=== PATIENT | female | born 1965 | race Caucasian/White ===

== ENCOUNTER → 2016-05-09 | Outpatient (CLI) | payer OTHER ==
[~2016-05-09] MED LIST: ALBINS INH; ALBU1AER9 INH; ALBU1NEB10 INH; ALL180 PO; ALUM-30; AMOX500T PO; AMOX875T PO; ATOR10TA88 PO; CALC500T67 PO; CLOT1CRE12 TOP; CLX20 PO; DEXT15LI10 PO; DEXT40GE PO; DOXY100C76 PO; FLUC150T54 PO; FLVHFA110 INH; FURO-85 PO; GFNSR600 PO; GLGKIT IM; IBUP600T44 PO; IMD/2 PO; INSDGI SC; INSPMPNVLG; LEVO150T9 PO; MAGNSUS5 PO; MULTTAB63 PO; OXGN; PRLSR20 PO; PROM12.57 PO; PSEU30TA20 PO; SALM50AE2 INH; SNG10 PO; SODI0.9S; SULF-183 PO; SULF800T23 PO; TYLOTC500 PO; VNTHFA/IN INH; ZINC1CAP PO; [UNRECOGNIZED DRUG - CODE]; [UNRECOGNIZED DRUG - CODE] PO; [UNRECOGNIZED DRUG - CODE] PO; hydrocortisone cream
--- NOTE | 2016-05-09 12:04 | DIAGNOSTIC IMAGING REPORT ---
CHEST 2 VIEWS ROUTINE CLINICAL HISTORY: ASTHMA dyspnea COMPARISON STUDY: 01/13/2016 FINDINGS: Tracheostomy tube in good position. Central catheter in superior vena cava. Subtle bibasilar interstitial prominence considered chronic. No focal infiltrative process. Lateral projection suggests a possible extreme posterior minimal infiltrate. This may be in the left lower lobe distribution. IMPRESSION: Minimal parenchymal infiltrate medial aspect left lower lobe. Electronically signed by: Benjamin Cheung M.D. 05/09/2016 12:02 PM Dictated Date/Time: 05/09/2016 12:01 PM
== END | disposition home or self-care (01) ==
LOC: C.RADBBURG 00:34
PROVIDERS: ATTEND Internal Medicine
DX: J45.909 Unspecified asthma, uncomplicated (principal)

== ENCOUNTER → 2016-05-17 | Outpatient (CLI) | payer OTHER ==
--- NOTE | 2016-05-17 12:10 | DIAGNOSTIC IMAGING REPORT ---
CHEST 2 VIEWS ROUTINE CLINICAL HISTORY: J20.9 Acute bsqckidqtiN82.9 [id number] dyspnea COMPARISON STUDY: 05/09/2016 FINDINGS: Tracheostomy tube in good position. Central catheter ends. Cava. Lungs are clear. Diaphragms smooth. IMPRESSION: No acute process. Chronic and postoperative change. Electronically signed by: Benjamin Cheung M.D. 05/17/2016 12:09 PM Dictated Date/Time: 05/17/2016 12:08 PM
== END | disposition home or self-care (01) ==
LOC: C.RADBBURG 04:04
PROVIDERS: ATTEND Internal Medicine Pulmonary Disease
DX: J18.9 Pneumonia, unspecified organism (principal)

== ENCOUNTER → 2016-07-30 | Outpatient (CLI) | payer OTHER ==
[~2016-07-30] MED LIST changes: +ALBINS/ INH; +ATOR10TA82 PO; -ATOR10TA88 PO; +CALC-211 PO; +CITA40TA12 PO; +CLOT1CRE80 TOP; +DEXT4CHW64 PO; +DOXY1TAB6 PO; +FEXO1TAB46 PO; +GUAI1TAB55 PO; +LEVO1TAB33 PO; +LEVO1TAB35 PO; +MONT1TAB3 PO; +PRD20 PO; +PRED10TA PO; +SRVDIN60 INH; +[UNRECOGNIZED DRUG - CODE]
== END | disposition home or self-care (01) ==
LOC: C.LABSPEC 10:05
PROVIDERS: ATTEND Physician Assistant
DX: R05 Cough (principal)

== ENCOUNTER → 2016-08-04 | Outpatient (CLI) | payer OTHER ==
[~2016-08-04] MED LIST changes: +INSU1INJ23 SQ; +INSU1SOL SQ
--- NOTE | 2016-08-04 13:05 | DIAGNOSTIC IMAGING REPORT ---
CHEST 2 VIEWS ROUTINE CLINICAL HISTORY: R05 Cough cough COMPARISON STUDY: 05/17/2016 FINDINGS: Tracheostomy tube in good position. Central catheters. Vena cava. Mild chronic basilar interstitial change. Potential small superimposed infiltrate left base. Baseline emphysematous changes present. IMPRESSION: Interstitial infiltrate left base superimposed upon chronic change. Electronically signed by: Benjamin Cheung M.D. 08/04/2016 1:04 PM Dictated Date/Time: 08/04/2016 1:03 PM
== END | disposition home or self-care (01) ==
LOC: C.RAD 12:35
PROVIDERS: ATTEND Physician Assistant
DX: R05 Cough (principal); J84.9 Interstitial pulmonary disease, unspecified

== ENCOUNTER → 2016-09-04 | Outpatient (CLI) | payer OTHER ==
--- NOTE | 2016-09-04 16:43 | MAMMOGRAPHY REPORT ---
BILATERAL DIGITAL SCREENING MAMMOGRAM WITH CAD: 09/04/2016 CLINICAL HISTORY: Routine screening. Patient has no complaints. TECHNIQUE: Bilateral CC and MLO views were obtained. Current study was also evaluated with a Compute r Aided Detection (CAD) system. COMPARISON: Comparison is made to exams dated: 09/02/2015 mammogram, 08/31/2014 mammogram, 08/20/2013 ma mmogram, 08/19/2012 mammogram, 08/14/2011 mammogram, and 08/08/2009 mammogram - [facility] ter. BREAST COMPOSITION: The tissue of both breasts is heterogeneously dense, which may obscure small mas ses. FINDINGS: The parenchymal pattern is similar to prior mammograms. There is a benign rim calcificatio n in the right breast. No suspicious mass, architectural distortion or cluster of suspicious microca lcifications is seen. IMPRESSION: ACR BI-RADS CATEGORY 1: NEGATIVE There is no mammographic evidence of malignancy. A 1 year screening mammogram is recommended. The pa tient will receive written notification of the results. Approximately 10% of breast cancers are not detected with mammography. A negative mammographic report should not delay biopsy if a clinically suggestive mass is present. Tiffani Kerns M.D. ay/:09/04/2016 16:04:02 Plumber: Lashanda Galaviz, [facility] letter sent: Normal 1/2 BI-RADS Code: ACR BI-RADS Category 1: Negative
== END | disposition home or self-care (01) ==
LOC: C.MAMM 15:33
PROVIDERS: ATTEND Internal Medicine
DX: Z12.31 Encounter for screening mammogram for malignant neoplasm of breast (principal)

== ENCOUNTER → 2016-09-10 | Outpatient (CLI) | payer OTHER ==
[2016-09-10 16:47] LABS: PROTHROMBIN TIME (PATIENT) 10.4 SECONDS (9.0-12.0)
[2016-09-10 17:10] LABS: BASO % 0.6 %; BASO ABS # 0.03 K/uL (0-0.2); COMPLETE YES; HEMATOCRIT 38.3 % (37-47); IG% 0.2 %; MEAN CELL VOLUME 102.7 fL (80-100); MEAN CORPUSCULAR HEMOGLOBIN 34.3 pg (25-34); MEAN CORPUSCULAR HGB CONC 33.4 g/dl (32-36); MEAN PLATELET VOLUME 10.1 fL (7.4-10.4); MONO % 6.2 %; PLATELET COUNT 222 K/uL (130-400); RED BLOOD COUNT 3.73 M/uL (4.2-5.4); WHITE BLOOD COUNT 4.83 K/uL (4.8-10.8)
[2016-09-10 17:22] LABS: ALT/SGPT 31 U/L (12-78); AST/SGOT 15 U/L (15-37); BLOOD UREA NITROGEN 23 mg/dl (7-18); BUN/CREATININE RATIO 24.8 (10-20); CALCIUM 9.3 mg/dl (8.5-10.1); CARBON DIOXIDE 33 mmol/L (21-32); CHLORIDE 104 mmol/L (98-107); CREATININE 0.92 mg/dl (0.60-1.20); GLUCOSE 231 mg/dl (70-99); POTASSIUM 5.3 mmol/L (3.5-5.1); SODIUM 140 mmol/L (136-145)
[2016-09-10 17:24] LABS: ALB/GLOB RATIO 0.9 (0.9-2); ALKALINE PHOSPHATASE 104 U/L (45-117)
== END | disposition home or self-care (01) ==
LOC: C.LAB 15:57
PROVIDERS: ATTEND Physician Assistant
DX: Z87.09 Personal history of other diseases of the respiratory system (principal)

== ENCOUNTER 2016-09-19 08:44 | Day surgery (SDC) | payer OTHER ==
[2016-09-19] VITALS (14 sets, daily range): BP systolic 92–129; BP diastolic 56–79; PULSE 47–77; TEMP 36.4–36.8; O2SAT 93–100; Ht 144.8 cm; Wt 63.5 kg
[~2016-09-19] VITALS: Ht 144.8 cm; Wt 63.5 kg
[~2016-09-19 08:44] MED LIST changes: -ALBINS/ INH; -AMOX500T PO; -AMOX875T PO; -ATOR10TA82 PO; -CALC-211 PO; -CITA40TA12 PO; -CLOT1CRE80 TOP; -DEXT4CHW64 PO; -DOXY1TAB6 PO; -FEXO1TAB46 PO; -GUAI1TAB55 PO; -INSU1INJ23 SQ; -INSU1SOL SQ; -LEVO1TAB33 PO; -LEVO1TAB35 PO; -MONT1TAB3 PO; -PRD20 PO; -PRED10TA PO; -SODI0.9S; -SRVDIN60 INH; -SULF-183 PO; -SULF800T23 PO; -VNTHFA/IN INH; -[UNRECOGNIZED DRUG - CODE]; -[UNRECOGNIZED DRUG - CODE] PO
[2016-09-19] MEDS ORDERED: FENTANYL CITRATE 100 MCG 2 ML CARP IV ONE (08:45)
[2016-09-19] MEDS ORDERED: LIDOCAINE HCL 2% LOCAL 50ML VIAL INFIL ONE (08:45)
[2016-09-19] MEDS ORDERED: MIDAZOLAM HCL 1 MG/ML 2ML VIAL IV ONE (08:45)
--- NOTE | 2016-09-19 09:35 | History and Physical ---
History & Physical Date Sep 19, 2016. Chief Complaint This is a 51 y/o female with acute on chronic bronchitis/bronchiectasis with difficulty clearing her thick mucus production. History of Present Illness This is a 51 y/o female with acute on chronic bronchitis/bronchiectasis with difficulty clearing her thick mucus production. She has a history of chronic congestion requiring hospitalizations. The team is attempting bronchoscopic intervention to avoid a hospitalization. Previosuly the patient has grown out in her sputum/respiratory tract: E-coli (drug resistant) Active Problems 1. Acute/Chronic bronchitis 2. Micro Sputum: E-coli, Serratia Marcescens, MRSA Urine: E-coli 3. Anemia 4. Bed wetting 5. Cough 6. Depression 7. Diabetes mellitus 8. Diabetic hypoglycemia 9. Esophageal reflux 10. Generalized osteoarthritis of multiple sites 11. Hypothyroidism 12. Mammogram abnormal 13. Menopausal and perimenopausal disorder 14. Morbid obesity 15. Muscle tension 16. Obstructive sleep apnea 17. Patent foramen ovale Past Medical/Surgical History Medical Problems: (1) ASTHMA, UNSPECIFIED (2) CONGESTIVE HEART FAILURE (3) DIAB UVALDO WO COMPL, TYPE I [JUVENILE TYPE], NOT UNCNTRLD (4) DOWN'S SYNDROME (5) SOB (shortness of breath) Additional History Hepatic Disease: No Endocrine Disorder: Yes Kidney Disease: No Hypertension: No Heart Disease: No Bleeding Tendencies: No Infectious Diseases: Yes Allergies Coded Allergies: Cefaclor (Verified Allergy, Unknown, HIVES, 06/08/16) TOLERATED ZOSYN IN PAST ADMISSION AND 05/17/15 Cephalosporins (Verified Allergy, Unknown, unknown, 06/08/16) TOLERATED ZOSYN IN PAST ADMISSION AND 05/17/15 Sertraline (Verified Allergy, Unknown, INTOLERANCE, 06/08/16) Home Medications Scheduled Albuterol (Proair Hfa), 2 PUFF INH QID PRN Albuterol 0.083% Soln (Ventolin 0.083% Soln *), 1 AMP INH TID Albuterol Sulf (Albuterol Sulfate 0.083% For Inh), 3 ML INH TID Alum & Mag Hydrox-Simethicone (Mylanta), 4 TSP UD Calcium Carbonate-Vitamin D (Oyst-Eliceo-D 500), 1 TAB PO TID Citalopram (Celexa *), 40 MG PO QPM Doxycycline Monohydrate (Monodox), 100 MG PO UD Fexofenadine Hcl (Danielle *), 180 MG PO QAM Fluticasone Propionate (Flovent Hfa 110MCG Inhaler *), 2 PUFF INH BID Guaifenesin (Diabetic Tussin), 1 DOSE cough Guaifenesin Ext Rel (Mucinex Ext Rel *), 600 MG PO BID Home O2 Therapy (Oxygen), 4 LITERS NA PRN Insulin Aspart (novoLOG INSULIN PUMP ), 1 EA N/A UD Levothyroxine Sodium (Levothyroxine Sodium), 150 MCG PO QAM Montelukast (Singulair *), 10 MG PO HS Multiple Vitamins W/ Minerals (Therems M), 1 TAB PO QAM Omeprazole (Prilosec), 20 MG PO QAM Salmeterol Xinafoate Inh (Serevent Diskus Inh), 1 PUFF INH BID Sodium Fluoride (Dental) (Phos-Flur), 0.5 OZ PO HS Zinc Sulfate (Zinc Sulfate), 220 MG PO BID Scheduled PRN Acetaminophen (Tylenol), 1,000 MG PO Q6H PRN for Pain Clotrimazole Vaginal (Clotrimazole), 1 APPLN TOP TID PRN for IRRITAION AROUN TUBE Dextrose (Diabetic Use) (Dex4 Glucose), 1 TAB PO DAILY PRN for LOW BLOOD SUGAR Dextrose (Diabetic Use) (Insta-Glucose), 1 TUBE PO DAILY PRN for LOW BLOOD SUGAR Fluconazole (Diflucan), 150 MG PO DIRECTED PRN for UNKN Furosemide (Lasix), 20 MG PO DAILY PRN for WEIGHT GAIN Glucagon (Glucagon Emergency Kit), 1 MG IM for UNRESPONSIVE Ibuprofen (Motrin), 600 MG PO TID PRN for Pain Insulin Glargine (Lantus), 0 SC AMPM PRN for INSULIN PUM MALFUNCTION Loperamide Hcl (Imodium), 2 MG PO UD PRN for Diarrhea Magnesium Hydroxide (Milk Of Magnesia), 30 ML PO Q12 PRN for Constipation Promethazine (Phenergan ), 12.5 MG PO Q8 PRN for Nausea or Vomiting Pseudoephedrine (Sudafed), 30 MG PO Q4H PRN for runny nose [hydrocortisone cream], 1 APPLN UD PRN for rash Physical Examination Skin: warm/dry, no rash Eyes: normal inspection, EOMI, sclerae normal ENT: + pertinent finding (metal Antonio renee traceh in place) Head: normocephalic, atraumatic Neck: supple, no adenopathy, trachea midline Respiratory/Chest: lungs clear, normal breath sounds, no respiratory distress Cardiovascular: regular rate, rhythm, no edema, no murmur Abdomen / GI: normal bowel sounds, non tender Back: normal inspection Extremities: normal inspection, normal range of motion Neurologic/Psych: no motor/sensory deficits, alert, normal reflexes, oriented x 3 ASA Classification: ASA Class III Plan of Treatment Bronchoscopy with BAL
--- NOTE | 2016-09-19 09:41 | History & Physical Bridge Note ---
H&P Re-Evaluation Bridge Note: I have examined the patient, reviewed the History & Physical and in the interval since the performance of the History & Physical I have noted the following changes of clinical significance: No changes noted
--- NOTE | 2016-09-19 09:47 | Procedure Note ---
Pre-Mod Sedation Assessment General Date of Moderate Sedation: Sep 19, 2016. Review Cardiovascular: regular rate, rhythm, no edema, no gallop, no JVD, no murmur Abdomen: normal bowel sounds, non tender, soft, no organomegaly, no pulsatile mass Lungs: chest non-tender, + pertinent finding (decreased BS bilaterally ) Pre-Sedation Airway Assessment Smoking Status: Never Smoker Notes The planned sedation has been discussed with the patient and consent obtained. I have identified the patient, determined the appropriateness of sedation and have assessed the patient immediately prior to the procedure. All medicine(s) and interventions are by my order.
[2016-09-19] MEDS ORDERED: ATOR10TA88 PO (09:53)
[2016-09-19] MEDS ORDERED: SULF800T23 PO (09:57)
[2016-09-19] MEDS ORDERED: AMOX875T PO (09:57)
[2016-09-19] MEDS ORDERED: AMOX500T PO (09:57)
[2016-09-19] MEDS ORDERED: SODIUM CHLORIDE 0.9% 1000ML 1,000 ML IV SCH (10:45)
[2016-09-19] MEDS ORDERED: NURSING VERBAL MED ORDER ONE ×2 (10:45→11:45)
[2016-09-19 10:59] LABS: BUN/CREATININE RATIO 21.7 (10-20); CALCIUM 8.4 mg/dl (8.5-10.1); CREATININE 0.96 mg/dl (0.60-1.20); POTASSIUM 4.9 mmol/L (3.5-5.1)
--- NOTE | 2016-09-19 11:36 | Bronchoscopy Procedure Note ---
Bronchoscopy Procedure Note Procedure: Bronchoscopy, conscious sedation, BAL (HUNTER) Consent: Obtained through the patient placed into the chart Pre-procedural diagnosis: chronic bronchiectasis and proximal tracheal stenosis Post-procedural diagnosis: chronic bronchiectasis and proximal tracheal stenosis Start time: 1107 End time: 1116 Total time: 9 minutes Analgesia: 2% liquid lidocaine: Via nebulizer 4% gel lidocaine: Via right naris 2% liquid lidocaine: Via bronchoscopy Sedation: Versed IV: 2 mg Fentanyl IV: 50 g Procedure: The Olympus video bronchoscope was used for this procedure and passed down through the right naris Right naris/posterior naris/posterior oropharynx: Anatomically within normal limits Glottis: Anatomically within normal limits Vocal cords: Proper abduction and abduction, anatomically within normal limits Subglottis: Anatomically within normal limits Trachea: proximal tracheal at the sight of the ostomy with notable stenosis bilaterally but able to pass the bronchoscope past with the Antonio Prat in place, multiple mucus plugs Anastasiia: Anatomically within normal limits, large mucus plug Right bronchial tree: Right mainstem bronchus: Anatomically within normal limits Right upper lobe: Anatomically within normal limits Bronchus intermedius: Anatomically within normal limits Right middle lobe: Anatomically within normal limits Right lower lobe: Anatomically within normal limits Findings: diffuse mucus plugging especially in the RLL & RML Left bronchial tree: Left mainstem bronchus: Anatomically within normal limits Left upper lobe: external collapse/narrowing at the opening to the HUNTER & Lingula Lingula: external collapse/narrowing at the opening to the HUNTER & Lingula Left lower lobe: external collapse/narrowing at the opening most sever at the take-off to the superior subsegment Findings: diffuse mucus plugging Bronchial alveolar lavage: HUNTER EBL: none Complications: None Follow-up: In the [facility]
--- NOTE | 2016-09-19 11:36 | Procedure Note ---
Post-Moderate Sedation Plan General Date of Moderate Sedation Sep 19, 2016. Vital Signs: Vital Signs Past 12 Hours Date Time Temp Pulse Resp B/P (MAP) Pulse Ox O2 Delivery O2 Flow Rate FiO2 09/19/16 11:25 49 18 118/64 98 Nasal Cannula 6.0 09/19/16 11:20 54 20 117/66 97 Mask 8.0 09/19/16 11:15 77 18 124/62 100 Mask 8.0 09/19/16 11:10 59 21 110/69 100 Mask 8.0 09/19/16 11:05 57 20 129/76 100 Mask 8.0 09/19/16 10:58 51 21 123/64 100 Mask 8.0 09/19/16 10:44 36.6 47 20 94/57 97 Room Air 09/19/16 10:15 36.6 47 20 94/57 (69) 97 Room Air Review - Discharge Plan Post Moderate Sedation Plan: On clinical assessment, the patient appears to have tolerated the conscious sedation without complications. Patient is recovering as anticipated. Patient will continue to be monitored by nursing and may be discharged when conscious sedation discharge criteria are met.
--- NOTE | 2016-09-19 11:39 | Discharge Instructions ---
Discharge Instructions Date of Service Sep 19, 2016. 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 Instructions / Follow-Up Instructions / Follow-Up Follow-Up at the [place] [facility] Diet Patient's current hospital diet: Discharge Diet Recommended Diet: Regular Diet Procedures Procedures Performed: Bronchoscopy with bronchial lavage of the left upper lobe Pending Studies Studies pending at discharge: no Medical Emergencies . Who to Call and When: Medical Emergencies: If at any time you feel your situation is an emergency, please call 911 immediately. . Non-Emergent Contact Non-Emergency issues call your: [employer] Call Non-Emergent contact if: temperature is above 101.5 . . "Provider Documentation" section prepared by Raz Ozuna. . VTE Core Measure Inpt VTE Proph given/why not?: Treatment not indicated
[2016-09-19] MEDS ORDERED: MIDAZOLAM HCL 5 MG/ML 1 ML VIAL IV ONE (12:00)
[2016-09-19] MEDS ORDERED: FENTANYL CITRATE INJ 50 MCG/1 ML 2 ML VIAL IV ONE (12:00)
[2016-11-15] MEDS ORDERED: [UNRECOGNIZED DRUG - CODE] PO (12:21)
[2016-11-15] MEDS ORDERED: SULF-183 PO (12:41)
[2016-11-15] MEDS ORDERED: MULTTAB63 PO (12:41)
[2016-11-15] MEDS ORDERED: SODI0.9S (12:41)
[2016-11-15] MEDS ORDERED: VNTHFA/IN INH (12:41)
== END 2016-09-19 13:32 | disposition home or self-care (01) ==
LOC: C.ACU 08:44
PROVIDERS: ATTEND Internal Medicine Critical Care Medicine
DX: J42 Unspecified chronic bronchitis (principal); J39.8 Other specified diseases of upper respiratory tract; E11.9 Type 2 diabetes mellitus without complications; D64.9 Anemia, unspecified; K21.9 Gastro-esophageal reflux disease without esophagitis; G47.33 Obstructive sleep apnea (adult) (pediatric); E03.9 Hypothyroidism, unspecified; Q21.1 Atrial septal defect; M15.9 Polyosteoarthritis, unspecified; E66.01 Morbid (severe) obesity due to excess calories; I50.9 Heart failure, unspecified; Q90.9 Down syndrome, unspecified; Z79.4 Long term (current) use of insulin; Z79.899 Other long term (current) drug therapy

== ENCOUNTER → 2016-10-25 | Outpatient (CLI) | payer OTHER ==
[~2016-10-25] MED LIST changes: +AMOX875T PO; +ATOR10TA88 PO; +SODI0.9S; +SULF-183 PO; +SULF800T23 PO; +VNTHFA/IN INH; +[UNRECOGNIZED DRUG - CODE] PO
--- NOTE | 2016-10-25 14:54 | DIAGNOSTIC IMAGING REPORT ---
CHEST 2 VIEWS ROUTINE CLINICAL HISTORY: AMBULATORY DYSFUNCTION COMPARISON STUDY: 08/04/2016 FINDINGS: There is a right-sided A-Port catheter. A tracheostomy tube is visualized. The heart is normal in size. There is a suspected right-sided aortic arch. There is a left-sided cardiac apex. There is no focal pulmonary consolidation. There is minor chronic interstitial thickening. There are no pleural effusions. There is no failure.[ IMPRESSION: Right aortic arch. No active disease in the chest. Electronically signed by: Kevon Law M.D. 10/25/2016 2:52 PM Dictated Date/Time: 10/25/2016 2:50 PM
[2016-10-25 15:43] LABS: BASO ABS # 0.05 K/uL (0-0.2); COMPLETE YES; HEMATOCRIT 40.8 % (37-47); IG% 0.2 %; LYMPH % 31.9 %; LYMPH ABS # 1.53 K/uL (1.2-3.4); MEAN CELL VOLUME 104.1 fL (80-100); MEAN CORPUSCULAR HEMOGLOBIN 33.2 pg (25-34); MEAN CORPUSCULAR HGB CONC 31.9 g/dl (32-36); MEAN PLATELET VOLUME 10.1 fL (7.4-10.4); MONO % 6.9 %; PLATELET COUNT 229 K/uL (130-400); RED BLOOD COUNT 3.92 M/uL (4.2-5.4); WHITE BLOOD COUNT 4.79 K/uL (4.8-10.8)
[2016-10-25 16:12] LABS: ALT/SGPT 43 U/L (12-78); AST/SGOT 20 U/L (15-37); BLOOD UREA NITROGEN 24 mg/dl (7-18); BUN/CREATININE RATIO 24.4 (10-20); CALCIUM 8.9 mg/dl (8.5-10.1); CARBON DIOXIDE 32 mmol/L (21-32); CHLORIDE 106 mmol/L (98-107); CHOLESTEROL 142 mg/dl (0-200); CREATININE 0.99 mg/dl (0.60-1.20); GLUCOSE 196 mg/dl (70-99); POTASSIUM 4.5 mmol/L (3.5-5.1); SODIUM 142 mmol/L (136-145); TRIGLYCERIDES 81 mg/dl (0-150); VERY LOW DENSITY LIPOPROT CALC 16 mg/dl
[2016-10-25 16:20] LABS: ALB/GLOB RATIO 0.9 (0.9-2); ALKALINE PHOSPHATASE 102 U/L (45-117); CHOLESTEROL/HDL RATIO 2.1; FERRITIN 92.4 ng/ml (8.0-388.0); HDL CHOLESTEROL 68 mg/dl; LDL CHOLESTEROL CALCULATED 58 mg/dl; TOTAL IRON BINDING CAPACITY 228 mcg/dl (250-450)
== END | disposition home or self-care (01) ==
LOC: C.LAB1850 14:24
PROVIDERS: ATTEND Physician Assistant
DX: D64.9 Anemia, unspecified (principal); E03.9 Hypothyroidism, unspecified; E11.9 Type 2 diabetes mellitus without complications; E87.6 Hypokalemia; R26.2 Difficulty in walking, not elsewhere classified

== ENCOUNTER 2017-02-19 13:04 | Inpatient (IN) | payer OTHER ==
[~2017-02-19] VITALS: Ht 144.8 cm; Wt 63.5 kg
[~2017-02-19 13:04] MED LIST changes: -ALUM-30; +ATOR10TA82 PO; -ATOR10TA88 PO; -IMD/2 PO; -LEVO150T9 PO; -MAGNSUS5 PO; -PRLSR20 PO; -PSEU30TA20 PO; -SULF800T23 PO; -ZINC1CAP PO; -[UNRECOGNIZED DRUG - CODE]; -hydrocortisone cream
[2017-02-19] MEDS ORDERED: METHYLPREDNISOLONE 125 MG VIAL IV STA (13:29)
[2017-02-19] MEDS ORDERED: ALBUT/IPRATROP 3MG/0.5MG NEB 3 ML VIAL INH ONE (13:30)
--- NOTE | 2017-02-19 13:44 | EMERGENCY ROOM VISIT NOTE ---
History First contact with patient: 13:15 Chief Complaint: RESPIRATORY PROBLEMS Stated Complaint: WHEEZING, PULSE OX 90%, ON ATB AND PREDNISONE History of Present Illness The patient is a 51 year old female who presents to the Emergency Room with complaints of wheezing, shortness of breath for approximately 5 days. The patient has a history of Down's syndrome. She is here with a caregiver. According to the caregiver, she has had a productive cough. She has been on a prednisone taper and Levaquin for the last 5 days with no improvement. The patient has a history of a tracheostomy in the . She also has a history of asthma, and has tested positive for MRSA in the past. She is typically on prophylactic antibiotics on a daily basis. These are currently on hold as she is taking Levaquin. The patient has used her nebulizer treatment with no relief. She is on 4 L of oxygen per nasal cannula at night. According to the caregiver, she has been hypoxic in the low 80%'s. No reported fever. Review of Systems 10 system review performed and negative unless noted in HPI or below. This was performed with a caregiver. Past Medical/Surgical History Medical Problems: (1) ASTHMA, UNSPECIFIED (2) CONGESTIVE HEART FAILURE (3) DIAB UVALDO WO COMPL, TYPE I [JUVENILE TYPE], NOT UNCNTRLD (4) DOWN'S SYNDROME (5) Pneumonia (6) SOB (shortness of breath) Family History No pertinent family history Social History Smoking Status: Never Smoker Drug Use: none Housing Status: other Occupation Status: disabled Current/Historical Medications Scheduled Albuterol Sulf (Proventil 0.083% 2.5MG/3ML), 2.5 MG INH TID Atorvastatin (Lipitor), 10 MG PO QPM Calcium Carbonate-Cholecalcife (Oyster Shell Calcium + D), 1 TAB PO TID Citalopram Hydrobromide (Celexa), 40 MG PO DAILY Doxycycline Hyclate (Doxycycline Hyclate), 100 MG PO DAILY Fexofenadine Hcl (Danielle), 180 MG PO HS Fluticasone Propionate (Flovent Hfa), 2 PUFFS INH AMHS Guaifenesin Ext Rel (Mucinex Ext Rel), 600 MG PO Q12 Home O2 Therapy (Oxygen), 4 LITERS NA PRN Insulin Aspart (novoLOG INSULIN PUMP ), 1 EA N/A UD Levofloxacin (Levaquin), 500 MG PO DAILY Levothyroxine Sodium (Levothyroxine Sodium), 150 MCG PO QAM Montelukast Sodium (Singulair), 10 MG PO HS Multiple Vitamins W/ Minerals (Therems M), 1 TAB PO DAILY Omeprazole (Prilosec), 20 MG PO QAM Prednisone Tab (Prednisone), 1 DOSE PO UD Salmeterol Xinafoate (Serevent Diskus), 1 PUFF INH AMPM Sodium Chloride (Gu Irrigant) (Sodium Chloride 0.9%), DAILY Sodium Fluoride (Dental) (Phos-Flur), 0.5 OZ PO HS Zinc Sulfate (Zinc Sulfate), 220 MG PO AMHS Scheduled PRN Acetaminophen (Tylenol), 1,000 MG PO Q6H PRN for GENERAL DISCOMFORT Albuterol Hfa (Ventolin Hfa), 2 PUFFS INH QID PRN for Shortness of Breath Amoxicillin & Pot Clavulanate (Augmentin 875-125 mg), 1 TAB PO Q12 PRN for INCREASED COUGH/SPUTUM Clotrimazole (Topical) (Anti-Fungal), 1 APPLN TOP TID PRN for RASH Dextrose (Diabetic Use) (Insta-Glucose), 1 TUBE PO UD PRN for LOW BLOOD SUGAR EPISODES Fluconazole (Diflucan), 150 MG PO DIRECTED PRN for YEAST INFECTION Furosemide (Lasix), 20 MG PO DAILY PRN for WEIGHT GAIN Glucagon (Glucagon Emergency Kit), 1 MG IM for UNRESPONSIVE Glucose-Vitamin C (Dex4), 1 TAB PO DAILY PRN for LOW BLOOD SUGARS Ibuprofen (Motrin), 600 MG PO TID PRN for Pain Insulin Glargine (Lantus), 0 SC UD PRN for PUMP MALFUNCTION Promethazine (Phenergan ), 12.5 MG PO Q8 PRN for Nausea or Vomiting Physical Exam Vital Signs Date Time Temp Pulse Resp B/P (MAP) Pulse Ox O2 Delivery O2 Flow Rate FiO2 02/19/17 16:00 97 20 110/47 93 Nasal Cannula 5.0 02/19/17 14:25 64 16 92 Nasal Cannula 3.0 02/19/17 14:01 62 20 102/70 94 Nasal Cannula 4.0 02/19/17 13:08 36.4 89 18 95/63 83 Room Air Physical Exam GENERAL: 51-year-old female, in no acute distress, nondiaphoretic, well- developed well-nourished. SKIN: The skin was without rashes, erythema, edema, or bruising. HEAD: Normocephalic atraumatic. MOUTH: Mucous membranes moist. No exudate noted on the tongue. Airway is patent. NECK: Supple without nuchal rigidity. No lymphadenopathy. Cervical spine is nontender. No JVD. HEART: Regular rate and rhythm without murmurs gallops or rubs. LUNGS: Diffuse wheeze noted. Rhonchorous breath sounds. No tachypnea. She is noted to be hypoxic. No crackles at the bases. ABDOMEN: Positive bowel sounds x 4.Soft, MUSCULOSKELETAL: No muscle atrophy, erythema, or edema noted. Strength 5/5 throughout. NEURO: Patient was alert and answering questions appropriately. No focal neurological deficits. Medical Decision & Procedures ER Provider Diagnostic Interpretation: Chest x-ray IMPRESSION: Bibasilar airspace opacities likely represent atelectasis. Correlate clinically for evidence of superimposed pneumonia. Electronically signed by: Saroj Naqvi M.D. 02/19/2017 2:23 PM Dictated Date/Time: 02/19/2017 2:21 PM The status of this report is Signed. Draft = Not yet reviewed or approved by Radiologist. Signed = Reviewed and approved by Radiologist. <AttendingPhy></AttendingPhy> <FamilyPhy>Vladimir Lucio M.D.</FamilyPhy> < PrimaryPhy>Vladimir Lucio M.D.</PrimaryPhy> <UnitNumber>[id number]</UnitNumber > <VisitNumber>[id number]</VisitNumber> <PatientName>YVONNE WASHINGTON</ PatientName> <DateOfBirth>1965</DateOfBirth> <Location>[facility]</Location> < ServiceDate>02/19/17</ServiceDate> <MNE>ESINDI</MNE> <OrderingPhy>Alicia Boateng PA-C</OrderingPhy> <OrderingPhyMNE>f rep ord dr Laboratory Results 02/19/17 13:50 Red Blood Count 3.73, Mean Corpuscular Volume 102.4, Mean Corpuscular Hemoglobin 34.0, Mean Corpuscular Hemoglobin Concent 33.2, Mean Platelet Volume 10.2, Neutrophils (%) (Auto) 91.9, Lymphocytes (%) (Auto) 6.3, Monocytes (%) ( Auto) 1.3, Eosinophils (%) (Auto) 0.0, Basophils (%) (Auto) 0.2, Neutrophils # ( Auto) 10.15, Lymphocytes # (Auto) 0.70, Monocytes # (Auto) 0.14, Eosinophils # ( Auto) 0.00, Basophils # (Auto) 0.02 02/19/17 13:50 Test 02/19/17 13:34 02/19/17 13:50 Influenza Type A (RT-PCR) Neg for Influ A (NEG) Influenza Type B (RT-PCR) Neg for Influ B (NEG) White Blood Count 11.04 K/uL (4.8-10.8) Red Blood Count 3.73 M/uL (4.2-5.4) Hemoglobin 12.7 g/dL (12.0-16.0) Hematocrit 38.2 % (37-47) Mean Corpuscular Volume 102.4 fL (80-100) Mean Corpuscular Hemoglobin 34.0 pg (25-34) Mean Corpuscular Hemoglobin Concent 33.2 g/dl (32-36) Platelet Count 222 K/uL (130-400) Mean Platelet Volume 10.2 fL (7.4-10.4) Neutrophils (%) (Auto) 91.9 % Lymphocytes (%) (Auto) 6.3 % Monocytes (%) (Auto) 1.3 % Eosinophils (%) (Auto) 0.0 % Basophils (%) (Auto) 0.2 % Neutrophils # (Auto) 10.15 K/uL (1.4-6.5) Lymphocytes # (Auto) 0.70 K/uL (1.2-3.4) Monocytes # (Auto) 0.14 K/uL (0.11-0.59) Eosinophils # (Auto) 0.00 K/uL (0-0.5) Basophils # (Auto) 0.02 K/uL (0-0.2) RDW Standard Deviation 50.8 fL (36.4-46.3) RDW Coefficient of Variation 13.6 % (11.5-14.5) Immature Granulocyte % (Auto) 0.3 % Immature Granulocyte # (Auto) 0.03 K/uL (0.00-0.02) Anion Gap 6.0 mmol/L (3-11) Est Creatinine Clear Calc Drug Dose 46.7 ml/min Estimated GFR () 69.9 Estimated GFR (Non- 60.3 BUN/Creatinine Ratio 27.7 (10-20) Calcium Level 9.1 mg/dl (8.5-10.1) Total Bilirubin 0.3 mg/dl (0.2-1) Aspartate Amino Transf (AST/SGOT) 6 U/L (15-37) Alanine Aminotransferase (ALT/SGPT) 23 U/L (12-78) Alkaline Phosphatase 112 U/L (45-117) Pro-B-Type Natriuretic Peptide 150 pg/ml (0-900) Total Protein 7.2 gm/dl (6.4-8.2) Albumin 3.0 gm/dl (3.4-5.0) Globulin 4.2 gm/dl (2.5-4.0) Albumin/Globulin Ratio 0.7 (0.9-2) Beta-Hydroxybutyric Acid 1.25 mg/dL (0.2-2.81) Medications Administered Medications (Trade) Dose Ordered Sig/Rene Route Start Time Stop Time Status Last Admin Dose Admin Methylprednisolone Sodium Succinate (Solu-Medrol IV) 125 mg NOW STAT IV 02/19/17 13:29 02/19/17 13:31 DC 02/19/17 14:01 125 MG Albuterol/ Ipratropium (Duoneb) 12 ml ONE ONCE INH 02/19/17 13:30 02/19/17 13:31 DC 02/19/17 16:04 12 ML Cefepime HCl 2000 mg/Syringe 20 ml @ 5 mls/min NOW STAT IV 02/19/17 15:12 02/19/17 15:15 DC 02/19/17 16:02 5 MLS/MIN Vancomycin HCl 1250 mg/Sodium Chloride 275 ml @ 125 mls/hr NOW STAT IV 02/19/17 15:13 02/19/17 17:24 DC 02/19/17 16:03 125 MLS/HR ECG Indication: chest pain Rate (beats per minute): 62 Rhythm: normal sinus ED Course Patient was seen and examined Vital signs including blood pressure were reviewed medications list was verified with patient Labs were obtained, and a saline lock was established The patient was given Solu-Medrol 125 mg IV. She was given an hour-long DuoNeb. Imaging was performed and reviewed Upon reassessment, the patient was receiving her hour-long DuoNeb. She said her breathing is improved. We discussed the results of her workup. She and her caregiver voiced understanding. The patient was also seen and examined by myself supervising physician, Dr. Fraire The case was discussed with pharmacy. She was ordered 1 dose of vancomycin and cefepime IV The case was then discussed with case management. I also spoke with the [facility] service, who agreed to admit the patient for further workup and treatment. Medical Decision Differential diagnosis: Bronchitis, pneumonia, influenza, asthma exacerbation This patient is a 51-year-old female with a history of Down syndrome status post tracheostomy presents emergency department with cough, shortness of breath and hypoxia. On exam, she did have diffuse wheezing and rhonchi. She was significantly hypoxic. Chest x-rays consistent with possible bibasilar atelectasis versus pneumonia. Given her current symptoms, I think this is likely a bibasilar pneumonia. The patient has had a history of MRSA in the past. She is on chronic prophylaxis. She was covered with vancomycin and cefepime. I do not feel comfortable sending the patient home. She is currently failing outpatient therapy with Levaquin and prednisone. Believe she likely needs to be admitted to the hospital for further treatment. The patient' s caregiver is in agreement with this plan. She will be admitted to the [facility] service. This chart was completed in part utilizing [employer] Speech Voice Recognition software. Attempts were made to minimize the grammatical errors, random word insertions, pronoun errors and incomplete sentences. Any formal questions or concerns about the content, text or information contained within the body of this dictation should be directly addressed to the provider for clarification. Medication Reconcilliation Current Medication List: was personally reviewed by me Blood Pressure Screening Patient's blood pressure: Low blood pressure Consults Consulting Physician: [facility] Impression Primary Impression: Pneumonia Departure Information Referrals Pro,Vladimir Pennington M.D. (PCP) Patient Instructions My [facility]
[2017-02-19 14:09] LABS: BASO % 0.2 %; BASO ABS # 0.02 K/uL (0-0.2); COMPLETE YES; HEMATOCRIT 38.2 % (37-47); IG% 0.3 %; LYMPH % 6.3 %; MEAN CELL VOLUME 102.4 fL (80-100); MEAN CORPUSCULAR HGB CONC 33.2 g/dl (32-36); MEAN PLATELET VOLUME 10.2 fL (7.4-10.4); MONO % 1.3 %; NEUT % 91.9 %; PLATELET COUNT 222 K/uL (130-400); RED BLOOD COUNT 3.73 M/uL (4.2-5.4); WHITE BLOOD COUNT 11.04 K/uL (4.8-10.8)
--- NOTE | 2017-02-19 14:24 | DIAGNOSTIC IMAGING REPORT ---
TWO VIEW CHEST CLINICAL HISTORY: Cough and dyspnea.. FINDINGS: PA and lateral chest radiographs are compared to study dated 10/25/2016 and correlated with chest CT dated 05/20/2015. A tracheostomy tube and a right subclavian central venous infusion port are unchanged in position. The cardiomediastinal silhouette is unremarkable. I basilar airspace opacities are noted. No pleural effusion is identified. There is no pneumothorax. The skeletal structures are osteopenic. There are healed bilateral rib fractures. IMPRESSION: Bibasilar airspace opacities likely represent atelectasis. Correlate clinically for evidence of superimposed pneumonia. Electronically signed by: Saroj Naqvi M.D. 02/19/2017 2:23 PM Dictated Date/Time: 02/19/2017 2:21 PM
[2017-02-19 14:25] VITALS: PULSE 64; O2SAT 92
[2017-02-19 14:38] LABS: ALB/GLOB RATIO 0.7 (0.9-2); BUN/CREATININE RATIO 27.7 (10-20); CALCIUM 9.1 mg/dl (8.5-10.1); CREATININE 1.06 mg/dl (0.60-1.20); POTASSIUM 4.1 mmol/L (3.5-5.1)
[2017-02-19 14:45] LABS: INFLUENZA A PCR Neg for Influ A (NEG); INFLUENZA B PCR Neg for Influ B (NEG)
[2017-02-19 14:56] LABS: BETA-HYDROXYBUTYRATE 1.25 mg/dL (0.2-2.81)
[2017-02-19] MEDS ORDERED: CEFEPIME IV 2,000 MG in SYRINGE 7.5 ML IV STA (15:12)
[2017-02-19] MEDS ORDERED: VANCOMYCIN INJ 1,250 MG in SODIUM CHLORIDE 0.9% 250ML 250 ML IV STA (15:13)
[2017-02-19] MEDS ORDERED: DOXY1TAB6 PO (15:41)
[2017-02-19] MEDS ORDERED: PRED10TA PO (15:41)
[2017-02-19] MEDS ORDERED: FEXO1TAB46 PO (15:41)
[2017-02-19] MEDS ORDERED: CITA40TA12 PO (15:41)
[2017-02-19] MEDS ORDERED: MONT1TAB3 PO (15:41)
[2017-02-19] MEDS ORDERED: CALC-211 PO (15:41)
[2017-02-19] MEDS ORDERED: SRVDIN60 INH (15:41)
[2017-02-19] MEDS ORDERED: INSDGI SC (15:41)
[2017-02-19] MEDS ORDERED: FLVHFA110 INH (15:41)
[2017-02-19] MEDS ORDERED: LEVO1TAB33 PO (15:41)
[2017-02-19] MEDS ORDERED: GUAI1TAB55 PO (15:41)
[2017-02-19] MEDS ORDERED: LEVO150T9 PO (15:41)
[2017-02-19] MEDS ORDERED: PRLSR20 PO (15:41)
[2017-02-19] MEDS ORDERED: ALBINS/ INH (15:41)
[2017-02-19] MEDS ORDERED: CLOT1CRE80 TOP (15:41)
[2017-02-19] MEDS ORDERED: DEXT4CHW64 PO (15:44)
[2017-02-19] MEDS ORDERED: DEXT40GE PO (15:44)
[2017-02-19] MEDS ORDERED: [UNRECOGNIZED DRUG - CODE] (15:45)
[2017-02-19] MEDS ORDERED: GLUCOSE 40% GEL 15 GM TUBE PO PRN (16:30)
[2017-02-19] MEDS ORDERED: ACETAMINOPHEN 325 MG TAB PO PRN (16:30)
[2017-02-19] MEDS ORDERED: ALUMINUM/MAGNESIUM/SIMETH (MAALOX MAX) 30 ML UDC PO PRN (16:30)
[2017-02-19] MEDS ORDERED: DEXTROSE 50% 50 ML SYR IV PRN (16:30)
[2017-02-19] MEDS ORDERED: MAGNESIUM HYDROXIDE SUSP 30 ML UDC PO PRN (16:30)
[2017-02-19] MEDS ORDERED: POLYETHYLENE (MIRALAX) 17 GM PACK PO PRN (16:30)
[2017-02-19] MEDS ORDERED: GLUCOSE 10 TABS/TUBE PO PRN (16:30)
[2017-02-19] MEDS ORDERED: GLUCAGON FOR INJ 1 MG VIAL SQ PRN (16:30)
[2017-02-19] MEDS ORDERED: ONDANSETRON INJ 2 MG/ML 2 ML VIAL IV PRN (16:30)
--- NOTE | 2017-02-19 17:11 | History and Physical ---
History & Physical Date & Time of Service: Feb 19, 2017 at 16:54 Chief Complaint: Wheezing, Pulse Ox 90%, On Atb And Prednisone Primary Care Physician: Vladimir Lucio M.D. History of Present Illness Source: patient, caregiver, clinic records, hospital records This is a 51 y/o female with a history of Down syndrome, asthma, tracheostomy ( circa 1997 or 1998), recurrent respiratory infections, DM I, depression, hypothyroidism, CAMILLA, and GERD who presented to the ED on 02/19 with worsening shortness of breath and wheezing. The patient commonly has recurrent respiratory infections during winter and is on chronic prophylactic antibiotics. She typically alternates doxycycline 100 mg PO qd and Bactrim DS 1 tab qd every other month. Due to worsening shortness of breath, the patient was recently started on Levaquin and a Prednisone taper, which she started 1 week ago. The caregiver reports that the treatment did help to improve the patient's productive cough, but her shortness of breath and wheezing persisted. The patient typically only wears 4L oxygen at nighttime for CAMILLA, but today her saturation drop to 90%, and she was placed on O2 during the day. The patient complains of shortness of breath, wheezing, generalized weakness and fatigue. She currently denies cough. The patient denies fevers, chills, sweats , chest pain, palpitations, claudication, cough, nausea, vomiting, abdominal pain, dysuria, hematuria, urinary retention, paralysis, weakness, numbness and tingling. Past Medical/Surgical History Medical Problems: (1) ASTHMA, UNSPECIFIED Status: Chronic (2) CONGESTIVE HEART FAILURE Status: Chronic (3) DIAB UVALDO WO COMPL, TYPE I [JUVENILE TYPE], NOT UNCNTRLD Status: Chronic (4) DOWN'S SYNDROME Status: Chronic S/p tracheostomy Depression Hypothyroidism CAMILLA GERD Family History Myocardial infarction Social History Smoking Status: Never Smoker Smokeless Tobacco Use: No Alcohol Use: none Drug Use: none Housing status: assisted living (long term with caregivers) Occupational Status: disabled Immunizations History of Influenza Vaccine: N/A Influenza Vaccine Date: Dec 18, 2005 History of Tetanus Vaccine?: Unknown Tetanus Immunization Date: May 22, 2001 History of Pneumococcal: Yes Pneumococcal Date: August 15, 2012 History of Hepatitis B Vaccine: No Multi-Drug Resistant Organisms History of MDRO: Yes Allergies Coded Allergies: Cephalosporins (Verified Allergy, Intermediate, rash per mother, 12/27/16) TOLERATED ZOSYN IN PAST ADMISSION AND 05/17/15 Cefaclor (Verified Allergy, Unknown, HIVES, 02/19/17) TOLERATED ZOSYN IN PAST ADMISSION AND 05/17/15 Sertraline (Verified Allergy, Unknown, INTOLERANCE, 12/27/16) Home Medications Scheduled Albuterol Sulf (Proventil 0.083% 2.5MG/3ML), 2.5 MG INH TID Atorvastatin (Lipitor), 10 MG PO QPM Calcium Carbonate-Cholecalcife (Oyster Shell Calcium + D), 1 TAB PO TID Citalopram Hydrobromide (Celexa), 40 MG PO DAILY Doxycycline Hyclate (Doxycycline Hyclate), 100 MG PO DAILY Fexofenadine Hcl (Danielle), 180 MG PO HS Fluticasone Propionate (Flovent Hfa), 2 PUFFS INH AMHS Guaifenesin Ext Rel (Mucinex Ext Rel), 600 MG PO Q12 Home O2 Therapy (Oxygen), 4 LITERS NA PRN Insulin Aspart (novoLOG INSULIN PUMP ), 1 EA N/A UD Levofloxacin (Levaquin), 500 MG PO DAILY Levothyroxine Sodium (Levothyroxine Sodium), 150 MCG PO QAM Montelukast Sodium (Singulair), 10 MG PO HS Multiple Vitamins W/ Minerals (Therems M), 1 TAB PO DAILY Omeprazole (Prilosec), 20 MG PO QAM Prednisone Tab (Prednisone), 1 DOSE PO UD Salmeterol Xinafoate (Serevent Diskus), 1 PUFF INH AMPM Sodium Chloride (Gu Irrigant) (Sodium Chloride 0.9%), DAILY Sodium Fluoride (Dental) (Phos-Flur), 0.5 OZ PO HS Zinc Sulfate (Zinc Sulfate), 220 MG PO AMHS Scheduled PRN Acetaminophen (Tylenol), 1,000 MG PO Q6H PRN for GENERAL DISCOMFORT Albuterol Hfa (Ventolin Hfa), 2 PUFFS INH QID PRN for Shortness of Breath Amoxicillin & Pot Clavulanate (Augmentin 875-125 mg), 1 TAB PO Q12 PRN for INCREASED COUGH/SPUTUM Clotrimazole (Topical) (Anti-Fungal), 1 APPLN TOP TID PRN for RASH Dextrose (Diabetic Use) (Insta-Glucose), 1 TUBE PO UD PRN for LOW BLOOD SUGAR EPISODES Fluconazole (Diflucan), 150 MG PO DIRECTED PRN for YEAST INFECTION Furosemide (Lasix), 20 MG PO DAILY PRN for WEIGHT GAIN Glucagon (Glucagon Emergency Kit), 1 MG IM for UNRESPONSIVE Glucose-Vitamin C (Dex4), 1 TAB PO DAILY PRN for LOW BLOOD SUGARS Ibuprofen (Motrin), 600 MG PO TID PRN for Pain Insulin Glargine (Lantus), 0 SC UD PRN for PUMP MALFUNCTION Promethazine (Phenergan ), 12.5 MG PO Q8 PRN for Nausea or Vomiting Review of Systems Constitutional: +Generalized weakness, fatigue. No fever, No chills, No sweats Eyes: No worsening of vision, No eye pain, No diplopia ENT: No hearing loss, No nasal symptoms, No trouble swallowing Respiratory: +Wheezing, SOB. No cough Cardiovascular: No chest pain, No claudication, No palpitations Abdomen: No pain, No nausea, No vomiting Musculoskeletal: No joint pain, No muscle pain, No swelling Genitourinary - Female: No dysuria, No urinary retention, No hematuria Neurologic: No paralysis, No weakness, No numbness/tingling Integumentary: No rash, No itch, No color change Physical Exam Vital Signs Date Time Temp Pulse Resp B/P (MAP) Pulse Ox O2 Delivery O2 Flow Rate FiO2 02/19/17 16:00 97 20 110/47 93 Nasal Cannula 5.0 02/19/17 14:25 64 16 92 Nasal Cannula 3.0 02/19/17 14:01 62 20 102/70 94 Nasal Cannula 4.0 02/19/17 13:08 36.4 89 18 95/63 83 Room Air General appearance: Well-developed, well-nourished, no apparent distress Head: Normocephalic, atraumatic Eyes: Normal inspection, PERRL, EOMI ENT: Normal ENT inspection, hearing grossly normal, pharynx normal Neck: Supple, no JVD, trachea midline Respiratory/Chest: +Diminished breath sounds. Lungs clear to auscultation, no respiratory distress Cardiovascular: +Systolic murmur. Regular rate & rhythm, no gallop Abdomen/GI: +Mild diffuse tenderness. Normal bowel sounds, soft Extremities/Musculoskeletal: Normal inspection, no calf tenderness, no pedal edema Neurological/Psych: +Disoriented to year but knew current month. At baseline per caregiver. Alert, normal mood/affect, oriented x 2 Skin: Normal color, warm/dry, no rash Diagnostics Laboratory Results Results Past 24 Hours Test 02/19/17 13:34 02/19/17 13:50 02/19/17 16:29 Range/Units Influenza Type A (RT-PCR) Neg for Influ A NEG Influenza Type B (RT-PCR) Neg for Influ B NEG White Blood Count 11.04 4.8-10.8 K/uL Red Blood Count 3.73 4.2-5.4 M/uL Hemoglobin 12.7 12.0-16.0 g/dL Hematocrit 38.2 37-47 % Mean Corpuscular Volume 102.4 80-100 fL Mean Corpuscular Hemoglobin 34.0 25-34 pg Mean Corpuscular Hemoglobin Concent 33.2 32-36 g/dl Platelet Count 222 130-400 K/uL Mean Platelet Volume 10.2 7.4-10.4 fL Neutrophils (%) (Auto) 91.9 % Lymphocytes (%) (Auto) 6.3 % Monocytes (%) (Auto) 1.3 % Eosinophils (%) (Auto) 0.0 % Basophils (%) (Auto) 0.2 % Neutrophils # (Auto) 10.15 1.4-6.5 K/uL Lymphocytes # (Auto) 0.70 1.2-3.4 K/uL Monocytes # (Auto) 0.14 0.11-0.59 K/uL Eosinophils # (Auto) 0.00 0-0.5 K/uL Basophils # (Auto) 0.02 0-0.2 K/uL RDW Standard Deviation 50.8 36.4-46.3 fL RDW Coefficient of Variation 13.6 11.5-14.5 % Immature Granulocyte % (Auto) 0.3 % Immature Granulocyte # (Auto) 0.03 0.00-0.02 K/uL Sodium Level 137 136-145 mmol/L Potassium Level 4.1 3.5-5.1 mmol/L Chloride Level 99 98-107 mmol/L Carbon Dioxide Level 31 21-32 mmol/L Anion Gap 6.0 3-11 mmol/L Blood Urea Nitrogen 29 7-18 mg/dl Creatinine 1.06 0.60-1.20 mg/dl Est Creatinine Clear Calc Drug Dose 46.7 ml/min Estimated GFR () 69.9 Estimated GFR (Non- 60.3 BUN/Creatinine Ratio 27.7 10-20 Random Glucose 374 70-99 mg/dl Calcium Level 9.1 8.5-10.1 mg/dl Total Bilirubin 0.3 0.2-1 mg/dl Aspartate Amino Transf (AST/SGOT) 6 15-37 U/L Alanine Aminotransferase (ALT/SGPT) 23 12-78 U/L Alkaline Phosphatase 112 45-117 U/L Total Protein 7.2 6.4-8.2 gm/dl Albumin 3.0 3.4-5.0 gm/dl Globulin 4.2 2.5-4.0 gm/dl Albumin/Globulin Ratio 0.7 0.9-2 Beta-Hydroxybutyric Acid 1.25 0.2-2.81 mg/dL Diagnostic Radiology Reviewed the following studies and agree with interpretation as follows: TWO VIEW CHEST CLINICAL HISTORY: Cough and dyspnea.. FINDINGS: PA and lateral chest radiographs are compared to study dated 10/25/2016 and correlated with chest CT dated 05/20/2015. A tracheostomy tube and a right subclavian central venous infusion port are unchanged in position. The cardiomediastinal silhouette is unremarkable. I basilar airspace opacities are noted. No pleural effusion is identified. There is no pneumothorax. The skeletal structures are osteopenic. There are healed bilateral rib fractures. IMPRESSION: Bibasilar airspace opacities likely represent atelectasis. Correlate clinically for evidence of superimposed pneumonia. EKG Reviewed EKG and agree with interpretation as follows: 62 bpm, NSR Impression Assessment and Plan 51 y/o female with a history of Down syndrome, asthma, tracheostomy (circa 1997 or 1998), recurrent respiratory infections, DM I, depression, hypothyroidism, CAMILLA, and GERD who presented to the ED on 02/19 with worsening shortness of breath and wheezing. Pt afebrile but hypoxic on arrival with saturation of 83% on room air. Pt does not typically wear oxygen while awake. Saturations up to mid 90s on 4-5L NC. CXR shows bibasilar opacities, atelectasis vs superimposed PNA. WBC 11.04. BSG 374. Caregiver states sugars had been up to 500 yesterday due to Prednisone. Labs otherwise grossly unremarkable. Pt received vanc and cefepime in ED as well as loading dose of Solu-Medrol. Bilateral pneumonia, hypoxia--pt lives in long term. Pt does have h/o MRSA -Admit to telemetry -O2 by protocol -Continue vancomycin, cefepime 2 gm IV q12h and Levaquin 750 mg IV q48h for renal dosing. Listed ceph allergy but tolerated cefepime in ED -DuoNebs QIDR and q2h prn SOB/wheezing -Solu-Medrol 80 mg IV q8h -Check BNP. Has h/o CHF per EMR however last echo reviewed which showed EF 60- 65%. Right ventricle did have moderate to severe dilation. Pt has prn Lasix for 3 lb weight gain but per caregiver has never needed to use -Hold home Bactrim and doxy Asthma -Continue Danielle, Singulair, Flovent 2 puffs inh BID and Serevent 1 puff inh BID DM I--last HgbA1c in 2016 -Consult pharmacy for glycemic control. Pt uses insulin pump -Check BSGs q ac and qhs -Recheck HgbA1c in am Depression -Continue citalopram 40 mg PO qd Hypothyroidism -Continue Synthroid 150 mcg PO qd GERD -Prilosec converted to Protonix DVT prophylaxis -Enoxaparin 40 mg SC q24h -ARELI Mendoza Code Status -Level I, FULL RESUSCITATION STATUS Level of Care Telemetry Resuscitation Status FULL RESUSCITATION VTE Prophylaxis VTE Risk Assessment Done? Y/N: Yes Risk Level: Moderate Given or contraindicated: Enoxaparin (Lovenox)SQ, T.E.D. Stockings, SCD's
[2017-02-19] MEDS ORDERED: PHARMACY GLYCEMIC MGMT CONSULT PRN (17:42)
[2017-02-19 18:45] VITALS: BP 110/69; PULSE 93; TEMP 36.6; O2SAT 94; BMI 29.1
[2017-02-19] MEDS ORDERED: ZINC1CAP PO (19:13)
[2017-02-19] MEDS ORDERED: ALBUT/IPRATROP 3MG/0.5MG NEB 3 ML VIAL INH PRN (19:30)
[2017-02-19] MEDS: INSULIN ASPART 100 UNITS/ML 3 ML PEN SC SCH ×2 (19:30→21:00)
--- NOTE | 2017-02-19 19:33 | EMERGENCY ROOM VISIT NOTE ---
ED Visit Note First contact with patient: 13:15 I have personally evaluated this patient examined her and reviewed the pertinent labs and data. I have discussed the case with Alicia Boateng, the physician certified surgical first assistant and agree with the plan. Please refer to the PA note. This patient comes in after having continuing cough she's been on antibiotics as an outpatient. She does have a trach and also has diabetes. On my exam, her lungs sound rhonchorous and she was given neb treatments. Chest x-ray shows atelectasis or infiltrates in the bases. We did give her broad-spectrum antibiotics as guided by our ED pharmacist. She was hypoxemic in triage at 83 % and I do think she needs to be admitted for further treatment and evaluation of her pneumonia.
[2017-02-19 20:00] VITALS: O2SAT 94
[2017-02-19] MEDS: ALBUT/IPRATROP 3MG/0.5MG NEB 3 ML VIAL INH SCH (20:36)
[2017-02-19 20:38] VITALS: PULSE 91; O2SAT 90
[2017-02-19 20:59] LABS: BETA-HYDROXYBUTYRATE 37.19 mg/dL (0.2-2.81)
[2017-02-19] MEDS ORDERED: LEVOFLOXACIN / D5W 750 MG in PREMIXED IN D5W 150 ML IV SCH (21:00)
[2017-02-19] MEDS ORDERED: INSULIN GLARGINE SOLOSTAR 100 UNITS/ML 3 ML PEN SC SCH (21:00)
[2017-02-19] MEDS: SALMETEROL XINAFOATE 50MCG 28 BLISTER INH INH SCH (21:05)
[2017-02-19] MEDS: GUAIFENESIN 600 MG TABCR PO SCH (21:06)
[2017-02-19] MEDS: ATORVASTATIN 10 MG TAB PO SCH (21:07)
[2017-02-19] MEDS: MONTELUKAST SOD 10 MG TAB PO SCH (21:08)
[2017-02-19] MEDS: ZINC SULFATE 220 MG CAP PO SCH (21:09)
[2017-02-19] MEDS: FEXOFENADINE HCL 180 MG TAB PO SCH (21:09)
--- NOTE | 2017-02-19 21:09 | Pharmacy Progress Note ---
Pharmacy Abx Initial Consult Date of Service Feb 19, 2017. Pharmacy Dosing Scope Date of Consult: 02/19/17 Consultation requested by: Quirino Penny PA-C Pharmacy is consulted to initiate Vancomycin IV dosing therapy, order appropriate labs and adjust drug dose/frequency. Subjective The patient is a 51 year old female admitted on Feb 19, 2017 at 16:49. Objective Height (Feet): 4 Height (Inches): 9.00 Weight (Kilograms): 61.000 Vital Signs (Past 12Hrs) Vital Signs Past 12 Hours Date Time Temp Pulse Resp B/P (MAP) Pulse Ox O2 Delivery O2 Flow Rate FiO2 02/19/17 20:38 91 16 90 Nasal Cannula 5.0 02/19/17 18:45 36.6 93 20 110/69 94 Nasal Cannula 5.0 02/19/17 18:00 86 20 112/58 91 Room Air 02/19/17 16:00 97 20 110/47 93 Nasal Cannula 5.0 02/19/17 14:25 64 16 92 Nasal Cannula 3.0 02/19/17 14:01 62 20 102/70 94 Nasal Cannula 4.0 02/19/17 13:08 36.4 89 18 95/63 83 Room Air Lab Results (24Hrs) Laboratory Tests (24 Hours) Test 02/19/17 13:50 White Blood Count 11.04 K/uL (4.8-10.8) H Red Blood Count 3.73 M/uL (4.2-5.4) L Hemoglobin 12.7 g/dL (12.0-16.0) Hematocrit 38.2 % (37-47) Mean Corpuscular Volume 102.4 fL (80-100) H Mean Corpuscular Hemoglobin 34.0 pg (25-34) Mean Corpuscular Hemoglobin Concent 33.2 g/dl (32-36) Platelet Count 222 K/uL (130-400) Mean Platelet Volume 10.2 fL (7.4-10.4) Neutrophils (%) (Auto) 91.9 % Lymphocytes (%) (Auto) 6.3 % Monocytes (%) (Auto) 1.3 % Eosinophils (%) (Auto) 0.0 % Basophils (%) (Auto) 0.2 % Neutrophils # (Auto) 10.15 K/uL (1.4-6.5) H Lymphocytes # (Auto) 0.70 K/uL (1.2-3.4) L Monocytes # (Auto) 0.14 K/uL (0.11-0.59) Eosinophils # (Auto) 0.00 K/uL (0-0.5) Basophils # (Auto) 0.02 K/uL (0-0.2) Risk Factors for Resistance * Resident at assisted living, [facility] * History of infection with MRSA * Antimicrobial use within the last 90 days; levaquin, bactrim, doxy Assessment & Plan Assessment 51 yo female with h/o of Down syndrome, asthma, tracheostomy (circa 1997 or 1998 ) and recurrent respiratory infections admitted with b/l pneumonia. * Recently placed on Levaquin + prednisone taper * Pt usually alternates doxycycline daily x 1 month with Bactrim daily x 1 month * of note, pt has h/o of MRSA and E.coli (resistant to FQ and Bactrim) Plan Vancomycin, Cefepime and Levaquin IV for treatment of pneumonia: Vancomycin IV * Loading dose: 1250 mg IV (given in ER) * Maintenance dose: 1000 mg IV (16 mg/kg) every 18 hours * will start maintenance dose 16 hours after loading dose since pt received a 20 mg/kg load * Goal trough level for pnx : 15 to 20 mcg/mL * Trough level ordered for 02/21/17 * Ordered MRSA nasal swab to guide de-escalation Cefepime & Levaquin - not pharm consult Thank you.
[2017-02-19] MEDS ORDERED: INSULIN IV INFUSION PROTOCOL STA (21:12)
[2017-02-19 21:15] LABS: PROTHROMBIN TIME (PATIENT) 10.4 SECONDS (9.0-12.0)
[2017-02-19] MEDS ORDERED: INSULIN PROTOCOL GOAL RANGE ONE (21:15)
[2017-02-19] MEDS ORDERED: INSULIN REGULAR 250 UNITS in SODIUM CHLORIDE 0.9% 250ML 250 ML IV SCH (21:30)
[2017-02-19] MEDS ORDERED: INSULIN HUMAN REGULAR IV BOLUS 2.5 UNIT in SYRINGE 0 ML IV SCH (21:30)
[2017-02-19] MEDS: FLUTICASONE HFA 110MCG INHALER INH SCH (21:39)
[2017-02-19] MEDS: METHYLPREDNISOLONE IV 80 MG in SYRINGE 0 ML IV SCH (22:03)
--- NOTE | 2017-02-19 22:13 | Pharmacy Progress Note ---
Pharmacy Glycemic Short Note 2 Date of Service Feb 19, 2017. OUTPATIENT ANTIDIABETIC REGIMEN: * NovoLog insulin pump * Verified outpatient rates with caregiver Sofia * Basal rates vary every 3 hrs from 0.25 - 0.6 units/hr (total basal insulin dose = 9.6 units/day) * Bolus * SF: 65 during the day and 70 at HS * CR: 1: 15 * Goal range 100 -140 mg/dl ASSESSMENT: * 51yo T1DM with SEVERE hyperglycemia secondary to infection & steroids * Pt with a history of "brittle diabetes" and frequent BSG swings per caregiver * Degree of outpatient control unknown - will order A1c per protocol * Pt does not know how to manage her own pump (caregiver manages pump). Even if pt was able to manage pump, it would likely not be able to treat this degree of hyperglycemia (now + ketones). Aggressive SQ basal bolus + drip needed at this time. * d/w patient's caregiver, nursing, and hospitalist. Will hold outpatient pump and utilize SQ basal bolus insulin regimen. IV insulin infusion needed short term for severe hyperglycemia PLAN FOR INPATIENT GLYCEMIC CONTROL: * Hold outpatient SQ insulin pump * Basal insulin: continue with drip * Lantus 12 units SQ HS * Bolus insulin: used "tightened" outpatient fixed CR instead of CR per insulin calculator * Nutritional / Prandial insulin per carb ratio of 1 unit per 13 grams CHO consumed * IV insulin infusion per protocol to serve as "correctional insulin" for severe hyperglycemia * Goal range 100 - 160 mg/dl * Severe stress * Will d/c IV insulin infusion when BSGs sustained in goal range * HbA1c with AM labs
[2017-02-20] VITALS (15 sets, daily range): BP systolic 82–122; BP diastolic 57–72; PULSE 66–92; TEMP 36.2–37.4; O2SAT 90–96; BMI 30.3
[2017-02-20 00:07] LABS: BETA-HYDROXYBUTYRATE 30.98 mg/dL (0.2-2.81)
[2017-02-20] MEDS ORDERED: CEFEPIME IV 2,000 MG in DEXTROSE 5% 100ML 100 ML IV SCH (04:00)
[2017-02-20] MEDS: CEFEPIME IV 2,000 MG in SYRINGE 7.5 ML IV SCH ×2 (04:26→17:42)
[2017-02-20 06:32] LABS: HEMATOCRIT 36.7 % (37-47); MEAN CELL VOLUME 101.9 fL (80-100); MEAN CORPUSCULAR HEMOGLOBIN 34.7 pg (25-34); MEAN CORPUSCULAR HGB CONC 34.1 g/dl (32-36); PLATELET COUNT 226 K/uL (130-400); WHITE BLOOD COUNT 10.65 K/uL (4.8-10.8)
[2017-02-20] MEDS: METHYLPREDNISOLONE IV 80 MG in SYRINGE 0 ML IV SCH ×3 (06:36→21:04)
[2017-02-20] MEDS: LEVOTHYROXINE 150 MCG TAB PO SCH (06:36)
[2017-02-20 06:55] LABS: ESTIMATED AVERAGE GLUCOSE 246 mg/dl; HA1C FLAG Normal (Normal)
[2017-02-20 07:11] LABS: BUN/CREATININE RATIO 27.3 (10-20); CALCIUM 9.1 mg/dl (8.5-10.1); CREATININE 1.12 mg/dl (0.60-1.20)
[2017-02-20] MEDS: ALBUT/IPRATROP 3MG/0.5MG NEB 3 ML VIAL INH SCH ×4 (07:14→20:08)
--- NOTE | 2017-02-20 07:34 | Family Medicine Progress Note ---
Progress Note Date of Service Feb 20, 2017. Subjective Pt evaluation today including: conversation w/ patient, physical exam, chart review, lab review Pt seen and examined at bedside with mom and nephew in the room. Patient is pleasant and is answering questions. Telemetry showed sinus in the 70s and 80s. Pt is eating well. States she is at her clinical baseline. Her trach is in place. All questions answered. Constitutional: No fever, No chills, No sweats, No weight loss ENT: No hearing loss Respiratory: + cough, No sputum, No wheezing, No shortness of breath, No dyspnea on exertion Cardiovascular: No chest pain Abdomen: No pain, No nausea, No vomiting, No diarrhea Female : No dysuria Objective Physical Exam General Appearance: WD/WN, no apparent distress Eyes: PERRL, EOMI ENT: + pertinent finding (trach in place) Respiratory/Chest: chest non-tender, no respiratory distress, no accessory muscle use, + pertinent finding (coarse lung sounds in [place]) Cardiovascular: regular rate, rhythm, no edema, no gallop, no JVD, no murmur Abdomen: normal bowel sounds, non tender, soft, no organomegaly, no pulsatile mass Extremities: normal range of motion, non-tender, normal inspection, no pedal edema, no calf tenderness Neurologic/Psychiatric: supervisor crack off II-XII nml as tested, no motor/sensory deficits, alert, normal mood/affect, oriented x 3 Skin: no rash Assessment and Plan 51F with a history of Down syndrome, asthma, tracheostomy (circa 1997 or 1998), recurrent respiratory infections, DM I on an insulin pump, depression, hypothyroidism, CAMILLA, and GERD who presented to the ED on 02/19 with worsening shortness of breath and wheezing. Pt afebrile but hypoxic on arrival with saturation of 83% on room air. Pt does not typically wear oxygen while awake. Saturations up to mid 90s on 4-5L NC. CXR shows bibasilar opacities, atelectasis vs superimposed PNA. WBC 11.04. BSG 374. HBA1C was 10.2. Caregiver states sugars had been up to 500 yesterday due to Prednisone. Labs otherwise grossly unremarkable. Pt received vanc and cefepime in ED as well as loading dose of Solu-Medrol. Suspected MRSA pneumonia, pt lives in senior living. 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 -Continue vancomycin, cefepime 2 gm IV q12h and Levaquin 750 mg IV q48h for renal dosing. Listed ceph allergy but tolerated cefepime in ED. Day #1. - c/w DuoNebs QIDR and q2h prn SOB/wheezing -c/w Solu-Medrol 80 mg IV q8h -BNP was 150 so not in CHF. -Hold home Bactrim and doxy Asthma -Continue Danielle, Singulair, Flovent 2 puffs inh BID and Serevent 1 puff inh BID DM I--last HgbA1c in 2016 -Consult pharmacy for glycemic control. Pt uses insulin pump -Check BSGs q ac and qhs -HBA1C was 10.2, placed Diet Tech consult. Depression -Continue citalopram 40 mg PO qd Hypothyroidism -Continue Synthroid 150 mcg PO qd GERD -Prilosec converted to Protonix Congenital Trach stenosis - Keep clean and patent. Chronic Diastolic CHF - Continue to monitor on tele. HLD - c/w Lipitor 10mg daily. DVT prophylaxis -Enoxaparin 40 mg SC q24h -ARELI thomas and SCDs FULL CODE. Resident Physician Supervision Note: I was present with the resident during the history and exam. I discussed the case with the resident and agree with the findings and plan as documented in the note. Documented By: Deon Best Resident Involvement: Resident Care Provided Care Provided: Adult Hospital Medicine
[2017-02-20] MEDS: INSULIN ASPART 100 UNITS/ML 3 ML PEN SC SCH ×4 (08:01→21:00)
[2017-02-20] MEDS: PANTOprazole SOD 40 MG TAB PO SCH (08:02)
[2017-02-20] MEDS: CEROVITE ADV FORMULA TAB PO SCH (08:02)
[2017-02-20] MEDS: FLUTICASONE HFA 110MCG INHALER INH SCH ×2 (08:03→20:59)
[2017-02-20] MEDS: GUAIFENESIN 600 MG TABCR PO SCH ×2 (08:03→21:03)
[2017-02-20] MEDS: SALMETEROL XINAFOATE 50MCG 28 BLISTER INH INH SCH ×2 (08:03→20:59)
[2017-02-20] MEDS: ZINC SULFATE 220 MG CAP PO SCH ×2 (08:03→21:03)
[2017-02-20] MEDS: ENOXAPARIN 40 MG/0.4 ML SYR SC SCH (08:04)
[2017-02-20] MEDS: VANCOMYCIN INJ 1,000 MG in SODIUM CHLORIDE 0.9% 250ML 250 ML IV SCH (08:07)
--- NOTE | 2017-02-20 10:22 | Clinical Documentation Query ---
Dr. HOLLY, IRENE : CLINICAL DOCUMENTATION QUERIES QUERY 1 OF 3 Patient is a 51 year old female with a history of Down syndrome, recurrent respiratory infections, tracheal stenosis, tracheostomy, and history of MRSA, admitted for evaluation and treatment of worsening SOB and wheezing. CXR demonstrated bibasilar opacities, atelectasis vs. superimposed PNA. WBC elevated. In your clinical opinion is this patient being managed for: ( x ) (Possible/Suspected/Likely) Aspiration and/or MRSA pneumonia ( ) Not Agree ( ) Other explanation of clinical findings (Please Explain) ( ) Unable to determine (Please Define) ( ) Need to Discuss The medical record reflects the following clinical findings, treatment, and risk factors. Clinical Indicators: As above Treatment: Vancomycin, Cefepime, Levaquin, Solumedrol, nebs Risk Factors: Down syndrome, history of recurrent respiratory infections, chronic suppressive antibiotics, lives in a half-way, history of MRSA, tracheal stenosis, GERD QUERY 2 OF 3 Historical documentation includes a history of tracheal stenosis with tracheostomy status dating back to 1998. As appropriate, consider inclusion in progress notes as this affects severity of illness and risk of mortality. Thank you. In your clinical opinion is this patient being managed for: (via tracheostomy) ( x) Congenital tracheal stenosis ( ) Not Agree ( ) Other explanation of clinical findings (Please Explain) ( ) Unable to determine (Please Define) ( ) Need to Discuss The medical record reflects the following clinical findings, treatment, and risk factors. Clinical Indicators: As above. Chronic aspiration, trachestomy status Treatment: Trachestomy Risk Factors: Tracheal stenosis QUERY 3 OF 3 Record includes documentation of chronic CHF, not otherwise specified. Echocardiogram from 05/17/15 demonstrated normal biventricular systolic function, RV pressure/volume overload, and a moderately to severely dilated RV. As appropriate, consider documentation as suggested below. Thank you. In your clinical opinion is this patient being managed for: ( x ) Chronic diastolic CHF ( ) Not Agree ( ) Other explanation of clinical findings (Please Explain) ( ) Unable to determine (Please Define) ( ) Need to Discuss The medical record reflects the following clinical findings, treatment, and risk factors. Clinical Indicators: As above Treatment: PRN Lasix, PRN home O2 therapy Risk Factors: Obesity, Down syndrome Please clarify and document your clinical opinion in the progress notes and discharge summary. Terms such as "probable", "suspected", "likely", "questionable", "possible", or "still to be ruled out" are acceptable. IF IN AGREEMENT, YOU MUST DOCUMENT ABOVE DIAGNOSTIC STATEMENT IN DAILY PROGRESS NOTES AND DISCHARGE SUMMARY. This document is not part of the patient's record. Thank You, Adis Card RN [phone]
--- NOTE | 2017-02-20 11:13 | Pharmacy Progress Note ---
Pharmacy Glycemic Short Note 2 Date of Service Feb 20, 2017. OUTPATIENT ANTIDIABETIC REGIMEN: * NovoLog insulin pump * Verified outpatient rates with caregiver Sofia * Basal rates vary every 3 hrs from 0.25 - 0.6 units/hr (total basal insulin dose = 9.6 units/day) * Bolus * SF: 65 during the day and 70 at HS * CR: 1: 15 * Goal range 100 -140 mg/dl ASSESSMENT: * Patient currently on an insulin drip at ~8 units/hr -> significantly higher than outpatient insulin requirements. Of note, nurse noted to me this AM that patient was having additional food in between meals. * Also receiving Lantus 12 units qHS and a set CR of 1 unit per 13 gm CHO as the initial plan was to transition to SQ basal/bolus once BSGs improved * At this point, BSGs are still elevated and patient is requiring significantly more than outpatient needs so I am inclined to keep the drip on in addition to the Lantus and Novolog * I did tighten the set CR with lunch today since it appeared that the CR of 13 was not enough PLAN FOR INPATIENT GLYCEMIC CONTROL: * Continue insulin drip - loosen goal range to 110-180 mg/dL to allow for less titration/accuchecks * Continue Lantus 12 units qHS * Continue set dose of Novolog with meals but tighten to 1 unit per 11 gm CHO consumed
[2017-02-20] MEDS: CITALOPRAM 40 MG TAB PO SCH (11:41)
[2017-02-20] MEDS: INSULIN GLARGINE SOLOSTAR 100 UNITS/ML 3 ML PEN SC SCH (17:47)
[2017-02-20] MEDS ORDERED: DC IV INSULIN INFUSION ONE ×2 (19:45→20:45)
[2017-02-20] MEDS: ATORVASTATIN 10 MG TAB PO SCH (21:03)
[2017-02-20] MEDS: MONTELUKAST SOD 10 MG TAB PO SCH (21:03)
[2017-02-20] MEDS: FEXOFENADINE HCL 180 MG TAB PO SCH (21:03)
[2017-02-21] VITALS (16 sets, daily range): BP systolic 84–113; BP diastolic 58–76; PULSE 69–92; TEMP 36.6–36.8; O2SAT 91–96; Ht 144.8 cm; Wt 63.5 kg
[2017-02-21] MEDS: INSULIN ASPART 100 UNITS/ML 3 ML PEN SC SCH ×5 (00:38→20:05)
[2017-02-21] MEDS ORDERED: INSULIN HUMAN REGULAR PER UNIT 6 UNITS in SYRINGE 5.94 ML IV SCH ×3 (00:45→11:45)
[2017-02-21] MEDS: VANCOMYCIN INJ 1,000 MG in SODIUM CHLORIDE 0.9% 250ML 250 ML IV SCH (02:17)
[2017-02-21] MEDS: CEFEPIME IV 2,000 MG in SYRINGE 7.5 ML IV SCH ×2 (04:22→16:16)
[2017-02-21 05:15] LABS: HEMATOCRIT 35.4 % (37-47); MEAN CELL VOLUME 102.6 fL (80-100); MEAN CORPUSCULAR HEMOGLOBIN 34.2 pg (25-34); MEAN CORPUSCULAR HGB CONC 33.3 g/dl (32-36); MEAN PLATELET VOLUME 10.1 fL (7.4-10.4); PLATELET COUNT 216 K/uL (130-400); RED BLOOD COUNT 3.45 M/uL (4.2-5.4); WHITE BLOOD COUNT 18.61 K/uL (4.8-10.8)
[2017-02-21 05:36] LABS: BUN/CREATININE RATIO 28.7 (10-20); CALCIUM 8.6 mg/dl (8.5-10.1); CREATININE 0.99 mg/dl (0.60-1.20); POTASSIUM 3.7 mmol/L (3.5-5.1)
[2017-02-21] MEDS: METHYLPREDNISOLONE IV 80 MG in SYRINGE 0 ML IV SCH ×3 (06:59→21:44)
[2017-02-21] MEDS: LEVOTHYROXINE 150 MCG TAB PO SCH (06:59)
[2017-02-21] MEDS: ALBUT/IPRATROP 3MG/0.5MG NEB 3 ML VIAL INH SCH ×4 (07:13→20:27)
[2017-02-21] MEDS: SALMETEROL XINAFOATE 50MCG 28 BLISTER INH INH SCH ×2 (08:10→20:25)
[2017-02-21] MEDS: CEROVITE ADV FORMULA TAB PO SCH (08:10)
[2017-02-21] MEDS: PANTOprazole SOD 40 MG TAB PO SCH (08:10)
[2017-02-21] MEDS: FLUTICASONE HFA 110MCG INHALER INH SCH ×2 (08:10→20:24)
[2017-02-21] MEDS: CITALOPRAM 40 MG TAB PO SCH (08:10)
[2017-02-21] MEDS: GUAIFENESIN 600 MG TABCR PO SCH ×2 (08:10→20:27)
[2017-02-21] MEDS: ZINC SULFATE 220 MG CAP PO SCH ×2 (08:10→20:27)
[2017-02-21] MEDS: ENOXAPARIN 40 MG/0.4 ML SYR SC SCH (08:11)
[2017-02-21] MEDS ORDERED: VANCOMYCIN CONSULT ACTIVE PRN (10:45)
--- NOTE | 2017-02-21 11:38 | Pharmacy Progress Note ---
Pharmacy Glycemic Short Note 2 Date of Service Feb 21, 2017. OUTPATIENT ANTIDIABETIC REGIMEN: * NovoLog insulin pump * Verified outpatient rates with caregiver Sofia * Basal rates vary every 3 hrs from 0.25 - 0.6 units/hr (total basal insulin dose = 9.6 units/day) * Bolus * SF: 65 during the day and 70 at HS * CR: 1: 15 * Goal range 100 -140 mg/dl ASSESSMENT: 02/20/17 * Patient currently on an insulin drip at ~8 units/hr -> significantly higher than outpatient insulin requirements. Of note, nurse noted to me this AM that patient was having additional food in between meals. * Also receiving Lantus 12 units qHS and a set CR of 1 unit per 13 gm CHO as the initial plan was to transition to SQ basal/bolus once BSGs improved * At this point, BSGs are still elevated and patient is requiring significantly more than outpatient needs so I am inclined to keep the drip on in addition to the Lantus and Novolog * I did tighten the set CR with lunch today since it appeared that the CR of 13 was not enough 02/21/17 * Ms. Early was taken off the insulin drip last evening when BSGs had improved * Since then, her BSGs have been fairly unstable, although no severe lows as during past admissions * I was happy with the fasting of 226 this AM but she is up to 412 at lunch * Will plan to give another IV dose of Regular insulin and tighten the CR. I'm hesitant to adjust the basal dose since the steroids mainly affect postprandial BSGs. * If BSGs remain uncontrolled, will plan to resume the insulin drip as this will be the easiest way to effectively control her BSGs PLAN FOR INPATIENT GLYCEMIC CONTROL: * Regular insulin IV bolus 6 units x 1 * Continue Lantus 15 units qHS * Continue Novolog ACHS + 00,04 * Goal 110-150 * CF 30 * TIGHTEN CR to 7 * If BSG is sustained above 350 after bolus and SQ dose given with lunch today, will plan to resume insulin drip (moderate stress, goal 110-180) in addition to the Lantus and use a set carb ratio of 1 unit per 7 gm CHO consumed Planning for discharge: * CDE spoke with patient's mother this AM. Apparently BSGs were labile but A1c around 8% until recently. May have been due to recent outpatient steroid courses. Patient was previously following with [facility] but will now be following with [facility] and next appt will be early March. CDE spoke with mother to reinforce calling office if patient has persistent highs or lows. * Discharge plan will be dependent on patient being discharged on steroids or not - please contact glycemic pharmacist to discuss prior to discharge
[2017-02-21] MEDS ORDERED: LEVOFLOXACIN / D5W 750 MG in PREMIXED IN D5W 150 ML IV SCH (16:00)
--- NOTE | 2017-02-21 17:33 | Family Medicine Progress Note ---
Progress Note Date of Service Feb 21, 2017. Subjective Pt evaluation today including: conversation w/ patient, physical exam, chart review, lab review Pt seen and examined at bedside with the nurse Raghavendra in the room. Patient is pleasant and is answering questions. Telemetry showed sinus in the 70s and 80s. Pt is eating well. States she is at her clinical baseline. Her trach is in place. All questions answered. Constitutional: No fever, No chills, No sweats, No weight loss ENT: No hearing loss Respiratory: + cough, No sputum, No wheezing, No shortness of breath, No dyspnea on exertion Cardiovascular: No chest pain Abdomen: No pain, No nausea, No vomiting, No diarrhea Female : No dysuria Objective Physical Exam Notes: General Appearance: WD/WN, no apparent distress Eyes: PERRL, EOMI ENT: + pertinent finding (trach in place) Respiratory/Chest: chest non-tender, no respiratory distress, no accessory muscle use, + pertinent finding (coarse lung sounds in all [place]) Cardiovascular: regular rate, rhythm, no edema, no gallop, no JVD, i did appreciate a systolic ejection murmur. Abdomen: normal bowel sounds, non tender, soft, no organomegaly, no pulsatile mass Extremities: normal range of motion, non-tender, normal inspection, no pedal edema, no calf tenderness Neurologic/Psychiatric: compensation/benefits specialist II-XII nml as tested, no motor/sensory deficits, alert, normal mood/affect, oriented x 3 Skin: no rash Assessment and Plan 51F with a history of Down Syndrome, asthma, tracheostomy (circa 1997 or 1998), recurrent respiratory infections, DM I on an insulin pump, depression, hypothyroidism, CAMILLA, and GERD who presented to the ED on 02/19 with worsening shortness of breath and wheezing. Pt afebrile but hypoxic on arrival with saturation of 83% on room air. Pt does not typically wear oxygen while awake. Saturations up to mid 90s on 4-5L NC. CXR on admission shows bibasilar opacities, atelectasis vs superimposed PNA. WBC 11.04. BSG 374. HBA1C was 10.2. Caregiver states sugars had been up to 500 yesterday due to Prednisone. Labs otherwise grossly unremarkable. Pt received vanc and cefepime in ED as well as loading dose of Solu-Medrol. We will transition to PO Steroids and DC on PO Abx. Suspected MRSA pneumonia, pt lives in [facility]. 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 -Stop vancomycin, c/w cefepime 2 gm IV q12h and Levaquin 750 mg IV q48h for renal dosing. Listed ceph allergy but tolerated cefepime in ED. Day #2. - Will discharge on Levoquin 750mg [id number] starting on 02/22/2017. - c/w DuoNebs QIDR and q2h prn SOB/wheezing - stop Solu-Medrol 80 mg IV q8h, start Prednisone 60mg tomorrow AM, taper to 60mg, 40mg, 40mg, 20mg, 20mg. - Negative Blood Cultures to date. -BNP was 150 so not in CHF. -Hold home Bactrim and doxy Asthma -Continue Danielle, Singulair, Flovent 2 puffs inh BID and Serevent 1 puff inh BID DM I--last HgbA1c in 2015 -Consult pharmacy for glycemic control. Pt uses insulin pump -Check BSGs q ac and qhs -HBA1C was 10.2, placed Ditch Cleaner consult. - Will put in a referral to Dr. Crandall at [facility]. Depression -Continue citalopram 40 mg PO qd Hypothyroidism -Continue Synthroid 150 mcg PO qd GERD - c/w PPI Congenital Trach stenosis - Keep clean and patent. Chronic Diastolic CHF - Continue to monitor on tele. HLD - c/w Lipitor 10mg daily. DVT prophylaxis -Enoxaparin 40 mg SC q24h -ARELI thomas and SCDs Dispo: Lives in a [facility], home on [place]. FULL CODE. Resident Physician Supervision Note: I was present with the resident during the history and exam. I discussed the case with the resident and agree with the findings and plan as documented in the note. Any exceptions or clarifications are listed here: Documented By: Deon Best Resident Involvement: Resident Care Provided Care Provided: Adult Hospital Medicine
[2017-02-21] MEDS ORDERED: INSULIN HUMAN REGULAR IV BOLUS PHA PREPARED IV ONE (17:38)
--- NOTE | 2017-02-21 17:38 | Discharge Instructions ---
Discharge Instructions Date of Service Feb 22, 2017. Admission Reason for Admission: Pneumonia Discharge Discharge Diagnosis / Problem: Asthma Exacerbation / Pneumonia Discharge Goals Goal(s): Decrease discomfort, Improve function, Increase independence, Improve disease control, Improve nutritional status, Learn about illness Activity Recommendations Activity Limitations: per Instructions/Follow-up section . Instructions / Follow-Up Instructions / Follow-Up You are being discharged on an antibiotic called Levofloxacin. Please take one pill of this antibiotic for the next 3 days. Once this antibiotic is complete you may resume your regular Antibiotic schedule. We are also sending you home on Prednisone on a taper. The Prednisone taper is 60mg starting in the morning of 02/23/2017 and daily morning amounts according to the following schedule: 60mg - 02/24/2017 40mg - 02/25/2017 40mg - 02/26/2017 40mg - 02/27/2017 20mg - 02/28/2017 20mg - 03/01/2017 We also also adjusting your insulin dose. When you came into the hospital your sugar level was high. Our pharmacist recommended the following regimen to control your blood sugars. 1. Continue Novolog insulin pump at outpatient settings on discharge * consider adding additional BSG check at 0000 and bolus with insulin pump if needed 2. Recommend the addition of NPH SQ once daily administered in the morning WHILE ON PREDNISONE * Day #1- Prednisone 60 mg -NPH 25 units * Day #2- Prednisone 60 mg- NPH 25 units * Day #3- Prednisone 40 mg- NPH 19 units * Day #4- Prednisone 40 mg- NPH 19 units * Day #5 -Prednisone 20 mg- NPH 13 units * Day #6- Prednisone 20 mg- NPH 13 units * Stop NPH when prednisone is finished 3. Frequent BSG monitoring recommended while on NPH + insulin pump 4. If patient experiences hypoglycemia or severe hyperglycemia while on this regimen, strongly consider arranging follow up with patient's Clay Thrower MONA to have insulin pump settings adjusted. Follow up appointments have been made for you, see below. Please keep these appointments. Please, follow up at Dr. Lucio's office with Kelly Torres PA-C on SaturdayFebruary 27 at 1:00 pm. *If you need to change this appointment you can call their office at . Please, follow up at [facility] with Dr. Crandall. Your appointment was moved up to - SaturdayMarch AT 10:30 AM This appt is approximately 1 1/2 hours long. The one week follow up appointment will be on SaturdayMarch at 1:30 pm. *This office is located in [address] of [facility] - big building next to the hospital. If you have any questions or need to reschedule the appointment you can call the office at [phone]. Current Hospital Diet Patient's current hospital diet: Diabetes Type 1 Diet Discharge Diet Recommended Diet: Diabetes Type 1 Diet Pending Studies Studies pending at discharge: no Laboratory Results Hemoglobin A1c Test 02/20/17 06:11 Range/Units Estimated Average Glucose 246 mg/dl Hemoglobin A1c 10.2 H 4.5-5.6 % Medical Emergencies . Who to Call and When: Medical Emergencies: If at any time you feel your situation is an emergency, please call 911 immediately. . Non-Emergent Contact Non-Emergency issues call your: Primary Care Provider, Specialist ( Clay Thrower) . . "Provider Documentation" section prepared by Benjamin Crowley. . VTE Core Measure Inpt VTE Proph given/why not?: Enoxaparin (Lovenox)Carmel VALDOVINOS, SCD's Resident Involvement: Resident Care Provided Care Provided: Adult Hospital Medicine
[2017-02-21] MEDS: INSULIN REGULAR 250 UNITS in SODIUM CHLORIDE 0.9% 250ML 250 ML IV SCH ×3 (18:07→20:32)
[2017-02-21] MEDS ORDERED: VANCOMYCIN TROUGH ONE (19:30)
[2017-02-21] MEDS: FEXOFENADINE HCL 180 MG TAB PO SCH (20:26)
[2017-02-21] MEDS: ATORVASTATIN 10 MG TAB PO SCH (20:27)
[2017-02-21] MEDS: MONTELUKAST SOD 10 MG TAB PO SCH (20:28)
[2017-02-21] MEDS: INSULIN GLARGINE SOLOSTAR 100 UNITS/ML 3 ML PEN SC SCH (20:30)
[2017-02-22 00:17] LABS: MANUAL MICROSCOPIC REQUIRED? NO; REVIEW REQ? NO; URINE APPEARANCE CLEAR (CLEAR); URINE BILIRUBIN NEG (NEG); URINE COLOR YELLOW; URINE NITRITE NEG (NEG); URINE SPECIFIC GRAVITY 1.044 (1.000-1.030); UROBILINOGEN NEG (NEG); ZZUR CULT IF INDIC CLEAN CATCH NO
[2017-02-22] MEDS: CEFEPIME IV 2,000 MG in SYRINGE 7.5 ML IV SCH (04:00)
[2017-02-22] MEDS: LEVOTHYROXINE 150 MCG TAB PO SCH (05:55)
[2017-02-22 06:24] LABS: HEMATOCRIT 35.6 % (37-47); MEAN CELL VOLUME 102.9 fL (80-100); MEAN CORPUSCULAR HEMOGLOBIN 33.5 pg (25-34); MEAN CORPUSCULAR HGB CONC 32.6 g/dl (32-36); MEAN PLATELET VOLUME 10.2 fL (7.4-10.4); PLATELET COUNT 206 K/uL (130-400); RED BLOOD COUNT 3.46 M/uL (4.2-5.4); WHITE BLOOD COUNT 15.68 K/uL (4.8-10.8)
[2017-02-22 06:57] VITALS: PULSE 50; O2SAT 93
[2017-02-22] MEDS: ALBUT/IPRATROP 3MG/0.5MG NEB 3 ML VIAL INH SCH ×3 (06:57→15:10)
[2017-02-22 07:06] LABS: BUN/CREATININE RATIO 33.5 (10-20); CALCIUM 8.6 mg/dl (8.5-10.1); CREATININE 0.74 mg/dl (0.60-1.20); POTASSIUM 4.1 mmol/L (3.5-5.1)
[2017-02-22] MEDS: INSULIN REGULAR 250 UNITS in SODIUM CHLORIDE 0.9% 250ML 250 ML IV SCH ×4 (07:09→13:06)
[2017-02-22 07:19] VITALS: BP 95/61; PULSE 56; TEMP 36.6; O2SAT 94
[2017-02-22] MEDS: SALMETEROL XINAFOATE 50MCG 28 BLISTER INH INH SCH (08:10)
[2017-02-22] MEDS: CITALOPRAM 40 MG TAB PO SCH (08:11)
[2017-02-22] MEDS: FLUTICASONE HFA 110MCG INHALER INH SCH (08:11)
[2017-02-22] MEDS: GUAIFENESIN 600 MG TABCR PO SCH (08:11)
[2017-02-22] MEDS: PANTOprazole SOD 40 MG TAB PO SCH (08:11)
[2017-02-22] MEDS: CEROVITE ADV FORMULA TAB PO SCH (08:11)
[2017-02-22] MEDS: ZINC SULFATE 220 MG CAP PO SCH (08:11)
[2017-02-22] MEDS: ENOXAPARIN 40 MG/0.4 ML SYR SC SCH (08:12)
[2017-02-22] MEDS: INSULIN ASPART 100 UNITS/ML 3 ML PEN SC SCH (08:21)
[2017-02-22] MEDS ORDERED: INSULIN ASPART 100 UNITS/ML 3 ML PEN SC SCH ×2 (11:00)
[2017-02-22] MEDS ORDERED: PRD20 PO ×3 (11:02→12:43)
[2017-02-22] MEDS ORDERED: LEVO1TAB35 PO ×2 (11:06→11:24)
[2017-02-22 11:10] VITALS: PULSE 61; O2SAT 92
--- NOTE | 2017-02-22 12:22 | Pharmacy Progress Note ---
Glycemic Control Progress Note Date of Service Feb 22, 2017. Scope Glycemic Pharmacist consulted for glycemic control to write orders per [facility] inpatient glycemic control protocol. Objective Accuchecks BSG (last 24hrs): Test 02/21/17 13:07 02/21/17 16:01 02/21/17 19:13 02/21/17 20:17 Bedside Glucose 378 mg/dl (70-90) 398 mg/dl (70-90) 521 mg/dl (70-90) 488 mg/dl (70-90) Test 02/21/17 21:14 02/21/17 22:11 02/21/17 23:14 02/22/17 00:12 Bedside Glucose 425 mg/dl (70-90) 361 mg/dl (70-90) 388 mg/dl (70-90) 266 mg/dl (70-90) Test 02/22/17 01:17 02/22/17 02:12 02/22/17 03:12 02/22/17 03:36 Bedside Glucose 174 mg/dl (70-90) 148 mg/dl (70-90) 102 mg/dl (70-90) 105 mg/dl (70-90) Test 02/22/17 03:45 02/22/17 03:49 02/22/17 04:43 02/22/17 05:31 Bedside Glucose 185 mg/dl (70-90) 112 mg/dl (70-90) 117 mg/dl (70-90) Random Glucose 97 mg/dl (70-99) Test 02/22/17 05:43 02/22/17 06:42 02/22/17 07:02 02/22/17 08:02 Bedside Glucose 96 mg/dl (70-90) 84 mg/dl (70-90) 170 mg/dl (70-90) 165 mg/dl (70-90) Test 02/22/17 08:57 02/22/17 10:02 02/22/17 10:59 Bedside Glucose 212 mg/dl (70-90) 195 mg/dl (70-90) 191 mg/dl (70-90) HbA1c: Test 02/20/17 06:11 Hemoglobin A1c 10.2 % (4.5-5.6) H Recent Pertinent Medications The patient is currently receiving: * Basal insulin: Lantus 15 units every 24 hours (02/20 and 02/21) * IV insulin infusion: Rate: 2.6, 3.7, 5.2, 4.2, 2.5, 1.2 units/hr * Prandial insulin: Per carb ratio of 1 unit per 7 grams CHO consumed Outpatient Anti-Diabetic Meds NovoLog insulin pump * Verified outpatient rates with caregiver Sofia * Basal rates vary every 3 hrs from 0.25 - 0.6 units/hr (total basal insulin dose = 9.6 units/day) * Bolus * SF: 65 during the day and 70 at HS * CR: 1: 15 * Goal range 100 -140 mg/dl Assessment & Plan ASSESSMENT: * See previous progress notes for more background info, in short: * IV insulin infusion resumed last evening due to BSG > 350 mg/dL. Pt also was continued on Lantus 15 units SQ HS. * Patient received 51 units of SQ insulin yesterday + 12 units of IV regular insulin in addition to insulin drip being resumed. * BSGs ranging 209 - 521 mg/dl over the past 24hrs * IV steroids changed to prednisone 60 mg po daily starting today * Discharge planning * Pharmacy unable to provide recommendations to adjust pump settings on discharge * Recommend addition of NPH to cover steroid effect in addition to home novolog pump * Recommend f/u with Processor Helper MONA if pump adjustment is needed PLAN FOR INPATIENT GLYCEMIC CONTROL: * Continue IV insulin infusion per protocol * Goal Range 110 - 180 mg/dl * Will transition to Novolog pump at home settings once pump is available ([facility] to [facility] pump to hospital) * Stop Lantus * Initiate NPH 25 units SQ today * Bolus insulin * Correction Factor: -- (none per pt on drip) * Nutritional / Prandial insulin per carb ratio of 1 unit per 7 grams CHO consumed (RN instructed to use this carb ratio rather than CR calculated by infusion calculator) Once Novolog insulin pump available: * Initiate insulin pump at home settings * correction and carb coverage per pump * Overlap with IV insulin infusion for 1-2 hours RECOMMENDATIONS FOR DISCHARGE: The following insulin doses are based on BSG data available at this time. Today is the first day of Prednisone 60 mg daily, therefore exact needs are very difficult to estimate Discharge Regimen: 1. Recommend continuing Novolog insulin pump at outpatient settings on discharge * consider adding additional BSG check at 0000 and bolus with insulin pump if needed 2. Recommend the addition of NPH SQ once daily administered in the morning WHILE ON PREDNISONE * Day #1- Prednisone 60 mg -NPH 25 units * Day #2- Prednisone 60 mg- NPH 25 units * Day #3- Prednisone 40 mg- NPH 19 units * Day #4- Prednisone 40 mg- NPH 19 units * Day #5 -Prednisone 20 mg- NPH 13 units * Day #6- Prednisone 20 mg- NPH 13 units * Stop NPH when prednisone is finished 3. Frequent BSG monitoring recommended while on NPH + insulin pump 4. If patient experiences hypoglycemia or severe hyperglycemia while on this regimen, strongly consider arranging follow up with patient's Processor Helper MONA to have insulin pump settings adjusted. Thank you.
[2017-02-22] MEDS ORDERED: NovoLIN-N (NPH) PER UNIT CHARGE SQ ONE (12:30)
[2017-02-22] MEDS ORDERED: INSU1SOL SQ (13:31)
[2017-02-22 13:40] VITALS: BP 95/61; PULSE 61; TEMP 36.6; O2SAT 92
--- NOTE | 2017-02-22 13:48 | Discharge Summary ---
Discharge Summary Date of Service Feb 22, 2017. Discharge Summary Admission Date: Feb 19, 2017 at 16:49 Discharge Date: Feb 22, 2017 Discharge Disposition: Personal care Principal Diagnosis: Asthma Exacerbation / Pneumonia Immunizations: Have You Had Influenza Vaccine: N/A Influenza Vaccine Date: Dec 18, 2005 History of Tetanus Vaccine?: Unknown Tetanus Immunization Date: May 22, 2001 History of Pneumococcal: Yes Pneumococcal Date: August 15, 2012 History of Hepatitis B Vaccine: No Procedures: TWO VIEW CHEST XRAY CLINICAL HISTORY: Cough and dyspnea.. FINDINGS: PA and lateral chest radiographs are compared to study dated 10/25/2016 and correlated with chest CT dated 05/20/2015. A tracheostomy tube and a right subclavian central venous infusion port are unchanged in position. The cardiomediastinal silhouette is unremarkable. I basilar airspace opacities are noted. No pleural effusion is identified. There is no pneumothorax. The skeletal structures are osteopenic. There are healed bilateral rib fractures. IMPRESSION: Bibasilar airspace opacities likely represent atelectasis. Correlate clinically for evidence of superimposed pneumonia. Medication Reconciliation New Medications: Insulin Isophane (Human) (Humulin N Kwikpen) 100 Unit/Ml Inj 1 PEN SQ DAILY for 6 Days Day #1- Prednisone 60 mg -NPH 25 units Day #2- Prednisone 60 mg- NPH 25 units Day #3- Prednisone 40 mg- NPH 19 units Day #4- Prednisone 40 mg- NPH 19 units Day #5 -Prednisone 20 mg- NPH 13 units Day #6- Prednisone 20 mg- NPH 13 units Levofloxacin (Levaquin) 750 Mg Tab 750 MG PO DAILY for 3 Days, #3 TAB Prednisone (Prednisone) 20 Mg Tab 60 MG PO QAM for 6 Days, #12 TAB 60mg tomorrow AM, (3 tabs) 60mg next AM, 40mg next AM, 40mg next AM, 20mg next AM, 20mg next AM. END Continued Medications: Acetaminophen (Tylenol) 500 Mg Tab 1000 MG PO Q6H PRN for GENERAL DISCOMFORT MAX 8 TABLETS IN 24 HOURS Albuterol Hfa (Ventolin Hfa) 200 Puffs/46051 Mcg Aers 2 PUFFS INH QID PRN for Shortness of Breath Albuterol Sulf (Proventil 0.083% 2.5MG/3ML) 2.5 Mg/3 Ml Nebu 2.5 MG INH TID TAKE VIA TRACH MASK Atorvastatin (Lipitor) 10 Mg Tab 10 MG PO QPM Calcium Carbonate-Cholecalcife (Oyster Shell Calcium + D) 1 Tab Tab 1 TAB PO TID MORNING, AFTERNOON AND BEDTIME Citalopram Hydrobromide (Celexa) 40 Mg Tab 40 MG PO DAILY, TAB Clotrimazole (Topical) (Anti-Fungal) 1 % Cre 1 APPLN TOP TID PRN for RASH APPLY 3 TIMES DAILY NEEDED FOR RASH AROUND TRACH Dextrose (Diabetic Use) (Insta-Glucose) 77.4 % Gel 1 TUBE PO UD PRN for LOW BLOOD SUGAR EPISODES INSA-GLUCOSE 40% GEL Fexofenadine Hcl (Danielle) 180 Mg Tab 180 MG PO HS, TAB Fluconazole (Diflucan) 150 Mg Tab 150 MG PO DIRECTED PRN for YEAST INFECTION Fluticasone Propionate (Flovent Hfa) 120 Puffs/56258 Mcg Aero 2 PUFFS INH AMHS USE WITH AEROCHAMBER. RINSE MOUTH AFTER USE. * FLOVENT HFA 110 MCG * Furosemide (Lasix) 20 Mg Tab 20 MG PO DAILY PRN for WEIGHT GAIN, TAB GIVE WITH WEIGHT GAIN OF 3 POUNDS OR MORE Glucagon (Glucagon Emergency Kit) 1 Mg Kit 1 MG IM PRN for UNRESPONSIVE PRN FOR LOW BLOOD SUGAR EPISODES Glucose-Vitamin C (Dex4) 1 Chw Chw 1 TAB PO DAILY PRN for LOW BLOOD SUGARS Guaifenesin Ext Rel (Mucinex Ext Rel) 600 Mg Tab 600 MG PO Q12, TAB Home O2 Therapy (Oxygen) Gas 4 LITERS NA PRN 4L/MIN 30% VIA TRACH HS Ibuprofen (Motrin) 600 Mg Tab 600 MG PO TID PRN for Pain, 0 Refills Insulin Aspart (novoLOG INSULIN PUMP ) 1 Ea Inj 1 EA N/A UD, EA Insulin Glargine (Lantus) 100 Unit/Ml Inj 0 SC UD PRN for PUMP MALFUNCTION USE IF NEEDED FOR A PUMP MALFUNCTION Levothyroxine Sodium (Levothyroxine Sodium) 150 Mcg Tab 150 MCG PO QAM for 90 Days, #90 TAB 3 Refills Montelukast Sodium (Singulair) 10 Mg Tab 10 MG PO HS, TAB Multiple Vitamins W/ Minerals (Therems M) 1 Tab Tab 1 TAB PO DAILY Omeprazole (Prilosec) 20 Mg Capcr 20 MG PO QAM, CAP Promethazine (Phenergan ) 12.5 Mg Tab 12.5 MG PO Q8 PRN for Nausea or Vomiting, TAB Salmeterol Xinafoate (Serevent Diskus) 50 Mcg Aerp 1 PUFF INH AMPM Sodium Chloride (Gu Irrigant) (Sodium Chloride 0.9%) 0.9 % Mary Anne DAILY USE TO CLEAN TRACH TUBE DAILY. Sodium Fluoride (Dental) (Phos-Flur) 1.1 % Gel 0.5 OZ PO HS RINSE MOUTH AND EXPECTORATE Zinc Sulfate (Zinc Sulfate) 220 Mg Cap 220 MG PO AMHS Discontinued Medications: Amoxicillin & Pot Clavulanate (Augmentin 875-125 mg) 1 Tab Tab 1 TAB PO Q12 PRN for INCREASED COUGH/SPUTUM WHEN OFFICE IS CLOSED WEEKENDS/HOLIDAYS Doxycycline Hyclate (Doxycycline Hyclate) 100 Mg Tab 100 MG PO DAILY TAKE 1 DAILY IN THE MORNING FOR THE MONTH OF APR, JUNE, AUGUST, OCT, DEC, FEB. Levofloxacin (Levaquin) 500 Mg Tab 500 MG PO DAILY X 10 DAYS Prednisone Tab (Prednisone) 10 Mg Tab 1 DOSE PO UD TAKE 4 TABS DAILYX 2 DAYS, THEN DECREASE BY 1/2 PILL EVERY 2 DAYS UNTIL GONE. Discharge Exam Subjective Pt seen and examined at bedside. Patient is pleasant and is answering questions. No acute events overnight. Not on oxygen when examined. Pt is eating well. Enjoys the food. Is pleasant and answering questions appropriately. All questions answered. Constitutional: No fever, No chills, No sweats, No weight loss ENT: No hearing loss Respiratory: + cough, No sputum, No wheezing, No shortness of breath, No dyspnea on exertion Cardiovascular: No chest pain Abdomen: No pain, No nausea, No vomiting, No diarrhea Female : No dysuria Objective General Appearance: WD/WN, no apparent distress, no on oxygen at rest. Eyes: PERRL, EOMI ENT: + pertinent finding (trach in place) Respiratory/Chest: chest non-tender, no respiratory distress, no accessory muscle use, + pertinent finding (coarse lung sounds at bases - improved from previous day) Cardiovascular: regular rate, rhythm, no edema, no gallop, no JVD, i did appreciate a systolic ejection murmur. 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 Pt afebrile but hypoxic on arrival with saturation of 83% on room air. Pt does not typically wear oxygen while awake. Saturations up to mid 90s on 4-5L NC. CXR on admission shows bibasilar opacities, atelectasis vs superimposed PNA. WBC 11.04. BSG 374. HBA1C was 10.2. Caregiver states sugars had been up to 500 yesterday due to Prednisone. Labs otherwise grossly unremarkable. Pt received vanc and cefepime in ED as well as loading dose of Solu-Medrol. Patient improved on IV Steroids and IV ABx and was transitioned to PO. She was weaned to room air and was discharged on a Prednisone Taper (with an NPH Taper). Follow up with PCP and Dr. Crandall was also arranged. We are also discharging on a three day course of Levofloxacin. After the three days of Levofloxacin she may resume her Antibiotic Prophylaxis course. Hospital labs were significant for a BNP of 150 (within normal limits). The Prednisone Taper is as follows and start on the AM of 02/23/2018. * Day #1- Prednisone 60 mg -NPH 25 units * Day #2- Prednisone 60 mg- NPH 25 units * Day #3- Prednisone 40 mg- NPH 19 units * Day #4- Prednisone 40 mg- NPH 19 units * Day #5 -Prednisone 20 mg- NPH 13 units * Day #6- Prednisone 20 mg- NPH 13 units Resident Physician Supervision Note: I was present with the resident physician during the history and exam. I discussed the case with the resident and agree with the findings and plan as documented in the note. Documented By: Deon Best Total Time Spent: Less than 30 minutes This includes examination of the patient, discharge planning, medication reconciliation, and communication with other providers. Discharge Instructions Please refer to the electronic Patient Visit Report (Discharge Instructions) for additional information. Follow-Up Please, follow up at Dr. Lucio's office with Kelly Torres PA-C on SaturdayFebruary 27 at 1:00 pm. *If you need to change this appointment you can call their office at . Please, follow up at [facility] with Dr. Crandall. Your appointment was moved up to - SaturdayMarch AT 10:30 AM This appt is approximately 1 1/2 hours long. The one week follow up appointment will be on SaturdayMarch at 1:30 pm. *This office is located in [address] of [facility] - big building next to the hospital. If you have any questions or need to reschedule the appointment you can call the office at [phone]. Additional Copies To Vladimir Lucio M.D. Resident Involvement: Resident Care Provided Care Provided: Adult Hospital Medicine
[2017-02-22] MEDS ORDERED: INSULIN ASPART 100 UNITS/ML VIAL SC PRN (14:15)
[2017-02-22] MEDS ORDERED: INSU1INJ23 SQ (14:22)
[2017-02-22 15:12] VITALS: PULSE 82; O2SAT 88
[2017-02-22] MEDS ORDERED: NovoLOG INSULIN PUMP SCH (16:30)
== END 2017-02-22 16:44 | disposition other institution (70) | DRG 178 ==
LOC: C.EDB 13:07 → C.2T 16:49 → ENRESERV 17:58 → EDBEDREQ 02-21 18:11 → ENRESERV 02-21 18:15 → CANRESERV 02-21 18:15 → ENRESERV 02-21 18:50 → C.MS2W 02-21 19:54
PROVIDERS: ADMIT Hospitalist; ATTEND Family Medicine
DX: J15.212 Pneumonia due to Methicillin resistant Staphylococcus aureus (principal); J45.901 Unspecified asthma with (acute) exacerbation; Q32.1 Other congenital malformations of trachea; I50.32 Chronic diastolic (congestive) heart failure; R09.02 Hypoxemia; E10.9 Type 1 diabetes mellitus without complications; Q90.9 Down syndrome, unspecified; K21.9 Gastro-esophageal reflux disease without esophagitis; G47.33 Obstructive sleep apnea (adult) (pediatric); F32.9 Major depressive disorder, single episode, unspecified; E03.9 Hypothyroidism, unspecified; Z51.81 Encounter for therapeutic drug level monitoring; Z79.899 Other long term (current) drug therapy; Z93.0 Tracheostomy status; Z96.41 Presence of insulin pump (external) (internal); Z86.14 Personal history of Methicillin resistant Staphylococcus aureus infection; Z82.49 Family history of ischemic heart disease and other diseases of the circulatory system

== ENCOUNTER → 2017-02-26 | Outpatient (CLI) | payer OTHER ==
[~2017-02-26] MED LIST changes: -ALBINS INH; +ALBINS/ INH; -ALBU1AER9 INH; -ALBU1NEB10 INH; -ALL180 PO; -AMOX875T PO; +CALC-211 PO; -CALC500T67 PO; +CITA40TA12 PO; -CLOT1CRE12 TOP; +CLOT1CRE80 TOP; -CLX20 PO; -DEXT15LI10 PO; +DEXT4CHW64 PO; -DOXY100C76 PO; +FEXO1TAB46 PO; -GFNSR600 PO; +GUAI1TAB55 PO; +INSU1INJ23 SQ; +LEVO150T9 PO; +LEVO1TAB35 PO; +MONT1TAB3 PO; +PRD20 PO; +PRLSR20 PO; -SALM50AE2 INH; -SNG10 PO; -SODI0.9S; +SRVDIN60 INH; -SULF-183 PO; +ZINC1CAP PO; +[UNRECOGNIZED DRUG - CODE]; -[UNRECOGNIZED DRUG - CODE] PO
[2017-02-26 12:27] LABS: BASO % 0.1 %; BASO ABS # 0.02 K/uL (0-0.2); COMPLETE YES; HEMATOCRIT 38.2 % (37-47); IG% 2.7 %; LYMPH ABS # 0.35 K/uL (1.2-3.4); MEAN CORPUSCULAR HEMOGLOBIN 34.2 pg (25-34); MEAN CORPUSCULAR HGB CONC 33.2 g/dl (32-36); MEAN PLATELET VOLUME 10.4 fL (7.4-10.4); MONO % 5.8 %; NEUT % 89.4 %; PLATELET COUNT 201 K/uL (130-400); RED BLOOD COUNT 3.71 M/uL (4.2-5.4); WHITE BLOOD COUNT 17.86 K/uL (4.8-10.8)
[2017-02-26 12:35] LABS: ESTIMATED AVERAGE GLUCOSE 258 mg/dl; HA1C FLAG Normal (Normal)
[2017-02-26 13:08] LABS: ALT/SGPT 68 U/L (12-78); AST/SGOT 10 U/L (15-37); BLOOD UREA NITROGEN 16 mg/dl (7-18); BUN/CREATININE RATIO 19.8 (10-20); CALCIUM 8.9 mg/dl (8.5-10.1); CARBON DIOXIDE 31 mmol/L (21-32); CHLORIDE 100 mmol/L (98-107); CREATININE 0.81 mg/dl (0.60-1.20); GLUCOSE 207 mg/dl (70-99); POTASSIUM 4.2 mmol/L (3.5-5.1); SODIUM 138 mmol/L (136-145)
== END | disposition home or self-care (01) ==
LOC: C.LAB1850 11:18
PROVIDERS: ATTEND Internal Medicine
DX: D64.9 Anemia, unspecified (principal); N28.9 Disorder of kidney and ureter, unspecified; E11.9 Type 2 diabetes mellitus without complications; E87.6 Hypokalemia; E03.9 Hypothyroidism, unspecified

== ENCOUNTER → 2017-02-27 | Outpatient (CLI) | payer OTHER ==
--- NOTE | 2017-02-27 14:40 | DIAGNOSTIC IMAGING REPORT ---
CHEST 2 VIEWS ROUTINE CLINICAL HISTORY: Cough. Shortness of breath. COMPARISON STUDY: Chest radiograph February 19, 2017. FINDINGS: Tracheostomy tube and right subclavian [id number] are in place. Cardiomediastinal silhouette is normal. Bibasilar airspace opacities have developed. A 1.3 cm lucency within the left lower lung airspace opacity could reflect aerated lung or cavitary pneumonia. IMPRESSION: Interval development of bibasilar airspace opacities highly suggestive of pneumonia. A 1.3 cm lucency within the left lower lung airspace opacity could reflect aerated lung or a cavitary pneumonia. Electronically signed by: Manny Gorman M.D. 02/27/2017 2:39 PM Dictated Date/Time: 02/27/2017 2:36 PM
== END | disposition home or self-care (01) ==
LOC: C.RAD1850 14:23
PROVIDERS: ATTEND Physician Assistant
DX: R05 Cough (principal); J98.4 Other disorders of lung

== ENCOUNTER → 2017-03-06 | Outpatient (CLI) | payer OTHER ==
--- NOTE | 2017-03-06 15:19 | DIAGNOSTIC IMAGING REPORT ---
CHEST 2 VIEWS ROUTINE HISTORY: 51 years-old Female R05 Cough acute cough COMPARISON: Chest radiographs 02/27/2017 TECHNIQUE: PA and lateral views of the chest FINDINGS: Cardiac silhouette is within normal limits. Right subclavian [id number]-[id number] catheter is unchanged. Tracheostomy cannula overlies the midline with distal tip the level of the inferior margin clavicular heads. No pneumothorax. Bibasilar subsegmental alveolar opacities are noted with slightly improved aeration of the lateral left lung base from comparison. Previously questioned cavitation of the lateral left lung base is not clearly seen on today's study. Mild dextroscoliosis of the thoracic spine. IMPRESSION: Persistent bibasilar alveolar opacities suggestive of pneumonia. Previously questioned cavitary focus of the lateral left lung base not identified. The above report was generated using voice recognition software. It may contain grammatical, syntax or spelling errors. Electronically signed by: Trung Betts M.D. 03/06/2017 3:18 PM Dictated Date/Time: 03/06/2017 3:15 PM
== END | disposition home or self-care (01) ==
LOC: C.RAD1850 14:58
PROVIDERS: ATTEND Physician Assistant
DX: R05 Cough (principal)

== ENCOUNTER 2017-03-25 10:14 | Inpatient (IN) | payer OTHER ==
[~2017-03-25] VITALS: Ht 144.8 cm; Wt 67.1 kg
--- NOTE | 2017-03-25 11:16 | DIAGNOSTIC IMAGING REPORT ---
CHEST ONE VIEW PORTABLE CLINICAL HISTORY: EVALUATE RESPIRATORY DISTRESS.DYSPNEA dyspnea COMPARISON STUDY: 03/06/2017 FINDINGS: Bibasilar interstitial parenchymal infiltrates stable to slightly improved on the left and essentially unchanged to slightly progressive on the right. And upper lungs are considered clear. Several old left and to a lesser extent right rib fractures. Tracheostomy tube in good position. Central catheter in superior vena cava. IMPRESSION: Bibasilar parenchymal infiltrates slightly variable from the prior exam. Slight progression on the right with slight improvement in the left. The above report was generated using voice recognition software. It may contain grammatical, syntax or spelling errors. Electronically signed by: Benjamin Cheung M.D. 03/25/2017 11:15 AM Dictated Date/Time: 03/25/2017 11:14 AM
[2017-03-25] MEDS ORDERED: SULF800T23 PO (11:37)
[2017-03-25] MEDS ORDERED: PIPERACILLIN/TAZOBACTAM 4.5 GM/100ML D5W IV STA (12:25)
[2017-03-25] MEDS ORDERED: LEVAQUIN 500MG / 100ML D5W IV ONE (12:30)
[2017-03-25 12:43] LABS: BASO % 0.8 %; BASO ABS # 0.03 K/uL (0-0.2); EOS % 1.4 %; EOS ABS # 0.05 K/uL (0-0.5); HEMATOCRIT 33.8 % (37-47); HEMOGLOBIN 11.2 g/dL (12.0-16.0); IG# 0.01 K/uL (0.00-0.02); LYMPH ABS # 1.13 K/uL (1.2-3.4); MEAN CELL VOLUME 102.7 fL (80-100); MEAN CORPUSCULAR HGB CONC 33.1 g/dl (32-36); MEAN PLATELET VOLUME 10.2 fL (7.4-10.4); MONO % 8.5 %; MONO ABS # 0.31 K/uL (0.11-0.59); NEUT ABS # 2.12 K/uL (1.4-6.5); PLATELET COUNT 224 K/uL (130-400); RED CELL DISTRIBUTION WIDTH CV 13.9 % (11.5-14.5); RED CELL DISTRIBUTION WIDTH SD 51.9 fL (36.4-46.3); WHITE BLOOD COUNT 3.65 K/uL (4.8-10.8)
[2017-03-25 13:00] LABS: ALBUMIN 2.8 gm/dl (3.4-5.0); ALT/SGPT 20 U/L (12-78); BLOOD UREA NITROGEN 16 mg/dl (7-18); CALCIUM 8.7 mg/dl (8.5-10.1); CARBON DIOXIDE 29 mmol/L (21-32); GLUCOSE 159 mg/dl (70-99); POTASSIUM 4.7 mmol/L (3.5-5.1); SODIUM 138 mmol/L (136-145)
[2017-03-25 13:05] LABS: ALKALINE PHOSPHATASE 77 U/L (45-117); AST/SGOT 13 U/L (15-37); TOTAL PROTEIN 6.4 gm/dl (6.4-8.2)
[2017-03-25] MEDS ORDERED: MAGNESIUM HYDROXIDE SUSP 30 ML UDC PO PRN (14:15)
[2017-03-25] MEDS ORDERED: ONDANSETRON INJ 2 MG/ML 2 ML VIAL IV PRN (14:15)
[2017-03-25] MEDS ORDERED: ALUMINUM/MAGNESIUM/SIMETH (MAALOX MAX) 30 ML UDC PO PRN (14:15)
[2017-03-25] MEDS ORDERED: ALBUTEROL HFA 8 GM INHALER INH PRN (14:15)
[2017-03-25] MEDS ORDERED: ACETAMINOPHEN 325 MG TAB PO PRN (14:15)
[2017-03-25] MEDS ORDERED: POLYETHYLENE (MIRALAX) 17 GM PACK PO PRN (14:15)
[2017-03-25] MEDS ORDERED: NovoLOG INSULIN PUMP SCH ×2 (14:15→16:00)
--- NOTE | 2017-03-25 14:52 | History and Physical ---
History & Physical Date & Time of Service: Mar 25, 2017 at 14:31 Chief Complaint: Lethargic/Low Spo2 Primary Care Physician: Vladimir Lucio M.D. History of Present Illness Source: patient, caregiver, clinic records, hospital records This is a 51 y/o female with a history of Down syndrome, asthma, tracheal stenosis s/p tracheostomy (1998), recurrent respiratory infections on prophylactic abx, DM I, depression, hypothyroidism, CAMILLA, and GERD who presented to the ED on 03/25 with lethargy, cough, shortness of breath and hypoxia. The patient had recently been admitted to [facility] with bilateral pneumonia on 02/19 where she received antibiotics and steroids. The patient had been doing well back at her [facility], but over the weekend she developed lethargy and change in mental status. Per her caregiver at bedside, the patient had a productive cough this morning and audible wheezing, and she was not acting herself. The caregiver states that currently, the patient is back to her normal self. The patient had followed up with pulmonology last week where she was placed on continuous oxygen, 2L at rest and 4L with exertion. Per caregiver, the patient had just sat down after ambulating on 4L when she became pale and SOB. Her pulse ox was 83% on the 4L even after rest. Outpatient pulmonary records note that the patient may require another bronchoscopy. The patient denies fevers, chills, sweats, chest pain, palpitations, claudication, nausea, vomiting, abdominal pain, dysuria, hematuria, urinary retention, paralysis, weakness, numbness and tingling. Past Medical/Surgical History Medical Problems: (1) ASTHMA, UNSPECIFIED Status: Chronic (2) CONGESTIVE HEART FAILURE Status: Chronic (3) DIAB UVALDO WO COMPL, TYPE I [JUVENILE TYPE], NOT UNCNTRLD Status: Chronic (4) DOWN'S SYNDROME Status: Chronic Tracheal stenosis s/p tracheostomy Depression Hypothyroidism CAMILLA GERD Family History Myocardial infarction Social History Smoking Status: Never Smoker Smokeless Tobacco Use: No Alcohol Use: none Drug Use: none Marital Status: single Housing status: assisted living Occupational Status: disabled Immunizations History of Influenza Vaccine: N/A Influenza Vaccine Date: Dec 18, 2005 History of Tetanus Vaccine?: Unknown Tetanus Immunization Date: May 22, 2001 History of Pneumococcal: Yes Pneumococcal Date: August 15, 2012 History of Hepatitis B Vaccine: No Multi-Drug Resistant Organisms History of MDRO: No Allergies Coded Allergies: Cephalosporins (Verified Allergy, Intermediate, rash per mother, 12/27/16) TOLERATED ZOSYN IN PAST ADMISSION AND 05/17/15 Cefaclor (Verified Allergy, Unknown, HIVES, 02/19/17) TOLERATED ZOSYN IN PAST ADMISSION AND 05/17/15 Sertraline (Verified Allergy, Unknown, INTOLERANCE, 12/27/16) Home Medications Scheduled Albuterol Sulf (Proventil 0.083% 2.5MG/3ML), 2.5 MG INH TID Atorvastatin (Lipitor), 10 MG PO QPM Calcium Carbonate-Cholecalcife (Oyster Shell Calcium + D), 1 TAB PO TID Citalopram Hydrobromide (Celexa), 40 MG PO DAILY Fexofenadine Hcl (Danielle), 180 MG PO HS Fluticasone Propionate (Flovent Hfa), 2 PUFFS INH AMHS Guaifenesin Ext Rel (Mucinex Ext Rel), 600 MG PO Q12 Home O2 Therapy (Oxygen), 4 LITERS NA PRN Insulin Aspart (novoLOG INSULIN PUMP ), 1 EA N/A UD Levothyroxine Sodium (Levothyroxine Sodium), 150 MCG PO QAM Montelukast Sodium (Singulair), 10 MG PO HS Multiple Vitamins W/ Minerals (Therems M), 1 TAB PO DAILY Omeprazole (Prilosec), 20 MG PO QAM Salmeterol Xinafoate (Serevent Diskus), 1 PUFF INH AMPM Sodium Chloride (Gu Irrigant) (Sodium Chloride 0.9%), DAILY Sodium Fluoride (Dental) (Phos-Flur), 0.5 OZ PO HS Sulfa/Trimethoprim (Bactrim Ds 800MG/160MG), 1 TAB PO HS Zinc Sulfate (Zinc Sulfate), 220 MG PO AMHS Scheduled PRN Acetaminophen (Tylenol), 1,000 MG PO Q6H PRN for GENERAL DISCOMFORT Albuterol Hfa (Ventolin Hfa), 2 PUFFS INH QID PRN for Shortness of Breath Clotrimazole (Topical) (Anti-Fungal), 1 APPLN TOP TID PRN for RASH Dextrose (Diabetic Use) (Insta-Glucose), 1 TUBE PO UD PRN for LOW BLOOD SUGAR EPISODES Fluconazole (Diflucan), 150 MG PO DIRECTED PRN for YEAST INFECTION Furosemide (Lasix), 20 MG PO DAILY PRN for WEIGHT GAIN Glucagon (Glucagon Emergency Kit), 1 MG IM for UNRESPONSIVE Glucose-Vitamin C (Dex4), 1 TAB PO DAILY PRN for LOW BLOOD SUGARS Ibuprofen (Motrin), 600 MG PO TID PRN for Pain Insulin Glargine (Lantus), 0 SC UD PRN for PUMP MALFUNCTION Promethazine (Phenergan ), 12.5 MG PO Q8 PRN for Nausea or Vomiting Review of Systems Constitutional: No fever, No chills, No sweats Eyes: No worsening of vision, No eye pain, No diplopia ENT: No hearing loss, No nasal symptoms, No trouble swallowing Respiratory: +Productive cough, wheezing, shortness of breath Cardiovascular: No chest pain, No claudication, No palpitations Abdomen: No pain, No nausea, No vomiting Musculoskeletal: No joint pain, No muscle pain, No swelling Genitourinary - Female: No dysuria, No urinary retention, No hematuria Neurologic: No paralysis, No weakness, No numbness/tingling Integumentary: No rash, No itch, No color change Physical Exam Vital Signs Date Time Temp Pulse Resp B/P (MAP) Pulse Ox O2 Delivery O2 Flow Rate FiO2 03/25/17 12:30 64 03/25/17 12:18 129/72 03/25/17 11:14 97 Trach Collar 8.0 03/25/17 11:13 97 Trach Collar 8.0 03/25/17 10:30 36.3 61 16 129/72 98 Mask 8.0 Trach Collar 03/25/17 10:28 58 General appearance: Well-developed, well-nourished, no apparent distress Head: Normocephalic, atraumatic Eyes: Normal inspection, PERRL, EOMI ENT: Normal ENT inspection, hearing grossly normal, pharynx normal Neck: +Tracheostomy. Supple, no JVD, trachea midline Respiratory/Chest: +Diffuse rhonchi. Normal breath sounds, no respiratory distress Cardiovascular: +Systolic murmur. Regular rate & rhythm, no gallop Abdomen/GI: Normal bowel sounds, non-tender, soft Extremities/Musculoskeletal: Normal inspection, no calf tenderness, no pedal edema Neurological/Psych: +No longer lethargic, change in mental status resolved per caregiver. Alert, normal mood/affect, oriented x 3 Skin: Normal color, warm/dry, no rash Diagnostics Laboratory Results Results Past 24 Hours Test 03/25/17 12:10 Range/Units White Blood Count 3.65 4.8-10.8 K/uL Red Blood Count 3.29 4.2-5.4 M/uL Hemoglobin 11.2 12.0-16.0 g/dL Hematocrit 33.8 37-47 % Mean Corpuscular Volume 102.7 80-100 fL Mean Corpuscular Hemoglobin 34.0 25-34 pg Mean Corpuscular Hemoglobin Concent 33.1 32-36 g/dl Platelet Count 224 130-400 K/uL Mean Platelet Volume 10.2 7.4-10.4 fL Neutrophils (%) (Auto) 58.0 % Lymphocytes (%) (Auto) 31.0 % Monocytes (%) (Auto) 8.5 % Eosinophils (%) (Auto) 1.4 % Basophils (%) (Auto) 0.8 % Neutrophils # (Auto) 2.12 1.4-6.5 K/uL Lymphocytes # (Auto) 1.13 1.2-3.4 K/uL Monocytes # (Auto) 0.31 0.11-0.59 K/uL Eosinophils # (Auto) 0.05 0-0.5 K/uL Basophils # (Auto) 0.03 0-0.2 K/uL RDW Standard Deviation 51.9 36.4-46.3 fL RDW Coefficient of Variation 13.9 11.5-14.5 % Immature Granulocyte % (Auto) 0.3 % Immature Granulocyte # (Auto) 0.01 0.00-0.02 K/uL Prothrombin Time 10.3 9.0-12.0 SECONDS Prothromb Time International Ratio 1.0 0.9-1.1 Activated Partial Thromboplast Time 34.0 21.0-31.0 SECONDS Partial Thromboplastin Ratio 1.3 Sodium Level 138 136-145 mmol/L Potassium Level 4.7 3.5-5.1 mmol/L Chloride Level 103 98-107 mmol/L Carbon Dioxide Level 29 21-32 mmol/L Anion Gap 6.0 3-11 mmol/L Blood Urea Nitrogen 16 7-18 mg/dl Creatinine 0.90 0.60-1.20 mg/dl Est Creatinine Clear Calc Drug Dose 62.4 ml/min Estimated GFR () 85.2 Estimated GFR (Non- 73.5 BUN/Creatinine Ratio 17.8 10-20 Random Glucose 159 70-99 mg/dl Calcium Level 8.7 8.5-10.1 mg/dl Total Bilirubin 0.3 0.2-1 mg/dl Aspartate Amino Transf (AST/SGOT) 13 15-37 U/L Alanine Aminotransferase (ALT/SGPT) 20 12-78 U/L Alkaline Phosphatase 77 45-117 U/L Troponin I < 0.015 0-0.045 ng/ml Total Protein 6.4 6.4-8.2 gm/dl Albumin 2.8 3.4-5.0 gm/dl Globulin 3.6 2.5-4.0 gm/dl Albumin/Globulin Ratio 0.8 0.9-2 Diagnostic Radiology Reviewed the following studies and agree with interpretation as follows: CHEST ONE VIEW PORTABLE CLINICAL HISTORY: EVALUATE RESPIRATORY DISTRESS.DYSPNEA dyspnea COMPARISON STUDY: 03/06/2017 FINDINGS: Bibasilar interstitial parenchymal infiltrates stable to slightly improved on the left and essentially unchanged to slightly progressive on the right. And upper lungs are considered clear. Several old left and to a lesser extent right rib fractures. Tracheostomy tube in good position. Central catheter in superior vena cava. IMPRESSION: Bibasilar parenchymal infiltrates slightly variable from the prior exam. Slight progression on the right with slight improvement in the left. EKG Reviewed EKG and agree with interpretation as follows: 60 bpm, NSR Impression Assessment and Plan 51 y/o female with a history of Down syndrome, asthma, tracheal stenosis s/p tracheostomy (1998), recurrent respiratory infections on prophylactic abx, DM I , depression, hypothyroidism, CAMILLA, and GERD who presented to the ED on 03/25 with lethargy, cough, shortness of breath and hypoxia. Pt received DuoNeb en route to ED from EMS. Pt arrived to ED afebrile, VSS. Originally up to 10L through trach collar, now down to 8L. No leukocytosis, labs grossly unremarkable. Pt received Levaquin and Zosyn in ED. Hypoxia, lethargy, possible bilateral pneumonia--lethargy/AMS resolved, unclear if previous pneumonia never resolved vs new infection vs neither -Admit to telemetry -Will cover for HCAP for now given change in mental status and new hypoxia. IV vancomycin, Zosyn and Levaquin. Hold home prophylactic meds -Solu-Medrol 125 mg IV x 1 now, then 40 mg IV q6h -DuoNebs QIDR and q2h prn SOB/wheezing -O2 by protocol -Pulmonary toilet, chest physiotherapy -Continue home Mucinex 600 mg PO BID -Consult pulmonology, appreciate recs. Pt had seen pulm last week, outpt records note that if relapses, may need bronchoscopy Asthma -Continue Danielle, Singulair, Flovent 2 puffs inh BID and Serevent 1 puff inh BID DM I--last HgbA1c 10.6 on 02/26/17 -Consult pharmacy for glycemic control. Pt uses insulin pump -Check BSGs q ac and qhs Depression -Continue citalopram 40 mg PO qd Hypothyroidism -Continue Synthroid 150 mcg PO qd GERD -Prilosec converted to Protonix DVT prophylaxis -Enoxaparin 40 mg SC q24h -ARELI Pandeys Code Status -Level I, FULL RESUSCITATION STATUS Level of Care Telemetry Resuscitation Status FULL RESUSCITATION VTE Prophylaxis VTE Risk Assessment Done? Y/N: Yes Risk Level: Moderate Given or contraindicated: Enoxaparin (Lovenox)SQ, T.E.D. Stockings, SCD's Note Supervising Note Dr. Johnson I performed a history and physical examination on the patient. I reviewed above note and agree with it. I discussed plan with APC and patient. During my face to face encounter with the patient, I answered all of the patient's questions. Patient's blood pressure has been hovering around 90. Will give a fluid bolus of one liter. Will continue with above treatment as noted by Jess.
[2017-03-25] MEDS ORDERED: PHARMACY GLYCEMIC MGMT CONSULT PRN (14:56)
--- NOTE | 2017-03-25 14:56 | EMERGENCY ROOM VISIT NOTE ---
History Report prepared by Bryce: Tee Michelle Under the Supervision of: Dr. Kane Perez D.O. First contact with patient: 10:50 Chief Complaint: ILLNESS Stated Complaint: LETHARGIC/LOW SPO2 History of Present Illness The patient is a 51 year old female who presents to the Emergency Room with complaints of persistent lethargy and low oxygen saturation starting this morning. The patient's correction nurse states that the patient has had pneumonia three weeks ago and was doing well since then. The patient has a trach tube, and a week ago the patient saw a wind instrument repairer and was put on 2L of oxygen at rest and 4L of oxygen with exertion. This morning she was doing her normal routine, and when she sat down she was still on 4L of oxygen and was pale , not responding normally, confused, and she was 85-88% on 4L nasal cannula. The patient is currently complaining of shortness of breath, chest pain, and a productive cough. The patient has no known previous blood clots, and she is not on any blood thinners. She has a history of asthma. Pt denies headache, abdominal pain, and increased secretion from the trach site. Source of History: patient, family Onset: this morning Position: other (global) Quality: other (lethargy and low oxygen saturation) Timing: other (persistent ) Associated Symptoms: + cough, + chest pain, + SOB, No headache, No abdominal pain Review of Systems See HPI for pertinent positives & negatives. A total of 10 systems reviewed and were otherwise negative. Past Medical & Surgical Medical Problems: (1) ASTHMA, UNSPECIFIED (2) CONGESTIVE HEART FAILURE (3) DIAB UVALDO WO COMPL, TYPE I [JUVENILE TYPE], NOT UNCNTRLD (4) DOWN'S SYNDROME (5) Hypoxia (6) Pneumonia (7) Shortness of breath (8) SOB (shortness of breath) Family History Myocardial infarction Social History Smoking Status: Never Smoker Drug Use: none Housing Status: other Occupation Status: disabled Current/Historical Medications Scheduled Albuterol Sulf (Proventil 0.083% 2.5MG/3ML), 2.5 MG INH TID Atorvastatin (Lipitor), 10 MG PO QPM Calcium Carbonate-Cholecalcife (Oyster Shell Calcium + D), 1 TAB PO TID Citalopram Hydrobromide (Celexa), 40 MG PO DAILY Fexofenadine Hcl (Danielle), 180 MG PO HS Fluticasone Propionate (Flovent Hfa), 2 PUFFS INH AMHS Guaifenesin Ext Rel (Mucinex Ext Rel), 600 MG PO Q12 Home O2 Therapy (Oxygen), 4 LITERS NA PRN Insulin Aspart (novoLOG INSULIN PUMP ), 1 EA N/A UD Levothyroxine Sodium (Levothyroxine Sodium), 150 MCG PO QAM Montelukast Sodium (Singulair), 10 MG PO HS Multiple Vitamins W/ Minerals (Therems M), 1 TAB PO DAILY Omeprazole (Prilosec), 20 MG PO QAM Salmeterol Xinafoate (Serevent Diskus), 1 PUFF INH AMPM Sodium Chloride (Gu Irrigant) (Sodium Chloride 0.9%), DAILY Sodium Fluoride (Dental) (Phos-Flur), 0.5 OZ PO HS Sulfa/Trimethoprim (Bactrim Ds 800MG/160MG), 1 TAB PO HS Zinc Sulfate (Zinc Sulfate), 220 MG PO AMHS Scheduled PRN Acetaminophen (Tylenol), 1,000 MG PO Q6H PRN for GENERAL DISCOMFORT Albuterol Hfa (Ventolin Hfa), 2 PUFFS INH QID PRN for Shortness of Breath Clotrimazole (Topical) (Anti-Fungal), 1 APPLN TOP TID PRN for RASH Dextrose (Diabetic Use) (Insta-Glucose), 1 TUBE PO UD PRN for LOW BLOOD SUGAR EPISODES Fluconazole (Diflucan), 150 MG PO DIRECTED PRN for YEAST INFECTION Furosemide (Lasix), 20 MG PO DAILY PRN for WEIGHT GAIN Glucagon (Glucagon Emergency Kit), 1 MG IM for UNRESPONSIVE Glucose-Vitamin C (Dex4), 1 TAB PO DAILY PRN for LOW BLOOD SUGARS Ibuprofen (Motrin), 600 MG PO TID PRN for Pain Insulin Glargine (Lantus), 0 SC UD PRN for PUMP MALFUNCTION Promethazine (Phenergan ), 12.5 MG PO Q8 PRN for Nausea or Vomiting Allergies Coded Allergies: Cephalosporins (Verified Allergy, Intermediate, rash per mother, 12/27/16) TOLERATED ZOSYN IN PAST ADMISSION AND 05/17/15 Cefaclor (Verified Allergy, Unknown, HIVES, 02/19/17) TOLERATED ZOSYN IN PAST ADMISSION AND 05/17/15 Sertraline (Verified Allergy, Unknown, INTOLERANCE, 12/27/16) Physical Exam Vital Signs Date Time Temp Pulse Resp B/P (MAP) Pulse Ox O2 Delivery O2 Flow Rate FiO2 03/25/17 12:30 64 03/25/17 12:18 129/72 03/25/17 11:14 97 Trach Collar 8.0 03/25/17 11:13 97 Trach Collar 8.0 03/25/17 10:30 36.3 61 16 129/72 98 Mask 8.0 Trach Collar 03/25/17 10:28 58 Physical Exam GENERAL: Sitting up in bed, pleasant, tracking, and interacting appropriately. EYE EXAM: normal conjunctiva. OROPHARYNX: no exudate, no erythema, lips, buccal mucosa, and tongue normal and mucous membranes are moist NECK: Trach in place with a non-rebreather. Supple, no nuchal rigidity, no adenopathy, non-tender LUNGS: Rhonchi bilaterally. Normal chest wall mechanics HEART: no murmurs, S1 normal and S2 normal ABDOMEN: abdomen soft, non-tender, normo-active bowel sounds, no masses, no rebound or guarding. BACK: Back is symmetrical on inspection and there is no deformity, no midline tenderness, no CVA tenderness. SKIN: no rashes and no bruising UPPER EXTREMITIES: upper extremities are grossly normal. LOWER EXTREMITIES: Calves are equal bilaterally. No pitting edema. NEURO EXAM: Alert following commands and answering questions appropriately, cranial nerves II-XII grossly intact, normal speech, no gross weakness of arms , no gross weakness of legs. Gross sensation intact. Medical Decision & Procedures ER Provider Diagnostic Interpretation: Radiology results as stated below per my review and the radiologist's interpretation: CHEST ONE VIEW PORTABLE CLINICAL HISTORY: EVALUATE RESPIRATORY DISTRESS.DYSPNEA dyspnea COMPARISON STUDY: 03/06/2017 FINDINGS: Bibasilar interstitial parenchymal infiltrates stable to slightly improved on the left and essentially unchanged to slightly progressive on the right. And upper lungs are considered clear. Several old left and to a lesser extent right rib fractures. Tracheostomy tube in good position. Central catheter in superior vena cava. IMPRESSION: Bibasilar parenchymal infiltrates slightly variable from the prior exam. Slight progression on the right with slight improvement in the left. The above report was generated using voice recognition software. It may contain grammatical, syntax or spelling errors. Electronically signed by: Benjamin Cheung M.D. 03/25/2017 11:15 AM Dictated Date/Time: 03/25/2017 11:14 AM Laboratory Results 03/25/17 12:10 Red Blood Count 3.29, Mean Corpuscular Volume 102.7, Mean Corpuscular Hemoglobin 34.0, Mean Corpuscular Hemoglobin Concent 33.1, Mean Platelet Volume 10.2, Neutrophils (%) (Auto) 58.0, Lymphocytes (%) (Auto) 31.0, Monocytes (%) ( Auto) 8.5, Eosinophils (%) (Auto) 1.4, Basophils (%) (Auto) 0.8, Neutrophils # ( Auto) 2.12, Lymphocytes # (Auto) 1.13, Monocytes # (Auto) 0.31, Eosinophils # ( Auto) 0.05, Basophils # (Auto) 0.03 03/25/17 12:10 Test 03/25/17 12:10 White Blood Count 3.65 K/uL (4.8-10.8) Red Blood Count 3.29 M/uL (4.2-5.4) Hemoglobin 11.2 g/dL (12.0-16.0) Hematocrit 33.8 % (37-47) Mean Corpuscular Volume 102.7 fL (80-100) Mean Corpuscular Hemoglobin 34.0 pg (25-34) Mean Corpuscular Hemoglobin Concent 33.1 g/dl (32-36) Platelet Count 224 K/uL (130-400) Mean Platelet Volume 10.2 fL (7.4-10.4) Neutrophils (%) (Auto) 58.0 % Lymphocytes (%) (Auto) 31.0 % Monocytes (%) (Auto) 8.5 % Eosinophils (%) (Auto) 1.4 % Basophils (%) (Auto) 0.8 % Neutrophils # (Auto) 2.12 K/uL (1.4-6.5) Lymphocytes # (Auto) 1.13 K/uL (1.2-3.4) Monocytes # (Auto) 0.31 K/uL (0.11-0.59) Eosinophils # (Auto) 0.05 K/uL (0-0.5) Basophils # (Auto) 0.03 K/uL (0-0.2) RDW Standard Deviation 51.9 fL (36.4-46.3) RDW Coefficient of Variation 13.9 % (11.5-14.5) Immature Granulocyte % (Auto) 0.3 % Immature Granulocyte # (Auto) 0.01 K/uL (0.00-0.02) Prothrombin Time 10.3 SECONDS (9.0-12.0) Prothromb Time International Ratio 1.0 (0.9-1.1) Activated Partial Thromboplast Time 34.0 SECONDS (21.0-31.0) Partial Thromboplastin Ratio 1.3 Anion Gap 6.0 mmol/L (3-11) Est Creatinine Clear Calc Drug Dose 62.4 ml/min Estimated GFR () 85.2 Estimated GFR (Non- 73.5 BUN/Creatinine Ratio 17.8 (10-20) Calcium Level 8.7 mg/dl (8.5-10.1) Total Bilirubin 0.3 mg/dl (0.2-1) Aspartate Amino Transf (AST/SGOT) 13 U/L (15-37) Alanine Aminotransferase (ALT/SGPT) 20 U/L (12-78) Alkaline Phosphatase 77 U/L (45-117) Troponin I < 0.015 ng/ml (0-0.045) Total Protein 6.4 gm/dl (6.4-8.2) Albumin 2.8 gm/dl (3.4-5.0) Globulin 3.6 gm/dl (2.5-4.0) Albumin/Globulin Ratio 0.8 (0.9-2) Laboratory results per my review. Medications Administered Medications (Trade) Dose Ordered Sig/Rene Route Start Time Stop Time Status Last Admin Dose Admin Piperacillin Sod/ Tazobactam Sod (Zosyn Iv) 4.5 gm NOW STAT IV 03/25/17 12:25 03/25/17 12:27 DC 03/25/17 13:12 4.5 GM Levofloxacin (Levaquin / D5W) 500 mg NOW ONCE IV 03/25/17 12:30 03/25/17 12:31 DC 03/25/17 13:43 500 MG ECG Indication: SOB/dyspnea Rate (beats per minute): 60 Rhythm: sinus rhythm Findings: nonspecific-ST abn (Inferior), other (normal axis) ED Course ED COURSE: Vital signs were reviewed and showed hypoxia The patients medical record was reviewed The above diagnostic studies were performed and reviewed. ED treatments and interventions as stated above. 1050: The patient was evaluated in room C7. A complete history and physical examination was performed. 1225: Zosyn 4.5gm IV 1226: Upon reevaluation, the patient is doing well.I discussed my findings with the patient and her family and they understand and agree with the treatment plan. Based on the patients age, coexisting illnesses, exam and lab findings the decision to treat as an inpatient was made. The patient remained stable while under my care. The patient will be evaluated for further management. 1230: Levofloxacin 500mg IV 1311: I reviewed the patient's case with Dr. Johnson. He will evaluate the patient for further management. Medical Decision Differential diagnoses includes but is not limited to pneumonia, bronchitis, COPD/Asthma exacerbation, pneumothorax, pulmonary embolism, congestive heart failure, acute coronary syndrome. Patient is a 51-year-old female who was brought in by family as she has had increased O2 requirements at home. Last week she was placed on 2 L nasal cannula. Today she was increased to 8 L via trach collar as she became significantly dyspneic with a pulse ox of 85% at home. Patient has had new and worsening productive cough. No recorded fevers. On exam patient has rhonchi. Chest x-ray supports pneumonia. Labs show a mild leukopenia. BMP, LFTs, bilirubin and troponin was negative. Patient was given fluids and broad- spectrum antibiotics. Patient was admitted to internal medicine with pneumonia and hypoxia. Medication Reconcilliation Current Medication List: was personally reviewed by me Blood Pressure Screening Patient's blood pressure: Normal blood pressure Consults Time Called: [phone] Consulting Physician: Dr. Johnson Returned Call: [phone] I reviewed the patient's case with Dr. Johnson. He will evaluate the patient for further management. Impression Primary Impression: Pneumonia Additional Impression: Hypoxia Scribe Attestation The scribe's documentation has been prepared under my direction and personally reviewed by me in its entirety. I confirm that the note above accurately reflects all work, treatment, procedures, and medical decision making performed by me. Departure Information Dispostion Being Evaluated By Hospitalist Referrals Vladimir Lucio M.D. (PCP) Patient Instructions [facility] Problem Qualifiers Primary Impression: Pneumonia Pneumonia type: due to unspecified organism Laterality: unspecified laterality Lung location: unspecified part of lung Qualified Codes: J18.9 - Pneumonia, unspecified organism
[2017-03-25] MEDS ORDERED: INSULIN ASPART 100 UNITS/ML VIAL SC PRN (15:00)
[2017-03-25] MEDS ORDERED: GLUCOSE 40% GEL 15 GM TUBE PO PRN (15:00)
[2017-03-25] MEDS ORDERED: VANCOMYCIN CONSULT ACTIVE PRN ×2 (15:00→15:15)
[2017-03-25] MEDS ORDERED: PIPERACILL/TAZOBAC CONSULT ACTIVE PRN ×2 (15:00→15:15)
[2017-03-25] MEDS ORDERED: GLUCOSE 10 TABS/TUBE PO PRN (15:00)
[2017-03-25] MEDS ORDERED: GLUCAGON FOR INJ 1 MG VIAL SQ PRN (15:00)
--- NOTE | 2017-03-25 15:25 | Pharmacy Progress Note ---
Pharmacy Glycemic Short Note 2 Date of Service Mar 25, 2017. OUTPATIENT ANTIDIABETIC REGIMEN: * NovoLog insulin pump * Basal rates vary every 3 hrs from 0.25 - 0.6 units/hr (total basal insulin dose = 9.6 units/day) * Bolus * SF: 65 during the day and 70 at HS * CR: 1: 15 * Goal range 100 -140 mg/dl ASSESSMENT: * 51yo T1DM with a history of "brittle diabetes" and frequent BSG swings. Pt known to pharmacy from previous admissions/glycemic consults. Most recently just last month * Recent A1c is elevated at 10.2% * ED RPH interviewed patient, family, caregivers in ED. They agree that insulin pump should be held for admission and SQ basal bolus insulin regimen should be used in its place. * Pt is to be started on high dose IV steroids - likely will cause SEVERE hyperglycemia. Frequent insulin dose adjustments will be needed. * Pt does not know how to manage her own pump (caregiver manages pump). Even if pt was able to manage pump, it would likely not be able to treat severe steroid induced hyperglycemia. * Will hold outpatient pump and utilize SQ basal bolus insulin regimen. IV insulin infusion was needed short term for severe hyperglycemia last admission. Will start slightly more aggressive than last admission to hopefully hold off IV insulin infusion . PLAN FOR INPATIENT GLYCEMIC CONTROL: * Hold outpatient SQ insulin pump * Disconnect/stop pump as soon as SQ insulin doses are given today * Basal insulin: * Lantus 15 units SQ Q24hrs - first dose MONA * Bolus insulin: * NovoLog per scale ACHS * Goal range: 110 - 150mg/dl * Correctional insulin: 20mg/dl/unit * Nutritional / Prandial insulin per carb ratio of 1 unit per 7 grams CHO consumed
[2017-03-25 15:49] VITALS: BP 104/63; PULSE 60; TEMP 37; O2SAT 95; BMI 32.3
[2017-03-25] MEDS ORDERED: METHYLPREDNISOLONE IV 125 MG in SYRINGE 0 ML IV STA (15:50)
[2017-03-25] MEDS ORDERED: VANCOMYCIN INJ 1,750 MG in SODIUM CHLORIDE 0.9% 500ML 500 ML IV ONE (16:00)
--- NOTE | 2017-03-25 16:05 | Pharmacy Progress Note ---
Pharmacy Antibiotic Consult Date of Service: Mar 25, 2017. Pharmacy Dosing Scope Pharmacy is consulted to initiate Vancomycin and zosyn IV dosing therapy, order appropriate labs and adjust drug dose/frequency. Pt is also on Levaquin PO. Subjective The patient is a 51 year old female admitted on Mar 25, 2017 at 14:31. Objective Height (Feet): 5 Height (Inches): 0 Weight (Kilograms): 67.000 Lab Results (24hrs): Test 03/25/17 12:10 White Blood Count 3.65 K/uL (4.8-10.8) Red Blood Count 3.29 M/uL (4.2-5.4) Hemoglobin 11.2 g/dL (12.0-16.0) Hematocrit 33.8 % (37-47) Mean Corpuscular Volume 102.7 fL (80-100) Mean Corpuscular Hemoglobin 34.0 pg (25-34) Mean Corpuscular Hemoglobin Concent 33.1 g/dl (32-36) Platelet Count 224 K/uL (130-400) Mean Platelet Volume 10.2 fL (7.4-10.4) Neutrophils (%) (Auto) 58.0 % Lymphocytes (%) (Auto) 31.0 % Monocytes (%) (Auto) 8.5 % Eosinophils (%) (Auto) 1.4 % Basophils (%) (Auto) 0.8 % Neutrophils # (Auto) 2.12 K/uL (1.4-6.5) Lymphocytes # (Auto) 1.13 K/uL (1.2-3.4) Monocytes # (Auto) 0.31 K/uL (0.11-0.59) Eosinophils # (Auto) 0.05 K/uL (0-0.5) Basophils # (Auto) 0.03 K/uL (0-0.2) RDW Standard Deviation 51.9 fL (36.4-46.3) RDW Coefficient of Variation 13.9 % (11.5-14.5) Immature Granulocyte % (Auto) 0.3 % Immature Granulocyte # (Auto) 0.01 K/uL (0.00-0.02) Prothrombin Time 10.3 SECONDS (9.0-12.0) Prothromb Time International Ratio 1.0 (0.9-1.1) Activated Partial Thromboplast Time 34.0 SECONDS (21.0-31.0) Partial Thromboplastin Ratio 1.3 Sodium Level 138 mmol/L (136-145) Potassium Level 4.7 mmol/L (3.5-5.1) Chloride Level 103 mmol/L (98-107) Carbon Dioxide Level 29 mmol/L (21-32) Anion Gap 6.0 mmol/L (3-11) Blood Urea Nitrogen 16 mg/dl (7-18) Creatinine 0.90 mg/dl (0.60-1.20) Est Creatinine Clear Calc Drug Dose 62.4 ml/min Estimated GFR () 85.2 Estimated GFR (Non- 73.5 BUN/Creatinine Ratio 17.8 (10-20) Random Glucose 159 mg/dl (70-99) Calcium Level 8.7 mg/dl (8.5-10.1) Total Bilirubin 0.3 mg/dl (0.2-1) Aspartate Amino Transf (AST/SGOT) 13 U/L (15-37) Alanine Aminotransferase (ALT/SGPT) 20 U/L (12-78) Alkaline Phosphatase 77 U/L (45-117) Troponin I < 0.015 ng/ml (0-0.045) Total Protein 6.4 gm/dl (6.4-8.2) Albumin 2.8 gm/dl (3.4-5.0) Globulin 3.6 gm/dl (2.5-4.0) Albumin/Globulin Ratio 0.8 (0.9-2) Assessment & Plan Assessment Risk factors for resistance: * Admissions within the past 90 days * Antibiotic use within the past 90 days * Lives in a jail Pt with PMH of down syndrome, asthma, tracheostomy, DM I, GERD, and recurrent respiratory infections on prophylactic abx. She was treated for bilateral pneumonia on 02/19 as an inpatient. Admitted today for hypoxia, SOB and lethargy. Urine culture ordered. Estimated pk parameters: t1/2: 12 hours ke=0.056 Plan Vancomycin * Loading dose: 1750mg (25mg/kg) iv x 1 * Maintenance dose: 1000 mg (15mg/kg) iv q 12 hours * Goal trough for HCAP: 15-20 mcg/mL * Trough level ordered for 03/27 @1930 Zosyn * Pt received 4.5 gm in the ER * 3.375 gm IV q 8 hours Levaquin is dosed at 750mg po daily and is not a consult. Pharmacy will continue to follow and will adjust dose/frequency as necessary. Thank you
[2017-03-25] MEDS: ALBUT/IPRATROP 3MG/0.5MG NEB 3 ML VIAL INH SCH (16:10)
[2017-03-25 16:11] VITALS: PULSE 70; O2SAT 90
[2017-03-25] MEDS: INSULIN ASPART 100 UNITS/ML 3 ML PEN SC SCH ×2 (17:05→20:57)
[2017-03-25] MEDS ORDERED: DC ALL PREVIOUSLY ORDERED DIABETES MEDS ONE (17:15)
[2017-03-25] MEDS ORDERED: INSULIN GLARGINE SOLOSTAR 100 UNITS/ML 3 ML PEN SC SCH (17:15)
--- NOTE | 2017-03-25 18:00 | Pulmonary Consultation ---
History General Date of Service: Mar 25, 2017. Chief Complaint: Shortness of breat Stated Complaint: Hypoxia, Shortness Of Breath HPI The patient is a 51 year old female who presents to [facility] with complaints of Hypoxia, Shortness Of Breath. The patient's primary care provider is Vladimir Lucio M.D.. Mariah has a history of chronic respiratory failure for many years, tracheal stenosis, s/p tracheostomy, not on chronic vent support, h/o high functioning Down syndrome. She has been complaining of cough, shortness fo breath at the [facility], with sputum production, denies fever or chills. In the hospital she requires high FiO2, currently on 100% trach collar. She was treated for pneumonia a month ago, but reportedly has improved. LAst week she was placed on supplemental O2, but the caregiver noticed that the O2 sats kept decreasing Historian: patient Review of Systems Per HPI, all other systems reviewed and negative Past Medical History Past Medical History: Down's syndrome DM chronic respiratory failure, s/p tracheostomy Hypothyroidism Past Medical History: asthma Family History Myocardial infarction Social History Hx Tobacco Use In Past Year?: No Smoking Status: Never Smoker Marital status: single Housing status: assisted living Occupational Status: disabled Immunizations History of Influenza Vaccine: N/A Influenza Vaccine Date: Dec 18, 2005 History of Tetanus Vaccine?: Unknown Tetanus Immunization Date: May 22, 2001 History of Pneumococcal: Yes Pneumococcal Date: August 15, 2012 History of Hepatitis B Vaccine: No History of MDRO History of MDRO: No Allergies Coded Allergies: Cephalosporins (Verified Allergy, Intermediate, rash per mother, 12/27/16) TOLERATED ZOSYN IN PAST ADMISSION AND 05/17/15 Cefaclor (Verified Allergy, Unknown, HIVES, 02/19/17) TOLERATED ZOSYN IN PAST ADMISSION AND 05/17/15 Sertraline (Verified Allergy, Unknown, INTOLERANCE, 12/27/16) Current Medications Reported Home Medications Medications Dose Route/Sig Max Daily Dose Days Date Category Dose Instructions Bactrim Ds 800MG/160MG (Trimethoprim/Sulfamethoxazole) Tab 1 Tab PO HS 03/25/17 Reported ON CONTINUOUSLY PER MATERNAL FETAL PHYSICIAN Sodium Chloride 0.9% (Sodium Chloride (Gu Irrigant)) 0.9 % Mary Anne DAILY 02/19/17 Reported USE TO CLEAN TRACH TUBE DAILY. Dex4 (Glucose-Vitamin C) 1 Chw Chw 1 Tab PO DAILY PRN 02/19/17 Reported Insta-Glucose (Dextrose (Diabetic Use)) 77.4 % Gel 1 Tube PO UD PRN 02/19/17 Reported INSA-GLUCOSE 40% GEL Anti-Fungal (Clotrimazole (Topical)) 1 % Cre 1 Appln TOP TID PRN 02/19/17 Reported APPLY 3 TIMES DAILY NEEDED FOR RASH AROUND TRACH Prilosec (Omeprazole) 20 Mg Capcr 20 Mg PO QAM 02/19/17 Reported Singulair (Montelukast Sodium) 10 Mg Tab 10 Mg PO HS 02/19/17 Reported Levothyroxine Sodium 150 Mcg Tab 150 Mcg PO QAM 90 02/19/17 Reported Danielle (Fexofenadine Hcl) 180 Mg Tab 180 Mg PO HS 02/19/17 Reported Celexa (Citalopram Hydrobromide) 40 Mg Tab 40 Mg PO DAILY 02/19/17 Reported Flovent Hfa (Fluticasone Propionate) 120 Puffs/62863 Mcg Aero 2 Puffs INH AMHS 02/19/17 Reported USE WITH AEROCHAMBER. RINSE MOUTH AFTER USE. * FLOVENT HFA 110 MCG * Oyster Shell Calcium + D (Calcium Carbonate-Cholecalcife) 1 Tab Tab 1 Tab PO TID 02/19/17 Reported MORNING, AFTERNOON AND BEDTIME Serevent Diskus (Salmeterol Xinafoate) 50 Mcg Aerp 1 Puff INH AMPM 02/19/17 Reported Mucinex Ext Rel (Guaifenesin) 600 Mg Tab 600 Mg PO Q12 02/19/17 Reported Proventil 0.083% 2.5MG/3ML (Albuterol Sulf) 2.5 Mg/3 Ml Nebu 2.5 Mg INH TID 02/19/17 Reported TAKE VIA TRACH MASK Lantus (Insulin Glargine) 100 Unit/Ml Inj 0 SC UD PRN 02/19/17 Reported USE IF NEEDED FOR A PUMP MALFUNCTION Ventolin Hfa (Albuterol) 200 Puffs/02052 Mcg Aers 2 Puffs INH QID PRN 11/15/16 Reported Therems M (Multiple Vitamins W/ Minerals) 1 Tab Tab 1 Tab PO DAILY 11/15/16 Reported Lipitor (Atorvastatin Calcium) 10 Mg Tab 10 Mg PO QPM 09/19/16 Reported Phenergan (Promethazine HCl) 12.5 Mg Tab 12.5 Mg PO Q8 PRN 05/16/15 Reported novoLOG INSULIN PUMP (Insulin Aspart) 1 Ea Inj 1 Ea N/A UD 07/28/13 Reported Tylenol (Acetaminophen) 500 Mg Tab 1,000 Mg PO Q6H PRN 07/28/13 Reported MAX 8 TABLETS IN 24 HOURS Diflucan (Fluconazole) 150 Mg Tab 150 Mg PO DIRECTED PRN 07/28/13 Reported Lasix (Furosemide) 20 Mg Tab 20 Mg PO DAILY PRN 12/13/12 Reported GIVE WITH WEIGHT GAIN OF 3 POUNDS OR MORE Glucagon Emergency Kit (Glucagon) 1 Mg Kit 1 Mg IM PRN 08/07/12 Reported PRN FOR LOW BLOOD SUGAR EPISODES Phos-Flur (Sodium Fluoride (Dental)) 1.1 % Gel 0.5 Oz PO HS 08/07/12 Reported RINSE MOUTH AND EXPECTORATE Motrin (Ibuprofen) 600 Mg Tab 600 Mg PO TID PRN 01/15/11 Reported Oxygen Gas 4 Liters NA PRN 01/15/11 Reported 4L/MIN 30% VIA TRACH HS Zinc Sulfate 220 Mg Cap 220 Mg PO AMHS 10/15/06 Reported Physical Physical Exam Vital Signs: Date Time Temp Pulse Resp B/P (MAP) Pulse Ox O2 Delivery O2 Flow Rate FiO2 03/25/17 16:11 70 18 90 Free Flow/Blowby 100 03/25/17 15:49 37.0 60 24 104/63 95 Trach Collar 8.0 03/25/17 14:38 56 18 148/85 98 Room Air 03/25/17 12:30 64 03/25/17 12:18 129/72 03/25/17 11:14 97 Trach Collar 8.0 03/25/17 11:13 97 Trach Collar 8.0 03/25/17 10:30 36.3 61 16 129/72 98 Mask 8.0 Trach Collar 03/25/17 10:28 58 General Appearance: WELL-APPEARING, NO APPARENT DISTRESS Eyes: PERRLA Neck: other (Metallic tracheostomy, no discharge around it, no erythema ) Respiratory: rhonchi (b/l) Cardiovasular: REGULAR RATE/RHYTHM, NORMAL S1S2 Abdomen: NON TENDER, NO REBOUND, NO GUARDING Upper Extremities: NO EDEMA Lower Extremities: edema Neuro: ALERT, ORIENTED x 3, NORMAL MOTOR EXAM Diagnostics Labs Results Past 24 Hours Test 03/25/17 12:10 Range/Units White Blood Count 3.65 4.8-10.8 K/uL Red Blood Count 3.29 4.2-5.4 M/uL Hemoglobin 11.2 12.0-16.0 g/dL Hematocrit 33.8 37-47 % Mean Corpuscular Volume 102.7 80-100 fL Mean Corpuscular Hemoglobin 34.0 25-34 pg Mean Corpuscular Hemoglobin Concent 33.1 32-36 g/dl Platelet Count 224 130-400 K/uL Mean Platelet Volume 10.2 7.4-10.4 fL Neutrophils (%) (Auto) 58.0 % Lymphocytes (%) (Auto) 31.0 % Monocytes (%) (Auto) 8.5 % Eosinophils (%) (Auto) 1.4 % Basophils (%) (Auto) 0.8 % Neutrophils # (Auto) 2.12 1.4-6.5 K/uL Lymphocytes # (Auto) 1.13 1.2-3.4 K/uL Monocytes # (Auto) 0.31 0.11-0.59 K/uL Eosinophils # (Auto) 0.05 0-0.5 K/uL Basophils # (Auto) 0.03 0-0.2 K/uL RDW Standard Deviation 51.9 36.4-46.3 fL RDW Coefficient of Variation 13.9 11.5-14.5 % Immature Granulocyte % (Auto) 0.3 % Immature Granulocyte # (Auto) 0.01 0.00-0.02 K/uL Prothrombin Time 10.3 9.0-12.0 SECONDS Prothromb Time International Ratio 1.0 0.9-1.1 Activated Partial Thromboplast Time 34.0 21.0-31.0 SECONDS Partial Thromboplastin Ratio 1.3 Sodium Level 138 136-145 mmol/L Potassium Level 4.7 3.5-5.1 mmol/L Chloride Level 103 98-107 mmol/L Carbon Dioxide Level 29 21-32 mmol/L Anion Gap 6.0 3-11 mmol/L Blood Urea Nitrogen 16 7-18 mg/dl Creatinine 0.90 0.60-1.20 mg/dl Est Creatinine Clear Calc Drug Dose 62.4 ml/min Estimated GFR () 85.2 Estimated GFR (Non- 73.5 BUN/Creatinine Ratio 17.8 10-20 Random Glucose 159 70-99 mg/dl Calcium Level 8.7 8.5-10.1 mg/dl Total Bilirubin 0.3 0.2-1 mg/dl Aspartate Amino Transf (AST/SGOT) 13 15-37 U/L Alanine Aminotransferase (ALT/SGPT) 20 12-78 U/L Alkaline Phosphatase 77 45-117 U/L Troponin I < 0.015 0-0.045 ng/ml Total Protein 6.4 6.4-8.2 gm/dl Albumin 2.8 3.4-5.0 gm/dl Globulin 3.6 2.5-4.0 gm/dl Albumin/Globulin Ratio 0.8 0.9-2 Radiology Interpretation: other (Bibasilar parenchymal infiltrates slightly variable from the prior exam. Slight progression on the right with slight improvement in the left. ) Impression Assessment and Plan 51 year old female with chronic tracheostomy, Down's syndrome, presents with acute hypoxic respiratory failure secondary to tracheobronchitis. Plan: Agree with Abx, on Zosyn, Levaquin and Vancomycin Pulmonary toilet, frequent suction, chest PT Standing steroids for now Bronchodilators OOB to chair For the time being, no need for bronchoscopy DVT prophylaxis: Lovenox Time spent with the patient, reviewing the chart, greater than 25 minutes
[2017-03-25 18:53] VITALS: BP_SYST 108; BP_SYST 88; BP_DIAS 67; BP_DIAS 69; PULSE 67; TEMP 37.1; O2SAT 93
[2017-03-25] MEDS ORDERED: SODIUM CHLORIDE 0.9% 1000ML 1,000 ML IV STA (19:57)
[2017-03-25] MEDS: METHYLPREDNISOLONE IV 40 MG in SYRINGE 0 ML IV SCH (20:21)
[2017-03-25] MEDS: PIPERACILL/TAZOBAC IV 3.375 GM in DEXTROSE 5% 100ML 100 ML IV SCH (20:21)
[2017-03-25] MEDS: FEXOFENADINE HCL 180 MG TAB PO SCH (20:58)
[2017-03-25] MEDS: ATORVASTATIN 10 MG TAB PO SCH (20:58)
[2017-03-25] MEDS: MONTELUKAST SOD 10 MG TAB PO SCH (20:58)
[2017-03-25] MEDS: SALMETEROL XINAFOATE 50MCG 28 BLISTER INH INH SCH (20:58)
[2017-03-25] MEDS: GUAIFENESIN 600 MG TABCR PO SCH (20:58)
[2017-03-25] MEDS: ZINC SULFATE 220 MG CAP PO SCH (20:58)
[2017-03-25] MEDS: FLUTICASONE HFA 110MCG INHALER INH SCH (20:59)
[2017-03-25] MEDS: ENOXAPARIN 40 MG/0.4 ML SYR SC SCH (20:59)
[2017-03-25] MEDS ORDERED: VANCOMYCIN INJ 1,000 MG in SODIUM CHLORIDE 0.9% 250ML 250 ML IV SCH (21:00)
[2017-03-25 23:38] VITALS: BP 97/65; PULSE 68; TEMP 36.9; O2SAT 88
[2017-03-26] VITALS (11 sets, daily range): BP systolic 102–120; BP diastolic 53–68; PULSE 55–98; TEMP 36.6–36.8; O2SAT 92–98; BMI 29.6
[2017-03-26] MEDS ORDERED: NURSING VERBAL MED ORDER ONE (01:00)
[2017-03-26] MEDS ORDERED: VANCOMYCIN INJ 1,000 MG in SODIUM CHLORIDE 0.9% 250ML 250 ML IV SCH (02:00)
[2017-03-26] MEDS ORDERED: INSULIN ASPART 100 UNITS/ML 3 ML PEN SC SCH ×2 (02:00→13:30)
[2017-03-26] MEDS: METHYLPREDNISOLONE IV 40 MG in SYRINGE 0 ML IV SCH ×4 (02:16→20:16)
[2017-03-26] MEDS: PIPERACILL/TAZOBAC IV 3.375 GM in DEXTROSE 5% 100ML 100 ML IV SCH (04:33)
[2017-03-26] MEDS: LEVOTHYROXINE 150 MCG TAB PO SCH (05:17)
[2017-03-26 05:43] LABS: HEMOGLOBIN 11.5 g/dL (12.0-16.0); MEAN CELL VOLUME 103.2 fL (80-100); MEAN CORPUSCULAR HEMOGLOBIN 33.9 pg (25-34); MEAN CORPUSCULAR HGB CONC 32.9 g/dl (32-36); MEAN PLATELET VOLUME 10.2 fL (7.4-10.4); PLATELET COUNT 219 K/uL (130-400); RED CELL DISTRIBUTION WIDTH CV 13.9 % (11.5-14.5); RED CELL DISTRIBUTION WIDTH SD 52.2 fL (36.4-46.3); WHITE BLOOD COUNT 5.76 K/uL (4.8-10.8)
[2017-03-26 06:06] LABS: CALCIUM 8.3 mg/dl (8.5-10.1); CREATININE 0.9 mg/dl (0.60-1.20); POTASSIUM 4.2 mmol/L (3.5-5.1)
[2017-03-26] MEDS: ALBUT/IPRATROP 3MG/0.5MG NEB 3 ML VIAL INH SCH ×4 (07:09→20:15)
[2017-03-26] MEDS: FLUTICASONE HFA 110MCG INHALER INH SCH ×2 (08:42→20:17)
[2017-03-26] MEDS: SALMETEROL XINAFOATE 50MCG 28 BLISTER INH INH SCH ×2 (08:42→20:18)
[2017-03-26] MEDS: SODIUM CHLORIDE 0.9% IRRIG 1,000 ML PLCT IR SCH (08:42)
--- NOTE | 2017-03-26 08:42 | Clinical Documentation Query ---
CLINICAL DOCUMENTATION QUERY QUERY 1 OF 2 A 51 year old female who presents to the Emergency Room with complaints of persistent lethargy and low oxygen saturation starting this morning. In your clinical opinion is this patient being managed for: ( x) Acute respiratory failure with hypoxia ( ) Not Agree ( ) Other explanation of clinical findings (Please Explain) ( ) Unable to determine (Please Define) ( ) Need to Discuss The medical record reflects the following clinical findings, treatment, and risk factors. Clinical Indicators: Hypoxia, lethargy, altered mental status, pulse ox 88%, O2 8L via trach, resp rate 24, prod cough, wheezing, SOB Treatment: Duonebs, O2, Solu-Medrol IV, telemetry Risk Factors: Down Syndrome, pneumonia, asthma, trach QUERY 2 OF 2 In your clinical opinion is this patient being managed for: ( x) Encephalopathy, resolved ( ) Not Agree ( ) Other explanation of clinical findings (Please Explain) ( ) Unable to determine (Please Define) ( ) Need to Discuss The medical record reflects the following clinical findings, treatment, and risk factors. Clinical Indicators: Lethargic, altered mental status, hypoxia Treatment: O2, IV hydration, IV antibiotics, telemetry, aspiration precautions Risk Factors: Down Syndrome, pneumonia, trach, hypoxia Please clarify and document your clinical opinion in the progress notes and discharge summary. Terms such as "probable", "suspected", "likely", "questionable", "possible", or "still to be ruled out" are acceptable. IF IN AGREEMENT, YOU MUST DOCUMENT ABOVE DIAGNOSTIC STATEMENT IN DAILY PROGRESS NOTES AND DISCHARGE SUMMARY. This document is not part of the patient's record. Thank You, Emely Jorgensen RN [phone]
[2017-03-26] MEDS: CITALOPRAM 40 MG TAB PO SCH (08:43)
[2017-03-26] MEDS: GUAIFENESIN 600 MG TABCR PO SCH ×2 (08:43→20:19)
[2017-03-26] MEDS: CEROVITE ADV FORMULA TAB PO SCH (08:43)
[2017-03-26] MEDS: PANTOprazole SOD 40 MG TAB PO SCH (08:43)
[2017-03-26] MEDS: ZINC SULFATE 220 MG CAP PO SCH ×2 (08:43→20:21)
[2017-03-26] MEDS: INSULIN ASPART 100 UNITS/ML 3 ML PEN SC SCH ×3 (08:50→20:15)
--- NOTE | 2017-03-26 08:59 | Pulmonology Progress Note ---
Pulmonary Progress Note Date of Service Mar 26, 2017. Attending Dr. Lynette Evangelista This is a 51-year-old female with Down syndrome that was admitted yesterday for increasing shortness of breath and concern for hypercapnia. The patient lives in a assisted and the caregiver noticed a change in mentation as well as increased effort for respiration. The patient was brought in and admitted to the telemetry floor. She received aggressive pulmonary toilet overnight and today she reports that she is back to baseline. Currently FiO2 is a 40% with a trach collar. Patient is generating cough and sputum production of yellowish sputum. There is no hemoptysis. Patient states that she has no shortness of breath today. She did have some chest tightness around the xiphoid yesterday which is now resolved. She denies any other chest pain or tightness. She has no abdominal pain. She denies fever. She has no other acute complaints. Objective GENERAL : No acute distress. Pleasant. Talking. Joking EYES: No icterus, gaze conjugate NOSE: No evidence of epistaxis MOUTH: No lesions or candidiasis. NECK: Supple. No stridor LUNGS: Patient has bibasilar coarse rales. Rhonchi has now resolved. She has no expiratory wheezes at this time. HEART: Regular, rate controlled. No evidence of ectopy ABDOMEN: Soft, NT, ND, BS Present EXTREMITIES: No LE edema, pedal pulses intact NEURO: A&O Assessment & Plan Assessment: Bronchiectasis Chronic tracheostomy with Antonio metal trach Hypoxia Down syndrome DMII Plan: ACUTE ON CHRONIC RESPIRATORY FAILURE * Day #2 of levofloxacin, Zosyn, vancomycin - we'll discuss de-escalation of antibiotics * Continue aggressive pulmonary toilet with vibration bed and manual percussion * Continue deep suction of tracheostomy * Continue trach collar for supplemental O2 * Continue fexofenadine and fluticasone * Continue guaifenesin * Out of bed to chair * Ambulate as tolerated * No indication for bronchoscopy today as patient is mobilizing secretions HISTORY OF BRONCHIECTASIS * Bronchoscopy was suggested at last outpatient appointment with pulmonology * At this point patient is moving secretions well with aggressive pulmonary toilet * Will avoid bronchoscopy at this time as long as patient continues to improve DIABETES MELLITUS TYPE 2 * Continue Lantus * Continue NovoLog sliding scale * Fphqh-mp-xosa glucose 202 and 270; random glucose 248 * Anion gap of five * Hemoglobin A1c 12/12/17 was 10.6 * Consider insulin drip during inpatient stay HYPOTHYROIDISM * Continue levothyroxine DVT PROPHYLAXIS * Continue enoxaparin Thank you for including us in the care of this patient. Please refer to Dr. Ojeda's addendum for further recommendations. We will continue to follow this patient with you Physician Supervision Note: I was present with Saroj Charles PA-C during the history and exam. I discussed the case with the resident and agree with the findings and plan as documented in the note. Any exceptions or clarifications are listed here: 1 year old female with chronic tracheostomy, Down's syndrome, presents with acute hypoxic respiratory failure secondary to tracheobronchitis. She improved significantly over 24 hrs Plan: Agree with Abx, on Zosyn, Levaquin and Vancomycin Pulmonary toilet, frequent suction, chest PT Steroid taper Bronchodilators OOB to chair For the time being, no need for bronchoscopy Documented By: Kirk Ojeda MD Data Medications: Current Inpatient Medications Medications (Trade) Dose Ordered Sig/Rene Route Start Time Stop Time Status Last Admin Dose Admin Enoxaparin Sodium (Lovenox Inj) 40 mg Q24H SC 03/25/17 21:00 04/24/17 14:14 03/25/17 20:59 40 MG Acetaminophen (Tylenol Tab) 650 mg Q4H PRN PO 03/25/17 14:15 04/24/17 14:14 Al Hydrox/Mg Hydrox/Simethicone (Maalox Max Susp) 15 ml Q4H PRN PO 03/25/17 14:15 04/24/17 14:14 Magnesium Hydroxide (Milk Of Magnesia Susp) 30 ml Q12H PRN PO 03/25/17 14:15 04/24/17 14:14 Ondansetron HCl (Zofran Inj) 4 mg Q6H PRN IV 03/25/17 14:15 04/24/17 14:14 Polyethylene (Miralax Powder Packet) 17 gm DAILY PRN PO 03/25/17 14:15 04/24/17 14:14 Albuterol (Ventolin Hfa Inhaler) 2 puffs QID PRN INH 03/25/17 14:15 04/24/17 14:14 Atorvastatin Calcium (Lipitor Tab) 10 mg QPM PO 03/25/17 21:00 04/24/17 20:59 03/25/17 20:58 10 MG Citalopram Hydrobromide (celeXA TAB) 40 mg DAILY PO 03/26/17 09:00 04/25/17 08:59 Fexofenadine HCl (Danielle Tab) 180 mg HS PO 03/25/17 21:00 04/24/17 20:59 03/25/17 20:58 180 MG Fluticasone Propionate (Flovent Hfa 110MCG Inhaler) 2 puffs AMHS INH 03/25/17 21:00 04/24/17 20:59 03/25/17 20:59 2 PUFFS Guaifenesin (Mucinex Contr Rel Tab) 600 mg Q12 PO 03/25/17 21:00 04/24/17 20:59 03/25/17 20:58 600 MG Levothyroxine Sodium (Synthroid Tab) 150 mcg DAILYBB PO 03/26/17 06:00 04/25/17 06:59 03/26/17 05:17 150 MCG Montelukast Sodium (Singulair Tab) 10 mg HS PO 03/25/17 21:00 04/24/17 20:59 03/25/17 20:58 10 MG Multivitamins/ Minerals (Multivitamin W/ Minerals Tab) 1 tab DAILY PO 03/26/17 09:00 04/25/17 08:59 Salmeterol Xinafoate (Serevent Diskus Inh) 1 puffs BID INH 03/25/17 21:00 04/24/17 20:59 03/25/17 20:58 1 PUFFS Sodium Chloride (Sodium Chloride 0.9% Irrig) 10 ml DAILY IR 03/26/17 09:00 04/25/17 08:59 Zinc Sulfate (Zinc Sulfate Cap) 220 mg AMHS PO 03/25/17 21:00 04/24/17 20:59 03/25/17 20:58 220 MG Pantoprazole Sodium (Protonix Tab) 40 mg QAM PO 03/26/17 09:00 04/25/17 08:59 Levofloxacin (Levaquin Tab) 750 mg DAILY@11 PO 03/26/17 11:00 04/02/17 10:59 Piperacillin Sod/ Tazobactam Sod 3.375 gm/Dextrose 115 ml @ 28.75 mls/ hr Q8H IV 03/25/17 20:00 04/01/17 19:59 03/26/17 04:33 28.75 MLS/HR Methylprednisolone Sodium Succinate 40 mg/Syringe 0.64 ml @ 1.5 mls/min Q6H IV 03/25/17 20:00 04/24/17 19:59 03/26/17 02:16 1.5 MLS/MIN Albuterol/ Ipratropium (Duoneb) 3 ml QIDR INH 03/25/17 16:00 04/24/17 15:59 03/26/17 07:09 3 ML Miscellaneous Information (Consult Glycemic Management Pharmacy) 1 ea UD PRN N/A 03/25/17 14:56 04/24/17 14:55 Glucose (Glucose 40% Gel) 15-30 GRAMS 15 GRAMS... UD PRN PO 03/25/17 15:00 04/24/17 14:59 Glucose (Glucose Chew Tab) 4-8 Tablets 4 Tabl... UD PRN PO 03/25/17 15:00 04/24/17 14:59 Dextrose (Dextrose 50% 50ML Syringe) 25-50ML OF 50% DW IV FOR... UD PRN IV 03/25/17 15:00 04/24/17 14:59 Glucagon (Glucagon Inj) 1 mg UD PRN SQ 03/25/17 15:00 04/24/17 14:59 Vancomycin HCl (Consult) 1 ea UD PRN N/A 03/25/17 15:00 04/24/17 14:59 Piperacillin Sod/ Tazobactam Sod (Consult) 1 ea UD PRN N/A 03/25/17 15:00 04/24/17 14:59 Vancomycin HCl 1000 mg/Sodium Chloride 270 ml @ 125 mls/hr Q14H IV 03/26/17 02:00 04/01/17 15:59 03/26/17 02:15 125 MLS/HR Insulin Glargine (Lantus Solostar Pen) 15 units Q24H SC 03/25/17 17:15 04/24/17 17:14 03/25/17 17:05 15 UNITS Insulin Aspart (novoLOG ASPART) SLIDING SCALE ACHS SC 03/25/17 16:00 04/24/17 15:59 03/25/17 17:05 8 UNITS Heparin Sodium (Porcine) (Heparin 100 Unit/ml 5ml Flush) 5 ml PRN PRN IV 03/26/17 01:30 04/25/17 01:29 Vital Signs: Date Time Temp Pulse Resp B/P (MAP) Pulse Ox O2 Delivery O2 Flow Rate FiO2 03/26/17 08:00 36.6 76 20 106/68 (81) 98 Trach Collar 03/26/17 07:11 55 18 97 Trach Collar 50 03/26/17 04:00 High Flow Oxygen 8.0 100 03/26/17 03:38 36.6 62 18 102/62 (75) 93 Trach Collar 10.0 03/26/17 00:00 High Flow Oxygen 8.0 100 03/25/17 23:38 36.9 68 20 97/65 (76) 88 Trach Collar 10.0 03/25/17 20:00 High Flow Oxygen 8.0 100 03/25/17 18:53 37.1 67 18 88/67 (74) 93 High Flow Oxygen 108/69 (82) 03/25/17 16:11 70 18 90 Free Flow/Blowby 100 03/25/17 15:49 37.0 60 24 104/63 95 Trach Collar 8.0 03/25/17 14:38 56 18 148/85 98 Room Air 03/25/17 12:30 64 03/25/17 12:18 129/72 03/25/17 11:14 97 Trach Collar 8.0 03/25/17 11:13 97 Trach Collar 8.0 03/25/17 10:30 36.3 61 16 129/72 98 Mask 8.0 Trach Collar 03/25/17 10:28 58 Laboratory Results: Last 24 Hours Test 03/25/17 12:10 03/25/17 16:22 03/25/17 20:09 03/26/17 01:52 White Blood Count 3.65 K/uL Red Blood Count 3.29 M/uL Hemoglobin 11.2 g/dL Hematocrit 33.8 % Mean Corpuscular Volume 102.7 fL Mean Corpuscular Hemoglobin 34.0 pg Mean Corpuscular Hemoglobin Concent 33.1 g/dl Platelet Count 224 K/uL Mean Platelet Volume 10.2 fL Neutrophils (%) (Auto) 58.0 % Lymphocytes (%) (Auto) 31.0 % Monocytes (%) (Auto) 8.5 % Eosinophils (%) (Auto) 1.4 % Basophils (%) (Auto) 0.8 % Neutrophils # (Auto) 2.12 K/uL Lymphocytes # (Auto) 1.13 K/uL Monocytes # (Auto) 0.31 K/uL Eosinophils # (Auto) 0.05 K/uL Basophils # (Auto) 0.03 K/uL RDW Standard Deviation 51.9 fL RDW Coefficient of Variation 13.9 % Immature Granulocyte % (Auto) 0.3 % Immature Granulocyte # (Auto) 0.01 K/uL Prothrombin Time 10.3 SECONDS Prothromb Time International Ratio 1.0 Activated Partial Thromboplast Time 34.0 SECONDS Partial Thromboplastin Ratio 1.3 Sodium Level 138 mmol/L Potassium Level 4.7 mmol/L Chloride Level 103 mmol/L Carbon Dioxide Level 29 mmol/L Anion Gap 6.0 mmol/L Blood Urea Nitrogen 16 mg/dl Creatinine 0.90 mg/dl Est Creatinine Clear Calc Drug Dose 62.4 ml/min Estimated GFR () 85.2 Estimated GFR (Non- 73.5 BUN/Creatinine Ratio 17.8 Random Glucose 159 mg/dl Calcium Level 8.7 mg/dl Total Bilirubin 0.3 mg/dl Aspartate Amino Transf (AST/SGOT) 13 U/L Alanine Aminotransferase (ALT/SGPT) 20 U/L Alkaline Phosphatase 77 U/L Troponin I < 0.015 ng/ml Total Protein 6.4 gm/dl Albumin 2.8 gm/dl Globulin 3.6 gm/dl Albumin/Globulin Ratio 0.8 Bedside Glucose 219 mg/dl 87 mg/dl 202 mg/dl Test 03/26/17 05:16 03/26/17 06:05 03/26/17 06:09 White Blood Count 5.76 K/uL Red Blood Count 3.39 M/uL Hemoglobin 11.5 g/dL Hematocrit 35.0 % Mean Corpuscular Volume 103.2 fL Mean Corpuscular Hemoglobin 33.9 pg Mean Corpuscular Hemoglobin Concent 32.9 g/dl RDW Standard Deviation 52.2 fL RDW Coefficient of Variation 13.9 % Platelet Count 219 K/uL Mean Platelet Volume 10.2 fL Sodium Level 136 mmol/L Potassium Level 4.2 mmol/L Chloride Level 105 mmol/L Carbon Dioxide Level 26 mmol/L Anion Gap 5.0 mmol/L Blood Urea Nitrogen 18 mg/dl Creatinine 0.90 mg/dl Est Creatinine Clear Calc Drug Dose 55.7 ml/min Estimated GFR () 85.2 Estimated GFR (Non- 73.5 BUN/Creatinine Ratio 20.0 Random Glucose 248 mg/dl Calcium Level 8.3 mg/dl Urine Color YELLOW Urine Appearance CLEAR Urine pH 5.0 Urine Specific [place] 1.021 Urine Protein NEG Urine Glucose (UA) TRACE Urine Ketones TRACE Urine Occult Blood NEG Urine Nitrite NEG Urine Bilirubin NEG Urine Urobilinogen NEG Urine Leukocyte Esterase NEG Bedside Glucose 270 mg/dl
[2017-03-26] MEDS ORDERED: INSULIN GLARGINE SOLOSTAR 100 UNITS/ML 3 ML PEN SC ONE ×2 (10:45→11:30)
[2017-03-26] MEDS ORDERED: INSULIN HUMAN REGULAR PER UNIT 7 UNITS in SYRINGE 6.93 ML IV SCH (11:45)
[2017-03-26] MEDS ORDERED: NovoLIN-R INSULIN PER UNIT CHARGE SQ ONE (11:45)
[2017-03-26] MEDS: LEVOFLOXACIN 750 MG TAB PO SCH (11:57)
[2017-03-26] MEDS: INSULIN REGULAR 250 UNITS in SODIUM CHLORIDE 0.9% 250ML 250 ML IV SCH ×10 (13:24→23:21)
--- NOTE | 2017-03-26 13:42 | Pharmacy Progress Note ---
Pharmacy Glycemic Short Note 2 Date of Service Mar 26, 2017. OUTPATIENT ANTIDIABETIC REGIMEN: * NovoLog insulin pump * Basal rates vary every 3 hrs from 0.25 - 0.6 units/hr (total basal insulin dose = 9.6 units/day) * Bolus * SF: 65 during the day and 70 at HS * CR: 1: 15 * Goal range 100 -140 mg/dl Item Value Date Time Bedside Glucose 219 mg/dl H 03/25/17 1622 Bedside Glucose 87 mg/dl 03/25/172008 Bedside Glucose 202 mg/dl H 03/26/17 0152 Bedside Glucose 270 mg/dl H 03/26/17 0609 Bedside Glucose > 600 mg/dl *H 03/26/17 1117 Bedside Glucose 539 mg/dl *H 03/26/17 1257 ASSESSMENT: * 51yo T1DM with a history of "brittle diabetes" and frequent BSG swings. Pt known to pharmacy from previous admissions/glycemic consults. Most recently just last month * Recent A1c is elevated at 10.2% * Pt initiated on IV abx + high dose IV steroids for acute on chronic respiratory failure. * Outpatient basal insulin dose = 9.6 units/day --> started at 15 units/day last evening. This was given immediately after SQ insulin pump was removed. * Started aggressive CF/CR for steroid induced hyperglycemia. Outpatient CF = 65-70, inpatient CF = 20. Outpatient CR = 15, inpatient CR = 7. * Despite aggressive Sq insulin dosing stated yesterday SEVERE steroid induced hyperglycemia resulted. * BSG >600 mg/dl prior to lunch. --> gave 0.1 unit/kg (7 units) IV regular insulin bolus + 7 units SQ regular insulin + 20 units of Lantus * Re-checked BSG in 1 hr --> still critically high at 539, 524 mg/dl. Discussed with nursing and hospitalist - starting IV insulin infusion * Pt does not know how to manage her own pump (caregiver manages pump). Even if pt was able to manage pump, it would likely not be able to treat severe steroid induced hyperglycemia. * Spoke with patient caregiver Alicia today. She will take the pump home. We will resume the pump just prior to d/c * Alicia requested fixed doses of NPH to cover steroid induced hyperglycemia at the time of discharge if pt is to be continued on prednisone taper. PLAN FOR INPATIENT GLYCEMIC CONTROL: * Hold outpatient SQ insulin pump * Will resume just prior to d/c as patient does not know how to manage pump * Start IV insulin infusion protocol per Severe Stress * Will omit bolus since patient just received IV insulin bolus * Goal range 120 - 160 mg/dl * Basal insulin: * Continue basal insulin with IV insulin infusion to facilitate transition off * Lantus 20 units given 03/26/17 @ ~ 1200 * Bolus insulin: * Nutritional / Prandial insulin per carb ratio of 1 unit per 7 grams CHO consumed Looking ahead to discharge: * Since Patient does not know how to manipulate her pump, her caregiver, Alicia , has requested that we formulate a fixed dose of NPH to be given once daily with prednisone dosing if patient is d/c on prednisone taper. She said that this worked well after Feb 2017 admission. Will determine NPH insulin dosing based on dosing of prednisone.
--- NOTE | 2017-03-26 14:30 | Progress Note ---
Subjective Date of Service: Mar 26, 2017. Subjective Pt evaluation today including: conversation w/ patient, physical exam, lab review, conversation w/ bridal sales consultant, review of inpatient medication list Pain: no pain PO Intake: adequate Voiding: no voiding problems breathing much better, she is alert, responsive, laughing, no distress or confusion discussed with Saroj Charles, continue with steroids, percussion, vibration vest, no need for bronchoscopy sugars markedly elevated, d/w pharmacy, started on insulin infusion Problem List Medical Problems: (1) Elevated troponin Status: Acute (2) Leukocytosis Status: Acute (3) Pneumonia Status: Acute (4) Sepsis with organ dysfunction Status: Acute Review of Systems Respiratory: + cough, + shortness of breath, + dyspnea on exertion All Other Systems: Reviewed and Negative Medications Current Inpatient Medications Medications (Trade) Dose Ordered Sig/Rene Route Start Time Stop Time Status Last Admin Dose Admin Enoxaparin Sodium (Lovenox Inj) 40 mg Q24H SC 03/25/17 21:00 04/24/17 14:14 03/25/17 20:59 40 MG Acetaminophen (Tylenol Tab) 650 mg Q4H PRN PO 03/25/17 14:15 04/24/17 14:14 Al Hydrox/Mg Hydrox/Simethicone (Maalox Max Susp) 15 ml Q4H PRN PO 03/25/17 14:15 04/24/17 14:14 Magnesium Hydroxide (Milk Of Magnesia Susp) 30 ml Q12H PRN PO 03/25/17 14:15 04/24/17 14:14 Ondansetron HCl (Zofran Inj) 4 mg Q6H PRN IV 03/25/17 14:15 04/24/17 14:14 Polyethylene (Miralax Powder Packet) 17 gm DAILY PRN PO 03/25/17 14:15 04/24/17 14:14 Albuterol (Ventolin Hfa Inhaler) 2 puffs QID PRN INH 03/25/17 14:15 04/24/17 14:14 Atorvastatin Calcium (Lipitor Tab) 10 mg QPM PO 03/25/17 21:00 04/24/17 20:59 03/25/17 20:58 10 MG Citalopram Hydrobromide (celeXA TAB) 40 mg DAILY PO 03/26/17 09:00 04/25/17 08:59 03/26/17 08:43 40 MG Fexofenadine HCl (Danielle Tab) 180 mg HS PO 03/25/17 21:00 04/24/17 20:59 03/25/17 20:58 180 MG Fluticasone Propionate (Flovent Hfa 110MCG Inhaler) 2 puffs AMHS INH 03/25/17 21:00 04/24/17 20:59 03/26/17 08:42 2 PUFFS Guaifenesin (Mucinex Contr Rel Tab) 600 mg Q12 PO 03/25/17 21:00 04/24/17 20:59 03/26/17 08:43 600 MG Levothyroxine Sodium (Synthroid Tab) 150 mcg DAILYBB PO 03/26/17 06:00 04/25/17 06:59 03/26/17 05:17 150 MCG Montelukast Sodium (Singulair Tab) 10 mg HS PO 03/25/17 21:00 04/24/17 20:59 03/25/17 20:58 10 MG Multivitamins/ Minerals (Multivitamin W/ Minerals Tab) 1 tab DAILY PO 03/26/17 09:00 04/25/17 08:59 03/26/17 08:43 1 TAB Salmeterol Xinafoate (Serevent Diskus Inh) 1 puffs BID INH 03/25/17 21:00 04/24/17 20:59 03/26/17 08:42 1 PUFFS Sodium Chloride (Sodium Chloride 0.9% Irrig) 10 ml DAILY IR 03/26/17 09:00 04/25/17 08:59 03/26/17 08:42 10 ML Zinc Sulfate (Zinc Sulfate Cap) 220 mg AMHS PO 03/25/17 21:00 04/24/17 20:59 03/26/17 08:43 220 MG Pantoprazole Sodium (Protonix Tab) 40 mg QAM PO 03/26/17 09:00 04/25/17 08:59 03/26/17 08:43 40 MG Levofloxacin (Levaquin Tab) 750 mg DAILY@11 PO 03/26/17 11:00 04/02/17 10:59 03/26/17 11:57 750 MG Methylprednisolone Sodium Succinate 40 mg/Syringe 0.64 ml @ 1.5 mls/min Q6H IV 03/25/17 20:00 04/24/17 19:59 03/26/17 13:26 1.5 MLS/MIN Albuterol/ Ipratropium (Duoneb) 3 ml QIDR INH 03/25/17 16:00 04/24/17 15:59 03/26/17 11:26 3 ML Miscellaneous Information (Consult Glycemic Management Pharmacy) 1 ea UD PRN N/A 03/25/17 14:56 04/24/17 14:55 Glucose (Glucose 40% Gel) 15-30 GRAMS 15 GRAMS... UD PRN PO 03/25/17 15:00 04/24/17 14:59 Glucose (Glucose Chew Tab) 4-8 Tablets 4 Tabl... UD PRN PO 03/25/17 15:00 04/24/17 14:59 Dextrose (Dextrose 50% 50ML Syringe) 25-50ML OF 50% DW IV FOR... UD PRN IV 03/25/17 15:00 04/24/17 14:59 Glucagon (Glucagon Inj) 1 mg UD PRN SQ 03/25/17 15:00 04/24/17 14:59 Heparin Sodium (Porcine) (Heparin 100 Unit/ml 5ml Flush) 5 ml PRN PRN IV 03/26/17 01:30 04/25/17 01:29 Insulin Human Regular 250 units/ Sodium Chloride 252.5 ml @ 0 mls/hr Q24H IV 03/26/17 13:30 04/25/17 13:29 03/26/17 13:24 2.3 MLS/HR Insulin Aspart (novoLOG ASPART) SLIDING SCALE PCHS SC 03/26/17 18:00 04/25/17 17:59 Insulin Aspart (novoLOG ASPART) SLIDING SCALE TODAY@1330 SC 03/26/17 13:30 03/26/17 15:00 03/26/17 13:25 7 UNITS Insulin Glargine (Lantus Solostar Pen) 25 units Q24H SC 03/27/17 09:00 04/26/17 08:59 Objective Vital Signs Date Time Temp Pulse Resp B/P (MAP) Pulse Ox O2 Delivery O2 Flow Rate FiO2 03/26/17 11:30 71 18 98 Trach Collar 40 03/26/17 11:28 36.7 98 18 112/67 (82) 92 High Flow Oxygen 10.0 35 03/26/17 10:37 36.6 76 20 98 8.0 03/26/17 08:00 36.6 76 20 106/68 (81) 98 Trach Collar 03/26/17 07:30 Trach Collar 8.0 40 03/26/17 07:11 55 18 97 Trach Collar 50 03/26/17 04:00 High Flow Oxygen 8.0 100 03/26/17 03:38 36.6 62 18 102/62 (75) 93 Trach Collar 10.0 03/26/17 00:00 High Flow Oxygen 8.0 100 03/25/17 23:38 36.9 68 20 97/65 (76) 88 Trach Collar 10.0 03/25/17 20:00 High Flow Oxygen 8.0 100 03/25/17 18:53 37.1 67 18 88/67 (74) 93 High Flow Oxygen 108/69 (82) 03/25/17 16:11 70 18 90 Free Flow/[place] 100 03/25/17 15:49 37.0 60 24 104/63 95 Trach Collar 8.0 03/25/17 14:38 56 18 148/85 98 Room Air Physical Exam General Appearance: WD/WN, no apparent distress Eyes: normal inspection, EOMI, sclerae normal ENT: normal ENT inspection, hearing grossly normal, pharynx normal Neck: supple, no adenopathy, no JVD, trachea midline, + pertinent finding ( tracheostomy in place) Respiratory/Chest: chest non-tender, no respiratory distress, no accessory muscle use, + rhonchi (bilaterally) Cardiovascular: regular rate, rhythm, no edema, no gallop, no JVD, no murmur Abdomen: normal bowel sounds, non tender, soft, no organomegaly Extremities: normal range of motion, non-tender, normal inspection, no pedal edema, no calf tenderness Neurologic/Psychiatric: strategic advisor II-XII nml as tested, no motor/sensory deficits, alert, normal mood/affect, oriented x 3 Skin: normal color, warm/dry, no rash Laboratory Results Last 24 Hours Test 03/25/17 16:22 03/25/17 20:09 03/26/17 01:52 03/26/17 05:16 Bedside Glucose 219 mg/dl 87 mg/dl 202 mg/dl White Blood Count 5.76 K/uL Red Blood Count 3.39 M/uL Hemoglobin 11.5 g/dL Hematocrit 35.0 % Mean Corpuscular Volume 103.2 fL Mean Corpuscular Hemoglobin 33.9 pg Mean Corpuscular Hemoglobin Concent 32.9 g/dl RDW Standard Deviation 52.2 fL RDW Coefficient of Variation 13.9 % Platelet Count 219 K/uL Mean Platelet Volume 10.2 fL Sodium Level 136 mmol/L Potassium Level 4.2 mmol/L Chloride Level 105 mmol/L Carbon Dioxide Level 26 mmol/L Anion Gap 5.0 mmol/L Blood Urea Nitrogen 18 mg/dl Creatinine 0.90 mg/dl Est Creatinine Clear Calc Drug Dose 55.7 ml/min Estimated GFR () 85.2 Estimated GFR (Non- 73.5 BUN/Creatinine Ratio 20.0 Random Glucose 248 mg/dl Calcium Level 8.3 mg/dl Test 03/26/17 06:05 03/26/17 06:09 03/26/17 11:17 03/26/17 11:34 Urine Color YELLOW Urine Appearance CLEAR Urine pH 5.0 Urine Specific [place] 1.021 Urine Protein NEG Urine Glucose (UA) TRACE Urine Ketones TRACE Urine Occult Blood NEG Urine Nitrite NEG Urine Bilirubin NEG Urine Urobilinogen NEG Urine Leukocyte Esterase NEG Bedside Glucose 270 mg/dl > 600 mg/dl Random Glucose 616 mg/dl Beta-Hydroxybutyric Acid 1.90 mg/dL Test 03/26/17 12:57 Bedside Glucose 539 mg/dl Assessment and Plan 51 y/o female with a history of Down syndrome, asthma, tracheal stenosis s/p tracheostomy (1998), recurrent respiratory infections on prophylactic abx, DM I , depression, hypothyroidism, CAMILLA, and GERD who presented to the ED on 03/25 with lethargy, cough, shortness of breath and hypoxia. Pt received DuoNeb en route to ED from EMS. Pt arrived to ED afebrile, VSS. Originally up to 10L through trach collar, now down to 8L. No leukocytosis, labs grossly unremarkable. Pt received Levaquin and Zosyn in ED. Acute hypoxic respiratory failure due to bilateral pneumonia, bronchiectasis responding well to treatment, continue Vanco, Zosyn and Levaquin continue Solu Medrol 40mg q6 (per pulmonary) continue pulmonary toilet, vibration vest, nebulizers pulmonary following, no plans for bronchoscopy Metabolic encephalopathy: due to hypoxia, pneumonia resolved, alert, conversive DM type I, with hyperglycemia secondary to steroids spoke with pharmacy, will start insulin infusion since sugars 500-600 will try to wean Solu Medrol once okay with pulmonary Depression -Continue citalopram 40 mg PO qd Hypothyroidism -Continue Synthroid 150 mcg PO qd GERD -Prilosec converted to Protonix DVT prophylaxis -Enoxaparin 40 mg SC q24h -ARELI Mendoza Code Status -Level I, FULL RESUSCITATION STATUS transfer to medical floor today
[2017-03-26] MEDS: MONTELUKAST SOD 10 MG TAB PO SCH (20:18)
[2017-03-26] MEDS: ATORVASTATIN 10 MG TAB PO SCH (20:19)
[2017-03-26] MEDS: FEXOFENADINE HCL 180 MG TAB PO SCH (20:21)
[2017-03-26] MEDS: ENOXAPARIN 40 MG/0.4 ML SYR SC SCH (20:21)
[2017-03-26] MEDS ORDERED: INSULIN GLARGINE SOLOSTAR 100 UNITS/ML 3 ML PEN SC SCH (21:00)
[2017-03-27] VITALS (8 sets, daily range): BP systolic 109–123; BP diastolic 61–68; PULSE 50–71; TEMP 36.6–37; O2SAT 91–96; BMI 30.3
[2017-03-27] MEDS ORDERED: INSULIN ASPART 100 UNITS/ML 3 ML PEN SC SCH
[2017-03-27] MEDS: INSULIN REGULAR 250 UNITS in SODIUM CHLORIDE 0.9% 250ML 250 ML IV SCH ×18 (00:50→22:49)
[2017-03-27] MEDS: METHYLPREDNISOLONE IV 40 MG in SYRINGE 0 ML IV SCH ×3 (01:45→13:36)
[2017-03-27] MEDS ORDERED: NURSING VERBAL MED ORDER ONE ×2 (02:15→04:15)
[2017-03-27] MEDS: DEXTROSE 50% 50 ML SYR IV PRN ×2 (06:30→15:28)
[2017-03-27] MEDS: LEVOTHYROXINE 150 MCG TAB PO SCH (06:40)
[2017-03-27 06:55] LABS: HEMATOCRIT 32.9 % (37-47); HEMOGLOBIN 10.8 g/dL (12.0-16.0); MEAN CELL VOLUME 102.8 fL (80-100); MEAN CORPUSCULAR HEMOGLOBIN 33.8 pg (25-34); MEAN CORPUSCULAR HGB CONC 32.8 g/dl (32-36); MEAN PLATELET VOLUME 10.2 fL (7.4-10.4); PLATELET COUNT 225 K/uL (130-400); RED CELL DISTRIBUTION WIDTH CV 14.4 % (11.5-14.5); RED CELL DISTRIBUTION WIDTH SD 53.9 fL (36.4-46.3); WHITE BLOOD COUNT 11.62 K/uL (4.8-10.8)
[2017-03-27 07:22] LABS: CALCIUM 8.8 mg/dl (8.5-10.1); CREATININE 0.74 mg/dl (0.60-1.20); POTASSIUM 4.4 mmol/L (3.5-5.1)
[2017-03-27] MEDS: SALMETEROL XINAFOATE 50MCG 28 BLISTER INH INH SCH ×2 (08:45→21:08)
[2017-03-27] MEDS: FLUTICASONE HFA 110MCG INHALER INH SCH ×2 (08:45→21:08)
[2017-03-27] MEDS: CITALOPRAM 40 MG TAB PO SCH (08:46)
[2017-03-27] MEDS: ZINC SULFATE 220 MG CAP PO SCH ×2 (08:46→21:09)
[2017-03-27] MEDS: CEROVITE ADV FORMULA TAB PO SCH (08:46)
[2017-03-27] MEDS: PANTOprazole SOD 40 MG TAB PO SCH (08:46)
[2017-03-27] MEDS: GUAIFENESIN 600 MG TABCR PO SCH ×2 (08:46→21:10)
[2017-03-27] MEDS: INSULIN ASPART 100 UNITS/ML 3 ML PEN SC SCH ×4 (08:51→21:00)
[2017-03-27] MEDS ORDERED: INSULIN GLARGINE SOLOSTAR 100 UNITS/ML 3 ML PEN SC SCH ×2 (09:00)
[2017-03-27] MEDS: SODIUM CHLORIDE 0.9% IRRIG 1,000 ML PLCT IR SCH (11:05)
[2017-03-27] MEDS: ALBUT/IPRATROP 3MG/0.5MG NEB 3 ML VIAL INH SCH ×3 (11:25→20:00)
[2017-03-27] MEDS: LEVOFLOXACIN 750 MG TAB PO SCH (12:49)
--- NOTE | 2017-03-27 15:43 | Hospitalist Progress Note ---
Hospitalist Progress Note Date of Service Mar 27, 2017. (Gloria Ibrahim PA-C) Subjective Pt evaluation today including: conversation w/ patient, conversation w/ family , physical exam, chart review, lab review, review of studies, review of inpatient medication list Patient seen and evaluated. No acute events overnight. Patient is sleeping upon examination but easily opens eyes to verbal/tactile cues, smiles, and quickly falls back asleep. Keeps moving her head in different directions and O2 was not near trach and saturations at 88%. Did replace O2 around trach. She has had labile glucose with extreme highs and extreme lows. Breath sounds continue to be course but no respiratory distress noted. Did re-evaluate this evening and patient is alert and eating dinner. Family at bedside. She appears to be comfortable. Says she feels fine and denies SOB. Still experiencing a harsh cough but appears to be moving secretions. Additional Comments: ROS deferred. Patient opens eyes to verbal/tactile cu (Gloria Ibrahim PA-C) Medications Current Inpatient Medications Medications (Trade) Dose Ordered Sig/Rene Route Start Time Stop Time Status Last Admin Dose Admin Enoxaparin Sodium (Lovenox Inj) 40 mg Q24H SC 03/25/17 21:00 04/24/17 14:14 03/26/17 20:21 40 MG Acetaminophen (Tylenol Tab) 650 mg Q4H PRN PO 03/25/17 14:15 04/24/17 14:14 Al Hydrox/Mg Hydrox/Simethicone (Maalox Max Susp) 15 ml Q4H PRN PO 03/25/17 14:15 04/24/17 14:14 Magnesium Hydroxide (Milk Of Magnesia Susp) 30 ml Q12H PRN PO 03/25/17 14:15 04/24/17 14:14 Ondansetron HCl (Zofran Inj) 4 mg Q6H PRN IV 03/25/17 14:15 04/24/17 14:14 Polyethylene (Miralax Powder Packet) 17 gm DAILY PRN PO 03/25/17 14:15 04/24/17 14:14 Albuterol (Ventolin Hfa Inhaler) 2 puffs QID PRN INH 03/25/17 14:15 04/24/17 14:14 Atorvastatin Calcium (Lipitor Tab) 10 mg QPM PO 03/25/17 21:00 04/24/17 20:59 03/26/17 20:19 10 MG Citalopram Hydrobromide (celeXA TAB) 40 mg DAILY PO 03/26/17 09:00 04/25/17 08:59 03/27/17 08:46 40 MG Fexofenadine HCl (Danielle Tab) 180 mg HS PO 03/25/17 21:00 04/24/17 20:59 03/26/17 20:21 180 MG Fluticasone Propionate (Flovent Hfa 110MCG Inhaler) 2 puffs AMHS INH 03/25/17 21:00 04/24/17 20:59 03/27/17 08:45 2 PUFFS Guaifenesin (Mucinex Contr Rel Tab) 600 mg Q12 PO 03/25/17 21:00 04/24/17 20:59 03/27/17 08:46 600 MG Levothyroxine Sodium (Synthroid Tab) 150 mcg DAILYBB PO 03/26/17 06:00 04/25/17 06:59 03/27/17 06:40 150 MCG Montelukast Sodium (Singulair Tab) 10 mg HS PO 03/25/17 21:00 04/24/17 20:59 03/26/17 20:18 10 MG Multivitamins/ Minerals (Multivitamin W/ Minerals Tab) 1 tab DAILY PO 03/26/17 09:00 04/25/17 08:59 03/27/17 08:46 1 TAB Salmeterol Xinafoate (Serevent Diskus Inh) 1 puffs BID INH 03/25/17 21:00 04/24/17 20:59 03/27/17 08:45 1 PUFFS Sodium Chloride (Sodium Chloride 0.9% Irrig) 10 ml DAILY IR 03/26/17 09:00 04/25/17 08:59 03/27/17 11:05 10 ML Zinc Sulfate (Zinc Sulfate Cap) 220 mg AMHS PO 03/25/17 21:00 04/24/17 20:59 03/27/17 08:46 220 MG Pantoprazole Sodium (Protonix Tab) 40 mg QAM PO 03/26/17 09:00 04/25/17 08:59 03/27/17 08:46 40 MG Levofloxacin (Levaquin Tab) 750 mg DAILY@11 PO 03/26/17 11:00 04/02/17 10:59 03/27/17 12:49 750 MG Albuterol/ Ipratropium (Duoneb) 3 ml QIDR INH 03/25/17 16:00 04/24/17 15:59 03/27/17 14:24 3 ML Miscellaneous Information (Consult Glycemic Management Pharmacy) 1 ea UD PRN N/A 03/25/17 14:56 04/24/17 14:55 Glucose (Glucose 40% Gel) 15-30 GRAMS 15 GRAMS... UD PRN PO 03/25/17 15:00 04/24/17 14:59 Glucose (Glucose Chew Tab) 4-8 Tablets 4 Tabl... UD PRN PO 03/25/17 15:00 04/24/17 14:59 Dextrose (Dextrose 50% 50ML Syringe) 25-50ML OF 50% DW IV FOR... UD PRN IV 03/25/17 15:00 04/24/17 14:59 03/27/17 15:28 25 ML Glucagon (Glucagon Inj) 1 mg UD PRN SQ 03/25/17 15:00 04/24/17 14:59 Heparin Sodium (Porcine) (Heparin 100 Unit/ml 5ml Flush) 5 ml PRN PRN IV 03/26/17 01:30 04/25/17 01:29 Insulin Human Regular 250 units/ Sodium Chloride 252.5 ml @ 0 mls/hr Q24H IV 03/26/17 13:30 04/25/17 13:29 03/27/17 18:19 2.1 MLS/HR Insulin Aspart (novoLOG ASPART) SLIDING SCALE [facility] SC 03/26/17 18:00 04/25/17 17:59 03/27/17 17:36 4 UNITS Insulin Glargine (Lantus Solostar Pen) 15 units Q24H SC 03/27/17 09:00 04/26/17 08:59 03/27/17 08:52 15 UNITS Methylprednisolone Sodium Succinate 40 mg/Syringe 1 ml @ 1.5 mls/min Q12H IV 03/28/17 09:00 04/24/17 19:59 (Gloria Ibrahim, ALBAN) Objective Vital Signs Date Time Temp Pulse Resp B/P (MAP) Pulse Ox O2 Delivery O2 Flow Rate FiO2 03/27/17 14:24 71 18 91 Trach Collar 30 03/27/17 11:25 61 18 96 Trach Collar 30 03/27/17 08:00 94 Trach Collar 10.0 30 03/27/17 06:57 37.0 61 18 109/67 (81) 94 Room Air 03/27/17 04:53 Trach Collar 10.0 03/26/17 23:59 36.8 78 18 120/53 (75) 97 Room Air 03/26/17 20:15 97 18 94 Trach Collar 30 03/26/17 16:00 97 Trach Collar 10.0 30 (Gloria Ibrahim, PA-C) Physical Exam General Appearance: WD/WN, no apparent distress Eyes: sclerae normal Neck: supple, no JVD, trachea midline, + pertinent finding (trach in place without surround erythema) Respiratory/Chest: no respiratory distress, no accessory muscle use, + pertinent finding (course diffusely) Cardiovascular: regular rate, rhythm, no gallop, no murmur Abdomen: normal bowel sounds, non tender, soft Neurologic/Psychiatric: alert Skin: normal color, warm/dry (Gloria Ibrahim, PA-C) Laboratory Results Last 24 Hours Test 03/26/17 15:42 03/26/17 16:26 03/26/17 18:02 03/26/17 18:49 Bedside Glucose 560 mg/dl 430 mg/dl 593 mg/dl 500 mg/dl Test 03/26/17 19:53 03/26/17 21:22 03/26/17 22:17 03/26/17 23:15 Bedside Glucose 502 mg/dl 365 mg/dl 268 mg/dl 211 mg/dl Test 03/27/17 00:12 03/27/17 01:12 03/27/17 01:32 03/27/17 01:50 Bedside Glucose 221 mg/dl 86 mg/dl 76 mg/dl 130 mg/dl Test 03/27/17 03:03 03/27/17 03:55 03/27/17 05:01 03/27/17 05:51 Bedside Glucose 188 mg/dl 127 mg/dl 124 mg/dl White Blood Count 11.62 K/uL Red Blood Count 3.20 M/uL Hemoglobin 10.8 g/dL Hematocrit 32.9 % Mean Corpuscular Volume 102.8 fL Mean Corpuscular Hemoglobin 33.8 pg Mean Corpuscular Hemoglobin Concent 32.8 g/dl RDW Standard Deviation 53.9 fL RDW Coefficient of Variation 14.4 % Platelet Count 225 K/uL Mean Platelet Volume 10.2 fL Sodium Level 140 mmol/L Potassium Level 4.4 mmol/L Chloride Level 109 mmol/L Carbon Dioxide Level 26 mmol/L Anion Gap 5.0 mmol/L Blood Urea Nitrogen 27 mg/dl Creatinine 0.74 mg/dl Est Creatinine Clear Calc Drug Dose 68.2 ml/min Estimated GFR () 108.0 Estimated GFR (Non- 93.1 BUN/Creatinine Ratio 36.0 Random Glucose 98 mg/dl Calcium Level 8.8 mg/dl Test 03/27/17 05:59 03/27/17 06:26 03/27/17 06:50 03/27/17 07:01 Bedside Glucose 97 mg/dl 43 mg/dl 262 mg/dl 231 mg/dl Test 03/27/17 07:30 03/27/17 08:26 03/27/17 09:25 03/27/17 10:35 Bedside Glucose 215 mg/dl 204 mg/dl 342 mg/dl 244 mg/dl Test 03/27/17 11:28 03/27/17 12:30 03/27/17 13:31 03/27/17 14:32 Bedside Glucose 170 mg/dl 123 mg/dl 153 mg/dl 96 mg/dl Test 03/27/17 14:46 03/27/17 14:48 03/27/17 14:50 Bedside Glucose 230 mg/dl 98 mg/dl 94 mg/dl (Gloria Ibrahim, PA-C) Assessment and Plan 51 y/o female with a history of Down syndrome, asthma, tracheal stenosis s/p tracheostomy (1998), recurrent respiratory infections on prophylactic abx, DM I , depression, hypothyroidism, CAMILLA, and GERD who presented to the ED on 03/25 with lethargy, cough, shortness of breath and hypoxia. Pt received DuoNeb en route to ED from EMS. Pt arrived to ED afebrile, VSS. Originally up to 10L through trach collar, now down to 8L. No leukocytosis, labs grossly unremarkable. Pt received Levaquin and Zosyn in ED. Acute Hypoxic Respiratory Failure 2/2 B/L Pneumonia/Bronchiectasis: - Levaquin 750 mg daily - Methylprednisolone 40 mg IV BID - Duonebs RENE and Ventolin PRN; Singulair 10 mg daily; Salmeterol 1 puff BID - Continue aggressive pulmonary toilet and trach suction/care - Pulmonary following - appreciate recommendations - begin tapering of steroids and no indication at this time for bronchoscopy Metabolic Encephalopathy 2/2 Hypoxia/Infection: RESOLVED - Was a little lethargic this AM and was satting at 88% but has improved throughout the day - currently conversant, laughs, and responding appropriately T1DM with Hyperglycemia: - Glucose with extreme highs and lows and hopefully will better stablize as steroids are tapered - Glycemic management - appreciate assistance with insulin infusion and wean Depression: STABLE - Citalopram 40 mg daily Hypothyroidism: - Synthroid 150 mcg daily DVT Prophylaxis: Lovenox 40 mg SC daily Code Status: FULL RESUSCITATION Disposition: - Resident of a fpc - pending clinical improvement - possible D/C next 2- [address] [facility] stay due to: multiple IV medications needed Discharge planning: other (Care Home) (Gloria Ibrahim, PA-C) Attending Attestation: Pt seen/examined, chart reviewed, care plan d/w HILARIO Ibrahim. I agree w/ the tanner components of her documentation. Pt eating during the visit & watching TV. No complaints. No issues per staff. Tolerating trach collar. VSS no fever gen - NAD; dysmorphic Down's features neck - trach in place heart - RRR lungs - course BS b/l with wheeze b/l abd - soft, NT ext - no edema A/P: 1. acute hypoxic resp failure 2nd to bronchiectasis exacerbation & pneumonia - improving. Cont levaquin; wean steroids. 2. chronic trach status 3. down's syndrome 4. T1DM, uncontrolled due to steroids - pharmacy managing mother updated progressing slowly Marcell Sage MD (Marcell Sage MD)
--- NOTE | 2017-03-27 17:13 | Pulmonology Progress Note ---
Pulmonary Progress Note Date of Service Mar 27, 2017. Attending Dr. Ojeda Subjective Patient admitted for hypoxemic respiratory failure. Discussed with mother today and with case management nurse from the correction. Patient was doing well and then became hypoxic and cyanotic. Patient has a history of bronchiectasis and follows with Dr. Salas as an outpatient. Patient is alert and oriented today and pleasant. She denies a shortness of breath. She has had some sputum clearance. She has no acute distress. Objective GENERAL : No acute distress. Pleasant. EYES: No icterus, gaze conjugate NOSE: No evidence of epistaxis MOUTH: No lesions or candidiasis. NECK: Supple. No stridor LUNGS: Patient continues with bibasilar coarse rales but seems to have much better aeration throughout all lung dunham. She has no expiratory wheezes at this time. HEART: Regular, rate controlled. No evidence of ectopy ABDOMEN: Soft, NT, ND, BS Present EXTREMITIES: No LE edema, pedal pulses intact NEURO: A&O Assessment & Plan Assessment: Bronchiectasis Chronic tracheostomy with Antonio metal trach Hypoxia Down syndrome DMII Plan: ACUTE ON CHRONIC RESPIRATORY FAILURE * Day #3 of levofloxacin, * Zosyn, vancomycin de-escalated after day two * Begin to taper steroids * Continue aggressive pulmonary toilet with vibration bed and manual percussion every shift * Continue deep suction of tracheostomy as needed * Continue trach collar for supplemental O2 - currently at 40% * Continue fexofenadine and fluticasone * Continue guaifenesin * Out of bed to chair as tolerated * Ambulate as tolerated * No indication for bronchoscopy as patient is mobilizing secretions and oxygenating well HISTORY OF BRONCHIECTASIS * Bronchoscopy was suggested at last outpatient appointment with pulmonology * At this point patient is moving secretions well with aggressive pulmonary toilet * Will avoid bronchoscopy at this time as long as patient continues to improve * Discussed with patient's mother as patient has Down syndrome and she will follow-up with Dr. Salas as an outpatient DIABETES MELLITUS TYPE 2 * Continue Lantus * Continue NovoLog sliding scale * [id number] glucose continues to be elevated * Hemoglobin A1c 02/26/17 was 10.6 * Glycemic consult placed - pharmacy is managing HYPOTHYROIDISM * Continue levothyroxine DVT PROPHYLAXIS * Continue enoxaparin Thank you for including us in the care of this patient. Please refer to Dr. Ojeda's addendum for further recommendations. I was present with Saroj Charles PA-C during the history and exam. I discussed the case with the resident and agree with the findings and plan as documented in the note. Any exceptions or clarifications are listed here: 51 year old female with chronic tracheostomy, Down's syndrome, presents with acute hypoxic respiratory failure secondary to tracheobronchitis. Much improved today, on room air Plan: Agree with Abx, on Zosyn, Levaquin and Vancomycin Pulmonary toilet, frequent suction, chest PT Steroid taper Bronchodilators OOB to chair For the time being, no need for bronchoscopy Follow up with Dr Salas as outpatient, will sign off for now Documented By: Kirk Ojeda MD Data Medications: Current Inpatient Medications Medications (Trade) Dose Ordered Sig/Rene Route Start Time Stop Time Status Last Admin Dose Admin Enoxaparin Sodium (Lovenox Inj) 40 mg Q24H SC 03/25/17 21:00 04/24/17 14:14 03/26/17 20:21 40 MG Acetaminophen (Tylenol Tab) 650 mg Q4H PRN PO 03/25/17 14:15 04/24/17 14:14 Al Hydrox/Mg Hydrox/Simethicone (Maalox Max Susp) 15 ml Q4H PRN PO 03/25/17 14:15 04/24/17 14:14 Magnesium Hydroxide (Milk Of Magnesia Susp) 30 ml Q12H PRN PO 03/25/17 14:15 04/24/17 14:14 Ondansetron HCl (Zofran Inj) 4 mg Q6H PRN IV 03/25/17 14:15 04/24/17 14:14 Polyethylene (Miralax Powder Packet) 17 gm DAILY PRN PO 03/25/17 14:15 04/24/17 14:14 Albuterol (Ventolin Hfa Inhaler) 2 puffs QID PRN INH 03/25/17 14:15 04/24/17 14:14 Atorvastatin Calcium (Lipitor Tab) 10 mg QPM PO 03/25/17 21:00 04/24/17 20:59 03/26/17 20:19 10 MG Citalopram Hydrobromide (celeXA TAB) 40 mg DAILY PO 03/26/17 09:00 04/25/17 08:59 03/27/17 08:46 40 MG Fexofenadine HCl (Danielle Tab) 180 mg HS PO 03/25/17 21:00 04/24/17 20:59 03/26/17 20:21 180 MG Fluticasone Propionate (Flovent Hfa 110MCG Inhaler) 2 puffs AMHS INH 03/25/17 21:00 04/24/17 20:59 03/27/17 08:45 2 PUFFS Guaifenesin (Mucinex Contr Rel Tab) 600 mg Q12 PO 03/25/17 21:00 04/24/17 20:59 03/27/17 08:46 600 MG Levothyroxine Sodium (Synthroid Tab) 150 mcg DAILYBB PO 03/26/17 06:00 04/25/17 06:59 03/27/17 06:40 150 MCG Montelukast Sodium (Singulair Tab) 10 mg HS PO 03/25/17 21:00 04/24/17 20:59 03/26/17 20:18 10 MG Multivitamins/ Minerals (Multivitamin W/ Minerals Tab) 1 tab DAILY PO 03/26/17 09:00 04/25/17 08:59 03/27/17 08:46 1 TAB Salmeterol Xinafoate (Serevent Diskus Inh) 1 puffs BID INH 03/25/17 21:00 04/24/17 20:59 03/27/17 08:45 1 PUFFS Sodium Chloride (Sodium Chloride 0.9% Irrig) 10 ml DAILY IR 03/26/17 09:00 04/25/17 08:59 03/27/17 11:05 10 ML Zinc Sulfate (Zinc Sulfate Cap) 220 mg AMHS PO 03/25/17 21:00 04/24/17 20:59 03/27/17 08:46 220 MG Pantoprazole Sodium (Protonix Tab) 40 mg QAM PO 03/26/17 09:00 04/25/17 08:59 03/27/17 08:46 40 MG Levofloxacin (Levaquin Tab) 750 mg DAILY@11 PO 03/26/17 11:00 04/02/17 10:59 03/27/17 12:49 750 MG Methylprednisolone Sodium Succinate 40 mg/Syringe 0.64 ml @ 1.5 mls/min Q6H IV 03/25/17 20:00 04/24/17 19:59 03/27/17 13:36 1.5 MLS/MIN Albuterol/ Ipratropium (Duoneb) 3 ml QIDR INH 03/25/17 16:00 04/24/17 15:59 03/27/17 14:24 3 ML Miscellaneous Information (Consult Glycemic Management Pharmacy) 1 ea UD PRN N/A 03/25/17 14:56 04/24/17 14:55 Glucose (Glucose 40% Gel) 15-30 GRAMS 15 GRAMS... UD PRN PO 03/25/17 15:00 04/24/17 14:59 Glucose (Glucose Chew Tab) 4-8 Tablets 4 Tabl... UD PRN PO 03/25/17 15:00 04/24/17 14:59 Dextrose (Dextrose 50% 50ML Syringe) 25-50ML OF 50% DW IV FOR... UD PRN IV 03/25/17 15:00 04/24/17 14:59 03/27/17 15:28 25 ML Glucagon (Glucagon Inj) 1 mg UD PRN SQ 03/25/17 15:00 04/24/17 14:59 Heparin Sodium (Porcine) (Heparin 100 Unit/ml 5ml Flush) 5 ml PRN PRN IV 03/26/17 01:30 04/25/17 01:29 Insulin Human Regular 250 units/ Sodium Chloride 252.5 ml @ 0 mls/hr Q24H IV 03/26/17 13:30 04/25/17 13:29 03/27/17 15:49 2.1 MLS/HR Insulin Aspart (novoLOG ASPART) SLIDING SCALE PCHS SC 03/26/17 18:00 04/25/17 17:59 03/27/17 12:53 6 UNITS Insulin Glargine (Lantus Solostar Pen) 15 units Q24H SC 03/27/17 09:00 04/26/17 08:59 03/27/17 08:52 15 UNITS I & O: 24-Hour Column 03/28/17 08:00 Intake Total 380 ml Output Total 650 ml Balance -270 ml Vital Signs: Date Time Temp Pulse Resp B/P (MAP) Pulse Ox O2 Delivery O2 Flow Rate FiO2 03/27/17 15:33 37.0 58 18 115/68 (84) 91 Trach Collar 9.0 03/27/17 14:24 71 18 91 Trach Collar 30 03/27/17 11:25 61 18 96 Trach Collar 30 03/27/17 08:00 94 Trach Collar 10.0 30 03/27/17 06:57 37.0 61 18 109/67 (81) 94 Room Air 03/27/17 04:53 Trach Collar 10.0 03/26/17 23:59 36.8 78 18 120/53 (75) 97 Room Air 03/26/17 20:15 97 18 94 Trach Collar 30 Laboratory Results: Last 24 Hours Test 03/26/17 18:02 03/26/17 18:49 03/26/17 19:53 03/26/17 21:22 Bedside Glucose 593 mg/dl 500 mg/dl 502 mg/dl 365 mg/dl Test 03/26/17 22:17 03/26/17 23:15 03/27/17 00:12 03/27/17 01:12 Bedside Glucose 268 mg/dl 211 mg/dl 221 mg/dl 86 mg/dl Test 03/27/17 01:32 03/27/17 01:50 03/27/17 03:03 03/27/17 03:55 Bedside Glucose 76 mg/dl 130 mg/dl 188 mg/dl 127 mg/dl Test 03/27/17 05:01 03/27/17 05:51 03/27/17 05:59 03/27/17 06:26 Bedside Glucose 124 mg/dl 97 mg/dl 43 mg/dl White Blood Count 11.62 K/uL Red Blood Count 3.20 M/uL Hemoglobin 10.8 g/dL Hematocrit 32.9 % Mean Corpuscular Volume 102.8 fL Mean Corpuscular Hemoglobin 33.8 pg Mean Corpuscular Hemoglobin Concent 32.8 g/dl RDW Standard Deviation 53.9 fL RDW Coefficient of Variation 14.4 % Platelet Count 225 K/uL Mean Platelet Volume 10.2 fL Sodium Level 140 mmol/L Potassium Level 4.4 mmol/L Chloride Level 109 mmol/L Carbon Dioxide Level 26 mmol/L Anion Gap 5.0 mmol/L Blood Urea Nitrogen 27 mg/dl Creatinine 0.74 mg/dl Est Creatinine Clear Calc Drug Dose 68.2 ml/min Estimated GFR () 108.0 Estimated GFR (Non- 93.1 BUN/Creatinine Ratio 36.0 Random Glucose 98 mg/dl Calcium Level 8.8 mg/dl Test 03/27/17 06:50 03/27/17 07:01 03/27/17 07:30 03/27/17 08:26 Bedside Glucose 262 mg/dl 231 mg/dl 215 mg/dl 204 mg/dl Test 03/27/17 09:25 03/27/17 10:35 03/27/17 11:28 03/27/17 12:30 Bedside Glucose 342 mg/dl 244 mg/dl 170 mg/dl 123 mg/dl Test 03/27/17 13:31 03/27/17 14:32 03/27/17 14:46 03/27/17 14:48 Bedside Glucose 153 mg/dl 96 mg/dl 230 mg/dl 98 mg/dl Test 03/27/17 14:50 03/27/17 15:02 03/27/17 15:19 03/27/17 15:46 Bedside Glucose 94 mg/dl 107 mg/dl 89 mg/dl 146 mg/dl Test 03/27/17 16:46 Bedside Glucose 146 mg/dl
[2017-03-27] MEDS ORDERED: VANCOMYCIN TROUGH ONE (19:30)
[2017-03-27] MEDS: FEXOFENADINE HCL 180 MG TAB PO SCH (21:09)
[2017-03-27] MEDS: ATORVASTATIN 10 MG TAB PO SCH (21:10)
[2017-03-27] MEDS: MONTELUKAST SOD 10 MG TAB PO SCH (21:10)
[2017-03-27] MEDS: ENOXAPARIN 40 MG/0.4 ML SYR SC SCH (21:11)
[2017-03-28] VITALS (9 sets, daily range): BP systolic 107–139; BP diastolic 66–83; PULSE 46–84; TEMP 36.6–37.2; O2SAT 91–96; Ht 144.8 cm; Wt 67.1 kg
[2017-03-28] MEDS: DEXTROSE 50% 50 ML SYR IV PRN (00:51)
[2017-03-28] MEDS: INSULIN REGULAR 250 UNITS in SODIUM CHLORIDE 0.9% 250ML 250 ML IV SCH ×15 (01:08→22:02)
[2017-03-28 05:30] LABS: HEMATOCRIT 32.9 % (37-47); HEMOGLOBIN 10.9 g/dL (12.0-16.0); MEAN CELL VOLUME 103.5 fL (80-100); MEAN CORPUSCULAR HEMOGLOBIN 34.3 pg (25-34); MEAN CORPUSCULAR HGB CONC 33.1 g/dl (32-36); MEAN PLATELET VOLUME 9.7 fL (7.4-10.4); PLATELET COUNT 192 K/uL (130-400); RED CELL DISTRIBUTION WIDTH CV 14.4 % (11.5-14.5); RED CELL DISTRIBUTION WIDTH SD 54.7 fL (36.4-46.3); WHITE BLOOD COUNT 11.08 K/uL (4.8-10.8)
[2017-03-28 05:56] LABS: CALCIUM 8.1 mg/dl (8.5-10.1); CREATININE 0.84 mg/dl (0.60-1.20); POTASSIUM 3.8 mmol/L (3.5-5.1)
[2017-03-28] MEDS: LEVOTHYROXINE 150 MCG TAB PO SCH (06:30)
[2017-03-28] MEDS: ALBUT/IPRATROP 3MG/0.5MG NEB 3 ML VIAL INH SCH ×4 (07:43→19:34)
[2017-03-28] MEDS: CITALOPRAM 40 MG TAB PO SCH (08:27)
[2017-03-28] MEDS: CEROVITE ADV FORMULA TAB PO SCH (08:28)
[2017-03-28] MEDS: GUAIFENESIN 600 MG TABCR PO SCH ×2 (08:29→21:37)
[2017-03-28] MEDS: PANTOprazole SOD 40 MG TAB PO SCH (08:31)
[2017-03-28] MEDS: FLUTICASONE HFA 110MCG INHALER INH SCH ×2 (08:32→21:41)
[2017-03-28] MEDS: ZINC SULFATE 220 MG CAP PO SCH ×2 (08:32→21:40)
[2017-03-28] MEDS: SALMETEROL XINAFOATE 50MCG 28 BLISTER INH INH SCH ×2 (08:32→21:41)
--- NOTE | 2017-03-28 08:45 | Pharmacy Progress Note ---
Pharmacy Glycemic Short Note 2 Date of Service Mar 28, 2017. OUTPATIENT ANTIDIABETIC REGIMEN: * NovoLog insulin pump * Basal rates vary every 3 hrs from 0.25 - 0.6 units/hr (total basal insulin dose = 9.6 units/day) * Bolus * SF: 65 during the day and 70 at HS * CR: 1: 15 * Goal range 100 -140 mg/dl ASSESSMENT: * 51yo T1DM with a history of "brittle diabetes" and frequent BSG swings. Pt known to pharmacy from previous admissions/glycemic consults. Most recently just last month * Recent A1c is elevated at 10.2% * Pt remains on high dose IV solumedrol and insulin drip + Lantus * Pulmonology adjusted steroids this morning from Solumedrol 40 mg IV every 6 hours --> 40 mg IV every 12 hours * BSGs have been dipping below goal range for the last few nights * Continue to reduce basal insulin dose that we are giving in addition to the insulin drip to avoid further hypoglycemia * Pt will not be transitioned off of insulin drip until IV steroids are changed to PO * At that time a plan with pump + NPH will be initiated PLAN FOR INPATIENT GLYCEMIC CONTROL: * Hold outpatient SQ insulin pump * Will resume just prior to d/c as patient does not know how to manage pump * Continue IV insulin drip * Goal range widened to 110-200 mg/dL * Basal insulin: * Continue basal insulin with IV insulin infusion to facilitate transition off * Lantus 20 units given 03/26/17, 15 units 03/27/17 and 10 units to be given this AM * Bolus insulin: * Nutritional / Prandial insulin per carb ratio of 1 unit per 7 grams CHO consumed Looking ahead to discharge: * Since Patient does not know how to manipulate her pump, her caregiver, Alicia , has requested that we formulate a fixed dose of NPH to be given once daily with prednisone dosing if patient is d/c on prednisone taper. She said that this worked well after Feb 2017 admission. Will determine NPH insulin dosing based on dosing of prednisone.
[2017-03-28] MEDS: INSULIN ASPART 100 UNITS/ML 3 ML PEN SC SCH ×4 (08:46→21:39)
[2017-03-28] MEDS: INSULIN GLARGINE SOLOSTAR 100 UNITS/ML 3 ML PEN SC SCH (08:47)
[2017-03-28] MEDS ORDERED: METHYLPREDNISOLONE IV SCH (09:00)
[2017-03-28] MEDS: SODIUM CHLORIDE 0.9% IRRIG 1,000 ML PLCT IR SCH (09:51)
[2017-03-28] MEDS: LEVOFLOXACIN 750 MG TAB PO SCH (11:43)
--- NOTE | 2017-03-28 11:44 | Pulmonology Progress Note ---
Pulmonary Progress Note Date of Service Mar 28, 2017. Attending Dr. Lynette Evangelista This is a 51-year-old female with history of high functioning Down syndrome and Antonio metal trach that was admitted 03/25/17 for acute respiratory distress. The patient has a history of bronchiectasis and has followed with Dr. Salas for many years. She was last seen by Ciara Del Cid and there was suggestion that she may need bronchoscopy for secretion clearing. Patient was seen on the day of admission and has been followed since admission. Pulmonary toileting has included bronchodilators, Mucomyst, and percussion bed. By day two of the patient's admission she was clearing secretions that were yellow and thick. She had no hemoptysis and has shown constant improvement since admission. Today the patient is seen at bedside and she is breathing well with her tracheostomy tube plugged. Oxygenation is adequate. Patient states that she continues to expectorate sputum but it is much less. Patient has no shortness of breath. She has been up and about her room with no dyspnea with exertion. She is continued on antibiotics, steroids, bronchodilators, and percussion bed. The patient denies fever or chills. She is sleeping well at night. She is eating well without aspiration or dysphagia. She has no acute complaints. Objective GENERAL : No acute distress. Pleasant and joking EYES: No icterus, gaze conjugate NOSE: No evidence of epistaxis MOUTH: No lesions or candidiasis. NECK: Supple. No stridor LUNGS: On exam this morning patient is completely clear on the right lung. She has some persistent crackles and few rhonchi on the left lung. She is able to cough forcefully and has no sputum production in the course of my examination. I did take the plug at her Antonio trach and as soon as I left the room she replaced it. She is adamant that she wants a plug-in so that she can talk HEART: Regular, rate controlled. No evidence of ectopy ABDOMEN: Soft, NT, ND, BS Present EXTREMITIES: No LE edema, pedal pulses intact NEURO: A&O Assessment & Plan Assessment: Bronchiectasis Chronic tracheostomy with Antonio metal trach Hypoxia Down syndrome DMII Plan: ACUTE ON CHRONIC RESPIRATORY FAILURE * Day #4 of levofloxacin. Continue for seven days * Zosyn, vancomycin de-escalated after day two * Begin to taper steroids. Prednisone should be tapered for two weeks after discharge. Steroid dosing will be adjusted by Dr. Salas on follow-up * Continue aggressive pulmonary toilet with vibration bed and manual percussion every shift and as tolerated * Continue trach collar for supplemental O2 - currently at 40% - it should be noted the patient continuously plugs trach so that she can talk * Continue fexofenadine and fluticasone * Continue guaifenesin * Out of bed to chair as tolerated * Ambulate as tolerated * No indication for bronchoscopy as patient is mobilizing secretions and oxygenating well HISTORY OF BRONCHIECTASIS * Bronchoscopy was suggested at last outpatient appointment with pulmonology * At this point patient is moving secretions well with aggressive pulmonary toilet * Will avoid bronchoscopy at this time as long as patient continues to improve * Discussed with patient's mother as patient has Down syndrome and she will follow-up with Dr. Salas as an outpatient * An appointment has been made with Dr. Salas for 04/10/17 at 9:00 am and will be listed in the discharge summary DIABETES MELLITUS * Continue to have trouble managing sugars * Continue Lantus * Continue NovoLog sliding scale * [id number] glucose continues to be elevated * Hemoglobin A1c 02/26/17 was 10.6 * Glycemic consult placed - pharmacy is managing * Patient does have an insulin pump. This is managed by her snf RN * Due to steroid dosing on discharge, patient will need sliding scale insulin in addition to the insulin pump. Discussed with pharmacy. They're aware HYPOTHYROIDISM * Continue levothyroxine DVT PROPHYLAXIS * Continue enoxaparin Thank you for including us in the care of this patient. Please refer to Dr. Ojeda's addendum for further recommendations. We will sign off at this time. Please feel free to reconsult as needed Physician Supervision Note: I was present with Saroj Charles PA-C during the history and exam. I discussed the case with the resident and agree with the findings and plan as documented in the note. Any exceptions or clarifications are listed here: 51 year old female with chronic tracheostomy, Down's syndrome, presents with acute hypoxic respiratory failure secondary to tracheobronchitis. Much improved today, on room air Plan: Agree with Abx, on Zosyn, Levaquin and Vancomycin Pulmonary toilet, frequent suction, chest PT Steroid taper Bronchodilators OOB to chair For the time being, no need for bronchoscopy Follow up with Dr Salas as outpatient, will sign off for now Documented By: Kirk Ojeda MD Data Medications: Current Inpatient Medications Medications (Trade) Dose Ordered Sig/Rene Route Start Time Stop Time Status Last Admin Dose Admin Enoxaparin Sodium (Lovenox Inj) 40 mg Q24H SC 03/25/17 21:00 04/24/17 14:14 03/27/17 21:11 40 MG Acetaminophen (Tylenol Tab) 650 mg Q4H PRN PO 03/25/17 14:15 04/24/17 14:14 Al Hydrox/Mg Hydrox/Simethicone (Maalox Max Susp) 15 ml Q4H PRN PO 03/25/17 14:15 04/24/17 14:14 Magnesium Hydroxide (Milk Of Magnesia Susp) 30 ml Q12H PRN PO 03/25/17 14:15 04/24/17 14:14 Ondansetron HCl (Zofran Inj) 4 mg Q6H PRN IV 03/25/17 14:15 04/24/17 14:14 Polyethylene (Miralax Powder Packet) 17 gm DAILY PRN PO 03/25/17 14:15 04/24/17 14:14 Albuterol (Ventolin Hfa Inhaler) 2 puffs QID PRN INH 03/25/17 14:15 04/24/17 14:14 Atorvastatin Calcium (Lipitor Tab) 10 mg QPM PO 03/25/17 21:00 04/24/17 20:59 03/27/17 21:10 10 MG Citalopram Hydrobromide (celeXA TAB) 40 mg DAILY PO 03/26/17 09:00 04/25/17 08:59 03/28/17 08:27 40 MG Fexofenadine HCl (Danielle Tab) 180 mg HS PO 03/25/17 21:00 04/24/17 20:59 03/27/17 21:09 180 MG Fluticasone Propionate (Flovent Hfa 110MCG Inhaler) 2 puffs AMHS INH 03/25/17 21:00 04/24/17 20:59 03/28/17 08:32 2 PUFFS Guaifenesin (Mucinex Contr Rel Tab) 600 mg Q12 PO 03/25/17 21:00 04/24/17 20:59 03/28/17 08:29 600 MG Levothyroxine Sodium (Synthroid Tab) 150 mcg DAILYBB PO 03/26/17 06:00 04/25/17 06:59 03/28/17 06:30 150 MCG Montelukast Sodium (Singulair Tab) 10 mg HS PO 03/25/17 21:00 04/24/17 20:59 03/27/17 21:10 10 MG Multivitamins/ Minerals (Multivitamin W/ Minerals Tab) 1 tab DAILY PO 03/26/17 09:00 04/25/17 08:59 03/28/17 08:28 1 TAB Salmeterol Xinafoate (Serevent Diskus Inh) 1 puffs BID INH 03/25/17 21:00 04/24/17 20:59 03/28/17 08:32 1 PUFFS Sodium Chloride (Sodium Chloride 0.9% Irrig) 10 ml DAILY IR 03/26/17 09:00 04/25/17 08:59 03/28/17 09:51 10 ML Zinc Sulfate (Zinc Sulfate Cap) 220 mg AMHS PO 03/25/17 21:00 04/24/17 20:59 03/28/17 08:32 220 MG Pantoprazole Sodium (Protonix Tab) 40 mg QAM PO 03/26/17 09:00 04/25/17 08:59 03/28/17 08:31 40 MG Levofloxacin (Levaquin Tab) 750 mg DAILY@11 PO 03/26/17 11:00 04/02/17 10:59 03/27/17 12:49 750 MG Albuterol/ Ipratropium (Duoneb) 3 ml QIDR INH 03/25/17 16:00 04/24/17 15:59 03/28/17 11:27 3 ML Miscellaneous Information (Consult Glycemic Management Pharmacy) 1 ea UD PRN N/A 03/25/17 14:56 04/24/17 14:55 Glucose (Glucose 40% Gel) 15-30 GRAMS 15 GRAMS... UD PRN PO 03/25/17 15:00 04/24/17 14:59 Glucose (Glucose Chew Tab) 4-8 Tablets 4 Tabl... UD PRN PO 03/25/17 15:00 04/24/17 14:59 Dextrose (Dextrose 50% 50ML Syringe) 25-50ML OF 50% DW IV FOR... UD PRN IV 03/25/17 15:00 04/24/17 14:59 03/28/17 00:51 25 ML Glucagon (Glucagon Inj) 1 mg UD PRN SQ 03/25/17 15:00 04/24/17 14:59 Heparin Sodium (Porcine) (Heparin 100 Unit/ml 5ml Flush) 5 ml PRN PRN IV 03/26/17 01:30 04/25/17 01:29 Insulin Human Regular 250 units/ Sodium Chloride 252.5 ml @ 0 mls/hr Q24H IV 03/26/17 13:30 04/25/17 13:29 03/28/17 11:13 1.4 MLS/HR Insulin Aspart (novoLOG ASPART) SLIDING SCALE PCHS SC 03/26/17 18:00 04/25/17 17:59 03/28/17 08:46 15 UNITS Methylprednisolone Sodium Succinate 40 mg/Syringe 1 ml @ 1.5 mls/min Q12H IV 03/28/17 09:00 04/24/17 19:59 03/28/17 08:31 1.5 MLS/MIN Insulin Glargine (Lantus Solostar Pen) 10 units Q24H SC 03/28/17 09:00 04/27/17 08:59 03/28/17 08:47 10 UNITS Vital Signs: Date Time Temp Pulse Resp B/P (MAP) Pulse Ox O2 Delivery O2 Flow Rate FiO2 03/28/17 11:29 72 19 92 Trach Collar 30 03/28/17 07:47 46 18 96 Trach Collar 30 03/28/17 07:35 Trach Collar 10.0 03/28/17 07:12 36.6 55 20 107/66 (80) 92 Trach Collar 10.0 03/28/17 00:00 High Flow Oxygen 10.0 30 Trach Collar 03/27/17 23:26 36.6 50 18 123/61 (81) 94 Room Air 03/27/17 20:00 High Flow Oxygen 10.0 30 Trach Collar 03/27/17 20:00 58 18 94 Trach Collar 30 03/27/17 16:00 91 Trach Collar 9.0 03/27/17 15:33 37.0 58 18 115/68 (84) 91 Trach Collar 9.0 03/27/17 14:24 71 18 91 Trach Collar 30 Laboratory Results: Last 24 Hours Test 03/27/17 12:30 03/27/17 13:31 03/27/17 14:32 03/27/17 14:46 Bedside Glucose 123 mg/dl 153 mg/dl 96 mg/dl 230 mg/dl Test 03/27/17 14:48 03/27/17 14:50 03/27/17 15:02 03/27/17 15:19 Bedside Glucose 98 mg/dl 94 mg/dl 107 mg/dl 89 mg/dl Test 03/27/17 15:46 03/27/17 16:46 03/27/17 18:02 03/27/17 18:46 Bedside Glucose 146 mg/dl 146 mg/dl 151 mg/dl 130 mg/dl Test 03/27/17 20:48 03/27/17 22:46 03/28/17 00:42 03/28/17 01:06 Bedside Glucose 172 mg/dl 128 mg/dl 66 mg/dl 119 mg/dl Test 03/28/17 02:01 03/28/17 02:29 03/28/17 02:46 03/28/17 03:09 Bedside Glucose 89 mg/dl 79 mg/dl 99 mg/dl 120 mg/dl Test 03/28/17 04:11 03/28/17 05:13 03/28/17 05:18 03/28/17 06:09 Bedside Glucose 139 mg/dl 132 mg/dl 102 mg/dl White Blood Count 11.08 K/uL Red Blood Count 3.18 M/uL Hemoglobin 10.9 g/dL Hematocrit 32.9 % Mean Corpuscular Volume 103.5 fL Mean Corpuscular Hemoglobin 34.3 pg Mean Corpuscular Hemoglobin Concent 33.1 g/dl RDW Standard Deviation 54.7 fL RDW Coefficient of Variation 14.4 % Platelet Count 192 K/uL Mean Platelet Volume 9.7 fL Sodium Level 141 mmol/L Potassium Level 3.8 mmol/L Chloride Level 108 mmol/L Carbon Dioxide Level 29 mmol/L Anion Gap 4.0 mmol/L Blood Urea Nitrogen 21 mg/dl Creatinine 0.84 mg/dl Est Creatinine Clear Calc Drug Dose 60.1 ml/min Estimated GFR () 92.6 Estimated GFR (Non- 79.9 BUN/Creatinine Ratio 25.2 Random Glucose 127 mg/dl Calcium Level 8.1 mg/dl Test 03/28/17 06:27 03/28/17 06:49 03/28/17 07:07 03/28/17 08:10 Bedside Glucose 98 mg/dl 107 mg/dl 128 mg/dl 150 mg/dl Test 03/28/17 09:07 03/28/17 10:02 03/28/17 11:10 Bedside Glucose 262 mg/dl 360 mg/dl 376 mg/dl
--- NOTE | 2017-03-28 16:54 | Hospitalist Progress Note ---
Hospitalist Progress Note Date of Service Mar 28, 2017. (Gloria Ibrahim PA-C) Subjective Pt evaluation today including: conversation w/ patient, physical exam, chart review, lab review, review of studies, conversation w/ computing consultant (Pulm - Saroj Cahrles), review of inpatient medication list Patient seen and evaluated. No acute events overnight. Discussed and evaluated patient with Saroj Charles Patient had O2 near trach but had plug inserted. This was removed during examination but upon entering her room a few minutes later she already put this back in. Mentation is appropriate and oxygenation is adequate. Still continues to cough and reporting less sputum then previously. Continues with pulmonary toilet. Glucose is labile and will convert to oral daily steroids and hopefully will stabilize. Plan for [address] Salas F/U prior to discontinuation of steroids. Constitutional: No weakness, No fatigue Respiratory: + cough, + sputum, No shortness of breath Abdomen: No pain, No nausea, No vomiting (Gloria Ibrahim, [place]) Medications Current Inpatient Medications Medications (Trade) Dose Ordered Sig/Rene Route Start Time Stop Time Status Last Admin Dose Admin Enoxaparin Sodium (Lovenox Inj) 40 mg Q24H SC 03/25/17 21:00 04/24/17 14:14 03/27/17 21:11 40 MG Acetaminophen (Tylenol Tab) 650 mg Q4H PRN PO 03/25/17 14:15 04/24/17 14:14 Al Hydrox/Mg Hydrox/Simethicone (Maalox Max Susp) 15 ml Q4H PRN PO 03/25/17 14:15 04/24/17 14:14 Magnesium Hydroxide (Milk Of Magnesia Susp) 30 ml Q12H PRN PO 03/25/17 14:15 04/24/17 14:14 Ondansetron HCl (Zofran Inj) 4 mg Q6H PRN IV 03/25/17 14:15 04/24/17 14:14 Polyethylene (Miralax Powder Packet) 17 gm DAILY PRN PO 03/25/17 14:15 04/24/17 14:14 Albuterol (Ventolin Hfa Inhaler) 2 puffs QID PRN INH 03/25/17 14:15 04/24/17 14:14 Atorvastatin Calcium (Lipitor Tab) 10 mg QPM PO 03/25/17 21:00 04/24/17 20:59 03/27/17 21:10 10 MG Citalopram Hydrobromide (celeXA TAB) 40 mg DAILY PO 03/26/17 09:00 04/25/17 08:59 03/28/17 08:27 40 MG Fexofenadine HCl (Danielle Tab) 180 mg HS PO 03/25/17 21:00 04/24/17 20:59 03/27/17 21:09 180 MG Fluticasone Propionate (Flovent Hfa 110MCG Inhaler) 2 puffs AMHS INH 03/25/17 21:00 04/24/17 20:59 03/28/17 08:32 2 PUFFS Guaifenesin (Mucinex Contr Rel Tab) 600 mg Q12 PO 03/25/17 21:00 04/24/17 20:59 03/28/17 08:29 600 MG Levothyroxine Sodium (Synthroid Tab) 150 mcg DAILYBB PO 03/26/17 06:00 04/25/17 06:59 03/28/17 06:30 150 MCG Montelukast Sodium (Singulair Tab) 10 mg HS PO 03/25/17 21:00 04/24/17 20:59 03/27/17 21:10 10 MG Multivitamins/ Minerals (Multivitamin W/ Minerals Tab) 1 tab DAILY PO 03/26/17 09:00 04/25/17 08:59 03/28/17 08:28 1 TAB Salmeterol Xinafoate (Serevent Diskus Inh) 1 puffs BID INH 03/25/17 21:00 04/24/17 20:59 03/28/17 08:32 1 PUFFS Sodium Chloride (Sodium Chloride 0.9% Irrig) 10 ml DAILY IR 03/26/17 09:00 04/25/17 08:59 03/28/17 09:51 10 ML Zinc Sulfate (Zinc Sulfate Cap) 220 mg AMHS PO 03/25/17 21:00 04/24/17 20:59 03/28/17 08:32 220 MG Pantoprazole Sodium (Protonix Tab) 40 mg QAM PO 03/26/17 09:00 04/25/17 08:59 03/28/17 08:31 40 MG Levofloxacin (Levaquin Tab) 750 mg DAILY@11 PO 03/26/17 11:00 04/02/17 10:59 03/28/17 11:43 750 MG Albuterol/ Ipratropium (Duoneb) 3 ml QIDR INH 03/25/17 16:00 04/24/17 15:59 03/28/17 15:39 3 ML Miscellaneous Information (Consult Glycemic Management Pharmacy) 1 ea UD PRN N/A 03/25/17 14:56 04/24/17 14:55 Glucose (Glucose 40% Gel) 15-30 GRAMS 15 GRAMS... UD PRN PO 03/25/17 15:00 04/24/17 14:59 Glucose (Glucose Chew Tab) 4-8 Tablets 4 Tabl... UD PRN PO 03/25/17 15:00 04/24/17 14:59 Dextrose (Dextrose 50% 50ML Syringe) 25-50ML OF 50% DW IV FOR... UD PRN IV 03/25/17 15:00 04/24/17 14:59 03/28/17 00:51 25 ML Glucagon (Glucagon Inj) 1 mg UD PRN SQ 03/25/17 15:00 04/24/17 14:59 Heparin Sodium (Porcine) (Heparin 100 Unit/ml 5ml Flush) 5 ml PRN PRN IV 03/26/17 01:30 04/25/17 01:29 Insulin Human Regular 250 units/ Sodium Chloride 252.5 ml @ 0 mls/hr Q24H IV 03/26/17 13:30 04/25/17 13:29 03/28/17 16:11 5.6 MLS/HR Insulin Aspart (novoLOG ASPART) SLIDING SCALE HS SC 03/26/17 18:00 04/25/17 17:59 03/28/17 13:36 10 UNITS Insulin Glargine (Lantus Solostar Pen) 10 units Q24H SC 03/28/17 09:00 04/27/17 08:59 03/28/17 08:47 10 UNITS Prednisone (PredniSONE TAB) 40 mg DAILY PO 03/29/17 09:00 04/28/17 08:59 (Gloria Ibrahim, [place]) Objective Vital Signs Date Time Temp Pulse Resp B/P (MAP) Pulse Ox O2 Delivery O2 Flow Rate FiO2 03/28/17 15:42 68 18 95 Trach Collar 30 03/28/17 15:37 36.9 75 18 139/83 (101) 94 Room Air 03/28/17 11:29 72 19 92 Trach Collar 30 03/28/17 07:47 46 18 96 Trach Collar 30 03/28/17 07:35 Trach Collar 10.0 03/28/17 07:12 36.6 55 20 107/66 (80) 92 Trach Collar 10.0 03/28/17 00:00 High Flow Oxygen 10.0 30 Trach Collar 03/27/17 23:26 36.6 50 18 123/61 (81) 94 Room Air 03/27/17 20:00 High Flow Oxygen 10.0 30 Trach Collar 03/27/17 20:00 58 18 94 Trach Collar 30 (Gloria Ibrahim, PA-C) Physical Exam General Appearance: WD/WN, no apparent distress Eyes: sclerae normal ENT: hearing grossly normal Neck: supple, no JVD, trachea midline, + pertinent finding (trach midline with plug placed) Respiratory/Chest: no respiratory distress, no accessory muscle use, + rhonchi (L mid-lung) Cardiovascular: regular rate, rhythm Abdomen: normal bowel sounds, non tender, soft Neurologic/Psychiatric: alert Skin: normal color, warm/dry (Gloria Ibrahim, PA-C) Laboratory Results Last 24 Hours Test 03/27/17 18:02 03/27/17 18:46 03/27/17 20:48 03/27/17 22:46 Bedside Glucose 151 mg/dl 130 mg/dl 172 mg/dl 128 mg/dl Test 03/28/17 00:42 03/28/17 01:06 03/28/17 02:01 03/28/17 02:29 Bedside Glucose 66 mg/dl 119 mg/dl 89 mg/dl 79 mg/dl Test 03/28/17 02:46 03/28/17 03:09 03/28/17 04:11 03/28/17 05:13 Bedside Glucose 99 mg/dl 120 mg/dl 139 mg/dl 132 mg/dl Test 03/28/17 05:18 03/28/17 06:09 03/28/17 06:27 03/28/17 06:49 White Blood Count 11.08 K/uL Red Blood Count 3.18 M/uL Hemoglobin 10.9 g/dL Hematocrit 32.9 % Mean Corpuscular Volume 103.5 fL Mean Corpuscular Hemoglobin 34.3 pg Mean Corpuscular Hemoglobin Concent 33.1 g/dl RDW Standard Deviation 54.7 fL RDW Coefficient of Variation 14.4 % Platelet Count 192 K/uL Mean Platelet Volume 9.7 fL Sodium Level 141 mmol/L Potassium Level 3.8 mmol/L Chloride Level 108 mmol/L Carbon Dioxide Level 29 mmol/L Anion Gap 4.0 mmol/L Blood Urea Nitrogen 21 mg/dl Creatinine 0.84 mg/dl Est Creatinine Clear Calc Drug Dose 60.1 ml/min Estimated GFR () 92.6 Estimated GFR (Non- 79.9 BUN/Creatinine Ratio 25.2 Random Glucose 127 mg/dl Calcium Level 8.1 mg/dl Bedside Glucose 102 mg/dl 98 mg/dl 107 mg/dl Test 03/28/17 07:07 03/28/17 08:10 03/28/17 09:07 03/28/17 10:02 Bedside Glucose 128 mg/dl 150 mg/dl 262 mg/dl 360 mg/dl Test 03/28/17 11:10 03/28/17 12:06 03/28/17 12:08 03/28/17 13:07 Bedside Glucose 376 mg/dl 420 mg/dl 389 mg/dl 492 mg/dl Test 03/28/17 13:10 03/28/17 14:10 03/28/17 14:12 03/28/17 15:06 Bedside Glucose 425 mg/dl 487 mg/dl 471 mg/dl 442 mg/dl Test 03/28/17 15:08 03/28/17 16:06 Bedside Glucose 402 mg/dl 338 mg/dl (Gloria Ibrahim, PACiciC) Assessment and Plan 51 y/o female with a history of Down syndrome, asthma, tracheal stenosis s/p tracheostomy (1998), recurrent respiratory infections on prophylactic abx, DM I , depression, hypothyroidism, CAMILLA, and GERD who presented to the ED on 03/25 with lethargy, cough, shortness of breath and hypoxia. Pt received DuoNeb en route to ED from EMS. Pt arrived to ED afebrile, VSS. Originally up to 10L through trach collar, now down to 8L. No leukocytosis, labs grossly unremarkable. Pt received Levaquin and Zosyn in ED. Acute Hypoxic Respiratory Failure 2/2 B/L Pneumonia/Bronchiectasis: - Levaquin 750 mg daily until 03/31 to complete 7 day course - Methylprednisolone 40 mg po daily with plan for taper over 2 weeks - Duonebs RENE and Ventolin PRN; Singulair 10 mg daily; Salmeterol 1 puff BID - Continue aggressive pulmonary toilet and trach suction/care - Pulmonary followed/signed off - discussed with Saroj Charles - plan for 2 week steroid taper and F/U with Dr. Salas on 04/10 Metabolic Encephalopathy 2/2 Hypoxia/Infection: RESOLVED T1DM with Hyperglycemia: LABILE - Glucose with extreme highs and lows and hopefully will better stabilize as steroids are tapered - Glycemic management - appreciate assistance with insulin infusion and wean Depression: STABLE - Citalopram 40 mg daily Hypothyroidism: - Synthroid 150 mcg daily DVT Prophylaxis: Lovenox 40 mg SC daily Code Status: FULL RESUSCITATION Disposition: - Resident of a fpc - pending better glycemic control with implementation of insulin pump and SSI - possible D/C next 1-2 days Continued [facility] stay due to: multiple IV medications needed Discharge planning: home (Gloria Ibrahim, PA-C) Attending Attestation: Pt seen/examined, chart reviewed, care plan d/w HILARIO Ibrahim. I agree w/ the tanner components of her documentation. Pt's mother at bedside; she confirms that Valorie is doing much better Her mother attests to "how brittle her diabetes is" no issues per staff VSS no fever gen - NAD; dysmorphic Down's features neck - trach in place heart - RRR lungs - breath sounds much improved today with minimal wheeze/rhonchi, good airation abd - soft, NT ext - no edema A/P: 1. acute hypoxic resp failure 2nd to bronchiectasis exacerbation & pneumonia - improving/nearly resolved. Cont levaquin; wean steroids to PO in am. Cont supportive care, pulm toilet, etc. 2. chronic trach status 3. down's syndrome 4. T1DM, uncontrolled due to steroids - pharmacy managing and overall control is improving. With weaning of steroids her control should improve. mother updated progressing back to fpc next 48 hrs ? Marcell Sage MD (Marcell Sage MD)
[2017-03-28] MEDS: FEXOFENADINE HCL 180 MG TAB PO SCH (21:36)
[2017-03-28] MEDS: ATORVASTATIN 10 MG TAB PO SCH (21:36)
[2017-03-28] MEDS: MONTELUKAST SOD 10 MG TAB PO SCH (21:37)
[2017-03-28] MEDS: ENOXAPARIN 40 MG/0.4 ML SYR SC SCH (21:41)
[2017-03-29] VITALS (10 sets, daily range): BP systolic 105–121; BP diastolic 67–84; PULSE 66–92; TEMP 36.7–36.8; O2SAT 91–96
[2017-03-29] MEDS: INSULIN REGULAR 250 UNITS in SODIUM CHLORIDE 0.9% 250ML 250 ML IV SCH ×2 (01:14→03:43)
[2017-03-29] MEDS: LEVOTHYROXINE 150 MCG TAB PO SCH (05:47)
[2017-03-29 06:40] LABS: CALCIUM 7.9 mg/dl (8.5-10.1); CREATININE 0.7 mg/dl (0.60-1.20); PHOSPHORUS 2.1 mg/dl (2.5-4.9); POTASSIUM 3.4 mmol/L (3.5-5.1)
[2017-03-29] MEDS: ALBUT/IPRATROP 3MG/0.5MG NEB 3 ML VIAL INH SCH ×4 (07:19→19:05)
[2017-03-29] MEDS: DEXTROSE 50% 50 ML SYR IV PRN (07:30)
[2017-03-29] MEDS: CITALOPRAM 40 MG TAB PO SCH (07:57)
[2017-03-29] MEDS: SALMETEROL XINAFOATE 50MCG 28 BLISTER INH INH SCH ×2 (07:57→20:44)
[2017-03-29] MEDS: FLUTICASONE HFA 110MCG INHALER INH SCH ×2 (07:57→20:44)
[2017-03-29] MEDS: SODIUM CHLORIDE 0.9% IRRIG 1,000 ML PLCT IR SCH (07:57)
[2017-03-29] MEDS: GUAIFENESIN 600 MG TABCR PO SCH ×2 (07:58→20:45)
[2017-03-29] MEDS: CEROVITE ADV FORMULA TAB PO SCH (07:58)
[2017-03-29] MEDS: ZINC SULFATE 220 MG CAP PO SCH ×2 (07:58→20:46)
[2017-03-29] MEDS: PANTOprazole SOD 40 MG TAB PO SCH (07:58)
[2017-03-29] MEDS: INSULIN GLARGINE SOLOSTAR 100 UNITS/ML 3 ML PEN SC SCH (07:59)
[2017-03-29] MEDS: INSULIN ASPART 100 UNITS/ML 3 ML PEN SC SCH ×4 (08:01→20:56)
[2017-03-29] MEDS: INSULIN HUMAN NPH SC SCH (08:53)
--- NOTE | 2017-03-29 10:20 | Pharmacy Progress Note ---
Pharmacy Glycemic Short Note 2 Date of Service Mar 29, 2017. OUTPATIENT ANTIDIABETIC REGIMEN: * NovoLog insulin pump * Basal rates vary every 3 hrs from 0.25 - 0.6 units/hr (total basal insulin dose = 9.6 units/day) * Bolus * SF: 65 during the day and 70 at HS * CR: 1: 15 * Goal range 100 -140 mg/dl ASSESSMENT: * 51yo T1DM with a history of "brittle diabetes" and frequent BSG swings. Pt known to pharmacy from previous admissions/glycemic consults. Most recently just last month * Recent A1c is elevated at 10.2% * Pt initiated on IV abx + high dose IV steroids for acute on chronic respiratory failure. * Outpatient basal insulin dose = 9.6 units/day --> started at 15 units/day and titrated up to 20 units. Pt experienced LOW BSG therefore Lantus was cut back to 10 units/day which is similar to outpatient dosing. * Started aggressive CF/CR for steroid induced hyperglycemia. Outpatient CF = 65-70, inpatient CF = IV insulin infusion. Outpatient CR = 15, inpatient CR = 7. * Steroids have been tapered today to Prednisone 40mg PO daily. Will start the transition process off of the IV insulin infusion in preparation for discharge and loosen SQ insulin parameters with step down in steroid dosing. PLAN FOR INPATIENT GLYCEMIC CONTROL: * Hold outpatient SQ insulin pump * Will resume just prior to d/c as patient does not know how to manage pump * Pt received a dose of lantus 10 units this morning - pump will not need to be resumed until tomorrow morning or tonight bedtime at the minimum * Wean off of IV insulin infusion protocol * Will d/c 2 hrs after administering NPH or when held per calculator - whichever happens sooner * Basal insulin: * Continue basal insulin Lantus 10 units SQ daily until SQ insulin pump resumed * Bolus insulin: * NPH 25 units (0.4units/kg) to cover hyperglycemia secondary to once daily prednisone * Loosen/reduce Correctional insulin per CF = 45mg/dl/unit * Loosen/reduce Nutritional / Prandial insulin per carb ratio of 1 unit per 15 grams CHO consumed Looking ahead to discharge: This plan was discussed with caregivers at the [facility] (Isak Browning RN) and provider (HILARIO Boothe) * If discharged 03/29/17: * Valorie is to only resume insulin pump tonight if BSG > 200 mg/dl at bedtime * If BSG is 200 mg/dl or less at bedtime do not put pump on (patient received Lantus 10 units this morning) * If discharged 03/30/17: * Valorie's caregivers will be at [facility] by 0900 and will bring all pump supplies. [facility] will help facilitate resuming insulin pump at this time. NPH will be given at [facility] with prednisone dose in AM. * NPH insulin dosing based on weight (adm weight of 62kg) and dosing of prednisone. This NPH dosing will be IN ADDITION to Valorie's insulin pump. No changes need made to pump. * 03/29/17 through 03/31/17: Prednisone 40mg/day ==> Administer 25 units of NPH {do not give if prednisone not given} * 04/01/17 through 04/03/17: Prednisone 30mg/day ==> Administer 18 units of NPH {do not give if prednisone not given} * 04/04/17 through 04/06/17: Prednisone 20mg/day ==> Administer 12 units of NPH {do not give if prednisone not given} * 04/07/17 through 04/09/17: Prednisone 10mg/day ==> Administer 6 units of NPH {do not give if prednisone not given}
[2017-03-29] MEDS: LEVOFLOXACIN 750 MG TAB PO SCH (10:59)
[2017-03-29] MEDS ORDERED: DC IV INSULIN INFUSION ONE (11:00)
[2017-03-29] MEDS ORDERED: NVLNI SC ×2 (14:59→16:45)
[2017-03-29] MEDS ORDERED: LVQ750 PO ×2 (14:59→16:45)
[2017-03-29] MEDS ORDERED: PRED10TA PO ×2 (14:59→16:45)
--- NOTE | 2017-03-29 15:42 | Hospitalist Progress Note ---
Hospitalist Progress Note Date of Service Mar 29, 2017. (Gloria Ibrahim PA-C) Subjective Pt evaluation today including: conversation w/ patient, conversation w/ family , physical exam, chart review, lab review, review of studies, conversation w/ applications development consultant (Pharmacy), review of inpatient medication list Patient seen and evaluated. No acute events overnight. Continues to expel secretions. Appears in no distress. Actually had her trach plug out when walking into the room. Plan to bring in insulin pump in AM and get her back on that since she had basal insulin today. Plan for D/C back to her intermediate with pump and NPH sliding scale based on Prednisone. Constitutional: No fever, No chills Respiratory: + cough, + sputum, No shortness of breath Cardiovascular: No chest pain Abdomen: No pain, No nausea, No vomiting (Gloria Ibrahim, [place]) Medications Current Inpatient Medications Medications (Trade) Dose Ordered Sig/Rene Route Start Time Stop Time Status Last Admin Dose Admin Enoxaparin Sodium (Lovenox Inj) 40 mg Q24H SC 03/25/17 21:00 04/24/17 14:14 03/28/17 21:41 40 MG Acetaminophen (Tylenol Tab) 650 mg Q4H PRN PO 03/25/17 14:15 04/24/17 14:14 03/29/17 09:48 650 MG Al Hydrox/Mg Hydrox/Simethicone (Maalox Max Susp) 15 ml Q4H PRN PO 03/25/17 14:15 04/24/17 14:14 Magnesium Hydroxide (Milk Of Magnesia Susp) 30 ml Q12H PRN PO 03/25/17 14:15 04/24/17 14:14 Ondansetron HCl (Zofran Inj) 4 mg Q6H PRN IV 03/25/17 14:15 04/24/17 14:14 Polyethylene (Miralax Powder Packet) 17 gm DAILY PRN PO 03/25/17 14:15 04/24/17 14:14 Albuterol (Ventolin Hfa Inhaler) 2 puffs QID PRN INH 03/25/17 14:15 04/24/17 14:14 Atorvastatin Calcium (Lipitor Tab) 10 mg QPM PO 03/25/17 21:00 04/24/17 20:59 03/28/17 21:36 10 MG Citalopram Hydrobromide (celeXA TAB) 40 mg DAILY PO 03/26/17 09:00 04/25/17 08:59 03/29/17 07:57 40 MG Fexofenadine HCl (Danielle Tab) 180 mg HS PO 03/25/17 21:00 04/24/17 20:59 03/28/17 21:36 180 MG Fluticasone Propionate (Flovent Hfa 110MCG Inhaler) 2 puffs AMHS INH 03/25/17 21:00 04/24/17 20:59 03/29/17 07:57 2 PUFFS Guaifenesin (Mucinex Contr Rel Tab) 600 mg Q12 PO 03/25/17 21:00 04/24/17 20:59 03/29/17 07:58 600 MG Levothyroxine Sodium (Synthroid Tab) 150 mcg DAILYBB PO 03/26/17 06:00 04/25/17 06:59 03/29/17 05:47 150 MCG Montelukast Sodium (Singulair Tab) 10 mg HS PO 03/25/17 21:00 04/24/17 20:59 03/28/17 21:37 10 MG Multivitamins/ Minerals (Multivitamin W/ Minerals Tab) 1 tab DAILY PO 03/26/17 09:00 04/25/17 08:59 03/29/17 07:58 1 TAB Salmeterol Xinafoate (Serevent Diskus Inh) 1 puffs BID INH 03/25/17 21:00 04/24/17 20:59 03/29/17 07:57 1 PUFFS Sodium Chloride (Sodium Chloride 0.9% Irrig) 10 ml DAILY IR 03/26/17 09:00 04/25/17 08:59 03/29/17 07:57 10 ML Zinc Sulfate (Zinc Sulfate Cap) 220 mg AMHS PO 03/25/17 21:00 04/24/17 20:59 03/29/17 07:58 220 MG Pantoprazole Sodium (Protonix Tab) 40 mg QAM PO 03/26/17 09:00 04/25/17 08:59 03/29/17 07:58 40 MG Levofloxacin (Levaquin Tab) 750 mg DAILY@11 PO 03/26/17 11:00 04/02/17 10:59 03/29/17 10:59 750 MG Albuterol/ Ipratropium (Duoneb) 3 ml QIDR INH 03/25/17 16:00 04/24/17 15:59 03/29/17 14:09 3 ML Miscellaneous Information (Consult Glycemic Management Pharmacy) 1 ea UD PRN N/A 03/25/17 14:56 04/24/17 14:55 Glucose (Glucose 40% Gel) 15-30 GRAMS 15 GRAMS... UD PRN PO 03/25/17 15:00 04/24/17 14:59 Glucose (Glucose Chew Tab) 4-8 Tablets 4 Tabl... UD PRN PO 03/25/17 15:00 04/24/17 14:59 Dextrose (Dextrose 50% 50ML Syringe) 25-50ML OF 50% DW IV FOR... UD PRN IV 03/25/17 15:00 04/24/17 14:59 03/29/17 07:30 25 ML Glucagon (Glucagon Inj) 1 mg UD PRN SQ 03/25/17 15:00 04/24/17 14:59 Heparin Sodium (Porcine) (Heparin 100 Unit/ml 5ml Flush) 5 ml PRN PRN IV 03/26/17 01:30 04/25/17 01:29 03/29/17 10:59 5 ML Prednisone (PredniSONE TAB) 40 mg DAILY PO 03/29/17 09:00 04/28/17 08:59 03/29/17 07:58 40 MG Insulin Human NPH (novoLIN-N NPH) 25 units DAILY SC 03/29/17 09:00 04/28/17 08:59 03/29/17 08:53 25 UNITS Insulin Aspart (novoLOG ASPART) SLIDING SCALE If CARB RA... ACHS SC 03/29/17 11:00 04/28/17 10:59 03/29/17 12:33 5 UNITS (Gloria Ibrahim PA-C) Objective Vital Signs Date Time Temp Pulse Resp B/P (MAP) Pulse Ox O2 Delivery O2 Flow Rate FiO2 03/29/17 15:08 36.7 66 16 105/67 (80) 94 Room Air 03/29/17 14:09 88 18 95 Trach Collar 30 03/29/17 11:39 80 18 96 Trach Collar 30 03/29/17 09:50 Trach Collar 10.0 03/29/17 07:50 36.8 88 16 121/84 (96) 92 11.0 03/29/17 07:19 80 18 96 Trach Collar 30 03/29/17 00:00 91 High Flow Oxygen 10.0 30 Trach Collar 03/28/17 23:40 91 Trach Collar 10.0 30 03/28/17 22:44 37.2 84 18 112/72 (85) 03/28/17 19:36 76 16 95 Trach Collar 30 03/28/17 16:10 95 Trach Collar 10.0 30 03/28/17 15:42 68 18 95 Trach Collar 30 03/28/17 15:37 36.9 75 18 139/83 (101) 94 Room Air (Gloria Ibrahim PA-C) Physical Exam General Appearance: WD/WN, no apparent distress Neck: supple, no JVD, trachea midline, + pertinent finding (trach with plug open, no surround erythema) Respiratory/Chest: no respiratory distress, no accessory muscle use, + rhonchi (L base) Cardiovascular: regular rate, rhythm, no gallop, no murmur Abdomen: normal bowel sounds, non tender, soft Skin: normal color, warm/dry (Gloria Ibrahim PA-C) Laboratory Results Last 24 Hours Test 03/28/17 16:06 03/28/17 17:04 03/28/17 18:08 03/28/17 19:08 Bedside Glucose 338 mg/dl 253 mg/dl 248 mg/dl 231 mg/dl Test 03/28/17 20:10 03/28/17 21:17 03/28/17 22:59 03/28/17 23:54 Bedside Glucose 206 mg/dl 125 mg/dl 76 mg/dl 52 mg/dl Test 03/29/17 00:32 03/29/17 01:06 03/29/17 01:59 03/29/17 03:04 Bedside Glucose 96 mg/dl 162 mg/dl 177 mg/dl 124 mg/dl Test 03/29/17 04:50 03/29/17 05:25 03/29/17 05:44 03/29/17 06:44 Bedside Glucose 119 mg/dl 125 mg/dl 74 mg/dl Sodium Level 141 mmol/L Potassium Level 3.4 mmol/L Chloride Level 107 mmol/L Carbon Dioxide Level 30 mmol/L Anion Gap 4.0 mmol/L Blood Urea Nitrogen 20 mg/dl Creatinine 0.70 mg/dl Est Creatinine Clear Calc Drug Dose 71.8 ml/min Estimated GFR () 115.5 Estimated GFR (Non- 99.6 BUN/Creatinine Ratio 29.1 Random Glucose 87 mg/dl Calcium Level 7.9 mg/dl Phosphorus Level 2.1 mg/dl Magnesium Level 1.9 mg/dl Test 03/29/17 07:14 03/29/17 07:52 03/29/17 08:50 03/29/17 09:51 Bedside Glucose 64 mg/dl 187 mg/dl 266 mg/dl 238 mg/dl Test 03/29/17 11:39 Bedside Glucose 72 mg/dl (Gloria Ibrahim, PACiciC) Assessment and Plan 51 y/o female with a history of Down syndrome, asthma, tracheal stenosis s/p tracheostomy (1998), recurrent respiratory infections on prophylactic abx, DM I , depression, hypothyroidism, CAMILLA, and GERD who presented to the ED on 03/25 with lethargy, cough, shortness of breath and hypoxia. Pt received DuoNeb en route to ED from EMS. Pt arrived to ED afebrile, VSS. Originally up to 10L through trach collar, now down to 8L. No leukocytosis, labs grossly unremarkable. Pt received Levaquin and Zosyn in ED. Acute Hypoxic Respiratory Failure 2/2 B/L Pneumonia/Bronchiectasis: - Levaquin 750 mg daily until 03/31 to complete 7 day course - Methylprednisolone 40 mg po daily with plan for taper over 2 weeks - Duonebs RENE and Ventolin PRN; Singulair 10 mg daily; Salmeterol 1 puff BID - Continue aggressive pulmonary toilet and trach suction/care - Pulmonary followed/signed off - discussed with Saroj Charles - plan for 2 week steroid taper and F/U with Dr. Salas on 04/10 Metabolic Encephalopathy 2/2 Hypoxia/Infection: RESOLVED T1DM with Hyperglycemia: LABILE - Glucose with extreme highs and lows and hopefully will better stabilize as steroids are tapered - Glycemic management - discussed with pharmacy - has been removed from insulin gtt and plan to implement insulin pump on 03/30 Depression: STABLE - Citalopram 40 mg daily Hypothyroidism: - Synthroid 150 mcg daily DVT Prophylaxis: Lovenox 40 mg SC daily Code Status: FULL RESUSCITATION Disposition: - Plan for return to intermediate tomorrow Discharge planning: home (intermediate) (Gloria Ibrahim, PACiciC) Attending Attestation: Pt seen/examined, chart reviewed, care plan d/w HILARIO Ibrahim. I agree w/ the tanner components of her documentation. Lantus SC given this am and insulin drip has been weaned off. No events otherwise. Mother mentions that Valorie has chronic abdominal pain. VSS no fever gen - NAD; dysmorphic Down's features neck - trach in place heart - RRR lungs - mild wheeze b/l, no rales, no increased work of breathing abd - soft, NT, minimally distended ext - no edema A/P: 1. acute hypoxic resp failure 2nd to bronchiectasis exacerbation & pneumonia - resolved. Cont levaquin until 03/31; wean steroids over 2 weeks. Cont supportive care, pulm toilet, etc. 2. chronic trach status 3. down's syndrome 4. T1DM, "brittle", uncontrolled due to steroids - appreciate pharmacy assistance. Drip is off, insulin pump to be brought by intermediate, and will place back on patient in AM. 5. chronic abd pain - gastroparesis? consider GI referral after d/c. back to intermediate tomorrow once insulin pump has been reinstituted Marcell Sage MD (Marcell Sage MD)
--- NOTE | 2017-03-29 16:53 | Discharge Instructions ---
Discharge Instructions Date of Service Mar 29, 2017. Admission Reason for Admission: Hypoxia, Shortness Of Breath Discharge Discharge Diagnosis / Problem: Acute Hypoxic Respiratory Failure 2/2 Pneumonia/ Bronchiectasis Discharge Goals Goal(s): Decrease discomfort, Improve function, Increase independence Activity Recommendations Activity Level: Up Ad Sarah . Additional Information Patient informed of condition: Yes Advance Directives: No DNR: No Level of Care: Other (Correction) Communicable Disease: No Prognosis: Improving Instructions / Follow-Up Instructions / Follow-Up Ms. Early is a 51 y/o female with PMHx of Down Syndrome, Asthma, Tracheal Stenosis S/P Tracheostomy, Recurrent Respiratory Infections and Prophylactic Abx , T1DM, Hypothyroidism, CAMILLA, and GERD who presented to the ED on 03/25 with lethargy, cough, SOB, and hypoxia. Acute Hypoxic Respiratory Failure due to Pneumonia/Bronchiectasis: IMPROVING - Levaquin 750 mg daily until 03/31 to complete 7 day course - Prednisone taper as follows -- Prednisone 40 mg daily on 03/31 -- Prednisone 30 mg daily on 04/01- -- Prednisone 20 mg daily on 04/04- -- Prednisone 10 mg daily on 04/07- - Continue home respiratory medication and inhalers/nebs; use oxygen as previously prescribed - Continue aggressive pulmonary toilet and trach suction/care; vibration vests/ manual percussion... - No indication for bronchoscopy in the hospital due to good movement of secretions - Would hold suppressive ABx (Bactrim) while using Levaquin but can continue this after finishing the Levaquin - Follow-up appointment with Dr. Salas is set for 04/10 T1DM with Hyperglycemia: - Will continue her basal insulin through her pump with the original setting previously set and will utilize NPH sliding scale while utilizing steroids. - Give the NPH in the morning around breakfast time. --03/31/17: Prednisone 40mg/day ==> Administer 25 units of NPH in the morning {do not give if prednisone not given} --04/01/17 through 04/03/17: Prednisone 30mg/day ==> Administer 18 units of NPH in the morning {do not give if prednisone not given} --04/04/17 through 04/06/17: Prednisone 20mg/day ==> Administer 12 units of NPH in the morning {do not give if prednisone not given} --04/07/17 through 04/10/17: Prednisone 10mg/day ==> Administer 6 units of NPH in the morning {do not give if prednisone not given} Low potassium: - take potassium supplement 20 milliequivalents by mouth ONE TIME late in the day on 03/30/17 - this potassium was provided to you at time of discharge from [facility] Diet Patient's current hospital diet: Diabetes Type 1 Diet Discharge Diet Recommended Diet: Diabetes Type 1 Diet Pending Studies Studies pending at discharge: no Laboratory Results Hemoglobin A1c Test 02/26/17 11:24 Range/Units Estimated Average Glucose 258 mg/dl Hemoglobin A1c 10.6 H 4.5-5.6 % Medical Emergencies . Who to Call and When: Medical Emergencies: If at any time you feel your situation is an emergency, please call 911 immediately. . Non-Emergent Contact Non-Emergency issues call your: Primary Care Provider Call Non-Emergent contact if: you have a fever, your pain is concerning you, you have any medication questions . . "Provider Documentation" section prepared by Gloria Ibrahim. . Core Measure Problem Core Measures: None
[2017-03-29] MEDS: MONTELUKAST SOD 10 MG TAB PO SCH (20:45)
[2017-03-29] MEDS: ATORVASTATIN 10 MG TAB PO SCH (20:45)
[2017-03-29] MEDS: FEXOFENADINE HCL 180 MG TAB PO SCH (20:46)
[2017-03-29] MEDS: ENOXAPARIN 40 MG/0.4 ML SYR SC SCH (20:47)
[2017-03-30] MEDS: LEVOTHYROXINE 150 MCG TAB PO SCH (05:45)
[2017-03-30 07:35] VITALS: PULSE 60; O2SAT 91
[2017-03-30] MEDS: ALBUT/IPRATROP 3MG/0.5MG NEB 3 ML VIAL INH SCH (07:35)
[2017-03-30] MEDS: INSULIN HUMAN NPH SC SCH (07:52)
[2017-03-30 07:53] VITALS: BP 124/79; PULSE 63; TEMP 36.9; O2SAT 91
[2017-03-30] MEDS: INSULIN ASPART 100 UNITS/ML 3 ML PEN SC SCH ×3 (07:53→12:19)
[2017-03-30] MEDS: FLUTICASONE HFA 110MCG INHALER INH SCH (09:14)
[2017-03-30] MEDS: SALMETEROL XINAFOATE 50MCG 28 BLISTER INH INH SCH (09:14)
[2017-03-30] MEDS: PANTOprazole SOD 40 MG TAB PO SCH (09:15)
[2017-03-30] MEDS: ZINC SULFATE 220 MG CAP PO SCH (09:15)
[2017-03-30] MEDS: CEROVITE ADV FORMULA TAB PO SCH (09:15)
[2017-03-30] MEDS: GUAIFENESIN 600 MG TABCR PO SCH (09:15)
[2017-03-30] MEDS: CITALOPRAM 40 MG TAB PO SCH (09:16)
[2017-03-30] MEDS: SODIUM CHLORIDE 0.9% IRRIG 1,000 ML PLCT IR SCH (09:25)
[2017-03-30] MEDS: NovoLOG INSULIN PUMP SCH ×2 (09:30→12:16)
[2017-03-30] MEDS ORDERED: INSULIN ASPART 100 UNITS/ML VIAL SC PRN (09:30)
[2017-03-30 10:43] LABS: CALCIUM 8.1 mg/dl (8.5-10.1); CREATININE 0.92 mg/dl (0.60-1.20); POTASSIUM 3.2 mmol/L (3.5-5.1)
[2017-03-30] MEDS: LEVOFLOXACIN 750 MG TAB PO SCH (11:04)
[2017-03-30 11:19] VITALS: PULSE 80; O2SAT 92
[2017-03-30] MEDS ORDERED: POTASSIUM CHLORIDE 20 MEQ TABCR PO STA (11:38)
[2017-03-30] MEDS ORDERED: OXGN (12:04)
[2017-03-30] MEDS ORDERED: MCRK20 PO (12:04)
[2017-03-30 12:08] VITALS: BP 124/79; PULSE 80; TEMP 36.9; O2SAT 92
[2017-03-30] MEDS ORDERED: POTASSIUM CHLORIDE 20 MEQ TABCR PO ONE (16:00)
--- NOTE | 2017-03-31 21:58 | Discharge Summary ---
Discharge Summary Date of Service Mar 31, 2017. Discharge Summary Admission Date: Mar 25, 2017 at 14:31 Discharge Date: Mar 30, 2017 Discharge Disposition: Personal care (Residential) Principal Diagnosis: acute/chronic hypoxic respiratory failure Problems/Secondary Diagnoses: 1. asthma / bronchiectasis with exacerbation 2. T1DM 3. Down's syndrome 4. Tracheal stenosis s/p tracheostomy 5. h/o depression 6. hypothyroidism 7. CAMILLA 8. GERD 9. memory loss / suspected mild cognitive impairment 10. chronic abdominal pain - outpatient GI follow-up recommended Immunizations: Have You Had Influenza Vaccine: N/A Influenza Vaccine Date: Dec 18, 2005 History of Tetanus Vaccine?: Unknown Tetanus Immunization Date: May 22, 2001 History of Pneumococcal: Yes Pneumococcal Date: August 15, 2012 History of Hepatitis B Vaccine: No Procedures: chest x-ray Consultations: pulmonary - Kirk Ojeda MD pharmacy glycemic consult Medication Reconciliation New Medications: Home O2 Therapy (Oxygen) Gas 2 LITERS NA DIRECTED, #1 2 liters at rest, 4 liters with activity. Insulin Human NPH (Novolin N) 100 Units/Ml Susp 6-25 UNITS SC DAILY for 12 Days, #2 VIAL Take sliding scale based on Prednisone taper Levofloxacin (Levofloxacin) 750 Mg Tab 750 MG PO DAILY@11 for 1 Day, #1 TAB Take on 03/31 Potassium Chloride (Klor-Con M20) 20 Meq Tabcr 20 MEQ PO ONE, #1 TAB 0 Refills take late in the afternoon on 03/30/17 Prednisone Tab (Prednisone) 10 Mg Tab 10 MG PO DAILY, #23 TAB 40 mg 03/31; 30 mg 04/01-; 20 mg 04/04-; 10 mg 04/07- Continued Medications: Acetaminophen (Tylenol) 500 Mg Tab 1000 MG PO Q6H PRN for GENERAL DISCOMFORT MAX 8 TABLETS IN 24 HOURS Albuterol Hfa (Ventolin Hfa) 200 Puffs/92580 Mcg Aers 2 PUFFS INH QID PRN for Shortness of Breath Albuterol Sulf (Proventil 0.083% 2.5MG/3ML) 2.5 Mg/3 Ml Nebu 2.5 MG INH TID TAKE VIA TRACH MASK Atorvastatin (Lipitor) 10 Mg Tab 10 MG PO QPM Calcium Carbonate-Cholecalcife (Oyster Shell Calcium + D) 1 Tab Tab 1 TAB PO TID MORNING, AFTERNOON AND BEDTIME Citalopram Hydrobromide (Celexa) 40 Mg Tab 40 MG PO DAILY, TAB Clotrimazole (Topical) (Anti-Fungal) 1 % Cre 1 APPLN TOP TID PRN for RASH APPLY 3 TIMES DAILY NEEDED FOR RASH AROUND TRACH Dextrose (Diabetic Use) (Insta-Glucose) 77.4 % Gel 1 TUBE PO UD PRN for LOW BLOOD SUGAR EPISODES INSA-GLUCOSE 40% GEL Fexofenadine Hcl (Danielle) 180 Mg Tab 180 MG PO HS, TAB Fluconazole (Diflucan) 150 Mg Tab 150 MG PO DIRECTED PRN for YEAST INFECTION Fluticasone Propionate (Flovent Hfa) 120 Puffs/62604 Mcg Aero 2 PUFFS INH AMHS USE WITH AEROCHAMBER. RINSE MOUTH AFTER USE. * FLOVENT HFA 110 MCG * Furosemide (Lasix) 20 Mg Tab 20 MG PO DAILY PRN for WEIGHT GAIN, TAB GIVE WITH WEIGHT GAIN OF 3 POUNDS OR MORE Glucagon (Glucagon Emergency Kit) 1 Mg Kit 1 MG IM PRN for UNRESPONSIVE PRN FOR LOW BLOOD SUGAR EPISODES Glucose-Vitamin C (Dex4) 1 Chw Chw 1 TAB PO DAILY PRN for LOW BLOOD SUGARS Guaifenesin Ext Rel (Mucinex Ext Rel) 600 Mg Tab 600 MG PO Q12, TAB Home O2 Therapy (Oxygen) Gas 4 LITERS NA PRN 4L/MIN 30% VIA TRACH HS Ibuprofen (Motrin) 600 Mg Tab 600 MG PO TID PRN for Pain, 0 Refills Insulin Aspart (novoLOG INSULIN PUMP ) 1 Ea Inj 1 EA N/A UD, EA Insulin Glargine (Lantus) 100 Unit/Ml Inj 0 SC UD PRN for PUMP MALFUNCTION USE IF NEEDED FOR A PUMP MALFUNCTION Levothyroxine Sodium (Levothyroxine Sodium) 150 Mcg Tab 150 MCG PO QAM for 90 Days, #90 TAB 3 Refills Montelukast Sodium (Singulair) 10 Mg Tab 10 MG PO HS, TAB Multiple Vitamins W/ Minerals (Therems M) 1 Tab Tab 1 TAB PO DAILY Omeprazole (Prilosec) 20 Mg Capcr 20 MG PO QAM, CAP Promethazine (Phenergan ) 12.5 Mg Tab 12.5 MG PO Q8 PRN for Nausea or Vomiting, TAB Salmeterol Xinafoate (Serevent Diskus) 50 Mcg Aerp 1 PUFF INH AMPM Sodium Chloride (Gu Irrigant) (Sodium Chloride 0.9%) 0.9 % Mary Anne DAILY USE TO CLEAN TRACH TUBE DAILY. Sodium Fluoride (Dental) (Phos-Flur) 1.1 % Gel 0.5 OZ PO HS RINSE MOUTH AND EXPECTORATE Sulfa/Trimethoprim (Bactrim Ds 800MG/160MG) Tab 1 TAB PO HS, TAB ON CONTINUOUSLY PER CAD INTERN Zinc Sulfate (Zinc Sulfate) 220 Mg Cap 220 MG PO AMHS Referrals At Discharge Follow up Referrals: Claim Professional Referral - Within 1-2 Weeks @ [facility] Provider Group with Vladimir SaalsMD Discharge Exam Physical Exam: General Appearance: no apparent distress, + pertinent finding (dysmorphic features of Down's syndrome) ENT: pharynx normal Neck: no JVD, + pertinent finding (metal trach in place, no secretions) Respiratory/Chest: no respiratory distress, no accessory muscle use, + wheezing (mild b/l ) Cardiovascular: regular rate, rhythm, no gallop, normal peripheral pulses, + systolic murmur (2/6 LSB) Abdomen / GI: normal bowel sounds, non tender, soft, no organomegaly Extremities: no pedal edema Neurologic/Psychiatric: alert, + disoriented Skin: no rash Hospital Course HISTORY OF PRESENT ILLNESS: This is a 51 y/o female with a history of Down's syndrome, asthma, tracheal stenosis s/p tracheostomy (1998), recurrent respiratory infections on prophylactic antibiotics, "brittle" T1DM, depression, hypothyroidism, CAMILLA, and GERD who presented to the ED on 03/25/17 with lethargy, cough, shortness of breath and hypoxia. The patient had recently been admitted to [facility] with bilateral pneumonia on 02/19 where she received antibiotics and steroids. The patient had been doing well back at her detention, but over the weekend she developed lethargy and change in mental status. Per her caregiver at bedside, the patient had a productive cough this morning and audible wheezing, and she was not acting herself. The caregiver states that currently, the patient is back to her normal self. The patient had followed up with pulmonology last week where she was placed on continuous oxygen, 2L at rest and 4L with exertion. Per caregiver, the patient had just sat down after ambulating on 4L when she became pale and SOB. Her pulse ox was 83% on the 4L even after rest. Outpatient pulmonary records note that the patient may require another bronchoscopy. The patient denies fevers, chills, sweats, chest pain, palpitations, claudication, nausea, vomiting, abdominal pain, dysuria, hematuria , urinary retention, paralysis, weakness, numbness and tingling. HOSPITAL COURSE: The patient's acute on chronic hypoxic respiratory failure was due to a combination of suspected bilateral pneumonia and asthma/bronchiectasis exacerbation. She required higher amounts of supplemental oxygen, antibiotics, neb treatments , IV steroids, and aggressive pulmonary toilet. With these measures she made gradual improvement in all symptoms and was ultimately able to be weaned back to her normal O2 amount of 2 liters at rest. She will continue to use 4 liters with activity. She remained hemodynamically stable throughout her hospitalization. She was seen in consult by pulmonary who advised a 2-week taper of prednisone following discharge. Her hospitalization was complicated by uncontrolled, exceptionally labile T1DM. She was largely managed by the pharmacy glycemic team. They utilized an insulin drip for much of her stay to maintain as best control as possible. On the AM of discharge the patient was transitioned back to her normal insulin pump. In addition, while on the prednisone taper, she will take daily NPH. The NPH dose will decrease over time as the prednisone is tapered. Once the prednisone course has been completed the NPH will be discontinued. Please see the discharge medication list and discharge instructions for additional details. Lastly, personnel from the detention as well as her mother commented that she frequently complains of abdominal pain. I recommended that she have consultation with GI as an outpatient for additional work-up. She is certainly at risk of gastroparesis, gastritis, and other GI pathology. Total Time Spent: Greater than 30 minutes This includes examination of the patient, discharge planning, medication reconciliation, and communication with other providers. Discharge Instructions Please refer to the electronic Patient Visit Report (Discharge Instructions) for additional information. Follow-Up Dr. Akhil Salas on 04/10/2017 Additional Copies To Vladimir Lucio M.D.; Vladimir Salas M.D.
== END 2017-03-30 14:35 | disposition home or self-care (01) | DRG 193 ==
LOC: EDBD 10:14 → C.EDC 10:15 → C.2E 14:31 → ENRESERV 14:54 → C.MS2W 03-26 11:07
PROVIDERS: ADMIT Internal Medicine Sports Medicine; ATTEND Internal Medicine
DX: J18.9 Pneumonia, unspecified organism (principal); J96.21 Acute and chronic respiratory failure with hypoxia; G93.41 Metabolic encephalopathy; J47.1 Bronchiectasis with (acute) exacerbation; J45.909 Unspecified asthma, uncomplicated; E10.65 Type 1 diabetes mellitus with hyperglycemia; T38.0X5A Adverse effect of glucocorticoids and synthetic analogues, initial encounter; Q90.9 Down syndrome, unspecified; F32.9 Major depressive disorder, single episode, unspecified; E03.9 Hypothyroidism, unspecified; K21.9 Gastro-esophageal reflux disease without esophagitis; G47.33 Obstructive sleep apnea (adult) (pediatric); G31.84 Mild cognitive impairment of uncertain or unknown etiology; Z93.0 Tracheostomy status; Z87.01 Personal history of pneumonia (recurrent); Z87.09 Personal history of other diseases of the respiratory system; Z86.19 Personal history of other infectious and parasitic diseases; Z99.81 Dependence on supplemental oxygen; Z79.2 Long term (current) use of antibiotics; Z79.899 Other long term (current) drug therapy; Z88.1 Allergy status to other antibiotic agents; Z82.49 Family history of ischemic heart disease and other diseases of the circulatory system

== ENCOUNTER → 2017-04-03 | Outpatient (CLI) | payer OTHER ==
[~2017-04-03] MED LIST changes: -INSU1INJ23 SQ; -LEVO1TAB35 PO; +LVQ750 PO; +MCRK20 PO; +NVLNI SC; -PRD20 PO; +PRED10TA PO; +SULF800T23 PO
== END | disposition home or self-care (01) ==
LOC: C.LAB1850 13:47
PROVIDERS: ATTEND Internal Medicine Endocrinology, Diabetes & Metabolism
DX: E11.9 Type 2 diabetes mellitus without complications (principal)

== ENCOUNTER → 2017-04-10 | Outpatient (CLI) | payer OTHER ==
--- NOTE | 2017-04-10 09:18 | DIAGNOSTIC IMAGING REPORT ---
CHEST 2 VIEWS ROUTINE HISTORY: 51 years-old Female R05 [id number] acute cough COMPARISON: Chest radiographs 03/25/2017 TECHNIQUE: PA and lateral views of the chest FINDINGS: Cardiac silhouette is mildly enlarged. Tracheostomy cannula overlies the midline at the level of the mid clavicular heads. Right pectoral Iyuwzy-[id number] catheter is unchanged. Surgical clips project over the mid mediastinum superior to the nicolas. There is no pneumothorax or large pleural effusion. Interstitial opacities of the lung bases are again seen, left greater than right with slightly improved aeration of the right lung base. Degenerative changes are seen within the shoulders and spine. IMPRESSION: Persistent interstitial opacities of the bilateral lung bases, left greater than right with improved aeration on the right. The above report was generated using voice recognition software. It may contain grammatical, syntax or spelling errors. Electronically signed by: Trung Betts M.D. 04/10/2017 9:16 AM Dictated Date/Time: 04/10/2017 9:14 AM
== END | disposition home or self-care (01) ==
LOC: C.RAD1850 09:04
PROVIDERS: ATTEND Physician Assistant
DX: R05 Cough (principal)

== ENCOUNTER → 2017-05-01 | Outpatient (CLI) | payer OTHER ==
[~2017-05-01] MED LIST changes: +AMOX875T PO; +DOXY-300 PO; +ERGO500037 PO; -FLUC150T54 PO; +FLUC150T63 PO; +LVQ/500 PO; +[UNRECOGNIZED DRUG - CODE] PO
--- NOTE | 2017-05-01 12:08 | DIAGNOSTIC IMAGING REPORT ---
CHEST 2 VIEWS ROUTINE HISTORY: Cough. COMPARISON: Chest 04/10/2017. FINDINGS: No pneumothorax. No pleural effusions. The heart is stable in size. Right subclavian Port-A-Cath terminates in the SVC. Tracheostomy tube is unchanged in position. The upper lung zones remain clear. Bibasilar interstitial thickening, unchanged. No new focal lung consolidations. No evidence for pulmonary edema. IMPRESSION: Bibasilar interstitial thickening, unchanged. No new focal lung consolidations. Electronically signed by: Alvaro Alvarado M.D. 05/01/2017 12:06 PM Dictated Date/Time: 05/01/2017 12:04 PM
== END ==
LOC: C.RAD1850 10:55
PROVIDERS: ATTEND Physician Assistant
DX: R05 Cough (principal)

== ENCOUNTER 2017-05-05 08:22 | Inpatient (IN) | payer OTHER ==
[2017-05-05] VITALS (9 sets, daily range): BP systolic 98–126; BP diastolic 56–74; PULSE 71–91; TEMP 36.6–37.6; O2SAT 92–97; BMI 30.9
[~2017-05-05] VITALS: Ht 147.3 cm; Wt 70.4 kg
[~2017-05-05 08:22] MED LIST changes: -AMOX875T PO; -DOXY-300 PO; -ERGO500037 PO; -LVQ/500 PO; -[UNRECOGNIZED DRUG - CODE] PO
[2017-05-05] MEDS ORDERED: ALBUT/IPRATROP 3MG/0.5MG NEB 3 ML VIAL INH ONE (08:30)
--- NOTE | 2017-05-05 08:31 | EMERGENCY ROOM VISIT NOTE ---
History Report prepared by Bryce: Raghavendra Voss Under the Supervision of: Dr. Sal Mcmullen M.D. First contact with patient: 08:25 Chief Complaint: RESPIRATORY PROBLEMS Stated Complaint: BREATHING DIFFICULTY History of Present Illness The patient is a 51 year old female who presents to the Emergency Room [facility] with complaints of persistent breathing difficulties upon waking this morning. She states that she has no other symptoms other than the shortness of breath. The patient was here for respiratory failure in March, and has a trach in place. The patient is pleasant and able to answer most questions. She also had pneumonia in the beginning of March. Source of History: patient, EMS Onset: This morning upon waking Position: other (global - breathing difficulties) Symptom Intensity: no other complaints Quality: other (history of respiratory failure) Timing: other (persistent) Associated Symptoms: + SOB Note: No other associated symptoms noted. Review of Systems See HPI for pertinent positives & negatives. A total of 10 systems reviewed and were otherwise negative. Past Medical & Surgical Medical Problems: (1) ASTHMA, UNSPECIFIED (2) CONGESTIVE HEART FAILURE (3) DIAB UVALDO WO COMPL, TYPE I [JUVENILE TYPE], NOT UNCNTRLD (4) DOWN'S SYNDROME (5) Hypoxia (6) Pneumonia (7) Shortness of breath (8) SOB (shortness of breath) Family History Myocardial infarction Social History Smoking Status: Never Smoker Drug Use: none Marital Status: single Housing Status: other Occupation Status: disabled Current/Historical Medications Scheduled Albuterol Sulf (Proventil 0.083% 2.5MG/3ML), 2.5 MG INH TID Amoxicillin & Pot Clavulanate (Augmentin 875-125 mg), 1 TAB PO BID Atorvastatin (Lipitor), 10 MG PO HS Calcium Carbonate-Cholecalcife (Oyster Shell Calcium + D), 1 TAB PO TID Citalopram Hydrobromide (Celexa), 40 MG PO DAILY Doxycycline (Monohydrate) (Doxycycline), 100 MG PO QAM Ergocalciferol (Vitamin D 63473 Unit), 50,000 UNIT PO WK Fexofenadine Hcl (Danielle), 180 MG PO HS Fluticasone Propionate (Flovent Hfa), 2 PUFFS INH AMHS Guaifenesin Ext Rel (Mucinex Ext Rel), 600 MG PO Q12 Home O2 Therapy (Oxygen), 4 LITERS NA PRN Home O2 Therapy (Oxygen), 2 LITERS NA DIRECTED Insulin Aspart (novoLOG INSULIN PUMP ), N/A UD Levofloxacin (Levofloxacin), 500 MG PO DAILY Levothyroxine Sodium (Levothyroxine Sodium), 150 MCG PO QAM Montelukast Sodium (Singulair), 10 MG PO HS Multiple Vitamins W/ Minerals (Therems M), 1 TAB PO QAM Omeprazole (Prilosec), 20 MG PO QAM Salmeterol Xinafoate (Serevent Diskus), 1 PUFF INH AMPM Sodium Chloride (Gu Irrigant) (Sodium Chloride 0.9%), DAILY Sodium Fluoride (Dental) (Phos-Flur Ortho Defense), 0.5 OZ PO HS Zinc Sulfate (Zinc Sulfate), 220 MG PO AMHS Scheduled PRN Acetaminophen (Tylenol), 1,000 MG PO Q6H PRN for GENERAL DISCOMFORT Albuterol Hfa (Ventolin Hfa), 2 PUFFS INH QID PRN for Shortness of Breath Albuterol Sulf (Proventil 0.083% 2.5MG/3ML), 2.5 MG INH TID PRN for CHEST CONGESTION Clotrimazole (Topical) (Anti-Fungal), 1 APPLN TOP TID PRN for RASH Dextrose (Diabetic Use) (Insta-Glucose), 1 TUBE PO DIRECTED PRN for LOW BLOOD SUGAR Fluconazole (Diflucan), 150 MG PO DIRECTED PRN for YEAST INFECTION Furosemide (Lasix), 20 MG PO DAILY PRN for WEIGHT GAIN Glucagon (Glucagon Emergency Kit), 1 MG IM for UNRESPONSIVE Glucose-Vitamin C (Dex4), 1 TAB PO DAILY PRN for LOW BLOOD SUGARS Ibuprofen (Motrin), 600 MG PO TID PRN for Pain Insulin Glargine (Lantus), 0 SC UD PRN for PUMP MALFUNCTION Promethazine (Phenergan ), 12.5 MG PO Q8 PRN for Nausea or Vomiting Allergies Coded Allergies: Cephalosporins (Verified Allergy, Intermediate, rash per mother, 05/05/17) TOLERATED ZOSYN IN PAST ADMISSION AND 05/17/15 Cefaclor (Verified Allergy, Unknown, HIVES, 05/05/17) TOLERATED ZOSYN IN PAST ADMISSION AND 05/17/15 Sertraline (Verified Allergy, Unknown, INTOLERANCE, 05/05/17) Physical Exam Vital Signs Date Time Temp Pulse Resp B/P (MAP) Pulse Ox O2 Delivery O2 Flow Rate FiO2 05/05/17 11:02 102 20 132/66 93 Nasal Cannula 4.0 05/05/17 10:37 95 Nasal Cannula 4.0 05/05/17 10:14 105 18 117/63 95 Nasal Cannula 4.0 05/05/17 08:54 72 18 107/61 99 Nebulizer 05/05/17 08:50 78 16 97 Nasal Cannula 4.0 05/05/17 08:32 81 05/05/17 08:25 99 Nasal Cannula 4.0 05/05/17 08:25 36.8 84 18 102/63 94 Nasal Cannula 4.0 05/05/17 08:25 99 Nasal Cannula 4.0 05/05/17 08:25 99 Nasal Cannula 4.0 Physical Exam GENERAL: Patient is a healthy-appearing well-nourished 51 year old female. HEAD: Normocephalic atraumatic EYES: Ocular movements intact pupils equal and react to light OROPHARYNX mucous membranes are moist no exudates present no erythema or edema present NECK: Supple no nuchal rigidity CHEST: Good equal expansion LUNGS: Wheezes especially in the left lung field. CARDIAC: Normal S1 and S2 ABDOMEN: Soft nontender no guarding BACK: No CVA tenderness EXTREMITIES: No pain upon palpation normal muscle strength in all groups no clubbing cyanosis or edema NEURO: Patient is following commands and answering questions appropriately. Alert and oriented x3 Cranial Nerves 2-12 grossly intact Medical Decision & Procedures ER Provider Diagnostic Interpretation: X-ray results as stated below per interpretation by me and the radiologist: CHEST ONE VIEW PORTABLE CLINICAL HISTORY: Shortness of breath. COMPARISON STUDY: Chest radiograph May 01, 2017. FINDINGS: Right subclavian [id number] and tracheostomy tube are noted. Moderate right lower lung consolidation has developed since exam of May 01, 2017. Mild left lower lung interstitial thickening is unchanged. Cardiomediastinal silhouette is stable. There is no evidence for pulmonary edema. There are bilateral rib fractures. IMPRESSION: Interval development of right lower lung consolidation consistent with pneumonia. Electronically signed by: Manny Gorman M.D. 05/05/2017 9:06 AM Dictated Date/Time: 05/05/2017 9:05 AM Laboratory Results 05/05/17 08:50 Red Blood Count 3.21, Mean Corpuscular Volume 103.1, Mean Corpuscular Hemoglobin 34.0, Mean Corpuscular Hemoglobin Concent 32.9, Mean Platelet Volume 10.2, Neutrophils (%) (Auto) 89.9, Lymphocytes (%) (Auto) 3.2, Monocytes (%) ( Auto) 6.3, Eosinophils (%) (Auto) 0.0, Basophils (%) (Auto) 0.2, Neutrophils # ( Auto) 20.39, Lymphocytes # (Auto) 0.72, Monocytes # (Auto) 1.44, Eosinophils # ( Auto) 0.01, Basophils # (Auto) 0.04 05/05/17 08:50 Test 05/05/17 08:30 05/05/17 08:50 Influenza Type A Antigen Neg for Influ A (NEG) Influenza Type B Antigen Neg for Influ B (NEG) White Blood Count 22.69 K/uL (4.8-10.8) Red Blood Count 3.21 M/uL (4.2-5.4) Hemoglobin 10.9 g/dL (12.0-16.0) Hematocrit 33.1 % (37-47) Mean Corpuscular Volume 103.1 fL (80-100) Mean Corpuscular Hemoglobin 34.0 pg (25-34) Mean Corpuscular Hemoglobin Concent 32.9 g/dl (32-36) Platelet Count 160 K/uL (130-400) Mean Platelet Volume 10.2 fL (7.4-10.4) Neutrophils (%) (Auto) 89.9 % Lymphocytes (%) (Auto) 3.2 % Monocytes (%) (Auto) 6.3 % Eosinophils (%) (Auto) 0.0 % Basophils (%) (Auto) 0.2 % Neutrophils # (Auto) 20.39 K/uL (1.4-6.5) Lymphocytes # (Auto) 0.72 K/uL (1.2-3.4) Monocytes # (Auto) 1.44 K/uL (0.11-0.59) Eosinophils # (Auto) 0.01 K/uL (0-0.5) Basophils # (Auto) 0.04 K/uL (0-0.2) RDW Standard Deviation 54.1 fL (36.4-46.3) RDW Coefficient of Variation 14.2 % (11.5-14.5) Immature Granulocyte % (Auto) 0.4 % Immature Granulocyte # (Auto) 0.09 K/uL (0.00-0.02) Anion Gap 7.0 mmol/L (3-11) Estimated GFR () 79.8 Estimated GFR (Non- 68.9 BUN/Creatinine Ratio 15.4 (10-20) Calcium Level 8.4 mg/dl (8.5-10.1) Total Bilirubin 0.4 mg/dl (0.2-1) Aspartate Amino Transf (AST/SGOT) 26 U/L (15-37) Alanine Aminotransferase (ALT/SGPT) 39 U/L (12-78) Alkaline Phosphatase 101 U/L (45-117) Total Creatine Kinase 29 U/L (26-192) Creatine Kinase MB < 0.5 ng/ml (0.5-3.6) Creatine Kinase MB Ratio (0-3.0) Troponin I < 0.015 ng/ml (0-0.045) Total Protein 6.1 gm/dl (6.4-8.2) Albumin 2.5 gm/dl (3.4-5.0) Globulin 3.6 gm/dl (2.5-4.0) Albumin/Globulin Ratio 0.7 (0.9-2) Labs reviewed by ED physician. Medications Administered Medications (Trade) Dose Ordered Sig/Rene Route Start Time Stop Time Status Last Admin Dose Admin Albuterol/ Ipratropium (Duoneb) 12 ml ONE ONCE INH 05/05/17 08:30 05/05/17 08:31 DC 05/05/17 08:49 12 ML Piperacillin Sod/ Tazobactam Sod (Zosyn Iv) 4.5 gm NOW STAT IV 05/05/17 09:31 05/05/17 09:33 DC 05/05/17 10:08 4.5 GM Levofloxacin (Levaquin / D5W) 750 mg NOW STAT IV 05/05/17 09:31 05/05/17 09:33 DC 05/05/17 10:57 750 MG Sodium Chloride 1,000 ml @ 999 mls/hr Q1H1M STAT IV 05/05/17 09:34 05/05/17 10:34 DC 2/18/18 09:41 999 MLS/HR Acetaminophen (Tylenol Tab) 1,000 mg NOW STAT PO 05/05/17 11:06 05/05/17 11:07 DC 05/05/17 11:21 1,000 MG ECG Per My Interpretation Indication: SOB/dyspnea Rate (beats per minute): 75 Rhythm: normal sinus Findings: other (normal axis, no ST elevation or depression) ED Course 0824: Past medical records reviewed. The patient was evaluated in room B3B. A complete history and physical examination was performed. 0830: Ordered DuoNeb 12 ml INH. 31: Ordered Vancomycin 1gm/270ml Nss 1 gm IV, Levaquin / D5W 750 mg IV, Zosyn IV 4.5 gm IV, NSS 1000 ml @ 999 mls/hr IV. 0935: Upon reexamination the patient is resting comfortably. I discussed results and treatment plan with the patient. She verbalizes agreement and understanding. The patient will be evaluated for further management. 37: I discussed the patient's case with Dr. Dr. Kelley GILMORE historic sites registrar, she has agreed to evaluate the patient for further management and care. Medical Decision Differential diagnosis: Etiologies such as infections, reactive airway disease, pneumonia, pneumothorax , COPD, CHF, cardiac ischemia, pulmonary embolism, musculoskeletal, gastrointestinal, as well as others were entertained. This is a 51-year-old female who presents emergency department complaining of shortness of breath. The patient appears to have pneumonia on her chest x-ray and in addition she has a very large white blood count cell count. She was given an hour-long breathing treatment here in the emergency department. Blood cultures were obtained patient was started on Zosyn and Levaquin and vancomycin. Repeat examination revealed improvement patient's symptoms. Because of the patient's multiple comorbidities the patient was discussed with the hospitalist service. Medication Reconcilliation Current Medication List: was personally reviewed by me Blood Pressure Screening Patient's blood pressure: Normal blood pressure Consults Time Called: [phone] Consulting Physician: Dr. Kelley GILMORE historic sites registrar Returned Call: [phone] I discussed the patient's case with Dr. Dr. Kelley GILMORE historic sites registrar, she has agreed to evaluate the patient for further management and care. Impression Primary Impression: Pneumonia Scribe Attestation The scribe's documentation has been prepared under my direction and personally reviewed by me in its entirety. I confirm that the note above accurately reflects all work, treatment, procedures, and medical decision making performed by me. Departure Information Dispostion Being Evaluated By Hospitalist Patient Instructions My [facility] Problem Qualifiers Primary Impression: Pneumonia Pneumonia type: due to unspecified organism Laterality: unspecified laterality Lung location: unspecified part of lung Qualified Codes: J18.9 - Pneumonia, unspecified organism
[2017-05-05 09:07] LABS: HEMATOCRIT 33.1 % (37-47); HEMOGLOBIN 10.9 g/dL (12.0-16.0); MEAN CELL VOLUME 103.1 fL (80-100); MEAN CORPUSCULAR HGB CONC 32.9 g/dl (32-36); MEAN PLATELET VOLUME 10.2 fL (7.4-10.4); PLATELET COUNT 160 K/uL (130-400); RED CELL DISTRIBUTION WIDTH CV 14.2 % (11.5-14.5); RED CELL DISTRIBUTION WIDTH SD 54.1 fL (36.4-46.3); WHITE BLOOD COUNT 22.69 K/uL (4.8-10.8)
--- NOTE | 2017-05-05 09:08 | DIAGNOSTIC IMAGING REPORT ---
CHEST ONE VIEW PORTABLE CLINICAL HISTORY: Shortness of breath. COMPARISON STUDY: Chest radiograph May 01, 2017. FINDINGS: Right subclavian [id number] and tracheostomy tube are noted. Moderate right lower lung consolidation has developed since exam of May 01, 2017. Mild left lower lung interstitial thickening is unchanged. Cardiomediastinal silhouette is stable. There is no evidence for pulmonary edema. There are bilateral rib fractures. IMPRESSION: Interval development of right lower lung consolidation consistent with pneumonia. Electronically signed by: Manny Gorman M.D. 05/05/2017 9:06 AM Dictated Date/Time: 05/05/2017 9:05 AM
[2017-05-05 09:26] LABS: ALBUMIN 2.5 gm/dl (3.4-5.0); ALT/SGPT 39 U/L (12-78); BLOOD UREA NITROGEN 15 mg/dl (7-18); CALCIUM 8.4 mg/dl (8.5-10.1); CARBON DIOXIDE 29 mmol/L (21-32); CREATININE 0.95 mg/dl (0.60-1.20); GLUCOSE 213 mg/dl (70-99); SODIUM 140 mmol/L (136-145)
[2017-05-05 09:31] LABS: ALKALINE PHOSPHATASE 101 U/L (45-117); AST/SGOT 26 U/L (15-37); CKMB < 0.5 ng/ml (0.5-3.6); TOTAL PROTEIN 6.1 gm/dl (6.4-8.2)
[2017-05-05] MEDS ORDERED: LEVAQUIN 750MG / 150ML D5W IV STA (09:31)
[2017-05-05] MEDS ORDERED: PIPERACILLIN/TAZOBACTAM 4.5 GM/100ML D5W IV STA (09:31)
[2017-05-05] MEDS ORDERED: VANCOMYCIN 1GM/270ML NSS IV STA (09:31)
[2017-05-05 09:32] LABS: BASO % 0.2 %; BASO ABS # 0.04 K/uL (0-0.2); EOS ABS # 0.01 K/uL (0-0.5); IG# 0.09 K/uL (0.00-0.02); LYMPH % 3.2 %; LYMPH ABS # 0.72 K/uL (1.2-3.4); MONO % 6.3 %; MONO ABS # 1.44 K/uL (0.11-0.59); NEUT % 89.9 %; NEUT ABS # 20.39 K/uL (1.4-6.5)
[2017-05-05] MEDS ORDERED: SODIUM CHLORIDE 0.9% 1000ML 1,000 ML IV STA (09:34)
[2017-05-05] MEDS ORDERED: [UNRECOGNIZED DRUG - CODE] PO (10:15)
[2017-05-05] MEDS ORDERED: ALBINS/ INH (10:15)
[2017-05-05] MEDS ORDERED: MULTTAB63 PO (10:15)
[2017-05-05] MEDS ORDERED: AMOX875T PO (10:15)
[2017-05-05] MEDS ORDERED: DOXY-300 PO (10:15)
[2017-05-05] MEDS ORDERED: DEXT40GE PO (10:15)
[2017-05-05] MEDS ORDERED: LVQ/500 PO (10:15)
[2017-05-05] MEDS ORDERED: INSPMPNVLG (10:15)
[2017-05-05] MEDS ORDERED: ERGO500037 PO (10:15)
[2017-05-05 10:20] LABS: INFLUENZA B ANTIGEN Neg for Influ B (NEG)
[2017-05-05] MEDS ORDERED: CLOTRIMAZOLE 1% CR 15 GM TUBE EXT PRN (11:00)
[2017-05-05] MEDS ORDERED: PROMETHAZINE HCL 25 MG TAB PO PRN (11:00)
[2017-05-05] MEDS ORDERED: ACETAMINOPHEN 500 MG TAB PO STA (11:06)
[2017-05-05] MEDS ORDERED: PHARMACY GLYCEMIC MGMT CONSULT PRN (11:23)
[2017-05-05] MEDS ORDERED: PIPERACILL/TAZOBAC CONSULT ACTIVE PRN (11:30)
[2017-05-05] MEDS ORDERED: VANCOMYCIN CONSULT ACTIVE PRN (11:30)
--- NOTE | 2017-05-05 11:37 | History and Physical ---
History & Physical Date & Time of Service: May 05, 2017 at 10:41 Chief Complaint: Breathing Difficulty Primary Care Physician: No Doctor, Assigned History of Present Illness Source: patient, family, caregiver Ms. Early presents for increased O2 needs due to pneumonia. She was admitted in both February and March for recurrent hypoxic respiratory failure. She was started on levaquin outpatient on 05/[address] Salas's office. She is typically placed on rotating antibiotics of Bactrim/Doxycycline. She has a history of frequent pulmonary infections including haemophilus, serratia, group b strep, MRSA, and e. coli. She had a trach placed in 1998. She typically uses 2L O2 at home but is requiring 4 now. No associated coughing or increased secretions. Temp 99.9 today. Patient states she started getting sick over the night. She wears an insulin pump which is currently on. She also uses as CGM monitoring system for sugars. BSGs have ranged from 100s-300. ROS Constitutional: no chills, aches, sweats or fever Respiratory: see HPI Cardiac: no chest pain, palpitations, edema, orthopnea or lightheadedness GI: no abdominal pain, nausea, vomiting, diarrhea or constipation : no dysuria or hesitancy Extremities: no joint pain or weakness Skin: no rash All other systems reviewed and negative Past Medical/Surgical History Past Medical History: 1. Ambulatory dysfunction 2. Anemia 3. Asthma 4. Bed wetting 5. Depression 6. Diabetic hypoglycemia 7. Diabetic peripheral neuropathy associated with type 1 diabetes mellitus 8. Esophageal reflux 9. Generalized osteoarthritis of multiple sites 10. History of bronchiectasis 11. Hypothyroidism 12. Hypoxia 13. Insulin pump titration 14. Mammogram abnormal 15. Menopausal and perimenopausal disorder 16. Morbid obesity 17. Mucopurulent chronic bronchitis 18. Muscle tension 19. Obstructive sleep apnea 20. Patent foramen ovale 21. Renal insufficiency 22. Skin rash 23. Tracheobronchitis 24. Trisomy 21, Down syndrome 25. Urinary incontinence 26. Vitamin D deficiency 27. Herpes simplex type I infection Past Surgical History: 1. History of Aortic Root Aneurysm Resection 2. History of Bronchoscopy 3. History of Hand Surgery 4. History of Permanent Tracheostomy 5. History of Thoracotomy Family History Myocardial infarction Social History Smoking Status: Never Smoker Drug Use: none Marital Status: single Housing status: assisted living Occupational Status: disabled Immunizations History of Influenza Vaccine: N/A Influenza Vaccine Date: Dec 18, 2005 History of Tetanus Vaccine?: Unknown Tetanus Immunization Date: May 22, 2001 History of Pneumococcal: Yes Pneumococcal Date: August 15, 2012 History of Hepatitis B Vaccine: No Multi-Drug Resistant Organisms History of MDRO: No Type of MDRO: MRSA Allergies Coded Allergies: Cephalosporins (Verified Allergy, Intermediate, rash per mother, 05/05/17) TOLERATED ZOSYN IN PAST ADMISSION AND 05/17/15 Cefaclor (Verified Allergy, Unknown, HIVES, 05/05/17) TOLERATED ZOSYN IN PAST ADMISSION AND 05/17/15 Sertraline (Verified Allergy, Unknown, INTOLERANCE, 05/05/17) Home Medications Scheduled Albuterol Sulf (Proventil 0.083% 2.5MG/3ML), 2.5 MG INH TID Amoxicillin & Pot Clavulanate (Augmentin 875-125 mg), 1 TAB PO BID Atorvastatin (Lipitor), 10 MG PO HS Calcium Carbonate-Cholecalcife (Oyster Shell Calcium + D), 1 TAB PO TID Citalopram Hydrobromide (Celexa), 40 MG PO DAILY Doxycycline (Monohydrate) (Doxycycline), 100 MG PO QAM Ergocalciferol (Vitamin D 51280 Unit), 50,000 UNIT PO WK Fexofenadine Hcl (Danielle), 180 MG PO HS Fluticasone Propionate (Flovent Hfa), 2 PUFFS INH AMHS Guaifenesin Ext Rel (Mucinex Ext Rel), 600 MG PO Q12 Home O2 Therapy (Oxygen), 4 LITERS NA PRN Home O2 Therapy (Oxygen), 2 LITERS NA DIRECTED Insulin Aspart (novoLOG INSULIN PUMP ), N/A UD Levofloxacin (Levofloxacin), 500 MG PO DAILY Levothyroxine Sodium (Levothyroxine Sodium), 150 MCG PO QAM Montelukast Sodium (Singulair), 10 MG PO HS Multiple Vitamins W/ Minerals (Therems M), 1 TAB PO QAM Omeprazole (Prilosec), 20 MG PO QAM Salmeterol Xinafoate (Serevent Diskus), 1 PUFF INH AMPM Sodium Chloride (Gu Irrigant) (Sodium Chloride 0.9%), DAILY Sodium Fluoride (Dental) (Phos-Flur Ortho Defense), 0.5 OZ PO HS Zinc Sulfate (Zinc Sulfate), 220 MG PO AMHS Scheduled PRN Acetaminophen (Tylenol), 1,000 MG PO Q6H PRN for GENERAL DISCOMFORT Albuterol Hfa (Ventolin Hfa), 2 PUFFS INH QID PRN for Shortness of Breath Albuterol Sulf (Proventil 0.083% 2.5MG/3ML), 2.5 MG INH TID PRN for CHEST CONGESTION Clotrimazole (Topical) (Anti-Fungal), 1 APPLN TOP TID PRN for RASH Dextrose (Diabetic Use) (Insta-Glucose), 1 TUBE PO DIRECTED PRN for LOW BLOOD SUGAR Fluconazole (Diflucan), 150 MG PO DIRECTED PRN for YEAST INFECTION Furosemide (Lasix), 20 MG PO DAILY PRN for WEIGHT GAIN Glucagon (Glucagon Emergency Kit), 1 MG IM for UNRESPONSIVE Glucose-Vitamin C (Dex4), 1 TAB PO DAILY PRN for LOW BLOOD SUGARS Ibuprofen (Motrin), 600 MG PO TID PRN for Pain Insulin Glargine (Lantus), 0 SC UD PRN for PUMP MALFUNCTION Promethazine (Phenergan ), 12.5 MG PO Q8 PRN for Nausea or Vomiting Physical Exam Vital Signs Date Time Temp Pulse Resp B/P (MAP) Pulse Ox O2 Delivery O2 Flow Rate FiO2 05/05/17 10:14 105 18 117/63 95 Nasal Cannula 4.0 05/05/17 08:54 72 18 107/61 99 Nebulizer 05/05/17 08:50 78 16 97 Nasal Cannula 4.0 05/05/17 08:32 81 05/05/17 08:25 99 Nasal Cannula 4.0 05/05/17 08:25 36.8 84 18 102/63 94 Nasal Cannula 4.0 05/05/17 08:25 99 Nasal Cannula 4.0 05/05/17 08:25 99 Nasal Cannula 4.0 Diagnostics Laboratory Results Results Past 24 Hours Test 05/05/17 08:30 05/05/17 08:50 Range/Units Influenza Type A Antigen Neg for Influ A NEG Influenza Type B Antigen Neg for Influ B NEG White Blood Count 22.69 4.8-10.8 K/uL Red Blood Count 3.21 4.2-5.4 M/uL Hemoglobin 10.9 12.0-16.0 g/dL Hematocrit 33.1 37-47 % Mean Corpuscular Volume 103.1 80-100 fL Mean Corpuscular Hemoglobin 34.0 25-34 pg Mean Corpuscular Hemoglobin Concent 32.9 32-36 g/dl Platelet Count 160 130-400 K/uL Mean Platelet Volume 10.2 7.4-10.4 fL Neutrophils (%) (Auto) 89.9 % Lymphocytes (%) (Auto) 3.2 % Monocytes (%) (Auto) 6.3 % Eosinophils (%) (Auto) 0.0 % Basophils (%) (Auto) 0.2 % Neutrophils # (Auto) 20.39 1.4-6.5 K/uL Lymphocytes # (Auto) 0.72 1.2-3.4 K/uL Monocytes # (Auto) 1.44 0.11-0.59 K/uL Eosinophils # (Auto) 0.01 0-0.5 K/uL Basophils # (Auto) 0.04 0-0.2 K/uL RDW Standard Deviation 54.1 36.4-46.3 fL RDW Coefficient of Variation 14.2 11.5-14.5 % Immature Granulocyte % (Auto) 0.4 % Immature Granulocyte # (Auto) 0.09 0.00-0.02 K/uL Sodium Level 140 136-145 mmol/L Potassium Level 4.0 3.5-5.1 mmol/L Chloride Level 105 98-107 mmol/L Carbon Dioxide Level 29 21-32 mmol/L Anion Gap 7.0 3-11 mmol/L Blood Urea Nitrogen 15 7-18 mg/dl Creatinine 0.95 0.60-1.20 mg/dl Estimated GFR () 79.8 Estimated GFR (Non- 68.9 BUN/Creatinine Ratio 15.4 10-20 Random Glucose 213 70-99 mg/dl Calcium Level 8.4 8.5-10.1 mg/dl Total Bilirubin 0.4 0.2-1 mg/dl Aspartate Amino Transf (AST/SGOT) 26 15-37 U/L Alanine Aminotransferase (ALT/SGPT) 39 12-78 U/L Alkaline Phosphatase 101 45-117 U/L Total Creatine Kinase 29 26-192 U/L Creatine Kinase MB < 0.5 0.5-3.6 ng/ml Creatine Kinase MB Ratio 0-3.0 Troponin I < 0.015 0-0.045 ng/ml Total Protein 6.1 6.4-8.2 gm/dl Albumin 2.5 3.4-5.0 gm/dl Globulin 3.6 2.5-4.0 gm/dl Albumin/Globulin Ratio 0.7 0.9-2 Microbiology Results 05/05/17 Blood Culture, Received Pending 05/05/17 Blood Culture, Received Pending Diagnostic Radiology CHEST ONE VIEW PORTABLE CLINICAL HISTORY: Shortness of breath. COMPARISON STUDY: Chest radiograph May 01, 2017. FINDINGS: Right subclavian [id number] and tracheostomy tube are noted. Moderate right lower lung consolidation has developed since exam of May 01, 2017. Mild left lower lung interstitial thickening is unchanged. Cardiomediastinal silhouette is stable. There is no evidence for pulmonary edema. There are bilateral rib fractures. IMPRESSION: Interval development of right lower lung consolidation consistent with pneumonia. Normal EKG Impression Assessment and Plan Ms. Early is a 51 year old woman here for hospital associated pneumonia PNA/asthma/chronic trach/Sepsis - admit tele - consult pulmonology - CXR shows RLL consolidation - levaquin, zosyn, vanco, nebs - hold home doxy for now - hold on IV fluids for now as patient is taking po and has history of HF - continue home regimen of vibration vest and mucinex for pulm toilet - continue home inhalers - trach care DMI - consult pharmacy for glycemic management - patient uses pump but will discontinue this for inpatient as she does not manage it herself - SS, lantus per pharmacy input - DMI diet - bsgs ac & hs Hx of CHF - last echo 2015 showed elevated right heart pressures and right ventricular dilation, normal EF and left heart function - uses prn lasix for weight gain of more than three pounds - will hold off on lasix for now Hypothyroidism - continue home levothyroxine Advanced Directives Existing Advance Directive: No Existing Living Will: No Existing Power of Hearing Aid Dispenser: No Existing Health Care Proxy: No Resuscitation Status FULL RESUSCITATION VTE Prophylaxis VTE Risk Assessment Done? Y/N: Yes Risk Level: Moderate Given or contraindicated: Enoxaparin (Lovenox)SQ Reviewed: Pt Seen/Exam by Me History JOHNIE Supervision Note: I interviewed and examined the patient. Discussed with JOHNIE Doherty and agree with findings and plan as documented in the note. Any exceptions or clarifications are listed here: Pt is a 51 yo female with a h/o Down Syndrome, DMI on insulin pump, tracheal stenosis s/p tracheostomy, multiple lung infections/recurrent PNA, Pulm HTN and right sided heart failure/cor pulmonale, hypothyroidism, CAMILLA, PFO, GERD, here with recurrent HCAP with RLL PNA. -antibiotics as above but Pulm recommends stopping Levaquin -plan for bronchoscopy tomorrow for BAL and will get cultures -Pharmacy consult for glycemic control -supplemental O2 as needed Documented By: Monserrat Benson
[2017-05-05] MEDS: ALBUT/IPRATROP 3MG/0.5MG NEB 3 ML VIAL INH SCH ×3 (12:00→19:10)
[2017-05-05] MEDS ORDERED: INSULIN HUMAN REGULAR PER UNIT 5 UNITS in SYRINGE 4.95 ML IV SCH (12:30)
[2017-05-05] MEDS ORDERED: INSULIN GLARGINE SOLOSTAR 100 UNITS/ML 3 ML PEN SQ ONE (13:00)
[2017-05-05] MEDS ORDERED: ALBUT/IPRATROP 3MG/0.5MG NEB 3 ML VIAL INH PRN (13:00)
[2017-05-05] MEDS ORDERED: VANCOMYCIN INJ 1,500 MG in SODIUM CHLORIDE 0.9% 500ML 500 ML IV ONE (13:30)
[2017-05-05] MEDS: CALCIUM 600MG + VIT D 400 IU TAB PO SCH ×2 (13:56→21:12)
[2017-05-05] MEDS: INSULIN ASPART 100 UNITS/ML 3 ML PEN SC SCH ×3 (13:59→21:00)
[2017-05-05] MEDS ORDERED: INSULIN HUMAN REGULAR PER UNIT 5 UNITS in SYRINGE 4.95 ML IV ONE (15:30)
--- NOTE | 2017-05-05 15:44 | Pharmacy Progress Note ---
Glycemic Control Intl Consult Date of Service May 05, 2017. Scope Glycemic Pharmacist consulted by JOHNIE Bergeron on 05/05/17 for glycemic control and to write orders per [facility] inpatient glycemic control protocol Objective Weight (Kilograms): 67.100 Accuchecks BSG (last 24hrs): Test 05/05/17 08:50 05/05/17 12:24 05/05/17 13:25 Random Glucose 213 mg/dl (70-99) Bedside Glucose 363 mg/dl (70-90) 379 mg/dl (70-90) Laboratory Data (last 24hrs) Test 05/05/17 08:50 Anion Gap 7.0 mmol/L BUN/Creatinine Ratio 15.4 Blood Urea Nitrogen 15 mg/dl Creatinine 0.95 mg/dl Potassium Level 4.0 mmol/L Sodium Level 140 mmol/L White Blood Count 22.69 K/uL Red Blood Count 3.21 M/uL Hemoglobin 10.9 g/dL Hematocrit 33.1 % Mean Corpuscular Volume 103.1 fL Mean Corpuscular Hemoglobin 34.0 pg Mean Corpuscular Hemoglobin Concent 32.9 g/dl Platelet Count 160 K/uL Mean Platelet Volume 10.2 fL Neutrophils (%) (Auto) 89.9 % Lymphocytes (%) (Auto) 3.2 % Monocytes (%) (Auto) 6.3 % Eosinophils (%) (Auto) 0.0 % Basophils (%) (Auto) 0.2 % Neutrophils # (Auto) 20.39 K/uL Lymphocytes # (Auto) 0.72 K/uL Monocytes # (Auto) 1.44 K/uL Eosinophils # (Auto) 0.01 K/uL Basophils # (Auto) 0.04 K/uL Recent Pertinent Medications Outpatient Anti-diabetic Regimen: * Novolog pump (settings from recent admissions) * Basal total 9.6 units/day * CF 65,70 * CR 15 * Goal 100-140 and 100-150 * A1c = 10.2 % 02/20/17 Risk Factors for Insulin Resistance: * Infection: pneumonia * Diet: type 1 diabetes diet ordered Assessment & Plan ASSESSMENT: * 51 y/o female, well known to the pharmacy glycemic service, admitted with pneumonia * She is a type 1 diabetic, managed by her caregivers with a Novolog insulin pump as an outpatient * She is typically taken off her insulin pump on admission and switched to either SQ basal/bolus or IV insulin infusion, since she cannot manage her own pump * She is not ordered any steroids but her BSG is currently elevated * Will attempt to utilize IV insulin boluses to correct BSG and use a SQ basal/ bolus regimen similar to her pump settings - slightly tighter for CF/CR since BSGs elevated from stress * I spoke with Polly Doherty and we will try to avoid an insulin drip if possible but can initiate one if BSGs aren't able to be controlled with above plan PLAN FOR INPATIENT GLYCEMIC CONTROL: * Regular insulin 5 unit IV bolus x 1 stat (given ~1330); additional 5 unit bolus @ 1530 for BSG of 338 mg/dL * Basal insulin with LANTUS 10 units SQ daily * D/C insulin pump * Correctional Insulin with NOVOLOG per scale ACHS + 00,04 * Goal Range: Low 110 mg/dL - High 150 mg/dL * Correction Factor: 45 mg/dL/unit * Nutritional / Prandial insulin per carb ratio of 1 unit per 12 grams CHO consumed * Please note that the plan above was derived based on current level of insulin resistance and hospital stress. These recommendations are appropriate for inpatient admission only. Plan of care upon discharge will need to be reassessed to avoid potential outpatient hypo/hyperglycemia. Thank you.
--- NOTE | 2017-05-05 15:47 | Pulmonary Consultation ---
History General Date of Service: May 05, 2017. Stated Complaint: Right lower lobe infiltrate and increased work of breathing HPI The patient is a 51 year old female who presents to [facility] with complaints of Pneumonia. The patient's primary care provider is No Doctor, Assigned. The patient is a very pleasant female with multiple recent admissions for respiratory insufficiency to the [facility] in February and March 20162017. At this time she was treated with antibiotics for pneumonia as well as bronchiectasis. Recently she was having some increased work of breathing and was started as an outpatient by the pulmonary clinic on Levaquin. She has a past medical history significant for recurrent tracheobronchial infections on rotating antibiotics with Bactrim/doxycycline, tracheal stenosis status post tracheostomy March 2018 with previous laser resections, history of MRSA, bibasilar bronchiectasis, tracheal rings/bronchial rings calcification , oxygen dependent, insulin-dependent diabetes, hypothyroidism, reflux disease, trisomy 21 with PFO. She is also had multiple pulmonary infections previously going out Haemophilus, Serratia marcescens, group B Streptococcus, MRSA and E. coli. She was in her normal state of health until she awoke this morning and started noticing increasing dyspnea on exertion. She is denying chest pain, fever, chills, pleurisy, rigors or productive sputum. She and her grandmother at the bedside do describe a history consistent with aspiration. Review of Systems Constitutional: reports: no symptoms Eyes: reports: no symptoms ENT: reports: no symptoms Cardiovascular: reports: no symptoms Respiratory: reports: as stated in HPI Gastrointestinal: reports: as stated in HPI Genitourinary - Female: reports: no symptoms Musculoskeletal: reports: no symptoms Integumentary: reports: no symptoms Neurologic: reports: no symptoms Psychiatric: reports: no symptoms Hematologic / Lymphatic: no symptoms Allergic / Immunologic: no symptoms Past Medical History Past Medical History: 1. Ambulatory dysfunction 2. Anemia 3. Asthma 4. Bed wetting 5. Depression 6. Diabetic hypoglycemia 7. Diabetic peripheral neuropathy associated with type 1 diabetes mellitus 8. Esophageal reflux 9. Generalized osteoarthritis of multiple sites 10. History of bronchiectasis 11. Hypothyroidism 12. Hypoxia 13. Insulin pump titration 14. Mammogram abnormal 15. Menopausal and perimenopausal disorder 16. Morbid obesity 17. Mucopurulent chronic bronchitis 18. Muscle tension 19. Obstructive sleep apnea 20. Patent foramen ovale 21. Renal insufficiency 22. Skin rash 23. Tracheobronchitis 24. Trisomy 21, Down syndrome 25. Urinary incontinence 26. Vitamin D deficiency 27. Herpes simplex type I infection Past Medical History: asthma Past Surgical History: 1. History of Aortic Root Aneurysm Resection 2. History of Bronchoscopy 3. History of Hand Surgery 4. History of Permanent Tracheostomy 5. History of Thoracotomy Family History Myocardial infarction Social History Denied: History of Alcohol Use (History) Marital History - Single Never smoker Physical Disability: Denied: History of Tobacco Use Uses Safety Equipment - Seatbelts Hx Tobacco Use In Past Year?: No Smoking Status: Never Smoker Marital status: single Housing status: assisted living Occupational Status: disabled Immunizations History of Influenza Vaccine: N/A Influenza Vaccine Date: Dec 18, 2005 History of Tetanus Vaccine?: Unknown Tetanus Immunization Date: May 22, 2001 History of Pneumococcal: Yes Pneumococcal Date: August 15, 2012 History of Hepatitis B Vaccine: No History of MDRO History of MDRO: No Allergies Coded Allergies: Cephalosporins (Verified Allergy, Intermediate, rash per mother, 05/05/17) TOLERATED ZOSYN IN PAST ADMISSION AND 05/17/15 Cefaclor (Verified Allergy, Unknown, HIVES, 05/05/17) TOLERATED ZOSYN IN PAST ADMISSION AND 05/17/15 Sertraline (Verified Allergy, Unknown, INTOLERANCE, 05/05/17) Current Medications Reported Home Medications Medications Dose Route/Sig Max Daily Dose Days Date Category Dose Instructions Insta-Glucose (Dextrose (Diabetic Use)) 77.4 % Gel 1 Tube PO DIRECTED PRN 05/05/17 Reported novoLOG INSULIN PUMP (Insulin Aspart) 1 Ea Inj N/A UD 05/05/17 Reported USE IN THE INSULIN PUMP DIRECTED Vitamin D 86554 Unit (Ergocalciferol) 50,000 Unit Cap 50,000 Unit PO WK 05/05/17 Reported ONCE EVERY 7 DAYS (THURSDAYS) Therems M (Multiple Vitamins W/ Minerals) 1 Tab Tab 1 Tab PO QAM 05/05/17 Reported Phos-Flur Ortho Defense (Sodium Fluoride (Dental)) 0.044 % Mary Anne 0.5 Oz PO HS 05/05/17 Reported RINSE WITH 1\2 OUNCE BY MOUTH Doxycycline (Doxycycline (Monohydrate)) 100 Mg Cap 100 Mg PO QAM 05/05/17 Reported TAKE FOR THE MONTHS OF APRIL, JUNE, AUGUST, OCTOBER, DECEMBER, AND FEBRUARY. DO NOT GIVE WITHIN 2 HOURS OF CALCIUM AND MILK OF MAGNESIA Levofloxacin 500 Mg Tab 500 Mg PO DAILY 05/05/17 Reported DO NOT TAKE WITHIN 2 HOURS OF OS-IAIN AND THEREMS-M Proventil 0.083% 2.5MG/3ML (Albuterol Sulf) 2.5 Mg/3 Ml Nebu 2.5 Mg INH TID 05/05/17 Reported USE VIA TRACH MASK Augmentin 875-125 mg (Amoxicillin & Pot Clavulanate) 1 Tab Tab 1 Tab PO BID 05/05/17 Reported Oxygen Gas 2 Liters NA DIRECTED 03/30/17 Rx 2 liters at rest, 4 liters with activity. Sodium Chloride 0.9% (Sodium Chloride (Gu Irrigant)) 0.9 % Mary Anne DAILY 02/19/17 Reported USE TO CLEAN TRACH TUBE DAILY. Dex4 (Glucose-Vitamin C) 1 Chw Chw 1 Tab PO DAILY PRN 02/19/17 Reported Anti-Fungal (Clotrimazole (Topical)) 1 % Cre 1 Appln TOP TID PRN 02/19/17 Reported APPLY 3 TIMES DAILY NEEDED FOR RASH AROUND TRACH Prilosec (Omeprazole) 20 Mg Capcr 20 Mg PO QAM 02/19/17 Reported Singulair (Montelukast Sodium) 10 Mg Tab 10 Mg PO HS 02/19/17 Reported Levothyroxine Sodium 150 Mcg Tab 150 Mcg PO QAM 90 02/19/17 Reported Danielle (Fexofenadine Hcl) 180 Mg Tab 180 Mg PO HS 02/19/17 Reported Celexa (Citalopram Hydrobromide) 40 Mg Tab 40 Mg PO DAILY 02/19/17 Reported Flovent Hfa (Fluticasone Propionate) 120 Puffs/25633 Mcg Aero 2 Puffs INH AMHS 02/19/17 Reported USE WITH AEROCHAMBER. RINSE MOUTH AFTER USE. * FLOVENT HFA 110 MCG * Oyster Shell Calcium + D (Calcium Carbonate-Cholecalcife) 1 Tab Tab 1 Tab PO TID 02/19/17 Reported MORNING, AFTERNOON AND BEDTIME Serevent Diskus (Salmeterol Xinafoate) 50 Mcg Aerp 1 Puff INH AMPM 02/19/17 Reported Mucinex Ext Rel (Guaifenesin) 600 Mg Tab 600 Mg PO Q12 02/19/17 Reported Proventil 0.083% 2.5MG/3ML (Albuterol Sulf) 2.5 Mg/3 Ml Nebu 2.5 Mg INH TID PRN 02/19/17 Reported TAKE VIA TRACH MASK Lantus (Insulin Glargine) 100 Unit/Ml Inj 0 SC UD PRN 02/19/17 Reported USE IF NEEDED FOR A PUMP MALFUNCTION Ventolin Hfa (Albuterol) 200 Puffs/68036 Mcg Aers 2 Puffs INH QID PRN 11/15/16 Reported Lipitor (Atorvastatin Calcium) 10 Mg Tab 10 Mg PO HS 09/19/16 Reported DO NOT TAKE DIFLUCAN WHILE TAKING THIS DRUG. RESUME 2 DAYS AFTER STOP DATE. Phenergan (Promethazine HCl) 12.5 Mg Tab 12.5 Mg PO Q8 PRN 05/16/15 Reported Tylenol (Acetaminophen) 500 Mg Tab 1,000 Mg PO Q6H PRN 07/28/13 Reported MAX 8 TABLETS IN 24 HOURS Diflucan (Fluconazole) 150 Mg Tab 150 Mg PO DIRECTED PRN 07/28/13 Reported MAY REPEAT IN A WEEK IF NEEDED. Lasix (Furosemide) 20 Mg Tab 20 Mg PO DAILY PRN 12/13/12 Reported GIVE WITH WEIGHT GAIN OF 3 LBS IN 24 HOURS AND WITNESS EDEMA\SOB. Glucagon Emergency Kit (Glucagon) 1 Mg Kit 1 Mg IM PRN 08/07/12 Reported PRN FOR LOW BLOOD SUGAR EPISODES Motrin (Ibuprofen) 600 Mg Tab 600 Mg PO TID PRN 01/15/11 Reported Oxygen Gas 4 Liters NA PRN 01/15/11 Reported 4L/MIN 30% VIA TRACH HS Zinc Sulfate 220 Mg Cap 220 Mg PO AMHS 10/15/06 Reported Physical Physical Exam Vital Signs: Date Time Temp Pulse Resp B/P (MAP) Pulse Ox O2 Delivery O2 Flow Rate FiO2 05/05/17 15:13 36.6 91 22 120/74 (89) 92 Nasal Cannula 4.0 05/05/17 14:24 91 16 94 Nasal Cannula 4.0 05/05/17 12:10 37.6 88 20 98/56 (70) 96 Nasal Cannula 2.0 05/05/17 11:42 99 18 125/52 93 Nasal Cannula 4.0 05/05/17 11:02 102 20 132/66 93 Nasal Cannula 4.0 05/05/17 10:37 95 Nasal Cannula 4.0 05/05/17 10:14 105 18 117/63 95 Nasal Cannula 4.0 05/05/17 08:54 72 18 107/61 99 Nebulizer 05/05/17 08:50 78 16 97 Nasal Cannula 4.0 05/05/17 08:32 81 05/05/17 08:25 99 Nasal Cannula 4.0 05/05/17 08:25 36.8 84 18 102/63 94 Nasal Cannula 4.0 05/05/17 08:25 99 Nasal Cannula 4.0 05/05/17 08:25 99 Nasal Cannula 4.0 General Appearance: NO APPARENT DISTRESS Head: NORMOCEPHALIC, ATRAUMATIC Eyes: PERRLA, NO DISCHARGE, EOMI ENT: NORMAL EAR EXAM, NORMAL NASAL EXAM, NORMAL MOUTH EXAM, other Neck: NORMAL RANGE OF MOTION, NO TENDERNESS, other (Antonio tracheostomy in place at this time no signs of ostomy breakdown or infection) Respiratory: other (Some rhonchi appreciated at the bases right greater than left) Cardiovasular: REGULAR RATE/RHYTHM, NORMAL S1S2, other (Unable to appreciate a murmur) Abdomen: NON TENDER, NORMAL BOWEL SOUNDS, NO REBOUND, NO MASSES Genitourinary - Female: EXTERNAL GENITALIA NORMAL Back: NORMAL INSPECTION, NO MIDLINE TENDERNESS, NO CVA TENDERNESS, NO PARAVERTEBRAL TTP Upper Extremities: NO EDEMA, NO DEFORMITY, NORMAL ROM Lower Extremities: edema Edema: Bilateral LE (1+) Pulses: carotid (R) (1+), carotid (L) (1+), posterior tibial (R), posterior tibial (L) (2+) Neuro: ALERT, ORIENTED x 3, NORMAL MOTOR EXAM Reflexes: biceps (R) (2+), bicpes (L) (2+), patellar (R) (2+), patellar (L) (2+ ) Babinski Testing: right (downgoing), left (downgoing) Psychiatric: NORMAL AFFECT Diagnostics Labs Results Past 24 Hours Test 05/05/17 08:30 05/05/17 08:50 05/05/17 12:24 05/05/17 13:25 Range/Units Influenza Type A Antigen Neg for Influ A NEG Influenza Type B Antigen Neg for Influ B NEG White Blood Count 22.69 4.8-10.8 K/uL Red Blood Count 3.21 4.2-5.4 M/uL Hemoglobin 10.9 12.0-16.0 g/dL Hematocrit 33.1 37-47 % Mean Corpuscular Volume 103.1 80-100 fL Mean Corpuscular Hemoglobin 34.0 25-34 pg Mean Corpuscular Hemoglobin Concent 32.9 32-36 g/dl Platelet Count 160 130-400 K/uL Mean Platelet Volume 10.2 7.4-10.4 fL Neutrophils (%) (Auto) 89.9 % Lymphocytes (%) (Auto) 3.2 % Monocytes (%) (Auto) 6.3 % Eosinophils (%) (Auto) 0.0 % Basophils (%) (Auto) 0.2 % Neutrophils # (Auto) 20.39 1.4-6.5 K/uL Lymphocytes # (Auto) 0.72 1.2-3.4 K/uL Monocytes # (Auto) 1.44 0.11-0.59 K/uL Eosinophils # (Auto) 0.01 0-0.5 K/uL Basophils # (Auto) 0.04 0-0.2 K/uL RDW Standard Deviation 54.1 36.4-46.3 fL RDW Coefficient of Variation 14.2 11.5-14.5 % Immature Granulocyte % (Auto) 0.4 % Immature Granulocyte # (Auto) 0.09 0.00-0.02 K/uL Sodium Level 140 136-145 mmol/L Potassium Level 4.0 3.5-5.1 mmol/L Chloride Level 105 98-107 mmol/L Carbon Dioxide Level 29 21-32 mmol/L Anion Gap 7.0 3-11 mmol/L Blood Urea Nitrogen 15 7-18 mg/dl Creatinine 0.95 0.60-1.20 mg/dl Estimated GFR () 79.8 Estimated GFR (Non- 68.9 BUN/Creatinine Ratio 15.4 10-20 Random Glucose 213 70-99 mg/dl Calcium Level 8.4 8.5-10.1 mg/dl Total Bilirubin 0.4 0.2-1 mg/dl Aspartate Amino Transf (AST/SGOT) 26 15-37 U/L Alanine Aminotransferase (ALT/SGPT) 39 12-78 U/L Alkaline Phosphatase 101 45-117 U/L Total Creatine Kinase 29 26-192 U/L Creatine Kinase MB < 0.5 0.5-3.6 ng/ml Creatine Kinase MB Ratio 0-3.0 Troponin I < 0.015 0-0.045 ng/ml Total Protein 6.1 6.4-8.2 gm/dl Albumin 2.5 3.4-5.0 gm/dl Globulin 3.6 2.5-4.0 gm/dl Albumin/Globulin Ratio 0.7 0.9-2 Bedside Glucose 363 379 70-90 mg/dl Microbiology Results 05/05/17 Blood Culture, Received Pending 05/05/17 Blood Culture, Received Pending Diagnostic Radiology Chest x-ray: New right lower lobe infiltrative pattern EKG EKG: Normal sinus rhythm rate 75 Impression Assessment and Plan 51-year-old female admitted with acute on chronic respiratory issues and abnormal chest x-ray: 1. Abnormal chest x-ray: The patient's new chest x-ray does show right lower lobe infiltrative pattern notably different than her one taken in March 2017. She and her grandmother at the bedside also described possibility of aspiration events. She has not had a video swallow/evaluation since 08/04/2012. At this time I do believe we move forward with bronchoscopic evaluation and speech therapy evaluation. 2. Pneumonia: Agree at this time with continuing Zosyn and vancomycin. We will send off for MRSA swab if negative will discontinue vancomycin with the understanding that the patient does have a history of MRSA pneumonia may be colonized. Patient will be covered for hospital associated pneumonia and any other organisms she is previously grown out by bronchoscopy if we continue her on the Zosyn and vancomycin. With this in mind able to discontinue the Levaquin at this time. #3 orders: Set up for bronchoscopy as well as speech evaluation.
--- NOTE | 2017-05-05 16:07 | Pharmacy Progress Note ---
Pharmacy Antibiotic Consult Date of Service: May 05, 2017. Pharmacy Dosing Scope Pharmacy is consulted to initiate vancomycin/zosyn IV dosing therapy, order appropriate labs and adjust drug dose/frequency. Subjective The patient is a 51 year old female admitted on May 05, 2017 at 11:13. Objective Height (Feet): 4 Height (Inches): 10.00 Weight (Kilograms): 67.100 Lab Results (24hrs): Test 05/05/17 08:30 05/05/17 08:50 05/05/17 12:24 05/05/17 13:25 Influenza Type A Antigen Neg for Influ A (NEG) Influenza Type B Antigen Neg for Influ B (NEG) White Blood Count 22.69 K/uL (4.8-10.8) Red Blood Count 3.21 M/uL (4.2-5.4) Hemoglobin 10.9 g/dL (12.0-16.0) Hematocrit 33.1 % (37-47) Mean Corpuscular Volume 103.1 fL (80-100) Mean Corpuscular Hemoglobin 34.0 pg (25-34) Mean Corpuscular Hemoglobin Concent 32.9 g/dl (32-36) Platelet Count 160 K/uL (130-400) Mean Platelet Volume 10.2 fL (7.4-10.4) Neutrophils (%) (Auto) 89.9 % Lymphocytes (%) (Auto) 3.2 % Monocytes (%) (Auto) 6.3 % Eosinophils (%) (Auto) 0.0 % Basophils (%) (Auto) 0.2 % Neutrophils # (Auto) 20.39 K/uL (1.4-6.5) Lymphocytes # (Auto) 0.72 K/uL (1.2-3.4) Monocytes # (Auto) 1.44 K/uL (0.11-0.59) Eosinophils # (Auto) 0.01 K/uL (0-0.5) Basophils # (Auto) 0.04 K/uL (0-0.2) RDW Standard Deviation 54.1 fL (36.4-46.3) RDW Coefficient of Variation 14.2 % (11.5-14.5) Immature Granulocyte % (Auto) 0.4 % Immature Granulocyte # (Auto) 0.09 K/uL (0.00-0.02) Sodium Level 140 mmol/L (136-145) Potassium Level 4.0 mmol/L (3.5-5.1) Chloride Level 105 mmol/L (98-107) Carbon Dioxide Level 29 mmol/L (21-32) Anion Gap 7.0 mmol/L (3-11) Blood Urea Nitrogen 15 mg/dl (7-18) Creatinine 0.95 mg/dl (0.60-1.20) Estimated GFR () 79.8 Estimated GFR (Non- 68.9 BUN/Creatinine Ratio 15.4 (10-20) Random Glucose 213 mg/dl (70-99) Calcium Level 8.4 mg/dl (8.5-10.1) Total Bilirubin 0.4 mg/dl (0.2-1) Aspartate Amino Transf (AST/SGOT) 26 U/L (15-37) Alanine Aminotransferase (ALT/SGPT) 39 U/L (12-78) Alkaline Phosphatase 101 U/L (45-117) Total Creatine Kinase 29 U/L (26-192) Creatine Kinase MB < 0.5 ng/ml (0.5-3.6) Creatine Kinase MB Ratio (0-3.0) Troponin I < 0.015 ng/ml (0-0.045) Total Protein 6.1 gm/dl (6.4-8.2) Albumin 2.5 gm/dl (3.4-5.0) Globulin 3.6 gm/dl (2.5-4.0) Albumin/Globulin Ratio 0.7 (0.9-2) Bedside Glucose 363 mg/dl (70-90) 379 mg/dl (70-90) Assessment & Plan Patient with frequent visits for pulmonary issues/infections placed on broad spectrum antibiotics (vanc, zosyn, levofloxacin) for pneumonia. Loading dose: vancomycin 1500 mg IV X 1 dose (given at 1330) then: vancomycin 1000 mg IV every 18 hours. Goal trough level estimate: between 15 - 20 mcg/mL. Peak and trough or random level has been ordered for: @1930. Zosyn: 3.375 g IV q8h Pharmacy will continue to follow and will adjust dose/frequency as necessary. Thank you
[2017-05-05] MEDS: PIPERACILL/TAZOBAC IV 3.375 GM in DEXTROSE 5% 100ML 100 ML IV SCH (16:25)
[2017-05-05] MEDS: IBUPROFEN 600 MG TAB PO PRN (16:29)
[2017-05-05] MEDS: GUAIFENESIN 600 MG TABCR PO SCH (21:11)
[2017-05-05] MEDS: MONTELUKAST SOD 10 MG TAB PO SCH (21:11)
[2017-05-05] MEDS: FEXOFENADINE HCL 180 MG TAB PO SCH (21:12)
[2017-05-05] MEDS: FLUTICASONE HFA 110MCG INHALER INH SCH (21:12)
[2017-05-05] MEDS: ATORVASTATIN 10 MG TAB PO SCH (21:12)
[2017-05-05] MEDS: ZINC SULFATE 220 MG CAP PO SCH (21:13)
[2017-05-05] MEDS: ENOXAPARIN 40 MG/0.4 ML SYR SC SCH (21:18)
[2017-05-06] VITALS (12 sets, daily range): BP systolic 103–128; BP diastolic 55–70; PULSE 66–80; TEMP 36.6–37.3; O2SAT 85–97; BMI 30.0
[2017-05-06] MEDS: PIPERACILL/TAZOBAC IV 3.375 GM in DEXTROSE 5% 100ML 100 ML IV SCH ×3 (00:16→16:01)
[2017-05-06] MEDS ORDERED: GLUCAGON FOR INJ 1 MG VIAL SQ PRN (00:30)
[2017-05-06] MEDS ORDERED: GLUCOSE 10 TABS/TUBE PO PRN (00:30)
[2017-05-06] MEDS ORDERED: GLUCOSE 40% GEL 15 GM TUBE PO PRN (00:30)
[2017-05-06] MEDS: DEXTROSE 50% 50 ML SYR IV PRN (00:40)
[2017-05-06] MEDS: INSULIN ASPART 100 UNITS/ML 3 ML PEN SC SCH ×6 (04:09→21:08)
[2017-05-06 04:53] LABS: HEMATOCRIT 31.7 % (37-47); HEMOGLOBIN 10.1 g/dL (12.0-16.0); MEAN CELL VOLUME 103.6 fL (80-100); MEAN CORPUSCULAR HGB CONC 31.9 g/dl (32-36); MEAN PLATELET VOLUME 10.5 fL (7.4-10.4); PLATELET COUNT 155 K/uL (130-400); RED CELL DISTRIBUTION WIDTH CV 14.2 % (11.5-14.5); RED CELL DISTRIBUTION WIDTH SD 53.8 fL (36.4-46.3); WHITE BLOOD COUNT 18.37 K/uL (4.8-10.8)
[2017-05-06 05:11] LABS: CALCIUM 8.2 mg/dl (8.5-10.1); CREATININE 0.95 mg/dl (0.60-1.20); POTASSIUM 3.8 mmol/L (3.5-5.1)
[2017-05-06] MEDS: LEVOTHYROXINE 150 MCG TAB PO SCH (06:00)
[2017-05-06] MEDS: ALBUT/IPRATROP 3MG/0.5MG NEB 3 ML VIAL INH SCH ×4 (07:02→19:24)
--- NOTE | 2017-05-06 08:38 | Clinical Documentation Query ---
QUERY 1 OF [address] VITALE, In your clinical opinion is this patient being managed for: ( x ) Chronic respiratory failure with hypoxia ( ) Not Agree ( ) Other explanation of clinical findings (Please Explain) ( ) Unable to determine (Please Define) ( ) Need to Discuss The medical record reflects the following clinical findings, treatment, and risk factors. Clinical Indicators: 51 yo female presenting with pneumonia. Noted to wear chronic home O2 support with increased requirement currently. Treatment:chronic treatment includes O2 support, nebs, recent trach. Risk Factors: asthma, CHF, recurrent pneumonia QUERY 2 OF 3 In your clinical opinion is this patient being managed for: ( x ) Chronic diastolic CHF ( ) Not Agree ( ) Other explanation of clinical findings (Please Explain) ( ) Unable to determine (Please Define) ( ) Need to Discuss The medical record reflects the following clinical findings, treatment, and risk factors. Clinical Indicators: Review of 2016 ECHO showed EF of 60-65% Treatment: prn lasix for wt gain, O2 support Risk Factors: DM, asthma QUERY 3 OF 3 In your clinical opinion is this patient being managed for: ( ) possible/suspected aspiration pneumonia ( ) Not Agree ( ) Other explanation of clinical findings (Please Explain) ( x ) Unable to determine (Please Define) ( ) Need to Discuss The medical record reflects the following clinical findings, treatment, and risk factors. Clinical Indicators:Documentation indicates pt and grandmother describe a history consistent with aspiration. CXR showed RLL consolidation. Treatment: pulmonary consult, video swallow, ST eval, IV vancomycin, IV zosyn Risk Factors: reported history, Down's syndrome, GERD Please clarify and document your clinical opinion in the progress notes and discharge summary. Terms such as "probable", "suspected", "likely", "questionable", "possible", or "still to be ruled out" are acceptable. IF IN AGREEMENT, YOU MUST DOCUMENT ABOVE DIAGNOSTIC STATEMENT IN DAILY PROGRESS NOTES AND DISCHARGE SUMMARY. This document is not part of the patient's record. Thank You, Mar Browning RN [phone]
[2017-05-06] MEDS: VANCOMYCIN INJ 1,000 MG in SODIUM CHLORIDE 0.9% 250ML 250 ML IV SCH (08:51)
[2017-05-06] MEDS: CHOLECALCIFEROL 1000 INTER.UNIT TAB PO SCH (08:52)
[2017-05-06] MEDS: CITALOPRAM 40 MG TAB PO SCH (08:52)
[2017-05-06] MEDS: ZINC SULFATE 220 MG CAP PO SCH ×2 (08:52→21:00)
[2017-05-06] MEDS: GUAIFENESIN 600 MG TABCR PO SCH ×2 (08:52→21:00)
[2017-05-06] MEDS: PANTOprazole SOD 40 MG TAB PO SCH (08:52)
[2017-05-06] MEDS: CEROVITE ADV FORMULA TAB PO SCH (08:52)
[2017-05-06] MEDS: CALCIUM 600MG + VIT D 400 IU TAB PO SCH ×3 (08:52→21:00)
[2017-05-06] MEDS: IBUPROFEN 600 MG TAB PO PRN (08:52)
[2017-05-06] MEDS: FLUTICASONE HFA 110MCG INHALER INH SCH ×2 (08:53→21:00)
[2017-05-06] MEDS: SALMETEROL XINAFOATE 50MCG 28 BLISTER INH INH SCH (08:53)
[2017-05-06] MEDS ORDERED: INSULIN GLARGINE SOLOSTAR 100 UNITS/ML 3 ML PEN SQ SCH (09:00)
[2017-05-06] MEDS ORDERED: DOXYCYCLINE 100 MG PO SCH (09:00)
--- NOTE | 2017-05-06 10:41 | Pulmonology Progress Note ---
Pulmonary Progress Note Date of Service May 06, 2017. Attending Dr. Ozuna Subjective Patient notes she is improved from yesterday but still has dyspnea at rest Objective Patient was comfortable in bes and not using accessory muscle of breathing VS: SaO2: 85-97% FiO2: 40-50% Resp: rhonchi bilaterally with R>>L CARD: S1 S2, RRR ABD: + BS, soft non-tender no rebound PmHx: recurrent tracheobronchial infections on rotating antibiotics with Bactrim /doxycycline, tracheal stenosis status post tracheostomy March 2018 with previous laser resections, history of MRSA, bibasilar bronchiectasis, tracheal rings/bronchial rings calcification, oxygen dependent, insulin-dependent diabetes, hypothyroidism, reflux disease, trisomy 21 with PFO. She is also had multiple pulmonary infections previously going out Haemophilus, Serratia marcescens, group B Streptococcus, MRSA and E. coli. Assessment & Plan 51-year-old female admitted with acute on chronic respiratory issues and abnormal chest x-ray: 1. Abnormal CXR: The patient's new chest x-ray does show right lower lobe infiltrative pattern notably different than her one taken in March 2017. She and her grandmother at the bedside also described possibility of aspiration events. She has not had a video swallow/evaluation since 08/04/2012. At this time I do believe we move forward with bronchoscopic evaluation and speech therapy evaluation. Bronchoscopy set-up for 0800 05/07/17. 2. Pneumonia: Agree at this time with continuing Zosyn and vancomycin. We will send off for MRSA swab if negative will discontinue vancomycin with the understanding that the patient does have a history of MRSA pneumonia may be colonized. Patient will be covered for hospital associated pneumonia and any other organisms she is previously grown out by bronchoscopy if we continue her on the Zosyn and vancomycin. With this in mind able to discontinue the Levaquin at this time. Data Medications: Current Inpatient Medications Medications (Trade) Dose Ordered Sig/Rene Route Start Time Stop Time Status Last Admin Dose Admin Enoxaparin Sodium (Lovenox Inj) 40 mg Q24H SC 05/05/17 21:00 06/04/17 20:59 05/05/17 21:18 40 MG Acetaminophen (Tylenol Tab) 650 mg Q4H PRN PO 05/05/17 11:00 06/04/17 10:59 Atorvastatin Calcium (Lipitor Tab) 10 mg HS PO 05/05/17 21:00 06/04/17 20:59 05/05/17 21:12 10 MG Citalopram Hydrobromide (celeXA TAB) 40 mg DAILY PO 05/06/17 09:00 06/05/17 08:59 05/06/17 08:52 40 MG Clotrimazole (Lotrimin 1% Crm) 1 appln TID PRN EXT 05/05/17 11:00 06/04/17 10:59 Cholecalciferol (Vitamin D Tab) 1,000 inter.unit DAILY PO 05/06/17 09:00 06/05/17 08:59 05/06/17 08:52 1,000 INTER.UNIT Fexofenadine HCl (Danielle Tab) 180 mg HS PO 05/05/17 21:00 06/04/17 20:59 05/05/17 21:12 180 MG Fluticasone Propionate (Flovent Hfa 110MCG Inhaler) 2 puffs AMHS INH 05/05/17 21:00 06/04/17 20:59 05/06/17 08:53 2 PUFFS Guaifenesin (Mucinex Contr Rel Tab) 600 mg Q12 PO 05/05/17 21:00 06/04/17 20:59 05/06/17 08:52 600 MG Ibuprofen (Motrin Tab) 600 mg TID PRN PO 05/05/17 11:00 06/04/17 10:59 05/06/17 08:52 600 MG Levothyroxine Sodium (Synthroid Tab) 150 mcg DAILYBB PO 05/06/17 06:00 06/05/17 05:59 05/06/17 06:00 150 MCG Montelukast Sodium (Singulair Tab) 10 mg HS PO 05/05/17 21:00 06/04/17 20:59 05/05/17 21:11 10 MG Multivitamins/ Minerals (Multivitamin W/ Minerals Tab) 1 tab QAM PO 05/06/17 09:00 06/05/17 08:59 05/06/17 08:52 1 TAB Promethazine HCl (Phenergan Tab) 12.5 mg Q8 PRN PO 05/05/17 11:00 06/04/17 10:59 Salmeterol Xinafoate (Serevent Diskus Inh) 1 puffs DAILY INH 05/06/17 09:00 06/05/17 08:59 05/06/17 08:53 1 PUFFS Zinc Sulfate (Zinc Sulfate Cap) 220 mg AMHS PO 05/05/17 21:00 06/04/17 20:59 05/06/17 08:52 220 MG Calcium/Vitamin D (Caltrate Plus Tab) 1 tab TID PO 05/05/17 14:00 06/04/17 13:59 05/06/17 08:52 1 TAB Pantoprazole Sodium (Protonix Tab) 40 mg QAM PO 05/06/17 09:00 06/05/17 08:59 05/06/17 08:52 40 MG Miscellaneous Information (Order Awaiting Action) 1 ea QS N/A 05/05/17 16:00 06/04/17 15:59 Albuterol/ Ipratropium (Duoneb) 3 ml QIDR INH 05/05/17 12:00 06/04/17 11:59 05/06/17 07:02 3 ML Miscellaneous Information (Consult Glycemic Management Pharmacy) 1 ea UD PRN N/A 05/05/17 11:23 06/04/17 11:22 Piperacillin Sod/ Tazobactam Sod 3.375 gm/Dextrose 115 ml @ 28.75 mls/ hr Q8H IV 05/05/17 16:00 05/12/17 15:59 05/06/17 08:54 28.75 MLS/HR Miscellaneous Information (Consult) 1 ea UD PRN N/A 05/05/17 11:30 06/04/17 11:29 Miscellaneous Information (Consult) 1 ea UD PRN N/A 05/05/17 11:30 06/04/17 11:29 Insulin Glargine (Lantus Solostar Pen) 10 units QAM SQ 05/06/17 09:00 06/05/17 08:59 05/06/17 09:00 10 UNITS Insulin Aspart (novoLOG ASPART) SLIDING SCALE ACHS SC 05/05/17 13:00 06/04/17 12:59 05/06/17 09:00 6 UNITS Albuterol/ Ipratropium (Duoneb) 3 ml Q2H PRN INH 05/05/17 13:00 06/04/17 12:59 05/06/17 02:35 3 ML Insulin Aspart (novoLOG ASPART) SLIDING SCALE 0000,0400 SC 05/06/17 00:00 06/05/17 00:00 05/06/17 04:09 4 UNITS Vancomycin HCl 1000 mg/Sodium Chloride 270 ml @ 125 mls/hr Q18H IV 05/06/17 08:00 05/13/17 07:59 05/06/17 08:51 125 MLS/HR Glucose (Glucose 40% Gel) 15-30 GRAMS 15 GRAMS... UD PRN PO 05/06/17 00:30 06/05/17 00:29 Glucose (Glucose Chew Tab) 4-8 Tablets 4 Tabl... UD PRN PO 05/06/17 00:30 06/05/17 00:29 Dextrose (Dextrose 50% 50ML Syringe) 25-50ML OF 50% DW IV FOR... UD PRN IV 05/06/17 00:30 06/05/17 00:29 05/06/17 00:40 25 ML Glucagon (Glucagon Inj) 1 mg UD PRN SQ 05/06/17 00:30 06/05/17 00:29 Vital Signs: Date Time Temp Pulse Resp B/P (MAP) Pulse Ox O2 Delivery O2 Flow Rate FiO2 05/06/17 08:27 37.3 71 15 114/66 (82) 95 11.0 05/06/17 07:04 71 16 92 Trach Collar 12.0 50 05/06/17 04:00 Trach Collar 12.0 50 05/06/17 03:15 37.0 75 25 128/70 (89) 97 Trach Collar 12.0 05/06/17 03:05 89 Trach Collar 12.0 40 05/06/17 02:35 72 16 85 Trach Collar 12.0 40 05/06/17 00:00 Trach Collar 12.0 40 05/05/17 23:29 37.0 71 26 126/68 (87) 94 Trach Collar 12.0 05/05/17 23:07 20 94 Trach Collar 12.0 40 05/05/17 20:00 Nasal Cannula 4.0 05/05/17 19:43 37.3 79 22 118/62 (80) 95 Nasal Cannula 4.0 05/05/17 19:10 72 16 95 Nasal Cannula 4.0 05/05/17 16:00 Nasal Cannula 4.0 05/05/17 15:13 36.6 91 22 120/74 (89) 92 Nasal Cannula 4.0 05/05/17 14:24 91 16 94 Nasal Cannula 4.0 05/05/17 12:10 37.6 88 20 98/56 (70) 96 Nasal Cannula 2.0 05/05/17 11:42 99 18 125/52 93 Nasal Cannula 4.0 05/05/17 11:02 102 20 132/66 93 Nasal Cannula 4.0 05/05/17 10:37 95 Nasal Cannula 4.0 Laboratory Results: Last 24 Hours Test 05/05/17 12:24 05/05/17 13:25 05/05/17 15:09 05/05/17 16:19 Bedside Glucose 363 mg/dl 379 mg/dl 338 mg/dl 232 mg/dl Test 05/05/17 19:09 05/06/17 00:02 05/06/17 00:22 05/06/17 01:01 Bedside Glucose 93 mg/dl 53 mg/dl 55 mg/dl 204 mg/dl Test 05/06/17 04:03 05/06/17 04:22 05/06/17 07:08 Bedside Glucose 297 mg/dl 225 mg/dl White Blood Count 18.37 K/uL Red Blood Count 3.06 M/uL Hemoglobin 10.1 g/dL Hematocrit 31.7 % Mean Corpuscular Volume 103.6 fL Mean Corpuscular Hemoglobin 33.0 pg Mean Corpuscular Hemoglobin Concent 31.9 g/dl RDW Standard Deviation 53.8 fL RDW Coefficient of Variation 14.2 % Platelet Count 155 K/uL Mean Platelet Volume 10.5 fL Sodium Level 140 mmol/L Potassium Level 3.8 mmol/L Chloride Level 107 mmol/L Carbon Dioxide Level 26 mmol/L Anion Gap 7.0 mmol/L Blood Urea Nitrogen 12 mg/dl Creatinine 0.95 mg/dl Est Creatinine Clear Calc Drug Dose 56.2 ml/min Estimated GFR () 79.8 Estimated GFR (Non- 68.9 BUN/Creatinine Ratio 12.6 Random Glucose 271 mg/dl Calcium Level 8.2 mg/dl
--- NOTE | 2017-05-06 10:56 | Hospitalist Progress Note ---
Hospitalist Progress Note Date of Service May 06, 2017. (Polly Doherty ., JOHNIE) Subjective Pt evaluation today including: conversation w/ patient, physical exam, chart review, lab review, conversation w/ framing consultant Ms. Early is having pain in her tooth on the bottom left. She otherwise is not vocalizing complaints. She is not able to give much of an ROS due to baseline mental status. (Polly Doherty ., JOHNIE) Medications Medications Administered Medications (Trade) Dose Ordered Sig/Rene Route Start Time Stop Time Status Last Admin Dose Admin Albuterol/ Ipratropium (Duoneb) 12 ml ONE ONCE INH 05/05/17 08:30 05/05/17 08:31 DC 05/05/17 08:49 12 ML Piperacillin Sod/ Tazobactam Sod (Zosyn Iv) 4.5 gm NOW STAT IV 05/05/17 09:31 05/05/17 09:33 DC 05/05/17 10:08 4.5 GM Levofloxacin (Levaquin / D5W) 750 mg NOW STAT IV 05/05/17 09:31 05/05/17 15:49 DC 05/05/17 10:57 750 MG Sodium Chloride 1,000 ml @ 999 mls/hr Q1H1M STAT IV 05/05/17 09:34 05/05/17 10:34 DC 05/05/17 09:41 999 MLS/HR Acetaminophen (Tylenol Tab) 1,000 mg NOW STAT PO 05/05/17 11:06 05/05/17 11:07 DC 05/05/17 11:21 1,000 MG Enoxaparin Sodium (Lovenox Inj) 40 mg Q24H SC 05/05/17 21:00 06/04/17 20:59 05/05/17 21:18 40 MG Atorvastatin Calcium (Lipitor Tab) 10 mg HS PO 05/05/17 21:00 06/04/17 20:59 05/05/17 21:12 10 MG Citalopram Hydrobromide (celeXA TAB) 40 mg DAILY PO 05/06/17 09:00 06/05/17 08:59 05/06/17 08:52 40 MG Cholecalciferol (Vitamin D Tab) 1,000 inter.unit DAILY PO 05/06/17 09:00 06/05/17 08:59 05/06/17 08:52 1,000 INTER.UNIT Fexofenadine HCl (Danielle Tab) 180 mg HS PO 05/05/17 21:00 06/04/17 20:59 05/05/17 21:12 180 MG Fluticasone Propionate (Flovent Hfa 110MCG Inhaler) 2 puffs AMHS INH 05/05/17 21:00 06/04/17 20:59 05/06/17 08:53 2 PUFFS Guaifenesin (Mucinex Contr Rel Tab) 600 mg Q12 PO 05/05/17 21:00 06/04/17 20:59 05/06/17 08:52 600 MG Ibuprofen (Motrin Tab) 600 mg TID PRN PO 05/05/17 11:00 06/04/17 10:59 05/06/17 08:52 600 MG Levothyroxine Sodium (Synthroid Tab) 150 mcg DAILYBB PO 05/06/17 06:00 06/05/17 05:59 05/06/17 06:00 150 MCG Montelukast Sodium (Singulair Tab) 10 mg HS PO 05/05/17 21:00 06/04/17 20:59 05/05/17 21:11 10 MG Multivitamins/ Minerals (Multivitamin W/ Minerals Tab) 1 tab QAM PO 05/06/17 09:00 06/05/17 08:59 05/06/17 08:52 1 TAB Salmeterol Xinafoate (Serevent Diskus Inh) 1 puffs DAILY INH 05/06/17 09:00 06/05/17 08:59 05/06/17 08:53 1 PUFFS Zinc Sulfate (Zinc Sulfate Cap) 220 mg AMHS PO 05/05/17 21:00 06/04/17 20:59 05/06/17 08:52 220 MG Calcium/Vitamin D (Caltrate Plus Tab) 1 tab TID PO 05/05/17 14:00 06/04/17 13:59 05/06/17 08:52 1 TAB Pantoprazole Sodium (Protonix Tab) 40 mg QAM PO 05/06/17 09:00 06/05/17 08:59 05/06/17 08:52 40 MG Albuterol/ Ipratropium (Duoneb) 3 ml QIDR INH 05/05/17 12:00 3/20/18 11:59 05/06/17 07:02 3 ML Piperacillin Sod/ Tazobactam Sod 3.375 gm/Dextrose 115 ml @ 28.75 mls/ hr Q8H IV 05/05/17 16:00 05/12/17 15:59 05/06/17 08:54 28.75 MLS/HR Vancomycin HCl 1500 mg/Sodium Chloride 530 ml @ 200 mls/hr NOW ONCE IV 05/05/17 13:30 05/05/17 16:08 DC 05/05/17 13:41 200 MLS/HR Insulin Human Regular 5 units/ Syringe 5 ml @ 30 mls/min 1230 IV 05/05/17 12:30 05/05/17 12:31 DC 05/05/17 12:51 30 MLS/MIN Insulin Glargine (Lantus Solostar Pen) 10 units QAM SQ 05/06/17 09:00 06/05/17 08:59 05/06/17 09:00 10 UNITS Insulin Glargine (Lantus Solostar Pen) 10 units ONE ONCE SQ 05/05/17 13:00 05/05/17 13:01 DC 05/05/17 13:46 10 UNITS Miscellaneous Information (Pending Order) 1 ea ONE ONCE N/A 05/05/17 13:00 05/05/17 13:01 DC 05/05/17 13:00 1 EA Insulin Aspart (novoLOG ASPART) SLIDING SCALE ACHS SC 05/05/17 13:00 06/04/17 12:59 05/06/17 09:00 6 UNITS Albuterol/ Ipratropium (Duoneb) 3 ml Q2H PRN INH 05/05/17 13:00 06/04/17 12:59 05/06/17 02:35 3 ML Insulin Aspart (novoLOG ASPART) SLIDING SCALE 0000,0400 SC 05/06/17 00:00 06/05/17 00:00 05/06/17 04:09 4 UNITS Vancomycin HCl 1000 mg/Sodium Chloride 270 ml @ 125 mls/hr Q18H IV 05/06/17 08:00 05/13/17 07:59 05/06/17 08:51 125 MLS/HR Dextrose (Dextrose 50% 50ML Syringe) 25-50ML OF 50% DW IV FOR... UD PRN IV 05/06/17 00:30 06/05/17 00:29 05/06/17 00:40 25 ML (Polly Doherty CRNP) Objective Vital Signs Date Time Temp Pulse Resp B/P (MAP) Pulse Ox O2 Delivery O2 Flow Rate FiO2 05/06/17 08:27 37.3 71 15 114/66 (82) 95 11.0 05/06/17 07:04 71 16 92 Trach Collar 12.0 50 05/06/17 04:00 Trach Collar 12.0 50 05/06/17 03:15 37.0 75 25 128/70 (89) 97 Trach Collar 12.0 05/06/17 03:05 89 Trach Collar 12.0 40 05/06/17 02:35 72 16 85 Trach Collar 12.0 40 05/06/17 00:00 Trach Collar 12.0 40 05/05/17 23:29 37.0 71 26 126/68 (87) 94 Trach Collar 12.0 05/05/17 23:07 20 94 Trach Collar 12.0 40 05/05/17 20:00 Nasal Cannula 4.0 05/05/17 19:43 37.3 79 22 118/62 (80) 95 Nasal Cannula 4.0 05/05/17 19:10 72 16 95 Nasal Cannula 4.0 05/05/17 16:00 Nasal Cannula 4.0 05/05/17 15:13 36.6 91 22 120/74 (89) 92 Nasal Cannula 4.0 05/05/17 14:24 91 16 94 Nasal Cannula 4.0 05/05/17 12:10 37.6 88 20 98/56 (70) 96 Nasal Cannula 2.0 05/05/17 11:42 99 18 125/52 93 Nasal Cannula 4.0 05/05/17 11:02 102 20 132/66 93 Nasal Cannula 4.0 (Polly Doherty CRNP) Physical Exam Notes: General: no distress Eyes: normal inspection, PERLL Lymph: No cervical lymphadenopathy Respiratory: chest non tender, clear to auscultation, normal breath sounds, no respiratory distress, no accessory muscle use Cardiac: regular rate and rhythm, no rub or gallop, no murmur, no edema, no jvd GI/: active bowel sounds, no abd pain or tenderness, soft, non distended Extremities: normal range of motion, normal strength, non tender Neuro/Psych: alert and oriented to self, normal mood and affect Skin: normal color, dry, did not appreciate and swelling or exudate along teeth where patient is complaining of pain though patient's dentition does appear poor (Polly Doherty CRNP) Laboratory Results Last 24 Hours Test 05/05/17 12:24 05/05/17 13:25 05/05/17 15:09 05/05/17 16:19 Bedside Glucose 363 mg/dl 379 mg/dl 338 mg/dl 232 mg/dl Test 05/05/17 19:09 05/06/17 00:02 05/06/17 00:22 05/06/17 01:01 Bedside Glucose 93 mg/dl 53 mg/dl 55 mg/dl 204 mg/dl Test 05/06/17 04:03 05/06/17 04:22 05/06/17 07:08 Bedside Glucose 297 mg/dl 225 mg/dl White Blood Count 18.37 K/uL Red Blood Count 3.06 M/uL Hemoglobin 10.1 g/dL Hematocrit 31.7 % Mean Corpuscular Volume 103.6 fL Mean Corpuscular Hemoglobin 33.0 pg Mean Corpuscular Hemoglobin Concent 31.9 g/dl RDW Standard Deviation 53.8 fL RDW Coefficient of Variation 14.2 % Platelet Count 155 K/uL Mean Platelet Volume 10.5 fL Sodium Level 140 mmol/L Potassium Level 3.8 mmol/L Chloride Level 107 mmol/L Carbon Dioxide Level 26 mmol/L Anion Gap 7.0 mmol/L Blood Urea Nitrogen 12 mg/dl Creatinine 0.95 mg/dl Est Creatinine Clear Calc Drug Dose 56.2 ml/min Estimated GFR () 79.8 Estimated GFR (Non- 68.9 BUN/Creatinine Ratio 12.6 Random Glucose 271 mg/dl Calcium Level 8.2 mg/dl (Polly Doherty CRNP) Assessment and Plan Ms. Early is a 51 year old woman here for hospital associated pneumonia PNA/asthma/chronic trach/Sepsis/ chronic respiratory failure with hypoxia - consult pulmonology - for bronch tomorrow - CXR shows RLL consolidation - Continue Zosyn and Vanco - may dc vanco if MRSA swab is negative - per pulm rec - hold on IV fluids for now as patient is taking po and has history of HF - continue home regimen of vibration vest and mucinex for pulm toilet - continue home inhalers, supplemental O2 - [facility] DMI - consult pharmacy for glycemic management - patient uses pump but will discontinue this for inpatient as she does not manage it herself - continue SS, lantus per pharmacy input - DMI diet - bsgs ac & hs Hx of CHF - last echo 2015 showed elevated right heart pressures and right ventricular dilation, normal EF and left heart function - uses prn lasix for weight gain of more than three pounds - will hold off on lasix for now Hypothyroidism - continue home levothyroxine (Polly Doherty, JOHNIE) Reviewed: Pt Seen/Exam by Me (Monserrat Benson MD) History EDUCATION COUNSELOR Supervision Note: I interviewed and examined the patient. Discussed with JOHNIE Doherty and agree with findings and plan as documented in the note. Any exceptions or clarifications are listed here: Pt is a 51 yo female with a h/o Down Syndrome, DMI on insulin pump, tracheal stenosis s/p tracheostomy, multiple lung infections/recurrent PNA, Pulm HTN and right sided heart failure/cor pulmonale, hypothyroidism, CAMILLA, PFO, GERD, here with recurrent HCAP with RLL PNA. Video swallow today shows silent aspiration-this is likely recurrent aspiration pneumonia as well. Patient still has complaints of left-sided pain in the cheek and lower jaw. Vitals reviewed Gen: Alert and awake, NAD HEENT: anicteric sclerae, EOMI, inside buccal mucosa and dentition without any sign of ulcer or lesion, there is some swelling of the left cheek, and exquisite tenderness to palpation of the left buccal mucosa and left cheek, poor dentition CV: RRR no mgr nl S1S2 Pulm: Rhonchi scattered and some decreased breath sounds at the bases Abd: +BS soft NT ND no masses or hernias Ext: no edema, 2+ DP pulses Skin: no rashes, warm/dry -Continue Zosyn and vancomycin for aspiration coverage as well as gram-negative pneumonia and MRSA pneumonia coverage -plan for bronchoscopy tomorrow for BAL and will get cultures -Aspiration precautions, speech therapy recommendations appreciated-using nectar thick liquids -Pharmacy consult for glycemic control-with significant hyperglycemia persistent today-increase Lantus to 12 units in the morning and it appears that pharmacy changed the sliding scale for tighter coverage today -supplemental O2 with trach collar at night and nasal cannula during the day -Continue antibiotics which should also help for possible dental infection- discussed with mom at the bedside about getting her dentist appointment within the week after discharge if symptoms persist Documented By: Monserrat Benson (Monserrat Benson MD)
[2017-05-06] MEDS ORDERED: LEVOFLOXACIN / D5W 750 MG in PREMIXED IN D5W 150 ML IV SCH (11:00)
--- NOTE | 2017-05-06 14:07 | DIAGNOSTIC IMAGING REPORT ---
VIDEO SWALLOW HISTORY: Aspiration pneumonia TECHNIQUE: Video fluoroscopic evaluation of swallowing was performed in the AP and lateral projections by the speech pathology staff. The patient is fed nectar-thick and thin liquid barium, honey thick liquid barium, a barium coated wafer, and barium pudding. FLUOROSCOPY TIME: 3.7 minutes. A cine loop submitted. COMPARISON STUDY: None. FINDINGS: Slight delay of epiglottic deflection. This results in multiple episodes of silent aspiration seen throughout the examination with the thin liquid barium, nectar thick liquid barium, and honey thick liquid barium. No significant penetration or aspiration identified. Swallowing function is within normal limits. IMPRESSION: 1. Multiple episodes of silent aspiration seen throughout the examination. 2. Please see the speech pathologist report for detailed findings and recommendations. Electronically signed by: Alvaro Alvarado M.D. 05/06/2017 2:05 PM Dictated Date/Time: 05/06/2017 1:54 PM
[2017-05-06] MEDS: ACETAMINOPHEN 325 MG TAB PO PRN (19:08)
[2017-05-06] MEDS: FEXOFENADINE HCL 180 MG TAB PO SCH (20:59)
[2017-05-06] MEDS: ENOXAPARIN 40 MG/0.4 ML SYR SC SCH (21:00)
[2017-05-06] MEDS: MONTELUKAST SOD 10 MG TAB PO SCH (21:00)
[2017-05-06] MEDS: ATORVASTATIN 10 MG TAB PO SCH (21:00)
[2017-05-07] VITALS (15 sets, daily range): BP systolic 112–130; BP diastolic 62–76; PULSE 62–74; TEMP 37–38.5; O2SAT 90–98; BMI 30.2
[2017-05-07] MEDS: PIPERACILL/TAZOBAC IV 3.375 GM in DEXTROSE 5% 100ML 100 ML IV SCH ×4 (00:14→23:59)
[2017-05-07] MEDS: INSULIN ASPART 100 UNITS/ML 3 ML PEN SC SCH ×5 (00:16→21:00)
[2017-05-07] MEDS: VANCOMYCIN INJ 1,000 MG in SODIUM CHLORIDE 0.9% 250ML 250 ML IV SCH ×2 (02:37→20:06)
[2017-05-07 05:13] LABS: HEMATOCRIT 30.1 % (37-47); HEMOGLOBIN 9.8 g/dL (12.0-16.0); MEAN CELL VOLUME 103.1 fL (80-100); MEAN CORPUSCULAR HEMOGLOBIN 33.6 pg (25-34); MEAN CORPUSCULAR HGB CONC 32.6 g/dl (32-36); MEAN PLATELET VOLUME 10.4 fL (7.4-10.4); PLATELET COUNT 161 K/uL (130-400); RED CELL DISTRIBUTION WIDTH CV 14.1 % (11.5-14.5); RED CELL DISTRIBUTION WIDTH SD 53.4 fL (36.4-46.3); WHITE BLOOD COUNT 12.02 K/uL (4.8-10.8)
[2017-05-07 05:39] LABS: CALCIUM 8.1 mg/dl (8.5-10.1); CREATININE 0.86 mg/dl (0.60-1.20); POTASSIUM 3.5 mmol/L (3.5-5.1)
[2017-05-07] MEDS: LEVOTHYROXINE 150 MCG TAB PO SCH (06:29)
[2017-05-07] MEDS: ALBUT/IPRATROP 3MG/0.5MG NEB 3 ML VIAL INH SCH ×4 (07:12→19:33)
--- NOTE | 2017-05-07 07:42 | Pre Sedation Assessment ---
Pre Sedation Assessment General Date of Sedation: May 07, 2017. Vital Signs Past 12 Hours Date Time Temp Pulse Resp B/P (MAP) Pulse Ox O2 Delivery O2 Flow Rate FiO2 05/07/17 07:12 65 18 96 Trach Collar 12.0 70 05/07/17 04:00 98 Trach Collar 4.0 50 05/07/17 03:47 37.5 63 18 120/70 (87) 93 Trach Collar 12.0 05/07/17 00:00 96 Trach Collar 4.0 50 05/06/17 20:35 36.6 80 22 127/60 (82) 94 Trach Collar 05/06/17 20:01 Nasal Cannula 4.0 Review Cardiovascular: regular rate, rhythm, no edema, no gallop, no JVD, no murmur, normal peripheral pulses Lungs: + rales, + rhonchi, + pertinent finding (increased O2 requirment on) Pre-Sedation Airway Assessment Smoking Status: Never Smoker Hx of Sleep Apnea: No Hx of difficult intubation: No Short Thick Neck: No Thyro-mental Distance: > 3 Finger Breadths Oral Cavity: WNL Mallampati Classification: Class III Procedure Planning Contraindications for Sedation: Contraindicated (patient is increased risk for bornchoscopy as she has intermitent plugs creating episodes of hypoxemia. ) Current Medications Reviewed: Yes Notes The planned sedation has been discussed with the patient. Informed Consent was obtained. I have identified the patient, determined the appropriateness of sedation and have assessed the patient immediately prior to the procedure. All medicine(s) and interventions are by my order.
[2017-05-07] MEDS ORDERED: MIDAZOLAM HCL 5 MG/ML 1 ML VIAL IV ONE (08:47)
[2017-05-07] MEDS ORDERED: LIDOCAINE 4% INH SOLN 4 ML BTL TOP ONE (08:47)
[2017-05-07] MEDS ORDERED: FENTANYL CITRATE INJ 50 MCG/1 ML 2 ML VIAL IV ONE (08:47)
[2017-05-07] MEDS ORDERED: LIDOCAINE HCL 2% LOCAL 50ML VIAL INSTIL ONE (08:47)
[2017-05-07] MEDS ORDERED: MODERATE STRESS LEVEL ONE (09:00)
[2017-05-07] MEDS ORDERED: INSULIN GLARGINE SOLOSTAR 100 UNITS/ML 3 ML PEN SQ SCH (09:00)
[2017-05-07] MEDS ORDERED: INSULIN PROTOCOL GOAL RANGE ONE (09:00)
--- NOTE | 2017-05-07 09:05 | Bronchoscopy Procedure Note ---
Bronchoscopy Procedure Note Procedure: Bronchoscopy, conscious sedation, Bronchial Lavage Consent: Obtained through the patient placed into the chart Pre-procedural diagnosis: aspiration Pna Post-procedural diagnosis: Aspiration pna Start time: 830 End time: 842 Total time: 12minutes Analgesia: 2% liquid lidocaine: Via nebulizer 4% gel lidocaine: Via right naris 2% liquid lidocaine: Via bronchoscopy Sedation: Versed IV: 2mg Fentanyl IV: 50g Procedure: The Olympus video bronchoscope was used for this procedure and passed down through the tracheal ostomy Trachea/Anastasiia: Multiple mucous plugs as well as erythema/cobblestoning of the posterior tracheal wall suggestive of aspiration Right bronchial tree: Right mainstem bronchus: Anatomically within normal limits Right upper lobe: Anatomically within normal limits Bronchus intermedius: Anatomically within normal limits Right middle lobe: Anatomically within normal limits Right lower lobe: Anatomically within normal limits Findings: Significant mucous plugs appreciated coming from the right lower lobe, all it was cleaned Left bronchial tree: Left mainstem bronchus: Anatomically within normal limits Left upper lobe: Anatomically within normal limits Lingula: Anatomically within normal limits Left lower lobe: Anatomically within normal limits Findings: Diffuse poorly appreciated in the left lower lobe Bronchial alveolar lavage: Right EBL: None Complications: None Follow-up: 207
[2017-05-07] MEDS ORDERED: POTASSIUM CHLORIDE 20 MEQ/15 ML UDC PO STA (09:39)
--- NOTE | 2017-05-07 09:59 | Pharmacy Progress Note ---
Pharmacy Glycemic Short Note 2 Date of Service May 07, 2017. OUTPATIENT ANTIDIABETIC REGIMEN: * Novolog insulin pump * HbA1c: 10.6% (02/26/17) ASSESSMENT: * Patient has been significantly hyperglycemic for the past 24+ hours, despite adjustments to SQ insulin regimen. * In the past, BSGs have been shown to be very labile, with small increases in response to hyperglycemia resulting in hypoglycemia. * At this time, it is most appropriate to initiate an IV insulin infusion. If possible, would recommend continuing infusion until patient is able to transition back to her Novolog pump. That is likely the best way to achieve acceptable glycemic control. PLAN FOR INPATIENT GLYCEMIC CONTROL: * Hold patient's Novolog insulin pump * Initiate IV insulin gtt at this time * Moderate Stress Level * Goal range: 110-200 mg/dL PLAN FOR DISCHARGE: * Anticipate that patient will be able to resume home insulin pump on discharge. * Most current A1c (10.6%) indicates sub-optimal glycemic control. Would highly recommend f/u with PCP MONA after discharge to adjust pump settings and work toward optimizing A1c.
[2017-05-07] MEDS: INSULIN IV INFUSION PROTOCOL SCH ×3 (10:00→10:18)
[2017-05-07] MEDS ORDERED: INSULIN HUMAN REGULAR IV BOLUS 1.5 UNIT in SYRINGE 0 ML IV SCH (10:00)
[2017-05-07] MEDS: SODIUM CHLOR 0.45% + 20MEQ KCL 1,000 ML IV SCH (10:01)
[2017-05-07] MEDS: INSULIN REGULAR 250 UNITS in SODIUM CHLORIDE 0.9% 250ML 250 ML IV SCH ×12 (10:03→21:38)
[2017-05-07] MEDS: SALMETEROL XINAFOATE 50MCG 28 BLISTER INH INH SCH (13:17)
[2017-05-07] MEDS: FLUTICASONE HFA 110MCG INHALER INH SCH ×2 (13:17→21:12)
[2017-05-07] MEDS: CALCIUM 600MG + VIT D 400 IU TAB PO SCH ×3 (13:17→21:12)
[2017-05-07] MEDS: CITALOPRAM 40 MG TAB PO SCH (13:18)
[2017-05-07] MEDS: PANTOprazole SOD 40 MG TAB PO SCH (13:18)
[2017-05-07] MEDS: GUAIFENESIN 600 MG TABCR PO SCH ×2 (13:18→21:11)
[2017-05-07] MEDS: CEROVITE ADV FORMULA TAB PO SCH (13:18)
[2017-05-07] MEDS: CHOLECALCIFEROL 1000 INTER.UNIT TAB PO SCH (13:19)
[2017-05-07] MEDS: ZINC SULFATE 220 MG CAP PO SCH ×2 (13:19→21:11)
[2017-05-07] MEDS: ACETAMINOPHEN 325 MG TAB PO PRN (13:43)
[2017-05-07] MEDS ORDERED: ACETAMINOPHEN 325 MG TAB PO ONE (17:00)
[2017-05-07] MEDS ORDERED: NURSING VERBAL MED ORDER ONE (17:00)
[2017-05-07 17:06] LABS: BASO % 0.3 %; BASO ABS # 0.03 K/uL (0-0.2); EOS % 0.3 %; EOS ABS # 0.03 K/uL (0-0.5); HEMATOCRIT 30.1 % (37-47); HEMOGLOBIN 9.9 g/dL (12.0-16.0); IG# 0.12 K/uL (0.00-0.02); LYMPH % 13.4 %; LYMPH ABS # 1.47 K/uL (1.2-3.4); MEAN CORPUSCULAR HEMOGLOBIN 33.6 pg (25-34); MEAN CORPUSCULAR HGB CONC 32.9 g/dl (32-36); MEAN PLATELET VOLUME 10.6 fL (7.4-10.4); MONO % 6.8 %; MONO ABS # 0.75 K/uL (0.11-0.59); NEUT % 78.1 %; NEUT ABS # 8.58 K/uL (1.4-6.5); PLATELET COUNT 176 K/uL (130-400); RED CELL DISTRIBUTION WIDTH CV 14.3 % (11.5-14.5); RED CELL DISTRIBUTION WIDTH SD 53.9 fL (36.4-46.3); WHITE BLOOD COUNT 10.98 K/uL (4.8-10.8)
[2017-05-07] MEDS ORDERED: VANCOMYCIN TROUGH ONE (19:30)
[2017-05-07] MEDS: MONTELUKAST SOD 10 MG TAB PO SCH (21:11)
[2017-05-07] MEDS: ENOXAPARIN 40 MG/0.4 ML SYR SC SCH (21:12)
[2017-05-07] MEDS: ATORVASTATIN 10 MG TAB PO SCH (21:12)
[2017-05-07] MEDS: FEXOFENADINE HCL 180 MG TAB PO SCH (21:12)
--- NOTE | 2017-05-07 21:45 | Pharmacy Progress Note ---
Pharmacy Antibiotic Prog Note Date of Service May 07, 2017. Subjective The patient is currently receiving vancomycin 1000 mg IV every 18 hours. The patient is currently on day # 3 of 7 vancomycin and Zosyn IV therapy for pneumonia. Objective Height (Feet): 4 Height (Inches): 10.00 Weight (Kilograms): 65.600 Levels: Item Value Date Time Vancomycin Level Trough 8.6 mcg/ml 05/07/17 191 Previous dose hung 05/07 @0237. Lab Results (24hrs): Test 05/06/17 21:51 05/07/17 04:48 05/07/17 08:54 05/07/17 16:29 Urine Color YELLOW Urine Appearance CLOUDY (CLEAR) Urine pH 5.0 (4.5-7.5) Urine Specific [place] 1.032 (1.000-1.030) Urine Protein TRACE (NEG) Urine Glucose (UA) 3+ (NEG) Urine Ketones TRACE (NEG) Urine Occult Blood NEG (NEG) Urine Nitrite NEG (NEG) Urine Bilirubin NEG (NEG) Urine Urobilinogen NEG (NEG) Urine Leukocyte Esterase NEG (NEG) Urine WBC (Auto) 5-10 /hpf (0-5) Urine RBC (Auto) 0-4 /hpf (0-4) Urine Hyaline Casts (Auto) 1-5 /lpf (0-5) Urine Epithelial Cells (Auto) >30 /lpf (0-5) Urine Bacteria (Auto) NEG (NEG) Urine Renal Epithelial Cells 10-20 /lpf (0-5) Urine Yeast (Auto) (NONE PRSENT) White Blood Count 12.02 K/uL (4.8-10.8) 10.98 K/uL (4.8-10.8) Red Blood Count 2.92 M/uL (4.2-5.4) 2.95 M/uL (4.2-5.4) Hemoglobin 9.8 g/dL (12.0-16.0) 9.9 g/dL (12.0-16.0) Hematocrit 30.1 % (37-47) 30.1 % (37-47) Mean Corpuscular Volume 103.1 fL (80-100) 102.0 fL (80-100) Mean Corpuscular Hemoglobin 33.6 pg (25-34) 33.6 pg (25-34) Mean Corpuscular Hemoglobin Concent 32.6 g/dl (32-36) 32.9 g/dl (32-36) RDW Standard Deviation 53.4 fL (36.4-46.3) 53.9 fL (36.4-46.3) RDW Coefficient of Variation 14.1 % (11.5-14.5) 14.3 % (11.5-14.5) Platelet Count 161 K/uL (130-400) 176 K/uL (130-400) Mean Platelet Volume 10.4 fL (7.4-10.4) 10.6 fL (7.4-10.4) Sodium Level 143 mmol/L (136-145) Potassium Level 3.5 mmol/L (3.5-5.1) Chloride Level 109 mmol/L (98-107) Carbon Dioxide Level 28 mmol/L (21-32) Anion Gap 6.0 mmol/L (3-11) Blood Urea Nitrogen 11 mg/dl (7-18) Creatinine 0.86 mg/dl (0.60-1.20) Est Creatinine Clear Calc Drug Dose 61.1 ml/min Estimated GFR () 90.0 Estimated GFR (Non- 77.7 BUN/Creatinine Ratio 12.5 (10-20) Random Glucose 177 mg/dl (70-99) Calcium Level 8.1 mg/dl (8.5-10.1) Bedside Urine Test NEG (NEG) Neutrophils (%) (Auto) 78.1 % Lymphocytes (%) (Auto) 13.4 % Monocytes (%) (Auto) 6.8 % Eosinophils (%) (Auto) 0.3 % Basophils (%) (Auto) 0.3 % Neutrophils # (Auto) 8.58 K/uL (1.4-6.5) Lymphocytes # (Auto) 1.47 K/uL (1.2-3.4) Monocytes # (Auto) 0.75 K/uL (0.11-0.59) Eosinophils # (Auto) 0.03 K/uL (0-0.5) Basophils # (Auto) 0.03 K/uL (0-0.2) Immature Granulocyte % (Auto) 1.1 % Immature Granulocyte # (Auto) 0.12 K/uL (0.00-0.02) Test 05/07/17 19:18 05/07/17 19:24 05/07/17 20:25 Vancomycin Level Trough 8.6 mcg/ml (SEE COMMENT) Bedside Glucose 348 mg/dl (70-90) 271 mg/dl (70-90) Renal function slightly improved. Micro Results: 05/05 blood x2 NGTD 05/06 nasal swab (+) MRSA 05/07 blood x2 pending 05/07 bronch washing pending Recent Pertinent Medications Item Value Date Time Vancomycin HCl 270 ml @ 125 mls/hr 05/08/17 0600 1000 mg/Sodium Q12H/IV Chloride Vancomycin HCl 270 ml @ 125 mls/hr 05/06/17 0800 1000 mg/Sodium Q18H/IV 05/07/17 2006 Chloride Piperacillin Sod/ 115 ml @ 28.75 mls/hr 05/05/17 1600 Tazobactam Sod Q8H/IV 05/07/17 1638 3.375 gm/Dextrose Assessment & Plan This drug level is: Subtherapeutic. Will decrease dosing interval. Change to vancomycin 1000 mg IV every 12 hours. Goal trough level estimate: between 15-20 mcg/mL. Trough has been ordered for: 05/09/17 before 0600 dose. Continue Zosyn 3.375 Gm (infused over 4 hr) q8h for CrCl greater than 20 ml/min. Pharmacy will continue to follow and will adjust dose/frequency as necessary. Thank you
[2017-05-07] MEDS: DEXTROSE 50% 50 ML SYR IV PRN (23:11)
[2017-05-08] VITALS (11 sets, daily range): BP systolic 92–123; BP diastolic 51–69; PULSE 72–90; TEMP 36.5–37.9; O2SAT 91–100; Ht 147.3 cm; Wt 70.4 kg
[2017-05-08] MEDS ORDERED: INSULIN HUMAN REGULAR IV BOLUS 4 UNIT in SYRINGE 0 ML IV ONE
--- NOTE | 2017-05-08 01:20 | Hospitalist Progress Note ---
Hospitalist Progress Note Date of Service May 07, 2017. Subjective Pt evaluation today including: conversation w/ patient, conversation w/ family Had bronchoscopy today, spiking some fevers afterwards. Discussed with Pulm who thinks spiking fevers is ok after bronch. There was a lot of mucus impacted in RLL Pt is currently sleepy when I saw her and has a fever, but wakes up and answers questions All Other Systems: Reviewed and Negative Objective Vital Signs Date Time Temp Pulse Resp B/P (MAP) Pulse Ox O2 Delivery O2 Flow Rate FiO2 05/07/17 16:00 Trach Collar 40 05/07/17 15:43 38.5 68 22 130/74 (92) 94 Trach Collar 05/07/17 15:38 70 18 92 Trach Collar 12.0 40 05/07/17 12:09 37.9 05/07/17 12:00 97 Trach Collar 4.0 50 05/07/17 11:21 62 18 96 Trach Collar 12.0 40 05/07/17 11:15 38.0 63 20 127/73 (91) 90 Trach Collar 05/07/17 10:00 Trach Collar 05/07/17 09:25 37.0 64 22 129/76 (93) 94 Trach Collar 30 05/07/17 09:05 69 18 118/77 93 Trach Collar 12 100 05/07/17 09:00 68 18 130/75 93 Trach Collar 12 50 05/07/17 08:55 72 16 128/81 90 Nasal Cannula 5 05/07/17 08:50 68 18 130/75 97 Mask 12 50 05/07/17 08:45 72 18 126/76 97 Mask 12 50 05/07/17 08:40 78 20 120/79 98 Mask 12 100 05/07/17 08:35 82 22 120/79 98 Mask 12 100 05/07/17 08:30 76 20 134/84 97 Mask 12 100 05/07/17 08:25 74 20 126/74 93 Mask 12 50 05/07/17 08:05 74 18 136/82 97 Mask 2 05/07/17 08:00 97 Trach Collar 4.0 50 05/07/17 07:12 65 18 96 Trach Collar 12.0 70 05/07/17 04:00 98 Trach Collar 4.0 50 05/07/17 03:47 37.5 63 18 120/70 (87) 93 Trach Collar 12.0 05/07/17 00:00 96 Trach Collar 4.0 50 05/06/17 20:35 36.6 80 22 127/60 (82) 94 Trach Collar Physical Exam General Appearance: no apparent distress, + thin Eyes: normal inspection, sclerae normal ENT: hearing grossly normal, pharynx normal Neck: trachea midline Respiratory/Chest: no respiratory distress, no accessory muscle use, + pertinent finding (only occasional rhonchi but overall much improved) Cardiovascular: regular rate, rhythm, no edema, no murmur Abdomen: normal bowel sounds, non tender, soft Extremities: normal inspection, no pedal edema, no calf tenderness Neurologic/Psychiatric: no motor/sensory deficits, alert, normal mood/affect Skin: normal color, warm/dry, no rash Laboratory Results Last 24 Hours Test 05/06/17 20:17 05/06/17 21:03 05/06/17 21:51 05/07/17 00:03 Bedside Glucose 359 mg/dl 386 mg/dl 220 mg/dl Urine Color YELLOW Urine Appearance CLOUDY Urine pH 5.0 Urine Specific [place] 1.032 Urine Protein TRACE Urine Glucose (UA) 3+ Urine Ketones TRACE Urine Occult Blood NEG Urine Nitrite NEG Urine Bilirubin NEG Urine Urobilinogen NEG Urine Leukocyte Esterase NEG Urine WBC (Auto) 5-10 /hpf Urine RBC (Auto) 0-4 /hpf Urine Hyaline Casts (Auto) 1-5 /lpf Urine Epithelial Cells (Auto) >30 /lpf Urine Bacteria (Auto) NEG Urine Renal Epithelial Cells 10-20 /lpf Urine Yeast (Auto) Test 05/07/17 03:31 05/07/17 04:48 05/07/17 06:50 05/07/17 08:54 Bedside Glucose 173 mg/dl 252 mg/dl White Blood Count 12.02 K/uL Red Blood Count 2.92 M/uL Hemoglobin 9.8 g/dL Hematocrit 30.1 % Mean Corpuscular Volume 103.1 fL Mean Corpuscular Hemoglobin 33.6 pg Mean Corpuscular Hemoglobin Concent 32.6 g/dl RDW Standard Deviation 53.4 fL RDW Coefficient of Variation 14.1 % Platelet Count 161 K/uL Mean Platelet Volume 10.4 fL Sodium Level 143 mmol/L Potassium Level 3.5 mmol/L Chloride Level 109 mmol/L Carbon Dioxide Level 28 mmol/L Anion Gap 6.0 mmol/L Blood Urea Nitrogen 11 mg/dl Creatinine 0.86 mg/dl Est Creatinine Clear Calc Drug Dose 61.1 ml/min Estimated GFR () 90.0 Estimated GFR (Non- 77.7 BUN/Creatinine Ratio 12.5 Random Glucose 177 mg/dl Calcium Level 8.1 mg/dl Bedside Urine Test NEG Test 05/07/17 09:33 05/07/17 10:57 05/07/17 12:03 05/07/17 13:12 Bedside Glucose 314 mg/dl 388 mg/dl 252 mg/dl 350 mg/dl Test 05/07/17 14:01 05/07/17 16:29 05/07/17 17:27 05/07/17 18:32 Bedside Glucose 379 mg/dl 397 mg/dl 419 mg/dl White Blood Count 10.98 K/uL Red Blood Count 2.95 M/uL Hemoglobin 9.9 g/dL Hematocrit 30.1 % Mean Corpuscular Volume 102.0 fL Mean Corpuscular Hemoglobin 33.6 pg Mean Corpuscular Hemoglobin Concent 32.9 g/dl Platelet Count 176 K/uL Mean Platelet Volume 10.6 fL Neutrophils (%) (Auto) 78.1 % Lymphocytes (%) (Auto) 13.4 % Monocytes (%) (Auto) 6.8 % Eosinophils (%) (Auto) 0.3 % Basophils (%) (Auto) 0.3 % Neutrophils # (Auto) 8.58 K/uL Lymphocytes # (Auto) 1.47 K/uL Monocytes # (Auto) 0.75 K/uL Eosinophils # (Auto) 0.03 K/uL Basophils # (Auto) 0.03 K/uL RDW Standard Deviation 53.9 fL RDW Coefficient of Variation 14.3 % Immature Granulocyte % (Auto) 1.1 % Immature Granulocyte # (Auto) 0.12 K/uL Test 05/07/17 19:18 05/07/17 19:24 Bedside Glucose 348 mg/dl Assessment and Plan Pt is a 51 yo female with a h/o Down Syndrome, DMI on insulin pump, tracheal stenosis s/p tracheostomy, multiple lung infections/recurrent PNA, Pulm HTN and right sided heart failure/cor pulmonale, hypothyroidism, CAMILLA, PFO, GERD, here with recurrent HCAP with RLL PNA. Video swallow shows silent aspiration-this is likely recurrent aspiration pneumonia as well. Patient still has complaints of left-sided pain in the cheek and lower jaw which is likely secondary to a tooth infection Pneumonia RLL-HCAP, gram-negative pneumonia and MRSA pneumonia -Continue Zosyn and vancomycin for aspiration coverage as well as gram-negative pneumonia and MRSA pneumonia coverage-will also cover for dental infection -bronchoscopy performed and will f/u cultures -Aspiration precautions, speech therapy recommendations appreciated-using nectar thick liquids -Pharmacy consult for glycemic control-with significant hyperglycemia persistent today-change to insulin gtt - Mom will get her dentist appointment within the week after discharge if symptoms persist - continue home regimen of vibration vest and mucinex for pulm toilet - continue home inhalers, supplemental O2 - trach care daily DMI on rn long term care insulin, uncontrolled, with hyperglycemia - consult pharmacy for glycemic management - patient uses pump but will discontinue this for inpatient as she does not manage it herself - insulin gtt today for severe hyperglycemia - DMI diet - bsgs ac & hs Hx of CHF - last echo 2015 showed elevated right heart pressures and right ventricular dilation, normal EF and left heart function - uses prn lasix for weight gain of more than three pounds - will hold off on lasix for now Hypothyroidism - continue home levothyroxine Proph-Lovenox Dispo-remain on tele
[2017-05-08 04:38] LABS: HEMATOCRIT 31.5 % (37-47); HEMOGLOBIN 10.2 g/dL (12.0-16.0); MEAN CELL VOLUME 102.6 fL (80-100); MEAN CORPUSCULAR HEMOGLOBIN 33.2 pg (25-34); MEAN CORPUSCULAR HGB CONC 32.4 g/dl (32-36); MEAN PLATELET VOLUME 10.4 fL (7.4-10.4); PLATELET COUNT 187 K/uL (130-400); RED CELL DISTRIBUTION WIDTH CV 14.2 % (11.5-14.5); RED CELL DISTRIBUTION WIDTH SD 53.2 fL (36.4-46.3)
[2017-05-08 05:05] LABS: CALCIUM 8.1 mg/dl (8.5-10.1); CREATININE 0.81 mg/dl (0.60-1.20); POTASSIUM 3.8 mmol/L (3.5-5.1)
[2017-05-08] MEDS: VANCOMYCIN INJ 1,000 MG in SODIUM CHLORIDE 0.9% 250ML 250 ML IV SCH ×2 (05:51→19:39)
[2017-05-08] MEDS: LEVOTHYROXINE 150 MCG TAB PO SCH (05:52)
[2017-05-08] MEDS: ALBUT/IPRATROP 3MG/0.5MG NEB 3 ML VIAL INH SCH ×4 (07:10→19:29)
[2017-05-08] MEDS: PIPERACILL/TAZOBAC IV 3.375 GM in DEXTROSE 5% 100ML 100 ML IV SCH ×2 (09:13→16:37)
[2017-05-08] MEDS: SALMETEROL XINAFOATE 50MCG 28 BLISTER INH INH SCH (09:14)
[2017-05-08] MEDS: FLUTICASONE HFA 110MCG INHALER INH SCH ×2 (09:14→20:59)
[2017-05-08] MEDS: CALCIUM 600MG + VIT D 400 IU TAB PO SCH ×3 (09:15→20:58)
[2017-05-08] MEDS: CITALOPRAM 40 MG TAB PO SCH (09:15)
[2017-05-08] MEDS: GUAIFENESIN 600 MG TABCR PO SCH ×2 (09:15→20:58)
[2017-05-08] MEDS: ZINC SULFATE 220 MG CAP PO SCH ×2 (09:16→20:58)
[2017-05-08] MEDS: CEROVITE ADV FORMULA TAB PO SCH (09:16)
[2017-05-08] MEDS: PANTOprazole SOD 40 MG TAB PO SCH (09:16)
[2017-05-08] MEDS: CHOLECALCIFEROL 1000 INTER.UNIT TAB PO SCH (09:16)
[2017-05-08] MEDS: INSULIN ASPART 100 UNITS/ML 3 ML PEN SC SCH ×4 (09:18→21:00)
[2017-05-08] MEDS: SODIUM CHLOR 0.45% + 20MEQ KCL 1,000 ML IV SCH (10:04)
[2017-05-08] MEDS ORDERED: INSULIN HUMAN REGULAR PER UNIT 5 UNITS in SYRINGE 4.95 ML IV STA (10:45)
--- NOTE | 2017-05-08 11:11 | Pulmonology Progress Note ---
Pulmonary Progress Note Date of Service May 08, 2017. Attending Dr. Ozuna Subjective Patient is without her family today and has no active pulmonary complaints. She states that she is back to her baseline and there is no productive cough this a.m. Objective Patient is sitting up in her chair eating breakfast with no signs of respiratory insufficiency VS: SaO2: 91-97% FiO2: 4 L trach mask Resp: Minimal wheezing appreciated CARD: S1 S2, RRR ABD: + BS, soft non-tender no rebound PmHx: recurrent tracheobronchial infections on rotating antibiotics with Bactrim /doxycycline, tracheal stenosis status post tracheostomy March 2018 with previous laser resections, history of MRSA, bibasilar bronchiectasis, tracheal rings/bronchial rings calcification, oxygen dependent, insulin-dependent diabetes, hypothyroidism, reflux disease, trisomy 21 with PFO. She is also had multiple pulmonary infections previously going out Haemophilus, Serratia marcescens, group B Streptococcus, MRSA and E. coli. Assessment & Plan 51-year-old female admitted with acute on chronic respiratory and newly discovered aspiration 1. Abnormal CXR: The abnormal chest x-ray is most consistent with chronic aspiration base of bronchoscopy, clinical history and swallow evaluation. The patient should continue to adhere to the speech pathologist suggestions/diet plan. 2. Pneumonia: Patient doing well on current antibiotics. It is high likelihood that the patient had aspiration pneumonia. Should know down the antibiotic spectrum after bronchoscopic results return. #3 aspiration: I did speak to the mother, patient and grandmother yesterday about the high likelihood of this recurrence. We spoke about PEG tubes as well as the utility of tracheostomies. The family and patient were not ready to move forward with any intervention. Data Medications: Current Inpatient Medications Medications (Trade) Dose Ordered Sig/Rene Route Start Time Stop Time Status Last Admin Dose Admin Enoxaparin Sodium (Lovenox Inj) 40 mg Q24H SC 05/05/17 21:00 06/04/17 20:59 05/07/17 21:12 40 MG Acetaminophen (Tylenol Tab) 650 mg Q4H PRN PO 05/05/17 11:00 06/04/17 10:59 05/07/17 13:43 650 MG Atorvastatin Calcium (Lipitor Tab) 10 mg HS PO 05/05/17 21:00 06/04/17 20:59 05/07/17 21:12 10 MG Citalopram Hydrobromide (celeXA TAB) 40 mg DAILY PO 05/06/17 09:00 06/05/17 08:59 05/08/17 09:15 40 MG Clotrimazole (Lotrimin 1% Crm) 1 appln TID PRN EXT 05/05/17 11:00 06/04/17 10:59 Cholecalciferol (Vitamin D Tab) 1,000 inter.unit DAILY PO 05/06/17 09:00 06/05/17 08:59 05/08/17 09:16 1,000 INTER.UNIT Fexofenadine HCl (Danielle Tab) 180 mg HS PO 05/05/17 21:00 06/04/17 20:59 05/07/17 21:12 180 MG Fluticasone Propionate (Flovent Hfa 110MCG Inhaler) 2 puffs AMHS INH 05/05/17 21:00 06/04/17 20:59 05/08/17 09:14 2 PUFFS Guaifenesin (Mucinex Contr Rel Tab) 600 mg Q12 PO 05/05/17 21:00 06/04/17 20:59 05/08/17 09:15 600 MG Ibuprofen (Motrin Tab) 600 mg TID PRN PO 05/05/17 11:00 06/04/17 10:59 05/06/17 08:52 600 MG Levothyroxine Sodium (Synthroid Tab) 150 mcg DAILYBB PO 05/06/17 06:00 06/05/17 05:59 05/08/17 05:52 150 MCG Montelukast Sodium (Singulair Tab) 10 mg HS PO 05/05/17 21:00 06/04/17 20:59 05/07/17 21:11 10 MG Multivitamins/ Minerals (Multivitamin W/ Minerals Tab) 1 tab QAM PO 05/06/17 09:00 06/05/17 08:59 05/08/17 09:16 1 TAB Promethazine HCl (Phenergan Tab) 12.5 mg Q8 PRN PO 05/05/17 11:00 06/04/17 10:59 Salmeterol Xinafoate (Serevent Diskus Inh) 1 puffs DAILY INH 05/06/17 09:00 06/05/17 08:59 05/08/17 09:14 1 PUFFS Zinc Sulfate (Zinc Sulfate Cap) 220 mg AMHS PO 05/05/17 21:00 06/04/17 20:59 05/08/17 09:16 220 MG Calcium/Vitamin D (Caltrate Plus Tab) 1 tab TID PO 05/05/17 14:00 06/04/17 13:59 05/08/17 09:15 1 TAB Pantoprazole Sodium (Protonix Tab) 40 mg QAM PO 05/06/17 09:00 06/05/17 08:59 05/08/17 09:16 40 MG Miscellaneous Information (Order Awaiting Action) 1 ea QS N/A 05/05/17 16:00 06/04/17 15:59 Albuterol/ Ipratropium (Duoneb) 3 ml QIDR INH 05/05/17 12:00 06/04/17 11:59 05/08/17 07:10 3 ML Miscellaneous Information (Consult Glycemic Management Pharmacy) 1 ea UD PRN N/A 05/05/17 11:23 06/04/17 11:22 Piperacillin Sod/ Tazobactam Sod 3.375 gm/Dextrose 115 ml @ 28.75 mls/ hr Q8H IV 05/05/17 16:00 05/12/17 15:59 05/08/17 09:13 28.75 MLS/HR Miscellaneous Information (Consult) 1 ea UD PRN N/A 05/05/17 11:30 06/04/17 11:29 Miscellaneous Information (Consult) 1 ea UD PRN N/A 05/05/17 11:30 06/04/17 11:29 Albuterol/ Ipratropium (Duoneb) 3 ml Q2H PRN INH 05/05/17 13:00 06/04/17 12:59 05/06/17 02:35 3 ML Glucose (Glucose 40% Gel) 15-30 GRAMS 15 GRAMS... UD PRN PO 05/06/17 00:30 06/05/17 00:29 Glucose (Glucose Chew Tab) 4-8 Tablets 4 Tabl... UD PRN PO 05/06/17 00:30 06/05/17 00:29 Dextrose (Dextrose 50% 50ML Syringe) 25-50ML OF 50% DW IV FOR... UD PRN IV 05/06/17 00:30 06/05/17 00:29 05/07/17 23:11 50 ML Glucagon (Glucagon Inj) 1 mg UD PRN SQ 05/06/17 00:30 06/05/17 00:29 Insulin Human Regular 250 units/ Sodium Chloride 252.5 ml @ 0 mls/hr Q24H IV 05/07/17 10:00 06/06/17 09:59 05/07/17 21:38 4.8 MLS/HR Insulin Aspart (novoLOG ASPART) SLIDING SCALE PCHS SC 05/07/17 12:00 06/06/17 11:59 05/07/17 13:49 5 UNITS Potassium Chloride/Sodium Chloride 1,000 ml @ 15 mls/hr Q24H IV 05/07/17 10:00 06/06/17 09:59 05/08/17 10:04 15 MLS/HR Vancomycin HCl 1000 mg/Sodium Chloride 270 ml @ 125 mls/hr Q12H IV 05/08/17 06:00 05/12/17 13:00 05/08/17 05:51 125 MLS/HR Vital Signs: Date Time Temp Pulse Resp B/P (MAP) Pulse Ox O2 Delivery O2 Flow Rate FiO2 05/08/17 10:43 37.9 79 20 112/58 (76) 92 Trach Collar 05/08/17 08:00 97 Trach Collar 4.0 40 05/08/17 07:48 37.1 90 22 92/66 (75) 92 Room Air 05/08/17 07:10 72 20 94 Trach Collar 12.0 40 05/08/17 04:00 91 Trach Collar 40 05/08/17 03:39 36.7 79 16 123/69 (87) 91 Trach Collar 05/08/17 00:00 Trach Collar 40 05/07/17 23:42 37.4 72 16 112/66 (81) 96 Trach Collar 05/07/17 20:20 37.1 74 23 116/62 (80) 95 Trach Collar 05/07/17 20:00 Trach Collar 40 05/07/17 19:33 70 18 94 Trach Collar 12.0 40 05/07/17 16:00 Trach Collar 40 05/07/17 15:43 38.5 68 22 130/74 (92) 94 Trach Collar 05/07/17 15:38 70 18 92 Trach Collar 12.0 40 05/07/17 12:09 37.9 05/07/17 12:00 97 Trach Collar 4.0 50 05/07/17 11:21 62 18 96 Trach Collar 12.0 40 05/07/17 11:15 38.0 63 20 127/73 (91) 90 Trach Collar Laboratory Results: Last 24 Hours Test 05/07/17 12:03 05/07/17 13:12 05/07/17 14:01 05/07/17 16:29 Bedside Glucose 252 mg/dl 350 mg/dl 379 mg/dl White Blood Count 10.98 K/uL Red Blood Count 2.95 M/uL Hemoglobin 9.9 g/dL Hematocrit 30.1 % Mean Corpuscular Volume 102.0 fL Mean Corpuscular Hemoglobin 33.6 pg Mean Corpuscular Hemoglobin Concent 32.9 g/dl Platelet Count 176 K/uL Mean Platelet Volume 10.6 fL Neutrophils (%) (Auto) 78.1 % Lymphocytes (%) (Auto) 13.4 % Monocytes (%) (Auto) 6.8 % Eosinophils (%) (Auto) 0.3 % Basophils (%) (Auto) 0.3 % Neutrophils # (Auto) 8.58 K/uL Lymphocytes # (Auto) 1.47 K/uL Monocytes # (Auto) 0.75 K/uL Eosinophils # (Auto) 0.03 K/uL Basophils # (Auto) 0.03 K/uL RDW Standard Deviation 53.9 fL RDW Coefficient of Variation 14.3 % Immature Granulocyte % (Auto) 1.1 % Immature Granulocyte # (Auto) 0.12 K/uL Test 05/07/17 17:27 05/07/17 18:32 05/07/17 19:18 05/07/17 19:24 Bedside Glucose 397 mg/dl 419 mg/dl 348 mg/dl Vancomycin Level Trough 8.6 mcg/ml Test 05/07/17 20:25 05/07/17 21:33 05/07/17 23:02 05/07/17 23:04 Bedside Glucose 271 mg/dl 141 mg/dl 48 mg/dl 49 mg/dl Test 05/07/17 23:29 05/08/17 00:27 05/08/17 00:45 05/08/17 01:03 Bedside Glucose 132 mg/dl 77 mg/dl 78 mg/dl 88 mg/dl Test 05/08/17 01:18 05/08/17 02:16 05/08/17 02:34 05/08/17 03:32 Bedside Glucose 173 mg/dl 104 mg/dl 101 mg/dl 138 mg/dl Test 05/08/17 04:11 05/08/17 04:30 05/08/17 04:42 05/08/17 05:29 White Blood Count 11.90 K/uL Red Blood Count 3.07 M/uL Hemoglobin 10.2 g/dL Hematocrit 31.5 % Mean Corpuscular Volume 102.6 fL Mean Corpuscular Hemoglobin 33.2 pg Mean Corpuscular Hemoglobin Concent 32.4 g/dl RDW Standard Deviation 53.2 fL RDW Coefficient of Variation 14.2 % Platelet Count 187 K/uL Mean Platelet Volume 10.4 fL Sodium Level 142 mmol/L Potassium Level 3.8 mmol/L Chloride Level 107 mmol/L Carbon Dioxide Level 27 mmol/L Anion Gap 8.0 mmol/L Blood Urea Nitrogen 10 mg/dl Creatinine 0.81 mg/dl Est Creatinine Clear Calc Drug Dose 65.1 ml/min Estimated GFR () 96.8 Estimated GFR (Non- 83.5 BUN/Creatinine Ratio 11.8 Random Glucose 210 mg/dl Calcium Level 8.1 mg/dl Urine Color YELLOW Urine Appearance CLEAR Urine pH 5.0 Urine Specific [place] 1.027 Urine Protein NEG Urine Glucose (UA) 2+ Urine Ketones TRACE Urine Occult Blood NEG Urine Nitrite NEG Urine Bilirubin NEG Urine Urobilinogen NEG Urine Leukocyte Esterase TRACE Urine WBC (Auto) 10-30 /hpf Urine RBC (Auto) 0-4 /hpf Urine Hyaline Casts (Auto) 1-5 /lpf Urine Epithelial Cells (Auto) >30 /lpf Urine Bacteria (Auto) NEG Urine Yeast (Auto) Bedside Glucose 219 mg/dl 245 mg/dl Test 05/08/17 06:36 05/08/17 07:36 05/08/17 08:20 05/08/17 09:38 Bedside Glucose 299 mg/dl 274 mg/dl 289 mg/dl 434 mg/dl
--- NOTE | 2017-05-08 12:24 | Pharmacy Progress Note ---
Glycemic Control Progress Note Date of Service May 08, 2017. Scope Glycemic Pharmacist consulted for glycemic control to write orders per [facility] inpatient glycemic control protocol. Objective Accuchecks BSG (last 24hrs): Test 05/07/17 13:12 05/07/17 14:01 05/07/17 17:27 05/07/17 18:32 Bedside Glucose 350 mg/dl (70-90) 379 mg/dl (70-90) 397 mg/dl (70-90) 419 mg/dl (70-90) Test 05/07/17 19:24 05/07/17 20:25 05/07/17 21:33 05/07/17 23:02 Bedside Glucose 348 mg/dl (70-90) 271 mg/dl (70-90) 141 mg/dl (70-90) 48 mg/dl (70-90) Test 05/07/17 23:04 05/07/17 23:29 05/08/17 00:27 05/08/17 00:45 Bedside Glucose 49 mg/dl (70-90) 132 mg/dl (70-90) 77 mg/dl (70-90) 78 mg/dl (70-90) Test 05/08/17 01:03 05/08/17 01:18 05/08/17 02:16 05/08/17 02:34 Bedside Glucose 88 mg/dl (70-90) 173 mg/dl (70-90) 104 mg/dl (70-90) 101 mg/dl (70-90) Test 05/08/17 03:32 05/08/17 04:11 05/08/17 04:42 05/08/17 05:29 Bedside Glucose 138 mg/dl (70-90) 219 mg/dl (70-90) 245 mg/dl (70-90) Random Glucose 210 mg/dl (70-99) Test 05/08/17 06:36 05/08/17 07:36 05/08/17 08:20 05/08/17 09:38 Bedside Glucose 299 mg/dl (70-90) 274 mg/dl (70-90) 289 mg/dl (70-90) 434 mg/dl (70-90) HbA1c: 10.6% 02/26/17 Recent Pertinent Medications The patient is currently receiving: * IV insulin infusion per protocol; goal range 130-200mg/dL * Prandial insulin: Per carb ratio of 1 unit per 8 grams CHO consumed Outpatient Anti-Diabetic Meds Novolog pump (settings from recent admissions) * Basal total 9.6 units/day * CF 65,70 * CR 15 * Goal 100-140 and 100-150 Assessment & Plan ASSESSMENT: 05/08/17 * 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 * She is known to have poor control with SQ basal/bolus regimens and tends to have best control with the use of her pump when managed by her caregivers * The insulin drip intuitively would seem to be the best substitute for her pump as this can be managed w/ our nursing staff. * The current problem with our insulin protocol is that the doses of IV insulin may actually be titrated upwards too rapidly based upon BSGs obtained while she is eating or shortly afterwards. Will trial using the insulin infusion adjustment calculator up to a maximum insulin infusion rate of 3units/hour which should not be exceeded as this is more than 3 x her home basal insulin requirement. For BSG elevations a single bolus of IV insulin may be reasonable to administer to facilitate more rapid decline in BSGs rather than rate increases. PLAN FOR INPATIENT GLYCEMIC CONTROL: * Continue IV insulin infusion protocol * Goal Range 130 - 200 mg/dl * Adjust infusion rates up and down per adjustment calculator however do not increase the rate above 3units/hour max * If BSG > 350 at max rate, call pharmacy for IV insulin bolus 5 units * Continuing carb ratio of 1 unit per 8 grams CHO consumed for time being * Consider adding dextrose to her maintenance IVF's to help reduce BSG variability * If the above plan is unable to provide adequate control, we may need to look into our options for use of her own insulin pump for at least delivery of basal insulin * Please note that the plan above was derived based on current level of insulin resistance and hospital stress. These recommendations are appropriate for inpatient admission only. Plan of care upon discharge will need to be reassessed to avoid potential outpatient hypo/hyperglycemia. Thank you.
[2017-05-08] MEDS: INSULIN REGULAR 250 UNITS in SODIUM CHLORIDE 0.9% 250ML 250 ML IV SCH ×2 (17:30→19:55)
--- NOTE | 2017-05-08 19:37 | Progress Note ---
Subjective Date of Service: May 08, 2017. Subjective Pt evaluation today including: physical exam, chart review, lab review, review of inpatient medication list Pain: left face/jaw PO Intake: fair/good per staff Voiding: incontinence tele stable overnight watching cartoons during my visit ROS quite limited due to Down's syndrome but she offered no significant complaints Problem List Medical Problems: (1) Elevated troponin Status: Acute (2) Leukocytosis Status: Acute (3) Pneumonia Status: Acute (4) Sepsis with organ dysfunction Status: Acute Objective Vital Signs Date Time Temp Pulse Resp B/P (MAP) Pulse Ox O2 Delivery O2 Flow Rate FiO2 05/08/17 16:00 Nasal Cannula 2.0 05/08/17 15:38 36.5 77 16 116/53 (74) 100 Nasal Cannula 2.0 05/08/17 15:34 78 20 100 Nasal Cannula 3.0 05/08/17 12:00 Trach Collar 40 05/08/17 11:21 79 20 93 Trach Collar 12.0 05/08/17 10:43 37.9 79 20 112/58 (76) 92 Trach Collar 05/08/17 08:00 97 Trach Collar 4.0 40 05/08/17 07:48 37.1 90 22 92/66 (75) 92 Room Air 05/08/17 07:10 72 20 94 Trach Collar 12.0 40 05/08/17 04:00 91 Trach Collar 40 05/08/17 03:39 36.7 79 16 123/69 (87) 91 Trach Collar 05/08/17 00:00 Trach Collar 40 05/07/17 23:42 37.4 72 16 112/66 (81) 96 Trach Collar 05/07/17 20:20 37.1 74 23 116/62 (80) 95 Trach Collar 05/07/17 20:00 Trach Collar 40 05/07/17 19:33 70 18 94 Trach Collar 12.0 40 Physical Exam General Appearance: no apparent distress, + pertinent finding (dysmorphic features/Down's features) ENT: + pertinent finding (dental cavity, left mandibular molar) Neck: no JVD, + pertinent finding (metal tracheostomy in place) Respiratory/Chest: no respiratory distress, no accessory muscle use, + decreased breath sounds (right base), + crackles (right base) Cardiovascular: regular rate, rhythm, no gallop, + systolic murmur (2/6 LSB) Abdomen: normal bowel sounds, non tender, soft, no organomegaly Extremities: no pedal edema Neurologic/Psychiatric: alert Laboratory Results Last 24 Hours Test 05/07/17 20:25 05/07/17 21:33 05/07/17 23:02 05/07/17 23:04 Bedside Glucose 271 mg/dl 141 mg/dl 48 mg/dl 49 mg/dl Test 05/07/17 23:29 05/08/17 00:27 05/08/17 00:45 05/08/17 01:03 Bedside Glucose 132 mg/dl 77 mg/dl 78 mg/dl 88 mg/dl Test 05/08/17 01:18 05/08/17 02:16 05/08/17 02:34 05/08/17 03:32 Bedside Glucose 173 mg/dl 104 mg/dl 101 mg/dl 138 mg/dl Test 05/08/17 04:11 05/08/17 04:30 05/08/17 04:42 05/08/17 05:29 White Blood Count 11.90 K/uL Red Blood Count 3.07 M/uL Hemoglobin 10.2 g/dL Hematocrit 31.5 % Mean Corpuscular Volume 102.6 fL Mean Corpuscular Hemoglobin 33.2 pg Mean Corpuscular Hemoglobin Concent 32.4 g/dl RDW Standard Deviation 53.2 fL RDW Coefficient of Variation 14.2 % Platelet Count 187 K/uL Mean Platelet Volume 10.4 fL Sodium Level 142 mmol/L Potassium Level 3.8 mmol/L Chloride Level 107 mmol/L Carbon Dioxide Level 27 mmol/L Anion Gap 8.0 mmol/L Blood Urea Nitrogen 10 mg/dl Creatinine 0.81 mg/dl Est Creatinine Clear Calc Drug Dose 65.1 ml/min Estimated GFR () 96.8 Estimated GFR (Non- 83.5 BUN/Creatinine Ratio 11.8 Random Glucose 210 mg/dl Calcium Level 8.1 mg/dl Urine Color YELLOW Urine Appearance CLEAR Urine pH 5.0 Urine Specific [place] 1.027 Urine Protein NEG Urine Glucose (UA) 2+ Urine Ketones TRACE Urine Occult Blood NEG Urine Nitrite NEG Urine Bilirubin NEG Urine Urobilinogen NEG Urine Leukocyte Esterase TRACE Urine WBC (Auto) 10-30 /hpf Urine RBC (Auto) 0-4 /hpf Urine Hyaline Casts (Auto) 1-5 /lpf Urine Epithelial Cells (Auto) >30 /lpf Urine Bacteria (Auto) NEG Urine Yeast (Auto) Bedside Glucose 219 mg/dl 245 mg/dl Test 05/08/17 06:36 05/08/17 07:36 05/08/17 08:20 05/08/17 09:38 Bedside Glucose 299 mg/dl 274 mg/dl 289 mg/dl 434 mg/dl Test 05/08/17 10:31 05/08/17 11:39 05/08/17 12:32 05/08/17 13:45 Bedside Glucose 457 mg/dl 354 mg/dl 282 mg/dl 339 mg/dl Test 05/08/17 14:33 05/08/17 14:35 05/08/17 14:38 05/08/17 15:30 Bedside Glucose 419 mg/dl 354 mg/dl 380 mg/dl 338 mg/dl Test 05/08/17 16:32 05/08/17 17:31 05/08/17 18:41 Bedside Glucose 378 mg/dl 297 mg/dl 348 mg/dl Assessment and Plan 51yo female with: 1. RLL pneumonia - likely aspiration - growing staph from bronch culture. Continue current IV antibiotic regimen. Continue aspiration precautions. Continue aggressive pulmonary toilet. Patient wears chronic O2 via trach outside the hospital. 2. chronic hypoxic respiratory failure 2nd to pulmonary HTN, tracheal stenosis , and chronic cor pulmonale - stable O2 sats no supplemental O2. 3. dysphagia with silent aspiration - nectar thick liquids recommended by speech. 4. T1DM - uncontrolled in the face of #1. Appreciate pharmacy glycemic consultation. 5. hypothyroidism - TSH compensated; cont synthroid. 6. DVT proph - lovenox. 7. dental elana with probable dental abscess - antibiotics for #1 above likely will suffice. Dentist referral after discharge. 8. tracheal stenosis s/p tracheostomy 9. pulmonary HTN / chronic cor pulmonale - 2nd to congenital heart disease? prior untreated CAMILLA? other? 10. FEN - thickened liquids per speech; diet as tolerated; lytes table. Continued [facility] stay due to: multiple IV medications needed Discharge planning: other (special needs home )
[2017-05-08] MEDS ORDERED: INSULIN HUMAN REGULAR IV BOLUS 5 UNIT in SYRINGE 0 ML IV SCH (20:15)
[2017-05-08] MEDS: MONTELUKAST SOD 10 MG TAB PO SCH (20:58)
[2017-05-08] MEDS: FEXOFENADINE HCL 180 MG TAB PO SCH (20:58)
[2017-05-08] MEDS: ATORVASTATIN 10 MG TAB PO SCH (20:58)
[2017-05-08] MEDS: POLYETHYLENE (MIRALAX) 17 GM PACK PO SCH (20:59)
[2017-05-08] MEDS: ENOXAPARIN 40 MG/0.4 ML SYR SC SCH (20:59)
[2017-05-09] VITALS (14 sets, daily range): BP systolic 100–119; BP diastolic 50–75; PULSE 69–85; TEMP 36.6–37.5; O2SAT 90–99
[2017-05-09] MEDS ORDERED: INSULIN HUMAN REGULAR IV BOLUS 4 UNIT in SYRINGE 0 ML IV ONE
[2017-05-09] MEDS: PIPERACILL/TAZOBAC IV 3.375 GM in DEXTROSE 5% 100ML 100 ML IV SCH ×3 (00:11→15:22)
[2017-05-09] MEDS: DEXTROSE 50% 50 ML SYR IV PRN (03:07)
[2017-05-09] MEDS ORDERED: VANCOMYCIN TROUGH SCH (05:30)
[2017-05-09 05:47] LABS: HEMOGLOBIN 9.6 g/dL (12.0-16.0); MEAN CELL VOLUME 101.8 fL (80-100); MEAN CORPUSCULAR HEMOGLOBIN 33.7 pg (25-34); MEAN CORPUSCULAR HGB CONC 33.1 g/dl (32-36); PLATELET COUNT 164 K/uL (130-400); RED CELL DISTRIBUTION WIDTH SD 52.8 fL (36.4-46.3); WHITE BLOOD COUNT 9.31 K/uL (4.8-10.8)
[2017-05-09] MEDS: VANCOMYCIN INJ 1,000 MG in SODIUM CHLORIDE 0.9% 250ML 250 ML IV SCH (06:33)
[2017-05-09] MEDS: LEVOTHYROXINE 150 MCG TAB PO SCH (06:34)
[2017-05-09 06:43] LABS: CALCIUM 8.2 mg/dl (8.5-10.1); CREATININE 1.65 mg/dl (0.60-1.20); POTASSIUM 4.5 mmol/L (3.5-5.1)
[2017-05-09] MEDS: ALBUT/IPRATROP 3MG/0.5MG NEB 3 ML VIAL INH SCH ×4 (07:13→19:31)
[2017-05-09] MEDS: FLUTICASONE HFA 110MCG INHALER INH SCH ×2 (08:45→22:42)
[2017-05-09] MEDS: SALMETEROL XINAFOATE 50MCG 28 BLISTER INH INH SCH (08:45)
[2017-05-09] MEDS: ZINC SULFATE 220 MG CAP PO SCH ×2 (08:57→22:42)
[2017-05-09] MEDS: PANTOprazole SOD 40 MG TAB PO SCH (08:57)
[2017-05-09] MEDS: CEROVITE ADV FORMULA TAB PO SCH (08:57)
[2017-05-09] MEDS: CHOLECALCIFEROL 1000 INTER.UNIT TAB PO SCH (08:57)
[2017-05-09] MEDS: POLYETHYLENE (MIRALAX) 17 GM PACK PO SCH ×2 (08:57→22:42)
[2017-05-09] MEDS: GUAIFENESIN 600 MG TABCR PO SCH ×2 (08:58→22:42)
[2017-05-09] MEDS: CALCIUM 600MG + VIT D 400 IU TAB PO SCH ×3 (08:58→22:42)
[2017-05-09] MEDS: CITALOPRAM 40 MG TAB PO SCH (08:58)
[2017-05-09] MEDS: SODIUM CHLORIDE 0.9% 1000ML 1,000 ML IV SCH ×2 (09:11→22:43)
[2017-05-09] MEDS: INSULIN ASPART 100 UNITS/ML 3 ML PEN SC SCH ×4 (10:20→23:13)
[2017-05-09] MEDS: INSULIN REGULAR 250 UNITS in SODIUM CHLORIDE 0.9% 250ML 250 ML IV SCH (11:49)
--- NOTE | 2017-05-09 11:54 | Pharmacy Progress Note ---
Pharmacy Abx Dose Short Note Date of Service May 09, 2017. Assessment & Plan Pharmacy has been consulted for: * Glycemic control * Vancomycin IV * Zosyn IV Assessment/Plan Glycemic control: * BSGs poorly controlled yesterday despite insulin drip and prandial SQ Novolog with meals * Most BSGs were in the 300-400's range despite receiving much higher insulin doses than what she requires as outpt * No ketoacidosis noted on today's labs; however SOM present * BSGs did dip down to 80's overnight like due to relatively high insulin infusion rates combined with two IV insulin boluses given near bedtime last night * Today however her BSGs are much better controlled, BSGs in the 180's-200's range on a lower insulin infusion dose * Plan: * Continue the IV insulin infusion per protocol with a goal range of 130-200 * Adjust infusion per rate adjustment calculator however do not exceed a maximum infusion rate of 4 units per hour * Continue to cover Carb consumed with a carb ratio of 1 unit per 8 grams CHO * If BSG's persistently > 300, call pharmacy for IV insulin bolus (would limit max bolus to 5 units IV) * I had entertained the possibility of restarting the patient insulin pump for basal needs only however nursing staff would require special training for pump site care and starting/stopping the pump. Will continue with insulin drip and SQ Novolog w/ meals for now. Vancomycin * Trough level of 28.7 mcg/mL supratherapeutic; level was drawn at the appropriate time; last evening's vancomycin dose was hung ~1.5 hours late however I do not feel that this would fully explain the elevated result. * SOM noted on today's labs. SCr 0.81 -->1.65. IV hydration started today. RN 's stated pt does not urinate much however she also consumes very little fluids during the day. * Vancomycin was hung on schedule this AM however dose was taken down when trough results. I estimate she only received ~260mg this AM. * Given changing renal fxn, will not order a new maintenance dose. Rather will order a random level this PM ~24 hours after her last full dose of vancomycin given. * Will redose vancomycin when level 15-20mcg/mL for pulm infxn * Pt was + MRSA nasal swab Zosyn * eCrCl likely still > 20cc/min therefore cont 3.375gm ext infusion Q 8 hours Pharmacy will continue to follow and will adjust dose/frequency as necessary. Thank you.
[2017-05-09] MEDS ORDERED: INSULIN HUMAN REGULAR PER UNIT 4 UNITS in SYRINGE 3.96 ML IV SCH ×2 (13:30→19:53)
[2017-05-09 16:32] LABS: CALCIUM 7.9 mg/dl (8.5-10.1)
[2017-05-09 16:49] LABS: CREATININE 1.76 mg/dl (0.60-1.20)
[2017-05-09] MEDS: FEXOFENADINE HCL 180 MG TAB PO SCH (22:42)
[2017-05-09] MEDS: ATORVASTATIN 10 MG TAB PO SCH (22:42)
[2017-05-09] MEDS: MONTELUKAST SOD 10 MG TAB PO SCH (22:42)
[2017-05-09] MEDS: ENOXAPARIN 30 MG/0.3 ML SYR SC SCH (22:43)
[2017-05-09] MEDS ORDERED: VANCOMYCIN INJ 1,000 MG in SODIUM CHLORIDE 0.9% 250ML 250 ML IV SCH (23:30)
[2017-05-09] MEDS ORDERED: ALTEPLASE, RECOMBINANT 1 MG/ML 2 ML VIAL IV ONE (23:30)
[2017-05-10] VITALS (10 sets, daily range): BP systolic 110–134; BP diastolic 59–77; PULSE 61–72; TEMP 36.7–37.2; O2SAT 76–99
[2017-05-10] MEDS: PIPERACILL/TAZOBAC IV 3.375 GM in DEXTROSE 5% 100ML 100 ML IV SCH (02:06)
[2017-05-10] MEDS: LEVOTHYROXINE 150 MCG TAB PO SCH (05:54)
--- NOTE | 2017-05-10 06:07 | Progress Note ---
Subjective Date of Service: late entry for visit on May 09, 2017. Subjective Pt evaluation today including: conversation w/ family (mother, sister at bedside), physical exam, chart review, lab review, conversation w/ bi consultant ( pulmonary - Isra Mandujano, Dr. Ozuna), review of inpatient medication list Pain: none PO Intake: eating well Voiding: incontinence tele stable overnight inner cannula of metal trach came out several times during the visit lengthy discussion held with mother/sister during the visit - we discussed a PEG tube in light of her recurrent aspiration pneumonia at this time we will continue thickened liquids rather than pursuing PEG her mother stated "Valorie just loves to eat" and eating brings abner to Valorie POL discussion also held briefly unable to obtain ROS due to patient's mental status Problem List Medical Problems: (1) Elevated troponin Status: Acute (2) Leukocytosis Status: Acute (3) Pneumonia Status: Acute (4) Sepsis with organ dysfunction Status: Acute Objective Vital Signs Date Time Temp Pulse Resp B/P (MAP) Pulse Ox O2 Delivery O2 Flow Rate FiO2 05/10/17 04:40 37.0 69 24 110/59 (76) 97 Nasal Cannula 3.0 05/10/17 04:00 Nasal Cannula 3.0 05/10/17 01:00 Nasal Cannula 3.0 05/09/17 23:49 37.3 69 18 110/62 (78) 98 Nasal Cannula 3.0 05/09/17 21:03 37.1 72 20 115/65 (82) 96 Room Air 05/09/17 20:10 97 Nasal Cannula 3.0 05/09/17 19:39 77 18 95 Nasal Cannula 3.0 05/09/17 16:00 36.9 74 16 100/50 (67) 98 Nasal Cannula 3.0 05/09/17 16:00 Nasal Cannula 3.0 05/09/17 14:38 73 16 97 Nasal Cannula 2.0 05/09/17 12:17 Trach Collar 05/09/17 12:00 Nasal Cannula 3.0 05/09/17 11:58 36.6 74 22 101/56 (71) 95 Trach Collar 10.0 05/09/17 11:10 72 16 99 Nasal Cannula 2.0 05/09/17 08:02 37.2 70 28 101/70 (80) 90 Trach Collar 10.0 05/09/17 08:00 97 Trach Collar 4.0 50 05/09/17 07:45 37.5 72 22 119/75 (90) Trach Collar 10.0 05/09/17 07:13 69 16 90 Trach Collar 12.0 30 Physical Exam General Appearance: no apparent distress, + pertinent finding (Down's syndrome features) ENT: pharynx normal (no thrush) Neck: no JVD, + pertinent finding (trach present) Respiratory/Chest: no respiratory distress, no accessory muscle use, + decreased breath sounds (both bases, worse on right) Cardiovascular: regular rate, rhythm, no gallop, + systolic murmur (2/6 LSB) Abdomen: normal bowel sounds, non tender, soft, no organomegaly Extremities: no pedal edema Neurologic/Psychiatric: alert Laboratory Results Last 24 Hours Test 05/09/17 06:23 05/09/17 07:29 05/09/17 08:29 05/09/17 09:34 Bedside Glucose 210 mg/dl 279 mg/dl 182 mg/dl 186 mg/dl Test 05/09/17 10:24 05/09/17 10:52 05/09/17 11:35 05/09/17 13:08 Bedside Glucose 241 mg/dl 275 mg/dl 317 mg/dl 360 mg/dl Test 05/09/17 14:41 05/09/17 15:35 05/09/17 16:06 05/09/17 16:26 Bedside Glucose 266 mg/dl 380 mg/dl 271 mg/dl Sodium Level 140 mmol/L Potassium Level 4.0 mmol/L Chloride Level 107 mmol/L Carbon Dioxide Level 25 mmol/L Anion Gap 8.0 mmol/L Blood Urea Nitrogen 20 mg/dl Creatinine 1.76 mg/dl Est Creatinine Clear Calc Drug Dose 30.0 ml/min Estimated GFR () 37.9 Estimated GFR (Non- 32.7 BUN/Creatinine Ratio 11.3 Random Glucose 273 mg/dl Calcium Level 7.9 mg/dl Test 05/09/17 17:27 05/09/17 18:32 05/09/17 19:32 05/09/17 20:55 Bedside Glucose 267 mg/dl 323 mg/dl 355 mg/dl Random Vancomycin Level 19.5 mcg/ml Test 05/09/17 20:57 05/09/17 22:25 05/09/17 23:48 05/10/17 01:01 Bedside Glucose 219 mg/dl 196 mg/dl 181 mg/dl 155 mg/dl Test 05/10/17 01:57 05/10/17 02:59 05/10/17 04:11 05/10/17 04:44 Bedside Glucose 140 mg/dl 95 mg/dl 115 mg/dl Test 05/10/17 04:47 Bedside Glucose 172 mg/dl Assessment and Plan 51yo female with: 1. RLL pneumonia - likely aspiration - 2nd to MRSA per bronch culture. d/c zosyn d/c vancomycin change to zyvox 600mg BID - would plan for 10-14 day course of abx for the MRSA today is day # 5 of abx Continue aspiration precautions. Continue aggressive pulmonary toilet. Patient wears chronic O2 . 2. chronic hypoxic respiratory failure 2nd to pulmonary HTN, tracheal stenosis , and chronic cor pulmonale - stable O2 sats at this time. 3. dysphagia with silent aspiration - nectar thick liquids recommended by speech. See HPI for details re: my conversation with her mother today. No PEG at this time. 4. T1DM - uncontrolled but improving on insulin infusion. Appreciate pharmacy glycemic consultation. 5. hypothyroidism - TSH compensated; cont synthroid. 6. DVT proph - lovenox 30mg daily. 7. dental elana with probable dental abscess - antibiotics for #1 above likely will suffice. Dentist referral after discharge. 8. tracheal stenosis s/p tracheostomy 9. pulmonary HTN / chronic cor pulmonale - 2nd to congenital heart disease? prior untreated CAMILLA? other? 10. FEN - thickened liquids per speech; diet as tolerated; lytes table. 11. acute kidney injury - sepsis-associated? due to vanco? other? repeat cr this afternoon slightly worse at 1.7 cont IVF; repeat creatinine in am about 30 min spent speaking with Valorie's mother/sister today another 10 min spent speaking with pulmonary total time 40 min today Continued [facility] stay due to: multiple IV medications needed, other (acute kidney injury) Discharge planning: other (special needs home )
[2017-05-10 06:46] LABS: HEMATOCRIT 29.1 % (37-47); HEMOGLOBIN 9.3 g/dL (12.0-16.0); MEAN CELL VOLUME 102.5 fL (80-100); MEAN CORPUSCULAR HEMOGLOBIN 32.7 pg (25-34); MEAN PLATELET VOLUME 10.8 fL (7.4-10.4); PLATELET COUNT 195 K/uL (130-400); RED CELL DISTRIBUTION WIDTH CV 14.5 % (11.5-14.5); RED CELL DISTRIBUTION WIDTH SD 54.2 fL (36.4-46.3)
[2017-05-10 07:13] LABS: CALCIUM 7.9 mg/dl (8.5-10.1); CREATININE 1.64 mg/dl (0.60-1.20); POTASSIUM 3.9 mmol/L (3.5-5.1)
[2017-05-10] MEDS: ALBUT/IPRATROP 3MG/0.5MG NEB 3 ML VIAL INH SCH ×4 (07:16→20:01)
[2017-05-10] MEDS: POLYETHYLENE (MIRALAX) 17 GM PACK PO SCH ×2 (09:03→20:00)
[2017-05-10] MEDS: ZINC SULFATE 220 MG CAP PO SCH ×2 (09:04→19:59)
[2017-05-10] MEDS: GUAIFENESIN 600 MG TABCR PO SCH ×2 (09:04→20:00)
[2017-05-10] MEDS: LINEZOLID 600 MG TAB PO SCH ×2 (09:04→19:58)
[2017-05-10] MEDS: FLUTICASONE HFA 110MCG INHALER INH SCH ×2 (09:04→19:58)
[2017-05-10] MEDS: CITALOPRAM 40 MG TAB PO SCH (09:05)
[2017-05-10] MEDS: PANTOprazole SOD 40 MG TAB PO SCH (09:05)
[2017-05-10] MEDS: SALMETEROL XINAFOATE 50MCG 28 BLISTER INH INH SCH (09:05)
[2017-05-10] MEDS: CALCIUM 600MG + VIT D 400 IU TAB PO SCH ×3 (09:05→19:59)
[2017-05-10] MEDS: CHOLECALCIFEROL 1000 INTER.UNIT TAB PO SCH (09:05)
[2017-05-10] MEDS: CEROVITE ADV FORMULA TAB PO SCH (09:05)
[2017-05-10] MEDS: INSULIN ASPART 100 UNITS/ML 3 ML PEN SC SCH ×4 (09:46→21:00)
[2017-05-10] MEDS: SODIUM CHLORIDE 0.9% 1000ML 1,000 ML IV SCH (11:23)
[2017-05-10] MEDS: INSULIN REGULAR 250 UNITS in SODIUM CHLORIDE 0.9% 250ML 250 ML IV SCH (11:27)
--- NOTE | 2017-05-10 12:29 | Pulmonology Progress Note ---
Pulmonary Progress Note Date of Service May 10, 2017. Attending Dr. Ozuna Subjective Patient is able to sit up and bed showing no signs of respiratory insufficiency and no active coughing while she was eating her breakfast. Objective Patient doing well showing no signs of accessory muscle use or respiratory insufficiency. She did have a cough which produced green phlegm coming from her tracheostomy. I did remove the inner cannula and clean it out. VS: SaO2: 76-97% FiO2: 3L trach mask Resp: Minimal wheezing appreciated CARD: S1 S2, RRR ABD: + BS, soft non-tender no rebound Tracheostomy: Antonio-Duncan in place no signs of tissue breakdown or active infection at the site. Was notable green phlegm coming from the inner cannula PmHx: recurrent tracheobronchial infections on rotating antibiotics with Bactrim /doxycycline, tracheal stenosis status post tracheostomy March 2018 with previous laser resections, history of MRSA, bibasilar bronchiectasis, tracheal rings/bronchial rings calcification, oxygen dependent, insulin-dependent diabetes, hypothyroidism, reflux disease, trisomy 21 with PFO. She is also had multiple pulmonary infections previously going out Haemophilus, Serratia marcescens, group B Streptococcus, MRSA and E. coli. Assessment & Plan 51-year-old female admitted with acute on chronic respiratory and newly discovered aspiration 1. Chronic Aspiration: Clinical, radiographic, serum, bronchoscopic and video swallow suggest patient has chronic aspiration. Currently the family does not want to move forward with a PEG tube but they are also indecisive on this particular matter. 2. Pneumonia: Most likely combination of chronic MRSA pneumonia possibly even colonization versus aspiration event. Patient currently on linezolid but the patient's MRSA is sensitive to Bactrim. I suggest we switch to Bactrim at this time for a total of a 10 day course. This will not cover anaerobes which could be associated with her chronic aspiration but most aspiration events approximately 90% only chemical pneumonitis is an only 10% associated with infection. The patient will need to be monitored closely with this. #3 Alf Care: This is a difficult case as the patient would most likely benefit from a long-term LTAC but there is no local facility. I suggest at this time the patient be transferred to either her long term or [facility]. I have spoken with family at length informing that this will most likely happen again secondary to the underlying issues noted above. As well as her chronic pulmonary issues. Signoff: The pulmonary team will sign off at this time. I have spoken to the primary care team and asked him to contact us if things change per Data Medications: Current Inpatient Medications Medications (Trade) Dose Ordered Sig/Rene Route Start Time Stop Time Status Last Admin Dose Admin Acetaminophen (Tylenol Tab) 650 mg Q4H PRN PO 05/05/17 11:00 06/04/17 10:59 05/07/17 13:43 650 MG Atorvastatin Calcium (Lipitor Tab) 10 mg HS PO 05/05/17 21:00 06/04/17 20:59 05/09/17 22:42 10 MG Citalopram Hydrobromide (celeXA TAB) 40 mg DAILY PO 05/06/17 09:00 06/05/17 08:59 05/10/17 09:05 40 MG Clotrimazole (Lotrimin 1% Crm) 1 appln TID PRN EXT 05/05/17 11:00 06/04/17 10:59 Cholecalciferol (Vitamin D Tab) 1,000 inter.unit DAILY PO 05/06/17 09:00 06/05/17 08:59 05/10/17 09:05 1,000 INTER.UNIT Fexofenadine HCl (Danielle Tab) 180 mg HS PO 05/05/17 21:00 06/04/17 20:59 05/09/17 22:42 180 MG Fluticasone Propionate (Flovent Hfa 110MCG Inhaler) 2 puffs AMHS INH 05/05/17 21:00 06/04/17 20:59 05/10/17 09:04 2 PUFFS Guaifenesin (Mucinex Contr Rel Tab) 600 mg Q12 PO 05/05/17 21:00 06/04/17 20:59 05/10/17 09:04 600 MG Ibuprofen (Motrin Tab) 600 mg TID PRN PO 05/05/17 11:00 06/04/17 10:59 05/06/17 08:52 600 MG Levothyroxine Sodium (Synthroid Tab) 150 mcg DAILYBB PO 05/06/17 06:00 06/05/17 05:59 05/10/17 05:54 150 MCG Montelukast Sodium (Singulair Tab) 10 mg HS PO 05/05/17 21:00 06/04/17 20:59 05/09/17 22:42 10 MG Multivitamins/ Minerals (Multivitamin W/ Minerals Tab) 1 tab QAM PO 05/06/17 09:00 06/05/17 08:59 05/10/17 09:05 1 TAB Promethazine HCl (Phenergan Tab) 12.5 mg Q8 PRN PO 05/05/17 11:00 06/04/17 10:59 Salmeterol Xinafoate (Serevent Diskus Inh) 1 puffs DAILY INH 05/06/17 09:00 06/05/17 08:59 05/10/17 09:05 1 PUFFS Zinc Sulfate (Zinc Sulfate Cap) 220 mg AMHS PO 05/05/17 21:00 06/04/17 20:59 05/10/17 09:04 220 MG Calcium/Vitamin D (Caltrate Plus Tab) 1 tab TID PO 05/05/17 14:00 06/04/17 13:59 05/10/17 09:05 1 TAB Pantoprazole Sodium (Protonix Tab) 40 mg QAM PO 05/06/17 09:00 06/05/17 08:59 05/10/17 09:05 40 MG Miscellaneous Information (Order Awaiting Action) 1 ea QS N/A 05/05/17 16:00 06/04/17 15:59 05/09/17 08:00 1 EA Albuterol/ Ipratropium (Duoneb) 3 ml QIDR INH 05/05/17 12:00 06/04/17 11:59 05/10/17 11:03 3 ML Miscellaneous Information (Consult Glycemic Management Pharmacy) 1 ea UD PRN N/A 05/05/17 11:23 06/04/17 11:22 Albuterol/ Ipratropium (Duoneb) 3 ml Q2H PRN INH 05/05/17 13:00 06/04/17 12:59 05/06/17 02:35 3 ML Glucose (Glucose 40% Gel) 15-30 GRAMS 15 GRAMS... UD PRN PO 05/06/17 00:30 06/05/17 00:29 Glucose (Glucose Chew Tab) 4-8 Tablets 4 Tabl... UD PRN PO 05/06/17 00:30 06/05/17 00:29 Dextrose (Dextrose 50% 50ML Syringe) 25-50ML OF 50% DW IV FOR... UD PRN IV 05/06/17 00:30 06/05/17 00:29 05/09/17 03:07 25 ML Glucagon (Glucagon Inj) 1 mg UD PRN SQ 05/06/17 00:30 06/05/17 00:29 Insulin Human Regular 250 units/ Sodium Chloride 252.5 ml @ 0 mls/hr Q24H IV 05/07/17 10:00 06/06/17 09:59 05/10/17 11:27 1.7 MLS/HR Insulin Aspart (novoLOG ASPART) SLIDING SCALE PCHS SC 05/07/17 12:00 06/06/17 11:59 05/10/17 09:46 6 UNITS Polyethylene (Miralax Powder Packet) 17 gm BID PO 05/08/17 21:00 06/07/17 20:59 05/10/17 09:03 17 GM Sodium Chloride 1,000 ml @ 75 mls/hr [id number] IV 05/09/17 08:15 06/08/17 08:14 05/10/17 11:23 75 MLS/HR Enoxaparin Sodium (Lovenox Inj) 30 mg Q24H SC 05/09/17 21:00 06/04/17 20:59 05/09/17 22:43 30 MG Linezolid (Zyvox Tab) 600 mg BID PO 05/10/17 09:00 05/17/17 08:59 05/10/17 09:04 600 MG Vital Signs: Date Time Temp Pulse Resp B/P (MAP) Pulse Ox O2 Delivery O2 Flow Rate FiO2 05/10/17 11:50 37.2 71 18 116/74 (88) 89 Trach Collar 05/10/17 11:06 63 18 96 Trach Collar 30 05/10/17 07:58 37.2 71 18 120/72 (88) 90 Room Air 05/10/17 07:16 68 18 76 Room Air 05/10/17 04:40 37.0 69 24 110/59 (76) 97 Nasal Cannula 3.0 05/10/17 04:00 Nasal Cannula 3.0 05/10/17 01:00 Nasal Cannula 3.0 05/09/17 23:49 37.3 69 18 110/62 (78) 98 Nasal Cannula 3.0 05/09/17 21:03 37.1 72 20 115/65 (82) 96 Room Air 05/09/17 20:10 97 Nasal Cannula 3.0 05/09/17 19:39 77 18 95 Nasal Cannula 3.0 05/09/17 16:00 36.9 74 16 100/50 (67) 98 Nasal Cannula 3.0 05/09/17 16:00 Nasal Cannula 3.0 05/09/17 14:38 73 16 97 Nasal Cannula 2.0 Laboratory Results: Last 24 Hours Test 05/09/17 13:08 05/09/17 14:41 05/09/17 15:35 05/09/17 16:06 Bedside Glucose 360 mg/dl 266 mg/dl 380 mg/dl Sodium Level 140 mmol/L Potassium Level 4.0 mmol/L Chloride Level 107 mmol/L Carbon Dioxide Level 25 mmol/L Anion Gap 8.0 mmol/L Blood Urea Nitrogen 20 mg/dl Creatinine 1.76 mg/dl Est Creatinine Clear Calc Drug Dose 30.0 ml/min Estimated GFR () 37.9 Estimated GFR (Non- 32.7 BUN/Creatinine Ratio 11.3 Random Glucose 273 mg/dl Calcium Level 7.9 mg/dl Test 05/09/17 16:26 05/09/17 17:27 05/09/17 18:32 05/09/17 19:32 Bedside Glucose 271 mg/dl 267 mg/dl 323 mg/dl 355 mg/dl Test 05/09/17 20:55 05/09/17 20:57 05/09/17 22:25 05/09/17 23:48 Random Vancomycin Level 19.5 mcg/ml Bedside Glucose 219 mg/dl 196 mg/dl 181 mg/dl Test 05/10/17 01:01 05/10/17 01:57 05/10/17 02:59 05/10/17 04:11 Bedside Glucose 155 mg/dl 140 mg/dl 95 mg/dl 115 mg/dl Test 05/10/17 04:47 05/10/17 06:07 05/10/17 06:19 05/10/17 07:51 Bedside Glucose 172 mg/dl 150 mg/dl 150 mg/dl White Blood Count 7.80 K/uL Red Blood Count 2.84 M/uL Hemoglobin 9.3 g/dL Hematocrit 29.1 % Mean Corpuscular Volume 102.5 fL Mean Corpuscular Hemoglobin 32.7 pg Mean Corpuscular Hemoglobin Concent 32.0 g/dl RDW Standard Deviation 54.2 fL RDW Coefficient of Variation 14.5 % Platelet Count 195 K/uL Mean Platelet Volume 10.8 fL Sodium Level 143 mmol/L Potassium Level 3.9 mmol/L Chloride Level 112 mmol/L Carbon Dioxide Level 23 mmol/L Anion Gap 8.0 mmol/L Blood Urea Nitrogen 17 mg/dl Creatinine 1.64 mg/dl Est Creatinine Clear Calc Drug Dose 33.6 ml/min Estimated GFR () 41.2 Estimated GFR (Non- 35.6 BUN/Creatinine Ratio 10.2 Random Glucose 163 mg/dl Calcium Level 7.9 mg/dl Test 05/10/17 09:06 05/10/17 11:04 Bedside Glucose 164 mg/dl 235 mg/dl
[2017-05-10] MEDS: ENOXAPARIN 30 MG/0.3 ML SYR SC SCH (19:58)
[2017-05-10] MEDS: FEXOFENADINE HCL 180 MG TAB PO SCH (19:59)
[2017-05-10] MEDS: MONTELUKAST SOD 10 MG TAB PO SCH (20:00)
[2017-05-10] MEDS: ATORVASTATIN 10 MG TAB PO SCH (20:00)
[2017-05-11] VITALS (8 sets, daily range): BP systolic 115–138; BP diastolic 66–90; PULSE 57–91; TEMP 36.9–37.5; O2SAT 90–95
[2017-05-11] MEDS: SODIUM CHLORIDE 0.9% 1000ML 1,000 ML IV SCH (00:45)
--- NOTE | 2017-05-11 01:12 | Progress Note ---
Subjective Date of Service: late entry for visit May 10, 2017. Subjective Pt evaluation today including: conversation w/ family (mother at bedside, daughter at bedside), physical exam, chart review, lab review, conversation w/ excellence consultant (pulmonary (twice)), review of inpatient medication list Pain: nothing obvious PO Intake: normal tele stable overnight no issues per staff Director of Valorie's skilled nursing wants to meet w/ the care team this Saturday to discuss her care plan and goals for care mother again voices she does not want PEG for Valorie cannot obtain ROS due to mental status Problem List Medical Problems: (1) Elevated troponin Status: Acute (2) Leukocytosis Status: Acute (3) Pneumonia Status: Acute (4) Sepsis with organ dysfunction Status: Acute Objective Vital Signs Date Time Temp Pulse Resp B/P (MAP) Pulse Ox O2 Delivery O2 Flow Rate FiO2 05/10/17 23:59 Nasal Cannula 3.0 05/10/17 23:35 37.1 72 25 134/75 (94) 92 Trach Collar 30 05/10/17 20:10 66 18 99 Nasal Cannula 3.0 05/10/17 20:00 Nasal Cannula 3.0 05/10/17 19:39 37.1 67 18 117/66 (83) 98 Nasal Cannula 3.0 05/10/17 16:12 36.7 70 18 132/77 (95) 90 Trach Collar 05/10/17 16:00 Trach Collar 05/10/17 15:26 61 18 96 Trach Collar 30 05/10/17 12:00 Trach Collar 30 05/10/17 11:50 37.2 71 18 116/74 (88) 89 Trach Collar 05/10/17 11:06 63 18 96 Trach Collar 30 05/10/17 08:00 Trach Collar 05/10/17 07:58 37.2 71 18 120/72 (88) 90 Room Air 05/10/17 07:16 68 18 76 Room Air 05/10/17 04:40 37.0 69 24 110/59 (76) 97 Nasal Cannula 3.0 05/10/17 04:00 Nasal Cannula 3.0 Physical Exam General Appearance: no apparent distress, + pertinent finding (Down's syndrome features) ENT: + pertinent finding (question thrush on tongue) Neck: no JVD, + pertinent finding (trach in place with purulent secretions ) Respiratory/Chest: no respiratory distress, no accessory muscle use, + decreased breath sounds (bases), + pertinent finding (course BS b/l ) Cardiovascular: regular rate, rhythm, no gallop, + systolic murmur (1/6 LLSB) Abdomen: normal bowel sounds, non tender, soft, no organomegaly Extremities: no pedal edema Neurologic/Psychiatric: alert Laboratory Results Last 24 Hours Test 05/10/17 01:57 05/10/17 02:59 05/10/17 04:11 05/10/17 04:47 Bedside Glucose 140 mg/dl 95 mg/dl 115 mg/dl 172 mg/dl Test 05/10/17 06:07 05/10/17 06:19 05/10/17 07:51 05/10/17 09:06 White Blood Count 7.80 K/uL Red Blood Count 2.84 M/uL Hemoglobin 9.3 g/dL Hematocrit 29.1 % Mean Corpuscular Volume 102.5 fL Mean Corpuscular Hemoglobin 32.7 pg Mean Corpuscular Hemoglobin Concent 32.0 g/dl RDW Standard Deviation 54.2 fL RDW Coefficient of Variation 14.5 % Platelet Count 195 K/uL Mean Platelet Volume 10.8 fL Sodium Level 143 mmol/L Potassium Level 3.9 mmol/L Chloride Level 112 mmol/L Carbon Dioxide Level 23 mmol/L Anion Gap 8.0 mmol/L Blood Urea Nitrogen 17 mg/dl Creatinine 1.64 mg/dl Est Creatinine Clear Calc Drug Dose 33.6 ml/min Estimated GFR () 41.2 Estimated GFR (Non- 35.6 BUN/Creatinine Ratio 10.2 Random Glucose 163 mg/dl Calcium Level 7.9 mg/dl Bedside Glucose 150 mg/dl 150 mg/dl 164 mg/dl Test 05/10/17 11:04 05/10/17 12:27 05/10/17 13:32 05/10/17 14:37 Bedside Glucose 235 mg/dl 167 mg/dl 156 mg/dl 140 mg/dl Test 05/10/17 15:38 05/10/17 17:24 05/10/17 18:34 05/10/17 19:34 Bedside Glucose 133 mg/dl 124 mg/dl 125 mg/dl 153 mg/dl Test 05/10/17 20:43 05/10/17 21:35 Bedside Glucose 155 mg/dl 152 mg/dl Assessment and Plan 51yo female with: 1. RLL pneumonia - likely aspiration - 2nd to MRSA per bronch culture. oral options for Rx - bactrim or zyvox; until renal function improves will use zyvox, then can change to bactrim. plan for 10-14 day course of abx for the MRSA today is day # 6 of abx Continue aspiration precautions. Continue aggressive pulmonary toilet. Patient wears chronic O2 . 2. chronic hypoxic respiratory failure 2nd to pulmonary HTN, tracheal stenosis , and chronic cor pulmonale - stable O2 sats at this time. 3. dysphagia with silent aspiration - nectar thick liquids recommended by speech. No PEG at this time. 4. T1DM - good control w/ insulin drip at this time. Consider transitioning back to insulin pump?? Defer to pharmacy. 5. hypothyroidism - TSH compensated; cont synthroid. 6. DVT proph - lovenox 30mg daily. 7. dental elana with probable dental abscess - antibiotics for #1 above likely will suffice. Dentist referral after discharge. 8. tracheal stenosis s/p tracheostomy 9. pulmonary HTN / chronic cor pulmonale - 2nd to congenital heart disease? prior untreated CAMILLA? other? 10. FEN - thickened liquids per speech; diet as tolerated; lytes table. 11. acute kidney injury - improved; continue IVF; repeat BMP am will have meeting Saturday with skilled nursing director, family, etc Continued [facility] stay due to: multiple IV medications needed, other (acute kidney injury) Discharge planning: other (special needs home vs other )
[2017-05-11] MEDS: LEVOTHYROXINE 150 MCG TAB PO SCH (05:29)
[2017-05-11] MEDS: ALBUT/IPRATROP 3MG/0.5MG NEB 3 ML VIAL INH SCH ×3 (07:12→20:08)
[2017-05-11 07:14] LABS: CALCIUM 7.8 mg/dl (8.5-10.1); CREATININE 1.49 mg/dl (0.60-1.20)
[2017-05-11] MEDS: GUAIFENESIN 600 MG TABCR PO SCH ×2 (08:14→20:23)
[2017-05-11] MEDS: CALCIUM 600MG + VIT D 400 IU TAB PO SCH ×3 (08:14→20:22)
[2017-05-11] MEDS: PANTOprazole SOD 40 MG TAB PO SCH (08:14)
[2017-05-11] MEDS: CEROVITE ADV FORMULA TAB PO SCH (08:14)
[2017-05-11] MEDS: CITALOPRAM 40 MG TAB PO SCH (08:14)
[2017-05-11] MEDS: CHOLECALCIFEROL 1000 INTER.UNIT TAB PO SCH (08:14)
[2017-05-11] MEDS: SALMETEROL XINAFOATE 50MCG 28 BLISTER INH INH SCH (08:15)
[2017-05-11] MEDS: FLUTICASONE HFA 110MCG INHALER INH SCH ×2 (08:15→20:21)
[2017-05-11] MEDS: POLYETHYLENE (MIRALAX) 17 GM PACK PO SCH ×2 (08:15→20:23)
[2017-05-11] MEDS: ZINC SULFATE 220 MG CAP PO SCH ×2 (08:15→20:24)
[2017-05-11] MEDS: LINEZOLID 600 MG TAB PO SCH ×2 (08:15→20:25)
[2017-05-11] MEDS: INSULIN ASPART 100 UNITS/ML 3 ML PEN SC SCH ×4 (08:28→20:44)
--- NOTE | 2017-05-11 11:01 | Pulmonology Progress Note ---
Pulmonary Progress Note Date of Service May 11, 2017. Attending Dr. Jones Subjective Patient currently is not in any respiratory distress. She is sitting up watching cartoons. She has no questions or complaints on exam. I did discuss her with Dr. Sage. She is currently on PO Zyvox. She did have MRSA grow from bronch washing. Objective VS reviewed: Afebrile HR 59 RR 16 BP 137/90 SaO2 92% General: Patient is awake, alert, cooperative, and in no acute distress. Head: Normocephalic, Atraumatic. Neck: Tracheostomy- clean appearing Respiratory: No adventitious sounds heard on exam. Very slight high pitched wheeze throughout. Cardiovascular: Regular rate and rhythm. No murmur appreciate. Normal S1/S2. Abdomen: Normal bowel sounds hear throughout. Back: Normal inspection. Neuro: Alert CN II-XII grossly intact. Psych: Mood and affect are normal. Assessment & Plan Chronic aspiration MRSA Pneumonia verus aspiration [facility] Patient continues to do well. She is currently on PO Zyvox and doing well. He continues to have some mild elevation of her creatinine to 1.49. Therefore, after discussion with Dr. Sage- agree that PO Zyvox is the better option for continued therapy over PO Bactrim. Recommend completing a 10 day course of abx therapy. She otherwise is doing well from a Pulmonary standpoint. Pulmonary will sign off. Data Medications: Current Inpatient Medications Medications (Trade) Dose Ordered Sig/Rene Route Start Time Stop Time Status Last Admin Dose Admin Acetaminophen (Tylenol Tab) 650 mg Q4H PRN PO 05/05/17 11:00 06/04/17 10:59 05/07/17 13:43 650 MG Atorvastatin Calcium (Lipitor Tab) 10 mg HS PO 05/05/17 21:00 06/04/17 20:59 05/10/17 20:00 10 MG Citalopram Hydrobromide (celeXA TAB) 40 mg DAILY PO 05/06/17 09:00 06/05/17 08:59 05/11/17 08:14 40 MG Clotrimazole (Lotrimin 1% Crm) 1 appln TID PRN EXT 05/05/17 11:00 06/04/17 10:59 Cholecalciferol (Vitamin D Tab) 1,000 inter.unit DAILY PO 05/06/17 09:00 06/05/17 08:59 05/11/17 08:14 1,000 INTER.UNIT Fexofenadine HCl (Danielle Tab) 180 mg HS PO 05/05/17 21:00 06/04/17 20:59 05/10/17 19:59 180 MG Fluticasone Propionate (Flovent Hfa 110MCG Inhaler) 2 puffs AMHS INH 05/05/17 21:00 06/04/17 20:59 05/11/17 08:15 2 PUFFS Guaifenesin (Mucinex Contr Rel Tab) 600 mg Q12 PO 05/05/17 21:00 06/04/17 20:59 05/11/17 08:14 600 MG Ibuprofen (Motrin Tab) 600 mg TID PRN PO 05/05/17 11:00 06/04/17 10:59 05/06/17 08:52 600 MG Levothyroxine Sodium (Synthroid Tab) 150 mcg DAILYBB PO 05/06/17 06:00 06/05/17 05:59 05/11/17 05:29 150 MCG Montelukast Sodium (Singulair Tab) 10 mg HS PO 05/05/17 21:00 06/04/17 20:59 05/10/17 20:00 10 MG Multivitamins/ Minerals (Multivitamin W/ Minerals Tab) 1 tab QAM PO 05/06/17 09:00 06/05/17 08:59 05/11/17 08:14 1 TAB Promethazine HCl (Phenergan Tab) 12.5 mg Q8 PRN PO 05/05/17 11:00 06/04/17 10:59 Salmeterol Xinafoate (Serevent Diskus Inh) 1 puffs DAILY INH 05/06/17 09:00 06/05/17 08:59 05/11/17 08:15 1 PUFFS Zinc Sulfate (Zinc Sulfate Cap) 220 mg AMHS PO 05/05/17 21:00 06/04/17 20:59 05/11/17 08:15 220 MG Calcium/Vitamin D (Caltrate Plus Tab) 1 tab TID PO 05/05/17 14:00 06/04/17 13:59 05/11/17 08:14 1 TAB Pantoprazole Sodium (Protonix Tab) 40 mg QAM PO 05/06/17 09:00 06/05/17 08:59 05/11/17 08:14 40 MG Miscellaneous Information (Order Awaiting Action) 1 ea QS N/A 05/05/17 16:00 06/04/17 15:59 05/09/17 08:00 1 EA Albuterol/ Ipratropium (Duoneb) 3 ml QIDR INH 05/05/17 12:00 06/04/17 11:59 05/11/17 07:12 3 ML Miscellaneous Information (Consult Glycemic Management Pharmacy) 1 ea UD PRN N/A 05/05/17 11:23 06/04/17 11:22 Albuterol/ Ipratropium (Duoneb) 3 ml Q2H PRN INH 05/05/17 13:00 06/04/17 12:59 05/06/17 02:35 3 ML Glucose (Glucose 40% Gel) 15-30 GRAMS 15 GRAMS... UD PRN PO 05/06/17 00:30 06/05/17 00:29 Glucose (Glucose Chew Tab) 4-8 Tablets 4 Tabl... UD PRN PO 05/06/17 00:30 06/05/17 00:29 Dextrose (Dextrose 50% 50ML Syringe) 25-50ML OF 50% DW IV FOR... UD PRN IV 05/06/17 00:30 06/05/17 00:29 05/09/17 03:07 25 ML Glucagon (Glucagon Inj) 1 mg UD PRN SQ 05/06/17 00:30 06/05/17 00:29 Insulin Human Regular 250 units/ Sodium Chloride 252.5 ml @ 0 mls/hr Q24H IV 05/07/17 10:00 06/06/17 09:59 05/10/17 11:27 1.7 MLS/HR Insulin Aspart (novoLOG ASPART) SLIDING SCALE PCHS SC 05/07/17 12:00 06/06/17 11:59 05/11/17 08:28 6 UNITS Polyethylene (Miralax Powder Packet) 17 gm BID PO 05/08/17 21:00 06/07/17 20:59 05/11/17 08:15 17 GM Enoxaparin Sodium (Lovenox Inj) 30 mg Q24H SC 05/09/17 21:00 06/04/17 20:59 05/10/17 19:58 30 MG Linezolid (Zyvox Tab) 600 mg BID PO 05/10/17 09:00 05/17/17 08:59 05/11/17 08:15 600 MG Vital Signs: Date Time Temp Pulse Resp B/P (MAP) Pulse Ox O2 Delivery O2 Flow Rate FiO2 05/11/17 07:38 37.1 59 16 137/90 (106) 92 Trach Collar 10.0 05/11/17 07:12 57 18 90 Room Air 05/11/17 04:00 Trach Collar 30 05/11/17 03:43 37.5 65 19 138/79 (98) 94 Trach Collar 30 05/10/17 23:59 Trach Collar 30 05/10/17 23:35 37.1 72 25 134/75 (94) 92 Trach Collar 30 05/10/17 20:10 66 18 99 Nasal Cannula 3.0 05/10/17 20:00 Nasal Cannula 3.0 05/10/17 19:39 37.1 67 18 117/66 (83) 98 Nasal Cannula 3.0 05/10/17 16:12 36.7 70 18 132/77 (95) 90 Trach Collar 05/10/17 16:00 Trach Collar 05/10/17 15:26 61 18 96 Trach Collar 30 05/10/17 12:00 Trach Collar 30 05/10/17 11:50 37.2 71 18 116/74 (88) 89 Trach Collar 05/10/17 11:06 63 18 96 Trach Collar 30 Laboratory Results: Last 24 Hours Test 05/10/17 11:04 05/10/17 12:27 05/10/17 13:32 05/10/17 14:37 Bedside Glucose 235 mg/dl 167 mg/dl 156 mg/dl 140 mg/dl Test 05/10/17 15:38 05/10/17 17:24 05/10/17 18:34 05/10/17 19:34 Bedside Glucose 133 mg/dl 124 mg/dl 125 mg/dl 153 mg/dl Test 05/10/17 20:43 05/10/17 21:35 05/10/17 23:28 05/11/17 01:47 Bedside Glucose 155 mg/dl 152 mg/dl 166 mg/dl 149 mg/dl Test 05/11/17 03:39 05/11/17 05:29 05/11/17 06:09 05/11/17 09:47 Bedside Glucose 165 mg/dl 147 mg/dl 219 mg/dl Sodium Level 145 mmol/L Potassium Level 4.0 mmol/L Chloride Level 113 mmol/L Carbon Dioxide Level 27 mmol/L Anion Gap 5.0 mmol/L Blood Urea Nitrogen 13 mg/dl Creatinine 1.49 mg/dl Est Creatinine Clear Calc Drug Dose 36.9 ml/min Estimated GFR () 46.3 Estimated GFR (Non- 40.0 BUN/Creatinine Ratio 9.0 Random Glucose 149 mg/dl Calcium Level 7.8 mg/dl
[2017-05-11] MEDS: INSULIN REGULAR 250 UNITS in SODIUM CHLORIDE 0.9% 250ML 250 ML IV SCH ×7 (11:18→23:07)
--- NOTE | 2017-05-11 13:22 | Pharmacy Progress Note ---
Pharmacy Glycemic Short Note 2 Date of Service May 11, 2017. OUTPATIENT ANTIDIABETIC REGIMEN: * Novolog insulin pump * HbA1c: 10.6% (02/26/17) ASSESSMENT: * Ms Valorie Early is a 51 y/o F with a PMH of GERD, Down Syndrome, and poorly controlled T1DM who is admitted with respiratory insuffiency and aspiration. She has been here for several days and has been maintained on an insulin infusion since hospital day 2. Without an insulin infusion the patient has unpredictable blood sugars and can range from 48 to 419 mg/dL in one day. Insulin pump cannot be restarted unless a member from the [facility] is here to manage it. * Patient's blood sugars range from 95-235 mg/dL yesterday with the infusion running from 1.1-2.4 units/hr (patient's typical basal rate is 0.5 units via insulin pump). Continue insulin infusion while hospitalized. PLAN FOR INPATIENT GLYCEMIC CONTROL: * Hold patient's Novolog insulin pump * Initiate IV insulin gtt at this time * Moderate Stress Level * Goal range: 110-200 mg/dL PLAN FOR DISCHARGE: * Anticipate that patient will be able to resume home insulin pump on discharge. * Most current A1c (10.6%) indicates sub-optimal glycemic control. Would highly recommend f/u with PCP MONA after discharge to adjust pump settings and work toward optimizing A1c.
[2017-05-11] MEDS ORDERED: MAGIC MOUTHWASH PO SCH (16:30)
[2017-05-11] MEDS: NYSTATIN PO SCH ×10 (17:34→20:33)
[2017-05-11] MEDS: DIPHENHYDRAMINE HCL PO SCH ×10 (17:34→20:33)
[2017-05-11] MEDS: ORA SWEET PO SCH ×10 (17:34→20:33)
[2017-05-11] MEDS: [UNRECOGNIZED DRUG - OTHER] PO SCH ×10 (17:34→20:33)
--- NOTE | 2017-05-11 18:25 | Progress Note ---
Subjective Date of Service: May 11, 2017. Subjective Pt evaluation today including: conversation w/ patient, conversation w/ family (mother by phone), physical exam, chart review, lab review, conversation w/ banking consultant (pulmonary PA) Pain: appears/seems comfortable except for mouth PO Intake: fair Voiding: incontinence tele stable overnight remains on insulin infusion - pharmacy managing during my encounter she was watching TV and was unchanged in appearance in comparison to previous visits staff report no issues cannot obtain reliable ROS due to Down's syndrome status Problem List Medical Problems: (1) Elevated troponin Status: Acute (2) Leukocytosis Status: Acute (3) Pneumonia Status: Acute (4) Sepsis with organ dysfunction Status: Acute Objective Vital Signs Date Time Temp Pulse Resp B/P (MAP) Pulse Ox O2 Delivery O2 Flow Rate FiO2 05/11/17 16:00 Nasal Cannula 3.0 05/11/17 15:37 36.9 91 18 115/66 (82) 92 Nasal Cannula 2.0 05/11/17 14:45 77 18 95 Nasal Cannula 2.0 05/11/17 12:00 92 Nasal Cannula 3.0 05/11/17 11:03 37.1 59 16 92 3.0 05/11/17 08:00 Nasal Cannula 3.0 05/11/17 07:38 37.1 59 16 137/90 (106) 92 Trach Collar 10.0 05/11/17 07:12 57 18 90 Room Air 05/11/17 04:00 Trach Collar 30 05/11/17 03:43 37.5 65 19 138/79 (98) 94 Trach Collar 30 05/10/17 23:59 Trach Collar 30 05/10/17 23:35 37.1 72 25 134/75 (94) 92 Trach Collar 30 05/10/17 20:10 66 18 99 Nasal Cannula 3.0 05/10/17 20:00 Nasal Cannula 3.0 05/10/17 19:39 37.1 67 18 117/66 (83) 98 Nasal Cannula 3.0 Physical Exam General Appearance: no apparent distress ENT: + pertinent finding (?mild thrush on tongue; dental cavity on left, no obvious abscess) Neck: no JVD Respiratory/Chest: no respiratory distress, no accessory muscle use, + decreased breath sounds (right base), + pertinent finding (course BS b/l, hint of wheeze b/l ) Cardiovascular: regular rate, rhythm, no gallop, no murmur Abdomen: normal bowel sounds, non tender, soft, no organomegaly Extremities: no pedal edema Neurologic/Psychiatric: alert Comments: trach in place in neck, clean, no drainage Laboratory Results Last 24 Hours Test 05/10/17 18:34 05/10/17 19:34 05/10/17 20:43 05/10/17 21:35 Bedside Glucose 125 mg/dl 153 mg/dl 155 mg/dl 152 mg/dl Test 05/10/17 23:28 05/11/17 01:47 05/11/17 03:39 05/11/17 05:29 Bedside Glucose 166 mg/dl 149 mg/dl 165 mg/dl 147 mg/dl Test 05/11/17 06:09 05/11/17 09:47 05/11/17 10:54 05/11/17 12:33 Sodium Level 145 mmol/L Potassium Level 4.0 mmol/L Chloride Level 113 mmol/L Carbon Dioxide Level 27 mmol/L Anion Gap 5.0 mmol/L Blood Urea Nitrogen 13 mg/dl Creatinine 1.49 mg/dl Est Creatinine Clear Calc Drug Dose 36.9 ml/min Estimated GFR () 46.3 Estimated GFR (Non- 40.0 BUN/Creatinine Ratio 9.0 Random Glucose 149 mg/dl Calcium Level 7.8 mg/dl Bedside Glucose 219 mg/dl 146 mg/dl 186 mg/dl Test 05/11/17 13:33 05/11/17 16:27 05/11/17 17:40 Bedside Glucose 249 mg/dl 246 mg/dl 318 mg/dl Assessment and Plan 51yo female with: 1. RLL pneumonia - likely aspiration - 2nd to MRSA per bronch culture. oral options for Rx - bactrim or zyvox; until renal function improves will use zyvox, then can change to bactrim. plan for 10-14 day course of abx for the MRSA today is day # 7 of abx Continue aspiration precautions. Continue aggressive pulmonary toilet. 2. chronic hypoxic respiratory failure 2nd to pulmonary HTN, tracheal stenosis , and chronic cor pulmonale - stable O2 sats at this time. 3. dysphagia with silent aspiration - nectar thick liquids recommended by speech. No PEG at this time. 4. T1DM - good control w/ insulin drip at this time. To transition back to her insulin pump on day of discharge. 5. hypothyroidism - TSH compensated; cont synthroid. 6. DVT proph - lovenox 30mg daily. 7. dental elana with probable dental abscess - antibiotics for #1 above likely will suffice. Dentist referral after discharge. 8. tracheal stenosis s/p tracheostomy 9. pulmonary HTN / chronic cor pulmonale - 2nd to congenital heart disease? prior untreated CAMILLA? other? 10. FEN - thickened liquids per speech; diet as tolerated; lytes stable once again today. 11. acute kidney injury - continues to improve. stop fluids. BMP in am. will have meeting Saturday with alf director, family, etc to discuss goals of care/overall care plan mother updated by phone today ok to transfer to med/surg Continued [facility] stay due to: multiple IV medications needed, other (acute kidney injury) Discharge planning: other (special needs home vs other )
[2017-05-11] MEDS: ATORVASTATIN 10 MG TAB PO SCH (20:23)
[2017-05-11] MEDS: FEXOFENADINE HCL 180 MG TAB PO SCH (20:24)
[2017-05-11] MEDS: MONTELUKAST SOD 10 MG TAB PO SCH (20:24)
[2017-05-11] MEDS: ENOXAPARIN 30 MG/0.3 ML SYR SC SCH (20:25)
[2017-05-12] VITALS (11 sets, daily range): BP systolic 102–130; BP diastolic 59–71; PULSE 66–76; TEMP 36.6–37.4; O2SAT 90–97
[2017-05-12] MEDS: INSULIN REGULAR 250 UNITS in SODIUM CHLORIDE 0.9% 250ML 250 ML IV SCH ×11 (04:08→23:04)
[2017-05-12] MEDS ORDERED: NURSING VERBAL MED ORDER ONE (05:15)
[2017-05-12 05:43] LABS: HEMATOCRIT 27.1 % (37-47); HEMOGLOBIN 8.5 g/dL (12.0-16.0); MEAN CELL VOLUME 102.7 fL (80-100); MEAN CORPUSCULAR HEMOGLOBIN 32.2 pg (25-34); MEAN CORPUSCULAR HGB CONC 31.4 g/dl (32-36); MEAN PLATELET VOLUME 10.6 fL (7.4-10.4); PLATELET COUNT 254 K/uL (130-400); RED CELL DISTRIBUTION WIDTH CV 14.5 % (11.5-14.5); RED CELL DISTRIBUTION WIDTH SD 54.5 fL (36.4-46.3); WHITE BLOOD COUNT 10.81 K/uL (4.8-10.8)
[2017-05-12 06:10] LABS: CALCIUM 7.9 mg/dl (8.5-10.1); CREATININE 1.43 mg/dl (0.60-1.20); POTASSIUM 3.8 mmol/L (3.5-5.1)
[2017-05-12] MEDS: DIPHENHYDRAMINE HCL PO SCH ×20 (06:17→21:38)
[2017-05-12] MEDS: ORA SWEET PO SCH ×20 (06:17→21:38)
[2017-05-12] MEDS: [UNRECOGNIZED DRUG - OTHER] PO SCH ×20 (06:17→21:38)
[2017-05-12] MEDS: NYSTATIN PO SCH ×20 (06:17→21:38)
[2017-05-12] MEDS: LEVOTHYROXINE 150 MCG TAB PO SCH (06:17)
[2017-05-12] MEDS: ALBUT/IPRATROP 3MG/0.5MG NEB 3 ML VIAL INH SCH ×4 (07:02→20:22)
[2017-05-12] MEDS: FLUTICASONE HFA 110MCG INHALER INH SCH ×2 (08:10→21:26)
[2017-05-12] MEDS: ZINC SULFATE 220 MG CAP PO SCH ×2 (08:11→21:27)
[2017-05-12] MEDS: SALMETEROL XINAFOATE 50MCG 28 BLISTER INH INH SCH (08:11)
[2017-05-12] MEDS: PANTOprazole SOD 40 MG TAB PO SCH (08:11)
[2017-05-12] MEDS: CEROVITE ADV FORMULA TAB PO SCH (08:11)
[2017-05-12] MEDS: LINEZOLID 600 MG TAB PO SCH ×2 (08:11→21:28)
[2017-05-12] MEDS: CITALOPRAM 40 MG TAB PO SCH (08:12)
[2017-05-12] MEDS: CALCIUM 600MG + VIT D 400 IU TAB PO SCH ×3 (08:12→21:29)
[2017-05-12] MEDS: GUAIFENESIN 600 MG TABCR PO SCH ×2 (08:12→21:29)
[2017-05-12] MEDS: CHOLECALCIFEROL 1000 INTER.UNIT TAB PO SCH (08:12)
[2017-05-12] MEDS: POLYETHYLENE (MIRALAX) 17 GM PACK PO SCH ×2 (08:13→21:30)
[2017-05-12] MEDS: INSULIN ASPART 100 UNITS/ML 3 ML PEN SC SCH ×4 (08:30→21:45)
[2017-05-12] MEDS: MAGNESIUM SULFATE 1GM / D5W 1 GM in PREMIXED IN D5W 100 ML IV SCH ×2 (10:58→12:02)
--- NOTE | 2017-05-12 13:41 | DIAGNOSTIC IMAGING REPORT ---
KUB CLINICAL HISTORY: Left flank pain COMPARISON STUDY: No previous studies for comparison. FINDINGS: There is no pathologic bowel dilatation. There are no calcifications suspicious for renal calculi. There are multiple nonspecific pelvic basin calcifications. There are nodular right lower lobe airspace opacities. There is a small right pleural effusion. IMPRESSION: 1. Nodular right lower lobe airspace opacities consistent with a pneumonia 2. Small right pleural effusion 3. No pathologic bowel dilatation 4. Nonspecific pelvic basin calcifications Electronically signed by: Kevon Law M.D. 05/12/2017 1:40 PM Dictated Date/Time: 05/12/2017 1:39 PM
[2017-05-12] MEDS ORDERED: BISACODYL 10 MG SUPP PR STA (13:57)
--- NOTE | 2017-05-12 18:33 | Progress Note ---
Subjective Date of Service: May 12, 2017. Subjective Pt evaluation today including: conversation w/ patient, conversation w/ family (mother at bedside), physical exam, chart review, lab review, review of studies (KUB x ray -- my read - copious stool left colon), review of inpatient medication list Pain: left flank/left side of abdomen - started just before lunch PO Intake: ate good breakfast and excellent lunch w/o emesis or worsening pain Voiding: incontinence no issues overnight remains on insulin infusion and good glycemic control mother reports Valorie started complaining of mild left sided abdominal discomfort (she initially pointed to the junction of LLQ/LUQ) just before lunch despite the pain she ate nearly everything for lunch and mother reports "she's doing really good today" no emesis following lunch during the visit Valorie was smiling and laughing after the visit I ordered a STAT KUB x-ray to exclude a kidney stone, severe constipation, etc. I felt there was a considerable amount of left-sided stool gave dulcolax suppos x 1 and she had a "very large" normal bowel movement pain was modestly relieved with the BM Problem List Medical Problems: (1) Elevated troponin Status: Acute (2) Leukocytosis Status: Acute (3) Pneumonia Status: Acute (4) Sepsis with organ dysfunction Status: Acute Review of Systems Constitutional: No fever Respiratory: + cough, No shortness of breath Cardiac: No chest pain Abdomen: + see HPI, + pain, No nausea, No vomiting, No diarrhea, No GI bleeding Objective Vital Signs Date Time Temp Pulse Resp B/P (MAP) Pulse Ox O2 Delivery O2 Flow Rate FiO2 05/12/17 15:28 36.6 74 19 102/59 (73) 90 2.0 05/12/17 15:02 76 18 90 Nasal Cannula 2.0 05/12/17 11:06 68 18 93 Nasal Cannula 2.0 05/12/17 08:00 96 Nasal Cannula 2.0 05/12/17 07:03 73 18 96 Nasal Cannula 2.0 05/12/17 00:30 Nasal Cannula 2.0 05/12/17 00:07 36.6 71 16 125/71 (89) 91 Nasal Cannula 2.0 05/11/17 20:10 Nasal Cannula 2.0 05/11/17 20:08 73 18 92 Nasal Cannula 2.0 Physical Exam General Appearance: no apparent distress, + pertinent finding (smiling, laughing; Down's syndrome features ) ENT: pharynx normal (thrush improved), + pertinent finding (trach in place - no drainage/secretions) Neck: no JVD Respiratory/Chest: no respiratory distress, no accessory muscle use, + decreased breath sounds (bases) Cardiovascular: regular rate, rhythm, no gallop Abdomen: normal bowel sounds, soft, no organomegaly, + tenderness (very mild, LUQ/LLQ; slightly the left flank as well ) Extremities: no pedal edema Neurologic/Psychiatric: alert Skin: no rash Laboratory Results Last 24 Hours Test 05/11/17 18:41 05/11/17 19:32 05/11/17 20:36 05/11/17 21:30 Bedside Glucose 351 mg/dl 289 mg/dl 240 mg/dl 272 mg/dl Test 05/11/17 22:30 05/12/17 00:05 05/12/17 01:07 05/12/17 02:01 Bedside Glucose 180 mg/dl 186 mg/dl 172 mg/dl 163 mg/dl Test 05/12/17 04:04 05/12/17 05:00 05/12/17 05:26 05/12/17 15:49 Bedside Glucose 109 mg/dl 86 mg/dl 308 mg/dl White Blood Count 10.81 K/uL Red Blood Count 2.64 M/uL Hemoglobin 8.5 g/dL Hematocrit 27.1 % Mean Corpuscular Volume 102.7 fL Mean Corpuscular Hemoglobin 32.2 pg Mean Corpuscular Hemoglobin Concent 31.4 g/dl RDW Standard Deviation 54.5 fL RDW Coefficient of Variation 14.5 % Platelet Count 254 K/uL Mean Platelet Volume 10.6 fL Sodium Level 144 mmol/L Potassium Level 3.8 mmol/L Chloride Level 112 mmol/L Carbon Dioxide Level 27 mmol/L Anion Gap 5.0 mmol/L Blood Urea Nitrogen 10 mg/dl Creatinine 1.43 mg/dl Est Creatinine Clear Calc Drug Dose 38.5 ml/min Estimated GFR () 48.7 Estimated GFR (Non- 42.0 BUN/Creatinine Ratio 7.0 Random Glucose 84 mg/dl Calcium Level 7.9 mg/dl Magnesium Level 1.6 mg/dl Test 05/12/17 16:48 2/25/18 17:53 Bedside Glucose 308 mg/dl 265 mg/dl Assessment and Plan 51yo female with: 1. RLL pneumonia - likely aspiration - 2nd to MRSA per bronch culture. oral options for Rx - bactrim or zyvox; until renal function improves will use zyvox, then can change to bactrim. plan for 10-14 day course of abx for the MRSA today is day # 8 of abx Continue aspiration precautions. Continue aggressive pulmonary toilet. 2. chronic hypoxic respiratory failure 2nd to pulmonary HTN, tracheal stenosis , and chronic cor pulmonale - chronic trach - stable O2 sats at this time on home O2 amount. 3. dysphagia with silent aspiration - nectar thick liquids recommended by speech. No PEG at this time. 4. T1DM - good control w/ insulin drip at this time. To transition back to her insulin pump on day of discharge. 5. hypothyroidism - TSH compensated; cont synthroid. 6. DVT proph - lovenox 30mg daily. 7. dental elana with probable dental abscess - antibiotics for #1 above likely will suffice. Dentist referral after discharge. 8. tracheal stenosis s/p tracheostomy 9. pulmonary HTN / chronic cor pulmonale - 2nd to congenital heart disease? prior untreated CAMILLA? other? 10. FEN - thickened liquids per speech; diet as tolerated; replace low mag with IV mag sulfate; repeat mag level later today. 11. acute kidney injury - continues to improve. BMP in am once again. 12. anemia, with mild drop overnight - will repeat the H/H later today to ensure stability. 13. left-sided abdominal pain - mild - due to left-sided constipation? If we Rx the constipation and pain persists then obtain CT abd/pelvis, r/o obstructing renal stone (especially in light of #11 above). Also check a u/a to exclude UTI, signs of kidney stone (crystals, blood), etc. 14. hypomagnesemia - replace, repeat level later today. will have meeting Saturday afternoon with alf director, family, etc to discuss goals of care/overall care plan mother updated at bedside today Continued [facility] stay due to: multiple IV medications needed, other (acute kidney injury, need for discussion with alf director on Saturday) Discharge planning: other (special needs home vs other )
[2017-05-12 19:06] LABS: HEMATOCRIT 27.3 % (37-47); HEMOGLOBIN 8.9 g/dL (12.0-16.0); MEAN CELL VOLUME 101.9 fL (80-100); MEAN CORPUSCULAR HEMOGLOBIN 33.2 pg (25-34); MEAN CORPUSCULAR HGB CONC 32.6 g/dl (32-36); PLATELET COUNT 265 K/uL (130-400); RED CELL DISTRIBUTION WIDTH CV 14.7 % (11.5-14.5); RED CELL DISTRIBUTION WIDTH SD 54.5 fL (36.4-46.3); WHITE BLOOD COUNT 11.28 K/uL (4.8-10.8)
[2017-05-12] MEDS: FEXOFENADINE HCL 180 MG TAB PO SCH (21:27)
[2017-05-12] MEDS: MONTELUKAST SOD 10 MG TAB PO SCH (21:28)
[2017-05-12] MEDS: ATORVASTATIN 10 MG TAB PO SCH (21:29)
[2017-05-12] MEDS: ENOXAPARIN 30 MG/0.3 ML SYR SC SCH (21:30)
[2017-05-12] MEDS: ACETAMINOPHEN 325 MG TAB PO PRN (21:42)
[2017-05-13] VITALS (12 sets, daily range): BP systolic 95–137; BP diastolic 62–79; PULSE 60–81; TEMP 36.3–37; O2SAT 96–100
[2017-05-13] MEDS: INSULIN REGULAR 250 UNITS in SODIUM CHLORIDE 0.9% 250ML 250 ML IV SCH ×14 (00:36→22:50)
[2017-05-13 05:55] LABS: HEMATOCRIT 25.6 % (37-47); HEMOGLOBIN 8.3 g/dL (12.0-16.0); MEAN CELL VOLUME 102.4 fL (80-100); MEAN CORPUSCULAR HEMOGLOBIN 33.2 pg (25-34); MEAN CORPUSCULAR HGB CONC 32.4 g/dl (32-36); MEAN PLATELET VOLUME 10.2 fL (7.4-10.4); PLATELET COUNT 255 K/uL (130-400); RED CELL DISTRIBUTION WIDTH CV 14.7 % (11.5-14.5); RED CELL DISTRIBUTION WIDTH SD 55.1 fL (36.4-46.3); WHITE BLOOD COUNT 10.52 K/uL (4.8-10.8)
[2017-05-13] MEDS: DEXTROSE 50% 50 ML SYR IV PRN (06:25)
[2017-05-13 06:28] LABS: CREATININE 1.53 mg/dl (0.60-1.20)
[2017-05-13] MEDS: LEVOTHYROXINE 150 MCG TAB PO SCH (06:48)
[2017-05-13] MEDS: [UNRECOGNIZED DRUG - OTHER] PO SCH ×20 (06:49→21:15)
[2017-05-13] MEDS: DIPHENHYDRAMINE HCL PO SCH ×20 (06:49→21:15)
[2017-05-13] MEDS: NYSTATIN PO SCH ×20 (06:49→21:15)
[2017-05-13] MEDS: ORA SWEET PO SCH ×20 (06:49→21:15)
[2017-05-13] MEDS: ALBUT/IPRATROP 3MG/0.5MG NEB 3 ML VIAL INH SCH ×4 (07:14→19:49)
[2017-05-13] MEDS: CITALOPRAM 40 MG TAB PO SCH (07:55)
[2017-05-13] MEDS: ZINC SULFATE 220 MG CAP PO SCH (07:55)
[2017-05-13] MEDS: CALCIUM 600MG + VIT D 400 IU TAB PO SCH ×3 (07:55→21:15)
[2017-05-13] MEDS: LINEZOLID 600 MG TAB PO SCH ×2 (07:55→21:16)
[2017-05-13] MEDS: CHOLECALCIFEROL 1000 INTER.UNIT TAB PO SCH (07:55)
[2017-05-13] MEDS: PANTOprazole SOD 40 MG TAB PO SCH (07:55)
[2017-05-13] MEDS: GUAIFENESIN 600 MG TABCR PO SCH ×2 (07:55→21:15)
[2017-05-13] MEDS: CEROVITE ADV FORMULA TAB PO SCH (07:55)
[2017-05-13] MEDS: FLUTICASONE HFA 110MCG INHALER INH SCH ×2 (07:56→21:14)
[2017-05-13] MEDS: POLYETHYLENE (MIRALAX) 17 GM PACK PO SCH ×2 (07:56→21:13)
[2017-05-13] MEDS: SALMETEROL XINAFOATE 50MCG 28 BLISTER INH INH SCH (07:56)
[2017-05-13] MEDS: INSULIN ASPART 100 UNITS/ML 3 ML PEN SC SCH ×4 (08:57→21:00)
--- NOTE | 2017-05-13 09:49 | DIAGNOSTIC IMAGING REPORT ---
ABD/PELVIS WITHOUT FOR STONE HISTORY: 51 years-old Female ACUTE RENAL FAILURE, LEFT FLANK PAIN acute renal failure with left-sided flank pain COMPARISON: [facility] 05/12/2017, CT chest 05/20/2015 and 08/13/2012 TECHNIQUE: Multiple axial CT images of the abdomen and pelvis were obtained without contrast. A dose lowering technique was used consistent with the principals of ANNETTE. FINDINGS: Small right and trace left pleural effusions with bibasilar groundglass and consolidative opacities. The patient has had bibasilar consolidation on multiple studies dating back to at least CT chest of 2012. No pneumatosis or pneumoperitoneum identified. Right-sided aortic arch redemonstrated. Trace pericardial effusion. Contracted gallbladder. The liver, spleen, pancreas and adrenal glands are within normal limits. Mild nonspecific bilateral perinephric stranding without definite renal calculi or uropathy. No definite ureteral calculi. Calcifications of the pelvis are seen suggesting phleboliths. Circumferential wall thickening of the bladder is noted. No adnexal mass lesions are identified. Abdominal aorta is normal in course and caliber. No bulky adenopathy identified. No bowel obstruction or focal bowel wall thickening. I attenuating material is noted within bowel of the right lower quadrant of the abdomen extending into a normal-appearing appendix. Moderate volume of formed stool is noted throughout the colon. Small fat filled periumbilical hernia, diastases 11 mm. Subcutaneous emphysema of the right lower intra-abdominal wall suggests injection site. Mild nonspecific body wall edema. Bones appear intact. Severe discogenic degenerative changes at L4-L5 and L5-S1 with grade 2 anterolisthesis at both of these levels secondary to remote appearing bilateral pars defects. IMPRESSION: 1. No definite renal or ureteral calculi identified. No obstructive uropathy. 2. Mild nonspecific bilateral perinephric fat stranding is noted in addition to mild circumferential wall thickening of the bladder. Correlate with urinalysis to exclude infectious etiology. 3. Suggested constipation without evidence of bowel obstruction. 4. Small right and trace left pleural effusions with trace pericardial effusion. 5. Right greater than left bibasilar consolidation. Note that consolidation of the lung bases has been present on multiple studies dating back to at least 2012. Organizing pneumonia or chronic aspiration pneumonitis are differential considerations. 6. 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 The above report was generated using voice recognition software. It may contain grammatical, syntax or spelling errors. Electronically signed by: Trung Betts M.D. 05/13/2017 9:47 AM Dictated Date/Time: 05/13/2017 9:36 AM
[2017-05-13] MEDS ORDERED: FLUCONAZOLE 100 MG TAB PO ONE (10:15)
--- NOTE | 2017-05-13 14:28 | Pharmacy Progress Note ---
Pharmacy Glycemic Short Note 2 Date of Service May 13, 2017. OUTPATIENT ANTIDIABETIC REGIMEN: * Novolog insulin pump * HbA1c: 10.6% (02/26/17) ASSESSMENT: * Ms Early continues on her insulin infusion. Her infusion rates ranged from 0.7 units to 3.5 units/hr... the infusion rates increase throughout the day. Blood sugars are typically below 250 mg/dL. Today, her infusion was held this morning. Therefore, blood sugars were a little higher afterwards at greater than 300 mg/dL. Maximum rate of 4 units/hr still in infusion. Family meeting is scheduled for today. * Continue current insulin infusion until plan established - reasonable to restart insulin pump whenever patient is going back to the [facility]. Continue insulin infusion as in regards to previous admissions whenever patient is on basal bolus the patient has extremely labile blood sugars. The insulin infusion is maintaining decent blood sugar values. * Ms Valorie Early is a 51 y/o F with a PMH of GERD, Down Syndrome, and poorly controlled T1DM who is admitted with respiratory insuffiency and aspiration. She has been here for several days and has been maintained on an insulin infusion since hospital day 2. Without an insulin infusion the patient has unpredictable blood sugars and can range from 48 to 419 mg/dL in one day. Insulin pump cannot be restarted unless a member from the [facility] is here to manage it. * Patient's blood sugars range from 95-235 mg/dL yesterday with the infusion running from 1.1-2.4 units/hr (patient's typical basal rate is 0.5 units via insulin pump). Continue insulin infusion while hospitalized. PLAN FOR INPATIENT GLYCEMIC CONTROL: * Hold patient's Novolog insulin pump * Initiate IV insulin gtt at this time * Moderate Stress Level * Goal range: 130-200 mg/dL PLAN FOR DISCHARGE: * Anticipate that patient will be able to resume home insulin pump on discharge. * Most current A1c (10.6%) indicates sub-optimal glycemic control. Would highly recommend f/u with PCP MONA after discharge to adjust pump settings and work toward optimizing A1c.
[2017-05-13] MEDS: MONTELUKAST SOD 10 MG TAB PO SCH (21:15)
[2017-05-13] MEDS: FEXOFENADINE HCL 180 MG TAB PO SCH (21:16)
[2017-05-13] MEDS: ATORVASTATIN 10 MG TAB PO SCH (21:16)
[2017-05-13] MEDS: ENOXAPARIN 30 MG/0.3 ML SYR SC SCH (21:18)
[2017-05-14] MEDS: INSULIN REGULAR 250 UNITS in SODIUM CHLORIDE 0.9% 250ML 250 ML IV SCH ×4 (00:05→10:16)
--- NOTE | 2017-05-14 00:45 | Progress Note ---
Subjective Date of Service: May 13, 2017. Subjective Pt evaluation today including: conversation w/ family (mother, 2 sisters, and alf administrators/directors), physical exam, chart review, lab review, review of studies (CT abd/pelvis), conversation w/ ergonomics consultant (pulmonary - Dr. Ozuna), review of inpatient medication list Pain: left sided abd pain/back pain improved today PO Intake: eating well Voiding: incontinence bladder scan/PVR was 0 Valorie was in good spirits during the visit - smiling, laughing, watching TV mother confirms "Valorie is more like herself" staff report no issues still on insulin infusion nearly 80 minute discussion held with the pt's mother, 2 sisters, and 3 administrators/directors from the alf in which she lives see A/P for more information ROS unable to be obtained 2nd to mental status Problem List Medical Problems: (1) Elevated troponin Status: Acute (2) Leukocytosis Status: Acute (3) Pneumonia Status: Acute (4) Sepsis with organ dysfunction Status: Acute Objective Vital Signs Date Time Temp Pulse Resp B/P (MAP) Pulse Ox O2 Delivery O2 Flow Rate FiO2 05/13/17 19:49 68 16 96 Nasal Cannula 2.0 05/13/17 19:28 36.9 70 20 111/73 (86) 100 Nasal Cannula 2.0 05/13/17 16:00 97 Nasal Cannula 2.0 05/13/17 15:44 74 16 97 Nasal Cannula 2.0 05/13/17 15:10 36.3 78 20 107/68 (81) 97 05/13/17 11:50 37.0 81 18 137/79 (98) 96 Room Air 05/13/17 11:10 71 16 97 Nasal Cannula 2.0 05/13/17 08:00 99 Nasal Cannula 2.0 05/13/17 07:21 36.4 60 18 135/76 (95) 99 05/13/17 07:14 61 18 96 Nasal Cannula 3.0 05/13/17 04:19 37.0 60 18 125/67 (86) 98 Nasal Cannula 4.0 05/12/17 23:45 96 Nasal Cannula 2.0 Physical Exam General Appearance: no apparent distress, + pertinent finding (Down's features) ENT: pharynx normal (thrush improved) Neck: no JVD, + pertinent finding (trach in place; no secretions at trach opening) Respiratory/Chest: no respiratory distress, no accessory muscle use, + decreased breath sounds (bases), + pertinent finding (course BS b/l) Cardiovascular: regular rate, rhythm, no gallop, + systolic murmur (1/6 AZAR LLSB) Abdomen: normal bowel sounds, non tender, soft, no organomegaly, + pertinent finding (no flank tenderness today) Extremities: no pedal edema Neurologic/Psychiatric: alert, + pertinent finding (smiling) Skin: no rash Laboratory Results Last 24 Hours Test 05/12/17 23:53 05/13/17 00:50 05/13/17 01:49 05/13/17 02:49 Bedside Glucose 188 mg/dl 196 mg/dl 189 mg/dl 153 mg/dl Test 05/13/17 03:49 05/13/17 04:53 05/13/17 05:25 05/13/17 05:54 Bedside Glucose 142 mg/dl 139 mg/dl 106 mg/dl White Blood Count 10.52 K/uL Red Blood Count 2.50 M/uL Hemoglobin 8.3 g/dL Hematocrit 25.6 % Mean Corpuscular Volume 102.4 fL Mean Corpuscular Hemoglobin 33.2 pg Mean Corpuscular Hemoglobin Concent 32.4 g/dl RDW Standard Deviation 55.1 fL RDW Coefficient of Variation 14.7 % Platelet Count 255 K/uL Mean Platelet Volume 10.2 fL Sodium Level 143 mmol/L Potassium Level 4.0 mmol/L Chloride Level 110 mmol/L Carbon Dioxide Level 26 mmol/L Anion Gap 7.0 mmol/L Blood Urea Nitrogen 13 mg/dl Creatinine 1.53 mg/dl Est Creatinine Clear Calc Drug Dose 35.9 ml/min Estimated GFR () 44.9 Estimated GFR (Non- 38.7 BUN/Creatinine Ratio 8.3 Random Glucose 95 mg/dl Calcium Level 8.0 mg/dl Test 05/13/17 06:16 05/13/17 06:38 05/13/17 07:22 05/13/17 07:46 Bedside Glucose 87 mg/dl 175 mg/dl 137 mg/dl 152 mg/dl Test 05/13/17 08:50 05/13/17 09:45 05/13/17 15:20 05/13/17 16:22 Bedside Glucose 273 mg/dl 310 mg/dl 259 mg/dl 221 mg/dl Test 05/13/17 17:21 05/13/17 18:04 05/13/17 19:17 05/13/17 20:16 Bedside Glucose 248 mg/dl 238 mg/dl 230 mg/dl 154 mg/dl Test 05/13/17 21:51 05/13/17 22:18 Bedside Glucose 103 mg/dl 86 mg/dl Assessment and Plan 51yo female with: 1. sepsis 2nd to RLL pneumonia - likely aspiration - 2nd to MRSA (grew on bronch culture). oral options for Rx - bactrim or zyvox; until renal function improves will use zyvox, then can consider changing to bactrim. plan for 10-14 day course of abx for the MRSA today is day # 9 of abx; $0 copay for the zyvox Continue aspiration precautions. Continue aggressive pulmonary toilet. 2. chronic hypoxic respiratory failure 2nd to pulmonary HTN, tracheal stenosis , and chronic cor pulmonale - chronic trach - stable O2 sats at this time on home O2 amount. 3. dysphagia with silent aspiration - nectar thick liquids recommended by speech. No PEG at this time. See discussion below. 4. T1DM - good control w/ insulin drip at this time. To transition back to her insulin pump tomorrow AM; pharmacy aware. 5. hypothyroidism - TSH compensated; cont synthroid. 6. DVT proph - lovenox 30mg daily. 7. dental elana with probable dental abscess - antibiotics for #1 above likely will suffice. Dentist referral after discharge. 8. tracheal stenosis s/p tracheostomy 9. pulmonary HTN / chronic cor pulmonale - noted. 10. FEN - thickened liquids per speech; mech soft diet as tolerated 11. acute kidney injury - continues to improve albeit slowly; no evidence of obstruction, renal stone, etc on CT abd/pelvis today. BMP in am once again. Suspect was due to recent sepsis. 12. anemia with minimal drop last 48 hours - simply repeat the Hb in am 13. left-sided abdominal pain - likely due to constipation and/or musculoskeletal. The pain is improved. 14. hypomagnesemia - replaced and now normal. 15. constipation - bowel regimen. 16. abnormal urinary tract/bladder on CT - UTI?? grew out scant yeast on urine cx, but latest u/a with budding yeast on micro as well. Diflucan 100mg po daily x 7 days nearly 80 minute discussion held with pt's mother, 2 sisters, and 3 administrators/directors from alf we discussed Valorie's current problems, recurrent admissions, declining health status (alf directors report ongoing decline overall over the last 12 months), aspiration, dysphagia diet, realistic chances of preventing frequent hospital stays, code status, POLST form, other options for care mother and 1 sister were in agreement; the other sister was upset and walked out of the meeting after this lengthy meeting the plan is for the mother/sister to discuss and try to complete the POLST form they are leaning towards DNR status they do NOT want artificial nutrition/PEG will ask Aileen from palliative care to help answer any other questions, assist with POLST completion, etc hopefully d/c tomorrow back to alf will transition off the insulin drip back to insulin pump in AM longer term plan is to observe Valorie on her mech soft/nectar thick liquids and hope she doesn't aspirate as much if she continues with frequent hospital stays and boughts of pneumonia, however , her mother may simply change her to hospice status all questions answered Continued [facility] stay due to: multiple IV medications needed, other (acute kidney injury, need for discussion with alf director on Saturday) Discharge planning: other (special needs home vs other )
[2017-05-14] MEDS: NYSTATIN PO SCH ×10 (05:51→11:58)
[2017-05-14] MEDS: [UNRECOGNIZED DRUG - OTHER] PO SCH ×10 (05:51→11:58)
[2017-05-14] MEDS: DIPHENHYDRAMINE HCL PO SCH ×10 (05:51→11:58)
[2017-05-14] MEDS: ORA SWEET PO SCH ×10 (05:51→11:58)
[2017-05-14] MEDS: LEVOTHYROXINE 150 MCG TAB PO SCH (05:51)
[2017-05-14 06:42] LABS: CREATININE 1.51 mg/dl (0.60-1.20); POTASSIUM 4.5 mmol/L (3.5-5.1)
[2017-05-14 07:33] VITALS: PULSE 69; O2SAT 98
[2017-05-14] MEDS: ALBUT/IPRATROP 3MG/0.5MG NEB 3 ML VIAL INH SCH ×2 (07:33→11:08)
[2017-05-14] MEDS: CITALOPRAM 40 MG TAB PO SCH (08:16)
[2017-05-14] MEDS: SALMETEROL XINAFOATE 50MCG 28 BLISTER INH INH SCH (08:16)
[2017-05-14] MEDS: CHOLECALCIFEROL 1000 INTER.UNIT TAB PO SCH (08:16)
[2017-05-14] MEDS: CALCIUM 600MG + VIT D 400 IU TAB PO SCH (08:16)
[2017-05-14 08:17] VITALS: BP 111/73; PULSE 70; TEMP 36.4; O2SAT 100
[2017-05-14] MEDS: GUAIFENESIN 600 MG TABCR PO SCH (08:17)
[2017-05-14] MEDS: FLUTICASONE HFA 110MCG INHALER INH SCH (08:17)
[2017-05-14] MEDS: POLYETHYLENE (MIRALAX) 17 GM PACK PO SCH (08:18)
[2017-05-14] MEDS: PANTOprazole SOD 40 MG TAB PO SCH (08:18)
[2017-05-14] MEDS: LINEZOLID 600 MG TAB PO SCH (08:18)
[2017-05-14] MEDS: CEROVITE ADV FORMULA TAB PO SCH (08:18)
[2017-05-14] MEDS ORDERED: FLUCONAZOLE 100 MG TAB PO SCH (09:00)
[2017-05-14] MEDS: INSULIN ASPART 100 UNITS/ML 3 ML PEN SC SCH ×2 (09:19→13:00)
--- NOTE | 2017-05-14 10:45 | Palliative Care Consultation ---
Consultation Date of Consultation: May 14, 2017. Requesting Physician: Dr. Sage Attending Physician: Dr. Sage Reason for Consultation: POLST from, supportive care History of Present Illness This 51 year old female patient with Downs Syndrome and type 1 diabetes was admitted to the hospital with sepsis 2/2 RLL pneumonia due to recurrent aspiration. She has had multiple recent readmissions with this aspiration. She is also a type 1 diabetic and has been well-managed over the years by her family and skilled nursing. Unfortunately, patient has tracheal stenosis and has had a tracheostomy for almost two decades, so this is not a new issue for her. Given patient's recent readmissions and possibility of decline, goals of care conversation was initiated with her family. They do not want the patient to suffer or to undergo any harmful or uncomfortable treatment. Palliative care is consulted to complete a POLST form with them and to provide support to patient and family. I met with the patient, her mother Negra, and sister Daija along with Dr. Dong. Patient is awake, alert and at her mental baseline. Patient is pleasant and smiling, in no distress. We had a lengthy discussion with patient' s family regarding code status, goals of care, progression of disease, and advance care planning. See plan below. Past Medical/Surgical History Medical History: Ambulatory dysfunction Anemia Asthma Bed wetting Depression Diabetic hypoglycemia Diabetic peripheral neuropathy associated with type 1 diabetes mellitus Esophageal reflux Generalized osteoarthritis of multiple sites History of bronchiectasis Hypothyroidism Hypoxia Insulin pump titration Mammogram abnormal Menopausal and perimenopausal disorder Morbid obesity Mucopurulent chronic bronchitis Muscle tension Obstructive sleep apnea Patent foramen ovale Renal insufficiency Skin rash Tracheobronchitis Trisomy 21, Down syndrome Urinary incontinence Vitamin D deficiency Herpes simplex type I infection Surgical History: Tracheostomy Aortic root aneurysm resection Bronchoscopy Thoracotomy Hand surgery Family History Two other close family members with Downs Syndrome Social History Smoking Status: Never Smoker History of Alcohol Use: No Drug Use: none Housing Status: assisted living (skilled nursing) Occupation Status: disabled Has a supportive mother, Ksenia Muñoz. Two sisters Daija and Warner. Review of Systems ENT: No trouble swallowing Respiratory: No cough, No shortness of breath Abdomen: No pain, No nausea, No vomiting limited ROS due to cognitive disability Allergies Coded Allergies: Cephalosporins (Verified Allergy, Intermediate, rash per mother, 05/05/17) TOLERATED ZOSYN IN PAST ADMISSION AND 05/17/15 Cefaclor (Verified Allergy, Unknown, HIVES, 05/05/17) TOLERATED ZOSYN IN PAST ADMISSION AND 05/17/15 Sertraline (Verified Allergy, Unknown, INTOLERANCE, 05/05/17) Medications Current Inpatient Medications Medications (Trade) Dose Ordered Sig/Rene Route Start Time Stop Time Status Last Admin Dose Admin Acetaminophen (Tylenol Tab) 650 mg Q4H PRN PO 05/05/17 11:00 06/04/17 10:59 05/12/17 21:42 650 MG Atorvastatin Calcium (Lipitor Tab) 10 mg HS PO 05/05/17 21:00 06/04/17 20:59 05/13/17 21:16 10 MG Citalopram Hydrobromide (celeXA TAB) 40 mg DAILY PO 05/06/17 09:00 06/05/17 08:59 05/14/17 08:16 40 MG Clotrimazole (Lotrimin 1% Crm) 1 appln TID PRN EXT 05/05/17 11:00 06/04/17 10:59 Cholecalciferol (Vitamin D Tab) 1,000 inter.unit DAILY PO 05/06/17 09:00 06/05/17 08:59 05/14/17 08:16 1,000 INTER.UNIT Fexofenadine HCl (Danielle Tab) 180 mg HS PO 05/05/17 21:00 06/04/17 20:59 05/13/17 21:16 180 MG Fluticasone Propionate (Flovent Hfa 110MCG Inhaler) 2 puffs AMHS INH 05/05/17 21:00 06/04/17 20:59 05/14/17 08:17 2 PUFFS Guaifenesin (Mucinex Contr Rel Tab) 600 mg Q12 PO 05/05/17 21:00 06/04/17 20:59 05/14/17 08:17 600 MG Ibuprofen (Motrin Tab) 600 mg TID PRN PO 05/05/17 11:00 06/04/17 10:59 05/06/17 08:52 600 MG Levothyroxine Sodium (Synthroid Tab) 150 mcg DAILYBB PO 05/06/17 06:00 06/05/17 05:59 05/14/17 05:51 150 MCG Montelukast Sodium (Singulair Tab) 10 mg HS PO 05/05/17 21:00 06/04/17 20:59 05/13/17 21:15 10 MG Multivitamins/ Minerals (Multivitamin W/ Minerals Tab) 1 tab QAM PO 05/06/17 09:00 06/05/17 08:59 05/14/17 08:18 1 TAB Promethazine HCl (Phenergan Tab) 12.5 mg Q8 PRN PO 05/05/17 11:00 06/04/17 10:59 Salmeterol Xinafoate (Serevent Diskus Inh) 1 puffs DAILY INH 05/06/17 09:00 06/05/17 08:59 05/14/17 08:16 1 PUFFS Calcium/Vitamin D (Caltrate Plus Tab) 1 tab TID PO 05/05/17 14:00 06/04/17 13:59 05/14/17 08:16 1 TAB Pantoprazole Sodium (Protonix Tab) 40 mg QAM PO 05/06/17 09:00 06/05/17 08:59 05/14/17 08:18 40 MG Miscellaneous Information (Order Awaiting Action) 1 ea QS N/A 05/05/17 16:00 06/04/17 15:59 05/09/17 08:00 1 EA Albuterol/ Ipratropium (Duoneb) 3 ml QIDR INH 05/05/17 12:00 06/04/17 11:59 05/14/17 07:33 3 ML Miscellaneous Information (Consult Glycemic Management Pharmacy) 1 ea UD PRN N/A 05/05/17 11:23 06/04/17 11:22 Albuterol/ Ipratropium (Duoneb) 3 ml Q2H PRN INH 05/05/17 13:00 06/04/17 12:59 05/06/17 02:35 3 ML Glucose (Glucose 40% Gel) 15-30 GRAMS 15 GRAMS... UD PRN PO 05/06/17 00:30 06/05/17 00:29 Glucose (Glucose Chew Tab) 4-8 Tablets 4 Tabl... UD PRN PO 05/06/17 00:30 06/05/17 00:29 Dextrose (Dextrose 50% 50ML Syringe) 25-50ML OF 50% DW IV FOR... UD PRN IV 05/06/17 00:30 06/05/17 00:29 05/13/17 06:25 25 ML Glucagon (Glucagon Inj) 1 mg UD PRN SQ 05/06/17 00:30 06/05/17 00:29 Insulin Human Regular 250 units/ Sodium Chloride 252.5 ml @ 0 mls/hr Q24H IV 05/07/17 10:00 06/06/17 09:59 05/14/17 10:16 1.4 MLS/HR Insulin Aspart (novoLOG ASPART) SLIDING SCALE PCHS SC 05/07/17 12:00 06/06/17 11:59 05/14/17 09:19 5 UNITS Polyethylene (Miralax Powder Packet) 17 gm BID PO 05/08/17 21:00 06/07/17 20:59 05/13/17 21:13 17 GM Enoxaparin Sodium (Lovenox Inj) 30 mg Q24H SC 05/09/17 21:00 06/04/17 20:59 05/13/17 21:18 30 MG Linezolid (Zyvox Tab) 600 mg BID PO 05/10/17 09:00 05/17/17 08:59 05/14/17 08:18 600 MG Nystatin/ Diphenhydramine HCl/Sucrose/ Microcrystalline Cellulose/ Dexamethasone/ Barcode ACHS PO 05/11/17 16:30 06/10/17 16:29 05/14/17 05:51 5 ML Fluconazole (Diflucan Tab) 100 mg QAM PO 05/14/17 09:00 05/19/17 08:59 05/14/17 08:18 100 MG Physical Exam Date Time Temp Pulse Resp B/P (MAP) Pulse Ox O2 Delivery O2 Flow Rate FiO2 05/14/17 08:17 36.4 70 18 111/73 (86) 100 2.0 05/14/17 07:33 69 16 98 Nasal Cannula 2.0 05/14/17 00:00 Nasal Cannula 2.0 05/13/17 23:26 37.0 73 18 95/62 (73) 100 Nasal Cannula 2.0 05/13/17 19:49 68 16 96 Nasal Cannula 2.0 05/13/17 19:28 36.9 70 20 111/73 (86) 100 Nasal Cannula 2.0 05/13/17 16:00 97 Nasal Cannula 2.0 05/13/17 15:44 74 16 97 Nasal Cannula 2.0 05/13/17 15:10 36.3 78 20 107/68 (81) 97 05/13/17 11:50 37.0 81 18 137/79 (98) 96 Room Air 05/13/17 11:10 71 16 97 Nasal Cannula 2.0 General Appearance: WD/WN, no apparent distress, + pertinent finding (Downs Syndrome appearance) ENT: hearing grossly normal Neck: supple, no JVD Respiratory: lungs clear, no respiratory distress, no accessory muscle use, + decreased breath sounds (slightly diminished bases) Cardiovascular: regular rate, rhythm, + systolic murmur, + normal peripheral pulses Abdomen: normal bowel sounds, non tender, soft Neurologic/Psychiatric: alert, normal mood/affect, oriented x 3 Skin: normal color Laboratory Results Last 24 Hours Test 05/13/17 15:20 05/13/17 16:22 05/13/17 17:21 05/13/17 18:04 Bedside Glucose 259 mg/dl 221 mg/dl 248 mg/dl 238 mg/dl Test 05/13/17 19:17 05/13/17 20:16 05/13/17 21:51 05/13/17 22:18 Bedside Glucose 230 mg/dl 154 mg/dl 103 mg/dl 86 mg/dl Test 05/13/17 22:31 05/13/17 22:49 05/13/17 23:50 05/14/17 00:00 Bedside Glucose 100 mg/dl 142 mg/dl 195 mg/dl 169 mg/dl Test 05/14/17 01:02 05/14/17 01:54 05/14/17 02:50 05/14/17 04:58 Bedside Glucose 174 mg/dl 172 mg/dl 169 mg/dl 152 mg/dl Test 05/14/17 05:58 05/14/17 09:10 05/14/17 10:11 Hemoglobin 8.2 g/dL Sodium Level 141 mmol/L Potassium Level 4.5 mmol/L Chloride Level 107 mmol/L Carbon Dioxide Level 27 mmol/L Anion Gap 7.0 mmol/L Blood Urea Nitrogen 12 mg/dl Creatinine 1.51 mg/dl Est Creatinine Clear Calc Drug Dose 36.3 ml/min Estimated GFR () 45.6 Estimated GFR (Non- 39.3 BUN/Creatinine Ratio 7.9 Random Glucose 131 mg/dl Calcium Level 8.0 mg/dl Bedside Glucose 220 mg/dl 242 mg/dl Assessment & Plan Problem list: RLL pneumonia- aspiration- recurrent Aspiration/dysphagia- chronic T1DM- insulin pump at home Downs Syndrome Goals of care POLST form completion Palliative care recs: -Patient is now DNR/DNI per the patient's mother Negra Muñoz. Patient's sister, Daija, is at bedside and also in agreement. -Goal is for patient to go back to her skilled nursing, likely today. -POLST form was completed as follows: DNR, limited additional interventions, abx if life can be prolonged, trial period of IVF but NO FEEDING TUBE. -After lengthy discussion, patient's family agrees that they are aware patient' s condition will slowly deteriorate/worsen. They know the aspiration and pneumonia will be chronic. For now, they are okay with patient coming to hospital for treatment, but would like to avoid ICU or anything aggressive/ invasive. -If patient worsens to the point that she does not get better when she comes to the hospital, they would want to pursue hospice care at that time and have patient stay at her skilled nursing. Dr. Dong and I made family aware that POLST form can always be changed based on goals of care. Thank you kindly for this consult. Please contact me with any further palliative care needs. Prolonged visit. Total time spent 100 minutes with >50% of time spent with patient and family at bedside discussing/counseling on goals of care. Supervising Physician Pt seen and examined along with PEDIATRIC PSYCHIATRIST. Family more comfortable regarding filling out POLST form after discussion regarding it's purpose to protect pt from interventions they do not want and not a directive for all her future care. Mother and sister in agreement of DNR, but treat if it would benefit pt. Discussed that at some future time, hospitalizations may no longer benefit pt and that would be the time to admit pt to Hospice. Discussed silent aspiration and chin tuck technique with pt and family. PE: alert, NAD , asking to go home Resp: on O2, unlabored CV: RR ABD: no pain Agree with above note , assessment and plan.
[2017-05-14 11:08] VITALS: PULSE 74; O2SAT 98
[2017-05-14] MEDS ORDERED: DFL100 PO (12:05)
[2017-05-14] MEDS ORDERED: MRLP17 PO (12:05)
[2017-05-14] MEDS ORDERED: LINE1TAB2 PO (12:05)
--- NOTE | 2017-05-14 12:11 | Discharge Instructions ---
Discharge Instructions Date of Service May 14, 2017. Admission Reason for Admission: Pneumonia Discharge Discharge Diagnosis / Problem: Aspiration pneumonia Discharge Goals Goal(s): Improve disease control, Diagnostic testing, Therapeutic intervention Activity Recommendations Activity Limitations: resume your previous activity Exercise/Sports Limitations: gradually increase as tolerated Shower/Bathe: no limitations . Instructions / Follow-Up Instructions / Follow-Up You were admitted with aspiration pneumonia and treated with antibiotics. You had a bronchoscopy to clean out mucus from your lungs. Please finish out the course of antibiotics and follow-up with your admissions gate attendant within 1-2 weeks. It is recommended that you follow a nectar thickened, mechanical soft diet to help prevent future aspiration. Your oxygen level should be on at all times at 2 L, and increase to 4 L with activity or exertion. You also need to see a dentist for possible cavity or infected tooth. Your kidney function is decreased slightly from normal-it is important that you not take ibuprofen or any other NSAIDs. You should also not take Lasix during this time unless you have significant weight gain as directed. Please have your blood work rechecked in 1 week with results to go to your primary care physician. You are also being treated with Diflucan for yeast in your urine-please do not take your atorvastatin until after you have completed with the course of Diflucan. Please follow-up with your primary care physician within 1-2 weeks. Current Hospital Diet Patient's current hospital diet: Diabetes Type 1 Diet Discharge Diet Recommended Diet: Diabetes Type 1 Diet Diet Texture: Mechanical Soft (ground) Liquid Consistency: Burgess Thick Procedures Procedures Performed: Bronchoscopy CT abdomen/pelvis Chest x-ray Videofluoroscopic swallow study Pending Studies Studies pending at discharge: no Laboratory Results Last 24 Hours Test 05/13/17 12:47 05/13/17 13:47 05/13/17 15:20 05/13/17 16:22 Bedside Glucose 277 mg/dl 175 mg/dl 259 mg/dl 221 mg/dl Test 05/13/17 17:21 05/13/17 18:04 05/13/17 19:17 05/13/17 20:16 Bedside Glucose 248 mg/dl 238 mg/dl 230 mg/dl 154 mg/dl Test 05/13/17 21:51 05/13/17 22:18 05/13/17 22:31 05/13/17 22:49 Bedside Glucose 103 mg/dl 86 mg/dl 100 mg/dl 142 mg/dl Test 05/13/17 23:50 05/14/17 00:00 05/14/17 01:02 05/14/17 01:54 Bedside Glucose 195 mg/dl 169 mg/dl 174 mg/dl 172 mg/dl Test 05/14/17 02:50 05/14/17 04:58 05/14/17 05:58 05/14/17 07:03 Bedside Glucose 169 mg/dl 152 mg/dl 145 mg/dl Hemoglobin 8.2 g/dL Sodium Level 141 mmol/L Potassium Level 4.5 mmol/L Chloride Level 107 mmol/L Carbon Dioxide Level 27 mmol/L Anion Gap 7.0 mmol/L Blood Urea Nitrogen 12 mg/dl Creatinine 1.51 mg/dl Est Creatinine Clear Calc Drug Dose 36.3 ml/min Estimated GFR () 45.6 Estimated GFR (Non- 39.3 BUN/Creatinine Ratio 7.9 Random Glucose 131 mg/dl Calcium Level 8.0 mg/dl Test 05/14/17 09:10 05/14/17 10:11 05/14/17 11:17 Bedside Glucose 220 mg/dl 242 mg/dl 233 mg/dl Hemoglobin A1c Test 02/26/17 11:24 Range/Units Estimated Average Glucose 258 mg/dl Hemoglobin A1c 10.6 H 4.5-5.6 % Medical Emergencies . Who to Call and When: Medical Emergencies: If at any time you feel your situation is an emergency, please call 911 immediately. . Non-Emergent Contact Non-Emergency issues call your: Primary Care Provider, Case Packer [employer] Sealer Call Non-Emergent contact if: you have a fever, temperature is above 101, you have any medication questions . . "Provider Documentation" section prepared by Monserrat Benson. . VTE Core Measure Inpt VTE Proph given/why not?: Enoxaparin (Lovenox)SQ
[2017-05-14 12:45] VITALS: BP 111/73; PULSE 74; TEMP 36.4; O2SAT 98
[2017-05-14] MEDS ORDERED: NovoLOG INSULIN PUMP SCH (13:00)
[2017-05-14] MEDS ORDERED: INSULIN ASPART 100 UNITS/ML VIAL SC PRN (13:30)
[2017-05-19] MEDS ORDERED: CITA40TA12 PO (14:13)
[2017-05-19] MEDS ORDERED: LINE1TAB2 PO (14:13)
[2017-05-19] MEDS ORDERED: FLUC100T PO (14:13)
[2017-05-19] MEDS ORDERED: FERR1TAB13 PO (14:20)
== END 2017-05-14 13:38 | disposition other institution (70) | DRG 853 ==
LOC: EDBD 08:22 → C.EDB 08:25 → C.2E 11:13 → ENRESERV 11:28 → C.MED 05-11 10:06 → ENRESERV 05-11 10:32
PROVIDERS: ADMIT Family Medicine; ATTEND Family Medicine
PROC: 0B9K8ZX Drainage of Right Lung, Via Natural or Artificial Opening Endoscopic, Diagnostic (ICD-10-PCS; principal; 2017-05-07 07:53)
DX: A41.9 Sepsis, unspecified organism (principal); J15.212 Pneumonia due to Methicillin resistant Staphylococcus aureus; J96.11 Chronic respiratory failure with hypoxia; N17.9 Acute kidney failure, unspecified; B37.49 Other urogenital candidiasis; Q21.1 Atrial septal defect; R13.10 Dysphagia, unspecified; K04.7 Periapical abscess without sinus; K02.9 Dental caries, unspecified; E83.42 Hypomagnesemia; K59.00 Constipation, unspecified; Q90.9 Down syndrome, unspecified; J39.8 Other specified diseases of upper respiratory tract; I27.29 Other secondary pulmonary hypertension; I50.9 Heart failure, unspecified; E10.42 Type 1 diabetes mellitus with diabetic polyneuropathy; D64.9 Anemia, unspecified; E03.9 Hypothyroidism, unspecified; J45.909 Unspecified asthma, uncomplicated; K21.9 Gastro-esophageal reflux disease without esophagitis; E55.9 Vitamin D deficiency, unspecified; F32.9 Major depressive disorder, single episode, unspecified; E66.01 Morbid (severe) obesity due to excess calories; Z51.81 Encounter for therapeutic drug level monitoring; Z79.899 Other long term (current) drug therapy; Z99.81 Dependence on supplemental oxygen; Z66 Do not resuscitate; Z93.0 Tracheostomy status; Z87.01 Personal history of pneumonia (recurrent); Z86.14 Personal history of Methicillin resistant Staphylococcus aureus infection; Z86.19 Personal history of other infectious and parasitic diseases; Z96.41 Presence of insulin pump (external) (internal); Z68.32 Body mass index [BMI] 32.0-32.9, adult; Z88.1 Allergy status to other antibiotic agents; Z88.8 Allergy status to other drugs, medicaments and biological substances; Z82.79 Family history of other congenital malformations, deformations and chromosomal abnormalities; Z82.49 Family history of ischemic heart disease and other diseases of the circulatory system

== ENCOUNTER → 2017-05-16 | Outpatient (CLI) | payer OTHER ==
[~2017-05-16] MED LIST changes: +DFL100 PO; +DOXY-300 PO; +ERGO500037 PO; +FERR1TAB13 PO; +FLUC100T PO; -IBUP600T44 PO; +LINE1TAB2 PO; -LVQ750 PO; -MCRK20 PO; +MRLP17 PO; -NVLNI SC; -PRED10TA PO; +[UNRECOGNIZED DRUG - CODE] PO; -[UNRECOGNIZED DRUG - CODE] PO
[2017-05-16 13:20] LABS: HEMATOCRIT 27.4 % (37-47); HEMOGLOBIN 8.8 g/dL (12.0-16.0); MEAN CELL VOLUME 103.4 fL (80-100); MEAN CORPUSCULAR HEMOGLOBIN 33.2 pg (25-34); MEAN CORPUSCULAR HGB CONC 32.1 g/dl (32-36); MEAN PLATELET VOLUME 10.3 fL (7.4-10.4); PLATELET COUNT 357 K/uL (130-400); RED CELL DISTRIBUTION WIDTH CV 14.3 % (11.5-14.5); RED CELL DISTRIBUTION WIDTH SD 53.7 fL (36.4-46.3); WHITE BLOOD COUNT 7.15 K/uL (4.8-10.8)
[2017-05-16 13:47] LABS: BLOOD UREA NITROGEN 15 mg/dl (7-18); CALCIUM 8.5 mg/dl (8.5-10.1); CARBON DIOXIDE 32 mmol/L (21-32); CREATININE 1.46 mg/dl (0.60-1.20); GLUCOSE 292 mg/dl (70-99); POTASSIUM 3.9 mmol/L (3.5-5.1); SODIUM 142 mmol/L (136-145)
[2017-05-16 13:56] LABS: HEMOGLOBIN A1C 8.8 % (4.5-5.6)
--- NOTE | 2017-05-16 14:21 | DIAGNOSTIC IMAGING REPORT ---
CHEST 2 VIEWS ROUTINE CLINICAL HISTORY: Cough. COMPARISON STUDY: Chest radiograph May 05, 2017. FINDINGS: A right subclavian Vjfhci-x-Pepm and tracheostomy tube are in place. There are mediastinal surgical clips. There is no pneumothorax. Small bilateral pleural effusions are noted. Right lower lung opacity persists. There has been increase in left lower lung and right midlung opacity. There is diffuse interstitial thickening. A right aortic arch is again noted. IMPRESSION: 1. Persistent right basilar opacity consistent with pneumonia. Increase in left basilar right midlung opacity which favors multifocal pneumonia. 2. Interval development of interstitial thickening which may reflect superimposed pulmonary edema or an infectious process. 3. Small bilateral pleural effusions. Electronically signed by: Manny Gorman M.D. 05/16/2017 2:19 PM Dictated Date/Time: 05/16/2017 2:17 PM
== END | disposition home or self-care (01) ==
LOC: C.LAB1850 12:23
PROVIDERS: ATTEND Family Medicine
DX: R05 Cough (principal); N18.9 Chronic kidney disease, unspecified; D64.9 Anemia, unspecified

== ENCOUNTER 2017-05-17 15:57 | Observation (INO) | payer OTHER ==
[~2017-05-17] VITALS: Ht 147.3 cm; Wt 64.6 kg
[~2017-05-17 15:57] MED LIST changes: -FERR1TAB13 PO; -FLUC100T PO; -SULF800T23 PO
[2017-05-17 16:45] LABS: BASO % 0.9 %; BASO ABS # 0.05 K/uL (0-0.2); EOS % 0.9 %; EOS ABS # 0.05 K/uL (0-0.5); HEMATOCRIT 25.9 % (37-47); HEMOGLOBIN 8.5 g/dL (12.0-16.0); IG# 0.04 K/uL (0.00-0.02); LYMPH % 17.2 %; LYMPH ABS # 0.97 K/uL (1.2-3.4); MEAN CORPUSCULAR HEMOGLOBIN 33.5 pg (25-34); MEAN CORPUSCULAR HGB CONC 32.8 g/dl (32-36); MEAN PLATELET VOLUME 10.1 fL (7.4-10.4); MONO % 8.9 %; NEUT % 71.4 %; NEUT ABS # 4.03 K/uL (1.4-6.5); PLATELET COUNT 333 K/uL (130-400); RED CELL DISTRIBUTION WIDTH CV 14.1 % (11.5-14.5); RED CELL DISTRIBUTION WIDTH SD 52.8 fL (36.4-46.3); WHITE BLOOD COUNT 5.64 K/uL (4.8-10.8)
[2017-05-17 16:54] LABS: INR 1.1 (0.9-1.1); PTT PATIENT 28.1 SECONDS (21.0-31.0)
[2017-05-17] MEDS ORDERED: SULF800T23 PO (16:54)
[2017-05-17] MEDS ORDERED: FLUC100T PO (16:54)
--- NOTE | 2017-05-17 17:04 | DIAGNOSTIC IMAGING REPORT ---
CHEST 2 VIEWS ROUTINE HISTORY: 51 years-old Female cough eval for pna acute cough and congestion with clinical concern for possible pneumonia COMPARISON: Chest radiograph 05/16/2017, 05/05/2017 and 05/01/2017 TECHNIQUE: PA and lateral views of the chest FINDINGS: Cardiac silhouette is again mildly enlarged, unchanged. Right subclavian Woatrp-n-Jxln catheter is stable in positioning. Tracheostomy cannula is unchanged overlying the midline terminating several centimeters superior to the level the nicolas. Surgical clips project over the upper mediastinum. There is no pneumothorax. Small right and trace left pleural effusions appear unchanged. There are persistent right greater than left bibasilar and right mid lung airspace opacities which appears stable to slightly worsened from comparison. Mild interstitial coarsening is unchanged. Bones appear grossly intact. IMPRESSION: 1. Stable to slightly worsened right greater than left bibasilar and right midlung alveolar opacities suggesting multifocal pneumonia. 2. Cardiomegaly with mild pulmonary vascular congestion. 3. Small right and trace left pleural effusions. The above report was generated using voice recognition software. It may contain grammatical, syntax or spelling errors. Electronically signed by: Trung Betts M.D. 05/17/2017 5:03 PM Dictated Date/Time: 05/17/2017 5:00 PM
[2017-05-17 17:06] LABS: CALCIUM 8.4 mg/dl (8.5-10.1); CREATININE 1.35 mg/dl (0.60-1.20); POTASSIUM 3.7 mmol/L (3.5-5.1)
[2017-05-17 17:34] LABS: INFLUENZA B ANTIGEN Neg for Influ B (NEG)
[2017-05-17] MEDS ORDERED: VANCOMYCIN 1GM/270ML NSS IV STA (17:48)
[2017-05-17] MEDS ORDERED: PHARMACY GLYCEMIC MGMT CONSULT STA (18:35)
[2017-05-17] MEDS ORDERED: PROMETHAZINE HCL 25 MG TAB PO PRN (18:45)
[2017-05-17] MEDS ORDERED: ACETAMINOPHEN 325 MG TAB PO PRN (18:45)
[2017-05-17] MEDS ORDERED: ALBUTEROL 0.083% NEBU SOLN 3 ML VIAL INH PRN (18:45)
[2017-05-17] MEDS ORDERED: GLUCOSE 5 GM CHEWABLE TABLET PO PRN (18:45)
[2017-05-17] MEDS ORDERED: ONDANSETRON INJ 2 MG/ML 2 ML VIAL IV PRN (18:45)
[2017-05-17] MEDS ORDERED: CLOTRIMAZOLE 1% CR 15 GM TUBE EXT PRN (18:45)
[2017-05-17] MEDS ORDERED: ALUMINUM/MAGNESIUM/SIMETH (MAALOX MAX) 30 ML UDC PO PRN (18:45)
[2017-05-17] MEDS ORDERED: MAGNESIUM HYDROXIDE SUSP 30 ML UDC PO PRN (18:45)
[2017-05-17] MEDS ORDERED: ALBUTEROL HFA 8 GM INHALER INH PRN (18:45)
[2017-05-17] MEDS ORDERED: INSULIN IV INFUSION PROTOCOL STA (18:47)
--- NOTE | 2017-05-17 18:54 | History and Physical ---
History & Physical Date & Time of Service: May 17, 2017 at 18:46 Chief Complaint: PNX Primary Care Physician: Vladimir Lucio M.D. 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 She has been finishing a course of zyvox for the MRSA pneumonia. The veterans employment representative from the retirement denies any specific issues or complaints; namely, she has not had any fever, loss of appetite, choking spells/dysphagia spells, increasing o2 requirement, or sputum production by mouth or via her trach. She has been in good spirits. Glycemic control with her pump has been acceptable. Apparently she was seen in the outpatient clinic for hospital follow-up and had a chest x-ray done. The retirement was called today with the results of the chest x-ray which showed "slightly" worsening bibasilar infiltrates (R>L). Her air quality chemist recommended referral to the ER due to the chest x-ray results. In the ER she received a dose of IV vancomycin and we were contacted for admission. Past Medical/Surgical History PMH: 1. Down's Syndrome 2. DMI on insulin pump 3. tracheal stenosis s/p tracheostomy 4. multiple lung infections/recurrent PNA 5. pulmonary HTN 6. chronic cor pulmonale/right-sided CHF 7. hypothyroidism 8. CAMILLA 9. h/o PFO 10. 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 Dental caries/suspected tooth abscess 12. GERD 13. chronic hypoxic respiratory failure on home O2 14. anemia of chronic disease 15. Constipation 16. recent candidal UTI PSH: 1. tracheostomy placement 2. arterial switch procedure at for transposition of the great arteries? 3. port-o-cath placement 4. multiple bronchoscopies Family History Myocardial infarction mother - CAD s/p [place] maternal cousin with Down's Syndrome 2nd maternal cousin with Down's Syndrome multiple paternal family members with type 1/type 2 DM Social History Smoking Status: Never Smoker Smokeless Tobacco Use: No Alcohol Use: none Drug Use: none Marital Status: single Housing status: assisted living ([facility] Occupational Status: disabled Immunizations History of Influenza Vaccine: N/A Influenza Vaccine Date: Dec 18, 2005 History of Tetanus Vaccine?: Unknown Tetanus Immunization Date: May 22, 2001 History of Pneumococcal: Yes Pneumococcal Date: August 15, 2012 History of Hepatitis B Vaccine: No Allergies Coded Allergies: Cephalosporins (Verified Allergy, Intermediate, rash per mother, 05/17/17) TOLERATED ZOSYN IN PAST ADMISSION AND 05/17/15 Cefaclor (Verified Allergy, Unknown, HIVES, 05/17/17) TOLERATED ZOSYN IN PAST ADMISSION AND 05/17/15 Sertraline (Verified Allergy, Unknown, INTOLERANCE, 05/17/17) Home Medications Scheduled Albuterol Sulf (Proventil 0.083% 2.5MG/3ML), 2.5 MG INH TID Atorvastatin (Lipitor), 10 MG PO HS Calcium Carbonate-Cholecalcife (Oyster Shell Calcium + D), 1 TAB PO TID Citalopram Hydrobromide (Celexa), 40 MG PO DAILY Ergocalciferol (Vitamin D 10835 Unit), 50,000 UNIT PO WK Fexofenadine Hcl (Danielle), 180 MG PO HS Fluconazole (Diflucan), 100 MG PO QAM Fluticasone Propionate (Flovent Hfa), 2 PUFFS INH AMHS Guaifenesin Ext Rel (Mucinex Ext Rel), 600 MG PO Q12 Home O2 Therapy (Oxygen), 4 LITERS NA PRN Home O2 Therapy (Oxygen), 2 LITERS NA DIRECTED Insulin Aspart (novoLOG INSULIN PUMP ), N/A UD Levothyroxine Sodium (Levothyroxine Sodium), 150 MCG PO QAM Linezolid (Linezolid), 600 MG PO BID Montelukast Sodium (Singulair), 10 MG PO HS Multiple Vitamins W/ Minerals (Therems M), 1 TAB PO QAM Omeprazole (Prilosec), 20 MG PO QAM Polyethylene (Miralax), 17 GM PO QAM Salmeterol Xinafoate (Serevent Diskus), 1 PUFF INH AMPM Sodium Chloride (Gu Irrigant) (Sodium Chloride 0.9%), DAILY Sodium Fluoride (Dental) (Phos-Flur Ortho Defense), 0.5 OZ PO HS Sulfa/Trimethoprim (Bactrim Ds 800MG/160MG), 1 TAB PO HS Zinc Sulfate (Zinc Sulfate), 220 MG PO AMHS Scheduled PRN Acetaminophen (Tylenol), 1,000 MG PO Q6H PRN for GENERAL DISCOMFORT Albuterol Hfa (Ventolin Hfa), 2 PUFFS INH QID PRN for Shortness of Breath Albuterol Sulf (Proventil 0.083% 2.5MG/3ML), 2.5 MG INH TID PRN for CHEST CONGESTION Clotrimazole (Topical) (Anti-Fungal), 1 APPLN TOP TID PRN for RASH Dextrose (Diabetic Use) (Insta-Glucose), 1 TUBE PO DIRECTED PRN for LOW BLOOD SUGAR Furosemide (Lasix), 20 MG PO DAILY PRN for WEIGHT GAIN Glucagon (Glucagon Emergency Kit), 1 MG IM for UNRESPONSIVE Glucose-Vitamin C (Dex4), 1 TAB PO DAILY PRN for LOW BLOOD SUGARS Insulin Glargine (Lantus), 0 SC UD PRN for PUMP MALFUNCTION Promethazine (Phenergan ), 12.5 MG PO Q8 PRN for Nausea or Vomiting Review of Systems Constitutional: No fever, No fatigue ENT: + problem reported (had dental pain/jaw pain during the previous admission - now resolved), No nasal symptoms, No trouble swallowing (no obvious dysphagia ) Respiratory: + cough, No wheezing, No shortness of breath, No hemoptysis Cardiovascular: No edema Abdomen: + pain (occasional; chronic), No nausea, No vomiting, No diarrhea, No GI bleeding Genitourinary - Female: + urinary incontinence Neurologic: No paralysis Psychiatric: No insomnia Endocrine: No fatigue Hematologic / Lymphatic: No abnormal bleeding/bruising Integumentary: No rash Physical Exam Vital Signs Date Time Temp Pulse Resp B/P (MAP) Pulse Ox O2 Delivery O2 Flow Rate FiO2 05/17/17 17:27 56 25 96 05/17/17 16:57 62 16 98 05/17/17 16:27 61 17 96 05/17/17 16:06 60 05/17/17 16:01 37.0 67 22 103/66 86 Room Air 05/17/17 16:00 103/66 General Appearance: no apparent distress, + pertinent finding (similing, looks even better than during my previous exam this past Saturday; Down's syndrome features) Head: atraumatic Eyes: PERRL ENT: + pertinent finding (MMM, no thrush; lips very dry, however) Neck: supple, no adenopathy, no JVD, + pertinent finding (trach in place, clean , no drainage/secretions) Respiratory/Chest: no respiratory distress, no accessory muscle use, + rales ( right base), + pertinent finding (very good airation; no rhonchi, wheeze, or poor air movement ) Cardiovascular: regular rate, rhythm, no gallop, normal peripheral pulses, + systolic murmur (1/6 LLSB) Abdomen/GI: normal bowel sounds, non tender, soft, no organomegaly Back: normal inspection Extremities/Musculoskelatal: + pedal edema (trace b/l ) Neurologic/Psych: no motor/sensory deficits, alert Skin: no rash, + pertinent finding (port, right chest, clean/nontender; insulin pump in place as well ) Diagnostics Laboratory Results Results Past 24 Hours Test 05/17/17 16:25 05/17/17 16:30 05/17/17 16:39 Range/Units White Blood Count 5.64 4.8-10.8 K/uL Red Blood Count 2.54 4.2-5.4 M/uL Hemoglobin 8.5 12.0-16.0 g/dL Hematocrit 25.9 37-47 % Mean Corpuscular Volume 102.0 80-100 fL Mean Corpuscular Hemoglobin 33.5 25-34 pg Mean Corpuscular Hemoglobin Concent 32.8 32-36 g/dl Platelet Count 333 130-400 K/uL Mean Platelet Volume 10.1 7.4-10.4 fL Neutrophils (%) (Auto) 71.4 % Lymphocytes (%) (Auto) 17.2 % Monocytes (%) (Auto) 8.9 % Eosinophils (%) (Auto) 0.9 % Basophils (%) (Auto) 0.9 % Neutrophils # (Auto) 4.03 1.4-6.5 K/uL Lymphocytes # (Auto) 0.97 1.2-3.4 K/uL Monocytes # (Auto) 0.50 0.11-0.59 K/uL Eosinophils # (Auto) 0.05 0-0.5 K/uL Basophils # (Auto) 0.05 0-0.2 K/uL RDW Standard Deviation 52.8 36.4-46.3 fL RDW Coefficient of Variation 14.1 11.5-14.5 % Immature Granulocyte % (Auto) 0.7 % Immature Granulocyte # (Auto) 0.04 0.00-0.02 K/uL Toxic Granulation 1+ Toxic Vacuolation 1+ Large Platelets 1+ Prothrombin Time 11.7 9.0-12.0 SECONDS Prothromb Time International Ratio 1.1 0.9-1.1 Activated Partial Thromboplast Time 28.1 21.0-31.0 SECONDS Partial Thromboplastin Ratio 1.1 Sodium Level 141 136-145 mmol/L Potassium Level 3.7 3.5-5.1 mmol/L Chloride Level 103 98-107 mmol/L Carbon Dioxide Level 31 21-32 mmol/L Anion Gap 7.0 3-11 mmol/L Blood Urea Nitrogen 13 7-18 mg/dl Creatinine 1.35 0.60-1.20 mg/dl Est Creatinine Clear Calc Drug Dose 44.4 ml/min Estimated GFR () 52.2 Estimated GFR (Non- 45.0 BUN/Creatinine Ratio 9.7 10-20 Random Glucose 273 70-99 mg/dl Calcium Level 8.4 8.5-10.1 mg/dl Influenza Type A Antigen Neg for Influ A NEG Influenza Type B Antigen Neg for Influ B NEG Bedside Lactic Acid Venous 1.49 0.90-1.70 mmol/L Microbiology Results 05/17/17 Blood Culture, Received Pending 05/17/17 Blood Culture, Received Pending Diagnostic Radiology cxr - IMPRESSION: 1. Stable to slightly worsened right greater than left bibasilar and right midlung alveolar opacities suggesting multifocal pneumonia. 2. Cardiomegaly with mild pulmonary vascular congestion. 3. Small right and trace left pleural effusions. Impression Assessment and Plan 51yo female with Down's Syndrome, long-standing T1DM on insulin pump, chronic hypoxic respiratory failure on home O2 (2 L at rest, 4 L w/ activity), dysphagia /aspiration, and tracheostomy status - recent hospital admission for RLL MRSA aspiration pneumonia - discharged on 05/14/17 back to her retirement. She has been finishing a course of zyvox for the MRSA pneumonia. She presents today because an outpatient chest x-ray yesterday showed worsening b/l infiltrates. 1. recent RLL aspiration pneumonia 2nd to MRSA - during the previous hospitalization she was treated w/ broad-spectrum IV antibiotic therapy and ultimately transitioned to zyvox for the MRSA as this pathogen grew from her bronchoscopy culture. She remained clinically stable on the zyvox and had no obvious dysphagia while on nectar thick liquids at the conclusion of her recent stay. Although her chest x-ray today shows "slightly" worsening infiltrates she looks very good today. She has no fever, leukocytosis, loss of appetite, worsening O2 requirement, trach secretions, or dyspnea. The chest x-ray may simply represent additional pneumonitis from silent aspiration following her recent hospitalization but she may not have actual recurrent pneumonia/active infection. Given how good she looks today and how well she sounds I would be inclined to simply observe her overnight. Will continue the zyvox for the recent MRSA pneumonia but will not add or broaden her antibiotics at this time unless there is clinical worsening. Will have speech re-evaluate tomorrow to ensure the nectar thick liquids are adequate. Will check procalcitonin and crp to see if she has a new infection brewing despite her overall clinical picture. 2. T1DM on insulin pump - historically we have asked pharmacy to manage her DM with an insulin infusion, then on the AM of discharge we transition back to her pump. She has no evidence of DKA at this time. 3. hypothyroidism - recent TSH wnl; cont synthroid. 4. chronic hypoxic resp failure on home O2 with trach status - routine trach care, O2 via NC, mucinex, nebs. 5. tracheal stenosis s/p trach - as above in #4 above. 6. DVT proph - lovenox 40mg daily. 7. recent candidal UTI - continue diflucan; repeat u/a and urine cx for test of cure. 8. recent acute kidney injury - creatinine continues to improve. 9. FEN - mech soft diet/nectar thick liquids; saline lock IV; lytes in AM. 10. anemia - Hb was 8.2 at discharge; now is 8.5. Stable. mother updated at bedside DNR Advanced Directives Existing Advance Directive: Yes Existing Living Will: Yes Existing Power of Regional Operations Director: Yes Existing Health Care Proxy: Yes Resuscitation Status DNR VTE Prophylaxis Will order VTE Prophylaxis: Yes Social Service Consult Lives in Personal Care (retirement) Note patient to be placed on observation status - time about 60 minutes
[2017-05-17] MEDS ORDERED: MODERATE STRESS LEVEL ONE (19:00)
[2017-05-17] MEDS ORDERED: IV FLUIDS COMPLETED PRN (19:00)
[2017-05-17] MEDS ORDERED: INSULIN PROTOCOL GOAL RANGE ONE (19:00)
[2017-05-17] MEDS ORDERED: DC ALL PREVIOUSLY ORDERED DIABETES MEDS ONE (19:00)
[2017-05-17] MEDS ORDERED: INSULIN ASPART 100 UNITS/ML 3 ML PEN SC SCH (19:00)
[2017-05-17] MEDS ORDERED: GLUCOSE 40% GEL 15 GM TUBE PO PRN (20:30)
[2017-05-17] MEDS ORDERED: GLUCOSE 10 TABS/TUBE PO PRN (20:30)
[2017-05-17] MEDS ORDERED: DEXTROSE 50% 50 ML SYR IV PRN (20:30)
[2017-05-17] MEDS ORDERED: GLUCAGON FOR INJ 1 MG VIAL SQ PRN (20:30)
--- NOTE | 2017-05-17 20:37 | EMERGENCY ROOM VISIT NOTE ---
History Report prepared by Bryce: Jermaine Tavarez Under the Supervision of: Dr. Raz Fulton M.D. First contact with patient: 16:00 Chief Complaint: REFERRED BY DOCTOR Stated Complaint: PNX History of Present Illness The patient is a 51 year old female who presents to the Emergency Room with complaints of persistent pneumonia for one month. The patient was recently admitted one month ago for PNA and recurrent aspirations. Per caregiver, the patient had an XR done two days ago, though the caregiver is unsure who performed the imaging. The followup showed the pneumonia was progressing. Per caregiver, the patient was discussed with her veneer stapler today, who recommended she come to the ED for further evaluation. Per caregiver, the patient denies any shortness of breath, though has increased coughing. She denies any fevers. The caregiver is unsure if the patient has been vomiting. I spoke with Alicia via phone, she identified herself as the planning supervisor of the [facility]. She stated the patient had an XR performed by Dr. Lucio yesterday , which showed worsening PNA. She also stated that Dr. Salas, veneer stapler recommend the patient come to the ED for evaluation. The patient is taking Doxycycline and Linezolid. The patient is always on 2L oxygen via NC. She is on 4 L oxygen when she is exerting herself. HPI limited secondary to patient's developmental delay. 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 Past Medical & Surgical Medical Problems: (1) ASTHMA, UNSPECIFIED (2) CONGESTIVE HEART FAILURE (3) DIAB UVALDO WO COMPL, TYPE I [JUVENILE TYPE], NOT UNCNTRLD (4) DOWN'S SYNDROME (5) Elevated white blood cell count (6) Hypoglycemia associated with diabetes (7) Hypoglycemia associated with diabetes (8) Seizure-like activity (9) SOB (shortness of breath) Family History Myocardial infarction Social History Smoking Status: Never Smoker Smokeless Tobacco Use: No Alcohol Use: none Drug Use: none Marital Status: single Housing Status: other ([facility]) Occupation Status: disabled Current/Historical Medications Scheduled Albuterol Sulf (Proventil 0.083% 2.5MG/3ML), 2.5 MG INH TID Atorvastatin (Lipitor), 10 MG PO HS Calcium Carbonate-Cholecalcife (Oyster Shell Calcium + D), 1 TAB PO TID Citalopram Hydrobromide (Celexa), 40 MG PO DAILY Ergocalciferol (Vitamin D 52030 Unit), 50,000 UNIT PO WK Fexofenadine Hcl (Danielle), 180 MG PO HS Fluconazole (Diflucan), 100 MG PO QAM Fluticasone Propionate (Flovent Hfa), 2 PUFFS INH AMHS Guaifenesin Ext Rel (Mucinex Ext Rel), 600 MG PO Q12 Home O2 Therapy (Oxygen), 4 LITERS NA PRN Home O2 Therapy (Oxygen), 2 LITERS NA DIRECTED Insulin Aspart (novoLOG INSULIN PUMP ), N/A UD Levothyroxine Sodium (Levothyroxine Sodium), 150 MCG PO QAM Linezolid (Linezolid), 600 MG PO BID Montelukast Sodium (Singulair), 10 MG PO HS Multiple Vitamins W/ Minerals (Therems M), 1 TAB PO QAM Omeprazole (Prilosec), 20 MG PO QAM Polyethylene (Miralax), 17 GM PO QAM Salmeterol Xinafoate (Serevent Diskus), 1 PUFF INH AMPM Sodium Chloride (Gu Irrigant) (Sodium Chloride 0.9%), DAILY Sodium Fluoride (Dental) (Phos-Flur Ortho Defense), 0.5 OZ PO HS Sulfa/Trimethoprim (Bactrim Ds 800MG/160MG), 1 TAB PO HS Zinc Sulfate (Zinc Sulfate), 220 MG PO AMHS Scheduled PRN Acetaminophen (Tylenol), 1,000 MG PO Q6H PRN for GENERAL DISCOMFORT Albuterol Hfa (Ventolin Hfa), 2 PUFFS INH QID PRN for Shortness of Breath Albuterol Sulf (Proventil 0.083% 2.5MG/3ML), 2.5 MG INH TID PRN for CHEST CONGESTION Clotrimazole (Topical) (Anti-Fungal), 1 APPLN TOP TID PRN for RASH Dextrose (Diabetic Use) (Insta-Glucose), 1 TUBE PO DIRECTED PRN for LOW BLOOD SUGAR Furosemide (Lasix), 20 MG PO DAILY PRN for WEIGHT GAIN Glucagon (Glucagon Emergency Kit), 1 MG IM for UNRESPONSIVE Glucose-Vitamin C (Dex4), 1 TAB PO DAILY PRN for LOW BLOOD SUGARS Insulin Glargine (Lantus), 0 SC UD PRN for PUMP MALFUNCTION Promethazine (Phenergan ), 12.5 MG PO Q8 PRN for Nausea or Vomiting Allergies Coded Allergies: Cephalosporins (Verified Allergy, Intermediate, rash per mother, 05/17/17) TOLERATED ZOSYN IN PAST ADMISSION AND 05/17/15 Cefaclor (Verified Allergy, Unknown, HIVES, 05/17/17) TOLERATED ZOSYN IN PAST ADMISSION AND 05/17/15 Sertraline (Verified Allergy, Unknown, INTOLERANCE, 05/17/17) Physical Exam Vital Signs Date Time Temp Pulse Resp B/P (MAP) Pulse Ox O2 Delivery O2 Flow Rate FiO2 05/17/17 17:27 56 25 96 05/17/17 16:57 62 16 98 05/17/17 16:27 61 17 96 05/17/17 16:06 60 05/17/17 16:01 37.0 67 22 103/66 86 Room Air 05/17/17 16:00 103/66 Physical Exam Constitutional: Vital signs reviewed. Eyes: Pupils are equal round reactive to light. Conjunctiva are noninjected. ENT: Pharynx is clear without erythema or exudate. Mucous membranes are moist. Neck supple without meningeal signs. Tracheostomy, no signs of infection or drainage. Respiratory:Scattered rhonchi. Breath sounds are equal bilaterally. Cardiovascular: Regular rate and rhythm. No rubs or gallops. GI: Soft, nondistended and nontender. Bowel sounds are present. Musculoskeletal: No peripheral edema. No lower extremity tenderness. Integumentary: No cyanosis. Neurological: The patient is awake and alert. No focal deficits. Psychiatric: Normal affect. Medical Decision & Procedures ER Provider Diagnostic Interpretation: Radiology results as stated below per my review and the radiologist's interpretation: CHEST 2 VIEWS ROUTINE HISTORY: 51 years-old Female cough eval for pna acute cough and congestion with clinical concern for possible pneumonia COMPARISON: Chest radiograph 05/16/2017, 05/05/2017 and 05/01/2017 TECHNIQUE: PA and lateral views of the chest FINDINGS: Cardiac silhouette is again mildly enlarged, unchanged. Right subclavian Cswpid-e-Biyk catheter is stable in positioning. Tracheostomy cannula is unchanged overlying the midline terminating several centimeters superior to the level the nicolas. Surgical clips project over the upper mediastinum. There is no pneumothorax. Small right and trace left pleural effusions appear unchanged. There are persistent right greater than left bibasilar and right mid lung airspace opacities which appears stable to slightly worsened from comparison. Mild interstitial coarsening is unchanged. Bones appear grossly intact. IMPRESSION: 1. Stable to slightly worsened right greater than left bibasilar and right midlung alveolar opacities suggesting multifocal pneumonia. 2. Cardiomegaly with mild pulmonary vascular congestion. 3. Small right and trace left pleural effusions. The above report was generated using voice recognition software. It may contain grammatical, syntax or spelling errors. Electronically signed by: Trung Betts M.D. 05/17/2017 5:03 PM Dictated Date/Time: 05/17/2017 5:00 PM Laboratory Results 05/17/17 16:25 Red Blood Count 2.54, Mean Corpuscular Volume 102.0, Mean Corpuscular Hemoglobin 33.5, Mean Corpuscular Hemoglobin Concent 32.8, Mean Platelet Volume 10.1, Neutrophils (%) (Auto) 71.4, Lymphocytes (%) (Auto) 17.2, Monocytes (%) ( Auto) 8.9, Eosinophils (%) (Auto) 0.9, Basophils (%) (Auto) 0.9, Neutrophils # ( Auto) 4.03, Lymphocytes # (Auto) 0.97, Monocytes # (Auto) 0.50, Eosinophils # ( Auto) 0.05, Basophils # (Auto) 0.05 05/17/17 16:25 Test 05/17/17 16:25 05/17/17 16:30 05/17/17 16:39 White Blood Count 5.64 K/uL (4.8-10.8) Red Blood Count 2.54 M/uL (4.2-5.4) Hemoglobin 8.5 g/dL (12.0-16.0) Hematocrit 25.9 % (37-47) Mean Corpuscular Volume 102.0 fL (80-100) Mean Corpuscular Hemoglobin 33.5 pg (25-34) Mean Corpuscular Hemoglobin Concent 32.8 g/dl (32-36) Platelet Count 333 K/uL (130-400) Mean Platelet Volume 10.1 fL (7.4-10.4) Neutrophils (%) (Auto) 71.4 % Lymphocytes (%) (Auto) 17.2 % Monocytes (%) (Auto) 8.9 % Eosinophils (%) (Auto) 0.9 % Basophils (%) (Auto) 0.9 % Neutrophils # (Auto) 4.03 K/uL (1.4-6.5) Lymphocytes # (Auto) 0.97 K/uL (1.2-3.4) Monocytes # (Auto) 0.50 K/uL (0.11-0.59) Eosinophils # (Auto) 0.05 K/uL (0-0.5) Basophils # (Auto) 0.05 K/uL (0-0.2) RDW Standard Deviation 52.8 fL (36.4-46.3) RDW Coefficient of Variation 14.1 % (11.5-14.5) Immature Granulocyte % (Auto) 0.7 % Immature Granulocyte # (Auto) 0.04 K/uL (0.00-0.02) Toxic Granulation 1+ Toxic Vacuolation 1+ Large Platelets 1+ Prothrombin Time 11.7 SECONDS (9.0-12.0) Prothromb Time International Ratio 1.1 (0.9-1.1) Activated Partial Thromboplast Time 28.1 SECONDS (21.0-31.0) Partial Thromboplastin Ratio 1.1 Anion Gap 7.0 mmol/L (3-11) Est Creatinine Clear Calc Drug Dose 44.4 ml/min Estimated GFR () 52.2 Estimated GFR (Non- 45.0 BUN/Creatinine Ratio 9.7 (10-20) Calcium Level 8.4 mg/dl (8.5-10.1) C-Reactive Protein 4.44 mg/dl (0-0.29) Procalcitonin 0.14 ng/ml (0-0.5) Influenza Type A Antigen Neg for Influ A (NEG) Influenza Type B Antigen Neg for Influ B (NEG) Bedside Lactic Acid Venous 1.49 mmol/L (0.90-1.70) Laboratory results as reviewed by me. Medications Administered Medications (Trade) Dose Ordered Sig/Rene Route Start Time Stop Time Status Last Admin Dose Admin Vancomycin HCl (Vancomycin 1gm/ 270ml Nss) 1 gm NOW STAT IV 05/17/17 17:48 05/17/17 17:49 DC 05/17/17 18:37 1 GM ED Course 1605: The patient was evaluated in room C9. A complete history and physical exam was performed. 1636: I spoke with Dr. Lucio [facility] P[facility]. We discussed the patient's case. He states that his PA saw the patient yesterday. He states the Longterm felt the patient was getting worse. He notes that Isra Mandujano recommended the patient be evaluated in the ED. 174: Ordered Vancomycin 1 gm IV 1650: I spoke with HILARIO Chavez pulmonology. We discussed the patient's case. He was told she was clinically doing worse, so he sent her here. He states that If she looks well, she can go back to the Longterm. 174: [facility] We discussed the patient's case. The patient will be evaluated by the [facility] for further management. 1750: I reassessed the patient at this time. I spoke with the patient's mother. I discussed the results and treatment plan with the patient's mother. I answered all pertaining questions that she had. She expressed understanding and verbalized agreement. The patient will be further evaluated. Medical Decision This is a 51-year-old female presents with worsening pneumonia on chest x-ray. I did perform a limited focused review of portions of the patient's old chart on the electronic medical record. The patient was admitted last month for PNA and recurrent aspirations. She has a history of multiple admissions for this. She was seen by palliative care and the family agreed to a DNR with limited additional interventions and antibiotics if life can be prolonged. She had a Chest XR yesterday, which showed persistent right-sided PNA and increased in left basilar. Right-mid lung opacity which favors multifocal PNA. I did evaluate the patient as noted above. I did obtain history from the patient as well as her caregiver and the planning supervisor [facility]. IV access was established. The patient was placed on a continuous monitoring specialist. I did order and personally review the patient's chest x-ray as described above. I did order and review the patient's blood work as noted in the electronic medical record. Her white blood cell count is not elevated. Lactic acid is within normal limits. She has chronic anemia. Flu testing was negative. I did discuss the case with Dr. Lucio her primary care physician. He stated that he did not see her and recommended I speak to Isra Mandujano. I did speak to Isra Mandujano who recommended placing the patient on vancomycin because of her progressive worsening pneumonia on chest x-ray today as well as her history of MRSA. I did treat the patient with IV vancomycin. I did discuss case with the hospitalist and caser in. I did discuss the test results with the patient and her mother. Medication Reconcilliation Current Medication List: was personally reviewed by me Blood Pressure Screening Patient's blood pressure: Normal blood pressure Consults Time Called: 1626 Consulting Physician: MANDO Hernandez PCP Returned Call: 1636 I spoke with MANDO Hernandez PCP. We discussed the patient's case. He states that his PA saw the patient yesterday. He states the Longterm felt the patient was getting worse. He notes that Isra Mandujano recommended the patient be evaluated in the ED. Additional Consults: Time Called: 1640 Consulted Physician: HILARIO Chavez pulmonology Returned Call: 1650 Additional Comments: I spoke with HILARIO Chavez pulmonology. We discussed the patient's case. He was told she was clinically doing worse, so he sent her here. He states that If she looks well, she can go back to the Longterm. Time Called: 1747 Consulted Physician: MANDO Ahumada hospitalist Returned Call: 1749 Additional Comments: I spoke with MANDO Ahumada hospitalist. We discussed the patient's case. The patient will be evaluated by the [facility] for further management. Impression Primary Impression: Multifocal pneumonia Additional Impression: Anemia Scribe Attestation The scribe's documentation has been prepared under my direct and personally reviewed by me in its entirety. I confirm that the note above accurately reflects all work, treatment, procedures, and medical decision making performed by me. Departure Information Dispostion Being Evaluated By Hospitalist Vladimir Russ M.D. (PCP) Patient Instructions My [facility] Problem Qualifiers Additional Impression: Anemia Anemia type: unspecified type Qualified Codes: D64.9 - Anemia, unspecified
[2017-05-17 20:47] VITALS: BP 134/76; PULSE 58; TEMP 36.8; O2SAT 95
[2017-05-17] MEDS: FLUTICASONE HFA 110MCG INHALER INH SCH (21:33)
[2017-05-17] MEDS: SALMETEROL XINAFOATE 50MCG 28 BLISTER INH INH SCH (21:34)
[2017-05-17] MEDS: ENOXAPARIN 40 MG/0.4 ML SYR SQ SCH (21:35)
[2017-05-17] MEDS: GUAIFENESIN 600 MG TABCR PO SCH (21:36)
[2017-05-17] MEDS: ATORVASTATIN 10 MG TAB PO SCH (21:37)
[2017-05-17] MEDS: LINEZOLID 600 MG TAB PO SCH (21:37)
[2017-05-17] MEDS: FEXOFENADINE HCL 180 MG TAB PO SCH (21:38)
[2017-05-17] MEDS: MONTELUKAST SOD 10 MG TAB PO SCH (21:38)
[2017-05-17 21:39] VITALS: PULSE 61; O2SAT 98
[2017-05-17] MEDS: ALBUTEROL 0.083% NEBU SOLN 3 ML VIAL INH SCH (21:39)
[2017-05-17] MEDS: INSULIN ASPART 100 UNITS/ML 3 ML PEN SC SCH (21:47)
[2017-05-17 21:50] VITALS: Ht 147.3 cm; Wt 64.6 kg
[2017-05-18] VITALS (8 sets, daily range): BP systolic 105–130; BP diastolic 72–82; PULSE 56–79; TEMP 36.6–37.2; O2SAT 90–97
[2017-05-18] MEDS: ALBUTEROL 0.083% NEBU SOLN 3 ML VIAL INH SCH ×3 (01:55→19:30)
[2017-05-18] MEDS: INSULIN ASPART 100 UNITS/ML 3 ML PEN SC SCH ×7 (02:27→21:52)
[2017-05-18] MEDS: LEVOTHYROXINE 150 MCG TAB PO SCH (05:50)
[2017-05-18 05:58] LABS: BASO % 0.6 %; BASO ABS # 0.04 K/uL (0-0.2); EOS % 0.9 %; EOS ABS # 0.06 K/uL (0-0.5); HEMOGLOBIN 8.4 g/dL (12.0-16.0); IG# 0.03 K/uL (0.00-0.02); LYMPH % 11.2 %; LYMPH ABS # 0.75 K/uL (1.2-3.4); MEAN CELL VOLUME 102.8 fL (80-100); MEAN CORPUSCULAR HEMOGLOBIN 33.2 pg (25-34); MEAN CORPUSCULAR HGB CONC 32.3 g/dl (32-36); MEAN PLATELET VOLUME 9.8 fL (7.4-10.4); MONO % 8.4 %; MONO ABS # 0.56 K/uL (0.11-0.59); NEUT % 78.5 %; NEUT ABS # 5.23 K/uL (1.4-6.5); PLATELET COUNT 304 K/uL (130-400); RED CELL DISTRIBUTION WIDTH CV 14.2 % (11.5-14.5); RED CELL DISTRIBUTION WIDTH SD 53.3 fL (36.4-46.3); WHITE BLOOD COUNT 6.67 K/uL (4.8-10.8)
[2017-05-18 06:35] LABS: CALCIUM 7.9 mg/dl (8.5-10.1); CREATININE 1.31 mg/dl (0.60-1.20); POTASSIUM 3.6 mmol/L (3.5-5.1)
[2017-05-18] MEDS: FLUTICASONE HFA 110MCG INHALER INH SCH ×2 (08:27→20:46)
[2017-05-18] MEDS: POLYETHYLENE (MIRALAX) 17 GM PACK PO SCH (08:28)
[2017-05-18] MEDS: FLUCONAZOLE 100 MG TAB PO SCH (08:28)
[2017-05-18] MEDS: SALMETEROL XINAFOATE 50MCG 28 BLISTER INH INH SCH ×2 (08:28→20:46)
[2017-05-18] MEDS: LINEZOLID 600 MG TAB PO SCH ×2 (08:29→20:47)
[2017-05-18] MEDS: CEROVITE ADV FORMULA TAB PO SCH (08:29)
[2017-05-18] MEDS: GUAIFENESIN 600 MG TABCR PO SCH ×2 (08:29→20:48)
[2017-05-18] MEDS: PANTOprazole SOD 40 MG TAB PO SCH (08:29)
--- NOTE | 2017-05-18 09:55 | DIAGNOSTIC IMAGING REPORT ---
CHEST 2 VIEWS ROUTINE CLINICAL HISTORY: 51 years-old Female presenting with RECENT ASPIRATION PNEUMONIA, INTERVAL CHANGE. TECHNIQUE: Portable upright AP view of the chest was obtained. COMPARISON: 05/17/2017. FINDINGS: Tracheostomy tube terminates in the mid thoracic trachea. Right subclavian Mediport terminates in the lower SVC. Atherosclerosis of aortic arch. Cardiac silhouette enlarged though less prominent than on the prior radiograph. Persistent right basilar opacities and less pronounced left basilar opacities. Small bilateral pleural effusions, right greater than left. No pneumothorax. Osteopenia suspected. Dextrocurvature of the thoracic spine. Upper abdomen normal. IMPRESSION: 1. Persistent bibasilar opacities greater on the right with right greater than left small pleural effusions. This remains concerning for pneumonia or aspiration with parapneumonic effusions. Pulmonary edema is felt to be less likely given the focality of the consolidation. Electronically signed by: Jamal Christiansen M.D. 05/18/2017 9:54 AM Dictated Date/Time: 05/18/2017 9:51 AM
[2017-05-18] MEDS ORDERED: INSULIN IV INFUSION PROTOCOL STA (13:36)
[2017-05-18] MEDS ORDERED: INSULIN PROTOCOL GOAL RANGE ONE (13:45)
[2017-05-18] MEDS ORDERED: INSULIN HUMAN REGULAR IV BOLUS 2.5 UNIT in SYRINGE 0 ML IV SCH (14:00)
[2017-05-18] MEDS ORDERED: SEVERE STRESS LEVEL ONE (14:00)
--- NOTE | 2017-05-18 14:01 | Pharmacy Progress Note ---
Pharmacy Glycemic Short Note 2 Date of Service May 18, 2017. OUTPATIENT ANTIDIABETIC REGIMEN: * NovoLog Pump per the following settings * Basal rates vary by time of day from 0.25-0.6units/hr * Sensitivity Factor = 65 mg/dl/unit for BSG >150 mg/dl * Carb ratio = 1 unit for every 15g CHO consumed Item Value Date Time Bedside Glucose 291 mg/dl H 05/17/17 1745 Bedside Glucose 280 mg/dl H 05/17/17 1917 Bedside Glucose 316 mg/dl H 05/17/17 2144 Bedside Glucose 262 mg/dl H 05/18/17 0204 Bedside Glucose 273 mg/dl H 05/18/17 0527 Bedside Glucose 250 mg/dl H 05/18/17 0756 Bedside Glucose 325 mg/dl H 05/18/17 1137 ASSESSMENT: * 51yo type 1 diabetic known to pharmacy from previous admissions glycemic consults. * Pt with brittle/labile BSG control at baseline. Typically, she is best managed with an IV insulin infusion while admitted since it is the most easily, and quickly, titratable regimen. She does not do well with BID Lantus as this typically leads to hypoglycemia (even when the doses are small BID). * On admission, her insulin pump was held and an IV insulin infusion was ordered per hospitalist. Unfortunately, the plan was changed overnight to just SQ SSI monotherapy. No basal insulin ordered. No carb coverage ordered. * BSG now up to 463 mg/dl @ ~1345 * Starting IV insulin infusion per protocol * Will transition back to SQ insulin pump tomorrow when mother brings it back to the hospital PLAN FOR INPATIENT GLYCEMIC CONTROL: * IV insulin infusion per protocol * High Stress for BSG > 250 mg/dl * Goal range 140-180 mg/dl * Bolus insulin - use fixed carb ratio rather than drip calculations since outpatient carb ratio is known and IV insulin calculator may over or under calculate based on the current drip rate. Will start with a slightly more aggressive CR d/t infection. * NovoLog per scale ACHS or Q6hrs while NPO * Nutritional / Prandial insulin per carb ratio of 1 unit per 12 grams CHO consumed PLAN FOR DISCHARGE: * Transition back to insulin pump tomorrow morning
[2017-05-18] MEDS: INSULIN REGULAR 250 UNITS in SODIUM CHLORIDE 0.9% 250ML 250 ML IV SCH ×7 (14:19→23:37)
[2017-05-18] MEDS: FEXOFENADINE HCL 180 MG TAB PO SCH (20:48)
[2017-05-18] MEDS: ENOXAPARIN 40 MG/0.4 ML SYR SQ SCH (20:48)
[2017-05-18] MEDS: ATORVASTATIN 10 MG TAB PO SCH (20:49)
[2017-05-18] MEDS: MONTELUKAST SOD 10 MG TAB PO SCH (20:49)
[2017-05-19] MEDS: INSULIN REGULAR 250 UNITS in SODIUM CHLORIDE 0.9% 250ML 250 ML IV SCH ×6 (00:33→11:17)
[2017-05-19 00:39] VITALS: BP 112/69; PULSE 60; TEMP 36.8; O2SAT 92
[2017-05-19 02:05] VITALS: PULSE 59; O2SAT 96
[2017-05-19] MEDS: ALBUTEROL 0.083% NEBU SOLN 3 ML VIAL INH SCH ×2 (02:05→07:22)
--- NOTE | 2017-05-19 06:20 | Progress Note ---
Subjective Date of Service: late entry for visit on May 18, 2017. Subjective Pt evaluation today including: conversation w/ patient, conversation w/ family (mother at bedside), physical exam, chart review, lab review, review of studies (cxr), review of inpatient medication list Pain: none PO Intake: mother states she "isn't eating that great today" Voiding: incontinence no issues overnight mild cough but no sputum production no tracheostomy secretions no increasing o2 requirements bsg's high today but insulin drip is off and she is not on her pump Problem List Medical Problems: (1) Anemia Status: Acute (2) Elevated troponin Status: Acute (3) Leukocytosis Status: Acute (4) Multifocal pneumonia Status: Acute (5) Pneumonia Status: Acute (6) Sepsis with organ dysfunction Status: Acute Review of Systems cannot obtain ROS due to Down's Objective Vital Signs Date Time Temp Pulse Resp B/P (MAP) Pulse Ox O2 Delivery O2 Flow Rate FiO2 05/19/17 02:05 59 16 96 Nasal Cannula 3.0 05/19/17 00:39 36.8 60 18 112/69 (83) 92 3.0 05/19/17 00:00 Nasal Cannula 3.0 05/18/17 19:30 62 16 97 Nasal Cannula 3.0 05/18/17 16:05 36.8 05/18/17 16:00 Nasal Cannula 4.0 05/18/17 15:28 37.2 67 20 130/79 (96) 90 Nasal Cannula 3.0 05/18/17 14:15 65 18 95 Nasal Cannula 4.0 05/18/17 08:40 Nasal Cannula 2.0 05/18/17 07:34 36.6 79 20 105/72 (83) 93 Nasal Cannula 2.0 05/18/17 07:26 79 18 93 Nasal Cannula 2.0 Physical Exam General Appearance: no apparent distress ENT: pharynx normal (MMM, no thrush; lips slightly dry) Neck: no JVD, + pertinent finding (trach clean, no secretions) Respiratory/Chest: no respiratory distress, no accessory muscle use, + rales ( focal, right base - no worse than yesterday) Cardiovascular: regular rate, rhythm, no gallop, no JVD, + systolic murmur (1/ 6 LSB) Abdomen: normal bowel sounds, non tender, soft, no organomegaly Extremities: no pedal edema Neurologic/Psychiatric: alert Laboratory Results Last 24 Hours Test 05/18/17 07:56 05/18/17 11:37 05/18/17 13:41 05/18/17 15:23 Bedside Glucose 250 mg/dl 325 mg/dl 463 mg/dl 305 mg/dl Test 05/18/17 16:23 05/18/17 17:27 05/18/17 18:48 05/18/17 19:24 Bedside Glucose 205 mg/dl 105 mg/dl 141 mg/dl 165 mg/dl Test 05/18/17 20:25 05/18/17 21:23 05/18/17 22:29 05/18/17 23:33 Bedside Glucose 201 mg/dl 197 mg/dl 212 mg/dl 221 mg/dl Test 05/19/17 00:29 05/19/17 01:35 05/19/17 02:28 05/19/17 03:35 Bedside Glucose 229 mg/dl 202 mg/dl 194 mg/dl 171 mg/dl Test 05/19/17 04:29 05/19/17 05:56 Bedside Glucose 142 mg/dl Assessment and Plan 51yo female with Down's Syndrome, long-standing T1DM on insulin pump, chronic hypoxic respiratory failure on home O2 (2 L at rest, 4 L w/ activity), dysphagia /aspiration, and tracheostomy status - recent hospital admission for RLL MRSA aspiration pneumonia - [facility]14/17 [facility]. She has been finishing a course of zyvox for the MRSA pneumonia. She presented to the hospital after an outpatient cxr showed possible worsening pneumonia. 1. recent RLL aspiration pneumonia 2nd to MRSA - she is finishing a course of oral zyvox. She has no fever, leukocytosis, worsening O2 requirement, trach secretions, or dyspnea. The chest x-ray may simply represent additional pneumonitis from silent aspiration following her recent hospitalization but she may not have actual recurrent pneumonia/active infection. The repeat chest x-ray was actually about 2 weeks after the first chest x-ray. Today's x-rays are again stable. Blood cx's are negative. Procalcitonin is normal. CRP minimally elevated. Leave abx as is. 2. T1DM on insulin pump - the pump has been taken [facility] the prison. I have spoken with pharmacy and we will resume her insulin infusion now and tomorrow AM, when her pump is available, will transition back to her own pump. 3. hypothyroidism - recent TSH wnl; cont synthroid. 4. chronic hypoxic resp failure on home O2 with trach status - routine trach care, O2 via NC, mucinex, nebs. 5. tracheal stenosis s/p trach - as above in #4 above. 6. DVT proph - lovenox 40mg daily. 7. recent candidal UTI - continue diflucan; repeat u/a looks better; urine cx thus far neg. 8. recent acute kidney injury - creatinine continues to improve. BMP am. 9. FEN - mech soft diet/nectar thick liquids; saline lock IV; lytes in AM. I have asked speech to re-eval her to ensure the nectar thick liquids is still the thickening agent of choice. 10. anemia - Hb is stable. mother updated at bedside DNR home tomorrow
[2017-05-19] MEDS: LEVOTHYROXINE 150 MCG TAB PO SCH (06:39)
[2017-05-19 07:02] LABS: CREATININE 1.21 mg/dl (0.60-1.20); POTASSIUM 3.4 mmol/L (3.5-5.1)
[2017-05-19 07:05] LABS: PHOSPHORUS 3.2 mg/dl (2.5-4.9)
[2017-05-19] MEDS: SALMETEROL XINAFOATE 50MCG 28 BLISTER INH INH SCH (07:31)
[2017-05-19] MEDS: FLUCONAZOLE 100 MG TAB PO SCH (07:31)
[2017-05-19] MEDS: FLUTICASONE HFA 110MCG INHALER INH SCH (07:31)
[2017-05-19] MEDS: LINEZOLID 600 MG TAB PO SCH (07:32)
[2017-05-19] MEDS: POLYETHYLENE (MIRALAX) 17 GM PACK PO SCH (07:32)
[2017-05-19] MEDS: GUAIFENESIN 600 MG TABCR PO SCH (07:32)
[2017-05-19] MEDS: CEROVITE ADV FORMULA TAB PO SCH (07:32)
[2017-05-19] MEDS: PANTOprazole SOD 40 MG TAB PO SCH (07:32)
[2017-05-19 07:33] VITALS: PULSE 59; O2SAT 99
[2017-05-19 07:35] VITALS: BP 121/78; PULSE 55; TEMP 36.9; O2SAT 100
[2017-05-19] MEDS: INSULIN ASPART 100 UNITS/ML 3 ML PEN SC SCH (09:29)
[2017-05-19] MEDS ORDERED: POTASSIUM CHLORIDE 20 MEQ TABCR PO ONE (10:00)
[2017-05-19] MEDS ORDERED: INSULIN ASPART 100 UNITS/ML 3 ML PEN SC ONE (11:45)
[2017-05-19] MEDS ORDERED: LINE1TAB2 PO (14:13)
[2017-05-19] MEDS ORDERED: FLUC100T PO (14:13)
[2017-05-19] MEDS ORDERED: CITA40TA12 PO (14:13)
[2017-05-19] MEDS ORDERED: FERR1TAB13 PO (14:20)
--- NOTE | 2017-05-19 14:26 | Discharge Instructions ---
Discharge Instructions Date of Service May 19, 2017. Admission Reason for Admission: Question of recurrent Pneumonia Discharge Discharge Diagnosis / Problem: Recent MRSA pneumonia due to aspiration - resolved Discharge Goals Goal(s): Learn about illness, Diagnostic testing, Therapeutic intervention Activity Recommendations Activity Level: Assistance Required . Additional Information Patient informed of condition: Yes Advance Directives: Yes DNR: Yes Level of Care: Other (chcf) Communicable Disease: Yes (MRSA) Prognosis: Stable Oxygen at (LPM): 2 L at rest, 4 L with activity Leal Catheter: No Instructions / Follow-Up Instructions / Follow-Up Valorie was observed for 48 hours for any worsening respiratory status or development of a NEW pneumonia. During her stay her labs were stable, she had no fever, her CBC showed no elevation in her white blood cell count, her oxygen levels remained healthy/ normal, and she had no trach secretions. Her chest x-ray remained stable as well. I believe that her chest x-ray findings reflect her previous MRSA pneumonia and not a new pneumonia process. At this time I would recommend the following - 1. Take 1 more dose of zyvox (linezolid) 600mg TONIGHT then discontinue as she has completed 14 days of treatment for the MRSA pneumonia. 2. Take 1 more dose of fluconazole (diflucan) 100mg TOMORROW for the recent urinary tract infection & thrush - then stop. 3. Can resume her celexa (citalopram) TOMORROW. 4. Can resume lipitor on 05/22/17. 5. START ferrous sulfate (frma-nlm-wthnssc iron) 325mg twice a day. Iron can cause constipation and make the stools dark. This is normal. Valorie will likely need miralax and/or other stool softners to prevent constipation. 6. HOLD the bactrim (trimethoprim- sulfa) antibiotic until seen by Isra Mandujano pulmonary PA. Follow-up - please see Isra Mandujano in the pulmonary clinic THIS WEEK for hospital follow- up. Valorie needs a repeat "BMP" (basic metabolic panel) at time of hospital follow- up. Return to [facility] if - * fever over 100.4 degrees * worsening oxygen requirements * lethargy or change in mental status * worsening shortness of breath * severely high blood sugars or severe low blood sugars * any other concerns Current Hospital Diet Patient's current hospital diet: Diabetes Type 1 Diet Discharge Diet Recommended Diet: Diabetes Type 1 Diet Procedures Procedures Performed: chest x-rays x 2 - shows Valorie's pneumonia from her previous hospital stay, particularly in the right lower lobe. No evidence of congestive heart failure. Pending Studies Studies pending at discharge: yes List of pending studies: blood cultures, but thus far negative Physician Orders On Transfer Vital Signs: per routine Weigh: daily/every morning Additional Orders: check O2 sats as you have been previously doing. when checking the O2 sat on Valorie would recommend that the "Waveform" portion of the oximeter have a "good" waveform - that is, the shape looks like a sideways "S". If the waveform is flat then the O2 sat is likely inaccurate. POLST Discussion: with POLST completion (done during the previous hospital stay ) Laboratory Results Hemoglobin A1c Test 05/16/17 12:36 Range/Units Estimated Average Glucose 206 mg/dl Hemoglobin A1c 8.8 H 4.5-5.6 % Medical Emergencies . Who to Call and When: Medical Emergencies: If at any time you feel your situation is an emergency, please call 911 immediately. . Non-Emergent Contact Non-Emergency issues call your: Primary Care Provider, Truck Crane Operator Helper Call Non-Emergent contact if: temperature is above 100.5, you have any medication questions . . "Provider Documentation" section prepared by Marcell Sage. . Core Measure Problem Core Measures: None
[2017-05-19 14:56] VITALS: BP 121/78; PULSE 55; TEMP 36.9; O2SAT 100
[2017-05-19] MEDS ORDERED: INSULIN ASPART 100 UNITS/ML VIAL SC PRN (15:15)
[2017-05-19] MEDS ORDERED: NovoLOG INSULIN PUMP SCH (16:30)
--- NOTE | 2017-05-19 20:30 | Discharge Summary ---
Discharge Summary Date of Service May 19, 2017. Discharge Summary Admission Date: May 17, 2017 at 18:44 Discharge Date: May 19, 2017 Discharge Disposition: Personal care ([facility]) Principal Diagnosis: resolving RLL MRSA pneumonia Problems/Secondary Diagnoses: 1. Down's Syndrome 2. DMI on insulin pump 3. tracheal stenosis s/p tracheostomy 4. multiple lung infections/recurrent PNA 5. pulmonary HTN 6. chronic cor pulmonale/right-sided CHF 7. hypothyroidism 8. CAMILLA 9. h/o PFO 10. 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 Dental caries/suspected tooth abscess - left side mandibular molar 12. GERD 13. chronic hypoxic respiratory failure on home O2 14. anemia of chronic disease with possible superimposed iron deficiency 15. constipation - resolved 16. recent candidal UTI - resolved 17. recent acute kidney injury - resolving Immunizations: Have You Had Influenza Vaccine: N/A Influenza Vaccine Date: Dec 18, 2005 History of Tetanus Vaccine?: Unknown Tetanus Immunization Date: May 22, 2001 History of Pneumococcal: Yes Pneumococcal Date: August 15, 2012 History of Hepatitis B Vaccine: No Procedures: multiple chest x-rays with b/l basilar infiltrates, worse in the RLL - due to recent aspiration pneumonia from MRSA Consultations: pharmacy for glycemic management speech therapy Medication Reconciliation New Medications: Ferrous Sulfate (Kp Ferrous Sulfate) 325 Mg Tab 1 TAB PO BID for 30 Days, #60 TAB 1 Refill Changed Medications: Citalopram Hydrobromide (Celexa) 40 Mg Tab 40 MG PO DAILY, #30 TAB 2 Refills (Changed from: Refills: ) can resume on 05/20/17 Fluconazole (Diflucan) 100 Mg Tab 100 MG PO once, #1 TAB 0 Refills (Changed from: QAM; Refills: ; HOLD LIPITOR WHILE TAKING THIS DRUG. RESUME 2 DAYS AFTER.) Take 1 more dose on the AM of 05/20/17. HOLD LIPITOR WHILE TAKING THIS DRUG. RESUME the lipitor on 05/22/17. Linezolid (Linezolid) 600 Mg Tab 600 MG PO once, #1 TAB 0 Refills (Changed from: BID; 10; Removed Days; Refills: ) take evening of 05/19/17 then stop. Continued Medications: Acetaminophen (Tylenol) 500 Mg Tab 1000 MG PO Q6H PRN for GENERAL DISCOMFORT MAX 8 TABLETS IN 24 HOURS Albuterol Hfa (Ventolin Hfa) 200 Puffs/74231 Mcg Aers 2 PUFFS INH QID PRN for Shortness of Breath Albuterol Sulf (Proventil 0.083% 2.5MG/3ML) 2.5 Mg/3 Ml Nebu 2.5 MG INH TID PRN for CHEST CONGESTION TAKE VIA TRACH MASK Albuterol Sulf (Proventil 0.083% 2.5MG/3ML) 2.5 Mg/3 Ml Nebu 2.5 MG INH TID, EA USE VIA TRACH MASK Atorvastatin (Lipitor) 10 Mg Tab 10 MG PO HS DO NOT TAKE DIFLUCAN WHILE TAKING THIS DRUG. RESUME 2 DAYS AFTER STOP DATE. Calcium Carbonate-Cholecalcife (Oyster Shell Calcium + D) 1 Tab Tab 1 TAB PO TID MORNING, AFTERNOON AND BEDTIME Clotrimazole (Topical) (Anti-Fungal) 1 % Cre 1 APPLN TOP TID PRN for RASH APPLY 3 TIMES DAILY NEEDED FOR RASH AROUND TRACH Dextrose (Diabetic Use) (Insta-Glucose) 77.4 % Gel 1 TUBE PO DIRECTED PRN for LOW BLOOD SUGAR Ergocalciferol (Vitamin D 91884 Unit) 50,000 Unit Cap 93595 UNIT PO WK, CAP ONCE EVERY 7 DAYS (THURSDAYS) Fexofenadine Hcl (Danielle) 180 Mg Tab 180 MG PO HS, TAB Fluticasone Propionate (Flovent Hfa) 120 Puffs/09320 Mcg Aero 2 PUFFS INH AMHS USE WITH AEROCHAMBER. RINSE MOUTH AFTER USE. * FLOVENT HFA 110 MCG * Furosemide (Lasix) 20 Mg Tab 20 MG PO DAILY PRN for WEIGHT GAIN, TAB GIVE WITH WEIGHT GAIN OF 3 LBS IN 24 HOURS AND WITNESS EDEMA\SOB. Glucagon (Glucagon Emergency Kit) 1 Mg Kit 1 MG IM PRN for UNRESPONSIVE PRN FOR LOW BLOOD SUGAR EPISODES Glucose-Vitamin C (Dex4) 1 Chw Chw 1 TAB PO DAILY PRN for LOW BLOOD SUGARS Guaifenesin Ext Rel (Mucinex Ext Rel) 600 Mg Tab 600 MG PO Q12, TAB Home O2 Therapy (Oxygen) Gas 4 LITERS NA PRN 4L/MIN 30% VIA TRACH HS Home O2 Therapy (Oxygen) Gas 2 LITERS NA DIRECTED, #1 2 liters at rest, 4 liters with activity. Insulin Aspart (novoLOG INSULIN PUMP ) 1 Ea Inj N/A UD, EA USE IN THE INSULIN PUMP DIRECTED Insulin Glargine (Lantus) 100 Unit/Ml Inj 0 SC UD PRN for PUMP MALFUNCTION USE IF NEEDED FOR A PUMP MALFUNCTION Levothyroxine Sodium (Levothyroxine Sodium) 150 Mcg Tab 150 MCG PO QAM for 90 Days, #90 TAB 3 Refills Montelukast Sodium (Singulair) 10 Mg Tab 10 MG PO HS, TAB Multiple Vitamins W/ Minerals (Therems M) 1 Tab Tab 1 TAB PO QAM Omeprazole (Prilosec) 20 Mg Capcr 20 MG PO QAM, CAP Polyethylene (Miralax) 17 Gm Pow 17 GM PO QAM for 30 Days, #1 BTL Promethazine (Phenergan ) 12.5 Mg Tab 12.5 MG PO Q8 PRN for Nausea or Vomiting, TAB Salmeterol Xinafoate (Serevent Diskus) 50 Mcg Aerp 1 PUFF INH AMPM Sodium Chloride (Gu Irrigant) (Sodium Chloride 0.9%) 0.9 % Mary Anne DAILY USE TO CLEAN TRACH TUBE DAILY. Sodium Fluoride (Dental) (Phos-Flur Ortho Defense) 0.044 % Mary Anne 0.5 OZ PO HS RINSE WITH 1\2 OUNCE BY MOUTH Discontinued Medications: Sulfa/Trimethoprim (Bactrim Ds 800MG/160MG) Tab 1 TAB PO HS GIVE 1 TABLET BY MOUTH AT BEDTIME FOR THE MONTH OF MAR, MAY, JULY, SEPTEMBER, NOV AND NOV DO NOT GIVE WITHIN TWO HOURS OF CALCIUM/OSCAL/MVI OR MILK OF MAG. Zinc Sulfate (Zinc Sulfate) 220 Mg Cap 220 MG PO AMHS Discharge Exam Physical Exam: General Appearance: no apparent distress, + pertinent finding (happy, smiling, laughing, NAD; Down's features) ENT: pharynx normal (no thrush, MMM) Neck: no JVD, + pertinent finding (trach in place, clean, no secretions) Respiratory/Chest: no respiratory distress, no accessory muscle use, + rales (focal, RLL only - no change), + pertinent finding (no wheezing) Cardiovascular: regular rate, rhythm, no gallop, normal peripheral pulses, + systolic murmur (1-2/6 LLSB) Abdomen / GI: normal bowel sounds, non tender, soft, no organomegaly Extremities: no pedal edema Neurologic/Psychiatric: alert Skin: + pertinent finding (central port clean/nontender) Hospital Course HISTORY OF PRESENT ILLNESS: 51yo female with Down's Syndrome, long-standing T1DM on insulin pump, chronic hypoxic respiratory failure on home O2 (2 L at rest, 4 L w/ activity), dysphagia/aspiration, and tracheostomy status - recent hospital admission for RLL MRSA aspiration pneumonia - discharged on 05/14/17 back to [facility] [place] [facility]. She has been finishing a course of zyvox for the MRSA pneumonia. She presented to the hospital after an outpatient chest x-ray showed possible worsening pneumonia. Despite the chest x-ray she had had no fever, no worsening O2 requirement, no sputum or tracheal secretions, anorexia, or worsening dyspnea. There was a question of 1 isolated low O2 sat at the [place] [facility] but otherwise her O2 sats had been within normal limits. HOSPITAL COURSE: The patient was placed on observation status and was continued on her oral zyvox for the recent RLL aspiration pneumonia that was due to MRSA. During her stay she had no fever, leukocytosis, worsening O2 requirement, trach secretions, dyspnea, or any elevation in her procalcitonin level. CRP was minimally elevated. Blood cultures were negative. Her lung exam was actually quite good with no wheezing and only focal rales in the RLL from the recent pneumonia. Serial chest x-rays showed bibasilar infiltrates, more so in the RLL, but generally stable. O2 sats were >90% on her home O2 amount the entire stay. Speech was consulted to ensure that her current diet (mech soft with nectar thick liquids) was appropriate and indeed they recommended continued use of this regimen. Specifically, the saw no signs/symptoms of dysphagia with the nectar thick liquids. The chest x-ray may simply have represented additional pneumonitis from silent aspiration following her recent hospitalization. However, I did not feel that she had a new pneumonia that required use of additional antibiotics (beyond the zyvox she was using for the recent MRSA). At discharge she was ambulating well, having normal bowel movements, and eating/ drinking well. In addition to the above her T1DM was managed by the pharmacy glycemic team. She was treated with an IV insulin infusion, and on day of discharge was transitioned back to her insulin pump. Her recent acute kidney injury continued to show improvement with discharge creatinine of 1.2. Previously she was taking bactrim for prophylaxis against pneumonia but I recommended HOLDING this medication until time of hospital follow-up; at that visit a repeat BMP can be obtained ensuring stability in her creatinine. Lastly, the patient has become anemic over the last few months. I suspect that repeated blood loss from phlebotomy over her lengthy stays has caused this. I recommended iron replacement, ferrous sulfate, 325mg BID for 2 months. Repeat CBC in the outpatient clinic is advised for stability. Discharge hemoglobin was 8.4. Total Time Spent: Greater than 30 minutes This includes examination of the patient, discharge planning, medication reconciliation, and communication with other providers. Discharge Instructions Please refer to the electronic Patient Visit Report (Discharge Instructions) for additional information. Follow-Up see Isra Mandujano - pulmonary PA - within 5 days Additional Copies To Isra Mandujano PA-C; Raz Ozuna MD
== END 2017-05-19 15:47 ==
LOC: C.EDC 15:57 → C.MS4W 18:44 → EDBEDREQ 19:36 → ENRESERV 19:49
PROVIDERS: ADMIT Internal Medicine; ATTEND Internal Medicine
DX: J15.212 Pneumonia due to Methicillin resistant Staphylococcus aureus (principal); Q90.9 Down syndrome, unspecified; E10.9 Type 1 diabetes mellitus without complications; J39.8 Other specified diseases of upper respiratory tract; J96.11 Chronic respiratory failure with hypoxia; I27.20 Pulmonary hypertension, unspecified; I27.81 Cor pulmonale (chronic); E03.9 Hypothyroidism, unspecified; K59.00 Constipation, unspecified; Z93.0 Tracheostomy status; Z96.41 Presence of insulin pump (external) (internal); Z87.01 Personal history of pneumonia (recurrent); Z87.440 Personal history of urinary (tract) infections; Z99.81 Dependence on supplemental oxygen; Z66 Do not resuscitate; Z82.49 Family history of ischemic heart disease and other diseases of the circulatory system

== ENCOUNTER 2017-06-17 01:05 | Inpatient (IN) | payer OTHER ==
[2017-06-17] VITALS (10 sets, daily range): BP systolic 92–125; BP diastolic 61–78; PULSE 63–94; TEMP 36.5–37.3; O2SAT 93–98; Ht 147.3 cm; Wt 63.3 kg
[~2017-06-17] VITALS: Ht 147.3 cm; Wt 63.3 kg
[~2017-06-17 01:05] MED LIST changes: +ALBINS/ TR; -DFL100 PO; -DOXY-300 PO; +FERR1TAB13 PO; +FLUC100T PO; -FLUC150T63 PO; -ZINC1CAP PO
[2017-06-17 01:43] LABS: BASO % 0.3 %; BASO ABS # 0.02 K/uL (0-0.2); HEMATOCRIT 28.5 % (37-47); HEMOGLOBIN 9.3 g/dL (12.0-16.0); IG# 0.01 K/uL (0.00-0.02); LYMPH % 22.3 %; LYMPH ABS # 1.34 K/uL (1.2-3.4); MEAN CELL VOLUME 101.1 fL (80-100); MEAN CORPUSCULAR HGB CONC 32.6 g/dl (32-36); MEAN PLATELET VOLUME 9.6 fL (7.4-10.4); MONO % 14.8 %; MONO ABS # 0.89 K/uL (0.11-0.59); NEUT % 62.4 %; NEUT ABS # 3.75 K/uL (1.4-6.5); PLATELET COUNT 195 K/uL (130-400); RED CELL DISTRIBUTION WIDTH CV 14.5 % (11.5-14.5); RED CELL DISTRIBUTION WIDTH SD 54.1 fL (36.4-46.3); WHITE BLOOD COUNT 6.01 K/uL (4.8-10.8)
[2017-06-17] MEDS ORDERED: FLUT1INH PO (02:11)
[2017-06-17] MEDS ORDERED: AMOX875T PO (02:14)
[2017-06-17 02:15] LABS: BLOOD UREA NITROGEN 33 mg/dl (7-18); CALCIUM 8.5 mg/dl (8.5-10.1); CARBON DIOXIDE 27 mmol/L (21-32); CREATININE 1.28 mg/dl (0.60-1.20); GLUCOSE 46 mg/dl (70-99); POTASSIUM 4.1 mmol/L (3.5-5.1); SODIUM 142 mmol/L (136-145)
[2017-06-17] MEDS ORDERED: OXGN (02:19)
[2017-06-17] MEDS ORDERED: [UNRECOGNIZED DRUG - SUPPLY] (02:21)
[2017-06-17] MEDS ORDERED: IBUP-1450 PO (02:26)
[2017-06-17] MEDS ORDERED: DEXTROSE 10% 1,000 ML IV STA (02:27)
[2017-06-17] MEDS ORDERED: FLUC100T4 PO (02:27)
[2017-06-17] MEDS ORDERED: DOXY100T PO (02:29)
--- NOTE | 2017-06-17 02:30 | EMERGENCY ROOM VISIT NOTE ---
History Report prepared by Bryce: Cyn Whitman Under the Supervision of: Dr. Sabra La D.O. First contact with patient: 01:09 Chief Complaint: SEIZURE Stated Complaint: SEIZURE History of Present Illness The patient is a 51 year old female who presents to the Emergency Room with complaints of an episode of a seizure occurring prior to arrival. Per EMS, the patient had a seizure that lasted 45 minutes and started 1.5 hours ago. They report that upon arriving on scene she was still seizing. They states that her blood pressure was in 70s and her blood sugar was 121. They explained that the seizure stopped after they administered 1 mg of IV Ativan. They report that she was in a postictal state for quite a while. Per the caregiver, he states that he came on shift and the sensor saying her blood sugar was below 100 was going off. He states that when he checked it, it was 77. He reports that she was shaking, unresponsive, and diaphoretic when he called 911. He states that he gave her Glucagon while she was seizing and administered a gluca- pen. He reports that the patient has a history of seizure like symptoms when her sugars drop rapidly. He states that she shakes, but has never had a true seizure because she always comes to quickly after Glucagon is given. He reports that EMS had to suction her trach out since it was clogged upon arrival. The patient' s mother notes that she has had the trach for a long time. The patient's mother notes that the patient seemed fine all day and was eating/drinking normally. She states that before dinner her blood sugar was in the 500s and before she left it had come down to 200. She reports that the rapid cycling is normal for her and that her chemist instrumentation recently had the pump taken off because of this. The patient denies being in any pain. The caregiver notes that she is on Prednisone for a URI. Source of History: patient, parent, caregiver, EMS Onset: prior to arrival Position: other (global) Quality: other (seizure) Timing: other (episode) Associated Symptoms: + diaphoresis Note: The patient denies being in any pain. Review of Systems See HPI for pertinent positives & negatives. A total of 10 systems reviewed and were otherwise negative. Past Medical & Surgical Medical Problems: (1) ASTHMA, UNSPECIFIED (2) CONGESTIVE HEART FAILURE (3) Constipation (4) DIAB UVALDO WO COMPL, TYPE I [JUVENILE TYPE], NOT UNCNTRLD (5) DOWN'S SYNDROME (6) Elevated white blood cell count (7) GERD (gastroesophageal reflux disease) (8) Hypoglycemia associated with diabetes (9) Hypoglycemia associated with diabetes (10) Hypothyroidism (11) Seizure-like activity (12) SOB (shortness of breath) Surgical Problems: (1) Hx of tracheostomy Family History Diabetes mellitus FH: CAD (coronary artery disease) FHx: Down syndrome Myocardial infarction Social History Smoking Status: Never Smoker Smokeless Tobacco Use: No Alcohol Use: none Drug Use: none Marital Status: single Housing Status: other ([facility]) Occupation Status: disabled Current/Historical Medications Scheduled Albuterol Sulf (Proventil 0.083% 2.5MG/3ML), 2.5 MG TR TID Amoxicillin & Pot Clavulanate (Augmentin 875-125 mg), 1 TAB PO Q12 Atorvastatin (Lipitor), 10 MG PO HS Calcium Carbonate-Cholecalcife (Oyster Shell Calcium + D), 1 TAB PO TID Citalopram Hydrobromide (Celexa), 40 MG PO DAILY Doxycycline Hyclate (Doxycycline Hyclate), PO UD Ergocalciferol (Vitamin D 84458 Unit), 50,000 UNIT PO WK Ferrous Sulfate (Kp Ferrous Sulfate), 1 TAB PO BID Fexofenadine Hcl (Danielle), 180 MG PO HS Fluconazole (Diflucan), 100 MG PO QAM Fluticasone Furoate-Vilanterol (Breo Ellipta), 1 PUFF PO DAILY Home O2 Therapy (Oxygen), LITER UD Insulin Aspart (novoLOG INSULIN PUMP ), N/A UD Levothyroxine Sodium (Levothyroxine Sodium), 150 MCG PO QAM Montelukast Sodium (Singulair), 10 MG PO HS Multiple Vitamins W/ Minerals (Therems M), 1 TAB PO QAM Omeprazole (Prilosec), 20 MG PO QAM Prednisone (Prednisone), 20 MG PO DAILY Prednisone (Prednisone), 10 MG PO DAILY Prednisone Tab (Prednisone), 30 MG PO DAILY Sodium Chloride (Gu Irrigant) (Sodium Chloride 0.9%), DAILY Sodium Fluoride (Dental) (Phos-Flur Ortho Defense), 0.5 OZ PO HS [Percussion Vest], TID Scheduled PRN Albuterol Hfa (Ventolin Hfa), 2 PUFFS INH QID PRN for Shortness of Breath Clotrimazole (Topical) (Anti-Fungal), 1 APPLN TOP TID PRN for RASH Dextrose (Diabetic Use) (Insta-Glucose), 1 TUBE PO DIRECTED PRN for LOW BLOOD SUGAR Furosemide (Lasix), 20 MG PO DAILY PRN for WEIGHT GAIN Glucagon (Glucagon Emergency Kit), 1 MG IM for UNRESPONSIVE Glucose-Vitamin C (Dex4), 1 TAB PO DAILY PRN for LOW BLOOD SUGARS Ibuprofen (Motrin), 600 MG PO TID PRN for Pain Insulin Glargine (Lantus), 0 SC UD PRN for PUMP MALFUNCTION Promethazine (Phenergan ), 12.5 MG PO Q8 PRN for Nausea or Vomiting Allergies Coded Allergies: Cephalosporins (Verified Allergy, Intermediate, rash per mother, 05/17/17) TOLERATED ZOSYN IN PAST ADMISSION AND 05/17/15 Cefaclor (Verified Allergy, Unknown, HIVES, 05/17/17) TOLERATED ZOSYN IN PAST ADMISSION AND 05/17/15 Sertraline (Verified Allergy, Unknown, INTOLERANCE, 05/17/17) Physical Exam Vital Signs Date Time Temp Pulse Resp B/P (MAP) Pulse Ox O2 Delivery O2 Flow Rate FiO2 06/17/17 04:00 56 20 127/64 100 Trach Collar 10.0 06/17/17 03:30 57 19 120/61 100 Trach Collar 10.0 06/17/17 03:02 48 23 130/71 100 Trach Collar 10.0 06/17/17 02:30 52 21 117/64 100 Trach Collar 10.0 06/17/17 02:00 58 22 113/62 100 Trach Collar 10.0 06/17/17 01:31 59 22 114/59 100 Trach Collar 10.0 06/17/17 01:13 50 06/17/17 01:05 Room Air 06/17/17 01:05 36.4 52 19 88/73 100 Trach Collar 10.0 Physical Exam HEENT: Head - normocephalic and atraumatic Pupils are equal, round, and reactive to light. Extraocular eye muscles are intact, and sclera are anicteric. Nose - moist nasal mucosa without discharge. Mouth - moist buccal mucosa. Oropharynx is nonerythematous and there is no tonsillar exudate or edema noted. Neck: Supple; no JVD, nuchal rigidity, cervical lymphadenopathy. Trach in place. Heart: Regular rate and rhythm. There is a normal S1 and S2 with no murmurs, clicks, or gallops appreciated. Lungs: Diminished breath sounds in bilateral bases. Clear to auscultation bilaterally with no wheezes, rales, or rhonchi. Abdomen: Soft, completely nontender, nondistended, with good bowel sounds. There are no palpable pulsatile masses or hepatosplenomegaly. There is no guarding, rigidity, or rebound noted. Extremities: No evidence of cyanosis, clubbing, or edema. There are easily palpable peripheral pulses. Skin: warm and dry with good turgor and no rashes. Medical Decision & Procedures Laboratory Results 06/17/17 01:30 Red Blood Count 2.82, Mean Corpuscular Volume 101.1, Mean Corpuscular Hemoglobin 33.0, Mean Corpuscular Hemoglobin Concent 32.6, Mean Platelet Volume 9.6, Neutrophils (%) (Auto) 62.4, Lymphocytes (%) (Auto) 22.3, Monocytes (%) ( Auto) 14.8, Eosinophils (%) (Auto) 0.0, Basophils (%) (Auto) 0.3, Neutrophils # (Auto) 3.75, Lymphocytes # (Auto) 1.34, Monocytes # (Auto) 0.89, Eosinophils # ( Auto) 0.00, Basophils # (Auto) 0.02 Test 06/17/17 01:30 06/17/17 01:40 06/17/17 03:34 06/17/17 03:49 White Blood Count 6.01 K/uL (4.8-10.8) Red Blood Count 2.82 M/uL (4.2-5.4) Hemoglobin 9.3 g/dL (12.0-16.0) Hematocrit 28.5 % (37-47) Mean Corpuscular Volume 101.1 fL (80-100) Mean Corpuscular Hemoglobin 33.0 pg (25-34) Mean Corpuscular Hemoglobin Concent 32.6 g/dl (32-36) Platelet Count 195 K/uL (130-400) Mean Platelet Volume 9.6 fL (7.4-10.4) Neutrophils (%) (Auto) 62.4 % Lymphocytes (%) (Auto) 22.3 % Monocytes (%) (Auto) 14.8 % Eosinophils (%) (Auto) 0.0 % Basophils (%) (Auto) 0.3 % Neutrophils # (Auto) 3.75 K/uL (1.4-6.5) Lymphocytes # (Auto) 1.34 K/uL (1.2-3.4) Monocytes # (Auto) 0.89 K/uL (0.11-0.59) Eosinophils # (Auto) 0.00 K/uL (0-0.5) Basophils # (Auto) 0.02 K/uL (0-0.2) RDW Standard Deviation 54.1 fL (36.4-46.3) RDW Coefficient of Variation 14.5 % (11.5-14.5) Immature Granulocyte % (Auto) 0.2 % Immature Granulocyte # (Auto) 0.01 K/uL (0.00-0.02) Urine Color YELLOW Urine Appearance CLEAR (CLEAR) Urine pH 5.0 (4.5-7.5) Urine Specific [place] 1.027 (1.000-1.030) Urine Protein NEG (NEG) Urine Glucose (UA) 1+ (NEG) Urine Ketones TRACE (NEG) Urine Occult Blood NEG (NEG) Urine Nitrite NEG (NEG) Urine Bilirubin NEG (NEG) Urine Urobilinogen NEG (NEG) Urine Leukocyte Esterase NEG (NEG) Bedside Glucose 228 mg/dl (70-90) Laboratory results per my review. Medications Administered Medications (Trade) Dose Ordered Sig/Rene Route Start Time Stop Time Status Last Admin Dose Admin Dextrose 1,000 ml @ 200 mls/hr Q5H STAT IV 06/17/17 02:27 06/17/17 03:40 DC 06/17/17 02:41 200 MLS/HR Procedure 0227: Ordered Dextrose 1000 ml @ 200 mls/hr IV. ECG Per My Interpretation Indication: other (seizure) Rate (beats per minute): 53 Rhythm: sinus bradycardia Findings: no acute ischemic change, no ectopy ED Course 0109: Past medical records reviewed. The patient was evaluated in room B12B. A complete history and physical exam was performed. Labs were drawn as above. The patient was observed on the elementary principal and pulse oximeter. 0227: Laboratory blood sugar testing was 46. We repeated it here and found it to be 88. Ordered Dextrose 1000 ml @ 200 mls/hr IV. 0228: Discussed the patient's case with Dr. Дмитрий GILMORE Hospitalist. The patient will be evaluated for further management. Medical Decision The patient is a 51 year old female who presents to the Emergency Room with complaints of an episode of a seizure occurring prior to arrival. Differential diagnoses include diabetic hypoglycemia, primary seizure disorder, cerebral edema. LABS: White count 6 Hemoglobin 9.3 Glucose 46 BUN 33 Creatinine 1.2 Urine positive for trace ketones This is a 51-year-old female patient who presents to the emergency department after a seizure at home. The patient is a diabetic and was found to be hypoglycemic. She was given glucagon which brought the blood sugar up to 121. However, the patient continued to seize at home until EMS arrived and was given IV Ativan which stopped the seizure. The patient remained postictal during the transport here to the hospital. Upon arrival here in the emergency department, she was just starting to wake up. The patient has a sensing device for hypoglycemia as well as an insulin pump. The pump had been removed by her caretakers prior to transport here to the emergency department. The patient eventually was fully awake and able to act at her baseline for me. However, the patient's blood sugar precipitously dropped again. She was given 10% dextrose at 200 mL's per hour. She remains hemodynamically stable at this time. The patient's family and caretakers abreast of the situation. I have discussed the case with the [facility] Hospitalist and they will evaluate for further management. Medication Reconcilliation Current Medication List: was personally reviewed by me Blood Pressure Screening Patient's blood pressure: Low blood pressure Will be further monitored by the hospitalist. Consults Time Called: 226 Consulting Physician: Dr. Дмитрий GILMORE Hospitalist Returned Call: [phone] Discussed the patient's case with Dr. Дмитрий GILMORE Hospitalist. The patient will be evaluated for further management. Impression Primary Impression: Seizure Additional Impression: Diabetic hypoglycemia Scribe Attestation The scribe's documentation has been prepared under my direction and personally reviewed by me in its entirety. I confirm that the note above accurately reflects all work, treatment, procedures, and medical decision making performed by me. Departure Information Dispostion Being Evaluated By Hospitalist Patient Instructions My [facility] Health Problem Qualifiers
[2017-06-17] MEDS ORDERED: PRED10TA PO ×2 (02:32)
--- NOTE | 2017-06-17 02:36 | History and Physical ---
History & Physical Date & Time of Service: Jun 17, 2017 at 02:35 Chief Complaint: Seizure Primary Care Physician: Vladimir Lucio M.D. History of Present Illness Source: family, caregiver History obtained through discussion with ER physician as well as caregivers. 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 Caregiver states that this evening around 2330 the patient's blood sugar sensor beeped to signal low blood sugar - BS=77 at that time. The patient was found to be shaking, sweating and minimally responsive which is typical behavior for patient's hypoglycemic episodes. The staff at the snf disconnected the insulin pump and administered Glucagel and Glucagon with no improvement in symptoms. 911 was called. When paramedics arrived patient was having a tonic clonic seizure. She was administered 1mg of Ativan and transported to [facility] ER. BS in the ambulance reported to be 221, however BMP drawn in ER confirmed a blood sugar of 46. She was started on an D10 gtt at 200mL/hr. Repeat blood glucose via fingerstick was 155 --> 227. Patient was very somnolent during our encounter. She was arousable and able to follow commands. Per discharge summary from 05/27/17 Dr. Benson has discussed Hospice services with the family and care team. POLST form completed. Past Medical/Surgical History Medical Problems: (1) Anemia (2) ASTHMA, UNSPECIFIED (3) CONGESTIVE HEART FAILURE (4) Constipation (5) DIAB UVALDO WO COMPL, TYPE I [JUVENILE TYPE], NOT UNCNTRLD (6) DOWN'S SYNDROME (7) Elevated troponin (8) GERD (gastroesophageal reflux disease) (9) Hypoglycemia associated with diabetes (10) Hypothyroidism (11) Hypoxia (12) Leukocytosis (13) Pneumonia (14) Seizure-like activity (15) Sepsis with organ dysfunction (20) Shortness of breath 21. Tracheal stenosis s/p tracheostomy 22. Multiple lung infections/recurrent PNA 23. Hypothyroidism 24. Right sided heart failure/cor pulmonale 25. CAMILLA 26. 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 GERD 28.chronic hypoxic respiratory failure Surgical Problems: 1. History of Aortic Root Aneurysm Resection 2. History of Bronchoscopy 3. History of Hand Surgery 4. History of Permanent Tracheostomy 5. History of Thoracotomy Family History Diabetes mellitus FH: CAD (coronary artery disease) FHx: Down syndrome Myocardial infarction Social History Communication ability - verbal stalling, slurring with mispronunciation Smoking Status: Never Smoker Smokeless Tobacco Use: No Alcohol Use: none Drug Use: none Marital Status: single Housing status: assisted living Occupational Status: disabled Immunizations History of Influenza Vaccine: N/A Influenza Vaccine Date: Dec 18, 2005 History of Tetanus Vaccine?: Unknown Tetanus Immunization Date: May 22, 2001 History of Pneumococcal: Yes Pneumococcal Date: August 15, 2012 History of Hepatitis B Vaccine: No Allergies Coded Allergies: Cephalosporins (Verified Allergy, Intermediate, rash per mother, 05/17/17) TOLERATED ZOSYN IN PAST ADMISSION AND 05/17/15 Cefaclor (Verified Allergy, Unknown, HIVES, 05/17/17) TOLERATED ZOSYN IN PAST ADMISSION AND 05/17/15 Sertraline (Verified Allergy, Unknown, INTOLERANCE, 05/17/17) Home Medications Scheduled Albuterol Sulf (Proventil 0.083% 2.5MG/3ML), 2.5 MG TR TID Amoxicillin & Pot Clavulanate (Augmentin 875-125 mg), 1 TAB PO Q12 Atorvastatin (Lipitor), 10 MG PO HS Calcium Carbonate-Cholecalcife (Oyster Shell Calcium + D), 1 TAB PO TID Citalopram Hydrobromide (Celexa), 40 MG PO DAILY Doxycycline Hyclate (Doxycycline Hyclate), PO UD Ergocalciferol (Vitamin D 41004 Unit), 50,000 UNIT PO WK Ferrous Sulfate (Kp Ferrous Sulfate), 1 TAB PO BID Fexofenadine Hcl (Danielle), 180 MG PO HS Fluconazole (Diflucan), 100 MG PO QAM Fluticasone Furoate-Vilanterol (Breo Ellipta), 1 PUFF PO DAILY Home O2 Therapy (Oxygen), LITER UD Insulin Aspart (novoLOG INSULIN PUMP ), N/A UD Levothyroxine Sodium (Levothyroxine Sodium), 150 MCG PO QAM Montelukast Sodium (Singulair), 10 MG PO HS Multiple Vitamins W/ Minerals (Therems M), 1 TAB PO QAM Omeprazole (Prilosec), 20 MG PO QAM Prednisone (Prednisone), 20 MG PO DAILY Prednisone (Prednisone), 10 MG PO DAILY Prednisone Tab (Prednisone), 30 MG PO DAILY Sodium Chloride (Gu Irrigant) (Sodium Chloride 0.9%), DAILY Sodium Fluoride (Dental) (Phos-Flur Ortho Defense), 0.5 OZ PO HS [Percussion Vest], TID Scheduled PRN Albuterol Hfa (Ventolin Hfa), 2 PUFFS INH QID PRN for Shortness of Breath Clotrimazole (Topical) (Anti-Fungal), 1 APPLN TOP TID PRN for RASH Dextrose (Diabetic Use) (Insta-Glucose), 1 TUBE PO DIRECTED PRN for LOW BLOOD SUGAR Furosemide (Lasix), 20 MG PO DAILY PRN for WEIGHT GAIN Glucagon (Glucagon Emergency Kit), 1 MG IM for UNRESPONSIVE Glucose-Vitamin C (Dex4), 1 TAB PO DAILY PRN for LOW BLOOD SUGARS Ibuprofen (Motrin), 600 MG PO TID PRN for Pain Insulin Glargine (Lantus), 0 SC UD PRN for PUMP MALFUNCTION Promethazine (Phenergan ), 12.5 MG PO Q8 PRN for Nausea or Vomiting Review of Systems Unable to obtain due to patient being minimally responsive. Per discussion with caregivers there has been no recent complaints. Specifically no pain, cough, SOB, n/v/d/c Physical Exam Vital Signs Date Time Temp Pulse Resp B/P (MAP) Pulse Ox O2 Delivery O2 Flow Rate FiO2 06/17/17 01:31 59 22 114/59 100 Trach Collar 10.0 06/17/17 01:13 50 06/17/17 01:05 Room Air 06/17/17 01:05 36.4 52 19 88/73 100 Trach Collar 10.0 General: patient somnolent, arousable, able to follow some commands Skin: warm, dry, intact, no rashes or lesions, palpable port right chest wall HEENT: NC/AT, pupils large and symmetrically reactive, anicteric sclera, MMM, tracheostomy in place Heart: +S1/S2, regular, bradycardic at 57bpm, no m/r/g Lungs: poor effort, equal air entry bilaterally, +crackles in bilateral bases, no rhonchi/wheezes, no OP lesions or evidence of tongue biting Abdomen: +BS, soft, NT/ND, no masses Extremities: warm, well perfused, no clubbing/cyanosis or edema, palpable pulses in UE/LE bilaterally Neuro: limited exam, patient nonverbal, somnolent but arousable, following simple commands, diffusely weak but moving 4 extremities on command Diagnostics Laboratory Results Results Past 24 Hours Test 06/17/17 01:30 06/17/17 01:40 Range/Units White Blood Count 6.01 4.8-10.8 K/uL Red Blood Count 2.82 4.2-5.4 M/uL Hemoglobin 9.3 12.0-16.0 g/dL Hematocrit 28.5 37-47 % Mean Corpuscular Volume 101.1 80-100 fL Mean Corpuscular Hemoglobin 33.0 25-34 pg Mean Corpuscular Hemoglobin Concent 32.6 32-36 g/dl Platelet Count 195 130-400 K/uL Mean Platelet Volume 9.6 7.4-10.4 fL Neutrophils (%) (Auto) 62.4 % Lymphocytes (%) (Auto) 22.3 % Monocytes (%) (Auto) 14.8 % Eosinophils (%) (Auto) 0.0 % Basophils (%) (Auto) 0.3 % Neutrophils # (Auto) 3.75 1.4-6.5 K/uL Lymphocytes # (Auto) 1.34 1.2-3.4 K/uL Monocytes # (Auto) 0.89 0.11-0.59 K/uL Eosinophils # (Auto) 0.00 0-0.5 K/uL Basophils # (Auto) 0.02 0-0.2 K/uL RDW Standard Deviation 54.1 36.4-46.3 fL RDW Coefficient of Variation 14.5 11.5-14.5 % Immature Granulocyte % (Auto) 0.2 % Immature Granulocyte # (Auto) 0.01 0.00-0.02 K/uL Sodium Level 142 136-145 mmol/L Potassium Level 4.1 3.5-5.1 mmol/L Chloride Level 108 98-107 mmol/L Carbon Dioxide Level 27 21-32 mmol/L Anion Gap 7.0 3-11 mmol/L Blood Urea Nitrogen 33 7-18 mg/dl Creatinine 1.28 0.60-1.20 mg/dl Estimated GFR () 55.7 Estimated GFR (Non- 48.0 BUN/Creatinine Ratio 25.5 10-20 Random Glucose 46 70-99 mg/dl Calcium Level 8.5 8.5-10.1 mg/dl Urine Color YELLOW Urine Appearance CLEAR CLEAR Urine pH 5.0 4.5-7.5 Urine Specific [place] 1.027 1.000-1.030 Urine Protein NEG NEG Urine Glucose (UA) 1+ NEG Urine Ketones TRACE NEG Urine Occult Blood NEG NEG Urine Nitrite NEG NEG Urine Bilirubin NEG NEG Urine Urobilinogen NEG NEG Urine Leukocyte Esterase NEG NEG Diagnostic Radiology CHEST 2 VIEWS ROUTINE CLINICAL HISTORY: 51 years-old Female presenting with RECENT ASPIRATION PNEUMONIA, INTERVAL CHANGE. TECHNIQUE: Portable upright AP view of the chest was obtained. COMPARISON: 05/17/2017. FINDINGS: Tracheostomy tube terminates in the mid thoracic trachea. Right subclavian Mediport terminates in the lower SVC. Atherosclerosis of aortic arch. Cardiac silhouette enlarged though less prominent than on the prior radiograph. Persistent right basilar opacities and less pronounced left basilar opacities. Small bilateral pleural effusions, right greater than left. No pneumothorax. Osteopenia suspected. Dextrocurvature of the thoracic spine. Upper abdomen normal. IMPRESSION: 1. Persistent bibasilar opacities greater on the right with right greater than left small pleural effusions. This remains concerning for pneumonia or aspiration with parapneumonic effusions. Pulmonary edema is felt to be less likely given the focality of the consolidation. Impression Assessment and Plan 51yo C female with history of Down Syndrome, DMI on insulin pump presenting with report of tonic clonic seizure in setting of hypoglycemia. Per history obtained from family and caregivers the patient's blood sugar trends are somewhat unclear. She was overtly symptomatic when her meter read BS=77 which is uncharacteristic. Her blood sugar improved en route to the hospital but was 46 on arrival to the ER. 1. Seizure - tonic clonic by EMS report, responsive to 1mg Ativan. Patient is somnolent at present which may be secondary to post-ictal state vs lingering medication effects. Seizure most likely secondary to hypoglycemic episode. -Check CT head -Check prolactin level -Consider EEG and Neuro consult - Seizure precautions -Ativan PRN seizure activity 2. Hypoglycemia - as stated above, blood sugar trend is somewhat unclear. Patient is presently on a D10 drip with improvement in blood sugars, last EJ=339 -Check BS q hourly, wean D10 gtt pending results -Evaluate insulin pump and sensor for proper function - may require assistance from clinical informatics educator or Endocrinology -C-peptide, insulin level for hypoglycemic workup -Will not use insulin pump at this time - transition back to pump prior to discharge 3. Chronic hypoxic respiratory failure - patient with tracheal stenosis s/p tracheostomy. Presently with adequate oxygenation and ventilation on trach collar. No evidence of respiratory distress. Her baseline O2 requirement is 2L via nasal cannula at rest, 4L with activity and BiPAP at night. -Continue home O2 settings. -Continue Albuterol neb TID -Continue Breo Ellipta 4. Dysphagia with silent aspiration - recurrent episodes of aspiration PNA. -Aspiration precautions -Keep NPO while patient is somnolent -Advance to mechanical soft diet with nectar thick liquids when clinical status improves -Assistance with meals -Patient presently on course of Augmentin prescribed by her PCP, Dr. Salas. She is to complete 3 more days of Augmentin. Will complete course. -Patient presently on Prednisone taper for pulmonary infection. Will complete taper 5. Hypothyroidism - stable -Continue home Synthroid 150mcg po daily 6. Hyperlipidema - stable -Continue Atorvastatin 10mg po daily 7. Depression - stable -Continue Celexa 40mg po daily 8. Seasonal allergies -Continuing Singulair 9. Ppx - Heparin for DVT prophylaxis. Omeprazole continued 10. F/E/N - D10 drip at present, will adjust pending results of fingersticks. Monitor electrolytes and replete as needed. NPO for now, advance diet as tolerated 11. Code - DNR 12. Dispo - Observation medical floor Resuscitation Status VTE Prophylaxis Will order VTE Prophylaxis: Yes
[2017-06-17] MEDS ORDERED: MAGNESIUM HYDROXIDE SUSP 30 ML UDC PO PRN (03:15)
[2017-06-17] MEDS ORDERED: FUROSEMIDE 20 MG TAB PO PRN (03:15)
[2017-06-17] MEDS ORDERED: ACETAMINOPHEN 325 MG TAB PO PRN (03:15)
[2017-06-17] MEDS ORDERED: GLUCOSE 5 GM CHEWABLE TABLET PO PRN (03:15)
[2017-06-17] MEDS ORDERED: PROMETHAZINE HCL 25 MG TAB PO PRN (03:15)
[2017-06-17] MEDS ORDERED: ZOLPIDEM TARTRATE 5 MG TAB PO PRN (03:15)
[2017-06-17] MEDS ORDERED: ALBUTEROL HFA 8 GM INHALER INH PRN (03:15)
[2017-06-17] MEDS ORDERED: IBUPROFEN 600 MG TAB PO PRN (03:15)
[2017-06-17] MEDS ORDERED: CLOTRIMAZOLE 1% CR 15 GM TUBE EXT PRN (03:15)
[2017-06-17] MEDS ORDERED: ALUMINUM/MAGNESIUM/SIMETH (MAALOX MAX) 30 ML UDC PO PRN (03:15)
[2017-06-17] MEDS ORDERED: ONDANSETRON INJ 2 MG/ML 2 ML VIAL IV PRN (03:15)
[2017-06-17] MEDS ORDERED: POLYETHYLENE (MIRALAX) 17 GM PACK PO PRN (03:15)
[2017-06-17] MEDS ORDERED: PHARMACY GLYCEMIC MGMT CONSULT PRN (03:38)
[2017-06-17] MEDS ORDERED: DEXTROSE 50% 50 ML SYR IV PRN (03:45)
[2017-06-17] MEDS ORDERED: GLUCAGON FOR INJ 1 MG VIAL SQ PRN (03:45)
[2017-06-17] MEDS ORDERED: GLUCOSE 10 TABS/TUBE PO PRN (03:45)
[2017-06-17] MEDS ORDERED: GLUCOSE 40% GEL 15 GM TUBE PO PRN (03:45)
[2017-06-17] MEDS ORDERED: LORAZEPAM 2 MG/ML 1 ML VIAL IV PRN (04:00)
[2017-06-17 04:29] LABS: ALBUMIN 2.7 gm/dl (3.4-5.0); ALT/SGPT 26 U/L (12-78); AST/SGOT 11 U/L (15-37); BLOOD UREA NITROGEN 30 mg/dl (7-18); CALCIUM 8.4 mg/dl (8.5-10.1); CARBON DIOXIDE 28 mmol/L (21-32); GLUCOSE 295 mg/dl (70-99); POTASSIUM 4.4 mmol/L (3.5-5.1); SODIUM 138 mmol/L (136-145)
[2017-06-17 04:32] LABS: ALKALINE PHOSPHATASE 76 U/L (45-117)
[2017-06-17] MEDS ORDERED: IV FLUIDS COMPLETED PRN (04:45)
[2017-06-17] MEDS ORDERED: DEXTROSE 5% 1000ML 1,000 ML IV SCH ×2 (05:00→09:45)
[2017-06-17] MEDS: LEVOTHYROXINE 150 MCG TAB PO SCH (05:18)
[2017-06-17] MEDS: INSULIN REGULAR 250 UNITS in SODIUM CHLORIDE 0.9% 250ML 250 ML IV SCH ×19 (05:21→23:02)
[2017-06-17] MEDS ORDERED: LORAZEPAM INJ 1 MG in SYRINGE 0.5 ML IV PRN (05:45)
--- NOTE | 2017-06-17 07:11 | DIAGNOSTIC IMAGING REPORT ---
HEAD WITHOUT CONTRAST (CT) CLINICAL HISTORY: 51 years-old Female presenting with Seizure Like Activity - no seizure history. TECHNIQUE: Multidetector CT imaging of the head was performed without the use of intravenous contrast. IV contrast: None. A dose lowering technique was used consistent with the principles of ALARA (as low as reasonably achievable). COMPARISON: None. CT DOSE (mGy.cm): The estimated cumulative dose is 1612.45 mGy.cm. FINDINGS: Title Investigator topogram: Unremarkable. Motion artifact at the vertex limits evaluation in this region. Proportional ventricular and sulcal prominence, likely age-related parenchymal volume loss. Brain parenchyma normal in appearance with preserved alexander-white differentiation. No mass effect or midline shift. No hemorrhage or acute territorial infarct. No extra-axial fluid collection. Paranasal sinuses and mastoid air cells clear. Calvarium intact. IMPRESSION: 1. No acute intracranial abnormality. Electronically signed by: Jamal Christiansen M.D. 06/17/2017 7:10 AM Dictated Date/Time: 06/17/2017 6:51 AM
[2017-06-17] MEDS: ALBUTEROL 0.083% NEBU SOLN 3 ML VIAL INH SCH ×3 (07:12→19:37)
--- NOTE | 2017-06-17 08:34 | Family Medicine Progress Note ---
Progress Note Date of Service Jun 17, 2017. Subjective Pt evaluation today including: conversation w/ patient, conversation w/ family (mother) Found patient early this morning tossing and turning a bit in bed, but appeared comfortable. Not speaking, so history per mother, who recounts events in the HPI. Says that the patient has not yet returned to her baseline of fully interactive. Mother denies any immediate medical concerns. This afternoon, patient's mother expressed her concerns about the insulin pump. Says that on two occasions it seemed like the pump was found empty, filled up , but then soon thereafter found to be empty again. She also notes two episodes (one being last night) where the patient was noted to have low blood sugars that did not respond to glucagon, though it is unclear if this is a result of the pump malfunctioning and delivering the equivalent of an overdose at those times. Otherwise she had no other acute concerns. Additional Comments: Unable to obtain due to patient being presently non-verbal. Medications Current Inpatient Medications Medications (Trade) Dose Ordered Sig/Rene Route Start Time Stop Time Status Last Admin Dose Admin Acetaminophen (Tylenol Tab) 650 mg Q4H PRN PO 06/17/17 03:15 07/17/17 03:14 Al Hydrox/Mg Hydrox/Simethicone (Maalox Max Susp) 15 ml Q4H PRN PO 06/17/17 03:15 07/17/17 03:14 Magnesium Hydroxide (Milk Of Magnesia Susp) 30 ml Q6H PRN PO 06/17/17 03:15 07/17/17 03:14 Polyethylene (Miralax Powder Packet) 17 gm DAILY PRN PO 06/17/17 03:15 07/17/17 03:14 Zolpidem Tartrate (Ambien Tab) 5 mg HSZ PRN PO 06/17/17 03:15 07/17/17 03:14 Ondansetron HCl (Zofran Inj) 4 mg Q6H PRN IV 06/17/17 03:15 07/17/17 03:14 Heparin Sodium (Porcine) (Heparin Sq 5000 Unit/0.5ml) 5,000 unit Q12H SQ 06/17/17 08:00 07/17/17 07:59 Albuterol (Ventolin Hfa Inhaler) 2 puffs QID PRN INH 06/17/17 03:15 07/17/17 03:14 Albuterol Sulfate (Ventolin 0.083% 2.5MG/3ML Neb) 2.5 mg TIDR INH 06/17/17 09:00 07/17/17 08:59 06/17/17 07:12 2.5 MG Atorvastatin Calcium (Lipitor Tab) 10 mg HS PO 06/17/17 21:00 07/17/17 20:59 Citalopram Hydrobromide (celeXA TAB) 40 mg DAILY PO 06/17/17 09:00 07/17/17 08:59 Clotrimazole (Lotrimin 1% Crm) 1 appln TID PRN EXT 06/17/17 03:15 07/17/17 03:14 Fexofenadine HCl (Danielle Tab) 180 mg HS PO 06/17/17 21:00 07/17/17 20:59 Furosemide (Lasix Tab) 20 mg DAILY PRN PO 06/17/17 03:15 07/17/17 03:14 Ibuprofen (Motrin Tab) 600 mg TID PRN PO 06/17/17 03:15 07/17/17 03:14 Levothyroxine Sodium (Synthroid Tab) 150 mcg DAILYBB PO 06/17/17 06:00 07/17/17 05:59 06/17/17 05:18 150 MCG Montelukast Sodium (Singulair Tab) 10 mg HS PO 06/17/17 21:00 07/17/17 20:59 Promethazine HCl (Phenergan Tab) 12.5 mg Q8 PRN PO 06/17/17 03:15 07/17/17 03:14 Ferrous Sulfate (Feosol Tab) 325 mg BID PO 06/17/17 09:00 07/17/17 08:59 Pantoprazole Sodium (Protonix Tab) 40 mg QAM PO 06/17/17 09:00 07/17/17 08:59 Miscellaneous Information (Consult Glycemic Management Pharmacy) 1 ea UD PRN N/A 06/17/17 03:38 07/17/17 03:37 Glucose (Glucose 40% Gel) 15-30 GRAMS 15 GRAMS... UD PRN PO 06/17/17 03:45 07/17/17 03:44 Glucose (Glucose Chew Tab) 4-8 Tablets 4 Tabl... UD PRN PO 06/17/17 03:45 07/17/17 03:44 Dextrose (Dextrose 50% 50ML Syringe) 25-50ML OF 50% DW IV FOR... UD PRN IV 06/17/17 03:45 07/17/17 03:44 Glucagon (Glucagon Inj) 1 mg UD PRN SQ 06/17/17 03:45 07/17/17 03:44 Lorazepam (Ativan Inj) 1 mg Q10M PRN IV 06/17/17 04:00 Amoxicillin/ Clavulanate Potassium (Augmentin Tab) 875 mg BIDM PO 06/17/17 08:00 06/24/17 07:59 Prednisone (PredniSONE TAB) 60 mg DAILY PO 06/17/17 09:00 07/17/17 08:59 Miscellaneous Information (Order Awaiting Action) 1 ea QS N/A 06/17/17 08:00 07/17/17 07:59 Miscellaneous (Iv Fluids Completed) 1 ea PRN PRN N/A 06/17/17 04:45 06/17/18 04:44 Insulin Human Regular 250 units/ Sodium Chloride 252.5 ml @ 0 mls/hr Q24H IV 06/17/17 05:15 07/17/17 05:14 06/17/17 07:46 1.1 MLS/HR Lorazepam 1 mg/ Syringe 1 ml @ 1 mls/min Q10M PRN IV 06/17/17 05:45 Objective Vital Signs Date Time Temp Pulse Resp B/P (MAP) Pulse Ox O2 Delivery O2 Flow Rate FiO2 06/17/17 07:45 37.0 73 18 121/72 (88) 97 Room Air 06/17/17 07:12 76 18 93 Trach Collar 28 06/17/17 04:30 36.5 73 18 125/68 96 Trach Collar 28 06/17/17 04:05 56 20 127/64 100 06/17/17 04:00 56 20 127/64 100 Trach Collar 10.0 06/17/17 03:30 57 19 120/61 100 Trach Collar 10.0 06/17/17 03:02 48 23 130/71 100 Trach Collar 10.0 06/17/17 02:30 52 21 117/64 100 Trach Collar 10.0 06/17/17 02:00 58 22 113/62 100 Trach Collar 10.0 06/17/17 01:31 59 22 114/59 100 Trach Collar 10.0 06/17/17 01:13 50 06/17/17 01:05 Room Air 06/17/17 01:05 36.4 52 19 88/73 100 Trach Collar 10.0 Physical Exam Notes: General Appearance: Found patient resting comfortably, opened eyes to voice, followed "squeeze hand" command, but otherwise preferred keeping eyes closed. No speaking, some head nodding. Did not appear in acute distress. CV: +S1S2 RRR, no murmur. Pulm: Minimal crackles in bilateral bases. No accessory muscle use. NC oxygen in place. Abdomen: +BS, soft, non-tender, non-distended. Extremities: No pedal edema or calf tenderness. Turning about in bed easily, good carrot grader inspector strength. Neuro: No gross neuro deficits, but is not awake/alert enough to follow most commands (limiting exam). Lines: PIV. Laboratory Results 06/17/17 01:30 Red Blood Count 2.82, Mean Corpuscular Volume 101.1, Mean Corpuscular Hemoglobin 33.0, Mean Corpuscular Hemoglobin Concent 32.6, Mean Platelet Volume 9.6, Neutrophils (%) (Auto) 62.4, Lymphocytes (%) (Auto) 22.3, Monocytes (%) ( Auto) 14.8, Eosinophils (%) (Auto) 0.0, Basophils (%) (Auto) 0.3, Neutrophils # (Auto) 3.75, Lymphocytes # (Auto) 1.34, Monocytes # (Auto) 0.89, Eosinophils # ( Auto) 0.00, Basophils # (Auto) 0.02 06/17/17 03:49 Test 06/17/17 01:30 06/17/17 01:40 06/17/17 03:49 06/17/17 06:26 White Blood Count 6.01 K/uL (4.8-10.8) Red Blood Count 2.82 M/uL (4.2-5.4) Hemoglobin 9.3 g/dL (12.0-16.0) Hematocrit 28.5 % (37-47) Mean Corpuscular Volume 101.1 fL (80-100) Mean Corpuscular Hemoglobin 33.0 pg (25-34) Mean Corpuscular Hemoglobin Concent 32.6 g/dl (32-36) Platelet Count 195 K/uL (130-400) Mean Platelet Volume 9.6 fL (7.4-10.4) Neutrophils (%) (Auto) 62.4 % Lymphocytes (%) (Auto) 22.3 % Monocytes (%) (Auto) 14.8 % Eosinophils (%) (Auto) 0.0 % Basophils (%) (Auto) 0.3 % Neutrophils # (Auto) 3.75 K/uL (1.4-6.5) Lymphocytes # (Auto) 1.34 K/uL (1.2-3.4) Monocytes # (Auto) 0.89 K/uL (0.11-0.59) Eosinophils # (Auto) 0.00 K/uL (0-0.5) Basophils # (Auto) 0.02 K/uL (0-0.2) RDW Standard Deviation 54.1 fL (36.4-46.3) RDW Coefficient of Variation 14.5 % (11.5-14.5) Immature Granulocyte % (Auto) 0.2 % Immature Granulocyte # (Auto) 0.01 K/uL (0.00-0.02) Urine Color YELLOW Urine Appearance CLEAR (CLEAR) Urine pH 5.0 (4.5-7.5) Urine Specific [place] 1.027 (1.000-1.030) Urine Protein NEG (NEG) Urine Glucose (UA) 1+ (NEG) Urine Ketones TRACE (NEG) Urine Occult Blood NEG (NEG) Urine Nitrite NEG (NEG) Urine Bilirubin NEG (NEG) Urine Urobilinogen NEG (NEG) Urine Leukocyte Esterase NEG (NEG) Anion Gap 7.0 mmol/L (3-11) Estimated GFR () 66.8 Estimated GFR (Non- 57.7 BUN/Creatinine Ratio 27.3 (10-20) Calcium Level 8.4 mg/dl (8.5-10.1) Magnesium Level 1.8 mg/dl (1.8-2.4) Total Bilirubin 0.2 mg/dl (0.2-1) Aspartate Amino Transf (AST/SGOT) 11 U/L (15-37) Alanine Aminotransferase (ALT/SGPT) 26 U/L (12-78) Alkaline Phosphatase 76 U/L (45-117) Total Protein 6.0 gm/dl (6.4-8.2) Albumin 2.7 gm/dl (3.4-5.0) Globulin 3.3 gm/dl (2.5-4.0) Albumin/Globulin Ratio 0.8 (0.9-2) Folate 19.56 ng/mL (>5.38) Prolactin 20.92 ng/mL Bedside Glucose 480 mg/dl (70-90) Assessment and Plan 51 yo female admitted on [id number] for seizure in setting of hypoglycemia. 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 Tonic-clonic seizure: For approx 45 minutes per EMS, not responding to glucagon , but responding to ativan 1 mg. Blood sugar en route to hospital was 46. See "Hypoglycemia/DM1" below. CT head here showed nothing acute. Normal prolactin level. This am, has some residual fatigue but is responding to commands, but not returning to baseline as quickly as family at bedside had expected. - Had a lengthy discussion with family about her level of present fatigue. It is most likely multifactorial, given she had a prolonged seizure, required a dose of benzodiazepines, and did not get her normal restorative sleep overnight. Reassured them that there is no clear evidence of an acute intracranial, infectious, toxic, metabolic, or other cause of her relative prolonged fatigue. Will order an EEG in the remote possibility that she has subclinical ongoing seizure activity. - Ativan prn on standby for witnessed seizure activity as inpatient. Hypoglycemia / DM1: Mother states long history of brittle diabetes. Spoke with inpatient pharmacy, to whom patient is well-known. History of needing approx Novolog 10 units per day, but will drop precipitously if over-corrected. Previously had received glucose control as inpatient via insulin IV, then often transition back to pump at discharge. Most recently has been on steroids for a 'pulmonary infection'. Family is concerned that her insulin pump may have malfunctioned (e.g. that it gave a full day's dose of insulin very quickly just prior to last night's seizure event). - Monitoring here with pharmacy glycemic consult (greatly appreciated). Once more neurologically alert / at baseline, will consider restarting her home insulin pump here in a monitored setting and evaluate for possible malfunction. - C peptide from admission pending. Chronic hypoxic respiratory failure: PMH tracheal stenosis s/p tracheostomy. Baseline oxygen requirement is 2 L via nasal cannula at rest, 4 L with activity and BiPAP at night. On albuterol neb TID scheduled and QID prn. On singulair daily. Here is breathing comfortably, afebrile thus far, but with some crackles in the bases. - Will obtain CXR in remote possibility that she had a major aspiration event prompting this seizure. Dysphagia with silent aspiration: History of same, with admission from [id number]. Prophy bactrim briefly held, then advised to restart it on . More recently started on a course of augmentin (planned stop on ) and prednisone taper for a referenced pulmonary infection. Is on mechanical soft diet with nectar thick liquids. - Prednisone taper schedule: 30 mg on Apr. 20 mg on 06-21Apr. 10 mg on Apr. Hypothyroidism: On home synthroid 150 mcg daily. Hyperlipidemia: On home atorvastatin 10 mg daily. Depression: On home celexa 40 mg daily. GERD: At home on prilosec 20 daily. As inpatient on protonix 40 daily. Seasonal allergies: On home singulair Code status: DNR Diet: DM2 Diet, mechanical soft (ground), nectar thick DVT prophy: Heparin q12h. PT/OT: Deferred. Disbo: Admit for observation to medical floor. Resident Physician Supervision Note: I interviewed and examined the patient. Discussed with Dr. Lui and agree with findings and plan as documented in the note. Any exceptions or clarifications are listed here: None Documented By: Kane Mcdermott >30mins face to face >50% discussing/updating/answering questions w family pt still sleepy but easily awakens and follwos commands fmaily notes sleepy is not her normal vitals noted nad breathing unlabored lungs cta b/l no r/r/w no focal neuro deficits follows commands and verbally responds in one word answers somnolence - suspect multifactorial between having had long seizure, low then high sugars, overnight admission interrupting true sleep all superimposed on basleine frailty. EEG to r/o ongoing seizures (highly unlikely) CXR to r/o sublcinical worsneing aspiration pneumonia (unlikley w clear lungs and stable vitals) otherwise as above Resident Tracking Resident Involvement: Resident Care Provided Care Provided: Adult Hospital Medicine (inpatient)
[2017-06-17] MEDS: CITALOPRAM 40 MG TAB PO SCH (08:39)
[2017-06-17] MEDS: AMOXICILLIN/CLAVULANATE TAB 875 MG TAB PO SCH ×2 (08:39→18:04)
[2017-06-17] MEDS: HEPARIN SOD 5000 UNIT/0.5 ML CARP SQ SCH ×2 (08:39→20:10)
[2017-06-17] MEDS: PANTOprazole SOD 40 MG TAB PO SCH (08:40)
[2017-06-17] MEDS: FERROUS SULFATE 325 MG TAB PO SCH ×2 (08:40→21:08)
[2017-06-17] MEDS ORDERED: FLUCONAZOLE 100 MG TAB PO SCH (09:00)
[2017-06-17] MEDS: INSULIN ASPART 100 UNITS/ML 3 ML PEN SC SCH ×4 (09:34→21:18)
--- NOTE | 2017-06-17 11:39 | Pharmacy Progress Note ---
Glycemic Control Intl Consult Date of Service Jun 17, 2017. Scope Glycemic Pharmacist consulted by Dr Crowley on 06/17/17 for glycemic control and to write orders per [facility] inpatient glycemic control protocol Objective Weight (Kilograms): 63.300 Accuchecks BSG (last 24hrs): Test 06/17/17 01:30 06/17/17 02:12 06/17/17 03:03 06/17/17 03:32 Random Glucose 46 mg/dl (70-99) Bedside Glucose 88 mg/dl (70-90) 155 mg/dl (70-90) 227 mg/dl (70-90) Test 06/17/17 03:34 06/17/17 03:49 06/17/17 04:44 06/17/17 06:26 Bedside Glucose 228 mg/dl (70-90) 339 mg/dl (70-90) 480 mg/dl (70-90) Random Glucose 295 mg/dl (70-99) Test 06/17/17 09:52 Bedside Glucose 507 mg/dl (70-90) Laboratory Data (last 24hrs) Test 06/17/17 01:30 06/17/17 03:49 Anion Gap 7.0 mmol/L 7.0 mmol/L BUN/Creatinine Ratio 25.5 27.3 Blood Urea Nitrogen 33 mg/dl 30 mg/dl Creatinine 1.28 mg/dl 1.10 mg/dl Potassium Level 4.1 mmol/L 4.4 mmol/L Sodium Level 142 mmol/L 138 mmol/L White Blood Count 6.01 K/uL Red Blood Count 2.82 M/uL Hemoglobin 9.3 g/dL Hematocrit 28.5 % Mean Corpuscular Volume 101.1 fL Mean Corpuscular Hemoglobin 33.0 pg Mean Corpuscular Hemoglobin Concent 32.6 g/dl Platelet Count 195 K/uL Mean Platelet Volume 9.6 fL Neutrophils (%) (Auto) 62.4 % Lymphocytes (%) (Auto) 22.3 % Monocytes (%) (Auto) 14.8 % Eosinophils (%) (Auto) 0.0 % Basophils (%) (Auto) 0.3 % Neutrophils # (Auto) 3.75 K/uL Lymphocytes # (Auto) 1.34 K/uL Monocytes # (Auto) 0.89 K/uL Eosinophils # (Auto) 0.00 K/uL Basophils # (Auto) 0.02 K/uL Recent Pertinent Medications Outpatient Anti-diabetic Regimen: * Novolog insulin pump * Basal rates: 0.25-0.6units/hr * Sensitivity Factor = 65 mg/dl/unit for BSG >150 mg/dl * Carb ratio = 1 unit for every 15g CHO consumed * A1c = 8.8 % 05/16/17 Risk Factors for Insulin Resistance: * Steroids: Prednisone 60 mg PO daily * Infection: Augmentin * IVF: D5 @ 30 ml/hr (KVO for port) * Diet: T1DM Assessment & Plan ASSESSMENT: * 51 yr old T1DM female admitted with seizure possibly due to hypoglycemia. Patient has chronic respiratory failure and dysphagia with silent aspiration. She is currently on Prednisone 60 mg daily and Augmentin for aspiration pneumonia. * Valorie is a brittle diabetic and is well known to the Pharmacy Glycemic Service. During previous admissions, we have maintained her on a IV insulin infusion and then transitioned back to her Novolog pump when nearing discharge. We have trialed BID Lantus in the past, which she has not tolerated due to development of hypoglycemia. PLAN FOR INPATIENT GLYCEMIC CONTROL: * Continue IV insulin infusion per protocol with max infusion rate of 4 units/hr * Tighten Goal Range to 140 - 220 mg/dl * Bolus Insulin * NOVOLOG per scale ACHS or Q6hrs while NPO * Correction Factor: -- (per drip) mg/dL/unit * Nutritional / Prandial insulin per carb ratio of 1 unit per 8 grams CHO consumed (a fixed carb ratio will be utilized rather than the carb ratio calculated by the Insulin Infusion to avoid over or under correction for meals) * Please note that the plan above was derived based on current level of insulin resistance and hospital stress. These recommendations are appropriate for inpatient admission only. Plan of care upon discharge will need to be reassessed to avoid potential outpatient hypo/hyperglycemia. Thank you.
[2017-06-17] MEDS ORDERED: SODIUM CHLORIDE 0.9% 1000ML 1,000 ML IV SCH (15:00)
[2017-06-17] MEDS: MONTELUKAST SOD 10 MG TAB PO SCH (21:08)
[2017-06-17] MEDS: ATORVASTATIN 10 MG TAB PO SCH (21:08)
[2017-06-17] MEDS: FEXOFENADINE HCL 180 MG TAB PO SCH (21:08)
--- NOTE | 2017-06-17 22:52 | DIAGNOSTIC IMAGING REPORT ---
CHEST 2 VIEWS ROUTINE CLINICAL HISTORY: base crackles, hypoxia COMPARISON STUDY: Chest radiograph May 18, 2017. FINDINGS: A right subclavian [id number] and tracheostomy tube are in place. There is no pneumothorax. Right basilar opacity has improved. Interstitial thickening is slightly improved. There is no evidence for pulmonary edema. Cardiomediastinal silhouette is stable. IMPRESSION: Interval improvement in right basilar opacity and interstitial thickening which favors improving pneumonia. Electronically signed by: Manny Gorman M.D. 06/17/2017 10:50 PM Dictated Date/Time: 06/17/2017 10:49 PM
[2017-06-18] VITALS (7 sets, daily range): BP systolic 114–146; BP diastolic 69–78; PULSE 59–85; TEMP 36.8–36.9; O2SAT 94–98
[2017-06-18] MEDS: INSULIN REGULAR 250 UNITS in SODIUM CHLORIDE 0.9% 250ML 250 ML IV SCH ×14 (00:38→16:06)
[2017-06-18] MEDS: LEVOTHYROXINE 150 MCG TAB PO SCH (05:40)
--- NOTE | 2017-06-18 07:09 | Family Medicine Progress Note ---
Progress Note Date of Service Jun 18, 2017. Subjective Pt evaluation today including: conversation w/ patient, conversation w/ family (mother) Early this morning, found patient resting in the bed. Opens eyes to name, says tay, says or nods her head that she's doing okay and that she has no current pain or difficulty breathing. No apparent acute medical concerns by the patient. Mother is in the room, says that the patient returned to her baseline last night and continuing into this morning, laughing and joking with her, and that she no longer has any immediate concerns for her daughter. Constitutional: No fever, No chills Respiratory: No cough Cardiovascular: No chest pain Abdomen: No pain, No nausea, No vomiting Medications Current Inpatient Medications Medications (Trade) Dose Ordered Sig/Rene Route Start Time Stop Time Status Last Admin Dose Admin Acetaminophen (Tylenol Tab) 650 mg Q4H PRN PO 06/17/17 03:15 07/17/17 03:14 Al Hydrox/Mg Hydrox/Simethicone (Maalox Max Susp) 15 ml Q4H PRN PO 06/17/17 03:15 07/17/17 03:14 Magnesium Hydroxide (Milk Of Magnesia Susp) 30 ml Q6H PRN PO 06/17/17 03:15 07/17/17 03:14 Polyethylene (Miralax Powder Packet) 17 gm DAILY PRN PO 06/17/17 03:15 07/17/17 03:14 Zolpidem Tartrate (Ambien Tab) 5 mg HSZ PRN PO 06/17/17 03:15 07/17/17 03:14 Ondansetron HCl (Zofran Inj) 4 mg Q6H PRN IV 06/17/17 03:15 07/17/17 03:14 Heparin Sodium (Porcine) (Heparin Sq 5000 Unit/0.5ml) 5,000 unit Q12H SQ 06/17/17 08:00 07/17/17 07:59 06/17/17 20:10 5,000 UNIT Albuterol (Ventolin Hfa Inhaler) 2 puffs QID PRN INH 06/17/17 03:15 07/17/17 03:14 Albuterol Sulfate (Ventolin 0.083% 2.5MG/3ML Neb) 2.5 mg TIDR INH 06/17/17 09:00 07/17/17 08:59 06/17/17 19:37 2.5 MG Atorvastatin Calcium (Lipitor Tab) 10 mg HS PO 06/17/17 21:00 07/17/17 20:59 06/17/17 21:08 10 MG Citalopram Hydrobromide (celeXA TAB) 40 mg DAILY PO 06/17/17 09:00 07/17/17 08:59 06/17/17 08:39 40 MG Clotrimazole (Lotrimin 1% Crm) 1 appln TID PRN EXT 06/17/17 03:15 07/17/17 03:14 Fexofenadine HCl (Danielle Tab) 180 mg HS PO 06/17/17 21:00 07/17/17 20:59 06/17/17 21:08 180 MG Furosemide (Lasix Tab) 20 mg DAILY PRN PO 06/17/17 03:15 07/17/17 03:14 Ibuprofen (Motrin Tab) 600 mg TID PRN PO 06/17/17 03:15 07/17/17 03:14 Levothyroxine Sodium (Synthroid Tab) 150 mcg DAILYBB PO 06/17/17 06:00 07/17/17 05:59 06/18/17 05:40 150 MCG Montelukast Sodium (Singulair Tab) 10 mg HS PO 06/17/17 21:00 07/17/17 20:59 06/17/17 21:08 10 MG Promethazine HCl (Phenergan Tab) 12.5 mg Q8 PRN PO 06/17/17 03:15 07/17/17 03:14 Ferrous Sulfate (Feosol Tab) 325 mg BID PO 06/17/17 09:00 07/17/17 08:59 06/17/17 21:08 325 MG Pantoprazole Sodium (Protonix Tab) 40 mg QAM PO 06/17/17 09:00 07/17/17 08:59 06/17/17 08:40 40 MG Miscellaneous Information (Consult Glycemic Management Pharmacy) 1 ea UD PRN N/A 06/17/17 03:38 07/17/17 03:37 Glucose (Glucose 40% Gel) 15-30 GRAMS 15 GRAMS... UD PRN PO 06/17/17 03:45 07/17/17 03:44 Glucose (Glucose Chew Tab) 4-8 Tablets 4 Tabl... UD PRN PO 06/17/17 03:45 07/17/17 03:44 Dextrose (Dextrose 50% 50ML Syringe) 25-50ML OF 50% DW IV FOR... UD PRN IV 06/17/17 03:45 07/17/17 03:44 Glucagon (Glucagon Inj) 1 mg UD PRN SQ 06/17/17 03:45 07/17/17 03:44 Lorazepam (Ativan Inj) 1 mg Q10M PRN IV 06/17/17 04:00 Amoxicillin/ Clavulanate Potassium (Augmentin Tab) 875 mg BIDM PO 06/17/17 08:00 06/24/17 07:59 06/17/17 18:04 875 MG Miscellaneous Information (Order Awaiting Action) 1 ea QS N/A 06/17/17 08:00 07/17/17 07:59 Miscellaneous (Iv Fluids Completed) 1 ea PRN PRN N/A 06/17/17 04:45 06/17/18 04:44 Insulin Human Regular 250 units/ Sodium Chloride 252.5 ml @ 0 mls/hr Q24H IV 06/17/17 05:15 07/17/17 05:14 06/18/17 06:40 1.4 MLS/HR Lorazepam 1 mg/ Syringe 1 ml @ 1 mls/min Q10M PRN IV 06/17/17 05:45 Insulin Aspart (novoLOG ASPART) Fixed CHO Ratio= 1 unit pe... PCHS SC 06/17/17 09:15 07/17/17 09:14 06/17/17 21:18 1 UNITS Sodium Chloride 1,000 ml @ 30 mls/hr Q24H IV 06/17/17 15:00 07/17/17 14:59 06/17/17 16:41 30 MLS/HR Prednisone (PredniSONE TAB) 30 mg Taper DAILY PO 06/18/17 09:00 06/25/17 08:59 Objective Vital Signs Date Time Temp Pulse Resp B/P (MAP) Pulse Ox O2 Delivery O2 Flow Rate FiO2 06/17/17 23:56 Nasal Cannula 2.0 06/17/17 22:55 37.2 68 16 113/67 (82) 97 Nasal Cannula 2.0 06/17/17 19:37 85 18 98 Nasal Cannula 2.0 06/17/17 16:30 98 Nasal Cannula 2.0 06/17/17 14:55 63 18 98 Nasal Cannula 2.0 06/17/17 14:50 37.3 63 18 125/78 (94) 98 Nasal Cannula 2.0 06/17/17 13:19 36.9 94 12 92/61 (71) 94 Nasal Cannula 2.0 06/17/17 10:12 97 Nasal Cannula 2.0 06/17/17 07:45 37.0 73 18 121/72 (88) 97 Room Air 06/17/17 07:15 Nasal Cannula 2.0 06/17/17 07:12 76 18 93 Trach Collar 28 Physical Exam Notes: General Appearance: Found patient resting comfortably, opened eyes to voice, says hello and that she's okay, but otherwise preferred keeping eyes closed. No speaking, some head nodding. Did not appear in acute distress. In afternoon , awake, smiling, giving 'thumbs up' and very interactive. CV: +S1S2 RRR, no murmur. Pulm: Minimal crackles in bilateral bases. No accessory muscle use. Abdomen: +BS, soft, non-tender, non-distended. Extremities: No pedal edema or calf tenderness. Turning about in bed easily, good profiler hand strength. Neuro: No gross neuro deficits. Lines: PIV. Laboratory Results 06/18/17 08:35 Red Blood Count 3.26, Mean Corpuscular Volume 101.2, Mean Corpuscular Hemoglobin 33.1, Mean Corpuscular Hemoglobin Concent 32.7, Mean Platelet Volume 9.2, Neutrophils (%) (Auto) 55.6, Lymphocytes (%) (Auto) 36.1, Monocytes (%) ( Auto) 7.4, Eosinophils (%) (Auto) 0.2, Basophils (%) (Auto) 0.5, Neutrophils # ( Auto) 3.31, Lymphocytes # (Auto) 2.15, Monocytes # (Auto) 0.44, Eosinophils # ( Auto) 0.01, Basophils # (Auto) 0.03 06/18/17 08:35 Test 06/18/17 08:29 06/18/17 08:35 Bedside Glucose 119 mg/dl (70-90) White Blood Count 5.95 K/uL (4.8-10.8) Red Blood Count 3.26 M/uL (4.2-5.4) Hemoglobin 10.8 g/dL (12.0-16.0) Hematocrit 33.0 % (37-47) Mean Corpuscular Volume 101.2 fL (80-100) Mean Corpuscular Hemoglobin 33.1 pg (25-34) Mean Corpuscular Hemoglobin Concent 32.7 g/dl (32-36) Platelet Count 209 K/uL (130-400) Mean Platelet Volume 9.2 fL (7.4-10.4) Neutrophils (%) (Auto) 55.6 % Lymphocytes (%) (Auto) 36.1 % Monocytes (%) (Auto) 7.4 % Eosinophils (%) (Auto) 0.2 % Basophils (%) (Auto) 0.5 % Neutrophils # (Auto) 3.31 K/uL (1.4-6.5) Lymphocytes # (Auto) 2.15 K/uL (1.2-3.4) Monocytes # (Auto) 0.44 K/uL (0.11-0.59) Eosinophils # (Auto) 0.01 K/uL (0-0.5) Basophils # (Auto) 0.03 K/uL (0-0.2) RDW Standard Deviation 55.1 fL (36.4-46.3) RDW Coefficient of Variation 14.9 % (11.5-14.5) Immature Granulocyte % (Auto) 0.2 % Immature Granulocyte # (Auto) 0.01 K/uL (0.00-0.02) Anion Gap 7.0 mmol/L (3-11) Est Creatinine Clear Calc Drug Dose 60.2 ml/min Estimated GFR () 90.0 Estimated GFR (Non- 77.7 BUN/Creatinine Ratio 20.2 (10-20) Calcium Level 8.8 mg/dl (8.5-10.1) Assessment and Plan 51 yo female admitted on [id number] for seizure in setting of hypoglycemia. 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 Tonic-clonic seizure: Approx 45 min in duration, responding to ativan 1 mg, on late Apr. Blood sugar en route to hospital was 46. See "Hypoglycemia/DM1" below. CT head here showed nothing acute. Had some noted fatigue for < 24 hours after this event, likely multifactorial from the prolonged seizure + benzo + lack of actual sleep overnight. This morning, mother states patient is back at her baseline. 03Apr EEG noted no evidence of seizure and suggested a moderate encephalopathy of nonspecific etiology. No further seizure-like activity noted thus far in this hospitalization. - Ativan prn on standby in case of witnessed seizure activity as inpatient. Hypoglycemia / DM1: Mother states long history of brittle diabetes. History of needing approx Novolog 10 units per day, but will drop precipitously if over- corrected. Previously had received glucose control as inpatient via insulin IV , then often transition back to pump at discharge. Most recently has been on steroids for a 'pulmonary infection'. Family is concerned that her insulin pump may have malfunctioned (e.g. that it gave a full day's dose of insulin very quickly just prior to last night's seizure event). Had multiple conversations with pharmacy today, who kindly did a great deal of excellent leg work. Please see their full note for details. In brief, are currently working towards determining if the patient's pump malfunctioned and needs stat replacement. - Continued inpatient monitoring here with pharmacy glycemic consult (greatly appreciated). - C peptide from admission pending. Chronic hypoxic respiratory failure: PMH tracheal stenosis s/p tracheostomy. Baseline oxygen requirement is 2 L via nasal cannula at rest, 4 L with activity and BiPAP at night. On albuterol neb TID scheduled and QID prn. On Singulair daily. Here is breathing comfortably, afebrile thus far, but with some crackles in the bases. 02Apr CXR notes interval improvement in right basilar opacity (favoring improving PNA). Dysphagia with silent aspiration: History of same, with admission from - [id number]. Prophy bactrim briefly held, then advised to restart it on . More recently started on a course of augmentin (planned stop on Apr) and prednisone taper for a referenced pulmonary infection. Is on mechanical soft diet with nectar thick liquids. - Prednisone taper schedule: 30 mg on Apr. 20 mg on 06-21Apr. 10 mg on Apr. Hypothyroidism: On home synthroid 150 mcg daily. Hyperlipidemia: On home atorvastatin 10 mg daily. Depression: On home celexa 40 mg daily. GERD: At home on prilosec 20 daily. As inpatient on protonix 40 daily. Seasonal allergies: On home singulair Code status: DNR Diet: DM2 Diet, mechanical soft (ground), nectar thick DVT prophy: Heparin q12h. PT/OT: Deferred. Disbo: Admit to medical floor. Resident Physician Supervision Note: I interviewed and examined the patient. Discussed with Dr. Lui and agree with findings and plan as documented in the note. Any exceptions or clarifications are listed here: None Documented By: Kane Mcdermott is her normal self again mom notes no meaningful HPI or ROS obtainable from pt but pleasant and smiling vitals noted nad breathing unlabored hypoglycmemia seizure --> rebound hyperglycemia, fatigue/somnolence and multifactorial encephalopathy - resolved. have to ensure pump working right to know she'll be safe at home. otherwise as above Resident Tracking Resident Involvement: Resident Care Provided Care Provided: Adult Hospital Medicine (inpatient)
[2017-06-18] MEDS: ALBUTEROL 0.083% NEBU SOLN 3 ML VIAL INH SCH ×3 (07:14→19:39)
[2017-06-18] MEDS: HEPARIN SOD 5000 UNIT/0.5 ML CARP SQ SCH ×2 (08:38→20:54)
[2017-06-18] MEDS: PANTOprazole SOD 40 MG TAB PO SCH (08:39)
[2017-06-18] MEDS: CITALOPRAM 40 MG TAB PO SCH (08:39)
[2017-06-18] MEDS: FERROUS SULFATE 325 MG TAB PO SCH ×2 (08:40→20:43)
[2017-06-18] MEDS: AMOXICILLIN/CLAVULANATE TAB 875 MG TAB PO SCH ×2 (08:40→17:45)
[2017-06-18 08:45] LABS: BASO % 0.5 %; BASO ABS # 0.03 K/uL (0-0.2); EOS % 0.2 %; EOS ABS # 0.01 K/uL (0-0.5); HEMOGLOBIN 10.8 g/dL (12.0-16.0); IG# 0.01 K/uL (0.00-0.02); LYMPH % 36.1 %; LYMPH ABS # 2.15 K/uL (1.2-3.4); MEAN CELL VOLUME 101.2 fL (80-100); MEAN CORPUSCULAR HEMOGLOBIN 33.1 pg (25-34); MEAN CORPUSCULAR HGB CONC 32.7 g/dl (32-36); MEAN PLATELET VOLUME 9.2 fL (7.4-10.4); MONO % 7.4 %; MONO ABS # 0.44 K/uL (0.11-0.59); NEUT % 55.6 %; NEUT ABS # 3.31 K/uL (1.4-6.5); PLATELET COUNT 209 K/uL (130-400); RED CELL DISTRIBUTION WIDTH CV 14.9 % (11.5-14.5); RED CELL DISTRIBUTION WIDTH SD 55.1 fL (36.4-46.3); WHITE BLOOD COUNT 5.95 K/uL (4.8-10.8)
[2017-06-18 09:21] LABS: CALCIUM 8.8 mg/dl (8.5-10.1); CREATININE 0.86 mg/dl (0.60-1.20); POTASSIUM 3.8 mmol/L (3.5-5.1)
[2017-06-18] MEDS: INSULIN ASPART 100 UNITS/ML 3 ML PEN SC SCH ×5 (09:34→23:44)
[2017-06-18] MEDS ORDERED: LANTUS PER UNIT CHARGE SQ ONE (11:30)
--- NOTE | 2017-06-18 14:51 | EEG Procedure Note ---
EEG Procedure Note Date of Service Jun 18, 2017. Start / End Times Start Time: 6:15 AM End Time: 6:35 AM Referring Physician Kane Mcdermott History This is a 51-year-old female with Down syndrome who presented with prolonged seizure-like activity in the setting of hypoglycemia. EEG ordered for further evaluation of altered mental status and fatigue to make sure that she is not in subclinical status. Home Medication List Scheduled Albuterol Sulf (Proventil 0.083% 2.5MG/3ML), 2.5 MG TR TID Amoxicillin & Pot Clavulanate (Augmentin 875-125 mg), 1 TAB PO Q12 Atorvastatin (Lipitor), 10 MG PO HS Calcium Carbonate-Cholecalcife (Oyster Shell Calcium + D), 1 TAB PO TID Citalopram Hydrobromide (Celexa), 40 MG PO DAILY Doxycycline Hyclate (Doxycycline Hyclate), PO UD Ergocalciferol (Vitamin D 76997 Unit), 50,000 UNIT PO WK Ferrous Sulfate (Kp Ferrous Sulfate), 1 TAB PO BID Fexofenadine Hcl (Danielle), 180 MG PO HS Fluconazole (Diflucan), 100 MG PO QAM Fluticasone Furoate-Vilanterol (Breo Ellipta), 1 PUFF PO DAILY Home O2 Therapy (Oxygen), LITER UD Insulin Aspart (novoLOG INSULIN PUMP ), N/A UD Levothyroxine Sodium (Levothyroxine Sodium), 150 MCG PO QAM Montelukast Sodium (Singulair), 10 MG PO HS Multiple Vitamins W/ Minerals (Therems M), 1 TAB PO QAM Omeprazole (Prilosec), 20 MG PO QAM Prednisone (Prednisone), 20 MG PO DAILY Prednisone (Prednisone), 10 MG PO DAILY Prednisone Tab (Prednisone), 30 MG PO DAILY Sodium Chloride (Gu Irrigant) (Sodium Chloride 0.9%), DAILY Sodium Fluoride (Dental) (Phos-Flur Ortho Defense), 0.5 OZ PO HS [Percussion Vest], TID Scheduled PRN Albuterol Hfa (Ventolin Hfa), 2 PUFFS INH QID PRN for Shortness of Breath Clotrimazole (Topical) (Anti-Fungal), 1 APPLN TOP TID PRN for RASH Dextrose (Diabetic Use) (Insta-Glucose), 1 TUBE PO DIRECTED PRN for LOW BLOOD SUGAR Furosemide (Lasix), 20 MG PO DAILY PRN for WEIGHT GAIN Glucagon (Glucagon Emergency Kit), 1 MG IM for UNRESPONSIVE Glucose-Vitamin C (Dex4), 1 TAB PO DAILY PRN for LOW BLOOD SUGARS Ibuprofen (Motrin), 600 MG PO TID PRN for Pain Insulin Glargine (Lantus), 0 SC UD PRN for PUMP MALFUNCTION Promethazine (Phenergan ), 12.5 MG PO Q8 PRN for Nausea or Vomiting Inpatient Medication List Current Inpatient Medications Medications (Trade) Dose Ordered Sig/Rene Route Start Time Stop Time Status Last Admin Dose Admin Acetaminophen (Tylenol Tab) 650 mg Q4H PRN PO 06/17/17 03:15 07/17/17 03:14 Al Hydrox/Mg Hydrox/Simethicone (Maalox Max Susp) 15 ml Q4H PRN PO 06/17/17 03:15 07/17/17 03:14 Magnesium Hydroxide (Milk Of Magnesia Susp) 30 ml Q6H PRN PO 06/17/17 03:15 07/17/17 03:14 Polyethylene (Miralax Powder Packet) 17 gm DAILY PRN PO 06/17/17 03:15 07/17/17 03:14 Zolpidem Tartrate (Ambien Tab) 5 mg HSZ PRN PO 06/17/17 03:15 07/17/17 03:14 Ondansetron HCl (Zofran Inj) 4 mg Q6H PRN IV 06/17/17 03:15 07/17/17 03:14 Heparin Sodium (Porcine) (Heparin Sq 5000 Unit/0.5ml) 5,000 unit Q12H SQ 06/17/17 08:00 07/17/17 07:59 06/18/17 08:38 5,000 UNIT Albuterol (Ventolin Hfa Inhaler) 2 puffs QID PRN INH 06/17/17 03:15 07/17/17 03:14 Albuterol Sulfate (Ventolin 0.083% 2.5MG/3ML Neb) 2.5 mg TIDR INH 06/17/17 09:00 07/17/17 08:59 06/18/17 14:11 2.5 MG Atorvastatin Calcium (Lipitor Tab) 10 mg HS PO 06/17/17 21:00 07/17/17 20:59 06/17/17 21:08 10 MG Citalopram Hydrobromide (celeXA TAB) 40 mg DAILY PO 06/17/17 09:00 07/17/17 08:59 06/18/17 08:39 40 MG Clotrimazole (Lotrimin 1% Crm) 1 appln TID PRN EXT 06/17/17 03:15 07/17/17 03:14 Fexofenadine HCl (Danielle Tab) 180 mg HS PO 06/17/17 21:00 07/17/17 20:59 06/17/17 21:08 180 MG Furosemide (Lasix Tab) 20 mg DAILY PRN PO 06/17/17 03:15 07/17/17 03:14 Ibuprofen (Motrin Tab) 600 mg TID PRN PO 06/17/17 03:15 07/17/17 03:14 Levothyroxine Sodium (Synthroid Tab) 150 mcg DAILYBB PO 06/17/17 06:00 07/17/17 05:59 06/18/17 05:40 150 MCG Montelukast Sodium (Singulair Tab) 10 mg HS PO 06/17/17 21:00 07/17/17 20:59 06/17/17 21:08 10 MG Promethazine HCl (Phenergan Tab) 12.5 mg Q8 PRN PO 06/17/17 03:15 07/17/17 03:14 Ferrous Sulfate (Feosol Tab) 325 mg BID PO 06/17/17 09:00 07/17/17 08:59 06/18/17 08:40 325 MG Pantoprazole Sodium (Protonix Tab) 40 mg QAM PO 06/17/17 09:00 07/17/17 08:59 06/18/17 08:39 40 MG Miscellaneous Information (Consult Glycemic Management Pharmacy) 1 ea UD PRN N/A 06/17/17 03:38 07/17/17 03:37 Glucose (Glucose 40% Gel) 15-30 GRAMS 15 GRAMS... UD PRN PO 06/17/17 03:45 07/17/17 03:44 Glucose (Glucose Chew Tab) 4-8 Tablets 4 Tabl... UD PRN PO 06/17/17 03:45 07/17/17 03:44 Dextrose (Dextrose 50% 50ML Syringe) 25-50ML OF 50% DW IV FOR... UD PRN IV 06/17/17 03:45 07/17/17 03:44 Glucagon (Glucagon Inj) 1 mg UD PRN SQ 06/17/17 03:45 07/17/17 03:44 Lorazepam (Ativan Inj) 1 mg Q10M PRN IV 06/17/17 04:00 Amoxicillin/ Clavulanate Potassium (Augmentin Tab) 875 mg BIDM PO 06/17/17 08:00 06/24/17 07:59 06/18/17 08:40 875 MG Miscellaneous Information (Order Awaiting Action) 1 ea QS N/A 06/17/17 08:00 07/17/17 07:59 Miscellaneous (Iv Fluids Completed) 1 ea PRN PRN N/A 06/17/17 04:45 06/17/18 04:44 Insulin Human Regular 250 units/ Sodium Chloride 252.5 ml @ 0 mls/hr Q24H IV 06/17/17 05:15 06/18/17 17:30 06/18/17 14:36 1.4 MLS/HR Lorazepam 1 mg/ Syringe 1 ml @ 1 mls/min Q10M PRN IV 06/17/17 05:45 Sodium Chloride 1,000 ml @ 30 mls/hr Q24H IV 06/17/17 15:00 07/17/17 14:59 06/17/17 16:41 30 MLS/HR Prednisone (PredniSONE TAB) 30 mg Taper DAILY PO 06/18/17 09:00 06/25/17 08:59 06/18/17 08:41 30 MG Miscellaneous Information (Dc Iv Insulin Infusion) 1 ea TODAY@1730 ONCE N/A 06/18/17 17:30 06/18/17 17:31 Insulin Aspart (novoLOG ASPART) SLIDING SCALE ACHS SC 06/18/17 17:15 07/18/17 17:14 Description This is a 21 electrode EEG with a single channel dedicated to limited EKG. The electrodes were placed in accordance with the International 10-20 system. At the start of this recording the patient was in reported altered mental status. Background was poorly organized with no well-formed anterior to posterior gradient. Background was composed of symmetric moderate amplitude predominantly 5-6 Hz theta frequencies with intermixed alpha and beta frequencies. There was frequent intermittent generalized delta slowing. Hyperventilation and photic stimulation were not done. There was no state changes or sleep transients. Interpretation This is an abnormal routine EEG secondary to moderate background disorganization and slowing. There was no electrographic seizures or epileptiform discharges. Clinical Correlation This EEG indicates a moderate encephalopathy of nonspecific etiology.
--- NOTE | 2017-06-18 14:52 | Pharmacy Progress Note ---
Pharmacy Glycemic Short Note 2 Date of Service Jun 18, 2017. OUTPATIENT ANTIDIABETIC REGIMEN: * NovoLog Pump * Total Daily dose = 18.5 units * Total basal dose = 9.4 units * SF = 65-70 mg/dl/unit * Carb Ratio = 1 unit for every 12g CHO consumed * Pt follows with [facility] Endocr[facility]ology. Last seen 04/15/17 by Raz. At this visit , carb ratio was changed from 15 to 12 and overnight basal rates were increased slightly. * A1c = 10.7% in 02/2017 --> down to 8.8% on 05/16/17. 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 Then, with severe hyperglycemia requiring IV insulin infusion. * IV insulin infusion has been stable around 1.2 units/hr. Pt is receiving carb coverage while on the infusion for all meals/snacks with a fixed carb ratio of 1 unit for every 8g CHO consumed. * Max drip rate set at 4 units/hr to prevent hypoglycemia * Fixed carb ratio ordered as a "stressed" outpatient dose since patient is receiving prednisone and steroids have their most profound effect on post- prandial hyperglycemia. Visited with patient, her mother, and her sister today. Reviewed history and events leading up to seizure on Easter. * Best to have her pump evaluated by [facility] Endocrinology to ensure that it was not a pump malfunction causing her severe hypoglycemia * Called [facility] spoke with Ioana [employer] {[employer] Rep} * Since it is possible that her hypoglycemia could have been from a pump malfunction [employer] will need to do a system check on the pump. This can be done over the phone. If they determine that the pump is functioning it would be reasonable to d/c patient on pump. If the pump is not functioning, then [employer] will overnight a new pump. Pt will need insulin injections for the interim. * Either way, Alicia will drop off the pump to [facility] for them to download her pump/bolus history to determine if changes to settings are needed. * Called [facility], spoke with Alicia. She will have caregiver stop at [facility] Endo tomorrow {prior to pt discharge} for them to evaluate the pump and try to determine what caused severe hypoglycemia. Once this is complete and resolved, reasonable to resume pump at discharge. If there is a pump issue we will have to use SQ basal bolus insulin regimen for the interim until pump is fixed. * There will not be a caregiver at the house this evening since Valorie is not there. Further calls to Alicia should be made to her personal cell phone ) * Valorie was exhausted during my visit. Extremely pleasant, but tired. * Will try to transition off of IV insulin infusion to minimize the number of BSG checks/insulin adjustments to promote rest overnight. * Will only give one dose of basal insulin so that it will not be on board tomorrow when transitioning back to pump. PLAN FOR INPATIENT GLYCEMIC CONTROL: * Transition off of IV insulin infusion * Will d/c IV insulin infusion when held per calculator OR 6 hrs after initial Lantus dose given, whichever happens sooner * Basal insulin * Lantus 10 units SQ x 1 dose * If pt is not doing to be discharged until the afternoon tomorrow, may need to give a dose of NPH tomorrow morning until pump is available. * Bolus insulin * Stress outpatient parameters for steroid induced hyperglycemia * NovoLog per scale ACHS or Q6hrs while NPO * Goal Range: Low 110 mg/dL - High 160 mg/dL slightly higher goal range for brittle diabetes and severe hypoglycemia unawareness * Correction Factor: 25 mg/dL/unit * Nutritional / Prandial insulin per carb ratio of 1 unit per 8 grams CHO consumed
[2017-06-18] MEDS ORDERED: DC IV INSULIN INFUSION ONE (17:30)
[2017-06-18] MEDS: MONTELUKAST SOD 10 MG TAB PO SCH (20:43)
[2017-06-18] MEDS: ATORVASTATIN 10 MG TAB PO SCH (20:43)
[2017-06-18] MEDS: FEXOFENADINE HCL 180 MG TAB PO SCH (20:43)
[2017-06-18] MEDS ORDERED: INSULIN HUMAN REGULAR PER UNIT 3 UNITS in SYRINGE 2.97 ML IV SCH (21:15)
[2017-06-19] MEDS: INSULIN ASPART 100 UNITS/ML 3 ML PEN SC SCH ×3 (04:11→13:10)
[2017-06-19] MEDS: LEVOTHYROXINE 150 MCG TAB PO SCH (06:31)
[2017-06-19 07:06] VITALS: PULSE 64; O2SAT 100
[2017-06-19] MEDS: ALBUTEROL 0.083% NEBU SOLN 3 ML VIAL INH SCH ×2 (07:06→14:25)
[2017-06-19 07:10] VITALS: BP 129/79; PULSE 48; TEMP 36.9; O2SAT 100
--- NOTE | 2017-06-19 07:59 | Clinical Documentation Query ---
QUERY 1 OF [address] GHOSH, In your clinical opinion is this patient being managed for: ( ) Encephalopathy ( ) Not Agree ( ) Other explanation of clinical findings (Please Explain) ( ) Unable to determine (Please Define) ( ) Need to Discuss The medical record reflects the following clinical findings, treatment, and risk factors. Clinical Indicators: 51 yo female presenting with a seizure, hypoglycemia, altered mental status/somnolence. EEG showed moderate encephalopathy of nonspecific etiology. Treatment: IV fluids, CT head, EEG, glucose management, tobacco educator, Risk Factors: hypoglycemia, seizure, QUERY 2 OF 2 In your clinical opinion is this patient being managed for: ( ) Acute kidney failure on CKD stage II-III ( ) Not Agree ( ) Other explanation of clinical findings (Please Explain) ( ) Unable to determine (Please Define) ( ) Need to Discuss The medical record reflects the following clinical findings, treatment, and risk factors. Clinical Indicators: Initial Cr 1.28 which has trended down to Cr 0.86. GFR range of 32.7-93.1 Treatment: IV fluids, glucose management, serial PRP's, treat comorbid conditions Risk Factors: DM I, chronic resp failure Please clarify and document your clinical opinion in the progress notes and discharge summary. Terms such as "probable", "suspected", "likely", "questionable", "possible", or "still to be ruled out" are acceptable. IF IN AGREEMENT, YOU MUST DOCUMENT ABOVE DIAGNOSTIC STATEMENT IN DAILY PROGRESS NOTES AND DISCHARGE SUMMARY. This document is not part of the patient's record. Thank You, Mar Browning, RN [phone]
--- NOTE | 2017-06-19 08:01 | Family Medicine Progress Note ---
Progress Note Date of Service Jun 19, 2017. Subjective Pt evaluation today including: conversation w/ patient Spoke with patient this morning. She smiled and said that she had no current pain, SOB or difficulty breathing, or any current worries. Constitutional: No fever, No chills Respiratory: No cough, No shortness of breath Cardiovascular: No chest pain, No edema Abdomen: No pain, No nausea, No vomiting, No diarrhea Medications Current Inpatient Medications Medications (Trade) Dose Ordered Sig/Rene Route Start Time Stop Time Status Last Admin Dose Admin Acetaminophen (Tylenol Tab) 650 mg Q4H PRN PO 06/17/17 03:15 07/17/17 03:14 Al Hydrox/Mg Hydrox/Simethicone (Maalox Max Susp) 15 ml Q4H PRN PO 06/17/17 03:15 07/17/17 03:14 Magnesium Hydroxide (Milk Of Magnesia Susp) 30 ml Q6H PRN PO 06/17/17 03:15 07/17/17 03:14 Polyethylene (Miralax Powder Packet) 17 gm DAILY PRN PO 06/17/17 03:15 07/17/17 03:14 Zolpidem Tartrate (Ambien Tab) 5 mg HSZ PRN PO 06/17/17 03:15 07/17/17 03:14 Ondansetron HCl (Zofran Inj) 4 mg Q6H PRN IV 06/17/17 03:15 07/17/17 03:14 Heparin Sodium (Porcine) (Heparin Sq 5000 Unit/0.5ml) 5,000 unit Q12H SQ 06/17/17 08:00 07/17/17 07:59 06/18/17 20:54 5,000 UNIT Albuterol (Ventolin Hfa Inhaler) 2 puffs QID PRN INH 06/17/17 03:15 07/17/17 03:14 Albuterol Sulfate (Ventolin 0.083% 2.5MG/3ML Neb) 2.5 mg TIDR INH 06/17/17 09:00 07/17/17 08:59 06/19/17 07:06 2.5 MG Atorvastatin Calcium (Lipitor Tab) 10 mg HS PO 06/17/17 21:00 07/17/17 20:59 06/18/17 20:43 10 MG Citalopram Hydrobromide (celeXA TAB) 40 mg DAILY PO 06/17/17 09:00 07/17/17 08:59 06/18/17 08:39 40 MG Clotrimazole (Lotrimin 1% Crm) 1 appln TID PRN EXT 06/17/17 03:15 07/17/17 03:14 Fexofenadine HCl (Danielle Tab) 180 mg HS PO 06/17/17 21:00 07/17/17 20:59 06/18/17 20:43 180 MG Furosemide (Lasix Tab) 20 mg DAILY PRN PO 06/17/17 03:15 07/17/17 03:14 Ibuprofen (Motrin Tab) 600 mg TID PRN PO 06/17/17 03:15 07/17/17 03:14 Levothyroxine Sodium (Synthroid Tab) 150 mcg DAILYBB PO 06/17/17 06:00 07/17/17 05:59 06/19/17 06:31 150 MCG Montelukast Sodium (Singulair Tab) 10 mg HS PO 06/17/17 21:00 07/17/17 20:59 06/18/17 20:43 10 MG Promethazine HCl (Phenergan Tab) 12.5 mg Q8 PRN PO 06/17/17 03:15 07/17/17 03:14 Ferrous Sulfate (Feosol Tab) 325 mg BID PO 06/17/17 09:00 07/17/17 08:59 06/18/17 20:43 325 MG Pantoprazole Sodium (Protonix Tab) 40 mg QAM PO 06/17/17 09:00 07/17/17 08:59 06/18/17 08:39 40 MG Miscellaneous Information (Consult Glycemic Management Pharmacy) 1 ea UD PRN N/A 06/17/17 03:38 07/17/17 03:37 Glucose (Glucose 40% Gel) 15-30 GRAMS 15 GRAMS... UD PRN PO 06/17/17 03:45 07/17/17 03:44 Glucose (Glucose Chew Tab) 4-8 Tablets 4 Tabl... UD PRN PO 06/17/17 03:45 07/17/17 03:44 Dextrose (Dextrose 50% 50ML Syringe) 25-50ML OF 50% DW IV FOR... UD PRN IV 06/17/17 03:45 07/17/17 03:44 Glucagon (Glucagon Inj) 1 mg UD PRN SQ 06/17/17 03:45 07/17/17 03:44 Lorazepam (Ativan Inj) 1 mg Q10M PRN IV 06/17/17 04:00 Amoxicillin/ Clavulanate Potassium (Augmentin Tab) 875 mg BIDM PO 06/17/17 08:00 06/24/17 07:59 06/18/17 17:45 875 MG Miscellaneous Information (Order Awaiting Action) 1 ea QS N/A 06/17/17 08:00 07/17/17 07:59 Miscellaneous (Iv Fluids Completed) 1 ea PRN PRN N/A 06/17/17 04:45 06/17/18 04:44 Lorazepam 1 mg/ Syringe 1 ml @ 1 mls/min Q10M PRN IV 06/17/17 05:45 Prednisone (PredniSONE TAB) 30 mg Taper DAILY PO 06/18/17 09:00 06/25/17 08:59 06/18/17 08:41 30 MG Insulin Aspart (novoLOG ASPART) SLIDING SCALE ACHS SC 06/18/17 17:15 07/18/17 17:14 06/18/17 21:06 13 UNITS Heparin Sodium (Porcine) (Heparin 100 Unit/ml 5ml Flush) 5 ml PRN PRN IV 06/18/17 20:30 07/18/17 20:29 Objective Vital Signs Date Time Temp Pulse Resp B/P (MAP) Pulse Ox O2 Delivery O2 Flow Rate FiO2 06/19/17 07:10 36.9 48 16 129/79 (96) 100 Room Air 06/19/17 07:06 64 18 100 Nasal Cannula 2.0 06/18/17 23:35 Nasal Cannula 2.0 06/18/17 23:15 36.9 59 16 120/72 (88) 95 Nasal Cannula 2.0 06/18/17 19:39 84 18 98 Nasal Cannula 2.0 06/18/17 16:10 36.8 74 18 114/69 (84) 94 Room Air 06/18/17 15:35 Trach Collar 2.0 06/18/17 14:11 85 18 98 Nasal Cannula 2.0 06/18/17 08:45 36.9 68 16 146/78 (100) 97 Nasal Cannula 2.0 06/18/17 08:36 36.9 68 18 146/78 (100) 97 Nasal Cannula 2.0 Physical Exam Notes: General Appearance: Found patient resting comfortably, opened eyes to voice, says hello and that she's okay, but otherwise preferred keeping eyes closed. No speaking, some head nodding. Did not appear in acute distress. In afternoon , awake, smiling, giving 'thumbs up' and very interactive. CV: +S1S2 RRR, no murmur. Pulm: Minimal crackles in bilateral bases. No accessory muscle use. + tracheostomy. Abdomen: +BS, soft, non-tender, non-distended. Extremities: No pedal edema or calf tenderness. Turning about in bed easily, good ring striker strength. Neuro: No gross neuro deficits. Lines: PIV. Laboratory Results 06/18/17 08:35 Red Blood Count 3.26, Mean Corpuscular Volume 101.2, Mean Corpuscular Hemoglobin 33.1, Mean Corpuscular Hemoglobin Concent 32.7, Mean Platelet Volume 9.2, Neutrophils (%) (Auto) 55.6, Lymphocytes (%) (Auto) 36.1, Monocytes (%) ( Auto) 7.4, Eosinophils (%) (Auto) 0.2, Basophils (%) (Auto) 0.5, Neutrophils # ( Auto) 3.31, Lymphocytes # (Auto) 2.15, Monocytes # (Auto) 0.44, Eosinophils # ( Auto) 0.01, Basophils # (Auto) 0.03 06/18/17 08:35 Test 06/18/17 08:35 06/19/17 04:03 White Blood Count 5.95 K/uL (4.8-10.8) Red Blood Count 3.26 M/uL (4.2-5.4) Hemoglobin 10.8 g/dL (12.0-16.0) Hematocrit 33.0 % (37-47) Mean Corpuscular Volume 101.2 fL (80-100) Mean Corpuscular Hemoglobin 33.1 pg (25-34) Mean Corpuscular Hemoglobin Concent 32.7 g/dl (32-36) Platelet Count 209 K/uL (130-400) Mean Platelet Volume 9.2 fL (7.4-10.4) Neutrophils (%) (Auto) 55.6 % Lymphocytes (%) (Auto) 36.1 % Monocytes (%) (Auto) 7.4 % Eosinophils (%) (Auto) 0.2 % Basophils (%) (Auto) 0.5 % Neutrophils # (Auto) 3.31 K/uL (1.4-6.5) Lymphocytes # (Auto) 2.15 K/uL (1.2-3.4) Monocytes # (Auto) 0.44 K/uL (0.11-0.59) Eosinophils # (Auto) 0.01 K/uL (0-0.5) Basophils # (Auto) 0.03 K/uL (0-0.2) RDW Standard Deviation 55.1 fL (36.4-46.3) RDW Coefficient of Variation 14.9 % (11.5-14.5) Immature Granulocyte % (Auto) 0.2 % Immature Granulocyte # (Auto) 0.01 K/uL (0.00-0.02) Anion Gap 7.0 mmol/L (3-11) Est Creatinine Clear Calc Drug Dose 60.2 ml/min Estimated GFR () 90.0 Estimated GFR (Non- 77.7 BUN/Creatinine Ratio 20.2 (10-20) Calcium Level 8.8 mg/dl (8.5-10.1) Bedside Glucose 273 mg/dl (70-90) Resident Tracking Resident Involvement: Resident Care Provided Care Provided: Adult Hospital Medicine (inpatient)
--- NOTE | 2017-06-19 08:03 | Clinical Documentation Query ---
QUERY 1 OF [address] ROBLERO, In your clinical opinion is this patient being managed for: ( ) Encephalopathy ( ) Not Agree ( ) Other explanation of clinical findings (Please Explain) ( ) Unable to determine (Please Define) ( ) Need to Discuss The medical record reflects the following clinical findings, treatment, and risk factors. Clinical Indicators: 51 yo female presenting with a seizure, hypoglycemia, altered mental status/somnolence. EEG showed moderate encephalopathy of nonspecific etiology. 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 Clinical Indicators: Initial Cr 1.28 which has trended down to Cr 0.86. GFR range of 32.7-93.1 Treatment: IV fluids, glucose management, serial PRP's, treat comorbid conditions Risk Factors: DM I, chronic resp failure Please clarify and document your clinical opinion in the progress notes and discharge summary. Terms such as "probable", "suspected", "likely", "questionable", "possible", or "still to be ruled out" are acceptable. IF IN AGREEMENT, YOU MUST DOCUMENT ABOVE DIAGNOSTIC STATEMENT IN DAILY PROGRESS NOTES AND DISCHARGE SUMMARY. This document is not part of the patient's record. Thank You, Mar Browning, RN [phone]
[2017-06-19] MEDS ORDERED: NovoLIN-N (NPH) PER UNIT CHARGE SQ ONE (09:00)
[2017-06-19] MEDS: FERROUS SULFATE 325 MG TAB PO SCH (09:17)
[2017-06-19] MEDS: CITALOPRAM 40 MG TAB PO SCH (09:17)
[2017-06-19] MEDS: PANTOprazole SOD 40 MG TAB PO SCH (09:18)
[2017-06-19] MEDS: AMOXICILLIN/CLAVULANATE TAB 875 MG TAB PO SCH (09:18)
[2017-06-19] MEDS: HEPARIN SOD 5000 UNIT/0.5 ML CARP SQ SCH (09:23)
--- NOTE | 2017-06-19 10:04 | Pharmacy Progress Note ---
Pharmacy Glycemic Short Note 2 Date of Service Jun 19, 2017. OUTPATIENT ANTIDIABETIC REGIMEN: * NovoLog Pump * Total Daily dose = 18.5 units * Total basal dose = 9.4 units * SF = 65-70 mg/dl/unit * Carb Ratio = 1 unit for every 12g CHO consumed * Pt follows with [facility] Endocr[facility]ology. Last seen 04/15/17 by Raz. At this visit , carb ratio was changed from 15 to 12 and overnight basal rates were increased slightly. * A1c = 10.7% in 02/2017 --> down to 8.8% on 05/16/17. 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 Then, with severe hyperglycemia requiring IV insulin infusion. * IV insulin infusion has been stable around 1.2 units/hr. Pt is receiving carb coverage while on the infusion for all meals/snacks with a fixed carb ratio of 1 unit for every 8g CHO consumed. * Max drip rate set at 4 units/hr to prevent hypoglycemia * Fixed carb ratio ordered as a "stressed" outpatient dose since patient is receiving prednisone and steroids have their most profound effect on post- prandial hyperglycemia. Visited with patient, her mother, and her sister today. Reviewed history and events leading up to seizure on Easter. * Best to have her pump evaluated by [facility] Endocr[facility] to ensure that it was not a pump malfunction causing her severe hypoglycemia * Called [facility] spoke with Io[employer] {[employer] Rep} * Since it is possible that her hypoglycemia could have been from a pump malfunction [employer] will need to do a system check on the pump. This can be done over the phone. If they determine that the pump is functioning it would be reasonable to d/c patient on pump. If the pump is not functioning, then [employer] will overnight a new pump. Pt will need insulin injections for the interim. * Either way, Alicia will drop off the pump to [facility] for them to download her pump/bolus history to determine if changes to settings are needed. * Called [facility], spoke with Alicia. She will have caregiver stop at [facility] Endo tomorrow {prior to pt discharge} for them to evaluate the pump and try to determine what caused severe hypoglycemia. Once this is complete and resolved, reasonable to resume pump at discharge. If there is a pump issue we will have to use SQ basal bolus insulin regimen for the interim until pump is fixed. * There will not be a caregiver at the house this evening since Valorie is not there. Further calls to Alicia should be made to her personal cell phone ([phone]) * Valorie was exhausted during my visit. Extremely pleasant, but tired. * Will try to transition off of IV insulin infusion to minimize the number of BSG checks/insulin adjustments to promote rest overnight. * Will only give one dose of basal insulin so that it will not be on board tomorrow when transitioning back to pump. 06/19/17: * Patient's caregiver, Alicia called to report that insulin pump was taken to [facility] Endocrinology this morning to evaluate function of the pump (see details above). Alicia stated that they concluded hypoglycemia was not due to pump settings or pump malfunction. Data from pump around the time of seizure: BSG 71 (at start of seizure), 126, and 121. No insulin boluses were administered between start of seizure and arrival to [facility]. Given pump malfunction has been ruled out, the plan remains to resume home pump at time of discharge. * Discussed information with Dr. Lui. hand tennis ball coverer questioned if patient will be started on any anti-seizure medications. I requested they discuss this with Dr. Lui. Sofia from the [facility] requested call ([phone]) to coordinate time of discharge. She will bring Valorie's pump with her and is able to attach pump. * Patient transitioned to SQ insulin yesterday afternoon. Patient initially experienced hyperglycemia, which improved overnight. * Fasting BSG of 238 mg/dL is not ideal, however it is not unusual for patient. Will give a one time dose of NPH to "bridge" patient until pump can be resumed. PLAN FOR INPATIENT GLYCEMIC CONTROL: * Resume Novolog insulin pump, when available * Basal insulin * NPH 13 units SQ this AM to cover patient until insulin pump resumed * Bolus insulin - no change * Stress outpatient parameters for steroid induced hyperglycemia * NovoLog per scale ACHS or Q6hrs while NPO * Goal Range: Low 110 mg/dL - High 160 mg/dL slightly higher goal range for brittle diabetes and severe hypoglycemia unawareness * Correction Factor: 25 mg/dL/unit * Nutritional / Prandial insulin per carb ratio of 1 unit per 8 grams CHO consumed DISCHARGE RECOMMENDATIONS: * Resume outpatient Novolog pump at usual settings. * Follow up with Endocrinology if steroid taper is continued on discharge
[2017-06-19] MEDS ORDERED: INSULIN ASPART 100 UNITS/ML VIAL SC PRN (12:30)
[2017-06-19] MEDS ORDERED: NovoLOG INSULIN PUMP SCH (12:45)
[2017-06-19 13:56] VITALS: BP 129/79; PULSE 48; TEMP 36.9; O2SAT 100
--- NOTE | 2017-06-19 13:56 | Discharge Instructions ---
Discharge Instructions Date of Service Jun 19, 2017. Admission Reason for Admission: Hypoglycemia Associate W/Diabetes, Seizure-Like Discharge Discharge Diagnosis / Problem: hypoglycemia, seizure Discharge Goals Goal(s): Decrease discomfort, Improve function, Increase independence, Improve disease control, Diagnostic testing, Therapeutic intervention Activity Recommendations Activity Limitations: as noted below Lifting Limitations: gradually increase as tolerated Exercise/Sports Limitations: gradually increase as tolerated May Resume Sexual Activity: when tolerated Shower/Bathe: no limitations Driving or Machine Use: no limitations Instructions / Follow-Up Instructions / Follow-Up Valorie was admitted due to a seizure like episode that lasted 45 mins. She was found to have low blood sugar. The episode was attributed to multiple factors. However, there was a questionable issue with her pump and this was interrogated by pharmacy. The company that manages the pump also checked out the pump and there seems to be no malfunction. As a result, she will continue the regular pump routine at home. No further seizures and has returned to her baseline. Please continue the antibiotic and steroid taper as prescribed initially. If she has any further episodes of seizures, hypoglycemia, chest pain, shortness of breath or other concerns; please call pcp or come back to the ER. We recommend follow up with PCP in 2-3 days. Thank you. Current Hospital Diet Patient's current hospital diet: Diabetes Type 2 Diet Discharge Diet Recommended Diet: Diabetes Type 2 Diet Pending Studies Studies pending at discharge: no Laboratory Results Hemoglobin A1c Test 05/16/17 12:36 Range/Units Estimated Average Glucose 206 mg/dl Hemoglobin A1c 8.8 H 4.5-5.6 % Medical Emergencies . Who to Call and When: Medical Emergencies: If at any time you feel your situation is an emergency, please call 911 immediately. . Non-Emergent Contact Non-Emergency issues call your: Primary Care Provider Call Non-Emergent contact if: your pain is not controlled . . "Provider Documentation" section prepared by Diana Harrington. .
[2017-06-19 14:26] VITALS: PULSE 80; O2SAT 98
--- NOTE | 2017-06-19 17:38 | Discharge Summary ---
Discharge Summary Date of Service Jun 17, 2017. Discharge Summary Admission Date: Jun 17, 2017 at 03:23 Discharge Date: Jun 19, 2017 Discharge Disposition: Home Principal Diagnosis: Seizure Problems/Secondary Diagnoses: - Hypoglycemia - Diabetes type 1 Immunizations: Have You Had Influenza Vaccine: N/A Influenza Vaccine Date: Dec 18, 2005 History of Tetanus Vaccine?: Unknown Tetanus Immunization Date: May 22, 2001 History of Pneumococcal: Yes Pneumococcal Date: August 15, 2012 History of Hepatitis B Vaccine: No Procedures: 17Jun2017 - HEAD WITHOUT CONTRAST (CT) IMPRESSION: 1. No acute intracranial abnormality. Medication Reconciliation Continued Medications: Albuterol Hfa (Ventolin Hfa) 200 Puffs/30024 Mcg Aers 2 PUFFS INH QID PRN for Shortness of Breath Albuterol Sulf (Proventil 0.083% 2.5MG/3ML) 2.5 Mg/3 Ml Nebu 2.5 MG TR TID, EA USE VIA TRACH MASK Amoxicillin & Pot Clavulanate (Augmentin 875-125 mg) 1 Tab Tab 1 TAB PO Q12 last dose 06/26/17 @ 0800 Atorvastatin (Lipitor) 10 Mg Tab 10 MG PO HS Calcium Carbonate-Cholecalcife (Oyster Shell Calcium + D) 1 Tab Tab 1 TAB PO TID MORNING, AFTERNOON AND BEDTIME Citalopram Hydrobromide (Celexa) 40 Mg Tab 40 MG PO DAILY, #30 TAB 2 Refills can resume on 05/20/17 Clotrimazole (Topical) (Anti-Fungal) 1 % Cre 1 APPLN TOP TID PRN for RASH APPLY 3 TIMES DAILY NEEDED FOR RASH AROUND TRACH Dextrose (Diabetic Use) (Insta-Glucose) 77.4 % Gel 1 TUBE PO DIRECTED PRN for LOW BLOOD SUGAR Doxycycline Hyclate (Doxycycline Hyclate) 100 Mg Tab PO UD 1 CAP PO DAILY AT NOON FOR MONTH OF APR,JUNE,AUGUST,OCT,DEC,FEB. DO NOT GIVE WITHIN 2 HOURS OF CALCIU,/OSCAL/MVI/MOM Ergocalciferol (Vitamin D 39016 Unit) 50,000 Unit Cap 79466 UNIT PO WK, CAP ONCE EVERY 7 DAYS (THURSDAYS) Ferrous Sulfate (Kp Ferrous Sulfate) 325 Mg Tab 1 TAB PO BID for 30 Days, #60 TAB 1 Refill Fexofenadine Hcl (Danielle) 180 Mg Tab 180 MG PO HS, TAB Fluconazole (Diflucan) 100 Mg Tab 100 MG PO QAM, TAB Fluticasone Furoate-Vilanterol (Breo Ellipta) 1 Inh Inh 1 PUFF PO DAILY Furosemide (Lasix) 20 Mg Tab 20 MG PO DAILY PRN for WEIGHT GAIN, TAB WEIGHT GAIN > 3LB IN 24HRS AND WITNESSED EDEMA/SOB. HOLD FOR 3LB WEIGHT GAIN AND NO SOB OR EDEMA Glucagon (Glucagon Emergency Kit) 1 Mg Kit 1 MG IM PRN for UNRESPONSIVE PRN FOR LOW BLOOD SUGAR EPISODES Glucose-Vitamin C (Dex4) 1 Chw Chw 1 TAB PO DAILY PRN for LOW BLOOD SUGARS Home O2 Therapy (Oxygen) Gas LITER UD 2 LITERS VIA N/C OR TRACH MASK AT REST 4 LITERS WITH EXERTION Ibuprofen (Motrin) 600 Mg Tab 600 MG PO TID PRN for Pain, #15 TAB Insulin Aspart (novoLOG INSULIN PUMP ) 1 Ea Inj N/A UD, EA USE IN THE INSULIN PUMP DIRECTED Insulin Glargine (Lantus) 100 Unit/Ml Inj 0 SC UD PRN for PUMP MALFUNCTION USE IF NEEDED FOR A PUMP MALFUNCTION Levothyroxine Sodium (Levothyroxine Sodium) 150 Mcg Tab 150 MCG PO QAM for 90 Days, #90 TAB 3 Refills Montelukast Sodium (Singulair) 10 Mg Tab 10 MG PO HS, TAB Multiple Vitamins W/ Minerals (Therems M) 1 Tab Tab 1 TAB PO QAM Omeprazole (Prilosec) 20 Mg Capcr 20 MG PO QAM, CAP Prednisone (Prednisone) 10 Mg Tab 20 MG PO DAILY for 3 Days DAY 06/19/17-06/21/17 Prednisone (Prednisone) 10 Mg Tab 10 MG PO DAILY for 3 Days DAY 06/22/17-06/24/17 Promethazine (Phenergan ) 12.5 Mg Tab 12.5 MG PO Q8 PRN for Nausea or Vomiting, TAB Sodium Chloride (Gu Irrigant) (Sodium Chloride 0.9%) 0.9 % Mary Anne DAILY USE TO CLEAN TRACH TUBE DAILY. Sodium Fluoride (Dental) (Phos-Flur Ortho Defense) 0.044 % Mary Anne 0.5 OZ PO HS RINSE WITH 1\\2 OUNCE BY MOUTH [Percussion Vest] () TID USE WITH SETTING 14 FOR 20 MINUTES Discontinued Medications: Prednisone Tab (Prednisone) 10 Mg Tab 30 MG PO DAILY for 3 Days LAST DOSE 06/18/17 Discharge Exam General Appearance: Found patient resting comfortably, opened eyes to voice, says hello and that she's okay, but otherwise preferred keeping eyes closed. No speaking, some head nodding. Did not appear in acute distress. In afternoon , awake, smiling, giving 'thumbs up' and very interactive. CV: +S1S2 RRR, no murmur. Pulm: Minimal crackles in bilateral bases. No accessory muscle use. + tracheostomy. Abdomen: +BS, soft, non-tender, non-distended. Extremities: No pedal edema or calf tenderness. Turning about in bed easily, good emergency medcl emt strength. Neuro: No gross neuro deficits. Review of Systems: Constitutional: No fever, No chills Respiratory: No cough, No shortness of breath Abdomen: No nausea, No vomiting, No diarrhea Hospital Course HPI at time of admission on Jun 17, 2017 at 02:35 Source: family, caregiver History obtained through discussion with ER physician as well as caregivers. 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 Caregiver states that this evening around 2330 the patient's blood sugar sensor beeped to signal low blood sugar - BS=77 at that time. The patient was found to be shaking, sweating and minimally responsive which is typical behavior for patient's hypoglycemic episodes. The staff at the care home disconnected the insulin pump and administered Glucagel and Glucagon with no improvement in symptoms. 911 was called. When paramedics arrived patient was having a tonic clonic seizure. She was administered 1mg of Ativan and transported to [facility] ER. BS in the ambulance reported to be 221, however BMP drawn in ER confirmed a blood sugar of 46. She was started on an D10 gtt at 200mL/hr. Repeat blood glucose via fingerstick was 155 --> 227. Patient was very somnolent during our encounter. She was arousable and able to follow commands. Discharge summary on 19Jun2017 51 yo female admitted on 17Jun2017 for seizure in setting of hypoglycemia. 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 Tonic-clonic seizure: Approx 45 min in duration, responding to ativan 1 mg, on late Apr. Blood sugar en route to hospital was 46. See "Hypoglycemia/DM1" below. CT head here showed nothing acute. Had some noted fatigue for < 24 hours after this event, likely multifactorial from the prolonged seizure + benzo + lack of actual sleep overnight. Patient returned to baseline within 24 hours after event. EEG was non-acute. No further seizure-like activity noted during hospitalization. Hypoglycemia / DM1: Mother states long history of brittle diabetes. History of needing approx Novolog 10 units per day, but will drop precipitously if over- corrected. Previously had received glucose control as inpatient via insulin IV , then often transition back to pump at discharge. Most recently has been on steroids for a 'pulmonary infection'. Concerns about insulin pump malfunction. See pharmacy's excellent inpatient notes detailing this. Provided troubleshooting of her insulin pump, which was reportedly found to be working properly, so it was returned to her. - Emphasized importance of her caregivers being fully familiar with how the pump works, refilling procedures, etc to try to mitigate this event happening again. - C peptide from admission pending. Chronic hypoxic respiratory failure: PMH tracheal stenosis s/p tracheostomy. Baseline oxygen requirement is 2 L via nasal cannula at rest, 4 L with activity and BiPAP at night. On albuterol neb TID scheduled and QID prn. On Singulair daily. Here is breathing comfortably, afebrile thus far, but with some crackles in the bases. 02Apr CXR notes interval improvement in right basilar opacity (favoring improving PNA). Dysphagia with silent aspiration: History of same, with admission from 19May2017. Prophy bactrim briefly held, then advised to restart it on . More recently started on a course of augmentin (planned stop on ) and prednisone taper for a referenced pulmonary infection. Is on mechanical soft diet with nectar thick liquids. - Prednisone taper schedule: 30 mg on Apr. 20 mg on 06-21Apr. 10 mg on - Apr. Chronic medical issues (no acute changes made). - Hypothyroidism: On home synthroid 150 mcg daily. - Hyperlipidemia: On home atorvastatin 10 mg daily. - Depression: On home celexa 40 mg daily. - GERD: At home on prilosec 20 daily. As inpatient on protonix 40 daily. - Seasonal allergies: On home singulair Resident Physician Supervision Note: I interviewed and examined the patient. Discussed with Dr. Lui and agree with findings and plan as documented in the note. Any exceptions or clarifications are listed here: None Documented By: Kane Mcdermott like her normal self again, insulin pump functional, stable for return to home vitals noted nad breathing unlabored no pallor or icterus hypoglycemia - seizure and subsequent encephalopathy all resolved. stable for return to care home otherwise as above Total Time Spent: Less than 30 minutes This includes examination of the patient, discharge planning, medication reconciliation, and communication with other providers. Discharge Instructions Please refer to the electronic Patient Visit Report (Discharge Instructions) for additional information. Additional Copies To Vladimir Lucio M.D. Resident Tracking Resident Involvement: Resident Care Provided Care Provided: Adult Hospital Medicine (inpatient)
== END 2017-06-19 14:50 | disposition other institution (70) | DRG 637 ==
LOC: EDBD 01:05 → C.EDB 01:10 → UNDOADMOB 03:23 → C.MSW 03:23 → EDBEDREQ 03:29 → ENRESERV 03:49 → OBSVTOIN 06-18 10:32
PROVIDERS: ADMIT Family Medicine; ATTEND Family Medicine
DX: E10.649 Type 1 diabetes mellitus with hypoglycemia without coma (principal); G93.40 Encephalopathy, unspecified; J96.11 Chronic respiratory failure with hypoxia; R56.9 Unspecified convulsions; Z96.41 Presence of insulin pump (external) (internal); Z99.81 Dependence on supplemental oxygen; Z93.0 Tracheostomy status; R13.10 Dysphagia, unspecified; E03.9 Hypothyroidism, unspecified; E78.5 Hyperlipidemia, unspecified; F32.9 Major depressive disorder, single episode, unspecified; J30.2 Other seasonal allergic rhinitis; Z66 Do not resuscitate; D63.8 Anemia in other chronic diseases classified elsewhere; K21.9 Gastro-esophageal reflux disease without esophagitis; Q90.9 Down syndrome, unspecified; Z87.01 Personal history of pneumonia (recurrent); Z79.2 Long term (current) use of antibiotics; Z79.4 Long term (current) use of insulin; Z79.51 Long term (current) use of inhaled steroids; Z79.52 Long term (current) use of systemic steroids; Z79.899 Other long term (current) drug therapy; Z88.1 Allergy status to other antibiotic agents; Z88.8 Allergy status to other drugs, medicaments and biological substances; Z83.3 Family history of diabetes mellitus; Z82.49 Family history of ischemic heart disease and other diseases of the circulatory system; Z82.79 Family history of other congenital malformations, deformations and chromosomal abnormalities

== ENCOUNTER → 2017-07-01 | Outpatient (CLI) | payer OTHER ==
[~2017-07-01] MED LIST changes: -ALBINS/ INH; +AMOX875T PO; +DOXY100T PO; -FLUC100T PO; +FLUC100T4 PO; +FLUT1INH PO; -FLVHFA110 INH; -GUAI1TAB55 PO; +IBUP-1450 PO; -LINE1TAB2 PO; -MRLP17 PO; +PRED10TA PO; -SRVDIN60 INH; -TYLOTC500 PO; +[UNRECOGNIZED DRUG - SUPPLY]
--- NOTE | 2017-07-01 15:58 | DIAGNOSTIC IMAGING REPORT ---
CHEST 2 VIEWS ROUTINE CLINICAL HISTORY: J45.909 [id number] COMPARISON STUDY: 06/17/2017 FINDINGS: A tracheostomy tube is again visualized. There is a right-sided A-Port catheter. The heart is normal in size. There are developing left lower lobe airspace opacity suspicious for a pneumonia. Imaging subsequent to treatment is recommended in follow-up. There are linear subsegmental atelectatic changes at the right lung base. There are old rib deformities.[ IMPRESSION: 1. Developing left lower lobe airspace opacity suspicious for a pneumonia. Electronically signed by: Kevon Law M.D. 07/01/2017 3:56 PM Dictated Date/Time: 07/01/2017 3:55 PM
[2017-07-01 16:36] LABS: BASO % 0.6 %; BASO ABS # 0.04 K/uL (0-0.2); EOS % 0.6 %; EOS ABS # 0.04 K/uL (0-0.5); HEMATOCRIT 36.4 % (37-47); HEMOGLOBIN 11.5 g/dL (12.0-16.0); IG# 0.02 K/uL (0.00-0.02); LYMPH % 15.4 %; LYMPH ABS # 1.08 K/uL (1.2-3.4); MEAN CELL VOLUME 102.5 fL (80-100); MEAN CORPUSCULAR HEMOGLOBIN 32.4 pg (25-34); MEAN CORPUSCULAR HGB CONC 31.6 g/dl (32-36); MEAN PLATELET VOLUME 10.5 fL (7.4-10.4); MONO % 7.4 %; MONO ABS # 0.52 K/uL (0.11-0.59); NEUT % 75.7 %; NEUT ABS # 5.32 K/uL (1.4-6.5); PLATELET COUNT 187 K/uL (130-400); RED CELL DISTRIBUTION WIDTH CV 15.1 % (11.5-14.5); RED CELL DISTRIBUTION WIDTH SD 57.7 fL (36.4-46.3); WHITE BLOOD COUNT 7.02 K/uL (4.8-10.8)
[2017-07-01 17:05] LABS: ALBUMIN 3.1 gm/dl (3.4-5.0); ALT/SGPT 39 U/L (12-78); AST/SGOT 16 U/L (15-37); BLOOD UREA NITROGEN 26 mg/dl (7-18); CALCIUM 9.3 mg/dl (8.5-10.1); CARBON DIOXIDE 31 mmol/L (21-32); CREATININE 0.94 mg/dl (0.60-1.20); GLUCOSE 260 mg/dl (70-99); POTASSIUM 4.1 mmol/L (3.5-5.1); SODIUM 138 mmol/L (136-145)
[2017-07-01 17:08] LABS: ALKALINE PHOSPHATASE 105 U/L (45-117); TOTAL PROTEIN 7.1 gm/dl (6.4-8.2)
== END | disposition home or self-care (01) ==
LOC: C.RAD1850 15:29
PROVIDERS: ATTEND Internal Medicine Pulmonary Disease
DX: J45.909 Unspecified asthma, uncomplicated (principal); R05 Cough; J40 Bronchitis, not specified as acute or chronic

== ENCOUNTER → 2017-07-31 | Outpatient (CLI) | payer OTHER ==
[~2017-07-31] MED LIST changes: -AMOX875T PO; -INSDGI SC; +INSU100I23; -PRED10TA PO; +[UNRECOGNIZED DRUG - CODE] NEB
--- NOTE | 2017-07-31 17:30 | DIAGNOSTIC IMAGING REPORT ---
CHEST 2 VIEWS ROUTINE HISTORY: 52 years-old Female [id number] COMPARISON: Chest radiograph 07/01/2017 TECHNIQUE: PA and lateral views of the chest FINDINGS: Cardiac silhouette is mildly enlarged, unchanged. Right internal jugular [id number]-m-[id number] catheter and tracheostomy cannula appear unchanged. There is no pneumothorax. Development of a small left pleural effusion with progressively worsened left infrahilar and left basilar airspace opacities. Subsegmental opacities about the medial right lung base are also noted. Bones appear grossly intact. IMPRESSION: 1. Progressively worsened left infrahilar and left basilar opacities suggest pneumonia with trace left pleural effusion. Follow-up to document resolution is recommended. 2. Subsegmental opacities about the medial right lung base suggest atelectasis or pneumonia. The above report was generated using voice recognition software. It may contain grammatical, syntax or spelling errors. Electronically signed by: Trung Betts M.D. 07/31/2017 5:28 PM Dictated Date/Time: 07/31/2017 5:27 PM
== END | disposition home or self-care (01) ==
LOC: C.RAD1850 16:31
PROVIDERS: ATTEND Physician Assistant
DX: J40 Bronchitis, not specified as acute or chronic (principal)

== ENCOUNTER 2017-10-27 04:58 | Inpatient (IN) | payer OTHER ==
[2017-10-27] VITALS (7 sets, daily range): BP systolic 106–130; BP diastolic 55–69; PULSE 51–104; TEMP 36.5–37; O2SAT 94–98; BMI 27.2
[~2017-10-27] VITALS: Ht 147.3 cm; Wt 61.4 kg
[~2017-10-27 04:58] MED LIST changes: +AMOX875T PO; +AZIT250T PO
[2017-10-27] MEDS ORDERED: ALBUT/IPRATROP 3MG/0.5MG NEB 3 ML VIAL INH ONE (05:15)
--- NOTE | 2017-10-27 05:40 | EMERGENCY ROOM VISIT NOTE ---
History First contact with patient: 05:07 Chief Complaint: FEVER Stated Complaint: FEVER,RESP. SYMS History of Present Illness The patient is a 52 year old female who presents to the Emergency Room for evaluation of difficulty breathing. Patient with 1 week of cough. Requiring increasing NC O2 to 4 L NC from 2. Associated SHOB. Started on abx and steroids with continued worsening. Worse at night and laying flat. This morning with 103F temp. Given Tylenol and starting to trend down. No syncope, cp, abdominal pain, urinary/bowel changes, leg swelling, headache, throat pain, ear pain nor other symptoms. History of previous multifocal pneumonia just 6 months ago and recurrent pneumonias. She also has Pulm HTN, Down's Syndrome, Tracheostomy, GERD, Anemia amonst others. Review of Systems See HPI for pertinent positives & negatives. A total of 10 systems reviewed and were otherwise negative. Past Medical/Surgical History Medical Problems: (1) ASTHMA, UNSPECIFIED (2) CONGESTIVE HEART FAILURE (3) Constipation (4) DIAB UVALDO WO COMPL, TYPE I [JUVENILE TYPE], NOT UNCNTRLD (5) DOWN'S SYNDROME (6) Elevated white blood cell count (7) GERD (gastroesophageal reflux disease) (8) Hypoglycemia associated with diabetes (9) Hypoglycemia associated with diabetes (10) Hypothyroidism (11) Seizure-like activity (12) SOB (shortness of breath) Surgical Problems: (1) Hx of tracheostomy Family History Diabetes mellitus FH: CAD (coronary artery disease) FHx: Down syndrome Myocardial infarction Social History Smoking Status: Never Smoker Alcohol Use: none Drug Use: none Marital Status: single Housing Status: other Occupation Status: disabled Current/Historical Medications Scheduled Acetylcysteine (Acetylcysteine), 4 ML NEB TID Albuterol Sulf (Proventil 0.083% 2.5MG/3ML), 2.5 MG TR TID Amoxicillin & Pot Clavulanate (Augmentin 875-125 mg), 1 TAB PO Q12 Atorvastatin (Lipitor), 10 MG PO HS Azithromycin (Zithromax), 250 MG PO DAILY Calcium Carbonate-Cholecalcife (Oyster Shell Calcium + D), 1 TAB PO TID Citalopram Hydrobromide (Celexa), 40 MG PO DAILY Ergocalciferol (Vitamin D 47590 Unit), 50,000 UNIT PO WK Fexofenadine Hcl (Danielle), 180 MG PO HS Fluticasone Furoate-Vilanterol (Breo Ellipta), 1 PUFF PO DAILY Home O2 Therapy (Oxygen), LITER UD Insulin Aspart (novoLOG INSULIN PUMP ), N/A UD Insulin Glargine (Basaglar Kwikpen), as needed Levothyroxine Sodium (Levothyroxine Sodium), 150 MCG PO QAM Montelukast Sodium (Singulair), 10 MG PO HS Multiple Vitamins W/ Minerals (Therems M), 1 TAB PO QAM Omeprazole (Prilosec), 20 MG PO QAM Prednisone (Prednisone), 10 MG PO UD Prednisone Tab (Prednisone), 10 MG PO DAILY Sodium Chloride (Gu Irrigant) (Sodium Chloride 0.9%), DAILY Sodium Fluoride (Dental) (Phos-Flur Ortho Defense), 0.5 OZ PO HS [Percussion Vest], TID Scheduled PRN Acetaminophen Tab (Tylenol), 650 MG PO Q4 PRN for Fever Acetaminophen Tab (Tylenol), 650 MG PO Q4 PRN for Headache Albuterol Hfa (Ventolin Hfa), 2 PUFFS INH QID PRN for Shortness of Breath Clotrimazole (Topical) (Anti-Fungal), 1 APPLN TOP TID PRN for RASH Dextrose (Diabetic Use) (Insta-Glucose), 1 TUBE PO DIRECTED PRN for LOW BLOOD SUGAR Fluconazole (Diflucan), 150 MG PO UD PRN for yeast infection Furosemide (Lasix), 20 MG PO DAILY PRN for WEIGHT GAIN Glucagon (Glucagon Emergency Kit), 1 MG IM for UNRESPONSIVE Glucose-Vitamin C (Dex4), 1 TAB PO DAILY PRN for LOW BLOOD SUGARS Promethazine (Phenergan ), 12.5 MG PO Q8 PRN for Nausea or Vomiting Miscellaneous Medications Thickened Products (Thick-It) Physical Exam Vital Signs Date Time Temp Pulse Resp B/P (MAP) Pulse Ox O2 Delivery O2 Flow Rate FiO2 10/27/17 08:55 101 24 128/65 93 Nasal Cannula 4.0 10/27/17 07:25 94 24 117/51 91 Nasal Cannula 4.0 10/27/17 06:25 62 24 118/65 99 Nebulizer Trach Collar 10/27/17 06:05 51 20 98 Nasal Cannula 4.0 10/27/17 05:56 60 8/12/18 05:01 37.4 69 18 104/67 98 Nasal Cannula 4.0 Physical Exam GENERAL: Patient is well appearing and in mild distress. Getting happy/excited which causing her to cough/shob EYES: No scleral icterus, unremarkable pupils. ENT: Mucous membranes moist, no nasal congestion. NECK: No masses appreciated, no meningismus, trachea is midline. RESPIRATORY: Moderate Dyspnea, Decreased RLL breath sounds with diffuse tight sounds and faint wheezing. CARDIOVASCULAR: Regular rate and rhythm. No murmurs, rubs, gallops appreciated. GASTROINTESTINAL: Abdomen soft, nontender, no peritonitis. Bowel sounds positive. No masses appreciated. BACK: No midline tenderness, no CVA tenderness EXTREMITIES: Normal motion all extremities, no cyanosis, no edema. NEUROLOGIC: Alert and oriented, no acute motor or sensory deficits, no focal weakness, cranial nerves grossly intact. SKIN: No rash, no jaundice, no diaphoresis. Medical Decision & Procedures ER Provider Diagnostic Interpretation: X ray results are stated below per my interpretation: Chest: 1 view: Bilateral lower lobe infiltrates, R > L with similar to previous pneumonia CXRs. Laboratory Results Test 10/27/17 05:32 10/27/17 05:38 10/27/17 05:50 RDW Standard Deviation 52.8 fL (36.4-46.3) RDW Coefficient of Variation 14.3 % (11.5-14.5) White Blood Count 11.06 K/uL (4.8-10.8) Red Blood Count 3.56 M/uL (4.2-5.4) Hemoglobin 11.6 g/dL (12.0-16.0) Hematocrit 35.7 % (37-47) Mean Corpuscular Volume 100.3 fL (80-100) Mean Corpuscular Hemoglobin 32.6 pg (25-34) Mean Corpuscular Hemoglobin Concent 32.5 g/dl (32-36) Platelet Count 190 K/uL (130-400) Mean Platelet Volume 10.7 fL (7.4-10.4) Neutrophils (%) (Auto) 85.0 % Lymphocytes (%) (Auto) 7.2 % Monocytes (%) (Auto) 7.1 % Eosinophils (%) (Auto) 0.0 % Basophils (%) (Auto) 0.3 % Neutrophils # (Auto) 9.40 K/uL (1.4-6.5) Lymphocytes # (Auto) 0.80 K/uL (1.2-3.4) Monocytes # (Auto) 0.79 K/uL (0.11-0.59) Eosinophils # (Auto) 0.00 K/uL (0-0.5) Basophils # (Auto) 0.03 K/uL (0-0.2) Immature Granulocyte % (Auto) 0.4 % Immature Granulocyte # (Auto) 0.04 K/uL (0.00-0.02) Prothrombin Time 10.3 SECONDS (9.0-12.0) Prothromb Time International Ratio 1.0 (0.9-1.1) Total Bilirubin 0.2 mg/dl (0.2-1) Direct Bilirubin < 0.1 mg/dl (0-0.2) Aspartate Amino Transf (AST/SGOT) 21 U/L (15-37) Alanine Aminotransferase (ALT/SGPT) 50 U/L (12-78) Alkaline Phosphatase 168 U/L (45-117) Total Creatine Kinase 29 U/L (26-192) Creatine Kinase MB < 1.0 ng/ml (0.5-3.6) Creatine Kinase MB Ratio (0-3.0) Troponin I < 0.015 ng/ml (0-0.045) Total Protein 6.5 gm/dl (6.4-8.2) Albumin 2.6 gm/dl (3.4-5.0) Procalcitonin 0.31 ng/ml (0-0.5) Bedside Lactic Acid Venous 0.79 mmol/L (0.90-1.70) Urine Color YELLOW Urine Appearance CLEAR (CLEAR) Urine pH 5.0 (4.5-7.5) Urine Specific [place] 1.018 (1.000-1.030) Urine Protein NEG (NEG) Urine Glucose (UA) NEG (NEG) Urine Ketones NEG (NEG) Urine Occult Blood NEG (NEG) Urine Nitrite NEG (NEG) Urine Bilirubin NEG (NEG) Urine Urobilinogen NEG (NEG) Urine Leukocyte Esterase TRACE (NEG) Urine WBC (Auto) 1-5 /hpf (0-5) Urine RBC (Auto) 0-4 /hpf (0-4) Urine Hyaline Casts (Auto) 0 /lpf (0-5) Urine Epithelial Cells (Auto) 5-10 /lpf (0-5) Urine Bacteria (Auto) NEG (NEG) Medications Administered Medications (Trade) Dose Ordered Sig/Rene Route Start Time Stop Time Status Last Admin Dose Admin Albuterol/ Ipratropium (Duoneb) 12 ml ONE ONCE INH 10/27/17 05:15 10/27/17 05:16 DC 10/27/17 06:05 12 ML Levofloxacin (Levaquin / D5W) 750 mg NOW STAT IV 10/27/17 07:11 10/27/17 07:12 DC 10/27/17 07:22 750 MG Methylprednisolone Sodium Succinate (Solu-Medrol IV) 125 mg NOW STAT IV 10/27/17 07:11 10/27/17 07:12 DC 10/27/17 07:22 125 MG Vancomycin HCl (Vancomycin 1gm Ed/Asu Omnicell) 1 gm STK-MED ONCE .ROUTE 10/27/17 07:54 10/27/17 07:55 DC 10/27/17 07:58 1 GM ECG Per My Interpretation Indication: SOB/dyspnea Rate (beats per minute): 57 Rhythm: sinus bradycardia Findings: no acute ischemic change, no ectopy (QTC 406) Medical Decision Differential: Viral, Pharyngitis, Cellulitis, Pneumonia, Influenza, Meningitis, Sepsis, Bacteremia, UTI/Pyelonephritis, Endocrine, Toxicologic, amongst other pathologies entertained. 52 yr old female with chronic trach and frequent admissions for pneumonia on abx and prednisone for the last 3 days Worsening SHOB requiring increased NC O2 as well as now having fevers at correction. Tight lung sounds on arrival which after hour neb she now has loud diffuse wheezing. Bilateral pneumonia on CXR. No LA elevation and WBC is OK currently. She is not tachy nor hypotensive. I do not feel she is overtly septic currently> Given IV solumedrol and as she has been on ZPack and Augmentin I ordered IV Levaquin here. Reviewed with Dr Benson of [facility] who will evaluate further. Head Trauma GCS Score: 15 Medication Reconcilliation Current Medication List: was personally reviewed by me Blood Pressure Screening Patient's blood pressure: Normal blood pressure Impression Primary Impression: Bilateral pneumonia Additional Impression: Failure of outpatient treatment Departure Information Referrals Pro,Vladimir Pennington M.D. (PCP) Patient Instructions My [facility] Health Problem Qualifiers
[2017-10-27 05:51] LABS: BASO % 0.3 %; BASO ABS # 0.03 K/uL (0-0.2); HEMATOCRIT 35.7 % (37-47); HEMOGLOBIN 11.6 g/dL (12.0-16.0); IG# 0.04 K/uL (0.00-0.02); LYMPH % 7.2 %; MEAN CELL VOLUME 100.3 fL (80-100); MEAN CORPUSCULAR HEMOGLOBIN 32.6 pg (25-34); MEAN CORPUSCULAR HGB CONC 32.5 g/dl (32-36); MEAN PLATELET VOLUME 10.7 fL (7.4-10.4); MONO % 7.1 %; MONO ABS # 0.79 K/uL (0.11-0.59); PLATELET COUNT 190 K/uL (130-400); RED CELL DISTRIBUTION WIDTH CV 14.3 % (11.5-14.5); RED CELL DISTRIBUTION WIDTH SD 52.8 fL (36.4-46.3); WHITE BLOOD COUNT 11.06 K/uL (4.8-10.8)
[2017-10-27 06:15] LABS: ALBUMIN 2.6 gm/dl (3.4-5.0); ALKALINE PHOSPHATASE 168 U/L (45-117); ALT/SGPT 50 U/L (12-78); AST/SGOT 21 U/L (15-37); BLOOD UREA NITROGEN 21 mg/dl (7-18); CALCIUM 8.4 mg/dl (8.5-10.1); CARBON DIOXIDE 29 mmol/L (21-32); CKMB < 1.0 ng/ml (0.5-3.6); CREATININE 0.88 mg/dl (0.60-1.20); GLUCOSE 193 mg/dl (70-99); POTASSIUM 4.1 mmol/L (3.5-5.1); SODIUM 135 mmol/L (136-145); TOTAL PROTEIN 6.5 gm/dl (6.4-8.2)
[2017-10-27] MEDS ORDERED: ACET-1693 PO (06:32)
[2017-10-27] MEDS ORDERED: CITA40TA12 PO (06:36)
[2017-10-27] MEDS ORDERED: FLUC150T PO (06:44)
[2017-10-27] MEDS ORDERED: ALBINS/ INH (06:45)
[2017-10-27] MEDS ORDERED: THIC1LIQ (06:46)
[2017-10-27] MEDS ORDERED: PRED10TA PO ×2 (06:52→06:58)
--- NOTE | 2017-10-27 07:09 | DIAGNOSTIC IMAGING REPORT ---
CHEST ONE VIEW PORTABLE CLINICAL HISTORY: Fever. COMPARISON STUDY: Chest radiograph September 19, 2017. FINDINGS: Tracheostomy tube and right subclavian [id number] are in place. There is no pneumothorax. Cardiomediastinal silhouette is stable with redemonstration of a right aortic arch. There is no evidence for pulmonary edema. Bibasilar opacities, left greater than right, persist. Old left rib fractures are noted. IMPRESSION: Persistent bibasilar consolidation, left greater than right. This favors pneumonia. Radiographic follow up to ensure resolution is recommended. Electronically signed by: Manny Gorman M.D. 10/27/2017 7:08 AM Dictated Date/Time: 10/27/2017 7:06 AM
[2017-10-27] MEDS ORDERED: METHYLPREDNISOLONE 125 MG VIAL IV STA (07:11)
[2017-10-27] MEDS ORDERED: LEVAQUIN 750MG / 150ML D5W IV STA (07:11)
--- NOTE | 2017-10-27 07:29 | History and Physical ---
History & Physical Date & Time of Service: Oct 27, 2017 at 07:25 Chief Complaint: Fever,Resp. Syms Primary Care Physician: Vladimir Lucio M.D. 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 She is typically on various antibiotics presumably for prophylaxis at home to include Bactrim, doxycycline, and daily Augmentin most recently. She had her Augmentin increase to twice daily and was prescribed azithromycin the day prior to admission, as well as a burst of prednisone with planned taper. When she spiked a fever and complained of a headache and was more lethargic, she was brought into the ER. She was given a 1 hour nebulizer treatment and had some improvement in her wheezing, found to have a bilateral lower lobe pneumonia on chest x-ray, and was given IV Levaquin as well as IV Solu-Medrol. Her glucose log from home shows her glucose was in the 500s yesterday after starting the higher dose of prednisone. She has a history of MRSA and E. coli pneumonias with E. coli being resistant to Levaquin in the past. She will be admitted for bilateral pneumonia. Past Medical/Surgical History PMH: Down Syndrome DM Type 1 on insulin pump seizure disorder chronic hypoxic respiratory failure dysphagia with silent aspiration and recurrent aspiration pneumonias hypothyroidism hyperlipidemia Depression seasonal allergies GERD CAMILLA on BiPAP Anemia of chronic disease History of transposition of great vessels s/p aortic relocation surgery Tracheal stenosis s/p tracheostomy Pulmonary HTN Right sided heart failure/cor pulmonale H/o PFO PSH: Tracheostomy Aortic relocation surgery for transposition of great vessels Hand surgery Thoracotomy Family History Diabetes mellitus FH: CAD (coronary artery disease) FHx: Down syndrome Myocardial infarction Social History Smoking Status: Never Smoker Alcohol Use: none Drug Use: none Marital Status: single Housing status: assisted living Occupational Status: disabled Immunizations History of Influenza Vaccine: N/A Influenza Vaccine Date: Dec 18, 2005 History of Tetanus Vaccine?: Unknown Tetanus Immunization Date: May 22, 2001 History of Pneumococcal: Yes Pneumococcal Date: August 15, 2012 History of Hepatitis B Vaccine: No Allergies Coded Allergies: Cephalosporins (Verified Allergy, Intermediate, rash per mother, 10/27/17) TOLERATED ZOSYN IN PAST ADMISSION AND 05/17/15 Cefaclor (Verified Allergy, Unknown, HIVES, 10/27/17) TOLERATED ZOSYN IN PAST ADMISSION AND 05/17/15 Sertraline (Verified Allergy, Unknown, INTOLERANCE, 10/27/17) Home Medications Scheduled Acetylcysteine (Acetylcysteine), 4 ML NEB TID Albuterol Sulf (Proventil 0.083% 2.5MG/3ML), 2.5 MG TR TID Amoxicillin & Pot Clavulanate (Augmentin 875-125 mg), 1 TAB PO Q12 Atorvastatin (Lipitor), 10 MG PO HS Azithromycin (Zithromax), 250 MG PO DAILY Calcium Carbonate-Cholecalcife (Oyster Shell Calcium + D), 1 TAB PO TID Citalopram Hydrobromide (Celexa), 40 MG PO DAILY Ergocalciferol (Vitamin D 41220 Unit), 50,000 UNIT PO WK Fexofenadine Hcl (Danielle), 180 MG PO HS Fluticasone Furoate-Vilanterol (Breo Ellipta), 1 PUFF PO DAILY Home O2 Therapy (Oxygen), LITER UD Insulin Aspart (novoLOG INSULIN PUMP ), N/A UD Insulin Glargine (Basaglar Kwikpen), as needed Levothyroxine Sodium (Levothyroxine Sodium), 150 MCG PO QAM Montelukast Sodium (Singulair), 10 MG PO HS Multiple Vitamins W/ Minerals (Therems M), 1 TAB PO QAM Omeprazole (Prilosec), 20 MG PO QAM Prednisone (Prednisone), 10 MG PO UD Prednisone Tab (Prednisone), 10 MG PO DAILY Sodium Chloride (Gu Irrigant) (Sodium Chloride 0.9%), DAILY Sodium Fluoride (Dental) (Phos-Flur Ortho Defense), 0.5 OZ PO HS [Percussion Vest], TID Scheduled PRN Acetaminophen Tab (Tylenol), 650 MG PO Q4 PRN for Fever Acetaminophen Tab (Tylenol), 650 MG PO Q4 PRN for Headache Albuterol Hfa (Ventolin Hfa), 2 PUFFS INH QID PRN for Shortness of Breath Clotrimazole (Topical) (Anti-Fungal), 1 APPLN TOP TID PRN for RASH Dextrose (Diabetic Use) (Insta-Glucose), 1 TUBE PO DIRECTED PRN for LOW BLOOD SUGAR Fluconazole (Diflucan), 150 MG PO UD PRN for yeast infection Furosemide (Lasix), 20 MG PO DAILY PRN for WEIGHT GAIN Glucagon (Glucagon Emergency Kit), 1 MG IM for UNRESPONSIVE Glucose-Vitamin C (Dex4), 1 TAB PO DAILY PRN for LOW BLOOD SUGARS Promethazine (Phenergan ), 12.5 MG PO Q8 PRN for Nausea or Vomiting Miscellaneous Medications Thickened Products (Thick-It) Review of Systems Constitutional: + fever, + chills, + sweats, + fatigue Eyes: No problem reported ENT: + sore throat Respiratory: + cough, + sputum, + wheezing, + shortness of breath, No hemoptysis Cardiovascular: No chest pain Abdomen: No pain, No nausea, No vomiting, No diarrhea, No constipation Musculoskeletal: No problem reported Genitourinary - Female: No problem reported Neurologic: No problem reported Psychiatric: No problem reported Endocrine: + problem reported (Hyperglycemia at home) Hematologic / Lymphatic: No problem reported Integumentary: No problem reported Allergic / Immunologic: No problem reported Physical Exam Vital Signs Date Time Temp Pulse Resp B/P (MAP) Pulse Ox O2 Delivery O2 Flow Rate FiO2 10/27/17 06:25 62 24 118/65 99 Nebulizer Trach Collar 10/27/17 06:05 51 20 98 Nasal Cannula 4.0 10/27/17 05:56 60 10/27/17 05:01 37.4 69 18 104/67 98 Nasal Cannula 4.0 General Appearance: no apparent distress, + pertinent finding (Dysmorphic features consistent with Down syndrome) Head: normocephalic, atraumatic Eyes: normal inspection, PERRL, EOMI, sclerae normal ENT: hearing grossly normal, pharynx normal Neck: supple, no adenopathy, no JVD, trachea midline Respiratory/Chest: no respiratory distress, no accessory muscle use, + rhonchi (Bilateral lower lobes), + wheezing ( scattered in the upper airways) Cardiovascular: regular rate, rhythm, no edema, + systolic murmur Abdomen/GI: normal bowel sounds, non tender, soft, no organomegaly Genitourinary - Female: external genitalia normal Back: normal inspection Extremities/Musculoskelatal: normal inspection, no calf tenderness, normal capillary refill, no pedal edema, normal range of motion Neurologic/Psych: no motor/sensory deficits, alert, normal mood/affect Skin: normal color, warm/dry, no rash Lymphatic: no adenopathy Diagnostics Laboratory Results Results Past 24 Hours Test 10/27/17 05:32 10/27/17 05:38 10/27/17 05:50 Range/Units White Blood Count 11.06 4.8-10.8 K/uL Red Blood Count 3.56 4.2-5.4 M/uL Hemoglobin 11.6 12.0-16.0 g/dL Hematocrit 35.7 37-47 % Mean Corpuscular Volume 100.3 80-100 fL Mean Corpuscular Hemoglobin 32.6 25-34 pg Mean Corpuscular Hemoglobin Concent 32.5 32-36 g/dl Platelet Count 190 130-400 K/uL Mean Platelet Volume 10.7 7.4-10.4 fL Neutrophils (%) (Auto) 85.0 % Lymphocytes (%) (Auto) 7.2 % Monocytes (%) (Auto) 7.1 % Eosinophils (%) (Auto) 0.0 % Basophils (%) (Auto) 0.3 % Neutrophils # (Auto) 9.40 1.4-6.5 K/uL Lymphocytes # (Auto) 0.80 1.2-3.4 K/uL Monocytes # (Auto) 0.79 0.11-0.59 K/uL Eosinophils # (Auto) 0.00 0-0.5 K/uL Basophils # (Auto) 0.03 0-0.2 K/uL RDW Standard Deviation 52.8 36.4-46.3 fL RDW Coefficient of Variation 14.3 11.5-14.5 % Immature Granulocyte % (Auto) 0.4 % Immature Granulocyte # (Auto) 0.04 0.00-0.02 K/uL Prothrombin Time 10.3 9.0-12.0 SECONDS Prothromb Time International Ratio 1.0 0.9-1.1 Sodium Level 135 136-145 mmol/L Potassium Level 4.1 3.5-5.1 mmol/L Chloride Level 101 98-107 mmol/L Carbon Dioxide Level 29 21-32 mmol/L Anion Gap 5.0 3-11 mmol/L Blood Urea Nitrogen 21 7-18 mg/dl Creatinine 0.88 0.60-1.20 mg/dl Estimated GFR () 86.9 Estimated GFR (Non- 75.0 BUN/Creatinine Ratio 24.1 10-20 Random Glucose 193 70-99 mg/dl Calcium Level 8.4 8.5-10.1 mg/dl Magnesium Level 1.7 1.8-2.4 mg/dl Total Bilirubin 0.2 0.2-1 mg/dl Direct Bilirubin < 0.1 0-0.2 mg/dl Aspartate Amino Transf (AST/SGOT) 21 15-37 U/L Alanine Aminotransferase (ALT/SGPT) 50 12-78 U/L Alkaline Phosphatase 168 45-117 U/L Total Creatine Kinase 29 26-192 U/L Creatine Kinase MB < 1.0 0.5-3.6 ng/ml Creatine Kinase MB Ratio 0-3.0 Troponin I < 0.015 0-0.045 ng/ml Total Protein 6.5 6.4-8.2 gm/dl Albumin 2.6 3.4-5.0 gm/dl Procalcitonin 0.31 0-0.5 ng/ml Bedside Lactic Acid Venous 0.79 0.90-1.70 mmol/L Urine Color YELLOW Urine Appearance CLEAR CLEAR Urine pH 5.0 4.5-7.5 Urine Specific [place] 1.018 1.000-1.030 Urine Protein NEG NEG Urine Glucose (UA) NEG NEG Urine Ketones NEG NEG Urine Occult Blood NEG NEG Urine Nitrite NEG NEG Urine Bilirubin NEG NEG Urine Urobilinogen NEG NEG Urine Leukocyte Esterase TRACE NEG Urine WBC (Auto) 1-5 0-5 /hpf Urine RBC (Auto) 0-4 0-4 /hpf Urine Hyaline Casts (Auto) 0 0-5 /lpf Urine Epithelial Cells (Auto) 5-10 0-5 /lpf Urine Bacteria (Auto) NEG NEG Microbiology Results 10/27/17 Blood Culture, Received Pending 10/27/17 Blood Culture, Received Pending Diagnostic Radiology Chest x-ray image personally reviewed by me and agree with the following report: CHEST ONE VIEW PORTABLE CLINICAL HISTORY: Fever. COMPARISON STUDY: Chest radiograph September 19, 2017. FINDINGS: Tracheostomy tube and right subclavian [id number] are in place. There is no pneumothorax. Cardiomediastinal silhouette is stable with redemonstration of a right aortic arch. There is no evidence for pulmonary edema. Bibasilar opacities, left greater than right, persist. Old left rib fractures are noted. IMPRESSION: Persistent bibasilar consolidation, left greater than right. This favors pneumonia. Radiographic follow up to ensure resolution is recommended. 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 She is typically on various antibiotics presumably for prophylaxis at home to include Bactrim, doxycycline, and daily Augmentin most recently. She had her Augmentin increase to twice daily and was prescribed azithromycin the day prior to admission, as well as a burst of prednisone with planned taper. When she spiked a fever and complained of a headache and was more lethargic, she was brought into the ER. She was given a 1 hour nebulizer treatment and had some improvement in her wheezing, found to have a bilateral lower lobe pneumonia on chest x-ray, and was given IV Levaquin as well as IV Solu-Medrol. Her glucose log from home shows her glucose was in the 500s yesterday after starting the higher dose of prednisone. She will be admitted for bilateral pneumonia. Bilateral lower lobe pneumonia/fever/tracheal stenosis with tracheostomy-sepsis not POA, however did have a fever at home prior to arrival. Has history of recurrent aspiration and this very well could be an aspiration pneumonia.She has a history of MRSA and E. coli pneumonias with E. coli being resistant to Levaquin in the past. -Admit to telemetry -Continue supplemental O2 continuously to keep pulse ox greater than 92% -Start IV Zosyn and IV vancomycin to cover for history of resistant E. coli and MRSA both growing in sputum -Follow blood cultures, obtain sputum culture from the trach -Consult pulmonology for any further recommendations-appreciated -Continue prednisone 40 mg daily and taper down-caution with history of significant hyperglycemia -Continue recommended speech therapy diet from previously-mechanical soft nectar thick liquids -Follow chest x-ray to resolution -Continue albuterol nebulizers scheduled, Mucomyst nebs scheduled, chest PT 3 times daily -Follow CBC -Continue IV fluids with normal saline at 75 ML's per hour DM 1, uncontrolled, known brittle diabetic on insulin pump-with history of hypoglycemia and hyperglycemia. Last hemoglobin A1c 8.8% in 05/2017. Follows with endocrinology as an outpatient. No evidence of DKA at this time -Plan to remove her from her insulin pump while admitted -Consult glycemic pharmacy management-appreciated and discussed the case with the pharmacist today in the phone -Plan for basal bolus insulin with possibility for insulin drip if needed given IV steroids administration -Check hemoglobin A1c -Watch electrolytes and follow PRP Chronic hypoxic respiratory failure/CAMILLA on BiPAP/tracheal stenosis with tracheostomy/chronic bronchitis- -Continue supplemental O2 and BiPAP at night as per home -Trach care -Continue Brio ellipta Down syndrome-noted -Supportive care Seizure disorder-noted, with hypoglycemic seizures, not on antiepileptic drugs -Observe and manage glucose appropriately as above Hypothyroidism-last TSH 0.996 in 05/2017, compensated -Continue home levothyroxine dose Hyperlipidemia-stable -Continue statin Major depressive disorder-stable -Continue SSRI Seasonal allergies-stable -Continue Singulair GERD-stable -Continue PPI Anemia of chronic disease-hemoglobin improved from previous 11.6, is macrocytic. Previous iron studies showed anemia of chronic disease, B12 and folate were normal in the last 6 months. 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
[2017-10-27] MEDS ORDERED: VANCOMYCIN IV 1,000 MG in SODIUM CHLORIDE 0.9% 250ML 250 ML IV STA (07:40)
[2017-10-27] MEDS ORDERED: VANCOMYCIN CONSULT ACTIVE PRN ×2 (07:45)
[2017-10-27] MEDS ORDERED: PIPERACILL/TAZOBAC CONSULT ACTIVE PRN (07:45)
[2017-10-27] MEDS ORDERED: VANCOMYCIN 1GM ED/ASU OMNICELL ONE (07:54)
[2017-10-27] MEDS ORDERED: VANCOMYCIN IV 1,000 MG in SODIUM CHLORIDE 0.9% 250ML 250 ML IV SCH (09:00)
[2017-10-27] MEDS ORDERED: ACETAMINOPHEN 325 MG TAB PO PRN (09:00)
[2017-10-27] MEDS ORDERED: PHARMACY GLYCEMIC MGMT CONSULT PRN (09:14)
[2017-10-27] MEDS ORDERED: CLOTRIMAZOLE 1% CR 15 GM TUBE EXT PRN (09:15)
[2017-10-27] MEDS ORDERED: GLUCAGON FOR INJ 1 MG VIAL SQ PRN (09:15)
[2017-10-27] MEDS ORDERED: GLUCOSE 10 TABS/TUBE PO PRN (09:15)
[2017-10-27] MEDS ORDERED: DEXTROSE 50% 50 ML SYR IV PRN (09:15)
[2017-10-27] MEDS ORDERED: PROMETHAZINE HCL 25 MG TAB PO PRN (09:15)
[2017-10-27] MEDS ORDERED: DC ALL PREVIOUSLY ORDERED DIABETES MEDS ONE (09:15)
[2017-10-27] MEDS ORDERED: GLUCOSE 40% GEL 15 GM TUBE PO PRN (09:15)
[2017-10-27] MEDS ORDERED: CARBOHYDRATES FOR HYPOGLYCEMIA PO PRN (09:15)
[2017-10-27] MEDS ORDERED: INSULIN IV INFUSION PROTOCOL STA (10:22)
[2017-10-27] MEDS ORDERED: MODERATE STRESS LEVEL ONE (10:30)
[2017-10-27] MEDS ORDERED: INSULIN PROTOCOL GOAL RANGE ONE (10:30)
[2017-10-27] MEDS ORDERED: NovoLIN R BOLUS FROM BAG IV ONE (10:30)
--- NOTE | 2017-10-27 10:42 | Pharmacy Progress Note ---
Glycemic Control Intl Consult Date of Service Oct 27, 2017. Scope Glycemic Pharmacist consulted by Dr Benson on 10/27/17 for glycemic control and to write orders per [facility] inpatient glycemic control protocol Objective Weight (Kilograms): 59.100 Accuchecks BSG (last 24hrs): Test 10/27/17 05:32 10/27/17 10:16 10/27/17 10:17 Random Glucose 193 mg/dl (70-99) Bedside Glucose 480 mg/dl (70-90) 459 mg/dl (70-90) Laboratory Data (last 24hrs) Test 10/27/17 05:32 Anion Gap 5.0 mmol/L BUN/Creatinine Ratio 24.1 Blood Urea Nitrogen 21 mg/dl Creatinine 0.88 mg/dl Potassium Level 4.1 mmol/L Sodium Level 135 mmol/L White Blood Count 11.06 K/uL Red Blood Count 3.56 M/uL Hemoglobin 11.6 g/dL Hematocrit 35.7 % Mean Corpuscular Volume 100.3 fL Mean Corpuscular Hemoglobin 32.6 pg Mean Corpuscular Hemoglobin Concent 32.5 g/dl Platelet Count 190 K/uL Mean Platelet Volume 10.7 fL Neutrophils (%) (Auto) 85.0 % Lymphocytes (%) (Auto) 7.2 % Monocytes (%) (Auto) 7.1 % Eosinophils (%) (Auto) 0.0 % Basophils (%) (Auto) 0.3 % Neutrophils # (Auto) 9.40 K/uL Lymphocytes # (Auto) 0.80 K/uL Monocytes # (Auto) 0.79 K/uL Eosinophils # (Auto) 0.00 K/uL Basophils # (Auto) 0.03 K/uL Recent Pertinent Medications Outpatient Anti-diabetic Regimen: * Novolog insulin pump - will need to obtain outpatient settings * A1c = 8.8 % 05/2017 Risk Factors for Insulin Resistance: * Steroids: Solu-medrol 125 mg IV x 1 this AM -> will continue on prednisone 40 mg daily from tomorrow * Infection: pneumonia * Diet: type 1 diabetes Assessment & Plan ASSESSMENT: * 52 y/o female well known to the pharmacy glycemic service from previous admissions, maintained on an insulin pump as an outpatient, which her caregivers manage * BSG on admission was slightly elevated at 193 mg/dL but increased significantly s/p steroid administration -> 480 mg/dL * Insulin pump was turned off ~10 am when admitted to the floor, d/t patient's inability to manage it * Spoke with Dr. Benson earlier this AM and noted that insulin drip would probably be necessary initially. With extremely elevated BSG, insulin drip was initiated as soon as patient arrived on the unit. * RN has called a few times because BSGs have remained elevated. No infiltration noted. I told her that pharmacy can compound a new bag if BSGs remain unchanged. PLAN FOR INPATIENT GLYCEMIC CONTROL: * Start IV insulin infusion per moderate stress protocol, due to patient having type 1 diabetes * Goal Range 150 - 250 mg/dl * In the critical care setting, continuous IV insulin infusion has been shown to be the best method for achieving glycemic targets. * Set carb ratio of 1 unit per 8 grams CHO consumed d/t steroid use * Resume insulin pump prior to discharge * Updated A1c ordered w/ AM labs to assess recent outpatient control and provide discharge recommendations * Please note that the plan above was derived based on current level of insulin resistance and hospital stress. These recommendations are appropriate for inpatient admission only. Plan of care upon discharge will need to be reassessed to avoid potential outpatient hypo/hyperglycemia. Thank you.
[2017-10-27] MEDS: INSULIN REGULAR 250 UNITS in SODIUM CHLORIDE 0.9% 250ML 250 ML IV SCH ×9 (10:48→18:48)
[2017-10-27] MEDS ORDERED: AZITHROMYCIN 250 MG TAB PO ONE (11:00)
[2017-10-27] MEDS ORDERED: PIPERACILL/TAZOBAC IV 3.375 GM in D5W 100 ML IV ONE (11:00)
[2017-10-27] MEDS ORDERED: INSULIN ASPART 100 UNITS/ML 3 ML PEN SC SCH (11:00)
[2017-10-27] MEDS: SODIUM CHLORIDE 0.9% 1000ML 1,000 ML IV SCH (12:41)
[2017-10-27] MEDS: INSULIN ASPART 100 UNITS/ML 3 ML PEN SC SCH ×3 (12:44→20:54)
--- NOTE | 2017-10-27 12:51 | Pharmacy Progress Note ---
Pharmacy Abx Initial Consult Date of Service Oct 27, 2017. Pharmacy Dosing Scope Date of Consult: 10/27/17 Consultation requested by: Dr. Benson Pharmacy is consulted to initiate Vancomycin & Zosyn IV/PO dosing therapy, order appropriate labs and adjust drug dose/frequency. Subjective The patient is a 52 year old female admitted on Oct 27, 2017 at 09:04. Objective Height (Feet): 4 Height (Inches): 10.00 Weight (Kilograms): 59.000 (BMI 27.2) Vital Signs (Past 12Hrs) Vital Signs Past 12 Hours Date Time Temp Pulse Resp B/P (MAP) Pulse Ox O2 Delivery O2 Flow Rate FiO2 10/27/17 10:19 36.9 104 22 112/57 94 Nasal Cannula 4.0 10/27/17 09:36 99 24 121/59 92 10/27/17 09:06 101 10/27/17 08:55 101 24 128/65 93 Nasal Cannula 4.0 10/27/17 07:25 94 24 117/51 91 Nasal Cannula 4.0 10/27/17 06:25 62 24 118/65 99 Nebulizer Trach Collar 10/27/17 06:05 51 20 98 Nasal Cannula 4.0 10/27/17 05:56 60 10/27/17 05:01 37.4 69 18 104/67 98 Nasal Cannula 4.0 Lab Results (24Hrs) Laboratory Tests (24 Hours) Test 10/27/17 05:32 White Blood Count 11.06 K/uL (4.8-10.8) H Red Blood Count 3.56 M/uL (4.2-5.4) L Hemoglobin 11.6 g/dL (12.0-16.0) L Hematocrit 35.7 % (37-47) L Mean Corpuscular Volume 100.3 fL (80-100) H Mean Corpuscular Hemoglobin 32.6 pg (25-34) Mean Corpuscular Hemoglobin Concent 32.5 g/dl (32-36) Platelet Count 190 K/uL (130-400) Mean Platelet Volume 10.7 fL (7.4-10.4) H Neutrophils (%) (Auto) 85.0 % Lymphocytes (%) (Auto) 7.2 % Monocytes (%) (Auto) 7.1 % Eosinophils (%) (Auto) 0.0 % Basophils (%) (Auto) 0.3 % Neutrophils # (Auto) 9.40 K/uL (1.4-6.5) H Lymphocytes # (Auto) 0.80 K/uL (1.2-3.4) L Monocytes # (Auto) 0.79 K/uL (0.11-0.59) H Eosinophils # (Auto) 0.00 K/uL (0-0.5) Basophils # (Auto) 0.03 K/uL (0-0.2) Procalcitonin 0.31 ng/ml (0-0.5) Total Creatine Kinase 29 U/L (26-192) Item Value Date Time Creatinine 0.88 mg/dl 10/27/17 0532 Estimated GFR () 86.9 10/27/17 0532 Micro Results Date/Time Source Procedure Growth Status 10/27/17 05:36 Blood Blood Culture Pending Received 10/27/17 05:32 Blood Blood Culture Pending Received Risk Factors for Resistance * Immunocompromised (chronic steroid therapy) * History of infection with a multidrug-resistant organism: MRSA Right lung 2017 * Antimicrobial use within the last 90 days Bactrim/Doxy/Augmentin Assessment & Plan Assessment 52 year old female with history of MRSA & E coli pneumonia presents with worsening productive cough and fever to 103 at home. Chest xray shows bilateral lower lobe pneumonia. Plan Vancomycin and Zosyn for treatment of pneumonia Vancomycin IV * Estimated P'kinetic parameters: Vd 0.7 L/kg; Beau 0.077 hr-1; T1/2 ~9 hrs; CrCl 86.9 * Loading dose: 1000 mg (~17 mg/kg) * Maintenance dose: 750 mg IV (~13 mg/kg) every 12 hours * Goal trough level for pneumonia : 15 to 20 mcg/mL * Trough level ordered for 10/29/17 * Starting maintenance dose early because patient did not receive a full loading dose. * Have previous consult information (04/2017). Patient had new onset SOM and a supratherapeutic level with 1gm q12h. Used that information to guide my dosing choice. Piperacillin/tazobactam * 3.375 g bolus administered over 30 minutes, then 3.375 g IV extended infusion every 8 hours for CrCl greater than 20 mL/min OR every 12 hours for CrCl 20 mL/ min or less and dialysis. Pharmacy will continue to follow and will adjust dose/frequency as necessary. Thank you.
[2017-10-27] MEDS: CALCIUM 600MG + VIT D 400 IU TAB PO SCH ×2 (13:58→20:52)
[2017-10-27] MEDS: ENOXAPARIN 40 MG/0.4 ML SYR SC SCH (13:58)
[2017-10-27] MEDS: ALBUTEROL 0.083% NEBU SOLN 3 ML VIAL INH SCH ×2 (14:18→19:15)
[2017-10-27] MEDS: ACETYLCYSTEINE INHAL SOLN 10% 4 ML INH SCH ×2 (14:18→19:10)
[2017-10-27] MEDS: PIPERACILL/TAZOBAC IV 3.375 GM in DEXTROSE 5% 100ML 100 ML IV SCH (15:37)
[2017-10-27] MEDS: VANCOMYCIN IV 750 MG in SODIUM CHLORIDE 0.9% 250ML 250 ML IV SCH (17:00)
--- NOTE | 2017-10-27 17:20 | Pulmonary Consultation ---
History General Date of Service: Oct 27, 2017. Stated Complaint: Pneumonia HPI Dear Dr. Benson: Thank you for the kind referral of Ms. Early to pulmonary service. 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 The patient herself when I ask her she denies any increased shortness of breath, no increased cough or sputum production, no fever, does feel occasional chest pain mainly substernal extending to the epigastric area, no heartburn reported with it. The mother was at the bedside and provided most of the valuable information. The patient did not have any diarrhea, did not have any episodes of vomiting, no abdominal pain was reported the patient is ambulatory and takes care of herself although she lives in retirement. The patient was sent to our institution due to fever that was reported at 104 and increased secretions via trach. The patient did not have any fever at our institution and herself denies any increased secretions through her trach. She seems very well educated about tracheostomy tube care. The rest of her review of system was limited and unremarkable. Historian: patient, parent, other (Records.) Review of Systems Constitutional: reports: no symptoms, other (Reported fever at the retirement.) Eyes: denies: no symptoms, as stated in HPI, eye pain, tearing, itching, redness, discharge, double vision, visual changes, blurred vision, photophobia, other ENT: reports: other (No pain at the tracheostomy site. She is using trach plugged for phonation.), denies: no symptoms, as stated in HPI, ear pain, ear discharge, loss of hearing, tinnitus, nasal pain, nasal congestion, rhinorrhea, epistaxis, sore throat, stridor, throat swelling, mouth pain, mouth swelling, dental pain, gum swelling Cardiovascular: denies: no symptoms, as stated in HPI, chest pain, chest pressure, chest tightness, diaphoresis, edema, intermittent claudication, orthopnea, palpitations, syncope, other Respiratory: reports: cough Gastrointestinal: denies: no symptoms, as stated in HPI, abdominal pain, constipation, diarrhea, nausea, vomiting, hematemesis, hematochezia, hemorrhoids , anorexia, appetite changes, stool changes, flatulence, belching, food intolerance, jaundice, other Genitourinary - Female: denies: no symptoms, as stated in HPI, dysmenorrhea, dysuria, hematuria, hesitancy, menorrhagia, metrorrhagia, , rash, urinary frequency, urinary incontinence, urinary retention, urinary urgency, vaginal bleeding, vaginal discharge, vaginal itching, vulvadynia, other Musculoskeletal: denies: no symptoms, as stated in HPI, arthralgias, neck pain , back pain, joint pain, joint swelling, deformity, myalgias, muscle spasms, other Neurologic: reports: other (Asymptomatic apart from her trisomy 21) Allergic / Immunologic: denies: no symptoms, as stated in HPI, eczema, environmental allergies, frequent infections, hives, multiple food allergies, seasonal allergies, pet sensitivities, poor healing, prolonged convalescence, other Past Medical History Past Medical History: As above in the first section. Past Medical History: asthma Family History Diabetes mellitus FH: CAD (coronary artery disease) FHx: Down syndrome Myocardial infarction Social History Hx Tobacco Use In Past Year?: No Smoking Status: Never Smoker Marital status: single Housing status: assisted living Occupational Status: disabled Immunizations History of Influenza Vaccine: N/A Influenza Vaccine Date: Dec 18, 2005 History of Tetanus Vaccine?: Unknown Tetanus Immunization Date: May 22, 2001 History of Pneumococcal: Yes Pneumococcal Date: August 15, 2012 History of Hepatitis B Vaccine: No History of MDRO History of MDRO: No Type of MDRO: MRSA Allergies Coded Allergies: Cephalosporins (Verified Allergy, Intermediate, rash per mother, 10/27/17) TOLERATED ZOSYN IN PAST ADMISSION AND 05/17/15 Cefaclor (Verified Allergy, Unknown, HIVES, 10/27/17) TOLERATED ZOSYN IN PAST ADMISSION AND 05/17/15 Sertraline (Verified Allergy, Unknown, INTOLERANCE, 10/27/17) Current Medications Reported Home Medications Medications Dose Route/Sig Max Daily Dose Days Date Category Dose Instructions Prednisone 10 Mg Tab 10 Mg PO UD 10/27/17 Reported take 4 tabs daily for 2 days,3 tabs for 2 days,2 tabs for 2 days,1 tab for 2 days..start 10/25/17 Augmentin 875-125 mg (Amoxicillin & Pot Clavulanate) 1 Tab Tab 1 Tab PO Q12 10/27/17 Reported last dose to be 11/05/17 @ 0800 Zithromax (Azithromycin) 250 Mg Tab 250 Mg PO DAILY 10/27/17 Reported take 2 tabs for 1 day then 1 tab daily for 4 more days Prednisone 10 Mg Tab 10 Mg PO DAILY 10/27/17 Reported Thick-It (Thickened Products) 1 Liq Liq 10/27/17 Reported add to all liquids to achieve nectar like consistency Diflucan (Fluconazole) 150 Mg Tab 150 Mg PO UD PRN 10/27/17 Reported give one time, may repeat in a week if needed Celexa (Citalopram Hydrobromide) 40 Mg Tab 40 Mg PO DAILY 10/27/17 Reported Tylenol (Acetaminophen) 325 Mg Tab 650 Mg PO Q4 PRN 10/27/17 Reported Tylenol (Acetaminophen) 325 Mg Tab 650 Mg PO Q4 PRN 10/27/17 Reported Basaglar Kwikpen (Insulin Glargine) 100 Unit/Ml Inj NEEDED 07/24/17 Reported 25-30 units Acetylcysteine 1 Ml Inha 4 Ml NEB TID 07/24/17 Reported [Percussion Vest] TID 06/17/17 Reported USE WITH SETTING 14 FOR 20 MINUTES Oxygen Gas Liter UD 06/17/17 Reported 2 LITERS VIA N/C OR TRACH MASK AT REST 4 LITERS WITH EXERTION Breo Ellipta (Fluticasone Furoate-Vilanterol) 1 Inh Inh 1 Puff PO DAILY 06/17/17 Reported Insta-Glucose (Dextrose (Diabetic Use)) 77.4 % Gel 1 Tube PO DIRECTED PRN 05/05/17 Reported novoLOG INSULIN PUMP (Insulin Aspart) 1 Ea Inj N/A UD 05/05/17 Reported USE IN THE INSULIN PUMP DIRECTED Vitamin D 09528 Unit (Ergocalciferol) 50,000 Unit Cap 50,000 Unit PO WK 05/05/17 Reported ONCE EVERY 7 DAYS (THURSDAYS) Therems M (Multiple Vitamins W/ Minerals) 1 Tab Tab 1 Tab PO QAM 05/05/17 Reported Phos-Flur Ortho Defense (Sodium Fluoride (Dental)) 0.044 % Mary Anne 0.5 Oz PO HS 05/05/17 Reported RINSE WITH 1\2 OUNCE BY MOUTH Proventil 0.083% 2.5MG/3ML (Albuterol Sulf) 2.5 Mg/3 Ml Nebu 2.5 Mg TR TID 05/05/17 Reported USE VIA TRACH MASK Sodium Chloride 0.9% (Sodium Chloride (Gu Irrigant)) 0.9 % Mary Anne DAILY 02/19/17 Reported USE TO CLEAN TRACH TUBE DAILY. Dex4 (Glucose-Vitamin C) 1 Chw Chw 1 Tab PO DAILY PRN 02/19/17 Reported Anti-Fungal (Clotrimazole (Topical)) 1 % Cre 1 Appln TOP TID PRN 02/19/17 Reported APPLY 3 TIMES DAILY NEEDED FOR RASH AROUND TRACH Prilosec (Omeprazole) 20 Mg Capcr 20 Mg PO QAM 02/19/17 Reported Singulair (Montelukast Sodium) 10 Mg Tab 10 Mg PO HS 02/19/17 Reported Levothyroxine Sodium 150 Mcg Tab 150 Mcg PO QAM 90 02/19/17 Reported Danielle (Fexofenadine Hcl) 180 Mg Tab 180 Mg PO HS 02/19/17 Reported Oyster Shell Calcium + D (Calcium Carbonate-Cholecalcife) 1 Tab Tab 1 Tab PO TID 02/19/17 Reported MORNING, AFTERNOON AND BEDTIME Ventolin Hfa (Albuterol) 200 Puffs/06325 Mcg Aers 2 Puffs INH QID PRN 11/15/16 Reported Lipitor (Atorvastatin Calcium) 10 Mg Tab 10 Mg PO HS 09/19/16 Reported Phenergan (Promethazine HCl) 12.5 Mg Tab 12.5 Mg PO Q8 PRN 05/16/15 Reported Lasix (Furosemide) 20 Mg Tab 20 Mg PO DAILY PRN 12/13/12 Reported WEIGHT GAIN > 3LB IN 24HRS AND WITNESSED EDEMA/SOB. HOLD FOR 3LB WEIGHT GAIN AND NO SOB OR EDEMA Glucagon Emergency Kit (Glucagon) 1 Mg Kit 1 Mg IM PRN 08/07/12 Reported PRN FOR LOW BLOOD SUGAR EPISODES Physical Physical Exam Vital Signs: Date Time Temp Pulse Resp B/P (MAP) Pulse Ox O2 Delivery O2 Flow Rate FiO2 10/27/17 15:25 37.0 82 18 112/59 (76) 95 Nasal Cannula 4.0 10/27/17 14:21 75 20 96 Nasal Cannula 4.0 10/27/17 10:19 36.9 104 22 112/57 94 Nasal Cannula 4.0 10/27/17 09:36 99 24 121/59 92 10/27/17 09:06 101 10/27/17 08:55 101 24 128/65 93 Nasal Cannula 4.0 10/27/17 07:25 94 24 117/51 91 Nasal Cannula 4.0 10/27/17 06:25 62 24 118/65 99 Nebulizer Trach Collar 10/27/17 06:05 51 20 98 Nasal Cannula 4.0 10/27/17 05:56 60 10/27/17 05:01 37.4 69 18 104/67 98 Nasal Cannula 4.0 General Appearance: NO APPARENT DISTRESS Eyes: EOMI ENT: NORMAL THROAT EXAM Neck: TRACHEA MIDLINE, other (Antonio middle trach is in the middle. No erythema or irritation. No visual secretions. No stridor.) Respiratory: BREATH SOUNDS NORMAL Cardiovasular: REGULAR RATE/RHYTHM, NORMAL S1S2, NO M/G/R, systolic murmur Abdomen: NON TENDER, NO MASSES, NO GUARDING Upper Extremities: NO EDEMA Lower Extremities: NO EDEMA Neuro: ALERT, NORMAL MOTOR EXAM Psychiatric: flat affect Diagnostics Labs Results Past 24 Hours Test 10/27/17 05:32 10/27/17 05:38 10/27/17 05:50 10/27/17 10:16 Range/Units White Blood Count 11.06 4.8-10.8 K/uL Red Blood Count 3.56 4.2-5.4 M/uL Hemoglobin 11.6 12.0-16.0 g/dL Hematocrit 35.7 37-47 % Mean Corpuscular Volume 100.3 80-100 fL Mean Corpuscular Hemoglobin 32.6 25-34 pg Mean Corpuscular Hemoglobin Concent 32.5 32-36 g/dl Platelet Count 190 130-400 K/uL Mean Platelet Volume 10.7 7.4-10.4 fL Neutrophils (%) (Auto) 85.0 % Lymphocytes (%) (Auto) 7.2 % Monocytes (%) (Auto) 7.1 % Eosinophils (%) (Auto) 0.0 % Basophils (%) (Auto) 0.3 % Neutrophils # (Auto) 9.40 1.4-6.5 K/uL Lymphocytes # (Auto) 0.80 1.2-3.4 K/uL Monocytes # (Auto) 0.79 0.11-0.59 K/uL Eosinophils # (Auto) 0.00 0-0.5 K/uL Basophils # (Auto) 0.03 0-0.2 K/uL RDW Standard Deviation 52.8 36.4-46.3 fL RDW Coefficient of Variation 14.3 11.5-14.5 % Immature Granulocyte % (Auto) 0.4 % Immature Granulocyte # (Auto) 0.04 0.00-0.02 K/uL Prothrombin Time 10.3 9.0-12.0 SECONDS Prothromb Time International Ratio 1.0 0.9-1.1 Sodium Level 135 136-145 mmol/L Potassium Level 4.1 3.5-5.1 mmol/L Chloride Level 101 98-107 mmol/L Carbon Dioxide Level 29 21-32 mmol/L Anion Gap 5.0 3-11 mmol/L Blood Urea Nitrogen 21 7-18 mg/dl Creatinine 0.88 0.60-1.20 mg/dl Estimated GFR () 86.9 Estimated GFR (Non- 75.0 BUN/Creatinine Ratio 24.1 10-20 Random Glucose 193 70-99 mg/dl Calcium Level 8.4 8.5-10.1 mg/dl Magnesium Level 1.7 1.8-2.4 mg/dl Total Bilirubin 0.2 0.2-1 mg/dl Direct Bilirubin < 0.1 0-0.2 mg/dl Aspartate Amino Transf (AST/SGOT) 21 15-37 U/L Alanine Aminotransferase (ALT/SGPT) 50 12-78 U/L Alkaline Phosphatase 168 45-117 U/L Total Creatine Kinase 29 26-192 U/L Creatine Kinase MB < 1.0 0.5-3.6 ng/ml Creatine Kinase MB Ratio 0-3.0 Troponin I < 0.015 0-0.045 ng/ml Total Protein 6.5 6.4-8.2 gm/dl Albumin 2.6 3.4-5.0 gm/dl Procalcitonin 0.31 0-0.5 ng/ml Bedside Lactic Acid Venous 0.79 0.90-1.70 mmol/L Urine Color YELLOW Urine Appearance CLEAR CLEAR Urine pH 5.0 4.5-7.5 Urine Specific [place] 1.018 1.000-1.030 Urine Protein NEG NEG Urine Glucose (UA) NEG NEG Urine Ketones NEG NEG Urine Occult Blood NEG NEG Urine Nitrite NEG NEG Urine Bilirubin NEG NEG Urine Urobilinogen NEG NEG Urine Leukocyte Esterase TRACE NEG Urine WBC (Auto) 1-5 0-5 /hpf Urine RBC (Auto) 0-4 0-4 /hpf Urine Hyaline Casts (Auto) 0 0-5 /lpf Urine Epithelial Cells (Auto) 5-10 0-5 /lpf Urine Bacteria (Auto) NEG NEG Bedside Glucose 480 70-90 mg/dl Test 10/27/17 10:17 10/27/17 11:38 10/27/17 11:40 10/27/17 12:43 Range/Units Bedside Glucose 459 467 490 500 70-90 mg/dl Test 10/27/17 12:45 10/27/17 12:56 10/27/17 13:48 10/27/17 13:50 Range/Units Bedside Glucose 536 542 546 70-90 mg/dl Random Glucose 545 70-99 mg/dl Beta-Hydroxybutyric Acid 1.52 0.2-2.81 mg/dL Test 10/27/17 14:43 10/27/17 14:45 10/27/17 15:41 10/27/17 16:40 Range/Units Bedside Glucose 493 496 452 410 70-90 mg/dl Microbiology Results 10/27/17 Blood Culture, Received Pending 10/27/17 Blood Culture, Received Pending 10/27/17 MRSA DNA Surveillance Screen - Final, Complete Specimen Negative for MRSA by DNA Probe Diagnostic Radiology Chest x-ray was reviewed on this admission and compared with September 19, 2017 which showed exactly the same appearance. The patient does have bibasilar atelectasis which has been chronic. Metal trach tube also in good position. Previous CAT scan of the chest done prior to this 2 admissions showed bibasilar atelectasis. And transposition of the descending aorta to the right. Cardiomegaly also was noted. Impression Assessment and Plan 1. Recurrent aspiration, likely chemical rather than infectious. 2. Although the report from radiology mentioned bibasilar infiltrate, I did not appreciate any changes compared to September 19, 2017. 3. Obstructive sleep apnea on BiPAP. 4. Chronic respiratory failure with Antonio tracheostomy tube due to extrinsic compression of the trachea by overriding aorta, placed in 1993.. 5. Down syndrome. 6. Hypothyroidism. 7. Transposition of the aorta. 8. History of seizure disorder. 9. Diabetes mellitus on insulin pump. Plan: 1. De-escalate the antibiotics in the next 24-48 hours if the patient does not show any signs of ongoing infectious process. Augmentin twice daily should be adequate. Treat only for 7 days. 2. I did not appreciate new infiltrate or worsening infiltrate on the chest x- ray. 3. Continue with Antonio metal tube care. 4. BiPAP at night. 5. Trach plugged for phonation. 6. Placido prednisone as tolerated. The patient has poorly controlled diabetes with blood glucose level currently in the range of 400. 7. Anticipate discharge to the retirement soon. Thank you 7. 6.
[2017-10-27 18:33] LABS: CALCIUM 8.6 mg/dl (8.5-10.1); CREATININE 1.24 mg/dl (0.60-1.20); POTASSIUM 4.4 mmol/L (3.5-5.1)
[2017-10-27] MEDS: FEXOFENADINE HCL 180 MG TAB PO SCH (20:52)
[2017-10-27] MEDS: MONTELUKAST SOD 10 MG TAB PO SCH (20:52)
[2017-10-27] MEDS: ATORVASTATIN 10 MG TAB PO SCH (20:52)
[2017-10-28] VITALS (9 sets, daily range): BP systolic 103–146; BP diastolic 63–79; PULSE 49–72; TEMP 36.5–37; O2SAT 91–97; BMI 27.4
[2017-10-28] MEDS: PIPERACILL/TAZOBAC IV 3.375 GM in DEXTROSE 5% 100ML 100 ML IV SCH ×3 (00:12→16:28)
[2017-10-28] MEDS: SODIUM CHLORIDE 0.9% 1000ML 1,000 ML IV SCH (01:04)
[2017-10-28] MEDS: ALBUTEROL 0.083% NEBU SOLN 3 ML VIAL INH SCH ×4 (01:41→19:21)
[2017-10-28] MEDS: LEVOTHYROXINE 150 MCG TAB PO SCH (05:20)
[2017-10-28] MEDS: VANCOMYCIN IV 750 MG in SODIUM CHLORIDE 0.9% 250ML 250 ML IV SCH ×2 (05:21→16:28)
[2017-10-28 05:42] LABS: BASO % 0.1 %; BASO ABS # 0.01 K/uL (0-0.2); HEMATOCRIT 33.4 % (37-47); HEMOGLOBIN 10.8 g/dL (12.0-16.0); IG# 0.05 K/uL (0.00-0.02); LYMPH ABS # 0.92 K/uL (1.2-3.4); MEAN CELL VOLUME 101.2 fL (80-100); MEAN CORPUSCULAR HEMOGLOBIN 32.7 pg (25-34); MEAN CORPUSCULAR HGB CONC 32.3 g/dl (32-36); MEAN PLATELET VOLUME 9.8 fL (7.4-10.4); MONO % 6.2 %; MONO ABS # 0.81 K/uL (0.11-0.59); NEUT % 86.3 %; NEUT ABS # 11.32 K/uL (1.4-6.5); PLATELET COUNT 173 K/uL (130-400); RED CELL DISTRIBUTION WIDTH CV 14.6 % (11.5-14.5); RED CELL DISTRIBUTION WIDTH SD 54.5 fL (36.4-46.3); WHITE BLOOD COUNT 13.11 K/uL (4.8-10.8)
[2017-10-28 06:14] LABS: CALCIUM 8.7 mg/dl (8.5-10.1); CREATININE 0.81 mg/dl (0.60-1.20); POTASSIUM 4.2 mmol/L (3.5-5.1)
[2017-10-28] MEDS: ACETYLCYSTEINE INHAL SOLN 10% 4 ML INH SCH ×3 (07:02→19:24)
[2017-10-28 07:16] LABS: HEMOGLOBIN A1C 10.2 % (4.5-5.6)
[2017-10-28] MEDS: PANTOprazole SOD 40 MG TAB PO SCH (08:22)
[2017-10-28] MEDS: CALCIUM 600MG + VIT D 400 IU TAB PO SCH ×3 (08:22→21:26)
[2017-10-28] MEDS: AZITHROMYCIN 250 MG TAB PO SCH (08:22)
[2017-10-28] MEDS: CITALOPRAM 40 MG TAB PO SCH (08:23)
[2017-10-28] MEDS: CEROVITE ADV FORMULA TAB PO SCH (08:23)
[2017-10-28] MEDS: INSULIN ASPART 100 UNITS/ML 3 ML PEN SC SCH ×4 (08:26→22:18)
--- NOTE | 2017-10-28 11:21 | Hospitalist Progress Note ---
Hospitalist Progress Note Date of Service Oct 28, 2017. Subjective Pt evaluation today including: conversation w/ patient, conversation w/ family (Spoke with mother on the phone) Voiding: no voiding problems Patient doing much better today. She reports cough with sputum, but remains afebrile. She denies chest pain or shortness of breath. Denies abdominal pain. She is tolerating p.o. well. Telemetry reveals sinus bradycardia in the mid 40s to mid 60s for the rate All Other Systems: Reviewed and Negative Objective Vital Signs Date Time Temp Pulse Resp B/P (MAP) Pulse Ox O2 Delivery O2 Flow Rate FiO2 10/28/17 11:05 36.6 72 16 103/64 (77) 91 10/28/17 08:04 36.5 49 16 110/69 (83) 95 10/28/17 08:00 Nasal Cannula 2.0 10/28/17 07:03 50 16 95 Nasal Cannula 3.0 10/28/17 04:33 36.5 57 16 126/63 (84) 95 Trach Collar 10/28/17 01:41 63 20 97 Nasal Cannula 3.0 10/27/17 23:26 37.0 67 19 130/69 (89) 95 Trach Collar 4.0 10/27/17 20:00 Nasal Cannula 3.0 10/27/17 19:15 66 20 96 Nasal Cannula 3.0 10/27/17 19:00 36.5 71 16 106/55 (72) 94 Nasal Cannula 4.0 10/27/17 15:25 37.0 82 18 112/59 (76) 95 Nasal Cannula 4.0 10/27/17 14:21 75 20 96 Nasal Cannula 4.0 Physical Exam General Appearance: no apparent distress, + pertinent finding (Dysmorphic features) Eyes: normal inspection, EOMI, sclerae normal ENT: hearing grossly normal, pharynx normal Neck: trachea midline Respiratory/Chest: no respiratory distress, no accessory muscle use, + pertinent finding (Tracheostomy in place, decreased breath sounds with some rhonchi at the bases, otherwise with scattered expiratory wheezes but improved air movement from yesterday) Cardiovascular: regular rate, rhythm, no edema, + systolic murmur Abdomen: normal bowel sounds, non tender, soft Extremities: non-tender, normal inspection, no pedal edema, no calf tenderness Neurologic/Psychiatric: alert, normal mood/affect Skin: normal color, warm/dry, no rash, + pertinent finding (Right anterior chest wall with Port-A-Cath in place that is accessed, no surrounding erythema) Laboratory Results Last 24 Hours Test 10/27/17 11:38 10/27/17 11:40 10/27/17 12:43 10/27/17 12:45 Bedside Glucose 467 mg/dl 490 mg/dl 500 mg/dl 536 mg/dl Test 10/27/17 12:56 10/27/17 13:48 10/27/17 13:50 10/27/17 14:43 Random Glucose 545 mg/dl Beta-Hydroxybutyric Acid 1.52 mg/dL Bedside Glucose 542 mg/dl 546 mg/dl 493 mg/dl Test 10/27/17 14:45 10/27/17 15:41 10/27/17 16:40 10/27/17 17:44 Bedside Glucose 496 mg/dl 452 mg/dl 410 mg/dl 301 mg/dl Test 10/27/17 18:01 10/27/17 18:42 10/27/17 19:50 10/27/17 20:43 Sodium Level 138 mmol/L Potassium Level 4.4 mmol/L Chloride Level 102 mmol/L Carbon Dioxide Level 29 mmol/L Anion Gap 7.0 mmol/L Blood Urea Nitrogen 23 mg/dl Creatinine 1.24 mg/dl Est Creatinine Clear Calc Drug Dose 39.9 ml/min Estimated GFR () 57.4 Estimated GFR (Non- 49.6 BUN/Creatinine Ratio 18.7 Random Glucose 314 mg/dl Calcium Level 8.6 mg/dl Beta-Hydroxybutyric Acid 0.73 mg/dL Bedside Glucose 308 mg/dl 299 mg/dl 361 mg/dl Test 10/27/17 21:45 10/27/17 22:48 10/27/17 23:46 10/28/17 00:03 Bedside Glucose 262 mg/dl 211 mg/dl 125 mg/dl 108 mg/dl Test 10/28/17 00:19 10/28/17 00:32 10/28/17 00:44 10/28/17 01:03 Bedside Glucose 149 mg/dl 129 mg/dl 139 mg/dl 204 mg/dl Test 10/28/17 02:01 10/28/17 03:00 10/28/17 04:23 10/28/17 05:30 Bedside Glucose 153 mg/dl 167 mg/dl 193 mg/dl White Blood Count 13.11 K/uL Red Blood Count 3.30 M/uL Hemoglobin 10.8 g/dL Hematocrit 33.4 % Mean Corpuscular Volume 101.2 fL Mean Corpuscular Hemoglobin 32.7 pg Mean Corpuscular Hemoglobin Concent 32.3 g/dl Platelet Count 173 K/uL Mean Platelet Volume 9.8 fL Neutrophils (%) (Auto) 86.3 % Lymphocytes (%) (Auto) 7.0 % Monocytes (%) (Auto) 6.2 % Eosinophils (%) (Auto) 0.0 % Basophils (%) (Auto) 0.1 % Neutrophils # (Auto) 11.32 K/uL Lymphocytes # (Auto) 0.92 K/uL Monocytes # (Auto) 0.81 K/uL Eosinophils # (Auto) 0.00 K/uL Basophils # (Auto) 0.01 K/uL RDW Standard Deviation 54.5 fL RDW Coefficient of Variation 14.6 % Immature Granulocyte % (Auto) 0.4 % Immature Granulocyte # (Auto) 0.05 K/uL Sodium Level 139 mmol/L Potassium Level 4.2 mmol/L Chloride Level 105 mmol/L Carbon Dioxide Level 28 mmol/L Anion Gap 6.0 mmol/L Blood Urea Nitrogen 17 mg/dl Creatinine 0.81 mg/dl Est Creatinine Clear Calc Drug Dose 61.0 ml/min Estimated GFR () 96.1 Estimated GFR (Non- 82.9 BUN/Creatinine Ratio 20.8 Random Glucose 117 mg/dl Estimated Average Glucose 246 mg/dl Hemoglobin A1c 10.2 % Calcium Level 8.7 mg/dl Magnesium Level 1.9 mg/dl Test 10/28/17 05:34 10/28/17 06:36 10/28/17 07:33 10/28/17 08:31 Bedside Glucose 163 mg/dl 139 mg/dl 137 mg/dl 175 mg/dl Test 10/28/17 09:35 10/28/17 10:35 Bedside Glucose 251 mg/dl 272 mg/dl Assessment and Plan This patient is a very pleasant 52-year-old female with a history of Down syndrome, DM 1 on insulin pump, seizure disorder, chronic hypoxic respiratory failure with tracheal stenosis and tracheostomy, CAMILLA on BiPAP, aspiration pneumonias, hypothyroidism, hyperlipidemia, depression, seasonal allergies, GERD , anemia of chronic disease, history of transposition of the great vessels status post aortic relocation surgery, pulmonary HTN, right-sided heart failure/ cor pulmonale, and PFO, who presents 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 She is typically on various antibiotics presumably for prophylaxis at home to include Bactrim, doxycycline, and daily Augmentin most recently. She had her Augmentin increase to twice daily and was prescribed azithromycin the day prior to admission, as well as a burst of prednisone with planned taper. When she spiked a fever and complained of a headache and was more lethargic, she was brought into the ER. She was given a 1 hour nebulizer treatment and had some improvement in her wheezing, found to have a bilateral lower lobe pneumonia on chest x-ray, and was given IV Levaquin as well as IV Solu-Medrol. Bilateral lower lobe pneumonia/fever/tracheal stenosis with tracheostomy-sepsis not POA, however did have a fever at home prior to arrival. Has history of recurrent aspiration and this very well could be an aspiration pneumonia. She was not responding to Augmentin at home and she has a history of MRSA and E. coli pneumonias with E. coli being resistant to Levaquin in the past. Significantly improved today. Remains afebrile -Continue telemetry monitoring -Continue supplemental O2 continuously to keep pulse ox greater than 92%- chronically on 2-4 L nasal cannula -Continue IV Zosyn and IV vancomycin to cover for history of resistant E. coli and MRSA both growing in sputum, finish out 5 day course of azithromycin to cover for atypicals -Follow blood cultures, obtain sputum culture from the trach no growth so far -Consult pulmonology for any further [id number] aspiration pneumonitis and recommends switching to Augmentin for 7 day course- however I do not believe this will be sufficient given that she did respond to Augmentin prior to admission -Continue prednisone 40 mg daily and taper down over 1-2 weeks-caution with history of significant hyperglycemia seems to be improving now -Continue recommended speech therapy diet from previously-mechanical soft nectar thick liquids -Follow chest x-ray to resolution -Continue albuterol nebulizers scheduled, Mucomyst nebs scheduled, chest PT 3 times daily -Follow CBC -Okay to DC IV fluids DM 1, uncontrolled, known brittle diabetic on insulin pump-with history of hypoglycemia and hyperglycemia. Last hemoglobin A1c 8.8% in 05/2017. Follows with endocrinology as an outpatient. No evidence of DKA here. Had significant hyperglycemia in the 500s on the first day of admission. This is now improved on insulin drip. Hemoglobin A1c here is significantly elevated at 10.2% -Plan to remove her from her insulin pump while admitted -Remains on insulin drip and plan to transition either back to her insulin pump or basal bolus as per pharmacy -Consult glycemic pharmacy management-appreciated -Watch electrolytes and follow PRP Chronic hypoxic respiratory failure/CAMILLA on BiPAP/tracheal stenosis with tracheostomy/chronic bronchitis- -Continue supplemental O2 and BiPAP at night as per home -Trach care -Continue Breo ellipta Down syndrome-noted -Supportive care Seizure disorder-noted, with hypoglycemic seizures, not on antiepileptic drugs -Observe and manage glucose appropriately as above Hypothyroidism-last TSH 0.996 in 05/2017, compensated -Continue home levothyroxine dose Hyperlipidemia-stable -Continue statin Major depressive disorder-stable -Continue SSRI Seasonal allergies-stable -Continue Singulair GERD-stable -Continue PPI Anemia of chronic disease-hemoglobin stable from previous at 10.8, is macrocytic. Previous iron studies showed anemia of chronic disease, B12 and folate were normal in the last 6 months. -Follow CBC History of transposition of the great vessels status post aortic relocation surgery/Pulmonary HTN/Right-sided heart failure/cor pulmonale/PFO-stable at this time -Takes Lasix as needed-hold on this for now while hydrating -Watch volume status -Discontinuing IV fluids today Prophylaxis-Lovenox SQ, SCDs Disposition-continue telemetry, but doing well, may be able to be discharged back to home in 1-2 days DNR/DNI-POLST form filled out during admission in 05/2017 and will be scanned into chart if it is not already
[2017-10-28] MEDS: INSULIN REGULAR 250 UNITS in SODIUM CHLORIDE 0.9% 250ML 250 ML IV SCH (11:47)
--- NOTE | 2017-10-28 12:22 | Pharmacy Progress Note ---
Pharmacy Glycemic Short Note 2 Date of Service Oct 28, 2017. 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 SQ basal/bolus therapy has failed on multiple attempts in the past resulting in both severe highs and lows. * Will continue to manage Valorie using the strategy that has worked well in the past, ie IV insulin infusion per protocol combined w/ Novolog SQ coverage at meal-times. IV bolus doses of Regular insulin are sometimes utilized during the day to address severe hyperglycemia if this occurs. PLAN FOR INPATIENT GLYCEMIC CONTROL: * Hold insulin pump until closer to discharge * Continue IV insulin infusion per protocol, goal range 150-250 (wide goal chosen due to risk for severe lows as drip gets titrated upwards while and shortly after eating) * Prandial insulin * NovoLog SQ per carb ratio of 1 unit per 8 grams CHO consumed PLAN FOR DISCHARGE: * Resume Novolog pump per prior settings. Given worsening A1c, she may require adjustments to pump settings.
[2017-10-28] MEDS: ENOXAPARIN 40 MG/0.4 ML SYR SC SCH (13:37)
--- NOTE | 2017-10-28 15:21 | PULMONARY PROGRESS NOTE ---
DATE: 10/28/2017 TIME: 2:50 p.m. SUBJECTIVE: The patient was seen in room 212. Her mother and sister were present during this evaluation. The patient indicates she is feeling better. She is not a good historian, however. Her family thought that they seem better. She resides in a [facility]. She was sent to the hospital yesterday with a history of fever. Reportedly, it reached as high as 104 degrees. Reportedly, she had increased secretions. She has a chronic tracheostomy. The patient has a history of Down syndrome. She did have transposition of the descending aorta to the right. She has a history of sleep apnea. OBJECTIVE: GENERAL: The patient appears comfortable. She denied shortness of breath. VITAL SIGNS: Temperature is 36.6. She has not had any significant fever, except for the 37.4 degrees noted when she first came to the hospital. Heart rate is 72 per minute. Rhythm is regular. Blood pressure is 103/64. HEENT: The patient has typical Down syndrome facies. She does have a tracheostomy in place with a plug. She speaks quite well. LUNGS: Lung dunham revealed mild scattered rhonchi bilaterally posteriorly. Respiratory rate is 16. Oxygen saturation was 91%. It was not noted how much oxygen this was on. ABDOMEN: Soft. Bowel sounds were present. EXTREMITIES: Showed no cyanosis, clubbing or edema. The patient sits on a chair with her legs folded. IMAGING DATA: Chest x-ray on admission was reviewed. There are minimal bibasilar infiltrates that could reflect pneumonia or perhaps even chronic changes. LABORATORY DATA: White count today is 13.11. Hemoglobin 10.8. Platelets 173,000. Electrolytes today show sodium 139, potassium 4.2, chloride 105, bicarb 28. BUN was 17 with a creatinine of 0.81. Hemoglobin A1c was severely elevated at 10.2. IMPRESSIONS: 1. Fever, likely secondary to aspiration of GI contents. 2. Obstructive sleep apnea. 3. Bronchiectasis by history. 4. Chronic respiratory failure. 5. Status post trach. 6. Down syndrome. COMMENTS AND RECOMMENDATIONS: The patient seems to be doing well. She does not exhibit symptoms suggesting dyspnea. Would continue with her current medicines. She is on Zosyn and vancomycin as well as oral azithromycin. She is on prednisone 40 mg daily, and if she improves quickly, this can be cut back. Her sugars have been elevated. She does have neb treatments ordered every 6 hours. She has acetylcysteine ordered t.i.d. She is being seen for the first time by myself, but she seems to be improved.
[2017-10-28] MEDS: ATORVASTATIN 10 MG TAB PO SCH (21:26)
[2017-10-28] MEDS: MONTELUKAST SOD 10 MG TAB PO SCH (21:26)
[2017-10-28] MEDS: FEXOFENADINE HCL 180 MG TAB PO SCH (21:27)
[2017-10-29] VITALS (11 sets, daily range): BP systolic 105–135; BP diastolic 64–73; PULSE 51–69; TEMP 36.4–37.1; O2SAT 92–99; Ht 147.3 cm; Wt 61.4 kg
[2017-10-29] MEDS: PIPERACILL/TAZOBAC IV 3.375 GM in DEXTROSE 5% 100ML 100 ML IV SCH ×3 (00:17→16:33)
[2017-10-29] MEDS: ALBUTEROL 0.083% NEBU SOLN 3 ML VIAL INH SCH ×4 (01:25→19:44)
[2017-10-29] MEDS ORDERED: VANCOMYCIN TROUGH ONE (04:30)
[2017-10-29 05:01] LABS: BASO % 0.1 %; BASO ABS # 0.01 K/uL (0-0.2); HEMATOCRIT 31.8 % (37-47); HEMOGLOBIN 10.2 g/dL (12.0-16.0); IG# 0.05 K/uL (0.00-0.02); LYMPH % 7.7 %; LYMPH ABS # 1.04 K/uL (1.2-3.4); MEAN CELL VOLUME 101.3 fL (80-100); MEAN CORPUSCULAR HEMOGLOBIN 32.5 pg (25-34); MEAN CORPUSCULAR HGB CONC 32.1 g/dl (32-36); MEAN PLATELET VOLUME 10.4 fL (7.4-10.4); MONO % 7.1 %; MONO ABS # 0.95 K/uL (0.11-0.59); NEUT % 84.7 %; NEUT ABS # 11.41 K/uL (1.4-6.5); PLATELET COUNT 181 K/uL (130-400); RED CELL DISTRIBUTION WIDTH CV 14.6 % (11.5-14.5); RED CELL DISTRIBUTION WIDTH SD 53.9 fL (36.4-46.3); WHITE BLOOD COUNT 13.46 K/uL (4.8-10.8)
[2017-10-29] MEDS: LEVOTHYROXINE 150 MCG TAB PO SCH (05:09)
[2017-10-29] MEDS: VANCOMYCIN IV 750 MG in SODIUM CHLORIDE 0.9% 250ML 250 ML IV SCH (05:09)
[2017-10-29 05:24] LABS: CALCIUM 8.2 mg/dl (8.5-10.1); CREATININE 0.69 mg/dl (0.60-1.20); POTASSIUM 3.9 mmol/L (3.5-5.1)
[2017-10-29] MEDS: ACETYLCYSTEINE INHAL SOLN 10% 4 ML INH SCH ×3 (07:10→19:44)
[2017-10-29] MEDS: PANTOprazole SOD 40 MG TAB PO SCH (07:30)
[2017-10-29] MEDS: CEROVITE ADV FORMULA TAB PO SCH (07:30)
[2017-10-29] MEDS: CALCIUM 600MG + VIT D 400 IU TAB PO SCH ×3 (07:31→20:05)
[2017-10-29] MEDS: CITALOPRAM 40 MG TAB PO SCH (07:31)
[2017-10-29] MEDS: AZITHROMYCIN 250 MG TAB PO SCH (07:31)
[2017-10-29] MEDS: INSULIN ASPART 100 UNITS/ML 3 ML PEN SC SCH ×4 (08:19→20:07)
--- NOTE | 2017-10-29 09:33 | PULMONARY PROGRESS NOTE ---
DATE: 10/29/2017 TIME: 9:10 a.m. SUBJECTIVE: The patient feels well. She is sitting in a chair. She denies any shortness of breath or breathing problems. The only thing she complains about is the frequent sticks for her hourly blood sugars. OBJECTIVE: GENERAL: The patient appears very comfortable. VITAL SIGNS: Temperature is 36.9. The highest temperature in the past 24 hours is 37.1. Heart rate is 59 per minute. Rhythm is regular. Blood pressure 120/73. LUNGS: Auscultation reveals mild inspiratory rhonchi on the left. Right lung was fairly clear. Breath sounds are mildly diminished at the bases. Respiratory rate 18 per minute. Saturation on room air reported as 92%. LABORATORY DATA: White count today is 13.46. Hemoglobin 10.2. Platelets 181,000. Electrolytes today show sodium 140, potassium 3.9, chloride 104, bicarb 28. BUN is 15 with creatinine 0.69. Magnesium is low at 1.7. IMPRESSIONS: 1. Aspiration of gastrointestinal contents. 2. Obstructive sleep apnea. 3. Chronic respiratory failure. 4. Status post tracheostomy. 5. Bronchiectasis by history. 6. Down syndrome. COMMENTS AND RECOMMENDATIONS: The patient is doing well from a pulmonary perspective. She feels that she is back to baseline. She does not require bronchoscopy at present in light of her improvement.
[2017-10-29] MEDS: INSULIN REGULAR 250 UNITS in SODIUM CHLORIDE 0.9% 250ML 250 ML IV SCH (10:15)
--- NOTE | 2017-10-29 10:40 | Pharmacy Progress Note ---
Pharmacy Glycemic Short Note 2 Date of Service Oct 29, 2017. OUTPATIENT ANTIDIABETIC REGIMEN: * Novolog insulin pump * Previous settings from prior admission: * Basal rates vary every 3 hrs from 0.25 - 0.6 units/hr (total basal insulin dose = 9.6 units/day) * Bolus * SF: 65 during the day and 70 at HS * CR: 1: 15 * Goal range 100 -140 mg/dl * A1c = 10.2 % 10/28/17 Item Value Date Time Bedside Glucose 338 mg/dl H 10/29/17 1010 Bedside Glucose 275 mg/dl H 10/29/17 0907 Bedside Glucose 213 mg/dl H 10/29/17 0805 Bedside Glucose 176 mg/dl H 10/29/17 0659 Bedside Glucose 147 mg/dl H 10/29/17 0633 Bedside Glucose 224 mg/dl H 10/29/17 0532 Bedside Glucose 192 mg/dl H 10/29/17 0433 Bedside Glucose 117 mg/dl H 10/29/17 0407 Bedside Glucose 95 mg/dl H 10/29/17 0331 Bedside Glucose 138 mg/dl H 10/29/17 0234 Bedside Glucose 160 mg/dl H 10/29/17 0102 Bedside Glucose 214 mg/dl H 10/29/17 0005 Bedside Glucose 240 mg/dl H 10/28/17 2300 Bedside Glucose 265 mg/dl H 10/28/17 2215 Bedside Glucose 354 mg/dl *H 10/28/17 2101 Bedside Glucose 347 mg/dl H 10/28/17 2003 Bedside Glucose 391 mg/dl *H 10/28/17 1859 Bedside Glucose 367 mg/dl *H 10/28/17 1805 Bedside Glucose 332 mg/dl H 10/28/17 1705 Bedside Glucose 318 mg/dl H 10/28/17 1600 Bedside Glucose 326 mg/dl H 10/28/17 1437 Bedside Glucose 297 mg/dl H 10/28/17 1334 Bedside Glucose 213 mg/dl H 10/28/17 1230 Bedside Glucose 197 mg/dl H 10/28/17 1137 ASSESSMENT: 10/29/17 * IV insulin infusion continues this AM * BSGs have ranged 95-391 over the last 24 hours. One must keep in mind that many of these BSG elevations are NOT pre-meal BSGs as we are checking BSGs while the patient is eating and immediately afterwards - thus hyperglycemia is expected. 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 SQ basal/bolus therapy has failed on multiple attempts in the past resulting in both severe highs and lows. * Will continue to manage Valorie using the strategy that has worked well in the past, ie IV insulin infusion per protocol combined w/ Novolog SQ coverage at meal-times. IV bolus doses of Regular insulin are sometimes utilized during the day to address severe hyperglycemia if this occurs. PLAN FOR INPATIENT GLYCEMIC CONTROL: * Hold insulin pump until closer to discharge * Continue IV insulin infusion per protocol, goal range 150-250 (wide goal chosen due to risk for severe lows as drip gets titrated upwards while and shortly after eating) * Prandial insulin * NovoLog SQ per carb ratio of 1 unit per 7 grams CHO consumed (higher dose) * If BSGs sustained > 350 for 2 hrs, give IVP of Regular insulin 4 units PLAN FOR DISCHARGE: * Resume Novolog pump per prior settings. Given worsening A1c, she may require adjustments to pump settings.
[2017-10-29] MEDS ORDERED: INSULIN HUMAN REGULAR PER UNIT 4 UNITS in SYRINGE 3.96 ML IV ONE (13:30)
[2017-10-29] MEDS: ENOXAPARIN 40 MG/0.4 ML SYR SC SCH (13:40)
--- NOTE | 2017-10-29 14:26 | Hospitalist Progress Note ---
Hospitalist Progress Note Date of Service Oct 29, 2017. Subjective Pt evaluation today including: conversation w/ patient, conversation w/ family Patient feeling well today, felt a little short of breath last night. Currently is comfortable. Remains afebrile. Glucose has been very difficult to manage and labile. I discussed her glucose management with the pharmacist at length on the phone today-plan is to continue along with current insulin drip protocol. She does note some soreness under the trach on the right side and there is a small blister there. All Other Systems: Reviewed and Negative Objective Vital Signs Date Time Temp Pulse Resp B/P (MAP) Pulse Ox O2 Delivery O2 Flow Rate FiO2 10/29/17 14:04 62 18 96 Nasal Cannula 3.0 10/29/17 10:56 37.1 58 109/67 (81) 94 Nasal Cannula 3.0 10/29/17 08:00 Nasal Cannula 2.0 10/29/17 07:25 56 18 92 Room Air 10/29/17 07:02 36.9 56 16 120/73 (89) 94 Room Air 10/29/17 03:15 37.1 60 18 135/69 (91) 95 Nasal Cannula 3.0 10/29/17 01:25 63 18 97 Nasal Cannula 3.0 10/29/17 00:10 36.9 51 18 134/73 (93) 99 10/28/17 20:00 Humidified Oxygen 2.0 10/28/17 19:24 54 16 96 Nasal Cannula 3.0 10/28/17 19:02 36.8 59 20 146/79 (101) 94 Nasal Cannula 10/28/17 15:51 37.0 71 16 119/68 (85) 92 Nasal Cannula 3.0 10/28/17 15:27 67 15 95 Nasal Cannula 3.0 Physical Exam General Appearance: no apparent distress, + pertinent finding (Small stature with dysmorphic features) Eyes: normal inspection, sclerae normal ENT: hearing grossly normal Neck: trachea midline (With tracheostomy in place that is metal; with small blister and mild erythema under the right side of the trach on the skin of her anterior neck) Respiratory/Chest: no respiratory distress, no accessory muscle use, + decreased breath sounds (At the bases bilaterally left greater than right, with occasional expiratory wheeze and rhonchi) Cardiovascular: regular rate, rhythm, no edema, + systolic murmur Abdomen: normal bowel sounds, non tender, soft Extremities: normal inspection, no pedal edema, no calf tenderness Neurologic/Psychiatric: alert, normal mood/affect Skin: normal color, warm/dry, no rash Laboratory Results Last 24 Hours Test 10/28/17 14:37 10/28/17 16:00 10/28/17 17:05 10/28/17 18:05 Bedside Glucose 326 mg/dl 318 mg/dl 332 mg/dl 367 mg/dl Test 10/28/17 18:59 10/28/17 20:03 10/28/17 21:01 10/28/17 22:15 Bedside Glucose 391 mg/dl 347 mg/dl 354 mg/dl 265 mg/dl Test 10/28/17 23:00 10/29/17 00:05 10/29/17 01:02 10/29/17 02:34 Bedside Glucose 240 mg/dl 214 mg/dl 160 mg/dl 138 mg/dl Test 10/29/17 03:31 10/29/17 04:07 10/29/17 04:33 10/29/17 04:37 Bedside Glucose 95 mg/dl 117 mg/dl 192 mg/dl White Blood Count 13.46 K/uL Red Blood Count 3.14 M/uL Hemoglobin 10.2 g/dL Hematocrit 31.8 % Mean Corpuscular Volume 101.3 fL Mean Corpuscular Hemoglobin 32.5 pg Mean Corpuscular Hemoglobin Concent 32.1 g/dl Platelet Count 181 K/uL Mean Platelet Volume 10.4 fL Neutrophils (%) (Auto) 84.7 % Lymphocytes (%) (Auto) 7.7 % Monocytes (%) (Auto) 7.1 % Eosinophils (%) (Auto) 0.0 % Basophils (%) (Auto) 0.1 % Neutrophils # (Auto) 11.41 K/uL Lymphocytes # (Auto) 1.04 K/uL Monocytes # (Auto) 0.95 K/uL Eosinophils # (Auto) 0.00 K/uL Basophils # (Auto) 0.01 K/uL RDW Standard Deviation 53.9 fL RDW Coefficient of Variation 14.6 % Immature Granulocyte % (Auto) 0.4 % Immature Granulocyte # (Auto) 0.05 K/uL Sodium Level 140 mmol/L Potassium Level 3.9 mmol/L Chloride Level 104 mmol/L Carbon Dioxide Level 28 mmol/L Anion Gap 8.0 mmol/L Blood Urea Nitrogen 15 mg/dl Creatinine 0.69 mg/dl Est Creatinine Clear Calc Drug Dose 71.9 ml/min Estimated GFR () 115.2 Estimated GFR (Non- 99.4 BUN/Creatinine Ratio 22.2 Random Glucose 198 mg/dl Calcium Level 8.2 mg/dl Magnesium Level 1.7 mg/dl Vancomycin Level Trough 13.0 mcg/ml Test 10/29/17 05:32 10/29/17 06:33 10/29/17 06:59 10/29/17 08:05 Bedside Glucose 224 mg/dl 147 mg/dl 176 mg/dl 213 mg/dl Test 10/29/17 09:07 10/29/17 10:10 10/29/17 11:04 10/29/17 12:05 Bedside Glucose 275 mg/dl 338 mg/dl 318 mg/dl 342 mg/dl Test 10/29/17 13:06 10/29/17 14:03 Bedside Glucose 409 mg/dl 390 mg/dl Assessment and Plan This patient is a very pleasant 52-year-old female with a history of Down syndrome, DM 1 on insulin pump, seizure disorder, chronic hypoxic respiratory failure with tracheal stenosis and tracheostomy, CAMILLA on BiPAP, aspiration pneumonias, hypothyroidism, hyperlipidemia, depression, seasonal allergies, GERD , anemia of chronic disease, 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 She is typically on various antibiotics presumably for prophylaxis at home to include Bactrim, doxycycline, and daily Augmentin most recently. She had her Augmentin increase to twice daily and was prescribed azithromycin the day prior to admission, as well as a burst of prednisone with planned taper. When she spiked a fever and complained of a headache and was more lethargic, she was brought into the ER. She was given a 1 hour nebulizer treatment and had some improvement in her wheezing, found to have a bilateral lower lobe pneumonia on chest x-ray, and was given IV Levaquin as well as IV Solu-Medrol. Bilateral lower lobe pneumonia/fever/tracheal stenosis with tracheostomy-sepsis not POA, however did have a fever at home prior to arrival. Has history of recurrent aspiration and this very well could be an aspiration pneumonia. She was not responding to Augmentin at home and she has a history of MRSA and E. coli pneumonias with E. coli being resistant to Levaquin in the past. Doing very well here today, remains afebrile. -Continue telemetry monitoring -Continue supplemental O2 continuously to keep pulse ox greater than 92%- chronically on 2-4 L nasal cannula -Continue IV Zosyn to cover for history of resistant E. coli in the sputum; will discontinue IV vancomycin despite history of MRSA PNA as MRSA swab here of the nose is now on negative -Will finish out 5 day course of azithromycin to cover for atypicals -We will likely transition to Augmentin tomorrow to finish out a 7 day course -Follow blood cultures-no growth to date -Consult pulmonology appreciated-agrees with aspiration pneumonitis -Continue prednisone and will taper down to 20 mg daily given severe hyperglycemia -Continue recommended speech therapy diet from previously-mechanical soft nectar thick liquids -Follow chest x-ray to resolution-follow in the morning -Continue albuterol nebulizers scheduled, Mucomyst nebs scheduled, chest PT 3 times daily -Follow CBC DM 1, uncontrolled, known brittle diabetic on insulin pump-with history of hypoglycemia and hyperglycemia. Last hemoglobin A1c 8.8% in 05/2017. Follows with endocrinology as an outpatient. No evidence of DKA here. Had significant hyperglycemia in the 500s on the first day of admission. Hemoglobin A1c here is significantly elevated at 10.2% With continued severe hyperglycemia but with history of hypoglycemia, she is on insulin drip protocol and is quite labile. This is worsened by corticosteroids -Continue insulin drip and plan to transition either back to her insulin pump prior to discharge -Consult glycemic pharmacy management-appreciated -Watch electrolytes and follow PRP -Tapering corticosteroids down quickly Chronic hypoxic respiratory failure/CAMILLA on BiPAP/tracheal stenosis with tracheostomy/chronic bronchitis- -Continue supplemental O2 and BiPAP at night as per home -Trach care -Continue Breo ellipta Down syndrome-noted -Supportive care Seizure disorder-noted, with hypoglycemic seizures, not on antiepileptic drugs -Observe and manage glucose appropriately as above Hypothyroidism-last TSH 0.996 in 05/2017, compensated -Continue home levothyroxine dose Hyperlipidemia-stable -Continue statin Major depressive disorder-stable -Continue SSRI Seasonal allergies-stable -Continue Singulair GERD-stable -Continue PPI Anemia of chronic disease-hemoglobin stable from previous at 10.2, is macrocytic. Previous iron studies showed anemia of chronic disease, B12 and folate were normal in the last 6 months. 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
[2017-10-29] MEDS: ATORVASTATIN 10 MG TAB PO SCH (20:06)
[2017-10-29] MEDS: MONTELUKAST SOD 10 MG TAB PO SCH (20:06)
[2017-10-29] MEDS: FEXOFENADINE HCL 180 MG TAB PO SCH (20:07)
[2017-10-30] VITALS (9 sets, daily range): BP systolic 120–142; BP diastolic 65–82; PULSE 49–60; TEMP 36.7–37.1; O2SAT 90–97
[2017-10-30] MEDS: PIPERACILL/TAZOBAC IV 3.375 GM in DEXTROSE 5% 100ML 100 ML IV SCH (00:23)
[2017-10-30] MEDS: ALBUTEROL 0.083% NEBU SOLN 3 ML VIAL INH SCH ×3 (01:58→14:07)
[2017-10-30 05:07] LABS: BASO % 0.1 %; BASO ABS # 0.01 K/uL (0-0.2); EOS % 0.1 %; EOS ABS # 0.01 K/uL (0-0.5); HEMATOCRIT 32.9 % (37-47); HEMOGLOBIN 10.5 g/dL (12.0-16.0); IG# 0.02 K/uL (0.00-0.02); LYMPH % 18.8 %; LYMPH ABS # 1.28 K/uL (1.2-3.4); MEAN CELL VOLUME 101.2 fL (80-100); MEAN CORPUSCULAR HEMOGLOBIN 32.3 pg (25-34); MEAN CORPUSCULAR HGB CONC 31.9 g/dl (32-36); MEAN PLATELET VOLUME 10.7 fL (7.4-10.4); MONO % 8.5 %; MONO ABS # 0.58 K/uL (0.11-0.59); NEUT % 72.2 %; PLATELET COUNT 216 K/uL (130-400); RED CELL DISTRIBUTION WIDTH CV 14.3 % (11.5-14.5); RED CELL DISTRIBUTION WIDTH SD 53.4 fL (36.4-46.3)
[2017-10-30 05:32] LABS: CALCIUM 8.2 mg/dl (8.5-10.1); CREATININE 0.64 mg/dl (0.60-1.20); POTASSIUM 3.5 mmol/L (3.5-5.1)
[2017-10-30] MEDS: LEVOTHYROXINE 150 MCG TAB PO SCH (05:41)
[2017-10-30] MEDS: ACETYLCYSTEINE INHAL SOLN 10% 4 ML INH SCH ×2 (07:09→14:07)
[2017-10-30] MEDS ORDERED: AMOXICILLIN/CLAVULANATE TAB 875 MG TAB PO ONE (07:48)
--- NOTE | 2017-10-30 08:20 | DIAGNOSTIC IMAGING REPORT ---
TWO VIEW CHEST CLINICAL HISTORY: Follow-up aspiration pneumonia. FINDINGS: AP and lateral chest radiographs are compared to study dated 10/27/2017. Correlation is made with chest CT dated 05/20/2015. The AP view is degraded by apical lordotic positioning. A right subclavian central venous infusion port and a tracheostomy are unchanged in position. The cardiomediastinal silhouette is unremarkable. Heart is top normal for projection. The pulmonary vasculature is noncongested. There are small pleural effusions with bibasilar consolidation, left greater than right. There is no pneumothorax. The skeletal structures are osteopenic. There are numerous healed bilateral rib fractures. Chronic posttraumatic deformity is also seen in the left proximal humerus. IMPRESSION: There are small pleural effusions with bibasilar consolidation, left greater than right. This could represent atelectasis versus pneumonia/aspiration pneumonitis. Continued follow-up to complete resolution is recommended. Electronically signed by: Saroj Naqvi M.D. 10/30/2017 8:18 AM Dictated Date/Time: 10/30/2017 8:16 AM
[2017-10-30] MEDS: PANTOprazole SOD 40 MG TAB PO SCH (08:28)
[2017-10-30] MEDS: CEROVITE ADV FORMULA TAB PO SCH (08:28)
[2017-10-30] MEDS: CITALOPRAM 40 MG TAB PO SCH (08:29)
[2017-10-30] MEDS: AZITHROMYCIN 250 MG TAB PO SCH (08:29)
[2017-10-30] MEDS: CALCIUM 600MG + VIT D 400 IU TAB PO SCH ×2 (08:29→13:38)
[2017-10-30] MEDS: INSULIN ASPART 100 UNITS/ML 3 ML PEN SC SCH ×3 (08:32→17:15)
[2017-10-30] MEDS: INSULIN REGULAR 250 UNITS in SODIUM CHLORIDE 0.9% 250ML 250 ML IV SCH (11:14)
--- NOTE | 2017-10-30 12:11 | PULMONARY PROGRESS NOTE ---
DATE: 10/30/2017 TIME: 10:35 a.m. SUBJECTIVE: The patient denies complaints. She says she is not short of breath. She is overall feeling well. She has mild soreness near the edge of her trach. Apparently, her appetite is good. OBJECTIVE: GENERAL: The patient appears comfortable. She was sleeping when I came in, but she aroused readily. VITAL SIGNS: Temperature is 36.8. Cardiac rate is 53 per minute. Rhythm is regular. Blood pressure 142/82. NECK: Shows the tracheostomy in place. She has a mild area of erythema underneath the metal portion of the trach slightly to the right side. It does not appear infected, just slightly irritated. MUSCULOSKELETAL: The patient has a straight back with loss of the dorsal curve. LUNGS: Lung dunham revealed mild rhonchi at both bases. There was no distress. Respiratory rate 16. Oxygen saturation 93% on room air. LABORATORY DATA: White count today down to 6.8. Yesterday, it was 13.46. Hemoglobin 10.5. Platelets 216,000. Blood sugars this morning ranged from 153 to 223. The patient had a chest x-ray this morning. There is an infiltrate or opacification predominantly at the left base. This is best seen on the lateral projection. It looks relatively similar to the prior x-ray done 10/27/2017. Review of the prior x-ray done 09/19/2017 with particular attention to the lateral view would look like it is similar or perhaps slightly increased on the recent x-ray. These findings could be atelectasis versus pneumonia. IMPRESSIONS: 1. Left lower lobe infiltrate. 2. Probable aspiration of GI contents. 3. Obstructive sleep apnea by history. 4. Chronic respiratory failure. 5. Status post trach. 6. History of bronchiectasis. 7. Down syndrome. COMMENTS AND RECOMMENDATIONS: The patient seems to be clinically stable. She is having few symptoms. She still has mild rhonchi on exam. It is unknown if some of these are chronic. She is now on Augmentin. Her prednisone is down to 20 mg per day. From a pulmonary perspective, she is overall stable.
--- NOTE | 2017-10-30 12:17 | Pharmacy Progress Note ---
Pharmacy Glycemic Short Note 2 Date of Service Oct 30, 2017. OUTPATIENT ANTIDIABETIC REGIMEN: * Novolog insulin pump * Previous settings from prior admission: * Basal rates vary every 3 hrs from 0.25 - 0.6 units/hr (total basal insulin dose = 9.6 units/day) * Bolus * SF: 65 during the day and 70 at HS * CR: 1: 15 * Goal range 100 -140 mg/dl * A1c = 10.2 % 10/28/17 Test 10/29/17 13:06 10/29/17 14:03 10/29/17 15:03 10/29/17 16:07 Bedside Glucose 409 mg/dl (70-90) 390 mg/dl (70-90) 394 mg/dl (70-90) 390 mg/dl (70-90) Test 10/29/17 17:09 10/29/17 18:07 10/29/17 19:01 10/29/17 20:04 Bedside Glucose 275 mg/dl (70-90) 322 mg/dl (70-90) 333 mg/dl (70-90) 258 mg/dl (70-90) Test 10/29/17 21:03 10/29/17 22:00 10/29/17 22:59 10/29/17 23:59 Bedside Glucose 263 mg/dl (70-90) 290 mg/dl (70-90) 274 mg/dl (70-90) 175 mg/dl (70-90) Test 10/30/17 00:55 10/30/17 02:02 10/30/17 02:59 10/30/17 03:31 Bedside Glucose 206 mg/dl (70-90) 189 mg/dl (70-90) 143 mg/dl (70-90) 180 mg/dl (70-90) Test 10/30/17 04:21 10/30/17 04:29 10/30/17 05:02 10/30/17 05:29 Random Glucose 136 mg/dl (70-99) Bedside Glucose 132 mg/dl (70-90) 142 mg/dl (70-90) 153 mg/dl (70-90) Test 10/30/17 06:31 10/30/17 07:31 10/30/17 08:35 10/30/17 09:40 Bedside Glucose 198 mg/dl (70-90) 223 mg/dl (70-90) 214 mg/dl (70-90) 271 mg/dl (70-90) Test 10/30/17 10:43 10/30/17 11:32 10/30/17 11:52 Bedside Glucose 211 mg/dl (70-90) 143 mg/dl (70-90) 117 mg/dl (70-90) ASSESSMENT: 10/30/17 * IV insulin infusion continues today * Zosyn transitioned to Augmentin PO today, removing a source of continuous IV dextrose administration * Steroid dose also reduced today * Pt's BSGs tend to deteriorate mid-day likely due to diet and steroid administration in the AM * Glycemic control better this AM than yesterday and thus far, BSGs not climbing today like yesterday, likely secondary to the above changes * Pt may be discharged today or tomorrow. Contacted [facility] today ([phone]) to discuss transition to SQ insulin pump on discharge. Plan is to have [facility] caregiver restart the patient's insulin pump here and allow pump to run for 1 hour with the IV insulin infusion prior to discharge. The [facility] has requested they be contacted to plan accordingly when the date/time of discharge known. 10/29/17 * IV insulin infusion continues this AM * BSGs have ranged 95-391 over the last 24 hours. One must keep in mind that many of these BSG elevations are NOT pre-meal BSGs as we are checking BSGs while the patient is eating and immediately afterwards - thus hyperglycemia is expected. 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 SQ basal/bolus therapy has failed on multiple attempts in the past resulting in both severe highs and lows. * Will continue to manage Valorie using the strategy that has worked well in the past, ie IV insulin infusion per protocol combined w/ Novolog SQ coverage at meal-times. IV bolus doses of Regular insulin are sometimes utilized during the day to address severe hyperglycemia if this occurs. PLAN FOR INPATIENT GLYCEMIC CONTROL: * Hold insulin pump until closer to discharge * Continue IV insulin infusion per protocol, goal range 150-250 (wide goal chosen due to risk for severe lows as drip gets titrated upwards while and shortly after eating) * Prandial insulin * NovoLog SQ per carb ratio of 1 unit per 7 grams CHO consumed (no change) * If BSGs sustained > 350 for 2 hrs, give IVP of Regular insulin 4 units * When ready for discharge, [facility] caregiver to bring pt's pump and supplies to hospital and initiate pump while still admitted. There should be a 1 hour overlap of the pump with the drip prior to discharge. [facility] staff are aware of the plan but have requested a phone call with date/time of discharge so they may plan accordingly. PLAN FOR DISCHARGE: * Resume Novolog pump per prior settings. Given worsening A1c, she may require adjustments to pump settings.
[2017-10-30] MEDS: ENOXAPARIN 40 MG/0.4 ML SYR SC SCH (13:38)
[2017-10-30] MEDS ORDERED: AZIT250T PO (14:05)
[2017-10-30] MEDS ORDERED: PRED10TA PO (14:05)
--- NOTE | 2017-10-30 14:08 | Discharge Instructions ---
Discharge Instructions Date of Service Oct 30, 2017. Admission Reason for Admission: Pneumonia Discharge Discharge Diagnosis / Problem: Pneumonia, fever Discharge Goals Goal(s): Improve disease control, Diagnostic testing, Therapeutic intervention Activity Recommendations Activity Limitations: resume your previous activity . Instructions / Follow-Up Instructions / Follow-Up Please finish out the Augmentin 875 mg twice daily for 6 more days and the azithromycin for 1 more day. Please finish out the prednisone taper as directed. Follow-up with your PCP and pulmonology within 1-2 weeks as scheduled for you. Current Hospital Diet Patient's current hospital diet: Diabetes Type 1 Diet Discharge Diet Recommended Diet: Diabetes Type 1 Diet Procedures Procedures Performed: Chest x-rays Pending Studies Studies pending at discharge: yes List of pending studies: Final blood culture results-no growth to date Sputum culture result-no growth to date Laboratory Results Hemoglobin A1c Test 10/28/17 05:30 Range/Units Estimated Average Glucose 246 mg/dl Hemoglobin A1c 10.2 H 4.5-5.6 % Medical Emergencies . Who to Call and When: Medical Emergencies: If at any time you feel your situation is an emergency, please call 911 immediately. . Non-Emergent Contact Non-Emergency issues call your: Primary Care Provider, Twx Operator Call Non-Emergent contact if: temperature is above 101, you have any medication questions . . "Provider Documentation" section prepared by Monserrat Benson. .
--- NOTE | 2017-10-30 14:20 | Discharge Summary ---
Discharge Summary Date of Service Oct 30, 2017. 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 coli pneumonias with E. coli being resistant to Levaquin in the past. Dysphagia Immunizations: Have You Had Influenza Vaccine: N/A Influenza Vaccine Date: Dec 18, 2005 History of Tetanus Vaccine?: Unknown Tetanus Immunization Date: May 22, 2001 History of Pneumococcal: Yes Pneumococcal Date: August 15, 2012 History of Hepatitis B Vaccine: No Procedures: Chest x-ray 2 Consultations: Pulmonology Medication Reconciliation Changed Medications: Azithromycin (Zithromax) 250 Mg Tab 250 MG PO DAILY for 1 Day (Changed from: Removed Instructions) Prednisone (Prednisone) 10 Mg Tab 20 MG PO QAM for 30 Days (Changed from: 10 MG; UD; take 4 tabs daily for 2 days, 3 tabs for 2 days,2 tabs for 2 days,1 tab for 2 days..start 10/25/17) Take 20 mg daily 2 days, then return to 10 mg daily indefinitely Continued Medications: Acetaminophen Tab (Tylenol) 325 Mg Tab 650 MG PO Q4 PRN for Fever, TAB Acetaminophen Tab (Tylenol) 325 Mg Tab 650 MG PO Q4 PRN for Headache Acetylcysteine (Acetylcysteine) 1 Ml Inha 4 ML NEB TID Albuterol Hfa (Ventolin Hfa) 200 Puffs/86294 Mcg Aers 2 PUFFS INH QID PRN for Shortness of Breath Albuterol Sulf (Proventil 0.083% 2.5MG/3ML) 2.5 Mg/3 Ml Nebu 2.5 MG TR TID, EA USE VIA TRACH MASK Amoxicillin & Pot Clavulanate (Augmentin 875-125 mg) 1 Tab Tab 1 TAB PO Q12, #10 last dose to be 11/05/17 @ 0800 Atorvastatin (Lipitor) 10 Mg Tab 10 MG PO HS Calcium Carbonate-Cholecalcife (Oyster Shell Calcium + D) 1 Tab Tab 1 TAB PO TID MORNING, AFTERNOON AND BEDTIME Citalopram Hydrobromide (Celexa) 40 Mg Tab 40 MG PO DAILY, TAB Clotrimazole (Topical) (Anti-Fungal) 1 % Cre 1 APPLN TOP TID PRN for RASH APPLY 3 TIMES DAILY NEEDED FOR RASH AROUND TRACH Dextrose (Diabetic Use) (Insta-Glucose) 77.4 % Gel 1 TUBE PO DIRECTED PRN for LOW BLOOD SUGAR Ergocalciferol (Vitamin D 54816 Unit) 50,000 Unit Cap 09055 UNIT PO WK, CAP ONCE EVERY 7 DAYS (THURSDAYS) Fexofenadine Hcl (Danielle) 180 Mg Tab 180 MG PO HS, TAB Fluconazole (Diflucan) 150 Mg Tab 150 MG PO UD PRN for yeast infection give one time, may repeat in a week if needed Fluticasone Furoate-Vilanterol (Breo Ellipta) 1 Inh Inh 1 PUFF PO DAILY Furosemide (Lasix) 20 Mg Tab 20 MG PO DAILY PRN for WEIGHT GAIN, TAB WEIGHT GAIN > 3LB IN 24HRS AND WITNESSED EDEMA/SOB. HOLD FOR 3LB WEIGHT GAIN AND NO SOB OR EDEMA Glucagon (Glucagon Emergency Kit) 1 Mg Kit 1 MG IM PRN for UNRESPONSIVE PRN FOR LOW BLOOD SUGAR EPISODES Glucose-Vitamin C (Dex4) 1 Chw Chw 1 TAB PO DAILY PRN for LOW BLOOD SUGARS Home O2 Therapy (Oxygen) Gas LITER UD 2 LITERS VIA N/C OR TRACH MASK AT REST 4 LITERS WITH EXERTION Insulin Aspart (novoLOG INSULIN PUMP ) 1 Ea Inj N/A UD, EA USE IN THE INSULIN PUMP DIRECTED Insulin Glargine (Basaglar Kwikpen) 100 Unit/Ml Inj as needed for pump malfunction 25-30 units Levothyroxine Sodium (Levothyroxine Sodium) 150 Mcg Tab 150 MCG PO QAM for 90 Days, #90 TAB 3 Refills Montelukast Sodium (Singulair) 10 Mg Tab 10 MG PO HS, TAB Multiple Vitamins W/ Minerals (Therems M) 1 Tab Tab 1 TAB PO QAM Omeprazole (Prilosec) 20 Mg Capcr 20 MG PO QAM, CAP Prednisone Tab (Prednisone) 10 Mg Tab 10 MG PO DAILY, TAB Promethazine (Phenergan ) 12.5 Mg Tab 12.5 MG PO Q8 PRN for Nausea or Vomiting, TAB Sodium Chloride (Gu Irrigant) (Sodium Chloride 0.9%) 0.9 % Mary Anne DAILY USE TO CLEAN TRACH TUBE DAILY. Sodium Fluoride (Dental) (Phos-Flur Ortho Defense) 0.044 % Mary Anne 0.5 OZ PO HS RINSE WITH 1\2 OUNCE BY MOUTH Thickened Products (Thick-It) 1 Liq Liq add to all liquids to achieve nectar like consistency [Percussion Vest] () TID USE WITH SETTING 14 FOR 20 MINUTES Discharge Exam Patient doing very well, minimal cough, not short of breath, is on home level of oxygen. Denies any problems at this time. She is eating very well, blood sugars are much better controlled. She denies abdominal pain. She is moving her bowels. Telemetry with normal sinus rhythm, sinus arrhythmia, sinus bradycardia with rates as low as 37 up to the 70s. Physical Exam General Appearance: no apparent distress, + pertinent finding (Small stature with dysmorphic features) Eyes: normal inspection, sclerae normal ENT: hearing grossly normal Neck: trachea midline (With tracheostomy in place that is metal; with small blister and mild erythema under the right side of the trach on the skin of her anterior neck) Respiratory/Chest: no respiratory distress, no accessory muscle use, + decreased breath sounds (At the bases bilaterally left greater than right, with occasional expiratory wheeze and rhonchi, moving air better today) Cardiovascular: regular rate, rhythm, no edema, + systolic murmur Abdomen: normal bowel sounds, non tender, soft Extremities: normal inspection, no pedal edema, no calf tenderness Neurologic/Psychiatric: alert, normal mood/affect Skin: normal color, warm/dry, no rash Review of Systems: Constitutional: No fever, No chills Eyes: No problem reported ENT: No problem reported Respiratory: No problem reported Cardiovascular: No problem reported Abdomen: No problem reported Musculoskeletal: No problem reported Genitourinary - Female: No problem reported Neurologic: No problem reported Psychiatric: No problem reported Endocrine: No problem reported Hematologic / Lymphatic: No problem reported Integumentary: No problem reported Hospital Course This patient is a very pleasant 52-year-old female with a history of Down syndrome, DM 1 on insulin pump, seizure disorder, chronic hypoxic respiratory failure with tracheal stenosis and tracheostomy, CAMILLA on BiPAP, aspiration pneumonias, hypothyroidism, hyperlipidemia, depression, seasonal allergies, GERD , anemia of chronic disease, history of 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 She is typically on various antibiotics presumably for prophylaxis at home to include Bactrim, doxycycline, and daily Augmentin most recently. She had her Augmentin increase to twice daily and was prescribed azithromycin the day prior to admission, as well as a burst of prednisone with planned taper. When she spiked a fever and complained of a headache and was more lethargic, she was brought into the ER. She was given a 1 hour nebulizer treatment and had some improvement in her wheezing, found to have a bilateral lower lobe pneumonia on chest x-ray, and was given IV Levaquin as well as IV Solu-Medrol. Bilateral lower lobe pneumonia/fever/tracheal stenosis with tracheostomy-sepsis not POA, however did have a fever at home prior to arrival. Has history of recurrent aspiration and this very well could be an aspiration pneumonia. She was not responding to Augmentin at home and she has a history of MRSA and E. coli pneumonias with E. coli being resistant to Levaquin in the past. Doing very well here today, remains afebrile. Had no significant events on telemetry monitoring -Continue supplemental O2 continuously to keep pulse ox greater than 92%- chronically on 2-4 L nasal cannula -Received IV Zosyn to cover for history of resistant E. coli in the sputum; also received IV vancomycin given her history of MRSA PNA, but then discontinued as MRSA swab here of the nose is now negative -Will finish out 5 day course of azithromycin to cover for atypicals-1 more day -Will transition back to Augmentin upon discharge to finish out a 10 day course -Follow blood cultures-no growth to date -Sputum culture no growth to date -Consult pulmonology appreciated-agrees with aspiration pneumonitis -Continue prednisone and will taper down to 20 mg daily for 2 more days and then back to home dose of 10 mg daily given severe hyperglycemia -Continue recommended speech therapy diet from previously-mechanical soft nectar thick liquids -Follow chest x-ray to resolution-as an outpatient -Continue albuterol nebulizers scheduled, Mucomyst nebs scheduled, chest PT 3 times daily -Follow with pulmonology within 1-2 weeks after discharge DM 1, uncontrolled, known brittle diabetic on insulin pump-with history of hypoglycemia and hyperglycemia. Last hemoglobin A1c 8.8% in 05/2017. Follows with endocrinology as an outpatient. No evidence of DKA here. Had significant hyperglycemia in the 500s on the first day of admission. Hemoglobin A1c here is significantly elevated at 10.2% Did have persistent, severe hyperglycemia but with history of hypoglycemia, she was placed on insulin drip protocol and is quite labile. This is worsened by corticosteroids. Much improved on the day of discharge after tapering down prednisone -She was transitioned back to her insulin pump prior to discharge -Consult glycemic pharmacy management-appreciated Chronic hypoxic respiratory failure/CAMILLA on BiPAP/tracheal stenosis with tracheostomy/chronic bronchitis- -Continue supplemental O2 and BiPAP at night as per home -Trach care -Continue Breo ellipta Down syndrome-noted -Supportive care Seizure disorder-noted, with hypoglycemic seizures, not on antiepileptic drugs -Observe and manage glucose appropriately as above Hypothyroidism-last TSH 0.996 in 05/2017, compensated -Continue home levothyroxine dose Hyperlipidemia-stable -Continue statin Major depressive disorder-stable -Continue SSRI Seasonal allergies-stable -Continue Singulair GERD-stable -Continue PPI Anemia of chronic disease-hemoglobin stable from previous at 10.2, is macrocytic. Previous iron studies showed anemia of chronic disease, B12 and folate were normal in the last 6 months. 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 Discharge Instructions Please refer to the electronic Patient Visit Report (Discharge Instructions) for additional information. Follow-Up With PCP and pulmonology within 1-2 weeks Additional Copies To Vladimir Lucio M.D.; Isra Mandujano PA-C
[2017-10-30] MEDS ORDERED: INSULIN HUMAN REGULAR PER UNIT 4 UNITS in SYRINGE 3.96 ML IV ONE (15:00)
[2017-10-30] MEDS ORDERED: AMOXICILLIN/CLAVULANATE TAB 875 MG TAB PO SCH (16:45)
[2017-10-31] MEDS ORDERED: ERGOCALCIFEROL 50,000 INTER.UNIT CAP PO SCH (09:00)
== END 2017-10-30 18:00 | disposition home or self-care (01) | DRG 177 ==
LOC: C.EDB 04:59 → C.2E 09:04 → ENRESERV 09:17
PROVIDERS: ADMIT Family Medicine; ATTEND Family Medicine
DX: J69.0 Pneumonitis due to inhalation of food and vomit (principal); A41.9 Sepsis, unspecified organism; J96.11 Chronic respiratory failure with hypoxia; J47.0 Bronchiectasis with acute lower respiratory infection; J98.11 Atelectasis; Q21.1 Atrial septal defect; Q90.9 Down syndrome, unspecified; E10.65 Type 1 diabetes mellitus with hyperglycemia; T38.0X5A Adverse effect of glucocorticoids and synthetic analogues, initial encounter; R13.10 Dysphagia, unspecified; J42 Unspecified chronic bronchitis; J39.8 Other specified diseases of upper respiratory tract; I27.29 Other secondary pulmonary hypertension; G40.909 Epilepsy, unspecified, not intractable, without status epilepticus; K21.9 Gastro-esophageal reflux disease without esophagitis; E78.5 Hyperlipidemia, unspecified; E03.9 Hypothyroidism, unspecified; J30.2 Other seasonal allergic rhinitis; D63.8 Anemia in other chronic diseases classified elsewhere; D75.89 Other specified diseases of blood and blood-forming organs; G47.33 Obstructive sleep apnea (adult) (pediatric); F32.9 Major depressive disorder, single episode, unspecified; Z93.0 Tracheostomy status; Z99.81 Dependence on supplemental oxygen; Z99.89 Dependence on other enabling machines and devices; Z96.41 Presence of insulin pump (external) (internal); Z87.74 Personal history of (corrected) congenital malformations of heart and circulatory system; Z86.14 Personal history of Methicillin resistant Staphylococcus aureus infection; Z79.2 Long term (current) use of antibiotics; Z79.4 Long term (current) use of insulin; Z79.51 Long term (current) use of inhaled steroids; Z79.52 Long term (current) use of systemic steroids; Z79.899 Other long term (current) drug therapy; Z88.1 Allergy status to other antibiotic agents; Z88.8 Allergy status to other drugs, medicaments and biological substances

== ENCOUNTER 2018-04-15 03:06 | Inpatient (IN) ==
[2018-04-15] MEDS ORDERED: SODIUM CHLORIDE 0.9% 1000ML 1,000 ML IV ONE (03:18)
[2018-04-15] MEDS ORDERED: PIPERACILL/TAZOBAC CONSULT ACTIVE PRN (03:43)
[2018-04-15] MEDS ORDERED: PIPERACILLIN/TAZOBACTAM 4.5 GM/120 ML BAG IV ONE (03:43)
[2018-04-15 03:45] LABS: Hematocrit (blood only) 36.1 % (37-47); Hemoglobin 11.8 g/dL (12.0-16.0); Mean Corpuscular Hgb Conc 32.7 g/dL (32-36); Mean Corpuscular Volume 103.7 fL (80-100); Mean Platelet Volume 10.1 fL (7.4-10.4); Platelet Count 174 K/uL (130-400); RDW Coefficient of Variation 13.6 % (11.5-14.5); RDW Standard Deviation 51.2 fL (36.4-46.3); Red Blood Count 3.48 M/uL (4.2-5.4); White Blood Count 24.06 K/uL (4.8-10.8)
[2018-04-15 04:01] LABS: BUN Creatinine Ratio 17.4 (10-20); Blood Urea Nitrogen 18 mg/dl (7-18); Calcium 8.7 mg/dl (8.5-10.1); Carbon Dioxide 32 mmol/L (21-32); Chloride 103 mmol/L (98-107); Est GFR (African American) 69.4; Est GFR (Non-African American) 59.9; Glucose 158 mg/dl (70-99); Potassium 3.9 mmol/L (3.5-5.1); Sodium 138 mmol/L (136-145)
[2018-04-15 04:04] LABS: Basophils # (auto) 0.02 K/uL (0-0.2); Basophils % (auto) 0.1 %; Immature Granulocytes # (auto) 0.12 K/uL (0.00-0.02); Immature Granulocytes % (auto) 0.5 %; Lymphocytes # (auto) 1.25 K/uL (1.2-3.4); Lymphocytes % (auto) 5.2 %; Monocytes % (auto) 6.2 %; Neutrophils # (auto) 21.17 K/uL (1.4-6.5); RBC Morphology Unremarkable
[2018-04-15 04:05] LABS: Troponin I < 0.015 ng/ml (0-0.045)
[2018-04-15] MEDS ORDERED: VANCOMYCIN HCL 1,250 MG in SODIUM CHLORIDE 0.9% 500 ML IV ONE (04:08)
[2018-04-15] MEDS ORDERED: VANCOMYCIN CONSULT ACTIVE PRN (04:08)
[2018-04-15] MEDS ORDERED: SODIUM CHLORIDE 0.9% 1000ML 500 ML IV ONE (04:10)
[2018-04-15 04:27] LABS: Influenza A virus by PCR Neg for Influ A (Neg); Influenza B virus by PCR Neg for Influ B (Neg)
--- NOTE | 2018-04-15 04:42 | History & Physical Report ---
Date of Service April 15, 2018 Assessment & Plan (1) Sepsis: 52 y/o F with a complex medical history including Down syndrome, DM, HLD, hypothyroidism, pulmonary HTN, tracheal stenosis with permanent tracheostomy, recurrent aspiration pneumonia, chronic hypoxic respiratory failure - 2L 02 at rest, 4L O2 with activity/nocturnal, CAMILLA. The pt was recently admitted to the hospital for aspiration PNM 02/14-02/16, then again 03/07-03/10. Since one week ago, pt has felt ill, +cough and thick green mucous was draining from her trach. Was seen by her bench lay out technician in the clinic and started on Levaquin. Since then has complained of some nausea. Today spiked a fever 103, tylenol given. Saturating 88% on 4L, and so presented to the ED. History reported by caregiver named Jaleesa at bedside. Denies lethargy, vomiting, diarrhea, constipation. Endorses sick contact at her facility who was diagnosed with viral URI and treated conservatively. Endorses poor appetite. "Today is the first time she's spiked a fever in months". ED course: given fluids, supplemental O2 via trach currently satting 95% on 11L. BP lower than baseline. Fluid boluses given. Vanc zosyn begun. CBC remarkable for leukocytosis WBC 24.06, hgb at baseline. Sepsis -pt presents with acute hypoxic failure and elevated WBC, fever, CXR suspicious for recurrent PNA -elevated WBC also explained by chronic steroid use -recently admitted to the hospital for aspiration PNM 02/14-02/16, then again -03/10. -per caregiver, not encephalopathic -lac wnl Plan: -likely stemming from pulmonary source, bacterial vs viral source -continue empiric tx with Vanc/Zosyn to cover for HCAP until MRSA neg -fluids -- LASIX prn HELD. Follow. -O2/BiPAP as needed -blood cx pending -tylenol PRN FEN/GI: IVF maintenance @80ml/hr. DM1 diet, soft diet with thickened liquids and can swallow whole pills DVT ppx: heparin CODE STATUS: DNR as confirmed by caregiver DISPO: Tele (2) Acute on chronic respiratory failure with hypoxemia: scheduled nebs, O2 as needed, stress dose of prednisone to 50mg hydrocortisone TID -Pulm consult placed as they follow her closely, unfortunately may have failed outpatient Levaquin therapy (3) Down syndrome: (4) CAMILLA (obstructive sleep apnea): BiPAP provided (5) Depression: continue home citalopram (6) HLD (hyperlipidemia): cont home statin (7) Type 1 diabetes: continue home pump, continue home Basal insulin (8) Hypothyroidism: cont home synthroid (9) Leucocytosis: likely 2/2 chronic steroid use (10) DVT prophylaxis: ordered History of Present Illness Chief Complaint: acute hypoxic resp failure, fever Primary Care Provider: Vladimir Lucio MD 52 y/o F with a complex medical history including Down syndrome, DM, HLD, hypothyroidism, pulmonary HTN, tracheal stenosis with permanent tracheostomy, recurrent aspiration pneumonia, chronic hypoxic respiratory failure - 2L 02 at rest, 4L O2 with activity/nocturnal, CAMILLA. The pt was recently admitted to the hospital for aspiration PNM 02/14-02/16, then again 03/07-03/10. Since one week ago, pt has felt ill, +cough and thick green mucous was draining from her trach. Was seen by her bench lay out technician in the clinic and started on Levaquin. Since then has complained of some nausea. Today spiked a fever 103, tylenol given. Saturating 88% on 4L, and so presented to the ED. History reported by caregiver named Jaleesa at bedside. Denies lethargy, vomiting, diarrhea, constipation. Endorses sick contact at her facility who was diagnosed with viral URI and treated conservatively. Endorses poor appetite. "Today is the first time she's spiked a fever in months". 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 Does not drink or smoke ED course: given fluids, supplemental O2 via trach currently satting 95% on 11L. BP lower than baseline. Fluid boluses given. Vanc zosyn begun. CBC remarkable for leukocytosis WBC 24.06, hgb at baseline. Allergies Allergy/AdvReac Type Severity Reaction Status Date / Time Cephalosporins Allergy Intermediate rash per Verified 03/31/18 12:58 mother cefaclor Allergy Unknown HIVES Verified 03/31/18 12:59 sertraline Allergy Unknown INTOLERANCE Verified 03/31/18 13:13 Home Medications Home Medications Medication Instructions Recorded Confirmed Type albuterol sulfate 1 neb INHALATION TID 02/13/18 04/15/18 History atorvastatin 10 mg PO HS 02/13/18 04/15/18 History calcium carbonate [Oyster Shell 500 mg PO BIDM 02/13/18 04/15/18 History Calcium 500] citalopram 40 mg PO QAM 02/13/18 04/15/18 History clotrimazole 1 applic TOPICAL TID PRN 02/13/18 04/15/18 History glucagon (human recombinant) 1 mg IM DIRECTED PRN 02/13/18 04/15/18 History [Glucagon Emergency Kit (human)] montelukast 10 mg PO PM 02/13/18 04/15/18 History omeprazole 20 mg PO QAM 02/13/18 04/15/18 History promethazine 12.5 mg PO Q8H PRN 02/13/18 04/15/18 History starch (thickening) [Thick-It] 1 packet PO DAILY 02/13/18 04/15/18 History acetylcysteine 4 ml INHALATION BID 03/07/18 04/15/18 History fexofenadine [Danielle Allergy] 180 mg PO HS 03/07/18 04/15/18 History insulin aspart U-100 0 unit CONTINUOUS SUBCUTANEOUS 03/07/18 04/15/18 History INFUSION UD acetaminophen [Mapap 650 mg PO Q4H PRN #30 tab 03/10/18 04/15/18 Rx (acetaminophen)] prednisone 10 mg PO BID #7 tab 03/10/18 04/15/18 Rx fluconazole 150 mg PO DIRECTED 04/15/18 04/15/18 History fluoride (sodium) [Phos-Flur] 15 ml DENTAL HS 04/15/18 04/15/18 History fluticasone-vilanterol [Breo 1 inh INHALATION DAILY 04/15/18 04/15/18 History Ellipta] furosemide [Lasix] 20 mg PO DAILY PRN 04/15/18 04/15/18 History insulin glargine [Basaglar KwikPen 25 - 30 unit SUBCUT DAILY 04/15/18 04/15/18 History U-100 Insulin] levothyroxine 150 mcg PO DAILY 04/15/18 04/15/18 History multivitamin,ua-mzmo-pbmwuqal 1 tab PO DAILY 04/15/18 04/15/18 History [Therems-M] Past Med/Surg History Social History Current Living Situation: Other Current Living Situation Comment: half-way Feels Safe at Home: Yes Smoking Status: Never smoker Second Hand Exposure: No Hx Alcohol Use: No Hx Substance Use: No Beliefs That Will Affect Care: None Preferred Language: Faroese Review of Systems All systems reviewed & are unremarkable except as noted in HPI & below Physical Exam 2 Vital Signs (Past 24 Hours): Last Vital Signs Temp 38.1 C H 04/15/18 03:09 Pulse 72 04/15/18 04:00 Resp 20 04/15/18 04:00 BP 84/62 L 04/15/18 04:00 Pulse Ox 95 04/15/18 04:00 Physical Exam: Vitals noted as above and fever and hypotension noted. GENERAL: Somnolent but arousable, in no distress HENT: Downs facies, atraumatic. cannula in place via trach. Green dried mucous surrounding trach, no visible redness or rash surrounding trach. EYES: Normal conjunctiva. Sclera non-icteric. EOMI. NECK: Supple. Full range of motion. no JVD RESPIRATORY: Clear to auscultation. CARDIAC: Regular rate, normal rhythm. Extremities warm and well perfused. Pulses equal. ABDOMEN: Soft, non-distended. No tenderness to palpation. No rebound or guarding. No masses. Bowel sounds are normal. LOWER EXTREMITIES: Calves are equal size bilaterally and non-tender. No edema. No discoloration. NEURO: No gross focal motor deficits noted. SKIN: Rash not present. No jaundice noted. LINES: right sided infuse a port, subcu glucose monitor in right arm Results & Data Laboratory Results 04/15/18 04/15/18 04/15/18 Range/Units 04:14 03:25 03:25 WBC (4.8-10.8) K/uL RBC (4.2-5.4) M/uL Hgb (12.0-16.0) g/dL Hct (37-47) % MCV (80-100) fL MCH (25-34) pg MCHC (32-36) g/dL RDW Std Deviation (36.4-46.3) fL RDW Coeff of Jackie (11.5-14.5) % Plt Count (130-400) K/uL MPV (7.4-10.4) fL Immature Gran % (Auto) % Neut % (Auto) % Lymph % (Auto) % [place] % (Auto) % Eos % (Auto) % Baso % (Auto) % Immature Gran # (Auto) (0.00-0.02) K/uL Neut # (Auto) (1.4-6.5) K/uL Lymph # (Auto) (1.2-3.4) K/uL [place] # (Auto) (0.11-0.59) K/uL Eos # (Auto) (0-0.5) K/uL Baso # (Auto) (0-0.2) K/uL RBC Morphology Sodium 138 (136-145) mmol/L Potassium 3.9 (3.5-5.1) mmol/L Chloride 103 (98-107) mmol/L Carbon Dioxide 32 (21-32) mmol/L Anion Gap 3.0 (3-11) BUN 18 (7-18) mg/dl Creatinine 1.06 (0.6-1.2) mg/dl Est Cr Clr Drug Dosing Not Reportable Est GFR ( Amer) 69.4 Est GFR (Non-Af Amer) 59.9 BUN/Creatinine Ratio 17.4 (10-20) Glucose 158 H (70-99) mg/dl POC Glucose 147 H (70-99) Lactate 1.8 (0.4-2.0) mmol/L Calcium 8.7 (8.5-10.1) mg/dl Troponin I < 0.015 (0-0.045) ng/ml Influenza Type A (PCR) (Neg) Influenza Type B (PCR) (Neg) 04/15/18 04/15/18 Range/Units 03:25 03:10 WBC 24.06 H (4.8-10.8) K/uL RBC 3.48 L (4.2-5.4) M/uL Hgb 11.8 L (12.0-16.0) g/dL Hct 36.1 L (37-47) % MCV 103.7 H (80-100) fL MCH 33.9 (25-34) pg MCHC 32.7 (32-36) g/dL RDW Std Deviation 51.2 H (36.4-46.3) fL RDW Coeff of Jackie 13.6 (11.5-14.5) % Plt Count 174 (130-400) K/uL MPV 10.1 (7.4-10.4) fL Immature Gran % (Auto) 0.5 % Neut % (Auto) 88.0 % Lymph % (Auto) 5.2 % [place] % (Auto) 6.2 % Eos % (Auto) 0.0 % Baso % (Auto) 0.1 % Immature Gran # (Auto) 0.12 H (0.00-0.02) K/uL Neut # (Auto) 21.17 H (1.4-6.5) K/uL Lymph # (Auto) 1.25 (1.2-3.4) K/uL [place] # (Auto) 1.50 H (0.11-0.59) K/uL Eos # (Auto) 0.00 (0-0.5) K/uL Baso # (Auto) 0.02 (0-0.2) K/uL RBC Morphology Unremarkable Sodium (136-145) mmol/L Potassium (3.5-5.1) mmol/L Chloride (98-107) mmol/L Carbon Dioxide (21-32) mmol/L Anion Gap (3-11) BUN (7-18) mg/dl Creatinine (0.6-1.2) mg/dl Est Cr Clr Drug Dosing Est GFR ( Amer) Est GFR (Non-Af Amer) BUN/Creatinine Ratio (10-20) Glucose (70-99) mg/dl POC Glucose (70-99) Lactate (0.4-2.0) mmol/L Calcium (8.5-10.1) mg/dl Troponin I (0-0.045) ng/ml Influenza Type A (PCR) Neg for Influ A (Neg) Influenza Type B (PCR) Neg for Influ B (Neg) Diagnostic Findings CXR shows stable left basilar opacity. Increased right basilar opacity. RT A- port catheter Medications Administered fluids, vanc, zosyn Code Status & VTE Plan Code Status DNR VTE Prophylaxis Plan VTE Prophylaxis will be ordered: Yes Supervising Physician Co-Signing Physician Notes 52 y/o F Hx Down syndrome, DM, HLD, hypothyroidism, pulmonary HTN, tracheal stenosis/tracheostomy, recurrent aspiration pneumonia and chronic hypoxic respiratory failure - dependent on 2L 02. The pt was recently admitted to the hospital for aspiration PNM 03/07-03/10. Recently placed on Levaquin in the outpt setting for presumed recurrence. Presents with a cough, fever of 103 and hypoxia. An initial CXR shows a large LLL PNM. The pt was borderline hypotensive on arrival to the ER although she appears to be responding to fluid. OE: AAO - no distress S1,2 R BL crackles at bases - reduced air entry at LLL NT, ND, BS+ No CCE No deficits P: We will treat for HCAP/aspiration with Zosyn and Vanc She is prednisone-dependent so we will start stress dosing which may help her BP Placed on a SS for DM Cont Synthroid Resident Activity Tracking Resident Involvement: Resident Care Provided Care Provided: Adult Hospital Medicine _ (1) Leucocytosis Leukocytosis type: unspecified Qualified Code(s): D72.829 - Elevated white blood cell count, unspecified (2) Sepsis Sepsis type:
--- NOTE | 2018-04-15 06:48 | Emergency Department Note ---
Entered by Raz Bains acting as a scribe for ED Provider Note Name: Valorie Early Age: 52 Arrives Via: Private vehicle Informant: Patient and nursing slab lifting supervisor CC: Fever HPI: The patient is a 52 year old female who presents to the ED via EMS with her nursing slab lifting supervisor due to complaints of a constant fever that began a couple of days ago. ER nurse states the patients fever was initially 103 but came down to 101 after receiving Tylenol via EMS. Patient states she has also had SOB, abdominal pain, coughing, and feeling diaphoretic. Per nursing slab lifting supervisor, the patients coughing began last week and she was started on Levaquin at that time. Nursing slab lifting supervisor adds that the patients trachea has shown increased yellow mucous recently. She adds that the patient is on 2L oxygen chronically but has recently had to use 4L. Patients past medical history includes diabetes. Patient did get a flu shot this year. Patient denies a runny nose or any other pain. ROS: See above HPI for pertinent positives & negatives. A total of 10 systems reviewed and were otherwise negative. Past Medical History: Diabetes Past Surgical History: Tracheostomy Family History: None Social History: Lives at assisted-living facility Home Medications: None Allergies None Physical: Vitals: BP = 99/69 P = 92 Resp = 21 Temp = 100.6 O2 Sat = 93 Delivery = Nasal Cannula Flow Rate = 4 L/min Exam: GENERAL: Patient is chronically unwell appearing, happy, smiling, and in no acute distress. EYES: No scleral icterus, unremarkable pupils. ENT: Mucous membranes moist, no nasal congestion. NECK: No masses appreciated, no meningismus, trachea midline with moderate exudate around it. RESPIRATORY: No dyspnea. Clear to auscultation and equal bilaterally. No wheeze , no rhonchi. CARDIOVASCULAR: Regular rate and rhythm. No murmurs, rubs, gallops appreciated. GASTROINTESTINAL: Abdomen soft, non-tender, no peritonitis. Bowel sounds positive. No masses appreciated. BACK: No midline tenderness, no CVA tenderness EXTREMITIES: Normal motion all extremities, no cyanosis, no edema. NEUROLOGIC: Alert and oriented, no acute motor or sensory deficits, no focal weakness, cranial nerves grossly intact. SKIN: No rash, no jaundice, no diaphoresis. ED Course: Prior Medical Record, Triage/Nursing Notes, Medications, Allergies reviewed by Me Vital Signs: reviewed and remarkable for hypotension, hypoxia, febrile Labs: Reviewed and remarkable for leukocytosis, normal la Interventions: saline lock, nss bolus 1.5 L IV, Vanco IV, Zosyn IV Imaging: X ray results are stated below per my interpretation: Chest: 1 view: RLL infiltrate new from previous CXR Consults: 0408: I reviewed the patient's case with [place]. [place] [facility] [place] will evaluate the patient for further management. Times: 0313: Past medical records reviewed. The patient was evaluated in room B4 , and a complete history and physical examination were performed. 0410: I reevaluated the patient. After receiving 1L of normal saline the patient 's blood pressure has improved and the patient is breathing comfortably. I updated the patient on her findings and treatment plan. Patient will be assessed for further evaluation. Blood pressure: Hypotensive. No Referral necessary Disposition: Hospitalization. Prescriptions: None. Differentials: Viral, Pharyngitis, Cellulitis, Pneumonia, Influenza, Meningitis , Sepsis, Bacteremia, UTI/Pyelonephritis, Endocrine, Toxicologic, amongst other pathologies. Medical Decision Making: Chronically unwell 52 yr old female with frequent admission for respiratory issues arrives for evaluation of fever. Cough and unwell appearing with RLL decreased breath sounds. Febrile, WBC elevation and hypotension. BP improved to her baseline and fluid bolus. Initial LA normal. Given empiric Zosyn/Vanc as already on Levaquin/Amox. She is comfortable and in no distress throughout. Hospitalist consulted who will bring in for further management. She has no evidence meningitis. With improving BP to her baseline I do not feel pressors necessary at this time. Abdomen soft. No evidence cellulitis. Impression: Pneumonia of right lower lobe due to unknown bacteria Sepsis Critical Care Time: I have personally spent greater than 30 minutes of critical care time in the direct management of this patient. Sepsis secondary to pneumonia resulting in hypotension. This was a life/limb threatening event. This includes time spent evaluating patient, direct bedside care, chart review, placing orders, interpretation of diagnostic studies, discussion with consultants, patient, and family members, as well as other required patient management activities. This 30 minutes is in excess of all separately billable procedures. Benitez May MD The scribe's documentation has been prepared under my direction and personally reviewed by me in its entirety. I confirm that the note above accurately reflects all work, treatment, procedures, and medical decision making performed by me. Impression & Plan Pneumonia, Sepsis Past Med/Surg History Social History Current Living Situation: Other Current Living Situation Comment: senior care Feels Safe at Home: Yes Smoking Status: Never smoker Second Hand Exposure: No Hx Alcohol Use: No Hx Substance Use: No Beliefs That Will Affect Care: None Preferred Language: Romanian Results & Data Vital Signs Vital Signs - 24 hr 04/15/18 03:09 04/15/18 03:12 04/15/18 03:28 Temperature 38.1 C H Temperature Source Oral Sepsis Recent Fever Within 48 Hours Yes Sepsis New/Unexplained Change in Mental Status Yes Sepsis Action Taken by Nursing Physician Notified Pulse Rate 88 80 94 H Pulse Rate [Apical] Respiratory Rate 21 21 15 Respiratory Effort / Characteristics Non-Labored Respiratory Depth Normal Blood Pressure 79/38 L 79/38 L 95/63 L Blood Pressure [Left Arm] Blood Pressure Mean 51 51 73 Blood Pressure Mean [Left Arm] Blood Pressure Position [Left Arm] Pulse Oximetry 92 93 97 Oxygen Delivery Method Nasal Cannula Trach Collar Oxygen Flow Rate 3 Fraction of Inspired Oxygen SaO2/FiO2 Ratio 04/15/18 03:31 04/15/18 03:45 04/15/18 04:00 Temperature Temperature Source Sepsis Recent Fever Within 48 Hours Sepsis New/Unexplained Change in Mental Status Sepsis Action Taken by Nursing Pulse Rate Pulse Rate [Apical] 92 H 72 Respiratory Rate 21 20 Respiratory Effort / Characteristics Respiratory Depth Blood Pressure 99/69 L Blood Pressure [Left Arm] 99/69 L 84/62 L Blood Pressure Mean 79 Blood Pressure Mean [Left Arm] 79 69 Blood Pressure Position [Left Arm] Pulse Oximetry 92 93 95 Oxygen Delivery Method Trach Collar Nasal Cannula Trach Collar Oxygen Flow Rate 4 Fraction of Inspired Oxygen 40 SaO2/FiO2 Ratio 237 04/15/18 04:01 04/15/18 04:31 04/15/18 04:57 Temperature Temperature Source Sepsis Recent Fever Within 48 Hours Sepsis New/Unexplained Change in Mental Status Sepsis Action Taken by Nursing Pulse Rate Pulse Rate [Apical] 71 Respiratory Rate 20 Respiratory Effort / Characteristics Respiratory Depth Blood Pressure 84/62 L 92/62 L Blood Pressure [Left Arm] 92/62 L Blood Pressure Mean 69 72 Blood Pressure Mean [Left Arm] 72 Blood Pressure Position [Left Arm] Lying Pulse Oximetry 97 95 95 Oxygen Delivery Method Trach Collar Trach Collar Room Air Oxygen Flow Rate Fraction of Inspired Oxygen SaO2/FiO2 Ratio 04/15/18 05:01 04/15/18 05:31 04/15/18 06:01 Temperature Temperature Source Sepsis Recent Fever Within 48 Hours Sepsis New/Unexplained Change in Mental Status Sepsis Action Taken by Nursing Pulse Rate Pulse Rate [Apical] Respiratory Rate Respiratory Effort / Characteristics Respiratory Depth Blood Pressure 90/62 L 83/60 L 88/62 L Blood Pressure [Left Arm] Blood Pressure Mean 71 67 70 Blood Pressure Mean [Left Arm] Blood Pressure Position [Left Arm] Pulse Oximetry 95 94 92 Oxygen Delivery Method Trach Collar Trach Collar Oxygen Flow Rate Fraction of Inspired Oxygen SaO2/FiO2 Ratio Laboratory Data Result diagrams: 04/15/18 03:25 04/15/18 03:25 Lab Results 04/15/18 04/15/18 04/15/18 Range/Units 03:10 03:25 03:25 WBC 24.06 H (4.8-10.8) K/uL RBC 3.48 L (4.2-5.4) M/uL Hgb 11.8 L (12.0-16.0) g/dL Hct 36.1 L (37-47) % MCV 103.7 H (80-100) fL MCH 33.9 (25-34) pg MCHC 32.7 (32-36) g/dL RDW Std Deviation 51.2 H (36.4-46.3) fL RDW Coeff of Jackie 13.6 (11.5-14.5) % Plt Count 174 (130-400) K/uL MPV 10.1 (7.4-10.4) fL Immature Gran % (Auto) 0.5 % Neut % (Auto) 88.0 % Lymph % (Auto) 5.2 % [place] % (Auto) 6.2 % Eos % (Auto) 0.0 % Baso % (Auto) 0.1 % Immature Gran # (Auto) 0.12 H (0.00-0.02) K/uL Neut # (Auto) 21.17 H (1.4-6.5) K/uL Lymph # (Auto) 1.25 (1.2-3.4) K/uL [place] # (Auto) 1.50 H (0.11-0.59) K/uL Eos # (Auto) 0.00 (0-0.5) K/uL Baso # (Auto) 0.02 (0-0.2) K/uL RBC Morphology Unremarkable Sodium 138 (136-145) mmol/L Potassium 3.9 (3.5-5.1) mmol/L Chloride 103 (98-107) mmol/L Carbon Dioxide 32 (21-32) mmol/L Anion Gap 3.0 (3-11) BUN 18 (7-18) mg/dl Creatinine 1.06 (0.6-1.2) mg/dl Est Cr Clr Drug Dosing Not Reportable Est GFR ( Amer) 69.4 Est GFR (Non-Af Amer) 59.9 BUN/Creatinine Ratio 17.4 (10-20) Glucose 158 H (70-99) mg/dl POC Glucose (70-99) Lactate (0.4-2.0) mmol/L Calcium 8.7 (8.5-10.1) mg/dl Troponin I < 0.015 (0-0.045) ng/ml Influenza Type A (PCR) Neg for Influ A (Neg) Influenza Type B (PCR) Neg for Influ B (Neg) 04/15/18 04/15/18 Range/Units 03:25 04:14 WBC (4.8-10.8) K/uL RBC (4.2-5.4) M/uL Hgb (12.0-16.0) g/dL Hct (37-47) % MCV (80-100) fL MCH (25-34) pg MCHC (32-36) g/dL RDW Std Deviation (36.4-46.3) fL RDW Coeff of Jackie (11.5-14.5) % Plt Count (130-400) K/uL MPV (7.4-10.4) fL Immature Gran % (Auto) % Neut % (Auto) % Lymph % (Auto) % [place] % (Auto) % Eos % (Auto) % Baso % (Auto) % Immature Gran # (Auto) (0.00-0.02) K/uL Neut # (Auto) (1.4-6.5) K/uL Lymph # (Auto) (1.2-3.4) K/uL [place] # (Auto) (0.11-0.59) K/uL Eos # (Auto) (0-0.5) K/uL Baso # (Auto) (0-0.2) K/uL RBC Morphology Sodium (136-145) mmol/L Potassium (3.5-5.1) mmol/L Chloride (98-107) mmol/L Carbon Dioxide (21-32) mmol/L Anion Gap (3-11) BUN (7-18) mg/dl Creatinine (0.6-1.2) mg/dl Est Cr Clr Drug Dosing Est GFR ( Amer) Est GFR (Non-Af Amer) BUN/Creatinine Ratio (10-20) Glucose (70-99) mg/dl POC Glucose 147 H (70-99) Lactate 1.8 (0.4-2.0) mmol/L Calcium (8.5-10.1) mg/dl Troponin I (0-0.045) ng/ml Influenza Type A (PCR) (Neg) Influenza Type B (PCR) (Neg) Administered Medications Discontinued Medications Sodium Chloride (Nss 1000ml) 1,000 mls @ 999 mls/hr IV .Q1H1M ONE Stop: 04/15/18 04:18 Last Infusion: 04/15/18 05:27 Dose: 0 mls/hr Infusion: 04/15/18 04:35 Dose: 999 mls/hr Infusion: 04/15/18 04:04 Dose: 0 mls/hr Admin: 04/15/18 03:46 Dose: 999 mls/hr Piperacillin Sod/Tazobactam Sod (Zosyn) 4.5 gm in 120 mls @ 240 mls/hr IV NOW ONE Stop: 04/15/18 04:12 Last Infusion: 04/15/18 04:35 Dose: 0 mls/hr Admin: 04/15/18 04:02 Dose: 240 mls/hr Vancomycin HCl 1,250 mg/ (Sodium Chloride) 525 mls @ 200 mls/hr IV NOW ONE Stop: 04/15/18 06:37 Last Admin: 04/15/18 04:52 Dose: 200 mls/hr Sodium Chloride (Nss 1000ml) 500 mls @ 999 mls/hr IV .Q31M ONE Stop: 04/15/18 04:40 Last Infusion: 04/15/18 05:10 Dose: 0 mls/hr Admin: 04/15/18 04:33 Dose: 999 mls/hr Discharge Plan Visit Data *Final* Discharge Date/Time: 04/15/18 06:03 Chief Complaint: Fever Stated Complaint: FEVER ED Provider: Benitez May Discharge Problem: Pneumonia, Sepsis Patient Disposition: Admitted As Inpatient Discharge Instructions Interventions: ED Discharge Assessment Last Done: 04/15/18 06:03 The scribe's documentation has been prepared under my direction and personally reviewed by me in its entirety. I confirm that the note above accurately reflects all work, treatment, procedures, and medical decision making performed by me.
[2018-04-15] MEDS ORDERED: ACETAMINOPHEN 325 MG TAB PO PRN (07:12)
[2018-04-15] MEDS ORDERED: NON-FORMULARY MEDICATION (Insulin Aspart Per Unit 0 UNITS) Continuous Subcutaneous Infusion SCH (07:12)
[2018-04-15] MEDS ORDERED: GLUCOSE 40% GEL 15 GM TUBE PO PRN (07:12)
[2018-04-15] MEDS ORDERED: DEXTROSE 50% 50 ML SYRINGE IV PRN (07:12)
[2018-04-15] MEDS ORDERED: POLYETHYLENE (MIRALAX) 17 GM PACK PO PRN (07:12)
[2018-04-15] MEDS ORDERED: PROMETHAZINE HCL 25 MG TAB PO PRN (07:12)
[2018-04-15] MEDS ORDERED: CARBOHYDRATES FOR HYPOGLYCEMIA PO PRN (07:12)
[2018-04-15] MEDS ORDERED: GLUCOSE 10 TABS/TUBE PO PRN (07:12)
[2018-04-15] MEDS ORDERED: CLOTRIMAZOLE 1% CR 15 GM TUBE TOP PRN (07:12)
[2018-04-15] MEDS ORDERED: GLUCAGON FOR INJ 1 MG VIAL SQ PRN (07:12)
--- NOTE | 2018-04-15 07:35 | XRay Report ---
XR chest 1V portable CLINICAL HISTORY: 52 years-old Female presenting with cough, fever. TECHNIQUE: Portable upright AP view of the chest was obtained. COMPARISON: 03/24/2018. FINDINGS: Tracheostomy tube in place. Right subcutaneous plate and Mediport terminates in the mid SVC. Mediasti nal surgical clips again noted. Right aortic arch noted. Cardiac silhouette mildly enlarged. Interval worsening of bibasilar linear and hazy opacities, right greater than left. Lungs are mildly hyperinf lated. Small right pleural effusion new from prior. No pneumothorax. Osseous structures normal. IMPRESSION: 1. Significant interval worsening of right basilar infiltrates, right greater than left. Aspiration or atelectasis are the primary considerations. Infection cannot be excluded. 2. Mild cardiomegaly with right aortic arch. Electronically signed by: Jamal Christiansen M.D. 04/15/2018 7:34 AM
[2018-04-15] MEDS: SODIUM CHLORIDE 0.9% 1000ML 1,000 ML IV SCH ×2 (08:48→21:54)
[2018-04-15] MEDS ORDERED: PROMETHAZINE HCL 12.5 MG in SODIUM CHLORIDE 0.9% 50 ML IV PRN (08:55)
[2018-04-15] MEDS ORDERED: ALBUTEROL HFA 8 GM INHALER INH SCH (09:00)
[2018-04-15] MEDS ORDERED: HYDROCORTISONE 10 MG TAB PO SCH (09:00)
[2018-04-15] MEDS ORDERED: ENOXAPARIN INJ 30 MG/0.3 ML SYR SQ SCH (09:00)
[2018-04-15] MEDS ORDERED: STARCH PO SCH (09:00)
[2018-04-15] MEDS ORDERED: INSULIN GLARGINE SOLOSTAR 100 UNITS/ML 3 ML PEN SQ SCH ×2 (09:00→09:45)
--- NOTE | 2018-04-15 10:06 | Progress Note ---
Date of Service April 15, 2018 Assessment & Plan (1) Sepsis: - please see Dr. Arias's H&P for full details on history and physical Patient seen and examined at bedside. Case discussed with Dr. Chavira. - Continue zosyn and vancomycin for aspiration pneumonia. - IVF increased from 80 mls/hr to 100 mls/hr - Steroids increased from 50mg PO TID to IV - Lantus decreased from 30 units daily to 18 units given poor PO intake. Anticipate increase in glucose levels with IV steroids, may require insulin drip if they continue to stay elevated - Albuterol nebulizer ordered tid - BiPAP ordered qhs for sleep apnea - Sputum culture ordered Code status: DNR Disposition: remains on telemetry DVT prophylaxis: 5,000 units heparin SQ BID Sepsis type: Supervising Physician Co-Signing Physician Notes Patient seen and examined at the bedside with Dr. Esparza. Agree with history , exam findings, assessment and plan of care. In brief, Ms Early is a 52 year old female with complex medical history including Down syndrome, DM, hypothyroidism, pulmonar HTN, tracheal stenosis; tach, recurrent aspiration and chronic hypoxic respiratory failure (O2 dependent , 2L at home) admitted for failed outpatient treatment of aspiration pneumonia. VS reviewed. Labs and imaging reviewed. Sleepy but arousable today. Basilar crackles. No increased work of breathing. 1. Sepsis secondary to HCAP, aspiration PNA. continue zosyn and vanc. BPs responded nicely to fluid bolus in the ED. mIVFs at 100/hr. 2. chronic respiratory failure. O2 support as needed. keep sats between 88-92%. Steroid dependent. received stress dose. Continue steroids. Appreciate pulm's input on management. albuterol nebs TID. Suptum cx pending. home BiPAP. 3. DM. adjust insulin based on po intake. ssi. Other chronic issues are stable. Continuing home meds. Subjective No complaints this morning. Sleepy but arouable. Physical Exam 2 Vital Signs (Past 24 Hours): Last Vital Signs Temp 36 C L 04/15/18 06:20 Pulse 62 04/15/18 06:20 Resp 24 04/15/18 06:20 BP 70/46 L 04/15/18 06:20 Pulse Ox 92 04/15/18 06:01 Resident Activity Tracking Resident Involvement: Resident Care Provided Care Provided: Adult Hospital Medicine
[2018-04-15] MEDS: ALBUTEROL 0.083% NEBU SOLN 3 ML VIAL NEB SCH ×3 (10:39→23:05)
[2018-04-15] MEDS: ACETYLCYSTEINE 20% INHAL SOLN ***DISPENSED BY RESP. INH SCH ×2 (10:39→14:31)
[2018-04-15] MEDS: LEVOTHYROXINE SODIUM 150 MCG TABLET PO SCH (10:47)
[2018-04-15] MEDS: methylPREDNISolone 50 MG in SYRINGE 0 ML IV SCH ×2 (10:49→17:26)
[2018-04-15] MEDS: CITALOPRAM 40 MG TAB PO SCH (10:53)
[2018-04-15] MEDS: PANTOprazole 40 MG TAB PO SCH (10:54)
[2018-04-15] MEDS: PIPERACILLIN/TAZOBACTAM 3.375 GM in DEXTROSE 5% 100 ML IV SCH ×2 (10:54→17:25)
[2018-04-15] MEDS: CEROVITE ADV FORMULA TAB PO SCH (10:55)
[2018-04-15] MEDS: INSULIN ASPART 100 UNITS/ML 3 ML PEN SC SCH ×3 (12:30→22:32)
--- NOTE | 2018-04-15 14:12 | Consultation Report ---
DATE OF CONSULTATION: 04/15/2018 PULMONARY CONSULTATION TIME: 9:15 a.m. REPORT OF CONSULTATION: The patient was seen in room 108. She is a 52-year-old female who has a history of numerous medical problems. These would include tracheal stenosis with prior tracheostomy, obstructive sleep apnea, chronic hypoxic respiratory failure, chronic recurring aspiration pneumonia, and pulmonary hypertension. She has a history of Down syndrome and she had transposition of the great vessels with aortic relocation surgery. In the past 1 year, she has had approximately 8 admissions, most of which have been for recurring bibasilar pneumonias thought to be secondary to aspiration. [facility] She had been seen in the pulmonary office by Isra Mandujano PA-C on 04/09/2018 with increasing cough and yellow sputum. Levofloxacin was prescribed. Apparently, her symptoms have not improved. The patient herself is a very poor historian. She has been having intermittent fevers. Reportedly, the mucus has been green. Reportedly, she had a temperature of 103 degrees the day prior to this admission. Saturations were lower than normal and reported at 88% on 4 liters. The patient admits to being a little sick in the stomach, but denies that she has vomited. She seems to have generalized malaise. She is not hungry at all. She denies chest pains. She states she has some pain and she points to the upper abdomen in the midline. There were no caregivers or family members present at the time of this evaluation. In the Emergency Room, she was markedly hypotensive. Blood pressure was 79/38. She was given IV fluids. She was given Zosyn and vancomycin. Her blood pressure has improved. PAST SURGICAL HISTORY: 1. Aortic relocation surgery. 2. Tracheostomy. PAST MEDICAL HISTORY: 1. Tracheal stenosis. 2. Obstructive sleep apnea. 3. Chronic hypoxic respiratory failure. 4. Aspiration pneumonia. 5. Pulmonary hypertension. 6. Down syndrome. 7. Diabetes mellitus. 8. Seizure disorder. 9. Hypothyroidism. 10. Hyperlipidemia. 11. Depression. 12. Reflux. 13. Patent foramen ovale. FAMILY HISTORY: I could not find that information and the patient could not provide it. ALLERGIES: CEPHALOSPORINS AND SERTRALINE. REVIEW OF SYSTEMS: Unobtainable other than what was noted above. MEDICATIONS AT HOME: 1. Acetaminophen p.r.n. 2. Acetylcysteine 4 mL b.i.d. 3. Nebs with albuterol t.i.d. 4. Atorvastatin 10 mg at bedtime. 5. Oyster Shell Calcium 500 b.i.d. 6. Citalopram 40 mg daily. 7. Clotrimazole p.r.n. 8. Fexofenadine 180 mg at bedtime. 9. Fluconazole as directed. 10. Breo Ellipta 1 puff daily. 11. Furosemide p.r.n. 12. Glucagon p.r.n. 13. Various types of insulins. 14. Levothyroxine 150 mcg daily. 15. Montelukast 10 mg daily. 16. Omeprazole 20 mg daily. 17. Prednisone - dose not entirely certain. 18. Promethazine p.r.n. PHYSICAL EXAMINATION: GENERAL: The patient is a 52-year-old female who was cooperative. She was awake, but looked a little bit listless. She did not appear in any distress. She verbalized, but only upon questioning. Nursing staff who have seen her multiple times in the past reported that she does not look like herself. VITAL SIGNS: Temperature at 3:00 a.m. was 38.1 and currently is 36. The cardiac rate currently is 60 per minute. Rhythm is regular. Blood pressure is improved to 115/60. Respiratory rate is 24 per minute and not labored. HEENT: Pupils were reactive. There is dry skin noted on the face. Mouth exam showed some white material on the tongue that did not look characteristic for Tammy. It is unknown if she had been drinking something and I suspect that is the issue. She has the typical Down syndrome facies. There is a tracheostomy in place. On the trach collar, there is some mucus that appears to be yellowish. LUNGS: Good breath sounds were heard when the patient took very deep breaths. The breath sounds, however, were decreased at the right lung base. Curiously very few rhonchi or rales were heard. Oxygen saturation was 96% on trach collar 40%. ABDOMEN: Soft. Bowel sounds were present and sounded normal. She complained of slight tenderness with palpation in the epigastrium and in the right upper quadrant. No masses were palpable. EXTREMITIES: Showed no cyanosis, clubbing or edema. LABORATORY DATA: White count today is 24.06. It is noted that almost always she has a leukocytosis and most times it is 19,000 or higher. This is reviewing back to 02/13/2018. Hemoglobin is 11.8 and platelets are 174,000. Electrolytes done today show sodium 138, potassium 3.9, chloride 103, bicarbonate 32. BUN is 18 with creatinine 1.06. Blood sugar was 158. Lactate was 1.8. Calcium 8.7. Troponins were negative. TSH apparently was done as an outpatient on 04/08/2018 and it was low at 0.012. Flu test was negative. Chest x-ray showed right lower lobe infiltrates with lesser left lower lobe infiltrates. Some of this may reflect atelectasis. There is a definite increase in the infiltrates compared with the prior x-ray done on 03/24/2018. Several other x-rays were reviewed including 03/07/2018, 02/15/2018, and 02/13/2018 and these all have shown various degrees of infiltrates typically at the lung bases and typically greater on the right than the left. Blood cultures are pending. IMPRESSION: 1. Bilateral pneumonia - likely related to recurring aspiration. 2. Sepsis. 3. Atelectasis. 4. Hypotension. 5. Status post tracheostomy. 6. Obstructive sleep apnea. COMMENTS AND RECOMMENDATIONS: The patient looks better than expected considering her hypotension that was noted. Also I was expecting her to be more short of breath appearing than what she is. Thus, there may be some improvement. As noted, she has had numerous other admissions for similar problems, the most recent being 03/07/2018 until 03/10/2018 and prior to that 02/14/2018 until 02/16/2018. She did receive Zosyn and vancomycin and I would continue that. She was ordered some IV steroids to cover her for stress in light of the fact she is on chronic steroids. After a day or two, would try and taper these quickly. She needs to have neb treatments ordered and this has been taken care of by Dr. Jansen as we had discussed. Would obtain a sputum culture. The patient takes BiPAP at night and this should be ordered. Hopefully, Respiratory knows her settings. Will follow the patient with you. Thank you for asking me to assist in her care.
[2018-04-15 14:39] LABS: INR 1.1 (0.9-1.1)
--- NOTE | 2018-04-15 15:06 | Pharmacy Report ---
Pharmacy Abx Initial Consult - Date of Service April 15, 2018 - Pharmacy Dosing Scope Date of Consult: 04/15 Consultation requested by: Dr. Churchill is consulted to initiate vancomycin/zosyn IV/PO dosing therapy, order appropriate labs and adjust drug dose/frequency. - Subjective The patient is a 52 year old F admitted on 04/15/18 05:38. - Objective Height: 5 ft Weight: 67 kg Vital Signs (Past 12hrs): Vital Signs Temp Pulse Pulse Resp BP BP Pulse Ox 04/15/18 14:32 54 L 18 93 04/15/18 14:01 53 L 22 108/68 94 04/15/18 13:01 60 28 H 94/68 L 87 L 04/15/18 12:01 61 26 H 109/70 96 04/15/18 11:01 36.7 C 60 12 92/66 L 94 04/15/18 10:47 57 L 25 H 101/63 96 04/15/18 09:01 55 L 24 115/60 96 04/15/18 08:01 59 L 24 109/58 L 94 04/15/18 07:12 04/15/18 06:20 36 C L 62 24 70/46 L 04/15/18 06:01 88/62 L 92 04/15/18 05:31 83/60 L 94 04/15/18 05:01 90/62 L 95 04/15/18 04:57 71 20 92/62 L 95 04/15/18 04:31 92/62 L 95 04/15/18 04:01 84/62 L 97 04/15/18 04:00 72 20 84/62 L 95 04/15/18 03:45 92 H 21 99/69 L 93 04/15/18 03:31 99/69 L 92 04/15/18 03:28 94 H 15 95/63 L 97 04/15/18 03:12 80 21 79/38 L 93 04/15/18 03:09 38.1 C H 88 21 79/38 L 92 Pulse Ox 04/15/18 14:32 04/15/18 14:01 04/15/18 13:01 04/15/18 12:01 04/15/18 11:01 04/15/18 10:47 04/15/18 09:01 04/15/18 08:01 04/15/18 07:12 94 04/15/18 06:20 04/15/18 06:01 04/15/18 05:31 04/15/18 05:01 04/15/18 04:57 04/15/18 04:31 04/15/18 04:01 04/15/18 04:00 04/15/18 03:45 04/15/18 03:31 04/15/18 03:28 04/15/18 03:12 04/15/18 03:09 Lab Results (24hrs): Laboratory Tests (24 Hours) 04/15/18 04/15/18 03:25 03:25 WBC 24.06 H Neut # (Auto) 21.17 H Creatinine 1.06 Est Cr Clr Drug Dosing Not Reportable Micro Results: 04/15/18 03:41 Blood Culture - Pending Blood 04/15/18 03:25 Blood Culture - Pending Blood - Risk Factors for Resistance * Resident in a fdc or extended-care facility * Hospitalization for 48 hours or more within the past 90 days - Assessment & Plan Assessment 52 year old F with history of down syndrome, type 1 diabetes, HLD, hypothyroidism, permanent tracheosotomy with recurrent aspiration pneumonia. Patient presented to the ED with a 1 wekk history of cough and mucus draining from trach- had been started on levofloxacin outpatient. Reported fever of 103 today. CXR suspicious for recurrent pneumonia. WBC elevated at 24. Plan Vancomycin IV * Estimated PK Parameters: Vd 0.7 L/kg, t1/2 12 hr * Loading dose: 1250 mg x 1 * Maintenance dose: 1000 mg q16H- same as previous dosing * Goal trough level 15-20 mcg/mL Piperacillin/tazobactam * 4.5 g bolus administered over 30 minutes, then 3.375 g IV extended infusion every 8 hours for CrCl greater than 20 mL/min Pharmacy will continue to follow and will adjust dose/frequency as necessary. Thank you.
[2018-04-15] MEDS: CALCIUM CARBONATE 1250MG TAB PO SCH (17:27)
[2018-04-15] MEDS ORDERED: PHARMACY GLYCEMIC MGMT CONSULT PRN (21:22)
[2018-04-15] MEDS ORDERED: INSULIN HUMAN REGULAR PER UNIT 1.5 UNITS in SYRINGE 1.485 ML IV SCH (21:45)
[2018-04-15] MEDS: INSULIN REGULAR 250 UNITS in SODIUM CHLORIDE 0.9% 247.5 ML IV SCH (21:55)
[2018-04-15] MEDS: VANCOMYCIN HCL 1,000 MG in SODIUM CHLORIDE 0.9% 250 ML IV SCH (21:55)
[2018-04-15] MEDS: MONTELUKAST SODIUM 10 MG TABLET PO SCH (21:57)
[2018-04-15] MEDS: HEPARIN SOD 5,000 UNIT/0.5 ML VIAL SQ SCH (21:57)
[2018-04-15] MEDS: ATORVASTATIN 10 MG TAB PO SCH (21:58)
[2018-04-15] MEDS: FEXOFENADINE HCL 180 MG TAB PO SCH (21:58)
[2018-04-16] MEDS: ACETYLCYSTEINE 20% INHAL SOLN ***DISPENSED BY RESP. INH SCH ×3 (01:29→22:58)
[2018-04-16] MEDS: PIPERACILLIN/TAZOBACTAM 3.375 GM in DEXTROSE 5% 100 ML IV SCH ×3 (02:32→17:34)
[2018-04-16] MEDS: methylPREDNISolone 50 MG in SYRINGE 0 ML IV SCH ×2 (02:33→10:00)
[2018-04-16 06:24] LABS: Hematocrit (blood only) 35.4 % (37-47); Hemoglobin 11.3 g/dL (12.0-16.0); Immature Granulocytes # (auto) 0.06 K/uL (0.00-0.02); Immature Granulocytes % (auto) 0.3 %; Lymphocytes # (auto) 0.66 K/uL (1.2-3.4); Lymphocytes % (auto) 3.2 %; Mean Corpuscular Hgb Conc 31.9 g/dL (32-36); Mean Corpuscular Volume 102.9 fL (80-100); Monocytes # (auto) 0.18 K/uL (0.11-0.59); Monocytes % (auto) 0.9 %; Neutrophils # (auto) 19.49 K/uL (1.4-6.5); Neutrophils % (auto) 95.6 %; Platelet Count 177 K/uL (130-400); RDW Coefficient of Variation 13.2 % (11.5-14.5); RDW Standard Deviation 49.7 fL (36.4-46.3); Red Blood Count 3.44 M/uL (4.2-5.4); White Blood Count 20.39 K/uL (4.8-10.8)
[2018-04-16 06:56] LABS: BUN Creatinine Ratio 14.9 (10-20); C Reactive Protein 14.9 mg/dl (0-0.29); Calcium 8.3 mg/dl (8.5-10.1); Creatinine Clr Calc Pharmacy 63.9 ml/min; Est GFR (African American) 88.2; Est GFR (Non-African American) 76.1; Potassium 3.9 mmol/L (3.5-5.1)
[2018-04-16] MEDS: ALBUTEROL 0.083% NEBU SOLN 3 ML VIAL NEB SCH ×3 (07:12→22:52)
[2018-04-16] MEDS: PANTOprazole 40 MG TAB PO SCH (07:47)
[2018-04-16] MEDS: CEROVITE ADV FORMULA TAB PO SCH (07:47)
[2018-04-16] MEDS: BREO ELLIPTA INH SCH (07:48)
[2018-04-16] MEDS: CITALOPRAM 40 MG TAB PO SCH (07:48)
[2018-04-16] MEDS: CALCIUM CARBONATE 1250MG TAB PO SCH ×2 (07:48→17:32)
[2018-04-16] MEDS: HEPARIN SOD 5,000 UNIT/0.5 ML VIAL SQ SCH ×2 (07:49→21:08)
[2018-04-16] MEDS: SODIUM CHLORIDE 0.9% 1000ML 1,000 ML IV SCH ×2 (07:50→17:07)
[2018-04-16] MEDS: LEVOTHYROXINE SODIUM 150 MCG TABLET PO SCH (07:50)
[2018-04-16] MEDS ORDERED: MODERATE STRESS LEVEL ONE (08:01)
[2018-04-16] MEDS ORDERED: INSULIN PROTOCOL GOAL RANGE ONE (08:01)
[2018-04-16] MEDS ORDERED: DC ALL PREVIOUSLY ORDERED DIABETES MEDS ONE (08:01)
--- NOTE | 2018-04-16 08:12 | Family Medicine Progress Note ---
Date of Service April 16, 2018 Assessment & Plan (1) Sepsis: Ms. Roca is a 52-year-old female with a complex past medical history including Down syndrome, diabetes mellitus, hyperlipidemia, hypothyroidism, pulmonary hypertension, tracheal stenosis with permanent tracheostomy, recurrent aspiration pneumonia, chronic hypoxic respiratory failure (2L oxygen at rest, 4 L oxygen with activity) Presented to [facility] due to a fever and hypoxia. Patient was recently seen by her biologics specialist in the clinic and started on Levaquin. She has multiple prior admissions to the hospital for aspiration pneumonia, the most recent admissions were on 02/14-02/16 and again on 03/07-03/10. - Continue zosyn and vancomycin for aspiration pneumonia. Patient has a history of pneumonia resistant to Levaquin. - MRSA swab negative - Continue IVF at 100 mls/hr - Steroids decreased from 50mg IV TID to BID - Sputum culture ordered and pending (2) Acute on chronic respiratory failure with hypoxemia: - scheduled nebs, O2 as needed (patient generally sats in the high 90s at home) - Pulmonology following, thank you for recommendations (3) Pneumonia: - Per discussion with family, patient has a chronic aspiration risk. Family was offered placement of a feeding tube, however they declined. - Family agreeable to see speech therapist for further recommendations about diet alterations - Management as above (4) Type 1 diabetes: - has an insulin pump at home - glucose levels elevated to 376 while on steroids - per pharmacy, patient generally requires an insulin drip when she is placed on IV steroids - Insulin drip initiated today, glucose levels have been in the 200s since - Will transition back to home regimen once steroids have decreased (5) HLD (hyperlipidemia): - cont home statin (6) Depression: - continue home citalopram (7) CAMILLA (obstructive sleep apnea): - nocturnal Bipap (8) Hypothyroidism: - continue home synthroid Code status: DNR Disposition: remains on telemetry DVT prophylaxis: 5,000 units heparin SQ BID Supervising Physician Co-Signing Physician Notes Patient seen and examined at the bedside with Dr. Esparza. Agree with history , exam findings, assessment and plan of care. In brief, Ms Early is a 52 year old female with complex medical history including Down syndrome, DM, hypothyroidism, pulmonar HTN, tracheal stenosis; tach, recurrent aspiration and chronic hypoxic respiratory failure (O2 dependent , 2L at home) admitted for failed outpatient treatment of aspiration pneumonia. VS reviewed. Labs and imaging reviewed. Sleepy but arousable today. Basilar crackles. No increased work of breathing. On trach collar. Sats are appropriate. 1. Sepsis secondary to HCAP, aspiration PNA. continue zosyn and vanc. BPs responded nicely to fluid bolus in the ED. mIVFs at 100/hr. Of note, she has a hx of levaquin resistant pneumonia so would avoid in the future. 2. chronic respiratory failure. O2 support as needed. keep sats between 88-92%. Steroid dependent. received stress dose. Continue steroids. Appreciate pulm recommendations. albuterol nebs TID. Suptum cx pending. home BiPAP. 3. DM now with hyperglycemia secondary to steroids. insulin gtt. Other chronic issues are stable. Continuing home meds. Subjective Ms. Early reports her breathing feels okay today. She states that she is hungry, and is eager for lunch. She has no other concerns at this time, denies being in any pain. Constitutional: + fatigue; no fever Respiratory: + cough Cardiovascular: no chest pain Gastrointestinal: no abdominal pain and no vomiting Physical Exam 2 Vital Signs (Past 24 Hours): Last Vital Signs Temp 37.1 C 04/16/18 03:08 Pulse 42 L 04/16/18 07:14 Resp 16 04/16/18 07:14 BP 112/67 04/16/18 03:08 Pulse Ox 94 04/16/18 07:14 Constitutional: WD/WN, vitals as above Respiratory: normal respiratory effort; no respiratory distress Good air entry with auscultation of the upper parts of the lung. Breath sounds coarse at lung bases, particularly over right lung base Gastrointestinal (Abdomen): normal bowel sounds, soft, nontender, no hepatosplenomegaly Results & Data Laboratory Results Laboratory Results - last 24 hr 04/15/18 04/15/18 04/15/18 06:37 14:06 16:28 WBC RBC Hgb Hct MCV MCH MCHC RDW Std Deviation RDW Coeff of Jackie Plt Count MPV Immature Gran % (Auto) Neut % (Auto) Lymph % (Auto) Lamb % (Auto) Eos % (Auto) Baso % (Auto) Immature Gran # (Auto) Neut # (Auto) Lymph # (Auto) Lamb # (Auto) Eos # (Auto) Baso # (Auto) PT 11.0 INR 1.1 Sodium Potassium Chloride Carbon Dioxide Anion Gap BUN Creatinine Est Cr Clr Drug Dosing Est GFR ( Amer) Est GFR (Non-Af Amer) BUN/Creatinine Ratio Glucose POC Glucose 260 H Calcium C-Reactive Protein Nasal Screen MRSA (PCR) Negative 04/15/18 04/15/18 04/15/18 20:38 21:48 22:54 WBC RBC Hgb Hct MCV MCH MCHC RDW Std Deviation RDW Coeff of Jackie Plt Count MPV Immature Gran % (Auto) Neut % (Auto) Lymph % (Auto) Lamb % (Auto) Eos % (Auto) Baso % (Auto) Immature Gran # (Auto) Neut # (Auto) Lymph # (Auto) Lamb # (Auto) Eos # (Auto) Baso # (Auto) PT INR Sodium Potassium Chloride Carbon Dioxide Anion Gap BUN Creatinine Est Cr Clr Drug Dosing Est GFR ( Amer) Est GFR (Non-Af Amer) BUN/Creatinine Ratio Glucose POC Glucose 306 H 376 H* 315 H Calcium C-Reactive Protein Nasal Screen MRSA (PCR) 04/15/18 04/16/18 04/16/18 23:54 00:56 01:55 WBC RBC Hgb Hct MCV MCH MCHC RDW Std Deviation RDW Coeff of Jackie Plt Count MPV Immature Gran % (Auto) Neut % (Auto) Lymph % (Auto) Lamb % (Auto) Eos % (Auto) Baso % (Auto) Immature Gran # (Auto) Neut # (Auto) Lymph # (Auto) Lamb # (Auto) Eos # (Auto) Baso # (Auto) PT INR Sodium Potassium Chloride Carbon Dioxide Anion Gap BUN Creatinine Est Cr Clr Drug Dosing Est GFR ( Amer) Est GFR (Non-Af Amer) BUN/Creatinine Ratio Glucose POC Glucose 292 H 315 H 298 H Calcium C-Reactive Protein Nasal Screen MRSA (PCR) 04/16/18 04/16/18 04/16/18 03:05 04:01 04:53 WBC RBC Hgb Hct MCV MCH MCHC RDW Std Deviation RDW Coeff of Jackie Plt Count MPV Immature Gran % (Auto) Neut % (Auto) Lymph % (Auto) Lamb % (Auto) Eos % (Auto) Baso % (Auto) Immature Gran # (Auto) Neut # (Auto) Lymph # (Auto) Lamb # (Auto) Eos # (Auto) Baso # (Auto) PT INR Sodium Potassium Chloride Carbon Dioxide Anion Gap BUN Creatinine Est Cr Clr Drug Dosing Est GFR ( Amer) Est GFR (Non-Af Amer) BUN/Creatinine Ratio Glucose POC Glucose 266 H 269 H 253 H Calcium C-Reactive Protein Nasal Screen MRSA (PCR) 04/16/18 04/16/18 04/16/18 05:41 05:41 06:05 WBC 20.39 H RBC 3.44 L Hgb 11.3 L Hct 35.4 L MCV 102.9 H MCH 32.8 MCHC 31.9 L RDW Std Deviation 49.7 H RDW Coeff of Jackie 13.2 Plt Count 177 MPV 11.0 H Immature Gran % (Auto) 0.3 Neut % (Auto) 95.6 Lymph % (Auto) 3.2 Lamb % (Auto) 0.9 Eos % (Auto) 0.0 Baso % (Auto) 0.0 Immature Gran # (Auto) 0.06 H Neut # (Auto) 19.49 H Lymph # (Auto) 0.66 L Lamb # (Auto) 0.18 Eos # (Auto) 0.00 Baso # (Auto) 0.00 PT INR Sodium 139 Potassium 3.9 Chloride 105 Carbon Dioxide 29 Anion Gap 5.0 BUN 13 Creatinine 0.87 Est Cr Clr Drug Dosing 63.9 Est GFR ( Amer) 88.2 Est GFR (Non-Af Amer) 76.1 BUN/Creatinine Ratio 14.9 Glucose 254 H POC Glucose 234 H Calcium 8.3 L C-Reactive Protein 14.90 H Nasal Screen MRSA (PCR) 04/16/18 04/16/18 04/16/18 06:58 09:11 09:38 WBC RBC Hgb Hct MCV MCH MCHC RDW Std Deviation RDW Coeff of Jackie Plt Count MPV Immature Gran % (Auto) Neut % (Auto) Lymph % (Auto) Lamb % (Auto) Eos % (Auto) Baso % (Auto) Immature Gran # (Auto) Neut # (Auto) Lymph # (Auto) Lamb # (Auto) Eos # (Auto) Baso # (Auto) PT INR Sodium Potassium Chloride Carbon Dioxide Anion Gap BUN Creatinine Est Cr Clr Drug Dosing Est GFR ( Amer) Est GFR (Non-Af Amer) BUN/Creatinine Ratio Glucose POC Glucose 239 H 315 H 310 H Calcium C-Reactive Protein Nasal Screen MRSA (PCR) 04/16/18 04/16/18 04/16/18 10:27 11:28 12:28 WBC RBC Hgb Hct MCV MCH MCHC RDW Std Deviation RDW Coeff of Jackie Plt Count MPV Immature Gran % (Auto) Neut % (Auto) Lymph % (Auto) Lamb % (Auto) Eos % (Auto) Baso % (Auto) Immature Gran # (Auto) Neut # (Auto) Lymph # (Auto) Lamb # (Auto) Eos # (Auto) Baso # (Auto) PT INR Sodium Potassium Chloride Carbon Dioxide Anion Gap BUN Creatinine Est Cr Clr Drug Dosing Est GFR ( Amer) Est GFR (Non-Af Amer) BUN/Creatinine Ratio Glucose POC Glucose 296 H 241 H 266 H Calcium C-Reactive Protein Nasal Screen MRSA (PCR) Medications Administered Current Inpatient Medications Acetaminophen (Tylenol) 650 mg PO Q4H PRN PRN Reason: fever or pain Stop: 05/15/18 07:11 Acetylcysteine (Mucomyst 20%) 4 ml INH BID [facility] Stop: 05/15/18 08:59 Last Admin: 04/16/18 07:12 Dose: 4 ml Albuterol (Ventolin 0.083% 2.5mg/3ml) 2.5 mg NEB Q8R [facility] Stop: 05/15/18 09:29 Last Admin: 04/16/18 07:12 Dose: 2.5 mg Atorvastatin Calcium (Lipitor) 10 mg PO HS [facility] Stop: 05/15/18 20:59 Last Admin: 04/15/18 21:58 Dose: 10 mg Calcium Carbonate (Os-Eliceo 500) 1,250 mg PO BIDM [facility] Stop: 05/15/18 16:59 Last Admin: 04/16/18 07:48 Dose: 1,250 mg Citalopram Hydrobromide (Celexa) 40 mg PO QAM [facility] Stop: 05/15/18 08:59 Last Admin: 04/16/18 07:48 Dose: 40 mg Clotrimazole (Lotrimin 1%) 1 appln TOP TID PRN PRN Reason: Rash Stop: 05/15/18 07:11 Dextrose (Dextrose 50%) 25 - 50 ml IV UD PRN; Protocol PRN Reason: Hypoglycemia Protocol Stop: 05/15/18 07:11 Fexofenadine HCl (Danielle) 180 mg PO HS [facility] Stop: 05/15/18 20:59 Last Admin: 04/15/18 21:58 Dose: 180 mg Glucagon (Glucagen) 1 mg SQ UD PRN; Protocol PRN Reason: Hypoglycemia Protocol Stop: 05/15/18 07:11 Glucose (Glucose 40%) 15 - 30 gm PO UD PRN; Protocol PRN Reason: Hypoglycemia Protocol Stop: 05/15/18 07:11 Glucose (Dex4 Glucose) 4 - 8 tabs PO UD PRN; Protocol PRN Reason: Hypoglycemia Protocol Stop: 05/15/18 07:11 Heparin Sodium (Porcine) (Heparin Sodium (Porcine)) 5,000 units SQ Q12 [facility] Stop: 05/15/18 20:59 Last Admin: 04/16/18 07:49 Dose: 5,000 units Sodium Chloride (Nss 1000ml) 1,000 mls @ 100 mls/hr IV .Q10H [facility] Stop: 05/15/18 07:11 Last Admin: 04/16/18 07:50 Dose: 100 mls/hr Promethazine HCl 12.5 mg/ (Sodium Chloride) 50.5 mls @ 204 mls/hr IV Q6H PRN PRN Reason: Nausea And Vomiting Stop: 05/15/18 08:54 Last Infusion: 04/15/18 11:00 Dose: Infused Methylprednisolone 50 mg/ (Syringe) 0.8 mls @ 1.5 mls/min IV Q8H [facility] Stop: 05/15/18 09:59 Last Admin: 04/16/18 10:00 Dose: 1.5 mls/min Piperacillin Sod/Tazobactam (Sod 3.375 gm/ Dextrose) 115 mls @ 28.75 mls/hr IV Q8H [facility]; Protocol Stop: 04/22/18 09:59 Last Admin: 04/16/18 11:27 Dose: 28 mls/hr Vancomycin HCl 1,000 mg/ (Sodium Chloride) 270 mls @ 125 mls/hr IV Q16H [facility] Stop: 04/22/18 19:59 Last Admin: 04/16/18 12:38 Dose: 125 mls/hr Insulin Human Regular 250 (units/ Sodium Chloride) 250 mls @ 2.3 mls/hr IV .Q24H [facility]; Protocol Stop: 05/15/18 21:44 Last Titration: 04/16/18 11:31 Dose: 2.3 units/hr, 2.3 mls/hr Insulin Aspart (Novolog Flexpen) 0 units SC [facility] Stop: 05/16/18 08:59 Last Admin: 04/16/18 12:39 Dose: 6 units Levothyroxine Sodium (Synthroid) 150 mcg PO DAILYBB [facility] Stop: 05/15/18 07:29 Last Admin: 04/16/18 07:50 Dose: 150 mcg Miscellaneous (Order Awaiting Action) 1 ea N/A QS [facility] Stop: 05/15/18 15:59 Last Admin: 04/16/18 07:50 Dose: 1 ea Miscellaneous (Carbohydrates For Hypoglycemia) 15 - 30 gm PO UD PRN PRN Reason: Hypoglycemia Treatment Stop: 05/15/18 07:11 Miscellaneous Information (Consult) 1 ea N/A UD PRN PRN Reason: Consult Stop: 05/15/18 03:42 Miscellaneous Information (Consult) 1 ea N/A UD PRN PRN Reason: Consult Stop: 05/15/18 04:07 Miscellaneous Information (Consult Glycemic Management Pharmacy) 1 ea N/A UD PRN PRN Reason: Consult Stop: 05/15/18 21:21 Montelukast Sodium (Singulair) 10 mg PO PM [facility] Stop: 05/15/18 20:59 Last Admin: 04/15/18 21:57 Dose: 10 mg Multivitamins/Minerals (Multivitamin W/ Minerals Tab) 1 tab PO DAILY [facility] Stop: 05/15/18 08:59 Last Admin: 04/16/18 07:47 Dose: 1 tab Breo Ellipta Non- Formulary Patient's Own Med 1 ea INH DAILY [facility] Stop: 05/15/18 16:59 Last Admin: 04/16/18 07:48 Dose: 1 inha Pantoprazole Sodium (Protonix) 40 mg PO QAM [facility] Stop: 05/15/18 08:59 Last Admin: 04/16/18 07:47 Dose: 40 mg Polyethylene Glycol (Miralax Powder Packet) 17 gm PO DAILY PRN PRN Reason: Constipation Stop: 05/15/18 07:11 Promethazine HCl (Phenergan) 12.5 mg PO Q8H PRN PRN Reason: Nausea Stop: 05/15/18 07:11 Resident Activity Tracking Resident Involvement: Resident Care Provided Care Provided: Adult Hospital Medicine _ (1) Sepsis Sepsis type: (2) Pneumonia Aspiration pneumonia type: Laterality: right Lung location: lower lobe of lung Pneumonia type: due to unspecified organism Qualified Code(s): J18.1 - Lobar pneumonia, unspecified organism
[2018-04-16] MEDS ORDERED: INSULIN REGULAR 250 UNITS in SODIUM CHLORIDE 0.9% 247.5 ML IV SCH (08:15)
[2018-04-16] MEDS ORDERED: INSULIN GLARGINE SOLOSTAR 100 UNITS/ML 3 ML PEN SQ SCH (09:00)
[2018-04-16] MEDS ORDERED: INSULIN ASPART 100 UNITS/ML 3 ML PEN SC SCH (09:00)
[2018-04-16] MEDS: INSULIN ASPART 100 UNITS/ML 3 ML PEN SC SCH ×4 (09:21→21:14)
[2018-04-16] MEDS: VANCOMYCIN HCL 1,000 MG in SODIUM CHLORIDE 0.9% 250 ML IV SCH (12:38)
--- NOTE | 2018-04-16 14:32 | Pharmacy Report ---
Glycemic Control Consultation - Date of Service April 16, 2018 - Scope Scope: Glycemic Pharmacist consulted by Dr Arias on [04-15-18] for glycemic control and to write orders per [facility] inpatient glycemic control protocol - Objective Weight: 67 kg Accuchecks BSG (last 24hrs): 04/15/18 04/15/18 04/15/18 16:28 20:38 21:48 Glucose POC Glucose 260 H 306 H 376 H* 04/15/18 04/15/18 04/16/18 22:54 23:54 00:56 Glucose POC Glucose 315 H 292 H 315 H 04/16/18 04/16/18 04/16/18 01:55 03:05 04:01 Glucose POC Glucose 298 H 266 H 269 H 04/16/18 04/16/18 04/16/18 04:53 05:41 06:05 Glucose 254 H POC Glucose 253 H 234 H 04/16/18 04/16/18 04/16/18 06:58 09:11 09:38 Glucose POC Glucose 239 H 315 H 310 H 04/16/18 04/16/18 04/16/18 10:27 11:28 12:28 Glucose POC Glucose 296 H 241 H 266 H 04/16/18 13:30 Glucose POC Glucose 322 H Laboratory Data (last 24hrs): 04/16/18 05:41 Potassium 3.9 Carbon Dioxide 29 Anion Gap 5.0 Creatinine 0.87 Est Cr Clr Drug Dosing 63.9 - Recent Pertinent Medications Outpatient Anti-diabetic Regimen: * Novolog insulin pump at home * A1c = 9.3 % [02/2018] Risk Factors for Insulin Resistance: * Steroids: solumedrol 50 iv q 8 hrs * Infection: vanco/zosyn * Diet: T1DM * - Assessment & Plan Assessment & Plan: ASSESSMENT: * Patient is a 52 year old with complex medical history significant for Down syndrome, hld, hypothyrodism, pulmonary hypertension, permanent tracheostomy, recurrent aspiration penumonia. Presenting to hospital with fever/hypoxia. * Due to concern for respiratory infection, steroids initiated last evening - patient with history of developing significant steroid induced hyperglycemia therefore will utilize insulin drip to help with BSG managment while on steroids. PLAN FOR INPATIENT GLYCEMIC CONTROL: * Starting IV insulin infusion per moderate stress protocol * Goal Range 150-250 mg/dl * In the critical care setting, continuous IV insulin infusion has been shown to be the best method for achieving glycemic targets. * Plan to continue with insulin drip while on steroids - once steroids decrease/ dc could consider transition back to home regimen * Please note that the plan above was derived based on current level of insulin resistance and hospital stress. These recommendations are appropriate for inpatient admission only. Plan of care upon discharge will need to be reassessed to avoid potential outpatient hypo/hyperglycemia. Thank you.
--- NOTE | 2018-04-16 17:25 | Progress Note ---
DATE: 04/16/2018 TIME: 4:15 p.m. SUBJECTIVE: The patient is doing much better today. Her mother was present during this evaluation. Her mom thinks she is much better. She seems much more like herself. She is not complaining of shortness of breath. The patient indicates that her appetite is good. Her mom does believe that the patient seems to cough when she eats. She previously had had a swallow evaluation done, and according to her mom, the patient had problems with thin liquids but otherwise did okay. She has been getting thickened up liquids at home. Her mother acknowledges that she does get sick very quickly. She also related that she was wondering if there might be a difference in the blood pressure on the patient from the right arm to the left arm. Many years ago, when the patient had her cardiac surgery, the surgeon indicated to the mom that ideally the left arm would not be good for blood pressure assessment. Thus, perhaps if the patient is having hypotension, both arms should be checked to see if there is a significant difference. OBJECTIVE: GENERAL: The patient appears comfortable. She is cooperative and alert. Temperature is 36.9. Her last fever was earlier in the morning yesterday at 38.1. Tracheostomy is in place. CARDIOVASCULAR: She has had bradycardia. Heart rates for most of the day have been in the 40s, and currently, the heart rate is 42 per minute and regular. Blood pressure is 103/68, and she has had no blood pressures under 100 in the past 24 hours. MUSCULOSKELETAL: Kyphosis is noted. RESPIRATORY: The lung dunham were fairly clear bilaterally but with some decreased breath sounds at the right base. Respiratory rate is 18. Oxygen saturation 94% on 35% tracheostomy collar. EXTREMITIES: Showed no cyanosis, clubbing, or edema. LABORATORY DATA: White count today was 20.39 and yesterday was 24.06. Hemoglobin 11.3, platelets 177,000. Blood sugar this afternoon was 333. Gram stain of sputum reported many WBCs with no organisms. Blood cultures are negative thus far. IMPRESSION: 1. Bilateral pneumonia, suggestive for aspiration. 2. Sepsis. 3. Atelectasis. 4. Status post tracheostomy. 5. Obstructive sleep apnea. COMMENTS/RECOMMENDATIONS: The patient certainly seems better. I would continue with both Zosyn and vancomycin for now. While we have not proven any definitive staph infection, I would at least give her the 2-3 days and wait and see if the blood cultures would be positive at all. Her blood sugars are elevated. I think we could change to oral prednisone rather than methylprednisolone. Would continue with her other treatments.
[2018-04-16] MEDS: ATORVASTATIN 10 MG TAB PO SCH (21:06)
[2018-04-16] MEDS: FEXOFENADINE HCL 180 MG TAB PO SCH (21:06)
[2018-04-16] MEDS: MONTELUKAST SODIUM 10 MG TABLET PO SCH (21:07)
[2018-04-16] MEDS ORDERED: methylPREDNISolone 50 MG in SYRINGE 0 ML IV SCH (22:00)
[2018-04-17] MEDS: PIPERACILLIN/TAZOBACTAM 3.375 GM in DEXTROSE 5% 100 ML IV SCH ×3 (01:35→17:43)
[2018-04-17] MEDS: SODIUM CHLORIDE 0.9% 1000ML 1,000 ML IV SCH ×2 (01:36→12:32)
[2018-04-17] MEDS ORDERED: VANCOMYCIN TROUGH ONE (03:30)
[2018-04-17 04:07] LABS: Calcium 8.3 mg/dl (8.5-10.1); Creatinine Clr Calc Pharmacy 80.5 ml/min; Est GFR (African American) 115.2; Est GFR (Non-African American) 99.4; Potassium 3.5 mmol/L (3.5-5.1)
[2018-04-17] MEDS: VANCOMYCIN HCL 1,000 MG in SODIUM CHLORIDE 0.9% 250 ML IV SCH (04:55)
[2018-04-17] MEDS: LEVOTHYROXINE SODIUM 150 MCG TABLET PO SCH (05:34)
--- NOTE | 2018-04-17 06:56 | Family Medicine Progress Note ---
Date of Service April 17, 2018 Assessment & Plan (1) Sepsis: Ms. Roca is a 52-year-old female with a complex past medical history including Down syndrome, diabetes mellitus, hyperlipidemia, hypothyroidism, pulmonary hypertension, tracheal stenosis with permanent tracheostomy, recurrent aspiration pneumonia, chronic hypoxic respiratory failure (2L oxygen at rest, 4 L oxygen with activity) Presented to [facility] due to a fever and hypoxia. Patient was recently seen by her wing scorer in the clinic and started on Levaquin. She has multiple prior admissions to the hospital for aspiration pneumonia, the most recent admissions were on 02/14-02/16 and again on 03/07-03/10. - Continue zosyn for aspiration pneumonia. Patient has a history of pneumonia resistant to Levaquin. - Discontinue vancomycin as MRSA swab negative - Discontinue IV fluids as patient's blood pressure is improving and she is tolerating p.o. well - Steroids decreased from IV steroids to 40 mg p.o. prednisone - Sputum culture showed moderate normal mary (2) Acute on chronic respiratory failure with hypoxemia: - Continue scheduled albuterol nebs q8hr -Continue Mucomyst - Change supplemental oxygen from trach collar to 2 L by nasal cannula, patient' s regular home dose. She generally uses 4 L at night to sleep - Pulmonology following, thank you for recommendations (3) Bradycardia: -Patient bradycardic, with heart rate dropping as low as 38. No pauses noted on telemetry monitoring. Asymptomatic. -EKG reveals ST segment elevation in inferior leads, however this is chronic, when compared with EKG done in February 2018 -Unsure of etiology of bradycardia. Will consult cardiology for further recommendations -Continue to monitor on telemetry (4) Pneumonia: - Per discussion with family, patient has a chronic aspiration risk. Family was offered placement of a feeding tube, however they declined. - Family agreeable to see speech therapist for further recommendations about diet alterations - Management as above (5) Type 1 diabetes: - has an insulin pump at home - glucose levels elevated to 376 while on iv steroids - Discontinue insulin drip today, as patient is being transitioned to p.o. prednisone - Lantus 15 units daily, and insulin sliding scale ordered (6) HLD (hyperlipidemia): - cont home statin (7) Depression: - continue home citalopram (8) CAMILLA (obstructive sleep apnea): - nocturnal Bipap (9) Hypothyroidism: - continue home synthroid Code status: DNR Disposition: remains on telemetry DVT prophylaxis: 5,000 units heparin SQ BID Supervising Physician Co-Signing Physician Notes Patient seen and examined at the bedside with Dr. Esparza. Agree with history , exam findings, assessment and plan of care. In brief, Ms Early is a 52 year old female with complex medical history including Down syndrome, DM, hypothyroidism, pulmonar HTN, tracheal stenosis; tach, recurrent aspiration and chronic hypoxic respiratory failure (O2 dependent , 2L at home) admitted for failed outpatient treatment of aspiration pneumonia. VS reviewed. Labs and imaging reviewed. Awake and alert. Basilar crackles. No increased work of breathing. On trach collar. Sats are appropriate. 1. Sepsis secondary to HCAP, aspiration PNA. continue zosyn, dc vanc. DC mIVFs since she is taking po well. Of note, she has a hx of levaquin resistant pneumonia so would avoid in the future. 2. chronic respiratory failure. O2 support as needed. keep sats between 88-92%. Steroid dependent. received stress dose. Continue pred 40mg. albuterol nebs TID. home BiPAP. Sputum cx with resp mary. Appreciate pulm recommendations. 3.persistent bradycardia. Asymptomatic. EKG with sinus janeth, ST elevations but there are present on prior EKG. No offending medications. Doubt new infection. Rechecking TSH although recent TSH was on the low end. Appreciate cardiology opinion on this. 3. DM now with hyperglycemia secondary to steroids. Transition to subq insulin ( lantus and ssiwill adjust based on glucose readings). Other chronic issues are stable. Continuing home meds. Subjective Ms. Early reports that her breathing feels better today, and that she is eager to go home. She is requesting removal of oxygen via trach, in favor of oxygen via nasal cannula which is what she normally uses at home. Per her mother and the nurse who normally takes care of her, she is still more subdued than usual. They feel that she was more energetic yesterday, and that she is talking less today. Her mother states that she was not ever told that Valorie has a history of bradycardia in the past. Constitutional: + fatigue; no fever and no chills Respiratory: + cough Cardiovascular: no chest pain Gastrointestinal: no abdominal pain and no nausea Physical Exam 2 Vital Signs (Past 24 Hours): Last Vital Signs Temp 37.0 C 04/17/18 02:50 Pulse 38 L 04/17/18 02:50 Resp 16 04/17/18 02:50 BP 103/71 04/17/18 02:50 Pulse Ox 97 04/17/18 02:50 Constitutional: well developed, well nourished and cooperative; not in distress Respiratory: normal respiratory effort; no respiratory distress Auscultation: lungs clear to auscultation bilaterally and + diminished lung sounds; no wheezes Cardiovascular: Rate/Rhythm: regular rhythm and + bradycardic Heart Sounds : normal S1 and normal S2 Extremities: no calf tenderness and no pedal edema Gastrointestinal (Abdomen): normal bowel sounds, soft, nontender, no hepatosplenomegaly Results & Data Laboratory Results Laboratory Results - last 24 hr 04/16/18 04/16/18 04/16/18 15:29 16:32 17:29 Sodium Potassium Chloride Carbon Dioxide Anion Gap BUN Creatinine Est Cr Clr Drug Dosing Est GFR ( Amer) Est GFR (Non-Af Amer) BUN/Creatinine Ratio Glucose POC Glucose 274 H 283 H 246 H Calcium Vancomycin Trough 04/16/18 04/16/18 04/16/18 19:00 20:03 21:45 Sodium Potassium Chloride Carbon Dioxide Anion Gap BUN Creatinine Est Cr Clr Drug Dosing Est GFR ( Amer) Est GFR (Non-Af Amer) BUN/Creatinine Ratio Glucose POC Glucose 254 H 186 H 162 H Calcium Vancomycin Trough 04/16/18 04/16/18 04/17/18 22:33 23:34 01:33 Sodium Potassium Chloride Carbon Dioxide Anion Gap BUN Creatinine Est Cr Clr Drug Dosing Est GFR ( Amer) Est GFR (Non-Af Amer) BUN/Creatinine Ratio Glucose POC Glucose 166 H 167 H 180 H Calcium Vancomycin Trough 04/17/18 04/17/18 04/17/18 03:37 03:37 03:37 Sodium 141 Potassium 3.5 Chloride 110 H Carbon Dioxide 28 Anion Gap 3.0 BUN 18 Creatinine 0.69 Est Cr Clr Drug Dosing 80.5 Est GFR ( Amer) 115.2 Est GFR (Non-Af Amer) 99.4 BUN/Creatinine Ratio 26.0 H Glucose 123 H POC Glucose 151 H Calcium 8.3 L Vancomycin Trough 10.0 01/04/17/18 04/17/18 04:42 05:05 05:31 Sodium Potassium Chloride Carbon Dioxide Anion Gap BUN Creatinine Est Cr Clr Drug Dosing Est GFR ( Amer) Est GFR (Non-Af Amer) BUN/Creatinine Ratio Glucose POC Glucose 104 H 115 H 145 H Calcium Vancomycin Trough 04/17/18 04/17/18 04/17/18 06:06 06:59 07:58 Sodium Potassium Chloride Carbon Dioxide Anion Gap BUN Creatinine Est Cr Clr Drug Dosing Est GFR ( Amer) Est GFR (Non-Af Amer) BUN/Creatinine Ratio Glucose POC Glucose 153 H 185 H 198 H Calcium Vancomycin Trough 04/17/18 04/17/18 04/17/18 09:04 10:06 11:05 Sodium Potassium Chloride Carbon Dioxide Anion Gap BUN Creatinine Est Cr Clr Drug Dosing Est GFR ( Amer) Est GFR (Non-Af Amer) BUN/Creatinine Ratio Glucose POC Glucose 274 H 285 H 270 H Calcium Vancomycin Trough 04/17/18 04/17/18 04/17/18 12:16 13:02 13:57 Sodium Potassium Chloride Carbon Dioxide Anion Gap BUN Creatinine Est Cr Clr Drug Dosing Est GFR ( Amer) Est GFR (Non-Af Amer) BUN/Creatinine Ratio Glucose POC Glucose 251 H 305 H 266 H Calcium Vancomycin Trough Medications Administered Current Inpatient Medications Acetaminophen (Tylenol) 650 mg PO Q4H PRN PRN Reason: fever or pain Stop: 05/15/18 07:11 Acetylcysteine (Mucomyst 20%) 4 ml INH BID [facility] Stop: 05/15/18 08:59 Last Admin: 04/17/18 07:04 Dose: 4 ml Albuterol (Ventolin 0.083% 2.5mg/3ml) 2.5 mg NEB Q8R [facility] Stop: 05/15/18 09:29 Last Admin: 04/17/18 15:45 Dose: Not Given Atorvastatin Calcium (Lipitor) 10 mg PO HS [facility] Stop: 05/15/18 20:59 Last Admin: 04/16/18 21:06 Dose: 10 mg Calcium Carbonate (Os-Eliceo 500) 1,250 mg PO BIDM [facility] Stop: 05/15/18 16:59 Last Admin: 04/17/18 08:02 Dose: 1,250 mg Citalopram Hydrobromide (Celexa) 40 mg PO QAM [facility] Stop: 05/15/18 08:59 Last Admin: 04/17/18 08:01 Dose: 40 mg Clotrimazole (Lotrimin 1%) 1 appln TOP TID PRN PRN Reason: Rash Stop: 05/15/18 07:11 Dextrose (Dextrose 50%) 25 - 50 ml IV UD PRN; Protocol PRN Reason: Hypoglycemia Protocol Stop: 05/15/18 07:11 Fexofenadine HCl (Danielle) 180 mg PO HS [facility] Stop: 05/15/18 20:59 Last Admin: 04/16/18 21:06 Dose: 180 mg Glucagon (Glucagen) 1 mg SQ UD PRN; Protocol PRN Reason: Hypoglycemia Protocol Stop: 05/15/18 07:11 Glucose (Glucose 40%) 15 - 30 gm PO UD PRN; Protocol PRN Reason: Hypoglycemia Protocol Stop: 05/15/18 07:11 Glucose (Dex4 Glucose) 4 - 8 tabs PO UD PRN; Protocol PRN Reason: Hypoglycemia Protocol Stop: 05/15/18 07:11 Heparin Sodium (Porcine) (Heparin Sodium (Porcine)) 5,000 units SQ Q12 [facility] Stop: 05/15/18 20:59 Last Admin: 04/17/18 08:02 Dose: 5,000 units Promethazine HCl 12.5 mg/ (Sodium Chloride) 50.5 mls @ 204 mls/hr IV Q6H PRN PRN Reason: Nausea And Vomiting Stop: 05/15/18 08:54 Last Infusion: 04/15/18 11:00 Dose: Infused Piperacillin Sod/Tazobactam (Sod 3.375 gm/ Dextrose) 115 mls @ 28.75 mls/hr IV Q8H [facility]; Protocol Stop: 04/22/18 09:59 Last Admin: 04/17/18 10:18 Dose: 28.8 mls/hr Insulin Aspart (Novolog Flexpen) 0 units SC ACHS [facility] Stop: 05/17/18 16:29 Insulin Glargine (Lantus Solostar Pen) 15 units SC HS [facility] Stop: 05/17/18 15:29 Levothyroxine Sodium (Synthroid) 150 mcg PO DAILYBB [facility] Stop: 05/15/18 07:29 Last Admin: 04/17/18 05:34 Dose: 150 mcg Miscellaneous (Order Awaiting Action) 1 ea N/A QS [facility] Stop: 05/15/18 15:59 Last Admin: 04/17/18 09:23 Dose: Not Given Miscellaneous (Carbohydrates For Hypoglycemia) 15 - 30 gm PO UD PRN PRN Reason: Hypoglycemia Treatment Stop: 05/15/18 07:11 Miscellaneous Information (Consult) 1 ea N/A UD PRN PRN Reason: Consult Stop: 05/15/18 03:42 Montelukast Sodium (Singulair) 10 mg PO PM [facility] Stop: 05/15/18 20:59 Last Admin: 04/16/18 21:07 Dose: 10 mg Multivitamins/Minerals (Multivitamin W/ Minerals Tab) 1 tab PO DAILY [facility] Stop: 05/15/18 08:59 Last Admin: 04/17/18 08:02 Dose: 1 tab Breo Ellipta Non- Formulary Patient's Own Med 1 ea INH DAILY [facility] Stop: 05/15/18 16:59 Last Admin: 04/17/18 10:17 Dose: 1 inha Pantoprazole Sodium (Protonix) 40 mg PO QAM [facility] Stop: 05/15/18 08:59 Last Admin: 04/17/18 08:02 Dose: 40 mg Polyethylene Glycol (Miralax Powder Packet) 17 gm PO DAILY PRN PRN Reason: Constipation Stop: 05/15/18 07:11 Prednisone (Prednisone) 40 mg PO DAILY [facility] Stop: 05/17/18 08:59 Last Admin: 04/17/18 08:02 Dose: 40 mg Promethazine HCl (Phenergan) 12.5 mg PO Q8H PRN PRN Reason: Nausea Stop: 05/15/18 07:11 Resident Activity Tracking Resident Involvement: Resident Care Provided Care Provided: [facility] Medicine _ (1) Sepsis Sepsis type: (2) Pneumonia Aspiration pneumonia type: Laterality: right Lung location: lower lobe of lung Pneumonia type: due to unspecified organism Qualified Code(s): J18.1 - Lobar pneumonia, unspecified organism
[2018-04-17] MEDS: ACETYLCYSTEINE 20% INHAL SOLN ***DISPENSED BY RESP. INH SCH ×2 (07:04→19:20)
[2018-04-17] MEDS: ALBUTEROL 0.083% NEBU SOLN 3 ML VIAL NEB SCH ×3 (07:04→23:29)
[2018-04-17] MEDS: CITALOPRAM 40 MG TAB PO SCH (08:01)
[2018-04-17] MEDS: CALCIUM CARBONATE 1250MG TAB PO SCH ×2 (08:02→17:42)
[2018-04-17] MEDS: PANTOprazole 40 MG TAB PO SCH (08:02)
[2018-04-17] MEDS: predniSONE 20 MG TAB PO SCH (08:02)
[2018-04-17] MEDS: HEPARIN SOD 5,000 UNIT/0.5 ML VIAL SQ SCH ×2 (08:02→20:27)
[2018-04-17] MEDS: CEROVITE ADV FORMULA TAB PO SCH (08:02)
[2018-04-17] MEDS: BREO ELLIPTA INH SCH (10:17)
[2018-04-17] MEDS: INSULIN ASPART 100 UNITS/ML 3 ML PEN SC SCH ×4 (10:17→20:26)
--- NOTE | 2018-04-17 13:15 | Pharmacy Report ---
Pharmacy Abx Dose Short Note - Date of Service April 17, 2018 - Assessment & Plan Assessment 52 year old F receiving vancomycin and Zosyn for treatment of suspected aspiration pneumonia. Day # 3 of antimicrobial therapy. Plan Vancomycin * Vanco trough obtained this morning at 0337 prior to the 4th dose and resulted at 10 (subtherapeutic). * CrCl has improved from 64 to 80 mL/min resulting in new PK parameters * ke: 0.071, t1/2: 9.7 * Will continue vancomycin 1 g IV, but increase frequency to q12h from q16h. * Will obtain follow-up vancomycin trough once new dose is at steady-state. * MRSA nasal swab is negative. Physician aware, but will discuss with pulmonology before discontinuing vancomycin. Zosyn * Continue current regimen of 3.375 g IV q8h. Dose appropriate. Pharmacy will continue to follow and will adjust dose/frequency as necessary. Thank you.
--- NOTE | 2018-04-17 13:35 | Progress Note ---
DATE: 04/17/2018 PULMONARY PROGRESS NOTE TIME: 1:00 p.m. SUBJECTIVE: The patient continues to improve. She is not having any shortness of breath. She feels less congested in the chest. Her mucus has decreased according to nurses. They have not had to suction her trach very much at all. OBJECTIVE: VITAL SIGNS: Temperature this morning 37.2. Tracheostomy is clean. Heart rate is 40 per minute. The rhythm is regular. Blood pressure 144/76. LUNGS: Lung dunham revealed very mild rhonchi bilaterally. Respiratory rate is 18 breaths per minute. Saturation is 95% on 35% trach collar. EXTREMITIES: Showed no edema. LABORATORY DATA: Blood sugar today was 251. Electrolytes show sodium 141, potassium 3.5, chloride 110, bicarbonate 28. BUN 18, creatinine 0.69. IMPRESSION: 1. Bilateral pneumonia - likely secondary to aspiration. 2. Sepsis. 3. Atelectasis. 4. Hypotension - resolved. 5. Status post tracheostomy. 6. Obstructive sleep apnea. COMMENTS AND RECOMMENDATIONS: I suspect her fluids could be decreased or discontinued. The cultures have not shown any definitive organism. I suspect the vancomycin could be discontinued. Would likely continue the Zosyn for now. She is on prednisone currently at 40 mg daily and would continue that. The patient continues to run bradycardia. She does not seem to be symptomatic. I do not know the definite etiology of that or if it is considered significant. We will defer this to the hospitalist team. We will do an x-ray tomorrow morning.
[2018-04-17] MEDS ORDERED: GLUCOSE 10 TABS/TUBE PO PRN (13:51)
[2018-04-17] MEDS ORDERED: DEXTROSE 50% 50 ML SYRINGE IV PRN (13:51)
[2018-04-17] MEDS ORDERED: CARBOHYDRATES FOR HYPOGLYCEMIA PO PRN (13:51)
[2018-04-17] MEDS ORDERED: GLUCOSE 40% GEL 15 GM TUBE PO PRN (13:51)
[2018-04-17] MEDS ORDERED: GLUCAGON FOR INJ 1 MG VIAL SQ PRN (13:51)
[2018-04-17] MEDS ORDERED: VANCOMYCIN HCL 1,000 MG in SODIUM CHLORIDE 0.9% 250 ML IV SCH (16:00)
[2018-04-17] MEDS: INSULIN GLARGINE SOLOSTAR 100 UNITS/ML 3 ML PEN SC SCH (16:10)
[2018-04-17] MEDS: ATORVASTATIN 10 MG TAB PO SCH (20:24)
[2018-04-17] MEDS: MONTELUKAST SODIUM 10 MG TABLET PO SCH (20:25)
[2018-04-17] MEDS: FEXOFENADINE HCL 180 MG TAB PO SCH (20:25)
[2018-04-17] MEDS ORDERED: INSULIN GLARGINE SOLOSTAR 100 UNITS/ML 3 ML PEN SC SCH (21:00)
[2018-04-17] MEDS ORDERED: Nursing to Pharmacy Communication ONE (21:01)
--- NOTE | 2018-04-17 21:07 | Cardiology Consultation ---
Date of Consultation April 17, 2018 Assessment & Plan (1) Bradycardia: The patient does have episodes of significant sinus bradycardia. Review of her records suggest that this has been a progressive process and generally speaking she has not had heart rates this low in the past during hospitalizations. There is not appear to be any degree of heart block. She has not had significant pauses. However, she does have sinus rates in the 30s while awake. This alone generally constitutes a indication for pacemaker implantation. However, I think before making that recommendation we need to consider several elements. It would be nice to have a better correlation between her symptoms and periods of bradycardia. This may be difficult given her cognitive dysfunction. Also, there has been some debate in the past regarding performance of certain procedures and I think a discussion with the patient's family will need to be undertaken prior to proceeding with any intervention. Third, she is currently being treated for an active infection and is on immunosuppressive therapy with prednisone. This offers a less desirable time for device implantation given the higher risk for infection. I do not believe that this rhythm disturbance represents an immediate threat to the patient. She appears to have stable conduction overall. She appears to be minimally symptomatic if at all from the arrhythmia and I think it would be safe to delay any implant to facilitate a discussion with the family and or completion of her current treatment for pneumonia. Alternatively, we could try some sinus node stimulation with oral theophylline. I would discuss these issues with the patient's family tomorrow. History of Present Illness Reason for Consultation: Bradycardia Requesting Physician: Hugo Attending Physician: Warren Jade History of Present Illness The patient is a 52-year-old woman with a history of Down syndrome and congenital heart disease who was admitted to [facility] for pneumonia. It seems that the patient suffers from chronic aspiration and is currently being treated for pneumonia both with antibiotic therapy and steroids. During her hospitalization she was noted on telemetry to have significant bradycardia. The patient can provide some history. On questioning she states that she is currently feeling well. She does respond in the affirmative to having a cough. She denies any pain currently. She denies any breathing difficulty. He has not been aware of any palpitations. She claims of ambulated earlier in the day he did not have dizziness. A discussion with the nursing staff states that the patient is minimally ambulatory. They do notice that at times of bradycardia she will seems slightly more lethargic and not as interactive. Allergies Allergy/AdvReac Type Severity Reaction Status Date / Time cefaclor Allergy Intermediate HIVES Verified 04/17/18 13:19 Cephalosporins Allergy Intermediate rash per Verified 03/31/18 12:58 mother sertraline Allergy Unknown INTOLERANCE Verified 03/31/18 13:13 Home Medications Home Medications Medication Instructions Recorded Confirmed Type albuterol sulfate 1 neb INHALATION TID 02/13/18 04/15/18 History atorvastatin 10 mg PO HS 02/13/18 04/15/18 History calcium carbonate [Oyster Shell 500 mg PO BIDM 02/13/18 04/15/18 History Calcium 500] citalopram 40 mg PO QAM 02/13/18 04/15/18 History clotrimazole 1 applic TOPICAL TID PRN 02/13/18 04/15/18 History glucagon (human recombinant) 1 mg IM DIRECTED PRN 02/13/18 04/15/18 History [Glucagon Emergency Kit (human)] montelukast 10 mg PO PM 02/13/18 04/15/18 History omeprazole 20 mg PO QAM 02/13/18 04/15/18 History promethazine 12.5 mg PO Q8H PRN 02/13/18 04/15/18 History starch (thickening) [Thick-It] 1 packet PO DAILY 02/13/18 04/15/18 History acetylcysteine 4 ml INHALATION BID 03/07/18 04/15/18 History fexofenadine [Danielle Allergy] 180 mg PO HS 03/07/18 04/15/18 History insulin aspart U-100 0 unit CONTINUOUS SUBCUTANEOUS 03/07/18 04/15/18 History INFUSION UD acetaminophen [Mapap 650 mg PO Q4H PRN #30 tab 03/10/18 04/15/18 Rx (acetaminophen)] prednisone 10 mg PO BID #7 tab 03/10/18 04/15/18 Rx fluconazole 150 mg PO DIRECTED 04/15/18 04/15/18 History fluoride (sodium) [Phos-Flur] 15 ml DENTAL HS 04/15/18 04/15/18 History fluticasone-vilanterol [Breo 1 inh INHALATION DAILY 04/15/18 04/15/18 History Ellipta] furosemide [Lasix] 20 mg PO DAILY PRN 04/15/18 04/15/18 History insulin glargine [Basaglar KwikPen 25 - 30 unit SUBCUT DAILY 04/15/18 04/15/18 History U-100 Insulin] levothyroxine 150 mcg PO DAILY 04/15/18 04/15/18 History multivitamin,by-tspl-tboakfbm 1 tab PO DAILY 04/15/18 04/15/18 History [Therems-M] Patient History Medical History MRSA (methicillin resistant Staphylococcus aureus) E. coli infection Hypothyroidism GERD (gastroesophageal reflux disease) Seizure-like activity (Resolved) Chronic obstructive pulmonary disease (Acute) Diabetes mellitus, type 2 (Acute) Presence of tracheostomy (Acute) Congenital heart disease On home oxygen therapy Surgical History Hx of tracheostomy History of thoracotomy (Acute) Social History Current Living Situation: Personal Care Facility Current Living Situation Comment: senior living Other Information That Helps Us Care for You: No Feels Safe at Home: Yes Safety Concerns: Feels Safe At This Time Smoking Status: Never smoker Do You Dip or Chew Tobacco: No Second Hand Exposure: No Hx Alcohol Use: No Hx Substance Use: No Beliefs That Will Affect Care: None Communication Ability: Impaired Review of Systems Complete. Pertinent positives on the history of present illness Physical Exam 2 Vital Signs (Past 24 Hours): Last Vital Signs Temp 36.4 C L 04/17/18 19:53 Pulse 43 L 04/17/18 19:53 Resp 18 04/17/18 19:53 BP 109/68 04/17/18 19:53 Pulse Ox 100 04/17/18 19:53 Physical Exam: She is alert and oriented x3. Mood affect appear normal. She answered all questions appropriately. HEENT: Sclerae are anicteric. Pupils are equal and reactive to light and accommodation. Extraocular movements were intact. Neuro: Cranial nerves intact Neck: Examination of the submandibular region did not reveal any significant lymphadenopathy. Carotids are palpable bilaterally and free of bruits on auscultation. There was no evidence of jugular venous distention. The thyroid was not enlarged. Lungs: Lungs are clear to auscultation bilaterally. There are no rales wheezes or rhonchi. She has normal respiratory effort without use of accessory muscles. There is normal pulmonary excursion. Cardiac: The rhythm was regular. S1 and S2 were normal. There are no murmurs on examination. The PMI was not markedly displaced on palpation. Abdomen: The abdomen was soft and nontender. Extremities: Patient has bilateral radial pulses that are equal in intensity. There is no evidence cyanosis or clubbing. There was no evidence of significant peripheral edema bilaterally. Skin: There are no rashes noted on examination today. Results & Data Laboratory Results Abnormal Lab Results 04/16/18 04/16/18 04/16/18 21:45 22:33 23:34 Sodium Potassium Chloride Carbon Dioxide Anion Gap BUN Creatinine Est Cr Clr Drug Dosing Est GFR ( Amer) Est GFR (Non-Af Amer) BUN/Creatinine Ratio Glucose POC Glucose 162 H 166 H 167 H Calcium Vancomycin Trough 04/17/18 04/17/18 04/17/18 01:33 03:37 03:37 Sodium 141 Potassium 3.5 Chloride 110 H Carbon Dioxide 28 Anion Gap 3.0 BUN 18 Creatinine 0.69 Est Cr Clr Drug Dosing 80.5 Est GFR ( Amer) 115.2 Est GFR (Non-Af Amer) 99.4 BUN/Creatinine Ratio 26.0 H Glucose 123 H POC Glucose 180 H Calcium 8.3 L Vancomycin Trough 10.0 04/17/18 04/17/18 04/17/18 03:37 04:42 05:05 Sodium Potassium Chloride Carbon Dioxide Anion Gap BUN Creatinine Est Cr Clr Drug Dosing Est GFR ( Amer) Est GFR (Non-Af Amer) BUN/Creatinine Ratio Glucose POC Glucose 151 H 104 H 115 H Calcium Vancomycin Trough 04/17/18 04/17/18 04/17/18 05:31 06:06 06:59 Sodium Potassium Chloride Carbon Dioxide Anion Gap BUN Creatinine Est Cr Clr Drug Dosing Est GFR ( Amer) Est GFR (Non-Af Amer) BUN/Creatinine Ratio Glucose POC Glucose 145 H 153 H 185 H Calcium Vancomycin Trough 04/17/18 04/17/18 04/17/18 07:58 09:04 10:06 Sodium Potassium Chloride Carbon Dioxide Anion Gap BUN Creatinine Est Cr Clr Drug Dosing Est GFR ( Amer) Est GFR (Non-Af Amer) BUN/Creatinine Ratio Glucose POC Glucose 198 H 274 H 285 H Calcium Vancomycin Trough 04/17/18 04/17/18 04/17/18 11:05 12:16 13:02 Sodium Potassium Chloride Carbon Dioxide Anion Gap BUN Creatinine Est Cr Clr Drug Dosing Est GFR ( Amer) Est GFR (Non-Af Amer) BUN/Creatinine Ratio Glucose POC Glucose 270 H 251 H 305 H Calcium Vancomycin Trough 04/17/18 04/17/18 04/17/18 13:57 16:38 20:07 Sodium Potassium Chloride Carbon Dioxide Anion Gap BUN Creatinine Est Cr Clr Drug Dosing Est GFR ( Amer) Est GFR (Non-Af Amer) BUN/Creatinine Ratio Glucose POC Glucose 266 H 340 H 398 H* Calcium Vancomycin Trough 04/17/18 20:13 Sodium Potassium Chloride Carbon Dioxide Anion Gap BUN Creatinine Est Cr Clr Drug Dosing Est GFR ( Amer) Est GFR (Non-Af Amer) BUN/Creatinine Ratio Glucose POC Glucose 349 H Calcium Vancomycin Trough ECG Additional Comments: Normal sinus rhythm with periods of sinus bradycardia.
[2018-04-17] MEDS ORDERED: INSULIN ASPART 100 UNITS/ML 3 ML PEN SC SCH (21:30)
[2018-04-18] MEDS: PIPERACILLIN/TAZOBACTAM 3.375 GM in DEXTROSE 5% 100 ML IV SCH ×3 (02:55→17:59)
[2018-04-18] MEDS: LEVOTHYROXINE SODIUM 150 MCG TABLET PO SCH (06:39)
[2018-04-18] MEDS: ACETYLCYSTEINE 20% INHAL SOLN ***DISPENSED BY RESP. INH SCH ×2 (06:57→23:10)
[2018-04-18] MEDS: ALBUTEROL 0.083% NEBU SOLN 3 ML VIAL NEB SCH ×3 (06:57→23:10)
[2018-04-18 07:10] LABS: Hematocrit (blood only) 33.1 % (37-47); Hemoglobin 10.8 g/dL (12.0-16.0); Mean Corpuscular Hgb Conc 32.6 g/dL (32-36); Mean Corpuscular Volume 100.9 fL (80-100); Mean Platelet Volume 10.5 fL (7.4-10.4); Platelet Count 178 K/uL (130-400); RDW Coefficient of Variation 13.3 % (11.5-14.5); RDW Standard Deviation 49.3 fL (36.4-46.3); Red Blood Count 3.28 M/uL (4.2-5.4); White Blood Count 10.03 K/uL (4.8-10.8)
[2018-04-18 07:49] LABS: Creatinine Clr Calc Pharmacy 71.5 ml/min; Est GFR (African American) 100.6; Est GFR (Non-African American) 86.8
[2018-04-18] MEDS: INSULIN REGULAR 250 UNITS in SODIUM CHLORIDE 0.9% 247.5 ML IV SCH (08:00)
--- NOTE | 2018-04-18 08:43 | XRay Report ---
XR chest 2V routine CLINICAL HISTORY: lung infiltrates COMPARISON STUDY: 04/15/2018 FINDINGS: The heart remains mildly enlarged. A tracheostomy tube is visualized. There is a right side d A-Port catheter unchanged in position. There are persistent bibasilar airspace opacities right grea ter than left. Underlying emphysema is suspected.[ IMPRESSION: Stable findings. Persistent right greater than left bibasilar airspace opacities Electronically signed by: Kevon Law M.D. 04/18/2018 8:41 AM
[2018-04-18] MEDS: CEROVITE ADV FORMULA TAB PO SCH (09:29)
[2018-04-18] MEDS: CALCIUM CARBONATE 1250MG TAB PO SCH ×2 (09:29→18:00)
[2018-04-18] MEDS: PANTOprazole 40 MG TAB PO SCH (09:29)
[2018-04-18] MEDS: CITALOPRAM 40 MG TAB PO SCH (09:29)
[2018-04-18] MEDS: predniSONE 20 MG TAB PO SCH (09:29)
[2018-04-18] MEDS: BREO ELLIPTA INH SCH (09:31)
[2018-04-18] MEDS: INSULIN ASPART 100 UNITS/ML 3 ML PEN SC SCH ×4 (09:33→20:33)
[2018-04-18] MEDS: HEPARIN SOD 5,000 UNIT/0.5 ML VIAL SQ SCH ×2 (09:34→20:37)
--- NOTE | 2018-04-18 14:15 | Progress Note ---
DATE: 04/18/2018 PULMONARY PROGRESS NOTE TIME: 1:40 p.m. SUBJECTIVE: The patient is sleeping heavily at present. Her mother is at her bedside. She states she has not been as alert and outgoing as she usually is. She is now napping which apparently she often does at this time of day. Thus, it is hard for me to assess. Her nurse was not available at present for me to speak with. The patient denies shortness of breath. She denies significant cough, but I do not know if she is a reliable historian. Dr. Hughes saw the patient yesterday because of severe bradycardia. Ideally, he feels that she would benefit from a pacemaker, but he has concerns doing that while she has an ongoing infection. OBJECTIVE: GENERAL: The patient was sleepy and lethargic. She did not appear in distress. VITAL SIGNS: Temperature is 36.6. The heart rate currently is 53 per minute. Rhythm is regular. LUNGS: Lung dunham were difficult to assess because I had difficulty getting the patient to take deep breaths. This was basically because she was sleepy. She seemed to have mild rhonchi bilaterally. Her respiratory rate was 16. Saturation was 96% on 2 liters. EXTREMITIES: Showed no cyanosis, clubbing or edema. IMAGING DATA: She did have a chest x-ray today. This shows persistence of the small bibasilar infiltrates, greater on the right than the left. They are not significantly changed compared with 04/15. LABORATORY DATA: White count today is down to 10.03. Two days ago, it was 20.39. Hemoglobin today 10.8. Platelets 178,000. Blood sugar today was 113 fasting and 293 at 11:10 a.m. Preliminary Gram stain and culture from her trach are showing gram-negative bacilli. The quantity was few. The organism has not been identified as of yet. Blood cultures were negative thus far. IMPRESSION: 1. Bilateral pneumonia - presumably aspiration. 2. Atelectasis. 3. Status post tracheostomy. 4. Obstructive sleep apnea. RECOMMENDATIONS: It is difficult to evaluate the patient now when she is still sleepy. She certainly does not seem to be in any distress. She remains on Zosyn. She is on Breo Ellipta and prednisone. Dr. Hughes mentioned the possibility of a trial of theophylline for increasing her heart rate. We would have no objection to that if desired.
--- NOTE | 2018-04-18 17:40 | Family Medicine Progress Note ---
Date of Service April 18, 2018 Assessment & Plan (1) Sepsis: (1) Sepsis: Ms. Roca is a 52-year-old female with a complex past medical history including Down syndrome, diabetes mellitus, hyperlipidemia, hypothyroidism, pulmonary hypertension, tracheal stenosis with permanent tracheostomy, recurrent aspiration pneumonia, chronic hypoxic respiratory failure (2L oxygen at rest, 4 L oxygen with activity) Presented to [facility] due to a fever and hypoxia. Patient was recently seen by her folder stitcher operator in the clinic and started on Levaquin. She has multiple prior admissions to the hospital for aspiration pneumonia, the most recent admissions were on 02/14-02/16 and again on 03/07-03/10. - Switch antibiotic to augmentin PO from zosyn IV - Steroids decreased from IV steroids to 40 mg p.o. prednisone - Sputum culture showed moderate normal mary (2) Acute on chronic respiratory failure with hypoxemia: - Continue scheduled albuterol nebs q8hr -Continue Mucomyst - Change supplemental oxygen from trach collar to 2 L by nasal cannula, patient' s regular home dose. She generally uses 4 L at night to sleep - Pulmonology following, thank you for recommendations (3) Bradycardia: -Patient bradycardic, with heart rate dropping as low as 38. No pauses noted on telemetry monitoring. Asymptomatic. -EKG reveals ST segment elevation in inferior leads, however this is chronic, when compared with EKG done in February 2018 -Cardiology consulted and recommended possible outpatient pacemaker or oral theophylinne, difficult to assess if patient is symptomatic or not. They said she was cleared to be discharged from their standpoint and wound be happy to see her in the outpatient setting (4) Pneumonia: - Per discussion with family, patient has a chronic aspiration risk. Family was offered placement of a feeding tube, however they declined. - Family agreeable to see speech therapist for further recommendations about diet alterations - Management as above (5) Type 1 diabetes: - has an insulin pump at home - Discontinue insulin drip yesterday, as patient is being transitioned to p.o. prednisone, glucose appears to be well controlled - Lantus 15 units daily, and insulin sliding scale ordered (6) HLD (hyperlipidemia): - cont home statin (7) Depression: - continue home citalopram (8) CAMILLA (obstructive sleep apnea): - nocturnal Bipap (9) Hypothyroidism: - continue home synthroid Code status: DNR Disposition: remains on telemetry DVT prophylaxis: 5,000 units heparin SQ BID Supervising Physician Co-Signing Physician Notes Attending attestation Pt seen and examined in concert with Dr. Jansen. In agreement with the documented findings as noted in the resident documentation with any exceptions or additions as noted here. Pt reports respiratory status has returned to baseline. On examination, S1/S2 nl, bradycardia. Decreased breath sounds at bases but good movement overall. Recurrent aspiration PNA speech/swallow education greatly appreciated transition to PO abx and steroids, continue albuterol PRN Bradycardia cardiology consultation appreciated - for outpatient follow up with cardiology Type 2 DM with home insulin pump return to insulin pump on discharge, continue lantus and ISS for now Else as per resident documentation above. Subjective Patient notes that she is feeling better today. She says that her shortness of breath has improved. Her energy levels have also improved. She denies any fevers , chills, cough, chest pain, ab pain, nausea, vomiting or diarrhea. I spoke to the patients mom at the bedside and she noted that she wants her daughter to continue enjoying her food despite recurrent aspirations and admissions. Review of Systems All systems reviewed & are unremarkable except as noted in HPI & below Physical Exam 2 Vital Signs (Past 24 Hours): Last Vital Signs Temp 37.2 C 04/18/18 15:29 Pulse 50 L 04/18/18 15:29 Resp 18 04/18/18 15:29 BP 114/72 04/18/18 15:29 Pulse Ox 94 04/18/18 15:29 Constitutional: WD/WN, vitals as above well developed and well nourished; no acute distress Respiratory: normal respiratory effort, lungs clear to auscultation Cardiovascular: RRR, no murmur, no edema Vessels: dorsalis pedis pulses present Extremities: no calf tenderness and no edema Gastrointestinal (Abdomen): normal bowel sounds, soft, nontender, no hepatosplenomegaly _ (1) Sepsis Sepsis type:
--- NOTE | 2018-04-18 17:41 | Cardiology Progress Note ---
Date of Service April 18, 2018 Assessment & Plan (1) Bradycardia: Overall heart rates appear slightly improved today. Unclear why she had such low heart rates yesterday. I had a long discussion with the patient's mother regarding the options for treatment. While we did consider theophylline , the monitoring and potential toxicity make this a less attractive option. I think if she were symptomatic the best option would be a pacemaker. The main question is whether this would improve the quality of her life. Her heart rates do appear better today. Her mother wishes to avoid any additional procedures. I think it is perfectly safe to discharge her home and monitor her for symptoms of bradycardia and perhaps monitor her heart rates as an outpatient as well. She can follow up with me in the clinic in a couple of weeks and we can discuss the details. Subjective Patient was sleeping for most of the afternoon. She has refused simple questions most of the history is obtained from her mother who reports her being little more interactive today. Physical Exam 2 Vital Signs (Past 24 Hours): Last Vital Signs Temp 37.2 C 04/18/18 15:29 Pulse 50 L 04/18/18 15:29 Resp 18 04/18/18 15:29 BP 114/72 04/18/18 15:29 Pulse Ox 94 04/18/18 15:29 Physical Exam: She is alert and answered some questions.. Mood affect appear normal. She answered all questions appropriately. HEENT: Sclerae are anicteric. Pupils are equal and reactive to light and accommodation. Extraocular movements were intact. Neuro: Cranial nerves intact Neck: Examination of the submandibular region did not reveal any significant lymphadenopathy. Carotids are palpable bilaterally and free of bruits on auscultation. Extremities: Patient has bilateral radial pulses that are equal in intensity. There is no evidence cyanosis or clubbing. There was no evidence of significant peripheral edema bilaterally. Skin: There are no rashes noted on examination today. Results & Data Laboratory Results Abnormal Lab Results 04/17/18 04/17/18 04/17/18 16:38 20:07 20:13 WBC RBC Hgb Hct MCV MCH MCHC RDW Std Deviation RDW Coeff of Jackie Plt Count MPV Creatinine Est Cr Clr Drug Dosing Est GFR ( Amer) Est GFR (Non-Af Amer) POC Glucose 340 H 398 H* 349 H TSH 04/17/18 04/18/18 04/18/18 21:35 06:42 06:42 WBC 10.03 RBC 3.28 L Hgb 10.8 L Hct 33.1 L MCV 100.9 H MCH 32.9 MCHC 32.6 RDW Std Deviation 49.3 H RDW Coeff of Jackie 13.3 Plt Count 178 MPV 10.5 H Creatinine 0.78 Est Cr Clr Drug Dosing 71.5 Est GFR ( Amer) 100.6 Est GFR (Non-Af Amer) 86.8 POC Glucose 332 H TSH 0.007 L 04/18/18 04/18/18 04/18/18 07:03 11:10 16:34 WBC RBC Hgb Hct MCV MCH MCHC RDW Std Deviation RDW Coeff of Jackie Plt Count MPV Creatinine Est Cr Clr Drug Dosing Est GFR ( Amer) Est GFR (Non-Af Amer) POC Glucose 113 H 293 H 321 H TSH
[2018-04-18] MEDS: INSULIN GLARGINE SOLOSTAR 100 UNITS/ML 3 ML PEN SC SCH (20:35)
[2018-04-18] MEDS: ATORVASTATIN 10 MG TAB PO SCH (20:36)
[2018-04-18] MEDS: MONTELUKAST SODIUM 10 MG TABLET PO SCH (20:36)
[2018-04-18] MEDS: FEXOFENADINE HCL 180 MG TAB PO SCH (20:36)
[2018-04-19] MEDS: LEVOTHYROXINE SODIUM 150 MCG TABLET PO SCH (05:58)
[2018-04-19 06:37] LABS: Creatinine Clr Calc Pharmacy 68.7 ml/min; Est GFR (African American) 96.1; Est GFR (Non-African American) 82.9
[2018-04-19] MEDS: ACETYLCYSTEINE 20% INHAL SOLN ***DISPENSED BY RESP. INH SCH ×2 (07:15→23:10)
[2018-04-19] MEDS: ALBUTEROL 0.083% NEBU SOLN 3 ML VIAL NEB SCH ×3 (07:15→23:10)
[2018-04-19 07:26] LABS: Basophils # (auto) 0.02 K/uL (0-0.2); Basophils % (auto) 0.2 %; Hemoglobin 10.5 g/dL (12.0-16.0); Immature Granulocytes # (auto) 0.08 K/uL (0.00-0.02); Immature Granulocytes % (auto) 0.9 %; Lymphocytes # (auto) 1.43 K/uL (1.2-3.4); Lymphocytes % (auto) 15.4 %; Mean Corpuscular Hgb Conc 32.8 g/dL (32-36); Mean Corpuscular Volume 101.6 fL (80-100); Mean Platelet Volume 10.6 fL (7.4-10.4); Monocytes # (auto) 0.69 K/uL (0.11-0.59); Monocytes % (auto) 7.5 %; Neutrophils # (auto) 7.04 K/uL (1.4-6.5); Platelet Count 187 K/uL (130-400); RDW Coefficient of Variation 13.4 % (11.5-14.5); RDW Standard Deviation 49.8 fL (36.4-46.3); Red Blood Count 3.15 M/uL (4.2-5.4); White Blood Count 9.26 K/uL (4.8-10.8)
[2018-04-19] MEDS: AMOXICILLIN/CLAVULANATE 875 MG TAB PO SCH ×2 (07:58→17:00)
[2018-04-19] MEDS: CEROVITE ADV FORMULA TAB PO SCH (07:59)
[2018-04-19] MEDS: CALCIUM CARBONATE 1250MG TAB PO SCH ×2 (07:59→17:00)
[2018-04-19] MEDS: CITALOPRAM 40 MG TAB PO SCH (07:59)
[2018-04-19] MEDS: PANTOprazole 40 MG TAB PO SCH (07:59)
[2018-04-19] MEDS: predniSONE 20 MG TAB PO SCH (08:01)
[2018-04-19] MEDS: BREO ELLIPTA INH SCH (08:04)
[2018-04-19] MEDS: HEPARIN SOD 5,000 UNIT/0.5 ML VIAL SQ SCH ×2 (08:05→21:29)
[2018-04-19] MEDS: INSULIN ASPART 100 UNITS/ML 3 ML PEN SC SCH ×5 (08:07→21:32)
--- NOTE | 2018-04-19 09:12 | Family Medicine Progress Note ---
Date of Service April 19, 2018 Assessment & Plan (1) Sepsis: (1) Sepsis: Ms. Roca is a 52-year-old female with a complex past medical history including Down syndrome, diabetes mellitus, hyperlipidemia, hypothyroidism, pulmonary hypertension, tracheal stenosis with permanent tracheostomy, recurrent aspiration pneumonia, chronic hypoxic respiratory failure (2L oxygen at rest, 4 L oxygen with activity) Presented to [facility] due to a fever and hypoxia. Patient was recently seen by her surface grinder in the clinic and started on Levaquin. She has multiple prior admissions to the hospital for aspiration pneumonia, the most recent admissions were on 02/14-02/16 and again on 03/07-03/10. - Clinically improving , white ct dropping - Currently on Augmentin, however sputum cx positive for ESBL species which coulf be potentially colonization given overall clinical improvement despite lack of abx coverage for ESBL - Will consult Infectious disease for input and consider broadening pending recommendations - Continue p.o. 40 mg prednisone daily (2) Acute on chronic respiratory failure with hypoxemia: - Continue scheduled albuterol nebs q8hr -Continue Mucomyst - Maintain on basline supplemental oxygen 2L via trach - Pulmonology following, appreicate recommendations (3) Bradycardia: -etiology unclear -Seen by Cardiology -recommended outpatient evaluation fro pacemaker on discharge (4) Pneumonia: - Per discussion with family, patient has a chronic aspiration risk. Family was offered placement of a feeding tube, however they declined. - Family agreeable to see speech therapist for further recommendations about diet alterations - Management as above (5) Type 1 diabetes: - has an insulin pump at home - Currently on Lantus 15 units daily, and insulin sliding scale ordered - Glucose not controlled, Reinitiated insulin drip (6) HLD (hyperlipidemia): - cont home statin (7) Depression: - continue home citalopram (8) CAMILLA (obstructive sleep apnea): - nocturnal Bipap (9) Hypothyroidism: - continue home synthroid Code status: DNR Disposition: remains on telemetry DVT prophylaxis: 5,000 units heparin SQ BID Supervising Physician Co-Signing Physician Notes Attending attestation Pt seen and examined in concert with Dr. Ayala. In agreement with the documented findings as noted in the resident documentation with any exceptions or additions as noted here. Pt initially somnolent today but mental status has improved as glucose control has improved and tolerating insulin drip well. Respiratory status has significantly improved subjectively. On examination, S1/S2 nl bradycardic no MCG, decreased breath sounds without wheezing Sepsis secondary to aspiration PNA w/ new ESBL on sputum culture considering clinical improvement, not likely to be source of infection, but with indwelling trach would inquire w/ ID regarding management if any. Continue augmentin at this time. PO prednisone at present dose DMII, uncontrolled restarted insulin drip with close glucose monitoring Else per resident documentation as noted. Subjective Overnight, Blood glucose spiked to >400. Carb coverage was adjusted to 1:8. patient reports she is feeling better in general. She reports residual cough, sob but she feels she has significantly improved. She denies Chest pain, calf pain, palpitation, fevers, chills Constitutional: no fever and no chills Respiratory: + cough and + dyspnea; no wheezing Cardiovascular: no chest pain, no palpitations, no edema and no calf pain Gastrointestinal: no abdominal pain, no nausea, no vomiting and no change in stools Genitourinary (Female): no dysuria, no urinary frequency and no urinary urgency Integumentary: no rash, no lesions and no change in skin color Neurologic: no localized weakness, no tingling and no numbness Physical Exam 2 Vital Signs (Past 24 Hours): Last Vital Signs Temp 36.7 C 04/19/18 07:00 Pulse 51 L 04/19/18 07:17 Resp 18 04/19/18 07:17 BP 132/81 04/19/18 07:00 Pulse Ox 93 04/19/18 07:17 Constitutional: WD/WN, vitals as above no acute distress Eyes: PERRL and EOM intact bilaterally ENMT: external ear and nose normal, oropharynx normal Neck: tracheostomy Respiratory: no respiratory distress, not tachypneic and no stridor coarse breath sounds Cardiovascular: RRR, no murmur, no edema Gastrointestinal (Abdomen): normal bowel sounds, soft, nontender, no hepatosplenomegaly Musculoskeletal: no calf tenderness, no LE edema Skin: no rashes, warm and dry Neurologic: PERRL, EOMI, accommodation nl, no face palsy, no dysarthria CN' s II-XI intact bilaterally and awake Psychiatric: Orientation: alert Results & Data Laboratory Results Laboratory Results WBC 9.26 K/uL (4.8-10.8) 02/02/19 05:40 RBC 3.15 M/uL (4.2-5.4) L 04/19/18 05:40 Hgb 10.5 g/dL (12.0-16.0) L 04/19/18 05:40 Hct 32.0 % (37-47) L 04/19/18 05:40 MCV 101.6 fL (80-100) H 04/19/18 05:40 MCH 33.3 pg (25-34) 04/19/18 05:40 MCHC 32.8 g/dL (32-36) 04/19/18 05:40 RDW Std Deviation 49.8 fL (36.4-46.3) H 04/19/18 05:40 RDW Coeff of Jackie 13.4 % (11.5-14.5) 04/19/18 05:40 Plt Count 187 K/uL (130-400) 04/19/18 05:40 MPV 10.6 fL (7.4-10.4) H 04/19/18 05:40 Immature Gran % (Auto) 0.9 % 04/19/18 05:40 Neut % (Auto) 76.0 % 04/19/18 05:40 Lymph % (Auto) 15.4 % 04/19/18 05:40 Vermilion % (Auto) 7.5 % 04/19/18 05:40 Eos % (Auto) 0.0 % 04/19/18 05:40 Baso % (Auto) 0.2 % 04/19/18 05:40 Immature Gran # (Auto) 0.08 K/uL (0.00-0.02) H 04/19/18 05:40 Neut # (Auto) 7.04 K/uL (1.4-6.5) H 04/19/18 05:40 Lymph # (Auto) 1.43 K/uL (1.2-3.4) 04/19/18 05:40 Vermilion # (Auto) 0.69 K/uL (0.11-0.59) H 04/19/18 05:40 Eos # (Auto) 0.00 K/uL (0-0.5) 04/19/18 05:40 Baso # (Auto) 0.02 K/uL (0-0.2) 04/19/18 05:40 RBC Morphology Unremarkable 04/15/18 03:25 PT 11.0 Seconds (9.0-12.0) 04/15/18 14:06 INR 1.1 (0.9-1.1) 04/15/18 14:06 Sodium 142 mmol/L (136-145) 04/19/18 05:40 Potassium 3.6 mmol/L (3.5-5.1) 04/19/18 05:40 Chloride 105 mmol/L (98-107) 04/19/18 05:40 Carbon Dioxide 32 mmol/L (21-32) 04/19/18 05:40 Anion Gap 6.0 (3-11) 04/19/18 05:40 BUN 17 mg/dl (7-18) 04/19/18 05:40 Creatinine 0.83 mg/dl (0.6-1.2) 04/19/18 05:40 Est Cr Clr Drug Dosing 67.0 ml/min 04/19/18 05:40 Est GFR ( Amer) 93.3 04/19/18 05:40 Est GFR (Non-Af Amer) 80.5 04/19/18 05:40 BUN/Creatinine Ratio 20.4 (10-20) H 04/19/18 05:40 Glucose 310 mg/dl (70-99) H 04/19/18 05:40 POC Glucose 394 (70-99) H* 04/19/18 16:44 Lactate 1.8 mmol/L (0.4-2.0) 04/15/18 03:25 Calcium 8.1 mg/dl (8.5-10.1) L 04/19/18 05:40 Troponin I < 0.015 ng/ml (0-0.045) 04/15/18 03:25 C-Reactive Protein 14.90 mg/dl (0-0.29) H 04/16/18 05:41 Beta-Hydroxybutyric Acd 1.16 mg/dl (0.2-2.81) 04/19/18 05:40 TSH 0.007 uIu/ml (0.300-4.500) L 04/18/18 06:42 Nasal Screen MRSA (PCR) Negative (Negative) 04/15/18 06:37 Vancomycin Trough 10.0 mcg/ml (See Comment) 04/17/18 03:37 Influenza Type A (PCR) Neg for Influ A (Neg) 04/15/18 03:10 Influenza Type B (PCR) Neg for Influ B (Neg) 04/15/18 03:10 Medications Administered Acetylcysteine (Mucomyst 20%) 4 ml INH BID [facility] Stop: 05/15/18 08:59 Last Admin: 04/19/18 07:15 Dose: 4 ml Admin: 04/18/18 23:10 Dose: 4 ml Admin: 04/18/18 06:57 Dose: 4 ml Admin: 04/17/18 19:20 Dose: 4 ml Admin: 04/17/18 07:04 Dose: 4 ml Admin: 04/16/18 22:58 Dose: 4 ml Admin: 04/16/18 07:12 Dose: 4 ml Admin: 04/16/18 01:29 Dose: Not Given Admin: 04/15/18 14:31 Dose: 4 ml Admin: 04/15/18 10:39 Dose: Not Given Albuterol (Ventolin 0.083% 2.5mg/3ml) 2.5 mg NEB Q8R [facility] Stop: 05/15/18 09:29 Last Admin: 04/19/18 15:07 Dose: 2.5 mg Admin: 04/19/18 07:15 Dose: 2.5 mg Admin: 04/18/18 23:10 Dose: 2.5 mg Admin: 04/18/18 15:23 Dose: 2.5 mg Admin: 04/18/18 06:57 Dose: 2.5 mg Admin: 04/17/18 23:29 Dose: 2.5 mg Admin: 04/17/18 15:45 Dose: Not Given Admin: 04/17/18 07:04 Dose: 2.5 mg Admin: 04/16/18 22:52 Dose: 2.5 mg Admin: 04/16/18 15:35 Dose: 2.5 mg Admin: 04/16/18 07:12 Dose: 2.5 mg Admin: 04/15/18 23:05 Dose: 2.5 mg Admin: 04/15/18 14:30 Dose: 2.5 mg Admin: 04/15/18 10:39 Dose: Not Given Amoxicillin/Clavulanate Potassium (Augmentin 875mg) 1 tab PO BIDM [facility] Stop: 04/26/18 07:59 Last Admin: 04/19/18 17:00 Dose: 1 tab Admin: 04/19/18 07:58 Dose: 1 tab Atorvastatin Calcium (Lipitor) 10 mg PO HS [facility] Stop: 05/15/18 20:59 Last Admin: 04/18/18 20:36 Dose: 10 mg Admin: 04/17/18 20:24 Dose: 10 mg Admin: 04/16/18 21:06 Dose: 10 mg Admin: 04/15/18 21:58 Dose: 10 mg Calcium Carbonate (Os-Eliceo 500) 1,250 mg PO BIDM [facility] Stop: 05/15/18 16:59 Last Admin: 04/19/18 17:00 Dose: 1,250 mg Admin: 04/19/18 07:59 Dose: 1,250 mg Admin: 04/18/18 18:00 Dose: 1,250 mg Admin: 04/18/18 09:29 Dose: 1,250 mg Admin: 04/17/18 17:42 Dose: 1,250 mg Admin: 04/17/18 08:02 Dose: 1,250 mg Admin: 04/16/18 17:32 Dose: 1,250 mg Admin: 04/16/18 07:48 Dose: 1,250 mg Admin: 04/15/18 17:27 Dose: 1,250 mg Citalopram Hydrobromide (Celexa) 40 mg PO QAM [facility] Stop: 05/15/18 08:59 Last Admin: 04/19/18 07:59 Dose: 40 mg Admin: 04/18/18 09:29 Dose: 40 mg Admin: 04/17/18 08:01 Dose: 40 mg Admin: 04/16/18 07:48 Dose: 40 mg Admin: 04/15/18 10:53 Dose: 40 mg Fexofenadine HCl (Danielle) 180 mg PO [facility] Stop: 05/15/18 20:59 Last Admin: 04/18/18 20:36 Dose: 180 mg Admin: 04/17/18 20:25 Dose: 180 mg Admin: 04/16/18 21:06 Dose: 180 mg Admin: 04/15/18 21:58 Dose: 180 mg Heparin Sodium (Porcine) (Heparin Sodium (Porcine)) 5,000 units SQ Q12 [facility] Stop: 05/15/18 20:59 Last Admin: 04/19/18 08:05 Dose: 5,000 units Admin: 04/18/18 20:37 Dose: 5,000 units Admin: 04/18/18 09:34 Dose: 5,000 units Admin: 04/17/18 20:27 Dose: 5,000 units Admin: 04/17/18 08:02 Dose: 5,000 units Admin: 04/16/18 21:08 Dose: 5,000 units Admin: 04/16/18 07:49 Dose: 5,000 units Admin: 04/15/18 21:57 Dose: 5,000 units Promethazine HCl 12.5 mg/ (Sodium Chloride) 50.5 mls @ 204 mls/hr IV Q6H PRN PRN Reason: Nausea And Vomiting Stop: 05/15/18 08:54 Last Infusion: 04/15/18 11:00 Dose: 0 mls/hr Admin: 04/15/18 10:39 Dose: 204 mls/hr Insulin Human Regular 250 (units/ Sodium Chloride) 250 mls @ 6.7 mls/hr IV .Q24H [facility]; Protocol Stop: 04/19/18 20:00 Last Titration: 04/19/18 17:04 Dose: 6.7 units/hr, 6.7 mls/hr Titration: 04/19/18 16:06 Dose: 4.8 units/hr, 4.8 mls/hr Titration: 04/19/18 15:12 Dose: 6 units/hr, 6 mls/hr Titration: 04/19/18 14:09 Dose: 2.4 units/hr, 2.4 mls/hr Admin: 04/19/18 12:58 Dose: 1.7 units/hr, 1.7 mls/hr Insulin Aspart (Novolog Flexpen) 0 units SC ACHS [facility] Stop: 05/17/18 16:29 Last Admin: 04/19/18 12:13 Dose: Not Given Admin: 04/19/18 08:07 Dose: 17 units Admin: 04/18/18 20:33 Dose: 18 units Admin: 04/18/18 18:07 Dose: 18 units Admin: 04/18/18 12:45 Dose: 12 units Admin: 04/18/18 09:33 Dose: 3 units Admin: 04/17/18 20:26 Dose: 16 units Admin: 04/17/18 17:41 Dose: 17 units Insulin Aspart (Novolog Flexpen) 0 units SC [facility] Stop: 04/19/18 19:59 Last Admin: 04/19/18 17:01 Dose: 12 units Admin: 04/19/18 13:03 Dose: Not Given Insulin Glargine (Lantus Solostar Pen) 18 units SC [facility]; Protocol Stop: 05/19/18 17:29 Last Admin: 04/19/18 17:01 Dose: 18 units [facility]othy[facility]ine [facility]) [facility] Stop: 05/15/18 07:29 Last Admin: 04/19/18 05:58 Dose: 150 mcg Admin: 04/18/18 06:39 Dose: 150 mcg Admin: 04/17/18 05:34 Dose: 150 mcg Admin: 04/16/18 07:50 Dose: 150 mcg Admin: 04/15/18 10:47 Dose: 150 mcg Miscellaneous (Order Awaiting Action) 1 ea N/A QS [facility] Stop: 05/15/18 15:59 Last Admin: 04/19/18 13:27 Dose: Not Given Admin: 04/19/18 08:06 Dose: Not Given Admin: 04/18/18 22:41 Dose: Not Given Admin: 04/18/18 14:02 Dose: Not Given Admin: 04/18/18 09:28 Dose: Not Given Admin: 04/17/18 23:01 Dose: Not Given Admin: 04/17/18 16:10 Dose: Not Given Admin: 04/17/18 09:23 Dose: Not Given Admin: 04/17/18 01:36 Dose: Not Given Admin: 04/16/18 17:07 Dose: Not Given Admin: 04/16/18 07:50 Dose: 1 ea Admin: 04/16/18 01:29 Dose: Not Given Admin: 04/15/18 17:29 Dose: Not Given Montelukast Sodium (Singulair) 10 mg PO PM [facility] Stop: 05/15/18 20:59 Last Admin: 04/18/18 20:36 Dose: 10 mg Admin: 04/17/18 20:25 Dose: 10 mg Admin: 04/16/18 21:07 Dose: 10 mg Admin: 04/15/18 21:57 Dose: 10 mg Multivitamins/Minerals (Multivitamin W/ Minerals Tab) 1 tab PO DAILY [facility] Stop: 05/15/18 08:59 Last Admin: 04/19/18 07:59 Dose: 1 tab Admin: 04/18/18 09:29 Dose: 1 tab Admin: 04/17/18 08:02 Dose: 1 tab Admin: 04/16/18 07:47 Dose: 1 tab Admin: 04/15/18 10:55 Dose: Not Given Breo Ellipta Non- Formulary Patient's Own Med 1 ea INH DAILY [facility] Stop: 05/15/18 16:59 Last Admin: 04/19/18 08:04 Dose: 1 inha Admin: 04/18/18 09:31 Dose: 1 inha Admin: 04/17/18 10:17 Dose: 1 inha Admin: 04/16/18 07:48 Dose: 1 inha Pantoprazole Sodium (Protonix) 40 mg PO QAM [facility] Stop: 05/15/18 08:59 Last Admin: 04/19/18 07:59 Dose: 40 mg Admin: 04/18/18 09:29 Dose: 40 mg Admin: 04/17/18 08:02 Dose: 40 mg Admin: 04/16/18 07:47 Dose: 40 mg Admin: 04/15/18 10:54 Dose: 40 mg Discontinued Medications Enoxaparin Sodium (Lovenox) 30 mg SQ BID [facility] Stop: 05/15/18 08:59 Last Admin: 04/15/18 10:53 Dose: 30 mg Hydrocortisone (Cortef) 50 mg PO TID [facility] Stop: 05/15/18 08:59 Last Admin: 04/15/18 10:20 Dose: Not Given Sodium Chloride (Nss 1000ml) 1,000 mls @ 999 mls/hr IV .Q1H1M ONE Stop: 04/15/18 04:18 Last Infusion: 04/15/18 05:27 Dose: 0 mls/hr Infusion: 04/15/18 04:35 Dose: 999 mls/hr Infusion: 04/15/18 04:04 Dose: 0 mls/hr Admin: 04/15/18 03:46 Dose: 999 mls/hr Piperacillin Sod/Tazobactam Sod (Zosyn) 4.5 gm in 120 mls @ 240 mls/hr IV NOW ONE Stop: 04/15/18 04:12 Last Infusion: 04/15/18 04:35 Dose: 0 mls/hr Admin: 04/15/18 04:02 Dose: 240 mls/hr Vancomycin HCl 1,250 mg/ (Sodium Chloride) 525 mls @ 200 mls/hr IV NOW ONE Stop: 04/15/18 06:37 Last Infusion: 04/15/18 08:15 Dose: 0 mls/hr Admin: 04/15/18 04:52 Dose: 200 mls/hr Sodium Chloride (Nss 1000ml) 500 mls @ 999 mls/hr IV .Q31M ONE Stop: 04/15/18 04:40 Last Infusion: 04/15/18 05:10 Dose: 0 mls/hr Admin: 04/15/18 04:33 Dose: 999 mls/hr Sodium Chloride (Nss 1000ml) 1,000 mls @ 100 mls/hr IV .Q10H [facility] Stop: 05/15/18 07:11 Last Infusion: 04/18/18 08:02 Dose: 0 mls/hr Admin: 04/17/18 12:32 Dose: 100 mls/hr Infusion: 04/17/18 12:31 Dose: 0 mls/hr Admin: 04/17/18 01:36 Dose: 100 mls/hr Infusion: 04/17/18 01:36 Dose: 100 mls/hr Admin: 04/16/18 17:07 Dose: 100 mls/hr Infusion: 04/16/18 17:07 Dose: 100 mls/hr Admin: 04/16/18 07:50 Dose: 100 mls/hr Infusion: 04/16/18 07:50 Dose: 100 mls/hr Admin: 04/15/18 21:54 Dose: 100 mls/hr Infusion: 04/15/18 21:18 Dose: 80 mls/hr Admin: 04/15/18 08:48 Dose: 80 mls/hr Methylprednisolone 50 mg/ (Syringe) 0.8 mls @ 1.5 mls/min IV Q8H [facility] Stop: 05/15/18 09:59 Last Admin: 04/16/18 10:00 Dose: 1.5 mls/min Admin: 04/16/18 02:33 Dose: 1.5 mls/min Admin: 04/15/18 17:26 Dose: 1.5 mls/min Admin: 04/15/18 10:49 Dose: 1.5 mls/min Piperacillin Sod/Tazobactam (Sod 3.375 gm/ Dextrose) 115 mls @ 28.75 mls/hr IV Q8H [facility]; Protocol Stop: 04/22/18 09:59 Last Infusion: 04/18/18 22:01 Dose: 0 mls/hr Admin: 04/18/18 17:59 Dose: 28.8 mls/hr Infusion: 04/18/18 14:01 Dose: 0 mls/hr Admin: 04/18/18 09:50 Dose: 28.8 mls/hr Infusion: 04/18/18 08:02 Dose: 0 mls/hr Admin: 04/18/18 02:55 Dose: 28.8 mls/hr Infusion: 04/17/18 23:01 Dose: 0 mls/hr Admin: 04/17/18 17:43 Dose: 28.8 mls/hr Infusion: 04/17/18 14:18 Dose: 28.8 mls/hr Admin: 04/17/18 10:18 Dose: 28.8 mls/hr Infusion: 04/17/18 06:11 Dose: 0 mls/hr Admin: 04/17/18 01:35 Dose: 28 mls/hr Infusion: 04/16/18 22:20 Dose: 0 mls/hr Admin: 04/16/18 17:34 Dose: 28 mls/hr Infusion: 04/16/18 15:46 Dose: 28 mls/hr Admin: 04/16/18 11:27 Dose: 28 mls/hr Infusion: 04/16/18 06:09 Dose: 0 mls/hr Admin: 04/16/18 02:32 Dose: 28.8 mls/hr Infusion: 04/15/18 21:39 Dose: 0 mls/hr Admin: 04/15/18 17:25 Dose: 28.8 mls/hr Infusion: 04/15/18 14:55 Dose: 0 mls/hr Admin: 04/15/18 10:54 Dose: 28.8 mls/hr Vancomycin HCl 1,000 mg/ (Sodium Chloride) 270 mls @ 125 mls/hr IV Q16H [facility] Stop: 04/22/18 19:59 Last Infusion: 04/17/18 07:19 Dose: 0 mls/hr Admin: 04/17/18 04:55 Dose: 125 mls/hr Infusion: 04/16/18 14:53 Dose: 0 mls/hr Admin: 04/16/18 12:38 Dose: 125 mls/hr Infusion: 04/16/18 00:12 Dose: 0 mls/hr Admin: 04/15/18 21:55 Dose: 125 mls/hr Insulin Human Regular 250 (units/ Sodium Chloride) 250 mls @ 2.4 mls/hr IV .Q24H [facility]; Protocol Stop: 05/15/18 21:44 Last Titration: 04/18/18 08:03 Dose: 0 units/hr, 0 mls/hr Admin: 04/18/18 08:00 Dose: Not Given Titration: 04/17/18 13:05 Dose: 2.4 units/hr, 2.4 mls/hr Titration: 04/17/18 10:20 Dose: 2 units/hr, 2 mls/hr Titration: 04/17/18 09:07 Dose: 1.7 units/hr, 1.7 mls/hr Titration: 04/17/18 08:00 Dose: 1.4 units/hr, 1.4 mls/hr Titration: 04/17/18 07:02 Dose: 1.4 units/hr, 1.4 mls/hr Titration: 04/17/18 06:07 Dose: 1.4 units/hr, 1.4 mls/hr Titration: 04/17/18 04:40 Dose: 0 units/hr, 0 mls/hr Titration: 04/17/18 03:42 Dose: 2.3 units/hr, 2.3 mls/hr Titration: 04/16/18 20:30 Dose: 2.9 units/hr, 2.9 mls/hr Titration: 04/16/18 20:07 Dose: 0 units/hr, 0 mls/hr Titration: 04/16/18 19:21 Dose: 4.8 units/hr, 4.8 mls/hr Titration: 04/16/18 16:34 Dose: 4 units/hr, 4 mls/hr Titration: 04/16/18 15:37 Dose: 3.3 units/hr, 3.3 mls/hr Titration: 04/16/18 14:48 Dose: 4.1 units/hr, 4.1 mls/hr Titration: 04/16/18 13:34 Dose: 3.4 units/hr, 3.4 mls/hr Titration: 04/16/18 11:31 Dose: 2.3 units/hr, 2.3 mls/hr Titration: 04/16/18 09:19 Dose: 2.9 units/hr, 2.9 mls/hr Titration: 04/16/18 07:02 Dose: 2.4 units/hr, 2.4 mls/hr Titration: 04/16/18 06:00 Dose: 2.4 units/hr, 2.4 mls/hr Titration: 04/16/18 05:01 Dose: 2.4 units/hr, 2.4 mls/hr Titration: 04/16/18 04:02 Dose: 2.4 units/hr, 2.4 mls/hr Titration: 04/16/18 03:10 Dose: 2 units/hr, 2 mls/hr Titration: 04/16/18 02:00 Dose: 2 units/hr, 2 mls/hr Titration: 04/16/18 00:58 Dose: 2 units/hr, 2 mls/hr Titration: 04/16/18 00:01 Dose: 1.7 units/hr, 1.7 mls/hr Titration: 04/15/18 23:00 Dose: 1.7 units/hr, 1.7 mls/hr Admin: 04/15/18 21:55 Dose: 1.7 units/hr, 1.7 mls/hr Insulin Human Regular 1.5 (units/ Syringe) 1.5 mls @ 0.75 mls/min IV TODAY@ 2145 [facility] Stop: 04/15/18 21:46 Last Admin: 04/15/18 21:56 Dose: 0.75 mls/min Insulin Human Regular 4 units/ (Syringe) 4 mls @ 1 mls/min IV TODAY@1000 [facility] Stop: 04/19/18 10:03 Last Admin: 04/19/18 09:51 Dose: 1 mls/min Insulin Aspart (Novolog Flexpen) 0 units SC ACHS [facility] Stop: 05/15/18 11:29 Last Admin: 04/15/18 22:32 Dose: Not Given Admin: 04/15/18 17:28 Dose: 10 units Admin: 04/15/18 12:30 Dose: 12 units Insulin Aspart (Novolog Flexpen) 0 units SC [facility] Stop: 05/16/18 08:59 Last Admin: 04/17/18 12:33 Dose: 2 units Admin: 04/17/18 10:17 Dose: 3 units Admin: 04/16/18 21:14 Dose: 3 units Admin: 04/16/18 17:35 Dose: 12 units Admin: 04/16/18 12:39 Dose: 6 units Admin: 04/16/18 09:21 Dose: 3 units Insulin Aspart (Novolog Flexpen) 0 units SC TODAY@2130 [facility] Stop: 04/17/18 21:31 Last Admin: 04/17/18 22:42 Dose: 11 units Insulin Glargine (Lantus Solostar Pen) 30 units SQ DAILY [facility] Stop: 05/15/18 08:59 Last Admin: 04/15/18 10:19 Dose: Not Given Insulin Glargine (Lantus Solostar Pen) 18 units SQ DAILY [facility] Stop: 05/15/18 09:44 Last Admin: 04/15/18 10:47 Dose: 18 units Insulin Glargine (Lantus Solostar Pen) 15 units SC [facility] Stop: 05/17/18 15:29 Last Admin: 04/18/18 20:35 Dose: 15 units Admin: 04/17/18 16:10 Dose: 15 units Miscellaneous (Order Awaiting Action) 1 ea N/A QS [facility] Stop: 05/15/18 07:59 Last Admin: 04/15/18 12:32 Dose: Not Given Admin: 04/15/18 10:53 Dose: Not Given Miscellaneous Information (Nursing To Pharmacy Communication) 1 ea N/A NOW STA Stop: 04/19/18 15:10 Last Admin: 04/19/18 15:12 Dose: 1 ea Prednisone (Prednisone) 40 mg PO DAILY [facility] Stop: 05/17/18 08:59 Last Admin: 04/19/18 08:01 Dose: 40 mg Admin: 04/18/18 09:29 Dose: 40 mg Admin: 04/17/18 08:02 Dose: 40 mg _ (1) Sepsis Sepsis type:
[2018-04-19 09:25] LABS: BUN Creatinine Ratio 20.4 (10-20); Calcium 8.1 mg/dl (8.5-10.1); Est GFR (African American) 93.3; Est GFR (Non-African American) 80.5; Potassium 3.6 mmol/L (3.5-5.1)
[2018-04-19] MEDS ORDERED: INSULIN HUMAN REGULAR IV BOLUS 4 UNITS in SYRINGE 0 ML IV ONE (10:00)
[2018-04-19] MEDS ORDERED: INSULIN REGULAR 250 UNITS in SODIUM CHLORIDE 0.9% 247.5 ML IV SCH (12:30)
[2018-04-19] MEDS ORDERED: PHARMACY GLYCEMIC MGMT CONSULT PRN (15:02)
[2018-04-19] MEDS ORDERED: Nursing to Pharmacy Communication STA (15:09)
--- NOTE | 2018-04-19 15:21 | Progress Note ---
DATE: 04/19/2018 PULMONARY PROGRESS NOTE TIME: 2:50 p.m. SUBJECTIVE: The patient is currently quite sleepy once again. Her mom was present. I discussed the case with nursing. Her blood sugars are up to 590. Perhaps, this has supplemented with her lethargy. Reportedly, there has been no complaint of shortness of breath. However, her saturations had been low reportedly when she was just on nasal cannula. She was then changed to a trach collar. OBJECTIVE: GENERAL: The patient is quite sleepy, but arousable. VITAL SIGNS: Temperature is 36.4. She has not had any fevers in the past 24 hours. Cardiac rate is 54 per minute. Rhythm is regular. Blood pressure is 111/66. LUNGS: Auscultation of the lung dunham revealed mild rhonchi bilaterally. Respiratory rate was 24 and not labored. Saturation is 90% on trach collar with 2 liters. EXTREMITIES: Showed no cyanosis, clubbing or edema. LABORATORY DATA: The sputum culture is showing E. coli ESBL. ID has been consulted. White count today is down to 9.26. Hemoglobin 10.5. Platelets 187,000. Chest x-ray done yesterday showed bibasilar airspace opacities, greater on the right. IMPRESSION: 1. Bilateral pneumonia, likely secondary to aspiration. 2. Atelectasis. 3. Status post tracheostomy. 4. Obstructive sleep apnea. COMMENTS AND RECOMMENDATIONS: The patient is now noted to be ESBL positive. It could be this is a colonizer rather than a pathogen. Will await the ID opinion. Her blood sugars may be affecting her level of alertness. She seems vital shore stable. She is now going on an insulin drip. Would continue with her current breathing medicines. I am going to decrease the prednisone to 20 mg daily in light of the very high blood sugars.
[2018-04-19] MEDS: INSULIN GLARGINE SOLOSTAR 100 UNITS/ML 3 ML PEN SC SCH (17:01)
[2018-04-19] MEDS ORDERED: DC IV INSULIN INFUSION 1 EA DEVI ONE (20:00)
[2018-04-19] MEDS: FEXOFENADINE HCL 180 MG TAB PO SCH (21:29)
[2018-04-19] MEDS: ATORVASTATIN 10 MG TAB PO SCH (21:29)
[2018-04-19] MEDS: MONTELUKAST SODIUM 10 MG TABLET PO SCH (21:29)
[2018-04-20] MEDS: INSULIN ASPART 100 UNITS/ML 3 ML PEN SC SCH ×6 (00:10→21:52)
[2018-04-20] MEDS: LEVOTHYROXINE SODIUM 150 MCG TABLET PO SCH (04:07)
[2018-04-20 06:49] LABS: Basophils # (auto) 0.02 K/uL (0-0.2); Basophils % (auto) 0.3 %; Eosinophils # (auto) 0.02 K/uL (0-0.5); Eosinophils % (auto) 0.3 %; Hemoglobin 11.2 g/dL (12.0-16.0); Immature Granulocytes # (auto) 0.18 K/uL (0.00-0.02); Immature Granulocytes % (auto) 2.4 %; Lymphocytes # (auto) 2.16 K/uL (1.2-3.4); Lymphocytes % (auto) 28.7 %; Mean Corpuscular Hgb Conc 32.9 g/dL (32-36); Mean Corpuscular Volume 101.8 fL (80-100); Mean Platelet Volume 10.4 fL (7.4-10.4); Monocytes # (auto) 0.58 K/uL (0.11-0.59); Monocytes % (auto) 7.7 %; Neutrophils # (auto) 4.57 K/uL (1.4-6.5); Neutrophils % (auto) 60.6 %; Platelet Count 196 K/uL (130-400); RDW Coefficient of Variation 13.6 % (11.5-14.5); RDW Standard Deviation 50.6 fL (36.4-46.3); Red Blood Count 3.34 M/uL (4.2-5.4); White Blood Count 7.53 K/uL (4.8-10.8)
[2018-04-20] MEDS: ACETYLCYSTEINE 20% INHAL SOLN ***DISPENSED BY RESP. INH SCH (07:03)
[2018-04-20] MEDS: ALBUTEROL 0.083% NEBU SOLN 3 ML VIAL NEB SCH ×3 (07:03→23:05)
[2018-04-20 07:18] LABS: BUN Creatinine Ratio 19.6 (10-20); Calcium 8.2 mg/dl (8.5-10.1); Creatinine Clr Calc Pharmacy 89.8 ml/min; Est GFR (African American) 119.3; Est GFR (Non-African American) 102.9; Potassium 3.3 mmol/L (3.5-5.1)
--- NOTE | 2018-04-20 08:13 | Infectious Disease Consult ---
Date of Consultation April 20, 2018 Assessment & Plan (1) Aspiration pneumonia: agree with augmentin, would give 14 days total. continue pulm toilet and supportive O2. History of Present Illness Attending Physician: Wes Cook MD pt admitted with fever of 103 and increased sputum production from long standing trach site. h/o aspiration pna. sputum culture done in ER, growing ESBL + E. coli. WBC initially as high as 29, significantly improved to 9. Isolate sensitive to amp/sulbactam, she has been on augmentin and prednisone, tolerating well. trach collar O2 on my exam today, awake, comfortable, no cough or secretions noted. afebrile. most recent cxr on 04/18 did show R sided opacity. blood cultures from admission negative. Allergies Allergy/AdvReac Type Severity Reaction Status Date / Time cefaclor Allergy Intermediate HIVES Verified 04/17/18 13:19 Cephalosporins Allergy Intermediate rash per Verified 03/31/18 12:58 mother sertraline Allergy Unknown INTOLERANCE Verified 03/31/18 13:13 Home Medications Home Medications Medication Instructions Recorded Confirmed Type albuterol sulfate 1 neb INHALATION TID 02/13/18 04/15/18 History atorvastatin 10 mg PO HS 02/13/18 04/15/18 History calcium carbonate [Oyster Shell 500 mg PO BIDM 02/13/18 04/15/18 History Calcium 500] citalopram 40 mg PO QAM 02/13/18 04/15/18 History clotrimazole 1 applic TOPICAL TID PRN 02/13/18 04/15/18 History glucagon (human recombinant) 1 mg IM DIRECTED PRN 02/13/18 04/15/18 History [Glucagon Emergency Kit (human)] montelukast 10 mg PO PM 02/13/18 04/15/18 History omeprazole 20 mg PO QAM 02/13/18 04/15/18 History promethazine 12.5 mg PO Q8H PRN 02/13/18 04/15/18 History starch (thickening) [Thick-It] 1 packet PO DAILY 02/13/18 04/15/18 History acetylcysteine 4 ml INHALATION BID 03/07/18 04/15/18 History fexofenadine [Danielle Allergy] 180 mg PO HS 03/07/18 04/15/18 History insulin aspart U-100 0 unit CONTINUOUS SUBCUTANEOUS 03/07/18 04/15/18 History INFUSION UD acetaminophen [Mapap 650 mg PO Q4H PRN #30 tab 03/10/18 04/15/18 Rx (acetaminophen)] prednisone 10 mg PO BID #7 tab 03/10/18 04/15/18 Rx fluconazole 150 mg PO DIRECTED 04/15/18 04/15/18 History fluoride (sodium) [Phos-Flur] 15 ml DENTAL HS 04/15/18 04/15/18 History fluticasone-vilanterol [Breo 1 inh INHALATION DAILY 04/15/18 04/15/18 History Ellipta] furosemide [Lasix] 20 mg PO DAILY PRN 04/15/18 04/15/18 History insulin glargine [Basaglar KwikPen 25 - 30 unit SUBCUT DAILY 04/15/18 04/15/18 History U-100 Insulin] levothyroxine 150 mcg PO DAILY 04/15/18 04/15/18 History multivitamin,qk-ovtl-cmzgzuzc 1 tab PO DAILY 04/15/18 04/15/18 History [Therems-M] Patient History Medical History MRSA (methicillin resistant Staphylococcus aureus) E. coli infection Hypothyroidism GERD (gastroesophageal reflux disease) Seizure-like activity (Resolved) Chronic obstructive pulmonary disease (Acute) Diabetes mellitus, type 2 (Acute) Presence of tracheostomy (Acute) Congenital heart disease On home oxygen therapy Surgical History Hx of tracheostomy History of thoracotomy (Acute) Social History Current Living Situation: Personal Care Facility Current Living Situation Comment: half-way Feels Safe at Home: Yes Smoking Status: Never smoker Second Hand Exposure: No Hx Alcohol Use: No Hx Substance Use: No Beliefs That Will Affect Care: None Communication Ability: Impaired Review of Systems negative per chart Physical Exam 2 Vital Signs (Past 24 Hours): Last Vital Signs Temp 36.7 C 04/20/18 07:07 Pulse 40 L 04/20/18 07:07 Resp 20 04/20/18 07:07 BP 119/76 04/20/18 07:07 Pulse Ox 94 04/20/18 07:07 Constitutional: well developed and well nourished Eyes: PERRL, conjunctivae normal, anicteric sclerae ENMT: external ear and nose normal, oropharynx normal Neck: normal visual inspection Respiratory: normal respiratory effort, lungs clear to auscultation Auscultation: + diminished lung sounds Cardiovascular: RRR, no murmur, no edema Gastrointestinal (Abdomen): normal bowel sounds, soft, nontender, no hepatosplenomegaly Musculoskeletal: no cyanosis or clubbing, extremities motor strength 5/5 Skin: no rashes, warm and dry Psychiatric: Orientation: alert and cooperative Results & Data Laboratory Results Microbiology 04/15/18 03:41 Blood Blood Culture - Final No growth 04/15/18 03:25 Blood Blood Culture - Final No growth 04/16/18 00:05 Sputum,Trach Gram Stain - Final 04/16/18 00:05 Sputum,Trach Sputum Culture - Final Escherichia coli ESBL
[2018-04-20] MEDS: NovoLIN-N (NPH) PER UNIT CHARGE SQ SCH (08:18)
[2018-04-20] MEDS: AMOXICILLIN/CLAVULANATE 875 MG TAB PO SCH ×2 (08:19→17:07)
[2018-04-20] MEDS: predniSONE 20 MG TAB PO SCH (08:20)
[2018-04-20] MEDS: PANTOprazole 40 MG TAB PO SCH (08:20)
[2018-04-20] MEDS: CALCIUM CARBONATE 1250MG TAB PO SCH ×2 (08:20→17:07)
[2018-04-20] MEDS: HEPARIN SOD 5,000 UNIT/0.5 ML VIAL SQ SCH ×2 (08:20→20:48)
[2018-04-20] MEDS: CITALOPRAM 40 MG TAB PO SCH (08:20)
[2018-04-20] MEDS: CEROVITE ADV FORMULA TAB PO SCH (08:20)
[2018-04-20] MEDS: BREO ELLIPTA INH SCH (08:21)
[2018-04-20] MEDS ORDERED: NovoLIN-N (NPH) PER UNIT CHARGE SQ SCH (09:00)
--- NOTE | 2018-04-20 09:00 | Family Medicine Progress Note ---
Date of Service April 20, 2018 Assessment & Plan (1) Sepsis: (1) Sepsis: Ms. Roca is a 52-year-old female with a complex past medical history including Down syndrome, diabetes mellitus, hyperlipidemia, hypothyroidism, pulmonary hypertension, tracheal stenosis with permanent tracheostomy, recurrent aspiration pneumonia, chronic hypoxic respiratory failure (2L oxygen at rest, 4 L oxygen with activity) Presented to [facility] due to a fever and hypoxia. Patient was recently seen by her focus puller in the clinic and started on Levaquin. She has multiple prior admissions to the hospital for aspiration pneumonia, the most recent admissions were on 02/14-02/16 and again on 03/07-03/10. - Clinically improving , white ct normal, afebrile - Currently on Augmentin, however sputum cx positive for ESBL species which could be potentially colonization given overall clinical improvement despite lack of abx coverage for ESBL - consulted Infectious disease for input and consider broadening pending recommendations - Continue po. 40 mg prednisone daily (2) Acute on chronic respiratory failure with hypoxemia: - Continue scheduled albuterol nebs q8hr - Maintain on baseline supplemental oxygen 2L via trach - Pulmonology following, appreciate recommendations (3) Bradycardia: -etiology unclear -Seen by Cardiology -recommended outpatient evaluation for pacemaker on discharge (4) Pneumonia: - Per discussion with family, patient has a chronic aspiration risk. Family was offered placement of a feeding tube, however they declined. - Speech therapy consulted - Management as above (5) Type 1 diabetes: - has an insulin pump at home - Currently on Lantus 18 units daily, anNPH 13 daily, d insulin sliding scale ordered - Continue insulin drip until glucose better controlled (6) HLD (hyperlipidemia): - cont home statin (7) Depression: - continue home citalopram (8) CAMILLA (obstructive sleep apnea): - nocturnal Bipap (9) Hypothyroidism: - continue home synthroid Code status: DNR Disposition: remains on telemetry DVT prophylaxis: 5,000 units heparin SQ BID Supervising Physician Co-Signing Physician Notes Attending attestation Pt seen and examined in concert with Dr. Ayala. In agreement with the documented findings as noted in the resident documentation with any exceptions or additions as noted here. Pt much more alert and interactive today - reports improved shortness of breath and diminished cough. On examination, S1/S2 nl RRR no MCG. Diffuse rhonchi and wheeze with improved air movement from previous. Abd NT/ND BS +ve DMI, uncontrolled off the insulin drip, now on glargine and 70/30 with sliding scale. Discuss with pharmacy regarding reinstituting pump today. Sepsis secondary to aspiration PNA w/ new ESBL on sputum culture continued clinical improvement. Continue augmentin and PO prednisone. Else per resident documentation as noted. Subjective Blood glucose ranging from 200-300's overnight while on insulin drip. Patient overall feels improved. She reports cough, sob improved. She has some chest discomfort with coughing, denies fevers, chills , fatigue, headache Constitutional: no fever and no chills Eyes: no worsening vision Respiratory: + cough and + dyspnea; no wheezing Cardiovascular: no palpitations, no edema and no calf pain Gastrointestinal: no abdominal pain, no nausea, no vomiting and no change in stools Genitourinary (Female): no dysuria, no urinary frequency and no urinary urgency Musculoskeletal: no back pain Integumentary: no rash, no lesions and no change in skin color Neurologic: no localized weakness Physical Exam 2 Vital Signs (Past 24 Hours): Last Vital Signs Temp 36.7 C 04/20/18 07:07 Pulse 44 L 04/20/18 07:08 Resp 18 04/20/18 07:08 BP 119/76 04/20/18 07:07 Pulse Ox 91 04/20/18 07:08 Constitutional: WD/WN, vitals as above no acute distress Eyes: PERRL and EOM intact bilaterally ENMT: external ear and nose normal, oropharynx normal Respiratory: no respiratory distress, not tachypneic and no stridor coarse breath sounds Cardiovascular: RRR, no murmur, no edema Gastrointestinal (Abdomen): normal bowel sounds, soft, nontender, no hepatosplenomegaly Skin: no rashes, warm and dry Neurologic: CN's II-XI intact bilaterally (grossly) and awake Psychiatric: Orientation: alert Resident Activity Tracking Resident Involvement: Resident Care Provided Care Provided: [facility] Medicine _ (1) Sepsis Sepsis type:
[2018-04-20] MEDS ORDERED: POTASSIUM CHLORIDE 20 MEQ TABCR PO ONE (11:15)
--- NOTE | 2018-04-20 11:16 | Pharmacy Report ---
Glycemic Control Consultation - Date of Service April 20, 2018 - Scope Scope: Glycemic Pharmacist consulted by Dr Ayala on 04/20/18 for glycemic control and to write orders per [facility] inpatient glycemic control protocol - Objective Weight: 67.2 kg Accuchecks BSG (last 24hrs): 04/19/18 04/19/18 04/19/18 11:33 11:35 13:58 Glucose POC Glucose 387 H* 396 H* 590 H* 04/19/18 04/19/18 04/19/18 14:02 16:01 16:44 Glucose POC Glucose 571 H* 387 H* 394 H* 04/19/18 04/19/18 04/19/18 17:58 18:54 20:22 Glucose POC Glucose 323 H 285 H 209 H 04/20/18 04/20/18 04/20/18 00:06 04:01 06:23 Glucose 237 H POC Glucose 304 H 198 H 04/20/18 07:41 Glucose POC Glucose 290 H Laboratory Data (last 24hrs): 04/20/18 06:23 Potassium 3.3 L Carbon Dioxide 33 H Anion Gap 4.0 Creatinine 0.62 Est Cr Clr Drug Dosing 89.8 HbA1c: 9.3% on 02/2018 - Recent Pertinent Medications Outpatient Anti-diabetic Regimen: * NovoLog insulin pump The patient is currently receiving: * Basal insulin: Lantus 18 units every 24 hours given at bedtime * Correctional Insulin: Novolog Correction per scale ACHS Goal Range: Low 110 mg/dL - High 150 mg/dL Correction Factor: 30 mg/dL/unit * Prandial insulin: Per carb ratio of 1 unit per 10 grams CHO consumed * NPH 13 units (0.2 units/kg) SQ daily with prednisone administration Risk Factors for Insulin Resistance: * Steroids * Diet * Infection - Assessment & Plan Assessment & Plan: ASSESSMENT: * 52yo Type 1 diabetic well known to pharmacy from previous admissions/glycemic consults * Pt with extremely brittle diabetes- high glycemic variation and dramatic BSG swings * Pt with severe hyperglycemia secondary to prednisone. * IV insulin infusion re-initiated on 04/19/18 morning for severe hyperglycemia. Transitioned off of IV insulin infusion that evening. * Pt will need all of her basal needs PLUS additional 0.2 units/kg for prednsione 20mg/day * NPH insulin is used to counteract the hyperglycemic effect of prednisone. The rationale for this approach is that the pharmacodynamics profile of NPH, with a peak effect of 4-8hrs and duration of action of 12-16hrs, mirrors the pharmacodynamics of prednisone. NPH should be dosed at the same time that prednisone is given * The dose of NPH given is dependent on the steroid dose given * For doses of prednisone 20mg/day NPH dose should be 0.2 units/kg * NPH dosing above is given in addition to patients basal insulin needs and rapid-acting insulin with meals PLAN FOR INPATIENT GLYCEMIC CONTROL: * Transition off of IV insulin infusion per protocol * Gave basal insulin early - overlap insulin infusion x 4-6hrs. July d/c IV insulin infusion when held per calculator or 6 hrs after Lantus dose; whichever happens sooner * Increased IV insulin infusion rate to 0.1 units/kg/hr --> CHO coverage was not given at lunch time; pt consumed 90g CHO * Basal insulin * Lantus 18 units SQ Q24hrs - give at bedtime * Bolus insulin * NovoLog per scale ACHS or Q6hrs while NPO * Goal Range: Low 100 mg/dL - High 150 mg/dL * Correction Factor: 30 mg/dL/unit * Nutritional / Prandial insulin per carb ratio of 1 unit per 10 grams CHO consumed * Steroid induced hyperglycemia * NPH 13 units (0.2 units/kg) to cover prednisone 20mg. NPH should be given at the same time as prednisone * Please note that the plan above was derived based on current level of insulin resistance and hospital stress. These recommendations are appropriate for inpatient admission only. Plan of care upon discharge will need to be reassessed to avoid potential outpatient hypo/hyperglycemia. Thank you.
[2018-04-20] MEDS: FEXOFENADINE HCL 180 MG TAB PO SCH (20:48)
[2018-04-20] MEDS: ATORVASTATIN 10 MG TAB PO SCH (20:48)
[2018-04-20] MEDS: MONTELUKAST SODIUM 10 MG TABLET PO SCH (20:48)
[2018-04-20] MEDS ORDERED: HEPARIN 100 UNIT/ML 5ML FLUSH FLUSH PRN (21:14)
[2018-04-20] MEDS: INSULIN GLARGINE SOLOSTAR 100 UNITS/ML 3 ML PEN SC SCH (21:53)
[2018-04-21] MEDS: LEVOTHYROXINE SODIUM 150 MCG TABLET PO SCH (06:02)
[2018-04-21 06:31] LABS: Hematocrit (blood only) 35.3 % (37-47); Hemoglobin 11.3 g/dL (12.0-16.0); Mean Corpuscular Volume 103.2 fL (80-100); Mean Platelet Volume 9.9 fL (7.4-10.4); Platelet Count 219 K/uL (130-400); RDW Coefficient of Variation 13.7 % (11.5-14.5); RDW Standard Deviation 51.5 fL (36.4-46.3); Red Blood Count 3.42 M/uL (4.2-5.4); White Blood Count 7.14 K/uL (4.8-10.8)
[2018-04-21] MEDS: ALBUTEROL 0.083% NEBU SOLN 3 ML VIAL NEB SCH ×2 (07:11→15:44)
[2018-04-21] MEDS: NovoLIN-N (NPH) PER UNIT CHARGE SQ SCH (08:53)
[2018-04-21] MEDS: HEPARIN SOD 5,000 UNIT/0.5 ML VIAL SQ SCH (08:53)
[2018-04-21] MEDS: predniSONE 20 MG TAB PO SCH (08:53)
[2018-04-21] MEDS: PANTOprazole 40 MG TAB PO SCH (08:54)
[2018-04-21] MEDS: AMOXICILLIN/CLAVULANATE 875 MG TAB PO SCH (08:54)
[2018-04-21] MEDS: CEROVITE ADV FORMULA TAB PO SCH (08:54)
[2018-04-21] MEDS: CITALOPRAM 40 MG TAB PO SCH (08:54)
[2018-04-21] MEDS: BREO ELLIPTA INH SCH (08:56)
[2018-04-21] MEDS: CALCIUM CARBONATE 1250MG TAB PO SCH (08:56)
[2018-04-21] MEDS: INSULIN ASPART 100 UNITS/ML 3 ML PEN SC SCH ×2 (08:57→12:18)
--- NOTE | 2018-04-21 13:14 | Discharge Summary ---
Addendum entered and electronically signed by Randi Esparza MD 04/21/18 14:52: Addendum (Blank) Addendum April 21, 2018 14:52 Original Note: Date of Service April 21, 2018 Admission HPI Per Admitting Provider 52 y/o F with a complex medical history including Down syndrome, DM, HLD, hypothyroidism, pulmonary HTN, tracheal stenosis with permanent tracheostomy, recurrent aspiration pneumonia, chronic hypoxic respiratory failure - 2L 02 at rest, 4L O2 with activity/nocturnal, CAMILLA. The pt was recently admitted to the hospital for aspiration PNM 02/14-02/16, then again 03/07-03/10. Since one week ago, pt has felt ill, +cough and thick green mucous was draining from her trach. Was seen by her courseware developer in the clinic and started on Levaquin. Since then has complained of some nausea. Today spiked a fever 103, tylenol given. Saturating 88% on 4L, and so presented to the ED. History reported by caregiver named Jaleesa at bedside. Denies lethargy, vomiting, diarrhea, constipation. Endorses sick contact at her facility who was diagnosed with viral URI and treated conservatively. Endorses poor appetite. "Today is the first time she's spiked a fever in months". 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 Does not drink or smoke ED course: given fluids, supplemental O2 via trach currently satting 95% on 11L. BP lower than baseline. Fluid boluses given. Vanc zosyn begun. CBC remarkable for leukocytosis WBC 24.06, hgb at baseline. Principal Diagnosis Aspiration Pneumonia Discharge Exam Constitutional well developed, well nourished and cooperative; not in distress Respiratory normal respiratory effort; no respiratory distress Auscultation: lungs clear to auscultation bilaterally and + diminished lung sounds; no wheezes Cardiovascular Rate/Rhythm: regular rhythm and + bradycardic Heart Sounds: normal S1 and normal S2 Extremities: no calf tenderness and no pedal edema Gastrointestinal (Abdomen) normal bowel sounds, soft, nontender, no hepatosplenomegaly Discharge Data Allergies Allergy/AdvReac Type Severity Reaction Status Date / Time cefaclor Allergy Intermediate HIVES Verified 04/17/18 13:19 Cephalosporins Allergy Intermediate rash per Verified 03/31/18 12:58 mother sertraline Allergy Unknown INTOLERANCE Verified 03/31/18 13:13 Consultations 04/15/18 04:08 ED Decision to Admit Stat 04/15/18 07:12 Consult Case Management - Discharge Planning Routine Consult Pulmonology Routine 04/17/18 15:37 Consult Cardiology Routine 04/19/18 10:30 Consult Infectious Diseases Routine Hospital Course (1) Sepsis: (1) Sepsis: Ms. Roca is a 52-year-old female with a complex past medical history including Down syndrome, diabetes mellitus, hyperlipidemia, hypothyroidism, pulmonary hypertension, tracheal stenosis with permanent tracheostomy, recurrent aspiration pneumonia, chronic hypoxic respiratory failure (2L oxygen at rest, 4 L oxygen with activity) Presented to [facility] due to a fever and hypoxia. Patient was recently seen by her courseware developer in the clinic and started on Levaquin. She has multiple prior admissions to the hospital for aspiration pneumonia, the most recent admissions were on 02/14-02/16 and again on 03/07-03/10. - CXR showed bilateral basilar infiltrates, right worse than left - blood cultures negative - Clinically improving - discharged home on augmentin, with 7 days left to complete a 14 day course - sputum cx positive for ESBL species, felt to be colonization given improvement on augmentin - treated with IV steroids, transitioned back to home dose of prednisone on discharge (2) Acute on chronic respiratory failure with hypoxemia: - back to baseline supplemental oxygen 2L via trach, 4L with exertion - follows w/pulmonology in clinic (3) Bradycardia: -etiology unclear, asymptomatic -HR dropped as low as 38 in hospital -Seen by Cardiology who recommended outpatient evaluation for pacemaker - f/u arranged (4) Pneumonia: - Per discussion with family, patient has a chronic aspiration risk. Family was previously offered placement of a feeding tube, however they declined. - Speech therapy consulted -> recommendations listed below (5) Type 1 diabetes: - placed on IV insulin drip in hospital given high sugars whilst on IV steroids - transitioned back to home regimen on d/c Total Time Total Time Spent Total Time Spent (In Minutes): <30 Discharge Plan Discharge Items Patient Disposition: Personal Retirement Reason For Visit: ACUTE ON CHRONIC RESP FAILURE Discharge Diagnosis: Pneumonia Discharge Goals: Decrease discomfort, Improve function and Increase independence Activity: Resume your previous activity Non-emergency contact: Primary Care Provider Call non-emergency contact if: you have any medication questions, your symptoms worsen and you have a fever Follow-up/Referrals: Vladimir Lucio MD [Primary Care Provider] - 04/25/18 1:20 pm (Please, follow up with Dr. Lucio on SaturdayApril 25 at 1:20 pm. *If you need to change this appointment, call the office at [phone].) Wes Hughes MD [Ski Base Trimmer] - 05/05/18 1:00 pm (Please, follow up at [facility] Cardiology Office with Dr. Hughes on SaturdayMay 05 at 1:00 pm. *This office is located in [address] of [facility] - big building next to this hospital. If you need to change this appointment, call the office at [phone].) Diet: Carb Count or DM1 Addtl Provider Instructions: Ms. Early was admitted to [facility] with an aspiration pneumonia. 1) Aspiration pneumonia - she was treated with IV antibiotics and steroids - she was seen by our lung doctor, Dr. Chavira - she will be discharged with 7 days of Augmentin to take to finish her course of antibiotics - resume her home dose of oral prednisone 2) Slow heart rate - her heart rate was noted to be low, and she was seen by our sales development specialist, who recommended placement of a pacemaker - We will be arranging follow-up in clinic with a sales development specialist 3) high sugar levels - Her sugar levels were high due to her being treated with IV steroids - She was placed on an insulin drip, however this was discontinued prior to her discharge - Given she is back at her home dose of steroids, can continue her home dose of insulin 4) Aspiration risk -the speech therapist recommended a moist soft bite-sized [dental softn NOT pureed] diet with nectar thick liquids. They also recommended cleaning all surfaces of her mouth prior to oral intake in the morning, after meals, and before going to bed at night to minimize oral bacteria that the patient will aspirate in her secretions. They also recommended using a low flow or safe straw to minimize aspiration. Prescriptions: New amoxicillin-pot clavulanate 875-125 mg Tablet 1 tab PO BIDM 7 Days Qty: 14 RF: 0 Continue levothyroxine 150 mcg Tablet 150 mcg PO DAILY RF: 0 fluoride (sodium) [Phos-Flur] 0.02 % (0.044 % sod. fluoride) Solution 15 ml DENTAL HS RF: 0 multivitamin,sw-icfx-nlalktne [Therems-M] 27-0.4 mg Tablet 1 tab PO DAILY RF: 0 fluticasone-vilanterol [Breo Ellipta] 100-25 mcg/dose Blister With Device 1 inh INHALATION DAILY RF: 0 insulin glargine [Basaglar KwikPen U-100 Insulin] 100 unit/mL (3 mL) Insulin Pen 25 - 30 unit SUBCUT DAILY RF: 0 furosemide [Lasix] 20 mg Tablet 20 mg PO DAILY PRN (Reason: Weight Gain) RF: 0 fluconazole 150 mg Tablet 150 mg PO DIRECTED RF: 0 albuterol sulfate 90 mcg/actuation Hfa Aerosol Inhaler 1 neb INHALATION TID RF: 0 atorvastatin 10 mg Tablet 10 mg PO HS RF: 0 citalopram 40 mg Tablet 40 mg PO QAM RF: 0 montelukast 10 mg Tablet 10 mg PO PM RF: 0 omeprazole 20 mg Capsule,Delayed Release(Dr/Ec) 20 mg PO QAM RF: 0 calcium carbonate [Oyster Shell Calcium 500] 500 mg calcium (1,250 mg) Tablet 500 mg PO BIDM RF: 0 starch (thickening) [Thick-It] Powder 1 packet PO DAILY RF: 0 clotrimazole 1 % Cream 1 applic TOPICAL TID PRN (Reason: Rash) RF: 0 glucagon (human recombinant) [Glucagon Emergency Kit (human)] 1 mg Recon Soln 1 mg IM DIRECTED PRN (Reason: Hypoglycemia) RF: 0 promethazine 12.5 mg Tablet 12.5 mg PO Q8H PRN (Reason: Nausea) RF: 0 acetylcysteine 200 mg/mL (20 %) Solution 4 ml INHALATION BID RF: 0 fexofenadine [Danielle Allergy] 180 mg Tablet 180 mg PO HS RF: 0 insulin aspart U-100 100 unit/mL solution Continuous Subcutaneous Infusion UD RF: 0 acetaminophen [Mapap (acetaminophen)] 325 mg Tablet 650 mg PO Q4H PRN (Reason: fever or pain) Qty: 30 RF: 0 prednisone 10 mg tablet 10 mg PO BID Qty: 7 RF: 0 Stand-Alone Forms: My [facility]/Other Patient Handouts: Pneumonia, Pneumonia Prevent, Aspiration Ch, ED Bradycardia Discharge Orders: Discharge Order (Routine); Ordered 04/21/18 Ordered By: Randi Esparza Admission Data Admit Date/Time: 04/15/18 05:38 Attending Provider: Kane Mcdermott Admit Provider: Jayashree Arias Primary Care Provider: Vladimir Lucio Other Providers: Mazin Funes ; Vladimir Salas ; Angel Mandujano ; Lyssa Diamond ; Saroj Charles Jessica L. ; Keo Chavira ; Raquel Avalos ; Hussein Killian ; Aiyana Cormier ; Nena Jones ; Dontrell Arteaga ; Ap Santana ; Salvatore Ozuna ; Antonio Floyd ; Vladimir Pina ; Prabhjot Bautista ; Ryan Simeon Jr ; Sherif Aguila ; Katrina Whitman ; Tiffani Dexter ; Wes Browning ; Wes Hughes ; Angel Dean ; Jelani Penn ; Mic Diggs ; Janessa Dash ; Kianna Membreno ; Everett Mederos ; Wes Cook Service: Telemetry Other Interventions: Discharge Summary Assessment (RN) Last Done: 04/21/18 14:55 DC Date/Time DO NOT enter until pt leaves facility: 04/21/18 16:03 Supervising Physician Co-Signing Physician Notes I personally examined the patient and verified all tanner points of history and exam, discussed case, and agree with decision making with Dr Esparza. Feeling better, wants to go home. No complaints at this time. Vitals noted, in general she is awake and alert appears to be at about her baseline to the best that I know her, appears in no distress. HEENT normocephalic atraumatic mucous membranes are moist. Lungs show snoring type rhonchi on the left worse than right but good air entry otherwise no accessory muscle use good effort Recurrent aspiration pneumonianow stable for home. She is a known chronic aspirator, and family have decided the quality of life is better than modifying her diet. Finish course of antibiotics. Resident Activity Tracking Resident Involvement: Resident Care Provided Care Provided: Adult Hospital Medicine
--- NOTE | 2018-04-21 13:47 | XRay Report ---
XR KUB CLINICAL HISTORY: abdo distention, pain pain COMPARISON STUDY: 05/12/2017 FINDINGS: The soft tissues, psoas shadows, renal outlines and intestinal gas pattern appear normal. T here is no evidence for bowel obstruction. No abnormal abdominal calcifications are seen. Bibasilar a telectasis IMPRESSION: No acute process of the abdomen. Bibasilar pulmonary atelectasis. The above report was generated using voice recognition software. It may contain grammatical, syntax or spelling errors. Electronically signed by: Benjamin Cheung M.D. 04/21/2018 1:46 PM
== END 2018-04-21 16:03 | disposition home or self-care (01) | DRG 871 ==
LOC: ED 03:06 → SUATTDRO 05:38 → 1E 05:38 → 2S 14:55
DX: E03.9 Hypothyroidism, unspecified; Z96.41 Presence of insulin pump (external) (internal); F32.9 Major depressive disorder, single episode, unspecified; Z88.1 Allergy status to other antibiotic agents; G47.33 Obstructive sleep apnea (adult) (pediatric); J44.9 Chronic obstructive pulmonary disease, unspecified; J98.11 Atelectasis; Z99.81 Dependence on supplemental oxygen; Z66 Do not resuscitate; R65.20 Severe sepsis without septic shock; J96.21 Acute and chronic respiratory failure with hypoxia; E11.9 Type 2 diabetes mellitus without complications; Z93.0 Tracheostomy status; E78.5 Hyperlipidemia, unspecified; Q90.9 Down syndrome, unspecified; I27.20 Pulmonary hypertension, unspecified; I50.810 Right heart failure, unspecified; A41.9 Sepsis, unspecified organism; Z87.74 Personal history of (corrected) congenital malformations of heart and circulatory system; E10.9 Type 1 diabetes mellitus without complications; R00.1 Bradycardia, unspecified; J69.0 Pneumonitis due to inhalation of food and vomit; Z79.4 Long term (current) use of insulin

== ENCOUNTER 2018-04-23 05:04 | Inpatient (IN) ==
[2018-04-23] MEDS ORDERED: ALBUT/IPRATROP 3MG/0.5MG NEB 3 ML VIAL NEB STA (05:13)
--- NOTE | 2018-04-23 05:15 | Emergency Department Note ---
ED Provider Note Name: Valorie Early Age: 52 F Arrives Via: EMS Informant: EMS, Home Health Nurse CC: Cough, Fever HPI: 52 female arrives for evaluation of cough and fever. Patient with history of recurrent aspiration pneumonia, diabetes, tracheostomy, sepsis, down syndrome amongst others who was just discharged from hospital a few days ago for pneumonia/sepsis. She was doing well for 36 hours post discharge on Augmentin. This evening rapidly worsening cough, shortness of breath, fevers and looking ill. Given Tylenol, Nebulizer and EMS called as O2 sats to 82%. En route given NC O2 with improvement. She denies symptoms. Per nursing no falls, syncope, vomiting, leg swelling, pain nor other symptoms. ROS: See above HPI for pertinent positives & negatives. A total of 10 systems reviewed and were otherwise negative. Past Medical History: Pneumonia, sepsis, down syndrome, type 1 dm, seizures, hld, depression, yaniv, mrsa, hypothyroid, gerd Past Surgical History: Tracheostomy, Port placement Family History: Non-contributory Social History: Severely disabled living in skilled nursing [facility]. no etoh, drugs, tobacco Home Medications: Extensive, see list below Allergies Cephalosporins, Sertraline Physical: Vitals: 102/55, P 92, R 18, T 37.8, O2 91% on NRB Exam: GENERAL: Patient is chronically unwell appearing and in moderate distress. EYES: No scleral icterus, unremarkable pupils. ENT: Mucous membranes dry, no nasal congestion. NECK: Midline tracheostomyNo masses appreciated, no meningismus, trachea is midline. RESPIRATORY: Wet junky cough with minimal breath sounds RLL, mild RUQ/Left wheezing . CARDIOVASCULAR: Tachycardia. No murmurs, rubs, gallops appreciated. GASTROINTESTINAL: Abdomen soft, non-tender, no peritonitis. Bowel sounds positive. No masses appreciated. BACK: No midline tenderness, no CVA tenderness EXTREMITIES: Normal motion all extremities, no cyanosis, no edema. NEUROLOGIC: Awake, Interactive, no acute motor or sensory deficits, no focal weakness, cranial nerves grossly intact. SKIN: No rash, no jaundice, no diaphoresis. ED Course: Prior Medical Record, Triage/Nursing Notes, Medications, Allergies reviewed by Me Vital Signs: reviewed and remarkable for Hypoxia, febrile, tachycardia, hypotensive Labs: Reviewed and remarkable for Elevated WBC Interventions: Saline Lock, NSS bolu 1.5 L IV, Vanco IV, Zosyn 4.5 mg IV, Duoneb Imaging: X ray results are stated below per my interpretation: Chest: 1 view: Worsening opacification of RLL infiltrate, small right pleural effusion, no pneumothorax. Compared to CXR 04/15/18. EKG: Per My Interpretation: NSR 87 bpm with qtc 471, large P waves, no ectopy no ischemia. Compared to EKG 04/15/18 similar with increased rate Consults: Dr Barrientos of [facility] Hospitalist who admitted her for further management Reassessments/Times: Multiple throughout stay Blood pressure: Mild hypotension. No Referral necessary Disposition: Admitted to Hospitalist Differentials: Sepsis, Pneumonia, Influenza, ACS, CHF, electrolyte disturbance , dehydration amongst other pathologies. Medical Decision Makin yr old female with recurrent aspiration pneumonia who has a trach and was discharged just 2 days ago following pneumonia on Augmentin. She is hypoxic, tachycardic, febrile, and hypotensive here on arrival. IV obtained, 30ml/KG IV fluids ordered and empiric zosyn/vanc given. She has worsening opacification RLL on CXR consistent with the worsening lung exam from last week when I saw her in ED. She is mildly improved with neb and NRB over trach though still has sats in low 90s. She herself is in no distress but looks unwell and dehydrated. Labs reveal elevated WBC, moderate Lactate elevation, trop non- zero. She is in early septic shock thus agressive management as above. Monitored closely throughout stay and hospitalist involved early in her care. She will be going to ICU for further management given her tenuous situation. Impression: Septic Shock Hypoxia Pneumonia Leukocytosis Critical Care Time: I have personally spent greater than 45 minutes of critical care time in the direct management of this patient. Septic shock with hypoxia secondary to pneumonia. This was a life/limb threatening event. This includes time spent evaluating patient, direct bedside care, chart review, placing orders, interpretation of diagnostic studies, discussion with consultants, patient, and family members, as well as other required patient management activities. This 45 minutes is in excess of all separately billable procedures. Benitez May MD Impression & Plan Septic shock, Hypoxia, Pneumonia, Leukocytosis Past Med/Surg History Social History Current Living Situation: Personal Care Facility Current Living Situation Comment: correction Feels Safe at Home: Yes Smoking Status: Never smoker Second Hand Exposure: No Hx Alcohol Use: No Hx Substance Use: No Beliefs That Will Affect Care: None Preferred Language: Welsh Results & Data Vital Signs Vital Signs - 24 hr 04/23/18 05:17 Temperature 37.8 C H Temperature Source Oral Sepsis Recent Fever Within 48 Hours Yes Sepsis Action Taken by Nursing No Action Required Pulse Rate 92 H Respiratory Rate 18 Blood Pressure 102/55 L Blood Pressure Mean 70 Pulse Oximetry 91 Oxygen Delivery Method Non-rebreather Trach Collar Oxygen Flow Rate 4 Laboratory Data Result diagrams: 04/23/18 04:55 04/23/18 04:55 Lab Results 04/23/18 04/23/18 04/23/18 Range/Units 04:55 04:55 04:55 WBC 22.69 H (4.8-10.8) K/uL RBC 3.77 L (4.2-5.4) M/uL Hgb 12.6 (12.0-16.0) g/dL Hct 38.6 (37-47) % MCV 102.4 H (80-100) fL MCH 33.4 (25-34) pg MCHC 32.6 (32-36) g/dL RDW Std Deviation 53.1 H (36.4-46.3) fL RDW Coeff of Jackie 14.4 (11.5-14.5) % Plt Count 241 (130-400) K/uL MPV 10.5 H (7.4-10.4) fL Immature Gran % (Auto) 0.7 % Neut % (Auto) 89.9 % Lymph % (Auto) 5.6 % Schley % (Auto) 3.7 % Eos % (Auto) 0.0 % Baso % (Auto) 0.1 % Immature Gran # (Auto) 0.16 H (0.00-0.02) K/uL Neut # (Auto) 20.41 H (1.4-6.5) K/uL Lymph # (Auto) 1.26 (1.2-3.4) K/uL Schley # (Auto) 0.83 H (0.11-0.59) K/uL Eos # (Auto) 0.01 (0-0.5) K/uL Baso # (Auto) 0.02 (0-0.2) K/uL RBC Morphology Unremarkable VBG pH (7.36-7.41) VBG pCO2 (38-50) mmHg VBG pO2 mmHg VBG HCO3 mmol/L VBG O2 Saturation % VBG Base Excess mEq/L Barometric Pressure mm/Hg Sodium 137 (136-145) mmol/L Potassium 3.9 (3.5-5.1) mmol/L Chloride 99 (98-107) mmol/L Carbon Dioxide 33 H (21-32) mmol/L Anion Gap 5.0 (3-11) BUN 15 (7-18) mg/dl Creatinine 1.03 (0.6-1.2) mg/dl Est Cr Clr Drug Dosing 49.3 ml/min Est GFR ( Amer) 71.9 Est GFR (Non-Af Amer) 62.0 BUN/Creatinine Ratio 14.6 (10-20) Glucose 141 H (70-99) mg/dl Lactate (0.4-2.0) mmol/L Calcium 8.6 (8.5-10.1) mg/dl Troponin I 0.031 (0-0.045) ng/ml Procalcitonin 0.31 (0-0.5) ng/ml Influenza Type A Ag (Neg) Influenza Type A (PCR) Influenza Type B Ag (Neg) Influenza Type B (PCR) 04/23/18 04/23/18 04/23/18 Range/Units 05:30 05:30 05:33 WBC (4.8-10.8) K/uL RBC (4.2-5.4) M/uL Hgb (12.0-16.0) g/dL Hct (37-47) % MCV (80-100) fL MCH (25-34) pg MCHC (32-36) g/dL RDW Std Deviation (36.4-46.3) fL RDW Coeff of Jackie (11.5-14.5) % Plt Count (130-400) K/uL MPV (7.4-10.4) fL Immature Gran % (Auto) % Neut % (Auto) % Lymph % (Auto) % Schley % (Auto) % Eos % (Auto) % Baso % (Auto) % Immature Gran # (Auto) (0.00-0.02) K/uL Neut # (Auto) (1.4-6.5) K/uL Lymph # (Auto) (1.2-3.4) K/uL Schley # (Auto) (0.11-0.59) K/uL Eos # (Auto) (0-0.5) K/uL Baso # (Auto) (0-0.2) K/uL RBC Morphology VBG pH 7.47 H (7.36-7.41) VBG pCO2 45 (38-50) mmHg VBG pO2 43 mmHg VBG HCO3 32 mmol/L VBG O2 Saturation 78.1 % VBG Base Excess 7.4 mEq/L Barometric Pressure 734.3 mm/Hg Sodium (136-145) mmol/L Potassium (3.5-5.1) mmol/L Chloride (98-107) mmol/L Carbon Dioxide (21-32) mmol/L Anion Gap (3-11) BUN (7-18) mg/dl Creatinine (0.6-1.2) mg/dl Est Cr Clr Drug Dosing ml/min Est GFR ( Amer) Est GFR (Non-Af Amer) BUN/Creatinine Ratio (10-20) Glucose (70-99) mg/dl Lactate 2.0 (0.4-2.0) mmol/L Calcium (8.5-10.1) mg/dl Troponin I (0-0.045) ng/ml Procalcitonin (0-0.5) ng/ml Influenza Type A Ag Neg for Influ A (Neg) Influenza Type A (PCR) Cancelled Influenza Type B Ag Neg for Influ B (Neg) Influenza Type B (PCR) Cancelled Administered Medications Vancomycin HCl 1,250 mg/ (Sodium Chloride) 525 mls @ 200 mls/hr IV NOW ONE Stop: 04/23/18 08:04 Last Admin: 04/23/18 06:18 Dose: 200 mls/hr Sodium Chloride (Nss 1000ml) 1,000 mls @ 999 mls/hr IV .Q1H1M ONE Stop: 04/23/18 06:40 Last Admin: 04/23/18 05:46 Dose: 999 mls/hr Discontinued Medications Albuterol (Duoneb) 3 ml NEB NOW STA Stop: 04/23/18 05:14 Last Admin: 04/23/18 05:41 Dose: 3 ml Piperacillin Sod/Tazobactam Sod (Zosyn) 4.5 gm in 120 mls @ 240 mls/hr IV NOW ONE Stop: 04/23/18 05:56 Last Infusion: 04/23/18 06:17 Dose: 0 mls/hr Admin: 04/23/18 05:43 Dose: 240 mls/hr Discharge Plan Visit Data Chief Complaint: Respiratory Problems ED Provider: Benitez May Discharge Problem: Septic shock, Hypoxia, Pneumonia, Leukocytosis Forms Stand Alone Forms: [facility] Prescriptions Prescriptions: No Action levothyroxine 150 mcg Tablet 150 mcg PO DAILY RF: 0 fluoride (sodium) [Phos-Flur] 0.02 % (0.044 % sod. fluoride) Solution 15 ml DENTAL HS RF: 0 fluticasone-vilanterol [Breo Ellipta] 100-25 mcg/dose Blister With Device 1 inh INHALATION DAILY RF: 0 insulin glargine [Basaglar KwikPen U-100 Insulin] 100 unit/mL (3 mL) Insulin Pen 25 - 30 unit SUBCUT DAILY RF: 0 furosemide [Lasix] 20 mg Tablet 20 mg PO DAILY PRN (Reason: Weight Gain) RF: 0 fluconazole 150 mg Tablet 150 mg PO DIRECTED RF: 0 amoxicillin-pot clavulanate 875-125 mg Tablet 1 tab PO BIDM 7 Days Qty: 14 RF: 0 albuterol sulfate 90 mcg/actuation Hfa Aerosol Inhaler 1 neb INHALATION TID RF: 0 atorvastatin 10 mg Tablet 10 mg PO HS RF: 0 citalopram 40 mg Tablet 40 mg PO QAM RF: 0 montelukast 10 mg Tablet 10 mg PO PM RF: 0 calcium carbonate [Oyster Shell Calcium 500] 500 mg calcium (1,250 mg) Tablet 500 mg PO TID RF: 0 starch (thickening) [Thick-It] Powder 1 packet PO CONTINOUS RF: 0 clotrimazole 1 % Cream 1 applic TOPICAL TID PRN (Reason: Rash) RF: 0 glucagon (human recombinant) [Glucagon Emergency Kit (human)] 1 mg Recon Soln 1 mg IM DIRECTED PRN (Reason: Hypoglycemia) RF: 0 promethazine 12.5 mg Tablet 12.5 mg PO Q8H PRN (Reason: Nausea) RF: 0 acetylcysteine 200 mg/mL (20 %) Solution 4 ml INHALATION BID RF: 0 fexofenadine [Danielle Allergy] 180 mg Tablet 180 mg PO HS RF: 0 acetaminophen [Mapap (acetaminophen)] 325 mg Tablet 650 mg PO Q4H PRN (Reason: fever or pain) Qty: 30 RF: 0 ergocalciferol (vitamin D2) [Vitamin D2] 50,000 unit Capsule 50,000 unit PO WK RF: 0 albuterol sulfate 2.5 mg /3 mL (0.083 %) Solution For Nebulization 1 vial INHALATION TID RF: 0 prednisone 10 mg Tablet 10 mg PO DAILY RF: 0 insulin aspart U-100 [Novolog U-100 Insulin aspart] 100 unit/mL solution 1 dose Continuous Subcutaneous Infusion UD RF: 0 omeprazole 20 mg Capsule,Delayed Release(Dr/Ec) 20 mg PO QAM RF: 0 multivitamin,[id number]-biwa-xviksagf [Therems-M] 27-0.4 mg Tablet 1 tab PO QAM RF: 0
[2018-04-23 05:24] LABS: Hematocrit (blood only) 38.6 % (37-47); Hemoglobin 12.6 g/dL (12.0-16.0); Mean Corpuscular Hgb Conc 32.6 g/dL (32-36); Mean Corpuscular Volume 102.4 fL (80-100); Mean Platelet Volume 10.5 fL (7.4-10.4); Platelet Count 241 K/uL (130-400); RDW Coefficient of Variation 14.4 % (11.5-14.5); RDW Standard Deviation 53.1 fL (36.4-46.3); Red Blood Count 3.77 M/uL (4.2-5.4); White Blood Count 22.69 K/uL (4.8-10.8)
[2018-04-23] MEDS ORDERED: VANCOMYCIN CONSULT ACTIVE PRN ×2 (05:27→07:39)
[2018-04-23] MEDS ORDERED: PIPERACILLIN/TAZOBACTAM 4.5 GM/120 ML BAG IV ONE ×2 (05:27→07:39)
[2018-04-23] MEDS ORDERED: PIPERACILL/TAZOBAC CONSULT ACTIVE PRN ×2 (05:27→07:39)
[2018-04-23] MEDS ORDERED: VANCOMYCIN HCL 1,250 MG in SODIUM CHLORIDE 0.9% 500 ML IV ONE (05:27)
[2018-04-23] MEDS ORDERED: SODIUM CHLORIDE 0.9% 1000ML 500 ML IV ONE (05:40)
[2018-04-23] MEDS ORDERED: SODIUM CHLORIDE 0.9% 1000ML 1,000 ML IV ONE (05:40)
[2018-04-23 05:43] LABS: BUN Creatinine Ratio 14.6 (10-20); Calcium 8.6 mg/dl (8.5-10.1); Creatinine Clr Calc Pharmacy 49.3 ml/min; Est GFR (African American) 71.9; Potassium 3.9 mmol/L (3.5-5.1)
[2018-04-23 05:44] LABS: Base Excess VBG 7.4 mEq/L; Oxygen Saturation VBG 78.1 %; pH VBG 7.47 (7.36-7.41)
[2018-04-23 05:47] LABS: Troponin I 0.031 ng/ml (0-0.045)
[2018-04-23 05:53] LABS: Basophils # (auto) 0.02 K/uL (0-0.2); Basophils % (auto) 0.1 %; Eosinophils # (auto) 0.01 K/uL (0-0.5); Immature Granulocytes # (auto) 0.16 K/uL (0.00-0.02); Immature Granulocytes % (auto) 0.7 %; Lymphocytes # (auto) 1.26 K/uL (1.2-3.4); Lymphocytes % (auto) 5.6 %; Monocytes # (auto) 0.83 K/uL (0.11-0.59); Monocytes % (auto) 3.7 %; Neutrophils # (auto) 20.41 K/uL (1.4-6.5); Neutrophils % (auto) 89.9 %; RBC Morphology Unremarkable
--- NOTE | 2018-04-23 06:31 | XRay Report ---
XR chest 1V portable HISTORY: 52 years-old Female SHOB acute shortness of breath COMPARISON: Chest radiographs 04/18/2018 TECHNIQUE: Portable AP view of the chest FINDINGS: Tracheostomy cannula overlies the midline just below the level the clavicular heads. Right pectoral I nzorh-s-Kgbb catheter appears unchanged. Cardiac silhouette is enlarged. No pneumothorax or large ple ural effusion. Persistent bibasilar opacities appear unchanged. Mild chronic background interstitial coarsening with hyperinflation and suggested emphysema. Degenerative changes of the shoulders and spi ne. IMPRESSION: 1. Cardiomegaly without overt pulmonary edema. 2. Unchanged bibasilar opacities. 3. Suggested emphysema. The above report was generated using voice recognition software. It may contain grammatical, syntax o r spelling errors. Electronically signed by: Trung Betts M.D. 04/23/2018 6:29 AM
--- NOTE | 2018-04-23 06:50 | History & Physical Report ---
Date of Service April 23, 2018 Assessment & Plan (1) Septic shock: Patient is admitted to the intensive care unit with septic shock/acute on chronic respiratory failure with hypoxemia and hypercapnia bilateral pneumonia right greater than left -- NPO At last admission patient grew out ESBL E. coli through trach. Vancomycin IV per pharmacokinetic monitoring. Double cover ESBL E. coli, since has returned so quickly back into the hospital with white blood cell count increasing from 7.14 on 04/21, to 22.69 today. Placed on Zosyn 4.5 g IV every 8 hours, and gentamicin IV synergistic dosing, discussed with pharmacy. Aggressive trach care begun by respiratory therapy while in the ED, and to continue in the ICU. Consult kiln tester, patient will likely need to have bronchoscopy done. Remainder of orders and notations per ICU staff. Present on Admission?: Yes (2) Acute on chronic respiratory failure with hypoxemia: See above Present on Admission?: Yes (3) Pneumonia: See above Present on Admission?: Yes (4) Admitted to intensive care unit: See above Present on Admission?: Yes History of Present Illness Chief Complaint: The patient presents to the emergency department with cough, fever, worsening shortness of breath after being discharged from the hospital 2 days ago. Primary Care Provider: Vladimir Lucio MD The patient is a 52-year-old trached female, recently admitted to [facility] from April 15 - April 21 for acute respiratory failure with sputum growing ESBL E. coli. She was discharged on Augmentin, and return to the emergency department tonight with worsening shortness of breath, trach almost plugged, worsening chest x-ray, and signs of septic shock. Allergies Allergy/AdvReac Type Severity Reaction Status Date / Time cefaclor Allergy Intermediate HIVES Verified 04/23/18 07:00 Cephalosporins Allergy Intermediate rash per Verified 04/23/18 07:00 mother sertraline Allergy Unknown INTOLERANCE Verified 04/23/18 07:00 Home Medications Home Medications Medication Instructions Recorded Confirmed Type albuterol sulfate 1 neb INHALATION TID 02/13/18 04/15/18 History calcium carbonate [Oyster Shell 500 mg PO TID 02/13/18 04/23/18 History Calcium 500] citalopram 40 mg PO QAM 02/13/18 04/23/18 History clotrimazole 1 applic TOPICAL TID PRN 02/13/18 04/15/18 History glucagon (human recombinant) 1 mg IM DIRECTED PRN 02/13/18 04/15/18 History [Glucagon Emergency Kit (human)] montelukast 10 mg PO PM 02/13/18 04/23/18 History promethazine 12.5 mg PO Q8H PRN 02/13/18 04/15/18 History starch (thickening) [Thick-It] 1 packet PO CONTINOUS 02/13/18 04/15/18 History acetylcysteine 4 ml INHALATION BID 03/07/18 04/23/18 History fluconazole 150 mg PO DIRECTED 04/15/18 04/15/18 History fluoride (sodium) [Phos-Flur] 15 ml DENTAL HS 04/15/18 04/23/18 History fluticasone-vilanterol [Breo 1 inh INHALATION DAILY 04/15/18 04/23/18 History Ellipta] furosemide [Lasix] 20 mg PO DAILY PRN 04/15/18 04/15/18 History insulin glargine [Basaglar KwikPen 25 - 30 unit SUBCUT DAILY 04/15/18 04/15/18 History U-100 Insulin] levothyroxine 150 mcg PO DAILY 04/15/18 04/23/18 History amoxicillin-pot clavulanate 1 tab PO BIDM 7 Days #14 tab 04/21/18 04/23/18 Rx acetaminophen [Mapap 650 mg PO Q4H PRN 04/23/18 04/23/18 History (acetaminophen)] albuterol sulfate 1 vial INHALATION TID 04/23/18 04/23/18 History albuterol sulfate 2.5 mg INHALATION Q4 PRN 04/23/18 04/23/18 History amoxicillin-pot clavulanate See Label Instructions .ROUTE 04/23/18 04/23/18 History .COMPLEX atorvastatin 10 mg PO HS 04/23/18 04/23/18 History ergocalciferol (vitamin D2) 50,000 unit PO WK 04/23/18 04/23/18 History [Vitamin D2] fexofenadine [Allergy Relief 180 mg PO HS 04/23/18 04/23/18 History (fexofenadine)] insulin aspart U-100 [Novolog 1 dose CONTINUOUS SUBCUTANEOUS 04/23/18 04/23/18 History U-100 Insulin aspart] INFUSION UD multivitamin,lp-yjfg-whjxmrds 1 tab PO QAM 04/23/18 04/23/18 History [Therems-M] omeprazole 20 mg PO QAM 04/23/18 04/23/18 History prednisone 10 mg PO DAILY 04/23/18 04/23/18 History Past Med/Surg History Social History Current Living Situation: Personal Care Facility Current Living Situation Comment: jail Feels Safe at Home: Yes Smoking Status: Never smoker Second Hand Exposure: No Hx Alcohol Use: No Hx Substance Use: No Beliefs That Will Affect Care: None Preferred Language: Portuguese Review of Systems Review of systems is limited due to patient's current physical condition. Physical Exam 2 Vital Signs (Past 24 Hours): Last Vital Signs Temp 37.8 C H 04/23/18 05:17 Pulse 79 04/23/18 06:38 Resp 18 04/23/18 06:38 BP 96/46 L 04/23/18 06:38 Pulse Ox 92 04/23/18 06:38 Physical Exam: The patient is awake, mildly lethargic, lying in bed and in moderate respiratory distress. HEENT--PERRL, EOMI, mucous membranes and oropharynx dry. Neck--trach with thick secretions. No JVD. No bruits. Heart--normal S1 and S2. No murmurs, rubs or gallops. Lungs--coarse breath sounds bilaterally, crackles at right base greater than left. Abdomen--normal bowel sounds and soft. Nontender. Nondistended. Extremities--no cyanosis or clubbing. No edema. There are good distal pulses b/ l. Dermatologic--normal skin turgor, normal color, no abnormal lymph nodes, no rash. Neurologic--cranial nerves II through XII grossly intact. Rheumatologic--limited exam Psychiatric--pleasant Results & Data Laboratory Results Laboratory Results WBC 22.69 K/uL (4.8-10.8) H 04/23/18 04:55 RBC 3.77 M/uL (4.2-5.4) L 04/23/18 04:55 Hgb 12.6 g/dL (12.0-16.0) 04/23/18 04:55 Hct 38.6 % (37-47) 04/23/18 04:55 MCV 102.4 fL (80-100) H 04/23/18 04:55 MCH 33.4 pg (25-34) 04/23/18 04:55 MCHC 32.6 g/dL (32-36) 04/23/18 04:55 RDW Std Deviation 53.1 fL (36.4-46.3) H 04/23/18 04:55 RDW Coeff of Jackie 14.4 % (11.5-14.5) 04/23/18 04:55 Plt Count 241 K/uL (130-400) 04/23/18 04:55 MPV 10.5 fL (7.4-10.4) H 04/23/18 04:55 Immature Gran % (Auto) 0.7 % 04/23/18 04:55 Neut % (Auto) 89.9 % 04/23/18 04:55 Lymph % (Auto) 5.6 % 04/23/18 04:55 [place] % (Auto) 3.7 % 04/23/18 04:55 Eos % (Auto) 0.0 % 04/23/18 04:55 Baso % (Auto) 0.1 % 04/23/18 04:55 Immature Gran # (Auto) 0.16 K/uL (0.00-0.02) H 04/23/18 04:55 Neut # (Auto) 20.41 K/uL (1.4-6.5) H 04/23/18 04:55 Lymph # (Auto) 1.26 K/uL (1.2-3.4) 04/23/18 04:55 [place] # (Auto) 0.83 K/uL (0.11-0.59) H 04/23/18 04:55 Eos # (Auto) 0.01 K/uL (0-0.5) 04/23/18 04:55 Baso # (Auto) 0.02 K/uL (0-0.2) 04/23/18 04:55 RBC Morphology Unremarkable 04/23/18 04:55 VBG pH 7.47 (7.36-7.41) H 04/23/18 05:30 VBG pCO2 45 mmHg (38-50) 04/23/18 05:30 VBG pO2 43 mmHg 04/23/18 05:30 VBG HCO3 32 mmol/L 04/23/18 05:30 VBG O2 Saturation 78.1 % 04/23/18 05:30 VBG Base Excess 7.4 mEq/L 04/23/18 05:30 Barometric Pressure 734.3 mm/Hg 04/23/18 05:30 Sodium 137 mmol/L (136-145) 04/23/18 04:55 Potassium 3.9 mmol/L (3.5-5.1) 04/23/18 04:55 Chloride 99 mmol/L (98-107) 04/23/18 04:55 Carbon Dioxide 33 mmol/L (21-32) H 04/23/18 04:55 Anion Gap 5.0 (3-11) 04/23/18 04:55 BUN 15 mg/dl (7-18) 04/23/18 04:55 Creatinine 1.03 mg/dl (0.6-1.2) 04/23/18 04:55 Est Cr Clr Drug Dosing 49.3 ml/min 04/23/18 04:55 Est GFR ( Amer) 71.9 04/23/18 04:55 Est GFR (Non-Af Amer) 62.0 04/23/18 04:55 BUN/Creatinine Ratio 14.6 (10-20) 04/23/18 04:55 Glucose 141 mg/dl (70-99) H 04/23/18 04:55 Lactate 2.0 mmol/L (0.4-2.0) 04/23/18 05:30 Calcium 8.6 mg/dl (8.5-10.1) 04/23/18 04:55 Troponin I 0.031 ng/ml (0-0.045) 04/23/18 04:55 Procalcitonin 0.31 ng/ml (0-0.5) 04/23/18 04:55 Influenza Type A Ag Neg for Influ A (Neg) 04/23/18 05:33 Influenza Type A (PCR) Cancelled 04/23/18 05:33 Influenza Type B Ag Neg for Influ B (Neg) 04/23/18 05:33 Influenza Type B (PCR) Cancelled 04/23/18 05:33 . Diagnostic Findings [facility], [place] [phone] XRay Report Patient: YVONNE WASHINGTON AAdmit Date: 04/23/18 MR#: [id number]: [id number] Acct ID:[id number]: Date: 1965City Zip: [place] [address] Age: 52Location: ED Sex: F Room/Bed: Att Phy: Diagnosis: SOB Jennifer Phy: Vladimir Lucio, MDService Date: 04/23/18 Fam Phy: Interpreting Phy: Bulmaro Betts Admit Phy: Ordering Phy: Benitez May M.D. cc: ~ XR chest 1V portable HISTORY: 52 years-old Female SHOB acute shortness of breath COMPARISON: Chest radiographs 04/18/2018 TECHNIQUE: Portable AP view of the chest FINDINGS: Tracheostomy cannula overlies the midline just below the level the clavicular heads. Right pectoral Iqeohy-q-Weta catheter appears unchanged. Cardiac silhouette is enlarged. No pneumothorax or large pleural effusion. Persistent bibasilar opacities appear unchanged. Mild chronic background interstitial coarsening with hyperinflation and suggested emphysema. Degenerative changes of the shoulders and spine. IMPRESSION: 1. Cardiomegaly without overt pulmonary edema. 2. Unchanged bibasilar opacities. 3. Suggested emphysema. The above report was generated using voice recognition software. It may contain grammatical, syntax or spelling errors. Electronically signed by: Trung Betts M.D. 04/23/2018 6:29 AM Dictated: 04/23/18626 Transcribed: 04/23/18626 Code Status & VTE Plan Code Status Full code VTE Prophylaxis Plan VTE Prophylaxis will be ordered: Yes Critical Care Time Total critical care time was 50 minutes Critical Care Time: Yes Total Critical Care Time: 50 _ (1) Pneumonia Aspiration pneumonia type: unspecified Laterality: right Lung location: lower lobe of lung Pneumonia type: aspiration pneumonia Qualified Code(s): J69.0 - Pneumonitis due to inhalation of food and vomit
[2018-04-23] MEDS ORDERED: GENTAMICIN CONSULT ACTIVE PRN (06:56)
[2018-04-23] MEDS ORDERED: GENTAMICIN SULFATE 250 MG in DEXTROSE 5% 100 ML IV SCH (07:00)
[2018-04-23] MEDS ORDERED: ONDANSETRON INJ 2 MG/ML 2 ML VIAL IV PRN (07:39)
[2018-04-23] MEDS ORDERED: VANCOMYCIN HCL 1,000 MG in SODIUM CHLORIDE 0.9% 250 ML IV SCH ×2 (07:39→18:00)
[2018-04-23] MEDS ORDERED: ICU PROTOCOL FOR HYPERGLYCEMIA PRN (07:39)
[2018-04-23] MEDS ORDERED: ACETAMINOPHEN 1000 MG/100 ML IV IV PRN (07:39)
[2018-04-23] MEDS ORDERED: ALBUT/IPRATROP 3MG/0.5MG NEB 3 ML VIAL INH PRN (08:08)
[2018-04-23] MEDS ORDERED: ERTAPENEM SODIUM 1,000 MG in SODIUM CHLORIDE 0.9% 50 ML IV SCH (09:00)
[2018-04-23] MEDS: NSS + 20MEQ KCL 20 MEQ/1,000 ML BAG IV SCH ×2 (09:05→21:16)
--- NOTE | 2018-04-23 09:36 | Critical Care Consultation ---
Date of Consultation April 23, 2018 Assessment & Plan (1) Acute on chronic respiratory failure with hypoxemia: 52-year-old female was admitted to the ICU on 23 April 2018 for shortness of breath. 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 On citalopram. Awake, alert, no known immediate issues. Pulm: Acute on chronic hypoxic respiratory failure, EMS SpO2 82%. See ID for PNA sepsis below. Admit pCXR notes unchanged bibasilar opacities. Suspect ongoing aspiration PNA. Given albuterol neb. Presently comfortable on 7L trach collar with SpO2 in low 90s. PMH tracheal stenosis s/p permanent trach, CAMILLA on BiPAP, pulmonary HTN, great vessels surgery. At home is on baseline 2L in day, 4 L with walking or overnight. CVS: Initially bradycardic, resolved. EKG is NSR 87, QTc 471. TnI negative. Noted bradycardia on last admit, seen by cardiology, recommended outpatient eval for pacemaker. PMH HLD, on atorvastatin. ID: Discharged on 04Feb for PNA and sepsis, home on Augmentin. 30Jan sputum cx positive for ESBL E coli. On re-admit, borderline febrile, WBC 22, negative procalcitonin, lactate 2.0, influenza negative. BCx sent. Given Zosyn, vancomycin, and gentamicin in ED. - Will continue on ertapenem, Zosyn, and vancomycin. - Sending a repeat trach culture as well as checking for MRSA. Endo: 04Feb discharged back on home dose of prednisone 10 mg. PMH DM1 (last HbA1c in system was 9.3) and hypothyroidism. On levothyroxine. At home is on insulin pump. - Caregiver wishes to continue to manage her insulin prior to transfer. Will hold off on insulin drip for now. Renal/Lytes: Admit Cr 1.03. Electrolytes okay. Monitoring. GI: PMH dysphagia and GERD. Continue chronic PPI. Offered feeding tube, family declined. Prior speech therapy consult recommended soft bite-sized diet with nectar thick liquids. Apparently this may not of been followed in the past 48 hours. Some discussions as well that her home caregivers allow her to eat what she would like. Heme: Admit Hb 12.6 (higher than recent). PMH anemia of chronic disease. DVT prophy: SCDs, Lovenox. Skin: Question of a fungal rash in the right lateral malleolus. Will start on terbinafine topical BID. Lines: PIV. Code status: Full code. PT/OT: Deferred. Disposition: Admitted to ICU. Normally lives in a senior care. - Discussion of possible transfer to [place] for further care per family request. (2) Down syndrome: (3) Seizure disorder: (4) Depression: (5) Aspiration pneumonia: (6) Tracheal anomaly: (7) CAMILLA (obstructive sleep apnea): (8) Pulmonary hypertension: (9) Bradycardia: (10) HLD (hyperlipidemia): (11) E. coli infection: (12) Type 1 diabetes: (13) Hypothyroidism: (14) GERD (gastroesophageal reflux disease): (15) Dysphagia: (16) Anemia of chronic disease: (17) Tinea corporis: Supervising Physician Co-Signing Physician Notes I have seen and examined this patient with Dr. Trung Lui. The patient overall hemodynamically stable and is maintaining her oxygenation and there are no other issues going on which allow us to keep the patient in the ICU. I agree with his clinical assessment as well as plan of care. We are going to transfer this patient to the telemetry and will continue with all the current plan of care. Dr. Giuliana Cormier History of Present Illness Attending Physician: Kane Mcdermott DO History of Present Illness 52-year-old female presented to the emergency department by EMS for acute shortness of breath, fever, and cough. Of note, she has had recent hospitalizations from 30Nov-02Dec, 21-24Dec, and then Jan-Feb. On most recent hospitalization she was treated for pneumonia and sepsis. In the ICU, patient prefers to rest comfortably with her eyes closed. She will quickly open her eyes to any questions and nod her head yes or no as answers. She says through nodding that she has some chest pain with deep breathing only but otherwise denies any baseline chest pain or shortness of breath. Per her caregiver in the room, she wonders if the patient received the wrong diet over the < 48 hours she has been out of the hospital. When asked how she may have gotten E. coli around her trach, she says she has not noted any recent diarrhea or UTIs. However, the patient does like to rub her fingers on the trach area and is difficult to get her to wash her hands. Allergies Allergy/AdvReac Type Severity Reaction Status Date / Time cefaclor Allergy Intermediate HIVES Verified 04/23/18 07:00 Cephalosporins Allergy Intermediate rash per Verified 04/23/18 07:00 mother sertraline Allergy Unknown INTOLERANCE Verified 04/23/18 07:00 Home Medications Home Medications Medication Instructions Recorded Confirmed Type albuterol sulfate 2 puff INHALATION Q4 PRN 02/13/18 04/23/18 History calcium carbonate [Oyster Shell 500 mg PO TID 02/13/18 04/23/18 History Calcium 500] citalopram 40 mg PO QAM 02/13/18 04/23/18 History clotrimazole 1 applic TOPICAL TID PRN 02/13/18 04/23/18 History glucagon (human recombinant) 1 mg IM DIRECTED PRN 02/13/18 04/23/18 History [Glucagon Emergency Kit (human)] montelukast 10 mg PO PM 02/13/18 04/23/18 History promethazine 12.5 mg PO Q8H PRN 02/13/18 04/23/18 History starch (thickening) [Thick-It] 1 packet PO CONTINOUS 02/13/18 04/23/18 History acetylcysteine 4 ml INHALATION BID 03/07/18 04/23/18 History fluconazole 150 mg PO DIRECTED PRN 04/15/18 04/23/18 History fluoride (sodium) [Phos-Flur] 15 ml DENTAL HS 04/15/18 04/23/18 History fluticasone-vilanterol [Breo 1 inh INHALATION DAILY 04/15/18 04/23/18 History Ellipta] furosemide [Lasix] 20 mg PO DAILY PRN 04/15/18 04/23/18 History insulin glargine [Basaglar KwikPen 25 - 30 unit SUBCUT DAILY 04/15/18 04/23/18 History U-100 Insulin] levothyroxine 150 mcg PO DAILY 04/15/18 04/23/18 History amoxicillin-pot clavulanate 1 tab PO BIDM 7 Days #14 tab 04/21/18 04/23/18 Rx acetaminophen [Mapap 650 mg PO Q4H PRN 04/23/18 04/23/18 History (acetaminophen)] albuterol sulfate 1 vial INHALATION TID 04/23/18 04/23/18 History albuterol sulfate 2.5 mg INHALATION Q4 PRN 04/23/18 04/23/18 History amoxicillin-pot clavulanate See Label Instructions .ROUTE 04/23/18 04/23/18 History .COMPLEX atorvastatin 10 mg PO HS 04/23/18 04/23/18 History ergocalciferol (vitamin D2) 50,000 unit PO WK 04/23/18 04/23/18 History [Vitamin D2] fexofenadine [Allergy Relief 180 mg PO HS 04/23/18 04/23/18 History (fexofenadine)] insulin aspart U-100 [Novolog 1 dose CONTINUOUS SUBCUTANEOUS 04/23/18 04/23/18 History U-100 Insulin aspart] INFUSION UD multivitamin,[id number]-ikph-[id number] 1 tab PO QAM 04/23/18 04/23/18 History [Therems-M] omeprazole 20 mg PO QAM 04/23/18 04/23/18 History prednisone 10 mg PO DAILY 04/23/18 04/23/18 History Patient History Social History Current Living Situation: Personal Care Facility Current Living Situation Comment: senior care Other Information That Helps Us Care for You: No Feels Safe at Home: Yes Safety Concerns: Feels Safe At This Time Smoking Status: Never smoker Do You Dip or Chew Tobacco: No Second Hand Exposure: No Tobacco Cessation Education Requested by Patient: No Hx Alcohol Use: No Hx Substance Use: No Beliefs That Will Affect Care: None Preferred Language: Estonian Communication Ability: Impaired Communication Ability Comment: Pt MR/ down's syndrome Review of Systems Unable to obtain full ROS due to patient's only nodding yes or no to questions while on trach collar. Physical Exam 2 Vital Signs (Past 24 Hours): Last Vital Signs Temp 37.2 C 04/23/18 07:20 Pulse 78 04/23/18 07:20 Resp 18 04/23/18 07:20 BP 95/43 L 04/23/18 07:20 Pulse Ox 96 04/23/18 07:20 Physical Exam: GENERAL: Awake, alert, well-appearing, in no acute distress HENT: Normocephalic, atraumatic. Oropharynx unremarkable. EYES: Normal conjunctiva. Sclera non-icteric. NECK: Supple and full ROM. No nuchal rigidity. Trach collar in place. CARDIAC: +S1S2 RRR, no murmurs. RESPIRATORY: Mildly coarse lungs throughout. No wheezes or rales. Normal respiratory effort. GI: +BS, soft, non-distended. No tenderness to palpation. No rebound or guarding. EXTREMITIES: No pedal edema or calf tenderness. Moving all extremities naturally and easily. NEURO: No gross neuro deficits. Skin: There is a circular mildly erythematous rash over the right lateral malleolus. There is no surrounding erythema, noted edema, drainage, and is non- tender to palpation. Results & Data Laboratory Results 04/23/18 04/23/18 04/23/18 Range/Units 05:33 05:30 05:30 WBC (4.8-10.8) K/uL RBC (4.2-5.4) M/uL Hgb (12.0-16.0) g/dL Hct (37-47) % MCV (80-100) fL MCH (25-34) pg MCHC (32-36) g/dL RDW Std Deviation (36.4-46.3) fL RDW Coeff of Jackie (11.5-14.5) % Plt Count (130-400) K/uL MPV (7.4-10.4) fL Immature Gran % (Auto) % Neut % (Auto) % Lymph % (Auto) % Clare % (Auto) % Eos % (Auto) % Baso % (Auto) % Immature Gran # (Auto) (0.00-0.02) K/uL Neut # (Auto) (1.4-6.5) K/uL Lymph # (Auto) (1.2-3.4) K/uL Clare # (Auto) (0.11-0.59) K/uL Eos # (Auto) (0-0.5) K/uL Baso # (Auto) (0-0.2) K/uL RBC Morphology VBG pH 7.47 H (7.36-7.41) VBG pCO2 45 (38-50) mmHg VBG pO2 43 mmHg VBG HCO3 32 mmol/L VBG O2 Saturation 78.1 % VBG Base Excess 7.4 mEq/L Barometric Pressure 734.3 mm/Hg Sodium (136-145) mmol/L Potassium (3.5-5.1) mmol/L Chloride (98-107) mmol/L Carbon Dioxide (21-32) mmol/L Anion Gap (3-11) BUN (7-18) mg/dl Creatinine (0.6-1.2) mg/dl Est Cr Clr Drug Dosing ml/min Est GFR ( Amer) Est GFR (Non-Af Amer) BUN/Creatinine Ratio (10-20) Glucose (70-99) mg/dl Lactate 2.0 (0.4-2.0) mmol/L Calcium (8.5-10.1) mg/dl Troponin I (0-0.045) ng/ml Procalcitonin (0-0.5) ng/ml Influenza Type A Ag Neg for Influ A (Neg) Influenza Type A (PCR) Cancelled Influenza Type B Ag Neg for Influ B (Neg) Influenza Type B (PCR) Cancelled 04/23/18 04/23/18 04/23/18 Range/Units 04:55 04:55 04:55 WBC 22.69 H (4.8-10.8) K/uL RBC 3.77 L (4.2-5.4) M/uL Hgb 12.6 (12.0-16.0) g/dL Hct 38.6 (37-47) % MCV 102.4 H (80-100) fL MCH 33.4 (25-34) pg MCHC 32.6 (32-36) g/dL RDW Std Deviation 53.1 H (36.4-46.3) fL RDW Coeff of Jackie 14.4 (11.5-14.5) % Plt Count 241 (130-400) K/uL MPV 10.5 H (7.4-10.4) fL Immature Gran % (Auto) 0.7 % Neut % (Auto) 89.9 % Lymph % (Auto) 5.6 % Clare % (Auto) 3.7 % Eos % (Auto) 0.0 % Baso % (Auto) 0.1 % Immature Gran # (Auto) 0.16 H (0.00-0.02) K/uL Neut # (Auto) 20.41 H (1.4-6.5) K/uL Lymph # (Auto) 1.26 (1.2-3.4) K/uL Clare # (Auto) 0.83 H (0.11-0.59) K/uL Eos # (Auto) 0.01 (0-0.5) K/uL Baso # (Auto) 0.02 (0-0.2) K/uL RBC Morphology Unremarkable VBG pH (7.36-7.41) VBG pCO2 (38-50) mmHg VBG pO2 mmHg VBG HCO3 mmol/L VBG O2 Saturation % VBG Base Excess mEq/L Barometric Pressure mm/Hg Sodium 137 (136-145) mmol/L Potassium 3.9 (3.5-5.1) mmol/L Chloride 99 (98-107) mmol/L Carbon Dioxide 33 H (21-32) mmol/L Anion Gap 5.0 (3-11) BUN 15 (7-18) mg/dl Creatinine 1.03 (0.6-1.2) mg/dl Est Cr Clr Drug Dosing 49.3 ml/min Est GFR ( Amer) 71.9 Est GFR (Non-Af Amer) 62.0 BUN/Creatinine Ratio 14.6 (10-20) Glucose 141 H (70-99) mg/dl Lactate (0.4-2.0) mmol/L Calcium 8.6 (8.5-10.1) mg/dl Troponin I 0.031 (0-0.045) ng/ml Procalcitonin 0.31 (0-0.5) ng/ml Influenza Type A Ag (Neg) Influenza Type A (PCR) Influenza Type B Ag (Neg) Influenza Type B (PCR) Medications Administered Current Inpatient Medications Acetaminophen (Ofirmev) 1,000 mg IV Q8H PRN PRN Reason: Pain or Fever Stop: 05/23/18 07:38 Acetylcysteine (Mucomyst 20%) 4 ml INH BIDR LEONOR Stop: 05/23/18 07:59 Albuterol (Duoneb) 3 ml INH Q4R LEONOR Stop: 05/23/18 07:59 Albuterol (Duoneb) 3 ml INH Q2H PRN PRN Reason: SOB/WHEEZING Stop: 05/23/18 08:07 Enoxaparin Sodium (Lovenox) 40 mg SQ Q24H LEONOR Stop: 05/23/18 07:38 Pantoprazole Sodium 40 mg/ (Syringe) 10 mls @ 5 mls/min IV DAILY@1100 LEONOR Stop: 05/23/18 10:59 Potassium Chloride/Sodium Chloride (Normal Saline W/20 Meq Kcl) 20 meq in 1, 000 mls @ 100 mls/hr IV .Q10H LEONOR Stop: 05/23/18 08:29 Last Admin: 04/23/18 09:05 Dose: 100 mls/hr Ertapenem 1,000 mg/ Sodium (Chloride) 60 mls @ 100 mls/hr IV Q24H LEONOR Stop: 04/30/18 08:59 Last Admin: 04/23/18 09:13 Dose: 100 mls/hr Miscellaneous Information (Consult) 1 ea N/A UD PRN PRN Reason: Consult Stop: 05/23/18 06:55 Miscellaneous Information (Consult) 1 ea N/A UD PRN PRN Reason: Consult Stop: 05/23/18 07:38 Miscellaneous Information (Consult) 1 ea N/A UD PRN PRN Reason: Consult Stop: 05/23/18 07:38 Ondansetron HCl (Zofran) 4 mg IV Q6H PRN PRN Reason: NAUSEA/VOMITING Stop: 05/23/18 07:38 Terbinafine HCl (Lamisil At) 1 appln EXT BID LEONOR Stop: 05/23/18 09:29 Resident Activity Tracking Resident Involvement: Resident Care Provided Care Provided: Adult Hospital Medicine
[2018-04-23] MEDS ORDERED: LEVOTHYROXINE SODIUM 150 MCG TABLET PO ONE (10:30)
[2018-04-23] MEDS ORDERED: ENOXAPARIN INJ 40 MG/0.4 ML SYR SQ SCH (10:30)
[2018-04-23] MEDS ORDERED: GLUCOSE 40% GEL 15 GM TUBE PO PRN (10:38)
[2018-04-23] MEDS ORDERED: DEXTROSE 50% 50 ML SYRINGE IV PRN (10:38)
[2018-04-23] MEDS ORDERED: GLUCOSE 10 TABS/TUBE PO PRN (10:38)
[2018-04-23] MEDS ORDERED: GLUCAGON FOR INJ 1 MG VIAL IM PRN (10:38)
[2018-04-23] MEDS ORDERED: CARBOHYDRATES FOR HYPOGLYCEMIA PO PRN (10:38)
[2018-04-23] MEDS ORDERED: NovoLOG INSULIN PUMP SCH (10:45)
[2018-04-23] MEDS ORDERED: PANTOprazole 40 MG in SYRINGE 0 ML IV SCH (11:00)
[2018-04-23] MEDS: ALBUT/IPRATROP 3MG/0.5MG NEB 3 ML VIAL INH SCH ×4 (11:16→20:07)
[2018-04-23] MEDS: ACETYLCYSTEINE 20% INHAL SOLN ***DISPENSED BY RESP. INH SCH ×2 (11:16→20:03)
[2018-04-23] MEDS: TERBINAFINE CR 30 GM TUBE EXT SCH ×2 (11:23→21:16)
[2018-04-23] MEDS ORDERED: INSULIN ASPART 100 UNITS/ML VIAL SC PRN (12:23)
--- NOTE | 2018-04-23 12:58 | Discharge Summary ---
Date of Service April 23, 2018 Admission HPI Per Admitting Provider The patient is a 52-year-old trached female, recently admitted to [facility] from April 15 - April 21 for acute respiratory failure with sputum growing ESBL E. coli. She was discharged on Augmentin, and return to the emergency department tonight with worsening shortness of breath, trach almost plugged, worsening chest x-ray, and signs of septic shock. Principal Diagnosis Aspiration Pneumonia Discharge Exam Constitutional well developed, well nourished and + lethargic Respiratory normal respiratory effort; no respiratory distress and no labored breathing Auscultation: + diminished lung sounds (coarse breath sounds bilaterally) Cardiovascular RRR, no murmur, no edema Gastrointestinal (Abdomen) normal bowel sounds, soft, nontender, no hepatosplenomegaly Discharge Data Allergies Allergy/AdvReac Type Severity Reaction Status Date / Time cefaclor Allergy Intermediate HIVES Verified 04/23/18 07:00 Cephalosporins Allergy Intermediate rash per Verified 04/23/18 07:00 mother sertraline Allergy Unknown INTOLERANCE Verified 04/23/18 07:00 Consultations 04/23/18 06:16 ED Decision to Admit Stat 04/23/18 07:39 Consult Case Management - Discharge Planning Routine Consult Engineering Group Manager Routine Hospital Course (1) Acute on chronic respiratory failure with hypoxemia: Ms. Roca is a 52-year-old female with a complex past medical history including Down syndrome, diabetes mellitus, hyperlipidemia, hypothyroidism, pulmonary hypertension, tracheal stenosis with permanent tracheostomy, recurrent aspiration pneumonia, chronic hypoxic respiratory failure (2L oxygen at rest, 4 L oxygen with activity). She was recently discharged on 04/21/2018 for aspiration pneumonia on Augmentin, however she presented to [facility] again on with fever, shortness of breath and lethargy. Of note, she has multiple prior admissions to the hospital for aspiration pneumonia, the other most recent admissions were on 02/14-02/16 and again on 03/07-03/10. - CXR showed bilateral basilar infiltrates, unchanged from prior discharge - blood cultures negative on prior visit, drawn once again - WCC elevated to 22.6 (was 7 on d/c), lactate level 2. Procal negative. - blood pressure low, on IVF (NS with 20 mEq of KCl at 100 mls/hr) - sputum cx during prior hospitalization grew ESBL, however pt improved w/out coverage for this. Pt was seen by ID team on prior admission who felt this was colonization. - discharged home on augmentin (total of 14 days). Upon readmission, she was treated with IV vancomycin, gentamicin, zosyn and ertapenem. - treated with IV steroids on prior admission -> patient chronically on 10mg of prednisone at home (2) Acute on chronic respiratory failure with hypoxemia: - chronically on 2L via trach, 4L with exertion - requiring 10L w/FiO2 of 50 via trach collar while here - follows w/pulmonology in clinic (3) Bradycardia: -periodically bradycardic during last hospital admission, etiology unclear, asymptomatic -HR dropped as low as 38 in hospital -Seen by Cardiology who recommended outpatient evaluation for pacemaker (4) Aspiration risk - Per discussion with family, patient has a chronic aspiration risk. Family was previously offered placement of a feeding tube, however they declined. - SLT recommended soft bite-sized diet with nectar thick liquids, however this may not have been followed after patient was discharged from hospital (2) Down syndrome: (3) Seizure disorder: (4) Depression: (5) Aspiration pneumonia: (6) Tracheal anomaly: (7) CAMILLA (obstructive sleep apnea): (8) Pulmonary hypertension: (9) Bradycardia: (10) HLD (hyperlipidemia): (11) E. coli infection: (12) Type 1 diabetes: (13) Hypothyroidism: (14) GERD (gastroesophageal reflux disease): (15) Dysphagia: (16) Anemia of chronic disease: Total Time Total Time Spent Total Time Spent (In Minutes): <30 Discharge Plan Discharge Items Patient Disposition: Transfer Acute Care Hospital Reason For Visit: PNEUMONIA Discharge Diagnosis: Aspiration Pneumonia Discharge Goals: Improve disease control Activity: Resume your previous activity Non-emergency contact: Primary Care Provider Call non-emergency contact if: you have any medication questions and you have a fever Diet: Carb Count or DM1 Addtl Provider Instructions: Ms. Roca is a 52-year-old female with a complex past medical history including Down syndrome, diabetes mellitus, hyperlipidemia, hypothyroidism, pulmonary hypertension, tracheal stenosis with permanent tracheostomy, recurrent aspiration pneumonia, chronic hypoxic respiratory failure (2L oxygen at rest, 4 L oxygen with activity). She was recently discharged on 04/21/2018 for aspiration pneumonia on Augmentin, however she presented to [facility] again on with fever, shortness of breath and lethargy. Of note, she has multiple prior admissions to the hospital for aspiration pneumonia, the other most recent admissions were on 02/14-02/16 and again on 03/07-03/10. - CXR showed bilateral basilar infiltrates, unchanged from prior discharge - blood cultures negative on prior visit, drawn once again - WCC elevated to 22.6 (was 7 on d/c), lactate level 2. Procal negative. - blood pressure low, on IVF (NS with 20 mEq of KCl at 100 mls/hr) Otherwise, vitals stable - sputum cx during prior hospitalization grew ESBL, however pt improved w/out coverage for this. Pt was seen by our ID team who felt this was colonization. - discharged home on augmentin (total of 14 days). Upon readmission, she was treated with IV vancomycin, gentamicin, zosyn and ertapenem. - treated with IV steroids on prior admission. caution with using IV steroids as patient's blood sugars run in 300s-400s and requires an insulin drip to manage. (2) Acute on chronic respiratory failure with hypoxemia: - chronically on 2L via trach, 4L with exertion - follows w/pulmonology in clinic (3) Bradycardia: -periodically bradycardic, etiology unclear, asymptomatic -HR dropped as low as 38 in hospital -Seen by Cardiology who recommended outpatient evaluation for pacemaker (4) Aspiration risk - Per discussion with family, patient has a chronic aspiration risk. Family was previously offered placement of a feeding tube, however they declined as they would prefer her to have some QOL w/allowing her to eat whatever she would like (5) Type 1 diabetes: - placed on IV insulin drip in hospital given high sugars whilst on IV steroids - pt has insulin pump at home Prescriptions: Continue levothyroxine 150 mcg Tablet 150 mcg PO DAILY RF: 0 fluoride (sodium) [Phos-Flur] 0.02 % (0.044 % sod. fluoride) Solution 15 ml DENTAL HS RF: 0 fluticasone-vilanterol [Breo Ellipta] 100-25 mcg/dose Blister With Device 1 inh INHALATION DAILY RF: 0 furosemide [Lasix] 20 mg Tablet 20 mg PO DAILY PRN (Reason: Weight Gain) RF: 0 fluconazole 150 mg Tablet 150 mg PO DIRECTED PRN (Reason: yeast infection) RF: 0 amoxicillin-pot clavulanate 875-125 mg Tablet 1 tab PO BIDM 7 Days Qty: 14 RF: 0 albuterol sulfate 90 mcg/actuation Hfa Aerosol Inhaler 2 puff INHALATION Q4 PRN (Reason: Shortness Of Breath) RF: 0 citalopram 40 mg Tablet 40 mg PO QAM RF: 0 montelukast 10 mg Tablet 10 mg PO PM RF: 0 calcium carbonate [Oyster Shell Calcium 500] 500 mg calcium (1,250 mg) Tablet 500 mg PO TID RF: 0 starch (thickening) [Thick-It] Powder 1 packet PO CONTINOUS RF: 0 clotrimazole 1 % Cream 1 applic TOPICAL TID PRN (Reason: Rash) RF: 0 glucagon (human recombinant) [Glucagon Emergency Kit (human)] 1 mg Recon Soln 1 mg IM DIRECTED PRN (Reason: Hypoglycemia) RF: 0 promethazine 12.5 mg Tablet 12.5 mg PO Q8H PRN (Reason: Nausea) RF: 0 acetylcysteine 200 mg/mL (20 %) Solution 4 ml INHALATION BID RF: 0 ergocalciferol (vitamin D2) [Vitamin D2] 50,000 unit Capsule 50,000 unit PO WK RF: 0 albuterol sulfate 2.5 mg /3 mL (0.083 %) Solution For Nebulization 1 vial INHALATION TID RF: 0 prednisone 10 mg Tablet 10 mg PO DAILY RF: 0 insulin aspart U-100 [Novolog U-100 Insulin aspart] 100 unit/mL solution 1 dose Continuous Subcutaneous Infusion UD RF: 0 omeprazole 20 mg Capsule,Delayed Release(Dr/Ec) 20 mg PO QAM RF: 0 multivitamin,[id number]-[id number] [Therems-M] 27-0.4 mg Tablet 1 tab PO QAM RF: 0 atorvastatin 10 mg Tablet 10 mg PO HS RF: 0 fexofenadine [Allergy Relief (fexofenadine)] 180 mg Tablet 180 mg PO HS RF: 0 amoxicillin-pot clavulanate 500-125 mg Tablet See Label Instructions .ROUTE .COMPLEX RF: 0 acetaminophen [Mapap (acetaminophen)] 325 mg tablet 650 mg PO Q4H PRN (Reason: Fever) RF: 0 albuterol sulfate 2.5 mg /3 mL (0.083 %) Solution For Nebulization 2.5 mg INHALATION Q4 PRN (Reason: chest congestion) RF: 0 Stand-Alone Forms: [facility] Discharge Orders: Discharge Order (Routine); Ordered 04/23/18 Ordered By: Jayashree Arias Admission Data Admit Date/Time: 04/23/18 06:44 Attending Provider: Kane Mcdermott Admit Provider: Kolby Barrientos Primary Care Provider: Vladimir Lucio Other Providers: Kolby Barrientos ; Aiyana Cormier Service: Telemetry Other Interventions: Discharge Summary Assessment (RN) Last Done: 04/23/18 22:35 DC Date/Time DO NOT enter until pt leaves facility: 04/23/18 22:35 Supervising Physician Co-Signing Physician Notes I personally examined the patient and verified all tanner points of history and exam, discussed case, and agree with decision making with Dr Esparza. Appearing to be doing better, family would like her transferred to [facility] for further evaluation. Our team facilitates this happening. Family expresses that they are pleased with care here overall, but they would like a fresh opinion given Valorie's increased frequency and aspiration recently Vitals noted, in general she is awake appears a little bit fatigued but is smiling and is appearing to be generally her usual self Recurrent aspiration eventsstable now, transferred to [facility] per family request. Otherwise as above Resident Activity Tracking Resident Involvement: Resident Care Provided Care Provided: Adult Hospital Medicine
--- NOTE | 2018-04-23 13:48 | Pharmacy Report ---
Pharmacy Abx Dose Short Note - Date of Service April 23, 2018 - Assessment & Plan Assessment * 52 year old F receiving ERTAPENEM + GENTAMICIN + VANCOMYCIN for treatment of recurrent aspiration pna. Pharmacy to dose GENTAMICIN + VANCOMYCIN * Patient's most recent sputum cx (collected from tach) grew ESBL e coli - for which she was receiving Augmentin therapy to complete her abx course per ID recommendations. * She has multiple risk factors for a resistant organism (recent hospitalization , recent broad spectrum abx, diabetes, h/o MRSA, etc...) * Loading doses of Vancomycin and Zosyn were given in the ER, and Gentamicin 5mg /kg adj BW was given as well for reported UTI (however I did not see a urine cx or UA). Zosyn was dc'd by screen maker and Ertapenem was inititated in it's place due to ESBL producing isolate and reported sensitivities * SOM appears to be present (baseline SCr ~0.7-0.8) Plan Vancomycin * 1250mg loading dose given ~18.8mg/kg * Maint dose: 1000mg (~15mg/kg) IV Q 14 hours * Goal trough level for pulm infxn : 15 to 20 mcg/mL * p'kinetic estimates: Vd 0.7L/kg, half-life ~14-16 hrs * Dosing interval may need extended if renal fxn does not improve over next 24 hrs with fluid resuscitation Gentamicin * est Adj BW ~50-52kg * will check 10 hr random level to guide future doses if this therapy is to continue * given the site of infxn is likely pulm, would rec increasing dose to 7mg/kg adjBW going forward and checking another random level ~10 hrs off this second dose Pharmacy will continue to follow and will adjust dose/frequency as necessary. Thank you.
[2018-04-23] MEDS ORDERED: MODERATE STRESS LEVEL ONE (16:41)
[2018-04-23] MEDS ORDERED: Nursing to Pharmacy Communication ONE (16:44)
[2018-04-23] MEDS ORDERED: NovoLIN-R BOLUS FROM BAG IV ONE (17:30)
[2018-04-23] MEDS ORDERED: INSULIN REGULAR 250 UNITS in SODIUM CHLORIDE 0.9% 247.5 ML IV SCH (17:30)
--- NOTE | 2018-04-23 18:14 | Progress Note ---
Date of Service April 23, 2018 Assessment & Plan (1) Acute on chronic respiratory failure with hypoxemia: Ms. Roca is a 52-year-old female with a complex past medical history including Down syndrome, diabetes mellitus, hyperlipidemia, hypothyroidism, pulmonary hypertension, tracheal stenosis with permanent tracheostomy, recurrent aspiration pneumonia, chronic hypoxic respiratory failure (2L oxygen at rest, 4 L oxygen with activity). She was recently discharged on 04/21/2018 for aspiration pneumonia on Augmentin, however she presented to [facility] again on with fever, shortness of breath and lethargy. Of note, she has multiple prior admissions to the hospital for aspiration pneumonia, the other most recent admissions were on 02/14-02/16 and again on 03/07-03/10. - patient seen and examined at bedside. Appears lethargic, awakens to answer questions before falling back asleep. Lungs coarse at bases. - patient stable for transfer to telemetry - family requesting transfer to [facility] -> transfer organized, awaiting bed - Afebrile, blood pressure improving w/IVF (NS with 20 mEq of KCl at 100 mls/hr) - pt being treated w/ertapenem, zosyn and vancomycin for aspiration pneumonia - family managing insulin pump - Type 1 diabetic diet ordered w/soft bite sized food & nectar thick liquids given pt's aspiration risk (2) Down syndrome: (3) Seizure disorder: (4) Depression: (5) Aspiration pneumonia: (6) Tracheal anomaly: (7) CAMILLA (obstructive sleep apnea): (8) Pulmonary hypertension: (9) Bradycardia: (10) HLD (hyperlipidemia): (11) E. coli infection: (12) Type 1 diabetes: (13) Hypothyroidism: (14) GERD (gastroesophageal reflux disease): (15) Dysphagia: (16) Anemia of chronic disease: Supervising Physician Co-Signing Physician Notes I personally examined the patient and verified all tanner points of history and exam, discussed case, and agree with decision making with Dr Esparza. Seen as follow-up from early a.m. admit. Case discussed with ICU staff and caregiver as well. Family and caregiver pleased with care at this hospital, other than feeling there was some degree of miscommunication with nursing in regards to the patient's textures. I have had conversations with patient's mother in the past, and they have clearly wanted to allow the patient to eat and drink as she desired overall. Patient herself is awake and smiling, no meaningful HPI or review of systems obtainable. Family strongly requests transfer to [facility] for opinions on if there is anything else that can be done for her. As the caregiver states "I know we cannot fix Valorie but we just want to see if there is anything else that could be done" Vitals noted, in general she is fatigued but otherwise appears awake and smiling as her usual self. She shows no respiratory distress. HEENT normocephalic atraumatic mucous membranes are moist. Lungs are slightly coarse right worse than left but no accessory muscles Recurrent aspiration in the setting of severe dysphasiawe will gladly try to refer to [facility] as per the family's request, it does sound like everyone overall is on the same page as far as the goals of care for Valorie, but it sounds like because because of her recent frequent readmissions, as well as questionably whether or not her goals of care were clearly outlined with diet textures previous, or if it is possible that nursing and family had different understanding and different expectations, family does request a fresh evaluation , although they seem to to be aware that it is unlikely to have much yield. She is stable for transfer once a bed is available. Subjective See H&P for details on patient's history and physical examination Physical Exam 2 Vital Signs (Past 24 Hours): Last Vital Signs Temp 37.2 C 04/23/18 12:00 Pulse 66 04/23/18 15:36 Resp 18 04/23/18 15:36 BP 101/56 L 04/23/18 13:30 Pulse Ox 95 04/23/18 15:36 Resident Activity Tracking Resident Involvement: Resident Care Provided Care Provided: Adult Hospital Medicine
[2018-04-23] MEDS: INSULIN ASPART 100 UNITS/ML 3 ML PEN SC SCH ×2 (19:16→21:29)
[2018-04-23] MEDS ORDERED: ATORVASTATIN 10 MG TAB PO SCH (21:00)
--- NOTE | 2018-04-23 22:45 | Pharmacy Report ---
Pharmacy Abx Dose Short Note - Date of Service April 23, 2018 - Assessment & Plan Assessment 52 year old F receiving ertapenem, gentamicin, ad vancomycin IV for treatment of recurrent aspiration pneumonia. * please see previous pharmacy note from today for background information Plan Gentamicin * Random level drawn ~7 hours after dose of 250 mg (5 mg/kg) IV resulted at 5.6 mcg/mL. * Based on the [facility] Nomogram, this level indicates that q24h dosing is appropriate * Given that the site of infection is likely pulm, dose will be increased to 7mg /kg (based on adjBW) * A random level has been ordered for ~10 hrs after second dose thank you.
[2018-04-24] MEDS ORDERED: LEVOTHYROXINE SODIUM 150 MCG TABLET PO SCH (06:30)
[2018-04-24] MEDS ORDERED: GENTAMICIN SULFATE 375 MG in DEXTROSE 5% 100 ML IV SCH (07:00)
[2018-04-24] MEDS ORDERED: CITALOPRAM 40 MG TAB PO SCH (09:00)
--- NOTE | 2018-04-25 12:45 | Coding Query ---
SEPSIS To promote full compliance with coding requirements relating to patient care, physician participation is requested in all cases of donation worker uncertainty. Please assist us with the question(s) below: In responding to this query, please exercise your independent professional judgement. The fact that a question is asked does not imply that any particular answer is desired or expected. We appreciate your clarification on this issue. Throughout the medical record, you have clearly documented a localized infection and your patient has clinical evidence of a generalized sepsis or severe sepsis. The term urosepsis is a nonspecific entity and is coded as an UTI. If the patient has sepsis, severe sepsis, from an urinary source or some other source, please clarify in your response below. Sepsis and Septic Shock were documented on the History and Physical but not followed throughout the record, please clarify below. ____ (z) Sepsis Specify Organism: Unknown Specify Associated Condition/Diagnosis: Aspiration Pneumonia (z) Present on Admission () Not present on admission () Unable to clinically determine () Septic Shock (Severe sepsis with acute circulatory failure, unexplained by other causes) () Present on Admission (x) Not present on admission () Unable to clinically determine ( ) Sepsis and Septic Shock ruled out () Other, patient has: MTDD
== END 2018-04-23 22:35 | disposition short-term general hospital (02) | DRG 871 ==
LOC: ED 05:04 → SUATTDRO 06:44 → 1E 06:44 → 2S 19:22

== ENCOUNTER 2018-06-08 12:58 | Inpatient (IN) ==
[2018-06-08] MEDS ORDERED: SODIUM CHLORIDE 0.9% 1000ML 1,000 ML IV SCH (13:15)
[2018-06-08] MEDS ORDERED: NovoLIN-R INSULIN PER UNIT CHARGE IV STA (13:15)
[2018-06-08 13:48] LABS: Hematocrit (blood only) 35.1 % (37-47); Hemoglobin 11.4 g/dL (12.0-16.0); Mean Corpuscular Hgb Conc 32.5 g/dL (32-36); Platelet Count 230 K/uL (130-400); RDW Coefficient of Variation 14.7 % (11.5-14.5); RDW Standard Deviation 54.9 fL (36.4-46.3); Red Blood Count 3.44 M/uL (4.2-5.4); White Blood Count 24.41 K/uL (4.8-10.8)
--- NOTE | 2018-06-08 14:11 | XRay Report ---
XR chest 1V portable CLINICAL HISTORY: weakness COMPARISON STUDY: Chest radiograph May 26, 2018. FINDINGS: Right subclavian Myhdhy-m-Wzrp and tracheostomy tube are noted. There is S-shaped curvature of the thoracolumbar spine. There is no pneumothorax. Cardiac size is normal. There is no evidence f or pulmonary edema. Old left-sided rib fractures are noted. There are also old right rib fractures. B ibasilar opacities persist. These have slightly increased. IMPRESSION: Slight increase in bibasilar opacities which may reflect pneumonia or atelectasis. Radio graphic follow-up is recommended. Electronically signed by: Manny Gorman M.D. 06/08/2018 2:10 PM
[2018-06-08 14:16] LABS: Alanine Aminotransferase 33 U/L (12-78); Albumin Globulin Ratio 0.6 (0.9-2); Albumin Level 2.6 gm/dl (3.4-5.0); Alkaline Phosphatase 114 U/L (45-117); Aspartate Aminotransferase 9 U/L (15-37); BUN Creatinine Ratio 17.2 (10-20); Basophils # (auto) 0.02 K/uL (0-0.2); Basophils % (auto) 0.1 %; Bilirubin,Total 0.4 mg/dl (0.2-1); Blood Urea Nitrogen 27 mg/dl (7-18); Calcium 8.6 mg/dl (8.5-10.1); Carbon Dioxide 29 mmol/L (21-32); Chloride 101 mmol/L (98-107); Est GFR (African American) 43.5; Est GFR (Non-African American) 37.5; Globulin 4.2 gm/dl (2.5-4.0); Glucose 541 mg/dl (70-99); Immature Granulocytes # (auto) 0.08 K/uL (0.00-0.02); Immature Granulocytes % (auto) 0.3 %; Lymphocytes # (auto) 0.57 K/uL (1.2-3.4); Lymphocytes % (auto) 2.3 %; Monocytes # (auto) 0.45 K/uL (0.11-0.59); Monocytes % (auto) 1.8 %; Neutrophils # (auto) 23.29 K/uL (1.4-6.5); Neutrophils % (auto) 95.5 %; Potassium 4.6 mmol/L (3.5-5.1); Sodium 136 mmol/L (136-145); Total Protein 6.8 gm/dl (6.4-8.2)
[2018-06-08 14:23] LABS: Appearance Urine Clear (Clear); Bacteria Urine Automated 2+ (Negative); Bilirubin Urine Negative (Negative); Blood Urine Negative (Negative); Cast Urine Automated 0 /lpf (0-5); Color Urine Yellow; Epithelial Cell Urine Auto 0-5 /lpf (0-5); Glucose Urine UA 3+ (Negative); Ketones Urine Trace (Negative); Leukocyte Esterase Urine Negative (Negative); Nitrite Urine Positive (Negative); Protein Urine Negative (Negative); RBC Urine Automated 0-4 /hpf (0-4); Specific Gravity Urine 1.036 (1.000-1.030); Urobilinogen Urine Negative (Negative)
[2018-06-08 14:27] LABS: Beta-Hydroxybutyrate 0.93 mg/dl (0.2-2.81)
[2018-06-08] MEDS ORDERED: CEFTOLOZANE/TAZOBACTAM 750 MG in DEXTROSE 5% 100 ML IV STA (14:58)
--- NOTE | 2018-06-08 15:29 | Pharmacy Report ---
ED Pharmacist Progress Note - ED Pharmacist Progress Note Date of Service:: June 08, 2018 Notes:: Background Was asked by Dr. Aguilera for antibiotic recommendation for pneumonia. Presenting symptom was severe hyperglycemia - per Dr. Aguilera, believes hyperglycemia to be the result of PNA based on CXR PMH: Down syndrome, T1DM, tracheal stenosis with permanent tracheostomy, recurrent aspiration pneumonia, chronic hypoxic respiratory failure on home O2, and seizure history. Recent admission at [facility] March 2018 and recent transfer to [facility] April 2018. Lives in custodial. Culture hx ESBL E.coli isoalted from trach on 04/16/18 and 04/23/18 WBC significantly elevated and fever noted in ED. Assessment * Carbapenems usual DOC's for ESBL E. coli, but imipenem significantly lowers seizure threshold and ertapenem lacks anti Pseudomonal activity * Spoke w Dr. Mederos (infectious disease) - he approved use of Zerbaxa (ceftolozane/tazobactam) * Cephalosporin allergy - patient has a listed allergy to cephalosporins, but has tolerated Zosyn, cefepime, and ertapenem previously therefore allergic reaction to Zerbaxa unlikely. Dr. Aguilera aware. * Renal function - SCr significantly elevated from baseline, unclear how this will trend. May rapidly improve with hydration. Recommendations * Ceftolozane/tazobactam 750 mg IV x1 initiated in ED * Of note, recommended dose for CrCL 30-50 mL/min is 750 mg IV q8h. This will need to be decreased if SCr continues to worsen or increased if SCr improves Spoke w Dr. Sage (admitting physician) with regards to above.
--- NOTE | 2018-06-08 15:32 | History & Physical Report ---
Date of Service June 08, 2018 Assessment & Plan (1) HCAP (healthcare-associated pneumonia): history of recurrent admissions for pneumonia related to tracheostomy was here in late March/early April CXR with increased bibasilar infiltrates, Leukocytosis with left shift, low grade temperature d/w pharmacy, recommend Zerbaxa 750mg q8 ID will be consulted consult pulmonary for any possible need for bronchoscopy tracheostomy care ordered continue on Mucomyst, Duoneb ordered NSS at 80cc/hr, vitals stable (2) SOM (acute kidney injury): Cr up to 1.5, baseline closer to 1.0 likely due to infection, dehydration treat with NSS at 80cc/hr hold nephrotoxins repeat BMP in the morning (3) Hyperglycemia: type I diabetic on pump will treat with insulin drip allow her to eat if possible d/w pharmacy, will consult them for glycemic management she has a history of being very brittle diabetic so typically she remains on insulin drip while admitted (4) Anemia of chronic disease: Hb is at baseline, macrocytic will follow (5) Down syndrome: supportive care (6) Type 1 diabetes: see above, here with hyperglycemia HCO3 normal, no signs of DKA (7) Hypoxia: mild hypoxia, requiring 2L via tracheostomy will treat PNA Duoneb PRN (8) DVT prophylaxis: Heparin SC History of Present Illness Chief Complaint: sugars were high Primary Care Provider: Vladimir Lucio MD 52 yo female with history of tracheostomy, repeat admission for aspiration pneumonia, h/o ESBL E coli in sputum, Down Syndrome, DM type I with insulin pump, she presented to the ED due to hyperglycemia. The entire history was obtained from her caregiver at the bedside. The patient was doing quite well the past few weeks. She has been compliant with her Mucomyst BID, chest percussion therapy, albuterol treatments. No issues with dyspnea or excessive coughing or excessive sputum production from tracheostomy. Her sugars were noted to be high today by her caregiver, the pump beeped and sugars were 500's. Called her sas architect Dr. Maryann Crandall who recommended 10 units of regular insulin and come to the hospital for evaluation. In the ED her vitals were stable, low grade temperature. She was found to have a WBC of 24k with left shift, Cr up to 1.5 which was up from a baseline of 1.0. Sugar improved from 500's after the insulin dose. CXR showed bibasilar infiltrates, increased compared to prior. She was started on insulin infusion, treated with Zerbaxa IV for the pneumonia and admission requested. Per caregiver, she has been eating well. No complaints of dyspnea, dyspnea on exertion. No chest pain. No abdominal pain, no vomiting, no constipation or d iarrhea. Surprised that she has pneumonia as she has been doing so well. Allergies Allergy/AdvReac Type Severity Reaction Status Date / Time cefaclor Allergy Intermediate HIVES Verified 06/08/18 14:44 Cephalosporins Allergy Intermediate rash per Verified 06/08/18 14:44 mother sertraline Allergy Unknown INTOLERANCE Verified 06/08/18 14:44 Home Medications Home Medications Medication Instructions Recorded Confirmed Type Glucagon Emergency Kit (human) 1 mg IM DIRECTED PRN 02/13/18 06/08/18 History albuterol sulfate 2 puff INHALATION Q4 PRN 02/13/18 06/08/18 History calcium carbonate [Oyster Shell 500 mg PO TID 02/13/18 06/08/18 History Calcium 500] citalopram 40 mg PO QAM 02/13/18 06/08/18 History clotrimazole 1 applic TOPICAL TID PRN 02/13/18 06/08/18 History montelukast 10 mg PO PM 02/13/18 06/08/18 History promethazine 12.5 mg PO Q8H PRN 02/13/18 06/08/18 History acetylcysteine 4 ml INHALATION BID 03/07/18 06/08/18 History Breo Ellipta 1 inh INHALATION DAILY 04/15/18 06/08/18 History Phos-Flur 15 ml DENTAL HS 04/15/18 06/08/18 History levothyroxine 150 mcg PO DAILY 04/15/18 06/08/18 History acetaminophen [Mapap 650 mg PO Q4H PRN 04/23/18 06/08/18 History (acetaminophen)] albuterol sulfate 2.5 mg INHALATION Q4 PRN 04/23/18 06/08/18 History atorvastatin 10 mg PO HS 04/23/18 06/08/18 History ergocalciferol (vitamin D2) 50,000 unit PO WK 04/23/18 06/08/18 History [Vitamin D2] fexofenadine [Allergy Relief 180 mg PO HS 04/23/18 06/08/18 History (fexofenadine)] insulin aspart U-100 [Novolog 1 dose CONTINUOUS SUBCUTANEOUS 04/23/18 06/08/18 History U-100 Insulin aspart] INFUSION UD multivitamin,yx-jqpc-bpwvitja 1 tab PO QAM 04/23/18 06/08/18 History [Therems-M] omeprazole 20 mg PO QAM 04/23/18 06/08/18 History Past Med/Surg History Medical History MRSA (methicillin resistant Staphylococcus aureus) E. coli infection Hypothyroidism GERD (gastroesophageal reflux disease) Seizure-like activity (Resolved) Chronic obstructive pulmonary disease (Acute) Diabetes mellitus, type 2 (Acute) Presence of tracheostomy (Acute) Congenital heart disease On home oxygen therapy Surgical History Hx of tracheostomy History of thoracotomy (Acute) Family History Other Diabetes Hypertension Social History Preferred Language: Turkmen Communication Ability: Impaired Beliefs That Will Affect Care: None Current Living Situation: Personal Care Facility Current Living Situation Comment: senior care Other Information That Helps Us Care for You: No Feels Safe at Home: Yes Safety Concerns: Feels Safe At This Time Smoking Status: Never smoker Hx Alcohol Use: No Hx Substance Use: No Review of Systems All systems reviewed & are unremarkable except as noted in HPI & below (reviewed with the caregiver) Physical Exam Vital Signs (Past 24 Hours): Last Vital Signs Temp 37.6 C H 06/08/18 14:08 Pulse 73 06/08/18 14:08 Resp 20 06/08/18 14:08 BP 117/67 06/08/18 14:08 Pulse Ox 97 06/08/18 14:08 Constitutional: WD/WN, vitals as above well nourished and + behavioral limitations (Down Syndrome); no altered mental status Eyes: PERRL, conjunctivae normal, anicteric sclerae ENMT: external ear and nose normal, oropharynx normal Neck: trachea midline, no thyromegaly (tracheostomy in good position, well maintained) Respiratory: normal respiratory effort and + cough; no respiratory distress Auscultation: + crackles (left base) and + rhonchi (bilaterally) Cardiovascular: RRR, no murmur, no edema Gastrointestinal (Abdomen): normal bowel sounds, soft, nontender, no hepatosplenomegaly Musculoskeletal: no cyanosis or clubbing, extremities motor strength 5/5 Skin: no rashes, warm and dry Neurologic: patellar DTR's 2+ bilat, sensation intact and PERRL, EOMI, accommodation nl, no face palsy, no dysarthria Psychiatric: A+Ox3, euthymic affect Lymphatic: no cervical or axillary lymphadenopathy Results & Data Laboratory Results Laboratory Results - last 24 hr 06/08/18 06/08/18 06/08/18 13:10 13:30 13:30 WBC 24.41 H RBC 3.44 L Hgb 11.4 L Hct 35.1 L MCV 102.0 H MCH 33.1 MCHC 32.5 RDW Std Deviation 54.9 H RDW Coeff of Jackie 14.7 H Plt Count 230 MPV 10.0 Immature Gran % (Auto) 0.3 Neut % (Auto) 95.5 Lymph % (Auto) 2.3 Bulloch % (Auto) 1.8 Eos % (Auto) 0.0 Baso % (Auto) 0.1 Immature Gran # (Auto) 0.08 H Neut # (Auto) 23.29 H Lymph # (Auto) 0.57 L Bulloch # (Auto) 0.45 Eos # (Auto) 0.00 Baso # (Auto) 0.02 Sodium 136 Potassium 4.6 Chloride 101 Carbon Dioxide 29 Anion Gap 7.0 BUN 27 H Creatinine 1.56 H Est Cr Clr Drug Dosing Not Reportable Est GFR ( Amer) 43.5 Est GFR (Non-Af Amer) 37.5 BUN/Creatinine Ratio 17.2 Glucose 541 H* POC Glucose 548 H* Calcium 8.6 Magnesium 2.0 Total Bilirubin 0.4 AST 9 L ALT 33 Alkaline Phosphatase 114 Total Protein 6.8 Albumin 2.6 L Globulin 4.2 H Albumin/Globulin Ratio 0.6 L Beta-Hydroxybutyric Acd 0.93 Urine Color Urine Appearance Urine pH Ur Specific Leiter Urine Protein Urine Glucose (UA) Urine Ketones Urine Blood Urine Nitrite Urine Bilirubin Urine Urobilinogen Ur Leukocyte Esterase Urine WBC (Auto) Urine RBC (Auto) U Hyaline Cast (Auto) U Epithel Cells (Auto) Urine Bacteria (Auto) Influenza Type A Ag Influenza Type B Ag 06/08/18 06/08/18 06/08/18 14:00 14:00 14:47 WBC RBC Hgb Hct MCV MCH MCHC RDW Std Deviation RDW Coeff of Jackie Plt Count MPV Immature Gran % (Auto) Neut % (Auto) Lymph % (Auto) Bulloch % (Auto) Eos % (Auto) Baso % (Auto) Immature Gran # (Auto) Neut # (Auto) Lymph # (Auto) Bulloch # (Auto) Eos # (Auto) Baso # (Auto) Sodium Potassium Chloride Carbon Dioxide Anion Gap BUN Creatinine Est Cr Clr Drug Dosing Est GFR ( Amer) Est GFR (Non-Af Amer) BUN/Creatinine Ratio Glucose POC Glucose 226 H Calcium Magnesium Total Bilirubin AST ALT Alkaline Phosphatase Total Protein Albumin Globulin Albumin/Globulin Ratio Beta-Hydroxybutyric Acd Urine Color Yellow Urine Appearance Clear Urine pH 5.0 Ur Specific Leiter 1.036 H Urine Protein Negative Urine Glucose (UA) 3+ H Urine Ketones Trace H Urine Blood Negative Urine Nitrite Positive H Urine Bilirubin Negative Urine Urobilinogen Negative Ur Leukocyte Esterase Negative Urine WBC (Auto) 1-5 Urine RBC (Auto) 0-4 U Hyaline Cast (Auto) 0 U Epithel Cells (Auto) 0-5 Urine Bacteria (Auto) 2+ H Influenza Type A Ag Neg for Influ A Influenza Type B Ag Neg for Influ B Diagnostic Findings XR chest 1V portable CLINICAL HISTORY: weakness COMPARISON STUDY: Chest radiograph May 26, 2018. FINDINGS: Right subclavian Lriush-l-Syiy and tracheostomy tube are noted. There is S-shaped curvature of the thoracolumbar spine. There is no pneumothorax. Cardiac size is normal. There is no evidence for pulmonary edema. Old left-sided rib fractures are noted. There are also old right rib fractures. Bibasilar opacities persist. These have slightly increased. IMPRESSION: Slight increase in bibasilar opacities which may reflect pneumonia or atelectasis. Radiographic follow-up is recommended. Code Status & VTE Plan Code Status DNR VTE Prophylaxis Plan VTE Prophylaxis will be ordered: Yes
[2018-06-08] MEDS: INSULIN REGULAR 250 UNITS in SODIUM CHLORIDE 0.9% 247.5 ML IV SCH (15:49)
--- NOTE | 2018-06-08 17:01 | Emergency Department Note ---
Entered by Raghavendra Siegel acting as a scribe for Saroj Aguilera MD History of Present Illness General Chief complaint: Hyperglycemia Time Seen by Provider: 06/08/18 13:09 Source: other ([facility] [employer]) History of Present Illness Onset (ago): hour(s) (this morning) Location: head (global) Pain Consistency: + other (persistent) Quality: + other (hyperglycemia, 584 on arrival) Relieved By: not by medication (NovoLog) Associated symptoms: + headaches (resolved with Tylenol) and + other (appeared lethargic) The patient is a 52 year old female who presents to the Emergency Room from [facility] with persistent hyperglycemia beginning this morning, measured to be 548 on arrival. The patients [employer] at bedside reports that the patient had been at baseline until this morning, when she appeared lethargic. She states that her blood sugar this morning was 291, and then at 10:30 this morning it increased to 600. She administered 10 units of NovoLog as recommended after calling Dr. [facility] without improvement. She notes that the insulin pump site was changed yesterday. It was changed again today after uncertainty that it was working, but it seemed to function fine after this. She states that the patient was complaining of a headache this morning that was reso lved after Tylenol. She reports that the patient had pneumonia in April, and her most recent chest x-ray showed improvement. She denies other recent illnesses. Home Medications Home Medications Medication Instructions Recorded Confirmed Type Glucagon Emergency Kit (human) 1 mg IM DIRECTED PRN 02/13/18 06/08/18 History albuterol sulfate 2 puff INHALATION Q4 PRN 02/13/18 06/08/18 History calcium carbonate [Oyster Shell 500 mg PO TID 02/13/18 06/08/18 History Calcium 500] citalopram 40 mg PO QAM 02/13/18 06/08/18 History clotrimazole 1 applic TOPICAL TID PRN 02/13/18 06/08/18 History montelukast 10 mg PO PM 02/13/18 06/08/18 History promethazine 12.5 mg PO Q8H PRN 02/13/18 06/08/18 History acetylcysteine 4 ml INHALATION BID 03/07/18 06/08/18 History Breo Ellipta 1 inh INHALATION DAILY 04/15/18 06/08/18 History Phos-Flur 15 ml DENTAL HS 04/15/18 06/08/18 History levothyroxine 150 mcg PO DAILY 04/15/18 06/08/18 History acetaminophen [Mapap 650 mg PO Q4H PRN 04/23/18 06/08/18 History (acetaminophen)] albuterol sulfate 2.5 mg INHALATION Q4 PRN 04/23/18 06/08/18 History atorvastatin 10 mg PO HS 04/23/18 06/08/18 History ergocalciferol (vitamin D2) 50,000 unit PO WK 04/23/18 06/08/18 History [Vitamin D2] fexofenadine [Allergy Relief 180 mg PO HS 04/23/18 06/08/18 History (fexofenadine)] insulin aspart U-100 [Novolog 1 dose CONTINUOUS SUBCUTANEOUS 04/23/18 06/08/18 History U-100 Insulin aspart] INFUSION UD multivitamin,[id number] 1 tab PO QAM 04/23/18 06/08/18 History [Therems-M] omeprazole 20 mg PO QAM 04/23/18 06/08/18 History Allergies Allergy/AdvReac Type Severity Reaction Status Date / Time cefaclor Allergy Intermediate HIVES Verified 06/08/18 14:44 Cephalosporins Allergy Intermediate rash per Verified 06/08/18 14:44 mother sertraline Allergy Unknown INTOLERANCE Verified 06/08/18 14:44 Past Med/Surg History Medical History MRSA (methicillin resistant Staphylococcus aureus) E. coli infection Hypothyroidism GERD (gastroesophageal reflux disease) Seizure-like activity (Resolved) Chronic obstructive pulmonary disease (Acute) Diabetes mellitus, type 2 (Acute) Presence of tracheostomy (Acute) Congenital heart disease On home oxygen therapy Surgical History Hx of tracheostomy History of thoracotomy (Acute) Social History Preferred Language: Amharic Communication Ability: Impaired Beliefs That Will Affect Care: None Current Living Situation: Personal Care Facility Current Living Situation Comment: snf Other Information That Helps Us Care for You: No Feels Safe at Home: Yes Safety Concerns: Feels Safe At This Time Smoking Status: Never smoker Hx Alcohol Use: No Hx Substance Use: No Review of Systems See HPI for pertinent positives & negatives. and A total of 10 systems reviewed and were otherwise negative Physical Exam Vital Signs Vital Signs - 24 hr 06/08/18 13:14 06/08/18 14:06 06/08/18 14:08 Temperature 36.8 C 37.6 C H Temperature Source Oral Oral Sepsis Recent Fever Within 48 Hours No Sepsis Action Taken by Nursing No Action Required Pulse Rate 78 Pulse Rate [Finger] Pulse Rate [Left Radial] 73 Pulse Rhythm [Left Radial] Regular Pulse Strength [Left Radial] Normal Respiratory Rate 18 20 Respiratory Effort / Characteristics Non-Labored Respiratory Depth Normal Normal Respiratory Pattern Regular Blood Pressure 120/70 Blood Pressure [Left Arm] 117/67 Blood Pressure Mean 86 Blood Pressure Mean [Left Arm] 83 Blood Pressure Position [Left Arm] Pulse Oximetry 96 98 97 Oxygen Delivery Method Room Air Room Air Nasal Cannula Oxygen Flow Rate 2 06/08/18 15:30 06/08/18 15:47 06/08/18 16:00 Temperature Temperature Source Sepsis Recent Fever Within 48 Hours Sepsis Action Taken by Nursing Pulse Rate Pulse Rate [Finger] Pulse Rate [Left Radial] 67 64 Pulse Rhythm [Left Radial] Pulse Strength [Left Radial] Respiratory Rate 25 H 23 Respiratory Effort / Characteristics Non-Labored Spontaneous Non-Labored Spontaneous Respiratory Depth Normal Normal Respiratory Pattern Regular Regular Blood Pressure Blood Pressure [Left Arm] 114/62 108/66 Blood Pressure Mean Blood Pressure Mean [Left Arm] 79 80 Blood Pressure Position [Left Arm] Pulse Oximetry 94 93 Oxygen Delivery Method Nasal Cannula Room Air Nasal Cannula Oxygen Flow Rate 4 2 06/08/18 16:30 06/08/18 17:00 06/08/18 17:30 Temperature 37.0 C Temperature Source Oral Sepsis Recent Fever Within 48 Hours Sepsis Action Taken by Nursing Pulse Rate Pulse Rate [Finger] 65 Pulse Rate [Left Radial] 62 61 Pulse Rhythm [Left Radial] Pulse Strength [Left Radial] Respiratory Rate 21 18 Respiratory Effort / Characteristics Respiratory Depth Respiratory Pattern Blood Pressure Blood Pressure [Left Arm] 110/61 112/67 97/67 L Blood Pressure Mean Blood Pressure Mean [Left Arm] 77 82 77 Blood Pressure Position [Left Arm] Lying Pulse Oximetry 94 96 96 Oxygen Delivery Method Nasal Cannula Nasal Cannula Nasal Cannula Oxygen Flow Rate 2 2 2 GENERAL: Patient is in no acute distress. HEENT: No acute trauma, normocephalic atraumatic, mucous membranes dry, no nasal congestion, no scleral icterus. NECK: Tracheostomy present, no stridor, no adenopathy, no meningismus, trachea is midline. LUNGS: Clear to auscultation bilaterally when listening anteriorly, no wheeze, no rhonchi, breath sounds equal. HEART: Without murmurs gallops or rubs, regular rate and rhythm. ABDOMEN: Soft, nontender, bowel sounds positive, no hernias, no peritonitis. EXTREMITIES: No cyanosis or edema, full range of motion of all the joints without pain or difficulty, no signs for acute trauma. NEUROLOGIC: MR noted. Awake, moving all extremities, currently nonverbal. SKIN: No rash, no jaundice, no diaphoresis. Course 1311: Past medical records reviewed. The patient was evaluated in room C3, and a complete history and physical examination were performed. 1442: I consulted Dr. [facility] Hospitalist. The patient will be reevaluated for hospitalization. 1445: I updated the patient and her [employer] at bedside on current results and the plan for hospitalization. 1520: I attempted to contact the patients mother and left a message on [employer]. 1541: I spoke to the mother on the phone about the patient's case. Consultations Consultation #1: I consulted Dr. S[facility] Hospitalist. The patient will be reevaluated for hospitalization. Time: 14:42 Administered Medications Discontinued Medications Sodium Chloride (Nss 1000ml) 1,000 mls @ 999 mls/hr IV .Q1H1M LEONOR Stop: 06/08/18 14:15 Last Infusion: 06/08/18 14:46 Dose: 0 mls/hr Documented by: [id number] Admin: 06/08/18 13:45 Dose: 999 mls/hr Documented by: [id number] Insulin Human Regular 250 (units/ Sodium Chloride) 250 mls @ 1.5 mls/hr IV .Q24H LEONOR; Protocol Stop: 06/08/18 19:00 Last Titration: 06/08/18 17:39 Dose: 0 units/hr, 0 mls/hr Documented by: [id number] Cosigned by: [id number] Titration: 06/08/18 16:55 Dose: 0 units/hr, 0 mls/hr Documented by: [id number] Cosigned by: [id number] Admin: 06/08/18 15:49 Dose: 1.5 units/hr, 1.5 mls/hr Documented by: [id number] Cosigned by: [id number] Ceftolozane/Tazobactam 750 mg/ (Dextrose) 105.7 mls @ 111.4 mls/hr IV NOW STA Stop: 06/08/18 15:54 Last Infusion: 06/08/18 17:39 Dose: 0 mls/hr Documented by: [id number] Admin: 06/08/18 16:22 Dose: 111.4 mls/hr Documented by: [id number] Insulin Human Regular (Novolin R U-100 Per Unit) 10 units IV NOW STA Stop: 06/08/18 13:16 Last Admin: 06/08/18 13:45 Dose: 10 units Documented by: [id number] Cosigned by: [id number] Medical Decision Making Differential Diagnosis Differential diagnosis: dehydration, UTI, pneumonia, influenza, DKA, hyperglycemia, renal failure, malfunctioning insulin pump Medical Records Attestation: I reviewed the patient's medical records. Home Medications Current Medication List: was personally reviewed by me Laboratory Data Attestation: I reviewed the patient's lab results. Result diagrams: 06/08/18 13:30 06/08/18 13:30 Lab Results 06/08/18 06/08/18 06/08/18 Range/Units 13:10 13:30 13:30 WBC 24.41 H (4.8-10.8) K/uL RBC 3.44 L (4.2-5.4) M/uL Hgb 11.4 L (12.0-16.0) g/dL Hct 35.1 L (37-47) % MCV 102.0 H (80-100) fL MCH 33.1 (25-34) pg MCHC 32.5 (32-36) g/dL RDW Std Deviation 54.9 H (36.4-46.3) fL RDW Coeff of Jackie 14.7 H (11.5-14.5) % Plt Count 230 (130-400) K/uL MPV 10.0 (7.4-10.4) fL Immature Gran % (Auto) 0.3 % Neut % (Auto) 95.5 % Lymph % (Auto) 2.3 % [place] % (Auto) 1.8 % Eos % (Auto) 0.0 % Baso % (Auto) 0.1 % Immature Gran # (Auto) 0.08 H (0.00-0.02) K/uL Neut # (Auto) 23.29 H (1.4-6.5) K/uL Lymph # (Auto) 0.57 L (1.2-3.4) K/uL [place] # (Auto) 0.45 (0.11-0.59) K/uL Eos # (Auto) 0.00 (0-0.5) K/uL Baso # (Auto) 0.02 (0-0.2) K/uL Sodium 136 (136-145) mmol/L Potassium 4.6 (3.5-5.1) mmol/L Chloride 101 (98-107) mmol/L Carbon Dioxide 29 (21-32) mmol/L Anion Gap 7.0 (3-11) BUN 27 H (7-18) mg/dl Creatinine 1.56 H (0.6-1.2) mg/dl Est Cr Clr Drug Dosing Not Reportable Est GFR ( Amer) 43.5 Est GFR (Non-Af Amer) 37.5 BUN/Creatinine Ratio 17.2 (10-20) Glucose 541 H* (70-99) mg/dl POC Glucose 548 H* (70-99) Calcium 8.6 (8.5-10.1) mg/dl Magnesium 2.0 (1.8-2.4) mg/dl Total Bilirubin 0.4 (0.2-1) mg/dl AST 9 L (15-37) U/L ALT 33 (12-78) U/L Alkaline Phosphatase 114 (45-117) U/L Total Protein 6.8 (6.4-8.2) gm/dl Albumin 2.6 L (3.4-5.0) gm/dl Globulin 4.2 H (2.5-4.0) gm/dl Albumin/Globulin Ratio 0.6 L (0.9-2) Beta-Hydroxybutyric Acd 0.93 (0.2-2.81) mg/dl Urine Color Urine Appearance (Clear) Urine pH (4.5-7.5) Ur Specific Living[place] (1.000-1.030) Urine Protein (Negative) Urine Glucose (UA) (Negative) Urine Ketones (Negative) Urine Blood (Negative) Urine Nitrite (Negative) Urine Bilirubin (Negative) Urine Urobilinogen (Negative) Ur Leukocyte Esterase (Negative) Urine WBC (Auto) (0-5) /hpf Urine RBC (Auto) (0-4) /hpf U Hyaline Cast (Auto) (0-5) /lpf U Epithel Cells (Auto) (0-5) /lpf Urine Bacteria (Auto) (Negative) Nasal Screen MRSA (PCR) (Negative) Influenza Type A Ag (Neg) Influenza Type B Ag (Neg) 06/08/18 06/08/18 06/08/18 Range/Units 14:00 14:00 14:47 WBC (4.8-10.8) K/uL RBC (4.2-5.4) M/uL Hgb (12.0-16.0) g/dL Hct (37-47) % MCV (80-100) fL MCH (25-34) pg MCHC (32-36) g/dL RDW Std Deviation (36.4-46.3) fL RDW Coeff of Jackie (11.5-14.5) % Plt Count (130-400) K/uL MPV (7.4-10.4) fL Immature Gran % (Auto) % Neut % (Auto) % Lymph % (Auto) % [place] % (Auto) % Eos % (Auto) % Baso % (Auto) % Immature Gran # (Auto) (0.00-0.02) K/uL Neut # (Auto) (1.4-6.5) K/uL Lymph # (Auto) (1.2-3.4) K/uL [place] # (Auto) (0.11-0.59) K/uL Eos # (Auto) (0-0.5) K/uL Baso # (Auto) (0-0.2) K/uL Sodium (136-145) mmol/L Potassium (3.5-5.1) mmol/L Chloride (98-107) mmol/L Carbon Dioxide (21-32) mmol/L Anion Gap (3-11) BUN (7-18) mg/dl Creatinine (0.6-1.2) mg/dl Est Cr Clr Drug Dosing Est GFR ( Amer) Est GFR (Non-Af Amer) BUN/Creatinine Ratio (10-20) Glucose (70-99) mg/dl POC Glucose 226 H (70-99) Calcium (8.5-10.1) mg/dl Magnesium (1.8-2.4) mg/dl Total Bilirubin (0.2-1) mg/dl AST (15-37) U/L ALT (12-78) U/L Alkaline Phosphatase (45-117) U/L Total Protein (6.4-8.2) gm/dl Albumin (3.4-5.0) gm/dl Globulin (2.5-4.0) gm/dl Albumin/Globulin Ratio (0.9-2) Beta-Hydroxybutyric Acd (0.2-2.81) mg/dl Urine Color Yellow Urine Appearance Clear (Clear) Urine pH 5.0 (4.5-7.5) Ur Specific [place] 1.036 H (1.000-1.030) Urine Protein Negative (Negative) Urine Glucose (UA) 3+ H (Negative) Urine Ketones Trace H (Negative) Urine Blood Negative (Negative) Urine Nitrite Positive H (Negative) Urine Bilirubin Negative (Negative) Urine Urobilinogen Negative (Negative) Ur Leukocyte Esterase Negative (Negative) Urine WBC (Auto) 1-5 (0-5) /hpf Urine RBC (Auto) 0-4 (0-4) /hpf U Hyaline Cast (Auto) 0 (0-5) /lpf U Epithel Cells (Auto) 0-5 (0-5) /lpf Urine Bacteria (Auto) 2+ H (Negative) Nasal Screen MRSA (PCR) (Negative) Influenza Type A Ag Neg for Influ A (Neg) Influenza Type B Ag Neg for Influ B (Neg) 06/08/18 06/08/18 06/08/18 Range/Units 16:54 17:33 18:10 WBC (4.8-10.8) K/uL RBC (4.2-5.4) M/uL Hgb (12.0-16.0) g/dL Hct (37-47) % MCV (80-100) fL MCH (25-34) pg MCHC (32-36) g/dL RDW Std Deviation (36.4-46.3) fL RDW Coeff of Jackie (11.5-14.5) % Plt Count (130-400) K/uL MPV (7.4-10.4) fL Immature Gran % (Auto) % Neut % (Auto) % Lymph % (Auto) % [place] % (Auto) % Eos % (Auto) % Baso % (Auto) % Immature Gran # (Auto) (0.00-0.02) K/uL Neut # (Auto) (1.4-6.5) K/uL Lymph # (Auto) (1.2-3.4) K/uL [place] # (Auto) (0.11-0.59) K/uL Eos # (Auto) (0-0.5) K/uL Baso # (Auto) (0-0.2) K/uL Sodium (136-145) mmol/L Potassium (3.5-5.1) mmol/L Chloride (98-107) mmol/L Carbon Dioxide (21-32) mmol/L Anion Gap (3-11) BUN (7-18) mg/dl Creatinine (0.6-1.2) mg/dl Est Cr Clr Drug Dosing Est GFR ( Amer) Est GFR (Non-Af Amer) BUN/Creatinine Ratio (10-20) Glucose (70-99) mg/dl POC Glucose 122 H 123 H (70-99) Calcium (8.5-10.1) mg/dl Magnesium (1.8-2.4) mg/dl Total Bilirubin (0.2-1) mg/dl AST (15-37) U/L ALT (12-78) U/L Alkaline Phosphatase (45-117) U/L Total Protein (6.4-8.2) gm/dl Albumin (3.4-5.0) gm/dl Globulin (2.5-4.0) gm/dl Albumin/Globulin Ratio (0.9-2) Beta-Hydroxybutyric Acd (0.2-2.81) mg/dl Urine Color Urine Appearance (Clear) Urine pH (4.5-7.5) Ur Specific [place] (1.000-1.030) Urine Protein (Negative) Urine Glucose (UA) (Negative) Urine Ketones (Negative) Urine Blood (Negative) Urine Nitrite (Negative) Urine Bilirubin (Negative) Urine Urobilinogen (Negative) Ur Leukocyte Esterase (Negative) Urine WBC (Auto) (0-5) /hpf Urine RBC (Auto) (0-4) /hpf U Hyaline Cast (Auto) (0-5) /lpf U Epithel Cells (Auto) (0-5) /lpf Urine Bacteria (Auto) (Negative) Nasal Screen MRSA (PCR) Negative (Negative) Influenza Type A Ag (Neg) Influenza Type B Ag (Neg) 06/08/18 Range/Units 18:50 WBC (4.8-10.8) K/uL RBC (4.2-5.4) M/uL Hgb (12.0-16.0) g/dL Hct (37-47) % MCV (80-100) fL MCH (25-34) pg MCHC (32-36) g/dL RDW Std Deviation (36.4-46.3) fL RDW Coeff of Jackie (11.5-14.5) % Plt Count (130-400) K/uL MPV (7.4-10.4) fL Immature Gran % (Auto) % Neut % (Auto) % Lymph % (Auto) % [place] % (Auto) % Eos % (Auto) % Baso % (Auto) % Immature Gran # (Auto) (0.00-0.02) K/uL Neut # (Auto) (1.4-6.5) K/uL Lymph # (Auto) (1.2-3.4) K/uL [place] # (Auto) (0.11-0.59) K/uL Eos # (Auto) (0-0.5) K/uL Baso # (Auto) (0-0.2) K/uL Sodium (136-145) mmol/L Potassium (3.5-5.1) mmol/L Chloride (98-107) mmol/L Carbon Dioxide (21-32) mmol/L Anion Gap (3-11) BUN (7-18) mg/dl Creatinine (0.6-1.2) mg/dl Est Cr Clr Drug Dosing Est GFR ( Amer) Est GFR (Non-Af Amer) BUN/Creatinine Ratio (10-20) Glucose (70-99) mg/dl POC Glucose 206 H (70-99) Calcium (8.5-10.1) mg/dl Magnesium (1.8-2.4) mg/dl Total Bilirubin (0.2-1) mg/dl AST (15-37) U/L ALT (12-78) U/L Alkaline Phosphatase (45-117) U/L Total Protein (6.4-8.2) gm/dl Albumin (3.4-5.0) gm/dl Globulin (2.5-4.0) gm/dl Albumin/Globulin Ratio (0.9-2) Beta-Hydroxybutyric Acd (0.2-2.81) mg/dl Urine Color Urine Appearance (Clear) Urine pH (4.5-7.5) Ur Specific [place] (1.000-1.030) Urine Protein (Negative) Urine Glucose (UA) (Negative) Urine Ketones (Negative) Urine Blood (Negative) Urine Nitrite (Negative) Urine Bilirubin (Negative) Urine Urobilinogen (Negative) Ur Leukocyte Esterase (Negative) Urine WBC (Auto) (0-5) /hpf Urine RBC (Auto) (0-4) /hpf U Hyaline Cast (Auto) (0-5) /lpf U Epithel Cells (Auto) (0-5) /lpf Urine Bacteria (Auto) (Negative) Nasal Screen MRSA (PCR) (Negative) Influenza Type A Ag (Neg) Influenza Type B Ag (Neg) Imaging Data Radiologist's Impression: Radiology results as stated below per my review and the radiologist's inte rpretation: XR chest 1V portable CLINICAL HISTORY: weakness COMPARISON STUDY: Chest radiograph May 26, 2018. FINDINGS: Right subclavian [id number]-Crch and tracheostomy tube are noted. There is S-shaped curvature of the thoracolumbar spine. There is no pneumothorax. Cardiac size is normal. There is no evidence for pulmonary edema. Old left-sided rib fractures are noted. There are also old right rib fractures. Bibasilar opacities persist. These have slightly increased. IMPRESSION: Slight increase in bibasilar opacities which may reflect pneumonia or atelectasis. Radiographic follow-up is recommended. Electronically signed by: Manny Gorman M.D. 06/08/2018 2:10 PM Blood Pressure Blood Pressure Findings: Normal blood pressure Blood Pressure Disposition: did not require urgent referral MDM Narrative There is a significant leukocytosis at 24,000, this is consistent with infection. No worrisome anemia. Renal panel testing shows some slight dehydration with a creatinine of 1.5. Glucose was quite elevated at over 500. No hepatitis. No acidosis based on the renal panel testing. Urinalysis was suggestive of infection, urine culture is pending. Influenza testing was negative. Chest film does show a bilateral lower lung pneumonia. Blood cultures are pending. The patient appeared dry clinically. She was given 1 L of IV saline. She received 10 units of IV insulin. After consulting with pharmacy and infectious disease, the patient received Ceftolozane/Tazobactam as antibiotic coverage. The patient was eventually placed on an insulin drip. The patient's blood sugar is improving, the insulin drip is clearly working. She currently seems to be resting comfortably. She has done well with the IV antibiotics ordered. I spoke to the patient's caregivers and to her mother. Hospitalization is required. I did speak to case management, the on-call hospitalist was consulted. In short, I think this pneumonia has led to dehydration and hyperglycemia. The weakness and somnolence is from the high sugar, dehydration and the infection. Impression & Plan Pneumonia, Failure of outpatient treatment, Hyperglycemia Discharge Plan Visit Data *Final* Discharge Date/Time: 06/08/18 17:23 Chief Complaint: Hyperglycemia ED Provider: Saroj Aguilera Discharge Problem: Pneumonia, Failure of outpatient treatment, Hyperglycemia Patient Disposition: Admitted As Inpatient Discharge Instructions Interventions: ED Discharge Assessment Last Done: 06/08/18 17:23 Discharge Problem: Pneumonia Qualifiers: Pneumonia type: due to unspecified organism Laterality: bilateral Lung location: unspecified part of lung Qualified Code(s): J18.9 - Pneumonia, unspecified organism The scribe's documentation has been prepared under my direction and personally reviewed by me in its entirety. I confirm that the note above accurately reflects all work, treatment, procedures, and medical decision making performed by me.
[2018-06-08] MEDS ORDERED: CLOTRIMAZOLE 1% CR 15 GM TUBE TOP PRN (17:39)
[2018-06-08] MEDS ORDERED: INSULIN REGULAR 250 UNITS in SODIUM CHLORIDE 0.9% 247.5 ML IV SCH (17:39)
[2018-06-08] MEDS ORDERED: MODERATE STRESS LEVEL ONE (17:39)
[2018-06-08] MEDS ORDERED: [UNRECOGNIZED DRUG - OTHER] IV SCH (17:39)
[2018-06-08] MEDS ORDERED: HHS GOAL RANGE 250-350 mg/dl ONE (17:39)
[2018-06-08] MEDS ORDERED: PHARMACY GLYCEMIC MGMT CONSULT PRN (17:50)
[2018-06-08] MEDS ORDERED: INSULIN ASPART 100 UNITS/ML 3 ML PEN SC SCH ×2 (18:00)
[2018-06-08] MEDS ORDERED: GLUCOSE 40% GEL 15 GM TUBE PO PRN (18:45)
[2018-06-08] MEDS ORDERED: CARBOHYDRATES FOR HYPOGLYCEMIA PO PRN (18:45)
[2018-06-08] MEDS ORDERED: DEXTROSE 50% 50 ML SYRINGE IV PRN (18:45)
[2018-06-08] MEDS ORDERED: GLUCOSE 10 TABS/TUBE PO PRN (18:45)
[2018-06-08] MEDS ORDERED: GLUCAGON FOR INJ 1 MG VIAL IM PRN (18:45)
[2018-06-08] MEDS ORDERED: INSULIN GLARGINE SOLOSTAR 100 UNITS/ML 3 ML PEN SC ONE (19:00)
[2018-06-08] MEDS: ACETYLCYSTEINE 20% INHAL SOLN ***DISPENSED BY RESP. INH SCH (19:56)
[2018-06-08] MEDS: SODIUM CHLORIDE 0.9% 1000ML 1,000 ML IV SCH (19:56)
[2018-06-08] MEDS: ALBUT/IPRATROP 3MG/0.5MG NEB 3 ML VIAL NEB PRN (19:57)
[2018-06-08] MEDS: INSULIN ASPART 100 UNITS/ML 3 ML PEN SC SCH (22:27)
[2018-06-08] MEDS: HEPARIN SOD 5,000 UNIT/0.5 ML VIAL SQ SCH (22:28)
[2018-06-08] MEDS: FEXOFENADINE HCL 180 MG TAB PO SCH (22:30)
[2018-06-08] MEDS: MONTELUKAST SODIUM 10 MG TABLET PO SCH (22:30)
[2018-06-08] MEDS: CEFTOLOZANE/TAZOBACTAM 750 MG in DEXTROSE 5% 100 ML IV SCH (23:30)
[2018-06-09] MEDS ORDERED: HEPARIN 100 UNIT/ML 5ML FLUSH FLUSH PRN (00:50)
[2018-06-09 01:23] LABS: BUN Creatinine Ratio 22.2 (10-20); Blood Urea Nitrogen 25 mg/dl (7-18); Calcium 8.2 mg/dl (8.5-10.1); Carbon Dioxide 30 mmol/L (21-32); Chloride 105 mmol/L (98-107); Est GFR (African American) 65.7; Est GFR (Non-African American) 56.7; Glucose 357 mg/dl (70-99); Potassium 4.5 mmol/L (3.5-5.1); Sodium 139 mmol/L (136-145)
[2018-06-09 01:35] LABS: Beta-Hydroxybutyrate 2.78 mg/dl (0.2-2.81)
[2018-06-09] MEDS ORDERED: INSULIN ASPART 100 UNITS/ML 3 ML PEN SC SCH (02:00)
[2018-06-09] MEDS: SODIUM CHLORIDE 0.9% 1000ML 1,000 ML IV SCH ×2 (05:33→16:15)
[2018-06-09] MEDS: LEVOTHYROXINE SODIUM 150 MCG TABLET PO SCH (05:43)
[2018-06-09] MEDS: HEPARIN SOD 5,000 UNIT/0.5 ML VIAL SQ SCH ×3 (05:43→20:28)
[2018-06-09 05:51] LABS: Basophils # (auto) 0.02 K/uL (0-0.2); Basophils % (auto) 0.2 %; Eosinophils # (auto) 0.04 K/uL (0-0.5); Eosinophils % (auto) 0.3 %; Hemoglobin 10.1 g/dL (12.0-16.0); Immature Granulocytes # (auto) 0.03 K/uL (0.00-0.02); Immature Granulocytes % (auto) 0.2 %; Lymphocytes # (auto) 1.56 K/uL (1.2-3.4); Lymphocytes % (auto) 12.9 %; Mean Corpuscular Hgb Conc 32.6 g/dL (32-36); Mean Platelet Volume 9.7 fL (7.4-10.4); Monocytes # (auto) 0.52 K/uL (0.11-0.59); Monocytes % (auto) 4.3 %; Neutrophils # (auto) 9.94 K/uL (1.4-6.5); Neutrophils % (auto) 82.1 %; Platelet Count 210 K/uL (130-400); RDW Coefficient of Variation 14.9 % (11.5-14.5); RDW Standard Deviation 54.7 fL (36.4-46.3); Red Blood Count 3.07 M/uL (4.2-5.4); White Blood Count 12.11 K/uL (4.8-10.8)
[2018-06-09 06:19] LABS: BUN Creatinine Ratio 23.5 (10-20); Blood Urea Nitrogen 20 mg/dl (7-18); Calcium 8.1 mg/dl (8.5-10.1); Carbon Dioxide 31 mmol/L (21-32); Chloride 108 mmol/L (98-107); Est GFR (Non-African American) 79.3; Glucose 156 mg/dl (70-99); Potassium 3.9 mmol/L (3.5-5.1); Sodium 141 mmol/L (136-145)
[2018-06-09] MEDS: ALBUT/IPRATROP 3MG/0.5MG NEB 3 ML VIAL NEB PRN ×2 (07:10→18:58)
[2018-06-09] MEDS: ACETYLCYSTEINE 20% INHAL SOLN ***DISPENSED BY RESP. INH SCH ×2 (07:10→18:58)
[2018-06-09] MEDS: INSULIN ASPART 100 UNITS/ML 3 ML PEN SC SCH ×4 (08:54→20:28)
[2018-06-09] MEDS: CITALOPRAM 40 MG TAB PO SCH (08:54)
[2018-06-09] MEDS: CEFTOLOZANE/TAZOBACTAM 750 MG in DEXTROSE 5% 100 ML IV SCH (09:02)
--- NOTE | 2018-06-09 10:11 | Infectious Disease Consult ---
Date of Consultation June 09, 2018 Assessment & Plan (1) HCAP (healthcare-associated pneumonia): continue current abx pending final culture results. History of Present Illness Attending Physician: Monserrat Benson MD pt admitted with high blood sugar. was recently admitted in late March and was found to have ESBL+ E. coli from trach specimen, she was treated with Augmentin and d/c home on 04/21. She returned to ER on 04/23 with SOB, 04/23 sputum also grew ESBL+ E. coli, but was resistant to Augmentin, pt was transferred to [facility] for treatment. Pt unable to give details. Was doing well at home but devloped high blood sugars, remain high, on insulin drip, had cxr in ER showing increased infiltrates compared to 05/26 Cxr. Also found to have high wbc, 24, improved to 12 today. afebrile currently but temp 37.6 in ER. Placed on Zerbaxa on admission, ID consulted for approval. tolerting abx, Sputum culture pending but gnr on gram stain, blood cultures pending. pt awake and alert on my exam. no sob, no palomo, no wheeze but states she is having increased secretions, no cp. denies n/v/d/abd pain. UA negative but culture with gnr. Flu swab negative. no pain at port site. Allergies Allergy/AdvReac Type Severity Reaction Status Date / Time cefaclor Allergy Intermediate HIVES Verified 06/08/18 14:44 Cephalosporins Allergy Intermediate rash per Verified 06/08/18 14:44 mother sertraline Allergy Unknown INTOLERANCE Verified 06/08/18 14:44 Home Medications Home Medications Medication Instructions Recorded Confirmed Type Glucagon Emergency Kit (human) 1 mg IM DIRECTED PRN 02/13/18 06/08/18 History albuterol sulfate 2 puff INHALATION Q4 PRN 02/13/18 06/08/18 History calcium carbonate [Oyster Shell 500 mg PO TID 02/13/18 06/08/18 History Calcium 500] citalopram 40 mg PO QAM 02/13/18 06/08/18 History clotrimazole 1 applic TOPICAL TID PRN 02/13/18 06/08/18 History montelukast 10 mg PO PM 02/13/18 06/08/18 History promethazine 12.5 mg PO Q8H PRN 02/13/18 06/08/18 History acetylcysteine 4 ml INHALATION BID 03/07/18 06/08/18 History Breo Ellipta 1 inh INHALATION DAILY 04/15/18 06/08/18 History Phos-Flur 15 ml DENTAL HS 04/15/18 06/08/18 History levothyroxine 150 mcg PO DAILY 04/15/18 06/08/18 History acetaminophen [Mapap 650 mg PO Q4H PRN 04/23/18 06/08/18 History (acetaminophen)] albuterol sulfate 2.5 mg INHALATION Q4 PRN 04/23/18 06/08/18 History atorvastatin 10 mg PO HS 04/23/18 06/08/18 History ergocalciferol (vitamin D2) 50,000 unit PO WK 04/23/18 06/08/18 History [Vitamin D2] fexofenadine [Allergy Relief 180 mg PO HS 04/23/18 06/08/18 History (fexofenadine)] insulin aspart U-100 [Novolog 1 dose CONTINUOUS SUBCUTANEOUS 04/23/18 06/08/18 History U-100 Insulin aspart] INFUSION UD multivitamin,tp-vtlg-yhomizxf 1 tab PO QAM 04/23/18 06/08/18 History [Therems-M] omeprazole 20 mg PO QAM 04/23/18 06/08/18 History Patient History Medical History MRSA (methicillin resistant Staphylococcus aureus) E. coli infection Hypothyroidism GERD (gastroesophageal reflux disease) Seizure-like activity (Resolved) Chronic obstructive pulmonary disease (Acute) Diabetes mellitus, type 2 (Acute) Presence of tracheostomy (Acute) Congenital heart disease On home oxygen therapy Surgical History Hx of tracheostomy History of thoracotomy (Acute) Family History Other Diabetes Hypertension Social History Preferred Language: Wolof Communication Ability: Impaired Beliefs That Will Affect Care: None Current Living Situation: Personal Care Facility Current Living Situation Comment: senior care Other Information That Helps Us Care for You: No Feels Safe at Home: Yes Safety Concerns: Feels Safe At This Time Smoking Status: Never smoker Hx Alcohol Use: No Hx Substance Use: No Review of Systems all remaining ros reviewed and are negative Physical Exam Vital Signs (Past 24 Hours): Last Vital Signs Temp 36.9 C 06/09/18 07:10 Pulse 54 L 06/09/18 07:11 Resp 16 06/09/18 07:11 BP 116/73 06/09/18 07:10 Pulse Ox 97 06/09/18 07:11 Constitutional: WD/WN, vitals as above Eyes: PERRL, conjunctivae normal, anicteric sclerae ENMT: external ear and nose normal, oropharynx normal Neck: trachea midline, no thyromegaly trach c/d/i, no secretions noted Respiratory: normal respiratory effort, lungs clear to auscultation Cardiovascular: RRR, no murmur, no edema Gastrointestinal (Abdomen): normal bowel sounds, soft, nontender, no hepatosp lenomegaly Musculoskeletal: no cyanosis or clubbing, extremities motor strength 5/5 Skin: no rashes, warm and dry Psychiatric: A+Ox3, euthymic affect Results & Data Laboratory Results Microbiology 06/08/18 17:40 Sputum, Expectorated Gram Stain - Final 06/08/18 17:40 Sputum, Expectorated Sputum Culture - Preliminary Gram negative bacilli 06/08/18 14:00 Urine,Straight Cath Urine Culture - Preliminary Gram negative bacilli
--- NOTE | 2018-06-09 13:21 | Pharmacy Report ---
Glycemic Control Consultation - Date of Service June 09, 2018 - Scope Scope: Glycemic Pharmacist consulted by Dr Crandall on 06/08 for glycemic control and to write orders per [facility] inpatient glycemic control protocol - Objective Weight: 61.3 kg Accuchecks BSG (last 24hrs): 06/08/18 06/08/18 06/08/18 13:10 13:30 14:47 Glucose 541 H* POC Glucose 548 H* 226 H 06/08/18 06/08/18 06/08/18 16:54 17:33 18:50 Glucose POC Glucose 122 H 123 H 206 H 06/08/18 06/08/18 06/08/18 20:31 22:11 23:14 Glucose POC Glucose 365 H* 372 H* 369 H* 06/08/18 06/09/18 06/09/18 23:59 00:54 01:37 Glucose 357 H* POC Glucose 341 H 310 H 06/09/18 06/09/18 06/09/18 02:26 03:30 04:39 Glucose POC Glucose 318 H 252 H 206 H 06/09/18 06/09/18 06/09/18 05:35 05:39 05:41 Glucose 156 H POC Glucose 113 H 161 H 06/09/18 06/09/18 06/09/18 06:40 07:37 09:50 Glucose POC Glucose 105 H 96 414 H* 06/09/18 06/09/18 06/09/18 09:52 11:04 12:25 Glucose POC Glucose 391 H* 329 H 312 H Laboratory Data (last 24hrs): 06/08/18 06/09/18 06/09/18 13:30 00:54 05:35 Potassium 4.6 4.5 3.9 Carbon Dioxide 29 30 31 Anion Gap 7.0 4.0 2.0 L Creatinine 1.56 H 1.11 D 0.84 Est Cr Clr Drug Dosing Not Reportable Not Reportable Not Reportable Beta-Hydroxybutyric Acd 0.93 2.78 - Recent Pertinent Medications Outpatient Anti-diabetic Regimen: * Insulin Pump * A1c = 10.0 % 06/04 The patient is currently receiving: * Insulin infusion * Set carb ratio of 1 unit per 10 grams of CHO Risk Factors for Insulin Resistance: * Infection: Zerbaxa * IVF: Ns * Diet: T2DM - Assessment & Plan Assessment & Plan: ASSESSMENT: * Patient well-known to glycemic control team * Brittle type 1 diabetes often requiring insulin drip with difficult to control sugars * Started on insulin infusion with 15 units of insulin last night, drip titrated down and held this morning with rebound BSG back into 300s * Will continue insulin drip for now PLAN FOR INPATIENT GLYCEMIC CONTROL: * Starting IV insulin infusion per sever stress protocol * Goal Range 150-200 mg/dl * Set carb ratio of 1 unit per 10 grams of CHO- may need to be tightened if BSGs continue to climb on drip * Holding outpatient oral diabetes medications * Please note that the plan above was derived based on current level of insulin resistance and hospital stress. These recommendations are appropriate for inpatient admission only. Plan of care upon discharge will need to be reassessed to avoid potential outpatient hypo/hyperglycemia. Thank you.
[2018-06-09] MEDS: INSULIN REGULAR 250 UNITS in SODIUM CHLORIDE 0.9% 247.5 ML IV SCH (15:36)
[2018-06-09] MEDS: CEFTOLOZANE/TAZOBACTAM 1,500 MG in DEXTROSE 5% 100 ML IV SCH (16:15)
--- NOTE | 2018-06-09 19:25 | Hospitalist Progress Note ---
Date of Service June 09, 2018 Assessment & Plan (1) HCAP (healthcare-associated pneumonia): With a history of recurrent admissions for pneumonia related to tracheostomy and aspiration was here in late March/early April and transferred to [facility] for "second opinion" as per Mom CXR with increased bibasilar infiltrates, Leukocytosis with left shift, low grade temperature d/w pharmacy, recommend Zerbaxa -continue for now and await sputum cx results Sputum cx with GNR, ID pending ID consult appreciated consult pulmonary for any possible need for bronchoscopy-awaiting consult tracheostomy care ordered continue on Mucomyst, Duoneb ordered -can dc IVFs (2) SOM (acute kidney injury): Cr up to 1.5 on admission likely due to infection, dehydration Treated with IVFs and now returned to normal at 0.84 hold nephrotoxins -follow BMP in the morning (3) Hyperglycemia: type I diabetic on pump Glucose now in 200s-300s -continue to treat with insulin drip -continue Pharmacy glycemic management -she has a history of being very brittle diabetic so typically she remains on insulin drip while admitted (4) Anemia of chronic disease: Hb is at baseline, macrocytic will follow (5) Down syndrome: supportive care (6) Type 1 diabetes: see above, here with hyperglycemia HCO3 normal, no signs of DKA (7) Hypoxia: mild hypoxia, requiring 2L via tracheostomy will treat PNA Duoneb PRN (8) DVT prophylaxis: Heparin SC Dispo-remain on tele Subjective Pt has no complaints. Mom and her head corner former report she looks well to them; mom is surprised that she doesn't "look sick." Tele with NSR, rates 50s-60s Review of Systems Unobtainable due to cognitive status Physical Exam Vital Signs (Past 24 Hours): Last Vital Signs Temp 37.1 C 06/09/18 15:33 Pulse 76 06/09/18 19:00 Resp 18 06/09/18 19:00 BP 105/59 L 06/09/18 15:33 Pulse Ox 96 06/09/18 19:00 Constitutional: no acute distress (dysmorphic features) Eyes: PERRL, conjunctivae normal, anicteric sclerae ENMT: external ear and nose normal, oropharynx normal Neck: + abnormal visual inspection (tracheostomy tube in place) Respiratory: normal respiratory effort Auscultation: + wheezes (a few inspiratory and exp wheezes, no crackles or rhonchi) Cardiovascular: RRR, no murmur, no edema Gastrointestinal (Abdomen): normal bowel sounds, soft, nontender, no hepatosplenomegaly Musculoskeletal: Extremities: extremities normal to inspection; no cyanosis and no clubbing Skin: no rashes, warm and dry Neurologic: moves all extremities and awake; no focal motor deficits Psychiatric: Orientation: alert, oriented to person and cooperative Results & Data Laboratory Results 06/09/18 06/09/18 06/09/18 Range/Units 17:43 16:45 16:25 WBC (4.8-10.8) K/uL RBC (4.2-5.4) M/uL Hgb (12.0-16.0) g/dL Hct (37-47) % MCV (80-100) fL MCH (25-34) pg MCHC (32-36) g/dL RDW Std Deviation (36.4-46.3) fL RDW Coeff of Jackie (11.5-14.5) % Plt Count (130-400) K/uL MPV (7.4-10.4) fL Immature Gran % (Auto) % Neut % (Auto) % Lymph % (Auto) % Elbert % (Auto) % Eos % (Auto) % Baso % (Auto) % Immature Gran # (Auto) (0.00-0.02) K/uL Neut # (Auto) (1.4-6.5) K/uL Lymph # (Auto) (1.2-3.4) K/uL Elbert # (Auto) (0.11-0.59) K/uL Eos # (Auto) (0-0.5) K/uL Baso # (Auto) (0-0.2) K/uL Sodium (136-145) mmol/L Potassium (3.5-5.1) mmol/L Chloride (98-107) mmol/L Carbon Dioxide (21-32) mmol/L Anion Gap (3-11) BUN (7-18) mg/dl Creatinine (0.6-1.2) mg/dl Est Cr Clr Drug Dosing Est GFR ( Amer) Est GFR (Non-Af Amer) BUN/Creatinine Ratio (10-20) Glucose (70-99) mg/dl POC Glucose 243 H 204 H 100 H (70-99) Calcium (8.5-10.1) mg/dl Beta-Hydroxybutyric Acd (0.2-2.81) mg/dl Nasal Screen MRSA (PCR) (Negative) 06/09/18 06/09/18 06/09/18 Range/Units 16:08 15:43 14:38 WBC (4.8-10.8) K/uL RBC (4.2-5.4) M/uL Hgb (12.0-16.0) g/dL Hct (37-47) % MCV (80-100) fL MCH (25-34) pg MCHC (32-36) g/dL RDW Std Deviation (36.4-46.3) fL RDW Coeff of Jackie (11.5-14.5) % Plt Count (130-400) K/uL MPV (7.4-10.4) fL Immature Gran % (Auto) % Neut % (Auto) % Lymph % (Auto) % Elbert % (Auto) % Eos % (Auto) % Baso % (Auto) % Immature Gran # (Auto) (0.00-0.02) K/uL Neut # (Auto) (1.4-6.5) K/uL Lymph # (Auto) (1.2-3.4) K/uL Elbert # (Auto) (0.11-0.59) K/uL Eos # (Auto) (0-0.5) K/uL Baso # (Auto) (0-0.2) K/uL Sodium (136-145) mmol/L Potassium (3.5-5.1) mmol/L Chloride (98-107) mmol/L Carbon Dioxide (21-32) mmol/L Anion Gap (3-11) BUN (7-18) mg/dl Creatinine (0.6-1.2) mg/dl Est Cr Clr Drug Dosing Est GFR ( Amer) Est GFR (Non-Af Amer) BUN/Creatinine Ratio (10-20) Glucose (70-99) mg/dl POC Glucose 143 H 134 H 228 H (70-99) Calcium (8.5-10.1) mg/dl Beta-Hydroxybutyric Acd (0.2-2.81) mg/dl Nasal Screen MRSA (PCR) (Negative) 06/09/18 06/09/18 06/09/18 Range/Units 13:50 12:25 11:04 WBC (4.8-10.8) K/uL RBC (4.2-5.4) M/uL Hgb (12.0-16.0) g/dL Hct (37-47) % MCV (80-100) fL MCH (25-34) pg MCHC (32-36) g/dL RDW Std Deviation (36.4-46.3) fL RDW Coeff of Jackie (11.5-14.5) % Plt Count (130-400) K/uL MPV (7.4-10.4) fL Immature Gran % (Auto) % Neut % (Auto) % Lymph % (Auto) % Elbert % (Auto) % Eos % (Auto) % Baso % (Auto) % Immature Gran # (Auto) (0.00-0.02) K/uL Neut # (Auto) (1.4-6.5) K/uL Lymph # (Auto) (1.2-3.4) K/uL Elbert # (Auto) (0.11-0.59) K/uL Eos # (Auto) (0-0.5) K/uL Baso # (Auto) (0-0.2) K/uL Sodium (136-145) mmol/L Potassium (3.5-5.1) mmol/L Chloride (98-107) mmol/L Carbon Dioxide (21-32) mmol/L Anion Gap (3-11) BUN (7-18) mg/dl Creatinine (0.6-1.2) mg/dl Est Cr Clr Drug Dosing Est GFR ( Amer) Est GFR (Non-Af Amer) BUN/Creatinine Ratio (10-20) Glucose (70-99) mg/dl POC Glucose 304 H 312 H 329 H (70-99) Calcium (8.5-10.1) mg/dl Beta-Hydroxybutyric Acd (0.2-2.81) mg/dl Nasal Screen MRSA (PCR) (Negative) 06/09/18 06/09/18 06/09/18 Range/Units 09:52 09:50 07:37 WBC (4.8-10.8) K/uL RBC (4.2-5.4) M/uL Hgb (12.0-16.0) g/dL Hct (37-47) % MCV (80-100) fL MCH (25-34) pg MCHC (32-36) g/dL RDW Std Deviation (36.4-46.3) fL RDW Coeff of Jackie (11.5-14.5) % Plt Count (130-400) K/uL MPV (7.4-10.4) fL Immature Gran % (Auto) % Neut % (Auto) % Lymph % (Auto) % Elbert % (Auto) % Eos % (Auto) % Baso % (Auto) % Immature Gran # (Auto) (0.00-0.02) K/uL Neut # (Auto) (1.4-6.5) K/uL Lymph # (Auto) (1.2-3.4) K/uL Elbert # (Auto) (0.11-0.59) K/uL Eos # (Auto) (0-0.5) K/uL Baso # (Auto) (0-0.2) K/uL Sodium (136-145) mmol/L Potassium (3.5-5.1) mmol/L Chloride (98-107) mmol/L Carbon Dioxide (21-32) mmol/L Anion Gap (3-11) BUN (7-18) mg/dl Creatinine (0.6-1.2) mg/dl Est Cr Clr Drug Dosing Est GFR ( Amer) Est GFR (Non-Af Amer) BUN/Creatinine Ratio (10-20) Glucose (70-99) mg/dl POC Glucose 391 H* 414 H* 96 (70-99) Calcium (8.5-10.1) mg/dl Beta-Hydroxybutyric Acd (0.2-2.81) mg/dl Nasal Screen MRSA (PCR) (Negative) 06/09/18 06/09/18 06/09/18 Range/Units 06:40 05:41 05:39 WBC (4.8-10.8) K/uL RBC (4.2-5.4) M/uL Hgb (12.0-16.0) g/dL Hct (37-47) % MCV (80-100) fL MCH (25-34) pg MCHC (32-36) g/dL RDW Std Deviation (36.4-46.3) fL RDW Coeff of Jackie (11.5-14.5) % Plt Count (130-400) K/uL MPV (7.4-10.4) fL Immature Gran % (Auto) % Neut % (Auto) % Lymph % (Auto) % Elbert % (Auto) % Eos % (Auto) % Baso % (Auto) % Immature Gran # (Auto) (0.00-0.02) K/uL Neut # (Auto) (1.4-6.5) K/uL Lymph # (Auto) (1.2-3.4) K/uL Elbert # (Auto) (0.11-0.59) K/uL Eos # (Auto) (0-0.5) K/uL Baso # (Auto) (0-0.2) K/uL Sodium (136-145) mmol/L Potassium (3.5-5.1) mmol/L Chloride (98-107) mmol/L Carbon Dioxide (21-32) mmol/L Anion Gap (3-11) BUN (7-18) mg/dl Creatinine (0.6-1.2) mg/dl Est Cr Clr Drug Dosing Est GFR ( Amer) Est GFR (Non-Af Amer) BUN/Creatinine Ratio (10-20) Glucose (70-99) mg/dl POC Glucose 105 H 161 H 113 H (70-99) Calcium (8.5-10.1) mg/dl Beta-Hydroxybutyric Acd (0.2-2.81) mg/dl Nasal Screen MRSA (PCR) (Negative) 06/09/18 06/09/18 06/09/18 Range/Units 05:35 05:35 04:39 WBC 12.11 H D (4.8-10.8) K/uL RBC 3.07 L (4.2-5.4) M/uL Hgb 10.1 L (12.0-16.0) g/dL Hct 31.0 L (37-47) % MCV 101.0 H (80-100) fL MCH 32.9 (25-34) pg MCHC 32.6 (32-36) g/dL RDW Std Deviation 54.7 H (36.4-46.3) fL RDW Coeff of Jackie 14.9 H (11.5-14.5) % Plt Count 210 (130-400) K/uL MPV 9.7 (7.4-10.4) fL Immature Gran % (Auto) 0.2 % Neut % (Auto) 82.1 % Lymph % (Auto) 12.9 % Elbert % (Auto) 4.3 % Eos % (Auto) 0.3 % Baso % (Auto) 0.2 % Immature Gran # (Auto) 0.03 H (0.00-0.02) K/uL Neut # (Auto) 9.94 H (1.4-6.5) K/uL Lymph # (Auto) 1.56 (1.2-3.4) K/uL Elbert # (Auto) 0.52 (0.11-0.59) K/uL Eos # (Auto) 0.04 (0-0.5) K/uL Baso # (Auto) 0.02 (0-0.2) K/uL Sodium 141 (136-145) mmol/L Potassium 3.9 (3.5-5.1) mmol/L Chloride 108 H (98-107) mmol/L Carbon Dioxide 31 (21-32) mmol/L Anion Gap 2.0 L (3-11) BUN 20 H (7-18) mg/dl Creatinine 0.84 (0.6-1.2) mg/dl Est Cr Clr Drug Dosing Not Reportable Est GFR ( Amer) 92.0 Est GFR (Non-Af Amer) 79.3 BUN/Creatinine Ratio 23.5 H (10-20) Glucose 156 H (70-99) mg/dl POC Glucose 206 H (70-99) Calcium 8.1 L (8.5-10.1) mg/dl Beta-Hydroxybutyric Acd (0.2-2.81) mg/dl Nasal Screen MRSA (PCR) (Negative) 06/09/18 06/09/18 06/09/18 Range/Units 03:30 02:26 01:37 WBC (4.8-10.8) K/uL RBC (4.2-5.4) M/uL Hgb (12.0-16.0) g/dL Hct (37-47) % MCV (80-100) fL MCH (25-34) pg MCHC (32-36) g/dL RDW Std Deviation (36.4-46.3) fL RDW Coeff of Jackie (11.5-14.5) % Plt Count (130-400) K/uL MPV (7.4-10.4) fL Immature Gran % (Auto) % Neut % (Auto) % Lymph % (Auto) % Elbert % (Auto) % Eos % (Auto) % Baso % (Auto) % Immature Gran # (Auto) (0.00-0.02) K/uL Neut # (Auto) (1.4-6.5) K/uL Lymph # (Auto) (1.2-3.4) K/uL Elbert # (Auto) (0.11-0.59) K/uL Eos # (Auto) (0-0.5) K/uL Baso # (Auto) (0-0.2) K/uL Sodium (136-145) mmol/L Potassium (3.5-5.1) mmol/L Chloride (98-107) mmol/L Carbon Dioxide (21-32) mmol/L Anion Gap (3-11) BUN (7-18) mg/dl Creatinine (0.6-1.2) mg/dl Est Cr Clr Drug Dosing Est GFR ( Amer) Est GFR (Non-Af Amer) BUN/Creatinine Ratio (10-20) Glucose (70-99) mg/dl POC Glucose 252 H 318 H 310 H (70-99) Calcium (8.5-10.1) mg/dl Beta-Hydroxybutyric Acd (0.2-2.81) mg/dl Nasal Screen MRSA (PCR) (Negative) 06/09/18 06/08/18 06/08/18 Range/Units 00:54 23:59 23:14 WBC (4.8-10.8) K/uL RBC (4.2-5.4) M/uL Hgb (12.0-16.0) g/dL Hct (37-47) % MCV (80-100) fL MCH (25-34) pg MCHC (32-36) g/dL RDW Std Deviation (36.4-46.3) fL RDW Coeff of Jackie (11.5-14.5) % Plt Count (130-400) K/uL MPV (7.4-10.4) fL Immature Gran % (Auto) % Neut % (Auto) % Lymph % (Auto) % Elbert % (Auto) % Eos % (Auto) % Baso % (Auto) % Immature Gran # (Auto) (0.00-0.02) K/uL Neut # (Auto) (1.4-6.5) K/uL Lymph # (Auto) (1.2-3.4) K/uL Elbert # (Auto) (0.11-0.59) K/uL Eos # (Auto) (0-0.5) K/uL Baso # (Auto) (0-0.2) K/uL Sodium 139 (136-145) mmol/L Potassium 4.5 (3.5-5.1) mmol/L Chloride 105 (98-107) mmol/L Carbon Dioxide 30 (21-32) mmol/L Anion Gap 4.0 (3-11) BUN 25 H (7-18) mg/dl Creatinine 1.11 D (0.6-1.2) mg/dl Est Cr Clr Drug Dosing Not Reportable Est GFR ( Amer) 65.7 Est GFR (Non-Af Amer) 56.7 BUN/Creatinine Ratio 22.2 H (10-20) Glucose 357 H* (70-99) mg/dl POC Glucose 341 H 369 H* (70-99) Calcium 8.2 L (8.5-10.1) mg/dl Beta-Hydroxybutyric Acd 2.78 (0.2-2.81) mg/dl Nasal Screen MRSA (PCR) (Negative) 06/08/18 06/08/18 06/08/18 Range/Units 22:11 20:31 18:10 WBC (4.8-10.8) K/uL RBC (4.2-5.4) M/uL Hgb (12.0-16.0) g/dL Hct (37-47) % MCV (80-100) fL MCH (25-34) pg MCHC (32-36) g/dL RDW Std Deviation (36.4-46.3) fL RDW Coeff of Jackie (11.5-14.5) % Plt Count (130-400) K/uL MPV (7.4-10.4) fL Immature Gran % (Auto) % Neut % (Auto) % Lymph % (Auto) % Elbert % (Auto) % Eos % (Auto) % Baso % (Auto) % Immature Gran # (Auto) (0.00-0.02) K/uL Neut # (Auto) (1.4-6.5) K/uL Lymph # (Auto) (1.2-3.4) K/uL Elbert # (Auto) (0.11-0.59) K/uL Eos # (Auto) (0-0.5) K/uL Baso # (Auto) (0-0.2) K/uL Sodium (136-145) mmol/L Potassium (3.5-5.1) mmol/L Chloride (98-107) mmol/L Carbon Dioxide (21-32) mmol/L Anion Gap (3-11) BUN (7-18) mg/dl Creatinine (0.6-1.2) mg/dl Est Cr Clr Drug Dosing Est GFR ( Amer) Est GFR (Non-Af Amer) BUN/Creatinine Ratio (10-20) Glucose (70-99) mg/dl POC Glucose 372 H* 365 H* (70-99) Calcium (8.5-10.1) mg/dl Beta-Hydroxybutyric Acd (0.2-2.81) mg/dl Nasal Screen MRSA (PCR) Negative (Negative)
[2018-06-09] MEDS: FEXOFENADINE HCL 180 MG TAB PO SCH (20:29)
[2018-06-09] MEDS: MONTELUKAST SODIUM 10 MG TABLET PO SCH (20:29)
[2018-06-10] MEDS: CEFTOLOZANE/TAZOBACTAM 1,500 MG in DEXTROSE 5% 100 ML IV SCH ×4 (00:07→23:42)
[2018-06-10] MEDS: HEPARIN SOD 5,000 UNIT/0.5 ML VIAL SQ SCH ×3 (05:07→21:22)
[2018-06-10] MEDS: LEVOTHYROXINE SODIUM 150 MCG TABLET PO SCH (05:07)
[2018-06-10 06:13] LABS: Basophils # (auto) 0.04 K/uL (0-0.2); Basophils % (auto) 0.5 %; Eosinophils # (auto) 0.14 K/uL (0-0.5); Eosinophils % (auto) 1.8 %; Hematocrit (blood only) 31.1 % (37-47); Hemoglobin 10.3 g/dL (12.0-16.0); Immature Granulocytes # (auto) 0.06 K/uL (0.00-0.02); Immature Granulocytes % (auto) 0.8 %; Lymphocytes # (auto) 1.48 K/uL (1.2-3.4); Lymphocytes % (auto) 19.2 %; Mean Corpuscular Hgb Conc 33.1 g/dL (32-36); Mean Platelet Volume 9.8 fL (7.4-10.4); Monocytes % (auto) 9.1 %; Neutrophils # (auto) 5.29 K/uL (1.4-6.5); Neutrophils % (auto) 68.6 %; Platelet Count 217 K/uL (130-400); RDW Coefficient of Variation 14.3 % (11.5-14.5); RDW Standard Deviation 52.6 fL (36.4-46.3); Red Blood Count 3.08 M/uL (4.2-5.4); White Blood Count 7.71 K/uL (4.8-10.8)
[2018-06-10 06:46] LABS: BUN Creatinine Ratio 24.3 (10-20); Calcium 7.9 mg/dl (8.5-10.1); Creatinine Clr Calc Pharmacy 71.9 ml/min; Est GFR (African American) 105.5; Potassium 4.1 mmol/L (3.5-5.1)
[2018-06-10] MEDS: ACETYLCYSTEINE 20% INHAL SOLN ***DISPENSED BY RESP. INH SCH ×2 (07:11→19:15)
[2018-06-10] MEDS: ALBUT/IPRATROP 3MG/0.5MG NEB 3 ML VIAL NEB PRN ×2 (07:11→19:15)
[2018-06-10] MEDS: CITALOPRAM 40 MG TAB PO SCH (08:06)
[2018-06-10] MEDS: INSULIN ASPART 100 UNITS/ML 3 ML PEN SC SCH ×4 (08:06→21:21)
[2018-06-10] MEDS: INSULIN REGULAR 250 UNITS in SODIUM CHLORIDE 0.9% 247.5 ML IV SCH (16:10)
[2018-06-10] MEDS: ACETAMINOPHEN 325 MG TAB PO PRN (17:48)
--- NOTE | 2018-06-10 20:01 | Hospitalist Progress Note ---
Date of Service June 10, 2018 Assessment & Plan (1) HCAP (healthcare-associated pneumonia): With a history of recurrent admissions for pneumonia related to tracheostomy and aspiration was here in late March/early April and transferred to [facility] for "second opinion" as per Mom CXR with increased bibasilar infiltrates, Leukocytosis with left shift, low grade temperature, increased sputum production that smelled foul Sputum cx with ESBL E. coli again BCxs NGTD -continue Zerbaxa day#3 -ID consult appreciated-awaiting recommendations for abx choice and time course of treatment--> could consider ertapenem for once daily dosing if could get home abx -consult pulmonary for any possible need for bronchoscopy-awaiting consult tracheostomy care ordered continue on Mucomyst, Duoneb ordered (2) SOM (acute kidney injury): Cr up to 1.5 on admission likely due to infection, dehydration Treated with IVFs and now returned to normal hold nephrotoxins -follow BMP in the morning (3) Hyperglycemia: type I diabetic on pump Hyperglycemia still present but improved from previous -continue to treat with insulin drip -continue Pharmacy glycemic management -she has a history of being very brittle diabetic so typically she remains on insulin drip while admitted (4) Anemia of chronic disease: Hb is at baseline, macrocytic will follow (5) Down syndrome: supportive care (6) Type 1 diabetes: see above, here with hyperglycemia HCO3 normal, no signs of DKA (7) Hypoxia: mild hypoxia, requiring 2L via tracheostomy will treat PNA Duoneb PRN (8) DVT prophylaxis: Heparin SC Dispo-remain on tele, improved, could possibly go home with IV abx tomorrow and leave port accessed if can be approved Subjective Pt only smiles at me tonight but doesn't answer questions. Mom at bedside reports pt was "doing very well all day" and now is tired after eating dinner. Reports her trach was again completely clogged with thick sputum when nut roaster cleaned it today. Tele with NSR rates 60s-70s Review of Systems Unobtainable due to cognitive status Physical Exam Vital Signs (Past 24 Hours): Last Vital Signs Temp 37.2 C 06/10/18 19:04 Pulse 62 06/10/18 19:18 Resp 16 06/10/18 19:18 BP 113/60 06/10/18 19:04 Pulse Ox 97 06/10/18 19:18 Constitutional: no acute distress (dysmorphic features) Eyes: PERRL, conjunctivae normal, anicteric sclerae ENMT: external ear and nose normal, oropharynx normal Neck: + abnormal visual inspection (tracheostomy tube in place) Respiratory: normal respiratory effort Auscultation: + wheezes (a few inspiratory and exp wheezes, no crackles or rhonchi) Cardiovascular: RRR, no murmur, no edema Gastrointestinal (Abdomen): normal bowel sounds, soft, nontender, no hepatosplenomegaly Musculoskeletal: Extremities: extremities normal to inspection; no cyanosis and no clubbing Skin: no rashes, warm and dry Neurologic: moves all extremities and awake; no focal motor deficits Psychiatric: Orientation: alert, oriented to person and cooperative Results & Data Laboratory Results 06/10/18 06/10/18 06/10/18 Range/Units 22:08 21:15 20:09 WBC (4.8-10.8) K/uL RBC (4.2-5.4) M/uL Hgb (12.0-16.0) g/dL Hct (37-47) % MCV (80-100) fL MCH (25-34) pg MCHC (32-36) g/dL RDW Std Deviation (36.4-46.3) fL RDW Coeff of Jackie (11.5-14.5) % Plt Count (130-400) K/uL MPV (7.4-10.4) fL Immature Gran % (Auto) % Neut % (Auto) % Lymph % (Auto) % [place] % (Auto) % Eos % (Auto) % Baso % (Auto) % Immature Gran # (Auto) (0.00-0.02) K/uL Neut # (Auto) (1.4-6.5) K/uL Lymph # (Auto) (1.2-3.4) K/uL [place] # (Auto) (0.11-0.59) K/uL Eos # (Auto) (0-0.5) K/uL Baso # (Auto) (0-0.2) K/uL Sodium (136-145) mmol/L Potassium (3.5-5.1) mmol/L Chloride (98-107) mmol/L Carbon Dioxide (21-32) mmol/L Anion Gap (3-11) BUN (7-18) mg/dl Creatinine (0.6-1.2) mg/dl Est Cr Clr Drug Dosing ml/min Est GFR ( Amer) Est GFR (Non-Af Amer) BUN/Creatinine Ratio (10-20) Glucose (70-99) mg/dl POC Glucose 206 H 171 H 213 H (70-99) Calcium (8.5-10.1) mg/dl 06/10/18 06/10/18 06/10/18 Range/Units 19:02 18:02 16:02 WBC (4.8-10.8) K/uL RBC (4.2-5.4) M/uL Hgb (12.0-16.0) g/dL Hct (37-47) % MCV (80-100) fL MCH (25-34) pg MCHC (32-36) g/dL RDW Std Deviation (36.4-46.3) fL RDW Coeff of Jackie (11.5-14.5) % Plt Count (130-400) K/uL MPV (7.4-10.4) fL Immature Gran % (Auto) % Neut % (Auto) % Lymph % (Auto) % [place] % (Auto) % Eos % (Auto) % Baso % (Auto) % Immature Gran # (Auto) (0.00-0.02) K/uL Neut # (Auto) (1.4-6.5) K/uL Lymph # (Auto) (1.2-3.4) K/uL [place] # (Auto) (0.11-0.59) K/uL Eos # (Auto) (0-0.5) K/uL Baso # (Auto) (0-0.2) K/uL Sodium (136-145) mmol/L Potassium (3.5-5.1) mmol/L Chloride (98-107) mmol/L Carbon Dioxide (21-32) mmol/L Anion Gap (3-11) BUN (7-18) mg/dl Creatinine (0.6-1.2) mg/dl Est Cr Clr Drug Dosing ml/min Est GFR ( Amer) Est GFR (Non-Af Amer) BUN/Creatinine Ratio (10-20) Glucose (70-99) mg/dl POC Glucose 242 H 238 H 194 H (70-99) Calcium (8.5-10.1) mg/dl 06/10/18 06/10/18 06/10/18 Range/Units 15:12 14:08 13:10 WBC (4.8-10.8) K/uL RBC (4.2-5.4) M/uL Hgb (12.0-16.0) g/dL Hct (37-47) % MCV (80-100) fL MCH (25-34) pg MCHC (32-36) g/dL RDW Std Deviation (36.4-46.3) fL RDW Coeff of Jackie (11.5-14.5) % Plt Count (130-400) K/uL MPV (7.4-10.4) fL Immature Gran % (Auto) % Neut % (Auto) % Lymph % (Auto) % [place] % (Auto) % Eos % (Auto) % Baso % (Auto) % Immature Gran # (Auto) (0.00-0.02) K/uL Neut # (Auto) (1.4-6.5) K/uL Lymph # (Auto) (1.2-3.4) K/uL [place] # (Auto) (0.11-0.59) K/uL Eos # (Auto) (0-0.5) K/uL Baso # (Auto) (0-0.2) K/uL Sodium (136-145) mmol/L Potassium (3.5-5.1) mmol/L Chloride (98-107) mmol/L Carbon Dioxide (21-32) mmol/L Anion Gap (3-11) BUN (7-18) mg/dl Creatinine (0.6-1.2) mg/dl Est Cr Clr Drug Dosing ml/min Est GFR ( Amer) Est GFR (Non-Af Amer) BUN/Creatinine Ratio (10-20) Glucose (70-99) mg/dl POC Glucose 206 H 251 H 287 H (70-99) Calcium (8.5-10.1) mg/dl 06/10/18 06/10/18 06/10/18 Range/Units 12:05 10:57 10:27 WBC (4.8-10.8) K/uL RBC (4.2-5.4) M/uL Hgb (12.0-16.0) g/dL Hct (37-47) % MCV (80-100) fL MCH (25-34) pg MCHC (32-36) g/dL RDW Std Deviation (36.4-46.3) fL RDW Coeff of Jackie (11.5-14.5) % Plt Count (130-400) K/uL MPV (7.4-10.4) fL Immature Gran % (Auto) % Neut % (Auto) % Lymph % (Auto) % [place] % (Auto) % Eos % (Auto) % Baso % (Auto) % Immature Gran # (Auto) (0.00-0.02) K/uL Neut # (Auto) (1.4-6.5) K/uL Lymph # (Auto) (1.2-3.4) K/uL [place] # (Auto) (0.11-0.59) K/uL Eos # (Auto) (0-0.5) K/uL Baso # (Auto) (0-0.2) K/uL Sodium (136-145) mmol/L Potassium (3.5-5.1) mmol/L Chloride (98-107) mmol/L Carbon Dioxide (21-32) mmol/L Anion Gap (3-11) BUN (7-18) mg/dl Creatinine (0.6-1.2) mg/dl Est Cr Clr Drug Dosing ml/min Est GFR ( Amer) Est GFR (Non-Af Amer) BUN/Creatinine Ratio (10-20) Glucose (70-99) mg/dl POC Glucose 218 H 156 H 156 H (70-99) Calcium (8.5-10.1) mg/dl 06/10/18 06/10/18 06/10/18 Range/Units 09:19 08:01 06:59 WBC (4.8-10.8) K/uL RBC (4.2-5.4) M/uL Hgb (12.0-16.0) g/dL Hct (37-47) % MCV (80-100) fL MCH (25-34) pg MCHC (32-36) g/dL RDW Std Deviation (36.4-46.3) fL RDW Coeff of Jackie (11.5-14.5) % Plt Count (130-400) K/uL MPV (7.4-10.4) fL Immature Gran % (Auto) % Neut % (Auto) % Lymph % (Auto) % [place] % (Auto) % Eos % (Auto) % Baso % (Auto) % Immature Gran # (Auto) (0.00-0.02) K/uL Neut # (Auto) (1.4-6.5) K/uL Lymph # (Auto) (1.2-3.4) K/uL [place] # (Auto) (0.11-0.59) K/uL Eos # (Auto) (0-0.5) K/uL Baso # (Auto) (0-0.2) K/uL Sodium (136-145) mmol/L Potassium (3.5-5.1) mmol/L Chloride (98-107) mmol/L Carbon Dioxide (21-32) mmol/L Anion Gap (3-11) BUN (7-18) mg/dl Creatinine (0.6-1.2) mg/dl Est Cr Clr Drug Dosing ml/min Est GFR ( Amer) Est GFR (Non-Af Amer) BUN/Creatinine Ratio (10-20) Glucose (70-99) mg/dl POC Glucose 281 H 208 H 143 H (70-99) Calcium (8.5-10.1) mg/dl 06/10/18 06/10/18 06/10/18 Range/Units 06:03 06:02 06:02 WBC 7.71 (4.8-10.8) K/uL RBC 3.08 L (4.2-5.4) M/uL Hgb 10.3 L (12.0-16.0) g/dL Hct 31.1 L (37-47) % MCV 101.0 H (80-100) fL MCH 33.4 (25-34) pg MCHC 33.1 (32-36) g/dL RDW Std Deviation 52.6 H (36.4-46.3) fL RDW Coeff of Jackie 14.3 (11.5-14.5) % Plt Count 217 (130-400) K/uL MPV 9.8 (7.4-10.4) fL Immature Gran % (Auto) 0.8 % Neut % (Auto) 68.6 % Lymph % (Auto) 19.2 % [place] % (Auto) 9.1 % Eos % (Auto) 1.8 % Baso % (Auto) 0.5 % Immature Gran # (Auto) 0.06 H (0.00-0.02) K/uL Neut # (Auto) 5.29 (1.4-6.5) K/uL Lymph # (Auto) 1.48 (1.2-3.4) K/uL [place] # (Auto) 0.70 H (0.11-0.59) K/uL Eos # (Auto) 0.14 (0-0.5) K/uL Baso # (Auto) 0.04 (0-0.2) K/uL Sodium 138 (136-145) mmol/L Potassium 4.1 (3.5-5.1) mmol/L Chloride 105 (98-107) mmol/L Carbon Dioxide 30 (21-32) mmol/L Anion Gap 3.0 (3-11) BUN 18 (7-18) mg/dl Creatinine 0.75 (0.6-1.2) mg/dl Est Cr Clr Drug Dosing 71.9 ml/min Est GFR ( Amer) 105.5 Est GFR (Non-Af Amer) 91.0 BUN/Creatinine Ratio 24.3 H (10-20) Glucose 142 H (70-99) mg/dl POC Glucose 138 H (70-99) Calcium 7.9 L (8.5-10.1) mg/dl 06/10/18 06/10/18 06/10/18 Range/Units 05:02 04:02 03:03 WBC (4.8-10.8) K/uL RBC (4.2-5.4) M/uL Hgb (12.0-16.0) g/dL Hct (37-47) % MCV (80-100) fL MCH (25-34) pg MCHC (32-36) g/dL RDW Std Deviation (36.4-46.3) fL RDW Coeff of Jackie (11.5-14.5) % Plt Count (130-400) K/uL MPV (7.4-10.4) fL Immature Gran % (Auto) % Neut % (Auto) % Lymph % (Auto) % [place] % (Auto) % Eos % (Auto) % Baso % (Auto) % Immature Gran # (Auto) (0.00-0.02) K/uL Neut # (Auto) (1.4-6.5) K/uL Lymph # (Auto) (1.2-3.4) K/uL [place] # (Auto) (0.11-0.59) K/uL Eos # (Auto) (0-0.5) K/uL Baso # (Auto) (0-0.2) K/uL Sodium (136-145) mmol/L Potassium (3.5-5.1) mmol/L Chloride (98-107) mmol/L Carbon Dioxide (21-32) mmol/L Anion Gap (3-11) BUN (7-18) mg/dl Creatinine (0.6-1.2) mg/dl Est Cr Clr Drug Dosing ml/min Est GFR ( Amer) Est GFR (Non-Af Amer) BUN/Creatinine Ratio (10-20) Glucose (70-99) mg/dl POC Glucose 148 H 155 H 176 H (70-99) Calcium (8.5-10.1) mg/dl 06/10/18 06/10/18 06/10/18 Range/Units 02:31 02:10 00:59 WBC (4.8-10.8) K/uL RBC (4.2-5.4) M/uL Hgb (12.0-16.0) g/dL Hct (37-47) % MCV (80-100) fL MCH (25-34) pg MCHC (32-36) g/dL RDW Std Deviation (36.4-46.3) fL RDW Coeff of Jackie (11.5-14.5) % Plt Count (130-400) K/uL MPV (7.4-10.4) fL Immature Gran % (Auto) % Neut % (Auto) % Lymph % (Auto) % [place] % (Auto) % Eos % (Auto) % Baso % (Auto) % Immature Gran # (Auto) (0.00-0.02) K/uL Neut # (Auto) (1.4-6.5) K/uL Lymph # (Auto) (1.2-3.4) K/uL [place] # (Auto) (0.11-0.59) K/uL Eos # (Auto) (0-0.5) K/uL Baso # (Auto) (0-0.2) K/uL Sodium (136-145) mmol/L Potassium (3.5-5.1) mmol/L Chloride (98-107) mmol/L Carbon Dioxide (21-32) mmol/L Anion Gap (3-11) BUN (7-18) mg/dl Creatinine (0.6-1.2) mg/dl Est Cr Clr Drug Dosing ml/min Est GFR ( Amer) Est GFR (Non-Af Amer) BUN/Creatinine Ratio (10-20) Glucose (70-99) mg/dl POC Glucose 125 H 110 H 163 H (70-99) Calcium (8.5-10.1) mg/dl 06/10/18 06/09/18 06/09/18 Range/Units 00:10 23:06 22:06 WBC (4.8-10.8) K/uL RBC (4.2-5.4) M/uL Hgb (12.0-16.0) g/dL Hct (37-47) % MCV (80-100) fL MCH (25-34) pg MCHC (32-36) g/dL RDW Std Deviation (36.4-46.3) fL RDW Coeff of Jackie (11.5-14.5) % Plt Count (130-400) K/uL MPV (7.4-10.4) fL Immature Gran % (Auto) % Neut % (Auto) % Lymph % (Auto) % [place] % (Auto) % Eos % (Auto) % Baso % (Auto) % Immature Gran # (Auto) (0.00-0.02) K/uL Neut # (Auto) (1.4-6.5) K/uL Lymph # (Auto) (1.2-3.4) K/uL [place] # (Auto) (0.11-0.59) K/uL Eos # (Auto) (0-0.5) K/uL Baso # (Auto) (0-0.2) K/uL Sodium (136-145) mmol/L Potassium (3.5-5.1) mmol/L Chloride (98-107) mmol/L Carbon Dioxide (21-32) mmol/L Anion Gap (3-11) BUN (7-18) mg/dl Creatinine (0.6-1.2) mg/dl Est Cr Clr Drug Dosing ml/min Est GFR ( Amer) Est GFR (Non-Af Amer) BUN/Creatinine Ratio (10-20) Glucose (70-99) mg/dl POC Glucose 173 H 207 H 182 H (70-99) Calcium (8.5-10.1) mg/dl Sputum cx with ESBL E. coli Ur cx with E. coli resistant to amp, Unasyn, Bactrim, cefazolin, Zosyn
[2018-06-10] MEDS: FEXOFENADINE HCL 180 MG TAB PO SCH (21:22)
[2018-06-10] MEDS: MONTELUKAST SODIUM 10 MG TABLET PO SCH (21:22)
[2018-06-11] MEDS: PROMETHAZINE HCL 25 MG TAB PO PRN (00:15)
[2018-06-11] MEDS: LEVOTHYROXINE SODIUM 150 MCG TABLET PO SCH (05:42)
[2018-06-11] MEDS: HEPARIN SOD 5,000 UNIT/0.5 ML VIAL SQ SCH ×3 (05:43→21:17)
--- NOTE | 2018-06-11 05:57 | Pharmacy Report ---
Pharmacy Glycemic Short Note 2 - Date of Service June 11, 2018 - Glycemic Short BSG Results (Last 24 hours): 06/10/18 06/10/18 06/10/18 05:02 06:02 06:03 Glucose 142 H POC Glucose 148 H 138 H 06/10/18 06/10/18 06/10/18 06:59 08:01 09:19 Glucose POC Glucose 143 H 208 H 281 H 06/10/18 06/10/18 06/10/18 10:27 10:57 12:05 Glucose POC Glucose 156 H 156 H 218 H 06/10/18 06/10/18 06/10/18 13:10 14:08 15:12 Glucose POC Glucose 287 H 251 H 206 H 06/10/18 06/10/18 06/10/18 16:02 18:02 19:02 Glucose POC Glucose 194 H 238 H 242 H 06/10/18 06/10/18 06/10/18 20:09 21:15 22:08 Glucose POC Glucose 213 H 171 H 206 H 06/10/18 06/11/18 06/11/18 23:04 00:02 01:01 Glucose POC Glucose 190 H 167 H 83 06/11/18 06/11/18 06/11/18 01:23 01:41 02:01 Glucose POC Glucose 78 79 78 06/11/18 06/11/18 06/11/18 02:33 03:30 04:36 Glucose POC Glucose 110 H 151 H 220 H 06/11/18 05:33 Glucose POC Glucose 228 H OUTPATIENT ANTIDIABETIC REGIMEN: * Novolog insulin pump: * 0000 - 0300: 0.7 units/hr * 0300 - 0600: 0.4 units/hr * 0600 - 0900: 0.7 units/hr * 0900 - 1800: 0.9 units/hr * 1800 - 0000: 0.7 units/hr * HbA1c: 10% (06/04/18) ASSESSMENT: * Ms Early remains on an insulin drip for admission while she is unable to use her insulin pump. * Patient's insulin needs are reduced overnight and the drip rate has required reduction the past two nights. During these times when BSGs drop and insulin infusion rate is reduced, accu-checks are required q15m. In an effort to minimize the need for these frequent overnight fingersticks, have scheduled a reduction in the drip rate each evening. Drip may then be up-titrated as needed, but this will hopefully be less intrusive to patient overnight. This will more closely mimic the changes in patient's insulin pump each night. PLAN FOR INPATIENT GLYCEMIC CONTROL: * Continue insulin drip with adjustments per Insulin Infusion Adjustment Calculator * Daily at 2300, reduce gtt rate to 0.6 units/hr * Then, titration per calculator * Bolus insulin * NovoLog per scale ACHS * Goal Range: Low 150 mg/dL - High 200 mg/dL * Correction Factor: correction provided via insulin infusion * Nutritional / Prandial insulin per carb ratio of 1 unit per 9 grams CHO consumed PLAN FOR DISCHARGE: * Patient's A1c (10%) indicates sub-optimal glycemic control. Patient is a very brittle diabetic, and tight glycemic control is very difficult. * Recommend continuing to work with outpatient providers to optimize A1c. * Expect that patient may resume insulin pump as previously ordered when discha rged.
[2018-06-11] MEDS: ALBUT/IPRATROP 3MG/0.5MG NEB 3 ML VIAL NEB PRN ×2 (07:05→19:58)
[2018-06-11] MEDS: ACETYLCYSTEINE 20% INHAL SOLN ***DISPENSED BY RESP. INH SCH ×2 (07:05→19:58)
[2018-06-11 07:14] LABS: Basophils # (auto) 0.02 K/uL (0-0.2); Basophils % (auto) 0.4 %; Eosinophils # (auto) 0.11 K/uL (0-0.5); Hematocrit (blood only) 31.2 % (37-47); Hemoglobin 10.5 g/dL (12.0-16.0); Immature Granulocytes # (auto) 0.05 K/uL (0.00-0.02); Immature Granulocytes % (auto) 0.9 %; Lymphocytes # (auto) 1.26 K/uL (1.2-3.4); Lymphocytes % (auto) 22.4 %; Mean Corpuscular Hgb Conc 33.7 g/dL (32-36); Mean Corpuscular Volume 101.3 fL (80-100); Mean Platelet Volume 10.3 fL (7.4-10.4); Monocytes # (auto) 0.39 K/uL (0.11-0.59); Monocytes % (auto) 6.9 %; Neutrophils % (auto) 67.4 %; Platelet Count 218 K/uL (130-400); RDW Coefficient of Variation 14.6 % (11.5-14.5); RDW Standard Deviation 54.1 fL (36.4-46.3); Red Blood Count 3.08 M/uL (4.2-5.4); White Blood Count 5.63 K/uL (4.8-10.8)
[2018-06-11] MEDS: INSULIN ASPART 100 UNITS/ML 3 ML PEN SC SCH ×4 (07:52→21:16)
[2018-06-11 07:53] LABS: BUN Creatinine Ratio 22.3 (10-20); Calcium 8.3 mg/dl (8.5-10.1); Creatinine Clr Calc Pharmacy 76.9 ml/min; Est GFR (African American) 114.6; Est GFR (Non-African American) 98.9; Potassium 4.1 mmol/L (3.5-5.1)
[2018-06-11] MEDS: CITALOPRAM 40 MG TAB PO SCH (08:35)
[2018-06-11] MEDS: ERTAPENEM SODIUM 1,000 MG in SODIUM CHLORIDE 0.9% 50 ML IV SCH (08:45)
[2018-06-11] MEDS: ACETAMINOPHEN 325 MG TAB PO PRN ×2 (10:47→16:18)
--- NOTE | 2018-06-11 12:21 | Infectious Disease Progress Nt ---
Date of Service June 11, 2018 Assessment & Plan (1) HCAP (healthcare-associated pneumonia): agree with Ertapnem, would give 10 days total, will treat E. coli in urine as well. discussed with primary, ok for d/c when otherwise stable Subjective pt afebrile. changed to ertapenem, tolerating. sputum with ESBL + E. coli, urine growing E. coli, both sensitive to Ertapnem. wbc 5 today. blood cultures negative. Physical Exam Vital Signs (Past 24 Hours): Last Vital Signs Temp 36.9 C 06/11/18 11:00 Pulse 69 06/11/18 11:00 Resp 16 06/11/18 11:00 BP 116/61 06/11/18 11:00 Pulse Ox 97 06/11/18 11:00 Results & Data Laboratory Results Microbiology 06/08/18 14:00 Urine,Straight Cath Urine Culture - Final Escherichia coli 06/08/18 17:40 Sputum, Expectorated Gram Stain - Final 06/08/18 17:40 Sputum, Expectorated Sputum Culture - Final Escherichia coli ESBL 06/08/18 15:03 Blood Blood Culture - Preliminary No growth to date. 06/08/18 14:25 Blood Blood Culture - Preliminary No growth to date.
[2018-06-11] MEDS: INSULIN REGULAR 250 UNITS in SODIUM CHLORIDE 0.9% 247.5 ML IV SCH (17:09)
--- NOTE | 2018-06-11 17:57 | Hospitalist Progress Note ---
Date of Service June 11, 2018 Assessment & Plan (1) HCAP (healthcare-associated pneumonia): With a history of recurrent admissions for pneumonia related to tracheostomy and aspiration was here in late March/early April and transferred to [facility] for "second opinion" as per Mom-Pulm there also thought recurrent aspiration PNAs CXR with increased bibasilar infiltrates, Leukocytosis with left shift, low grade temperature, increased sputum production that smelled foul Improved clinically now Sputum cx with ESBL E. coli again BCxs NGTD -received Zerbaxax 3 days, then changed to IV ertapenem today based on sensitivities--> ID recommends 10 days total-today day#4 overall -ID consult appreciated -continue tracheostomy care -continue on Mucomyst, Duoneb (2) SOM (acute kidney injury): Cr up to 1.5 on admission likely due to infection, dehydration Treated with IVFs and now returned to normal hold nephrotoxins (3) Hyperglycemia: type I diabetic on pump Hyperglycemia remains and then with some borderline hypoglycemia today--> very brittle diabetic -continue to treat with insulin drip and transition to pump prior to discharge -continue Pharmacy glycemic management (4) Anemia of chronic disease: Hb is at baseline, macrocytic will follow (5) Down syndrome: supportive care (6) Type 1 diabetes: see above, here with hyperglycemia HCO3 normal, no signs of DKA (7) Hypoxia: mild hypoxia, requiring 2L via tracheostomy will treat PNA Duoneb PRN (8) Hypothyroidism: continue LT4 home dose (9) CAMILLA (obstructive sleep apnea): continue on hs O2 (10) Depression: continue home celexa (11) UTI (urinary tract infection): UTI- simple cystitis, with E. coli also resistant to multiple abx -Zerbaxa covering and so will ertapenem (12) DVT prophylaxis: Heparin SC Dispo-remain on tele, improved, stable for dc to home with IV abx when approved--> will leave port accessed Subjective Pt doing well. Mom at bedside reports her trach was cleaned by caretaker resort earlier today and had no sputum clogging it like before. Eating well, no cough,afebrile. Tele with NSR, rates in the 60s. Discussed case with ID today Review of Systems Unobtainable due to cognitive status Physical Exam Vital Signs (Past 24 Hours): Last Vital Signs Temp 36.9 C 03/27/19 15:15 Pulse 62 06/11/18 16:00 Resp 20 06/11/18 15:15 BP 110/66 06/11/18 15:15 Pulse Ox 92 06/11/18 15:15 Constitutional: no acute distress (dysmorphic features) Eyes: PERRL, conjunctivae normal, anicteric sclerae ENMT: external ear and nose normal, oropharynx normal Neck: + abnormal visual inspection (tracheostomy tube in place) Respiratory: normal respiratory effort Auscultation: + wheezes (a few inspiratory and exp wheezes, no crackles or rhonchi) Cardiovascular: RRR, no murmur, no edema Gastrointestinal (Abdomen): normal bowel sounds, soft, nontender, no hepatosplenomegaly Musculoskeletal: Extremities: extremities normal to inspection; no cyanosis and no clubbing Skin: no rashes, warm and dry Neurologic: moves all extremities and awake; no focal motor deficits Psychiatric: Orientation: alert, oriented to person and cooperative Results & Data Laboratory Results 06/11/18 06/11/18 06/11/18 Range/Units 21:59 21:10 19:56 WBC (4.8-10.8) K/uL RBC (4.2-5.4) M/uL Hgb (12.0-16.0) g/dL Hct (37-47) % MCV (80-100) fL MCH (25-34) pg MCHC (32-36) g/dL RDW Std Deviation (36.4-46.3) fL RDW Coeff of Jackie (11.5-14.5) % Plt Count (130-400) K/uL MPV (7.4-10.4) fL Immature Gran % (Auto) % Neut % (Auto) % Lymph % (Auto) % [place] % (Auto) % Eos % (Auto) % Baso % (Auto) % Immature Gran # (Auto) (0.00-0.02) K/uL Neut # (Auto) (1.4-6.5) K/uL Lymph # (Auto) (1.2-3.4) K/uL [place] # (Auto) (0.11-0.59) K/uL Eos # (Auto) (0-0.5) K/uL Baso # (Auto) (0-0.2) K/uL Sodium (136-145) mmol/L Potassium (3.5-5.1) mmol/L Chloride (98-107) mmol/L Carbon Dioxide (21-32) mmol/L Anion Gap (3-11) BUN (7-18) mg/dl Creatinine (0.6-1.2) mg/dl Est Cr Clr Drug Dosing ml/min Est GFR ( Amer) Est GFR (Non-Af Amer) BUN/Creatinine Ratio (10-20) Glucose (70-99) mg/dl POC Glucose 174 H 270 H 236 H (70-99) Calcium (8.5-10.1) mg/dl 06/11/18 06/11/18 06/11/18 Range/Units 19:00 18:03 17:08 WBC (4.8-10.8) K/uL RBC (4.2-5.4) M/uL Hgb (12.0-16.0) g/dL Hct (37-47) % MCV (80-100) fL MCH (25-34) pg MCHC (32-36) g/dL RDW Std Deviation (36.4-46.3) fL RDW Coeff of Jackie (11.5-14.5) % Plt Count (130-400) K/uL MPV (7.4-10.4) fL Immature Gran % (Auto) % Neut % (Auto) % Lymph % (Auto) % [place] % (Auto) % Eos % (Auto) % Baso % (Auto) % Immature Gran # (Auto) (0.00-0.02) K/uL Neut # (Auto) (1.4-6.5) K/uL Lymph # (Auto) (1.2-3.4) K/uL [place] # (Auto) (0.11-0.59) K/uL Eos # (Auto) (0-0.5) K/uL Baso # (Auto) (0-0.2) K/uL Sodium (136-145) mmol/L Potassium (3.5-5.1) mmol/L Chloride (98-107) mmol/L Carbon Dioxide (21-32) mmol/L Anion Gap (3-11) BUN (7-18) mg/dl Creatinine (0.6-1.2) mg/dl Est Cr Clr Drug Dosing ml/min Est GFR ( Amer) Est GFR (Non-Af Amer) BUN/Creatinine Ratio (10-20) Glucose (70-99) mg/dl POC Glucose 304 H 298 H 242 H (70-99) Calcium (8.5-10.1) mg/dl 06/11/18 06/11/18 06/11/18 Range/Units 16:02 15:18 15:00 WBC (4.8-10.8) K/uL RBC (4.2-5.4) M/uL Hgb (12.0-16.0) g/dL Hct (37-47) % MCV (80-100) fL MCH (25-34) pg MCHC (32-36) g/dL RDW Std Deviation (36.4-46.3) fL RDW Coeff of Jackie (11.5-14.5) % Plt Count (130-400) K/uL MPV (7.4-10.4) fL Immature Gran % (Auto) % Neut % (Auto) % Lymph % (Auto) % [place] % (Auto) % Eos % (Auto) % Baso % (Auto) % Immature Gran # (Auto) (0.00-0.02) K/uL Neut # (Auto) (1.4-6.5) K/uL Lymph # (Auto) (1.2-3.4) K/uL [place] # (Auto) (0.11-0.59) K/uL Eos # (Auto) (0-0.5) K/uL Baso # (Auto) (0-0.2) K/uL Sodium (136-145) mmol/L Potassium (3.5-5.1) mmol/L Chloride (98-107) mmol/L Carbon Dioxide (21-32) mmol/L Anion Gap (3-11) BUN (7-18) mg/dl Creatinine (0.6-1.2) mg/dl Est Cr Clr Drug Dosing ml/min Est GFR ( Amer) Est GFR (Non-Af Amer) BUN/Creatinine Ratio (10-20) Glucose (70-99) mg/dl POC Glucose 192 H 114 H 88 (70-99) Calcium (8.5-10.1) mg/dl 06/11/18 06/11/18 06/11/18 Range/Units 14:46 14:34 13:32 WBC (4.8-10.8) K/uL RBC (4.2-5.4) M/uL Hgb (12.0-16.0) g/dL Hct (37-47) % MCV (80-100) fL MCH (25-34) pg MCHC (32-36) g/dL RDW Std Deviation (36.4-46.3) fL RDW Coeff of Jackie (11.5-14.5) % Plt Count (130-400) K/uL MPV (7.4-10.4) fL Immature Gran % (Auto) % Neut % (Auto) % Lymph % (Auto) % [place] % (Auto) % Eos % (Auto) % Baso % (Auto) % Immature Gran # (Auto) (0.00-0.02) K/uL Neut # (Auto) (1.4-6.5) K/uL Lymph # (Auto) (1.2-3.4) K/uL [place] # (Auto) (0.11-0.59) K/uL Eos # (Auto) (0-0.5) K/uL Baso # (Auto) (0-0.2) K/uL Sodium (136-145) mmol/L Potassium (3.5-5.1) mmol/L Chloride (98-107) mmol/L Carbon Dioxide (21-32) mmol/L Anion Gap (3-11) BUN (7-18) mg/dl Creatinine (0.6-1.2) mg/dl Est Cr Clr Drug Dosing ml/min Est GFR ( Amer) Est GFR (Non-Af Amer) BUN/Creatinine Ratio (10-20) Glucose (70-99) mg/dl POC Glucose 68 L* 70 136 H (70-99) Calcium (8.5-10.1) mg/dl 06/11/18 06/11/18 06/11/18 Range/Units 12:25 11:36 10:30 WBC (4.8-10.8) K/uL RBC (4.2-5.4) M/uL Hgb (12.0-16.0) g/dL Hct (37-47) % MCV (80-100) fL MCH (25-34) pg MCHC (32-36) g/dL RDW Std Deviation (36.4-46.3) fL RDW Coeff of Jackie (11.5-14.5) % Plt Count (130-400) K/uL MPV (7.4-10.4) fL Immature Gran % (Auto) % Neut % (Auto) % Lymph % (Auto) % [place] % (Auto) % Eos % (Auto) % Baso % (Auto) % Immature Gran # (Auto) (0.00-0.02) K/uL Neut # (Auto) (1.4-6.5) K/uL Lymph # (Auto) (1.2-3.4) K/uL [place] # (Auto) (0.11-0.59) K/uL Eos # (Auto) (0-0.5) K/uL Baso # (Auto) (0-0.2) K/uL Sodium (136-145) mmol/L Potassium (3.5-5.1) mmol/L Chloride (98-107) mmol/L Carbon Dioxide (21-32) mmol/L Anion Gap (3-11) BUN (7-18) mg/dl Creatinine (0.6-1.2) mg/dl Est Cr Clr Drug Dosing ml/min Est GFR ( Amer) Est GFR (Non-Af Amer) BUN/Creatinine Ratio (10-20) Glucose (70-99) mg/dl POC Glucose 354 H* 366 H* 366 H* (70-99) Calcium (8.5-10.1) mg/dl 06/11/18 06/11/18 06/11/18 Range/Units 09:26 08:30 07:34 WBC (4.8-10.8) K/uL RBC (4.2-5.4) M/uL Hgb (12.0-16.0) g/dL Hct (37-47) % MCV (80-100) fL MCH (25-34) pg MCHC (32-36) g/dL RDW Std Deviation (36.4-46.3) fL RDW Coeff of Jackie (11.5-14.5) % Plt Count (130-400) K/uL MPV (7.4-10.4) fL Immature Gran % (Auto) % Neut % (Auto) % Lymph % (Auto) % [place] % (Auto) % Eos % (Auto) % Baso % (Auto) % Immature Gran # (Auto) (0.00-0.02) K/uL Neut # (Auto) (1.4-6.5) K/uL Lymph # (Auto) (1.2-3.4) K/uL [place] # (Auto) (0.11-0.59) K/uL Eos # (Auto) (0-0.5) K/uL Baso # (Auto) (0-0.2) K/uL Sodium (136-145) mmol/L Potassium (3.5-5.1) mmol/L Chloride (98-107) mmol/L Carbon Dioxide (21-32) mmol/L Anion Gap (3-11) BUN (7-18) mg/dl Creatinine (0.6-1.2) mg/dl Est Cr Clr Drug Dosing ml/min Est GFR ( Amer) Est GFR (Non-Af Amer) BUN/Creatinine Ratio (10-20) Glucose (70-99) mg/dl POC Glucose 300 H 314 H 233 H (70-99) Calcium (8.5-10.1) mg/dl 06/11/18 06/11/18 06/11/18 Range/Units 06:34 06:20 06:20 WBC 5.63 (4.8-10.8) K/uL RBC 3.08 L (4.2-5.4) M/uL Hgb 10.5 L (12.0-16.0) g/dL Hct 31.2 L (37-47) % MCV 101.3 H (80-100) fL MCH 34.1 H (25-34) pg MCHC 33.7 (32-36) g/dL RDW Std Deviation 54.1 H (36.4-46.3) fL RDW Coeff of Jackie 14.6 H (11.5-14.5) % Plt Count 218 (130-400) K/uL MPV 10.3 (7.4-10.4) fL Immature Gran % (Auto) 0.9 % Neut % (Auto) 67.4 % Lymph % (Auto) 22.4 % [place] % (Auto) 6.9 % Eos % (Auto) 2.0 % Baso % (Auto) 0.4 % Immature Gran # (Auto) 0.05 H (0.00-0.02) K/uL Neut # (Auto) 3.80 (1.4-6.5) K/uL Lymph # (Auto) 1.26 (1.2-3.4) K/uL [place] # (Auto) 0.39 (0.11-0.59) K/uL Eos # (Auto) 0.11 (0-0.5) K/uL Baso # (Auto) 0.02 (0-0.2) K/uL Sodium 142 (136-145) mmol/L Potassium 4.1 (3.5-5.1) mmol/L Chloride 107 (98-107) mmol/L Carbon Dioxide 31 (21-32) mmol/L Anion Gap 4.0 (3-11) BUN 16 (7-18) mg/dl Creatinine 0.70 (0.6-1.2) mg/dl Est Cr Clr Drug Dosing 76.9 ml/min Est GFR ( Amer) 114.6 Est GFR (Non-Af Amer) 98.9 BUN/Creatinine Ratio 22.3 H (10-20) Glucose 236 H (70-99) mg/dl POC Glucose 290 H (70-99) Calcium 8.3 L (8.5-10.1) mg/dl 06/11/18 06/11/18 06/11/18 Range/Units 05:33 04:36 03:30 WBC (4.8-10.8) K/uL RBC (4.2-5.4) M/uL Hgb (12.0-16.0) g/dL Hct (37-47) % MCV (80-100) fL MCH (25-34) pg MCHC (32-36) g/dL RDW Std Deviation (36.4-46.3) fL RDW Coeff of Jackie (11.5-14.5) % Plt Count (130-400) K/uL MPV (7.4-10.4) fL Immature Gran % (Auto) % Neut % (Auto) % Lymph % (Auto) % [place] % (Auto) % Eos % (Auto) % Baso % (Auto) % Immature Gran # (Auto) (0.00-0.02) K/uL Neut # (Auto) (1.4-6.5) K/uL Lymph # (Auto) (1.2-3.4) K/uL [place] # (Auto) (0.11-0.59) K/uL Eos # (Auto) (0-0.5) K/uL Baso # (Auto) (0-0.2) K/uL Sodium (136-145) mmol/L Potassium (3.5-5.1) mmol/L Chloride (98-107) mmol/L Carbon Dioxide (21-32) mmol/L Anion Gap (3-11) BUN (7-18) mg/dl Creatinine (0.6-1.2) mg/dl Est Cr Clr Drug Dosing ml/min Est GFR ( Amer) Est GFR (Non-Af Amer) BUN/Creatinine Ratio (10-20) Glucose (70-99) mg/dl POC Glucose 228 H 220 H 151 H (70-99) Calcium (8.5-10.1) mg/dl 06/11/18 06/11/18 06/11/18 Range/Units 02:33 02:01 01:41 WBC (4.8-10.8) K/uL RBC (4.2-5.4) M/uL Hgb (12.0-16.0) g/dL Hct (37-47) % MCV (80-100) fL MCH (25-34) pg MCHC (32-36) g/dL RDW Std Deviation (36.4-46.3) fL RDW Coeff of Jackie (11.5-14.5) % Plt Count (130-400) K/uL MPV (7.4-10.4) fL Immature Gran % (Auto) % Neut % (Auto) % Lymph % (Auto) % [place] % (Auto) % Eos % (Auto) % Baso % (Auto) % Immature Gran # (Auto) (0.00-0.02) K/uL Neut # (Auto) (1.4-6.5) K/uL Lymph # (Auto) (1.2-3.4) K/uL [place] # (Auto) (0.11-0.59) K/uL Eos # (Auto) (0-0.5) K/uL Baso # (Auto) (0-0.2) K/uL Sodium (136-145) mmol/L Potassium (3.5-5.1) mmol/L Chloride (98-107) mmol/L Carbon Dioxide (21-32) mmol/L Anion Gap (3-11) BUN (7-18) mg/dl Creatinine (0.6-1.2) mg/dl Est Cr Clr Drug Dosing ml/min Est GFR ( Amer) Est GFR (Non-Af Amer) BUN/Creatinine Ratio (10-20) Glucose (70-99) mg/dl POC Glucose 110 H 78 79 (70-99) Calcium (8.5-10.1) mg/dl 06/11/18 06/11/18 06/11/18 Range/Units 01:23 01:01 00:02 WBC (4.8-10.8) K/uL RBC (4.2-5.4) M/uL Hgb (12.0-16.0) g/dL Hct (37-47) % MCV (80-100) fL MCH (25-34) pg MCHC (32-36) g/dL RDW Std Deviation (36.4-46.3) fL RDW Coeff of Jackie (11.5-14.5) % Plt Count (130-400) K/uL MPV (7.4-10.4) fL Immature Gran % (Auto) % Neut % (Auto) % Lymph % (Auto) % [place] % (Auto) % Eos % (Auto) % Baso % (Auto) % Immature Gran # (Auto) (0.00-0.02) K/uL Neut # (Auto) (1.4-6.5) K/uL Lymph # (Auto) (1.2-3.4) K/uL [place] # (Auto) (0.11-0.59) K/uL Eos # (Auto) (0-0.5) K/uL Baso # (Auto) (0-0.2) K/uL Sodium (136-145) mmol/L Potassium (3.5-5.1) mmol/L Chloride (98-107) mmol/L Carbon Dioxide (21-32) mmol/L Anion Gap (3-11) BUN (7-18) mg/dl Creatinine (0.6-1.2) mg/dl Est Cr Clr Drug Dosing ml/min Est GFR ( Amer) Est GFR (Non-Af Amer) BUN/Creatinine Ratio (10-20) Glucose (70-99) mg/dl POC Glucose 78 83 167 H (70-99) Calcium (8.5-10.1) mg/dl 06/10/18 Range/Units 23:04 WBC (4.8-10.8) K/uL RBC (4.2-5.4) M/uL Hgb (12.0-16.0) g/dL Hct (37-47) % MCV (80-100) fL MCH (25-34) pg MCHC (32-36) g/dL RDW Std Deviation (36.4-46.3) fL RDW Coeff of Jackie (11.5-14.5) % Plt Count (130-400) K/uL MPV (7.4-10.4) fL Immature Gran % (Auto) % Neut % (Auto) % Lymph % (Auto) % [place] % (Auto) % Eos % (Auto) % Baso % (Auto) % Immature Gran # (Auto) (0.00-0.02) K/uL Neut # (Auto) (1.4-6.5) K/uL Lymph # (Auto) (1.2-3.4) K/uL [place] # (Auto) (0.11-0.59) K/uL Eos # (Auto) (0-0.5) K/uL Baso # (Auto) (0-0.2) K/uL Sodium (136-145) mmol/L Potassium (3.5-5.1) mmol/L Chloride (98-107) mmol/L Carbon Dioxide (21-32) mmol/L Anion Gap (3-11) BUN (7-18) mg/dl Creatinine (0.6-1.2) mg/dl Est Cr Clr Drug Dosing ml/min Est GFR ( Amer) Est GFR (Non-Af Amer) BUN/Creatinine Ratio (10-20) Glucose (70-99) mg/dl POC Glucose 190 H (70-99) Calcium (8.5-10.1) mg/dl
[2018-06-11] MEDS: FEXOFENADINE HCL 180 MG TAB PO SCH (21:16)
[2018-06-11] MEDS: MONTELUKAST SODIUM 10 MG TABLET PO SCH (21:17)
[2018-06-11] MEDS: [UNRECOGNIZED DRUG - REMARK] SCH (23:00)
[2018-06-11] MEDS: ONDANSETRON INJ 2 MG/ML 2 ML VIAL IV PRN (23:30)
[2018-06-12] MEDS: HEPARIN SOD 5,000 UNIT/0.5 ML VIAL SQ SCH ×3 (06:39→20:24)
[2018-06-12] MEDS: LEVOTHYROXINE SODIUM 150 MCG TABLET PO SCH (06:39)
[2018-06-12] MEDS: ONDANSETRON INJ 2 MG/ML 2 ML VIAL IV PRN (07:04)
[2018-06-12] MEDS ORDERED: PROMETHAZINE HCL 12.5 MG in SODIUM CHLORIDE 0.9% 50 ML IV PRN (08:36)
[2018-06-12] MEDS ORDERED: ACETAMINOPHEN 1,000 MG/100 ML VIAL IV PRN (08:36)
[2018-06-12] MEDS ORDERED: SODIUM CHLORIDE 0.9% 1000ML 1,000 ML IV ONE (08:41)
[2018-06-12] MEDS: CITALOPRAM 40 MG TAB PO SCH (08:48)
[2018-06-12] MEDS: ERTAPENEM SODIUM 1,000 MG in SODIUM CHLORIDE 0.9% 50 ML IV SCH (08:50)
[2018-06-12] MEDS: INSULIN ASPART 100 UNITS/ML 3 ML PEN SC SCH ×4 (08:51→20:24)
--- NOTE | 2018-06-12 09:04 | XRay Report ---
XR chest 1V portable HISTORY: 52 years-old Female fever, cough acute cough with fever COMPARISON: Chest radiograph 06/08/2018 TECHNIQUE: Portable AP view the chest FINDINGS: Cardiac silhouette is enlarged, unchanged. Tracheostomy cannula overlies the midline. Stable position ing of the right internal jugular [id number] catheter. No pneumothorax. Persistent patchy bibasila r opacities are noted with suggestion of trace pleural effusions. No overt pulmonary edema. Degenerat anita changes of the shoulders and spine. IMPRESSION: Continued patchy bibasilar opacities are noted suggestive of atelectasis or pneumonitis. Correlate clinically. The above report was generated using voice recognition software. It may contain grammatical, syntax o r spelling errors. Electronically signed by: Trung Betts M.D. 06/12/2018 9:03 AM
[2018-06-12] MEDS: ACETAMINOPHEN 325 MG TAB PO PRN (09:53)
[2018-06-12 09:58] LABS: Basophils # (auto) 0.01 K/uL (0-0.2); Basophils % (auto) 0.1 %; Eosinophils # (auto) 0.05 K/uL (0-0.5); Eosinophils % (auto) 0.5 %; Hematocrit (blood only) 35.9 % (37-47); Hemoglobin 11.6 g/dL (12.0-16.0); Immature Granulocytes # (auto) 0.02 K/uL (0.00-0.02); Immature Granulocytes % (auto) 0.2 %; Lymphocytes # (auto) 0.31 K/uL (1.2-3.4); Lymphocytes % (auto) 2.8 %; Mean Corpuscular Hgb Conc 32.3 g/dL (32-36); Mean Corpuscular Volume 101.7 fL (80-100); Mean Platelet Volume 10.4 fL (7.4-10.4); Monocytes % (auto) 1.8 %; Neutrophils # (auto) 10.42 K/uL (1.4-6.5); Neutrophils % (auto) 94.6 %; Platelet Count 244 K/uL (130-400); RDW Coefficient of Variation 14.8 % (11.5-14.5); RDW Standard Deviation 54.6 fL (36.4-46.3); Red Blood Count 3.53 M/uL (4.2-5.4); White Blood Count 11.01 K/uL (4.8-10.8)
[2018-06-12] MEDS: ACETYLCYSTEINE 20% INHAL SOLN ***DISPENSED BY RESP. INH SCH ×2 (10:13→19:23)
[2018-06-12 10:28] LABS: Albumin Level 2.4 gm/dl (3.4-5.0); BUN Creatinine Ratio 15.4 (10-20); Calcium 8.5 mg/dl (8.5-10.1); Creatinine Clr Calc Pharmacy 52.9 ml/min; Est GFR (African American) 72.7; Est GFR (Non-African American) 62.8; Potassium 4.3 mmol/L (3.5-5.1)
[2018-06-12 10:30] LABS: Albumin Globulin Ratio 0.5 (0.9-2); Bilirubin,Total 0.3 mg/dl (0.2-1); Globulin 4.4 gm/dl (2.5-4.0); Total Protein 6.8 gm/dl (6.4-8.2)
--- NOTE | 2018-06-12 10:34 | Hospitalist Progress Note ---
Date of Service June 12, 2018 Assessment & Plan (1) Fever: New fever again on AM of 06/12, with N/V/D COuld be C. diff colitis with ileus? CXR unchanged and no new pulm complaints or signs No abd pain -check C. diff in stool -check KUB -bolus NS 1L x 1 now -check lactate, CMP, CBC, PCT -repeat BCxs (2) Nausea vomiting and diarrhea: -make clears diet as romeila -IVFs -antiemetics with zofran, phenergan checking for C. diff as above (3) HCAP (healthcare-associated pneumonia): With a history of recurrent admissions for pneumonia related to tracheostomy and aspiration was here in late March/early April and transferred to [facility] for "second opinion" as per Mom-Pulm there also thought recurrent aspiration PNAs CXR with increased bibasilar infiltrates, Leukocytosis with left shift, low grade temperature, increased sputum production that smelled foul Improved clinically now from Pulm standpoint, but with new fever as below Sputum cx with ESBL E. coli again BCxs NGTD -received Zerbaxax 3 days, then changed to IV ertapenem on 06/11 based on sensitivities--> ID recommends 10 days total-today day#5 overall -ID consult appreciated -continue tracheostomy care -continue on Mucomyst, Duoneb (4) SOM (acute kidney injury): Cr up to 1.5 on admission likely due to infection, dehydration Treated with IVFs and now returned to normal hold nephrotoxins (5) Hyperglycemia: type I diabetic on pump Hyperglycemia remains and then with some borderline hypoglycemia at times--> very brittle diabetic -continue to treat with insulin drip and transition to pump prior to discharge -continue Pharmacy glycemic management (6) Anemia of chronic disease: Hb is at baseline, macrocytic will follow (7) Down syndrome: supportive care (8) Type 1 diabetes: see above, here with hyperglycemia HCO3 normal, no signs of DKA (9) Hypoxia: mild hypoxia, requiring 2L via tracheostomy, is on 4L at home continuous continue to treat PNA Duoneb PRN (10) Hypothyroidism: continue LT4 home dose (11) CAMILLA (obstructive sleep apnea): continue on hs O2 (12) Depression: continue home celexa (13) UTI (urinary tract infection): UTI- simple cystitis, with E. coli also resistant to multiple abx -Zerbaxa covering and so will ertapenem (14) DVT prophylaxis: Heparin SC Dispo-remain on tele, now with new fever, will continue stay Subjective Developed N/V and diarrhea overnight multiple episides. Then spiked a fever this AM, more lethargic. Caregiver reports tracheostomy was with thick sputum this AM. Pt denies abd pain currently, is resting. Tele with NSR and ST rates 80s-low 100s Review of Systems All systems reviewed & are unremarkable except as noted in HPI & below Physical Exam Vital Signs (Past 24 Hours): Last Vital Signs Temp 38.6 C H 06/12/18 08:37 Pulse 98 H 06/12/18 09:44 Resp 16 06/12/18 07:31 BP 102/58 L 06/12/18 07:31 Pulse Ox 92 06/12/18 07:31 Constitutional: no acute distress (dysmorphic features) Eyes: PERRL, conjunctivae normal, anicteric sclerae ENMT: Mouth: + dry oral mucous membranes Neck: + abnormal visual inspection (tracheostomy tube in place) Respiratory: normal respiratory effort Auscultation: + crackles (at bases bilat) and + wheezes (a few inspiratory and exp wheezes, no crackles or rhonchi) Cardiovascular: RRR, no murmur, no edema Gastrointestinal (Abdomen): normal bowel sounds, soft, nontender, no hepatosplenomegaly Musculoskeletal: Extremities: extremities normal to inspection; no cyanosis and no clubbing Skin: no rashes, warm and dry Neurologic: moves all extremities and awake; no focal motor deficits Psychiatric: Orientation: alert and cooperative Results & Data Laboratory Results 06/12/18 06/12/18 06/12/18 Range/Units 10:04 09:40 09:16 WBC (4.8-10.8) K/uL RBC (4.2-5.4) M/uL Hgb (12.0-16.0) g/dL Hct (37-47) % MCV (80-100) fL MCH (25-34) pg MCHC (32-36) g/dL RDW Std Deviation (36.4-46.3) fL RDW Coeff of Jackie (11.5-14.5) % Plt Count (130-400) K/uL MPV (7.4-10.4) fL Immature Gran % (Auto) % Neut % (Auto) % Lymph % (Auto) % [place] % (Auto) % Eos % (Auto) % Baso % (Auto) % Immature Gran # (Auto) (0.00-0.02) K/uL Neut # (Auto) (1.4-6.5) K/uL Lymph # (Auto) (1.2-3.4) K/uL [place] # (Auto) (0.11-0.59) K/uL Eos # (Auto) (0-0.5) K/uL Baso # (Auto) (0-0.2) K/uL Sodium (136-145) mmol/L Potassium (3.5-5.1) mmol/L Chloride (98-107) mmol/L Carbon Dioxide (21-32) mmol/L Anion Gap (3-11) BUN (7-18) mg/dl Creatinine (0.6-1.2) mg/dl Est Cr Clr Drug Dosing ml/min Est GFR ( Amer) Est GFR (Non-Af Amer) BUN/Creatinine Ratio (10-20) Glucose (70-99) mg/dl POC Glucose 188 H (70-99) Lactate 2.3 H* (0.4-2.0) mmol/L Calcium (8.5-10.1) mg/dl Total Bilirubin (0.2-1) mg/dl AST (15-37) U/L ALT (12-78) U/L Alkaline Phosphatase (45-117) U/L Total Protein (6.4-8.2) gm/dl Albumin (3.4-5.0) gm/dl Globulin (2.5-4.0) gm/dl Albumin/Globulin Ratio (0.9-2) Procalcitonin Pending 06/12/18 06/12/18 06/12/18 Range/Units 09:16 09:16 09:07 WBC 11.01 H (4.8-10.8) K/uL RBC 3.53 L (4.2-5.4) M/uL Hgb 11.6 L (12.0-16.0) g/dL Hct 35.9 L (37-47) % MCV 101.7 H (80-100) fL MCH 32.9 (25-34) pg MCHC 32.3 (32-36) g/dL RDW Std Deviation 54.6 H (36.4-46.3) fL RDW Coeff of Jackie 14.8 H (11.5-14.5) % Plt Count 244 (130-400) K/uL MPV 10.4 (7.4-10.4) fL Immature Gran % (Auto) 0.2 % Neut % (Auto) 94.6 % Lymph % (Auto) 2.8 % [place] % (Auto) 1.8 % Eos % (Auto) 0.5 % Baso % (Auto) 0.1 % Immature Gran # (Auto) 0.02 (0.00-0.02) K/uL Neut # (Auto) 10.42 H (1.4-6.5) K/uL Lymph # (Auto) 0.31 L (1.2-3.4) K/uL [place] # (Auto) 0.20 (0.11-0.59) K/uL Eos # (Auto) 0.05 (0-0.5) K/uL Baso # (Auto) 0.01 (0-0.2) K/uL Sodium 140 (136-145) mmol/L Potassium 4.3 (3.5-5.1) mmol/L Chloride 106 (98-107) mmol/L Carbon Dioxide 31 (21-32) mmol/L Anion Gap 3.0 (3-11) BUN 16 (7-18) mg/dl Creatinine 1.02 (0.6-1.2) mg/dl Est Cr Clr Drug Dosing 52.9 ml/min Est GFR ( Amer) 72.7 Est GFR (Non-Af Amer) 62.8 BUN/Creatinine Ratio 15.4 (10-20) Glucose 208 H (70-99) mg/dl POC Glucose 207 H (70-99) Lactate (0.4-2.0) mmol/L Calcium 8.5 (8.5-10.1) mg/dl Total Bilirubin 0.3 (0.2-1) mg/dl AST 17 (15-37) U/L ALT 46 (12-78) U/L Alkaline Phosphatase 147 H (45-117) U/L Total Protein 6.8 (6.4-8.2) gm/dl Albumin 2.4 L (3.4-5.0) gm/dl Globulin 4.4 H (2.5-4.0) gm/dl Albumin/Globulin Ratio 0.5 L (0.9-2) Procalcitonin 06/12/18 06/12/18 06/12/18 Range/Units 08:09 06:56 05:51 WBC (4.8-10.8) K/uL RBC (4.2-5.4) M/uL Hgb (12.0-16.0) g/dL Hct (37-47) % MCV (80-100) fL MCH (25-34) pg MCHC (32-36) g/dL RDW Std Deviation (36.4-46.3) fL RDW Coeff of Jackie (11.5-14.5) % Plt Count (130-400) K/uL MPV (7.4-10.4) fL Immature Gran % (Auto) % Neut % (Auto) % Lymph % (Auto) % [place] % (Auto) % Eos % (Auto) % Baso % (Auto) % Immature Gran # (Auto) (0.00-0.02) K/uL Neut # (Auto) (1.4-6.5) K/uL Lymph # (Auto) (1.2-3.4) K/uL [place] # (Auto) (0.11-0.59) K/uL Eos # (Auto) (0-0.5) K/uL Baso # (Auto) (0-0.2) K/uL Sodium (136-145) mmol/L Potassium (3.5-5.1) mmol/L Chloride (98-107) mmol/L Carbon Dioxide (21-32) mmol/L Anion Gap (3-11) BUN (7-18) mg/dl Creatinine (0.6-1.2) mg/dl Est Cr Clr Drug Dosing ml/min Est GFR ( Amer) Est GFR (Non-Af Amer) BUN/Creatinine Ratio (10-20) Glucose (70-99) mg/dl POC Glucose 217 H 221 H 249 H (70-99) Lactate (0.4-2.0) mmol/L Calcium (8.5-10.1) mg/dl Total Bilirubin (0.2-1) mg/dl AST (15-37) U/L ALT (12-78) U/L Alkaline Phosphatase (45-117) U/L Total Protein (6.4-8.2) gm/dl Albumin (3.4-5.0) gm/dl Globulin (2.5-4.0) gm/dl Albumin/Globulin Ratio (0.9-2) Procalcitonin 06/12/18 06/12/18 06/12/18 Range/Units 04:47 03:49 02:32 WBC (4.8-10.8) K/uL RBC (4.2-5.4) M/uL Hgb (12.0-16.0) g/dL Hct (37-47) % MCV (80-100) fL MCH (25-34) pg MCHC (32-36) g/dL RDW Std Deviation (36.4-46.3) fL RDW Coeff of Jackie (11.5-14.5) % Plt Count (130-400) K/uL MPV (7.4-10.4) fL Immature Gran % (Auto) % Neut % (Auto) % Lymph % (Auto) % [place] % (Auto) % Eos % (Auto) % Baso % (Auto) % Immature Gran # (Auto) (0.00-0.02) K/uL Neut # (Auto) (1.4-6.5) K/uL Lymph # (Auto) (1.2-3.4) K/uL [place] # (Auto) (0.11-0.59) K/uL Eos # (Auto) (0-0.5) K/uL Baso # (Auto) (0-0.2) K/uL Sodium (136-145) mmol/L Potassium (3.5-5.1) mmol/L Chloride (98-107) mmol/L Carbon Dioxide (21-32) mmol/L Anion Gap (3-11) BUN (7-18) mg/dl Creatinine (0.6-1.2) mg/dl Est Cr Clr Drug Dosing ml/min Est GFR ( Amer) Est GFR (Non-Af Amer) BUN/Creatinine Ratio (10-20) Glucose (70-99) mg/dl POC Glucose 219 H 265 H 238 H (70-99) Lactate (0.4-2.0) mmol/L Calcium (8.5-10.1) mg/dl Total Bilirubin (0.2-1) mg/dl AST (15-37) U/L ALT (12-78) U/L Alkaline Phosphatase (45-117) U/L Total Protein (6.4-8.2) gm/dl Albumin (3.4-5.0) gm/dl Globulin (2.5-4.0) gm/dl Albumin/Globulin Ratio (0.9-2) Procalcitonin 06/12/18 06/12/18 06/11/18 Range/Units 01:29 00:30 23:32 WBC (4.8-10.8) K/uL RBC (4.2-5.4) M/uL Hgb (12.0-16.0) g/dL Hct (37-47) % MCV (80-100) fL MCH (25-34) pg MCHC (32-36) g/dL RDW Std Deviation (36.4-46.3) fL RDW Coeff of Jackie (11.5-14.5) % Plt Count (130-400) K/uL MPV (7.4-10.4) fL Immature Gran % (Auto) % Neut % (Auto) % Lymph % (Auto) % [place] % (Auto) % Eos % (Auto) % Baso % (Auto) % Immature Gran # (Auto) (0.00-0.02) K/uL Neut # (Auto) (1.4-6.5) K/uL Lymph # (Auto) (1.2-3.4) K/uL [place] # (Auto) (0.11-0.59) K/uL Eos # (Auto) (0-0.5) K/uL Baso # (Auto) (0-0.2) K/uL Sodium (136-145) mmol/L Potassium (3.5-5.1) mmol/L Chloride (98-107) mmol/L Carbon Dioxide (21-32) mmol/L Anion Gap (3-11) BUN (7-18) mg/dl Creatinine (0.6-1.2) mg/dl Est Cr Clr Drug Dosing ml/min Est GFR ( Amer) Est GFR (Non-Af Amer) BUN/Creatinine Ratio (10-20) Glucose (70-99) mg/dl POC Glucose 296 H 197 H 151 H (70-99) Lactate (0.4-2.0) mmol/L Calcium (8.5-10.1) mg/dl Total Bilirubin (0.2-1) mg/dl AST (15-37) U/L ALT (12-78) U/L Alkaline Phosphatase (45-117) U/L Total Protein (6.4-8.2) gm/dl Albumin (3.4-5.0) gm/dl Globulin (2.5-4.0) gm/dl Albumin/Globulin Ratio (0.9-2) Procalcitonin 06/11/18 06/11/18 06/11/18 Range/Units 21:59 21:10 19:56 WBC (4.8-10.8) K/uL RBC (4.2-5.4) M/uL Hgb (12.0-16.0) g/dL Hct (37-47) % MCV (80-100) fL MCH (25-34) pg MCHC (32-36) g/dL RDW Std Deviation (36.4-46.3) fL RDW Coeff of Jackie (11.5-14.5) % Plt Count (130-400) K/uL MPV (7.4-10.4) fL Immature Gran % (Auto) % Neut % (Auto) % Lymph % (Auto) % [place] % (Auto) % Eos % (Auto) % Baso % (Auto) % Immature Gran # (Auto) (0.00-0.02) K/uL Neut # (Auto) (1.4-6.5) K/uL Lymph # (Auto) (1.2-3.4) K/uL [place] # (Auto) (0.11-0.59) K/uL Eos # (Auto) (0-0.5) K/uL Baso # (Auto) (0-0.2) K/uL Sodium (136-145) mmol/L Potassium (3.5-5.1) mmol/L Chloride (98-107) mmol/L Carbon Dioxide (21-32) mmol/L Anion Gap (3-11) BUN (7-18) mg/dl Creatinine (0.6-1.2) mg/dl Est Cr Clr Drug Dosing ml/min Est GFR ( Amer) Est GFR (Non-Af Amer) BUN/Creatinine Ratio (10-20) Glucose (70-99) mg/dl POC Glucose 174 H 270 H 236 H (70-99) Lactate (0.4-2.0) mmol/L Calcium (8.5-10.1) mg/dl Total Bilirubin (0.2-1) mg/dl AST (15-37) U/L ALT (12-78) U/L Alkaline Phosphatase (45-117) U/L Total Protein (6.4-8.2) gm/dl Albumin (3.4-5.0) gm/dl Globulin (2.5-4.0) gm/dl Albumin/Globulin Ratio (0.9-2) Procalcitonin 06/11/18 06/11/18 06/11/18 Range/Units 19:00 18:03 17:08 WBC (4.8-10.8) K/uL RBC (4.2-5.4) M/uL Hgb (12.0-16.0) g/dL Hct (37-47) % MCV (80-100) fL MCH (25-34) pg MCHC (32-36) g/dL RDW Std Deviation (36.4-46.3) fL RDW Coeff of Jackie (11.5-14.5) % Plt Count (130-400) K/uL MPV (7.4-10.4) fL Immature Gran % (Auto) % Neut % (Auto) % Lymph % (Auto) % [place] % (Auto) % Eos % (Auto) % Baso % (Auto) % Immature Gran # (Auto) (0.00-0.02) K/uL Neut # (Auto) (1.4-6.5) K/uL Lymph # (Auto) (1.2-3.4) K/uL [place] # (Auto) (0.11-0.59) K/uL Eos # (Auto) (0-0.5) K/uL Baso # (Auto) (0-0.2) K/uL Sodium (136-145) mmol/L Potassium (3.5-5.1) mmol/L Chloride (98-107) mmol/L Carbon Dioxide (21-32) mmol/L Anion Gap (3-11) BUN (7-18) mg/dl Creatinine (0.6-1.2) mg/dl Est Cr Clr Drug Dosing ml/min Est GFR ( Amer) Est GFR (Non-Af Amer) BUN/Creatinine Ratio (10-20) Glucose (70-99) mg/dl POC Glucose 304 H 298 H 242 H (70-99) Lactate (0.4-2.0) mmol/L Calcium (8.5-10.1) mg/dl Total Bilirubin (0.2-1) mg/dl AST (15-37) U/L ALT (12-78) U/L Alkaline Phosphatase (45-117) U/L Total Protein (6.4-8.2) gm/dl Albumin (3.4-5.0) gm/dl Globulin (2.5-4.0) gm/dl Albumin/Globulin Ratio (0.9-2) Procalcitonin 06/11/18 06/11/18 06/11/18 Range/Units 16:02 15:18 15:00 WBC (4.8-10.8) K/uL RBC (4.2-5.4) M/uL Hgb (12.0-16.0) g/dL Hct (37-47) % MCV (80-100) fL MCH (25-34) pg MCHC (32-36) g/dL RDW Std Deviation (36.4-46.3) fL RDW Coeff of Jackie (11.5-14.5) % Plt Count (130-400) K/uL MPV (7.4-10.4) fL Immature Gran % (Auto) % Neut % (Auto) % Lymph % (Auto) % [place] % (Auto) % Eos % (Auto) % Baso % (Auto) % Immature Gran # (Auto) (0.00-0.02) K/uL Neut # (Auto) (1.4-6.5) K/uL Lymph # (Auto) (1.2-3.4) K/uL [place] # (Auto) (0.11-0.59) K/uL Eos # (Auto) (0-0.5) K/uL Baso # (Auto) (0-0.2) K/uL Sodium (136-145) mmol/L Potassium (3.5-5.1) mmol/L Chloride (98-107) mmol/L Carbon Dioxide (21-32) mmol/L Anion Gap (3-11) BUN (7-18) mg/dl Creatinine (0.6-1.2) mg/dl Est Cr Clr Drug Dosing ml/min Est GFR ( Amer) Est GFR (Non-Af Amer) BUN/Creatinine Ratio (10-20) Glucose (70-99) mg/dl POC Glucose 192 H 114 H 88 (70-99) Lactate (0.4-2.0) mmol/L Calcium (8.5-10.1) mg/dl Total Bilirubin (0.2-1) mg/dl AST (15-37) U/L ALT (12-78) U/L Alkaline Phosphatase (45-117) U/L Total Protein (6.4-8.2) gm/dl Albumin (3.4-5.0) gm/dl Globulin (2.5-4.0) gm/dl Albumin/Globulin Ratio (0.9-2) Procalcitonin 06/11/18 06/11/18 06/11/18 Range/Units 14:46 14:34 13:32 WBC (4.8-10.8) K/uL RBC (4.2-5.4) M/uL Hgb (12.0-16.0) g/dL Hct (37-47) % MCV (80-100) fL MCH (25-34) pg MCHC (32-36) g/dL RDW Std Deviation (36.4-46.3) fL RDW Coeff of Jackie (11.5-14.5) % Plt Count (130-400) K/uL MPV (7.4-10.4) fL Immature Gran % (Auto) % Neut % (Auto) % Lymph % (Auto) % [place] % (Auto) % Eos % (Auto) % Baso % (Auto) % Immature Gran # (Auto) (0.00-0.02) K/uL Neut # (Auto) (1.4-6.5) K/uL Lymph # (Auto) (1.2-3.4) K/uL [place] # (Auto) (0.11-0.59) K/uL Eos # (Auto) (0-0.5) K/uL Baso # (Auto) (0-0.2) K/uL Sodium (136-145) mmol/L Potassium (3.5-5.1) mmol/L Chloride (98-107) mmol/L Carbon Dioxide (21-32) mmol/L Anion Gap (3-11) BUN (7-18) mg/dl Creatinine (0.6-1.2) mg/dl Est Cr Clr Drug Dosing ml/min Est GFR ( Amer) Est GFR (Non-Af Amer) BUN/Creatinine Ratio (10-20) Glucose (70-99) mg/dl POC Glucose 68 L* 70 136 H (70-99) Lactate (0.4-2.0) mmol/L Calcium (8.5-10.1) mg/dl Total Bilirubin (0.2-1) mg/dl AST (15-37) U/L ALT (12-78) U/L Alkaline Phosphatase (45-117) U/L Total Protein (6.4-8.2) gm/dl Albumin (3.4-5.0) gm/dl Globulin (2.5-4.0) gm/dl Albumin/Globulin Ratio (0.9-2) Procalcitonin 06/11/18 06/11/18 06/11/18 Range/Units 12:25 11:36 10:30 WBC (4.8-10.8) K/uL RBC (4.2-5.4) M/uL Hgb (12.0-16.0) g/dL Hct (37-47) % MCV (80-100) fL MCH (25-34) pg MCHC (32-36) g/dL RDW Std Deviation (36.4-46.3) fL RDW Coeff of Jackie (11.5-14.5) % Plt Count (130-400) K/uL MPV (7.4-10.4) fL Immature Gran % (Auto) % Neut % (Auto) % Lymph % (Auto) % [place] % (Auto) % Eos % (Auto) % Baso % (Auto) % Immature Gran # (Auto) (0.00-0.02) K/uL Neut # (Auto) (1.4-6.5) K/uL Lymph # (Auto) (1.2-3.4) K/uL [place] # (Auto) (0.11-0.59) K/uL Eos # (Auto) (0-0.5) K/uL Baso # (Auto) (0-0.2) K/uL Sodium (136-145) mmol/L Potassium (3.5-5.1) mmol/L Chloride (98-107) mmol/L Carbon Dioxide (21-32) mmol/L Anion Gap (3-11) BUN (7-18) mg/dl Creatinine (0.6-1.2) mg/dl Est Cr Clr Drug Dosing ml/min Est GFR ( Amer) Est GFR (Non-Af Amer) BUN/Creatinine Ratio (10-20) Glucose (70-99) mg/dl POC Glucose 354 H* 366 H* 366 H* (70-99) Lactate (0.4-2.0) mmol/L Calcium (8.5-10.1) mg/dl Total Bilirubin (0.2-1) mg/dl AST (15-37) U/L ALT (12-78) U/L Alkaline Phosphatase (45-117) U/L Total Protein (6.4-8.2) gm/dl Albumin (3.4-5.0) gm/dl Globulin (2.5-4.0) gm/dl Albumin/Globulin Ratio (0.9-2) Procalcitonin 06/11/18 06/11/18 06/11/18 Range/Units 09:26 08:30 07:34 WBC (4.8-10.8) K/uL RBC (4.2-5.4) M/uL Hgb (12.0-16.0) g/dL Hct (37-47) % MCV (80-100) fL MCH (25-34) pg MCHC (32-36) g/dL RDW Std Deviation (36.4-46.3) fL RDW Coeff of Jackie (11.5-14.5) % Plt Count (130-400) K/uL MPV (7.4-10.4) fL Immature Gran % (Auto) % Neut % (Auto) % Lymph % (Auto) % [place] % (Auto) % Eos % (Auto) % Baso % (Auto) % Immature Gran # (Auto) (0.00-0.02) K/uL Neut # (Auto) (1.4-6.5) K/uL Lymph # (Auto) (1.2-3.4) K/uL [place] # (Auto) (0.11-0.59) K/uL Eos # (Auto) (0-0.5) K/uL Baso # (Auto) (0-0.2) K/uL Sodium (136-145) mmol/L Potassium (3.5-5.1) mmol/L Chloride (98-107) mmol/L Carbon Dioxide (21-32) mmol/L Anion Gap (3-11) BUN (7-18) mg/dl Creatinine (0.6-1.2) mg/dl Est Cr Clr Drug Dosing ml/min Est GFR ( Amer) Est GFR (Non-Af Amer) BUN/Creatinine Ratio (10-20) Glucose (70-99) mg/dl POC Glucose 300 H 314 H 233 H (70-99) Lactate (0.4-2.0) mmol/L Calcium (8.5-10.1) mg/dl Total Bilirubin (0.2-1) mg/dl AST (15-37) U/L ALT (12-78) U/L Alkaline Phosphatase (45-117) U/L Total Protein (6.4-8.2) gm/dl Albumin (3.4-5.0) gm/dl Globulin (2.5-4.0) gm/dl Albumin/Globulin Ratio (0.9-2) Procalcitonin Diagnostic Findings CXR personally reviewed and shows stable bibasilar opacities and small pleural effusion right
--- NOTE | 2018-06-12 10:55 | XRay Report ---
K[facility] HISTORY: Acute nausea and vomiting nausea,vomiting COMPARISON: [facility] 04/21/2018. FINDINGS: The bowel gas pattern is non-obstructive. There is no organomegaly. Multiple pelvic basin c alcifications are suggestive of probable phleboliths. No renal calculi. No ureteral calculi. No pneum operitoneum or pneumatosis. Degenerative changes of the hips, pelvis and spine. Mild soft tissue prom inence noted about the left proximal thigh. No fracture. IMPRESSION: Nonobstructive bowel gas pattern. Electronically signed by: Trung Betts M.D. 06/12/2018 10:54 AM
--- NOTE | 2018-06-12 14:47 | Pharmacy Report ---
Pharmacy Glycemic Short Note 2 - Date of Service June 12, 2018 - Glycemic Short BSG Results (Last 24 hours): 06/11/18 06/11/18 06/11/18 14:34 14:46 15:00 Glucose POC Glucose 70 68 L* 88 06/11/18 06/11/18 06/11/18 15:18 16:02 17:08 Glucose POC Glucose 114 H 192 H 242 H 06/11/18 06/11/18 06/11/18 18:03 19:00 19:56 Glucose POC Glucose 298 H 304 H 236 H 06/11/18 06/11/18 06/11/18 21:10 21:59 23:32 Glucose POC Glucose 270 H 174 H 151 H 06/12/18 06/12/18 06/12/18 00:30 01:29 02:32 Glucose POC Glucose 197 H 296 H 238 H 06/12/18 06/12/18 06/12/18 03:49 04:47 05:51 Glucose POC Glucose 265 H 219 H 249 H 06/12/18 06/12/18 06/12/18 06:56 08:09 09:07 Glucose POC Glucose 221 H 217 H 207 H 06/12/18 06/12/18 06/12/18 09:16 10:04 11:13 Glucose 208 H POC Glucose 188 H 219 H 06/12/18 12:04 Glucose POC Glucose 283 H OUTPATIENT ANTIDIABETIC REGIMEN: * Novolog insulin pump: * 0000 - 0300: 0.7 units/hr * 0300 - 0600: 0.4 units/hr * 0600 - 0900: 0.7 units/hr * 0900 - 1800: 0.9 units/hr * 1800 - 0000: 0.7 units/hr * HbA1c: 10% (06/04/18) ASSESSMENT: 06/12 * Patient remains on insulin drip, did have hypoglycemic event yesterday (68), decreased carb ratio * Drip rate cut to 0.6 unit/hr at 2300 per order to avoid q15 m checks for dropping overnight, patient did not go low overnight although BSGs elevated in the morning- could consider increasing rate again at certain time if trend continues. 06/11 * Ms Early remains on an insulin drip for admission while she is unable to use her insulin pump. * Patient's insulin needs are reduced overnight and the drip rate has required reduction the past two nights. During these times when BSGs drop and insulin infusion rate is reduced, accu-checks are required q15m. In an effort to minimize the need for these frequent overnight fingersticks, have scheduled a reduction in the drip rate each evening. Drip may then be up-titrated as needed, but this will hopefully be less intrusive to patient overnight. This will more closely mimic the changes in patient's insulin pump each night. PLAN FOR INPATIENT GLYCEMIC CONTROL: * Continue insulin drip with adjustments per Insulin Infusion Adjustment Calculator * Daily at 2300, reduce gtt rate to 0.6 units/hr * Then, titration per calculator * Bolus insulin * NovoLog per scale ACHS * Goal Range: Low 150 mg/dL - High 200 mg/dL * Correction Factor: correction provided via insulin infusion * Nutritional / Prandial insulin per carb ratio of 1 unit per 9 grams CHO consumed PLAN FOR DISCHARGE: * Patient's A1c (10%) indicates sub-optimal glycemic control. Patient is a very brittle diabetic, and tight glycemic control is very difficult. * Recommend continuing to work with outpatient providers to optimize A1c. * Expect that patient may resume insulin pump as previously ordered when discharged.
[2018-06-12] MEDS: INSULIN REGULAR 250 UNITS in SODIUM CHLORIDE 0.9% 247.5 ML IV SCH (16:50)
[2018-06-12] MEDS: ALBUT/IPRATROP 3MG/0.5MG NEB 3 ML VIAL NEB PRN (19:23)
[2018-06-12] MEDS: MONTELUKAST SODIUM 10 MG TABLET PO SCH (20:25)
[2018-06-12] MEDS: FEXOFENADINE HCL 180 MG TAB PO SCH (20:25)
[2018-06-12] MEDS: PROMETHAZINE HCL 25 MG TAB PO PRN (22:10)
[2018-06-12] MEDS ORDERED: NON-FORMULARY MEDICATION SCH (23:00)
[2018-06-12] MEDS: [UNRECOGNIZED DRUG - REMARK] SCH (23:12)
[2018-06-13] MEDS: CEFTOLOZANE/TAZOBACTAM 750 MG in DEXTROSE 5% 100 ML IV SCH ×4 (00:17→23:23)
[2018-06-13] MEDS: HEPARIN SOD 5,000 UNIT/0.5 ML VIAL SQ SCH ×3 (05:54→20:35)
[2018-06-13] MEDS: ACETYLCYSTEINE 20% INHAL SOLN ***DISPENSED BY RESP. INH SCH ×2 (06:04→19:24)
[2018-06-13] MEDS: LEVOTHYROXINE SODIUM 150 MCG TABLET PO SCH (06:13)
[2018-06-13] MEDS: INSULIN ASPART 100 UNITS/ML 3 ML PEN SC SCH ×4 (08:44→20:35)
[2018-06-13 09:00] LABS: Basophils # (auto) 0.02 K/uL (0-0.2); Basophils % (auto) 0.5 %; Eosinophils # (auto) 0.08 K/uL (0-0.5); Eosinophils % (auto) 2.1 %; Hemoglobin 10.1 g/dL (12.0-16.0); Immature Granulocytes # (auto) 0.03 K/uL (0.00-0.02); Immature Granulocytes % (auto) 0.8 %; Lymphocytes # (auto) 0.75 K/uL (1.2-3.4); Lymphocytes % (auto) 19.4 %; Mean Corpuscular Hgb Conc 31.6 g/dL (32-36); Mean Corpuscular Volume 102.2 fL (80-100); Mean Platelet Volume 9.5 fL (7.4-10.4); Monocytes # (auto) 0.27 K/uL (0.11-0.59); Neutrophils # (auto) 2.72 K/uL (1.4-6.5); Neutrophils % (auto) 70.2 %; Platelet Count 180 K/uL (130-400); RDW Coefficient of Variation 14.4 % (11.5-14.5); RDW Standard Deviation 53.5 fL (36.4-46.3); Red Blood Count 3.13 M/uL (4.2-5.4); White Blood Count 3.87 K/uL (4.8-10.8)
[2018-06-13 09:15] LABS: BUN Creatinine Ratio 14.2 (10-20); Calcium 8.3 mg/dl (8.5-10.1); Creatinine Clr Calc Pharmacy 85.2 ml/min; Est GFR (African American) 118.1; Est GFR (Non-African American) 101.9; Potassium 4.1 mmol/L (3.5-5.1)
[2018-06-13 10:59] LABS: HCO3 ABG 32 mmol/L (19-24); Oxygen Saturation ABG 96.7 % (90-95); PCO2 ABG 49 mmHg (35-46); PO2 ABG 90 mm/Hg (80-95); pH ABG 7.42 (7.35-7.45)
[2018-06-13 11:00] LABS: Allen Test Pos (Pos)
--- NOTE | 2018-06-13 11:16 | Hospitalist Progress Note ---
Date of Service June 13, 2018 Assessment & Plan (1) Fever: New fever again on AM of 06/12, with N/V/D CXR unchanged and no new pulm complaints or signs No abd pain KUB nonobstructive pattern Now all resolved--> perhaps a viral gastroenteritis? C. diff not collected as diarrhea has stopped -BCxs no growth to date procal lower than previous leukocytosis now resolved and actually with leukopenia -switched back to Zerbaxa from ertapenem despite sensitivities saying ertapenem should be effective--> perhaps a different pathogen not growing on culture (2) Nausea vomiting and diarrhea: as above, now resolved -adv diet as tolerated today -dc IVFs antiemetics prn (3) HCAP (healthcare-associated pneumonia): With a history of recurrent admissions for pneumonia related to tracheostomy and aspiration was here in late March/early April and transferred to [facility] for "second opinion" as per Mom-Pulm there also thought recurrent aspiration PNAs CXR with increased bibasilar infiltrates, Leukocytosis with left shift, low grade temperature, increased sputum production that smelled foul Improved clinically now from Pulm standpoint Sputum cx with ESBL E. coli again BCxs remain NGTD -received Zerbaxax 3 days, then changed to IV ertapenem on 06/11 based on sensitivities--> then switched back to Zerbaxa when spiked fevers again -ID recommends 10 days total-today day#6 overall -ID consult appreciated -continue tracheostomy care -continue on Mucomyst, Duoneb (4) SOM (acute kidney injury): Cr up to 1.5 on admission likely due to infection, dehydration Treated with IVFs and now returned to normal hold nephrotoxins (5) Hyperglycemia: type I diabetic on pump Hyperglycemia remains and then with some borderline hypoglycemia at times--> very brittle diabetic -continue to treat with insulin drip and transition to pump prior to discharge -continue Pharmacy glycemic management (6) Anemia of chronic disease: Hb is at baseline, macrocytic will follow (7) Down syndrome: supportive care (8) Type 1 diabetes: see above, here with hyperglycemia HCO3 normal, no signs of DKA (9) Hypoxia: mild hypoxia, requiring 2L via tracheostomy, is on 4L at home continuous continue to treat PNA Duoneb PRN (10) Hypothyroidism: continue LT4 home dose (11) CAMILLA (obstructive sleep apnea): continue on hs O2 (12) Depression: continue home celexa (13) UTI (urinary tract infection): UTI- simple cystitis, with E. coli also resistant to multiple abx -Zerbaxa covering (14) Lethargy: likely was just due to fatigue from being sick with fevers, N/V/D the day prior ABG normal, not retaining CO2 -resolved (15) DVT prophylaxis: Heparin SC Dispo-remain on tele Subjective No more fevers but RN and stamp maker reported lethargy this AM. She later perked up and stamp maker thought she was likely just tired from a long day and night the day before. Now afebrile since last evening. No increased cough. Schedule Maker reports trach had minimal sputum but did have a foul odor once again in the sputum. No further N/V/D and is hungry again. Schedule Maker thinks one of Valorie's recent visitors ended up coming down with a N/V/D "bug" yesterday as well and thinks she gave this to the pt. Tele with SB 50-60s Review of Systems All systems reviewed & are unremarkable except as noted in HPI & below Physical Exam Vital Signs (Past 24 Hours): Last Vital Signs Temp 36.7 C 06/13/18 10:58 Pulse 59 L 06/13/18 10:58 Resp 16 06/13/18 10:58 BP 103/64 06/13/18 10:58 Pulse Ox 98 06/13/18 10:58 Constitutional: no acute distress (dysmorphic features) Eyes: PERRL, conjunctivae normal, anicteric sclerae ENMT: external ear and nose normal, oropharynx normal Neck: + abnormal visual inspection (tracheostomy tube in place) Respiratory: normal respiratory effort Auscultation: + wheezes (a few inspiratory and exp wheezes, no crackles or rhonchi) Cardiovascular: RRR, no murmur, no edema Gastrointestinal (Abdomen): normal bowel sounds, soft, nontender, no hepatosplenomegaly Musculoskeletal: Extremities: extremities normal to inspection; no cyanosis and no clubbing Skin: no rashes, warm and dry Neurologic: moves all extremities and awake; no focal motor deficits Psychiatric: Orientation: alert and cooperative Results & Data Laboratory Results 06/13/18 06/13/18 06/13/18 Range/Units 22:17 21:18 20:32 WBC (4.8-10.8) K/uL RBC (4.2-5.4) M/uL Hgb (12.0-16.0) g/dL Hct (37-47) % MCV (80-100) fL MCH (25-34) pg MCHC (32-36) g/dL RDW Std Deviation (36.4-46.3) fL RDW Coeff of Jackie (11.5-14.5) % Plt Count (130-400) K/uL MPV (7.4-10.4) fL Immature Gran % (Auto) % Neut % (Auto) % Lymph % (Auto) % [place] % (Auto) % Eos % (Auto) % Baso % (Auto) % Immature Gran # (Auto) (0.00-0.02) K/uL Neut # (Auto) (1.4-6.5) K/uL Lymph # (Auto) (1.2-3.4) K/uL [place] # (Auto) (0.11-0.59) K/uL Eos # (Auto) (0-0.5) K/uL Baso # (Auto) (0-0.2) K/uL ABG pH (7.35-7.45) ABG pCO2 (35-46) mmHg ABG pO2 (80-95) mm/Hg ABG HCO3 (19-24) mmol/L ABG O2 Saturation (90-95) % ABG Base Excess (-9-1.8) mEq/L Geo Test (Pos) Barometric Pressure mm/Hg Oxygen Given Sodium (136-145) mmol/L Potassium (3.5-5.1) mmol/L Chloride (98-107) mmol/L Carbon Dioxide (21-32) mmol/L Anion Gap (3-11) BUN (7-18) mg/dl Creatinine (0.6-1.2) mg/dl Est Cr Clr Drug Dosing ml/min Est GFR ( Amer) Est GFR (Non-Af Amer) BUN/Creatinine Ratio (10-20) Glucose (70-99) mg/dl POC Glucose 288 H 256 H 162 H (70-99) Calcium (8.5-10.1) mg/dl Procalcitonin (0-0.5) ng/ml Urine Color Urine Appearance (Clear) Urine pH (4.5-7.5) Ur Specific [place] (1.000-1.030) Urine Protein (Negative) Urine Glucose (UA) (Negative) Urine Ketones (Negative) Urine Blood (Negative) Urine Nitrite (Negative) Urine Bilirubin (Negative) Urine Urobilinogen (Negative) Ur Leukocyte Esterase (Negative) Influenza Type A (PCR) (Neg) Influenza Type B (PCR) (Neg) 06/13/18 06/13/18 06/13/18 Range/Units 19:14 18:19 17:50 WBC (4.8-10.8) K/uL RBC (4.2-5.4) M/uL Hgb (12.0-16.0) g/dL Hct (37-47) % MCV (80-100) fL MCH (25-34) pg MCHC (32-36) g/dL RDW Std Deviation (36.4-46.3) fL RDW Coeff of Jackie (11.5-14.5) % Plt Count (130-400) K/uL MPV (7.4-10.4) fL Immature Gran % (Auto) % Neut % (Auto) % Lymph % (Auto) % [place] % (Auto) % Eos % (Auto) % Baso % (Auto) % Immature Gran # (Auto) (0.00-0.02) K/uL Neut # (Auto) (1.4-6.5) K/uL Lymph # (Auto) (1.2-3.4) K/uL [place] # (Auto) (0.11-0.59) K/uL Eos # (Auto) (0-0.5) K/uL Baso # (Auto) (0-0.2) K/uL ABG pH (7.35-7.45) ABG pCO2 (35-46) mmHg ABG pO2 (80-95) mm/Hg ABG HCO3 (19-24) mmol/L ABG O2 Saturation (90-95) % ABG Base Excess (-9-1.8) mEq/L Geo Test (Pos) Barometric Pressure mm/Hg Oxygen Given Sodium (136-145) mmol/L Potassium (3.5-5.1) mmol/L Chloride (98-107) mmol/L Carbon Dioxide (21-32) mmol/L Anion Gap (3-11) BUN (7-18) mg/dl Creatinine (0.6-1.2) mg/dl Est Cr Clr Drug Dosing ml/min Est GFR ( Amer) Est GFR (Non-Af Amer) BUN/Creatinine Ratio (10-20) Glucose (70-99) mg/dl POC Glucose 221 H 260 H (70-99) Calcium (8.5-10.1) mg/dl Procalcitonin (0-0.5) ng/ml Urine Color Urine Appearance (Clear) Urine pH (4.5-7.5) Ur Specific [place] (1.000-1.030) Urine Protein (Negative) Urine Glucose (UA) (Negative) Urine Ketones (Negative) Urine Blood (Negative) Urine Nitrite (Negative) Urine Bilirubin (Negative) Urine Urobilinogen (Negative) Ur Leukocyte Esterase (Negative) Influenza Type A (PCR) Neg for Influ A (Neg) Influenza Type B (PCR) Neg for Influ B (Neg) 06/13/18 06/13/18 06/13/18 Range/Units 15:58 15:04 13:58 WBC (4.8-10.8) K/uL RBC (4.2-5.4) M/uL Hgb (12.0-16.0) g/dL Hct (37-47) % MCV (80-100) fL MCH (25-34) pg MCHC (32-36) g/dL RDW Std Deviation (36.4-46.3) fL RDW Coeff of Jackie (11.5-14.5) % Plt Count (130-400) K/uL MPV (7.4-10.4) fL Immature Gran % (Auto) % Neut % (Auto) % Lymph % (Auto) % [place] % (Auto) % Eos % (Auto) % Baso % (Auto) % Immature Gran # (Auto) (0.00-0.02) K/uL Neut # (Auto) (1.4-6.5) K/uL Lymph # (Auto) (1.2-3.4) K/uL [place] # (Auto) (0.11-0.59) K/uL Eos # (Auto) (0-0.5) K/uL Baso # (Auto) (0-0.2) K/uL ABG pH (7.35-7.45) ABG pCO2 (35-46) mmHg ABG pO2 (80-95) mm/Hg ABG HCO3 (19-24) mmol/L ABG O2 Saturation (90-95) % ABG Base Excess (-9-1.8) mEq/L Geo Test (Pos) Barometric Pressure mm/Hg Oxygen Given Sodium (136-145) mmol/L Potassium (3.5-5.1) mmol/L Chloride (98-107) mmol/L Carbon Dioxide (21-32) mmol/L Anion Gap (3-11) BUN (7-18) mg/dl Creatinine (0.6-1.2) mg/dl Est Cr Clr Drug Dosing ml/min Est GFR ( Amer) Est GFR (Non-Af Amer) BUN/Creatinine Ratio (10-20) Glucose (70-99) mg/dl POC Glucose 233 H 279 H 313 H (70-99) Calcium (8.5-10.1) mg/dl Procalcitonin (0-0.5) ng/ml Urine Color Urine Appearance (Clear) Urine pH (4.5-7.5) Ur Specific [place] (1.000-1.030) Urine Protein (Negative) Urine Glucose (UA) (Negative) Urine Ketones (Negative) Urine Blood (Negative) Urine Nitrite (Negative) Urine Bilirubin (Negative) Urine Urobilinogen (Negative) Ur Leukocyte Esterase (Negative) Influenza Type A (PCR) (Neg) Influenza Type B (PCR) (Neg) 06/13/18 06/13/18 06/13/18 Range/Units 13:10 12:02 10:56 WBC (4.8-10.8) K/uL RBC (4.2-5.4) M/uL Hgb (12.0-16.0) g/dL Hct (37-47) % MCV (80-100) fL MCH (25-34) pg MCHC (32-36) g/dL RDW Std Deviation (36.4-46.3) fL RDW Coeff of Jackie (11.5-14.5) % Plt Count (130-400) K/uL MPV (7.4-10.4) fL Immature Gran % (Auto) % Neut % (Auto) % Lymph % (Auto) % [place] % (Auto) % Eos % (Auto) % Baso % (Auto) % Immature Gran # (Auto) (0.00-0.02) K/uL Neut # (Auto) (1.4-6.5) K/uL Lymph # (Auto) (1.2-3.4) K/uL [place] # (Auto) (0.11-0.59) K/uL Eos # (Auto) (0-0.5) K/uL Baso # (Auto) (0-0.2) K/uL ABG pH (7.35-7.45) ABG pCO2 (35-46) mmHg ABG pO2 (80-95) mm/Hg ABG HCO3 (19-24) mmol/L ABG O2 Saturation (90-95) % ABG Base Excess (-9-1.8) mEq/L Geo Test (Pos) Barometric Pressure mm/Hg Oxygen Given Sodium (136-145) mmol/L Potassium (3.5-5.1) mmol/L Chloride (98-107) mmol/L Carbon Dioxide (21-32) mmol/L Anion Gap (3-11) BUN (7-18) mg/dl Creatinine (0.6-1.2) mg/dl Est Cr Clr Drug Dosing ml/min Est GFR ( Amer) Est GFR (Non-Af Amer) BUN/Creatinine Ratio (10-20) Glucose (70-99) mg/dl POC Glucose 188 H 195 H (70-99) Calcium (8.5-10.1) mg/dl Procalcitonin (0-0.5) ng/ml Urine Color Yellow Urine Appearance Clear (Clear) Urine pH 5.5 (4.5-7.5) Ur Specific [place] 1.025 (1.000-1.030) Urine Protein Negative (Negative) Urine Glucose (UA) Negative (Negative) Urine Ketones Trace H (Negative) Urine Blood Negative (Negative) Urine Nitrite Negative (Negative) Urine Bilirubin Negative (Negative) Urine Urobilinogen Negative (Negative) Ur Leukocyte Esterase Negative (Negative) Influenza Type A (PCR) (Neg) Influenza Type B (PCR) (Neg) 06/13/18 06/13/18 06/13/18 Range/Units 10:33 10:12 09:08 WBC (4.8-10.8) K/uL RBC (4.2-5.4) M/uL Hgb (12.0-16.0) g/dL Hct (37-47) % MCV (80-100) fL MCH (25-34) pg MCHC (32-36) g/dL RDW Std Deviation (36.4-46.3) fL RDW Coeff of Jakcie (11.5-14.5) % Plt Count (130-400) K/uL MPV (7.4-10.4) fL Immature Gran % (Auto) % Neut % (Auto) % Lymph % (Auto) % [place] % (Auto) % Eos % (Auto) % Baso % (Auto) % Immature Gran # (Auto) (0.00-0.02) K/uL Neut # (Auto) (1.4-6.5) K/uL Lymph # (Auto) (1.2-3.4) K/uL [place] # (Auto) (0.11-0.59) K/uL Eos # (Auto) (0-0.5) K/uL Baso # (Auto) (0-0.2) K/uL ABG pH 7.42 (7.35-7.45) ABG pCO2 49 H (35-46) mmHg ABG pO2 90 (80-95) mm/Hg ABG HCO3 32 H (19-24) mmol/L ABG O2 Saturation 96.7 H (90-95) % ABG Base Excess 6.1 H (-9-1.8) mEq/L Geo Test Pos (Pos) Barometric Pressure 733.4 mm/Hg Oxygen Given 3L Sodium (136-145) mmol/L Potassium (3.5-5.1) mmol/L Chloride (98-107) mmol/L Carbon Dioxide (21-32) mmol/L Anion Gap (3-11) BUN (7-18) mg/dl Creatinine (0.6-1.2) mg/dl Est Cr Clr Drug Dosing ml/min Est GFR ( Amer) Est GFR (Non-Af Amer) BUN/Creatinine Ratio (10-20) Glucose (70-99) mg/dl POC Glucose 206 H 236 H (70-99) Calcium (8.5-10.1) mg/dl Procalcitonin (0-0.5) ng/ml Urine Color Urine Appearance (Clear) Urine pH (4.5-7.5) Ur Specific [place] (1.000-1.030) Urine Protein (Negative) Urine Glucose (UA) (Negative) Urine Ketones (Negative) Urine Blood (Negative) Urine Nitrite (Negative) Urine Bilirubin (Negative) Urine Urobilinogen (Negative) Ur Leukocyte Esterase (Negative) Influenza Type A (PCR) (Neg) Influenza Type B (PCR) (Neg) 06/13/18 06/13/18 06/13/18 Range/Units 08:29 08:29 08:29 WBC 3.87 L D (4.8-10.8) K/uL RBC 3.13 L (4.2-5.4) M/uL Hgb 10.1 L (12.0-16.0) g/dL Hct 32.0 L (37-47) % MCV 102.2 H (80-100) fL MCH 32.3 (25-34) pg MCHC 31.6 L (32-36) g/dL RDW Std Deviation 53.5 H (36.4-46.3) fL RDW Coeff of Jackie 14.4 (11.5-14.5) % Plt Count 180 (130-400) K/uL MPV 9.5 (7.4-10.4) fL Immature Gran % (Auto) 0.8 % Neut % (Auto) 70.2 % Lymph % (Auto) 19.4 % [place] % (Auto) 7.0 % Eos % (Auto) 2.1 % Baso % (Auto) 0.5 % Immature Gran # (Auto) 0.03 H (0.00-0.02) K/uL Neut # (Auto) 2.72 (1.4-6.5) K/uL Lymph # (Auto) 0.75 L (1.2-3.4) K/uL [place] # (Auto) 0.27 (0.11-0.59) K/uL Eos # (Auto) 0.08 (0-0.5) K/uL Baso # (Auto) 0.02 (0-0.2) K/uL ABG pH (7.35-7.45) ABG pCO2 (35-46) mmHg ABG pO2 (80-95) mm/Hg ABG HCO3 (19-24) mmol/L ABG O2 Saturation (90-95) % ABG Base Excess (-9-1.8) mEq/L Geo Test (Pos) Barometric Pressure mm/Hg Oxygen Given Sodium 142 (136-145) mmol/L Potassium 4.1 (3.5-5.1) mmol/L Chloride 108 H (98-107) mmol/L Carbon Dioxide 34 H (21-32) mmol/L Anion Gap 1.0 L (3-11) BUN 9 D (7-18) mg/dl Creatinine 0.64 D (0.6-1.2) mg/dl Est Cr Clr Drug Dosing 85.2 ml/min Est GFR ( Amer) 118.1 Est GFR (Non-Af Amer) 101.9 BUN/Creatinine Ratio 14.2 (10-20) Glucose 217 H (70-99) mg/dl POC Glucose (70-99) Calcium 8.3 L (8.5-10.1) mg/dl Procalcitonin 0.49 (0-0.5) ng/ml Urine Color Urine Appearance (Clear) Urine pH (4.5-7.5) Ur Specific [place] (1.000-1.030) Urine Protein (Negative) Urine Glucose (UA) (Negative) Urine Ketones (Negative) Urine Blood (Negative) Urine Nitrite (Negative) Urine Bilirubin (Negative) Urine Urobilinogen (Negative) Ur Leukocyte Esterase (Negative) Influenza Type A (PCR) (Neg) Influenza Type B (PCR) (Neg) 06/13/18 06/13/18 06/13/18 Range/Units 08:04 07:00 05:51 WBC (4.8-10.8) K/uL RBC (4.2-5.4) M/uL Hgb (12.0-16.0) g/dL Hct (37-47) % MCV (80-100) fL MCH (25-34) pg MCHC (32-36) g/dL RDW Std Deviation (36.4-46.3) fL RDW Coeff of Jackie (11.5-14.5) % Plt Count (130-400) K/uL MPV (7.4-10.4) fL Immature Gran % (Auto) % Neut % (Auto) % Lymph % (Auto) % [place] % (Auto) % Eos % (Auto) % Baso % (Auto) % Immature Gran # (Auto) (0.00-0.02) K/uL Neut # (Auto) (1.4-6.5) K/uL Lymph # (Auto) (1.2-3.4) K/uL [place] # (Auto) (0.11-0.59) K/uL Eos # (Auto) (0-0.5) K/uL Baso # (Auto) (0-0.2) K/uL ABG pH (7.35-7.45) ABG pCO2 (35-46) mmHg ABG pO2 (80-95) mm/Hg ABG HCO3 (19-24) mmol/L ABG O2 Saturation (90-95) % ABG Base Excess (-9-1.8) mEq/L Geo Test (Pos) Barometric Pressure mm/Hg Oxygen Given Sodium (136-145) mmol/L Potassium (3.5-5.1) mmol/L Chloride (98-107) mmol/L Carbon Dioxide (21-32) mmol/L Anion Gap (3-11) BUN (7-18) mg/dl Creatinine (0.6-1.2) mg/dl Est Cr Clr Drug Dosing ml/min Est GFR ( Amer) Est GFR (Non-Af Amer) BUN/Creatinine Ratio (10-20) Glucose (70-99) mg/dl POC Glucose 189 H 180 H 178 H (70-99) Calcium (8.5-10.1) mg/dl Procalcitonin (0-0.5) ng/ml Urine Color Urine Appearance (Clear) Urine pH (4.5-7.5) Ur Specific [place] (1.000-1.030) Urine Protein (Negative) Urine Glucose (UA) (Negative) Urine Ketones (Negative) Urine Blood (Negative) Urine Nitrite (Negative) Urine Bilirubin (Negative) Urine Urobilinogen (Negative) Ur Leukocyte Esterase (Negative) Influenza Type A (PCR) (Neg) Influenza Type B (PCR) (Neg) 06/13/18 06/13/18 06/13/18 Range/Units 04:59 04:07 03:07 WBC (4.8-10.8) K/uL RBC (4.2-5.4) M/uL Hgb (12.0-16.0) g/dL Hct (37-47) % MCV (80-100) fL MCH (25-34) pg MCHC (32-36) g/dL RDW Std Deviation (36.4-46.3) fL RDW Coeff of Jackie (11.5-14.5) % Plt Count (130-400) K/uL MPV (7.4-10.4) fL Immature Gran % (Auto) % Neut % (Auto) % Lymph % (Auto) % [place] % (Auto) % Eos % (Auto) % Baso % (Auto) % Immature Gran # (Auto) (0.00-0.02) K/uL Neut # (Auto) (1.4-6.5) K/uL Lymph # (Auto) (1.2-3.4) K/uL [place] # (Auto) (0.11-0.59) K/uL Eos # (Auto) (0-0.5) K/uL Baso # (Auto) (0-0.2) K/uL ABG pH (7.35-7.45) ABG pCO2 (35-46) mmHg ABG pO2 (80-95) mm/Hg ABG HCO3 (19-24) mmol/L ABG O2 Saturation (90-95) % ABG Base Excess (-9-1.8) mEq/L Geo Test (Pos) Barometric Pressure mm/Hg Oxygen Given Sodium (136-145) mmol/L Potassium (3.5-5.1) mmol/L Chloride (98-107) mmol/L Carbon Dioxide (21-32) mmol/L Anion Gap (3-11) BUN (7-18) mg/dl Creatinine (0.6-1.2) mg/dl Est Cr Clr Drug Dosing ml/min Est GFR ( Amer) Est GFR (Non-Af Amer) BUN/Creatinine Ratio (10-20) Glucose (70-99) mg/dl POC Glucose 203 H 199 H 248 H (70-99) Calcium (8.5-10.1) mg/dl Procalcitonin (0-0.5) ng/ml Urine Color Urine Appearance (Clear) Urine pH (4.5-7.5) Ur Specific [place] (1.000-1.030) Urine Protein (Negative) Urine Glucose (UA) (Negative) Urine Ketones (Negative) Urine Blood (Negative) Urine Nitrite (Negative) Urine Bilirubin (Negative) Urine Urobilinogen (Negative) Ur Leukocyte Esterase (Negative) Influenza Type A (PCR) (Neg) Influenza Type B (PCR) (Neg) 06/13/18 06/13/18 Range/Units 01:57 00:00 WBC (4.8-10.8) K/uL RBC (4.2-5.4) M/uL Hgb (12.0-16.0) g/dL Hct (37-47) % MCV (80-100) fL MCH (25-34) pg MCHC (32-36) g/dL RDW Std Deviation (36.4-46.3) fL RDW Coeff of Jackie (11.5-14.5) % Plt Count (130-400) K/uL MPV (7.4-10.4) fL Immature Gran % (Auto) % Neut % (Auto) % Lymph % (Auto) % [place] % (Auto) % Eos % (Auto) % Baso % (Auto) % Immature Gran # (Auto) (0.00-0.02) K/uL Neut # (Auto) (1.4-6.5) K/uL Lymph # (Auto) (1.2-3.4) K/uL [place] # (Auto) (0.11-0.59) K/uL Eos # (Auto) (0-0.5) K/uL Baso # (Auto) (0-0.2) K/uL ABG pH (7.35-7.45) ABG pCO2 (35-46) mmHg ABG pO2 (80-95) mm/Hg ABG HCO3 (19-24) mmol/L ABG O2 Saturation (90-95) % ABG Base Excess (-9-1.8) mEq/L Geo Test (Pos) Barometric Pressure mm/Hg Oxygen Given Sodium (136-145) mmol/L Potassium (3.5-5.1) mmol/L Chloride (98-107) mmol/L Carbon Dioxide (21-32) mmol/L Anion Gap (3-11) BUN (7-18) mg/dl Creatinine (0.6-1.2) mg/dl Est Cr Clr Drug Dosing ml/min Est GFR ( Amer) Est GFR (Non-Af Amer) BUN/Creatinine Ratio (10-20) Glucose (70-99) mg/dl POC Glucose 221 H 175 H (70-99) Calcium (8.5-10.1) mg/dl Procalcitonin (0-0.5) ng/ml Urine Color Urine Appearance (Clear) Urine pH (4.5-7.5) Ur Specific [place] (1.000-1.030) Urine Protein (Negative) Urine Glucose (UA) (Negative) Urine Ketones (Negative) Urine Blood (Negative) Urine Nitrite (Negative) Urine Bilirubin (Negative) Urine Urobilinogen (Negative) Ur Leukocyte Esterase (Negative) Influenza Type A (PCR) (Neg) Influenza Type B (PCR) (Neg) Diagnostic Findings Repeat CXR reviewed-unchanged from previous with bibasilar opacities
[2018-06-13] MEDS: CITALOPRAM 40 MG TAB PO SCH (11:56)
[2018-06-13 13:31] LABS: Appearance Urine Clear (Clear); Bilirubin Urine Negative (Negative); Blood Urine Negative (Negative); Color Urine Yellow; Glucose Urine UA Negative (Negative); Ketones Urine Trace (Negative); Leukocyte Esterase Urine Negative (Negative); Nitrite Urine Negative (Negative); Protein Urine Negative (Negative); Specific Gravity Urine 1.025 (1.000-1.030); Urobilinogen Urine Negative (Negative); pH Urine 5.5 (4.5-7.5)
--- NOTE | 2018-06-13 14:13 | XRay Report ---
XR chest 1V portable CLINICAL HISTORY: SOB, f/u PNA COMPARISON STUDY: Chest radiograph June 04, 2018. FINDINGS: [id number] and tracheostomy tube are place. There is no pneumothorax. Right basilar opac ities persist. There may be trace bilateral pleural effusions. There is no evidence for pulmonary yoni ma. Cardiomediastinal silhouette is stable. There are old left rib fractures. IMPRESSION: Persistent bibasilar opacities which may reflect pneumonia or atelectasis. No change in appearance of the chest. Electronically signed by: Manny Gorman M.D. 06/13/2018 2:12 PM
[2018-06-13] MEDS: ACETAMINOPHEN 325 MG TAB PO PRN (15:48)
[2018-06-13] MEDS: INSULIN REGULAR 250 UNITS in SODIUM CHLORIDE 0.9% 247.5 ML IV SCH (16:33)
[2018-06-13 18:47] LABS: Influenza A virus by PCR Neg for Influ A (Neg); Influenza B virus by PCR Neg for Influ B (Neg)
[2018-06-13] MEDS: ALBUT/IPRATROP 3MG/0.5MG NEB 3 ML VIAL NEB PRN (19:24)
[2018-06-13] MEDS: FEXOFENADINE HCL 180 MG TAB PO SCH (20:34)
[2018-06-13] MEDS: MONTELUKAST SODIUM 10 MG TABLET PO SCH (20:35)
[2018-06-13] MEDS: [UNRECOGNIZED DRUG - REMARK] SCH (23:24)
[2018-06-14] MEDS: INSULIN REGULAR 250 UNITS in SODIUM CHLORIDE 0.9% 247.5 ML IV SCH (00:55)
[2018-06-14] MEDS: ONDANSETRON INJ 2 MG/ML 2 ML VIAL IV PRN (03:05)
[2018-06-14] MEDS: LEVOTHYROXINE SODIUM 150 MCG TABLET PO SCH (05:27)
[2018-06-14] MEDS: HEPARIN SOD 5,000 UNIT/0.5 ML VIAL SQ SCH ×3 (05:27→21:37)
[2018-06-14 06:06] LABS: Basophils # (auto) 0.01 K/uL (0-0.2); Basophils % (auto) 0.1 %; Eosinophils # (auto) 0.08 K/uL (0-0.5); Eosinophils % (auto) 0.8 %; Hematocrit (blood only) 31.3 % (37-47); Immature Granulocytes # (auto) 0.03 K/uL (0.00-0.02); Immature Granulocytes % (auto) 0.3 %; Lymphocytes # (auto) 0.86 K/uL (1.2-3.4); Mean Corpuscular Hgb Conc 31.9 g/dL (32-36); Mean Platelet Volume 10.4 fL (7.4-10.4); Monocytes # (auto) 0.68 K/uL (0.11-0.59); Monocytes % (auto) 7.1 %; Neutrophils # (auto) 7.94 K/uL (1.4-6.5); Neutrophils % (auto) 82.7 %; Platelet Count 206 K/uL (130-400); RDW Coefficient of Variation 14.4 % (11.5-14.5); RDW Standard Deviation 53.3 fL (36.4-46.3)
[2018-06-14 06:32] LABS: BUN Creatinine Ratio 12.3 (10-20); Calcium 7.8 mg/dl (8.5-10.1); Creatinine Clr Calc Pharmacy 80.1 ml/min; Est GFR (African American) 115.7; Est GFR (Non-African American) 99.9; Potassium 4.2 mmol/L (3.5-5.1)
[2018-06-14] MEDS: ACETYLCYSTEINE 20% INHAL SOLN ***DISPENSED BY RESP. INH SCH ×2 (07:18→19:04)
[2018-06-14] MEDS: ALBUT/IPRATROP 3MG/0.5MG NEB 3 ML VIAL NEB PRN ×2 (07:18→19:04)
[2018-06-14] MEDS: INSULIN ASPART 100 UNITS/ML 3 ML PEN SC SCH ×4 (08:07→20:38)
[2018-06-14] MEDS: CEFTOLOZANE/TAZOBACTAM 750 MG in DEXTROSE 5% 100 ML IV SCH (08:07)
[2018-06-14] MEDS: CITALOPRAM 40 MG TAB PO SCH (08:07)
--- NOTE | 2018-06-14 13:17 | Hospitalist Progress Note ---
Date of Service June 14, 2018 Assessment & Plan (1) Fever: New fever again on AM of 06/12, with N/V/D-now resolved CXR unchanged and no new pulm complaints or signs No abd pain KUB nonobstructive pattern Now all resolved--> perhaps a viral gastroenteritis as 1 of her caretakers developed the exact same symptoms on the same day as her shortly after taking care of the patient C. diff not collected as diarrhea has stopped -BCxs no growth to date procal lower than previous leukocytosis now resolved -Okay to discontinue the Zerbaxa again and finish out 10-day course of ertapenem-needs 3 more days with last dose being on June 17 (2) Nausea vomiting and diarrhea: as above, now resolved, likely viral gastroenteritis Tolerating regular diet (3) HCAP (healthcare-associated pneumonia): With a history of recurrent admissions for pneumonia related to tracheostomy and aspiration was here in late March/early April and transferred to [facility] for "second opinion" as per Mom-Pulm there also thought recurrent aspiration PNAs CXR with increased bibasilar infiltrates, Leukocytosis with left shift, low grade temperature, increased sputum production that smelled foul on admission- now all resolved Improved clinically now from Pulm standpoint Sputum cx with ESBL E. coli again BCxs remain NGTD -received Zerbaxax 3 days, then changed to IV ertapenem on 06/11 based on sensitivities--> then switched back to Zerbaxa when spiked fevers again which turned out to be from viral gastroenteritis -Changing back to ertapenem again today -ID recommends 10 days total-today day#7 overall -ID consult appreciated -continue tracheostomy care -continue on Mucomyst, Duoneb (4) SOM (acute kidney injury): Cr up to 1.5 on admission likely due to infection, dehydration Treated with IVFs and now returned to normal hold nephrotoxins (5) Hyperglycemia: type I diabetic on pump Hyperglycemia remains and then with some borderline hypoglycemia at times--> very brittle diabetic -continue to treat with insulin drip and transition to pump prior to discharge tomorrow -continue Pharmacy glycemic management (6) Anemia of chronic disease: Hb is at baseline, macrocytic will follow (7) Down syndrome: supportive care (8) Type 1 diabetes: see above, here with hyperglycemia HCO3 normal, no signs of DKA (9) Hypoxia: Chronic hypoxic respiratory failure, normally on 4 L continuous at home Continue oxygen therapy here, at baseline (10) Hypothyroidism: continue LT4 home dose (11) CAMILLA (obstructive sleep apnea): continue on hs O2 (12) Depression: continue home celexa (13) UTI (urinary tract infection): UTI- simple cystitis, with E. coli also resistant to multiple abx -Zerbaxa and ertapenem covering (14) Lethargy: likely was just due to fatigue from being sick with fevers, N/V/D the day prior ABG normal, not retaining CO2 -resolved (15) DVT prophylaxis: Heparin SC Dispo-remain on , plans being made for hopeful for discharge on Saturday. She will need her dose of her ertapenem here in the morning, and then home infusion to begin on Saturday Needs insulin pump brought in from home by her caretakers and placed in the morning in order to transition off her insulin drip Subjective Doing great, no problems. Mobile Application Developer reports she is "sassy" today. No cough. No nausea or vomiting. She is eating well. No abdominal pain. She remains afebrile. Telemetry with normal sinus rhythm with rates in the 70s to 80s Physical Exam Vital Signs (Past 24 Hours): Last Vital Signs Temp 36.9 C 06/14/18 12:23 Pulse 66 06/14/18 12:23 Resp 15 06/14/18 12:23 BP 114/67 06/14/18 12:23 Pulse Ox 97 06/14/18 12:23 Constitutional: no acute distress (dysmorphic features) Eyes: PERRL, conjunctivae normal, anicteric sclerae ENMT: external ear and nose normal, oropharynx normal Neck: + abnormal visual inspection (tracheostomy tube in place) Respiratory: normal respiratory effort Auscultation: + wheezes (a few inspiratory and exp wheezes, no crackles or rhonchi) Cardiovascular: RRR, no murmur, no edema Gastrointestinal (Abdomen): normal bowel sounds, soft, nontender, no hepatosplenomegaly Musculoskeletal: Extremities: extremities normal to inspection; no cyanosis and no clubbing Skin: no rashes, warm and dry Neurologic: moves all extremities and awake; no focal motor deficits Psychiatric: Orientation: alert and cooperative Results & Data Laboratory Results 0306/14/18 06/14/18 Range/Units 20:35 19:24 18:36 WBC (4.8-10.8) K/uL RBC (4.2-5.4) M/uL Hgb (12.0-16.0) g/dL Hct (37-47) % MCV (80-100) fL MCH (25-34) pg MCHC (32-36) g/dL RDW Std Deviation (36.4-46.3) fL RDW Coeff of Jackie (11.5-14.5) % Plt Count (130-400) K/uL MPV (7.4-10.4) fL Immature Gran % (Auto) % Neut % (Auto) % Lymph % (Auto) % [place] % (Auto) % Eos % (Auto) % Baso % (Auto) % Immature Gran # (Auto) (0.00-0.02) K/uL Neut # (Auto) (1.4-6.5) K/uL Lymph # (Auto) (1.2-3.4) K/uL [place] # (Auto) (0.11-0.59) K/uL Eos # (Auto) (0-0.5) K/uL Baso # (Auto) (0-0.2) K/uL Sodium (136-145) mmol/L Potassium (3.5-5.1) mmol/L Chloride (98-107) mmol/L Carbon Dioxide (21-32) mmol/L Anion Gap (3-11) BUN (7-18) mg/dl Creatinine (0.6-1.2) mg/dl Est Cr Clr Drug Dosing ml/min Est GFR ( Amer) Est GFR (Non-Af Amer) BUN/Creatinine Ratio (10-20) Glucose (70-99) mg/dl POC Glucose 225 H 213 H 296 H (70-99) Calcium (8.5-10.1) mg/dl Influenza Type A (PCR) (Neg) Influenza Type B (PCR) (Neg) 06/14/18 06/14/18 06/14/18 Range/Units 17:39 16:36 15:39 WBC (4.8-10.8) K/uL RBC (4.2-5.4) M/uL Hgb (12.0-16.0) g/dL Hct (37-47) % MCV (80-100) fL MCH (25-34) pg MCHC (32-36) g/dL RDW Std Deviation (36.4-46.3) fL RDW Coeff of Jackie (11.5-14.5) % Plt Count (130-400) K/uL MPV (7.4-10.4) fL Immature Gran % (Auto) % Neut % (Auto) % Lymph % (Auto) % [place] % (Auto) % Eos % (Auto) % Baso % (Auto) % Immature Gran # (Auto) (0.00-0.02) K/uL Neut # (Auto) (1.4-6.5) K/uL Lymph # (Auto) (1.2-3.4) K/uL [place] # (Auto) (0.11-0.59) K/uL Eos # (Auto) (0-0.5) K/uL Baso # (Auto) (0-0.2) K/uL Sodium (136-145) mmol/L Potassium (3.5-5.1) mmol/L Chloride (98-107) mmol/L Carbon Dioxide (21-32) mmol/L Anion Gap (3-11) BUN (7-18) mg/dl Creatinine (0.6-1.2) mg/dl Est Cr Clr Drug Dosing ml/min Est GFR ( Amer) Est GFR (Non-Af Amer) BUN/Creatinine Ratio (10-20) Glucose (70-99) mg/dl POC Glucose 197 H 147 H 148 H (70-99) Calcium (8.5-10.1) mg/dl Influenza Type A (PCR) (Neg) Influenza Type B (PCR) (Neg) 06/14/18 06/14/18 06/14/18 Range/Units 15:09 14:50 14:23 WBC (4.8-10.8) K/uL RBC (4.2-5.4) M/uL Hgb (12.0-16.0) g/dL Hct (37-47) % MCV (80-100) fL MCH (25-34) pg MCHC (32-36) g/dL RDW Std Deviation (36.4-46.3) fL RDW Coeff of Jackie (11.5-14.5) % Plt Count (130-400) K/uL MPV (7.4-10.4) fL Immature Gran % (Auto) % Neut % (Auto) % Lymph % (Auto) % [place] % (Auto) % Eos % (Auto) % Baso % (Auto) % Immature Gran # (Auto) (0.00-0.02) K/uL Neut # (Auto) (1.4-6.5) K/uL Lymph # (Auto) (1.2-3.4) K/uL [place] # (Auto) (0.11-0.59) K/uL Eos # (Auto) (0-0.5) K/uL Baso # (Auto) (0-0.2) K/uL Sodium (136-145) mmol/L Potassium (3.5-5.1) mmol/L Chloride (98-107) mmol/L Carbon Dioxide (21-32) mmol/L Anion Gap (3-11) BUN (7-18) mg/dl Creatinine (0.6-1.2) mg/dl Est Cr Clr Drug Dosing ml/min Est GFR ( Amer) Est GFR (Non-Af Amer) BUN/Creatinine Ratio (10-20) Glucose (70-99) mg/dl POC Glucose 171 H 202 H (70-99) Calcium (8.5-10.1) mg/dl Influenza Type A (PCR) Neg for Influ A (Neg) Influenza Type B (PCR) Neg for Influ B (Neg) 06/14/18 06/14/18 06/14/18 Range/Units 13:04 11:35 10:41 WBC (4.8-10.8) K/uL RBC (4.2-5.4) M/uL Hgb (12.0-16.0) g/dL Hct (37-47) % MCV (80-100) fL MCH (25-34) pg MCHC (32-36) g/dL RDW Std Deviation (36.4-46.3) fL RDW Coeff of Jackie (11.5-14.5) % Plt Count (130-400) K/uL MPV (7.4-10.4) fL Immature Gran % (Auto) % Neut % (Auto) % Lymph % (Auto) % [place] % (Auto) % Eos % (Auto) % Baso % (Auto) % Immature Gran # (Auto) (0.00-0.02) K/uL Neut # (Auto) (1.4-6.5) K/uL Lymph # (Auto) (1.2-3.4) K/uL [place] # (Auto) (0.11-0.59) K/uL Eos # (Auto) (0-0.5) K/uL Baso # (Auto) (0-0.2) K/uL Sodium (136-145) mmol/L Potassium (3.5-5.1) mmol/L Chloride (98-107) mmol/L Carbon Dioxide (21-32) mmol/L Anion Gap (3-11) BUN (7-18) mg/dl Creatinine (0.6-1.2) mg/dl Est Cr Clr Drug Dosing ml/min Est GFR ( Amer) Est GFR (Non-Af Amer) BUN/Creatinine Ratio (10-20) Glucose (70-99) mg/dl POC Glucose 238 H 175 H 179 H (70-99) Calcium (8.5-10.1) mg/dl Influenza Type A (PCR) (Neg) Influenza Type B (PCR) (Neg) 06/14/18 06/14/18 06/14/18 Range/Units 09:20 08:23 07:15 WBC (4.8-10.8) K/uL RBC (4.2-5.4) M/uL Hgb (12.0-16.0) g/dL Hct (37-47) % MCV (80-100) fL MCH (25-34) pg MCHC (32-36) g/dL RDW Std Deviation (36.4-46.3) fL RDW Coeff of Jackie (11.5-14.5) % Plt Count (130-400) K/uL MPV (7.4-10.4) fL Immature Gran % (Auto) % Neut % (Auto) % Lymph % (Auto) % [place] % (Auto) % Eos % (Auto) % Baso % (Auto) % Immature Gran # (Auto) (0.00-0.02) K/uL Neut # (Auto) (1.4-6.5) K/uL Lymph # (Auto) (1.2-3.4) K/uL [place] # (Auto) (0.11-0.59) K/uL Eos # (Auto) (0-0.5) K/uL Baso # (Auto) (0-0.2) K/uL Sodium (136-145) mmol/L Potassium (3.5-5.1) mmol/L Chloride (98-107) mmol/L Carbon Dioxide (21-32) mmol/L Anion Gap (3-11) BUN (7-18) mg/dl Creatinine (0.6-1.2) mg/dl Est Cr Clr Drug Dosing ml/min Est GFR ( Amer) Est GFR (Non-Af Amer) BUN/Creatinine Ratio (10-20) Glucose (70-99) mg/dl POC Glucose 234 H 357 H* 306 H (70-99) Calcium (8.5-10.1) mg/dl Influenza Type A (PCR) (Neg) Influenza Type B (PCR) (Neg) 06/14/18 06/14/18 06/14/18 Range/Units 06:26 05:31 05:31 WBC 9.60 (4.8-10.8) K/uL RBC 3.10 L (4.2-5.4) M/uL Hgb 10.0 L (12.0-16.0) g/dL Hct 31.3 L (37-47) % MCV 101.0 H (80-100) fL MCH 32.3 (25-34) pg MCHC 31.9 L (32-36) g/dL RDW Std Deviation 53.3 H (36.4-46.3) fL RDW Coeff of Jackie 14.4 (11.5-14.5) % Plt Count 206 (130-400) K/uL MPV 10.4 (7.4-10.4) fL Immature Gran % (Auto) 0.3 % Neut % (Auto) 82.7 % Lymph % (Auto) 9.0 % [place] % (Auto) 7.1 % Eos % (Auto) 0.8 % Baso % (Auto) 0.1 % Immature Gran # (Auto) 0.03 H (0.00-0.02) K/uL Neut # (Auto) 7.94 H (1.4-6.5) K/uL Lymph # (Auto) 0.86 L (1.2-3.4) K/uL [place] # (Auto) 0.68 H (0.11-0.59) K/uL Eos # (Auto) 0.08 (0-0.5) K/uL Baso # (Auto) 0.01 (0-0.2) K/uL Sodium 137 (136-145) mmol/L Potassium 4.2 (3.5-5.1) mmol/L Chloride 103 (98-107) mmol/L Carbon Dioxide 31 (21-32) mmol/L Anion Gap 3.0 (3-11) BUN 8 (7-18) mg/dl Creatinine 0.68 (0.6-1.2) mg/dl Est Cr Clr Drug Dosing 80.1 ml/min Est GFR ( Amer) 115.7 Est GFR (Non-Af Amer) 99.9 BUN/Creatinine Ratio 12.3 (10-20) Glucose 264 H (70-99) mg/dl POC Glucose 265 H (70-99) Calcium 7.8 L (8.5-10.1) mg/dl Influenza Type A (PCR) (Neg) Influenza Type B (PCR) (Neg) 06/14/18 06/14/18 06/14/18 Range/Units 05:24 04:17 03:16 WBC (4.8-10.8) K/uL RBC (4.2-5.4) M/uL Hgb (12.0-16.0) g/dL Hct (37-47) % MCV (80-100) fL MCH (25-34) pg MCHC (32-36) g/dL RDW Std Deviation (36.4-46.3) fL RDW Coeff of Jackie (11.5-14.5) % Plt Count (130-400) K/uL MPV (7.4-10.4) fL Immature Gran % (Auto) % Neut % (Auto) % Lymph % (Auto) % [place] % (Auto) % Eos % (Auto) % Baso % (Auto) % Immature Gran # (Auto) (0.00-0.02) K/uL Neut # (Auto) (1.4-6.5) K/uL Lymph # (Auto) (1.2-3.4) K/uL [place] # (Auto) (0.11-0.59) K/uL Eos # (Auto) (0-0.5) K/uL Baso # (Auto) (0-0.2) K/uL Sodium (136-145) mmol/L Potassium (3.5-5.1) mmol/L Chloride (98-107) mmol/L Carbon Dioxide (21-32) mmol/L Anion Gap (3-11) BUN (7-18) mg/dl Creatinine (0.6-1.2) mg/dl Est Cr Clr Drug Dosing ml/min Est GFR ( Amer) Est GFR (Non-Af Amer) BUN/Creatinine Ratio (10-20) Glucose (70-99) mg/dl POC Glucose 261 H 236 H 212 H (70-99) Calcium (8.5-10.1) mg/dl Influenza Type A (PCR) (Neg) Influenza Type B (PCR) (Neg) 06/14/18 06/14/18 06/14/18 Range/Units 02:17 01:30 00:21 WBC (4.8-10.8) K/uL RBC (4.2-5.4) M/uL Hgb (12.0-16.0) g/dL Hct (37-47) % MCV (80-100) fL MCH (25-34) pg MCHC (32-36) g/dL RDW Std Deviation (36.4-46.3) fL RDW Coeff of Jackie (11.5-14.5) % Plt Count (130-400) K/uL MPV (7.4-10.4) fL Immature Gran % (Auto) % Neut % (Auto) % Lymph % (Auto) % [place] % (Auto) % Eos % (Auto) % Baso % (Auto) % Immature Gran # (Auto) (0.00-0.02) K/uL Neut # (Auto) (1.4-6.5) K/uL Lymph # (Auto) (1.2-3.4) K/uL [place] # (Auto) (0.11-0.59) K/uL Eos # (Auto) (0-0.5) K/uL Baso # (Auto) (0-0.2) K/uL Sodium (136-145) mmol/L Potassium (3.5-5.1) mmol/L Chloride (98-107) mmol/L Carbon Dioxide (21-32) mmol/L Anion Gap (3-11) BUN (7-18) mg/dl Creatinine (0.6-1.2) mg/dl Est Cr Clr Drug Dosing ml/min Est GFR ( Amer) Est GFR (Non-Af Amer) BUN/Creatinine Ratio (10-20) Glucose (70-99) mg/dl POC Glucose 216 H 198 H 188 H (70-99) Calcium (8.5-10.1) mg/dl Influenza Type A (PCR) (Neg) Influenza Type B (PCR) (Neg) 06/13/18 06/13/18 Range/Units 23:23 22:17 WBC (4.8-10.8) K/uL RBC (4.2-5.4) M/uL Hgb (12.0-16.0) g/dL Hct (37-47) % MCV (80-100) fL MCH (25-34) pg MCHC (32-36) g/dL RDW Std Deviation (36.4-46.3) fL RDW Coeff of Jackie (11.5-14.5) % Plt Count (130-400) K/uL MPV (7.4-10.4) fL Immature Gran % (Auto) % Neut % (Auto) % Lymph % (Auto) % [place] % (Auto) % Eos % (Auto) % Baso % (Auto) % Immature Gran # (Auto) (0.00-0.02) K/uL Neut # (Auto) (1.4-6.5) K/uL Lymph # (Auto) (1.2-3.4) K/uL [place] # (Auto) (0.11-0.59) K/uL Eos # (Auto) (0-0.5) K/uL Baso # (Auto) (0-0.2) K/uL Sodium (136-145) mmol/L Potassium (3.5-5.1) mmol/L Chloride (98-107) mmol/L Carbon Dioxide (21-32) mmol/L Anion Gap (3-11) BUN (7-18) mg/dl Creatinine (0.6-1.2) mg/dl Est Cr Clr Drug Dosing ml/min Est GFR ( Amer) Est GFR (Non-Af Amer) BUN/Creatinine Ratio (10-20) Glucose (70-99) mg/dl POC Glucose 206 H 288 H (70-99) Calcium (8.5-10.1) mg/dl Influenza Type A (PCR) (Neg) Influenza Type B (PCR) (Neg)
[2018-06-14] MEDS: ERTAPENEM SODIUM 1,000 MG in SODIUM CHLORIDE 0.9% 50 ML IV SCH (14:49)
[2018-06-14 16:11] LABS: Influenza A virus by PCR Neg for Influ A (Neg); Influenza B virus by PCR Neg for Influ B (Neg)
[2018-06-14] MEDS: MONTELUKAST SODIUM 10 MG TABLET PO SCH (20:37)
[2018-06-14] MEDS: FEXOFENADINE HCL 180 MG TAB PO SCH (20:37)
[2018-06-14] MEDS: [UNRECOGNIZED DRUG - REMARK] SCH (23:52)
[2018-06-15] MEDS: HEPARIN SOD 5,000 UNIT/0.5 ML VIAL SQ SCH (06:05)
[2018-06-15] MEDS: LEVOTHYROXINE SODIUM 150 MCG TABLET PO SCH (06:05)
[2018-06-15 06:38] LABS: Albumin Level 1.9 gm/dl (3.4-5.0); BUN Creatinine Ratio 9.8 (10-20); Creatinine Clr Calc Pharmacy 87.9 ml/min; Est GFR (African American) 119.3; Est GFR (Non-African American) 102.9; Potassium 3.5 mmol/L (3.5-5.1)
[2018-06-15 06:39] LABS: Albumin Globulin Ratio 0.5 (0.9-2); Bilirubin,Total 0.1 mg/dl (0.2-1); Total Protein 5.9 gm/dl (6.4-8.2)
[2018-06-15] MEDS: ALBUT/IPRATROP 3MG/0.5MG NEB 3 ML VIAL NEB PRN (07:01)
[2018-06-15] MEDS: ACETYLCYSTEINE 20% INHAL SOLN ***DISPENSED BY RESP. INH SCH (07:01)
[2018-06-15] MEDS: INSULIN ASPART 100 UNITS/ML 3 ML PEN SC SCH ×2 (08:17→13:18)
[2018-06-15] MEDS: CITALOPRAM 40 MG TAB PO SCH (08:17)
--- NOTE | 2018-06-15 11:35 | Discharge Summary ---
Date of Service date of admission - June 08, 2018 date of discharge - June 15, 2018 Admission HPI Per Admitting Provider 52 yo female with history of tracheostomy, chronic hypoxic respiratory failure on home o2, recurrent admissions for aspiration pneumonia, h/o ESBL E coli in sputum, Down's Syndrome, DM type I with insulin pump who presented to the ED due to hyperglycemia. The entire history was obtained from her caregiver at the bedside. The patient was doing quite well the past few weeks. She has been compliant with her Mucomyst BID, chest percussion therapy, albuterol treatments. No issues with dyspnea or excessive coughing or excessive sputum production from tracheostomy. Her sugars were noted to be high today by her caregiver, the pump beeped and sugars were 500's. Called her truck supervisor Dr. Maryann Crandall who recommended 10 units of regular insulin and come to the hospital for evaluation. In the ED her vitals were stable, low grade temperature. She was found to have a WBC of 24k with left shift, Cr up to 1.5 which was up from a baseline of 1.0. Sugar improved from 500's after the insulin dose. CXR showed bibasilar infiltrates, increased compared to prior. She was started on insulin infusion, treated with Zerbaxa IV for suspected pneumonia and admission requested. Per caregiver, she has been eating well. No complaints of dyspnea, dyspnea on exertion. No chest pain. No abdominal pain, no vomiting, no constipation or diarrhea. Principal Diagnosis bilateral pneumonia, likely due to aspiration Discharge Exam Constitutional no acute distress and not ill appearing dysmorphic features c/w Down's Syndrome ENMT Mouth: + oral mucosal abnormality (possible thrush plaques) and + macroglossia Respiratory normal respiratory effort, lungs clear to auscultation Cardiovascular Rate/Rhythm: regular rate and regular rhythm Heart Sounds: normal S1 and normal S2; no murmur Vessels: posterior tibial pulses present and dorsalis pedis pulses present; no JVD Chest (Breasts) Additional Comments: port - chest - clean, no erythema Gastrointestinal (Abdomen) normal bowel sounds, soft, nontender, no hepatosplenomegaly Skin no rashes, warm and dry Psychiatric Orientation: alert Discharge Data Allergies Allergy/AdvReac Type Severity Reaction Status Date / Time cefaclor Allergy Intermediate HIVES Verified 06/08/18 14:44 Cephalosporins Allergy Intermediate rash per Verified 06/08/18 14:44 mother sertraline Allergy Unknown INTOLERANCE Verified 06/08/18 14:44 Consultations infectious disease speech therapy Hospital Course (1) Aspiration pneumonia: Bilateral lower lobes on imaging. Received IV antibiotic therapy her entire stay. Sputum culture grew ESBL e.coli. She will receive 2 more days of IV ertapenem after discharge via her port. This will complete a 10-day course of IV antibiotics. Thickened liquids and modified diet will remain after discharge. At discharge she is on her home O2 amount of 3 liters continuously. (2) Chronic respiratory failure with hypoxia: Due to recurrent aspiration, pulmonary HTN, etc. Has tracheostomy, and uses 3 liters of NC O2 continuously. (3) Sepsis: 2nd to aspiration pneumonia. Resolved with IV antibiotics and supportive care. (4) Dysphagia: Patient will continue on nectar thick liquids and soft, bite-sized foods. Aspiration precautions at all times at home. (5) Type 1 diabetes: Our pharmacy glycemic team managed her T1DM the entire stay. She was on insulin infusion until the day of discharge at which point she was transitioned back to her insulin pump. Glycemic control was satisfactory while here. (6) Hx of tracheostomy: (7) Down syndrome: (8) UTI (urinary tract infection): 2nd to e.coli (different strain than the e.coli that grew in sputum). Antibiotics for pneumonia sufficed based on sensitivities from the urine. (9) Nausea vomiting and diarrhea: Patient developed these symptoms late in her stay. KUB x-ray was normal. Etiology was uncertain, but symptoms resolved in <24 hours. She was eating/drinking without difficulty prior to discharge. (10) Hypothyroidism: TSH was suppressed on 06/04/18. Her previous TSH was also suppressed. Consider LOWERING her synthroid dose to at least 137mcg daily with appropriate TSH testing later on. Will defer management to her thyroid physician. (11) CAMILLA (obstructive sleep apnea): (12) SOM (acute kidney injury): Peak creatinine was 1.5, improving to 0.6 at discharge. This was secondary to infection/sepsis. Total Time Total Time Spent Total Time Spent (In Minutes): 35 Total Time Includes: Examination of the Patient, Discharge Planning and Medication Reconciliation Discharge Plan Discharge Items Patient Disposition: Home - Home Health Services Reason For Visit: PNEUMONIA, HYPERGLYCEMIA Discharge Diagnosis: Pneumonia and UTI (urinary tract infection) - improved Discharge Goals: Diagnostic testing Activity: Resume your previous activity Non-emergency contact: Primary Care Provider and Floor Plan Adjuster Call non-emergency contact if: your symptoms worsen and your temperature is above 100.5 Follow-up/Referrals: Vladimir Salas MD [Physician] - (see Dr. Salas or one of his associates within 5-7 days) Vladimir Lucio MD [Primary Care Provider] - (see Dr. Lucio within 1-2 weeks) Diet: Carb Count or DM1 Diet Texture: Dental soft (bite-sized) Liquid Consistency: [place] thick Addtl Provider Instructions: From Marcell Sage - Hospitalist - Valorie was treated for a combination of urinary tract infection and aspiration pneumonia. She has improved gradually with use of IV antibiotics. Her diabetes was managed by our pharmacy glycemic management team. She was been transitioned back to her insulin pump at time of discharge. At this time we recommend the following - 1. 2 more doses of IV antibiotics (ertapenem) on Saturday, June 16 and June 17. These will be given via her port. 2. lactinex probiotics - 3 chewable tabs three times a day for 5 days. 3. nystatin oral solution - 5ml by mouth four times a day for 7 days. Swish and swallow. 4. continue routine trach care as previous. 5. continue insulin pump per previous settings. 6. continue oxygen via nasal cannula 4 liters continuously. Follow-up - * see Dr. Salas or one of his associates within 5-7 days * see Dr. Lucio within 1-2 weeks Return to [facility] if - * you have fevers over 100.5 degrees * you have worsening breathing, shortness of breath, or you have to turn up your oxygen above 4 liters * uncontrolled diabetes (either persistently high sugars over 350-400, or persistently LOW sugars under ~70) * severe diarrhea * any other concerns Prescriptions: New Oxygen Home Liters Per Minute .ROUTE .MEDSUPPLY Qty: 1 RF: 0 nystatin 100,000 unit/mL suspension 5 ml PO QID 7 Days Qty: 150 RF: 0 Continued levothyroxine 150 mcg Tablet 150 mcg PO DAILY RF: 0 Phos-Flur 0.02 % (0.044 % sod. fluoride) Solution 15 ml DENTAL HS RF: 0 Breo Ellipta 100-25 mcg/dose Blister With Device 1 inh INHALATION DAILY RF: 0 albuterol sulfate 90 mcg/actuation Hfa Aerosol Inhaler 2 puff INHALATION Q4 PRN (Reason: Shortness Of Breath) RF: 0 citalopram 40 mg Tablet 40 mg PO QAM RF: 0 montelukast 10 mg Tablet 10 mg PO PM RF: 0 calcium carbonate [Oyster Shell Calcium 500] 500 mg calcium (1,250 mg) Tablet 500 mg PO TID RF: 0 clotrimazole 1 % Cream 1 applic TOPICAL TID PRN (Reason: Rash) RF: 0 Glucagon Emergency Kit (human) 1 mg Recon Soln 1 mg IM DIRECTED PRN (Reason: Hypoglycemia) RF: 0 promethazine 12.5 mg Tablet 12.5 mg PO Q8H PRN (Reason: Nausea) RF: 0 acetylcysteine 200 mg/mL (20 %) Solution 4 ml INHALATION BID RF: 0 ergocalciferol (vitamin D2) [Vitamin D2] 50,000 unit Capsule 50,000 unit PO WK RF: 0 insulin aspart U-100 100 unit/mL solution 1 dose Continuous Subcutaneous Infusion UD RF: 0 omeprazole 20 mg Capsule,Delayed Release(Dr/Ec) 20 mg PO QAM RF: 0 Therems-M 27-0.4 mg Tablet 1 tab PO QAM RF: 0 atorvastatin 10 mg Tablet 10 mg PO HS RF: 0 fexofenadine [Allergy Relief (fexofenadine)] 180 mg Tablet 180 mg PO HS RF: 0 acetaminophen [Mapap (acetaminophen)] 325 mg tablet 650 mg PO Q4H PRN (Reason: Fever) RF: 0 albuterol sulfate 2.5 mg /3 mL (0.083 %) Solution For Nebulization 2.5 mg INHALATION Q4 PRN (Reason: chest congestion) RF: 0 Stand-Alone Forms: [facility] Discharge Orders: Discharge Order (Routine); Ordered 06/15/18 Ordered By: Marcell Sage Admission Data Admit Date/Time: 06/08/18 15:25 Attending Provider: Marcell Sage Admit Provider: Jassi Crandall Primary Care Provider: Vladimir Lucio. Other Providers: Marcell Sage ; Janessa Fan Service: Telemetry Other Interventions: Discharge Summary Assessment (RN) Last Done: 06/15/18 13:29 DC Date/Time DO NOT enter until pt leaves facility: 06/15/18 13:45
[2018-06-15] MEDS: ERTAPENEM SODIUM 1,000 MG in SODIUM CHLORIDE 0.9% 50 ML IV SCH (12:16)
== END 2018-06-15 13:45 | disposition home health service (06) | DRG 637 ==
LOC: ED 12:58 → 2E 15:25 → SUATTDRO 15:25 → 2E 17:23
DX: K21.9 Gastro-esophageal reflux disease without esophagitis; J69.0 Pneumonitis due to inhalation of food and vomit; D53.9 Nutritional anemia, unspecified; Z86.14 Personal history of Methicillin resistant Staphylococcus aureus infection; Q90.9 Down syndrome, unspecified; E03.9 Hypothyroidism, unspecified; E10.65 Type 1 diabetes mellitus with hyperglycemia; Z83.3 Family history of diabetes mellitus; N30.90 Cystitis, unspecified without hematuria; N17.9 Acute kidney failure, unspecified; B96.20 Unspecified Escherichia coli [E. coli] as the cause of diseases classified elsewhere; Z96.41 Presence of insulin pump (external) (internal); J44.9 Chronic obstructive pulmonary disease, unspecified; F32.9 Major depressive disorder, single episode, unspecified; A08.4 Viral intestinal infection, unspecified; R09.02 Hypoxemia; G47.33 Obstructive sleep apnea (adult) (pediatric)

== ENCOUNTER 2019-12-23 04:50 | Inpatient (IN) ==
--- NOTE | 2019-12-23 05:14 | Emergency Department Note ---
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 She has diffuse rhonchi though no overt wheezing on arrival. Suctioned and placed on humidified air with improvement in sats. CXR with multifocal PNA. WBC elevated consistent with sepsis. Given 1.5 L IV NSS along with fluids from meds and BP much improved and back to her baseline, thus further fluid resus held in setting of normal lactate. Zosyn/Vanco for aspiration pneumonia. Covid negative. She will be admitted to hospitalist service. 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 Vital Signs: reviewed and remarkable for Fever, hypoxia, hypotension Interventions: Saline lock, 1.5L IV NSS, Vanco IV, Zosyn IV Labs:Reviewed and remarkable for elevated WBC Imaging:X ray results are stated below per my interpretation: Chest: 1 view: Bilateral lower infiltrates extending to RML are new EKG:Per My Interpretation: Indication Sepsis: NSR 63 bpm, qtc 435. No Ectopy. No Ischemia. Compared to EKG 04/23/18, no significant changes. Cardiac/Tele Monitoring: Cardiac Monitoring: An Order was placed for continuous cardiac monitoring. The monitor shows a rate of 60 with a normal sinus rhythm. Consults:Dr Terry JAIN Hospitalist Plan: Disposition:Hospitalization. Condition: Fair Prescriptions:none PDMP: n/a History of Present Illness:54 yr old female with complicated PMH including Recurrent Aspiration Pneumonia, Recurrent sepsis, down syndrome, type 1 dm, seizures, hld, depression, camilla, mrsa, hypothyroid, gerd arrives for evaluation of hypoxia. Patient with increasing shortness of breath and found to by Hypoxic at halfway facility she lives at. Associated with cough and fever. Patient given Albuterol neb by EMS en route with improvement of shortness of breath. No vomiting, abdominal pain, chest pain, nor other reported symptoms. History limited as patient with intellectual disability but states she feels better and in no pain. ROS: Unable to obtain full ROS due to intellectual disability Past Medical History: Recurrent Aspiration Pneumonia, Recurrent sepsis, down syndrome, type 1 dm, seizures, hld, depression, camilla, mrsa, hypothyroid, gerd Past Surgical History: Tracheostomy, Port placement Family History: Unable to obtain Social History: Severely disabled living [facility] [place] [facility]. no etoh, drugs, tobacco Home Medications:See Below Allergies:Cefaclor, Cephalosporins, Sertraline Vitals:Blood Pressure: 81/50 , Pulse 80, RR 26, T 38.4C, O2 84% on 4L NC Physical Exam: GENERAL: Patient is chronically unwell appearing and in minimal distress. Warm to touch EYES: No scleral icterus, unremarkable pupils. ENT: Mucous membranes moist, no nasal congestion. NECK: No masses appreciated, nomeningismus, trachea is midline. RESPIRATORY: Tracheostomy, Diffuse rhonchi, mild dyspnea, on NC through trach, no wheezing, equal bilaterally CARDIOVASCULAR: Regular rate and rhythm.No murmurs, rubs, gallops appreciated. GASTROINTESTINAL: Abdomen soft, non-tender, no peritonitis.Bowel sounds positi ve.No masses appreciated. BACK: No midline tenderness, no CVA tenderness EXTREMITIES: Normal motion all extremities, no cyanosis, no edema. NEUROLOGIC: Alert, intellectual disability, no acute motor or sensory deficits, no focal weakness, cranial nerves grossly intact. SKIN: No rash, no jaundice, no diaphoresis. GCS: 15 ED Course: Times/Reassessments: multiple re-evals with improving vitals and patient comfortable. Critical Care: I have personally spent 35 minutes of critical care time in the direct management of this patient. Hypoxic respiratory failure with sepsis and hypotension secondary multifocal aspiration pneumonia. This was a life/limb threatening event. This 35 minutes is in excess of all separately billable procedures. Benitez May MD Past Med/Surg History Medical History Diabetes type 1, controlled History of allergic rhinitis History of athlete's foot History of bacterial pneumonia History of candidiasis of mouth History of chronic bronchitis History of community acquired pneumonia History of constipation History of diarrhea History of dysuria History of edema History of hyperkalemia History of hypotension History of nausea History of sunburn History of tinea corporis History of uncontrolled diabetes Pneumonia Surgical History History of bronchoscopy History of thoracotomy Hx of hand surgery S/P resection of aortic aneurysm Family History Other Diabetes Hypertension Denies family history of Colorectal cancer Social History Smoking Status: Never smoker Second Hand Exposure: No; Hx Alcohol Use: No Hx Substance Use: No Preferred Language: Gibraltarian Communication Ability: Effective Closing Agent Required: No Beliefs That Will Affect Care: None marital status: Single Current Living Situation: Personal Care Facility Current Living Situation Comment: [facility] - Residential skilled nursing current occupational status: disabled How many Children do You have: 0 Other Information That Helps Us Care for You: No Feels Safe at Home: Yes Safety Concerns: Feels Safe At This Time Seatbelt Use: always Assistive Devices: Oxygen - Continuous Allergies Allergies Allergy/AdvReac Type Severity Reaction Status Date / Time cefaclor Allergy Intermediate HIVES Verified 12/01/19 12:55 Cephalosporins Allergy Intermediate rash per Verified 12/01/19 12:55 mother sertraline AdvReac Mild INTOLERANCE Verified 12/01/19 12:55 Home Meds Home Medications Medication Instructions Recorded Confirmed soft lens rinse,store solution #118 ml 10/22/18 12/11/19 acetone (urine) test #25 ea 02/26/19 12/11/19 blood-glucose meter,continuous #1 ea 02/26/19 12/11/19 blood-glucose transmitter #1 ea 02/26/19 12/11/19 infusion set for insulin pump #2 ea 02/26/19 12/11/19 infusion set for insulin pump ea 02/26/19 12/11/19 insulin syringe,safetyneedle 1 mL #500 ea 02/26/19 12/11/19 29 gauge x 1/2" miscellaneous medical supply #1 ea 02/26/19 12/11/19 pen needle, diabetic 32 gauge x #10 ea 02/26/19 12/11/19 5/32" syringe (disposable) 5 mL #25 ea 02/26/19 12/11/19 blood sugar diagnostic #10 ea 04/07/19 12/11/19 acetaminophen [Tylenol] 650 mg PO Q4H PRN 12/23/19 12/23/19 insulin glargine [Basaglar FabiolaikPen See Rx Instructions SQ DAILY 12/23/19 12/23/19 U-100 Insulin] Previous Rx's Medication Instructions Recorded Oxygen Home #1 ea 06/15/18 promethazine 12.5 mg tablet 12.5 mg PO Q8 PRN #30 tab 12/23/18 albuterol sulfate 90 mcg/actuation 2 puffs INH QID PRN #18 gm 03/25/19 aerosol inhaler dextrose 40 % oral gel 20 gm PO .COMPLEX PRN #112.5 gm 03/25/19 fluconazole 150 mg tablet 150 mg PO DAILY PRN #7 tab 03/25/19 sodium chloride 0.9 % 273 ml IV BID #41775 ml 03/25/19 calcium carbonate 500 mg calcium 500 mg PO TID #270 tab 04/03/19 (1,250 mg) tablet glucose 4 gram chewable tablet 4 gm PO DAILY PRN #90 tab 04/08/19 clotrimazole-betamethasone 1 1 appln TOP BID PRN 28 Days #45 gm 05/13/19 %-0.05 % topical cream Novolog U-100 Insulin aspart 100 70 units SUBCUT .COMPLEX 90 Days 06/09/19 unit/mL subcutaneous solution #70 ml NS atorvastatin 10 mg tablet 10 mg PO HS #90 tab 07/02/19 citalopram 40 mg tablet 40 mg PO QAM #30 tab 07/20/19 fexofenadine 180 mg tablet 180 mg PO HS #30 tab 07/20/19 montelukast 10 mg tablet 10 mg PO PM #30 tab 07/20/19 multivitamin,zv-btcc-xbysrruq 27 1 tab PO DAILY #30 tab 07/20/19 mg-0.4 mg tablet omeprazole 20 mg capsule,delayed 20 mg PO QAM #90 cap 07/20/19 release fluoride (sodium) 15 ml DENTAL HS #473 ml 08/18/19 prednisone 10 mg tablet 10 mg PO DAILY #30 tab 06/02/20 levothyroxine 125 mcg tablet 125 mcg PO DAILY #90 tab 08/21/19 aspirin 81 mg tablet,delayed 81 mg PO .qod #45 tab 09/30/19 release amoxicillin 500 mg-potassium 1 tab PO BID #60 tab 10/27/19 clavulanate 125 mg tablet fluticasone furoate 100 1 inh INHALATION DAILY #1 inhaler 10/27/19 mcg-vilanterol 25 mcg/dose inhalation powder sulfamethoxazole 800 1 tab PO DAILY #30 tab 10/27/19 mg-trimethoprim 160 mg tablet albuterol sulfate See Rx Instructions .ROUTE 11/12/19 .COMPLEX #360 ml glucagon HCl 1 mg/mL solution for See Rx Instructions SUBCUT ONCE #1 11/17/19 injection ea acetylcysteine 200 mg/mL (20 %) 4 ml INHALATION BID #240 ml 11/19/19 solution furosemide 20 mg tablet 20 mg PO DAILY PRN #30 tab 11/24/19 alcohol swabs 1 pad TOPICAL UD #200 ea 11/25/19 doxycycline hyclate 100 mg capsule 100 mg PO .COMPLEX #30 cap 11/25/19 donepezil 5 mg tablet 5 mg PO DAILY #30 tab 12/11/19 cholecalciferol (vitamin D3) 100 200 mcg PO DAILY #60 cap 12/21/19 mcg (4,000 unit) capsule Results & Data (ED) Vital Signs Vital Signs - 24 hr 12/23/19 05:02 12/23/19 05:04 12/23/19 05:17 Temperature 38.4 C H Temperature Source Rectal Pulse Rate 88 87 91 H Pulse Rate [Apical] Pulse Rate from SpO2 Sensor 88 87 Respiratory Rate 31 H 27 H Respiratory Effort / Characteristics Non-Labored Short of Breath Respiratory Depth Normal Respiratory Pattern Regular Tachypnea Blood Pressure 88/58 L 88/58 L Blood Pressure Mean 69 68 Pulse Oximetry 96 94 93 Oxygen Delivery Method Nasal Cannula Trach Collar Oxygen Flow Rate 4 Sepsis Recent Fever Within 48 Hours Yes Sepsis New/Unexplained Change in Mental Status No Sepsis Action Taken by Nursing Physician Notified 12/23/19 05:20 12/23/19 05:30 12/23/19 05:31 Temperature 38.4 C H Temperature Source Rectal Pulse Rate 90 88 Pulse Rate [Apical] Pulse Rate from SpO2 Sensor 90 88 Respiratory Rate 28 H 26 H Respiratory Effort / Characteristics Non-Labored Spontaneous Short of Breath Respiratory Depth Normal Respiratory Pattern Tachypnea Blood Pressure 98/68 L Blood Pressure Mean 73 Pulse Oximetry 90 94 Oxygen Delivery Method Nasal Cannula Trach Collar Oxygen Flow Rate 4 Sepsis Recent Fever Within 48 Hours Sepsis New/Unexplained Change in Mental Status Sepsis Action Taken by Nursing 12/23/19 05:50 12/23/19 05:55 12/23/19 06:00 Temperature Temperature Source Pulse Rate 84 83 Pulse Rate [Apical] 82 Pulse Rate from SpO2 Sensor 84 83 Respiratory Rate 22 23 21 Respiratory Effort / Characteristics Non-Labored Spontaneous Respiratory Depth Respiratory Pattern Blood Pressure 101/64 102/52 L Blood Pressure Mean 69 70 Pulse Oximetry 94 93 91 Oxygen Delivery Method Nasal Cannula Oxygen Flow Rate 5 Sepsis Recent Fever Within 48 Hours Sepsis New/Unexplained Change in Mental Status Sepsis Action Taken by Nursing 12/23/19 06:01 Temperature Temperature Source Pulse Rate 82 Pulse Rate [Apical] Pulse Rate from SpO2 Sensor 82 Respiratory Rate 26 H Respiratory Effort / Characteristics Respiratory Depth Respiratory Pattern Blood Pressure Blood Pressure Mean Pulse Oximetry 91 Oxygen Delivery Method Oxygen Flow Rate Sepsis Recent Fever Within 48 Hours Sepsis New/Unexplained Change in Mental Status Sepsis Action Taken by Nursing Laboratory Data Result diagrams: 12/23/19 05:15 12/23/19 05:15 Lab Results 12/23/19 12/23/19 12/23/19 Range/Units 05:15 05:15 05:15 WBC 19.84 H (4.8-10.8) K/uL RBC 3.14 L (4.2-5.4) M/uL Hgb 10.6 L (12.0-16.0) g/dL Hct 32.4 L (37-47) % MCV 103.2 H (80-100) fL MCH 33.8 (25-34) pg MCHC 32.7 (32-36) g/dL RDW Std Deviation 54.4 H (36.4-46.3) fL RDW Coeff of Jackie 14.4 (11.5-14.5) % Plt Count 192 (130-400) K/uL MPV 10.2 (7.4-10.4) fL Immature Gran % (Auto) 0.3 % Neut % (Auto) 88.0 % Lymph % (Auto) 6.5 % Harper % (Auto) 5.1 % Eos % (Auto) 0.0 % Baso % (Auto) 0.1 % Neut # (Auto) 17.48 H (1.4-6.5) K/uL Lymph # (Auto) 1.28 (1.2-3.4) K/uL Harper # (Auto) 1.01 H (0.11-0.59) K/uL Eos # (Auto) 0.00 (0-0.5) K/uL Baso # (Auto) 0.01 (0-0.2) K/uL Immature Gran # (Auto) 0.06 H (0.00-0.02) K/uL PT 11.4 (9.0-12.0) Seconds INR 1.1 (0.9-1.1) Sodium (136-145) mmol/L Potassium (3.5-5.1) mmol/L Chloride (98-107) mmol/L Carbon Dioxide (21-32) mmol/L Anion Gap (3-11) BUN (7-18) mg/dl Creatinine (0.6-1.2) mg/dl Est Cr Clr Drug Dosing Est GFR ( Amer) Est GFR (Non-Af Amer) BUN/Creatinine Ratio (10-20) Glucose (70-99) mg/dl Lactate 0.9 (0.4-2.0) mmol/L Calcium (8.5-10.1) mg/dl Magnesium (1.8-2.4) mg/dl Total Bilirubin (0.2-1) mg/dl Direct Bilirubin (0-0.2) mg/dl AST (15-37) U/L ALT (12-78) U/L Alkaline Phosphatase (45-117) U/L Troponin I (0-0.045) ng/ml Total Protein (6.4-8.2) gm/dl Albumin (3.4-5.0) gm/dl TSH (0.300-4.500) uIu/ml Urine Color Urine Appearance (Clear) Urine pH (4.5-7.5) Ur Specific [place] (1.000-1.030) Urine Protein (Negative) Urine Glucose (UA) (Negative) Urine Ketones (Negative) Urine Blood (Negative) Urine Nitrite (Negative) Urine Bilirubin (Negative) Urine Urobilinogen (Negative) Ur Leukocyte Esterase (Negative) Urine WBC (Auto) (0-5) /hpf Urine RBC (Auto) (0-4) /hpf U Hyaline Cast (Auto) (0-5) /lpf U Epithel Cells (Auto) (0-5) /lpf Urine Bacteria (Auto) (Negative) COVID-19 Eval Order COVID-19 PCR (Negative) 12/23/19 12/23/19 12/23/19 Range/Units 05:15 05:15 05:27 WBC (4.8-10.8) K/uL RBC (4.2-5.4) M/uL Hgb (12.0-16.0) g/dL Hct (37-47) % MCV (80-100) fL MCH (25-34) pg MCHC (32-36) g/dL RDW Std Deviation (36.4-46.3) fL RDW Coeff of Jackie (11.5-14.5) % Plt Count (130-400) K/uL MPV (7.4-10.4) fL Immature Gran % (Auto) % Neut % (Auto) % Lymph % (Auto) % Harper % (Auto) % Eos % (Auto) % Baso % (Auto) % Neut # (Auto) (1.4-6.5) K/uL Lymph # (Auto) (1.2-3.4) K/uL Harper # (Auto) (0.11-0.59) K/uL Eos # (Auto) (0-0.5) K/uL Baso # (Auto) (0-0.2) K/uL Immature Gran # (Auto) (0.00-0.02) K/uL PT (9.0-12.0) Seconds INR (0.9-1.1) Sodium 141 (136-145) mmol/L Potassium 4.3 (3.5-5.1) mmol/L Chloride 107 (98-107) mmol/L Carbon Dioxide 30 (21-32) mmol/L Anion Gap 4.0 (3-11) BUN 25 H (7-18) mg/dl Creatinine 1.31 H (0.6-1.2) mg/dl Est Cr Clr Drug Dosing Not Reportable Est GFR ( Amer) 53.0 Est GFR (Non-Af Amer) 45.7 BUN/Creatinine Ratio 19.1 (10-20) Glucose 260 H (70-99) mg/dl Lactate (0.4-2.0) mmol/L Calcium 8.3 L (8.5-10.1) mg/dl Magnesium 1.7 L (1.8-2.4) mg/dl Total Bilirubin 0.4 (0.2-1) mg/dl Direct Bilirubin 0.1 (0-0.2) mg/dl AST 22 (15-37) U/L ALT 49 (12-78) U/L Alkaline Phosphatase 116 (45-117) U/L Troponin I < 0.015 (0-0.045) ng/ml Total Protein 6.5 (6.4-8.2) gm/dl Albumin 2.4 L (3.4-5.0) gm/dl TSH 0.197 L (0.300-4.500) uIu/ml Urine Color Yellow Urine Appearance Clear (Clear) Urine pH 5.0 (4.5-7.5) Ur Specific [place] 1.025 (1.000-1.030) Urine Protein 1+ H (Negative) Urine Glucose (UA) 2+ H (Negative) Urine Ketones Trace H (Negative) Urine Blood Negative (Negative) Urine Nitrite Negative (Negative) Urine Bilirubin Negative (Negative) Urine Urobilinogen Negative (Negative) Ur Leukocyte Esterase Negative (Negative) Urine WBC (Auto) 1-5 (0-5) /hpf Urine RBC (Auto) 0-4 (0-4) /hpf U Hyaline Cast (Auto) 1-5 (0-5) /lpf U Epithel Cells (Auto) 5-10 H (0-5) /lpf Urine Bacteria (Auto) Negative (Negative) COVID-19 Eval Order Covid19 Done at [facility] COVID-19 PCR (Negative) 12/23/19 Range/Units 05:27 WBC (4.8-10.8) K/uL RBC (4.2-5.4) M/uL Hgb (12.0-16.0) g/dL Hct (37-47) % MCV (80-100) fL MCH (25-34) pg MCHC (32-36) g/dL RDW Std Deviation (36.4-46.3) fL RDW Coeff of Jackie (11.5-14.5) % Plt Count (130-400) K/uL MPV (7.4-10.4) fL Immature Gran % (Auto) % Neut % (Auto) % Lymph % (Auto) % Harper % (Auto) % Eos % (Auto) % Baso % (Auto) % Neut # (Auto) (1.4-6.5) K/uL Lymph # (Auto) (1.2-3.4) K/uL Harper # (Auto) (0.11-0.59) K/uL Eos # (Auto) (0-0.5) K/uL Baso # (Auto) (0-0.2) K/uL Immature Gran # (Auto) (0.00-0.02) K/uL PT (9.0-12.0) Seconds INR (0.9-1.1) Sodium (136-145) mmol/L Potassium (3.5-5.1) mmol/L Chloride (98-107) mmol/L Carbon Dioxide (21-32) mmol/L Anion Gap (3-11) BUN (7-18) mg/dl Creatinine (0.6-1.2) mg/dl Est Cr Clr Drug Dosing Est GFR ( Amer) Est GFR (Non-Af Amer) BUN/Creatinine Ratio (10-20) Glucose (70-99) mg/dl Lactate (0.4-2.0) mmol/L Calcium (8.5-10.1) mg/dl Magnesium (1.8-2.4) mg/dl Total Bilirubin (0.2-1) mg/dl Direct Bilirubin (0-0.2) mg/dl AST (15-37) U/L ALT (12-78) U/L Alkaline Phosphatase (45-117) U/L Troponin I (0-0.045) ng/ml Total Protein (6.4-8.2) gm/dl Albumin (3.4-5.0) gm/dl TSH (0.300-4.500) uIu/ml Urine Color Urine Appearance (Clear) Urine pH (4.5-7.5) Ur Specific [place] (1.000-1.030) Urine Protein (Negative) Urine Glucose (UA) (Negative) Urine Ketones (Negative) Urine Blood (Negative) Urine Nitrite (Negative) Urine Bilirubin (Negative) Urine Urobilinogen (Negative) Ur Leukocyte Esterase (Negative) Urine WBC (Auto) (0-5) /hpf Urine RBC (Auto) (0-4) /hpf U Hyaline Cast (Auto) (0-5) /lpf U Epithel Cells (Auto) (0-5) /lpf Urine Bacteria (Auto) (Negative) COVID-19 Eval Order COVID-19 PCR NEGATIVE (Negative) Administered Medications Acetylcysteine (Acetylcysteine 20% Inhal Soln 4ml Dispensed By Resp.) 4 ml INH BIDR [facility] Stop: 01/22/20 09:59 Last Admin: 12/23/19 19:22 Dose: 4 ml Documented by: [id number] Admin: 12/23/19 10:00 Dose: 4 ml Documented by: [id number] Albuterol (Albuterol 0.083% Nebu Soln 3 Ml Vial) 2.5 mg NEB QIDR PRN PRN Reason: Shortness Of Breath Or Wheezing Stop: 01/22/20 09:40 Last Admin: 12/23/19 19:22 Dose: 2.5 mg Documented by: [id number] Admin: 12/23/19 10:00 Dose: 2.5 mg Documented by: [id number] Atorvastatin Calcium (Atorvastatin 10 Mg Tab) 10 mg PO HS [facility] Stop: 01/22/20 20:59 Last Admin: 12/23/19 20:30 Dose: 10 mg Documented by: [id number] Calcium Carbonate (Calcium Carbonate 1250mg Tab) 1,250 mg PO TID [facility]ON[facility] Stop: 01/22/20 09:59 Last Admin: 12/23/19 20:30 Dose: 1,250 mg Documented by: [id number] Admin: 12/23/19 13:02 Dose: Not Given Documented by: [id number] Admin: 12/23/19 11:56 Dose: 1,250 mg Documented by: [id number] Citalopram Hydrobromide (Citalopram 40 Mg Tab) 40 mg PO QAM [facility] Stop: 01/22/20 09:59 Last Admin: 12/23/19 11:56 Dose: 40 mg Documented by: [id number] Donepezil HCl (Donepezil Hcl 5 Mg Tab) 5 mg PO DAILY [facility] Stop: 01/22/20 09:29 Last Admin: 12/23/19 11:56 Dose: 5 mg Documented by: [id number] Enoxaparin Sodium (Enoxaparin Inj 40 Mg/0.4 Ml Syr) 40 mg SQ DAILY [facility] Stop: 01/22/20 09:59 Last Admin: 12/23/19 11:58 Dose: 40 mg Documented by: [id number] Fexofenadine HCl (Fexofenadine Hcl 180 Mg Tab) 180 mg PO HS [facility] Stop: 01/22/20 20:59 Last Admin: 12/23/19 20:30 Dose: 180 mg Documented by: [id number] Fluticasone/Vilanterol (Fluticasone/Vilanterol 100/25mcg 14 Puffs/Inhaler) 1 puffs INH DAILY [facility] Stop: 01/22/20 09:59 Last Admin: 12/23/19 11:57 Dose: 1 puffs Documented by: [id number] Piperacillin Sod/Tazobactam (Sod 3.375 gm/ Dextrose) 115 mls @ 28.75 mls/hr IV Q8H [facility]; Protocol Stop: 12/30/19 11:59 Last Infusion: 12/24/19 00:37 Dose: 0 mls/hr Documented by: [id number] Admin: 12/23/19 20:33 Dose: 28.8 mls/hr Documented by: [id number] Infusion: 12/23/19 15:58 Dose: 0 mls/hr Documented by: [id number] Admin: 12/23/19 11:56 Dose: 28.8 mls/hr Documented by: [id number] Insulin Aspart (Insulin Aspart 100 Units/Ml 3 Ml Pen) 0 units SC ACHS [facility] Stop: 01/22/20 11:29 Last Admin: 12/23/19 21:57 Dose: 5 units Documented by: [id number] Cosigned by: [id number] Admin: 12/23/19 17:38 Dose: 3 units Documented by: [id number] Cosigned by: [id number] Admin: 12/23/19 12:25 Dose: 4 units Documented by: [id number] Cosigned by: [id number] Insulin Aspart (Insulin Aspart 100 Units/Ml 3 Ml Pen) 0 units SC 0000,0400 [facility] Stop: 12/24/19 04:01 Last Admin: 12/24/19 00:15 Dose: 3 units Documented by: [id number] Cosigned by: [id number] Levothyroxine Sodium (Levothyroxine Sodium 112 Mcg Tablet) 112 mcg PO DAILYBB [facility] Stop: 01/22/20 09:59 Last Admin: 12/23/19 11:59 Dose: 112 mcg Documented by: [id number] Montelukast Sodium (Montelukast Sodium 10 Mg Tablet) 10 mg PO PM [facility] Stop: 01/22/20 20:59 Last Admin: 12/23/19 20:30 Dose: 10 mg Documented by: [id number] Prednisone (Prednisone 10 Mg Tablet) 10 mg PO DAILY [facility] Stop: 01/22/20 08:59 Last Admin: 12/23/19 11:57 Dose: 10 mg Documented by: [id number] Discontinued Medications Acetaminophen (Acetaminophen 500 Mg Tab) 1,000 mg PO NOW STA Stop: 12/23/19 05:25 Last Admin: 12/23/19 05:28 Dose: 1,000 mg Documented by: [id number] Sodium Chloride (Nss 1000ml) 1,000 mls @ 999 mls/hr IV .Q1H1M ONE Stop: 12/23/19 06:24 Last Infusion: 12/23/19 06:35 Dose: 0 mls/hr Documented by: [id number] Admin: 12/23/19 05:28 Dose: 999 mls/hr Documented by: [id number] Piperacillin Sod/Tazobactam Sod (Zosyn) 4.5 gm in 120 mls @ 240 mls/hr IV NOW ONE Stop: 12/23/19 05:58 Last Infusion: 12/23/19 06:57 Dose: 0 mls/hr Documented by: [id number] Admin: 12/23/19 06:09 Dose: 240 mls/hr Documented by: [id number] Vancomycin HCl 1,500 mg/ (Sodium Chloride) 530 mls @ 200 mls/hr IV NOW ONE Stop: 12/23/19 07:58 Last Infusion: 12/23/19 10:04 Dose: 0 mls/hr Documented by: [id number] Admin: 12/23/19 06:41 Dose: 200 mls/hr Documented by: [id number] Sodium Chloride (Nss 1000ml) 500 mls @ 999 mls/hr IV .Q31M ONE Stop: 12/23/19 06:25 Last Infusion: 12/23/19 07:05 Dose: 0 mls/hr Documented by: [id number] Admin: 12/23/19 06:34 Dose: 999 mls/hr Documented by: [id number] Sodium Chloride (Nss 1000ml) 1,000 mls @ 80 mls/hr IV .[id number] [facility] Stop: 12/23/19 21:21 Last Infusion: 12/23/19 22:19 Dose: 0 mls/hr Documented by: [id number] Admin: 12/23/19 09:46 Dose: 80 mls/hr Documented by: [id number] Insulin Glargine (Insulin Glargine Solostar 100 Units/Ml 3 Ml Pen) 19 units SC NOW ONE Stop: 12/23/19 09:31 Last Admin: 12/23/19 09:47 Dose: 19 units Documented by: [id number] Cosigned by: [id number] Discharge Plan Visit Data Chief Complaint: Shortness of Breath/Dyspnea Stated Complaint: shortness of breath ED Provider: Benitez May Discharge Problem: Multifocal pneumonia, Hypoxia, Sepsis, Acute hypotension Patient Disposition: Admitted As Inpatient Discharge Instructions Interventions: ED Discharge Assessment Last Done: 12/23/19 08:37 Discharge Problem: Sepsis Qualifiers: Sepsis type: sepsis due to unspecified organism Sepsis acute organ dysfunction status: with acute organ dysfunction Severe sepsis acute organ dysfunction type: acute respiratory failure Acute respiratory failure type: with hypoxia Severe sepsis shock status: without septic shock Qualified Code(s): A41.9 - Sepsis, unspecified organism
[2019-12-23] MEDS ORDERED: ACETAMINOPHEN 500 MG TAB PO STA (05:24)
[2019-12-23] MEDS ORDERED: SODIUM CHLORIDE 0.9% 1000ML 1,000 ML IV ONE (05:24)
[2019-12-23 05:26] LABS: Basophils # (auto) 0.01 K/uL (0-0.2); Basophils % (auto) 0.1 %; Hematocrit (blood only) 32.4 % (37-47); Hemoglobin 10.6 g/dL (12.0-16.0); Immature Granulocytes # (auto) 0.06 K/uL (0.00-0.02); Immature Granulocytes % (auto) 0.3 %; Lymphocytes # (auto) 1.28 K/uL (1.2-3.4); Lymphocytes % (auto) 6.5 %; Mean Corpuscular Hemoglobin 33.8 pg (25-34); Mean Corpuscular Hgb Conc 32.7 g/dL (32-36); Mean Corpuscular Volume 103.2 fL (80-100); Mean Platelet Volume 10.2 fL (7.4-10.4); Monocytes # (auto) 1.01 K/uL (0.11-0.59); Monocytes % (auto) 5.1 %; Neutrophils # (auto) 17.48 K/uL (1.4-6.5); Platelet Count 192 K/uL (130-400); RDW Coefficient of Variation 14.4 % (11.5-14.5); RDW Standard Deviation 54.4 fL (36.4-46.3); Red Blood Count 3.14 M/uL (4.2-5.4); White Blood Count 19.84 K/uL (4.8-10.8)
[2019-12-23] MEDS ORDERED: PIPERACILLIN/TAZOBACTAM 4.5 GM/120 ML BAG IV ONE (05:29)
[2019-12-23] MEDS ORDERED: PIPERACILL/TAZOBAC CONSULT ACTIVE PRN ×2 (05:29→08:52)
[2019-12-23] MEDS ORDERED: VANCOMYCIN HCL 1,500 MG in SODIUM CHLORIDE 0.9% 500 ML IV ONE (05:29)
[2019-12-23] MEDS ORDERED: VANCOMYCIN CONSULT ACTIVE PRN ×2 (05:29→08:52)
[2019-12-23 05:36] LABS: INR 1.1 (0.9-1.1); Prothrombin Time 11.4 Seconds (9.0-12.0)
[2019-12-23 05:43] LABS: Alanine Aminotransferase 49 U/L (12-78); Albumin Level 2.4 gm/dl (3.4-5.0); Aspartate Aminotransferase 22 U/L (15-37); BUN Creatinine Ratio 19.1 (10-20); Bilirubin Direct 0.1 mg/dl (0-0.2); Blood Urea Nitrogen 25 mg/dl (7-18); Calcium 8.3 mg/dl (8.5-10.1); Carbon Dioxide 30 mmol/L (21-32); Chloride 107 mmol/L (98-107); Est GFR (Non-African American) 45.7; Glucose 260 mg/dl (70-99); Magnesium 1.7 mg/dl (1.8-2.4); Potassium 4.3 mmol/L (3.5-5.1); Sodium 141 mmol/L (136-145)
[2019-12-23 05:51] LABS: Appearance Urine Clear (Clear); Bacteria Urine Automated Negative (Negative); Bilirubin Urine Negative (Negative); Blood Urine Negative (Negative); Color Urine Yellow; Glucose Urine UA 2+ (Negative); Ketones Urine Trace (Negative); Leukocyte Esterase Urine Negative (Negative); Nitrite Urine Negative (Negative); Protein Urine 1+ (Negative); RBC Urine Automated 0-4 /hpf (0-4); Specific Gravity Urine 1.025 (1.000-1.030); Urobilinogen Urine Negative (Negative)
[2019-12-23 05:54] LABS: Alkaline Phosphatase 116 U/L (45-117); Bilirubin,Total 0.4 mg/dl (0.2-1); Thyroid Stimulating Hormone 0.197 uIu/ml (0.300-4.500); Total Protein 6.5 gm/dl (6.4-8.2); Troponin I < 0.015 ng/ml (0-0.045)
[2019-12-23] MEDS ORDERED: SODIUM CHLORIDE 0.9% 1000ML 500 ML IV ONE (05:55)
--- NOTE | 2019-12-23 06:49 | XRay Report ---
XR chest 1V portable CLINICAL HISTORY: sepsis COMPARISON STUDY: Chest radiograph March 12, 2019. FINDINGS: A tracheostomy tube and right subclavian central line are in place. Bibasilar consolidation has developed. Incidental note is made of a right-sided aortic arch. There is no pneumothorax. There are trace bilateral pleural effusions. There is pulmonary vascular congestion. There may be mild eso phageal dilatation. Old bilateral rib fractures are incidentally noted. IMPRESSION: 1. Bibasilar consolidation suggestive of pneumonia. Post treatment radiographs to ensure resolution r ecommended. 2. Pulmonary vascular congestion. 3. Trace bilateral pleural effusions. ACT 112: Negative or not required by law. Electronically signed by: Manny Gorman M.D. 12/23/2019 6:48 AM
--- NOTE | 2019-12-23 07:49 | History & Physical Report ---
Date of Service December 23, 2019 Assessment & Plan (1) Multifocal pneumonia: Patient will be on vancomycin and Zosyn sputum culture will be obtained blood cultures are pending previous history of ESBL E. coli child aspiration precautions continue mechanical soft diet with nectar thick liquids Patient has acute hypoxic respiratory failure present on admission likely secondary to pneumonia with background of chronic respiratory failure (2) Diabetes type 1, controlled: Patient will be on her insulin pump with sliding scale back up in pharmacy glycemic consult (3) Jeri's thyroiditis: Patient is typically maintained on Synthroid however her TSH is slightly low her Synthroid to be reduced from 125 to 112 mcg (4) Cognitive and neurobehavioral dysfunction: Patient has Down syndrome and recently was diagnosed with dementia continues on Aricept (5) Depression: Continues on citalopram (6) CAMILLA (obstructive sleep apnea): Patient typically has 4 L oxygen with humidified trach collar at night initially was felt she had positive pressure ventilation at night but this is e rroneous (7) Chronic obstructive pulmonary disease: pt is maintained on nebulizer medicines and continues on prednisone (8) Seizure disorder: This is by her history only she is currently not on any medications for this (9) DVT prophylaxis: Patient may Lovenox for DVT prevention Patient is DNR based upon POLST form from the chart History of Present Illness Primary Care Provider: Vladimir Lucio MD 54-year-old female who is was a chronic tracheostomy has a history of aspiration pneumonia including ESBL E. coli who presents with increased respiratory distress hypoxia and concern for pneumonia. Patient suffers from Down syndrome is cared for at a nursing facility through the [facility] patient developed increasing respiratory distress wheezing increased mucopurulent se cretions was brought to emergency department where she was found to have a right lower lobe pneumonia on chest x-ray a leukocytosis. She was tested for COVID which was negative. Was given vancomycin and Zosyn as she has a history of the ESBL organisms in the past. Patient is also diabetic wearing an insulin pump which is concurrently continued and infusion patient has little respiratory distress upon my evaluation. Allergies Allergy/AdvReac Type Severity Reaction Status Date / Time cefaclor Allergy Intermediate HIVES Verified 12/01/19 12:55 Cephalosporins Allergy Intermediate rash per Verified 12/01/19 12:55 mother sertraline AdvReac Mild INTOLERANCE Verified 12/01/19 12:55 Home Medications Home Medications Medication Instructions Recorded Confirmed Type Oxygen Home #1 ea 06/15/18 12/11/19 Rx soft lens rinse,store solution #118 ml 10/22/18 12/11/19 History promethazine 12.5 mg tablet 12.5 mg PO Q8 PRN #30 tab 12/23/18 12/23/19 Rx acetone (urine) test #25 ea 02/26/19 12/11/19 History blood-glucose meter,continuous #1 ea 02/26/19 12/11/19 History blood-glucose transmitter #1 ea 02/26/19 12/11/19 History infusion set for insulin pump #2 ea 02/26/19 12/11/19 History infusion set for insulin pump ea 02/26/19 12/11/19 History insulin syringe,safetyneedle 1 mL #500 ea 02/26/19 12/11/19 History 29 gauge x 1/2" miscellaneous medical supply #1 ea 02/26/19 12/11/19 History pen needle, diabetic 32 gauge x #10 ea 02/26/19 12/11/19 History 5/32" syringe (disposable) 5 mL #25 ea 02/26/19 12/11/19 History albuterol sulfate 90 mcg/actuation 2 puffs INH QID PRN #18 gm 03/25/19 12/23/19 Rx aerosol inhaler dextrose 40 % oral gel 20 gm PO .COMPLEX PRN #112.5 gm 03/25/19 12/23/19 Rx fluconazole 150 mg tablet 150 mg PO DAILY PRN #7 tab 03/25/19 12/23/19 Rx sodium chloride 0.9 % 273 ml IV BID #[id number] ml 03/25/19 12/23/19 Rx calcium carbonate 500 mg calcium 500 mg PO TID #270 tab 04/03/19 12/23/19 Rx (1,250 mg) tablet blood sugar diagnostic #10 ea 04/07/19 12/11/19 History glucose 4 gram chewable tablet 4 gm PO DAILY PRN #90 tab 04/08/19 12/23/19 Rx clotrimazole-betamethasone 1 1 appln TOP BID PRN 28 Days #45 gm 05/13/19 12/23/19 Rx %-0.05 % topical cream Novolog U-100 Insulin aspart 100 70 units SUBCUT .COMPLEX 90 Days 06/09/19 12/23/19 Rx unit/mL subcutaneous solution #70 ml NS atorvastatin 10 mg tablet 10 mg PO HS #90 tab 07/02/19 12/23/19 Rx citalopram 40 mg tablet 40 mg PO QAM #30 tab 07/20/19 12/23/19 Rx fexofenadine 180 mg tablet 180 mg PO HS #30 tab 07/20/19 12/23/19 Rx montelukast 10 mg tablet 10 mg PO PM #30 tab 07/20/19 12/23/19 Rx multivitamin,xd-troz-eknqswid 27 1 tab PO DAILY #30 tab 07/20/19 12/23/19 Rx mg-0.4 mg tablet omeprazole 20 mg capsule,delayed 20 mg PO QAM #90 cap 07/20/19 12/23/19 Rx release fluoride (sodium) 15 ml DENTAL HS #473 ml 08/18/19 12/23/19 Rx prednisone 10 mg tablet 10 mg PO DAILY #30 tab 08/18/19 12/23/19 Rx levothyroxine 125 mcg tablet 125 mcg PO DAILY #90 tab 08/21/19 12/23/19 Rx aspirin 81 mg tablet,delayed 81 mg PO .qod #45 tab 09/30/19 12/23/19 Rx release amoxicillin 500 mg-potassium 1 tab PO BID #60 tab 10/27/19 12/23/19 Rx clavulanate 125 mg tablet fluticasone furoate 100 1 inh INHALATION DAILY #1 inhaler 10/27/19 12/23/19 Rx mcg-vilanterol 25 mcg/dose inhalation powder sulfamethoxazole 800 1 tab PO DAILY #30 tab 10/27/19 12/23/19 Rx mg-trimethoprim 160 mg tablet albuterol sulfate See Rx Instructions .ROUTE 11/12/19 12/23/19 Rx .COMPLEX #360 ml glucagon HCl 1 mg/mL solution for See Rx Instructions SUBCUT ONCE #1 11/17/19 12/23/19 Rx injection ea acetylcysteine 200 mg/mL (20 %) 4 ml INHALATION BID #240 ml 11/19/19 12/23/19 Rx solution furosemide 20 mg tablet 20 mg PO DAILY PRN #30 tab 11/24/19 12/23/19 Rx alcohol swabs 1 pad TOPICAL UD #200 ea 11/25/19 12/23/19 Rx doxycycline hyclate 100 mg capsule 100 mg PO .COMPLEX #30 cap 11/25/19 12/23/19 Rx donepezil 5 mg tablet 5 mg PO DAILY #30 tab 12/11/19 12/23/19 Rx cholecalciferol (vitamin D3) 100 200 mcg PO DAILY #60 cap 12/21/19 12/23/19 Rx mcg (4,000 unit) capsule acetaminophen [Tylenol] 650 mg PO Q4H PRN 12/23/19 12/23/19 History insulin glargine [Basaglar KwikPen See Rx Instructions SQ DAILY 12/23/19 12/23/19 History U-100 Insulin] Past Med/Surg History Medical History Diabetes type 1, controlled History of allergic rhinitis History of athlete's foot History of bacterial pneumonia History of candidiasis of mouth History of chronic bronchitis History of community acquired pneumonia History of constipation History of diarrhea History of dysuria History of edema History of hyperkalemia History of hypotension History of nausea History of sunburn History of tinea corporis History of uncontrolled diabetes Pneumonia Surgical History History of bronchoscopy History of thoracotomy Hx of hand surgery S/P resection of aortic aneurysm Family History Other Diabetes Hypertension Denies family history of Colorectal cancer Social History Smoking Status: Never smoker Second Hand Exposure: No; Hx Alcohol Use: No Hx Substance Use: No Preferred Language: Spanish Communication Ability: Effective Risk And Compliance Analytics Director Required: No Beliefs That Will Affect Care: None marital status: Single Current Living Situation: Personal Care Facility Current Living Situation Comment: [facility] - Residential shelter current occupational status: disabled How many Children do You have: 0 Other Information That Helps Us Care for You: No Feels Safe at Home: Yes Safety Concerns: Feels Safe At This Time Seatbelt Use: always Assistive Devices: CPAP, Glasses and Oxygen - Continuous Review of Systems Review of Systems: Unobtainable due to cognitive status Patient's review of systems is difficult to obtain given her cognitive dysfunction Physical Exam Physical Exam: The patient appeared in no significant distress at this time she is obviously cognitive we limited Vital signs as documented. Head exam is normocephalic atraumatic no scleral icterus Neck is without JVD, thyromegaly, or carotid bruits. A metallic tracheostomy is in place Lungs are coarse bilaterally diminished at the bases right side worse than left Cardiac exam, Rhythm is regular.. Systolic murmur is heard Abdominal exam reveals normal bowel sounds, soft non tender, no masses Extremities are nonedematous and both pedal pulses are present Neurologic exam is alert and does follow commands according to her caregiver she is in her normal state Skin is without bruises or rashes Psychologically recently has been diagnosed with dementia Results & Data Results & Data ([facility]) Vital Signs (Past 12 Hours) Vital Signs Temp Pulse Pulse Resp BP Pulse Ox 12/23/19 06:01 82 26 H 91 12/23/19 06:00 83 21 102/52 L 91 12/23/19 05:55 84 23 101/64 93 12/23/19 05:50 82 22 94 12/23/19 05:31 88 26 H 94 12/23/19 05:30 90 28 H 98/68 L 90 12/23/19 05:20 101.1 F H 12/23/19 05:17 101.1 F H 91 H 27 H 88/58 L 93 12/23/19 05:04 87 88/58 L 94 12/23/19 05:02 88 31 H 96 chest x-ray shows right lower lobe pneumonia Code Status & VTE Plan VTE Prophylaxis Plan VTE Prophylaxis will be ordered: Yes PG Care Time/CCT Total # of Minutes Spent Total Time Spent with Patient: Total time spent is greater than 50% in coordination of care (as documented) at patient's floor/unit and/or counseling patient: Coding Level of Care Code 92223 Initial Inpt Care Lvl 3 Diagnoses Multifocal pneumonia J18.9 Diabetes type 1, controlled E10.9 Jeri's thyroiditis E06.3 Cognitive and neurobehavioral dysfunction F09; F07.89 Depression F32.9 CAMILLA (obstructive sleep apnea) G47.33 Chronic obstructive pulmonary disease J44.9 Seizure disorder G40.909 DVT prophylaxis Z29.9
[2019-12-23] MEDS ORDERED: GLUCAGON FOR INJ 1 MG VIAL SQ PRN ×2 (08:52→09:30)
[2019-12-23] MEDS ORDERED: INSULIN ASPART PER UNIT SQ SCH (08:52)
[2019-12-23] MEDS ORDERED: ACETAMINOPHEN 325 MG TAB PO PRN (08:52)
[2019-12-23] MEDS ORDERED: ONDANSETRON INJ 2 MG/ML 2 ML VIAL IV PRN (08:52)
[2019-12-23] MEDS ORDERED: GLUCOSE 40% GEL 15 GM TUBE PO PRN ×2 (08:52→09:30)
[2019-12-23] MEDS ORDERED: CARBOHYDRATES FOR HYPOGLYCEMIA PO PRN ×2 (08:52→09:30)
[2019-12-23] MEDS ORDERED: DEXTROSE 50% 50 ML SYRINGE IV PRN ×2 (08:52→09:30)
[2019-12-23] MEDS ORDERED: BLOOD GLUCOSE TRANSMITTER SCH (08:52)
[2019-12-23] MEDS ORDERED: INFUSION SET FOR INSULIN PUMP SCH (08:52)
[2019-12-23] MEDS ORDERED: SODIUM CHLORIDE 0.9% 1000ML 1,000 ML IV SCH (08:52)
[2019-12-23] MEDS ORDERED: GLUCOSE 10 TABS/TUBE PO PRN ×2 (08:52→09:30)
[2019-12-23] MEDS ORDERED: ALBUTEROL HFA 8 GM INHALER INH PRN (08:52)
[2019-12-23] MEDS ORDERED: PATIENT'S HEIGHT AND/OR WEIGHT NEEDED SCH (09:00)
[2019-12-23] MEDS ORDERED: INSULIN GLARGINE SOLOSTAR 100 UNITS/ML 3 ML PEN SC ONE (09:30)
[2019-12-23] MEDS: ACETYLCYSTEINE 20% INHAL SOLN 4ML ***DISPENSED BY RESP. INH SCH ×2 (10:00→19:22)
[2019-12-23] MEDS: ALBUTEROL 0.083% NEBU SOLN 3 ML VIAL NEB PRN ×2 (10:00→19:22)
[2019-12-23] MEDS ORDERED: PHARMACY GLYCEMIC MGMT CONSULT PRN (10:16)
[2019-12-23] MEDS: PIPERACILLIN/TAZOBACTAM 3.375 GM in DEXTROSE 5% 100 ML IV SCH ×2 (11:56→20:33)
[2019-12-23] MEDS: CALCIUM CARBONATE 1250MG TAB PO SCH ×3 (11:56→20:30)
[2019-12-23] MEDS: DONEPEZIL HCL 5 MG TAB PO SCH (11:56)
[2019-12-23] MEDS: CITALOPRAM 40 MG TAB PO SCH (11:56)
[2019-12-23] MEDS: FLUTICASONE/VILANTEROL 100/25MCG 14 PUFFS/INHALER INH SCH (11:57)
[2019-12-23] MEDS: predniSONE 10 MG TABLET PO SCH (11:57)
[2019-12-23] MEDS: ENOXAPARIN INJ 40 MG/0.4 ML SYR SQ SCH (11:58)
[2019-12-23] MEDS: LEVOTHYROXINE SODIUM 112 MCG TABLET PO SCH (11:59)
[2019-12-23] MEDS: INSULIN ASPART 100 UNITS/ML 3 ML PEN SC SCH ×3 (12:25→21:57)
--- NOTE | 2019-12-23 13:22 | Pharmacy Report ---
Pharmacy Glycemic Short Note 2 - Date of Service December 23, 2019 - Glycemic Short BSG Results (Last 24 hours): 12/23/19 12/23/19 05:15 11:43 Glucose 260 H POC Glucose 246 H OUTPATIENT ANTIDIABETIC REGIMEN: * Insulin pump + CGM * Basal Rates: * 0000: 0.725 units/hr * 0330: 0.450 units/hr * 0600: 0.725 units/hr * 0900: 0.950 units/hr * 2100: 0.75 units/hr * Carb Ratio per fdc list 1:10 * A1c 8.2% 11/27/19 ASSESSMENT: * Ms. Early is a type 1 diabetic admitted with multifocal pneumonia, known to glycemic service, typically maintained on insulin pump outpatient and changed to basal/bolus or insulin infusion on admission as patient unable to make own pump adjustments * Discussed with provider would like to attempt basal/bolus regimen rather than insulin infusion- lantus 19 units x 1 this AM * Outpatient provider notes reviewed, patient is not corrected outpatient unless BSG >250 mg/dL, will set a looser goal range of 150-200 to avoid overcorrection. Will start with correction factor of 20, carb ratio of 10 as used in the past. * Patient does have less of a basal requirement overnight and current lantus dose should provide ~0.79 units/hr, therefore will get overnight checks for monitoring PLAN FOR INPATIENT GLYCEMIC CONTROL: * Hold outpatient oral diabetes medications * Basal insulin * Lantus 19 units x 1 * Bolus insulin * NovoLog per scale ACHS or Q6hrs while NPO * Goal Range: Low 150 mg/dL - High 200 mg/dL * Correction Factor: 20 mg/dL/unit * Nutritional / Prandial insulin per carb ratio of 1 unit per 10 grams CHO consumed
--- NOTE | 2019-12-23 13:28 | Pharmacy Report ---
Pharmacy Abx Initial Consult - Date of Service December 23, 2019 - Pharmacy Dosing Scope Date of Consult: 12/22 Consultation requested by: Dr. Stewart Pharmacy is consulted to initiate vancomycin/zosyn dosing therapy, order appropriate labs and adjust drug dose/frequency. - Subjective The patient is a 54 year old F admitted on 12/23/19 07:46. - Objective Height: 4 ft 11 in Weight: 66.5 kg Vital Signs (Past 12hrs): Vital Signs Temp Pulse Pulse Resp BP BP Pulse Ox 12/23/19 11:43 37.0 C 62 18 93/58 L 89 L 12/23/19 10:01 61 20 99 12/23/19 08:52 65 12/23/19 08:46 37 C 63 22 90/56 L 95 12/23/19 08:00 70 18 95/64 L 92 12/23/19 06:01 82 26 H 91 12/23/19 06:00 83 21 102/52 L 91 12/23/19 05:55 84 23 101/64 93 12/23/19 05:50 82 22 94 12/23/19 05:31 88 26 H 94 12/23/19 05:30 90 28 H 98/68 L 90 12/23/19 05:20 38.4 C H 12/23/19 05:17 38.4 C H 91 H 27 H 88/58 L 93 12/23/19 05:04 87 88/58 L 94 12/23/19 05:02 88 31 H 96 Lab Results (24hrs): Laboratory Tests (24 Hours) 12/23/19 12/23/19 05:15 05:15 WBC 19.84 H Neut # (Auto) 17.48 H Creatinine 1.31 H Est Cr Clr Drug Dosing Not Reportable Micro Results: 12/23/19 05:49 Aerobic Blood Culture - Pending Blood Anaerobic Blood Culture - Pending 12/23/19 05:15 Aerobic Blood Culture - Pending Blood Anaerobic Blood Culture - Pending - Risk Factors for Resistance * Resident in a care home or extended-care facility * Hx MDRO: ESBL E. coli - Assessment & Plan Assessment 54 year old F with PMH including type 1 diabetes, hypothyroidism, Down Syndrome, hx of asp. pneumonia, trach admitted for multifocal pneumonia. Patient has a history of ESBL E. coli from trach. Currently on vancomycin/zosyn. Did discuss with provider change from zosyn to carbapenem, will await sputum culture. MRSA nasal swab pending. SCR 1.31 (slightly elevated from previous visits), WBC 19, Tmax 38.4 C. Plan Vancomycin IV * Estimated PK Parameters: Vd 0.65 L/kg, Beau 0.039 hr-1, t1/2 17.7 hr * Loading dose: 1500 mg (22 mg/kg) * Maintenance dose: 1000 mg IV (15mg/kg) every 16 hours * Goal trough level 15-20 mcg/mL * Trough will be ordered tomorrow if continued Piperacillin/tazobactam * 4.5 g bolus administered over 30 minutes, then 3.375 g IV extended infusion every 8 hours for CrCl greater than 20 mL/min * Peak and trough level ordered for []/[]/[] around the [] dose. Pharmacy will continue to follow and will adjust dose/frequency as necessary. Thank you.
--- NOTE | 2019-12-23 14:38 | Electrocardiogram Report ---
Test Reason : Blood Pressure : / mmHG Vent. Rate : 088 BPM Atrial Rate : 088 BPM P-R Int : 126 ms QRS Dur : 086 ms QT Int : 372 ms P-R-T Axes : 043 058 028 degrees QTc Int : 450 ms Poor data quality, interpretation may be adversely affected Normal sinus rhythm Possible Left atrial enlargement Borderline ECG When compared with ECG of 02-MAY-2018 18:32, No significant change was found Confirmed by Sagar Hughes ([id number]) on 12/23/2019 2:38:39 PM Referred By: REFERRED SELF Confirmed By:Pepe Hughes
[2019-12-23] MEDS: FEXOFENADINE HCL 180 MG TAB PO SCH (20:30)
[2019-12-23] MEDS: ATORVASTATIN 10 MG TAB PO SCH (20:30)
[2019-12-23] MEDS: MONTELUKAST SODIUM 10 MG TABLET PO SCH (20:30)
[2019-12-23] MEDS ORDERED: VANCOMYCIN HCL 1,000 MG in SODIUM CHLORIDE 0.9% 250 ML IV SCH (23:00)
[2019-12-24] MEDS: INSULIN ASPART 100 UNITS/ML 3 ML PEN SC SCH ×6 (00:15→20:23)
[2019-12-24] MEDS: PIPERACILLIN/TAZOBACTAM 3.375 GM in DEXTROSE 5% 100 ML IV SCH ×3 (03:34→20:23)
[2019-12-24] MEDS: LEVOTHYROXINE SODIUM 112 MCG TABLET PO SCH (05:50)
[2019-12-24] MEDS: ALBUTEROL 0.083% NEBU SOLN 3 ML VIAL NEB PRN ×2 (06:49→19:45)
[2019-12-24] MEDS: ACETYLCYSTEINE 20% INHAL SOLN 4ML ***DISPENSED BY RESP. INH SCH ×2 (06:49→19:45)
[2019-12-24 06:51] LABS: Hematocrit (blood only) 32.2 % (37-47); Hemoglobin 10.1 g/dL (12.0-16.0); Mean Corpuscular Hemoglobin 32.7 pg (25-34); Mean Corpuscular Hgb Conc 31.4 g/dL (32-36); Mean Corpuscular Volume 104.2 fL (80-100); Mean Platelet Volume 10.5 fL (7.4-10.4); Platelet Count 191 K/uL (130-400); RDW Coefficient of Variation 14.3 % (11.5-14.5); RDW Standard Deviation 54.4 fL (36.4-46.3); Red Blood Count 3.09 M/uL (4.2-5.4); White Blood Count 11.38 K/uL (4.8-10.8)
[2019-12-24 07:27] LABS: BUN Creatinine Ratio 13.6 (10-20); Calcium 8.7 mg/dl (8.5-10.1); Creatinine Clr Calc Pharmacy 173.2 ml/min; Est GFR (African American) 82.3; Potassium 3.9 mmol/L (3.5-5.1)
[2019-12-24] MEDS: HEPARIN 100 UNIT/ML 5ML FLUSH FLUSH PRN (07:31)
[2019-12-24] MEDS: FLUTICASONE/VILANTEROL 100/25MCG 14 PUFFS/INHALER INH SCH (07:53)
[2019-12-24] MEDS: ENOXAPARIN INJ 40 MG/0.4 ML SYR SQ SCH (07:53)
[2019-12-24] MEDS: CALCIUM CARBONATE 1250MG TAB PO SCH ×3 (07:54→20:23)
[2019-12-24] MEDS: predniSONE 10 MG TABLET PO SCH (07:54)
[2019-12-24] MEDS: CITALOPRAM 40 MG TAB PO SCH (07:54)
[2019-12-24] MEDS: CEROVITE ADV FORMULA TAB PO SCH (07:54)
[2019-12-24] MEDS: PANTOprazole 40 MG TAB PO SCH (07:54)
[2019-12-24] MEDS: DONEPEZIL HCL 5 MG TAB PO SCH (07:54)
[2019-12-24 08:17] LABS: Estimated Average Glucose 192 mg/dl; Hemoglobin A1C 8.3 % (4.5-5.6)
[2019-12-24] MEDS: NovoLIN-N (NPH) PER UNIT CHARGE SQ SCH (08:56)
[2019-12-24] MEDS: INSULIN GLARGINE SOLOSTAR 100 UNITS/ML 3 ML PEN SC SCH (08:57)
[2019-12-24] MEDS ORDERED: ASPIRIN 81 MG ECTAB PO SCH (09:00)
--- NOTE | 2019-12-24 12:53 | Medical Student Progress Note ---
Date of Service December 24, 2019 Assessment & Plan (1) Multifocal pneumonia: (1) Multifocal pneumonia: Acute hypoxic respiratory failure present on admission likely secondary to pneumonia with background of chronic respiratory failure -IV Zosyn, d/c vanc in setting of neg MRSA swab -Sputum culture shows Gram + rods and cocci - f/u speciation and sensitivities -WBC from 19.8->11 -Afebrile -PT/OT eval Patient is DNR based upon POLST form from the chart Dispo: [facility] Patient was seen and examined independently I discussed the case with Sahil Hermosillo MS4 I reviewed pertinent past medical social family history and also the plan of care and agree with the plan of care. Patient is improving on IV antibiotics in the setting of an aspiration pneumonia. Previously having drug-resistant organisms specifically ESBL E. coli. This patient will be likely treated with continued antibiotics at discharge and whether she requires intravenous or p.o. will depend amount of sensitivities. So far her preliminary is showing gram-positive organisms which would point against this being an ESBL E. coli. Her other chronic medical problems are stable at this point time Any exceptions will be noted below (2) Diabetes type 1, controlled: Managed per pharmacy glycemic consult - Basal 19 u Lantus, correction factor of 20/u, CHO ratio 1:10 (3) Jeri's thyroiditis: TSH 0.197 on admit -Continue Synthroid 112mcg (home dose 125mcg) (4) Cognitive and neurobehavioral dysfunction: -Patient has Down syndrome and recently was diagnosed with dementia continues on Aricept per neurology recs (5) Depression: Continues on citalopram 40 mg PO (6) CAMILLA (obstructive sleep apnea): -4 L oxygen with humidified trach collar at night (7) Chronic obstructive pulmonary disease: Continue home nebulizer medicines and prednisone (8) Seizure disorder: This is by history, no current pharmacotherapy (9) DVT prophylaxis: Will use Lovenox for DVT prevention Admission and Anticipated Discharge Date Admission Date: December 23, 2019 Subjective Per nursing, felt that Valorie is doing better this morning, more interactive and animated. Additionally, she is coughing more this morning occasionally productive of sputum. She is eating well and denies abdominal pain. This pt is pleasant and without distress. she has no had a significant cough Review of Systems Review of Systems: Unobtainable due to cognitive status Review of systems is difficult to obtain given patient's cognitive status. Physical Exam Physical Exam: The patient appeared typically developed for Down syndrome patient Vital signs as documented. Hypoxia is at its baseline Head exam is normocephalic atraumatic no scleral icterus Neck is without JVD, thyromegaly, or carotid bruits. Lungs are coarse at the bases but improved aeration Cardiac exam, Rhythm is regular.. No murmurs, rubs or gallops. Abdominal exam reveals normal bowel sounds, soft non tender, no masses Extremities are nonedematous and both pedal pulses are present Neurologic exam is alert and follows commands spontaneously moves all extremities Skin is without bruises or rashes Constitutional: Well appearing woman resting comfortably in bed Eyes: PERRL, conjunctivae normal, anicteric sclerae Neck: No JVD, no thyromegaly, tracheostomy in place Respiratory: Normal respiratory effort, occasional cough, rhonchi heard throughout lungs bilaterally Cardiovascular: Regular rate and rhythm, no murmurs rubs or extra heart sounds. No peripheral edema Gastrointestinal (Abdomen): Nondistended abdomen, normoactive bowel sounds, nontender to palpation. Musculoskeletal: no cyanosis or clubbing, extremities motor strength 5/5 Skin: no rashes, warm and dry Results & Data ([facility]) Vital Signs (Past 12 Hours) Vital Signs Temp Pulse Pulse Resp BP Pulse Ox 12/24/19 12:46 36.8 C 61 18 128/71 95 12/24/19 08:25 36.8 C 56 L 18 115/63 98 12/24/19 07:45 57 L 12/24/19 06:52 56 L 20 89 L 12/24/19 03:43 36.8 C 58 L 20 105/74 95
--- NOTE | 2019-12-24 13:29 | Pharmacy Report ---
Pharmacy Glycemic Short Note 2 - Date of Service December 24, 2019 - Glycemic Short BSG Results (Last 24 hours): 12/23/19 12/23/19 12/23/19 16:36 21:16 21:17 Glucose POC Glucose 189 H 303 H* 286 H 12/24/19 12/24/19 12/24/19 00:07 00:10 03:42 Glucose POC Glucose 303 H* 256 H 164 H 12/24/19 12/24/19 12/24/19 06:18 07:38 11:34 Glucose 175 H POC Glucose 231 H 137 H OUTPATIENT ANTIDIABETIC REGIMEN: * Insulin pump + CGM * Basal Rates: * 0000: 0.725 units/hr * 0330: 0.450 units/hr * 0600: 0.725 units/hr * 0900: 0.950 units/hr * 2100: 0.75 units/hr * Carb Ratio per group home list 1:10 * A1c 8.2% 11/27/19 ASSESSMENT: 12/23 * Pt BSGs have been acceptable for patient's goal with two BSGs >250 mg/dL * Will continue with 19 units of lantus qAM. Added NPH to help with coverage for daily 10 mg prednisone * Prandial BSG acceptable today, goal range tightened slightly to 150-190 mg/dL * Will continue with current other parameters, continue to monitor trend in BSG for adjustments. 12/22 * Ms. Early is a type 1 diabetic admitted with multifocal pneumonia, known to glycemic service, typically maintained on insulin pump outpatient and changed to basal/bolus or insulin infusion on admission as patient unable to make own pump adjustments * Discussed with provider would like to attempt basal/bolus regimen rather than insulin infusion- lantus 19 units x 1 this AM * Outpatient provider notes reviewed, patient is not corrected outpatient unless BSG >250 mg/dL, will set a looser goal range of 150-200 to avoid overcorrection. Will start with correction factor of 20, carb ratio of 10 as used in the past. * Patient does have less of a basal requirement overnight and current lantus dose should provide ~0.79 units/hr, therefore will get overnight checks for monitoring PLAN FOR INPATIENT GLYCEMIC CONTROL: * Hold outpatient oral diabetes medications * Basal insulin * Lantus 19 units x 1 * Bolus insulin * NovoLog per scale ACHS or Q6hrs while NPO * Goal Range: Low 150 mg/dL - High 200 mg/dL * Correction Factor: 20 mg/dL/unit * Nutritional / Prandial insulin per carb ratio of 1 unit per 10 grams CHO consumed
--- NOTE | 2019-12-24 17:31 | Billing Data ---
Date of Service December 24, 2019 Coding Level of Care Code 44169 Subseq Hosp Care Lvl 2
[2019-12-24] MEDS: ATORVASTATIN 10 MG TAB PO SCH (20:24)
[2019-12-24] MEDS: MONTELUKAST SODIUM 10 MG TABLET PO SCH (20:24)
[2019-12-24] MEDS: FEXOFENADINE HCL 180 MG TAB PO SCH (20:24)
[2019-12-25] MEDS ORDERED: INSULIN ASPART 100 UNITS/ML 3 ML PEN SC SCH (02:00)
[2019-12-25] MEDS: PIPERACILLIN/TAZOBACTAM 3.375 GM in DEXTROSE 5% 100 ML IV SCH ×2 (04:37→12:14)
[2019-12-25] MEDS: LEVOTHYROXINE SODIUM 112 MCG TABLET PO SCH (06:01)
[2019-12-25] MEDS: ACETYLCYSTEINE 20% INHAL SOLN 4ML ***DISPENSED BY RESP. INH SCH (07:23)
[2019-12-25] MEDS: ALBUTEROL 0.083% NEBU SOLN 3 ML VIAL NEB PRN (07:23)
[2019-12-25 08:21] LABS: Hematocrit (blood only) 30.4 % (37-47); Hemoglobin 9.9 g/dL (12.0-16.0); Mean Corpuscular Hemoglobin 33.3 pg (25-34); Mean Corpuscular Hgb Conc 32.6 g/dL (32-36); Mean Corpuscular Volume 102.4 fL (80-100); Mean Platelet Volume 10.4 fL (7.4-10.4); Platelet Count 193 K/uL (130-400); RDW Standard Deviation 52.4 fL (36.4-46.3); Red Blood Count 2.97 M/uL (4.2-5.4); White Blood Count 9.53 K/uL (4.8-10.8)
[2019-12-25] MEDS: INSULIN ASPART 100 UNITS/ML 3 ML PEN SC SCH ×2 (08:34→12:19)
[2019-12-25] MEDS: INSULIN GLARGINE SOLOSTAR 100 UNITS/ML 3 ML PEN SC SCH (08:36)
[2019-12-25 08:51] LABS: BUN Creatinine Ratio 11.8 (10-20); Calcium 8.6 mg/dl (8.5-10.1); Creatinine Clr Calc Pharmacy 57.4 ml/min; Est GFR (African American) 81.2; Est GFR (Non-African American) 70.1; Potassium 3.8 mmol/L (3.5-5.1)
--- NOTE | 2019-12-25 08:52 | Pharmacy Report ---
Pharmacy Glycemic Short Note 2 - Date of Service December 25, 2019 - Glycemic Short BSG Results (Last 24 hours): 12/24/19 12/24/19 12/24/19 11:34 16:21 20:20 POC Glucose 137 H 188 H 378 H* 12/24/19 12/25/19 12/25/19 20:21 01:45 07:51 POC Glucose 315 H* 186 H 169 H OUTPATIENT ANTIDIABETIC REGIMEN: * Insulin pump + CGM * Basal Rates: * 0000: 0.725 units/hr * 0330: 0.450 units/hr * 0600: 0.725 units/hr * 0900: 0.950 units/hr * 2100: 0.75 units/hr * Carb Ratio per fpc list 1:10 * A1c 8.2% 11/27/19 ASSESSMENT: 12/24 * BSGs reasonably controlled yesterday except for HS check of 315 mg/dL * Will tighten carb ratio slightly today and lower the upper end of the goal range * Continues on prednisone 10 mg PO daily - NPH 7 units (0.1 unit/kg) added yesterday, will continue * Fasting BSG this morning of 169 mg/dL, which is significantly improved from yesterday's of 231 mg/dL * Continue Lantus 19 units SC qAM (reflective of basal insulin provided by insulin pump) * Continues on Zosyn empirically for aspiration pneumonia 12/23 * Pt BSGs have been acceptable for patient's goal with two BSGs >250 mg/dL * Will continue with 19 units of lantus qAM. Added NPH to help with coverage for daily 10 mg prednisone * Prandial BSG acceptable today, goal range tightened slightly to 150-190 mg/dL * Will continue with current other parameters, continue to monitor trend in BSG for adjustments. 12/22 * Ms. Early is a type 1 diabetic admitted with multifocal pneumonia, known to glycemic service, typically maintained on insulin pump outpatient and changed to basal/bolus or insulin infusion on admission as patient unable to make own pump adjustments * Discussed with provider would like to attempt basal/bolus regimen rather than insulin infusion- lantus 19 units x 1 this AM * Outpatient provider notes reviewed, patient is not corrected outpatient unless BSG >250 mg/dL, will set a looser goal range of 150-200 to avoid overcorrection. Will start with correction factor of 20, carb ratio of 10 as used in the past. * Patient does have less of a basal requirement overnight and current lantus dose should provide ~0.79 units/hr, therefore will get overnight checks for monitoring PLAN FOR INPATIENT GLYCEMIC CONTROL: * Hold outpatient oral diabetes medications * Basal insulin * Lantus 19 units SC qAM * NPH 7 units SC qAM w/ prednisone * Bolus insulin - tighten carb ratio and lower upper end of goal range * NovoLog per scale ACHS or Q6hrs while NPO * Goal Range: Low 140 mg/dL - High 180 mg/dL * Correction Factor: 20 mg/dL/unit * Nutritional / Prandial insulin per carb ratio of 1 unit per 8 grams CHO consumed
[2019-12-25] MEDS: predniSONE 10 MG TABLET PO SCH (09:00)
[2019-12-25] MEDS: DONEPEZIL HCL 5 MG TAB PO SCH (09:00)
[2019-12-25] MEDS: CALCIUM CARBONATE 1250MG TAB PO SCH ×2 (09:00→12:22)
[2019-12-25] MEDS: ENOXAPARIN INJ 40 MG/0.4 ML SYR SQ SCH (09:01)
[2019-12-25] MEDS: CEROVITE ADV FORMULA TAB PO SCH (09:01)
[2019-12-25] MEDS: CITALOPRAM 40 MG TAB PO SCH (09:01)
[2019-12-25] MEDS: NovoLIN-N (NPH) PER UNIT CHARGE SQ SCH (09:01)
[2019-12-25] MEDS: PANTOprazole 40 MG TAB PO SCH (09:01)
[2019-12-25] MEDS: FLUTICASONE/VILANTEROL 100/25MCG 14 PUFFS/INHALER INH SCH (09:02)
[2019-12-25] MEDS: HEPARIN 100 UNIT/ML 5ML FLUSH FLUSH PRN (09:11)
--- NOTE | 2019-12-25 20:25 | Discharge Summary ---
Date of Service December 25, 2019 Admission HPI Per Admitting Provider 54-year-old female who is was a chronic tracheostomy has a history of aspiration pneumonia including ESBL E. coli who presents with increased respiratory distress hypoxia and concern for pneumonia. Patient suffers from Down syndrome is cared for at a nursing facility through the [facility] patient developed increasing respiratory distress wheezing increased mucopurulent secretions was brought to emergency department where she was found to have a right lower lobe pneumonia on chest x-ray a leukocytosis. She was tested for COVID which was negative. Was given vancomycin and Zosyn as she has a history of the ESBL organisms in the past. Patient is also diabetic wearing an insulin pump which is concurrently continued and infusion patient has little respiratory distress upon my evaluation. Principal Diagnosis Aspiration pneumonia Sepsis ruled out Discharge Exam The patient appeared well appeared in her normal state she does have Down syndrome but she is very adamant and conversant Vital signs as documented. Lungs are still with some persistent decreased breath sounds at the right base but overall very clear Neurologic exam is alert and follows commands and interacts, no focal loss of strength or sensation Skin is without bruises or rashes Discharge Data Allergies Allergy/AdvReac Type Severity Reaction Status Date / Time cefaclor Allergy Intermediate HIVES Verified 12/01/19 12:55 Cephalosporins Allergy Intermediate rash per Verified 12/01/19 12:55 mother sertraline AdvReac Mild INTOLERANCE Verified 12/01/19 12:55 Consultations 12/23/19 05:41 ED Decision to Admit Stat Hospital Course (1) Multifocal pneumonia: (1) Multifocal pneumonia: Acute hypoxic respiratory failure present on admission likely secondary to pneumonia with background of chronic respiratory failure -This is resolved suspect to be secondary to pneumonia present on admission likely aspiration pneumonia. MRSA swab was negative so vancomycin was discontinued. Patient improved dramatically while on Zosyn therapy and will discharge on full dose Augmentin therapy 875 twice daily for additional 8 days then she is to resume her typical rotation of antibiotics. (2) Diabetes type 1, controlled: Patient will be on her insulin pump (3) Jeri's thyroiditis: Patient is typically maintained on Synthroid 125 there was some slight decrease in her TSH we will recommend outpatient check when she is not ill in 4 to 6 weeks (4) Cognitive and neurobehavioral dysfunction: Patient has Down syndrome and recently was diagnosed with dementia continues on Aricept (5) Depression: Continues on citalopram (6) CAMILLA (obstructive sleep apnea): Patient typically has 4 L oxygen with humidified trach collar at night initially was felt she had positive pressure ventilation at night but this is erroneous (7) Chronic obstructive pulmonary disease: pt is maintained on nebulizer medicines and continues on prednisone (8) Seizure disorder: This is by her history only she is currently not on any medications for this Total Time Total Time Spent Total Time Spent (In Minutes): It required greater than 30 minutes to prepare this patient for discharge Discharge Plan Discharge Items Patient Disposition: Home - Home Health Services Reason For Visit: ASPIRATION PNEUMONIA Discharge Diagnosis: aspiration pneumonia Activity: Resume your previous activity Non-emergency contact: Primary Care Provider Call non-emergency contact if: you have any medication questions Follow-up/Referrals: Pro,Vladimir Pennington MD [Primary Care Provider] - Diet: Carb Consistent or DM2 Diet Texture: Easy to Chew Liquid Consistency: [place] thick Addtl Attending Provider Instructions: please monitor fever and coughing take Augmentin the new prescription, for the next 8 days, hold her usual rotating antibiotics, once done the Augmentin higher dose resume the rotation. Pending Studies at Discharge: No Stand-Alone Forms: My [facility] [email or web address], Smoking Cessation Medications and DC Order Prescriptions: New amoxicillin-pot clavulanate [Augmentin] 875-125 mg tablet 1 tab PO BID Qty: 16 RF: 0 Continued promethazine 12.5 mg tablet 12.5 mg PO Q8 PRN (Reason: nausea and vomiting) Qty: 30 RF: 3 dextrose [Dex4 Glucose] 40 % gel 20 gm PO .COMPLEX PRN (Reason: hypoglycemia) Qty: 112.5 RF: 3 albuterol sulfate [Ventolin HFA] 90 mcg/actuation HFA aerosol inhaler 2 puffs INH QID PRN (Reason: shortness of breath or wheezing) Qty: 18 RF: 5 fluconazole 150 mg tablet 150 mg PO DAILY PRN (Reason: candidiasis) Qty: 7 RF: 1 sodium chloride 0.9 % Solution 273 ml IV BID Qty: 06624 RF: 5 calcium carbonate [Oyster Shell Calcium 500] 500 mg calcium (1,250 mg) tablet 500 mg PO TID Qty: 270 RF: 3 Novolog U-100 Insulin aspart 100 unit/mL solution 70 units subcut .COMPLEX 90 Days Qty: 70 RF: 3 atorvastatin 10 mg tablet 10 mg PO HS Qty: 90 RF: 3 omeprazole 20 mg capsule,delayed release(DR/EC) 20 mg PO QAM Qty: 90 RF: 3 Therems-M 27-0.4 mg tablet 1 tab PO DAILY Qty: 30 RF: 5 fexofenadine [Allergy Relief (fexofenadine)] 180 mg tablet 180 mg PO HS Qty: 30 RF: 5 montelukast 10 mg tablet 10 mg PO PM Qty: 30 RF: 5 citalopram 40 mg tablet 40 mg PO QAM Qty: 30 RF: 5 Phos-Flur 0.02 % (0.044 % sod. fluoride) solution 15 ml DENTAL HS Qty: 473 RF: 3 prednisone 10 mg tablet 10 mg PO DAILY Qty: 30 RF: 5 aspirin 81 mg tablet,delayed release (DR/EC) 81 mg PO .qod Qty: 45 RF: 3 Breo Ellipta 100-25 mcg/dose blister with device 1 inh INHALATION DAILY Qty: 1 RF: 5 amoxicillin-pot clavulanate [Augmentin] 500-125 mg tablet 1 tab PO BID Qty: 60 RF: 3 sulfamethoxazole-trimethoprim [Bactrim DS] 800-160 mg tablet 1 tab PO DAILY Qty: 30 RF: 5 albuterol sulfate 2.5 mg /3 mL (0.083 %) solution for nebulization See Rx Instructions .ROUTE .COMPLEX Qty: 360 RF: 5 glucagon HCl 1 mg/mL recon soln See Rx Instructions subcut ONCE Qty: 1 RF: 5 furosemide 20 mg tablet 20 mg PO DAILY PRN (Reason: weight gain) Qty: 30 RF: 3 alcohol swabs Pads, Medicated 1 pad topical UD Qty: 200 RF: 3 doxycycline hyclate 100 mg capsule 100 mg PO .COMPLEX Qty: 30 RF: 5 cholecalciferol (vitamin D3) 100 mcg (4,000 unit) capsule 200 mcg PO DAILY Qty: 60 RF: 5 levothyroxine 125 mcg tablet 125 mcg PO DAILY Qty: 90 RF: 3 donepezil 5 mg tablet 5 mg PO DAILY Qty: 30 RF: 5 clotrimazole-betamethasone [Lotrisone] 1-0.05 % cream 1 appln TOP BID PRN (Reason: rash) 28 Days Qty: 45 RF: 3 glucose [Dex4 Glucose Quick Dissolve] 4 gram tablet,chewable 4 gm PO DAILY PRN (Reason: hypoglycemia) Qty: 90 RF: 3 acetylcysteine 200 mg/mL (20 %) solution 4 ml INHALATION BID Qty: 240 RF: 5 acetaminophen [Tylenol] 325 mg Tablet 650 mg PO Q4H PRN (Reason: Pain) RF: 0 Basaglar KwikPen U-100 Insulin 100 unit/mL (3 mL) insulin pen See Rx Instructions SQ DAILY RF: 0 No Action (DME) Saline Solution solution See Dose Instructions .ROUTE .MEDSUPPLY Qty: 118 RF: 0 (DME) syringe (disposable) [BD Syringe Luer-Tara NonSterile] 5 mL syringe See Rx Instructions .ROUTE .MEDSUPPLY Qty: 25 RF: 0 (DME) Ketone Urine Test strip See Dose Instructions .ROUTE .MEDSUPPLY Qty: 25 RF: 0 (DME) Quick-Set Paradigm infusion set See Dose Instructions .ROUTE .MEDSUPPLY Qty: 2 RF: 0 (DME) Easy Touch FlipLock Insulin 1 mL 29 gauge x 1/2" syringe See Rx Instructions .ROUTE .MEDSUPPLY Qty: 500 RF: 0 (DME) Suction Tube Attachment Device misc See Rx Instructions .ROUTE .MEDSUPPLY Qty: 1 RF: 0 (DME) pen needle, diabetic [BD Ultra-Fine Natali Pen Needle] 32 gauge x 5/32" needle See Rx Instructions .ROUTE .MEDSUPPLY Qty: 10 RF: 0 (DME) Contour Next Test Strips Strip See Dose Instructions .ROUTE .MEDSUPPLY Qty: 10 RF: 0 (DME) Quick-Set Paradigm infusion set See Dose Instructions .ROUTE .MEDSUPPLY RF: 0 (DME) Dexcom G5 Montessori Teacher misc See Rx Instructions .ROUTE .MEDSUPPLY Qty: 1 RF: 0 (DME) Dexcom G5 Transmitter device See Rx Instructions .ROUTE .MEDSUPPLY Qty: 1 RF: 0 (DME) Oxygen Home Liters Per Minute See Dose Instructions .ROUTE .MEDSUPPLY Qty: 1 RF: 0 Discharge Orders: Discharge Order (Routine); Ordered 12/25/19 Ordered By: Raz Stewart Admission Data Admit Date/Time: 12/23/19 07:46 Attending Provider: Raz Stewart Admit Provider: Raz Stewart Primary Care Provider: Vladimir Lucio Other Providers: Kolby Barrientos Other Interventions: Discharge Summary Assessment (RN) Last Done: 12/25/19 15:03 Coding Level of Care Code D/C Day Management >30 mins Diagnoses Multifocal pneumonia J18.9 Diabetes type 1, controlled E10.9 Jeri's thyroiditis E06.3 Cognitive and neurobehavioral dysfunction F09; F07.89 Depression F32.9 CAMILLA (obstructive sleep apnea) G47.33 Chronic obstructive pulmonary disease J44.9 Seizure disorder G40.909
== END 2019-12-25 16:10 | disposition home or self-care (01) | DRG 177 ==
LOC: ED 04:50 → 2E 07:46 → 2W 12-24 17:13

== ENCOUNTER 2020-01-04 18:50 | Inpatient (IN) ==
--- NOTE | 2020-01-04 19:31 | Emergency Department Note ---
Impression & Plan Multifocal pneumonia, Tracheostomy in place, Chronic pulmonary aspiration, Hyperglycemia ED Provider Note NAME: YVONNE WASHINGTON AGE: 54 SEX: F ARRIVES VIA: Ambulance INFORMANT: Patient, ED PROVIDER(S): Ronald Stevenson MD CHIEF COMPLAINT: Congestion, shortness of breath, leg swelling PLAN: Disposition: Home MEDICAL DECISION MAKING: The patient is a pleasant 54-year-old woman with a past medical history of Down syndrome, history of chronic tracheostomy with history of aspiration pneumonia with history of ESBL E. coli who presents emergency department from her home accompanied by staff member with worsening shortness of breath and congestion with new lower extremity edema that has not improved despite having dose of Lasix yesterday currently on outpatient daily infusions of ertapenem after it was felt that the patient was not improving following her discharge on 12/24 after initial diagnosis of her pneumonia. Patient's staff member reports that her glucose has also been persistently elevated despite being administered her normal sliding scale insulin and also receiving NPH taking to account her recent prednisone taper. They were also concerned for the patient's elevated blood pressure was 190s/90s on arrival. On arrival the patient is chronically ill-appearing but no acute distress, afebrile with stable vital signs. She does have scattered rhonchi throughout with intermittent wheeze. She does have bilateral lower extremity edema though does have dry mucous membranes. EKG without overt acute ischemia. Chest x-ray demonstrates improved bibasilar opacities which are better characterized on patient CTA of the chest which was negative for PE. WBC 13.8, nonspecific and in the setting of recent steroid taper. H/H 10.8/34.2, similar to prior range of values. Platelets within normal limits. VBG unremarkable. Chemistry without acidosis despite hyperglycemia to 487 on arrival. BUN is elevated at 31 with BUN/creatinine> 20 may reflect a component of dehydration. Lactic acid 1.3. Electrolytes and LFTs are unremarkable. Troponin negative/undetectable. BNP within normal limits. Procalcitonin <0.05. UA without convincing evidence of infection. The patient appears to not be improving despite being on outpatient IV infusions of ertapenem now with difficult to control blood sugars reasonable to meet the patient for further management. The patient's mother and caregiver are agreeable with plan. Patient did receive her IV infusion of ertapenem this morning. Therefore may benefit from broadening coverage additionally. Will defer to admitting team. BSG improved to 374 1 hour after receiving 10 units of IV regular insulin. Will defer additional correction to admitting team with coordination of transitioning from patient's insulin pump. MANOD Masters hospitalist, to evaluate the patient for admission. Triage Nursing notes reviewed and agree them. Prior medical records reviewed Vital Signs: reviewed and remarkable for hypertension. Differential diagnosis: Reactive airway disease, pneumonia, pneumothorax, COPD, CHF, infections, cardiac ischemia, pulmonary embolism, musculoskeletal, gastrointestinal, as well as other pathologies. ER treatment provided: See below. Diagnostics interpreted by me: ECG: Sinus bradycardia, 55 bpm, no ectopy, nonspecific ST abnormality, no overt ST elevation or depression, QTC 447, QRS 84. Cardiac Monitoring: An order for continuous cardiac monitoring was placed and demonstrated sinus bradycardia, 55 bpm, no ectopy. Laboratory studies: See below Imaging studies: XR chest 1V portable HISTORY: SEPSIS COMPARISON: Chest 12/23/2019. FINDINGS: No pneumothorax. Trace right pleural effusion. The heart remains mildly enlarged. Tracheostomy tube terminates at the mid trachea. Right subclavian Port-A-Cath runs at the SVC. Mild diffuse interstitial thickening persists. Patchy bibasilar airspace opacities have slightly improved. Old, healed bilateral rib fractures are noted. Right-sided aortic arch, unchanged. IMPRESSION: 1. Bibasilar airspace opacities have improved. 2. Mild interstitial pulmonary edema and trace right pleural effusion. [facility]RAD Preliminary Findings Only See Final Report For Complete Findings CTA CHEST: There is a right-sided aortic arch. There is no aneurysm or dissection. Great vessel origins are widely patent. The pulmonary arterial tree is well-opacified with contrast. No pulmonary emboli are identified. The heart is mildly enlarged. No pericardial effusion is seen. No mediastinal lymphadenopathy or mass is present. Lung volumes are moderate. There are streaky infiltrates in both lower lobes suspicious for pneumonia. The pattern is nonspecific. No pneumothorax or pleural effusion. There is a tracheostomy in standard position. Mild degenerative changes in the thoracic spine. No fracture or subluxation. Radiologist: Dov Choe MD Study ready at 21:56 and initial results transmitted at 22:10 Consultation(s): MANDO Masters hospitalist. HPI: The patient is a pleasant 54-year-old woman with a past medical history of Down syndrome, history of chronic tracheostomy with history of aspiration pneumonia with history of ESBL E. coli who presents emergency department from her home accompanied by staff member with worsening shortness of breath and congestion with new lower extremity edema that has not improved despite having dose of Lasix yesterday currently on outpatient daily infusions of ertapenem after it was felt that the patient was not improving following her discharge on 12/24 after initial diagnosis of her pneumonia. Patient's staff member reports that her glucose has also been persistently elevated despite being administered her normal sliding scale insulin and also receiving NPH taking to account her recent prednisone taper. They were also concerned for the patient's elevated blood pressure was 190s/90s on arrival. ROS: See above HPI for pertinent positives & negatives. A total of 10 systems reviewed and were otherwise negative. PAST MEDICAL HISTORY:See Below PAST SURGICAL HISTORY:See Below FAMILY HISTORY:See Below SOCIAL HISTORY:See Below HOME MEDICATIONS:See Below ALLERGIES:See Below VITALS:See Below PHYSICAL EXAMINATION: GENERAL: Awake, alert, chronically ill-appearing, in no distress, BMI 28.2. HENT: Normocephalic, atraumatic. Oropharynx with dry mucous membranes and otherwise unremarkable. EYES: Normal conjunctiva. Sclera non-icteric. NECK: Supple. No nuchal rigidity. FROM. No JVD. Trach, c/d/i. RESPIRATORY: Scattered rales and rhonchi with intermittent wheeze. CARDIAC: Regular rate, normal rhythm. Extremities warm and well perfused. Pulses equal. ABDOMEN: Soft, non-distended. No tenderness to palpation. No rebound or guarding. No masses. RECTAL: Deferred. MUSCULOSKELETAL: Chest examination reveals no tenderness. The back is symmetrical on inspection without obvious abnormality. There is no CVA tenderness to palpation. No joint edema. LOWER EXTREMITIES: Calves are equal size bilaterally and non-tender. 2+ bilateral lower extremity edema. No discoloration. NEURO: Normal sensorium. No sensory or motor deficits noted. SKIN: No rash or jaundice noted. Ronald Stevenson MD Past Med/Surg History Medical History Diabetes type 1, controlled History of allergic rhinitis History of athlete's foot History of bacterial pneumonia History of candidiasis of mouth History of chronic bronchitis History of community acquired pneumonia History of constipation History of diarrhea History of dysuria History of edema History of hyperkalemia History of hypotension History of nausea History of sunburn History of tinea corporis History of uncontrolled diabetes Pneumonia Surgical History History of bronchoscopy History of thoracotomy Hx of hand surgery S/P resection of aortic aneurysm Family History Other Diabetes Hypertension Denies family history of Colorectal cancer Social History Smoking Status: Never smoker Second Hand Exposure: No; Hx Alcohol Use: No Hx Substance Use: No Preferred Language: Amharic Communication Ability: Effective Driller Machine Required: No Beliefs That Will Affect Care: None marital status: Single Current Living Situation: Personal Care Facility Current Living Situation Comment: [facility] - Residential alf current occupational status: disabled How many Children do You have: 0 Feels Safe at Home: Yes Seatbelt Use: always Assistive Devices: Glasses and Oxygen - Continuous Allergies Allergies Allergy/AdvReac Type Severity Reaction Status Date / Time cefaclor Allergy Intermediate HIVES Verified 01/04/20 08:52 Cephalosporins Allergy Intermediate rash per Verified 01/04/20 08:52 mother sertraline AdvReac Mild INTOLERANCE Verified 01/04/20 08:52 Home Meds Home Medications Medication Instructions Recorded Confirmed blood-glucose transmitter #1 02/26/19 12/29/19 infusion set for insulin pump 02/26/19 12/29/19 insulin syringe,safetyneedle 1 mL #500 ea 02/26/19 12/29/19 29 gauge x 1/2" Basaglar KwikPen U-100 Insulin See Rx Instructions SQ DAILY 12/23/19 01/04/20 acetaminophen [Tylenol] 650 mg PO Q4H PRN MDD 4000MG 12/23/19 01/04/20 ertapenem 1 gram solution for 1 g IM DAILY 12/29/19 01/04/20 injection [employer] Phos Flur 15 ml MUCOUS MEMBRANE HS 01/04/20 01/04/20 albuterol sulfate 2.5 mg CONTINUOUS NEBULIZATION BID 01/04/20 01/04/20 albuterol sulfate 2.5 mg INHALATION Q4H PRN 01/04/20 01/04/20 aspirin 81 mg PO Q2D 01/04/20 01/04/20 cholecalciferol (vitamin D3) 100 mcg PO DAILY 01/04/20 01/04/20 clotrimazole 1 applic TOPICAL TID PRN 01/04/20 01/04/20 clotrimazole-betamethasone 1 appln TOP DAILY PRN 01/04/20 01/04/20 donepezil 5 mg PO DAILY 01/04/20 01/04/20 insulin NPH isoph U-100 human 0 unit SUBCUT .DAILY/UD 01/04/20 01/04/20 [Novolin N Flexpen] Previous Rx's Medication Instructions Recorded promethazine 12.5 mg tablet 12.5 mg PO Q8 PRN #30 tab 12/23/18 albuterol sulfate 90 mcg/actuation 2 puffs INH QID PRN #18 gm 03/25/19 aerosol inhaler fluconazole 150 mg tablet 150 mg PO DAILY PRN #7 tab 03/25/19 calcium carbonate 500 mg calcium 500 mg PO TID #270 tab 04/03/19 (1,250 mg) tablet Novolog U-100 Insulin aspart 100 70 units SUBCUT .COMPLEX 90 Days 06/09/19 unit/mL subcutaneous solution #70 ml NS atorvastatin 10 mg tablet 10 mg PO HS #90 tab 07/02/19 citalopram 40 mg tablet 40 mg PO QAM #30 tab 07/20/19 fexofenadine 180 mg tablet 180 mg PO HS #30 tab 07/20/19 montelukast 10 mg tablet 10 mg PO PM #30 tab 07/20/19 multivitamin,cv-vbed-akjdvmrq 27 1 tab PO DAILY #30 tab 07/20/19 mg-0.4 mg tablet levothyroxine 125 mcg tablet 125 mcg PO DAILY #90 tab 08/21/19 amoxicillin 500 mg-potassium 1 tab PO BID #60 tab 10/27/19 clavulanate 125 mg tablet fluticasone furoate 100 1 inh INHALATION DAILY #1 inhaler 10/27/19 mcg-vilanterol 25 mcg/dose inhalation powder acetylcysteine 200 mg/mL (20 %) 4 ml INHALATION BID #240 ml 11/19/19 solution furosemide 20 mg tablet 20 mg PO DAILY PRN #30 tab 11/24/19 prednisone 20 mg tablet 20 mg PO DAILY #20 tab 12/29/19 Results & Data (ED) Vital Signs Vital Signs - 24 hr 01/04/20 19:01 01/04/20 19:22 01/04/20 19:24 Temperature 36.9 C Temperature Source Oral Pulse Rate 55 L 53 L Pulse Rate [Right Finger] Pulse Rate from SpO2 Sensor 53 L Pulse Rhythm Regular Pulse Strength Normal Respiratory Rate 18 14 Respiratory Effort / Characteristics Non-Labored Spontaneous Non-Labored Spontaneous Respiratory Depth Normal Respiratory Pattern Regular Blood Pressure 193/93 H Blood Pressure [Right Arm] Blood Pressure Mean 126 Blood Pressure Mean [Right Arm] Blood Pressure Position Lying Blood Pressure Position [Right Arm] Pulse Oximetry 100 96 96 Oxygen Delivery Method Nasal Cannula Nasal Cannula Nasal Cannula Oxygen Flow Rate 4 4 4 Sepsis Recent Fever Within 48 Hours No Sepsis New/Unexplained Change in Mental Status N/A Sepsis Action Taken by Nursing No Action Required 01/04/20 19:25 01/04/20 19:30 01/04/20 19:56 Temperature Temperature Source Pulse Rate 57 L 53 L Pulse Rate [Right Finger] Pulse Rate from SpO2 Sensor 58 L 52 L Pulse Rhythm Pulse Strength Respiratory Rate 16 16 Respiratory Effort / Characteristics Respiratory Depth Respiratory Pattern Blood Pressure 163/84 H Blood Pressure [Right Arm] Blood Pressure Mean 117 Blood Pressure Mean [Right Arm] Blood Pressure Position Blood Pressure Position [Right Arm] Pulse Oximetry 97 96 99 Oxygen Delivery Method Nasal Cannula Nasal Cannula Nasal Cannula Oxygen Flow Rate 4 4 4 Sepsis Recent Fever Within 48 Hours Sepsis New/Unexplained Change in Mental Status Sepsis Action Taken by Nursing 01/04/20 20:00 01/04/20 20:02 01/04/20 20:03 Temperature Temperature Source Pulse Rate 47 L 50 L 48 L Pulse Rate [Right Finger] Pulse Rate from SpO2 Sensor 47 L 50 L 51 L Pulse Rhythm Pulse Strength Respiratory Rate 16 19 18 Respiratory Effort / Characteristics Respiratory Depth Respiratory Pattern Blood Pressure 215/95 H Blood Pressure [Right Arm] Blood Pressure Mean 128 Blood Pressure Mean [Right Arm] Blood Pressure Position Blood Pressure Position [Right Arm] Pulse Oximetry 100 97 98 Oxygen Delivery Method Nasal Cannula Nasal Cannula Nasal Cannula Oxygen Flow Rate 4 4 4 Sepsis Recent Fever Within 48 Hours Sepsis New/Unexplained Change in Mental Status Sepsis Action Taken by Nursing 01/04/20 20:30 01/04/20 21:00 01/04/20 21:40 Temperature Temperature Source Pulse Rate 54 L 53 L 58 L Pulse Rate [Right Finger] Pulse Rate from SpO2 Sensor 53 L 53 L 58 L Pulse Rhythm Pulse Strength Respiratory Rate 23 21 20 Respiratory Effort / Characteristics Respiratory Depth Respiratory Pattern Blood Pressure 207/95 H 211/95 H Blood Pressure [Right Arm] Blood Pressure Mean 128 130 Blood Pressure Mean [Right Arm] Blood Pressure Position Blood Pressure Position [Right Arm] Pulse Oximetry 98 100 100 Oxygen Delivery Method Nasal Cannula Nasal Cannula Nasal Cannula Oxygen Flow Rate 4 4 4 Sepsis Recent Fever Within 48 Hours Sepsis New/Unexplained Change in Mental Status Sepsis Action Taken by Nursing 01/04/20 22:00 01/04/20 22:02 01/04/20 22:03 Temperature Temperature Source Pulse Rate 54 L 55 L 56 L Pulse Rate [Right Finger] Pulse Rate from SpO2 Sensor 54 L 55 L 56 L Pulse Rhythm Pulse Strength Respiratory Rate 24 18 15 Respiratory Effort / Characteristics Respiratory Depth Respiratory Pattern Blood Pressure 129/114 H Blood Pressure [Right Arm] Blood Pressure Mean 119 Blood Pressure Mean [Right Arm] Blood Pressure Position Blood Pressure Position [Right Arm] Pulse Oximetry 93 93 93 Oxygen Delivery Method Nasal Cannula Nasal Cannula Nasal Cannula Oxygen Flow Rate 4 4 4 Sepsis Recent Fever Within 48 Hours Sepsis New/Unexplained Change in Mental Status Sepsis Action Taken by Nursing 01/04/20 22:30 01/04/20 22:31 01/05/20 00:20 Temperature Temperature Source Pulse Rate 56 L 52 L Pulse Rate [Right Finger] 56 L Pulse Rate from SpO2 Sensor 55 L 53 L Pulse Rhythm Pulse Strength Respiratory Rate 19 22 16 Respiratory Effort / Characteristics Respiratory Depth Normal Respiratory Pattern Blood Pressure 122/97 Blood Pressure [Right Arm] 161/80 H Blood Pressure Mean 103 Blood Pressure Mean [Right Arm] 107 Blood Pressure Position Blood Pressure Position [Right Arm] Lying Pulse Oximetry 95 95 100 Oxygen Delivery Method Nasal Cannula Nasal Cannula Nasal Cannula Oxygen Flow Rate 4 4 3 Sepsis Recent Fever Within 48 Hours Sepsis New/Unexplained Change in Mental Status Sepsis Action Taken by Nursing Laboratory Data Attestation: I reviewed the patient's lab results. Result diagrams: 01/04/20 19:26 01/04/20 19:26 Lab Results 01/04/20 01/04/20 01/04/20 Range/Units 19:26 19:26 19:26 WBC 13.89 H (4.8-10.8) K/uL RBC 3.30 L (4.2-5.4) M/uL Hgb 10.8 L (12.0-16.0) g/dL Hct 34.2 L (37-47) % MCV 103.6 H (80-100) fL MCH 32.7 (25-34) pg MCHC 31.6 L (32-36) g/dL RDW Std Deviation 55.5 H (36.4-46.3) fL RDW Coeff of Jackie 14.7 H (11.5-14.5) % Plt Count 302 (130-400) K/uL MPV 10.3 (7.4-10.4) fL Neutrophils % (Manual) 96.0 % Lymphocytes % (Manual) 2.0 % Monocytes % (Manual) 2.0 % Neutrophils # (Manual) 13.33 H (1.4-6.5) K/uL Total Absolute Neuts 13.33 H (1.4-6.5) K/uL Lymphocytes # (Manual) 0.28 L (1.2-3.4) K/uL Total Abs Lymphocytes 0.28 L (1.2-3.4) K/uL Monocytes # (Manual) 0.28 (0.11-0.59) K/uL PT 11.4 (9.0-12.0) Seconds INR 1.1 (0.9-1.1) APTT 25.9 (21.0-31.0) Seconds PTT Ratio 0.9 VBG pH (7.36-7.41) VBG pCO2 (38-50) mmHg VBG pO2 mmHg VBG HCO3 mmol/L VBG O2 Saturation % VBG Base Excess mEq/L Barometric Pressure mm/Hg Sodium (136-145) mmol/L Potassium (3.5-5.1) mmol/L Chloride (98-107) mmol/L Carbon Dioxide (21-32) mmol/L Anion Gap (3-11) BUN (7-18) mg/dl Creatinine (0.6-1.2) mg/dl Est Cr Clr Drug Dosing ml/min Est GFR ( Amer) Est GFR (Non-Af Amer) BUN/Creatinine Ratio (10-20) Glucose (70-99) mg/dl POC Glucose (70-99) mg/dl Lactate (0.4-2.0) mmol/L Calcium (8.5-10.1) mg/dl Phosphorus (2.5-4.9) mg/dl Magnesium (1.8-2.4) mg/dl Total Bilirubin (0.2-1) mg/dl Direct Bilirubin (0-0.2) mg/dl AST (15-37) U/L ALT (12-78) U/L Alkaline Phosphatase (45-117) U/L Troponin I (0-0.045) ng/ml NT-Pro-B Natriuret Pep (0-900) pg/ml Total Protein (6.4-8.2) gm/dl Albumin (3.4-5.0) gm/dl Globulin (2.5-4.0) gm/dl Albumin/Globulin Ratio (0.9-2) Beta-Hydroxybutyric Acd (0.2-2.81) mg/dl Procalcitonin < 0.05 (0-0.5) ng/ml TSH (0.300-4.500) uIu/ml Free T4 (0.8-1.6) ng/dl Urine Color Urine Appearance (Clear) Urine pH (4.5-7.5) Ur Specific Atkins (1.000-1.030) Urine Protein (Negative) Urine Glucose (UA) (Negative) Urine Ketones (Negative) Urine Blood (Negative) Urine Nitrite (Negative) Urine Bilirubin (Negative) Urine Urobilinogen (Negative) Ur Leukocyte Esterase (Negative) Urine WBC (Auto) (0-5) /hpf Urine RBC (Auto) (0-4) /hpf U Hyaline Cast (Auto) (0-5) /lpf U Epithel Cells (Auto) (0-5) /lpf Urine Bacteria (Auto) (Negative) 01/04/20 01/04/20 01/04/20 Range/Units 19:26 19:26 19:44 WBC (4.8-10.8) K/uL RBC (4.2-5.4) M/uL Hgb (12.0-16.0) g/dL Hct (37-47) % MCV (80-100) fL MCH (25-34) pg MCHC (32-36) g/dL RDW Std Deviation (36.4-46.3) fL RDW Coeff of Jackie (11.5-14.5) % Plt Count (130-400) K/uL MPV (7.4-10.4) fL Neutrophils % (Manual) % Lymphocytes % (Manual) % Monocytes % (Manual) % Neutrophils # (Manual) (1.4-6.5) K/uL Total Absolute Neuts (1.4-6.5) K/uL Lymphocytes # (Manual) (1.2-3.4) K/uL Total Abs Lymphocytes (1.2-3.4) K/uL Monocytes # (Manual) (0.11-0.59) K/uL PT (9.0-12.0) Seconds INR (0.9-1.1) APTT (21.0-31.0) Seconds PTT Ratio VBG pH 7.37 (7.36-7.41) VBG pCO2 60 H (38-50) mmHg VBG pO2 28 mmHg VBG HCO3 34 mmol/L VBG O2 Saturation < 60.0 % VBG Base Excess 6.7 mEq/L Barometric Pressure 735.8 mm/Hg Sodium 136 (136-145) mmol/L Potassium 5.2 H (3.5-5.1) mmol/L Chloride 100 (98-107) mmol/L Carbon Dioxide 32 (21-32) mmol/L Anion Gap 4.0 (3-11) BUN 31 H (7-18) mg/dl Creatinine 1.08 (0.6-1.2) mg/dl Est Cr Clr Drug Dosing 43.5 ml/min Est GFR ( Amer) 66.9 Est GFR (Non-Af Amer) 57.7 BUN/Creatinine Ratio 28.3 H (10-20) Glucose 487 H* (70-99) mg/dl POC Glucose (70-99) mg/dl Lactate 1.3 (0.4-2.0) mmol/L Calcium 8.4 L (8.5-10.1) mg/dl Phosphorus 3.4 (2.5-4.9) mg/dl Magnesium 1.9 (1.8-2.4) mg/dl Total Bilirubin 0.3 (0.2-1) mg/dl Direct Bilirubin 0.1 (0-0.2) mg/dl AST 6 L (15-37) U/L ALT 28 (12-78) U/L Alkaline Phosphatase 120 H (45-117) U/L Troponin I < 0.015 (0-0.045) ng/ml NT-Pro-B Natriuret Pep 453 (0-900) pg/ml Total Protein 6.2 L (6.4-8.2) gm/dl Albumin 2.2 L (3.4-5.0) gm/dl Globulin 4.0 (2.5-4.0) gm/dl Albumin/Globulin Ratio 0.6 L (0.9-2) Beta-Hydroxybutyric Acd 5.33 H (0.2-2.81) mg/dl Procalcitonin (0-0.5) ng/ml TSH 0.125 L (0.300-4.500) uIu/ml Free T4 1.30 (0.8-1.6) ng/dl Urine Color Urine Appearance (Clear) Urine pH (4.5-7.5) Ur Specific Atkins (1.000-1.030) Urine Protein (Negative) Urine Glucose (UA) (Negative) Urine Ketones (Negative) Urine Blood (Negative) Urine Nitrite (Negative) Urine Bilirubin (Negative) Urine Urobilinogen (Negative) Ur Leukocyte Esterase (Negative) Urine WBC (Auto) (0-5) /hpf Urine RBC (Auto) (0-4) /hpf U Hyaline Cast (Auto) (0-5) /lpf U Epithel Cells (Auto) (0-5) /lpf Urine Bacteria (Auto) (Negative) 01/04/20 01/04/20 Range/Units 19:56 22:05 WBC (4.8-10.8) K/uL RBC (4.2-5.4) M/uL Hgb (12.0-16.0) g/dL Hct (37-47) % MCV (80-100) fL MCH (25-34) pg MCHC (32-36) g/dL RDW Std Deviation (36.4-46.3) fL RDW Coeff of Jackie (11.5-14.5) % Plt Count (130-400) K/uL MPV (7.4-10.4) fL Neutrophils % (Manual) % Lymphocytes % (Manual) % Monocytes % (Manual) % Neutrophils # (Manual) (1.4-6.5) K/uL Total Absolute Neuts (1.4-6.5) K/uL Lymphocytes # (Manual) (1.2-3.4) K/uL Total Abs Lymphocytes (1.2-3.4) K/uL Monocytes # (Manual) (0.11-0.59) K/uL PT (9.0-12.0) Seconds INR (0.9-1.1) APTT (21.0-31.0) Seconds PTT Ratio VBG pH (7.36-7.41) VBG pCO2 (38-50) mmHg VBG pO2 mmHg VBG HCO3 mmol/L VBG O2 Saturation % VBG Base Excess mEq/L Barometric Pressure mm/Hg Sodium (136-145) mmol/L Potassium (3.5-5.1) mmol/L Chloride (98-107) mmol/L Carbon Dioxide (21-32) mmol/L Anion Gap (3-11) BUN (7-18) mg/dl Creatinine (0.6-1.2) mg/dl Est Cr Clr Drug Dosing ml/min Est GFR ( Amer) Est GFR (Non-Af Amer) BUN/Creatinine Ratio (10-20) Glucose (70-99) mg/dl POC Glucose 374 H* (70-99) mg/dl Lactate (0.4-2.0) mmol/L Calcium (8.5-10.1) mg/dl Phosphorus (2.5-4.9) mg/dl Magnesium (1.8-2.4) mg/dl Total Bilirubin (0.2-1) mg/dl Direct Bilirubin (0-0.2) mg/dl AST (15-37) U/L ALT (12-78) U/L Alkaline Phosphatase (45-117) U/L Troponin I (0-0.045) ng/ml NT-Pro-B Natriuret Pep (0-900) pg/ml Total Protein (6.4-8.2) gm/dl Albumin (3.4-5.0) gm/dl Globulin (2.5-4.0) gm/dl Albumin/Globulin Ratio (0.9-2) Beta-Hydroxybutyric Acd (0.2-2.81) mg/dl Procalcitonin (0-0.5) ng/ml TSH (0.300-4.500) uIu/ml Free T4 (0.8-1.6) ng/dl Urine Color Yellow Urine Appearance Clear (Clear) Urine pH 6.5 (4.5-7.5) Ur Specific Atkins 1.016 (1.000-1.030) Urine Protein 1+ H (Negative) Urine Glucose (UA) 3+ H (Negative) Urine Ketones Negative (Negative) Urine Blood 1+ H (Negative) Urine Nitrite Negative (Negative) Urine Bilirubin Negative (Negative) Urine Urobilinogen Negative (Negative) Ur Leukocyte Esterase Negative (Negative) Urine WBC (Auto) 1-5 (0-5) /hpf Urine RBC (Auto) 5-10 H (0-4) /hpf U Hyaline Cast (Auto) 0 (0-5) /lpf U Epithel Cells (Auto) 0-5 (0-5) /lpf Urine Bacteria (Auto) Negative (Negative) Administered Medications Discontinued Medications Sodium Chloride (Nss) 500 mls @ 999 mls/hr IV .Q31M ONE Stop: 01/04/20 23:09 Last Infusion: 01/05/20 00:49 Dose: 0 mls/hr Documented by: [id number] Admin: 01/04/20 22:46 Dose: 999 mls/hr Documented by: [id number] Insulin Human Regular (Novolin-R Insulin Per Unit Charge) 10 units IV NOW STA Stop: 01/04/20 20:44 Last Admin: 01/04/20 21:01 Dose: 10 units Documented by: [id number] Cosigned by: [id number] Ioversol (Optiray 320 125ml) 116 ml IV ONCE ONE Stop: 01/04/20 21:22 Last Admin: 01/04/20 21:21 Dose: 1 ml Documented by: [id number] Discharge Plan Visit Data Chief Complaint: Hypertension Stated Complaint: HTN/BILAT LEG EDEMA ED Provider: Ronald Stevenson Discharge Problem: Multifocal pneumonia, Tracheostomy in place, Chronic pulmonary aspiration, Hyperglycemia Patient Disposition: Admitted As Inpatient Forms Stand Alone Forms: [facility] Prescriptions Prescriptions: No Action promethazine 12.5 mg tablet 12.5 mg PO Q8 PRN (Reason: nausea and vomiting) Qty: 30 RF: 3 albuterol sulfate [Ventolin HFA] 90 mcg/actuation HFA aerosol inhaler 2 puffs INH QID PRN (Reason: shortness of breath or wheezing) Qty: 18 RF: 5 fluconazole 150 mg tablet 150 mg PO DAILY PRN (Reason: candidiasis) Qty: 7 RF: 1 calcium carbonate [Oyster Shell Calcium 500] 500 mg calcium (1,250 mg) tablet 500 mg PO TID Qty: 270 RF: 3 Novolog U-100 Insulin aspart 100 unit/mL solution 70 units subcut .COMPLEX 90 Days Qty: 70 RF: 3 atorvastatin 10 mg tablet 10 mg PO HS Qty: 90 RF: 3 Therems-M 27-0.4 mg tablet 1 tab PO DAILY Qty: 30 RF: 5 fexofenadine [Allergy Relief (fexofenadine)] 180 mg tablet 180 mg PO HS Qty: 30 RF: 5 montelukast 10 mg tablet 10 mg PO PM Qty: 30 RF: 5 citalopram 40 mg tablet 40 mg PO QAM Qty: 30 RF: 5 Breo Ellipta 100-25 mcg/dose blister with device 1 inh INHALATION DAILY Qty: 1 RF: 5 amoxicillin-pot clavulanate [Augmentin] 500-125 mg tablet 1 tab PO BID Qty: 60 RF: 3 furosemide 20 mg tablet 20 mg PO DAILY PRN (Reason: weight gain) Qty: 30 RF: 3 levothyroxine 125 mcg tablet 125 mcg PO DAILY Qty: 90 RF: 3 prednisone 20 mg tablet 20 mg PO DAILY Qty: 20 RF: 0 ertapenem 1 gram recon soln 1 g IM DAILY RF: 0 (DME) Easy Touch FlipLock Insulin 1 mL 29 gauge x 1/2" syringe See Rx Instructions .ROUTE .MEDSUPPLY Qty: 500 RF: 0 (DME) Quick-Set Paradigm infusion set See Dose Instructions .ROUTE .MEDSUPPLY RF: 0 (DME) Trly Uniqcom G5 Transmitter device See Rx Instructions .ROUTE .MEDSUPPLY Qty: 1 RF: 0 acetylcysteine 200 mg/mL (20 %) solution 4 ml INHALATION BID Qty: 240 RF: 5 aspirin 81 mg tablet,delayed release (DR/EC) 81 mg PO Q2D RF: 0 albuterol sulfate 2.5 mg /3 mL (0.083 %) solution for nebulization 2.5 mg continuous nebulization BID RF: 0 albuterol sulfate 2.5 mg /3 mL (0.083 %) Solution For Nebulization 2.5 mg INHALATION Q4H PRN (Reason: .CHEST DISCOMFORT) RF: 0 clotrimazole-betamethasone 1-0.05 % cream 1 appln TOP DAILY PRN (Reason: rash) RF: 0 clotrimazole 1 % Cream 1 applic TOPICAL TID PRN (Reason: .RASH AROUND TRACH) RF: 0 Novolin N Flexpen 100 unit/mL (3 mL) Insulin Pen 0 unit SUBCUT .DAILY/UD RF: 0 cholecalciferol (vitamin D3) 50 mcg (2,000 unit) Capsule 100 mcg PO DAILY RF: 0 Colgate Phos Flur 15 ml mucous membrane HS RF: 0 donepezil 5 mg tablet 5 mg PO DAILY RF: 0 acetaminophen [Tylenol] 325 mg Tablet 650 mg PO Q4H MDD 4000MG PRN (Reason: Pain) RF: 0 Basaglar KwikPen U-100 Insulin 100 unit/mL (3 mL) insulin pen See Rx Instructions SQ DAILY RF: 0 Referrals Referrals: Vladimir Lucio MD [Primary Care Provider] - Discharge Problem: Chronic pulmonary aspiration Qualifiers: Encounter type: sequela Qualified Code(s): T17.908S - Unspecified foreign body in respiratory tract, part unspecified causing other injury, sequela
[2020-01-04 19:43] LABS: Hematocrit (blood only) 34.2 % (37-47); Hemoglobin 10.8 g/dL (12.0-16.0); Mean Corpuscular Hemoglobin 32.7 pg (25-34); Mean Corpuscular Hgb Conc 31.6 g/dL (32-36); Mean Corpuscular Volume 103.6 fL (80-100); Mean Platelet Volume 10.3 fL (7.4-10.4); Platelet Count 302 K/uL (130-400); RDW Coefficient of Variation 14.7 % (11.5-14.5); RDW Standard Deviation 55.5 fL (36.4-46.3); White Blood Count 13.89 K/uL (4.8-10.8)
[2020-01-04 19:56] LABS: Base Excess VBG 6.7 mEq/L; HCO3 VBG 34 mmol/L; Oxygen Saturation VBG < 60.0 %; PCO2 VBG 60 mmHg (38-50); PO2 VBG 28 mmHg; pH VBG 7.37 (7.36-7.41)
[2020-01-04 19:57] LABS: INR 1.1 (0.9-1.1); Partial Thromboplastin Ratio 0.9; Partial Thromboplastin Time 25.9 Seconds (21.0-31.0); Prothrombin Time 11.4 Seconds (9.0-12.0)
--- NOTE | 2020-01-04 20:06 | XRay Report ---
XR chest 1V portable HISTORY: SEPSIS COMPARISON: Chest 12/23/2019. FINDINGS: No pneumothorax. Trace right pleural effusion. The heart remains mildly enlarged. Tracheost oscar tube terminates at the mid trachea. Right subclavian Port-A-Cath runs at the SVC. Mild diffuse in terstitial thickening persists. Patchy bibasilar airspace opacities have slightly improved. Old, heal ed bilateral rib fractures are noted. Right-sided aortic arch, unchanged. IMPRESSION: 1. Bibasilar airspace opacities have improved. 2. Mild interstitial pulmonary edema and trace right pleural effusion. ACT 112: Negative or not required by law. Electronically signed by: Alvaro Alvarado M.D. 01/04/2020 8:05 PM
[2020-01-04 20:07] LABS: ALC (manual) 0.28 K/uL (1.2-3.4); ANC (manual) 13.33 K/uL (1.4-6.5); Lymphocytes # (manual) 0.28 K/uL (1.2-3.4); Monocytes # (manual) 0.28 K/uL (0.11-0.59); Neutrophils # (manual) 13.33 K/uL (1.4-6.5)
[2020-01-04 20:08] LABS: Appearance Urine Clear (Clear); Bacteria Urine Automated Negative (Negative); Bilirubin Urine Negative (Negative); Blood Urine 1+ (Negative); Cast Urine Automated 0 /lpf (0-5); Color Urine Yellow; Epithelial Cell Urine Auto 0-5 /lpf (0-5); Glucose Urine UA 3+ (Negative); Ketones Urine Negative (Negative); Leukocyte Esterase Urine Negative (Negative); Nitrite Urine Negative (Negative); Protein Urine 1+ (Negative); Specific Gravity Urine 1.016 (1.000-1.030); Urobilinogen Urine Negative (Negative); pH Urine 6.5 (4.5-7.5)
[2020-01-04 20:39] LABS: Alanine Aminotransferase 28 U/L (12-78); Albumin Globulin Ratio 0.6 (0.9-2); Albumin Level 2.2 gm/dl (3.4-5.0); Alkaline Phosphatase 120 U/L (45-117); Aspartate Aminotransferase 6 U/L (15-37); BUN Creatinine Ratio 28.3 (10-20); Bilirubin Direct 0.1 mg/dl (0-0.2); Bilirubin,Total 0.3 mg/dl (0.2-1); Blood Urea Nitrogen 31 mg/dl (7-18); Calcium 8.4 mg/dl (8.5-10.1); Carbon Dioxide 32 mmol/L (21-32); Chloride 100 mmol/L (98-107); Creatinine Clr Calc Pharmacy 43.5 ml/min; Est GFR (African American) 66.9; Est GFR (Non-African American) 57.7; Glucose 487 mg/dl (70-99); Magnesium 1.9 mg/dl (1.8-2.4); NT Pro B Type Natriuretic Pept 453 pg/ml (0-900); Phosphorus 3.4 mg/dl (2.5-4.9); Potassium 5.2 mmol/L (3.5-5.1); Sodium 136 mmol/L (136-145); Thyroid Stimulating Hormone 0.125 uIu/ml (0.300-4.500); Total Protein 6.2 gm/dl (6.4-8.2); Troponin I < 0.015 ng/ml (0-0.045)
[2020-01-04] MEDS ORDERED: NovoLIN-R INSULIN PER UNIT CHARGE IV STA (20:43)
[2020-01-04 21:02] LABS: Beta-Hydroxybutyrate 5.33 mg/dl (0.2-2.81)
[2020-01-04] MEDS ORDERED: OPTIRAY 320 125ml IV ONE (21:21)
[2020-01-04] MEDS ORDERED: SODIUM CHLORIDE 0.9% 500 ML IV ONE (22:39)
--- NOTE | 2020-01-05 00:06 | History & Physical Report ---
Date of Service January 05, 2020 Assessment & Plan (1) Diabetes type 1, controlled: Patient with brittle Type I DM - presenting with hyperglycemia today. She has and insulin pump in-situ, reportedly received 2 additional boluses this afternoon. BS remains elevated on arrival -DC insulin pump for now -Lantus 19u now and daily -ISS with CF=20, CR=10 -Glycemic management consultation appreciated - patient is well known to Pharmacy and Hospitalist services -Type I DM diet as tolerated -Goal BS 150-200 Present on Admission?: Yes (2) Hyperglycemia: As above -Lantus with ISS -Glycemic management Present on Admission?: Yes (3) Multifocal pneumonia: Patient afebrile, HD stable. She does have a slightly increased le ukocytosis when compared to prior. No clinical evidence of worsening PNA at this time -Continue Ertapenem -Follow cultures -Continue supplemental O2 at baseline levels - 4L NC and Trach collar -Repeat CXR in AM -Contact isolation as patient with history of ESBL infection in the past -Continue Prednisone taper Present on Admission?: Yes (4) Chronic pulmonary aspiration: Chronic issue. No acute episode observed prior to arrival -Aspiration precautions -Trach care q shift and PRN -Continue Albuterol and Acetylcysteine inhaled Present on Admission?: Yes (5) Down syndrome: Noted Present on Admission?: Yes (6) Depression: Chronic. Stable -Continue Citalopram Present on Admission?: Yes (7) Chronic obstructive pulmonary disease: Chronic. Stable -Continue Fluticasone/Vilanterol -Albuterol PRN -Supplemental O2 Present on Admission?: Yes (8) Dementia: Chronic. Stable -Continue Aricept Present on Admission?: Yes (9) Hypothyroidism: Chronic. TSH low today at 0.125, FTF normal at 1.3 -Continue Synthroid 125mcg po daily -Continue outpatient monitoring F/E/N - Heplock. Monitor electrolytes. Diabetic diet Ppx - Low risk for DVT Code - DNR/DNI Dispo - Admit to medical Present on Admission?: Yes History of Present Illness Chief Complaint: Hypertension Hyperglycemia Primary Care Provider: Vladimir Lucio MD Valoire Early is a 54yo C female with history of Down syndrome, chronic tracheostomy, frequent aspiration with PNA, presenting from her shelter with HTN and Hyperglycemia as well as LE edema. Patient was recently admitted to [facility] from 12/23/19 - 12/25/19 with hypoxic respiratory failure secondary to RLL PNA likely from aspiration. She was treated with Vancomycin and Zosyn while admitted and was discharged on Augmentin for an additional 8 days. After discharge the patient was started on Ertapenem 1gm IV daily x 14 days as well as a prednisone taper by her PCP. She returns today with complaint of LE edema that was noticed at appx 11:00AM on the day of admission. Her blood sugar was 148 this AM but steadily increased throughout the day - was over 400 prior to arrival. Also with increased blood pressure at home to 193/90. On arrival patient hypertensive in LUE to 215/95 with normal blood pressure in RUE. Per consultant, BP must be taken in RUE due to h/o aortic repair. Patient complaining only of lower abdominal discomfort. ER Course: Insulin, NSS Allergies Allergy/AdvReac Type Severity Reaction Status Date / Time cefaclor Allergy Intermediate HIVES Verified 01/04/20 08:52 Cephalosporins Allergy Intermediate rash per Verified 01/04/20 08:52 mother sertraline AdvReac Mild INTOLERANCE Verified 01/04/20 08:52 Home Medications Home Medications Medication Instructions Recorded Confirmed Type promethazine 12.5 mg tablet 12.5 mg PO Q8 PRN #30 tab 12/23/18 01/04/20 Rx blood-glucose transmitter #1 ea 02/26/19 12/29/19 History infusion set for insulin pump ea 02/26/19 12/29/19 History insulin syringe,safetyneedle 1 mL #500 ea 02/26/19 12/29/19 History 29 gauge x 1/2" albuterol sulfate 90 mcg/actuation 2 puffs INH QID PRN #18 gm 03/25/19 01/04/20 Rx aerosol inhaler fluconazole 150 mg tablet 150 mg PO DAILY PRN #7 tab 03/25/19 01/04/20 Rx calcium carbonate 500 mg calcium 500 mg PO TID #270 tab 04/03/19 01/04/20 Rx (1,250 mg) tablet Novolog U-100 Insulin aspart 100 70 units SUBCUT .COMPLEX 90 Days 06/09/19 01/04/20 Rx unit/mL subcutaneous solution #70 ml NS atorvastatin 10 mg tablet 10 mg PO HS #90 tab 07/02/19 01/04/20 Rx citalopram 40 mg tablet 40 mg PO QAM #30 tab 07/20/19 01/04/20 Rx fexofenadine 180 mg tablet 180 mg PO HS #30 tab 07/20/19 01/04/20 Rx montelukast 10 mg tablet 10 mg PO PM #30 tab 07/20/19 01/04/20 Rx multivitamin,dp-yoxh-lolzddih 27 1 tab PO DAILY #30 tab 07/20/19 01/04/20 Rx mg-0.4 mg tablet levothyroxine 125 mcg tablet 125 mcg PO DAILY #90 tab 08/21/19 01/04/20 Rx amoxicillin 500 mg-potassium 1 tab PO BID #60 tab 10/27/19 01/04/20 Rx clavulanate 125 mg tablet fluticasone furoate 100 1 inh INHALATION DAILY #1 inhaler 10/27/19 01/04/20 Rx mcg-vilanterol 25 mcg/dose inhalation powder acetylcysteine 200 mg/mL (20 %) 4 ml INHALATION BID #240 ml 11/19/19 01/04/20 Rx solution furosemide 20 mg tablet 20 mg PO DAILY PRN #30 tab 11/24/19 01/04/20 Rx Basaglar KwikPen U-100 Insulin See Rx Instructions SQ DAILY 12/23/19 01/04/20 History acetaminophen [Tylenol] 650 mg PO Q4H PRN MDD 4000MG 12/23/19 01/04/20 History ertapenem 1 gram solution for 1 g IM DAILY 12/29/19 01/04/20 History injection prednisone 20 mg tablet 20 mg PO DAILY #20 tab 12/29/19 01/04/20 Rx Colgate Phos Flur 15 ml MUCOUS MEMBRANE HS 01/04/20 01/04/20 History albuterol sulfate 2.5 mg CONTINUOUS NEBULIZATION BID 01/04/20 01/04/20 History albuterol sulfate 2.5 mg INHALATION Q4H PRN 01/04/20 01/04/20 History aspirin 81 mg PO Q2D 01/04/20 01/04/20 History cholecalciferol (vitamin D3) 100 mcg PO DAILY 01/04/20 01/04/20 History clotrimazole 1 applic TOPICAL TID PRN 01/04/20 01/04/20 History clotrimazole-betamethasone 1 appln TOP DAILY PRN 01/04/20 01/04/20 History donepezil 5 mg PO DAILY 01/04/20 01/04/20 History insulin NPH isoph U-100 human 0 unit SUBCUT .DAILY/UD 01/04/20 01/04/20 History [Novolin N Flexpen] Past Med/Surg History Medical History Diabetes type 1, controlled History of allergic rhinitis History of athlete's foot History of bacterial pneumonia History of candidiasis of mouth History of chronic bronchitis History of community acquired pneumonia History of constipation History of diarrhea History of dysuria History of edema History of hyperkalemia History of hypotension History of nausea History of sunburn History of tinea corporis History of uncontrolled diabetes Pneumonia Surgical History History of bronchoscopy History of thoracotomy Hx of hand surgery S/P resection of aortic aneurysm Family History Other Diabetes Hypertension Denies family history of Colorectal cancer Social History Smoking Status: Never smoker Second Hand Exposure: No; Hx Alcohol Use: No Hx Substance Use: No Preferred Language: Vietnamese Communication Ability: Impaired 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 Beliefs That Will Affect Care: None marital status: Single Current Living Situation: Personal Care Facility Current Living Situation Comment: [facility] current occupational status: disabled How many Children do You have: 0 Feels Safe at Home: Yes Seatbelt Use: always Assistive Devices: CPAP, Glasses and Oxygen - Continuous Review of Systems Review of Systems: All systems reviewed & are unremarkable except as noted in HPI & below Physical Exam Physical Exam: General: patient resting comfortably, NAD, non-toxic in appearance, AA&O x 4 Skin: warm, dry, intact, no rashes or lesions HEENT: NC/AT, PERRL, EOMI, anicteric sclera, conjunctiva without injection, external ear normal to inspection and nontender, nares patent, moist mucus membranes, dentition intact, no oropharyngeal lesions, neck supple, trachea midline, no LAD, no thyromegaly, no JVD, tracheostomy in place, no bleeding/drainage/erythema Heart: +S1/S2, regular, no m/r/g, right chest port Lungs: equal air entry bilaterally, no rales/rhonchi/wheezes Abd: +BS, soft, NT/ND, no masses/organomegaly/ascites Ext: warm, 2+ pulses in UE/LE bilaterally, no clubbing/cyanosis, non-pitting edema of bilateral LE Neuro: nonfocal, patient AA&O x 4, speech intact, no facial droop, moving all extremities on command with equal strength 5/5 Results & Data Results & Data ([facility]) Vital Signs (Past 12 Hours) Vital Signs Temp Pulse Resp BP Pulse Ox 01/04/20 22:31 52 L 22 122/97 95 01/04/20 22:30 56 L 19 95 01/04/20 22:03 56 L 15 93 01/04/20 22:02 55 L 18 129/114 H 93 01/04/20 22:00 54 L 24 93 01/04/20 21:40 58 L 20 100 01/04/20 21:00 53 L 21 211/95 H 100 01/04/20 20:30 54 L 23 207/95 H 98 01/04/20 20:03 48 L 18 98 01/04/20 20:02 50 L 19 215/95 H 97 01/04/20 20:00 47 L 16 100 01/04/20 19:56 53 L 16 163/84 H 99 01/04/20 19:30 57 L 16 96 01/04/20 19:25 97 01/04/20 19:24 96 01/04/20 19:22 53 L 14 96 01/04/20 19:01 36.9 C 55 L 18 193/93 H 100 Laboratory Results Lab Results 01/04/20 01/04/20 01/04/20 Range/Units 19:26 19:26 19:26 WBC 13.89 H (4.8-10.8) K/uL RBC 3.30 L (4.2-5.4) M/uL Hgb 10.8 L (12.0-16.0) g/dL Hct 34.2 L (37-47) % MCV 103.6 H (80-100) fL MCH 32.7 (25-34) pg MCHC 31.6 L (32-36) g/dL RDW Std Deviation 55.5 H (36.4-46.3) fL RDW Coeff of Jackie 14.7 H (11.5-14.5) % Plt Count 302 (130-400) K/uL MPV 10.3 (7.4-10.4) fL Neutrophils % (Manual) 96.0 % Lymphocytes % (Manual) 2.0 % Monocytes % (Manual) 2.0 % Neutrophils # (Manual) 13.33 H (1.4-6.5) K/uL Total Absolute Neuts 13.33 H (1.4-6.5) K/uL Lymphocytes # (Manual) 0.28 L (1.2-3.4) K/uL Total Abs Lymphocytes 0.28 L (1.2-3.4) K/uL Monocytes # (Manual) 0.28 (0.11-0.59) K/uL PT 11.4 (9.0-12.0) Seconds INR 1.1 (0.9-1.1) APTT 25.9 (21.0-31.0) Seconds PTT Ratio 0.9 VBG pH (7.36-7.41) VBG pCO2 (38-50) mmHg VBG pO2 mmHg VBG HCO3 mmol/L VBG O2 Saturation % VBG Base Excess mEq/L Barometric Pressure mm/Hg Sodium (136-145) mmol/L Potassium (3.5-5.1) mmol/L Chloride (98-107) mmol/L Carbon Dioxide (21-32) mmol/L Anion Gap (3-11) BUN (7-18) mg/dl Creatinine (0.6-1.2) mg/dl Est Cr Clr Drug Dosing ml/min Est GFR ( Amer) Est GFR (Non-Af Amer) BUN/Creatinine Ratio (10-20) Glucose (70-99) mg/dl POC Glucose (70-99) mg/dl Lactate (0.4-2.0) mmol/L Calcium (8.5-10.1) mg/dl Phosphorus (2.5-4.9) mg/dl Magnesium (1.8-2.4) mg/dl Total Bilirubin (0.2-1) mg/dl Direct Bilirubin (0-0.2) mg/dl AST (15-37) U/L ALT (12-78) U/L Alkaline Phosphatase (45-117) U/L Troponin I (0-0.045) ng/ml NT-Pro-B Natriuret Pep (0-900) pg/ml Total Protein (6.4-8.2) gm/dl Albumin (3.4-5.0) gm/dl Globulin (2.5-4.0) gm/dl Albumin/Globulin Ratio (0.9-2) Beta-Hydroxybutyric Acd (0.2-2.81) mg/dl Procalcitonin < 0.05 (0-0.5) ng/ml TSH (0.300-4.500) uIu/ml Free T4 (0.8-1.6) ng/dl Urine Color Urine Appearance (Clear) Urine pH (4.5-7.5) Ur Specific Lentner (1.000-1.030) Urine Protein (Negative) Urine Glucose (UA) (Negative) Urine Ketones (Negative) Urine Blood (Negative) Urine Nitrite (Negative) Urine Bilirubin (Negative) Urine Urobilinogen (Negative) Ur Leukocyte Esterase (Negative) Urine WBC (Auto) (0-5) /hpf Urine RBC (Auto) (0-4) /hpf U Hyaline Cast (Auto) (0-5) /lpf U Epithel Cells (Auto) (0-5) /lpf Urine Bacteria (Auto) (Negative) 01/04/20 01/04/20 01/04/20 Range/Units 19:26 19:26 19:44 WBC (4.8-10.8) K/uL RBC (4.2-5.4) M/uL Hgb (12.0-16.0) g/dL Hct (37-47) % MCV (80-100) fL MCH (25-34) pg MCHC (32-36) g/dL RDW Std Deviation (36.4-46.3) fL RDW Coeff of Jackie (11.5-14.5) % Plt Count (130-400) K/uL MPV (7.4-10.4) fL Neutrophils % (Manual) % Lymphocytes % (Manual) % Monocytes % (Manual) % Neutrophils # (Manual) (1.4-6.5) K/uL Total Absolute Neuts (1.4-6.5) K/uL Lymphocytes # (Manual) (1.2-3.4) K/uL Total Abs Lymphocytes (1.2-3.4) K/uL Monocytes # (Manual) (0.11-0.59) K/uL PT (9.0-12.0) Seconds INR (0.9-1.1) APTT (21.0-31.0) Seconds PTT Ratio VBG pH 7.37 (7.36-7.41) VBG pCO2 60 H (38-50) mmHg VBG pO2 28 mmHg VBG HCO3 34 mmol/L VBG O2 Saturation < 60.0 % VBG Base Excess 6.7 mEq/L Barometric Pressure 735.8 mm/Hg Sodium 136 (136-145) mmol/L Potassium 5.2 H (3.5-5.1) mmol/L Chloride 100 (98-107) mmol/L Carbon Dioxide 32 (21-32) mmol/L Anion Gap 4.0 (3-11) BUN 31 H (7-18) mg/dl Creatinine 1.08 (0.6-1.2) mg/dl Est Cr Clr Drug Dosing 43.5 ml/min Est GFR ( Amer) 66.9 Est GFR (Non-Af Amer) 57.7 BUN/Creatinine Ratio 28.3 H (10-20) Glucose 487 H* (70-99) mg/dl POC Glucose (70-99) mg/dl Lactate 1.3 (0.4-2.0) mmol/L Calcium 8.4 L (8.5-10.1) mg/dl Phosphorus 3.4 (2.5-4.9) mg/dl Magnesium 1.9 (1.8-2.4) mg/dl Total Bilirubin 0.3 (0.2-1) mg/dl Direct Bilirubin 0.1 (0-0.2) mg/dl AST 6 L (15-37) U/L ALT 28 (12-78) U/L Alkaline Phosphatase 120 H (45-117) U/L Troponin I < 0.015 (0-0.045) ng/ml NT-Pro-B Natriuret Pep 453 (0-900) pg/ml Total Protein 6.2 L (6.4-8.2) gm/dl Albumin 2.2 L (3.4-5.0) gm/dl Globulin 4.0 (2.5-4.0) gm/dl Albumin/Globulin Ratio 0.6 L (0.9-2) Beta-Hydroxybutyric Acd 5.33 H (0.2-2.81) mg/dl Procalcitonin (0-0.5) ng/ml TSH 0.125 L (0.300-4.500) uIu/ml Free T4 1.30 (0.8-1.6) ng/dl Urine Color Urine Appearance (Clear) Urine pH (4.5-7.5) Ur Specific Lentner (1.000-1.030) Urine Protein (Negative) Urine Glucose (UA) (Negative) Urine Ketones (Negative) Urine Blood (Negative) Urine Nitrite (Negative) Urine Bilirubin (Negative) Urine Urobilinogen (Negative) Ur Leukocyte Esterase (Negative) Urine WBC (Auto) (0-5) /hpf Urine RBC (Auto) (0-4) /hpf U Hyaline Cast (Auto) (0-5) /lpf U Epithel Cells (Auto) (0-5) /lpf Urine Bacteria (Auto) (Negative) 01/04/20 01/04/20 01/05/20 Range/Units 19:56 22:05 02:30 WBC (4.8-10.8) K/uL RBC (4.2-5.4) M/uL Hgb (12.0-16.0) g/dL Hct (37-47) % MCV (80-100) fL MCH (25-34) pg MCHC (32-36) g/dL RDW Std Deviation (36.4-46.3) fL RDW Coeff of Jackie (11.5-14.5) % Plt Count (130-400) K/uL MPV (7.4-10.4) fL Neutrophils % (Manual) % Lymphocytes % (Manual) % Monocytes % (Manual) % Neutrophils # (Manual) (1.4-6.5) K/uL Total Absolute Neuts (1.4-6.5) K/uL Lymphocytes # (Manual) (1.2-3.4) K/uL Total Abs Lymphocytes (1.2-3.4) K/uL Monocytes # (Manual) (0.11-0.59) K/uL PT (9.0-12.0) Seconds INR (0.9-1.1) APTT (21.0-31.0) Seconds PTT Ratio VBG pH (7.36-7.41) VBG pCO2 (38-50) mmHg VBG pO2 mmHg VBG HCO3 mmol/L VBG O2 Saturation % VBG Base Excess mEq/L Barometric Pressure mm/Hg Sodium (136-145) mmol/L Potassium (3.5-5.1) mmol/L Chloride (98-107) mmol/L Carbon Dioxide (21-32) mmol/L Anion Gap (3-11) BUN (7-18) mg/dl Creatinine (0.6-1.2) mg/dl Est Cr Clr Drug Dosing ml/min Est GFR ( Amer) Est GFR (Non-Af Amer) BUN/Creatinine Ratio (10-20) Glucose (70-99) mg/dl POC Glucose 374 H* 390 H* (70-99) mg/dl Lactate (0.4-2.0) mmol/L Calcium (8.5-10.1) mg/dl Phosphorus (2.5-4.9) mg/dl Magnesium (1.8-2.4) mg/dl Total Bilirubin (0.2-1) mg/dl Direct Bilirubin (0-0.2) mg/dl AST (15-37) U/L ALT (12-78) U/L Alkaline Phosphatase (45-117) U/L Troponin I (0-0.045) ng/ml NT-Pro-B Natriuret Pep (0-900) pg/ml Total Protein (6.4-8.2) gm/dl Albumin (3.4-5.0) gm/dl Globulin (2.5-4.0) gm/dl Albumin/Globulin Ratio (0.9-2) Beta-Hydroxybutyric Acd (0.2-2.81) mg/dl Procalcitonin (0-0.5) ng/ml TSH (0.300-4.500) uIu/ml Free T4 (0.8-1.6) ng/dl Urine Color Yellow Urine Appearance Clear (Clear) Urine pH 6.5 (4.5-7.5) Ur Specific Lentner 1.016 (1.000-1.030) Urine Protein 1+ H (Negative) Urine Glucose (UA) 3+ H (Negative) Urine Ketones Negative (Negative) Urine Blood 1+ H (Negative) Urine Nitrite Negative (Negative) Urine Bilirubin Negative (Negative) Urine Urobilinogen Negative (Negative) Ur Leukocyte Esterase Negative (Negative) Urine WBC (Auto) 1-5 (0-5) /hpf Urine RBC (Auto) 5-10 H (0-4) /hpf U Hyaline Cast (Auto) 0 (0-5) /lpf U Epithel Cells (Auto) 0-5 (0-5) /lpf Urine Bacteria (Auto) Negative (Negative) Diagnostic Findings XR chest 1V portable HISTORY: SEPSIS COMPARISON: Chest 12/23/2019. FINDINGS: No pneumothorax. Trace right pleural effusion. The heart remains mildly enlarged. Tracheostomy tube terminates at the mid trachea. Right subclavian Port-A-Cath runs at the SVC. Mild diffuse interstitial thickening persists. Patchy bibasilar airspace opacities have slightly improved. Old, healed bilateral rib fractures are noted. Right-sided aortic arch, unchanged. IMPRESSION: 1. Bibasilar airspace opacities have improved. 2. Mild interstitial pulmonary edema and trace right pleural effusion. ACT 112: Negative or not required by law. Electronically signed by: Alvaro Alvarado M.D. 01/04/2020 8:05 PM Dictated: 01/04/202002 Transcribed: 01/04/202002 CTA Chest - Right sided aortic arch. No aneurysm or dissection. Great vessels are widely patent. Pulmonary artery tree is well opacified with contrast. No PE are identified. Heart is mildly enlarged. No pericardial effusion is seen. No mediastinal LAD or mass is present. Lung volumes are moderate. Streaky infi ltrates in both lower lobes suspicious for PNA. Code Status & VTE Plan Code Status DNR/DNI PG Care Time/CCT Total # of Minutes Spent Total Time Spent with Patient: Total time spent is greater than 50% in coordination of care (as documented) at patient's floor/unit and/or counseling patient: Coding Level of Care Code 29469 Initial Inpt Care Lvl 3 Diagnoses Diabetes type 1, controlled E10.9 Diabetes mellitus complication status: without complication Hyperglycemia R73.9 Multifocal pneumonia J18.9 Chronic pulmonary aspiration T17S Encounter type: sequela Down syndrome Q90.9 Depression F32.9 Depression Type: unspecified Chronic obstructive pulmonary disease J44.9 COPD type: unspecified COPD Dementia F03.90 Dementia type: unspecified type Dementia behavioral disturbance: without behavioral disturbance Hypothyroidism E03.9 Hypothyroidism type: unspecified (1) Diabetes type 1, controlled Diabetes mellitus complication status: without complication Qualified Code(s): E10.9 - Type 1 diabetes mellitus without complications (2) Chronic pulmonary aspiration Encounter type: sequela Qualified Code(s): T1S - Unspecified foreign body in respiratory tract, part unspecified causing other injury, sequela (3) Depression Depression Type: unspecified Qualified Code(s): F32.9 - Major depressive disorder, single episode, unspecified (4) Hypothyroidism Hypothyroidism type: unspecified Qualified Code(s): E03.9 - Hypothyroidism, unspecified (5) Chronic obstructive pulmonary disease COPD type: unspecified COPD Qualified Code(s): J44.9 - Chronic obstructive pulmonary disease, unspecified (6) Dementia Dementia type: unspecified type Dementia behavioral disturbance: without behavioral disturbance Qualified Code(s): F03.90 - Unspecified dementia without behavioral disturbance
[2020-01-05] MEDS ORDERED: GLUCAGON FOR INJ 1 MG VIAL SQ PRN (02:28)
[2020-01-05] MEDS ORDERED: DEXTROSE 50% 50 ML SYRINGE IV PRN (02:28)
[2020-01-05] MEDS ORDERED: CARBOHYDRATES FOR HYPOGLYCEMIA PO PRN (02:28)
[2020-01-05] MEDS ORDERED: GLUCOSE 10 TABS/TUBE PO PRN (02:28)
[2020-01-05] MEDS ORDERED: PROMETHAZINE HCL 25 MG TAB PO PRN (02:28)
[2020-01-05] MEDS ORDERED: ALBUTEROL 0.083% NEBU SOLN 3 ML VIAL INH PRN (02:28)
[2020-01-05] MEDS ORDERED: GLUCOSE 40% GEL 15 GM TUBE PO PRN (02:28)
[2020-01-05] MEDS ORDERED: PHARMACY GLYCEMIC MGMT CONSULT PRN (02:45)
[2020-01-05] MEDS ORDERED: ERTAPENEM SODIUM 1,000 MG in SODIUM CHLORIDE 0.9% 50 ML IV SCH (03:00)
[2020-01-05] MEDS: INSULIN GLARGINE SOLOSTAR 100 UNITS/ML 3 ML PEN SC SCH (03:32)
[2020-01-05] MEDS: INSULIN ASPART 100 UNITS/ML 3 ML PEN SC SCH ×5 (03:33→21:10)
[2020-01-05] MEDS: LEVOTHYROXINE SODIUM 125 MCG TABLET PO SCH (06:20)
[2020-01-05 06:35] LABS: Basophils # (auto) 0.02 K/uL (0-0.2); Basophils % (auto) 0.2 %; Eosinophils # (auto) 0.01 K/uL (0-0.5); Eosinophils % (auto) 0.1 %; Hematocrit (blood only) 31.5 % (37-47); Hemoglobin 9.9 g/dL (12.0-16.0); Immature Granulocytes # (auto) 0.07 K/uL (0.00-0.02); Immature Granulocytes % (auto) 0.7 %; Lymphocytes # (auto) 1.66 K/uL (1.2-3.4); Mean Corpuscular Hemoglobin 32.5 pg (25-34); Mean Corpuscular Hgb Conc 31.4 g/dL (32-36); Mean Corpuscular Volume 103.3 fL (80-100); Monocytes # (auto) 0.62 K/uL (0.11-0.59); Neutrophils # (auto) 8.01 K/uL (1.4-6.5); Platelet Count 310 K/uL (130-400); RDW Coefficient of Variation 14.8 % (11.5-14.5); Red Blood Count 3.05 M/uL (4.2-5.4); White Blood Count 10.39 K/uL (4.8-10.8)
[2020-01-05] MEDS ORDERED: ACETYLCYSTEINE 20% INHAL SOLN 30ML INH SCH (07:00)
[2020-01-05 07:22] LABS: Alanine Aminotransferase 22 U/L (12-78); Alkaline Phosphatase 104 U/L (45-117); Anion Gap 0 (3-11); Aspartate Aminotransferase 7 U/L (15-37); BUN Creatinine Ratio 30.2 (10-20); Bilirubin Direct < 0.1 mg/dl (0-0.2); Bilirubin,Total 0.3 mg/dl (0.2-1); Blood Urea Nitrogen 26 mg/dl (7-18); Calcium 8.2 mg/dl (8.5-10.1); Carbon Dioxide 37 mmol/L (21-32); Chloride 104 mmol/L (98-107); Est GFR (African American) 86.9; Glucose 258 mg/dl (70-99); Potassium 4.2 mmol/L (3.5-5.1); Sodium 141 mmol/L (136-145); Total Protein 5.3 gm/dl (6.4-8.2)
[2020-01-05] MEDS: ALBUTEROL 0.083% NEBU SOLN 3 ML VIAL NEB SCH ×2 (07:23→19:02)
--- NOTE | 2020-01-05 08:06 | CT Scan Report ---
CHEST CTA for PULMONARY ARTERIES CT DOSE: 711.21 mGy.cm HISTORY: Pulmonary embolus. Shortness of breath. TECHNIQUE: Multiaxial CT images of the chest were performed following the intravenous administration of contrast to evaluate the pulmonary arteries. Maximal intensity projection images were also obtaine d. A dose lowering technique was utilized adhering to the principles of ALARA. COMPARISON STUDY: Chest 01/04/2020. Chest CTA 05/20/2015. FINDINGS: There is a right-sided aortic arch. No evidence for an aortic dissection. The majority of t he bilateral lower lobe and right middle lobe segmental and subsegmental pulmonary arteries are nondi agnostic due to motion artifact. However, the remaining pulmonary arteries show no filling defects to suggest pulmonary embolus. Mild mediastinal lymphadenopathy is not simply changed. This is likely be nign given the chronic process. Trace right pleural effusion. Limited views of the upper abdomen demo nstrate a normal liver and spleen. There is mild to moderate body wall edema. No suspicious lytic or blastic osseous lesions. A tracheostomy tube appears in good position. No pneumothorax. Partial opaci fication of the left upper and lower lobe bronchi with mucoid material. Small amount of mucoid materi al within the right mainstem bronchus. Bilateral mid to lower lung zone patchy and nodular airspace o pacities, left greater than right. This is nonspecific but favors a pneumonia could be due to chronic aspiration given the mucoid opacification of the bronchi. The esophagus is a small amount of fluid w ithin the esophagus. No evidence for a tracheoesophageal fistula. IMPRESSION: 1. No evidence for pulmonary embolus. 2. Right-sided aortic arch. 3. No change in the mild mediastinal lymphadenopathy. 4. Trace right pleural effusion. 5. Patchy bilateral mid to lower lung zone airspace opacities. This likely represents a pneumonia. 6. The tracheostomy tube appears in good position. 7. Partial mucoid opacification of the bilateral lower lobe and left upper lobe bronchi. ACT 112: Negative or not required by law. Electronically signed by: Alvaro Alvarado M.D. 01/05/2020 8:04 AM
[2020-01-05] MEDS ORDERED: predniSONE 20 MG TAB PO SCH (09:00)
[2020-01-05] MEDS ORDERED: INSULIN HUMAN NPH SC SCH (09:00)
[2020-01-05] MEDS: DONEPEZIL HCL 5 MG TAB PO SCH (09:45)
[2020-01-05] MEDS: CITALOPRAM 40 MG TAB PO SCH (09:45)
[2020-01-05] MEDS: ACETAMINOPHEN 325 MG TAB PO PRN (09:45)
--- NOTE | 2020-01-05 09:45 | Electrocardiogram Report ---
Test Reason : Blood Pressure : / mmHG Vent. Rate : 055 BPM Atrial Rate : 055 BPM P-R Int : 140 ms QRS Dur : 084 ms QT Int : 468 ms P-R-T Axes : 057 052 024 degrees QTc Int : 447 ms Poor data quality, interpretation may be adversely affected Sinus bradycardia Incomplete right bundle branch block Nonspecific T wave abnormality Septal leads Abnormal ECG When compared with ECG of 23-DEC-2019 05:03, Vent. rate has decreased BY 33 BPM Otherwise no significant change Confirmed by Antonio Floyd ([id number]) on 01/05/2020 9:44:54 AM Referred By: REFERRED SELF Confirmed By:Antonio Floyd
[2020-01-05] MEDS: FLUTICASONE/VILANTEROL 100/25MCG 14 PUFFS/INHALER INH SCH (09:46)
--- NOTE | 2020-01-05 09:54 | XRay Report ---
XR chest 2V PA/lateral HISTORY: Shortness of breath. Possible pneumonia. Abnormal chest CT. COMPARISON: Chest 01/04/2020. FINDINGS: No pneumothorax. Trace right pleural effusion. There are patchy bilateral mid to lower lung zone airspace opacities. Mild diffuse interstitial thickening. A tracheostomy tube appears in good p osition. Right-sided aortic arch is again noted. There is a right subclavian Port-A-Cath which demons trates at the SVC. The heart remains enlarged. IMPRESSION: 1. No change in the bilateral mid to lower lung zone airspace opacities. This may represent a pneumon ia. 2. Mild interstitial pulmonary edema and a trace right pleural effusion persists. 3. Right-sided aortic arch is again noted. ACT 112: Negative or not required by law. Electronically signed by: Alvaro Alvarado M.D. 01/05/2020 9:52 AM
--- NOTE | 2020-01-05 10:11 | Pharmacy Report ---
Pharmacy Glycemic Short Note 2 - Date of Service January 05, 2020 - Glycemic Short BSG Results (Last 24 hours): 01/04/20 01/04/20 01/05/20 19:26 22:05 02:30 Glucose 487 H* POC Glucose 374 H* 390 H* 01/05/20 01/05/20 06:23 07:56 Glucose 258 H POC Glucose 218 H OUTPATIENT ANTIDIABETIC REGIMEN: * NovoLog insulin pump * Total basal dose ~ 20 units/day * CHO ratio: with BF/lunch/dinner respectively * CF = 40 * Total daily dose 50 units ASSESSMENT: * 54yo T1DM female known to pharmacy from previous admissions/glycemic consults. Most recently 12/23/19. * Pt is maintained on insulin pump therapy with adequate control as an outpatient. Typically her insulin pump is not sufficient for adequate glycemic control while admitted secondary to steroid bursts, acute stress/illness, in fection, etc. Will hold her pump for admission and utilize SQ basal bolus insulin regimen which is recommended for inpatient glycemic control. * Will continue her usual outpatient basal insulin dose of ~19-20 units. * Will add NPH to cover her increased dose of prednisone once daily * NPH insulin is used to counteract the hyperglycemic effect of prednisone. The rationale for this approach is that the pharmacodynamics profile of NPH, with a peak effect of 4-8hrs and duration of action of 12-16hrs, mirrors the pharmacodynamics of prednisone. NPH should be dosed at the same time that prednisone is given * The dose of NPH given is dependent on the steroid dose given. For doses of prednisone 20mg/day the NPH dose should be 0.2 units/kg * NPH dosing above is given in addition to patients baseline basal insulin and prandial needs * Will also slightly tighten CR since steroids have their most profound effect on post-prandial hyperglycemia * Titrate parameters based on BSG trends PLAN FOR INPATIENT GLYCEMIC CONTROL: * Hold outpatient insulin pump * Basal insulin * Lantus 19 units SQ daily in AM * Bolus insulin * NovoLog per scale ACHS or Q6hrs while NPO * Goal Range: Low 120 mg/dL - High 150 mg/dL * Correction Factor: 20 mg/dL/unit * Nutritional / Prandial insulin per carb ratio of 1 unit per 7 grams CHO consumed * Steroid induced hyperglycemia * NPH 14 units (0.2 units/kg) to cover 20 mg of prednisone. PLAN FOR DISCHARGE: * No changes needed to outpatient regimen. Pt with adequate glycemic control per recent A1c of 8.2% (this is in her goal range based on co-morbidities). May need to adjust CHO ratio and/or basal rate on insulin pump if high dose prednisone is continued at [place].
--- NOTE | 2020-01-05 16:12 | History & Physical Bridge Note ---
Date of Service January 05, 2020 History & Physical Bridge Note I have examined the patient, reviewed the History & Physical and in the interval since the performance of the History & Physical I have noted the following changes of clinical significance: Pt is OOB to chair, mom at bedside. Mom reports pt is just not acting like herself, not that talkative. She had a BM, answers questions and interacts appropriately. Not really coughing as per mom. Chart reviewed Vitals reviewed NAD, pleasant, awake RRR no mgr Lungs with some rhonchi and decreased BS on right, clearer on left Abd +BS soft NT ND Ext no edema 54 yo female here with h/o tracheostomy and aspiration PNA, here with elevated BP and hyperglycemia, possible continuing PNA. Procalcitonin negative but mom reports continued AMS likely reprsenting metabolic encephalopathy, possibly from PNA Was on ZOsyn and did very well last admission, sputum cx moderate normal mary at that time. Now on ertapenem which can also cause AMS Will dc ertapenem and convert to Zosyn and add azithro for atypical coverage QTc is normal on admission ECG Consider Pulm consult to see if needs bronchoscopy if not improving by tomorrow Added Chest PT bid continue bronchodilators, Mucomyst nebs, trach care
[2020-01-05] MEDS ORDERED: PIPERACILL/TAZOBAC CONSULT ACTIVE PRN (16:21)
[2020-01-05] MEDS ORDERED: AZITHROMYCIN 500 MG in DEXTROSE 5% 250 ML IV ONE (17:00)
[2020-01-05] MEDS ORDERED: PIPERACILLIN/TAZOBACTAM 4.5 GM in DEXTROSE 5% 100 ML IV ONE (17:00)
[2020-01-05] MEDS: SODIUM CHLOR 7% 4 ML NEB NEB SCH (19:02)
[2020-01-05] MEDS: ACETYLCYSTEINE 20% INHAL SOLN 4ML ***DISPENSED BY RESP. INH SCH (19:02)
[2020-01-05] MEDS: FEXOFENADINE HCL 180 MG TAB PO SCH (20:48)
[2020-01-05] MEDS: ATORVASTATIN 10 MG TAB PO SCH (20:48)
[2020-01-05] MEDS: MONTELUKAST SODIUM 10 MG TABLET PO SCH (20:49)
[2020-01-05] MEDS ORDERED: [UNRECOGNIZED DRUG - OTHER] mucous membrane SCH (21:00)
[2020-01-05] MEDS ORDERED: VANCOMYCIN CONSULT ACTIVE PRN (21:11)
--- NOTE | 2020-01-05 21:18 | Communication Note ---
Date of Service: January 05, 2020 Notified that pt was growing gram + cocci in clusters in ONE bottle. A loading dose of vancomycin was ordered. Resident Activity Tracking Resident Involvement: Senior Account Manager Coverage Note Care Provided: Adult Hospital Medicine
[2020-01-05] MEDS ORDERED: VANCOMYCIN HCL 1,750 MG in SODIUM CHLORIDE 0.9% 500 ML IV ONE (21:45)
[2020-01-05] MEDS: PIPERACILLIN/TAZOBACTAM 3.375 GM in DEXTROSE 5% 100 ML IV SCH (22:17)
--- NOTE | 2020-01-06 04:38 | Pharmacy Report ---
Pharmacy Abx Initial Consult - Date of Service January 06, 2020 - Pharmacy Dosing Scope Date of Consult: 01/06/20 Consultation requested by: Dr. Stewart Pharmacy is consulted to initiate Vancomycin IV dosing therapy, order appropriate labs and adjust drug dose/frequency. - Subjective The patient is a 54 year old F admitted on 01/05/20 00:10 with PNX. Patient with recent admission was at her residence receiving Invanz. Presents last night with PNX, started on Zosyn then Azithromycin. Today one of her blood cultures resulted with Gram positive cocci. Dr. Stewart started Vancomycin dosed by pharmacy. - Objective Height: 4 ft 9 in Weight: 70.035 kg Vital Signs (Past 12hrs): Vital Signs Temp Pulse Resp BP Pulse Ox 01/06/20 00:00 36.9 C 66 18 146/81 H 96 01/05/20 23:25 59 L 20 91 01/05/20 20:37 90 01/05/20 19:45 37 C 59 L 18 125/72 89 L 01/05/20 19:03 64 20 95 Lab Results (24hrs): Laboratory Tests (24 Hours) 01/05/20 01/05/20 06:23 06:23 WBC 10.39 Neut # (Auto) 8.01 H Creatinine 0.87 Est Cr Clr Drug Dosing 59.0 - Risk Factors for Resistance * Resident in a assisted or extended-care facility * Hospitalization for 48 hours or more within the past 90 days * History of infection with a multidrug-resistant organism: hx of ESBL * Antimicrobial use within the last 90 days: Invanz - Assessment & Plan Assessment 54 year old F with PNX and Bacteremia Plan Vancomycin IV * Estimated PK Parameters: Vd 0.7 L/kg, Beau 0.053 hr-1, t1/2 13 hr * Loading dose: 1750 mg (~25 mg/kg) * Maintenance dose: 1000 mg IV (~14 mg/kg) every 12 hours (Per AUC nomogram) * Goal trough level : 15-20 mcg/mL * Trough level ordered prior to 0200 dose on 01/07 Pharmacy will continue to follow and will adjust dose/frequency as necessary. Thank you.
[2020-01-06] MEDS: PIPERACILLIN/TAZOBACTAM 3.375 GM in DEXTROSE 5% 100 ML IV SCH ×3 (06:19→21:07)
[2020-01-06] MEDS: LEVOTHYROXINE SODIUM 125 MCG TABLET PO SCH (06:19)
[2020-01-06] MEDS: HEPARIN 100 UNIT/ML 5ML FLUSH FLUSH PRN (06:27)
[2020-01-06 06:40] LABS: Basophils # (auto) 0.03 K/uL (0-0.2); Basophils % (auto) 0.2 %; Eosinophils # (auto) 0.05 K/uL (0-0.5); Eosinophils % (auto) 0.3 %; Hematocrit (blood only) 32.2 % (37-47); Hemoglobin 10.1 g/dL (12.0-16.0); Immature Granulocytes # (auto) 0.07 K/uL (0.00-0.02); Immature Granulocytes % (auto) 0.4 %; Lymphocytes # (auto) 1.07 K/uL (1.2-3.4); Lymphocytes % (auto) 6.4 %; Mean Corpuscular Hemoglobin 32.5 pg (25-34); Mean Corpuscular Hgb Conc 31.4 g/dL (32-36); Mean Corpuscular Volume 103.5 fL (80-100); Monocytes # (auto) 1.09 K/uL (0.11-0.59); Monocytes % (auto) 6.6 %; Neutrophils # (auto) 14.29 K/uL (1.4-6.5); Neutrophils % (auto) 86.1 %; Platelet Count 272 K/uL (130-400); RDW Standard Deviation 56.9 fL (36.4-46.3); Red Blood Count 3.11 M/uL (4.2-5.4)
[2020-01-06 07:13] LABS: BUN Creatinine Ratio 26.3 (10-20); Calcium 8.6 mg/dl (8.5-10.1); Creatinine Clr Calc Pharmacy 54.6 ml/min; Est GFR (African American) 79.2; Est GFR (Non-African American) 68.3; Potassium 3.6 mmol/L (3.5-5.1)
[2020-01-06] MEDS: ALBUTEROL 0.083% NEBU SOLN 3 ML VIAL NEB SCH ×2 (07:16→19:18)
[2020-01-06] MEDS: ACETYLCYSTEINE 20% INHAL SOLN 4ML ***DISPENSED BY RESP. INH SCH ×2 (07:16→19:18)
[2020-01-06] MEDS: SODIUM CHLOR 7% 4 ML NEB NEB SCH ×2 (07:16→19:18)
[2020-01-06] MEDS: ASPIRIN 81 MG ECTAB PO SCH (08:31)
[2020-01-06] MEDS: CITALOPRAM 40 MG TAB PO SCH (08:31)
[2020-01-06] MEDS: FLUTICASONE/VILANTEROL 100/25MCG 14 PUFFS/INHALER INH SCH (08:31)
[2020-01-06] MEDS: DONEPEZIL HCL 5 MG TAB PO SCH (08:31)
[2020-01-06] MEDS: INSULIN ASPART 100 UNITS/ML 3 ML PEN SC SCH ×4 (08:32→21:44)
[2020-01-06] MEDS: INSULIN GLARGINE SOLOSTAR 100 UNITS/ML 3 ML PEN SC SCH (08:36)
[2020-01-06] MEDS ORDERED: VANCOMYCIN HCL 1,000 MG in SODIUM CHLORIDE 0.9% 500 ML IV SCH (09:00)
[2020-01-06] MEDS: VANCOMYCIN HCL 1,000 MG in SODIUM CHLORIDE 0.9% 250 ML IV SCH (14:31)
[2020-01-06] MEDS ORDERED: MICONAZOLE NITRATE POWDER 43 GM EXT PRN (14:44)
--- NOTE | 2020-01-06 17:19 | Hospitalist Progress Note ---
Date of Service January 06, 2020 Assessment & Plan (1) Multifocal pneumonia: With findings of infiltrates on CT of the chest bilateral mid to lower lung zones and significant increase in sputum production as per radius corner machine operator. Patient afebrile, HD stable. She does have a slightly increased leukocytosis when compared to prior but had been on prednisone prior to admission. Has a history of ESBL E. coli in the sputum. We will add on hypertonic saline, continue Mucomyst nebs and albuterol along with that Discontinued ertapenem which was started prior to admission and placed back on Zosyn, continue azithromycin and vancomycin Blood cultures with 1/2 gram-positive cocci in clusters most likely contaminant- can discontinue vancomycin if this comes back negative. Of note, does have a port in place MRSA swab was negative Covid-19 --of note she had an exposure to a radius corner machine operator that was a low risk exposure last Saturday -Follow cultures -Continue supplemental O2 at baseline levels - 4L NC and Trach collar Have discontinued prednisone as she has no wheezing and this is significantly contributing to hyperglycemia -Added on chest PT twice daily-patient does have a vibration vest at home -Changed out tracheostomy today We will collect sputum culture If not improving, consider consultation with pulmonary (2) Acute metabolic encephalopathy: Secondary to pneumonia Continue treatment as above (3) Elevated blood pressure reading: Intermittently elevated, with lower extremity swelling as per radius corner machine operator Check BNP and echocardiogram Give Lasix as needed She does have history of aortic repair with a right-sided aortic arch (4) Edema: As above (5) Diabetes type 1, controlled: Patient with brittle Type I DM -with hyperglycemia here. Seems better controlled today I discontinue insulin pump and pharmacy is managing with basal bolus insulin -Lantus 19u now and daily Discontinued prednisone (6) Hyperglycemia: As above -Lantus with ISS -Glycemic management (7) Chronic pulmonary aspiration: Chronic issue. No acute episode observed prior to arrival -Aspiration precautions -Trach care q shift and PRN -Continue Albuterol and Acetylcysteine inhaled (8) Down syndrome: Noted (9) Depression: Chronic. Stable -Continue Citalopram (10) Chronic obstructive pulmonary disease: Chronic. Stable -Continue Fluticasone/Vilanterol -Albuterol PRN -Supplemental O2 (11) Dementia: Chronic. Stable -Continue Aricept Follows with neurology Is also due to have inpatient EEG on January 25 for suspected possible seizure activity at home None noted here (12) Hypothyroidism: Chronic. TSH low today at 0.125, FTF normal at 1.3 -Continue Synthroid 125mcg po daily -Continue outpatient monitoring (13) Tracheostomy in place: Changing out trach on Wednesdays Trach care as per respiratory therapy (14) Hypoxia: Chronic respiratory failure with hypoxia With tracheostomy in place Continue trach collar (15) DVT prophylaxis: Add SQ Lovenox Code - DNR/DNI Dispo -continued stay on medical floor telemetry Admission and Anticipated Discharge Date Admission Date: January 05, 2020 Subjective Mother at the bedside and radius corner machine operator reports she is still not quite back at her baseline. Mom reports she thinks patient is having hallucinations at times seeing things up window. Still producing copious thick green-yellow sputum out of her trach especially after receiving hypertonic saline nebulizer last evening. Her trach needs to be changed out today and her radius corner machine operator was given the go ahead to do it as she performs at at home every week on Wednesdays. Caretakers who is her lead MENTAL HEALTH PROGRAM MANAGER also concerned that the patient's legs are swollen and that because her blood pressure was high, she had concerns for CHF. She still says that her feet are twice a swollen as they normally are. Telemetry with normal sinus rhythm with rates in the 50s to 60s Patient seems happy to me and is eating somewhat. Has not had any diarrhea. Moved her bowels yesterday. Is making urine. Review of Systems Review of Systems: Unobtainable due to cognitive status Physical Exam Constitutional: WD/WN, vitals as above (Dysmorphic facial features and body habitus) Eyes: + anicteric sclerae Neck: trachea midline, no thyromegaly + abnormal visual inspection (Metal tracheostomy in place with copious thick yellow-brown sputum coming out of it with cough) Respiratory: normal respiratory effort and + cough Auscultation: + rhonchi (Occasional on the left but much improved from previous, breath sounds much clear today); no wheezes Cardiovascular: Rate/Rhythm: regular rate and regular rhythm Heart Sounds: + murmur Extremities: + edema (Trace nonpitting edema of the feet and ankles); no calf tenderness Chest (Breasts): Chest: normal inspection of chest Gastrointestinal (Abdomen): normal bowel sounds, soft, nontender, no hepatosplenomegaly Musculoskeletal: Extremities: extremities normal to inspection; no cyanosis and no clubbing Skin: no rashes, warm and dry Neurologic: moves all extremities and awake; no focal motor deficits Psychiatric: Orientation: alert and cooperative Eye Contact: good eye contact Affect: euthymic affect Lymphatic: no lymphedema Results & Data Results & Data ([facility]) Vital Signs (Past 12 Hours) Vital Signs Temp Pulse Pulse Resp BP Pulse Ox 01/06/20 15:44 75 01/06/20 15:28 37.1 C 73 20 130/76 94 01/06/20 07:57 37.1 C 62 18 148/79 H 93 01/06/20 07:17 60 20 90 01/06/20 07:00 55 L 01/06/20 05:48 53 L Laboratory Results Labs reviewed PG Care Time/CCT Total # of Minutes Spent Total Time Spent with Patient: Total time spent is greater than 50% in coordination of care (as documented) at patient's floor/unit and/or counseling patient: Coding Level of Care Code 73821 Subseq Hosp Care Lvl 3 Diagnoses Multifocal pneumonia J18.9 Acute metabolic encephalopathy G93.41 Elevated blood pressure reading R03.0 Edema R60.9 Diabetes type 1, controlled E10.9 Diabetes mellitus complication status: without complication Hyperglycemia R73.9 Chronic pulmonary aspiration T17.908S Encounter type: sequela Down syndrome Q90.9 Depression F32.9 Depression Type: unspecified Chronic obstructive pulmonary disease J44.9 COPD type: unspecified COPD Dementia F03.90 Dementia behavioral disturbance: without behavioral disturbance Dementia type: unspecified type Hypothyroidism E03.9 Hypothyroidism type: unspecified Tracheostomy in place Z93.0 Hypoxia R09.02 DVT prophylaxis Z29.9 (1) Dementia Dementia behavioral disturbance: without behavioral disturbance Dementia type: unspecified type Qualified Code(s): F03.90 - Unspecified dementia without behavioral disturbance (2) Depression Depression Type: unspecified Qualified Code(s): F32.9 - Major depressive disorder, single episode, unspecified (3) Hypothyroidism Hypothyroidism type: unspecified Qualified Code(s): E03.9 - Hypothyroidism, unspecified (4) Diabetes type 1, controlled Diabetes mellitus complication status: without complication Qualified Code(s): E10.9 - Type 1 diabetes mellitus without complications (5) Chronic obstructive pulmonary disease COPD type: unspecified COPD Qualified Code(s): J44.9 - Chronic obstructive pulmonary disease, unspecified (6) Chronic pulmonary aspiration Encounter type: sequela Qualified Code(s): T17.908S - Unspecified foreign body in respiratory tract, part unspecified causing other injury, sequela
[2020-01-06] MEDS: AZITHROMYCIN 250 MG in DEXTROSE 5% 250 ML IV SCH (17:35)
[2020-01-06] MEDS: ATORVASTATIN 10 MG TAB PO SCH (21:06)
[2020-01-06] MEDS: FEXOFENADINE HCL 180 MG TAB PO SCH (21:06)
[2020-01-06] MEDS: MONTELUKAST SODIUM 10 MG TABLET PO SCH (21:07)
[2020-01-07] MEDS: VANCOMYCIN HCL 1,000 MG in SODIUM CHLORIDE 0.9% 250 ML IV SCH (01:02)
[2020-01-07] MEDS: PIPERACILLIN/TAZOBACTAM 3.375 GM in DEXTROSE 5% 100 ML IV SCH ×3 (05:57→22:44)
[2020-01-07] MEDS: LEVOTHYROXINE SODIUM 125 MCG TABLET PO SCH (05:57)
[2020-01-07] MEDS: SODIUM CHLOR 7% 4 ML NEB NEB SCH ×2 (07:18→19:26)
[2020-01-07] MEDS: ALBUTEROL 0.083% NEBU SOLN 3 ML VIAL NEB SCH ×2 (07:18→19:15)
[2020-01-07] MEDS: ACETYLCYSTEINE 20% INHAL SOLN 4ML ***DISPENSED BY RESP. INH SCH ×2 (07:19→19:09)
--- NOTE | 2020-01-07 08:38 | XCELERA ---
[id number]
[2020-01-07] MEDS: CITALOPRAM 40 MG TAB PO SCH (08:57)
[2020-01-07] MEDS: FLUTICASONE/VILANTEROL 100/25MCG 14 PUFFS/INHALER INH SCH (08:57)
[2020-01-07] MEDS: DONEPEZIL HCL 5 MG TAB PO SCH (08:58)
[2020-01-07] MEDS: INSULIN ASPART 100 UNITS/ML 3 ML PEN SC SCH ×4 (09:00→21:21)
[2020-01-07] MEDS: INSULIN GLARGINE SOLOSTAR 100 UNITS/ML 3 ML PEN SC SCH (09:02)
[2020-01-07] MEDS: ACETAMINOPHEN 325 MG TAB PO PRN (09:14)
[2020-01-07] MEDS ORDERED: FUROSEMIDE 20 MG in SYRINGE 0 ML IV ONE (09:30)
[2020-01-07] MEDS: ENOXAPARIN INJ 40 MG/0.4 ML SYR SQ SCH (10:59)
[2020-01-07] MEDS: AZITHROMYCIN 250 MG in DEXTROSE 5% 250 ML IV SCH (17:22)
--- NOTE | 2020-01-07 18:20 | Hospitalist Progress Note ---
Date of Service January 07, 2020 Assessment & Plan (1) Multifocal pneumonia: With findings of infiltrates on CT of the chest bilateral mid to lower lung zones and significant increase in sputum production as per wine specialist. Patient afebrile, HD stable. She does have a slightly increased leukocytosis when compared to prior but had been on prednisone prior to admission. Has a history of ESBL E. coli in the sputum. Have since added on hypertonic saline which is really helping the sputum, as per family; continue Mucomyst nebs and albuterol along with that Discontinued ertapenem which was started prior to admission and placed back on Zosyn -Continue azithromycin for atypical coverage -Discontinue vancomycin as Blood cultures with 1/2 coagulase-negative Staphylococcus which is a contaminant MRSA swab was negative Covid-19 is negative-of note she had an exposure to a wine specialist that was a low risk exposure last Saturday -Follow cultures-no growth to date Sputum culture still not collected -Continue supplemental O2 at baseline levels - 4L NC and Trach collar Have discontinued prednisone as she has no wheezing and this is significantly contributing to hyperglycemia -Continue chest PT twice daily-patient does have a vibration vest at home that could be brought in -Changed out tracheostomy on 01/05 Seems to be improving (2) Acute metabolic encephalopathy: Patient with mental status changes over at least the last month as per review of neurology notes with staring spells, confusion, memory loss, urinary incontinence. Seen by neurology a few weeks ago and started on Aricept Also has a history of more recently pulling out her trach and becoming hypoxic at times which also could be contributing although she has not done that here in the hospital She has had some hallucinations in the hospital and confusion and is generally not acting "like herself" as per family This could also be side effect of IV ertapenem Question if is also side effect of Aricept Family does not think that she would be able to lie still for a brain MRI We will consult neurology for further opinion about possible side effect of Aricept versus if she is having seizure activity versus progressive dementia with hallucinations -Continue to treat for pneumonia as well and keep blood sugars from dropping too low. Continue oxygen to keep her from becoming hypoxic. (3) Elevated blood pressure reading: Intermittently elevated, with lower extremity swelling as per wine specialist Blood pressures are better controlled but were elevated again today proBNP was normal and echocardiogram with preserved EF She does have history of aortic repair with a right-sided aortic arch I gave her 1 dose of IV Lasix this morning and her edema is much improved No further Lasix at this time - will watch blood pressures and start low-dose hydrochlorothiazide 12.5 mg in the morning (4) Edema: As above, now resolved with 1 dose of IV Lasix Does not have CHF (5) Diabetes type 1, controlled: Patient with brittle Type I DM -with hyperglycemia here. Seems better controlled today Home insulin pump is on hold and pharmacy is managing with basal bolus insulin Discontinued prednisone (6) Hyperglycemia: As above, now mostly improved -Lantus with ISS -Glycemic management (7) Chronic pulmonary aspiration: Chronic issue. No acute episode observed prior to arrival but I did witness her aspirate her soup during dinner today -Aspiration precautions -Trach care q shift and PRN -Continue Albuterol and Acetylcysteine inhaled (8) Down syndrome: Noted (9) Depression: Chronic. Stable -Continue Citalopram (10) Chronic obstructive pulmonary disease: Chronic. Stable -Continue Fluticasone/Vilanterol -Albuterol PRN -Supplemental O2 (11) Dementia: Chronic. Stable -Continue Aricept although question if some of her more recent mental status changes are secondary to side effect of this? Follows with neurology-consult for tomorrow Is also due to have inpatient EEG on January 25 for suspected possible seizure activity at home None noted here, but see above for metabolic encephalopathy (12) Hypothyroidism: Chronic. TSH low here at 0.125, FTF normal at 1.3 -Continue Synthroid 125mcg po daily -Continue outpatient monitoring (13) Tracheostomy in place: Changed out trach on Wednesdays Trach care as per respiratory therapy (14) Hypoxia: Acute on chronic respiratory failure with hypoxia With tracheostomy in place Continue trach collar (15) DVT prophylaxis: SQ Lovenox Code - DNR/DNI Dispo -continued stay on medical floor telemetry Admission and Anticipated Discharge Date Admission Date: January 05, 2020 Subjective Mom and sister at the bedside and report Valorie is still not quite at her baseline mental status, however as we were talking, she did nut picker her spoon start to feed herself which the mom reports is the first time she is done that since she has been in the hospital. She is not eating as much as usual. Mom reports that the patient was seen a girl out side the window yesterday and is hallucinating. Review of neurology notes with the family reports that there was concern for seizures, hallucinations, episodes of urinary incontinence and staring spells with confusion associated. Review of Systems Review of Systems: Unobtainable due to cognitive status Physical Exam Constitutional: WD/WN, vitals as above (Dysmorphic facial features and body habitus) Eyes: + anicteric sclerae Neck: trachea midline, no thyromegaly + abnormal visual inspection (Metal tracheostomy in place ) Respiratory: normal respiratory effort and + cough Auscultation: + rhonchi (Occasional on the left but much improved from previous, breath sounds much clear today); no wheezes Cardiovascular: Rate/Rhythm: regular rate and regular rhythm Heart Sounds: + murmur Extremities: + edema (Trace nonpitting edema of the feet and ankles); no calf tenderness Chest (Breasts): Chest: normal inspection of chest Gastrointestinal (Abdomen): normal bowel sounds, soft, nontender, no hepatosplenomegaly Musculoskeletal: Extremities: extremities normal to inspection; no cyanosis and no clubbing Skin: no rashes, warm and dry Neurologic: moves all extremities and awake; no focal motor deficits Psychiatric: Orientation: alert and cooperative Eye Contact: good eye contact Affect: euthymic affect Lymphatic: no lymphedema Results & Data Results & Data ([facility]) Vital Signs (Past 12 Hours) Vital Signs Temp Pulse Pulse Resp BP Pulse Ox 01/07/20 16:59 67 01/07/20 16:41 37.2 C 65 20 130/81 90 01/07/20 11:27 36.9 C 70 20 100/61 94 01/07/20 11:23 65 01/07/20 07:27 37.2 C 66 20 175/89 H 91 01/07/20 07:26 69 20 94 Laboratory Results 01/07/20 01/07/20 01/07/20 Range/Units 20:02 16:39 11:52 POC Glucose 288 H 126 H 191 H (70-99) mg/dl NT-Pro-B Natriuret Pep (0-900) pg/ml 01/07/20 01/07/20 01/07/20 Range/Units 07:40 07:39 05:38 POC Glucose 347 H* 314 H* (70-99) mg/dl NT-Pro-B Natriuret Pep 201 (0-900) pg/ml PG Care Time/CCT Total # of Minutes Spent Total Time Spent with Patient: Total time spent is greater than 50% in coordination of care (as documented) at patient's floor/unit and/or counseling patient: Coding Level of Care Code 23253 Subseq Hosp Care Lvl 3 Diagnoses Multifocal pneumonia J18.9 Acute metabolic encephalopathy G93.41 Elevated blood pressure reading R03.0 Edema R60.9 Diabetes type 1, controlled E10.9 Diabetes mellitus complication status: without complication Hyperglycemia R73.9 Chronic pulmonary aspiration T1S Encounter type: sequela Down syndrome Q90.9 Depression F32.9 Depression Type: unspecified Chronic obstructive pulmonary disease J44.9 COPD type: unspecified COPD Dementia F03.90 Dementia behavioral disturbance: without behavioral disturbance Dementia type: unspecified type Hypothyroidism E03.9 Hypothyroidism type: unspecified Tracheostomy in place Z93.0 Hypoxia R09.02 DVT prophylaxis Z29.9 (1) Dementia Dementia behavioral disturbance: without behavioral disturbance Dementia type: unspecified type Qualified Code(s): F03.90 - Unspecified dementia without behavioral disturbance (2) Depression Depression Type: unspecified Qualified Code(s): F32.9 - Major depressive disorder, single episode, unspecified (3) Hypothyroidism Hypothyroidism type: unspecified Qualified Code(s): E03.9 - Hypothyroidism, unspecified (4) Diabetes type 1, controlled Diabetes mellitus complication status: without complication Qualified Code(s): E10.9 - Type 1 diabetes mellitus without complications (5) Chronic obstructive pulmonary disease COPD type: unspecified COPD Qualified Code(s): J44.9 - Chronic obstructive pulmonary disease, unspecified (6) Chronic pulmonary aspiration Encounter type: sequela Qualified Code(s): - Unspecified foreign body in respiratory tract, part unspecified causing other injury, sequela
[2020-01-07] MEDS: ATORVASTATIN 10 MG TAB PO SCH (21:21)
[2020-01-07] MEDS: MONTELUKAST SODIUM 10 MG TABLET PO SCH (21:21)
[2020-01-07] MEDS: FEXOFENADINE HCL 180 MG TAB PO SCH (21:21)
[2020-01-08] MEDS ORDERED: VANCOMYCIN TROUGH ONE (01:30)
[2020-01-08] MEDS: HEPARIN 100 UNIT/ML 5ML FLUSH FLUSH PRN (05:20)
[2020-01-08 05:47] LABS: Basophils # (auto) 0.02 K/uL (0-0.2); Basophils % (auto) 0.2 %; Eosinophils # (auto) 0.19 K/uL (0-0.5); Eosinophils % (auto) 1.9 %; Immature Granulocytes # (auto) 0.06 K/uL (0.00-0.02); Immature Granulocytes % (auto) 0.6 %; Lymphocytes # (auto) 0.89 K/uL (1.2-3.4); Mean Corpuscular Hemoglobin 33.1 pg (25-34); Mean Corpuscular Hgb Conc 32.3 g/dL (32-36); Mean Corpuscular Volume 102.6 fL (80-100); Mean Platelet Volume 10.8 fL (7.4-10.4); Monocytes # (auto) 0.72 K/uL (0.11-0.59); Monocytes % (auto) 7.3 %; Platelet Count 243 K/uL (130-400); RDW Coefficient of Variation 14.9 % (11.5-14.5); RDW Standard Deviation 56.1 fL (36.4-46.3); Red Blood Count 3.02 M/uL (4.2-5.4); White Blood Count 9.88 K/uL (4.8-10.8)
[2020-01-08] MEDS: PIPERACILLIN/TAZOBACTAM 3.375 GM in DEXTROSE 5% 100 ML IV SCH ×2 (06:00→15:10)
[2020-01-08] MEDS: LEVOTHYROXINE SODIUM 125 MCG TABLET PO SCH (06:03)
[2020-01-08 06:18] LABS: Albumin Level 1.9 gm/dl (3.4-5.0); BUN Creatinine Ratio 20.5 (10-20); Calcium 7.9 mg/dl (8.5-10.1); Creatinine Clr Calc Pharmacy 52.3 ml/min; Est GFR (African American) 76.2; Est GFR (Non-African American) 65.8; Potassium 3.6 mmol/L (3.5-5.1)
[2020-01-08 06:20] LABS: Albumin Globulin Ratio 0.5 (0.9-2); Bilirubin,Total 0.6 mg/dl (0.2-1); Globulin 3.6 gm/dl (2.5-4.0); Total Protein 5.5 gm/dl (6.4-8.2)
[2020-01-08] MEDS: ALBUTEROL 0.083% NEBU SOLN 3 ML VIAL NEB SCH ×2 (07:17→19:51)
[2020-01-08] MEDS: ACETYLCYSTEINE 20% INHAL SOLN 4ML ***DISPENSED BY RESP. INH SCH ×2 (07:18→19:51)
[2020-01-08] MEDS: SODIUM CHLOR 7% 4 ML NEB NEB SCH ×2 (07:18→19:51)
[2020-01-08] MEDS: hydroCHLOROthiazide 25 MG TAB PO SCH (10:19)
[2020-01-08] MEDS: ASPIRIN 81 MG ECTAB PO SCH (10:20)
[2020-01-08] MEDS: DONEPEZIL HCL 5 MG TAB PO SCH (10:20)
[2020-01-08] MEDS: CITALOPRAM 40 MG TAB PO SCH (10:20)
[2020-01-08] MEDS: INSULIN GLARGINE SOLOSTAR 100 UNITS/ML 3 ML PEN SC SCH (10:21)
[2020-01-08] MEDS: INSULIN ASPART 100 UNITS/ML 3 ML PEN SC SCH ×4 (10:22→22:20)
[2020-01-08] MEDS: FLUTICASONE/VILANTEROL 100/25MCG 14 PUFFS/INHALER INH SCH (10:23)
[2020-01-08] MEDS: ENOXAPARIN INJ 40 MG/0.4 ML SYR SQ SCH (10:24)
--- NOTE | 2020-01-08 11:54 | Neurology Consultation ---
Date of Consultation January 08, 2020 Assessment & Plan (1) Dementia: (2) Down syndrome: (3) Seizure disorder: (4) Depression: Patient has a history of Down syndrome. After considering her history and her examination I suspect the patient has an early dementia. Approximately 1 in 3 people in their 50s with Down syndrome will developed dementia ( by age 60 it is over 2/3). This can manifest in a different number of ways including memory, behavior, concentration, hallucinations, and other. In addition, with dementia can come partial or generalized seizures. Her history suggests that she might be having brief seizures occasionally. She has not had a seizure since in the hospital. this could be due to an underlying dementia but also could be equally due to hypoglycemic episodes from over correction of blood sugar. She was on an insulin pump and this has been stopped in the hospital. She was put on donepezil, 5 milligrams daily last month. she is having decreased appetite. This may be a donepezil side effect as does episode can give GI issues. I am not certain if the medication will help her memory anyway. Patient has a history of depression which is fairly stable the patient has been on ertapenem antibiotic which can give ACCOUNT OFFICER side effects including hallucinations and other issues. She is off this medication now. Recommendations: 1.Keep off ertapenem 2. Discontinue donepezil. 3. Monitor glucose to avoid hypoglycemia and possible hypoglycemic seizures. 4. agree with electronic monitoring unit in January in [place] of this year. 5. consider MRI of the brain with/without contrast To evaluate white matter and atrophy. if not, a repeat CT scan of the head might provide some information Overall, I spent a total of 110 minutes with this case including review of records, review of CT films, direct evaluation the patient at bedside, and di scussing the case with the RN at bedside, the patient's mother at bedside, and Dr. Benson including differential diagnosis and treatment options. History of Present Illness Reason for Consultation: the patient is a 54 year old who I was asked to see at the request of Dr. Benson for neurologic consultation regarding altered mental status and other issues including seizure-like activity. Requesting Physician: Dr. Benson Attending Physician: Monserrat Benson MD History of Present Illness patient has a history of Down syndrome, Jeri's thyroiditis, chronic aspiration with respiratory failure and previous resection of an aortic aneurysm via thoracotomy,status post tracheostomy, ESBL E coli, diabetes on insulin pump, obstructive sleep apnea, and history of MRSA in the past. She is on chronic O2. CT scan of the head March 05 showed some mild generalized atrophy. The patient saw Dr. Steele December 10 of this year for at least a 1 month history of not understanding as well as he used to. She would have episodes of blankly staring and has progressive forgetfulness and comprehension. She has been having mood swings any increased irritability and can have altered sleep patterns. She has had episodes of urinary incontinence. Over the last 4 years she has had 2 or 3 episodes of seizure-like activity in the setting of hypoglycemia.These would consist of staring with confusion and urinary incontinence. On December 22 she was admitted with multifocal pneumonia having been discharged on December 24. On December 28 she was started on ertapenem 1 gram IV each day for 14 days. She was admitted January 03 with congestion, shortness of breath, and lower extremity edema. She was still on ertapenem. CBC shows some anemia, and glucos e was 124 this morning. Alk-phos is elevated at 129 total protein and albumin are low. She has had no seizure-like activity in the hospital. Allergies Allergy/AdvReac Type Severity Reaction Status Date / Time cefaclor Allergy Intermediate HIVES Verified 01/04/20 08:52 Cephalosporins Allergy Intermediate rash per Verified 01/04/20 08:52 mother sertraline AdvReac Mild INTOLERANCE Verified 01/04/20 08:52 Home Medications Home Medications Medication Instructions Recorded Confirmed Type promethazine 12.5 mg tablet 12.5 mg PO Q8 PRN #30 tab 12/23/18 01/04/20 Rx blood-glucose transmitter #1 ea 02/26/19 12/29/19 History infusion set for insulin pump ea 02/26/19 12/29/19 History insulin syringe,safetyneedle 1 mL #500 ea 02/26/19 12/29/19 History 29 gauge x 1/2" albuterol sulfate 90 mcg/actuation 2 puffs INH QID PRN #18 gm 03/25/19 01/04/20 Rx aerosol inhaler fluconazole 150 mg tablet 150 mg PO DAILY PRN #7 tab 03/25/19 01/04/20 Rx calcium carbonate 500 mg calcium 500 mg PO TID #270 tab 04/03/19 01/04/20 Rx (1,250 mg) tablet Novolog U-100 Insulin aspart 100 70 units SUBCUT .COMPLEX 90 Days 06/09/19 01/04/20 Rx unit/mL subcutaneous solution #70 ml NS atorvastatin 10 mg tablet 10 mg PO HS #90 tab 07/02/19 01/04/20 Rx citalopram 40 mg tablet 40 mg PO QAM #30 tab 07/20/19 01/04/20 Rx fexofenadine 180 mg tablet 180 mg PO HS #30 tab 07/20/19 01/04/20 Rx montelukast 10 mg tablet 10 mg PO PM #30 tab 07/20/19 01/04/20 Rx multivitamin,nq-qtrh-igoboqgf 27 1 tab PO DAILY #30 tab 07/20/19 01/04/20 Rx mg-0.4 mg tablet levothyroxine 125 mcg tablet 125 mcg PO DAILY #90 tab 08/21/19 01/04/20 Rx amoxicillin 500 mg-potassium 1 tab PO BID #60 tab 10/27/19 01/04/20 Rx clavulanate 125 mg tablet fluticasone furoate 100 1 inh INHALATION DAILY #1 inhaler 10/27/19 01/04/20 Rx mcg-vilanterol 25 mcg/dose inhalation powder acetylcysteine 200 mg/mL (20 %) 4 ml INHALATION BID #240 ml 11/19/19 01/04/20 Rx solution furosemide 20 mg tablet 20 mg PO DAILY PRN #30 tab 11/24/19 01/04/20 Rx Basaglar KwikPen U-100 Insulin See Rx Instructions SQ DAILY 12/23/19 01/04/20 History acetaminophen [Tylenol] 650 mg PO Q4H PRN MDD 4000MG 12/23/19 01/04/20 History ertapenem 1 gram solution for 1 g IM DAILY 12/29/19 01/04/20 History injection prednisone 20 mg tablet 20 mg PO DAILY #20 tab 12/29/19 01/04/20 Rx [employer] Phos Flur 15 ml MUCOUS MEMBRANE HS 01/04/20 01/04/20 History albuterol sulfate 2.5 mg CONTINUOUS NEBULIZATION BID 01/04/20 01/04/20 History albuterol sulfate 2.5 mg INHALATION Q4H PRN 01/04/20 01/04/20 History aspirin 81 mg PO Q2D 01/04/20 01/04/20 History cholecalciferol (vitamin D3) 100 mcg PO DAILY 01/04/20 01/04/20 History clotrimazole 1 applic TOPICAL TID PRN 01/04/20 01/04/20 History clotrimazole-betamethasone 1 appln TOP DAILY PRN 01/04/20 01/04/20 History donepezil 5 mg PO DAILY 01/04/20 01/04/20 History insulin NPH isoph U-100 human 0 unit SUBCUT .DAILY/UD 01/04/20 01/04/20 History [Novolin N Flexpen] Patient History Medical History Diabetes type 1, controlled History of allergic rhinitis History of athlete's foot History of bacterial pneumonia History of candidiasis of mouth History of chronic bronchitis History of community acquired pneumonia History of constipation History of diarrhea History of dysuria History of edema History of hyperkalemia History of hypotension History of nausea History of sunburn History of tinea corporis History of uncontrolled diabetes Pneumonia Surgical History History of bronchoscopy History of thoracotomy Hx of hand surgery S/P resection of aortic aneurysm Family History Other Diabetes Hypertension Denies family history of Colorectal cancer Social History Smoking Status: Never smoker Second Hand Exposure: No; Hx Alcohol Use: No Hx Substance Use: No Preferred Language: Dominican Communication Ability: Impaired Guest Service Supervisor Required: No Beliefs That Will Affect Care: None marital status: Single Current Living Situation: Personal Care Facility Current Living Situation Comment: half-way current occupational status: disabled How many Children do You have: 0 Feels Safe at Home: Yes Seatbelt Use: always Assistive Devices: Oxygen - Continuous Review of Systems Review of Systems: Due to the patient's mental status an adequate review of systems could not be obtained. She was not in pain and did not have headache. She felt sleepy and had a poor appetite. Exam (Neuro) Physical Exam: The patient is left-handed. The patient is awake, alert, and attentive. Speech is A little difficult because of the tracheostomy but seemed without obvious aphasia or dysarthria.. She can name objects, repeat phrases, but has little spontaneous speech. She is very pleasant and cooperative, smiling and following commands very easily. Her mood is normal and her affect seems appropriate. She knew her name where she lived and the fact that she was in the hospital. She did not know the day the date the month or the year. She could not repeat test phrases very well and could not remember 2/3 objects a few minutes after giving her this. Pupils are 3 mm bilaterally and reactive to light. Extraocular eye muscles are intact without nystagmus. Visual acuity and visual dunham seem normal grossly to confrontation. There are no deficits to sensation in the face in all 3 distributions of the fifth cranial nerve bilaterally. Corneal reflexes are positive bilaterally. Facial strength and symmetry was normal bilaterally. Hearing seems normal to whisper and finger rub bilaterally. Palate moves well without asymmetry. There is normal sternocleidomastoid and trapezius (shoulder shrug) strength bilaterally. Tongue is midline with good strength bilaterally. Neck has a full range of motion without discomfort. Cervical, thoracic, and lumbar spine are nontender to palpation. Gait is narrow based and cautious. She is slow but can't give it on her own. With outstretched arms there is no drift. There are no resting, postural, or action tremors. There is no ataxia with finger to nose testing. There is Reasonable facility in the hands. No other abnormal involuntary movements are noted. Motor strength is 5/5 diffusely in the arms bilaterally including deltoids, biceps, triceps, brachioradialis, wrist flexors and extensors, chemical dependency professional, and intrinsic hand muscles. Motor strength is 5/5 diffusely in the legs bilaterally including hip flexors, quadriceps, hamstrings, gastrocnemius, tibialis anterior, tibialis posterior, and Peroneii muscles. Toe extensors are normal and there is good bulk in the extensor digitorum brevis muscles bilaterally. The limbs have good tone without rigidity or spasticity. There is no atrophy noted in the muscles. Muscle bulk is normal, there is no tenderness to palpation, no myotonia to percussion, and no fasciculations seen. Sensory examination is intact to touch and pin throughout all 4 limbs diffusely. Reflexes are 1/4 in the biceps, triceps, brachioradialis, quadriceps, and Achilles tendons bilaterally. There is no clonus bilaterally. Toes are downgoing with plantar stimulation bilaterally. Peripheral pulses are present and of normal quality distally in all 4 limbs. There is no peripheral edema noted in the limbs. Results & Data ([facility]) Vital Signs (Past 12 Hours) Vital Signs Temp Pulse Pulse Resp BP Pulse Ox 01/08/20 08:07 37.4 C 69 20 121/63 94 01/08/20 07:37 64 01/08/20 07:18 65 20 91 01/08/20 03:08 36.9 C 62 20 130/80 94 01/08/20 00:00 64 PG Care Time/CCT Total # of Minutes Spent Total Time Spent with Patient: Total time spent is greater than 50% in coordination of care (as documented) at patient's floor/unit and/or counseling patient: Coding Level of Care Code 47286 Initial Inpt Care Lvl 3 Diagnoses Dementia F03.90 Dementia behavioral disturbance: without behavioral disturbance Dementia type: unspecified type Down syndrome Q90.9 Seizure disorder G40.909 Depression F32.9 Depression Type: unspecified Time Spent (min) 110 Comment add [id number] to the [id number] (1) Dementia Dementia behavioral disturbance: without behavioral disturbance Dementia type: unspecified type Qualified Code(s): F03.90 - Unspecified dementia without behavioral disturbance (2) Depression Depression Type: unspecified Qualified Code(s): F32.9 - Major depressive disorder, single episode, unspecified
--- NOTE | 2020-01-08 16:46 | Hospitalist Progress Note ---
Date of Service January 08, 2020 Assessment & Plan (1) Multifocal pneumonia: With findings of infiltrates on CT of the chest bilateral mid to lower lung zones and significant increase in sputum production as per insole and outsole preparer. Patient afebrile, HD stable. She had a slightly increased leukocytosis when compared to prior but had been on prednisone prior to admission. Has a history of ESBL E. coli in the sputum. Sputum culture light normal mary-preliminary Have since added on hypertonic saline which is really helping the sputum, as per family; continue Mucomyst nebs and albuterol along with that Discontinued ertapenem which was started prior to admission and placed back on Zosyn -Continue azithromycin for atypical coverage x5-day course -Discontinued vancomycin as MRSA swab negative Blood cultures with 1/2 coagulase-negative Staphylococcus which is a contaminant Covid-19 is negative-of note she had an exposure to a insole and outsole preparer that was a low risk exposure last Saturday -Follow cultures-no growth to date -Continue supplemental O2 at baseline levels - 4L NC and Trach collar -Have discontinued prednisone as she has no wheezing and this was contributing to hyperglycemia -Continue chest PT twice daily-patient does have a vibration vest at home that could be brought in -Changed out tracheostomy on 01/05 Is much improved (2) Acute metabolic encephalopathy: Patient with mental status changes over at least the last month as per review of neurology notes with staring spells, confusion, memory loss, urinary incontinence. Seen by neurology a few weeks ago and started on Aricept Also has a history of more recently pulling out her trach and becoming hypoxic at times which also could be contributing although she has not done that here in the hospital She has had some hallucinations in the hospital and confusion and is generally not acting "like herself" as per family The more acute portion of this in the last week could have been a side effect of IV ertapenem, but the chronic portion is more likely related to her progressing dementia Appreciate neurology consultation Family does not think that she would be able to lie still for a brain MRI CT head negative for acute -Keep appointment for epilepsy monitoring unit in a few weeks in [place] -Continue to treat for pneumonia as well and keep blood sugars from dropping too low. Continue oxygen to keep her from becoming hypoxic. (3) Elevated blood pressure reading: Intermittently elevated, with lower extremity swelling as per insole and outsole preparer Blood pressures are better controlled now with starting HCTZ and after giving a dose of Lasix proBNP was normal and echocardiogram with preserved EF She does have history of aortic repair with a right-sided aortic arch I gave her 1 dose of IV Lasix and her edema is much improved -Started low-dose hydrochlorothiazide 12.5 mg (4) Edema: As above, now resolved with 1 dose of IV Lasix Does not have CHF (5) Diabetes type 1, controlled: Patient with brittle Type I DM -with hyperglycemia here. Seems better controlled today Home insulin pump is on hold and pharmacy is managing with basal bolus insulin Discontinued prednisone (6) Chronic pulmonary aspiration: Chronic issue. No acute episode observed prior to arrival but I did witness her aspirate her soup here -Aspiration precautions -Trach care q shift and PRN -Continue Albuterol and Acetylcysteine inhaled (7) Down syndrome: Noted (8) Depression: Chronic. Stable -Continue Citalopram (9) Chronic obstructive pulmonary disease: Chronic. Stable -Continue Fluticasone/Vilanterol -Albuterol PRN -Supplemental O2 (10) Dementia: Chronic and progressing Appreciate neurology input Given that she has had low appetite-we will discontinue Aricept as may be a side effect Is also due to have inpatient EEG on January 25 for suspected possible seizure activity at home None noted here, but see above for metabolic encephalopathy (11) Hypothyroidism: Chronic. TSH low here at 0.125, FTF normal at 1.3 -Continue Synthroid 125mcg po daily -Continue outpatient monitoring (12) Tracheostomy in place: Changed out trach on Wednesdays Trach care as per respiratory therapy (13) Hypoxia: Acute on chronic respiratory failure with hypoxia With tracheostomy in place Continue trach collar (14) DVT prophylaxis: SQ Lovenox Code - DNR/DNI Dispo -continued stay on medical floor telemetry Admission and Anticipated Discharge Date Admission Date: January 05, 2020 Subjective Patient slept most of the day as per nursing but when I saw her later in the afternoon, she was awake and playful and tickled me. Her mom reports her cough is much less today. We discussed the neurological evaluation. I discussed the case with neurology. Review of Systems Review of Systems: Unobtainable due to cognitive status Physical Exam Constitutional: WD/WN, vitals as above (Dysmorphic facial features and body habitus) Eyes: + anicteric sclerae Neck: trachea midline, no thyromegaly + abnormal visual inspection (Metal tracheostomy in place ) Respiratory: normal respiratory effort and + cough Auscultation: + rhonchi (Occasional on the left but much improved from previous, breath sounds much clear today); no wheezes Cardiovascular: Rate/Rhythm: regular rate and regular rhythm Heart Sounds: + murmur Extremities: no edema Chest (Breasts): Chest: normal inspection of chest Gastrointestinal (Abdomen): normal bowel sounds, soft, nontender, no hepatosplenomegaly Musculoskeletal: Extremities: extremities normal to inspection; no cyanosis and no clubbing Skin: no rashes, warm and dry Neurologic: moves all extremities and awake; no focal motor deficits Psychiatric: Orientation: alert and cooperative Eye Contact: good eye contact Affect: euthymic affect Lymphatic: no lymphedema Results & Data Results & Data ([facility]) Vital Signs (Past 12 Hours) Vital Signs Temp Pulse Pulse Resp BP Pulse Ox 01/08/20 16:12 36.9 C 55 L 20 122/76 95 01/08/20 16:00 50 L 01/08/20 11:59 36.7 C 57 L 18 124/82 94 01/08/20 08:07 37.4 C 69 20 121/63 94 01/08/20 07:37 64 01/08/20 07:18 65 20 91 Laboratory Results 01/08/20 01/08/20 01/08/20 Range/Units 16:39 11:47 07:42 WBC (4.8-10.8) K/uL RBC (4.2-5.4) M/uL Hgb (12.0-16.0) g/dL Hct (37-47) % MCV (80-100) fL MCH (25-34) pg MCHC (32-36) g/dL RDW Std Deviation (36.4-46.3) fL RDW Coeff of Jackie (11.5-14.5) % Plt Count (130-400) K/uL MPV (7.4-10.4) fL Immature Gran % (Auto) % Neut % (Auto) % Lymph % (Auto) % Caroline % (Auto) % Eos % (Auto) % Baso % (Auto) % Neut # (Auto) (1.4-6.5) K/uL Lymph # (Auto) (1.2-3.4) K/uL Caroline # (Auto) (0.11-0.59) K/uL Eos # (Auto) (0-0.5) K/uL Baso # (Auto) (0-0.2) K/uL Immature Gran # (Auto) (0.00-0.02) K/uL Sodium (136-145) mmol/L Potassium (3.5-5.1) mmol/L Chloride (98-107) mmol/L Carbon Dioxide (21-32) mmol/L Anion Gap (3-11) BUN (7-18) mg/dl Creatinine (0.6-1.2) mg/dl Est Cr Clr Drug Dosing ml/min Est GFR ( Amer) Est GFR (Non-Af Amer) BUN/Creatinine Ratio (10-20) Glucose (70-99) mg/dl POC Glucose 130 H 219 H 162 H (70-99) mg/dl Calcium (8.5-10.1) mg/dl Total Bilirubin (0.2-1) mg/dl AST (15-37) U/L ALT (12-78) U/L Alkaline Phosphatase (45-117) U/L Total Protein (6.4-8.2) gm/dl Albumin (3.4-5.0) gm/dl Globulin (2.5-4.0) gm/dl Albumin/Globulin Ratio (0.9-2) Procalcitonin (0-0.5) ng/ml 01/08/20 01/08/20 01/08/20 Range/Units 05:20 05:20 05:20 WBC 9.88 (4.8-10.8) K/uL RBC 3.02 L (4.2-5.4) M/uL Hgb 10.0 L (12.0-16.0) g/dL Hct 31.0 L (37-47) % MCV 102.6 H (80-100) fL MCH 33.1 (25-34) pg MCHC 32.3 (32-36) g/dL RDW Std Deviation 56.1 H (36.4-46.3) fL RDW Coeff of Jackie 14.9 H (11.5-14.5) % Plt Count 243 (130-400) K/uL MPV 10.8 H (7.4-10.4) fL Immature Gran % (Auto) 0.6 % Neut % (Auto) 81.0 % Lymph % (Auto) 9.0 % Caroline % (Auto) 7.3 % Eos % (Auto) 1.9 % Baso % (Auto) 0.2 % Neut # (Auto) 8.00 H (1.4-6.5) K/uL Lymph # (Auto) 0.89 L (1.2-3.4) K/uL Caroline # (Auto) 0.72 H (0.11-0.59) K/uL Eos # (Auto) 0.19 (0-0.5) K/uL Baso # (Auto) 0.02 (0-0.2) K/uL Immature Gran # (Auto) 0.06 H (0.00-0.02) K/uL Sodium 143 (136-145) mmol/L Potassium 3.6 (3.5-5.1) mmol/L Chloride 105 (98-107) mmol/L Carbon Dioxide 35 H (21-32) mmol/L Anion Gap 3.0 (3-11) BUN 20 H (7-18) mg/dl Creatinine 0.97 (0.6-1.2) mg/dl Est Cr Clr Drug Dosing 52.3 ml/min Est GFR ( Amer) 76.2 Est GFR (Non-Af Amer) 65.8 BUN/Creatinine Ratio 20.5 H (10-20) Glucose 124 H (70-99) mg/dl POC Glucose (70-99) mg/dl Calcium 7.9 L (8.5-10.1) mg/dl Total Bilirubin 0.6 (0.2-1) mg/dl AST 13 L (15-37) U/L ALT 29 (12-78) U/L Alkaline Phosphatase 129 H (45-117) U/L Total Protein 5.5 L (6.4-8.2) gm/dl Albumin 1.9 L (3.4-5.0) gm/dl Globulin 3.6 (2.5-4.0) gm/dl Albumin/Globulin Ratio 0.5 L (0.9-2) Procalcitonin 0.21 (0-0.5) ng/ml PG Care Time/CCT Total # of Minutes Spent Total Time Spent with Patient: Total time spent is greater than 50% in coordination of care (as documented) at patient's floor/unit and/or counseling patient: Coding Level of Care Code 22643 Subseq Hosp Care Lvl 3 Diagnoses Multifocal pneumonia J18.9 Acute metabolic encephalopathy G93.41 Elevated blood pressure reading R03.0 Edema R60.9 Diabetes type 1, controlled E10.9 Diabetes mellitus complication status: without complication Chronic pulmonary aspiration Encounter type: sequela Down syndrome Q90.9 Depression F32.9 Depression Type: unspecified Chronic obstructive pulmonary disease J44.9 COPD type: unspecified COPD Dementia F03.90 Dementia behavioral disturbance: without behavioral disturbance Dementia type: unspecified type Hypothyroidism E03.9 Hypothyroidism type: unspecified Tracheostomy in place Z93.0 Hypoxia R09.02 DVT prophylaxis Z29.9 (1) Dementia Dementia behavioral disturbance: without behavioral disturbance Dementia type: unspecified type Qualified Code(s): F03.90 - Unspecified dementia without behavioral disturbance (2) Depression Depression Type: unspecified Qualified Code(s): F32.9 - Major depressive disorder, single episode, unspecified (3) Hypothyroidism Hypothyroidism type: unspecified Qualified Code(s): E03.9 - Hypothyroidism, unspecified (4) Diabetes type 1, controlled Diabetes mellitus complication status: without complication Qualified Code(s): E10.9 - Type 1 diabetes mellitus without complications (5) Chronic obstructive pulmonary disease COPD type: unspecified COPD Qualified Code(s): J44.9 - Chronic obstructive pulmonary disease, unspecified (6) Chronic pulmonary aspiration Encounter type: sequela Qualified Code(s): - Unspecified foreign body in respiratory tract, part unspecified causing other injury, sequela
--- NOTE | 2020-01-08 17:37 | CT Scan Report ---
HEAD CT NONCONTRAST CT DOSE: 291.32 mGycm HISTORY: dementia,Down's syndrome,worsening mentation TECHNIQUE: Multiaxial CT images of the head were performed without the use of intravenous contrast. A utomated exposure control was utilized for this study. A dose lowering technique was utilized adheri ng to the principles of ALARA. Comparison: Head CT 02/26/2019. Findings: The paranasal sinuses and mastoid air cells are clear. The calvarium and skull base are int act. The ventricles and sulci are within normal limits. There is no mass, hematoma, midline shift, or acute infarct. Impression: No acute intracranial abnormality. ACT 112: Negative or not required by law. Electronically signed by: Alvaro Alvarado M.D. 01/08/2020 5:35 PM
[2020-01-08] MEDS: FEXOFENADINE HCL 180 MG TAB PO SCH (22:17)
[2020-01-08] MEDS: ATORVASTATIN 10 MG TAB PO SCH (22:18)
[2020-01-08] MEDS: MONTELUKAST SODIUM 10 MG TABLET PO SCH (22:19)
[2020-01-08] MEDS: AZITHROMYCIN 250 MG in DEXTROSE 5% 250 ML IV SCH (22:21)
[2020-01-09] MEDS: PIPERACILLIN/TAZOBACTAM 3.375 GM in DEXTROSE 5% 100 ML IV SCH ×4 (00:57→22:05)
[2020-01-09] MEDS: LEVOTHYROXINE SODIUM 125 MCG TABLET PO SCH (05:55)
[2020-01-09] MEDS: ALBUTEROL 0.083% NEBU SOLN 3 ML VIAL NEB SCH ×2 (07:22→20:12)
[2020-01-09] MEDS: SODIUM CHLOR 7% 4 ML NEB NEB SCH ×2 (07:22→20:16)
[2020-01-09] MEDS: ACETYLCYSTEINE 20% INHAL SOLN 4ML ***DISPENSED BY RESP. INH SCH ×2 (07:22→20:16)
[2020-01-09] MEDS: hydroCHLOROthiazide 25 MG TAB PO SCH (08:49)
[2020-01-09] MEDS: ENOXAPARIN INJ 40 MG/0.4 ML SYR SQ SCH (08:49)
[2020-01-09] MEDS: FLUTICASONE/VILANTEROL 100/25MCG 14 PUFFS/INHALER INH SCH (08:49)
[2020-01-09] MEDS: CITALOPRAM 40 MG TAB PO SCH (08:49)
[2020-01-09] MEDS: INSULIN ASPART 100 UNITS/ML 3 ML PEN SC SCH ×4 (08:54→20:48)
[2020-01-09] MEDS: INSULIN GLARGINE SOLOSTAR 100 UNITS/ML 3 ML PEN SC SCH (08:54)
[2020-01-09] MEDS: HEPARIN 100 UNIT/ML 5ML FLUSH FLUSH PRN (10:05)
--- NOTE | 2020-01-09 16:14 | Hospitalist Progress Note ---
Date of Service January 09, 2020 Assessment & Plan (1) Multifocal pneumonia: With findings of infiltrates on CT of the chest bilateral mid to lower lung zones and significant increase in sputum production as per director of direct marketing. Patient afebrile, HD stable. She had a slightly increased leukocytosis when compared to prior but had been on prednisone prior to admission. Has a history of ESBL E. coli in the sputum. Sputum culture light normal mary-preliminary Have since added on hypertonic saline which is really helping the sputum, as per family; continue Mucomyst nebs and albuterol along with that Discontinued ertapenem which was started prior to admission and placed back on Zosyn-last dose of Zosyn will be on 01/09 and then transition to Augmentin for 5 more days for total of 10 days -Continue azithromycin for atypical coverage x5-day course -Discontinued vancomycin as MRSA swab negative Blood cultures with 1/2 coagulase-negative Staphylococcus which is a contaminant Covid-19 is negative-of note she had an exposure to a director of direct marketing that was a low risk exposure last Saturday -Follow cultures-no growth to date -Continue supplemental O2 at baseline levels - 4L NC and Trach collar -Have discontinued prednisone as she has no wheezing and this was contributing to hyperglycemia -Continue chest PT twice daily-patient does have a vibration vest at home that could be brought in -Changed out tracheostomy on 01/05 Significantly improved today (2) Acute metabolic encephalopathy: Patient with mental status changes over at least the last month as per review of neurology notes with staring spells, confusion, memory loss, urinary incontinence. Seen by neurology a few weeks ago and started on Aricept Also has a history of more recently pulling out her trach and becoming hypoxic at times which also could be contributing although she has not done that here in the hospital She has had some hallucinations in the hospital and confusion and is generally not acting "like herself" as per family The more acute portion of this in the last week could have been a side effect of IV ertapenem, but the chronic portion is more likely related to her progressing dementia Appreciate neurology consultation Family does not think that she would be able to lie still for a brain MRI CT head negative for acute Overall significantly improved and back to baseline mental status on 01/08 -Keep appointment for epilepsy monitoring unit in a few weeks in [place] -Continue to treat for pneumonia as well and keep blood sugars from dropping too low. Continue oxygen to keep her from becoming hypoxic. 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 Seems better controlled today Home insulin pump is on hold and pharmacy is managing with basal bolus insulin- advised pharmacy that she will be discharged tomorrow and restart insulin pump before that Discontinued prednisone which has helped blood sugars come down (6) Chronic pulmonary aspiration: Chronic issue. No acute episode observed prior to arrival but I did witness her aspirate her soup here -Aspiration precautions -Trach care q shift and PRN -Continue Albuterol and Acetylcysteine inhaled (7) Down syndrome: Noted (8) Depression: Chronic. Stable -Continue Citalopram (9) Chronic obstructive pulmonary disease: Chronic. Stable -Continue Fluticasone/Vilanterol -Albuterol PRN -Supplemental O2 (10) Dementia: Chronic and progressing Appreciate neurology input Given that she has had low appetite-we will discontinue Aricept as may be a side effect Is also due to have inpatient EEG on January 25 for suspected possible seizure activity at home None noted here, but see above for metabolic encephalopathy (11) Hypothyroidism: Chronic. TSH low here at 0.125, FTF normal at 1.3 -Continue Synthroid 125mcg po daily -Continue outpatient monitoring (12) Tracheostomy in place: Changed out trach on Wednesdays Trach care as per respiratory therapy (13) Hypoxia: Acute on chronic respiratory failure with hypoxia-much improved With tracheostomy in place Continue trach collar (14) DVT prophylaxis: SQ Lovenox Code - DNR/DNI Dispo -continued stay on medical floor telemetry but expect discharge to home tomorrow Admission and Anticipated Discharge Date Admission Date: January 05, 2020 Subjective Patient doing very well today. Mom is pleased. She reports that the patient is completely back to her baseline mental status and is eating well. Laughing and conversing like normal. Review of Systems Review of Systems: All systems reviewed & are unremarkable except as noted in HPI & below Physical Exam Constitutional: WD/WN, vitals as above (Dysmorphic facial features and body habitus) Eyes: + anicteric sclerae Neck: trachea midline, no thyromegaly + abnormal visual inspection (Metal tracheostomy in place ) Respiratory: normal respiratory effort, lungs clear to auscultation Cardiovascular: Rate/Rhythm: regular rate and regular rhythm Heart Sounds: + murmur Extremities: no edema Chest (Breasts): Chest: normal inspection of chest Gastrointestinal (Abdomen): normal bowel sounds, soft, nontender, no hepatosplenomegaly Musculoskeletal: Extremities: extremities normal to inspection; no cyanosis and no clubbing Skin: no rashes, warm and dry Neurologic: moves all extremities and awake; no focal motor deficits Psychiatric: Orientation: alert and cooperative Eye Contact: good eye contact Affect: euthymic affect Lymphatic: no lymphedema Results & Data Results & Data ([facility]) Vital Signs (Past 12 Hours) Vital Signs Temp Pulse Pulse Resp BP BP Pulse Ox 01/09/20 15:47 36.3 C L 65 18 116/71 97 01/09/20 15:00 62 01/09/20 11:56 36.3 C L 55 L 16 133/87 94 01/09/20 08:18 36.4 C L 51 L 20 136/62 98 01/09/20 07:32 59 L 01/09/20 07:23 50 L 20 97 Laboratory Results 01/09/20 01/09/20 01/08/20 Range/Units 11:49 08:05 20:35 POC Glucose 187 H 201 H 267 H (70-99) mg/dl 01/08/20 Range/Units 16:39 POC Glucose 130 H (70-99) mg/dl PG Care Time/CCT Total # of Minutes Spent Total Time Spent with Patient: Total time spent is greater than 50% in coordination of care (as documented) at patient's floor/unit and/or counseling patient: Coding Level of Care Code 97360 Subseq Hosp Care Lvl 2 Diagnoses Multifocal pneumonia J18.9 Acute metabolic encephalopathy G93.41 Elevated blood pressure reading R03.0 Edema R60.9 Diabetes type 1, controlled E10.9 Diabetes mellitus complication status: without complication Chronic pulmonary aspiration Encounter type: sequela Down syndrome Q90.9 Depression F32.9 Depression Type: unspecified Chronic obstructive pulmonary disease J44.9 COPD type: unspecified COPD Dementia F03.90 Dementia type: unspecified type Dementia behavioral disturbance: without behavioral disturbance Hypothyroidism E03.9 Hypothyroidism type: unspecified Tracheostomy in place Z93.0 Hypoxia R09.02 DVT prophylaxis Z29.9 (1) Diabetes type 1, controlled Diabetes mellitus complication status: without complication Qualified Code(s): E10.9 - Type 1 diabetes mellitus without complications (2) Chronic pulmonary aspiration Encounter type: sequela Qualified Code(s): T1 - Unspecified foreign body in respiratory tract, part unspecified causing other injury, sequela (3) Depression Depression Type: unspecified Qualified Code(s): F32.9 - Major depressive disorder, single episode, unspecified (4) Chronic obstructive pulmonary disease COPD type: unspecified COPD Qualified Code(s): J44.9 - Chronic obstructive pulmonary disease, unspecified (5) Dementia Dementia type: unspecified type Dementia behavioral disturbance: without behavioral disturbance Qualified Code(s): F03.90 - Unspecified dementia without behavioral disturbance (6) Hypothyroidism Hypothyroidism type: unspecified Qualified Code(s): E03.9 - Hypothyroidism, unspecified
[2020-01-09] MEDS: AZITHROMYCIN 250 MG in DEXTROSE 5% 250 ML IV SCH (19:37)
[2020-01-09] MEDS: FEXOFENADINE HCL 180 MG TAB PO SCH (20:47)
[2020-01-09] MEDS: MONTELUKAST SODIUM 10 MG TABLET PO SCH (20:47)
[2020-01-09] MEDS: ATORVASTATIN 10 MG TAB PO SCH (20:47)
[2020-01-10] MEDS ORDERED: AMOXICILLIN/CLAVULANATE 875 MG TAB PO SCH
[2020-01-10] MEDS ORDERED: hydroCHLOROthiazide 25 MG TAB PO SCH
[2020-01-10] MEDS: PIPERACILLIN/TAZOBACTAM 3.375 GM in DEXTROSE 5% 100 ML IV SCH ×2 (05:54→14:41)
[2020-01-10] MEDS: LEVOTHYROXINE SODIUM 125 MCG TABLET PO SCH (05:54)
[2020-01-10 06:10] LABS: Basophils # (auto) 0.02 K/uL (0-0.2); Basophils % (auto) 0.3 %; Eosinophils # (auto) 0.14 K/uL (0-0.5); Eosinophils % (auto) 2.4 %; Hematocrit (blood only) 30.7 % (37-47); Hemoglobin 9.7 g/dL (12.0-16.0); Immature Granulocytes % (auto) 0.8 %; Lymphocytes # (auto) 1.21 K/uL (1.2-3.4); Lymphocytes % (auto) 20.4 %; Mean Corpuscular Hemoglobin 32.6 pg (25-34); Mean Corpuscular Hgb Conc 31.6 g/dL (32-36); Mean Platelet Volume 10.6 fL (7.4-10.4); Monocytes # (auto) 0.54 K/uL (0.11-0.59); Monocytes % (auto) 9.1 %; Neutrophils # (auto) 3.96 K/uL (1.4-6.5); Platelet Count 209 K/uL (130-400); RDW Coefficient of Variation 14.5 % (11.5-14.5); RDW Standard Deviation 54.4 fL (36.4-46.3); Red Blood Count 2.98 M/uL (4.2-5.4); White Blood Count 5.92 K/uL (4.8-10.8)
[2020-01-10 06:11] LABS: Immature Granulocytes # (auto) 0.05 K/uL (0.00-0.02)
[2020-01-10 06:45] LABS: BUN Creatinine Ratio 16.3 (10-20); Calcium 8.1 mg/dl (8.5-10.1); Creatinine Clr Calc Pharmacy 52.8 ml/min; Est GFR (African American) 77.2; Est GFR (Non-African American) 66.6; Potassium 3.6 mmol/L (3.5-5.1)
[2020-01-10] MEDS: ACETYLCYSTEINE 20% INHAL SOLN 4ML ***DISPENSED BY RESP. INH SCH (07:14)
[2020-01-10] MEDS: ALBUTEROL 0.083% NEBU SOLN 3 ML VIAL NEB SCH (07:14)
[2020-01-10] MEDS: SODIUM CHLOR 7% 4 ML NEB NEB SCH (07:15)
[2020-01-10] MEDS: ASPIRIN 81 MG ECTAB PO SCH (08:48)
[2020-01-10] MEDS: FLUTICASONE/VILANTEROL 100/25MCG 14 PUFFS/INHALER INH SCH (08:48)
[2020-01-10] MEDS: CITALOPRAM 40 MG TAB PO SCH (08:48)
[2020-01-10] MEDS: hydroCHLOROthiazide 25 MG TAB PO SCH (08:48)
[2020-01-10] MEDS: ENOXAPARIN INJ 40 MG/0.4 ML SYR SQ SCH (08:48)
[2020-01-10] MEDS: INSULIN ASPART 100 UNITS/ML 3 ML PEN SC SCH ×2 (08:51→13:09)
[2020-01-10] MEDS: INSULIN GLARGINE SOLOSTAR 100 UNITS/ML 3 ML PEN SC SCH (08:53)
--- NOTE | 2020-01-10 10:41 | Pharmacy Report ---
Pharmacy Glycemic Short Note 2 - Date of Service January 10, 2020 - Glycemic Short BSG Results (Last 24 hours): 01/09/20 01/09/20 01/09/20 11:49 16:36 20:40 Glucose POC Glucose 187 H 123 H 241 H 01/10/20 01/10/20 05:44 07:25 Glucose 141 H POC Glucose 202 H OUTPATIENT ANTIDIABETIC REGIMEN: * NovoLog insulin pump * Total basal dose ~ 20 units/day * CHO ratio: 10/22/ with BF/lunch/dinner respectively * CF = 40 * Total daily dose 50 units ASSESSMENT: 01/09 * Patient required 52 units of insulin yesterday, of which 19 were basal insulin * Fasting BSG 202 mg/dL - provider wanting to transition back on insulin pump, however caregiver not able to come in this morning to bring in pump supplies. Talked with caregiver/nurse at [facility] and they do not feel comfortable with having patient on insulin pump while in the hospital since they are not able to be there 24 hrs. Spoke with provider and plan is to utilize bolus insulin for dinner and HS tonight (5 units) as coverage since likely discharging patient today * Plan to have patient take home novolog pen for dosing this evening. Communicated with RN to make sure patient leaves with pen. Recommended patient resume insulin pump tomorrow morning 10 AM around 8 am. Plan discussed with provider * Fasting elevated this AM, could consider dose increase tomorrow if patient still here PLAN FOR INPATIENT GLYCEMIC CONTROL: * Hold outpatient insulin pump * Basal insulin * Lantus 19 units SQ daily in AM * Bolus insulin * NovoLog per scale ACHS or Q6hrs while NPO * Goal Range: Low 120 mg/dL - High 150 mg/dL * Correction Factor: 20 mg/dL/unit * Nutritional / Prandial insulin per carb ratio of 1 unit per 7 grams CHO consumed * Steroid induced hyperglycemia * NPH 14 units (0.2 units/kg) to cover 20 mg of prednisone. PLAN FOR DISCHARGE: * Restart insulin pump tomorrow 10 AM around 8 am * Would utilize novolog pen to provide additional coverage at dinner and HS if being discharged this afternoon. Would recommend 5 units of novolog with dinner and at bedtime.
[2020-01-10] MEDS: HEPARIN 100 UNIT/ML 5ML FLUSH FLUSH PRN ×2 (10:59→14:42)
--- NOTE | 2020-01-10 13:02 | Discharge Summary ---
Date of Service January 10, 2020 Admission HPI Per Admitting Provider Valorie Early is a 54yo C female with history of Down syndrome, chronic tracheostomy, frequent aspiration with PNA, presenting from her [facility] with HTN and Hyperglycemia as well as LE edema. Patient was recently admitted to [facility] from 12/23/19 - 12/25/19 with hypoxic respiratory failure secondary to RLL PNA likely from aspiration. She was treated with Vancomycin and Zosyn while admitted and was discharged on Augmentin for an additional 8 days. After discharge the patient was started on Ertapenem 1gm IV daily x 14 days as well as a prednisone taper by her PCP. She returns today with complaint of LE edema t hat was noticed at appx 11:00AM on the day of admission. Her blood sugar was 148 this AM but steadily increased throughout the day - was over 400 prior to arrival. Also with increased blood pressure at home to 193/90. On arrival patient hypertensive in LUE to 215/95 with normal blood pressure in RUE. Per roof panel hanger, BP must be taken in RUE due to h/o aortic repair. Patient complaining only of lower abdominal discomfort. ER Course: Insulin, NSS Principal Diagnosis Hypertensive urgency, lower extremity edema, pneumonia, diabetes mellitus type 1 with hyperglycemia Discharge Exam Constitutional WD/WN, vitals as above (Dysmorphic facial features and body habitus) Eyes + anicteric sclerae ENMT Ears: no hearing impairment Nose: no external nose abnormality Mouth: no oral mucosal abnormality Neck trachea midline, no thyromegaly + abnormal visual inspection (Metal tracheostomy in place ) Respiratory normal respiratory effort, lungs clear to auscultation Auscultation: + rhonchi (Occasional on the left but much improved from previous, breath sounds much clear today); no wheezes Cardiovascular Rate/Rhythm: regular rate and regular rhythm Heart Sounds: + murmur Extremities: no edema Chest (Breasts) Chest: normal inspection of chest Gastrointestinal (Abdomen) normal bowel sounds, soft, nontender, no hepatosplenomegaly Musculoskeletal Extremities: extremities normal to inspection; no cyanosis and no clubbing Skin no rashes, warm and dry Neurologic moves all extremities and awake; no focal motor deficits Psychiatric Orientation: alert and cooperative Eye Contact: good eye contact Affect: euthymic affect Lymphatic no lymphedema Discharge Data Allergies Allergy/AdvReac Type Severity Reaction Status Date / Time cefaclor Allergy Intermediate HIVES Verified 01/04/20 08:52 Cephalosporins Allergy Intermediate rash per Verified 01/04/20 08:52 mother sertraline AdvReac Mild INTOLERANCE Verified 01/04/20 08:52 Consultations 01/04/20 22:41 ED Decision to Admit Stat 01/07/20 18:20 Consult Neurology Routine Ordered Studies 01/04/20 19:19 CT angio chest PE protocol Urgent 01/08/20 16:32 CT head/brain wo con Routine Chest x-ray x2 Hospital Course (1) Multifocal pneumonia: With findings of infiltrates on CT of the chest bilateral mid to lower lung zones and significant increase in sputum production as per roof panel hanger. Patient afebrile, HD stable. She had a slightly increased leukocytosis when compared to prior but had been on prednisone prior to admission. Has a history of ESBL E. coli in the sputum. Sputum culture light normal mary-preliminary Have since added on hypertonic saline which is really helping the sputum, as per family; continue Mucomyst nebs and albuterol nebulizers after discharge Discontinued ertapenem which was started prior to admission and placed back on Zosyn-last dose of Zosyn will be on 01/09 and then transition to Augmentin for 2 more days for total of 8 days -She completed azithromycin for atypical coverage x5-day course -Discontinued vancomycin as MRSA swab negative Blood cultures with 1/2 coagulase-negative Staphylococcus which is a contaminant Sputum culture light normal mary Covid-19 is negative-of note she had an exposure to a roof panel hanger that was a low risk exposure last Saturday-continue to monitor for signs and symptoms of Covid- 19 after discharge -Continue supplemental O2 at baseline levels - 4L NC and Trach collar -Have discontinued prednisone as she has no wheezing and this was contributing to hyperglycemia -Continue chest PT twice daily-patient does have a vibration vest at home -Changed out tracheostomy on 01/05 Significantly improved today stable for discharge to home Follow-up with pulmonology as an outpatient (2) Acute metabolic encephalopathy: Patient with mental status changes over at least the last month as per review of neurology notes with staring spells, confusion, memory loss, urinary incontinence. Seen by neurology a few weeks ago and started on Aricept Also has a history of more recently pulling out her trach and becoming hypoxic at times which also could be contributing although she has not done that here in the hospital She has had some hallucinations in the hospital and confusion and is generally not acting "like herself" as per family The more acute portion of this in the last week could have been a side effect of IV ertapenem, but the chronic portion is more likely related to her progressing dementia Appreciate neurology consultation Mental status much improved now and she is back to her baseline Family does not think that she would be able to lie still for a brain MRI CT head negative for acute -Keep appointment for epilepsy monitoring unit in a few weeks in [place] -Continue to treat for pneumonia as well and keep blood sugars from dropping too low. Continue oxygen to keep her from becoming hypoxic. 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 With some hyperglycemia on admission and then hypoglycemia on the day of discharge which resolved Home insulin pump is on hold and pharmacy is managing with basal bolus insulin She received a dose of Lantus 19 units on the day of discharge She will be sent home with NovoLog FlexPen to use 5 units with dinner and at bedtime tonight and then she will resume her home insulin pump in the morning (6) Chronic pulmonary aspiration: Chronic issue. No acute episode observed prior to arrival but I did witness her aspirate her soup here -Aspiration precautions -Trach care q shift and PRN -Continue Albuterol and Acetylcysteine inhaled (7) Down syndrome: Noted (8) Depression: Chronic. Stable -Continue Citalopram (9) Chronic obstructive pulmonary disease: Chronic. Stable -Continue Fluticasone/Vilanterol -Albuterol PRN -Supplemental O2 (10) Dementia: Chronic and progressing Appreciate neurology input Given that she has had low appetite-we will discontinue Aricept as may be a side effect Is also due to have inpatient EEG on January 25 for suspected possible seizure activity at home None noted here, but see above for metabolic encephalopathy (11) Hypothyroidism: Chronic. TSH low here at 0.125, FTF normal at 1.3 -Continue Synthroid 125mcg po daily -Continue outpatient monitoring (12) Tracheostomy in place: Changed out trach on Wednesdays Trach care as per respiratory therapy (13) Hypoxia: Acute on chronic respiratory failure with hypoxia-much improved With tracheostomy in place Continue nasal cannula as needed at home (14) DVT prophylaxis: SQ Lovenox Code - DNR/DNI Dispo -stable for discharge home Total Time Total Time Spent Total Time Spent (In Minutes): 40 minutes Total Time Includes: Examination of the Patient, Discharge Planning and Medication Reconciliation Discharge Plan Discharge Items Patient Disposition: Home - Home Health Services Reason For Visit: HYPERTENSION, HYPERGLYCEMIA Discharge Diagnosis: Hypertension, leg swelling, pneumonia, hyperglycemia Condition on Discharge: Good Activity: Resume your previous activity Non-emergency contact: Primary Care Provider and Spa Receptionist Call non-emergency contact if: you have any medication questions, your symptoms worsen and you have a fever Follow-up/Referrals: Angel Mandujano PA-C [Physician [facility]] - 01/20/20 1:15 pm () Vladimir Lucio MD [Primary Care Provider] - (Follow-up within 1 to 2 weeks) Diet: Carb Count or DM1 and Low Sodium (2gm) Addtl Attending Provider Instructions: Please finish out 2 more days of Augmentin 1 tablet twice daily for your pneumonia. You were started on a diuretic pill called HCTZ for your high blood pressure and leg swelling. This is to be taken once daily. Please continue all your other medications as usual and follow-up with your primary care physician and your pulmonology provider. Please start back on your insulin pump tomorrow morning. You will take NovoLog 5 units with dinner and 5 units at bedtime tonight. Your donepezil was discontinued as it can cause low appetite and may not give you much benefit in the long run anyway. Please keep your appointment date and time for your epilepsy monitoring unit testing. Follow-up with neurology for your dementia and possible seizures after that. Because of the confusion you had when you admitted, and was thought that perhaps this was caused by the IV antibiotic called ertapenem. You may want to avoid using this in the future unless absolutely necessary. Pending Studies at Discharge: No Stand-Alone Forms: My [facility] Medications and DC Order Prescriptions: New hydrochlorothiazide 25 mg Tablet 12.5 mg PO QAM Qty: 15 RF: 0 insulin aspart U-100 [Novolog Flexpen U-100 Insulin] 100 unit/mL (3 mL) Insulin Pen See Rx Instructions .ROUTE .COMPLEX Qty: 3 RF: 0 Continued promethazine 12.5 mg tablet 12.5 mg PO Q8 PRN (Reason: nausea and vomiting) Qty: 30 RF: 3 albuterol sulfate [Ventolin HFA] 90 mcg/actuation HFA aerosol inhaler 2 puffs INH QID PRN (Reason: shortness of breath or wheezing) Qty: 18 RF: 5 fluconazole 150 mg tablet 150 mg PO DAILY PRN (Reason: candidiasis) Qty: 7 RF: 1 calcium carbonate [Oyster Shell Calcium 500] 500 mg calcium (1,250 mg) tablet 500 mg PO TID Qty: 270 RF: 3 Novolog U-100 Insulin aspart 100 unit/mL solution 70 units subcut .COMPLEX 90 Days Qty: 70 RF: 3 atorvastatin 10 mg tablet 10 mg PO HS Qty: 90 RF: 3 Therems-M 27-0.4 mg tablet 1 tab PO DAILY Qty: 30 RF: 5 fexofenadine [Allergy Relief (fexofenadine)] 180 mg tablet 180 mg PO HS Qty: 30 RF: 5 montelukast 10 mg tablet 10 mg PO PM Qty: 30 RF: 5 citalopram 40 mg tablet 40 mg PO QAM Qty: 30 RF: 5 Breo Ellipta 100-25 mcg/dose blister with device 1 inh INHALATION DAILY Qty: 1 RF: 5 levothyroxine 125 mcg tablet 125 mcg PO DAILY Qty: 90 RF: 3 (DME) Easy Touch FlipLock Insulin 1 mL 29 gauge x 1/2" syringe See Rx Instructions .ROUTE .MEDSUPPLY Qty: 500 RF: 0 (DME) Quick-Set Paradigm infusion set See Dose Instructions .ROUTE .MEDSUPPLY RF: 0 (DME) Dexcom G5 Transmitter device See Rx Instructions .ROUTE .MEDSUPPLY Qty: 1 RF: 0 acetylcysteine 200 mg/mL (20 %) solution 4 ml INHALATION BID Qty: 240 RF: 5 aspirin 81 mg tablet,delayed release (DR/EC) 81 mg PO Q2D RF: 0 albuterol sulfate 2.5 mg /3 mL (0.083 %) solution for nebulization 2.5 mg continuous nebulization BID RF: 0 albuterol sulfate 2.5 mg /3 mL (0.083 %) Solution For Nebulization 2.5 mg INHALATION Q4H PRN (Reason: .CHEST DISCOMFORT) RF: 0 clotrimazole-betamethasone 1-0.05 % cream 1 appln TOP DAILY PRN (Reason: rash) RF: 0 clotrimazole 1 % Cream 1 applic TOPICAL TID PRN (Reason: .RASH AROUND TRACH) RF: 0 cholecalciferol (vitamin D3) 50 mcg (2,000 unit) Capsule 100 mcg PO DAILY RF: 0 [employer] Phos Flur 15 ml mucous membrane HS RF: 0 amoxicillin-pot clavulanate [Augmentin] 500-125 mg tablet 1 tab PO BID 2 Days Qty: 4 RF: 0 acetaminophen [Tylenol] 325 mg Tablet 650 mg PO Q4H MDD 4000MG PRN (Reason: Pain) RF: 0 Basaglar KwikPen U-100 Insulin 100 unit/mL (3 mL) insulin pen See Rx Instructions SQ DAILY RF: 0 Discontinued furosemide 20 mg tablet 20 mg PO DAILY PRN (Reason: weight gain) Qty: 30 RF: 3 prednisone 20 mg tablet 20 mg PO DAILY Qty: 20 RF: 0 ertapenem 1 gram recon soln 1 g IM DAILY RF: 0 Novolin N Flexpen 100 unit/mL (3 mL) Insulin Pen 0 unit SUBCUT .DAILY/UD RF: 0 donepezil 5 mg tablet 5 mg PO DAILY RF: 0 Discharge Orders: Discharge Order (Routine); Ordered 01/10/20 Ordered By: Monserrat Benson Admission Data Admit Date/Time: 01/05/20 00:10 Attending Provider: Monserrat Benson Admit Provider: Fidelina Choe Primary Care Provider: Vladimir Lucio Other Providers: Fidelina Choe ; Anson Retana Coding Level of Care Code D/C Day Management >30 mins Diagnoses Multifocal pneumonia J18.9 Acute metabolic encephalopathy G93.41 Elevated blood pressure reading R03.0 Edema R60.9 Diabetes type 1, controlled E10.9 Diabetes mellitus complication status: without complication Chronic pulmonary aspiration [id number] Encounter type: sequela Down syndrome Q90.9 Depression F32.9 Depression Type: unspecified Chronic obstructive pulmonary disease J44.9 COPD type: unspecified COPD Dementia F03.90 Dementia behavioral disturbance: without behavioral disturbance Dementia type: unspecified type Hypothyroidism E03.9 Hypothyroidism type: unspecified Tracheostomy in place Z93.0 Hypoxia R09.02 DVT prophylaxis Z29.9
== END 2020-01-10 17:12 | disposition home or self-care (01) | DRG 193 ==
LOC: ED 18:50 → 2N 01-05 00:10 → SUATTDRO 01-05 00:10 → 2N 01-05 01:58

== ENCOUNTER 2020-02-10 06:15 | Inpatient (IN) ==
[2020-02-10] MEDS ORDERED: ACETAMINOPHEN 1,000 MG/100 ML VIAL IV STA (06:26)
[2020-02-10] MEDS ORDERED: ALBUTEROL 0.083% NEBU SOLN 3 ML VIAL NEB STA (06:48)
--- NOTE | 2020-02-10 06:53 | XRay Report ---
XR chest 1V portable CLINICAL HISTORY: sob COMPARISON STUDY: Chest CT January 04, 2020. Chest radiograph January 05, 2020. FINDINGS: Tracheostomy tube and right subclavian Maamax-c-Abxp are in place. Multiple old bilateral r ib fractures are noted. There is no pneumothorax. Trace bilateral pleural effusions are noted. Cardio mediastinal silhouette is stable. Incidental note is made of a right-sided aortic arch. Interstitial thickening and bibasilar opacities are again noted. IMPRESSION: 1. No significant change in interstitial thickening and bibasilar opacities which may reflect an infe ctious process. 2. Trace bilateral pleural effusions. No pneumothorax. ACT 112: Negative or not required by law. Electronically signed by: Manny Gorman M.D. 02/10/2020 6:52 AM
[2020-02-10] MEDS ORDERED: DEXAMETHASONE SOD INJ 4 MG/ML VIAL IV STA (07:03)
[2020-02-10] MEDS ORDERED: VANCOMYCIN HCL 1,250 MG in SODIUM CHLORIDE 0.9% 500 ML IV ONE (07:04)
[2020-02-10] MEDS ORDERED: PIPERACILL/TAZOBAC CONSULT ACTIVE PRN ×2 (07:04→10:45)
[2020-02-10] MEDS ORDERED: levoFLOXacin/D5W 750 MG/150 ML BAG IV STA (07:04)
[2020-02-10] MEDS ORDERED: VANCOMYCIN CONSULT ACTIVE PRN (07:04)
[2020-02-10] MEDS ORDERED: PIPERACILLIN/TAZOBACTAM 4.5 GM/120 ML BAG IV ONE (07:04)
[2020-02-10 07:05] LABS: Hematocrit (blood only) 32.2 % (37-47); Hemoglobin 10.2 g/dL (12.0-16.0); Mean Corpuscular Hemoglobin 32.8 pg (25-34); Mean Corpuscular Hgb Conc 31.7 g/dL (32-36); Mean Corpuscular Volume 103.5 fL (80-100); Mean Platelet Volume 9.9 fL (7.4-10.4); Platelet Count 257 K/uL (130-400); RDW Coefficient of Variation 15.3 % (11.5-14.5); RDW Standard Deviation 57.6 fL (36.4-46.3); Red Blood Count 3.11 M/uL (4.2-5.4); White Blood Count 26.82 K/uL (4.8-10.8)
[2020-02-10] MEDS ORDERED: SODIUM CHLORIDE 0.9% 1000ML 1,000 ML IV ONE ×2 (07:08→07:24)
[2020-02-10 07:23] LABS: Blood Urea Nitrogen 28 mg/dl (7-18); Carbon Dioxide 28 mmol/L (21-32); Chloride 107 mmol/L (98-107); INR 1.1 (0.9-1.1); Partial Thromboplastin Ratio 1.1; Partial Thromboplastin Time 30.2 Seconds (21.0-31.0); Potassium 4.9 mmol/L (3.5-5.1); Prothrombin Time 11.3 Seconds (9.0-12.0); Sodium 141 mmol/L (136-145)
[2020-02-10 07:24] LABS: Alanine Aminotransferase 27 U/L (12-78); Albumin Level 2.7 gm/dl (3.4-5.0); Aspartate Aminotransferase 19 U/L (15-37); BUN Creatinine Ratio 17.5 (10-20); C Reactive Protein 1.96 mg/dl (0-0.29); Creatinine Clr Calc Pharmacy 33.3 ml/min; Est GFR (Non-African American) 35.4; Glucose 191 mg/dl (70-99); Magnesium 1.7 mg/dl (1.8-2.4)
[2020-02-10 07:28] LABS: Albumin Globulin Ratio 0.7 (0.9-2); Alkaline Phosphatase 100 U/L (45-117); Bilirubin,Total 0.3 mg/dl (0.2-1); Globulin 3.8 gm/dl (2.5-4.0); Total Protein 6.5 gm/dl (6.4-8.2); Troponin I < 0.015 ng/ml (0-0.045)
[2020-02-10 07:33] LABS: Creatine Kinase 32 U/L (26-192); Creatine Kinase MB < 1.0 ng/ml (0.5-3.6); Ferritin 104.4 ng/ml (8-388)
[2020-02-10 07:34] LABS: Basophils # (auto) 0.03 K/uL (0-0.2); Basophils % (auto) 0.1 %; Eosinophils # (auto) 0.06 K/uL (0-0.5); Eosinophils % (auto) 0.2 %; Immature Granulocytes # (auto) 0.12 K/uL (0.00-0.02); Immature Granulocytes % (auto) 0.4 %; Monocytes # (auto) 1.04 K/uL (0.11-0.59); Monocytes % (auto) 3.9 %; Neutrophils # (auto) 23.97 K/uL (1.4-6.5); Neutrophils % (auto) 89.4 %
[2020-02-10] MEDS ORDERED: MAGNESIUM SULFATE / D5W 1 GM/100 ML BAG IV ONE (07:50)
--- NOTE | 2020-02-10 07:52 | History & Physical Report ---
Date of Service February 10, 2020 Assessment & Plan (1) Acute and chronic respiratory failure with hypoxia: Patient with chronic hypoxic resp failure on home O2, 4 liters. Has metal trach and follows with HILARIO Chavez, [facility] [place] pulmonary. Today presenting with acute hypoxic/hypercarbic respiratory failure in setting of her chronic resp failure. Hypoxic this am at her longterm, and has hypercarbia on VBG. Acute component 2nd to aspiration pneumonia. See below. Cont O2 support, IV antibiotics, etc. (2) Sepsis: 2nd to pneumonia, likely aspiration. h/o same on numerous occurrences. s/p 30cc/kg of NS in ER with improved BP. Evidence of SOM/sepsis-associated ATN. Lactate, however, wnl. Cont IVF, IV antibiotics, and supportive care. Follow blood cultures. (3) SOM (acute kidney injury): Likely sepsis-associated ATN. IV fluids, repeat BMP am. (4) Aspiration pneumonia: History of multiple episodes of such in the past. Prior trach aspirates have grown ESBL e.coli - sensitive to pip/tazo.P Thus, continue zosyn. If MRSA swab remains negative then d/c IV vanco. Cont levaquin IV for atypical coverage and double coverage of other potential g reji negatives. Patient is well known to our speech department. She is a known aspirator. PEG tube has been deferred in the past because Valorie gets much abner from eating her favorite foods, etc. When she is more awake/alert can place her on nectar thick liquids and minced/moist diet. (5) Uncontrolled type 1 diabetes mellitus: Last HBA1C in 12/2019 was >7%. She uses insulin pump at her longterm. Our pharmacy glycemic team knows Valorie well. Will consult pharmacy for their assistance. We have utilized insulin infusions in the past, along with basal/bolus SC regimen and NPH. Defer selection to pharmacy. (6) Acute metabolic encephalopathy: 2nd to sepsis. Supportive care. (7) Hypothyroidism: All TSH levels in the last 2 years have showed suppressed levels. FT4 levels have been normal. Egke-gbg-kgcr consider reducing her dose of synthroid to 112mcg daily. (8) GERD (gastroesophageal reflux disease): Continue PPI. (9) Seizure disorder: Not on meds for such. Will need to clarify with longterm if she is on meds and if any seizures have occurred over the last few months. (10) Dementia: Noted (11) Chronic obstructive pulmonary disease: Continue mucomyst nebs BID for clearance of secretions. Continue albuterol BID. Need to check with longterm to see if she is on chronic prednisone. d/c summary from 12/2019 shows prednisone was discontinued. 01/2020 pulmonary visit does not mention the prednisone. Will give solumedrol 20mg IV daily for now until we get clarity on this. (12) Down syndrome: With resulting intellectual disability. Now with memory loss/dementia by report. Resides in local longterm. (13) DVT prophylaxis: Heparin 5000 BID long-term nurse brought her records and showed me the pt's POLST form. This indicates DNR. Left message for Valorie's mother, Mrs Muñoz, evening of 02/10/20. History of Present Illness Chief Complaint: hypoxia, altered mental status Primary Care Provider: Vladimir Lucio MD 54yo Female - well known to the hospitalist service - with Down's Syndrome, T1DM on insulin pump, chronic hypoxic respiratory failure on 4 L NC via tracheostomy, hypothyroidism, and chronic aspiration - presenting from her longterm with hypoxia down to the low 70s discovered this am about 5am. An albuterol neb was administered, she was suctioned with some mucous plugging obtained, and also given phenergan as she told staff she had nausea. She has been altered since that time with increased somnolence. A longterm RN was at bedside during the encounter and provided all history. By report Valorie had been in her usual state of health and also at neuropsychiatric baseline the last few days. There are 2 other residents that reside at the longterm. No COVID has been detected amongst staff members or residents over the last 2-3 weeks (there was a worker in early December with COVID who has tested negative since then). No other infections - especially respiratory - amongst the residents or staff members over the last week. She does continue to intermittently cough with eating/drinking. The patient is on an insulin pump and remains on such during the ER visit. BSG was in the 70s early this am at the longterm. Upon arrival Valorie was hypotensive and is receiving 30cc/kg of NS for sepsis. COVID PCR was negative. Lactate was negative. Received IV vancomycin, IV levaquin, and IV pip/tazo in the ER for suspected aspiration pneumonia. Allergies Allergy/AdvReac Type Severity Reaction Status Date / Time cefaclor Allergy Intermediate HIVES Verified 02/10/20 07:13 Cephalosporins Allergy Intermediate rash per Verified 02/10/20 07:13 mother sertraline AdvReac Mild INTOLERANCE Verified 02/10/20 07:13 Home Medications Medication Instructions Recorded Confirmed Type promethazine 12.5 mg tablet 12.5 mg PO Q8 PRN #30 tab 12/23/18 02/10/20 Rx blood-glucose transmitter #1 ea 02/26/19 01/20/20 History infusion set for insulin pump ea 02/26/19 01/20/20 History insulin syringe,safetyneedle 1 mL #500 ea 02/26/19 01/20/20 History 29 gauge x 1/2" fluconazole 150 mg tablet 150 mg PO DAILY PRN #7 tab 03/25/19 02/10/20 Rx calcium carbonate 500 mg calcium 500 mg PO TID #270 tab 04/03/19 02/10/20 Rx (1,250 mg) tablet Novolog U-100 Insulin aspart 100 70 units SUBCUT .COMPLEX 90 Days 06/09/19 02/10/20 Rx unit/mL subcutaneous solution #70 ml NS atorvastatin 10 mg tablet 10 mg PO HS #90 tab 07/02/19 02/10/20 Rx levothyroxine 125 mcg tablet 125 mcg PO DAILY #90 tab 08/21/19 02/10/20 Rx fluticasone furoate 100 1 inh INHALATION DAILY #1 inhaler 10/27/19 02/10/20 Rx mcg-vilanterol 25 mcg/dose inhalation powder acetylcysteine 200 mg/mL (20 %) 4 ml INHALATION BID #240 ml 11/19/19 02/10/20 Rx solution Basaglar KwikPen U-100 Insulin See Rx Instructions SQ DAILY 12/23/19 02/10/20 History acetaminophen [Tylenol] 650 mg PO Q4H PRN MDD 4000MG 12/23/19 02/10/20 History [employer] Phos Flur 15 ml MUCOUS MEMBRANE HS 01/04/20 02/10/20 History aspirin 81 mg PO Q2D 01/04/20 02/10/20 History cholecalciferol (vitamin D3) 100 mcg PO DAILY 01/04/20 02/10/20 History clotrimazole 1 applic TOPICAL TID PRN 01/04/20 02/10/20 History clotrimazole-betamethasone 1 appln TOP DAILY PRN 01/04/20 02/10/20 History prednisone 10 mg tablet 10 mg PO DAILY #30 tab 01/11/20 02/10/20 Rx sodium chloride 0.9 % 273 ml IV BID #64628 ml 01/11/20 02/10/20 Rx hydrochlorothiazide 25 mg tablet 12.5 mg PO QAM #30 tab 01/14/20 02/10/20 Rx albuterol sulfate 90 mcg/actuation 2 puff INH QID PRN #18 gm 01/20/20 02/10/20 Rx aerosol inhaler omeprazole 20 mg capsule,delayed 20 mg PO QAM 01/20/20 02/10/20 History release sulfamethoxazole 800 1 tab PO .COMPLEX 01/20/20 02/10/20 History mg-trimethoprim 160 mg tablet citalopram 40 mg tablet 40 mg PO QAM #30 tab 01/25/20 02/10/20 Rx fexofenadine 180 mg tablet 180 mg PO HS #30 tab 01/25/20 02/10/20 Rx montelukast 10 mg tablet 10 mg PO PM #30 tab 01/25/20 02/10/20 Rx albuterol sulfate 2.5 mg INHALATION BID 02/10/20 02/10/20 History albuterol sulfate 2.5 mg INHALATION Q4 PRN 02/10/20 02/10/20 History glucose 4 g PO DAILY PRN MDD until response 02/10/20 02/10/20 History multivitamin,[id number] 1 tab PO QAM 02/10/20 02/10/20 History [Therems-M] Past Med/Surg History Medical History (Updated 02/10/20 @ 19:23 by Marcell Sage) Chronic obstructive pulmonary disease Chronic pulmonary aspiration Chronic respiratory failure with hypoxia on Home O2 - 4 liters continuously Dementia Depression Down syndrome GERD (gastroesophageal reflux disease) Jeri's thyroiditis History of allergic rhinitis History of bacterial pneumonia History of candidiasis of mouth History of chronic bronchitis History of edema History of hyperkalemia Hypothyroidism CAMILLA (obstructive sleep apnea) Patent foramen ovale Seizure disorder Tracheostomy in place Uncontrolled type 1 diabetes mellitus Surgical History History of bronchoscopy History of thoracotomy Hx of hand surgery S/P resection of aortic aneurysm Family History Other Diabetes Hypertension Denies family history of Colorectal cancer Social History Smoking Status: Never smoker Second Hand Exposure: No; Do You Dip or Chew Tobacco: No; Hx Alcohol Use: No Hx Substance Use: No Preferred Language: Guamanian Communication Ability: Impaired Communication Ability Comment: 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 Beliefs That Will Affect Care: None marital status: Single Current Living Situation: Other Current Living Situation Comment: Residential Senior Living current occupational status: disabled How many Children do You have: 0 Other Information That Helps Us Care for You: No Feels Safe at Home: Yes Safety Concerns: Feels Safe At This Time Seatbelt Use: always Assistive Devices: Oxygen - Continuous Review of Systems Review of Systems: Unobtainable due to cognitive status Physical Exam Constitutional: + altered mental status and + frail appearing; no acute distress looks dehydrated Eyes: + anicteric sclerae and PERRL ENMT: Mouth: + dry oral mucous membranes Neck: trachea midline, no thyromegaly trach in place (metal) - no secretions noted Respiratory: no respiratory distress Auscultation: + diminished lung sounds (both bases ) and + crackles (right base; scant left base ); no wheezes Cardiovascular: Rate/Rhythm: regular rate and regular rhythm Heart Sounds: normal S1 and normal S2; no murmur Vessels: posterior tibial pulses present and dorsalis pedis pulses present; no JVD Extremities: no edema Gastrointestinal (Abdomen): normal bowel sounds, soft, nontender, no hepatosplenomegaly Musculoskeletal: Extremities: strength 5/5 throughout Skin: no rashes, warm and dry Neurologic: moves all extremities; no focal motor deficits Psychiatric: Orientation: + not alert and + not oriented x 3 Lymphatic: no cervical lymphadenopathy Results & Data Results & Data ([facility]) Vital Signs (Past 12 Hours) Vital Signs Temp Pulse Resp BP Pulse Ox 02/10/20 07:30 79 25 H 101/66 98 02/10/20 07:15 84 27 H 95/62 L 94 02/10/20 07:08 18 91 02/10/20 07:02 94 02/10/20 07:00 85 24 87/63 L 98 02/10/20 06:30 87 26 H 103/66 95 02/10/20 06:20 38.0 C H 91 H 24 108/53 L 85 L Laboratory Results Laboratory Results - last 24 hr 02/10/20 02/10/20 02/10/20 06:30 06:30 06:42 WBC 26.82 H RBC 3.11 L Hgb 10.2 L Hct 32.2 L MCV 103.5 H MCH 32.8 MCHC 31.7 L RDW Std Deviation 57.6 H RDW Coeff of Jackie 15.3 H Plt Count 257 MPV 9.9 Immature Gran % (Auto) 0.4 Neut % (Auto) 89.4 Lymph % (Auto) 6.0 [place] % (Auto) 3.9 Eos % (Auto) 0.2 Baso % (Auto) 0.1 Neut # (Auto) 23.97 H Lymph # (Auto) 1.60 [place] # (Auto) 1.04 H Eos # (Auto) 0.06 Baso # (Auto) 0.03 Immature Gran # (Auto) 0.12 H ESR PT INR APTT PTT Ratio Sodium Potassium Chloride Carbon Dioxide Anion Gap BUN Creatinine Est Cr Clr Drug Dosing Est GFR ( Amer) Est GFR (Non-Af Amer) BUN/Creatinine Ratio Glucose Lactate Calcium Magnesium Ferritin Total Bilirubin AST ALT Alkaline Phosphatase Lactate Dehydrogenase Total Creatine Kinase CK-MB (CK-2) CK/CKMB % Calc Troponin I C-Reactive Protein Total Protein Albumin Globulin Albumin/Globulin Ratio Procalcitonin COVID-19 Eval [facility] Influ A Molecular Assay Influ B Molecular Assay RSV (Molecular) SARS-CoV-2, RNA, NAAT NEGATIVE Blood Type Antibody Screen 02/10/20 02/10/20 02/10/20 06:42 06:42 06:42 WBC RBC Hgb Hct MCV MCH MCHC RDW Std Deviation RDW Coeff of Jackie Plt Count MPV Immature Gran % (Auto) Neut % (Auto) Lymph % (Auto) [place] % (Auto) Eos % (Auto) Baso % (Auto) Neut # (Auto) Lymph # (Auto) [place] # (Auto) Eos # (Auto) Baso # (Auto) Immature Gran # (Auto) ESR PT 11.3 INR 1.1 APTT 30.2 PTT Ratio 1.1 Sodium 141 Potassium 4.9 Chloride 107 Carbon Dioxide 28 Anion Gap 6.0 BUN 28 H Creatinine 1.62 H Est Cr Clr Drug Dosing 33.3 Est GFR ( Amer) 41.0 Est GFR (Non-Af Amer) 35.4 BUN/Creatinine Ratio 17.5 Glucose 191 H Lactate Cancelled Calcium 9.0 Magnesium 1.7 L Ferritin Total Bilirubin 0.3 AST 19 ALT 27 Alkaline Phosphatase 100 Lactate Dehydrogenase Total Creatine Kinase CK-MB (CK-2) CK/CKMB % Calc Troponin I < 0.015 C-Reactive Protein 1.96 H Total Protein 6.5 Albumin 2.7 L Globulin 3.8 Albumin/Globulin Ratio 0.7 L Procalcitonin COVID-19 Eval Order Influ A Molecular Assay Influ B Molecular Assay RSV (Molecular) SARS-CoV-2, RNA, NAAT Blood Type Antibody Screen 02/10/20 02/10/20 02/10/20 06:42 06:42 06:42 WBC RBC Hgb Hct MCV MCH MCHC RDW Std Deviation RDW Coeff of Jackie Plt Count MPV Immature Gran % (Auto) Neut % (Auto) Lymph % (Auto) [place] % (Auto) Eos % (Auto) Baso % (Auto) Neut # (Auto) Lymph # (Auto) [place] # (Auto) Eos # (Auto) Baso # (Auto) Immature Gran # (Auto) ESR 55 H PT INR APTT PTT Ratio Sodium Potassium Chloride Carbon Dioxide Anion Gap BUN Creatinine Est Cr Clr Drug Dosing Est GFR ( Amer) Est GFR (Non-Af Amer) BUN/Creatinine Ratio Glucose Lactate Calcium Magnesium Ferritin Total Bilirubin AST ALT Alkaline Phosphatase Lactate Dehydrogenase 220 Total Creatine Kinase CK-MB (CK-2) CK/CKMB % Calc Troponin I C-Reactive Protein Total Protein Albumin Globulin Albumin/Globulin Ratio Procalcitonin 0.26 COVID-19 Eval Order Influ A Molecular Assay Influ B Molecular Assay RSV (Molecular) SARS-CoV-2, RNA, NAAT Blood Type Antibody Screen 02/10/20 02/10/20 02/10/20 06:42 07:03 07:25 WBC RBC Hgb Hct MCV MCH MCHC RDW Std Deviation RDW Coeff of Jackie Plt Count MPV Immature Gran % (Auto) Neut % (Auto) Lymph % (Auto) [place] % (Auto) Eos % (Auto) Baso % (Auto) Neut # (Auto) Lymph # (Auto) [place] # (Auto) Eos # (Auto) Baso # (Auto) Immature Gran # (Auto) ESR PT INR APTT PTT Ratio Sodium Potassium Chloride Carbon Dioxide Anion Gap BUN Creatinine Est Cr Clr Drug Dosing Est GFR ( Amer) Est GFR (Non-Af Amer) BUN/Creatinine Ratio Glucose Lactate 1.2 Calcium Magnesium Ferritin 104.4 Total Bilirubin AST ALT Alkaline Phosphatase Lactate Dehydrogenase Total Creatine Kinase 32 CK-MB (CK-2) < 1.0 CK/CKMB % Calc TNP Troponin I C-Reactive Protein Total Protein Albumin Globulin Albumin/Globulin Ratio Procalcitonin COVID-19 Eval Order Influ A Molecular Assay Influ B Molecular Assay RSV (Molecular) SARS-CoV-2, RNA, NAAT Blood Type A Positive Antibody Screen NEGATIVE 02/10/20 Unknown WBC RBC Hgb Hct MCV MCH MCHC RDW Std Deviation RDW Coeff of Jackie Plt Count MPV Immature Gran % (Auto) Neut % (Auto) Lymph % (Auto) [place] % (Auto) Eos % (Auto) Baso % (Auto) Neut # (Auto) Lymph # (Auto) [place] # (Auto) Eos # (Auto) Baso # (Auto) Immature Gran # (Auto) ESR PT INR APTT PTT Ratio Sodium Potassium Chloride Carbon Dioxide Anion Gap BUN Creatinine Est Cr Clr Drug Dosing Est GFR ( Amer) Est GFR (Non-Af Amer) BUN/Creatinine Ratio Glucose Lactate Calcium Magnesium Ferritin Total Bilirubin AST ALT Alkaline Phosphatase Lactate Dehydrogenase Total Creatine Kinase CK-MB (CK-2) CK/CKMB % Calc Troponin I C-Reactive Protein Total Protein Albumin Globulin Albumin/Globulin Ratio Procalcitonin COVID-19 Eval Order Influ A Molecular Assay Negative Influ B Molecular Assay Negative RSV (Molecular) Negative SARS-CoV-2, RNA, NAAT Blood Type Antibody Screen Diagnostic Findings cxr - IMPRESSION: 1. No significant change in interstitial thickening and bibasilar opacities which may reflect an infectious process. 2. Trace bilateral pleural effusions. No pneumothorax. Code Status & VTE Plan Code Status POLST form reviewed - DNR/DNI VTE Prophylaxis Plan VTE Prophylaxis will be ordered: Yes PG Care Time/CCT Total # of Minutes Spent Total Time Spent with Patient: Total time spent is greater than 50% in coordination of care (as documented) at patient's floor/unit and/or counseling patient: Coding Level of Care Code 94908 Initial Inpt Care Lvl 3 Diagnoses Acute and chronic respiratory failure with hypoxia J96.21 Sepsis A41.9 SOM (acute kidney injury) N17.9 Aspiration pneumonia J69.0 Uncontrolled type 1 diabetes mellitus E10.65 Acute metabolic encephalopathy G93.41 Hypothyroidism E03.9 Hypothyroidism type: unspecified GERD (gastroesophageal reflux disease) K21.9 Esophagitis presence: esophagitis presence not specified Seizure disorder G40.909 Dementia F03.90 Dementia behavioral disturbance: without behavioral disturbance Dementia type: unspecified type Chronic obstructive pulmonary disease J44.9 COPD type: unspecified COPD Down syndrome Q90.9 DVT prophylaxis Z29.9 (1) Dementia Dementia behavioral disturbance: without behavioral disturbance Dementia type: unspecified type Qualified Code(s): F03.90 - Unspecified dementia without behavioral disturbance (2) Hypothyroidism Hypothyroidism type: unspecified Qualified Code(s): E03.9 - Hypothyroidism, unspecified (3) Chronic obstructive pulmonary disease COPD type: unspecified COPD Qualified Code(s): J44.9 - Chronic obstructive pulmonary disease, unspecified (4) GERD (gastroesophageal reflux disease) Esophagitis presence: esophagitis presence not specified Qualified Code(s): K21.9 - Gastro-esophageal reflux disease without esophagitis
--- NOTE | 2020-02-10 08:18 | Emergency Department Note ---
History of Present Illness General Chief complaint: Shortness of Breath/Dyspnea Stated complaint: RESPIRATORY DISTRESS Time Seen by Provider: 02/10/20 06:29 Source: patient, EMS, RN notes reviewed and old records reviewed Mode of arrival: EMS Limitations: physical limitation History of Present Illness Provider complaint: chest pain, SOB Onset (ago): hour(s) 1 Location: chest Radiation: back Severity: moderate Pain Consistency: + intermittent Maximum Pain Intensity: 8 Current Pain Intensity: 8 Quality: + aching Relieved By: + immobilization Exacerbated By: + movement Associated symptoms: + chest pain, + fever/chills, + nausea/vomiting and + shortness of breath Treatments prior to arrival: other (oxygen) This is a 54-year-old female who lives in a care home who was sent in to the emergency department over concerns that the patient has increasing shortness of breath as well as chest pain. Patient was just admitted to the hospital approximately 2 weeks ago for aspiration pneumonia. She was placed on 15 L of nonrebreather as she was found at the care home today. Patient is complaining herself of chest pain. She has a trach in place. She reports taking a deep breath makes the pain worse however immobilization makes the pain better. She was given oxygen for the pain. Home Medications Medication Instructions Recorded Confirmed Type promethazine 12.5 mg tablet 12.5 mg PO Q8 PRN #30 tab 12/23/18 02/10/20 Rx blood-glucose transmitter #1 ea 02/26/19 01/20/20 History infusion set for insulin pump ea 02/26/19 01/20/20 History insulin syringe,safetyneedle 1 mL #500 ea 02/26/19 01/20/20 History 29 gauge x 1/2" fluconazole 150 mg tablet 150 mg PO DAILY PRN #7 tab 03/25/19 02/10/20 Rx calcium carbonate 500 mg calcium 500 mg PO TID #270 tab 04/03/19 02/10/20 Rx (1,250 mg) tablet Novolog U-100 Insulin aspart 100 70 units SUBCUT .COMPLEX 90 Days 06/09/19 02/10/20 Rx unit/mL subcutaneous solution #70 ml NS atorvastatin 10 mg tablet 10 mg PO HS #90 tab 07/02/19 02/10/20 Rx levothyroxine 125 mcg tablet 125 mcg PO DAILY #90 tab 08/21/19 02/10/20 Rx fluticasone furoate 100 1 inh INHALATION DAILY #1 inhaler 10/27/19 02/10/20 Rx mcg-vilanterol 25 mcg/dose inhalation powder acetylcysteine 200 mg/mL (20 %) 4 ml INHALATION BID #240 ml 11/19/19 02/10/20 Rx solution Basaglar KwikPen U-100 Insulin See Rx Instructions SQ DAILY 12/23/19 02/10/20 History acetaminophen [Tylenol] 650 mg PO Q4H PRN MDD 4000MG 12/23/19 02/10/20 History [employer] Phos Flur 15 ml MUCOUS MEMBRANE HS 01/04/20 02/10/20 History aspirin 81 mg PO Q2D 01/04/20 02/10/20 History cholecalciferol (vitamin D3) 100 mcg PO DAILY 01/04/20 02/10/20 History clotrimazole 1 applic TOPICAL TID PRN 01/04/20 02/10/20 History clotrimazole-betamethasone 1 appln TOP DAILY PRN 01/04/20 02/10/20 History prednisone 10 mg tablet 10 mg PO DAILY #30 tab 01/11/20 02/10/20 Rx sodium chloride 0.9 % 273 ml IV BID #[id number] ml 01/11/20 02/10/20 Rx hydrochlorothiazide 25 mg tablet 12.5 mg PO QAM #30 tab 01/14/20 02/10/20 Rx albuterol sulfate 90 mcg/actuation 2 puff INH QID PRN #18 gm 01/20/20 02/10/20 Rx aerosol inhaler omeprazole 20 mg capsule,delayed 20 mg PO QAM 01/20/20 02/10/20 History release sulfamethoxazole 800 1 tab PO .COMPLEX 01/20/20 02/10/20 History mg-trimethoprim 160 mg tablet citalopram 40 mg tablet 40 mg PO QAM #30 tab 01/25/20 02/10/20 Rx fexofenadine 180 mg tablet 180 mg PO HS #30 tab 01/25/20 02/10/20 Rx montelukast 10 mg tablet 10 mg PO PM #30 tab 01/25/20 02/10/20 Rx albuterol sulfate 2.5 mg INHALATION BID 02/10/20 02/10/20 History albuterol sulfate 2.5 mg INHALATION Q4 PRN 02/10/20 02/10/20 History glucose 4 g PO DAILY PRN MDD until response 02/10/20 02/10/20 History multivitamin,[id number] 1 tab PO QAM 02/10/20 02/10/20 History [Therems-M] Allergies Allergy/AdvReac Type Severity Reaction Status Date / Time cefaclor Allergy Intermediate HIVES Verified 02/10/20 07:13 Cephalosporins Allergy Intermediate rash per Verified 02/10/20 07:13 mother sertraline AdvReac Mild INTOLERANCE Verified 02/10/20 07:13 Past Med/Surg History Medical History Chronic obstructive pulmonary disease Chronic pulmonary aspiration Dementia Depression Diabetes type 1, controlled Down syndrome GERD (gastroesophageal reflux disease) Jeri's thyroiditis History of allergic rhinitis History of athlete's foot History of bacterial pneumonia History of candidiasis of mouth History of chronic bronchitis History of community acquired pneumonia History of constipation History of diarrhea History of dysuria History of edema History of hyperkalemia History of hypotension History of nausea History of sunburn History of tinea corporis History of uncontrolled diabetes Hypothyroidism CAMILLA (obstructive sleep apnea) Patent foramen ovale Pneumonia Seizure disorder Tracheostomy in place Surgical History History of bronchoscopy History of thoracotomy Hx of hand surgery S/P resection of aortic aneurysm Family History Other Diabetes Hypertension Denies family history of Colorectal cancer Social History Smoking Status: Never smoker Second Hand Exposure: No; Do You Dip or Chew Tobacco: No; Hx Alcohol Use: No Hx Substance Use: No Preferred Language: Gibraltarian Communication Ability: Impaired Communication Ability Comment: pt has hx of down syndrome Calibration Tester Required: No Beliefs That Will Affect Care: None marital status: Single Current Living Situation: Other Current Living Situation Comment: [facility] current occupational status: disabled How many Children do You have: 0 Other Information That Helps Us Care for You: No Feels Safe at Home: Yes Safety Concerns: Feels Safe At This Time Seatbelt Use: always Assistive Devices: Oxygen - Continuous Review of Systems A total of 10 systems reviewed and were otherwise negative Physical Exam Vital Signs Vital Signs - 24 hr 02/10/20 06:20 02/10/20 06:28 02/10/20 06:30 Temperature 38.0 C H Temperature Source Oral Pulse Rate 91 H 87 Pulse Rate from SpO2 Sensor 86 Respiratory Rate 24 26 H Respiratory Effort / Characteristics Non-Labored Spontaneous Respiratory Depth Normal Blood Pressure 108/53 L 103/66 Blood Pressure Mean 71 81 Pulse Oximetry 85 L 95 Oxygen Delivery Method Room Air Non-rebreather Oxygen Flow Rate 10 10 Fraction of Inspired Oxygen Sepsis Recent Fever Within 48 Hours Yes Sepsis New/Unexplained Change in Mental Status N/A Sepsis Action Taken by Nursing No Action Required 02/10/20 07:00 02/10/20 07:02 02/10/20 07:08 Temperature Temperature Source Pulse Rate 85 Pulse Rate from SpO2 Sensor 84 Respiratory Rate 24 18 Respiratory Effort / Characteristics Spontaneous Spontaneous Respiratory Depth Blood Pressure 87/63 L Blood Pressure Mean 67 Pulse Oximetry 98 94 91 Oxygen Delivery Method Trach Collar Oxygen Flow Rate 10 10 12 Fraction of Inspired Oxygen 100 Sepsis Recent Fever Within 48 Hours Sepsis New/Unexplained Change in Mental Status Sepsis Action Taken by Nursing 02/10/20 07:15 02/10/20 07:30 02/10/20 07:43 Temperature Temperature Source Pulse Rate 84 79 Pulse Rate from SpO2 Sensor 84 79 Respiratory Rate 27 H 25 H Respiratory Effort / Characteristics Spontaneous Respiratory Depth Blood Pressure 95/62 L 101/66 Blood Pressure Mean 79 72 Pulse Oximetry 94 98 Oxygen Delivery Method Trach Collar Trach Collar Trach Collar Oxygen Flow Rate 94 Fraction of Inspired Oxygen 100 100 Sepsis Recent Fever Within 48 Hours Sepsis New/Unexplained Change in Mental Status Sepsis Action Taken by Nursing 02/10/20 07:45 02/10/20 08:00 02/10/20 08:01 Temperature Temperature Source Pulse Rate 82 76 Pulse Rate from SpO2 Sensor 83 76 Respiratory Rate 24 25 H 26 H Respiratory Effort / Characteristics Spontaneous Respiratory Depth Blood Pressure 84/61 L 83/53 L Blood Pressure Mean 65 71 Pulse Oximetry 95 95 96 Oxygen Delivery Method Trach Collar Trach Collar Trach Collar Oxygen Flow Rate Fraction of Inspired Oxygen 100 100 100 Sepsis Recent Fever Within 48 Hours Sepsis New/Unexplained Change in Mental Status Sepsis Action Taken by Nursing 02/10/20 08:15 02/10/20 08:30 02/10/20 08:45 Temperature Temperature Source Pulse Rate 76 75 71 Pulse Rate from SpO2 Sensor 76 74 71 Respiratory Rate 27 H 26 H 24 Respiratory Effort / Characteristics Respiratory Depth Blood Pressure 95/66 L 99/67 L 123/70 Blood Pressure Mean 75 82 90 Pulse Oximetry 99 97 100 Oxygen Delivery Method Trach Collar Trach Collar Trach Collar Oxygen Flow Rate Fraction of Inspired Oxygen 100 100 100 Sepsis Recent Fever Within 48 Hours Sepsis New/Unexplained Change in Mental Status Sepsis Action Taken by Nursing 02/10/20 09:00 Temperature Temperature Source Pulse Rate 68 Pulse Rate from SpO2 Sensor 68 Respiratory Rate 22 Respiratory Effort / Characteristics Respiratory Depth Blood Pressure 95/75 L Blood Pressure Mean 83 Pulse Oximetry 100 Oxygen Delivery Method Trach Collar Oxygen Flow Rate Fraction of Inspired Oxygen 100 Sepsis Recent Fever Within 48 Hours Sepsis New/Unexplained Change in Mental Status Sepsis Action Taken by Nursing VITAL SIGNS - Vital signs and nursing notes were reviewed. GENERAL - 54-year-old female appearing stated age who is in moderate distress. SKIN - Without rashes. HEAD - NC/AT. EYES - PERRL with EOMI bilaterally. Sclera anicteric. Palpebral conjunctiva pink and moist with no injection noted. EARS - No deformities of external structures noted on gross examination bilaterally. No pain elicited with palpation of the tragus bilaterally. External auditory canals without discharge or otorrhea. Tympanic membranes pearly alexander without retraction or bulging. No fluid or purulent material visualized behind the TM. Handle of malleus, umbo, cone of light, pars tensa/flaccid all easily visualized. NOSE - Midline and without cyanosis. No epistaxis or purulent drainage noted. Septum midline without deviation or septal hematoma noted. MOUTH/OROPHARYNX - Without perioral cyanosis. Buccal mucosa pink and moist and without leukoplakia. Tongue midline with equal elevation of palate bilaterally. No tonsillar hypertrophy, erythema, or exudates noted. dentition noted. NECK - Trach in place LUNGS - wheezes present b/l CARDIAC - RRR with S1/S2. No murmur, rubs, or gallops appreciated. ABDOMEN - Abdominal contour without pulsations or visible masses. BS normoactive all four quadrants. No tenderness, palpable masses, hepatosplenomegaly, or ascites noted. EXTREMITIES - No clubbing or peripheral cyanosis. No pretibial edema present. +3/5 radial, posterior tibial, and dorsalis pedis pulses palpated throughout. +5/5 strength noted in UE/LE bilaterally. NEUROLOGIC - Cranial nerves II through XII grossly intact. Sensory intact to light touch throughout. Patellar reflexes +2/4. PSYCH - A&Ox3 and cooperates fully with examiner. Pt is very pleasant and interacts well with examiner. Course Administered Medications Albuterol (Albuterol 0.083% Nebu Soln 3 Ml Vial) 2.5 mg INH BID LEONOR Stop: 03/11/20 10:44 Last Admin: 02/10/20 11:08 Dose: 2.5 mg Documented by: [id number] Citalopram Hydrobromide (Citalopram 40 Mg Tab) 40 mg PO QAM LEONOR Stop: 03/11/20 10:59 Last Admin: 02/10/20 12:00 Dose: 40 mg Documented by: [id number] Fluticasone/Vilanterol (Fluticasone/Vilanterol 100/25mcg 14 Puffs/Inhaler) 1 puffs INH DAILY LEONOR Stop: 03/11/20 10:59 Last Admin: 02/10/20 11:38 Dose: 1 puffs Documented by: [id number] Sodium Chloride (Nss 1000ml) 1,000 mls @ 100 mls/hr IV .Q10H LEONOR Stop: 03/11/20 10:44 Last Admin: 02/10/20 11:35 Dose: 100 mls/hr Documented by: [id number] Methylprednisolone 20 mg/ (Syringe) 0.32 mls @ 1.5 mls/min IV BID LEONOR Stop: 03/11/20 10:59 Last Admin: 02/10/20 11:38 Dose: 1.5 mls/min Documented by: [id number] Piperacillin Sod/Tazobactam (Sod 3.375 gm/ Dextrose) 115 mls @ 28.75 mls/hr IV Q8H LEONOR; Protocol Stop: 02/17/20 11:59 Last Admin: 02/10/20 12:28 Dose: 28.8 mls/hr Documented by: [id number] Insulin Aspart (Insulin Aspart 100 Units/Ml 3 Ml Pen) 0 units SC Q6 LEONOR Stop: 03/11/20 11:29 Last Admin: 02/10/20 12:32 Dose: 5 units Documented by: [id number] Cosigned by: [id number] Insulin Glargine (Insulin Glargine Solostar 100 Units/Ml 3 Ml Pen) 19 units SC QAM LEONOR Stop: 03/11/20 11:29 Last Admin: 02/10/20 12:33 Dose: 19 units Documented by: [id number] Cosigned by: [id number] Lactobacillus Acidoph/Casei/Rhamnos (Advanced Probiotic 1250 Mg Capsule) 2 cap PO DAILY LEONOR Stop: 03/11/20 10:59 Last Admin: 02/10/20 12:01 Dose: 2 cap Documented by: [id number] Levothyroxine Sodium (Levothyroxine Sodium 125 Mcg Tablet) 125 mcg PO DAILYBB LEONOR Stop: 03/11/20 10:59 Last Admin: 02/10/20 12:01 Dose: 125 mcg Documented by: [id number] Pantoprazole Sodium (Pantoprazole 40 Mg Tab) 40 mg PO QAM LEONOR Stop: 03/11/20 10:59 Last Admin: 02/10/20 12:01 Dose: 40 mg Documented by: [id number] Discontinued Medications Albuterol (Albuterol 0.083% Nebu Soln 3 Ml Vial) 2.5 mg NEB NOW STA Stop: 02/10/20 06:49 Last Admin: 02/10/20 07:05 Dose: 2.5 mg Documented by: [id number] Dexamethasone (Dexamethasone Sod Inj 4 Mg/Ml Vial) 6 mg IV NOW STA Stop: 02/10/20 07:04 Last Admin: 02/10/20 07:30 Dose: 6 mg Documented by: [id number] Acetaminophen (Ofirmev) 1,000 mg in 100 mls @ 400 mls/hr IV NOW STA Stop: 02/10/20 06:40 Last Admin: 02/10/20 06:52 Dose: Not Given Documented by: [id number] Piperacillin Sod/Tazobactam Sod (Zosyn) 4.5 gm in 120 mls @ 240 mls/hr IV NOW ONE Stop: 02/10/20 07:33 Last Infusion: 02/10/20 08:07 Dose: 0 mls/hr Documented by: [id number] Admin: 02/10/20 07:29 Dose: 240 mls/hr Documented by: [id number] Levofloxacin/Dextrose (Levaquin/D5w) 750 mg in 150 mls @ 100 mls/hr IV NOW STA Stop: 02/10/20 08:33 Last Infusion: 02/10/20 09:31 Dose: 0 mls/hr Documented by: [id number] Admin: 02/10/20 08:07 Dose: 100 mls/hr Documented by: [id number] Vancomycin HCl 1,250 mg/ (Sodium Chloride) 525 mls @ 200 mls/hr IV NOW ONE Stop: 02/10/20 09:41 Last Infusion: 02/10/20 10:46 Dose: 0 mls/hr Documented by: [id number] Admin: 02/10/20 07:30 Dose: 200 mls/hr Documented by: [id number] Sodium Chloride (Nss 1000ml) 1,000 mls @ 999 mls/hr IV .Q1H1M ONE Stop: 02/10/20 08:08 Last Infusion: 02/10/20 08:17 Dose: 0 mls/hr Documented by: [id number] Admin: 02/10/20 07:15 Dose: 999 mls/hr Documented by: [id number] Sodium Chloride (Nss 1000ml) 1,000 mls @ 999 mls/hr IV .Q1H1M ONE Stop: 02/10/20 08:24 Last Infusion: 02/10/20 09:31 Dose: 0 mls/hr Documented by: [id number] Admin: 02/10/20 08:22 Dose: 999 mls/hr Documented by: [id number] Magnesium Sulfate/Dextrose (Magnesium Sulfate / D5w) 1 gm in 100 mls @ 50 mls/hr IV ONE ONE Stop: 02/10/20 09:49 Last Infusion: 02/10/20 11:33 Dose: 0 mls/hr Documented by: [id number] Admin: 02/10/20 09:31 Dose: 50 mls/hr Documented by: [id number] Insulin Human NPH (Novolin-N (Nph) Per Unit Charge) 12 units SQ ONE ONE Stop: 02/10/20 12:31 Last Admin: 02/10/20 12:43 Dose: 12 units Documented by: [id number] Cosigned by: [id number] Critical Care Time I have personally spent greater than 30 minutes of critical care time in the direct management of this patient. This includes bedside care, interpretation of diagnostic studies, and testing, discussion with consultants, patient, and family members, and other required patient management activities. This 30 minutes is in excess of all separately billable procedures. Medical Decision Making Differential Diagnosis Sepsis, UTI, pneumonia, metabolic, electrolyte abnormalities, cardiac sources, intracerebral event, toxicologic, neurologic, as well as other pathologies. Medical Records Attestation: I reviewed the patient's medical records. Home Medications Current Medication List: was personally reviewed by me Laboratory Data Attestation: I reviewed the patient's lab results. Result diagrams: 02/10/20 06:42 02/10/20 06:42 Lab Results 02/10/20 02/10/20 02/10/20 Range/Units 06:30 06:30 06:42 WBC 26.82 H (4.8-10.8) K/uL RBC 3.11 L (4.2-5.4) M/uL Hgb 10.2 L (12.0-16.0) g/dL Hct 32.2 L (37-47) % MCV 103.5 H (80-100) fL MCH 32.8 (25-34) pg MCHC 31.7 L (32-36) g/dL RDW Std Deviation 57.6 H (36.4-46.3) fL RDW Coeff of Jackie 15.3 H (11.5-14.5) % Plt Count 257 (130-400) K/uL MPV 9.9 (7.4-10.4) fL Immature Gran % (Auto) 0.4 % Neut % (Auto) 89.4 % Lymph % (Auto) 6.0 % [place] % (Auto) 3.9 % Eos % (Auto) 0.2 % Baso % (Auto) 0.1 % Neut # (Auto) 23.97 H (1.4-6.5) K/uL Lymph # (Auto) 1.60 (1.2-3.4) K/uL [place] # (Auto) 1.04 H (0.11-0.59) K/uL Eos # (Auto) 0.06 (0-0.5) K/uL Baso # (Auto) 0.03 (0-0.2) K/uL Immature Gran # (Auto) 0.12 H (0.00-0.02) K/uL ESR (0-21) mm/hr PT (9.0-12.0) Seconds INR (0.9-1.1) APTT (21.0-31.0) Seconds PTT Ratio Sodium (136-145) mmol/L Potassium (3.5-5.1) mmol/L Chloride (98-107) mmol/L Carbon Dioxide (21-32) mmol/L Anion Gap (3-11) BUN (7-18) mg/dl Creatinine (0.6-1.2) mg/dl Est Cr Clr Drug Dosing ml/min Est GFR ( Amer) Est GFR (Non-Af Amer) BUN/Creatinine Ratio (10-20) Glucose (70-99) mg/dl Lactate Calcium (8.5-10.1) mg/dl Magnesium (1.8-2.4) mg/dl Ferritin (8-388) ng/ml Total Bilirubin (0.2-1) mg/dl AST (15-37) U/L ALT (12-78) U/L Alkaline Phosphatase (45-117) U/L Lactate Dehydrogenase (84-246) U/L Total Creatine Kinase (26-192) U/L CK-MB (CK-2) (0.5-3.6) ng/ml CK/CKMB % Calc Troponin I (0-0.045) ng/ml C-Reactive Protein (0-0.29) mg/dl Total Protein (6.4-8.2) gm/dl Albumin (3.4-5.0) gm/dl Globulin (2.5-4.0) gm/dl Albumin/Globulin Ratio (0.9-2) Procalcitonin (0-0.5) ng/ml COVID-19 Eval [email or web address] SARS-[facility]-2, RNA, NAAT NEGATIVE (NEGATIVE) Blood Type Antibody Screen 02/10/20 02/10/20 02/10/20 Range/Units 06:42 06:42 06:42 WBC (4.8-10.8) K/uL RBC (4.2-5.4) M/uL Hgb (12.0-16.0) g/dL Hct (37-47) % MCV (80-100) fL MCH (25-34) pg MCHC (32-36) g/dL RDW Std Deviation (36.4-46.3) fL RDW Coeff of Jackie (11.5-14.5) % Plt Count (130-400) K/uL MPV (7.4-10.4) fL Immature Gran % (Auto) % Neut % (Auto) % Lymph % (Auto) % [place] % (Auto) % Eos % (Auto) % Baso % (Auto) % Neut # (Auto) (1.4-6.5) K/uL Lymph # (Auto) (1.2-3.4) K/uL [place] # (Auto) (0.11-0.59) K/uL Eos # (Auto) (0-0.5) K/uL Baso # (Auto) (0-0.2) K/uL Immature Gran # (Auto) (0.00-0.02) K/uL ESR (0-21) mm/hr PT 11.3 (9.0-12.0) Seconds INR 1.1 (0.9-1.1) APTT 30.2 (21.0-31.0) Seconds PTT Ratio 1.1 Sodium 141 (136-145) mmol/L Potassium 4.9 (3.5-5.1) mmol/L Chloride 107 (98-107) mmol/L Carbon Dioxide 28 (21-32) mmol/L Anion Gap 6.0 (3-11) BUN 28 H (7-18) mg/dl Creatinine 1.62 H (0.6-1.2) mg/dl Est Cr Clr Drug Dosing 33.3 ml/min Est GFR ( Amer) 41.0 Est GFR (Non-Af Amer) 35.4 BUN/Creatinine Ratio 17.5 (10-20) Glucose 191 H (70-99) mg/dl Lactate Cancelled Calcium 9.0 (8.5-10.1) mg/dl Magnesium 1.7 L (1.8-2.4) mg/dl Ferritin (8-388) ng/ml Total Bilirubin 0.3 (0.2-1) mg/dl AST 19 (15-37) U/L ALT 27 (12-78) U/L Alkaline Phosphatase 100 (45-117) U/L Lactate Dehydrogenase (84-246) U/L Total Creatine Kinase (26-192) U/L CK-MB (CK-2) (0.5-3.6) ng/ml CK/CKMB % Calc Troponin I < 0.015 (0-0.045) ng/ml C-Reactive Protein 1.96 H (0-0.29) mg/dl Total Protein 6.5 (6.4-8.2) gm/dl Albumin 2.7 L (3.4-5.0) gm/dl Globulin 3.8 (2.5-4.0) gm/dl Albumin/Globulin Ratio 0.7 L (0.9-2) Procalcitonin (0-0.5) ng/ml COVID-19 Eval Order SARS-CoV-2, RNA, NAAT (NEGATIVE) Blood Type Antibody Screen 02/10/20 02/10/20 02/10/20 Range/Units 06:42 06:42 06:42 WBC (4.8-10.8) K/uL RBC (4.2-5.4) M/uL Hgb (12.0-16.0) g/dL Hct (37-47) % MCV (80-100) fL MCH (25-34) pg MCHC (32-36) g/dL RDW Std Deviation (36.4-46.3) fL RDW Coeff of Jackie (11.5-14.5) % Plt Count (130-400) K/uL MPV (7.4-10.4) fL Immature Gran % (Auto) % Neut % (Auto) % Lymph % (Auto) % [place] % (Auto) % Eos % (Auto) % Baso % (Auto) % Neut # (Auto) (1.4-6.5) K/uL Lymph # (Auto) (1.2-3.4) K/uL [place] # (Auto) (0.11-0.59) K/uL Eos # (Auto) (0-0.5) K/uL Baso # (Auto) (0-0.2) K/uL Immature Gran # (Auto) (0.00-0.02) K/uL ESR 55 H (0-21) mm/hr PT (9.0-12.0) Seconds INR (0.9-1.1) APTT (21.0-31.0) Seconds PTT Ratio Sodium (136-145) mmol/L Potassium (3.5-5.1) mmol/L Chloride (98-107) mmol/L Carbon Dioxide (21-32) mmol/L Anion Gap (3-11) BUN (7-18) mg/dl Creatinine (0.6-1.2) mg/dl Est Cr Clr Drug Dosing ml/min Est GFR ( Amer) Est GFR (Non-Af Amer) BUN/Creatinine Ratio (10-20) Glucose (70-99) mg/dl Lactate Calcium (8.5-10.1) mg/dl Magnesium (1.8-2.4) mg/dl Ferritin (8-388) ng/ml Total Bilirubin (0.2-1) mg/dl AST (15-37) U/L ALT (12-78) U/L Alkaline Phosphatase (45-117) U/L Lactate Dehydrogenase 220 (84-246) U/L Total Creatine Kinase (26-192) U/L CK-MB (CK-2) (0.5-3.6) ng/ml CK/CKMB % Calc Troponin I (0-0.045) ng/ml C-Reactive Protein (0-0.29) mg/dl Total Protein (6.4-8.2) gm/dl Albumin (3.4-5.0) gm/dl Globulin (2.5-4.0) gm/dl Albumin/Globulin Ratio (0.9-2) Procalcitonin 0.26 (0-0.5) ng/ml COVID-19 Eval Order SARS-CoV-2, RNA, NAAT (NEGATIVE) Blood Type Antibody Screen 02/10/20 02/10/20 02/10/20 Range/Units 06:42 07:03 07:25 WBC (4.8-10.8) K/uL RBC (4.2-5.4) M/uL Hgb (12.0-16.0) g/dL Hct (37-47) % MCV (80-100) fL MCH (25-34) pg MCHC (32-36) g/dL RDW Std Deviation (36.4-46.3) fL RDW Coeff of Jackie (11.5-14.5) % Plt Count (130-400) K/uL MPV (7.4-10.4) fL Immature Gran % (Auto) % Neut % (Auto) % Lymph % (Auto) % [place] % (Auto) % Eos % (Auto) % Baso % (Auto) % Neut # (Auto) (1.4-6.5) K/uL Lymph # (Auto) (1.2-3.4) K/uL [place] # (Auto) (0.11-0.59) K/uL Eos # (Auto) (0-0.5) K/uL Baso # (Auto) (0-0.2) K/uL Immature Gran # (Auto) (0.00-0.02) K/uL ESR (0-21) mm/hr PT (9.0-12.0) Seconds INR (0.9-1.1) APTT (21.0-31.0) Seconds PTT Ratio Sodium (136-145) mmol/L Potassium (3.5-5.1) mmol/L Chloride (98-107) mmol/L Carbon Dioxide (21-32) mmol/L Anion Gap (3-11) BUN (7-18) mg/dl Creatinine (0.6-1.2) mg/dl Est Cr Clr Drug Dosing ml/min Est GFR ( Amer) Est GFR (Non-Af Amer) BUN/Creatinine Ratio (10-20) Glucose (70-99) mg/dl Lactate 1.2 Calcium (8.5-10.1) mg/dl Magnesium (1.8-2.4) mg/dl Ferritin 104.4 (8-388) ng/ml Total Bilirubin (0.2-1) mg/dl AST (15-37) U/L ALT (12-78) U/L Alkaline Phosphatase (45-117) U/L Lactate Dehydrogenase (84-246) U/L Total Creatine Kinase 32 (26-192) U/L CK-MB (CK-2) < 1.0 (0.5-3.6) ng/ml CK/CKMB % Calc TNP Troponin I (0-0.045) ng/ml C-Reactive Protein (0-0.29) mg/dl Total Protein (6.4-8.2) gm/dl Albumin (3.4-5.0) gm/dl Globulin (2.5-4.0) gm/dl Albumin/Globulin Ratio (0.9-2) Procalcitonin (0-0.5) ng/ml COVID-19 Eval Order SARS-CoV-2, RNA, NAAT (NEGATIVE) Blood Type A Positive Antibody Screen NEGATIVE Imaging Data Radiologist's Impression: [facility], [place] [phone] XRay Report Patient: YVONNE WASHINGTON Admit Date: 02/10/20 MR#: [id number] Address[address]: [address] Acct ID:[id number] Address2: Date: 1965 [facility] Zip: [id number] Age: 54 Location: ED Sex: F Room/Bed: Att Phy: Diagnosis: RESPIRATORY DISTRESS Jennifer Phy: Vladimir Lucio MD Service Date: 02/10/20 Fam Phy: Interpreting Phy: Manny Gorman MD Admit Phy: Ordering Phy: Tosin Card ., [place] cc: ~ XR chest 1V portable CLINICAL HISTORY: sob COMPARISON STUDY: Chest CT January 04, 2020. Chest radiograph January 05, 2020. FINDINGS: Tracheostomy tube and right subclavian [id number] are in place. Multiple old bilateral rib fractures are noted. There is no pneumothorax. Trace bilateral pleural effusions are noted. Cardiomediastinal silhouette is stable. Incidental note is made of a right-sided aortic arch. Interstitial thickening and bibasilar opacities are again noted. IMPRESSION: 1. No significant change in interstitial thickening and bibasilar opacities which may reflect an infectious process. 2. Trace bilateral pleural effusions. No pneumothorax. ACT 112: Negative or not required by law. Electronically signed by: Manny Gorman M.D. 02/10/2020 6:52 AM Dictated: 02/10/20648 Transcribed: 02/10/20648 ECG Data Attestation: I personally reviewed and interpreted this ECG as follows: Indication: + other (fever) Rate (beats per minute): 89 Rhythm: + normal sinus ECG Intervals/blocks: + Normal QT-c (430) ECG [place]: + Normal ECG ST segments: no ST depression and no ST elevation Comparison ECG Date: from (01/04/2020) Change: the following changes noted (rate increased by 34 ) MDM Narrative Patient was seen and evaluated as above in room A9. Review was performed of nursing notes and vital signs. I did review pertinent previous visits and patient history. After obtaining a thorough history and physical examination the above work up was performed. This is a 54-year-old female who presents emergency department hypotensive tachycardic febrile and hypoxic. A sepsis alert was immediately initiated. Patient was given Tylenol Decadron and broad-spectrum antibiotics including vancomycin Zosyn Levaquin. Patient does have a large elevation in her white blood cell count does appear to have aspiration pneumonia on chest x-ray. Her Covid test is negative. I did discuss the case with the hospitalist service who did agree to admit the patient. Lactate and blood cultures were obtained. Patient was given normal saline bolus 30 mL/kg. While in the department, I personally reevaluated the patient several times and each time the patient was found to be resting comfortably. The patient was educated upon management, educated upon todays findings/results, educated upon importance of follow up from today's visit, educated upon symptoms in which to return, had questions answered prior to discharge, verbalized understanding, and was discharged home in good condition. An order was placed for continuous cardiac monitoring. The monitor shows a rate of 62 with Normal SInus rhythm. The patient was evaluated during the global COVID-19 pandemic, and that diagnosis was suspected/considered upon their initial presentation. Their evaluation, treatment and testing was consistent with current guidelines for patients who present with complaints or symptoms that may be related to COVID- 19. Impression & Plan Sepsis, Hypoxia, Aspiration pneumonia Discharge Plan Visit Data Chief Complaint: Shortness of Breath/Dyspnea Stated Complaint: RESPIRATORY DISTRESS ED Provider: Sal Mcmullen Discharge Problem: Sepsis, Hypoxia, Aspiration pneumonia Patient Disposition: Admitted As Inpatient Discharge Instructions Interventions: ED Discharge Assessment Last Done: 02/10/20 09:47 Discharge Problem: Sepsis Qualifiers: Sepsis type: sepsis due to unspecified organism Sepsis acute organ dysfunction status: unspecified Qualified Code(s): A41.9 - Sepsis, unspecified organism Aspiration pneumonia Qualifiers: Aspiration pneumonia type: unspecified Laterality: unspecified laterality Lung location: unspecified part of lung Qualified Code(s): J69.0 - Pneumonitis due to inhalation of food and vomit
[2020-02-10 08:34] LABS: Influenza A virus by PCR Negative (Negative); Influenza B virus by PCR Negative (Negative); RSV by PCR Negative (Negative)
[2020-02-10 09:41] LABS: Base Excess VBG -1.1 mEq/L; Oxygen Saturation VBG 80.2 %; pH VBG 7.32 (7.36-7.41)
[2020-02-10] MEDS ORDERED: ALBUTEROL 0.083% NEBU SOLN 3 ML VIAL INH PRN (10:45)
[2020-02-10] MEDS ORDERED: ONDANSETRON INJ 2 MG/ML 2 ML VIAL IV PRN (10:45)
[2020-02-10] MEDS ORDERED: CLOTRIMAZOLE 1% CR 15 GM TUBE TOP PRN (10:45)
[2020-02-10] MEDS ORDERED: methylPREDNISolone 20 MG in SYRINGE 0 ML IV SCH (11:00)
[2020-02-10] MEDS ORDERED: PHARMACY GLYCEMIC MGMT CONSULT PRN (11:04)
[2020-02-10] MEDS: ALBUTEROL 0.083% NEBU SOLN 3 ML VIAL INH SCH ×2 (11:08→19:51)
[2020-02-10] MEDS ORDERED: GLUCAGON FOR INJ 1 MG VIAL IM PRN (11:15)
[2020-02-10] MEDS ORDERED: GLUCOSE 10 TABS/TUBE PO PRN (11:15)
[2020-02-10] MEDS ORDERED: GLUCOSE 40% GEL 15 GM TUBE PO PRN (11:15)
[2020-02-10] MEDS ORDERED: DEXTROSE 50% 50 ML SYRINGE IV PRN (11:15)
[2020-02-10] MEDS ORDERED: INSULIN ASPART 100 UNITS/ML 3 ML PEN SC SCH ×2 (11:30→12:00)
[2020-02-10] MEDS: SODIUM CHLORIDE 0.9% 1000ML 1,000 ML IV SCH ×2 (11:35→22:05)
[2020-02-10] MEDS: FLUTICASONE/VILANTEROL 100/25MCG 14 PUFFS/INHALER INH SCH (11:38)
[2020-02-10] MEDS: CITALOPRAM 40 MG TAB PO SCH (12:00)
[2020-02-10] MEDS: PANTOprazole 40 MG TAB PO SCH (12:01)
[2020-02-10] MEDS: ADVANCED PROBIOTIC 1250 MG CAPSULE PO SCH (12:01)
[2020-02-10] MEDS: LEVOTHYROXINE SODIUM 125 MCG TABLET PO SCH (12:01)
[2020-02-10] MEDS: PIPERACILLIN/TAZOBACTAM 3.375 GM in DEXTROSE 5% 100 ML IV SCH ×2 (12:28→19:33)
[2020-02-10] MEDS ORDERED: NovoLIN-N (NPH) PER UNIT CHARGE SQ ONE (12:30)
[2020-02-10] MEDS: INSULIN GLARGINE SOLOSTAR 100 UNITS/ML 3 ML PEN SC SCH (12:33)
[2020-02-10] MEDS: CALCIUM CARBONATE 1250MG TAB PO SCH ×2 (13:39→22:11)
[2020-02-10 14:24] LABS: Appearance Urine Clear (Clear); Bacteria Urine Automated Negative (Negative); Bilirubin Urine Negative (Negative); Blood Urine Trace (Negative); Color Urine Yellow; Epithelial Cell Urine Auto >30 /lpf (0-5); Glucose Urine UA 1+ (Negative); Ketones Urine Negative (Negative); Leukocyte Esterase Urine Trace (Negative); Nitrite Urine Negative (Negative); RBC Urine Automated 0-4 /hpf (0-4); Specific Gravity Urine 1.022 (1.000-1.030); Urobilinogen Urine Negative (Negative); pH Urine 7.5 (4.5-7.5)
[2020-02-10 14:40] LABS: Protein Urine Trace (Negative); Sulfosalicylic Acid Urine Positive (Negative)
--- NOTE | 2020-02-10 14:44 | Pharmacy Report ---
Pharmacy Glycemic Short Note 2 - Date of Service February 10, 2020 - Glycemic Short BSG Results (Last 24 hours): 02/10/20 02/10/20 06:42 11:53 Glucose 191 H POC Glucose 246 H OUTPATIENT ANTIDIABETIC REGIMEN: From most recent visit, December 2019 * NovoLog insulin pump * Total basal dose ~ 20 units/day * CHO ratio: //8 with BF/lunch/dinner respectively * CF = 40 * Total daily dose 50 units HbA1c: 8.3% (12/24/19) ASSESSMENT: * TR is a 54 year old type 1 diabetic well known to the pharmacy glycemic service * Patient presented from her snf with acute on chronic respiratory failure * Confirmed with RN that insulin pump will be removed - will initiate SC basal/bolus * Dexamethasone 6 mg IV x 1 given in ED followed by Solu-medrol 20 mg IV BID * Ordered 0.2 unit/kg dose (12 units) of NPH x 1 * Will start with Lantus 19 units based on previous admission data and pump settings * Ordered broad spectrum antibiotics with Zosyn and Levaquin * Price thickened regular diet ordered PLAN FOR INPATIENT GLYCEMIC CONTROL: * Hold outpatient oral diabetes medications * Basal insulin * Lantus 19 units SC x 1 * NPH 12 units SC x 1 to cover IV dexamethasone * Bolus insulin * NovoLog per scale ACHS or Q6hrs while NPO * Goal Range: Low 120 mg/dL - High 160 mg/dL * Correction Factor: 20 mg/dL/unit * Nutritional / Prandial insulin per carb ratio of 1 unit per 8 grams CHO consumed
[2020-02-10] MEDS: INSULIN ASPART 100 UNITS/ML 3 ML PEN SC SCH ×2 (17:21→22:12)
[2020-02-10] MEDS: ACETYLCYSTEINE 20% INHAL SOLN 4ML ***DISPENSED BY RESP. INH SCH (19:50)
--- NOTE | 2020-02-10 21:23 | Electrocardiogram Report ---
Test Reason : Blood Pressure : / mmHG Vent. Rate : 089 BPM Atrial Rate : 089 BPM P-R Int : 138 ms QRS Dur : 076 ms QT Int : 354 ms P-R-T Axes : 046 054 029 degrees QTc Int : 430 ms Poor data quality, interpretation may be adversely affected Normal sinus rhythm Left atrial enlargement Cannot rule out Anterior infarct , age undetermined Abnormal ECG When compared with ECG of 04-JAN-2020 18:59, Vent. rate has increased BY 34 BPM Confirmed by Sherif Aguila ([id number]) on 02/10/2020 9:23:18 PM Referred By: REFERRED SELF Confirmed By:Sherif Aguila
[2020-02-10] MEDS: ATORVASTATIN 10 MG TAB PO SCH (22:11)
[2020-02-10] MEDS: MONTELUKAST SODIUM 10 MG TABLET PO SCH (22:11)
[2020-02-10] MEDS: HEPARIN SOD 5,000 UNIT/0.5 ML VIAL SQ SCH (22:11)
[2020-02-11] MEDS: INSULIN ASPART 100 UNITS/ML 3 ML PEN SC SCH ×6 (00:01→20:23)
[2020-02-11] MEDS: PIPERACILLIN/TAZOBACTAM 3.375 GM in DEXTROSE 5% 100 ML IV SCH (03:26)
[2020-02-11] MEDS: LEVOTHYROXINE SODIUM 125 MCG TABLET PO SCH (05:26)
[2020-02-11 05:56] LABS: Hematocrit (blood only) 29.1 % (37-47); Hemoglobin 9.3 g/dL (12.0-16.0); Mean Corpuscular Volume 103.2 fL (80-100); Platelet Count 223 K/uL (130-400); RDW Coefficient of Variation 14.7 % (11.5-14.5); RDW Standard Deviation 55.2 fL (36.4-46.3); Red Blood Count 2.82 M/uL (4.2-5.4); White Blood Count 13.69 K/uL (4.8-10.8)
[2020-02-11 06:31] LABS: BUN Creatinine Ratio 17.9 (10-20); Calcium 8.2 mg/dl (8.5-10.1); Creatinine Clr Calc Pharmacy 47.3 ml/min; Est GFR (Non-African American) 60.4; Magnesium 2.3 mg/dl (1.8-2.4); Potassium 4.3 mmol/L (3.5-5.1)
[2020-02-11] MEDS: ALBUTEROL 0.083% NEBU SOLN 3 ML VIAL INH SCH (08:36)
[2020-02-11] MEDS: ACETYLCYSTEINE 20% INHAL SOLN 4ML ***DISPENSED BY RESP. INH SCH ×2 (08:37→19:49)
[2020-02-11] MEDS: SODIUM CHLORIDE 0.9% 1000ML 1,000 ML IV SCH (09:02)
[2020-02-11] MEDS: FLUTICASONE/VILANTEROL 100/25MCG 14 PUFFS/INHALER INH SCH (09:04)
[2020-02-11] MEDS: INSULIN GLARGINE SOLOSTAR 100 UNITS/ML 3 ML PEN SC SCH (09:05)
[2020-02-11] MEDS: HEPARIN SOD 5,000 UNIT/0.5 ML VIAL SQ SCH ×2 (09:06→21:16)
[2020-02-11] MEDS: CHOLECALCIFEROL 1,000 UNITS 25 MCG TAB PO SCH (09:06)
[2020-02-11] MEDS: methylPREDNISolone 20 MG in SYRINGE 0 ML IV SCH (09:07)
[2020-02-11] MEDS: ADVANCED PROBIOTIC 1250 MG CAPSULE PO SCH (09:07)
[2020-02-11] MEDS: CITALOPRAM 40 MG TAB PO SCH (09:07)
[2020-02-11] MEDS: PANTOprazole 40 MG TAB PO SCH (09:07)
[2020-02-11] MEDS: CEROVITE ADV FORMULA TAB PO SCH (09:07)
[2020-02-11] MEDS: CALCIUM CARBONATE 1250MG TAB PO SCH ×3 (09:07→20:30)
[2020-02-11] MEDS: ASPIRIN 81 MG ECTAB PO SCH (09:07)
[2020-02-11] MEDS ORDERED: MEROPENEM CONSULT ACITVE PRN (11:27)
[2020-02-11] MEDS ORDERED: NovoLIN-N (NPH) PER UNIT CHARGE SQ ONE (12:00)
--- NOTE | 2020-02-11 12:04 | Pharmacy Report ---
Pharmacy Glycemic Short Note 2 - Date of Service February 11, 2020 - Glycemic Short BSG Results (Last 24 hours): 02/10/20 02/10/20 02/10/20 11:53 16:45 21:16 Glucose POC Glucose 246 H 379 H* 210 H 02/10/20 02/11/20 02/11/20 23:53 03:28 05:23 Glucose 147 H POC Glucose 251 H 193 H 02/11/20 02/11/20 07:33 11:15 Glucose POC Glucose 111 H 196 H OUTPATIENT ANTIDIABETIC REGIMEN: From most recent visit, December 2019 * NovoLog insulin pump * Total basal dose ~ 20 units/day * CHO ratio: with BF/lunch/dinner respectively * CF = 40 * Total daily dose 50 units HbA1c: 8.3% (12/24/19) ASSESSMENT: 02/11/20 * Pt has received 55 units of insulin over the past 24hrs * 19 units of basal with Lantus * 24 units of bolus with NovoLog * 12 units of NPH for steroid induced hyperglycemia * Pt continues on SOlumedrol 20mg IV Q24hrs --> will continue with NPH daily to cover once daily steroids. This will be added to her baseline regimen * Titrate based on BSG trends and steroid dosing 02/10/20 * TR is a 54 year old type 1 diabetic well known to the pharmacy glycemic service * [facility] with acute on chronic respiratory failure * Confirmed with RN that insulin pump will be removed - will initiate SC basal/bolus * Dexamethasone 6 mg IV x 1 given in ED followed by Solu-medrol 20 mg IV BID * Ordered 0.2 unit/kg dose (12 units) of NPH x 1 * Will start with Lantus 19 units based on previous admission data and pump settings * Ordered broad spectrum antibiotics with Zosyn and Levaquin * [employer] thickened regular diet ordered PLAN FOR INPATIENT GLYCEMIC CONTROL: * Hold outpatient oral diabetes medications * Basal insulin * Lantus 19 units SC daily in AM * NPH 10 units SC daily to cover once daily solumedrol * Bolus insulin * NovoLog per scale ACHS or Q6hrs while NPO * Goal Range: Low 120 mg/dL - High 160 mg/dL * Correction Factor: 20 mg/dL/unit * Nutritional / Prandial insulin per carb ratio of 1 unit per 8 grams CHO consumed
[2020-02-11] MEDS: MEROPENEM 500 MG in SYRINGE 0 ML IV SCH ×2 (12:32→20:40)
[2020-02-11] MEDS ORDERED: ALBUTEROL 0.083% NEBU SOLN 3 ML VIAL INH PRN (17:16)
--- NOTE | 2020-02-11 19:26 | Hospitalist Progress Note ---
Date of Service February 11, 2020 Assessment & Plan (1) Acute and chronic respiratory failure with hypoxia: Patient with chronic hypoxic resp failure on home O2, 4 liters. Has metal trach and follows with HILARIO Chavez, [facility]. Acute component 2nd to aspiration pneumonia and COPD exacerbation. IMPROVED TODAY. Cont O2 support, IV antibiotics, IV steroids, etc. (2) Sepsis: 2nd to pneumonia, likely aspiration. h/o same on numerous occurrences. BPs have stabilized/normalized. Evidence of SOM/sepsis-associated ATN. Blood cx's thus far negative. Cont IV antibiotics and supportive care. (3) Aspiration pneumonia: History of multiple episodes of such in the past. Prior trach aspirates have grown ESBL e.coli - sensitive to pip/tazo, carbapenems, etc. Pharmacy advises changing zosyn to meropenem. Cont levaquin IV for atypical coverage and double coverage of other potential gram negatives. Patient is well known to our speech department. She is a known aspirator. PEG tube has been deferred in the past because Valorie gets much abner from eating her favorite foods, etc. Marcell[place] thick liquids. Minced/moist diet. (4) SOM (acute kidney injury): Likely sepsis-associated ATN. RESOLVED. Stop IVF. (5) Uncontrolled type 1 diabetes mellitus: Last HBA1C in 12/2019 was >7%. She uses insulin pump at her retirement. Our pharmacy glycemic team knows Valorie well. Appreciate pharmacy glycemic consult. Cont basal/bolus SC regimen and NPH. (6) Acute metabolic encephalopathy: 2nd to sepsis. Resolved. MS back to baseline today. (7) Hypothyroidism: All TSH levels in the last 2 years have showed suppressed levels. FT4 levels have been normal. [id number] consider reducing her dose of synthroid to 112mcg daily. (8) GERD (gastroesophageal reflux disease): Continue PPI. (9) Seizure disorder: Not on meds for such. I reviewed the paper chart from the retirement including med rec - she is not on seizure meds. Monitor. (10) Dementia: Noted (11) Chronic obstructive pulmonary disease: With exacerbation. Continue mucomyst nebs BID for clearance of secretions. Continue bronchodilators - change to duonebs and make QID. Med rec from retirement paper chart reviewed - Valorie IS ON 10mg of prednisone DAILY / CHRONICALLY. Cont IV solumedrol for reactive bronchitis/COPD flare. (12) Down syndrome: With resulting intellectual disability. Now with memory loss/dementia by report. Resides in local retirement -- the "[facility]" (13) DVT prophylaxis: Heparin 5000 BID halfway nurse brought her records and showed me the pt's POLST form. This indicates DNR. Left message for Valorie's mother, Mrs Muñoz, evening of 02/10/20. Spoke directly to Valorie's mother tonight - update given - she agrees Valorie is more her usual self today. Admission and Anticipated Discharge Date Admission Date: February 10, 2020 Subjective Valorie was feeling better today. She was awake, alert, smiling, giggling, and watching cartoons on TV. She said multiple times "aggie-dokey!" She was coughing throughout the visit. Tele overnight wnl. Staff report good appetite. Pt had coloring books in room - was working on those in addition to watching TV. Review of Systems Review of Systems: denied chest pain, abd pain, shortness of breath, nausea Physical Exam Constitutional: + altered mental status (Baseline); no acute distress Down's dysmorphic features ENMT: macroglossia; MMM Neck: metal trach in place, clean Respiratory: no respiratory distress Auscultation: + crackles (B/l bases) and + wheezes Cardiovascular: Rate/Rhythm: regular rate and regular rhythm Heart Sounds: normal S1 and normal S2; no murmur Vessels: posterior tibial pulses present and dorsalis pedis pulses present; no JVD Extremities: no edema Gastrointestinal (Abdomen): normal bowel sounds, soft, nontender, no hepatosplenomegaly Psychiatric: Orientation: alert Results & Data Results & Data ([facility]) Vital Signs (Past 12 Hours) Vital Signs Temp Pulse Pulse Resp BP BP Pulse Ox 02/11/20 19:19 36.8 C 68 18 103/69 95 02/11/20 15:47 60 02/11/20 12:10 36.5 C 59 L 17 145/75 H 98 02/11/20 08:37 54 L 18 98 02/11/20 08:14 36.7 C 55 L 17 123/78 90 Laboratory Results Laboratory Results - last 24 hr 02/10/20 02/10/20 02/11/20 21:16 23:53 03:28 WBC RBC Hgb Hct MCV MCH MCHC RDW Std Deviation RDW Coeff of Jackie Plt Count MPV Sodium Potassium Chloride Carbon Dioxide Anion Gap BUN Creatinine Est Cr Clr Drug Dosing Est GFR ( Amer) Est GFR (Non-Af Amer) BUN/Creatinine Ratio Glucose POC Glucose 210 H 251 H 193 H Calcium Magnesium 02/11/20 02/11/20 02/11/20 05:23 05:23 07:33 WBC 13.69 H D RBC 2.82 L Hgb 9.3 L Hct 29.1 L MCV 103.2 H MCH 33.0 MCHC 32.0 RDW Std Deviation 55.2 H RDW Coeff of Jackie 14.7 H Plt Count 223 MPV 10.0 Sodium 140 Potassium 4.3 Chloride 111 H Carbon Dioxide 28 Anion Gap 1.0 L BUN 19 H Creatinine 1.04 Est Cr Clr Drug Dosing 47.3 Est GFR ( Amer) 70.0 Est GFR (Non-Af Amer) 60.4 BUN/Creatinine Ratio 17.9 Glucose 147 H POC Glucose 111 H Calcium 8.2 L Magnesium 2.3 02/11/20 02/11/20 11:15 16:45 WBC RBC Hgb Hct MCV MCH MCHC RDW Std Deviation RDW Coeff of Jackie Plt Count MPV Sodium Potassium Chloride Carbon Dioxide Anion Gap BUN Creatinine Est Cr Clr Drug Dosing Est GFR ( Amer) Est GFR (Non-Af Amer) BUN/Creatinine Ratio Glucose POC Glucose 196 H 249 H Calcium Magnesium blood cultures negative to date PG Care Time/CCT Total # of Minutes Spent Total Time Spent with Patient: Total time spent is greater than 50% in coordination of care (as documented) at patient's floor/unit and/or counseling patient: Coding Level of Care Code 76275 Subseq Hosp Care Lvl 3 Diagnoses Acute and chronic respiratory failure with hypoxia J96.21 Sepsis A41.9 Aspiration pneumonia J69.0 Aspiration pneumonia type: unspecified Laterality: unspecified laterality Lung location: unspecified part of lung SOM (acute kidney injury) N17.9 Uncontrolled type 1 diabetes mellitus E10.65 Acute metabolic encephalopathy G93.41 Hypothyroidism E03.9 Hypothyroidism type: unspecified GERD (gastroesophageal reflux disease) K21.9 Esophagitis presence: esophagitis presence not specified Seizure disorder G40.909 Dementia F03.90 Dementia behavioral disturbance: without behavioral disturbance Dementia type: unspecified type Chronic obstructive pulmonary disease J44.9 COPD type: unspecified COPD Down syndrome Q90.9 DVT prophylaxis Z29.9 (1) Dementia Dementia behavioral disturbance: without behavioral disturbance Dementia type: unspecified type Qualified Code(s): F03.90 - Unspecified dementia without behavioral disturbance (2) Hypothyroidism Hypothyroidism type: unspecified Qualified Code(s): E03.9 - Hypothyroidism, unspecified (3) Aspiration pneumonia Aspiration pneumonia type: unspecified Laterality: unspecified laterality Lung location: unspecified part of lung Qualified Code(s): J69.0 - Pneumonitis due to inhalation of food and vomit (4) Chronic obstructive pulmonary disease COPD type: unspecified COPD Qualified Code(s): J44.9 - Chronic obstructive pulmonary disease, unspecified (5) GERD (gastroesophageal reflux disease) Esophagitis presence: esophagitis presence not specified Qualified Code(s): K21.9 - Gastro-esophageal reflux disease without esophagitis
[2020-02-11] MEDS: ALBUT/IPRATROP 3MG/0.5MG NEB 3 ML VIAL NEB SCH (19:49)
[2020-02-11] MEDS: ATORVASTATIN 10 MG TAB PO SCH (20:30)
[2020-02-11] MEDS: MONTELUKAST SODIUM 10 MG TABLET PO SCH (20:31)
[2020-02-11] MEDS: HEPARIN 100 UNIT/ML 5ML FLUSH FLUSH PRN (20:48)
[2020-02-12] MEDS: MEROPENEM 500 MG in SYRINGE 0 ML IV SCH ×3 (04:30→19:59)
[2020-02-12] MEDS: LEVOTHYROXINE SODIUM 125 MCG TABLET PO SCH (06:12)
[2020-02-12] MEDS: HEPARIN SOD 5,000 UNIT/0.5 ML VIAL SQ SCH ×3 (06:12→19:55)
[2020-02-12] MEDS: ALBUT/IPRATROP 3MG/0.5MG NEB 3 ML VIAL NEB SCH ×4 (07:19→19:06)
[2020-02-12] MEDS: ACETYLCYSTEINE 20% INHAL SOLN 4ML ***DISPENSED BY RESP. INH SCH ×2 (07:19→19:06)
[2020-02-12] MEDS: methylPREDNISolone 20 MG in SYRINGE 0 ML IV SCH (07:51)
[2020-02-12] MEDS: CHOLECALCIFEROL 1,000 UNITS 25 MCG TAB PO SCH (07:51)
[2020-02-12] MEDS: CITALOPRAM 40 MG TAB PO SCH (07:51)
[2020-02-12] MEDS: PANTOprazole 40 MG TAB PO SCH (07:51)
[2020-02-12] MEDS: FLUTICASONE/VILANTEROL 100/25MCG 14 PUFFS/INHALER INH SCH (07:52)
[2020-02-12] MEDS: ADVANCED PROBIOTIC 1250 MG CAPSULE PO SCH (07:52)
[2020-02-12] MEDS: CEROVITE ADV FORMULA TAB PO SCH (07:52)
[2020-02-12] MEDS: CALCIUM CARBONATE 1250MG TAB PO SCH ×3 (07:53→19:55)
[2020-02-12] MEDS: INSULIN GLARGINE SOLOSTAR 100 UNITS/ML 3 ML PEN SC SCH (08:30)
[2020-02-12] MEDS: INSULIN ASPART 100 UNITS/ML 3 ML PEN SC SCH ×4 (08:30→23:12)
[2020-02-12] MEDS: levoFLOXacin/D5W 750 MG/150 ML BAG IV SCH (08:31)
[2020-02-12] MEDS ORDERED: INSULIN HUMAN NPH SC SCH (09:00)
[2020-02-12 10:09] LABS: Hemoglobin 9.7 g/dL (12.0-16.0); Mean Corpuscular Hemoglobin 32.7 pg (25-34); Mean Corpuscular Hgb Conc 31.3 g/dL (32-36); Mean Corpuscular Volume 104.4 fL (80-100); Mean Platelet Volume 9.6 fL (7.4-10.4); Platelet Count 229 K/uL (130-400); RDW Coefficient of Variation 14.9 % (11.5-14.5); RDW Standard Deviation 56.9 fL (36.4-46.3); Red Blood Count 2.97 M/uL (4.2-5.4); White Blood Count 8.87 K/uL (4.8-10.8)
[2020-02-12] MEDS: HEPARIN 100 UNIT/ML 5ML FLUSH FLUSH PRN (10:09)
[2020-02-12 10:31] LABS: BUN Creatinine Ratio 17.5 (10-20); Calcium 8.4 mg/dl (8.5-10.1); Creatinine Clr Calc Pharmacy 43.5 ml/min; Est GFR (African American) 63.4; Est GFR (Non-African American) 54.7; Potassium 4.1 mmol/L (3.5-5.1)
--- NOTE | 2020-02-12 11:46 | Pharmacy Report ---
Pharmacy Glycemic Short Note 2 - Date of Service February 12, 2020 - Glycemic Short BSG Results (Last 24 hours): 02/11/20 02/11/20 02/12/20 16:45 20:18 07:33 Glucose POC Glucose 249 H 184 H 166 H 02/12/20 02/12/20 09:52 11:33 Glucose 249 H POC Glucose 219 H OUTPATIENT ANTIDIABETIC REGIMEN: From most recent visit, December 2019 * NovoLog insulin pump * Total basal dose ~ 20 units/day * CHO ratio: with BF/lunch/dinner respectively * CF = 40 * Total daily dose 50 units HbA1c: 8.3% (12/24/19) ASSESSMENT: 02/12/20: * Pt has received 58 units of insulin over the past 24hrs * 19 units of basal with Lantus * 29 units of bolus with NovoLog * 10 units of NPH for steroid induced hyperglycemia * Pt continues on Solumedrol 20mg IV Q24hrs --> will continue with NPH daily to cover once daily steroids. This will be added to her baseline regimen. 10 units given yesterday but BSGs still elevated. Will increase to 12 units today and also tighten CR on NovoLog. * No changes needed to basal insulin since AM fasting is in goal range. Pt with very brittle diabetes - goal is to maintain BSGs in the 120-200 mg/dl range. * Titrate based on BSG trends and steroid dosing 02/11/20 * Pt has received 55 units of insulin over the past 24hrs * 19 units of basal with Lantus * 24 units of bolus with NovoLog * 12 units of NPH for steroid induced hyperglycemia * Pt continues on SOlumedrol 20mg IV Q24hrs --> will continue with NPH daily to cover once daily steroids. This will be added to her baseline regimen * Titrate based on BSG trends and steroid dosing 02/10/20 * TR is a 54 year old type 1 diabetic well known to the pharmacy glycemic service * Patient presented from her half-way with acute on chronic respiratory failure * Confirmed with RN that insulin pump will be removed - will initiate SC basal/bolus * Dexamethasone 6 mg IV x 1 given in ED followed by Solu-medrol 20 mg IV BID * Ordered 0.2 unit/kg dose (12 units) of NPH x 1 * Will start with Lantus 19 units based on previous admission data and pump settings * Ordered broad spectrum antibiotics with Zosyn and Levaquin * [place] thickened regular diet ordered PLAN FOR INPATIENT GLYCEMIC CONTROL: * Hold outpatient oral diabetes medications * Basal insulin * Lantus 19 units SC daily in AM * increase NPH from 10 to 12 units SC daily to cover once daily solumedrol * Bolus insulin: tighten CR from 8 to 7 * NovoLog per scale ACHS or Q6hrs while NPO * Goal Range: Low 120 mg/dL - High 160 mg/dL * Correction Factor: 20 mg/dL/unit * Nutritional / Prandial insulin per carb ratio of 1 unit per 7 grams CHO consumed
--- NOTE | 2020-02-12 16:27 | Hospitalist Progress Note ---
Date of Service February 12, 2020 Assessment & Plan (1) Acute and chronic respiratory failure with hypoxia: Patient with chronic hypoxic resp failure on home O2, 4 liters. Has metal trach and follows with HILARIO Chavez, [facility] [place] [facility] pulmonary. Acute component 2nd to aspiration pneumonia and COPD exacerbation. clinically resolved, on 4L, no distress Continue IV antibiotics, IV steroids (2) Sepsis: 2nd to pneumonia, likely aspiration. h/o same on numerous occurrences. BPs have stabilized/normalized. Evidence of SOM/sepsis-associated ATN. Blood cx's thus far negative. Cont IV antibiotics for weekend, transition to PO on discharge, will need 7 days total (3) Aspiration pneumonia: History of multiple episodes of such in the past. Prior trach aspirates have grown ESBL e.coli - sensitive to pip/tazo, carbapenems, etc. Pharmacy advises changing zosyn to meropenem. Cont levaquin IV for atypical coverage and double coverage of other potential gram negatives. continue IV antibiotics over the weekend and re-assess Patient is well known to our speech department. She is a known aspirator. PEG tube has been deferred in the past because Valorie gets much abner from eating h er favorite foods, etc. [place] thick liquids. Minced/moist diet. (4) SOM (acute kidney injury): Likely sepsis-associated ATN. RESOLVED. Stop IVF. (5) Uncontrolled type 1 diabetes mellitus: Last HBA1C in 12/2019 was >7%. She uses insulin pump at her snf. Our pharmacy glycemic team knows Valorie well. Appreciate pharmacy glycemic consult. Cont basal/bolus SC regimen and NPH monitor for hypoglycemia (6) Acute metabolic encephalopathy: 2nd to sepsis. Resolved. MS back to baseline 24 hours after admission (7) Hypothyroidism: All TSH levels in the last 2 years have showed suppressed levels. FT4 levels have been normal. Boyp-drx-hpio consider reducing her dose of synthroid to 112mcg daily. (8) GERD (gastroesophageal reflux disease): Continue PPI. (9) Seizure disorder: Not on meds for such. I reviewed the paper chart from the snf including med rec - she is not on seizure meds. Monitor. (10) Dementia: Noted (11) Chronic obstructive pulmonary disease: With exacerbation. Continue mucomyst nebs BID for clearance of secretions. Continue bronchodilators - change to duonebs and make QID. Med rec from snf paper chart reviewed - Valorie IS ON 10mg of prednisone DAILY / CHRONICALLY. Cont IV solumedrol for reactive bronchitis/COPD flare. (12) Down syndrome: With resulting intellectual disability. Now with memory loss/dementia by report. Resides in local snf -- the "[facility]" (13) DVT prophylaxis: Heparin 5000 BID [facility] nurse brought her records and showed me the pt's POLST form. This indicates DNR. Dr. Sage updated patient's mother last night, will call tomorrow Admission and Anticipated Discharge Date Admission Date: February 10, 2020 Subjective patient doing well, eating lunch, she says that it is "delicious" breathing comfortably, no cough, no fever/chills, no abdominal pain, no nausea, no diarrhea reviewed chart, reviewed labs Review of Systems Review of Systems: All systems reviewed & are unremarkable except as noted in Subjective Physical Exam Constitutional: well developed (down syndrome), well nourished and comfortable; no acute distress Neck: trachea midline and + tracheostomy present Respiratory: normal respiratory effort; no respiratory distress Auscultation: + rhonchi; no crackles, no rales and no wheezes Cardiovascular: RRR, no murmur, no edema Gastrointestinal (Abdomen): normal bowel sounds, soft, nontender, no hepatosplenomegaly Musculoskeletal: no cyanosis or clubbing, extremities motor strength 5/5 Skin: no rashes, warm and dry Neurologic: patellar DTR's 2+ bilat, sensation intact and PERRL, EOMI, accommodation nl, no face palsy, no dysarthria Psychiatric: A+Ox3, euthymic affect Lymphatic: no cervical or axillary lymphadenopathy Results & Data Results & Data ([facility]) Vital Signs (Past 12 Hours) Vital Signs Temp Pulse Pulse Resp BP Pulse Ox 02/12/20 15:53 61 20 96 02/12/20 15:12 37.0 C 58 L 16 104/64 97 02/12/20 15:00 58 L 02/12/20 11:39 59 L 20 98 02/12/20 11:34 37.3 C 55 L 18 131/62 99 02/12/20 08:00 54 L 02/12/20 07:33 36.9 C 54 L 18 117/76 96 02/12/20 07:22 55 L 18 98 Laboratory Results Laboratory Results - last 24 hr 02/11/20 02/11/20 02/12/20 16:45 20:18 07:33 WBC RBC Hgb Hct MCV MCH MCHC RDW Std Deviation RDW Coeff of Jackie Plt Count MPV Sodium Potassium Chloride Carbon Dioxide Anion Gap BUN Creatinine Est Cr Clr Drug Dosing Est GFR ( Amer) Est GFR (Non-Af Amer) BUN/Creatinine Ratio Glucose POC Glucose 249 H 184 H 166 H Calcium 02/12/20 02/12/20 02/12/20 09:52 09:52 11:33 WBC 8.87 RBC 2.97 L Hgb 9.7 L Hct 31.0 L MCV 104.4 H MCH 32.7 MCHC 31.3 L RDW Std Deviation 56.9 H RDW Coeff of Jackie 14.9 H Plt Count 229 MPV 9.6 Sodium 140 Potassium 4.1 Chloride 108 H Carbon Dioxide 30 Anion Gap 2.0 L BUN 20 H Creatinine 1.13 Est Cr Clr Drug Dosing 43.5 Est GFR ( Amer) 63.4 Est GFR (Non-Af Amer) 54.7 BUN/Creatinine Ratio 17.5 Glucose 249 H POC Glucose 219 H Calcium 8.4 L 02/12/20 16:11 WBC RBC Hgb Hct MCV MCH MCHC RDW Std Deviation RDW Coeff of Jackie Plt Count MPV Sodium Potassium Chloride Carbon Dioxide Anion Gap BUN Creatinine Est Cr Clr Drug Dosing Est GFR ( Amer) Est GFR (Non-Af Amer) BUN/Creatinine Ratio Glucose POC Glucose 226 H Calcium Medications Administered Current Inpatient Medications Acetaminophen (Acetaminophen 325 Mg Tab) 650 mg PO Q4H PRN PRN Reason: Pain or Fever Stop: 03/11/20 10:44 Acetylcysteine (Acetylcysteine 20% Inhal Soln 4ml Dispensed By Resp.) 4 ml INH BID [facility]ON[facility] Stop: 03/11/20 20:59 Last Admin: 02/12/20 07:19 Dose: 4 ml Documented by: Albuterol (Albuterol 0.083% Nebu Soln 3 Ml Vial) 2.5 mg INH Q4 PRN PRN Reason: chest congestion Stop: 03/11/20 10:44 Albuterol (Albuterol 0.083% Nebu Soln 3 Ml Vial) 2.5 mg INH Q2H PRN PRN Reason: cough/wheeze/dyspnea Stop: 03/12/20 17:15 Albuterol (Albut/Ipratrop 3mg/0.5mg Neb 3 Ml Vial) 3 ml NEB QIDR [facility] Stop: 03/12/20 18:59 Last Admin: 02/12/20 15:51 Dose: 3 ml Documented by: Aspirin (Aspirin 81 Mg Ectab) 81 mg PO Q2D [facility] Stop: 03/12/20 08:59 Last Admin: 02/11/20 09:07 Dose: 81 mg Documented by: Atorvastatin Calcium (Atorvastatin 10 Mg Tab) 10 mg PO HS [facility] Stop: 03/11/20 20:59 Last Admin: 02/11/20 20:30 Dose: 10 mg Documented by: Calcium Carbonate (Calcium Carbonate 1250mg Tab) 1,250 mg PO TID [facility] Stop: 03/11/20 13:59 Last Admin: 02/12/20 14:24 Dose: 1,250 mg Documented by: Citalopram Hydrobromide (Citalopram 40 Mg Tab) 40 mg PO QAM [facility] Stop: 03/11/20 10:59 Last Admin: 02/12/20 07:51 Dose: 40 mg Documented by: Clotrimazole (Clotrimazole 1% Cr 15 Gm Tube) 1 appln TOP TID PRN PRN Reason: .RASH AROUND TRACH Stop: 03/11/20 10:44 Dextrose (Dextrose 50% 50 Ml Syringe) 25 - 50 ml IV UD PRN; Protocol PRN Reason: Hypoglycemia Protocol Stop: 03/11/20 11:14 Fluticasone/Vilanterol (Fluticasone/Vilanterol 100/25mcg 14 Puffs/Inhaler) 1 puffs INH DAILY [facility] Stop: 03/11/20 10:59 Last Admin: 02/12/20 07:52 Dose: 1 puffs Documented by: Glucagon (Glucagon For Inj 1 Mg Vial) 1 mg IM UD PRN; Protocol PRN Reason: Hypoglycemia Protocol Stop: 03/11/20 11:14 Glucose (Glucose 40% Gel 15 Gm Tube) 15 - 30 gm PO UD PRN; Protocol PRN Reason: Hypoglycemia Protocol Stop: 03/11/20 11:14 Glucose (Glucose 10 Tabs/Tube) 4 - 8 tabs PO UD PRN; Protocol PRN Reason: Hypoglycemia Protocol Stop: 12/25/20 11:14 Heparin Sodium (Porcine) (Heparin 100 Unit/Ml 5ml Flush) 5 ml FLUSH PRN PRN PRN Reason: Flush Stop: 03/12/20 00:02 Last Admin: 02/12/20 10:09 Dose: 5 ml Documented by: Heparin Sodium (Porcine) (Heparin Sod 5,000 Unit/0.5 Ml Vial) 5,000 units SQ Q8 [facility] Stop: 03/12/20 21:59 Last Admin: 02/12/20 14:25 Dose: 5,000 units Documented by: Levofloxacin/Dextrose (Levaquin/D5w) 750 mg in 150 mls @ 100 mls/hr IV Q48H [facility]; Protocol Stop: 02/19/20 07:59 Last Infusion: 02/12/20 10:09 Dose: Infused Documented by: Methylprednisolone 20 mg/ (Syringe) 0.32 mls @ 1.5 mls/min IV QAM [facility] Stop: 03/12/20 08:59 Last Admin: 02/12/20 07:51 Dose: 1.5 mls/min Documented by: Meropenem 500 mg/ Syringe 10 mls @ 2 mls/min IV Q8H [facility]; Protocol Stop: 02/18/20 11:59 Last Admin: 02/12/20 12:15 Dose: 2 mls/min Documented by: Insulin Aspart (Insulin Aspart 100 Units/Ml 3 Ml Pen) 0 units SC ACHS [facility] Stop: 03/11/20 11:59 Last Admin: 02/12/20 12:16 Dose: 7 units Documented by: Insulin Glargine (Insulin Glargine Solostar 100 Units/Ml 3 Ml Pen) 19 units SC QAM [facility] Stop: 03/11/20 11:29 Last Admin: 02/12/20 08:30 Dose: 19 units Documented by: Insulin Human NPH (Insulin Human Nph) 12 units SC DAILY [facility]; Protocol Stop: 03/13/20 08:59 Last Admin: 02/12/20 08:30 Dose: 12 units Documented by: Lactobacillus Acidoph/Casei/Rhamnos (Advanced Probiotic 1250 Mg Capsule) 2 cap PO DAILY [facility] Stop: 03/11/20 10:59 Last Admin: 02/12/20 07:52 Dose: 2 cap Documented by: Levothyroxine Sodium ([facility]othyroxine Sodium 125 Mcg Tablet) [facility] Stop: 03/11/20 10:59 Last Admin: 02/12/20 06:12 Dose: 125 mcg Documented by: Miscellaneous ([place] Phos Flur 15 Ml~Order Awaiting Action) 1 ea N/A QS [facility] Stop: 03/11/20 15:59 Last Admin: 02/12/20 16:22 Dose: Not Given Documented by: Miscellaneous (Carbohydrates For Hypoglycemia ) 15 - 30 gm PO UD PRN PRN Reason: Hypoglycemia Treatment Stop: 03/11/20 11:14 Miscellaneous Information (Pharmacy Glycemic Mgmt Consult) 1 ea N/A UD PRN PRN Reason: Consult Stop: 03/11/20 11:03 Miscellaneous Information (Meropenem Consult Acitve) 1 ea N/A UD PRN PRN Reason: Consult Stop: 03/12/20 11:26 Montelukast Sodium (Montelukast Sodium 10 Mg Tablet) 10 mg PO PM [facility] Stop: 03/11/20 20:59 Last Admin: 02/11/20 20:31 Dose: 10 mg Documented by: Multivitamins/Minerals (Cerovite Adv Formula Tab) 1 tab PO QAM [facility] Stop: 03/12/20 08:59 Last Admin: 02/12/20 07:52 Dose: 1 tab Documented by: Ondansetron HCl (Ondansetron Inj 2 Mg/Ml 2 Ml Vial) 4 mg IV Q6H PRN PRN Reason: Nausea Stop: 03/11/20 10:44 Pantoprazole Sodium (Pantoprazole 40 Mg Tab) 40 mg PO QAM [facility] Stop: 03/11/20 10:59 Last Admin: 02/12/20 07:51 Dose: 40 mg Documented by: Vitamin D (Cholecalciferol 1,000 Units 25 Mcg Tab) 4,000 units PO DAILY [facility] Stop: 03/12/20 08:59 Last Admin: 02/12/20 07:51 Dose: 4,000 units Documented by: PG Care Time/CCT Total # of Minutes Spent Total Time Spent with Patient: Total time spent is greater than 50% in coordination of care (as documented) at patient's floor/unit and/or counseling patient: Coding Level of Care Code 79693 Subseq Hosp Care Lvl 2 Diagnoses Acute and chronic respiratory failure with hypoxia J96.21 Sepsis A41.9 Aspiration pneumonia J69.0 Aspiration pneumonia type: unspecified Laterality: unspecified laterality Lung location: unspecified part of lung SOM (acute kidney injury) N17.9 Uncontrolled type 1 diabetes mellitus E10.65 Acute metabolic encephalopathy G93.41 Hypothyroidism E03.9 Hypothyroidism type: unspecified GERD (gastroesophageal reflux disease) K21.9 Esophagitis presence: esophagitis presence not specified Seizure disorder G40.909 Dementia F03.90 Dementia behavioral disturbance: without behavioral disturbance Dementia type: unspecified type Chronic obstructive pulmonary disease J44.9 COPD type: unspecified COPD Down syndrome Q90.9 DVT prophylaxis Z29.9 (1) Dementia Dementia behavioral disturbance: without behavioral disturbance Dementia type: unspecified type Qualified Code(s): F03.90 - Unspecified dementia without behavioral disturbance (2) Hypothyroidism Hypothyroidism type: unspecified Qualified Code(s): E03.9 - Hypothyroidism, unspecified (3) Aspiration pneumonia Aspiration pneumonia type: unspecified Laterality: unspecified laterality Lung location: unspecified part of lung Qualified Code(s): J69.0 - Pneumonitis due to inhalation of food and vomit (4) Chronic obstructive pulmonary disease COPD type: unspecified COPD Qualified Code(s): J44.9 - Chronic obstructive pulmonary disease, unspecified (5) GERD (gastroesophageal reflux disease) Esophagitis presence: esophagitis presence not specified Qualified Code(s): K21.9 - Gastro-esophageal reflux disease without esophagitis
[2020-02-12] MEDS: ACETAMINOPHEN 325 MG TAB PO PRN ×2 (16:39→21:05)
[2020-02-12] MEDS: ATORVASTATIN 10 MG TAB PO SCH (19:55)
[2020-02-12] MEDS: MONTELUKAST SODIUM 10 MG TABLET PO SCH (19:55)
[2020-02-13] MEDS: DOCUSATE SODIUM 100 MG CAP PO SCH ×3 (00:37→21:08)
[2020-02-13] MEDS: MEROPENEM 500 MG in SYRINGE 0 ML IV SCH ×3 (06:11→20:20)
[2020-02-13] MEDS: HEPARIN SOD 5,000 UNIT/0.5 ML VIAL SQ SCH ×3 (06:11→21:07)
[2020-02-13] MEDS: LEVOTHYROXINE SODIUM 125 MCG TABLET PO SCH (06:12)
[2020-02-13] MEDS: ACETYLCYSTEINE 20% INHAL SOLN 4ML ***DISPENSED BY RESP. INH SCH ×2 (07:23→19:32)
[2020-02-13] MEDS: ALBUT/IPRATROP 3MG/0.5MG NEB 3 ML VIAL NEB SCH ×3 (07:23→19:32)
[2020-02-13] MEDS: INSULIN ASPART 100 UNITS/ML 3 ML PEN SC SCH ×4 (08:03→21:09)
[2020-02-13] MEDS: INSULIN HUMAN NPH SC SCH (08:04)
[2020-02-13] MEDS: INSULIN GLARGINE SOLOSTAR 100 UNITS/ML 3 ML PEN SC SCH (08:04)
[2020-02-13] MEDS: FLUTICASONE/VILANTEROL 100/25MCG 14 PUFFS/INHALER INH SCH (08:06)
[2020-02-13] MEDS: CITALOPRAM 40 MG TAB PO SCH (08:07)
[2020-02-13] MEDS: methylPREDNISolone 20 MG in SYRINGE 0 ML IV SCH (08:07)
[2020-02-13] MEDS: PANTOprazole 40 MG TAB PO SCH (08:07)
[2020-02-13] MEDS: CEROVITE ADV FORMULA TAB PO SCH (08:07)
[2020-02-13] MEDS: ASPIRIN 81 MG ECTAB PO SCH (08:07)
[2020-02-13] MEDS: CHOLECALCIFEROL 1,000 UNITS 25 MCG TAB PO SCH (08:08)
[2020-02-13] MEDS: ADVANCED PROBIOTIC 1250 MG CAPSULE PO SCH (08:08)
[2020-02-13] MEDS: CALCIUM CARBONATE 1250MG TAB PO SCH ×3 (09:03→21:08)
--- NOTE | 2020-02-13 11:47 | Hospitalist Progress Note ---
Date of Service February 13, 2020 Assessment & Plan (1) Acute and chronic respiratory failure with hypoxia: Patient with chronic hypoxic resp failure on home O2, 4 liters. Has metal trach and follows with HILARIO Chavez, [facility]. Acute component 2nd to aspiration pneumonia and COPD exacerbation. clinically resolved, on 4L, no distress Continue IV antibiotics, IV solu medrol 20mg IV daily (2) Sepsis: 2nd to pneumonia, likely aspiration. h/o same on numerous occurrences. BPs have stabilized/normalized. Evidence of SOM/sepsis-associated ATN. Blood cx's thus far negative. Cont IV antibiotics for weekend, transition to PO on discharge (3) Aspiration pneumonia: History of multiple episodes of such in the past. Prior trach aspirates have grown ESBL e.coli - sensitive to pip/tazo, ca rbapenems, etc. Pharmacy advises changing zosyn to meropenem. Cont levaquin IV for atypical coverage and double coverage of other potential gram negatives. no growth on blood culture, unfortunately sputum cultures were not obtained continue IV antibiotics over the weekend and re-assess breathing comfortably, no significant cough on exam Patient is well known to our speech department. She is a known aspirator. PEG tube has been deferred in the past because Valorie gets much abner from eating her favorite foods, etc. [place] thick liquids. Minced/moist diet. (4) SOM (acute kidney injury): Likely sepsis-associated ATN. RESOLVED. Stop IVF. (5) Uncontrolled type 1 diabetes mellitus: Last HBA1C in 12/2019 was >7%. She uses insulin pump at her nursing home. Our pharmacy glycemic team knows Valorie well. Appreciate pharmacy glycemic consult. Cont basal/bolus SC regimen and NPH monitor for hypoglycemia, no episodes (6) Acute metabolic encephalopathy: 2nd to sepsis. Resolved. MS back to baseline 24 hours after admission (7) Hypothyroidism: All TSH levels in the last 2 years have showed suppressed levels. FT4 levels have been normal. will reduce her dose of synthroid to 112mcg daily. (8) GERD (gastroesophageal reflux disease): Continue PPI. (9) Seizure disorder: Not on meds for such. reviewed the paper chart from the nursing home including med rec - she is not on seizure meds. Monitor. (10) Dementia: Noted (11) Chronic obstructive pulmonary disease: With exacerbation. Continue mucomyst nebs BID for clearance of secretions. Continue bronchodilators - change to duonebs and make QID. Med rec from nursing home paper chart reviewed - Valorie IS ON 10mg of prednisone DAILY / CHRONICALLY. Cont IV solumedrol for reactive bronchitis/COPD flare. (12) Down syndrome: With resulting intellectual disability. Now with memory loss/dementia by report. Resides in local nursing home -- the "[facility]" (13) DVT prophylaxis: Heparin 5000 BID alf nurse brought her records and showed me the pt's POLST form. This indicates DNR. Admission and Anticipated Discharge Date Admission Date: February 10, 2020 Subjective patient sitting up in bed, comfortable, smiling and laughing when I came into the room eating well, watching cartoons no fever, no dyspnea, minimal cough, lungs clear on exam will downgrade to medical floor continue to keep through the weekend for Meropenem Review of Systems Review of Systems: All systems reviewed & are unremarkable except as noted in Subjective Constitutional: no fever Respiratory: no cough and no dyspnea Cardiovascular: no chest pain and no edema Gastrointestinal: no abdominal pain, no nausea, no vomiting, no constipation and no diarrhea/loose stools Physical Exam Constitutional: well developed (down syndrome), well nourished and comfortable; no acute distress Neck: trachea midline and + tracheostomy present Respiratory: normal respiratory effort; no respiratory distress Auscultation: + rhonchi; no crackles, no rales and no wheezes Cardiovascular: RRR, no murmur, no edema Gastrointestinal (Abdomen): normal bowel sounds, soft, nontender, no hepatosplenomegaly Musculoskeletal: no cyanosis or clubbing, extremities motor strength 5/5 Skin: no rashes, warm and dry Neurologic: patellar DTR's 2+ bilat, sensation intact and PERRL, EOMI, accommodation nl, no face palsy, no dysarthria Psychiatric: A+Ox3, euthymic affect Lymphatic: no cervical or axillary lymphadenopathy Results & Data Results & Data ([facility]) Vital Signs (Past 12 Hours) Vital Signs Temp Pulse Pulse Resp BP BP Pulse Ox 02/13/20 10:38 58 L 20 98 02/13/20 07:58 36.8 C 66 18 123/85 96 02/13/20 07:34 60 02/13/20 07:31 59 L 98 02/13/20 00:44 36.7 C 59 L 18 104/71 98 02/13/20 00:00 56 L Laboratory Results Laboratory Results - last 24 hr 02/12/20 02/12/20 02/13/20 16:11 19:54 07:09 POC Glucose 226 H 108 H 74 02/13/20 11:28 POC Glucose 209 H Medications Administered Current Inpatient Medications Acetaminophen (Acetaminophen 325 Mg Tab) 650 mg PO Q4H PRN PRN Reason: Pain or Fever Stop: 03/11/20 10:44 Last Admin: 02/12/20 21:05 Dose: 650 mg Documented by: Acetylcysteine (Acetylcysteine 20% Inhal Soln 4ml Dispensed By Resp.) 4 ml INH BID LEONOR Stop: 03/11/20 20:59 Last Admin: 02/13/20 07:23 Dose: 4 ml Documented by: Albuterol (Albuterol 0.083% Nebu Soln 3 Ml Vial) 2.5 mg INH Q4 PRN PRN Reason: chest congestion Stop: 03/11/20 10:44 Albuterol (Albuterol 0.083% Nebu Soln 3 Ml Vial) 2.5 mg INH Q2H PRN PRN Reason: cough/wheeze/dyspnea Stop: 03/12/20 17:15 Albuterol (Albut/Ipratrop 3mg/0.5mg Neb 3 Ml Vial) 3 ml NEB QIDR LEONOR Stop: 03/12/20 18:59 Last Admin: 02/13/20 10:37 Dose: 3 ml Documented by: Aspirin (Aspirin 81 Mg Ectab) 81 mg PO Q2D LEONOR Stop: 03/12/20 08:59 Last Admin: 02/13/20 08:07 Dose: 81 mg Documented by: Atorvastatin Calcium (Atorvastatin 10 Mg Tab) 10 mg PO HS LEONOR Stop: 03/11/20 20:59 Last Admin: 02/12/20 19:55 Dose: 10 mg Documented by: Calcium Carbonate (Calcium Carbonate 1250mg Tab) 1,250 mg PO TID LEONOR Stop: 03/11/20 13:59 Last Admin: 02/13/20 09:03 Dose: 1,250 mg Documented by: Citalopram Hydrobromide (Citalopram 40 Mg Tab) 40 mg PO QAM LEONOR Stop: 03/11/20 10:59 Last Admin: 02/13/20 08:07 Dose: 40 mg Documented by: Clotrimazole (Clotrimazole 1% Cr 15 Gm Tube) 1 appln TOP TID PRN PRN Reason: .RASH AROUND TRACH Stop: 03/11/20 10:44 Dextrose (Dextrose 50% 50 Ml Syringe) 25 - 50 ml IV UD PRN; Protocol PRN Reason: Hypoglycemia Protocol Stop: 03/11/20 11:14 Docusate Sodium (Docusate Sodium 100 Mg Cap) 100 mg PO BID LEONOR Stop: 03/13/20 23:54 Last Admin: 02/13/20 08:24 Dose: 100 mg Documented by: Fluticasone/Vilanterol (Fluticasone/Vilanterol 100/25mcg 14 Puffs/Inhaler) 1 puffs INH DAILY LEONOR Stop: 03/11/20 10:59 Last Admin: 02/13/20 08:06 Dose: 1 puffs Documented by: Glucagon (Glucagon For Inj 1 Mg Vial) 1 mg IM UD PRN; Protocol PRN Reason: Hypoglycemia Protocol Stop: 03/11/20 11:14 Glucose (Glucose 40% Gel 15 Gm Tube) 15 - 30 gm PO UD PRN; Protocol PRN Reason: Hypoglycemia Protocol Stop: 03/11/20 11:14 Glucose (Glucose 10 Tabs/Tube) 4 - 8 tabs PO UD PRN; Protocol PRN Reason: Hypoglycemia Protocol Stop: 03/11/20 11:14 Heparin Sodium (Porcine) (Heparin 100 Unit/Ml 5ml Flush) 5 ml FLUSH PRN PRN PRN Reason: Flush Stop: 03/12/20 00:02 Last Admin: 02/12/20 10:09 Dose: 5 ml Documented by: Heparin Sodium (Porcine) (Heparin Sod 5,000 Unit/0.5 Ml Vial) 5,000 units SQ Q8 LEONOR Stop: 03/12/20 21:59 Last Admin: 02/13/20 06:11 Dose: 5,000 units Documented by: Levofloxacin/Dextrose (Levaquin/D5w) 750 mg in 150 mls @ 100 mls/hr IV Q48H LEONOR; Protocol Stop: 02/19/20 07:59 Last Infusion: 02/12/20 10:09 Dose: Infused Documented by: Methylprednisolone 20 mg/ (Syringe) 0.32 mls @ 1.5 mls/min IV QAM LEONOR Stop: 03/12/20 08:59 Last Admin: 02/13/20 08:07 Dose: 1.5 mls/min Documented by: Meropenem 500 mg/ Syringe 10 mls @ 2 mls/min IV Q8H [facility]; Protocol Stop: 02/18/20 11:59 Last Admin: 02/13/20 06:11 Dose: 2 mls/min Documented by: Insulin Aspart (Insulin Aspart 100 Units/Ml 3 Ml Pen) 0 units SC ACHS [facility] Stop: 03/11/20 11:59 Last Admin: 02/13/20 08:03 Dose: 3 units Documented by: Insulin Glargine (Insulin Glargine Solostar 100 Units/Ml 3 Ml Pen) 19 units SC QAM [facility] Stop: 03/11/20 11:29 Last Admin: 02/13/20 08:04 Dose: 19 units Documented by: Insulin Human NPH (Insulin Human Nph) 10 units SC DAILY [facility]; Protocol Stop: 03/14/20 08:59 Last Admin: 02/13/20 08:04 Dose: 10 units Documented by: Lactobacillus Acidoph/Casei/Rhamnos (Advanced Probiotic 1250 Mg Capsule) 2 cap PO DAILY [facility] Stop: 03/11/20 10:59 Last Admin: 02/13/20 08:08 Dose: 2 cap Documented by: Levothyroxine Sodium (Levothyroxine Sodium 125 Mcg Tablet) 125 mcg PO DAILYBB [facility] Stop: 03/11/20 10:59 Last Admin: 02/13/20 06:12 Dose: 125 mcg Documented by: Miscellaneous ([employer]gate Phos Flur 15 Ml~Order Awaiting Action) 1 ea N/A QS [facility] Stop: 03/11/20 15:59 Last Admin: 02/13/20 08:06 Dose: Not Given Documented by: Miscellaneous (Carbohydrates For Hypoglycemia ) 15 - 30 gm PO UD PRN PRN Reason: Hypoglycemia Treatment Stop: 03/11/20 11:14 Miscellaneous Information (Pharmacy Glycemic Mgmt Consult) 1 ea N/A UD PRN PRN Reason: Consult Stop: 03/11/20 11:03 Miscellaneous Information (Meropenem Consult Acitve) 1 ea N/A UD PRN PRN Reason: Consult Stop: 03/12/20 11:26 Montelukast Sodium (Montelukast Sodium 10 Mg Tablet) 10 mg PO PM LEONOR Stop: 03/11/20 20:59 Last Admin: 02/12/20 19:55 Dose: 10 mg Documented by: Multivitamins/Minerals (Cerovite Adv Formula Tab) 1 tab PO QAM LEONOR Stop: 03/12/20 08:59 Last Admin: 02/13/20 08:07 Dose: 1 tab Documented by: Ondansetron HCl (Ondansetron Inj 2 Mg/Ml 2 Ml Vial) 4 mg IV Q6H PRN PRN Reason: Nausea Stop: 03/11/20 10:44 Pantoprazole Sodium (Pantoprazole 40 Mg Tab) 40 mg PO QAM LEONOR Stop: 03/11/20 10:59 Last Admin: 02/13/20 08:07 Dose: 40 mg Documented by: Vitamin D (Cholecalciferol 1,000 Units 25 Mcg Tab) 4,000 units PO DAILY LEONOR Stop: 03/12/20 08:59 Last Admin: 02/13/20 08:08 Dose: 4,000 units Documented by: PG Care Time/CCT Total # of Minutes Spent Total Time Spent with Patient: Total time spent is greater than 50% in coordination of care (as documented) at patient's floor/unit and/or counseling patient: Coding Level of Care Code 05051 Subseq Hosp Care Lvl 2 Diagnoses Acute and chronic respiratory failure with hypoxia J96.21 Sepsis A41.9 Aspiration pneumonia J69.0 Aspiration pneumonia type: unspecified Laterality: unspecified laterality Lung location: unspecified part of lung SOM (acute kidney injury) N17.9 Uncontrolled type 1 diabetes mellitus E10.65 Acute metabolic encephalopathy G93.41 Hypothyroidism E03.9 Hypothyroidism type: unspecified GERD (gastroesophageal reflux disease) K21.9 Esophagitis presence: esophagitis presence not specified Seizure disorder G40.909 Dementia F03.90 Dementia behavioral disturbance: without behavioral disturbance Dementia type: unspecified type Chronic obstructive pulmonary disease J44.9 COPD type: unspecified COPD Down syndrome Q90.9 DVT prophylaxis Z29.9 (1) Dementia Dementia behavioral disturbance: without behavioral disturbance Dementia type: unspecified type Qualified Code(s): F03.90 - Unspecified dementia without behavioral disturbance (2) Hypothyroidism Hypothyroidism type: unspecified Qualified Code(s): E03.9 - Hypothyroidism, unspecified (3) Aspiration pneumonia Aspiration pneumonia type: unspecified Laterality: unspecified laterality Lung location: unspecified part of lung Qualified Code(s): J69.0 - Pneumonitis due to inhalation of food and vomit (4) Chronic obstructive pulmonary disease COPD type: unspecified COPD Qualified Code(s): J44.9 - Chronic obstructive pulmonary disease, unspecified (5) GERD (gastroesophageal reflux disease) Esophagitis presence: esophagitis presence not specified Qualified Code(s): K21.9 - Gastro-esophageal reflux disease without esophagitis
[2020-02-13] MEDS: CARBOHYDRATES FOR HYPOGLYCEMIA PO PRN (17:21)
[2020-02-13] MEDS: MONTELUKAST SODIUM 10 MG TABLET PO SCH (21:08)
[2020-02-13] MEDS: ATORVASTATIN 10 MG TAB PO SCH (21:08)
[2020-02-14] MEDS: MEROPENEM 500 MG in SYRINGE 0 ML IV SCH ×3 (03:25→20:49)
[2020-02-14] MEDS: HEPARIN 100 UNIT/ML 5ML FLUSH FLUSH PRN ×2 (03:25→10:26)
[2020-02-14] MEDS: HEPARIN SOD 5,000 UNIT/0.5 ML VIAL SQ SCH ×3 (06:09→20:52)
[2020-02-14] MEDS: LEVOTHYROXINE SODIUM 112 MCG TABLET PO SCH (06:12)
[2020-02-14] MEDS: ACETYLCYSTEINE 20% INHAL SOLN 4ML ***DISPENSED BY RESP. INH SCH ×2 (07:22→19:21)
[2020-02-14] MEDS: ALBUT/IPRATROP 3MG/0.5MG NEB 3 ML VIAL NEB SCH ×2 (07:22→19:22)
[2020-02-14] MEDS: methylPREDNISolone 20 MG in SYRINGE 0 ML IV SCH (08:07)
[2020-02-14] MEDS: levoFLOXacin/D5W 750 MG/150 ML BAG IV SCH (08:07)
[2020-02-14] MEDS: FLUTICASONE/VILANTEROL 100/25MCG 14 PUFFS/INHALER INH SCH (08:07)
[2020-02-14] MEDS: PANTOprazole 40 MG TAB PO SCH (08:08)
[2020-02-14] MEDS: CITALOPRAM 40 MG TAB PO SCH (08:08)
[2020-02-14] MEDS: CHOLECALCIFEROL 1,000 UNITS 25 MCG TAB PO SCH (08:08)
[2020-02-14] MEDS: CEROVITE ADV FORMULA TAB PO SCH (08:09)
[2020-02-14] MEDS: DOCUSATE SODIUM 100 MG CAP PO SCH ×2 (08:09→22:02)
[2020-02-14] MEDS: CALCIUM CARBONATE 1250MG TAB PO SCH ×3 (08:09→20:49)
[2020-02-14] MEDS: ADVANCED PROBIOTIC 1250 MG CAPSULE PO SCH (08:09)
[2020-02-14] MEDS: INSULIN ASPART 100 UNITS/ML 3 ML PEN SC SCH ×4 (09:26→20:50)
[2020-02-14] MEDS: INSULIN GLARGINE SOLOSTAR 100 UNITS/ML 3 ML PEN SC SCH (09:26)
[2020-02-14] MEDS: INSULIN HUMAN NPH SC SCH (09:27)
--- NOTE | 2020-02-14 12:35 | Hospitalist Progress Note ---
Date of Service February 14, 2020 Assessment & Plan (1) Acute and chronic respiratory failure with hypoxia: Patient with chronic hypoxic resp failure on home O2, 4 liters. Has metal trach and [place] with HILAR[place] [facility] [place] Acute component 2nd to aspiration pneumonia and COPD exacerbation. clinically resolved, on 4L, no distress Continue IV antibiotics, change to Ertapenem change to Prednisone 30mg daily with quick taper (2) Sepsis: 2nd to pneumonia, likely aspiration. h/o same on numerous occurrences. BPs have stabilized/normalized. Evidence of SOM/sepsis-associated ATN. Blood cx's thus far negative. Cont IV antibiotics for weekend, change to Ertapenem will arrange for MTU treatments for several days after discharge, family states that she always has relapse if placed on oral antibiotics last day of treatment would be 02/17, so she would need Ertapenem for 3 days at MTU can take the Levaquin by mouth as the bio-availability would be the same (3) Aspiration pneumonia: History of multiple episodes of such in the past. Prior trach aspirates have grown ESBL e.coli - sensitive to pip/tazo, carbapenems, etc. Pharmacy advises changing zosyn to meropenem. completed several days of meropenem, will change to Ertapenem for convenience of once a day dosing Cont levaquin IV for atypical coverage and double coverage of other potential gram negatives. no growth on blood culture, unfortunately sputum cultures were not obtained continue IV antibiotics over the weekend and set up for MTU treatment for a few days on discharge breathing comfortably, no significant cough on exam Patient is well known to our speech department. She is a known aspirator. PEG tube has been deferred in the past because Valorie gets much abner from eating her favorite foods, etc. [place] thick liquids. Minced/moist diet. (4) SMO (acute kidney injury): Likely sepsis-associated ATN. RESOLVED. Stop IVF. (5) Uncontrolled type 1 diabetes mellitus: Last HBA1C in 12/2019 was >7%. [facility]. Our pharmacy glycemic team knows Valorie well. Appreciate pharmacy glycemic consult. Cont basal/bolus SC regimen and NPH monitor for hypoglycemia, had some episodes over night, now resolved, no symptoms (6) Acute metabolic encephalopathy: 2nd to sepsis. Resolved. MS back to baseline 24 hours after admission (7) Hypothyroidism: All TSH levels in the last 2 years have showed suppressed levels. FT4 levels have been normal. will reduce her dose of synthroid to 112mcg daily. (8) GERD (gastroesophageal reflux disease): Continue PPI. (9) Seizure disorder: Not on meds for such. reviewed the [facility] the [facility] including med rec - she is not on seizure meds. Monitor. (10) Dementia: Noted (11) Chronic obstructive pulmonary disease: With exacerbation. Continue mucomyst nebs BID for clearance of secretions. Continue bronchodilators - change to duonebs and make QID. Med rec from [facility]iary paper chart reviewed - Valorie IS ON 10mg of prednisone DAILY / CHRONICALLY. Cont IV solumedrol for reactive bronchitis/COPD flare. (12) Down syndrome: With resulting intellectual disability. Now with memory loss/dementia by report. Resides in local pen[facility]iary -- the "[facility]" (13) DVT prophylaxis: Heparin 5000 BID half-way nurse brought her records and showed me the pt's POLST form. This indicates DNR. Admission and Anticipated Discharge Date Admission Date: February 10, 2020 Subjective patient is happy, patient is eating well, no respiratory distress discussed with her family at the bedside, they state that whenever she goes on oral antibiotics she is back in the hospital in a week they request to continue IV antibiotics on discharge reviewed prior sputum culture, the ESBL E coli was sensitive to Ertapenem, could do this since it is once a day would need just a few more days, family agrees they could transport her will discuss with CM arrange for MTU treatment patient will be ready to go tomorrow Review of Systems Review of Systems: All systems reviewed & are unremarkable except as noted in Subjective Physical Exam Constitutional: well developed (down syndrome), well nourished and comfortable; no acute distress Neck: trachea midline and + tracheostomy present Respiratory: normal respiratory effort; no respiratory distress Auscultation: + rhonchi; no crackles, no rales and no wheezes Cardiovascular: RRR, no murmur, no edema Gastrointestinal (Abdomen): normal bowel sounds, soft, nontender, no hepatosplenomegaly Musculoskeletal: no cyanosis or clubbing, extremities motor strength 5/5 Skin: no rashes, warm and dry Neurologic: patellar DTR's 2+ bilat, sensation intact and PERRL, EOMI, accommodation nl, no face palsy, no dysarthria Psychiatric: A+Ox3, euthymic affect Lymphatic: no cervical or axillary lymphadenopathy Results & Data Results & Data ([facility]) Vital Signs (Past 12 Hours) Vital Signs Temp Pulse Resp BP Pulse Ox 02/14/20 07:26 74 16 90 02/14/20 07:17 36.9 C 68 18 110/73 92 Laboratory Results Laboratory Results - last 24 hr 02/13/20 02/13/20 02/13/20 17:03 17:05 17:16 POC Glucose 61 L* 61 L* 55 L* 02/13/20 02/13/20 02/13/20 17:18 17:32 17:33 POC Glucose 55 L* 63 L* 71 02/13/20 02/14/20 02/14/20 20:57 07:39 11:34 POC Glucose 267 H 108 H 201 H Medications Administered Current Inpatient Medications Acetaminophen (Acetaminophen 325 Mg Tab) 650 mg PO Q4H PRN PRN Reason: Pain or Fever Stop: 03/11/20 10:44 Last Admin: 02/12/20 21:05 Dose: 650 mg Documented by: Acetylcysteine (Acetylcysteine 20% Inhal Soln 4ml Dispensed By Resp.) 4 ml INH BID LEONOR Stop: 03/11/20 20:59 Last Admin: 02/14/20 07:22 Dose: 4 ml Documented by: Albuterol (Albuterol 0.083% Nebu Soln 3 Ml Vial) 2.5 mg INH Q4 PRN PRN Reason: chest congestion Stop: 03/11/20 10:44 Albuterol (Albuterol 0.083% Nebu Soln 3 Ml Vial) 2.5 mg INH Q2H PRN PRN Reason: cough/wheeze/dyspnea Stop: 03/12/20 17:15 Albuterol (Albut/Ipratrop 3mg/0.5mg Neb 3 Ml Vial) 3 ml NEB BIDR LEONOR Stop: 03/14/20 18:59 Last Admin: 02/14/20 07:22 Dose: 3 ml Documented by: Aspirin (Aspirin 81 Mg Ectab) 81 mg PO Q2D LEONOR Stop: 03/12/20 08:59 Last Admin: 02/13/20 08:07 Dose: 81 mg Documented by: Atorvastatin Calcium (Atorvastatin 10 Mg Tab) 10 mg PO HS LEONOR Stop: 03/11/20 20:59 Last Admin: 02/13/20 21:08 Dose: 10 mg Documented by: Calcium Carbonate (Calcium Carbonate 1250mg Tab) 1,250 mg PO TID LEONOR Stop: 03/11/20 13:59 Last Admin: 02/14/20 08:09 Dose: 1,250 mg Documented by: Citalopram Hydrobromide (Citalopram 40 Mg Tab) 40 mg PO QAM LEONOR Stop: 03/11/20 10:59 Last Admin: 02/14/20 08:08 Dose: 40 mg Documented by: Clotrimazole (Clotrimazole 1% Cr 15 Gm Tube) 1 appln TOP TID PRN PRN Reason: .RASH AROUND TRACH Stop: 03/11/20 10:44 Dextrose (Dextrose 50% 50 Ml Syringe) 25 - 50 ml IV UD PRN; Protocol PRN Reason: Hypoglycemia Protocol Stop: 03/11/20 11:14 Docusate Sodium (Docusate Sodium 100 Mg Cap) 100 mg PO BID LEONOR Stop: 03/13/20 23:54 Last Admin: 02/14/20 08:09 Dose: 100 mg Documented by: Fluticasone/Vilanterol (Fluticasone/Vilanterol 100/25mcg 14 Puffs/Inhaler) 1 puffs INH DAILY LEONOR Stop: 03/11/20 10:59 Last Admin: 02/14/20 08:07 Dose: 1 puffs Documented by: Glucagon (Glucagon For Inj 1 Mg Vial) 1 mg IM UD PRN; Protocol PRN Reason: Hypoglycemia Protocol Stop: 03/11/20 11:14 Glucose (Glucose 40% Gel 15 Gm Tube) 15 - 30 gm PO UD PRN; Protocol PRN Reason: Hypoglycemia Protocol Stop: 03/11/20 11:14 Last Admin: 02/13/20 17:05 Dose: 15 gm Documented by: Glucose (Glucose 10 Tabs/Tube) 4 - 8 tabs PO UD PRN; Protocol PRN Reason: Hypoglycemia Protocol Stop: 03/11/20 11:14 Heparin Sodium (Porcine) (Heparin 100 Unit/Ml 5ml Flush) 5 ml FLUSH PRN PRN PRN Reason: Flush Stop: 03/12/20 00:02 Last Admin: 02/14/20 10:26 Dose: 5 ml Documented by: Heparin Sodium (Porcine) (Heparin Sod 5,000 Unit/0.5 Ml Vial) 5,000 units SQ Q8 LEONOR Stop: 03/12/20 21:59 Last Admin: 02/14/20 06:09 Dose: 5,000 units Documented by: Levofloxacin/Dextrose (Levaquin/D5w) 750 mg in 150 mls @ 100 mls/hr IV Q48H LEONOR; Protocol Stop: 02/19/20 07:59 Last Infusion: 02/14/20 09:45 Dose: Infused Documented by: Methylprednisolone 20 mg/ (Syringe) 0.32 mls @ 1.5 mls/min IV QAM [facility] Stop: 03/12/20 08:59 Last Admin: 02/14/20 08:07 Dose: 1.5 mls/min Documented by: Meropenem 500 mg/ Syringe 10 mls @ 2 mls/min IV Q8H [facility]; Protocol Stop: 02/18/20 11:59 Last Admin: 02/14/20 03:25 Dose: 2 mls/min Documented by: Insulin Aspart (Insulin Aspart 100 Units/Ml 3 Ml Pen) 0 units SC ACHS [facility] Stop: 03/11/20 11:59 Last Admin: 02/14/20 09:26 Dose: 5 units Documented by: Insulin Glargine (Insulin Glargine Solostar 100 Units/Ml 3 Ml Pen) 19 units SC QAM [facility] Stop: 03/11/20 11:29 Last Admin: 02/14/20 09:26 Dose: 19 units Documented by: Insulin Human NPH (Insulin Human Nph) 10 units SC DAILY [facility]; Protocol Stop: 03/14/20 08:59 Last Admin: 02/14/20 09:27 Dose: 10 units Documented by: Lactobacillus Acidoph/Casei/Rhamnos (Advanced Probiotic 1250 Mg Capsule) 2 cap PO DAILY [facility] Stop: 03/11/20 10:59 Last Admin: 02/14/20 08:09 Dose: 2 cap Documented by: Levothyroxine Sodium (Levothyroxine Sodium 112 Mcg Tablet) [facility] Stop: 03/15/20 06:29 Last Admin: 02/14/20 06:12 Dose: 112 mcg Documented by: Miscellaneous ([employer] Phos Flur 15 Ml~Order Awaiting Action) 1 ea N/A QS [facility] Stop: 03/11/20 15:59 Last Admin: 02/14/20 08:10 Dose: Not Given Documented by: Miscellaneous (Carbohydrates For Hypoglycemia ) 15 - 30 gm PO UD PRN PRN Reason: Hypoglycemia Treatment Stop: 03/11/20 11:14 Last Admin: 02/13/20 17:21 Dose: 15 gm Documented by: Miscellaneous Information (Pharmacy Glycemic Mgmt Consult) 1 ea N/A UD PRN PRN Reason: Consult Stop: 03/11/20 11:03 Miscellaneous Information (Meropenem Consult Acitve) 1 ea N/A UD PRN PRN Reason: Consult Stop: 03/12/20 11:26 Montelukast Sodium (Montelukast Sodium 10 Mg Tablet) 10 mg PO PM LEONOR Stop: 03/11/20 20:59 Last Admin: 02/13/20 21:08 Dose: 10 mg Documented by: Multivitamins/Minerals (Cerovite Adv Formula Tab) 1 tab PO QAM LEONOR Stop: 03/12/20 08:59 Last Admin: 02/14/20 08:09 Dose: 1 tab Documented by: Ondansetron HCl (Ondansetron Inj 2 Mg/Ml 2 Ml Vial) 4 mg IV Q6H PRN PRN Reason: Nausea Stop: 03/11/20 10:44 Pantoprazole Sodium (Pantoprazole 40 Mg Tab) 40 mg PO QAM LEONOR Stop: 03/11/20 10:59 Last Admin: 02/14/20 08:08 Dose: 40 mg Documented by: Vitamin D (Cholecalciferol 1,000 Units 25 Mcg Tab) 4,000 units PO DAILY LEONOR Stop: 03/12/20 08:59 Last Admin: 02/14/20 08:08 Dose: 4,000 units Documented by: PG Care Time/CCT Total # of Minutes Spent Total Time Spent with Patient: Total time spent is greater than 50% in coordination of care (as documented) at patient's floor/unit and/or counseling patient: Coding Level of Care Code 59139 Subseq Hosp Care Lvl 2 Diagnoses Acute and chronic respiratory failure with hypoxia J96.21 Sepsis A41.9 Aspiration pneumonia J69.0 Aspiration pneumonia type: unspecified Laterality: unspecified laterality Lung location: unspecified part of lung SOM (acute kidney injury) N17.9 Uncontrolled type 1 diabetes mellitus E10.65 Acute metabolic encephalopathy G93.41 Hypothyroidism E03.9 Hypothyroidism type: unspecified GERD (gastroesophageal reflux disease) K21.9 Esophagitis presence: esophagitis presence not specified Seizure disorder G40.909 Dementia F03.90 Dementia type: unspecified type Dementia behavioral disturbance: without behavioral disturbance Chronic obstructive pulmonary disease J44.9 COPD type: unspecified COPD Down syndrome Q90.9 DVT prophylaxis Z29.9 (1) Aspiration pneumonia Aspiration pneumonia type: unspecified Laterality: unspecified laterality Lung location: unspecified part of lung Qualified Code(s): J69.0 - Pneumonitis due to inhalation of food and vomit (2) Hypothyroidism Hypothyroidism type: unspecified Qualified Code(s): E03.9 - Hypothyroidism, unspecified (3) GERD (gastroesophageal reflux disease) Esophagitis presence: esophagitis presence not specified Qualified Code(s): K21.9 - Gastro-esophageal reflux disease without esophagitis (4) Dementia Dementia type: unspecified type Dementia behavioral disturbance: without behavioral disturbance Qualified Code(s): F03.90 - Unspecified dementia without behavioral disturbance (5) Chronic obstructive pulmonary disease COPD type: unspecified COPD Qualified Code(s): J44.9 - Chronic obstructive pulmonary disease, unspecified
[2020-02-14] MEDS: MONTELUKAST SODIUM 10 MG TABLET PO SCH (20:49)
[2020-02-14] MEDS: ATORVASTATIN 10 MG TAB PO SCH (20:49)
[2020-02-15] MEDS: HEPARIN SOD 5,000 UNIT/0.5 ML VIAL SQ SCH ×3 (06:01→21:08)
[2020-02-15] MEDS: LEVOTHYROXINE SODIUM 112 MCG TABLET PO SCH (06:39)
[2020-02-15] MEDS: ACETYLCYSTEINE 20% INHAL SOLN 4ML ***DISPENSED BY RESP. INH SCH ×2 (07:21→19:45)
[2020-02-15] MEDS: ALBUT/IPRATROP 3MG/0.5MG NEB 3 ML VIAL NEB SCH ×2 (07:21→19:50)
[2020-02-15] MEDS: CITALOPRAM 40 MG TAB PO SCH (07:48)
[2020-02-15] MEDS: ASPIRIN 81 MG ECTAB PO SCH (07:48)
[2020-02-15] MEDS: FLUTICASONE/VILANTEROL 100/25MCG 14 PUFFS/INHALER INH SCH (07:48)
[2020-02-15] MEDS: CEROVITE ADV FORMULA TAB PO SCH (07:49)
[2020-02-15] MEDS: ADVANCED PROBIOTIC 1250 MG CAPSULE PO SCH (07:49)
[2020-02-15] MEDS: CALCIUM CARBONATE 1250MG TAB PO SCH ×3 (07:49→21:11)
[2020-02-15] MEDS: ERTAPENEM SODIUM 1,000 MG in SODIUM CHLORIDE 0.9% 50 ML IV SCH (07:50)
[2020-02-15] MEDS: CHOLECALCIFEROL 1,000 UNITS 25 MCG TAB PO SCH (07:50)
[2020-02-15] MEDS: PANTOprazole 40 MG TAB PO SCH (07:50)
[2020-02-15] MEDS: INSULIN HUMAN NPH SC SCH (08:10)
[2020-02-15] MEDS: INSULIN GLARGINE SOLOSTAR 100 UNITS/ML 3 ML PEN SC SCH (08:10)
[2020-02-15] MEDS: INSULIN ASPART 100 UNITS/ML 3 ML PEN SC SCH ×4 (08:10→21:07)
--- NOTE | 2020-02-15 08:12 | Hospitalist Progress Note ---
Date of Service February 15, 2020 Assessment & Plan (1) Acute and chronic respiratory failure with hypoxia: Patient with chronic hypoxic resp failure on home O2, 4 liters. Has metal trach and [place] H[place] [facility] [place] Acute component 2nd to aspiration pneumonia and COPD exacerbation. clinically resolved, on 4L, no distress, given period of unresponsiveness will eval for decline in status over the next 24 hours due to recurrend aspiration possibility during event Continue IV antibiotics, change to Ertapenem will reduce prednisone 02/16/20 to her typical 10 mg a day (2) Sepsis: 2nd to pneumonia, likely aspiration. h/o same on numerous occurrences. BPs have stabilized/normalized. Evidence of SOM/sepsis-associated ATN. Blood cx's thus far negative. Cont IV antibiotics for weekend, change to Ertapenem will arrange for out pt treatments for completeion of Ertepenem and sushma will only need one dose of levaquin due to q 48 hour dosing last day of treatment would be 02/17, so she would need Ertapenem for 3 days (3) Aspiration pneumonia: History of multiple episodes of such in the past. Prior trach aspirates have grown ESBL e.coli - sensitive to pip/tazo, carbap enems, etc. Pharmacy advises changing zosyn to meropenem. completed several days of meropenem, will change to Ertapenem for convenience of once a day dosing Cont levaquin for atypical coverage and double coverage of other potential gram negatives. no growth on blood culture, unfortunately sputum cultures were not obtained breathing comfortably, no significant cough on exam, even after hypoglycemic event Patient is well known to our speech department. She is a known aspirator. PEG tube has been deferred in the past because Valorie gets much abner from eating her favorite foods, etc. [place] thick liquids. Minced/moist diet. (4) SOM (acute kidney injury): Likely sepsis-associated ATN. RESOLVED. Stop IVF. (5) Uncontrolled type 1 diabetes mellitus: Last HBA1C in 12/2019 was >7%. She uses insulin pump at her half-way. Our pharmacy glycemic team knows Valorie well. Appreciate pharmacy glycemic consult. Cont basal/bolus SC regimen and NPH likely involved in hypoglycemic event this was stopped 02/14 monitor for hypoglycemia, had some episodes over night, now resolved, no sy mptoms (6) Acute metabolic encephalopathy: 2nd to sepsis. Resolved. MS back to baseline 24 hours after admission (7) Hypothyroidism: All TSH levels in the last 2 years have showed suppressed levels. FT4 levels have been normal. will reduce her dose of synthroid to 112mcg daily. (8) GERD (gastroesophageal reflux disease): Continue PPI. (9) Seizure disorder: Not on meds for such. she was having some jerking movement of arms and legs with hypoglycemia, but with rapid recovery did not use ativan reviewed the paper chart from the half-way including med rec - she is not on seizure meds. (10) Dementia: Noted (11) Chronic obstructive pulmonary disease: With exacerbation. Continue mucomyst nebs BID for clearance of secretions. Continue bronchodilators - change to duonebs and make QID. Med rec from half-way paper chart reviewed - Valorie IS ON 10mg of prednisone DAILY / CHRONICALLY. reduce prednisone to typical home med (12) Down syndrome: With resulting intellectual disability. Now with memory loss/dementia by report. Resides in local half-way -- the "[facility]" (13) DVT prophylaxis: Heparin 5000 BID shelter nurse brought her records and showed me the pt's POLST form. This indicates DNR. Admission and Anticipated Discharge Date Admission Date: February 10, 2020 Subjective this pt had a significant hypoglycemic event this afternoon this is influenced by NPH insulin covering for steroid induced hyperglycemia, she was rescued by IV D50 and IV glucagon, she had complete return to her baseline, during the event she did have some Jerking movements that were possibly thought to be seizures but she was also able to track and interact, as she recovered quickly she was not given ativan for seizures as was immediately ordered( this was due to her rapid recovery) Initially it was thought that today maybe a discharge opportunity now with this event will asses for worsening of pulmonary status that occurred while she was obtunded Review of Systems Review of Systems: Unobtainable due to cognitive status Physical Exam Physical Exam: The patient appeared with typical changes of downs syndrome, she however during her event was unresponsive Vital signs as documented. Head exam is normocephalic atraumatic no scleral icterus Neck is without JVD, thyromegaly, or carotid bruits. Lungs are diminished with basilar rales Cardiac exam, Rhythm is regular.. No murmurs, rubs or gallops. Abdominal exam reveals normal bowel sounds, soft non tender, no masses Extremities are nonedematous and both pedal pulses are present Neurologic exam is alert and follows commands once rescued from hypoglycemia Skin is without bruises or rashes Results & Data Results & Data ([facility]) Vital Signs (Past 12 Hours) Vital Signs Temp Pulse Resp BP Pulse Ox 02/15/20 07:22 67 20 97 02/15/20 07:17 97.3 F L 61 18 98/69 L 97 02/15/20 00:24 77 16 98 02/15/20 00:21 96 02/15/20 00:09 97.9 F 82 19 133/87 PG Care Time/CCT Total # of Minutes Spent Total Time Spent with Patient: Total time spent is greater than 50% in coordination of care (as documented) at patient's floor/unit and/or counseling patient: Coding Level of Care Code 35359 Subseq Hosp Care Lvl 3 Diagnoses Acute and chronic respiratory failure with hypoxia J96.21 Sepsis A41.9 Aspiration pneumonia J69.0 Aspiration pneumonia type: unspecified Laterality: unspecified laterality Lung location: unspecified part of lung SOM (acute kidney injury) N17.9 Uncontrolled type 1 diabetes mellitus E10.65 Acute metabolic encephalopathy G93.41 Hypothyroidism E03.9 Hypothyroidism type: unspecified GERD (gastroesophageal reflux disease) K21.9 Esophagitis presence: esophagitis presence not specified Seizure disorder G40.909 Dementia F03.90 Dementia behavioral disturbance: without behavioral disturbance Dementia type: unspecified type Chronic obstructive pulmonary disease J44.9 COPD type: unspecified COPD Down syndrome Q90.9 DVT prophylaxis Z29.9 (1) Dementia Dementia behavioral disturbance: without behavioral disturbance Dementia type: unspecified type Qualified Code(s): F03.90 - Unspecified dementia without behavioral disturbance (2) Hypothyroidism Hypothyroidism type: unspecified Qualified Code(s): E03.9 - Hypothyroidism, unspecified (3) Aspiration pneumonia Aspiration pneumonia type: unspecified Laterality: unspecified laterality Lung location: unspecified part of lung Qualified Code(s): J69.0 - Pneumonitis due to inhalation of food and vomit (4) Chronic obstructive pulmonary disease COPD type: unspecified COPD Qualified Code(s): J44.9 - Chronic obstructive pulmonary disease, unspecified (5) GERD (gastroesophageal reflux disease) Esophagitis presence: esophagitis presence not specified Qualified Code(s): K21.9 - Gastro-esophageal reflux disease without esophagitis
[2020-02-15] MEDS: HEPARIN 100 UNIT/ML 5ML FLUSH FLUSH PRN ×2 (08:39→23:34)
[2020-02-15] MEDS ORDERED: predniSONE 20 MG TAB PO SCH (09:00)
--- NOTE | 2020-02-15 09:02 | Pharmacy Report ---
Pharmacy Glycemic Short Note 2 - Date of Service February 15, 2020 - Glycemic Short BSG Results (Last 24 hours): 02/14/20 02/14/20 02/14/20 11:34 16:46 20:36 POC Glucose 201 H 90 209 H 02/15/20 07:42 POC Glucose 80 OUTPATIENT ANTIDIABETIC REGIMEN: From most recent visit, December 2019 * NovoLog insulin pump * Total basal dose ~ 20 units/day * CHO ratio: with BF/lunch/dinner respectively * CF = 40 * Total daily dose 50 units HbA1c: 8.3% (12/24/19) ASSESSMENT: 02/15/20 * BSGs yesterday of 108, 201, 90, and 209 mg/dL * Patient received 48 units of insulin yesterday * 29 units of basal and 19 units of prandial/correctional * Steroids changed from Solu-medrol to prednisone 20 mg PO daily to start today * Continue currently ordered NPH 10 units daily w/ prednisone * Will lower the lower end of goal range to 100 mg/dL, as patient tends to subsequently go hyperglycemic when insulin is subtracted off per calculator 02/10/20 * TR is a 54 year old type 1 diabetic well known to the pharmacy glycemic service * Patient presented from her longterm with acute on chronic respiratory failure * Confirmed with RN that insulin pump will be removed - will initiate SC basal/bolus * Dexamethasone 6 mg IV x 1 given in ED followed by Solu-medrol 20 mg IV BID * Ordered 0.2 unit/kg dose (12 units) of NPH x 1 * Will start with Lantus 19 units based on previous admission data and pump settings * Ordered broad spectrum antibiotics with Zosyn and Levaquin * [place] thickened regular diet ordered PLAN FOR INPATIENT GLYCEMIC CONTROL: * Hold outpatient oral diabetes medications * Basal insulin - continue * Lantus 19 units SC daily in AM * continue NPH 10 units SC daily to cover once daily prednisone * Bolus insulin: adjust goal range * NovoLog per scale ACHS or Q6hrs while NPO * Goal Range: Low 100 mg/dL - High 180 mg/dL * Correction Factor: 30 mg/dL/unit * Nutritional / Prandial insulin per carb ratio of 1 unit per 7 grams CHO consumed
[2020-02-15] MEDS: DOCUSATE SODIUM 100 MG CAP PO SCH ×2 (10:55→21:15)
[2020-02-15] MEDS: ACETAMINOPHEN 325 MG TAB PO PRN (13:13)
[2020-02-15] MEDS ORDERED: LORazepam 2 MG/4 ML VIAL ONE (14:57)
[2020-02-15] MEDS: CARBOHYDRATES FOR HYPOGLYCEMIA PO PRN ×2 (16:45→17:10)
[2020-02-15] MEDS: ATORVASTATIN 10 MG TAB PO SCH (21:11)
[2020-02-15] MEDS: MONTELUKAST SODIUM 10 MG TABLET PO SCH (21:11)
[2020-02-16] MEDS: HEPARIN SOD 5,000 UNIT/0.5 ML VIAL SQ SCH ×2 (06:15→12:12)
[2020-02-16] MEDS: LEVOTHYROXINE SODIUM 112 MCG TABLET PO SCH (06:15)
[2020-02-16] MEDS: ACETYLCYSTEINE 20% INHAL SOLN 4ML ***DISPENSED BY RESP. INH SCH (07:29)
[2020-02-16] MEDS: ALBUT/IPRATROP 3MG/0.5MG NEB 3 ML VIAL NEB SCH (07:29)
[2020-02-16] MEDS: ERTAPENEM SODIUM 1,000 MG in SODIUM CHLORIDE 0.9% 50 ML IV SCH (07:51)
[2020-02-16] MEDS: FLUTICASONE/VILANTEROL 100/25MCG 14 PUFFS/INHALER INH SCH (07:55)
[2020-02-16] MEDS: CALCIUM CARBONATE 1250MG TAB PO SCH ×2 (07:56→12:12)
[2020-02-16] MEDS: CEROVITE ADV FORMULA TAB PO SCH (07:56)
[2020-02-16] MEDS: CITALOPRAM 40 MG TAB PO SCH (07:56)
[2020-02-16] MEDS: ADVANCED PROBIOTIC 1250 MG CAPSULE PO SCH (07:56)
[2020-02-16] MEDS: CHOLECALCIFEROL 1,000 UNITS 25 MCG TAB PO SCH (07:57)
[2020-02-16] MEDS: PANTOprazole 40 MG TAB PO SCH (07:57)
[2020-02-16] MEDS: INSULIN ASPART 100 UNITS/ML 3 ML PEN SC SCH ×2 (08:06→12:11)
[2020-02-16] MEDS: levoFLOXacin/D5W 750 MG/150 ML BAG IV SCH (08:30)
[2020-02-16] MEDS: INSULIN GLARGINE SOLOSTAR 100 UNITS/ML 3 ML PEN SC SCH (08:35)
--- NOTE | 2020-02-16 08:49 | Pharmacy Report ---
Pharmacy Glycemic Short Note 2 - Date of Service February 16, 2020 - Glycemic Short BSG Results (Last 24 hours): 02/15/20 02/15/20 02/15/20 10:54 11:50 14:54 POC Glucose 74 81 18 L* 02/15/20 02/15/20 02/15/20 14:55 15:03 16:41 POC Glucose 26 L* 203 H 56 L* 02/15/20 02/15/20 02/15/20 16:42 17:04 17:05 POC Glucose 55 L* 57 L* 57 L* 02/15/20 02/15/20 02/16/20 17:25 20:13 00:02 POC Glucose 96 248 H 279 H 02/16/20 07:54 POC Glucose 130 H OUTPATIENT ANTIDIABETIC REGIMEN: From most recent visit, December 2019 * NovoLog insulin pump * Total basal dose ~ 20 units/day * CHO ratio: with BF/lunch/dinner respectively * CF = 40 * Total daily dose 50 units HbA1c: 8.3% (12/24/19) ASSESSMENT: 02/16/20 * Unfortunately, patient had significant hypoglycemic event yesterday (BSG of 18 mg/dL w/ seizure activity) * Steroids were changed from IV methylprednisolone to prednisone 20 mg PO daily yesterday (NPH dose was kept at 0.2 unit/kg) * Prednisone dose lowered today to 10 mg PO daily - will discontinue NPH and only give Lantus * Lower end of goal range increased back to 120 mg/dL, as this may have contributed to hypoglycemic event 02/15/20 * BSGs yesterday of 108, 201, 90, and 209 mg/dL * Patient received 48 units of insulin yesterday * 29 units of basal and 19 units of prandial/correctional * Steroids changed from Solu-medrol to prednisone 20 mg PO daily to start today * Continue currently ordered NPH 10 units daily w/ prednisone * Will lower the lower end of goal range to 100 mg/dL, as patient tends to subsequently go hyperglycemic when insulin is subtracted off per calculator 02/10/20 * TR is a 54 year old type 1 diabetic well known to the pharmacy glycemic service * Patient presented from her [facility] with acute on chronic respiratory failure * Confirmed with RN that insulin pump will be removed - will initiate SC basal/bolus * Dexamethasone 6 mg IV x 1 given in ED followed by Solu-medrol 20 mg IV BID * Ordered 0.2 unit/kg dose (12 units) of NPH x 1 * Will start with Lantus 19 units based on previous admission data and pump settings * Ordered broad spectrum antibiotics with Zosyn and Levaquin * Gracey thickened regular diet ordered PLAN FOR INPATIENT GLYCEMIC CONTROL: * Hold outpatient oral diabetes medications * Basal insulin - decrease * Lantus 19 units SC daily in AM * discontinue NPH * Bolus insulin: * NovoLog per scale ACHS or Q6hrs while NPO * Goal Range: Low 120 mg/dL - High 180 mg/dL * Correction Factor: 30 mg/dL/unit * Nutritional / Prandial insulin per carb ratio of 1 unit per 8 grams CHO consumed
[2020-02-16] MEDS ORDERED: predniSONE 10 MG TABLET PO SCH (09:00)
[2020-02-16] MEDS: HEPARIN 100 UNIT/ML 5ML FLUSH FLUSH PRN (10:24)
[2020-02-16] MEDS: DOCUSATE SODIUM 100 MG CAP PO SCH (12:12)
--- NOTE | 2020-02-16 18:55 | Discharge Summary ---
Date of Service February 16, 2020 Admission HPI Per Admitting Provider 54yo Female - well known to the hospitalist service - with Down's Syndrome, T1DM on insulin pump, chronic hypoxic respiratory failure on 4 L NC via tracheostomy, hypothyroidism, and chronic aspiration - presenting from her [facility] with hypoxia down to the low 70s discovered this am about 5am. An albuterol neb was administered, she was suctioned with some mucous plugging obtained, and also given phenergan as she told staff she had nausea. She has been altered since that time with increased somnolence. A [facility] RN was at bedside during the encounter and provided all history. By report Valorie had been in her usual state of health and also at neuropsychiatric baseline the last few days. There are 2 other residents that reside at the [facility]. No COVID has been detected amongst staff members or residents over the last 2-3 weeks (there was a worker in early December with COVID who has tested negative since then). No other infections - especially respiratory - amongst the residents or staff members over the last week. She does continue to intermittently cough with eating/drinking. The patient is on an insulin pump and remains on such during the ER visit. BSG was in the 70s early this am at the [facility]. Upon arrival Valorie was hypotensive and is receiving 30cc/kg of NS for sepsis. COVID PCR was negative. Lactate was negative. Received IV vancomycin, IV levaquin, and IV pip/tazo in the ER for suspected aspiration pneumonia. Principal Diagnosis aspiration pneumonia Discharge Exam The patient appeared to resume her usual state Vital signs as documented. Lungs are coarse, has trache in place Cardiac exam, Rhythm is regular.. No murmurs, rubs or gallops. Abdominal exam reveals normal bowel sounds, soft non tender, no masses Extremities are nonedematous and both pedal pulses are normal. Neurologic exam is alert and follow commands Skin is without bruises or rashes Psychologically is without concerns for anxiety or depression. Discharge Data Allergies Allergy/AdvReac Type Severity Reaction Status Date / Time cefaclor Allergy Intermediate HIVES Verified 02/10/20 07:13 Cephalosporins Allergy Intermediate rash per Verified 02/10/20 07:13 mother sertraline AdvReac Mild INTOLERANCE Verified 02/10/20 07:13 Consultations 02/10/20 07:46 ED Decision to Admit Stat Hospital Course (1) Acute and chronic respiratory failure with hypoxia: Patient with chronic hypoxic resp failure on home O2, 4 liters. Has metal trach and follows with HILARIO Chavez, [facility]. Acute component 2nd to aspiration pneumonia and COPD exacerbation. clinically resolved, no distress, given period of unresponsiveness will eval for decline in status over the next 24 hours due to recurrend aspiration possibility during event Continue IV antibiotics, change to Ertapenem finish course as outpt will reduce prednisone 02/16/20 to her typical 10 mg a day (2) Sepsis: 2nd to pneumonia, likely aspiration. h/o same on numerous occurrences. BPs have stabilized/normalized. Evidence of SOM/sepsis-associated ATN. Blood cx's thus far negative. will arrange for out pt treatments for completion of Ertepenem and likely will only need one dose of levaquin due to q 48 hour dosing last day of treatment would be 02/17, (3) Aspiration pneumonia: History of multiple episodes of such in the past. Prior trach aspirates have grown ESBL e.coli - sensitive to pip/tazo, carbapenems, etc. Pharmacy advises changing zosyn to meropenem. completed several days of meropenem, will change to Ertapenem for convenience of once a day dosing Cont levaquin for atypical coverage and double coverage of other potential gram negatives. no growth on blood culture, unfortunately sputum cultures were not obtained breathing comfortably, no significant cough on exam, even after hypoglycemic event Patient is well known to our speech department. She is a known aspirator. PEG tube has been deferred in the past because Valorie gets much abner from eating her favorite foods, etc. [place] thick liquids. Minced/moist diet. (4) SOM (acute kidney injury): Likely sepsis-associated ATN. RESOLVED. Stop IVF. (5) Uncontrolled type 1 diabetes mellitus: Last HBA1C in 12/2019 was >7%. She uses insulin pump at her [facility]. monitor for hypoglycemia, had some episodes over night, now resolved, no symptoms (6) Acute metabolic encephalopathy: 2nd to sepsis. Resolved. MS back to baseline 24 hours after admission (7) Hypothyroidism: All TSH levels in the last 2 years have showed suppressed levels. FT4 levels have been normal. (8) GERD (gastroesophageal reflux disease): Continue PPI. (9) Seizure disorder: Not on meds for such. she was having some jerking movement of arms and legs with hypoglycemia, but with rapid recovery did not use ativan reviewed the paper chart from the [facility] including med rec - she is not on seizure meds. (10) Dementia: Noted (11) Chronic obstructive pulmonary disease: With exacerbation. Continue mucomyst nebs BID for clearance of secretions. Continue bronchodilators - change to duonebs and make QID. Med rec from [facility] paper chart reviewed - Valorie IS ON 10mg of prednisone DAILY / CHRONICALLY. reduce prednisone to typical home med (12) Down syndrome: With resulting intellectual disability. Now with memory loss/dementia by report. Resides in local [facility] -- the "[facility]" Total Time Total Time Spent Total Time Spent (In Minutes): It required greater than 30 minutes to prepare this patient for discharge Discharge Plan Discharge Items Patient Disposition: Home - Home Health Services Reason For Visit: ACUTE/CHRONIC HYPOXIC RESP FAILURE,ASPIRATION PREC Discharge Diagnosis: acute hypoxic respiratory faiure secondary to acute on chronic aspiration pneumonia Activity: Resume your previous activity Non-emergency contact: Primary Care Provider Call non-emergency contact if: you have any medication questions Follow-up/Referrals: ProVladimir MD [Primary Care Provider] - 02/18/20 2:15 pm Diet: Regular Diet Texture: Easy to Chew Diet Comment: aspiration precautions Addtl Attending Provider Instructions: this pt is a very high risk for aspiration, please encourage her to eat slowly , swallow completely and sit upright when eating. Even with the best of care she will aspirate and return in the future with another pneumonia event continue with routine trache care adn oxygen Pending Studies at Discharge: No Stand-Alone Forms: My [facility] [place], Smoking Cessation Medications and DC Order Prescriptions: New ertapenem 1 gram recon soln 1 g IV DAILY Qty: 2 RF: 0 Continued promethazine 12.5 mg tablet 12.5 mg PO Q8 PRN (Reason: nausea and vomiting) Qty: 30 RF: 3 fluconazole 150 mg tablet 150 mg PO DAILY PRN (Reason: candidiasis) Qty: 7 RF: 1 calcium carbonate [Oyster Shell Calcium 500] 500 mg calcium (1,250 mg) tablet 500 mg PO TID Qty: 270 RF: 3 Novolog U-100 Insulin aspart 100 unit/mL solution 70 units subcut .COMPLEX 90 Days Qty: 70 RF: 3 atorvastatin 10 mg tablet 10 mg PO HS Qty: 90 RF: 3 Breo Ellipta 100-25 mcg/dose blister with device 1 inh INHALATION DAILY Qty: 1 RF: 5 prednisone 10 mg tablet 10 mg PO DAILY Qty: 30 RF: 5 sodium chloride 0.9 % Solution 273 ml IV BID Qty: 59858 RF: 5 citalopram 40 mg tablet 40 mg PO QAM Qty: 30 RF: 5 fexofenadine [Allergy Relief (fexofenadine)] 180 mg tablet 180 mg PO HS Qty: 30 RF: 5 montelukast 10 mg tablet 10 mg PO PM Qty: 30 RF: 5 levothyroxine 125 mcg tablet 125 mcg PO DAILY Qty: 90 RF: 3 sulfamethoxazole-trimethoprim [Bactrim DS] 800-160 mg tablet 1 tab PO .COMPLEX RF: 0 omeprazole 20 mg capsule,delayed release(DR/EC) 20 mg PO QAM RF: 0 albuterol sulfate [Ventolin HFA] 90 mcg/actuation HFA aerosol inhaler 2 puff INH QID PRN (Reason: shortness of breath or wheezing) Qty: 18 RF: 5 hydrochlorothiazide 25 mg tablet 12.5 mg PO QAM Qty: 30 RF: 1 (DME) Easy Touch FlipLock Insulin 1 mL 29 gauge x 1/2" syringe See Rx Instructions .ROUTE .MEDSUPPLY Qty: 500 RF: 0 (DME) Quick-Set Paradigm infusion set See Dose Instructions .ROUTE .MEDSUPPLY RF: 0 (DME) Dexcom G5 Transmitter device See Rx Instructions .ROUTE .MEDSUPPLY Qty: 1 RF: 0 acetylcysteine 200 mg/mL (20 %) solution 4 ml INHALATION BID Qty: 240 RF: 5 aspirin 81 mg tablet,delayed release (DR/EC) 81 mg PO Q2D RF: 0 clotrimazole-betamethasone 1-0.05 % cream 1 appln TOP DAILY PRN (Reason: rash) RF: 0 clotrimazole 1 % Cream 1 applic TOPICAL TID PRN (Reason: .RASH AROUND TRACH) RF: 0 cholecalciferol (vitamin D3) 50 mcg (2,000 unit) Capsule 100 mcg PO DAILY RF: 0 [employer] Phos Flur 15 ml mucous membrane HS RF: 0 acetaminophen [Tylenol] 325 mg Tablet 650 mg PO Q4H MDD 4000MG PRN (Reason: headache or \\fever) RF: 0 Basaglar KwikPen U-100 Insulin 100 unit/mL (3 mL) insulin pen See Rx Instructions SQ DAILY RF: 0 Therems-M 27-0.4 mg Tablet 1 tab PO QAM RF: 0 albuterol sulfate 2.5 mg /3 mL (0.083 %) solution for nebulization 2.5 mg inhalation Q4 PRN (Reason: chest congestion) RF: 0 albuterol sulfate 2.5 mg /3 mL (0.083 %) solution for nebulization 2.5 mg INHALATION BID RF: 0 glucose 4 gram tablet,chewable 4 g PO DAILY MDD until response PRN (Reason: Hypoglycemia) RF: 0 Discharge Orders: Discharge Order (Routine); Ordered 02/16/20 Ordered By: Raz Stewart Admission Data Admit Date/Time: 02/10/20 09:07 Attending Provider: Raz Stewart Admit Provider: Marcell Sage Primary Care Provider: Vladimir Lucio Other Providers: Marcell Sage Other Interventions: Discharge Summary Assessment (RN) Last Done: 02/15/20 14:19 Coding Level of Care Code D/C Day Management >30 mins Diagnoses Acute and chronic respiratory failure with hypoxia J96.21 Sepsis A41.9 Aspiration pneumonia J69.0 Aspiration pneumonia type: unspecified Laterality: unspecified laterality Lung location: unspecified part of lung SOM (acute kidney injury) N17.9 Uncontrolled type 1 diabetes mellitus E10.65 Acute metabolic encephalopathy G93.41 Hypothyroidism E03.9 Hypothyroidism type: unspecified GERD (gastroesophageal reflux disease) K21.9 Esophagitis presence: esophagitis presence not specified Seizure disorder G40.909 Dementia F03.90 Dementia behavioral disturbance: without behavioral disturbance Dementia type: unspecified type Chronic obstructive pulmonary disease J44.9 COPD type: unspecified COPD Down syndrome Q90.9
== END 2020-02-16 14:47 | disposition home health service (06) | DRG 871 ==
LOC: ED 06:15 → SUATTDRO 09:07 → 2S 09:07 → 2N 02-13 14:37